=== PATIENT | female | born 1940 | race African-American/Black ===

== ENCOUNTER 2016-07-30 20:21 | Inpatient (IN) | payer MEDICARE, OTHER ==
[~2016-07-30] VITALS: Ht 160 cm; Wt 94.2 kg
[~2016-07-30 20:21] MED LIST: ALBU18HF IH; ALBU8.5H5 INH; ASPI325T32 PO; BECL8.7A5 INH; DIPH1TAB25 PO; FENO200 PO; FOLI-49 PO; GABA400C PO; HYDR-3498 PO; LANT10002 PO; METO-407 PO; NIFE90TA21 PO; PRED2.5T3 PO; PRED20TA PO; SEVE800T7 PO; SIMV40TA2 PO; SITA25TA3 PO
[2016-07-30] MEDS ORDERED: ASPIRIN 325 MG TAB PO STA (20:46)
[2016-07-30 21:49] LABS: ADD SCAN DIFF NO
[2016-07-30 21:51] LABS: BASOPHILS % 0.7 % (0.0-2.0); EOSINOPHILS % 0.4 % (0.0-7.0); HEMATOCRIT 35.5 % (37.0-47.0); HEMOGLOBIN 11.5 g/dl (12.0-16.0); LYMPHOCYTES # 0.9 10^3/ul (0.8-2.9); LYMPHOCYTES % 15.4 % (15.0-51.0); MEAN CORPUSCULAR HEMOGLOBIN 30.4 pg (29.0-33.0); MEAN CORPUSCULAR HGB CONC 32.4 g/dl (32.0-37.0); MEAN CORPUSCULAR VOLUME 93.9 fl (82.0-101.0); MEAN PLATELET VOLUME 10.9 fl (7.4-10.4); MONOCYTE # 0.2 10^3/ul (0.3-0.9); MONOCYTES % 4.2 % (0.0-11.0); NEUTROPHIL # 4.5 10^3/ul (1.6-7.5); NEUTROPHILS % 78.9 % (39.0-77.0); PLATELET COUNT 223 10^3/UL (140-415); RED BLOOD COUNT 3.78 10^6/ul (4.20-5.40); RED CELL DISTRIBUTION WIDTH 15.2 % (11.5-14.5); WHITE BLOOD COUNT 5.7 10^3/ul (4.8-10.8)
[2016-07-30 22:08] LABS: CREATININE 7.6 mg/dl (0.44-1.00)
[2016-07-30 22:11] LABS: POTASSIUM 5.5 mmol/L (3.5-5.1)
[2016-07-30 22:21] LABS: TROPONIN-I 0.038 ng/ml (0.00-0.12)
[2016-07-30] MEDS ORDERED: ACETAMINOPHEN 325 MG TAB PO PRN (23:00)
[2016-07-30] MEDS ORDERED: ONDANSETRON 4 MG INJ IV PRN (23:00)
--- NOTE | 2016-07-30 23:06 | RADRPT ---
PROCEDURE: Portable chest x-ray. CLINICAL INDICATION: Chest pain. TECHNIQUE: Portable AP view of the chest. COMPARISON: 04/20/2015. FINDINGS: Vascular congestion is stable to slightly increased. There is linear atelectasis in the left upper l bashir. The cardiac silhouette is enlarged. There are aortic calcifications. There is blunting of the left costophrenic angle. There is no pneumothorax. IMPRESSION: 1. Vascular congestion, stable to slightly increased since 04/20/2015. 2. Blunting of the left costophrenic angle, possibly representing prominent epicardial fat, pleural fluid, atelectasis, and/or pneumonia. 3. Enlarged cardiac silhouette and aortic atherosclerosis. RPTAT: HTAR .Cameron Price MD, Date Time Electronically viewed and signed by .Cameron Price MD, on 07/30/2016 23:06 .R/
--- NOTE | 2016-07-30 23:23 | ERA ---
ER Documentation Chief Complaint Date/Time DATE: 07/30/16 TIME: 23:20 Chief Complaint CP started approx 191. Pt has hx mitral valve replacement 2015 HPI This is a 75-year-old female who presents to the emergency room for evaluation of chest pain or shortness of breath. Patient states that she has chest pain and shortness of breath she was started on 7 PM tonight. She was seen at a previous emergency room and was discharged. She states that she does receive dialysis Monday, Monday, Monday and states that she did finish her dialysis on Monday. She states that she was told that she has water on her lungs. She states that her shortness of breath worsened and she came to the ER for evaluation. Her shortness of breath is worse when she lays flat. The chest pain is centralized chest pain with no radiation. ROS All systems reviewed and are negative except as per history of present illness. Medications Home Meds Active Scripts Albuterol Sulfate* (Albuterol Sulfate* HFA) 8.5 Gm Hfa.aer.ad, 1-2 PUFF INH Q4 Y for SHORTNESS OF BREATH, #1 EA Prov:MAG WANG DO 04/21/15 Prednisone* (Prednisone*) 20 Mg Tab, 40 MG PO DAILY for 4 Days, TAB Prov:MAG WANG DO 04/21/15 Reported Medications Albuterol Sulfate* (Ventolin HFA*) 18 Gm Hfa.aer.ad, 2 PUFF IH Q4H Y for WHEEZING AND RESP DISTRESS, EA 05/07/14 Beclomethasone Dip* (Qvar 80*) 7.3 Gm Inha, 1 PUFF INH BID, INH 05/07/14 Prednisone* (Prednisone*) 2.5 Mg Tablet, 2.5 MG PO DAILY, TAB 05/07/14 Hydrocodone Bit-Acetaminophen* ([place]*) 5-325 Mg Tab, 1-2 TAB PO Q4H Y for PAIN , TAB 05/07/14 Lanthanum Carbonate* (Fosrenol*) 1,000 Mg Tab.chew, 1000 MG PO TID W/ MEALS, TAB.CHEW WITH MEALS 05/07/14 Sitagliptin* (Januvia*) 25 Mg Tablet, 25 MG PO DAILY, TAB 05/07/14 Sevelamer Carbonate* (Renvela*) 800 Mg Tablet, 800 MG PO TID, TAB 05/07/14 Simvastatin* (Zocor*) 40 Mg Tablet, 40 MG PO HS, TAB 05/07/14 Nifedipine* (Nifedipine ER*) 90 Mg Tablet.sa, 90 MG PO BID, TAB.SA 05/07/14 Metoprolol Tartrate* (Lopressor*) 100 Mg Tablet, 100 MG PO BID, TAB 05/07/14 Gabapentin* (Neurontin*) 400 Mg Capsule, 800 MG PO HS, CAP 05/07/14 Folic Acid* (Folic Acid*) 1 Mg Tablet, 1 MG PO DAILY, TAB 05/07/14 Fenofibrate* (Fenofibrate*) 200 Mg Cap, 200 MG PO DAILY, CAP 05/07/14 Diphenoxylate Hcl-Atropine* (Lomotil*) 1 Tab Tab, 1 TAB PO Q6H Y for DIARRHEA, TAB 05/07/14 Aspirin* (Aspirin* EC) 325 Mg Tab, 325 MG PO DAILY, TAB 05/07/14 Allergies Allergies: Coded Allergies: No Known Allergy (Unverified , 12/24/15) pt states she has no known allergies PMhx/Soc History of Surgery: Yes (shunt right arm, hernia repair,hysterectomy) Anesthesia Reaction: No ( ) Hx 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 Disorder: No Hx Respiratory Disorders: Yes (sarcoidisis, nodule left lung) Hx Cardiac Disorders: Yes (htn, afib,cad, valve replacement) Hx Psychiatric Problems: No Hx Miscellaneous Medical Probl: No (renal failure w/ dialysis) Hx Alcohol Use: Yes (social) Hx Substance Use: No Hx Tobacco Use: No Smoking Status: Unknown if ever smoked Physical Exam Vitals Vital Signs Date Time Temp Pulse Resp B/P Pulse Ox O2 Delivery O2 Flow Rate FiO2 07/30/16 20:24 98.7 118 18 135/76 93 Physical Exam INITIAL VITAL SIGNS: Reviewed by me GENERAL: The patient is well developed and appropriate for usual state of health in no apparent distress HEENT: Pupils equal, round, and reactive to light. EOMI. There is no scleral icterus. NECK: C-spine is soft and supple, there is no meningismus. There is no cervical lymphadenopathy. LUNGS: Coarse breath sounds bilaterally. There are no rales, wheezes or rhonchi. HEART: Irregularly irregular rhythm, 2/6 holosystolic murmur heard at the left sternal border , clicks, rubs or gallops. ABDOMEN: Soft, non-tender, non-distended. There are bowel sounds in all four quadrants. No rebound or guarding. EXTREMITIES: There is no peripheral cyanosis or edema. No focal swelling or erythema. NEUROLOGICAL: The patient moves all four extremities with 5/5 strength. Cranial nerves II - XII are intact. Normal gait. Alert and oriented SKIN: There is no apparent rash or petechiae. HEME/LYMPHATIC: There is no evidence of excessive bruising or lymphedema. PSYCHIATRIC: The patient does not appear anxious or depressed. Result Diagram: 07/30/16213907/30/162139 Results 24 hrs Laboratory Tests Test 07/30/16 21:40 White Blood Count 5.710^3/ul Red Blood Count 3.7810^6/ul Hemoglobin 11.5g/dl Hematocrit 35.5% Mean Corpuscular Volume 93.9fl Mean Corpuscular Hemoglobin 30.4pg Mean Corpuscular Hemoglobin Concent 32.4g/dl Red Cell Distribution Width 15.2% Platelet Count 10472^3/UL Mean Platelet Volume 10.9fl Neutrophils % 78.9% Lymphocytes % 15.4% Monocytes % 4.2% Eosinophils % 0.4% Basophils % 0.7% Nucleated Red Blood Cells % 0.0/100WBC Neutrophils # 4.510^3/ul Lymphocytes # 0.910^3/ul Monocytes # 0.210^3/ul Eosinophils # 0.010^3/ul Basophils # 0.010^3/ul Nucleated Red Blood Cells # 0.010^3/ul Sodium Level 142mmol/L Potassium Level 5.5mmol/L Chloride Level 103mmol/L Carbon Dioxide Level 29mmol/L Anion Gap 16 Blood Urea Nitrogen 56mg/dl Creatinine 7.60mg/dl Glucose Level 215mg/dl Calcium Level 9.0mg/dl Troponin I 0.038ng/ml B-Type Natriuretic Peptide 31656FC/ML Current Medications Medications (Trade) Dose Ordered Sig/Oneyda Route PRN Reason Start Time Stop Time Status Last Admin Dose Admin Aspirin (Aspirin) 325 mg ONCE STAT PO 07/30/16 20:46 07/30/16 20:48 DC 07/30/16 21:27 Ondansetron HCl (Zofran Inj) 4 mg ER BRIDGE PRN IV NAUSEA AND/OR VOMITING 07/30/16 23:00 07/31/16 22:59 Acetaminophen (Tylenol Tab) 650 mg ER BRIDGE PRN PO MILD PAIN/FEVER 07/30/16 23:00 07/31/16 22:59 Procedures/MDM Chest X-ray 1V Interpreted by me: Soft Tissue: Pulmonary vascular congestion with bilateral pleural effusions Bones: No acute abnormalities Mediastinum/Cardiac Silhouette/Lungs: [No acute abnormalities] EKG: Rate/Rhythm: Atrial fibrillation QRS, ST, T-waves: [No changes consistent w/ acute ischemia] Impression: [No evidence of ischemia or arrhythmia] This 75-year-old female presents to the ER for evaluation of chest pain or shortness of breath. She is a dialysis patient, and did complete dialysis on Monday. This patient has had a mitral valve replacement. When I evaluated her she was tachycardic, had a pulse ox of 91%. This patient was placed on 2 L nasal cannula with resolution of her mild hypoxia. Chest x-ray did confirm my suspicion of pulmonary vascular congestion and pleural effusions. This patient will need to be admitted to the hospital for cardiac workup, and for dialysis for removal of excess fluid. She is in no respiratory distress at this time. I have updated the patient and the patient's family. This patient will be admitted under the care of Dr. Welsh. Atrial fibrillation is rate controlled and she is on Coumadin. Departure Diagnosis: Primary Impression: Chest pain Additional Impressions: Bilateral pleural effusion Hypertension associated with chronic kidney disease due to type 2 diabetes mellitus Diabetes mellitus type 2 in obese Condition: Stable VICKEY FAULKNER DO Jul 30, 2016 23:23
[2016-07-30 23:28] LABS: INR 3.12; PT RATIO 2.5
[2016-07-30 23:29] LABS: PARTIAL THROMBOPLASTIN TIME 46.1 Sec (25.0-35.0)
[2016-07-31] VITALS (22 sets, daily range): BP systolic 80–154; BP diastolic 38–74; PULSE 74–104; RESP 18–20; Ht 160 cm; Wt 94.2 kg
[2016-07-31] MEDS ORDERED: BISACODYL (EC) 5 MG TAB PO PRN
[2016-07-31] MEDS ORDERED: ONDANSETRON 4 MG INJ IV PRN
[2016-07-31] MEDS ORDERED: NACL 0.9% 3 ML SYG IV SCH
[2016-07-31] MEDS ORDERED: DOCUSATE SODIUM 100 MG CAP PO PRN
[2016-07-31] MEDS ORDERED: BISACODYL 10 MG SUPP PR PRN
[2016-07-31] MEDS ORDERED: ALBUTEROL 0.083% (NEB) 2.5 MG/3 ML AMP NEB PRN
[2016-07-31] MEDS ORDERED: NA PHOSPHATE/BIPHOS 133 ML ENEMA PR PRN
[2016-07-31] MEDS ORDERED: HYDROCODONE/APAP (5/325) TAB PO PRN
[2016-07-31] MEDS ORDERED: DIPHENOXYLATE/ATROPINE TAB PO PRN
[2016-07-31 00:06] LABS: PROTIME 32.7 Sec (12.2-14.2)
[2016-07-31] MEDS ORDERED: GLUCOSE GEL 15 GRAM TUBE PO PRN ×2 (00:30)
[2016-07-31] MEDS ORDERED: GLUCOSE GEL 15 GRAM TUBE BUCCAL PRN (00:30)
[2016-07-31] MEDS ORDERED: DEXTROSE 50% 50 ML SYRINGE IV PRN ×2 (00:30)
[2016-07-31] MEDS ORDERED: GLUCAGON 1 MG INJ IM PRN (00:30)
[2016-07-31] MEDS: ACCUCHECK AT 2AM (Patients on SS coverage) XX SCH (01:35)
[2016-07-31] MEDS: HYDROmorphONE 1 MG/ML SYG IV PRN (02:20)
[2016-07-31 03:49] LABS: ADD SCAN DIFF NO
[2016-07-31 03:51] LABS: BASOPHILS % 0.6 % (0.0-2.0); EOSINOPHILS % 0.6 % (0.0-7.0); HEMATOCRIT 32.7 % (37.0-47.0); HEMOGLOBIN 10.7 g/dl (12.0-16.0); LYMPHOCYTES # 1.8 10^3/ul (0.8-2.9); LYMPHOCYTES % 27.4 % (15.0-51.0); MEAN CORPUSCULAR HEMOGLOBIN 30.3 pg (29.0-33.0); MEAN CORPUSCULAR HGB CONC 32.7 g/dl (32.0-37.0); MEAN CORPUSCULAR VOLUME 92.6 fl (82.0-101.0); MEAN PLATELET VOLUME 10.9 fl (7.4-10.4); MONOCYTE # 0.5 10^3/ul (0.3-0.9); MONOCYTES % 6.8 % (0.0-11.0); NEUTROPHIL # 4.2 10^3/ul (1.6-7.5); NEUTROPHILS % 64.3 % (39.0-77.0); PLATELET COUNT 203 10^3/UL (140-415); RED BLOOD COUNT 3.53 10^6/ul (4.20-5.40); RED CELL DISTRIBUTION WIDTH 15.1 % (11.5-14.5); WHITE BLOOD COUNT 6.6 10^3/ul (4.8-10.8)
[2016-07-31 04:22] LABS: ALBUMIN 3.4 g/dl (3.3-4.9)
[2016-07-31 04:23] LABS: POTASSIUM 5.7 mmol/L (3.5-5.1)
[2016-07-31 04:25] LABS: ALBUMIN/GLOBULIN RATIO 0.94; CREATININE 8.5 mg/dl (0.44-1.00)
[2016-07-31 04:26] LABS: CHOL/HDL RATIO 1.6 RATIO; PHOSPHORUS 7.2 mg/dl (2.5-4.9)
[2016-07-31 04:32] LABS: CK-MB 1.67 ng/ml (0.0-2.4)
[2016-07-31 04:36] LABS: TROPONIN-I 0.064 ng/ml (0.00-0.12)
[2016-07-31] MEDS ORDERED: ALBUTEROL/IPRATROPIUM (NEB) 3 ML AMP HHN PRN (06:30)
[2016-07-31] MEDS ORDERED: COU2 PO (06:50)
[2016-07-31] MEDS: INSULIN ASPART [NOVOLOG] 3 ML PEN SC SCH ×4 (08:00→21:00)
[2016-07-31] MEDS: MOMETASONE 0.24 GM INHALER INH SCH ×2 (08:47→21:35)
[2016-07-31] MEDS: HYDROCODONE/APAP (5/325) TAB PO PRN ×2 (08:48→19:33)
[2016-07-31] MEDS: FENOFIBRATE 48 MG TAB PO SCH (08:48)
[2016-07-31] MEDS: LINAGLIPTIN 5 MG TABLET PO SCH (08:48)
[2016-07-31] MEDS: predniSONE 10 MG TAB PO SCH (08:48)
[2016-07-31] MEDS: FOLIC ACID 1 MG TAB PO SCH (08:48)
[2016-07-31] MEDS: LANTHANUM 500 MG CHEW PO SCH ×3 (09:00→17:32)
[2016-07-31] MEDS ORDERED: HEPARIN 5,000 UNIT/0.5 ML VIAL SC SCH (09:00)
[2016-07-31] MEDS ORDERED: NIFEdipine (XL) 90 MG TAB PO SCH (09:00)
[2016-07-31] MEDS ORDERED: METOPROLOL 100 MG TAB PO SCH (09:00)
[2016-07-31] MEDS ORDERED: predniSONE 20 MG TAB PO SCH (09:00)
[2016-07-31] MEDS ORDERED: predniSONE 2.5 MG TAB PO SCH (09:00)
[2016-07-31] MEDS ORDERED: SEVELAMER CARBONATE 0.8 GM PKT PO SCH (09:00)
[2016-07-31] MEDS: NIFEdipine (XL) 90 MG TAB PO SCH (09:00)
[2016-07-31] MEDS ORDERED: LANTHANUM CARBONATE 1,000 MG CHEW PO SCH (09:00)
[2016-07-31] MEDS ORDERED: ASPIRIN (EC) 325 MG TAB PO SCH (09:00)
[2016-07-31] MEDS: METOPROLOL (XL) 25 MG TAB PO SCH ×2 (09:00→21:35)
[2016-07-31] MEDS ORDERED: BECLOMETHASONE DIP INH SCH (09:00)
--- NOTE | 2016-07-31 10:38 | CONS ---
DATE OF ADMISSION: 07/30/2016 DATE OF CONSULTATION: 07/31/2016 NEPHROLOGY CONSULTATION PRIMARY PHYSICIAN: Dr. Welsh Thank you very much, Dr. Welsh, for allowing me to participate in the care of your patient. HISTORY OF PRESENT ILLNESS: This is a 75-year-old female with known end-stage renal disease due to diabetes and hypertension, currently maintained on outpatient hemodialysis every Monday, Monday, and Monday, who is now admitted with atypical chest pain and shortness of breath. As stated, the patient is on chronic dialysis and is compliant. Her last treatment was 2 days ago o n Monday, but it is unclear if she reached her dry weight. Yesterday she presented to the [place] ER with some vague chest pain. The ER doctor called me. He felt she was stable to be discharged. She then presented later that same day, yesterday, to the [facility] ER again complaining o f atypical chest pain associated with some shortness of breath. Chest x-ray here in the ER last night did show findings consistent with pulmonary edema. Laboratori es revealed no leukocytosis, hemoglobin of 10.7, and potassium of 5.7. Liver tests were normal. Troponin was unremarkable as was electrocardiogram. It should be noted, the patient is status post a recent TAVR procedure for aortic stenosis over at [facility] in March of last year and as well has relatively new onset atrial fibrillation, rate contro lled and maintained on outpatient Coumadin. She currently is on the floor in no acute distress but requiring nasal O2 to keep her sats in the mi d 90s. PAST MEDICAL HISTORY: Please see full dictated problem list. ALLERGIES: NONE. HABITS: Tobacco: None. Alcohol: None. CURRENT MEDICATIONS: 1. Aspirin given once. She does take daily aspirin 325 mg a day. 2. Lipitor 40 mg a day. 3. Tricor 48 mg a day. 4. Folic acid 1 mg a day. 5. Gabapentin 800 mg at bedtime. 6. Fosrenol 1000 mg t.i.d. with meals. 7. Tradjenta 5 mg daily. 8. Metoprolol 25 mg b.i.d. None on dialysis days. 9. Nifedipine 90 mg daily. None on dialysis days. 10. Prednisone 10 mg a day. 11. Coumadin I believe 2 mg daily. REVIEW OF SYSTEMS: As per HPI. PHYSICAL EXAMINATION: GENERAL: Awake and alert woman currently in no acute distress. VITAL SIGNS: She is afebrile. Blood pressure 120/50, heart rate is in the 70s in controlled atrial fibrillation, respirations are 12 and unlabored, O2 saturation is 98% on 2 liters. SKIN: Warm, well perfused. HEAD: Normocephalic, atraumatic. EYES: Pupils are round and reactive. Extraocular movements appear full. Sclerae are anicteric. PHARYNX: No lesions. NECK: JVP not distended. BACK: No CVAT. LUNGS: Show diminished breath sounds at the bases. HEART: S1, S2, irregularly irregular but rate controlled with a soft II/ systolic murmur. ABDOMEN: Soft and nontender. EXTREMITIES: No cyanosis, clubbing. There is 1+ pitting edema. She has a well-functioning AV fist merissa in the right upper extremity. IMAGING: Chest x-ray again shows some vascular congestion. LABORATORY DATA: White count 6.6, hemoglobin 10.7, hematocrit 32.7, platelet count 203,000. INR is 3.1. Sodium 144, potassium 5.7, chloride 105, bicarbonate 28, BUN 66, creatinine 8.5, glucose 120. Hemoglobin A1c 5.6. Calcium 9.0, phosphorus 7.2, AST 24, ALT 16, alkaline phosphatase 36, total p rotein 7, albumin is 3.4. Total cholesterol was 85. Troponin is 0.064. PROBLEM LIST: 1. End-stage renal disease maintained on outpatient hemodialysis every Monday, Monday, and . 2. Mild congestive heart failure. 3. Aortic stenosis status post TAVR at [facility] in March of 2016. 4. Atrial fibrillation postop, rate controlled, maintained on Coumadin. 5. Hypertension, currently well controlled. 6. Diabetes mellitus, well controlled. 7. History of sarcoid maintained on low-dose prednisone. 8. Chronic obstructive pulmonary disease. 9. Anemia in chronic kidney disease. RECOMMENDATIONS: 1. We will dialyze today to remove fluid. 2. Continue Coumadin. 3. Further recommendations pending response to above. Dictated By: NICO HAY MD, MM/CORNELIUS Conf#: [id number] DID#: [id number]
[2016-07-31 11:27] LABS: CK-MB 1.33 ng/ml (0.0-2.4); TROPONIN-I 0.043 ng/ml (0.00-0.12)
--- NOTE | 2016-07-31 12:13 | HP ---
Date/Time of Note Date/Time of Note DATE: 07/31/16 TIME: 11:56 Assessment/Plan VTE Prophylaxis VTE Prophylaxis Intervention: heparin Lines/Catheters IV [facility] [place] [facility] Urinary Cath still in place: No Assessment/Plan Problems: (1) Bilateral pleural effusion Status: Acute Comment: Dialyze per nephrology to remove excess fluid (2) Chest pain at rest Status: Acute Comment: Dialyze per nephrology to remove excess fluid (3) Volume overload Status: Acute Comment: Dialyze per nephrology to remove excess fluid (4) Hypoxia Status: Acute Comment: Dialyze per nephrology to remove excess fluid (5) COPD (chronic obstructive pulmonary disease) Status: Chronic Comment: Cont. inhalers as needed (6) Sarcoidosis Status: Chronic Comment: Cont. prednisone (7) ESRD (end stage renal disease) on dialysis Status: Chronic Comment: HD as per nephrology (8) Diabetes mellitus type 2 in obese Status: Chronic Comment: Cont. DPP-IV-i (linagliptin on formulary) and follow BG results (9) Hypertension associated with chronic kidney disease due to type 2 diabetes mellitus Status: Chronic Comment: Cont. home antihypertensive therapy (10) Hyperlipidemia Status: Chronic Comment: Cont. statin and fenofibrate HPI/ROS Admit Date/Time Admit Date/Time Jul 30, 2016 at 22:58 Hx of Present Illness 75 y/o AA F w/ h/o COPD, sarcoidosis, ESRD, T2DM, HTN, hyperlipidemia, CAD s/p stent, diverticulosis, aortic stenosis, LBBB, YOANA, diastolic dysfunction, colonic AVM, who gets HD regularly qMWF in [facility] until yesterday when she awoke w / CP. Went to [facility] and was evaluated there. Was felt to be ok to be d/c'ed home. Case was d/w her regular superintendent nonselling. However, last night symptoms worsened and pt. went to [facility] where she was found to have resting O2 sat of 91 %. CXR showed congestion, and pleural effusions. BNP elevated. Potassium 5.5. Pt. admitted to resume HD. Now c/o muscle cramps which occur when she gets more than 2 L removed. ROS Constitutional: no complaints Eyes: no complaints ENT: no complaints Respiratory: shortness of breath Cardiovascular: chest pain, edema, orthopenea Gastrointestinal: no complaints Genitourinary: no complaints Musculoskeletal: other (cramping), swelling Neurologic: other (neuropathic pains in legs) PMH/Family/Social Past Medical History Medical History: coronary artery disease, deep vein thrombosis (in L neck), diabetes, GI bleed, high cholesterol, hypertension, renal disease, other (COPD, sarcoidosis, diverticulosis, aortic stenosis, LBBB, YOANA, diastolic dysfunction, colonic AVM) Past Surgical History Past Surgical Hx: angioplasty, other (RICH with unilateral salpingo-oophorectomy , eye surgery, AV fistula placement) Family History Significant Family History: no pertinent family hx Social History She was born in [place] and raised there. She has a high school education without experience. 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 She is a divorcee who lives alone, but has an actively involved extended family Alcohol Use: rarely Smoking Status: Never smoker Drug Use: none Exam/Review of Systems Vital Signs Vitals VS - Last 72 Hours, by Label Date Time Temp Pulse Resp B/P Pulse Ox O2 Delivery O2 Flow Rate FiO2 07/31/16 11:53 98.2 86 20 100/45 98 07/31/16 11:30 80 07/31/16 11:00 76 07/31/16 10:30 76 07/31/16 10:13 2.0 07/31/16 10:13 91 16 97 Nasal Cannula 2.0 07/31/16 10:00 76 07/31/16 09:45 81 07/31/16 09:30 80 20 07/31/16 09:30 80 07/31/16 08:22 97.8 94 20 119/54 98 07/31/16 08:08 86 07/31/16 04:26 97.5 93 19 131/60 99 07/31/16 04:16 78 07/31/16 03:03 2.0 07/31/16 03:03 2.0 07/31/16 01:30 Nasal Cannula 2.0 07/31/16 01:01 104 07/31/16 01:00 98.7 98 20 154/74 93 07/31/16 00:10 97 18 151/78 96 Nasal Cannula 2.0 07/30/16 22:15 87 19 131/61 97 Room Air 07/30/16 20:24 98.7 118 18 135/76 93 Vital Signs Date Time Temp Pulse Resp B/P Pulse Ox O2 Delivery O2 Flow Rate FiO2 07/31/16 11:53 98.2 86 20 100/45 98 07/31/16 10:13 2.0 07/31/16 10:13 Nasal Cannula Intake and Output 07/30/16 07/30/16 07/31/16 15:00 23:00 07:00 Intake Total 200 ml Balance 200 ml Exam Constitutional: alert, distress (from pain), other (obese) Psych: anxiety Eyes: EOMI, PERRL, nl conjunctiva, nl lids, nl sclera ENMT: mucosa pink and moist, nl external ears & nose Neck: non-tender, supple, No bruits, No masses, No thyromegaly Respiratory: diminished breath sounds Cardiovascular: edema (1+ BLE), regular rate and rhythm, No murmurs/extra sounds, No rub Gastrointestinal: bowel sounds, nl liver, spleen, non-tender, soft, No mass, No rebound or guarding Musculoskeletal: nl extremities to inspection Extremities: edema (1+ BLE), No clubbing, No cyanosis 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: BLOCKER AND POLISHER GOLD WHEEL II-XII intact, nl mental status, nl speech, nl strength Additional Comments Bedside Glucose - 72 Hours Test 07/31/16 01:32 07/31/16 08:11 Bedside Glucose 113mg/dL (70-220) 77mg/dL (70-220) Labs Result Diagram: 07/31/16 0335 07/31/16 0335 Medications Medications Current Medications Aspirin (Ecotrin) 325 mg DAILY PO ; Start 07/31/16 at 09:00; Status Future Hold Diphenoxylate HCl/ Atropine (Lomotil) 1 tab Q6H PRN PO DIARRHEA; Start at 00:00 Folic Acid (Folic Acid) 1 mg DAILY PO Last administered on 07/31/16 08:48; Admin Dose 1 MG; Start 07/31/16 at 09:00 Gabapentin (Neurontin) 800 mg HS PO ; Start 07/31/16 at 21:00 Acetaminophen/ Hydrocodone Bitart ([place] (5/325)) 1 tab Q4H PRN PO PAIN Last administered on 07/31/16 08:48; Admin Dose 1 TAB; Start 07/31/16 at 00:00 Fenofibrate (Tricor) 48 mg DAILY PO Last administered on 07/31/16 08:48; Admin Dose 48 MG; Start 07/31/16 at 09:00 Atorvastatin Calcium (Lipitor) 40 mg QHS PO ; Start 07/31/16 at 21:00 Linagliptin (Tradjenta) 5 mg DAILY PO Last administered on 07/31/16 08:48; Admin Dose 5 MG; Start 07/31/16 at 09:00 Lorazepam (Ativan) 0.5 mg Q8H PRN PO ANXIETY; Start 07/31/16 at 00:00 Ondansetron HCl (Zofran Inj) 4 mg Q6H PRN IV NAUSEA AND/OR VOMITING; Start at 00:00 Acetaminophen/ Hydrocodone Bitart ([place] (5/325)) 2 tab Q6H PRN PO PAIN LEVEL 7 -10; Start 07/31/16 at 00:00 Hydromorphone HCl (Dilaudid) 0.5 mg Q4H PRN IV PAIN LEVEL 7-10 Last administered on 07/31/16 02:20; Admin Dose 0.5 MG; Start 07/31/16 at 00:00 Docusate Sodium (Colace) 100 mg Q12H PRN PO CONSTIPATION; Start 07/31/16 at 00: 00 Bisacodyl (Dulcolax) 5 mg DAILY PRN PO CONSTIPATION; Start 07/31/16 at 00:00 Bisacodyl (Dulcolax Supp) 10 mg DAILY PRN [place] CONSTIPATION; Start 07/31/16 at 00 :00 Sodium Biphosphate/ Sodium Phosphate (Fleet Enema) 133 ml DAILY PRN [place] CONSTIPATION; Start 07/31/16 at 00:00 Diagnostic Test (Pha) (Accu-Chek) 1 ea 02 XX Last administered on 07/31/16 01: 35; Admin Dose 1 EA; Start 07/31/16 at 02:00 Miscellaneous Information 1 ea NOTE XX ; Start 07/31/16 at 00:30 Glucose (Glutose) 15 gm Q15M PRN PO DECREASED GLUCOSE; Start 07/31/16 at 00:30 Glucose (Glutose) 22.5 gm Q15M PRN PO DECREASED GLUCOSE; Start 07/31/16 at 00: 30 Dextrose (D50w Syringe) 25 ml Q15M PRN IV DECREASED GLUCOSE; Start 07/31/16 at 00:30 Dextrose (D50w Syringe) 50 ml Q15M PRN IV DECREASED GLUCOSE; Start 07/31/16 at 00:30 Glucagon (Glucagen) 1 mg Q15M PRN IM DECREASED GLUCOSE; Start 07/31/16 at 00:30 Glucose (Glutose) 15 gm Q15M PRN BUCCAL DECREASED GLUCOSE; Start 07/31/16 at 00 :30 Mometasone Furoate (Asmanex) 1 puff BID INH Last administered on 07/31/16 08: 47; Admin Dose 1 PUFF; Start 07/31/16 at 09:00 Nifedipine (Procardia Xl) 90 mg DAILY PO ; Start 07/31/16 at 09:00 Metoprolol Succinate (Toprol Xl) 25 mg BID PO ; Start 07/31/16 at 09:00 Prednisone (Prednisone) 10 mg DAILY PO Last administered on 07/31/16 08:48; Admin Dose 10 MG; Start 07/31/16 at 09:00 SOBEIDA ENRIQUEZ MD Jul 31, 2016 12:06
[2016-07-31] MEDS: GABAPENTIN 400 MG CAP PO SCH (21:34)
[2016-07-31] MEDS: ATORVASTATIN 40 MG TAB PO SCH (21:34)
[2016-08-01] VITALS (19 sets, daily range): BP systolic 94–138; BP diastolic 47–65; PULSE 68–85; RESP 18–20
[2016-08-01] MEDS: ACCUCHECK AT 2AM (Patients on SS coverage) XX SCH (01:08)
[2016-08-01 07:33] LABS: ADD SCAN DIFF NO
[2016-08-01 07:37] LABS: BASOPHIL # 0.1 10^3/ul (0.0-0.1); BASOPHILS % 0.8 % (0.0-2.0); EOSINOPHILS # 0.1 10^3/ul (0.0-0.5); EOSINOPHILS % 2.1 % (0.0-7.0); HEMATOCRIT 31.8 % (37.0-47.0); HEMOGLOBIN 10.2 g/dl (12.0-16.0); LYMPHOCYTES # 2.3 10^3/ul (0.8-2.9); LYMPHOCYTES % 36.2 % (15.0-51.0); MEAN CORPUSCULAR HEMOGLOBIN 29.8 pg (29.0-33.0); MEAN CORPUSCULAR HGB CONC 32.1 g/dl (32.0-37.0); MEAN PLATELET VOLUME 10.9 fl (7.4-10.4); MONOCYTE # 0.6 10^3/ul (0.3-0.9); MONOCYTES % 9.2 % (0.0-11.0); NEUTROPHIL # 3.2 10^3/ul (1.6-7.5); NEUTROPHILS % 51.4 % (39.0-77.0); PLATELET COUNT 199 10^3/UL (140-415); RED BLOOD COUNT 3.42 10^6/ul (4.20-5.40); WHITE BLOOD COUNT 6.3 10^3/ul (4.8-10.8)
[2016-08-01 07:50] LABS: INR 3.54; PT RATIO 2.8
[2016-08-01 07:54] LABS: POTASSIUM 5.1 mmol/L (3.5-5.1)
[2016-08-01 07:57] LABS: CREATININE 8.52 mg/dl (0.44-1.00)
[2016-08-01 07:58] LABS: CALCIUM 8.8 mg/dl (8.4-10.2)
[2016-08-01] MEDS: INSULIN ASPART [NOVOLOG] 3 ML PEN SC SCH ×4 (08:00→21:00)
--- NOTE | 2016-08-01 08:05 | CONS ---
Date/Time of Note Date/Time of Note DATE: 08/01/16 TIME: 08:01 Assessment/Plan Assessment/Plan Problems: (1) COPD (chronic obstructive pulmonary disease) Status: Chronic Comment: stable (2) Sarcoidosis Status: Chronic Comment: on prednisone... quiet (3) ESRD (end stage renal disease) on dialysis Status: Chronic Comment: for HD w UF today (4) Aortic stenosis Status: Chronic Comment: s/p TAVR 04/01 (5) Volume overload Status: Acute Comment: will attempt further UF today w HD Consultation Date/Type/Reason Admit Date/Time Jul 30, 2016 at 22:58 Initial Consult Date Type of Consultation: neph 24 HR Interval Summary Free Text/Dictation less SOB...but cramped yesterday w fluid removal Constitutional: improved Exam/Review of Systems Vital Signs Vitals Vital Signs Date Time Temp Pulse Resp B/P Pulse Ox O2 Delivery O2 Flow Rate FiO2 08/01/16 07:32 98.4 86 20 138/63 96 08/01/16 02:58 2.0 07/31/16 10:13 Nasal Cannula Intake and Output 07/31/16 07/31/16 08/01/16 15:00 23:00 07:00 Intake Total 500 ml 360 ml 360 ml Output Total 2500 ml 2000 ml Balance -2000 ml -1640 ml 360 ml Exam Constitutional: alert Psych: no complaints Neck: supple Respiratory: clear to auscultation Cardiovascular: irregular rhythm Gastrointestinal: soft Extremities: edema (1+) Results Result Diagram: 08/01/16 0633 08/01/16 0633 Results 24 hrs Laboratory Tests Test 07/31/16 08:11 07/31/16 10:20 07/31/16 12:28 07/31/16 17:21 Bedside Glucose 77 92 131 Creatine Kinase 22 L Creatine Kinase Index 6.0 Creatinine Kinase MB (Mass) 1.33 Troponin I 0.043 Test 07/31/16 21:39 08/01/16 06:33 Bedside Glucose 127 White Blood Count 6.3 Red Blood Count 3.42 L Hemoglobin 10.2 L Hematocrit 31.8 L Mean Corpuscular Volume 93.0 Mean Corpuscular Hemoglobin 29.8 Mean Corpuscular Hemoglobin Concent 32.1 Red Cell Distribution Width 15.0 H Platelet Count 199 Mean Platelet Volume 10.9 H Neutrophils % 51.4 Lymphocytes % 36.2 Monocytes % 9.2 Eosinophils % 2.1 Basophils % 0.8 Nucleated Red Blood Cells % 0.0 Neutrophils # 3.2 Lymphocytes # 2.3 Monocytes # 0.6 Eosinophils # 0.1 Basophils # 0.1 Nucleated Red Blood Cells # 0.0 Prothrombin Time Pending Prothrombin Time Ratio 2.8 INR International Normalized Ratio 3.54 Sodium Level 139 Potassium Level 5.1 Chloride Level 100 Carbon Dioxide Level 27 Anion Gap 17 H Blood Urea Nitrogen 64 H Creatinine 8.52 H Glucose Level 79 # Calcium Level 8.8 Medications Medications Current Medications Aspirin (Ecotrin) 325 mg DAILY PO ; Start 07/31/16 at 09:00; Status Future Hold Diphenoxylate HCl/ Atropine (Lomotil) 1 tab Q6H PRN PO DIARRHEA; Start at 00:00 Folic Acid (Folic Acid) 1 mg DAILY PO Last administered on 07/31/16 08:48; Admin Dose 1 MG; Start 07/31/16 at 09:00 Gabapentin (Neurontin) 800 mg HS PO Last administered on 07/31/16 21:34; Admin Dose 800 MG; Start 07/31/16 at 21:00 Acetaminophen/ Hydrocodone Bitart ([place] (5/325)) 1 tab Q4H PRN PO PAIN Last administered on 07/31/16 19:33; Admin Dose 1 TAB; Start 07/31/16 at 00:00 Fenofibrate (Tricor) 48 mg DAILY PO Last administered on 07/31/16 08:48; Admin Dose 48 MG; Start 07/31/16 at 09:00 Atorvastatin Calcium (Lipitor) 40 mg QHS PO Last administered on 07/31/16 21: 34; Admin Dose 40 MG; Start 07/31/16 at 21:00 Linagliptin (Tradjenta) 5 mg DAILY PO Last administered on 07/31/16 08:48; Admin Dose 5 MG; Start 07/31/16 at 09:00 Lorazepam (Ativan) 0.5 mg Q8H PRN PO ANXIETY; Start 07/31/16 at 00:00 Ondansetron HCl (Zofran Inj) 4 mg Q6H PRN IV NAUSEA AND/OR VOMITING; Start at 00:00 Acetaminophen/ Hydrocodone Bitart ([place] (5/325)) 2 tab Q6H PRN PO PAIN LEVEL 7 -10; Start 07/31/16 at 00:00 Hydromorphone HCl (Dilaudid) 0.5 mg Q4H PRN IV PAIN LEVEL 7-10 Last administered on 07/31/16 02:20; Admin Dose 0.5 MG; Start 07/31/16 at 00:00 Docusate Sodium (Colace) 100 mg Q12H PRN PO CONSTIPATION; Start 07/31/16 at 00: 00 Bisacodyl (Dulcolax) 5 mg DAILY PRN PO CONSTIPATION; Start 07/31/16 at 00:00 Bisacodyl (Dulcolax Supp) 10 mg DAILY PRN [place] CONSTIPATION; Start 07/31/16 at 00 :00 Sodium Biphosphate/ Sodium Phosphate (Fleet Enema) 133 ml DAILY PRN IN CONSTIPATION; Start 07/31/16 at 00:00 Diagnostic Test (Pha) (Accu-Chek) 1 ea 02 XX Last administered on 07/31/16 01: 35; Admin Dose 1 EA; Start 07/31/16 at 02:00 Miscellaneous Information 1 ea NOTE XX ; Start 07/31/16 at 00:30 Glucose (Glutose) 15 gm Q15M PRN PO DECREASED GLUCOSE; Start 07/31/16 at 00:30 Glucose (Glutose) 22.5 gm Q15M PRN PO DECREASED GLUCOSE; Start 07/31/16 at 00: 30 Dextrose (D50w Syringe) 25 ml Q15M PRN IV DECREASED GLUCOSE; Start 07/31/16 at 00:30 Dextrose (D50w Syringe) 50 ml Q15M PRN IV DECREASED GLUCOSE; Start 07/31/16 at 00:30 Glucagon (Glucagen) 1 mg Q15M PRN IM DECREASED GLUCOSE; Start 07/31/16 at 00:30 Glucose (Glutose) 15 gm Q15M PRN BUCCAL DECREASED GLUCOSE; Start 07/31/16 at 00 :30 Mometasone Furoate (Asmanex) 1 puff BID INH Last administered on 07/31/16 21: 35; Admin Dose 1 PUFF; Start 07/31/16 at 09:00 Nifedipine (Procardia Xl) 90 mg DAILY PO ; Start 07/31/16 at 09:00 Metoprolol Succinate (Toprol Xl) 25 mg BID PO Last administered on 07/31/16 21 :35; Admin Dose 25 MG; Start 07/31/16 at 09:00 Prednisone (Prednisone) 10 mg DAILY PO Last administered on 07/31/16 08:48; Admin Dose 10 MG; Start 07/31/16 at 09:00 NICO HAY MD Aug 01, 2016 08:04
--- NOTE | 2016-08-01 08:19 | RADRPT ---
PROCEDURE: XR Chest. CLINICAL INDICATION: Shortness of breath. TECHNIQUE: Single frontal view. COMPARISON: 07/30/2016. FINDINGS: There is left basilar atelectasis, unchanged. The lungs are otherwise clear. The heart is enlarged. There is calcification in the aorta consistent with atherosclerosis. There is a trans arterial aortic valve replacement. There is no pleural effusion. There is no pneumothorax. IMPRESSION: 1. Left basilar atelectasis, unchanged. 2. Cardiomegaly and atherosclerosis. 3. Trans arterial aortic valve replacement. RPTAT: QQ .Mp Fields MD, MD Date Time Electronically viewed and signed by .Mp Fields MD, MD on 08/01/2016 08:18 .R/
[2016-08-01] MEDS ORDERED: ALBUMIN HUMAN 25% 50 ML IV ONE (08:30)
[2016-08-01] MEDS: MOMETASONE 0.24 GM INHALER INH SCH ×2 (09:45→23:24)
[2016-08-01] MEDS: METOPROLOL (XL) 25 MG TAB PO SCH ×2 (09:48→21:29)
[2016-08-01] MEDS: FOLIC ACID 1 MG TAB PO SCH (09:48)
[2016-08-01] MEDS: FENOFIBRATE 48 MG TAB PO SCH (09:49)
[2016-08-01] MEDS: LANTHANUM 500 MG CHEW PO SCH ×3 (09:49→18:03)
[2016-08-01] MEDS: predniSONE 10 MG TAB PO SCH (09:50)
[2016-08-01] MEDS: NIFEdipine (XL) 90 MG TAB PO SCH (09:50)
[2016-08-01] MEDS: LINAGLIPTIN 5 MG TABLET PO SCH (09:52)
--- NOTE | 2016-08-01 19:03 | PN ---
Date/Time of Note Date/Time of Note DATE: 08/01/16 TIME: 18:59 Assessment/Plan VTE Prophylaxis VTE Prophylaxis Intervention: LMWH Lines/Catheters IV [facility] (from [facility] Saline Lock Urinary Cath still in place: No Assessment/Plan Problems: (1) ESRD (end stage renal disease) on dialysis Status: Chronic Comment: Need nephrology input about how best to deal with dialysis associated symptoms that are limiting therapeutics (2) Sarcoidosis Status: Chronic Comment: stable and quiescent (3) COPD (chronic obstructive pulmonary disease) Status: Chronic Comment: stable, has volume overload Qualifiers: COPD type: emphysema Emphysema type: unspecified Qualified Code: J43.9 - Pulmonary emphysema, unspecified emphysema type (4) Diabetes mellitus type 2 in obese Status: Chronic Comment: controlled (5) Hypertension associated with chronic kidney disease due to type 2 diabetes mellitus Status: Chronic Comment: controlled (6) Aortic stenosis Status: Chronic Comment: This is a complicating issue Qualifiers: Cardiac valve disease etiology: nonrheumatic Qualified Code: I35.0 - Nonrheumatic aortic valve stenosis (7) Diastolic dysfunction Status: Chronic Comment: noted Subjective 24 Hr Interval Summary Free Text/Dictation Patient informs that the chief complaint of muscle pains with dialysis persists Respiratory: shortness of breath Cardiovascular: no complaints Gastrointestinal: no complaints Exam/Review of Systems Vital Signs Vitals Vital Signs Date Time Temp Pulse Resp B/P Pulse Ox O2 Delivery O2 Flow Rate FiO2 08/01/16 16:15 80 14 08/01/16 16:13 98.2 105/47 95 08/01/16 13:47 2.0 08/01/16 08:45 Nasal Cannula Intake and Output 07/31/16 07/31/16 08/01/16 15:00 23:00 07:00 Intake Total 500 ml 360 ml 360 ml Output Total 2500 ml 2000 ml Balance -2000 ml -1640 ml 360 ml Exam Constitutional: alert, oriented Neck: non-tender, supple Respiratory: crackles/rales Cardiovascular: nl pulses, regular rate and rhythm Extremities: edema Results Result Diagram: 08/01/16 0633 08/01/16 0633 Results 24 hrs Laboratory Tests Test 07/31/16 21:39 08/01/16 06:33 08/01/16 08:18 08/01/16 12:03 Bedside Glucose 127 77 101 White Blood Count 6.3 Red Blood Count 3.42 L Hemoglobin 10.2 L Hematocrit 31.8 L Mean Corpuscular Volume 93.0 Mean Corpuscular Hemoglobin 29.8 Mean Corpuscular Hemoglobin Concent 32.1 Red Cell Distribution Width 15.0 H Platelet Count 199 Mean Platelet Volume 10.9 H Neutrophils % 51.4 Lymphocytes % 36.2 Monocytes % 9.2 Eosinophils % 2.1 Basophils % 0.8 Nucleated Red Blood Cells % 0.0 Neutrophils # 3.2 Lymphocytes # 2.3 Monocytes # 0.6 Eosinophils # 0.1 Basophils # 0.1 Nucleated Red Blood Cells # 0.0 Prothrombin Time 36.0 H Prothrombin Time Ratio 2.8 INR International Normalized Ratio 3.54 Sodium Level 139 Potassium Level 5.1 Chloride Level 100 Carbon Dioxide Level 27 Anion Gap 17 H Blood Urea Nitrogen 64 H Creatinine 8.52 H Glucose Level 79 # Calcium Level 8.8 Phosphorus Level 7.0 H Magnesium Level 2.0 B-Type Natriuretic Peptide 64440 H Test 08/01/16 17:06 Bedside Glucose 153 Medications Medications Current Medications Aspirin (Ecotrin) 325 mg DAILY PO ; Start 07/31/16 at 09:00; Status Future Hold Diphenoxylate HCl/ Atropine (Lomotil) 1 tab Q6H PRN PO DIARRHEA; Start at 00:00 Folic Acid (Folic Acid) 1 mg DAILY PO Last administered on 08/01/16 09:48; Admin Dose 1 MG; Start 07/31/16 at 09:00 Gabapentin (Neurontin) 800 mg HS PO Last administered on 07/31/16 21:34; Admin Dose 800 MG; Start 07/31/16 at 21:00 Acetaminophen/ Hydrocodone Bitart ([place] (5/325)) 1 tab Q4H PRN PO PAIN Last administered on 07/31/16 19:33; Admin Dose 1 TAB; Start 07/31/16 at 00:00 Fenofibrate (Tricor) 48 mg DAILY PO Last administered on 08/01/16 09:49; Admin Dose 48 MG; Start 07/31/16 at 09:00 Atorvastatin Calcium (Lipitor) 40 mg QHS PO Last administered on 07/31/16 21: 34; Admin Dose 40 MG; Start 07/31/16 at 21:00 Linagliptin (Tradjenta) 5 mg DAILY PO Last administered on 08/01/16 09:52; Admin Dose 5 MG; Start 07/31/16 at 09:00 Lorazepam (Ativan) 0.5 mg Q8H PRN PO ANXIETY; Start 07/31/16 at 00:00 Ondansetron HCl (Zofran Inj) 4 mg Q6H PRN IV NAUSEA AND/OR VOMITING; Start at 00:00 Acetaminophen/ Hydrocodone Bitart ([place] (5/325)) 2 tab Q6H PRN PO PAIN LEVEL 7 -10; Start 07/31/16 at 00:00 Hydromorphone HCl (Dilaudid) 0.5 mg Q4H PRN IV PAIN LEVEL 7-10 Last administered on 07/31/16 02:20; Admin Dose 0.5 MG; Start 07/31/16 at 00:00 Docusate Sodium (Colace) 100 mg Q12H PRN PO CONSTIPATION; Start 07/31/16 at 00: 00 Bisacodyl (Dulcolax) 5 mg DAILY PRN PO CONSTIPATION; Start 07/31/16 at 00:00 Bisacodyl (Dulcolax Supp) 10 mg DAILY PRN [place] CONSTIPATION; Start 07/31/16 at 00 :00 Sodium Biphosphate/ Sodium Phosphate (Fleet Enema) 133 ml DAILY PRN [place] CONSTIPATION; Start 07/31/16 at 00:00 Diagnostic Test (Pha) (Accu-Chek) 1 ea 02 XX Last administered on 07/31/16 01: 35; Admin Dose 1 EA; Start 07/31/16 at 02:00 Miscellaneous Information 1 ea NOTE XX ; Start 07/31/16 at 00:30 Glucose (Glutose) 15 gm Q15M PRN PO DECREASED GLUCOSE; Start 07/31/16 at 00:30 Glucose (Glutose) 22.5 gm Q15M PRN PO DECREASED GLUCOSE; Start 07/31/16 at 00: 30 Dextrose (D50w Syringe) 25 ml Q15M PRN IV DECREASED GLUCOSE; Start 07/31/16 at 00:30 Dextrose (D50w Syringe) 50 ml Q15M PRN IV DECREASED GLUCOSE; Start 07/31/16 at 00:30 Glucagon (Glucagen) 1 mg Q15M PRN IM DECREASED GLUCOSE; Start 07/31/16 at 00:30 Glucose (Glutose) 15 gm Q15M PRN BUCCAL DECREASED GLUCOSE; Start 07/31/16 at 00 :30 Mometasone Furoate (Asmanex) 1 puff BID INH Last administered on 08/01/16 09: 45; Admin Dose 1 PUFF; Start 07/31/16 at 09:00 Nifedipine (Procardia Xl) 90 mg DAILY PO Last administered on 08/01/16 09:50; Admin Dose 90 MG; Start 07/31/16 at 09:00 Metoprolol Succinate (Toprol Xl) 25 mg BID PO Last administered on 08/01/16 09 :48; Admin Dose 25 MG; Start 07/31/16 at 09:00 Prednisone (Prednisone) 10 mg DAILY PO Last administered on 08/01/16 09:50; Admin Dose 10 MG; Start 07/31/16 at 09:00 TOMER GARCIA MD Aug 01, 2016 19:03
[2016-08-01] MEDS: FISH OIL 1,000 MG CAP PO SCH (21:28)
[2016-08-01] MEDS: ATORVASTATIN 40 MG TAB PO SCH (21:28)
[2016-08-01] MEDS: GABAPENTIN 400 MG CAP PO SCH (21:29)
[2016-08-01] MEDS: HYDROmorphONE 1 MG/ML SYG IV PRN (21:30)
[2016-08-01] MEDS: LORAZEPAM 0.5 MG TAB PO PRN (23:23)
[2016-08-02] VITALS (13 sets, daily range): BP systolic 96–148; BP diastolic 53–81; PULSE 60–98; RESP 18–22
[2016-08-02] MEDS: ACCUCHECK AT 2AM (Patients on SS coverage) XX SCH (02:00)
[2016-08-02] MEDS: HYDROmorphONE 1 MG/ML SYG IV PRN ×2 (03:20→22:37)
[2016-08-02] MEDS: HYDROCODONE/APAP (5/325) TAB PO PRN (04:41)
[2016-08-02] MEDS: INSULIN ASPART [NOVOLOG] 3 ML PEN SC SCH ×4 (08:00→21:00)
--- NOTE | 2016-08-02 08:06 | CONS ---
Date/Time of Note Date/Time of Note DATE: 08/02/16 TIME: 08:03 Assessment/Plan Assessment/Plan Problems: (1) COPD (chronic obstructive pulmonary disease) Status: Chronic Comment: stable...check CXR today post HD yesterday Qualifiers: COPD type: emphysema Emphysema type: unspecified Qualified Code: J43.9 - Pulmonary emphysema, unspecified emphysema type (2) Sarcoidosis Status: Chronic Comment: quiet on prednisone (3) ESRD (end stage renal disease) on dialysis Status: Chronic Comment: tolerated HD yest w UF...changes in prescription were effective... repeat HD in am tomorrow (4) Aortic stenosis Status: Chronic Comment: s/p TAVR in 04/01 Qualifiers: Cardiac valve disease etiology: nonrheumatic Qualified Code: I35.0 - Nonrheumatic aortic valve stenosis (5) Volume overload Status: Acute Comment: better...check CXR today.. will order PT to help mobilize Consultation Date/Type/Reason Admit Date/Time Jul 30, 2016 at 22:58 Type of Consultation: neph 24 HR Interval Summary Free Text/Dictation feels better...less edema.. no cramping w HD yesterday Exam/Review of Systems Vital Signs Vitals Vital Signs Date Time Temp Pulse Resp B/P Pulse Ox O2 Delivery O2 Flow Rate FiO2 08/02/16 07:47 98.0 72 19 110/58 91 08/02/16 05:37 2.0 08/01/16 08:45 Nasal Cannula Intake and Output 08/01/16 08/01/16 08/02/16 15:00 23:00 07:00 Intake Total 50 ml 700 ml 480 ml Output Total 2000 ml Balance 50 ml -1300 ml 480 ml Exam Constitutional: alert, oriented Neck: supple Respiratory: clear to auscultation Cardiovascular: systolic murmur (unchanged) Gastrointestinal: soft Extremities: normal pulses Results Result Diagram: 08/01/16 0633 08/01/16 0633 Results 24 hrs Laboratory Tests Test 08/01/16 08:18 08/01/16 12:03 08/01/16 17:06 08/01/16 21:27 Bedside Glucose 77 101 153 136 Medications Medications Current Medications Aspirin (Ecotrin) 325 mg DAILY PO ; Start 07/31/16 at 09:00; Status Future Hold Diphenoxylate HCl/ Atropine (Lomotil) 1 tab Q6H PRN PO DIARRHEA; Start at 00:00 Folic Acid (Folic Acid) 1 mg DAILY PO Last administered on 08/01/16 09:48; Admin Dose 1 MG; Start 07/31/16 at 09:00 Gabapentin (Neurontin) 800 mg HS PO Last administered on 08/01/16 21:29; Admin Dose 800 MG; Start 07/31/16 at 21:00 Acetaminophen/ Hydrocodone Bitart ([place] (5/325)) 1 tab Q4H PRN PO PAIN Last administered on 08/02/16 04:41; Admin Dose 1 TAB; Start 07/31/16 at 00:00 Atorvastatin Calcium (Lipitor) 40 mg QHS PO Last administered on 08/01/16 21: 28; Admin Dose 40 MG; Start 07/31/16 at 21:00 Linagliptin (Tradjenta) 5 mg DAILY PO Last administered on 08/01/16 09:52; Admin Dose 5 MG; Start 07/31/16 at 09:00 Lorazepam (Ativan) 0.5 mg Q8H PRN PO ANXIETY Last administered on 08/01/16 23: 23; Admin Dose 0.5 MG; Start 07/31/16 at 00:00 Ondansetron HCl (Zofran Inj) 4 mg Q6H PRN IV NAUSEA AND/OR VOMITING; Start at 00:00 Acetaminophen/ Hydrocodone Bitart ([place] (5/325)) 2 tab Q6H PRN PO PAIN LEVEL 7 -10 Last administered on 08/02/16 04:42; Admin Dose 2 TAB; Start 07/31/16 at 00 :00 Hydromorphone HCl (Dilaudid) 0.5 mg Q4H PRN IV PAIN LEVEL 7-10 Last administered on 08/02/16 03:20; Admin Dose 0.5 MG; Start 07/31/16 at 00:00 Docusate Sodium (Colace) 100 mg Q12H PRN PO CONSTIPATION; Start 07/31/16 at 00: 00 Bisacodyl (Dulcolax) 5 mg DAILY PRN PO CONSTIPATION; Start 07/31/16 at 00:00 Bisacodyl (Dulcolax Supp) 10 mg DAILY PRN [place] CONSTIPATION; Start 07/31/16 at 00 :00 Sodium Biphosphate/ Sodium Phosphate (Fleet Enema) 133 ml DAILY PRN [place] CONSTIPATION; Start 07/31/16 at 00:00 Diagnostic Test (Pha) (Accu-Chek) 1 ea 02 XX Last administered on 08/02/16 02: 00; Admin Dose 1 EA; Start 07/31/16 at 02:00 Miscellaneous Information 1 ea NOTE XX ; Start 07/31/16 at 00:30 Glucose (Glutose) 15 gm Q15M PRN PO DECREASED GLUCOSE; Start 07/31/16 at 00:30 Glucose (Glutose) 22.5 gm Q15M PRN PO DECREASED GLUCOSE; Start 07/31/16 at 00: 30 Dextrose (D50w Syringe) 25 ml Q15M PRN IV DECREASED GLUCOSE; Start 07/31/16 at 00:30 Dextrose (D50w Syringe) 50 ml Q15M PRN IV DECREASED GLUCOSE; Start 07/31/16 at 00:30 Glucagon (Glucagen) 1 mg Q15M PRN IM DECREASED GLUCOSE; Start 07/31/16 at 00:30 Glucose (Glutose) 15 gm Q15M PRN BUCCAL DECREASED GLUCOSE; Start 07/31/16 at 00 :30 Mometasone Furoate (Asmanex) 1 puff BID INH Last administered on 08/01/16 23: 24; Admin Dose 1 PUFF; Start 07/31/16 at 09:00 Nifedipine (Procardia Xl) 90 mg DAILY PO Last administered on 08/01/16 09:50; Admin Dose 90 MG; Start 07/31/16 at 09:00 Metoprolol Succinate (Toprol Xl) 25 mg BID PO Last administered on 08/01/16 21 :29; Admin Dose 25 MG; Start 07/31/16 at 09:00 Prednisone (Prednisone) 10 mg DAILY PO Last administered on 08/01/16 09:50; Admin Dose 10 MG; Start 07/31/16 at 09:00 Fish Oil (Fish Oil) 1,000 mg BID PO Last administered on 08/01/16 21:28; Admin Dose 1,000 MG; Start 08/01/16 at 21:00 NICO HAY MD Aug 02, 2016 08:06
[2016-08-02] MEDS: LINAGLIPTIN 5 MG TABLET PO SCH (09:52)
[2016-08-02] MEDS: LANTHANUM 500 MG CHEW PO SCH ×3 (09:52→19:09)
[2016-08-02] MEDS: FISH OIL 1,000 MG CAP PO SCH ×2 (09:52→21:12)
[2016-08-02] MEDS: NIFEdipine (XL) 90 MG TAB PO SCH (09:53)
[2016-08-02] MEDS: METOPROLOL (XL) 25 MG TAB PO SCH ×2 (09:54→21:13)
[2016-08-02] MEDS: predniSONE 10 MG TAB PO SCH (09:54)
[2016-08-02] MEDS: FOLIC ACID 1 MG TAB PO SCH (09:54)
[2016-08-02] MEDS: MOMETASONE 0.24 GM INHALER INH SCH ×2 (10:37→21:13)
--- NOTE | 2016-08-02 12:54 | RADRPT ---
PROCEDURE: XR Chest. CLINICAL INDICATION: Shortness of breath. TECHNIQUE: Single frontal view. COMPARISON: 08/01/2016. FINDINGS: There is left basilar atelectasis, unchanged. The lungs are otherwise clear. The heart is enlarged. There is calcification in the aorta consistent with atherosclerosis. There is a trans arterial aortic valve replacement. There is no pleural effusion. There is no pneumothorax. IMPRESSION: 1. Left basilar atelectasis, unchanged. 2. Cardiomegaly and atherosclerosis. 3. Trans arterial aortic valve replacement. 4. No change from 08/01/2016. RPTAT: QQ .Mp Fields MD, MD Date Time Electronically viewed and signed by .Mp Fields MD, MD on 08/02/2016 12:54 .R/
--- NOTE | 2016-08-02 18:53 | PN ---
Date/Time of Note Date/Time of Note DATE: 08/02/16 TIME: 18:51 Assessment/Plan VTE Prophylaxis VTE Prophylaxis Intervention: anti-embolic stocking Lines/Catheters IV [facility]from [facility] Saline Lock Urinary Cath still in place: No Assessment/Plan Problems: (1) Status post transcatheter aortic valve replacement (TAVR) using bioprosthesis Status: Acute Comment: She is recently Pap post this procedure. She is relatively stable unfortunately without symptoms. (2) COPD (chronic obstructive pulmonary disease) Status: Chronic Comment: Stable and breathing well. Qualifiers: COPD type: emphysema Emphysema type: unspecified Qualified Code: J43.9 - Pulmonary emphysema, unspecified emphysema type (3) Sarcoidosis Status: Chronic Comment: Noted and stable not active (4) ESRD (end stage renal disease) on dialysis Status: Chronic Comment: As per nephrology. Further dialysis tomorrow after which she can be discharged (5) Diabetes mellitus type 2 in obese Status: Chronic Comment: Good control (6) Diastolic dysfunction Status: Chronic Comment: Noted on appropriate medications Subjective 24 Hr Interval Summary Free Text/Dictation Patient reports that she was able to go through dialysis today without muscle cramping. She reports that she is breathing better Constitutional: no complaints (No fever chills or sweats) Respiratory: shortness of breath (Shortness of breath still present but improved) Cardiovascular: no complaints Gastrointestinal: no complaints Genitourinary: no complaints Exam/Review of Systems Vital Signs Vitals Vital Signs Date Time Temp Pulse Resp B/P Pulse Ox O2 Delivery O2 Flow Rate FiO2 08/02/16 16:00 79 08/02/16 15:58 98.6 20 119/57 96 08/02/16 14:08 2.0 08/02/16 00:00 Nasal Cannula Intake and Output 08/01/16 08/01/16 08/02/16 14:59 22:59 06:59 Intake Total 50 ml 700 ml 480 ml Output Total 2000 ml Balance 50 ml -1300 ml 480 ml Exam Constitutional: alert, oriented Respiratory: clear to auscultation, normal air movement Cardiovascular: nl pulses, regular rate and rhythm Results Result Diagram: 08/01/16 0633 08/01/16 0633 Results 24 hrs Laboratory Tests Test 08/01/16 21:27 08/02/16 08:01 08/02/16 11:58 4/18/17 17:13 Bedside Glucose 136 79 92 137 Medications Medications Current Medications Aspirin (Ecotrin) 325 mg DAILY PO ; Start 07/31/16 at 09:00; Status Future Hold Diphenoxylate HCl/ Atropine (Lomotil) 1 tab Q6H PRN PO DIARRHEA; Start at 00:00 Folic Acid (Folic Acid) 1 mg DAILY PO Last administered on 08/02/16 09:54; Admin Dose 1 MG; Start 07/31/16 at 09:00 Gabapentin (Neurontin) 800 mg HS PO Last administered on 08/01/16 21:29; Admin Dose 800 MG; Start 07/31/16 at 21:00 Acetaminophen/ Hydrocodone Bitart ([place] (5/325)) 1 tab Q4H PRN PO PAIN Last administered on 08/02/16 04:41; Admin Dose 1 TAB; Start 07/31/16 at 00:00 Atorvastatin Calcium (Lipitor) 40 mg QHS PO Last administered on 08/01/16 21: 28; Admin Dose 40 MG; Start 07/31/16 at 21:00 Linagliptin (Tradjenta) 5 mg DAILY PO Last administered on 08/02/16 09:52; Admin Dose 5 MG; Start 07/31/16 at 09:00 Lorazepam (Ativan) 0.5 mg Q8H PRN PO ANXIETY Last administered on 08/01/16 23: 23; Admin Dose 0.5 MG; Start 07/31/16 at 00:00 Ondansetron HCl (Zofran Inj) 4 mg Q6H PRN IV NAUSEA AND/OR VOMITING; Start at 00:00 Acetaminophen/ Hydrocodone Bitart ([place] (5/325)) 2 tab Q6H PRN PO PAIN LEVEL 7 -10 Last administered on 08/02/16 04:42; Admin Dose 2 TAB; Start 07/31/16 at 00 :00 Hydromorphone HCl (Dilaudid) 0.5 mg Q4H PRN IV PAIN LEVEL 7-10 Last administered on 08/02/16 03:20; Admin Dose 0.5 MG; Start 07/31/16 at 00:00 Docusate Sodium (Colace) 100 mg Q12H PRN PO CONSTIPATION; Start 07/31/16 at 00: 00 Bisacodyl (Dulcolax) 5 mg DAILY PRN PO CONSTIPATION; Start 07/31/16 at 00:00 Bisacodyl (Dulcolax Supp) 10 mg DAILY PRN [place] CONSTIPATION; Start 07/31/16 at 00 :00 Sodium Biphosphate/ Sodium Phosphate (Fleet Enema) 133 ml DAILY PRN [place] CONSTIPATION; Start 07/31/16 at 00:00 Diagnostic Test (Pha) (Accu-Chek) 1 ea 02 XX Last administered on 08/02/16 02: 00; Admin Dose 1 EA; Start 07/31/16 at 02:00 Miscellaneous Information 1 ea NOTE XX ; Start 07/31/16 at 00:30 Glucose (Glutose) 15 gm Q15M PRN PO DECREASED GLUCOSE; Start 07/31/16 at 00:30 Glucose (Glutose) 22.5 gm Q15M PRN PO DECREASED GLUCOSE; Start 07/31/16 at 00: 30 Dextrose (D50w Syringe) 25 ml Q15M PRN IV DECREASED GLUCOSE; Start 07/31/16 at 00:30 Dextrose (D50w Syringe) 50 ml Q15M PRN IV DECREASED GLUCOSE; Start 07/31/16 at 00:30 Glucagon (Glucagen) 1 mg Q15M PRN IM DECREASED GLUCOSE; Start 07/31/16 at 00:30 Glucose (Glutose) 15 gm Q15M PRN BUCCAL DECREASED GLUCOSE; Start 07/31/16 at 00 :30 Mometasone Furoate (Asmanex) 1 puff BID INH Last administered on 08/02/16 10: 37; Admin Dose 1 PUFF; Start 07/31/16 at 09:00 Nifedipine (Procardia Xl) 90 mg DAILY PO Last administered on 08/02/16 09:53; Admin Dose 90 MG; Start 07/31/16 at 09:00 Metoprolol Succinate (Toprol Xl) 25 mg BID PO Last administered on 08/02/16 09 :54; Admin Dose 25 MG; Start 07/31/16 at 09:00 Prednisone (Prednisone) 10 mg DAILY PO Last administered on 08/02/16 09:54; Admin Dose 10 MG; Start 07/31/16 at 09:00 Fish Oil (Fish Oil) 1,000 mg BID PO Last administered on 08/02/16 09:52; Admin Dose 1,000 MG; Start 08/01/16 at 21:00 TOMER GARCIA MD Aug 02, 2016 18:53
[2016-08-02] MEDS: GABAPENTIN 400 MG CAP PO SCH (21:12)
[2016-08-02] MEDS: ATORVASTATIN 40 MG TAB PO SCH (21:13)
[2016-08-03] VITALS (19 sets, daily range): BP systolic 100–157; BP diastolic 52–79; PULSE 53–85; RESP 16–20
[2016-08-03] MEDS: ACCUCHECK AT 2AM (Patients on SS coverage) XX SCH (02:00)
[2016-08-03] MEDS: HYDROmorphONE 1 MG/ML SYG IV PRN ×2 (04:21→21:40)
--- NOTE | 2016-08-03 06:58 | CONS ---
Date/Time of Note Date/Time of Note DATE: 08/03/16 TIME: 06:55 Assessment/Plan Assessment/Plan Problems: (1) Atrial fibrillation Comment: rate controlled... on coumadin...this am INR pd (2) Sarcoidosis Status: Chronic Comment: on prednisone (3) ESRD (end stage renal disease) on dialysis Status: Chronic Comment: for HD today... CXR clear, no CHF noted (4) Aortic stenosis Status: Chronic Comment: s/p TAVR, stable Qualifiers: Cardiac valve disease etiology: nonrheumatic Qualified Code: I35.0 - Nonrheumatic aortic valve stenosis Consultation Date/Type/Reason Admit Date/Time Jul 30, 2016 at 22:58 Type of Consultation: neph 24 HR Interval Summary Free Text/Dictation resting comfortably... NAD Exam/Review of Systems Vital Signs Vitals Vital Signs Date Time Temp Pulse Resp B/P Pulse Ox O2 Delivery O2 Flow Rate FiO2 08/03/16 04:25 53 08/03/16 03:53 97.7 18 112/56 96 08/02/16 20:54 2.0 08/02/16 20:22 Nasal Cannula Intake and Output 08/02/16 08/02/16 08/03/16 15:00 23:00 07:00 Intake Total 200 ml Balance 200 ml Exam Head: normocephalic Eyes: nl conjunctiva Neck: supple Respiratory: clear to auscultation Cardiovascular: irregular rhythm Gastrointestinal: soft Extremities: edema (tr-1+) Results Result Diagram: 08/01/16 0633 08/01/16 0633 Results 24 hrs Laboratory Tests Test 08/02/16 08:01 08/02/16 11:58 08/02/16 17:13 08/02/16 21:05 Bedside Glucose 79 92 137 136 Medications Medications Current Medications Aspirin (Ecotrin) 325 mg DAILY PO ; Start 07/31/16 at 09:00; Status Future Hold Diphenoxylate HCl/ Atropine (Lomotil) 1 tab Q6H PRN PO DIARRHEA; Start at 00:00 Folic Acid (Folic Acid) 1 mg DAILY PO Last administered on 08/02/16 09:54; Admin Dose 1 MG; Start 07/31/16 at 09:00 Gabapentin (Neurontin) 800 mg HS PO Last administered on 08/02/16 21:12; Admin Dose 800 MG; Start 07/31/16 at 21:00 Acetaminophen/ Hydrocodone Bitart ([place] (5/325)) 1 tab Q4H PRN PO PAIN Last administered on 08/02/16 04:41; Admin Dose 1 TAB; Start 07/31/16 at 00:00 Atorvastatin Calcium (Lipitor) 40 mg QHS PO Last administered on 08/02/16 21: 13; Admin Dose 40 MG; Start 07/31/16 at 21:00 Linagliptin (Tradjenta) 5 mg DAILY PO Last administered on 08/02/16 09:52; Admin Dose 5 MG; Start 07/31/16 at 09:00 Lorazepam (Ativan) 0.5 mg Q8H PRN PO ANXIETY Last administered on 08/01/16 23: 23; Admin Dose 0.5 MG; Start 07/31/16 at 00:00 Ondansetron HCl (Zofran Inj) 4 mg Q6H PRN IV NAUSEA AND/OR VOMITING; Start at 00:00 Acetaminophen/ Hydrocodone Bitart ([place] (5/325)) 2 tab Q6H PRN PO PAIN LEVEL 7 -10 Last administered on 08/02/16 04:42; Admin Dose 2 TAB; Start 07/31/16 at 00 :00 Hydromorphone HCl (Dilaudid) 0.5 mg Q4H PRN IV PAIN LEVEL 7-10 Last administered on 08/03/16 04:21; Admin Dose 0.5 MG; Start 07/31/16 at 00:00 Docusate Sodium (Colace) 100 mg Q12H PRN PO CONSTIPATION; Start 07/31/16 at 00: 00 Bisacodyl (Dulcolax) 5 mg DAILY PRN PO CONSTIPATION; Start 07/31/16 at 00:00 Bisacodyl (Dulcolax Supp) 10 mg DAILY PRN [place] CONSTIPATION; Start 07/31/16 at 00 :00 Sodium Biphosphate/ Sodium Phosphate (Fleet Enema) 133 ml DAILY PRN [place] CONSTIPATION; Start 07/31/16 at 00:00 Diagnostic Test (Pha) (Accu-Chek) 1 ea 02 XX Last administered on 08/02/16 02: 00; Admin Dose 1 EA; Start 07/31/16 at 02:00 Miscellaneous Information 1 ea NOTE XX ; Start 07/31/16 at 00:30 Glucose (Glutose) 15 gm Q15M PRN PO DECREASED GLUCOSE; Start 07/31/16 at 00:30 Glucose (Glutose) 22.5 gm Q15M PRN PO DECREASED GLUCOSE; Start 07/31/16 at 00: 30 Dextrose (D50w Syringe) 25 ml Q15M PRN IV DECREASED GLUCOSE; Start 07/31/16 at 00:30 Dextrose (D50w Syringe) 50 ml Q15M PRN IV DECREASED GLUCOSE; Start 07/31/16 at 00:30 Glucagon (Glucagen) 1 mg Q15M PRN IM DECREASED GLUCOSE; Start 07/31/16 at 00:30 Glucose (Glutose) 15 gm Q15M PRN BUCCAL DECREASED GLUCOSE; Start 07/31/16 at 00 :30 Mometasone Furoate (Asmanex) 1 puff BID INH Last administered on 08/02/16 21: 13; Admin Dose 1 PUFF; Start 07/31/16 at 09:00 Nifedipine (Procardia Xl) 90 mg DAILY PO Last administered on 08/02/16 09:53; Admin Dose 90 MG; Start 07/31/16 at 09:00 Metoprolol Succinate (Toprol Xl) 25 mg BID PO Last administered on 08/02/16 21 :13; Admin Dose 25 MG; Start 07/31/16 at 09:00 Prednisone (Prednisone) 10 mg DAILY PO Last administered on 08/02/16 09:54; Admin Dose 10 MG; Start 07/31/16 at 09:00 Fish Oil (Fish Oil) 1,000 mg BID PO Last administered on 08/02/16 21:12; Admin Dose 1,000 MG; Start 08/01/16 at 21:00 NICO HAY MD Aug 03, 2016 06:58
[2016-08-03] MEDS: INSULIN ASPART [NOVOLOG] 3 ML PEN SC SCH ×4 (07:51→20:12)
[2016-08-03 08:36] LABS: INR 2.08; PROTIME 23.6 Sec (12.2-14.2); PT RATIO 1.8
[2016-08-03] MEDS: NIFEdipine (XL) 90 MG TAB PO SCH (09:00)
[2016-08-03] MEDS: FOLIC ACID 1 MG TAB PO SCH (09:06)
[2016-08-03] MEDS: FISH OIL 1,000 MG CAP PO SCH ×2 (09:06→20:16)
[2016-08-03] MEDS: LINAGLIPTIN 5 MG TABLET PO SCH (09:06)
[2016-08-03] MEDS: MOMETASONE 0.24 GM INHALER INH SCH ×2 (09:06→20:16)
[2016-08-03] MEDS: predniSONE 10 MG TAB PO SCH (09:06)
[2016-08-03] MEDS: METOPROLOL (XL) 25 MG TAB PO SCH ×2 (09:07→20:26)
[2016-08-03] MEDS: LANTHANUM 500 MG CHEW PO SCH ×3 (09:07→18:23)
--- NOTE | 2016-08-03 14:23 | PN ---
Date/Time of Note Date/Time of Note DATE: 08/03/16 TIME: 14:21 Assessment/Plan VTE Prophylaxis VTE Prophylaxis Intervention: anti-embolic stocking Lines/Catheters IV Catheter Type (from Nrsg): Saline Lock Assessment/Plan Problems: (1) ESRD (end stage renal disease) on dialysis Status: Chronic Comment: as per nephrology (2) COPD (chronic obstructive pulmonary disease) Status: Chronic Comment: stable Qualifiers: COPD type: emphysema Emphysema type: unspecified Qualified Code: J43.9 - Pulmonary emphysema, unspecified emphysema type (3) Atrial fibrillation Status: Chronic Comment: rate controlled Qualifiers: Atrial fibrillation type: chronic Qualified Code: I48.2 - Chronic atrial fibrillation (4) Diabetes mellitus type 2 in obese Status: Chronic Comment: controlled (5) Hypertension associated with chronic kidney disease due to type 2 diabetes mellitus Status: Chronic Comment: stable (6) Volume overload Status: Acute Comment: improved, however question on patients ability for self care raised by phys tx. Re eval Subjective 24 Hr Interval Summary Free Text/Dictation patient is tolerating hd Respiratory: no complaints Cardiovascular: no complaints Gastrointestinal: no complaints Exam/Review of Systems Vital Signs Vitals Vital Signs Date Time Temp Pulse Resp B/P Pulse Ox O2 Delivery O2 Flow Rate FiO2 08/03/16 13:50 2.0 08/03/16 12:00 65 08/03/16 11:55 98.1 16 110/63 97 08/02/16 20:22 Nasal Cannula Intake and Output 08/02/16 08/02/16 08/03/16 15:00 23:00 07:00 Intake Total 200 ml 500 ml Balance 200 ml 500 ml Exam Constitutional: alert, oriented Neck: non-tender, supple Respiratory: clear to auscultation, normal air movement Cardiovascular: nl pulses, regular rate and rhythm Results Result Diagram: 08/01/16 0633 08/01/16 0633 Results 24 hrs Laboratory Tests Test 08/02/16 17:13 08/02/16 21:05 08/03/16 06:41 08/03/16 07:28 Bedside Glucose 137 136 94 Prothrombin Time 23.6 #H Prothrombin Time Ratio 1.8 INR International Normalized Ratio 2.08 Test 08/03/16 11:40 Bedside Glucose 108 Medications Medications Current Medications Aspirin (Ecotrin) 325 mg DAILY PO ; Start 07/31/16 at 09:00; Status Future Hold Diphenoxylate HCl/ Atropine (Lomotil) 1 tab Q6H PRN PO DIARRHEA; Start at 00:00 Folic Acid (Folic Acid) 1 mg DAILY PO Last administered on 08/03/16 09:06; Admin Dose 1 MG; Start 07/31/16 at 09:00 Gabapentin (Neurontin) 800 mg HS PO Last administered on 08/02/16 21:12; Admin Dose 800 MG; Start 07/31/16 at 21:00 Acetaminophen/ Hydrocodone Bitart ([place] (5/325)) 1 tab Q4H PRN PO PAIN Last administered on 08/02/16 04:41; Admin Dose 1 TAB; Start 07/31/16 at 00:00 Atorvastatin Calcium (Lipitor) 40 mg QHS PO Last administered on 08/02/16 21: 13; Admin Dose 40 MG; Start 07/31/16 at 21:00 Linagliptin (Tradjenta) 5 mg DAILY PO Last administered on 08/03/16 09:06; Admin Dose 5 MG; Start 07/31/16 at 09:00 Lorazepam (Ativan) 0.5 mg Q8H PRN PO ANXIETY Last administered on 08/01/16 23: 23; Admin Dose 0.5 MG; Start 07/31/16 at 00:00 Ondansetron HCl (Zofran Inj) 4 mg Q6H PRN IV NAUSEA AND/OR VOMITING; Start at 00:00 Acetaminophen/ Hydrocodone Bitart ([place] (5/325)) 2 tab Q6H PRN PO PAIN LEVEL 7 -10 Last administered on 08/02/16 04:42; Admin Dose 2 TAB; Start 07/31/16 at 00 :00 Hydromorphone HCl (Dilaudid) 0.5 mg Q4H PRN IV PAIN LEVEL 7-10 Last administered on 08/03/16 04:21; Admin Dose 0.5 MG; Start 07/31/16 at 00:00 Docusate Sodium (Colace) 100 mg Q12H PRN PO CONSTIPATION; Start 07/31/16 at 00: 00 Bisacodyl (Dulcolax) 5 mg DAILY PRN PO CONSTIPATION; Start 07/31/16 at 00:00 Bisacodyl (Dulcolax Supp) 10 mg DAILY PRN [place] CONSTIPATION; Start 07/31/16 at 00 :00 Sodium Biphosphate/ Sodium Phosphate (Fleet Enema) 133 ml DAILY PRN [place] CONSTIPATION; Start 07/31/16 at 00:00 Diagnostic Test (Pha) (Accu-Chek) 1 ea 02 XX Last administered on 08/02/16 02: 00; Admin Dose 1 EA; Start 07/31/16 at 02:00 Miscellaneous Information 1 ea NOTE XX ; Start 07/31/16 at 00:30 Glucose (Glutose) 15 gm Q15M PRN PO DECREASED GLUCOSE; Start 07/31/16 at 00:30 Glucose (Glutose) 22.5 gm Q15M PRN PO DECREASED GLUCOSE; Start 07/31/16 at 00: 30 Dextrose (D50w Syringe) 25 ml Q15M PRN IV DECREASED GLUCOSE; Start 07/31/16 at 00:30 Dextrose (D50w Syringe) 50 ml Q15M PRN IV DECREASED GLUCOSE; Start 07/31/16 at 00:30 Glucagon (Glucagen) 1 mg Q15M PRN IM DECREASED GLUCOSE; Start 07/31/16 at 00:30 Glucose (Glutose) 15 gm Q15M PRN BUCCAL DECREASED GLUCOSE; Start 07/31/16 at 00 :30 Mometasone Furoate (Asmanex) 1 puff BID INH Last administered on 08/03/16 09: 06; Admin Dose 1 PUFF; Start 07/31/16 at 09:00 Nifedipine (Procardia Xl) 90 mg DAILY PO Last administered on 08/02/16 09:53; Admin Dose 90 MG; Start 07/31/16 at 09:00 Metoprolol Succinate (Toprol Xl) 25 mg BID PO Last administered on 08/03/16 09 :07; Admin Dose 25 MG; Start 07/31/16 at 09:00 Prednisone (Prednisone) 10 mg DAILY PO Last administered on 08/03/16 09:06; Admin Dose 10 MG; Start 07/31/16 at 09:00 Fish Oil (Fish Oil) 1,000 mg BID PO Last administered on 08/03/16 09:06; Admin Dose 1,000 MG; Start 08/01/16 at 21:00 Warfarin Sodium (Coumadin) 2 mg ONCE@17 ONCE PO ; Start 08/03/16 at 17:00; Stop 08/03/16 at 17:01 TOMER GARCIA MD Aug 03, 2016 14:23
[2016-08-03] MEDS ORDERED: WARFARIN 2 MG TAB PO ONE (17:00)
[2016-08-03] MEDS: ATORVASTATIN 40 MG TAB PO SCH (20:16)
[2016-08-03] MEDS: GABAPENTIN 400 MG CAP PO SCH (20:16)
[2016-08-03] MEDS: LORAZEPAM 0.5 MG TAB PO PRN (23:36)
[2016-08-04] VITALS (11 sets, daily range): BP systolic 112–134; BP diastolic 54–59; PULSE 62–82; RESP 18–20
[2016-08-04] MEDS: ACCUCHECK AT 2AM (Patients on SS coverage) XX SCH (02:00)
[2016-08-04 07:32] LABS: INR 1.96; PROTIME 22.5 Sec (12.2-14.2); PT RATIO 1.8
[2016-08-04] MEDS: INSULIN ASPART [NOVOLOG] 3 ML PEN SC SCH ×4 (07:52→21:00)
[2016-08-04] MEDS: FISH OIL 1,000 MG CAP PO SCH ×2 (08:01→21:13)
[2016-08-04] MEDS: predniSONE 10 MG TAB PO SCH (08:01)
[2016-08-04] MEDS: FOLIC ACID 1 MG TAB PO SCH (08:01)
[2016-08-04] MEDS: LINAGLIPTIN 5 MG TABLET PO SCH (08:01)
[2016-08-04] MEDS: LANTHANUM 500 MG CHEW PO SCH ×3 (08:01→17:03)
[2016-08-04] MEDS: MOMETASONE 0.24 GM INHALER INH SCH ×2 (08:02→21:15)
[2016-08-04] MEDS: NIFEdipine (XL) 90 MG TAB PO SCH (08:02)
[2016-08-04] MEDS: METOPROLOL (XL) 25 MG TAB PO SCH ×2 (08:02→21:14)
--- NOTE | 2016-08-04 08:06 | CONS ---
Date/Time of Note Date/Time of Note DATE: 08/04/16 TIME: 08:05 Assessment/Plan Assessment/Plan Problems: (1) Atrial fibrillation Status: Chronic Comment: rate controlled...4mg coumadin today Qualifiers: Atrial fibrillation type: chronic Qualified Code: I48.2 - Chronic atrial fibrillation (2) Sarcoidosis Status: Chronic Comment: quiet on prednisone (3) ESRD (end stage renal disease) on dialysis Status: Chronic Comment: for planned HD in am (4) Aortic stenosis Status: Chronic Comment: s/p TAVR doing well Qualifiers: Cardiac valve disease etiology: nonrheumatic Qualified Code: I35.0 - Nonrheumatic aortic valve stenosis Consultation Date/Type/Reason Admit Date/Time Jul 30, 2016 at 22:58 Type of Consultation: neph 24 HR Interval Summary Free Text/Dictation feels OK...waiting for Physical Therapy eval.. no cp or sob...nas HD fine Exam/Review of Systems Vital Signs Vitals Vital Signs Date Time Temp Pulse Resp B/P Pulse Ox O2 Delivery O2 Flow Rate FiO2 08/04/16 07:29 97.9 88 20 112/56 96 08/04/16 02:21 2.0 08/02/16 20:22 Nasal Cannula Intake and Output 08/03/16 08/03/16 08/04/16 15:00 23:00 07:00 Intake Total 1270 ml 120 ml Output Total 3500 ml Balance -2230 ml 120 ml Exam Constitutional: alert, oriented Psych: no complaints Neck: supple Respiratory: clear to auscultation Cardiovascular: irregular rhythm Extremities: normal pulses Results Result Diagram: 08/01/16 0633 08/01/16 0633 Results 24 hrs Laboratory Tests Test 08/03/16 11:40 08/03/16 17:07 08/03/16 19:44 08/04/16 06:51 Bedside Glucose 108 146 128 Prothrombin Time 22.5 H Prothrombin Time Ratio 1.8 INR International Normalized Ratio 1.96 Test 08/04/16 07:51 Bedside Glucose 91 Medications Medications Current Medications Aspirin (Ecotrin) 325 mg DAILY PO ; Start 07/31/16 at 09:00; Status Future Hold Diphenoxylate HCl/ Atropine (Lomotil) 1 tab Q6H PRN PO DIARRHEA; Start at 00:00 Folic Acid (Folic Acid) 1 mg DAILY PO Last administered on 08/04/16 08:01; Admin Dose 1 MG; Start 07/31/16 at 09:00 Gabapentin (Neurontin) 800 mg HS PO Last administered on 08/03/16 20:16; Admin Dose 800 MG; Start 07/31/16 at 21:00 Acetaminophen/ Hydrocodone Bitart ([place] (5/325)) 1 tab Q4H PRN PO PAIN Last administered on 08/02/16 04:41; Admin Dose 1 TAB; Start 07/31/16 at 00:00 Atorvastatin Calcium (Lipitor) 40 mg QHS PO Last administered on 08/03/16 20: 16; Admin Dose 40 MG; Start 07/31/16 at 21:00 Linagliptin (Tradjenta) 5 mg DAILY PO Last administered on 08/04/16 08:01; Admin Dose 5 MG; Start 07/31/16 at 09:00 Lorazepam (Ativan) 0.5 mg Q8H PRN PO ANXIETY Last administered on 08/03/16 23: 36; Admin Dose 0.5 MG; Start 07/31/16 at 00:00 Ondansetron HCl (Zofran Inj) 4 mg Q6H PRN IV NAUSEA AND/OR VOMITING Last administered on 08/03/16 15:13; Admin Dose 4 MG; Start 07/31/16 at 00:00 Acetaminophen/ Hydrocodone Bitart ([place] (5/325)) 2 tab Q6H PRN PO PAIN LEVEL 7 -10 Last administered on 08/02/16 04:42; Admin Dose 2 TAB; Start 07/31/16 at 00 :00 Hydromorphone HCl (Dilaudid) 0.5 mg Q4H PRN IV PAIN LEVEL 7-10 Last administered on 08/03/16 21:40; Admin Dose 0.5 MG; Start 07/31/16 at 00:00 Docusate Sodium (Colace) 100 mg Q12H PRN PO CONSTIPATION; Start 07/31/16 at 00: 00 Bisacodyl (Dulcolax) 5 mg DAILY PRN PO CONSTIPATION; Start 07/31/16 at 00:00 Bisacodyl (Dulcolax Supp) 10 mg DAILY PRN [place] CONSTIPATION; Start 07/31/16 at 00 :00 Sodium Biphosphate/ Sodium Phosphate (Fleet Enema) 133 ml DAILY PRN [place] CONSTIPATION; Start 07/31/16 at 00:00 Diagnostic Test (Pha) (Accu-Chek) 1 ea 02 XX Last administered on 08/02/16 02: 00; Admin Dose 1 EA; Start 07/31/16 at 02:00 Miscellaneous Information 1 ea NOTE XX ; Start 07/31/16 at 00:30 Glucose (Glutose) 15 gm Q15M PRN PO DECREASED GLUCOSE; Start 07/31/16 at 00:30 Glucose (Glutose) 22.5 gm Q15M PRN PO DECREASED GLUCOSE; Start 07/31/16 at 00: 30 Dextrose (D50w Syringe) 25 ml Q15M PRN IV DECREASED GLUCOSE; Start 07/31/16 at 00:30 Dextrose (D50w Syringe) 50 ml Q15M PRN IV DECREASED GLUCOSE; Start 07/31/16 at 00:30 Glucagon (Glucagen) 1 mg Q15M PRN IM DECREASED GLUCOSE; Start 07/31/16 at 00:30 Glucose (Glutose) 15 gm Q15M PRN BUCCAL DECREASED GLUCOSE; Start 07/31/16 at 00 :30 Mometasone Furoate (Asmanex) 1 puff BID INH Last administered on 08/04/16 08: 02; Admin Dose 1 PUFF; Start 07/31/16 at 09:00 Nifedipine (Procardia Xl) 90 mg DAILY PO Last administered on 08/04/16 08:02; Admin Dose 90 MG; Start 07/31/16 at 09:00 Metoprolol Succinate (Toprol Xl) 25 mg BID PO Last administered on 08/04/16 08 :02; Admin Dose 25 MG; Start 07/31/16 at 09:00 Prednisone (Prednisone) 10 mg DAILY PO Last administered on 08/04/16 08:01; Admin Dose 10 MG; Start 07/31/16 at 09:00 Fish Oil (Fish Oil) 1,000 mg BID PO Last administered on 08/04/16 08:01; Admin Dose 1,000 MG; Start 08/01/16 at 21:00 NICO HAY MD Aug 04, 2016 08:06
--- NOTE | 2016-08-04 14:15 | PN ---
Date/Time of Note Date/Time of Note DATE: 08/04/16 TIME: 14:13 Assessment/Plan VTE Prophylaxis VTE Prophylaxis Intervention: heparin Lines/Catheters [facility] Saline Lock Urinary Cath still in place: No Assessment/Plan Problems: (1) Type 2 diabetes mellitus with diabetic chronic kidney disease Status: Chronic Comment: Patient's blood sugars are stable under the current regimen. She is tolerating her dialysis. As the patient describes it Dr. Gross has asked that the patient be kept until after dialysis tomorrow. Qualifiers: Diabetes mellitus jail insulin use: without bed bug exterminator use Chronic kidney disease stage: on chronic dialysis Qualified Code: E11.22 - Type 2 diabetes mellitus with chronic kidney disease on chronic dialysis, without long- term current use of insulin (2) Hyperlipidemia Status: Chronic Comment: On treatment Qualifiers: Hyperlipidemia type: pure hypercholesterolemia Qualified Code: E78.00 - Pure hypercholesterolemia (3) Obstructive sleep apnea Status: Chronic Comment: Noted (4) Status post transcatheter aortic valve replacement (TAVR) using bioprosthesis Status: Acute Comment: Stable. (5) Diastolic dysfunction Status: Chronic Comment: On appropriate treatment. (6) Atrial fibrillation Status: Chronic Comment: Remains anticoagulated with Coumadin. Qualifiers: Atrial fibrillation type: chronic Qualified Code: I48.2 - Chronic atrial fibrillation (7) COPD (chronic obstructive pulmonary disease) Status: Chronic Comment: She is on full treatment for this and stable Qualifiers: COPD type: emphysema Emphysema type: unspecified Qualified Code: J43.9 - Pulmonary emphysema, unspecified emphysema type Subjective 24 Hr Interval Summary Free Text/Dictation Patient reports she is feeling stable. She has been up and around and walking more reportedly by herself Constitutional: no complaints (No fever chills or sweats) Respiratory: no complaints Cardiovascular: no complaints Gastrointestinal: no complaints Musculoskeletal: no complaints Exam/Review of Systems Vital Signs Vitals Vital Signs Date Time Temp Pulse Resp B/P Pulse Ox O2 Delivery O2 Flow Rate FiO2 08/04/16 12:16 65 08/04/16 11:20 98.1 18 120/58 95 08/04/16 02:21 2.0 08/02/16 20:22 Nasal Cannula Intake and Output 08/03/16 08/03/16 08/04/16 15:00 23:00 07:00 Intake Total 1270 ml 120 ml Output Total 3500 ml Balance -2230 ml 120 ml Exam Constitutional: alert, oriented Respiratory: clear to auscultation, normal air movement Cardiovascular: nl pulses, regular rate and rhythm Gastrointestinal: nl liver, spleen, non-tender, soft Results Result Diagram: 08/01/1633 08/01/16 0633 Results 24 hrs Laboratory Tests Test 08/03/16 17:07 08/03/16 19:44 08/04/16 06:51 08/04/16 07:51 Bedside Glucose 146 128 91 Prothrombin Time 22.5 H Prothrombin Time Ratio 1.8 INR International Normalized Ratio 1.96 Test 08/04/16 09:19 08/04/16 11:42 Lab Scanned Report REFERENCE LAB Bedside Glucose 113 Medications Medications Current Medications Aspirin (Ecotrin) 325 mg DAILY PO ; Start 07/31/16 at 09:00; Status Future Hold Diphenoxylate HCl/ Atropine (Lomotil) 1 tab Q6H PRN PO DIARRHEA; Start at 00:00 Folic Acid (Folic Acid) 1 mg DAILY PO Last administered on 08/04/16 08:01; Admin Dose 1 MG; Start 07/31/16 at 09:00 Gabapentin (Neurontin) 800 mg HS PO Last administered on 08/03/16 20:16; Admin Dose 800 MG; Start 07/31/16 at 21:00 Acetaminophen/ Hydrocodone Bitart ([place] (5/325)) 1 tab Q4H PRN PO PAIN Last administered on 08/02/16 04:41; Admin Dose 1 TAB; Start 07/31/16 at 00:00 Atorvastatin Calcium (Lipitor) 40 mg QHS PO Last administered on 08/03/16 20: 16; Admin Dose 40 MG; Start 07/31/16 at 21:00 Linagliptin (Tradjenta) 5 mg DAILY PO Last administered on 08/04/16 08:01; Admin Dose 5 MG; Start 07/31/16 at 09:00 Lorazepam (Ativan) 0.5 mg Q8H PRN PO ANXIETY Last administered on 08/03/16 23: 36; Admin Dose 0.5 MG; Start 07/31/16 at 00:00 Ondansetron HCl (Zofran Inj) 4 mg Q6H PRN IV NAUSEA AND/OR VOMITING Last administered on 08/03/16 15:13; Admin Dose 4 MG; Start 07/31/16 at 00:00 Acetaminophen/ Hydrocodone Bitart ([place] (5/325)) 2 tab Q6H PRN PO PAIN LEVEL 7 -10 Last administered on 08/02/16 04:42; Admin Dose 2 TAB; Start 07/31/16 at 00 :00 Hydromorphone HCl (Dilaudid) 0.5 mg Q4H PRN IV PAIN LEVEL 7-10 Last administered on 08/03/16 21:40; Admin Dose 0.5 MG; Start 07/31/16 at 00:00 Docusate Sodium (Colace) 100 mg Q12H PRN PO CONSTIPATION; Start 07/31/16 at 00: 00 Bisacodyl (Dulcolax) 5 mg DAILY PRN PO CONSTIPATION; Start 07/31/16 at 00:00 Bisacodyl (Dulcolax Supp) 10 mg DAILY PRN [place] CONSTIPATION; Start 07/31/16 at 00 :00 Sodium Biphosphate/ Sodium Phosphate (Fleet Enema) 133 ml DAILY PRN [place] CONSTIPATION; Start 07/31/16 at 00:00 Diagnostic Test (Pha) (Accu-Chek) 1 ea 02 XX Last administered on 08/02/16 02: 00; Admin Dose 1 EA; Start 07/31/16 at 02:00 Miscellaneous Information 1 ea NOTE XX ; Start 07/31/16 at 00:30 Glucose (Glutose) 15 gm Q15M PRN PO DECREASED GLUCOSE; Start 07/31/16 at 00:30 Glucose (Glutose) 22.5 gm Q15M PRN PO DECREASED GLUCOSE; Start 07/31/16 at 00: 30 Dextrose (D50w Syringe) 25 ml Q15M PRN IV DECREASED GLUCOSE; Start 07/31/16 at 00:30 Dextrose (D50w Syringe) 50 ml Q15M PRN IV DECREASED GLUCOSE; Start 07/31/16 at 00:30 Glucagon (Glucagen) 1 mg Q15M PRN IM DECREASED GLUCOSE; Start 07/31/16 at 00:30 Glucose (Glutose) 15 gm Q15M PRN BUCCAL DECREASED GLUCOSE; Start 07/31/16 at 00 :30 Mometasone Furoate (Asmanex) 1 puff BID INH Last administered on 08/04/16 08: 02; Admin Dose 1 PUFF; Start 07/31/16 at 09:00 Nifedipine (Procardia Xl) 90 mg DAILY PO Last administered on 08/04/16 08:02; Admin Dose 90 MG; Start 07/31/16 at 09:00 Metoprolol Succinate (Toprol Xl) 25 mg BID PO Last administered on 08/04/16 08 :02; Admin Dose 25 MG; Start 07/31/16 at 09:00 Prednisone (Prednisone) 10 mg DAILY PO Last administered on 08/04/16 08:01; Admin Dose 10 MG; Start 07/31/16 at 09:00 Fish Oil (Fish Oil) 1,000 mg BID PO Last administered on 08/04/16 08:01; Admin Dose 1,000 MG; Start 08/01/16 at 21:00 Warfarin Sodium (Coumadin) 4 mg ONCE@17 ONCE PO ; Start 08/04/16 at 17:00; Stop 08/04/16 at 17:01 TOMER GARCIA MD Aug 04, 2016 14:15
[2016-08-04] MEDS ORDERED: WARFARIN 2 MG TAB PO ONE (17:00)
[2016-08-04] MEDS: GABAPENTIN 400 MG CAP PO SCH (21:14)
[2016-08-04] MEDS: ATORVASTATIN 40 MG TAB PO SCH (21:15)
[2016-08-04] MEDS: LORAZEPAM 0.5 MG TAB PO PRN (21:20)
[2016-08-05] VITALS (17 sets, daily range): BP systolic 90–125; BP diastolic 48–61; PULSE 48–72; RESP 18–19
[2016-08-05] MEDS: ACCUCHECK AT 2AM (Patients on SS coverage) XX SCH (01:30)
[2016-08-05] MEDS: HYDROmorphONE 1 MG/ML SYG IV PRN (02:53)
[2016-08-05] MEDS: INSULIN ASPART [NOVOLOG] 3 ML PEN SC SCH ×3 (07:58→16:40)
[2016-08-05] MEDS: FISH OIL 1,000 MG CAP PO SCH (08:00)
[2016-08-05] MEDS: LINAGLIPTIN 5 MG TABLET PO SCH (08:00)
[2016-08-05] MEDS: LANTHANUM 500 MG CHEW PO SCH ×2 (08:00→13:01)
[2016-08-05] MEDS: FOLIC ACID 1 MG TAB PO SCH (08:00)
[2016-08-05] MEDS: predniSONE 10 MG TAB PO SCH (08:00)
[2016-08-05] MEDS: NIFEdipine (XL) 90 MG TAB PO SCH (08:01)
[2016-08-05] MEDS: METOPROLOL (XL) 25 MG TAB PO SCH (08:01)
[2016-08-05] MEDS: MOMETASONE 0.24 GM INHALER INH SCH (08:03)
[2016-08-05 08:10] LABS: INR 1.87; PROTIME 21.7 Sec (12.2-14.2); PT RATIO 1.7
--- NOTE | 2016-08-05 13:22 | CONS ---
Date/Time of Note Date/Time of Note DATE: 08/05/16 TIME: 13:19 Assessment/Plan Assessment/Plan Problems: (1) ESRD (end stage renal disease) on dialysis Status: Chronic Comment: nas HD w good UF... stable off O2 (2) Aortic stenosis Status: Chronic Comment: s.p TAVR Qualifiers: Cardiac valve disease etiology: nonrheumatic Qualified Code: I35.0 - Nonrheumatic aortic valve stenosis (3) Atrial fibrillation Status: Chronic Comment: cont warfarin Qualifiers: Atrial fibrillation type: chronic Qualified Code: I48.2 - Chronic atrial fibrillation Consultation Date/Type/Reason Admit Date/Time Jul 30, 2016 at 22:58 Type of Consultation: neph 24 HR Interval Summary Free Text/Dictation doing well..nas HD earlier... expect d/c later today Exam/Review of Systems Vital Signs Vitals Vital Signs Date Time Temp Pulse Resp B/P Pulse Ox O2 Delivery O2 Flow Rate FiO2 08/05/16 12:37 56 08/05/16 11:41 98.1 19 109/51 95 08/05/16 04:59 2.0 08/02/16 20:22 Nasal Cannula Intake and Output 08/04/16 08/04/16 08/05/16 15:00 23:00 07:00 Intake Total 800 ml 300 ml Output Total 0 ml Balance 800 ml 300 ml Exam Constitutional: alert, oriented Psych: no complaints Neck: supple Respiratory: clear to auscultation Cardiovascular: regular rate and rhythm Extremities: edema (none) Results Result Diagram: 08/01/16 0633 08/01/16 0633 Results 24 hrs Laboratory Tests Test 08/04/16 17:01 08/04/16 21:11 08/05/16 06:25 08/05/16 07:56 Bedside Glucose 121 150 82 Prothrombin Time 21.7 H Prothrombin Time Ratio 1.7 INR International Normalized Ratio 1.87 Test 08/05/16 11:50 08/05/16 13:00 Bedside Glucose 158 127 Medications Medications Current Medications Aspirin (Ecotrin) 325 mg DAILY PO ; Start 07/31/16 at 09:00; Status Future Hold Diphenoxylate HCl/ Atropine (Lomotil) 1 tab Q6H PRN PO DIARRHEA; Start at 00:00 Folic Acid (Folic Acid) 1 mg DAILY PO Last administered on 08/05/16 08:00; Admin Dose 1 MG; Start 07/31/16 at 09:00 Gabapentin (Neurontin) 800 mg HS PO Last administered on 08/04/16 21:14; Admin Dose 800 MG; Start 07/31/16 at 21:00 Acetaminophen/ Hydrocodone Bitart ([place] (5/325)) 1 tab Q4H PRN PO PAIN Last administered on 08/02/16 04:41; Admin Dose 1 TAB; Start 07/31/16 at 00:00 Atorvastatin Calcium (Lipitor) 40 mg QHS PO Last administered on 08/04/16 21: 15; Admin Dose 40 MG; Start 07/31/16 at 21:00 Linagliptin (Tradjenta) 5 mg DAILY PO Last administered on 08/05/16 08:00; Admin Dose 5 MG; Start 07/31/16 at 09:00 Lorazepam (Ativan) 0.5 mg Q8H PRN PO ANXIETY Last administered on 08/04/16 21: 20; Admin Dose 0.5 MG; Start 07/31/16 at 00:00 Ondansetron HCl (Zofran Inj) 4 mg Q6H PRN IV NAUSEA AND/OR VOMITING Last administered on 08/03/16 15:13; Admin Dose 4 MG; Start 07/31/16 at 00:00 Acetaminophen/ Hydrocodone Bitart ([place] (5/325)) 2 tab Q6H PRN PO PAIN LEVEL 7 -10 Last administered on 08/02/16 04:42; Admin Dose 2 TAB; Start 07/31/16 at 00 :00 Hydromorphone HCl (Dilaudid) 0.5 mg Q4H PRN IV PAIN LEVEL 7-10 Last administered on 08/05/16 02:53; Admin Dose 0.5 MG; Start 07/31/16 at 00:00 Docusate Sodium (Colace) 100 mg Q12H PRN PO CONSTIPATION; Start 07/31/16 at 00: 00 Bisacodyl (Dulcolax) 5 mg DAILY PRN PO CONSTIPATION; Start 07/31/16 at 00:00 Bisacodyl (Dulcolax Supp) 10 mg DAILY PRN [place] CONSTIPATION; Start 07/31/16 at 00 :00 Sodium Biphosphate/ Sodium Phosphate (Fleet Enema) 133 ml DAILY PRN [place] CONSTIPATION; Start 07/31/16 at 00:00 Diagnostic Test (Pha) (Accu-Chek) 1 ea 02 XX Last administered on 08/02/16 02: 00; Admin Dose 1 EA; Start 07/31/16 at 02:00 Miscellaneous Information 1 ea NOTE XX ; Start 07/31/16 at 00:30 Glucose (Glutose) 15 gm Q15M PRN PO DECREASED GLUCOSE; Start 07/31/16 at 00:30 Glucose (Glutose) 22.5 gm Q15M PRN PO DECREASED GLUCOSE; Start 07/31/16 at 00: 30 Dextrose (D50w Syringe) 25 ml Q15M PRN IV DECREASED GLUCOSE; Start 07/31/16 at 00:30 Dextrose (D50w Syringe) 50 ml Q15M PRN IV DECREASED GLUCOSE; Start 07/31/16 at 00:30 Glucagon (Glucagen) 1 mg Q15M PRN IM DECREASED GLUCOSE; Start 07/31/16 at 00:30 Glucose (Glutose) 15 gm Q15M PRN BUCCAL DECREASED GLUCOSE; Start 07/31/16 at 00 :30 Mometasone Furoate (Asmanex) 1 puff BID INH Last administered on 08/05/16 08: 03; Admin Dose 1 PUFF; Start 07/31/16 at 09:00 Nifedipine (Procardia Xl) 90 mg DAILY PO Last administered on 08/04/16 08:02; Admin Dose 90 MG; Start 07/31/16 at 09:00 Metoprolol Succinate (Toprol Xl) 25 mg BID PO Last administered on 08/05/16 08 :01; Admin Dose 25 MG; Start 07/31/16 at 09:00 Prednisone (Prednisone) 10 mg DAILY PO Last administered on 08/05/16 08:00; Admin Dose 10 MG; Start 07/31/16 at 09:00 Fish Oil (Fish Oil) 1,000 mg BID PO Last administered on 08/05/16 08:00; Admin Dose 1,000 MG; Start 08/01/16 at 21:00 Influenza Virus Vaccine (Fluzone) 0.5 ml ONCE ONCE IM* ; Start 08/06/16 at 12:00 ; Stop 08/06/16 at 12:01 NICO HAY MD Aug 05, 2016 13:21
[2016-08-05] MEDS ORDERED: WARFARIN 2 MG TAB PO ONE (13:30)
--- NOTE | 2016-08-05 14:02 | PDOCDIS ---
Discharge Instructions DIAGNOSIS Discharge Diagnosis: Volume overload with renal failure; COPD; DM 2 CONDITION Patient Condition: Fair HOME CARE INSTRUCTIONS: Special Diet: renal, carb controlled diet ACTIVITY: Activity Restrictions: Slowly Increase Activity Do not operate Machinery Do not operate Power Tool FOLLOW UP/APPOINTMENTS Appointments Follow-up with dialysis on the normal schedule; follow-up with primary doctor Dr. Welch in 3 weeks TOMER WELCH MD Aug 05, 2016 14:02
[2016-08-05] MEDS ORDERED: PRED10TA PO (14:05)
[2016-08-05] MEDS ORDERED: OMEG1CAP55 PO (14:05)
--- NOTE | 2016-08-05 14:08 | DS ---
Date/Time of Note Date/Time of Note DATE: 08/05/16 TIME: 14:07 Discharge Summary Admission/Discharge Info Admit Date/Time Jul 30, 2016 at 22:58 Discharge Date/Time 08/05/2016 Final Diagnosis Volume overload secondary to end-stage renal disease; diabetes mellitus type 2; COPD; sarcoidosis; hypertension; hyperlipidemia Patient Condition: Fair Consults Nephrology Procedures Dialysis Hx of Present Illness 75 y/o AA F w/ h/o COPD, sarcoidosis, ESRD, T2DM, HTN, hyperlipidemia, CAD s/p stent, diverticulosis, aortic stenosis, LBBB, YOANA, diastolic dysfunction, colonic AVM, who gets HD regularly qMWF in [facility] until yesterday when she awoke w / CP. Went to [facility] and was evaluated there. Was felt to be ok to be d/c'ed home. Case was d/w her regular psych therapist. However, last night symptoms worsened and pt. went to [facility] where she was found to have resting O2 sat of 91 %. CXR showed congestion, and pleural effusions. BNP elevated. Potassium 5.5. Pt. admitted to resume HD. Now c/o muscle cramps which occur when she gets more than 2 L removed. Hospital Course Lizy woman who came in. She was dialyzed and had the excess volume carefully diet dialyzed out. She improved steadily and was able to ambulate without shortness of breath. With a re-resumption of dialysis to new volume status she is improved nicely and is now stable to go home. She is not hazard to herself or others she has no known communicable diseases her rehabilitation potential is fair. She will go home with home health services Home Meds Active Scripts Prednisone* (Prednisone*) 10 Mg Tab, 10 MG PO DAILY for 30 Days, TAB Prov:TOMER GARCIA MD 08/05/16 [place]-3/Dha/Epa/Fish Oil (FISH OIL EC 1,000 MG SOFTGEL) 1 Each Capsule.dr, 1000 MG PO BID for 30 Days, 2 Refills Prov:TOMER GARCIA MD 08/05/16 Albuterol Sulfate* (Albuterol Sulfate* HFA) 8.5 Gm Hfa.aer.ad, 1-2 PUFF INH Q4 Y for SHORTNESS OF BREATH, #1 EA Prov:MAG WANG DO 04/21/15 Prednisone* (Prednisone*) 20 Mg Tab, 40 MG PO DAILY for 4 Days, TAB Prov:MAG WANGMaria A DO 04/21/15 Reported Medications Warfarin Sod (Coumadin) 2 Mg Tab, 4 MG PO DAILY, TAB 07/31/16 Albuterol Sulfate* (Ventolin HFA*) 18 Gm Hfa.aer.ad, 2 PUFF IH Q4H Y for WHEEZING AND RESP DISTRESS, EA 05/07/14 Beclomethasone Dip* (Qvar 80*) 7.3 Gm Inha, 1 PUFF INH BID, INH 05/07/14 Prednisone* (Prednisone*) 2.5 Mg Tablet, 2.5 MG PO DAILY, TAB 05/07/14 Hydrocodone Bit-Acetaminophen* ([place]*) 5-325 Mg Tab, 1-2 TAB PO Q4H Y for PAIN , TAB 05/07/14 Lanthanum Carbonate* (Fosrenol*) 1,000 Mg Tab.chew, 1000 MG PO TID W/ MEALS, TAB.CHEW WITH MEALS 05/07/14 Sitagliptin* (Januvia*) 25 Mg Tablet, 25 MG PO DAILY, TAB 05/07/14 Sevelamer Carbonate* (Renvela*) 800 Mg Tablet, 800 MG PO TID, TAB 05/07/14 Simvastatin* (Zocor*) 40 Mg Tablet, 40 MG PO HS, TAB 05/07/14 Nifedipine* (Nifedipine ER*) 90 Mg Tablet.sa, 90 MG PO BID, TAB.SA 05/07/14 Metoprolol Tartrate* (Lopressor*) 100 Mg Tablet, 100 MG PO BID, TAB 05/07/14 Gabapentin* (Neurontin*) 400 Mg Capsule, 800 MG PO HS, CAP 05/07/14 Folic Acid* (Folic Acid*) 1 Mg Tablet, 1 MG PO DAILY, TAB 05/07/14 Fenofibrate* (Fenofibrate*) 200 Mg Cap, 200 MG PO DAILY, CAP 05/07/14 Diphenoxylate Hcl-Atropine* (Lomotil*) 1 Tab Tab, 1 TAB PO Q6H Y for DIARRHEA, TAB 05/07/14 Aspirin* (Aspirin* EC) 325 Mg Tab, 325 MG PO DAILY, TAB 05/07/14 Pending Labs Laboratory Tests Test 08/04/16 17:01 08/04/16 21:11 08/05/16 06:25 08/05/16 07:56 Bedside Glucose 121mg/dL (70-220) 150mg/dL (70-220) 82mg/dL (70-220) Prothrombin Time 21.7Sec (12.2-14.2) Prothrombin Time Ratio 1.7 INR International Normalized Ratio 1.87 Test 08/05/16 11:50 08/05/16 13:00 Bedside Glucose 158mg/dL (70-220) 127mg/dL (70-220) TOMER GARCIA MD Aug 05, 2016 14:08
[2016-08-06] MEDS ORDERED: INFLUENZA VIRUS VACCINE 0.5 ML SYG IM* ONE (12:00)
== END 2016-08-05 20:00 | disposition home health service (06) | DRG 291 ==
LOC: E/R 20:21 → MS4 22:58
PROVIDERS: ADMIT Internal Medicine; ATTEND Internal Medicine
PROC: 5A1D60Z (ICD-10-PCS; principal; 2016-07-31)
DX: I13.2 Hypertensive heart and chronic kidney disease with heart failure and with stage 5 chronic kidney disease, or end stage renal disease (principal); I50.31 Acute diastolic (congestive) heart failure; N18.6 End stage renal disease; E11.22 Type 2 diabetes mellitus with diabetic chronic kidney disease; D86.9 Sarcoidosis, unspecified; J43.9 Emphysema, unspecified; I48.2 Chronic atrial fibrillation; I25.10 Atherosclerotic heart disease of native coronary artery without angina pectoris; R09.02 Hypoxemia; E78.5 Hyperlipidemia, unspecified; D63.1 Anemia in chronic kidney disease; I35.0 Nonrheumatic aortic (valve) stenosis; G47.33 Obstructive sleep apnea (adult) (pediatric); Z79.4 Long term (current) use of insulin; Z79.82 Long term (current) use of aspirin; Z79.01 Long term (current) use of anticoagulants; Z99.2 Dependence on renal dialysis; Z95.5 Presence of coronary angioplasty implant and graft; Z95.2 Presence of prosthetic heart valve
CPT/HCPCS: 71010; 80048; 80053; 80061; 82550; 82553; 82962; 83036; 83735; 83880; 84100; 84484; 85025; 85610; 85730; 87081; 90935; 94664; 97116; 97162; 97530; J1170; J1644; J1815; J2405; J7512; P9047

== ENCOUNTER 2016-09-07 14:17 | Inpatient (IN) | payer MEDICARE, OTHER ==
[~2016-09-07] VITALS: Ht 165.1 cm; Wt 85.7 kg
[~2016-09-07 14:17] MED LIST changes: -ALBU8.5H5 INH; +COU2 PO; +OMEG1CAP55 PO; +PRED10TA PO; -PRED2.5T3 PO; -PRED20TA PO
[2016-09-07] MEDS ORDERED: ONDANSETRON (ODT) 4 MG TAB ODT STA (14:21)
[2016-09-07] MEDS ORDERED: HYDROCODONE/APAP (5/325) TAB PO ONE (14:30)
[2016-09-07] MEDS ORDERED: DIPHTH/TET/ACEL PERTUSS (ADULT) 0.5 ML VIAL IM* ONE (14:30)
--- NOTE | 2016-09-07 15:05 | RADRPT ---
PROCEDURE: Noncontrast CT Head. CLINICAL INDICATION: Status post fall. Trauma. TECHNIQUE: Noncontrast CT of the head was obtained. The administered radiation dose was CTDI vol = 43.77 mGy, DLP = 720.23 mGy-cm. One or more of the following dose reduction techniques were used: Au tomated exposure control, Adjustment of the mA and/or kV according to patient size, or Use of iterat ani reconstruction technique. COMPARISON: Noncontrast CT of the head from May 07, 2014. FINDINGS: There is mild generalized cerebral volume loss. There is mild periventricular hypoattenuation sugges ting chronic microvascular ischemic changes. There are extensive vascular calcifications within the intracranial carotid arteries. There is a partially empty sella turcica. There is a punctate calcification within the third ventric le. There is no loss of markham-white differentiation to suggest acute territorial infarction. There is no acute intracranial hemorrhage or extra-axial fluid collection. There is no mass effect. No midline shift is identified. The patient is status post left lens surgery. There is a moderate mucous retention cyst/polyp within the right sphenoid sinus. No destructive osseous lesion is identified. IMPRESSION: No significant change. 1. No acute intracranial hemorrhage. 2. Mild generalized cerebral volume loss. 3. Mild chronic microvascular ischemic changes. 4. Partially empty sella turcica. Further findings as detailed above. RPTAT: PP .Prosper Coleman MD, Date Time Electronically viewed and signed by .Prosper Coleman MD, on 09/07/2016 15:05 .F/
--- NOTE | 2016-09-07 15:15 | RADRPT ---
PROCEDURE: Noncontrast CT facial bones. CLINICAL INDICATION: Status post fall. Trauma. TECHNIQUE: Noncontrast CT of the facial bones was obtained. Coronal and sagittal re-formations were provided. The administered radiation dose was CTDI vol = 29.52 mGy, DLP = 598.6 mGy-cm. One or mor e of the following dose reduction techniques were used: Automated exposure control, Adjustment of th e mA and/or kV according to patient size, or Use of iterative reconstruction technique. COMPARISON: There are no similar studies submitted for comparison. FINDINGS: OSSEOUS STRUCTURES: There are acute comminuted type II/III dens fractures with minimal posterior dis placement. There is transverse fracture through the base of the dens as well as fracture extending i nto the C2-C3 disk space. Fracture extends into the bilateral foramen transversarium. Injury to the vertebral arteries as well as the posterior longitudinal ligament is not excluded. The C2 spinous pr ocess is dorsal to the C1 and C3 spinous processes. No destructive osseous lesion is identified. ORBITS: The patient is status post left lens surgery. The bilateral globes are intact.There is no o rbital hematoma. SINUSES: There is moderate right and mild left sphenoid sinus mucosal thickening. SKULL: Please refer to the CT head report from the same day. There is no prevertebral fluid collection. There are extensive external carotid artery vascular calc ifications. IMPRESSION: 1. Acute comminuted type II/III dens fractures as detailed above. Fractures extend into the bilate ral foramen transversarium. CTA of the neck and noncontrast CT of the cervical spine is recommended for further evaluation to exclude vertebral artery injury as clinically warranted. 2. No facial fractures are identified. 3. The bilateral globes are intact without orbital hematoma. Further findings as detailed above. These findings were discussed with Dr. Cortez at 03:10 p.m. on September 07, 2016. RPTAT: PP .Prosper Coleman MD, Date Time Electronically viewed and signed by .Prosper Coleman MD, MD on 09/07/2016 15:14 .F/
[2016-09-07] MEDS ORDERED: LIDOCAINE 1% (MPF) 5 ML VIAL SC ONE (15:30)
--- NOTE | 2016-09-07 15:57 | RADRPT ---
PROCEDURE: CT Cervical Spine without contrast. CLINICAL INDICATION: Fall with head and neck trauma TECHNIQUE: A CT of the cervical spine was performed on a CT scanner utilizing thin section axial images from the skull base through the thoracic inlet. Sagittal and coronal reformatted images were made. The CTDIvol is 22.12 mGy and the DLP is 429.79 mGycm. Automated exposure control, adjustment of the mA and/or kV according to patient size, use of iterative reconstruction technique. COMPARISON: No prior studies are available for comparison. FINDINGS: Marked diffuse osteopenia. Image degradation secondary to patient motion severely limits evaluation of the potential subtle fractures of the mid the to lower cervical spine. C2-3 Comminuted fracture deformity of the C2. Minimally displaced transverse fracture courses thro ugh the C2 body and bilateral transverse foramina this extends superiorly along odontoid tip. There is posterior displacement of the right paracentral inferior fracture fragment with fracture separat ion of 1-2 mm. The disk spaces well maintained. There is no foraminal or central canal stenosis. Th e paraspinal soft tissues are suboptimally evaluated due to motion, however, a large paraspinal anu j carlos is identified. C3-4: Disk space narrowing and right subarticular and uncovertebral disk osteophyte complex resultin g in moderate to severe right foraminal stenosis. Mild left uncovertebral hypertrophy without jud inal or central canal stenosis. C4-5: Preservation of disk height. Moderate bilateral hypertrophic facet joint arthropathy. No for aminal stenosis. C5-6: This. Disk space narrowing, endplate sclerosis and anterior endplate spurring. Moderate bila teral facet joint arthropathy. No foraminal or central canal stenosis. C6-7: Mild disk space narrowing. No significant disk bulge or protrusion is evident. There is no ce ntral canal stenosis or foraminal narrowing. C7-T1: Mild disk space narrowing. No significant disk bulge or protrusion is evident. There is no central canal stenosis or foraminal narrowing. No gross paraspinal soft tissue abnormality. IMPRESSION: 1. Limited study due to marked patient motion with diffuse osteopenia. 2. Comminuted minimally displaced fracture deformity of C2 coursing through the transverse neural f oramina bilaterally extending superiorly into the odontoid tip. No resultant foraminal or central c anal stenosis. CT angiography may be considered if there is concern for vertebral artery dissection . 3. Disk osteophyte complex in the right subarticular region at C3-C4 resulting in moderate to severe right foraminal stenosis without central canal or left foraminal stenosis. 4. Mild multilevel degenerative spondylosis of the remaining levels without central canal or forami nal stenosis . 5. Results were discussed with Rojas Zapata 09/07/2016 3:43:28 PM . RPTAT:AAJJ Marlene Tam Physician Date Time Electronically viewed and signed by Physician Soy on 09/07/2016 15:57 CHARU/
[2016-09-07] MEDS ORDERED: HYDROmorphONE 2 MG/ML SYG IM STA (16:15)
[2016-09-07 16:19] LABS: ADD SCAN DIFF NO
[2016-09-07 16:21] LABS: BASOPHIL # 0.1 10^3/ul (0.0-0.1); BASOPHILS % 0.9 % (0.0-2.0); EOSINOPHILS # 0.1 10^3/ul (0.0-0.5); EOSINOPHILS % 1.9 % (0.0-7.0); HEMATOCRIT 30.9 % (37.0-47.0); HEMOGLOBIN 10.2 g/dl (12.0-16.0); LYMPHOCYTES # 1.6 10^3/ul (0.8-2.9); LYMPHOCYTES % 27.7 % (15.0-51.0); MEAN CORPUSCULAR HEMOGLOBIN 30.9 pg (29.0-33.0); MEAN CORPUSCULAR VOLUME 93.6 fl (82.0-101.0); MEAN PLATELET VOLUME 10.5 fl (7.4-10.4); MONOCYTE # 0.6 10^3/ul (0.3-0.9); MONOCYTES % 10.6 % (0.0-11.0); NEUTROPHIL # 3.3 10^3/ul (1.6-7.5); NEUTROPHILS % 58.4 % (39.0-77.0); PLATELET COUNT 195 10^3/UL (140-415); RED CELL DISTRIBUTION WIDTH 15.8 % (11.5-14.5); WHITE BLOOD COUNT 5.7 10^3/ul (4.8-10.8)
--- NOTE | 2016-09-07 16:36 | RADRPT ---
PROCEDURE: XR Chest. CLINICAL INDICATION: Abdominal Pain TECHNIQUE: Single frontal view of the chest was obtained. COMPARISON: 08/02/2016 FINDINGS: The cardiomediastinal silhouette is moderately enlarged. There appears to be a trans arterial aorti c valve replacement. There is prominent aortic calcification. Pulmonary vasculature is prominent a nd slightly indistinct. There is a possible small left pleural effusion. There is left base atelec tasis. There is no pneumothorax. There is no visualized pneumothorax. The osseous structures and soft tissues are unremarkable. There are bilateral supraclavicular calcifications, which may reflect calcified nodes. IMPRESSION: 1. Moderate cardiomegaly. 2. Prominent aortic calcification 3. Pulmonary vascular congestion and probable mild edema. 4. Possible small left pleural effusion and left base atelectasis. RPTAT: DD .Rojas Paulino MD, MD Date Time Electronically viewed and signed by .Rojas Paulino MD, on 09/07/2016 16:36 .T/
[2016-09-07 16:37] LABS: INR 2.96; PROTIME 31.2 Sec (12.2-14.2); PT RATIO 2.4
[2016-09-07 16:41] LABS: ALBUMIN 3.4 g/dl (3.3-4.9)
[2016-09-07 16:42] LABS: POTASSIUM 3.4 mmol/L (3.5-5.1)
[2016-09-07 16:44] LABS: CREATININE 4.69 mg/dl (0.44-1.00)
[2016-09-07 16:45] LABS: ALBUMIN/GLOBULIN RATIO 0.91; CALCIUM 8.7 mg/dl (8.4-10.2); TOTAL PROTEIN 7.1 g/dl (6.1-8.1)
[2016-09-07 16:57] LABS: TROPONIN-I 0.041 ng/ml (0.00-0.12)
[2016-09-07] MEDS ORDERED: ACETAMINOPHEN 325 MG TAB PO PRN (17:00)
[2016-09-07] MEDS ORDERED: ONDANSETRON 4 MG INJ IV PRN (17:00)
[2016-09-07] MEDS ORDERED: METO-448 PO (17:22)
[2016-09-07] MEDS ORDERED: SITA25TA3 PO (17:23)
[2016-09-07] MEDS ORDERED: WARF4TAB52 PO (17:25)
[2016-09-07] MEDS ORDERED: NACL 0.9% 3 ML SYG IV SCH (17:30)
[2016-09-07] MEDS ORDERED: NA PHOSPHATE/BIPHOS 133 ML ENEMA PR PRN (17:30)
[2016-09-07] MEDS ORDERED: NIFE90TA11 PO (17:44)
[2016-09-07] MEDS ORDERED: SIMV40TA2 PO (17:44)
[2016-09-07] MEDS ORDERED: [UNRECOGNIZED DRUG - CODE] PO (17:45)
[2016-09-07] MEDS: LINAGLIPTIN 5 MG TABLET PO SCH (18:00)
[2016-09-07] MEDS: INSULIN ASPART [NOVOLOG] 3 ML PEN SC SCH ×2 (18:00→21:00)
[2016-09-07] MEDS ORDERED: GLUCOSE GEL 15 GRAM TUBE PO PRN ×2 (18:00)
[2016-09-07] MEDS ORDERED: DEXTROSE 50% 50 ML SYRINGE IV PRN ×2 (18:00)
[2016-09-07] MEDS ORDERED: GLUCAGON 1 MG INJ IM PRN (18:00)
[2016-09-07] MEDS ORDERED: GLUCOSE GEL 15 GRAM TUBE BUCCAL PRN (18:00)
[2016-09-07] MEDS ORDERED: HYDROmorphONE 1 MG/ML SYG IV STA ×2 (18:54→23:15)
--- NOTE | 2016-09-07 19:09 | ERA ---
ER Documentation Chief Complaint Date/Time DATE: 09/07/16 TIME: 19:05 Chief Complaint BIB RA FOR EVAL OF NECK PAIN S/P FALL. HPI With hypertension, diabetes, and dialysis who presents with a fall. She had a ground-level fall today after dialysis. She was sitting in a chair and fell asleep. She fell and did a face plant onto the ground. She is complaining of neck pain. This happened 30 minutes ago. She has an abrasion over the nose. She did hit the top of her head as well. Upon review of old medical records she has multiple visits to the ER for various complaints. Her primary doctor is Dr. Welch. ROS All systems reviewed and are negative except as per history of present illness. Medications Home Meds Reported Medications Lanthanum Carbonate (Fosrenol) 1,000 Mg Powd.pack, 1000 MG PO TID, #90 TAB 09/07/16 Nifedipine* (Nifedipine ER*) 90 Mg Tablet.er, 90 MG PO DAILY, TAB 09/07/16 Simvastatin* (Zocor*) 40 Mg Tablet, 40 MG PO QHS, #30 TAB 09/07/16 Warfarin Sodium* (Warfarin Sodium*) 4 Mg Tablet, 4 MG PO DAILY, TAB TAKE 1TAB ALTERNATING WITH 2 TABS DAILY 09/07/16 Sitagliptin* (Januvia*) 25 Mg Tablet, 25 MG PO DAILY, #30 TAB 09/07/16 Metoprolol Tartrate* (Lopressor*) 25 Mg Tab, 12.5 MG PO BID, #60 TAB 09/07/16 Folic Acid* (Folic Acid*) 1 Mg Tablet, 2 MG PO DAILY, TAB 05/07/14 Discontinued Reported Medications Warfarin Sod (Coumadin) 2 Mg Tab, 4 MG PO DAILY, TAB 07/31/16 Albuterol Sulfate* (Ventolin HFA*) 18 Gm Hfa.aer.ad, 2 PUFF IH Q4H Y for WHEEZING AND RESP DISTRESS, EA 05/07/14 Beclomethasone Dip* (Qvar 80*) 7.3 Gm Inha, 1 PUFF INH BID, INH 05/07/14 Hydrocodone Bit-Acetaminophen* ([place]*) 5-325 Mg Tab, 1-2 TAB PO Q4H Y for PAIN , TAB 05/07/14 Lanthanum Carbonate* (Fosrenol*) 1,000 Mg Tab.chew, 1000 MG PO TID W/ MEALS, TAB.CHEW WITH MEALS 05/07/14 Sitagliptin* (Januvia*) 25 Mg Tablet, 25 MG PO DAILY, TAB 05/07/14 Sevelamer Carbonate* (Renvela*) 800 Mg Tablet, 800 MG PO TID, TAB 05/07/14 Simvastatin* (Zocor*) 40 Mg Tablet, 40 MG PO HS, TAB 05/07/14 Nifedipine* (Nifedipine ER*) 90 Mg Tablet.sa, 90 MG PO BID, TAB.SA 05/07/14 Metoprolol Tartrate* (Lopressor*) 100 Mg Tablet, 100 MG PO BID, TAB 05/07/14 Gabapentin* (Neurontin*) 400 Mg Capsule, 800 MG PO HS, CAP 05/07/14 Fenofibrate* (Fenofibrate*) 200 Mg Cap, 200 MG PO DAILY, CAP 05/07/14 Diphenoxylate Hcl-Atropine* (Lomotil*) 1 Tab Tab, 1 TAB PO Q6H Y for DIARRHEA, TAB 05/07/14 Aspirin* (Aspirin* EC) 325 Mg Tab, 325 MG PO DAILY, TAB 05/07/14 Discontinued Scripts Prednisone* (Prednisone*) 10 Mg Tab, 10 MG PO DAILY for 30 Days, TAB Prov:TOMER WELCH MD 08/05/16 [place]-3/Dha/Epa/Fish Oil (FISH OIL EC 1,000 MG SOFTGEL) 1 Each Capsule.dr, 1000 MG PO BID for 30 Days, 2 Refills Prov:TOMER WELCH MD 08/05/16 Allergies Allergies: Coded Allergies: No Known Allergy (Unverified , 09/07/16) pt states she has no known allergies PMhx/Soc History of Surgery: Yes (abdominal hernia repair, right & left arm AVshunt, hysterectomy) Anesthesia Reaction: No Hx 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 Disorder: No Hx Respiratory Disorders: Yes (sarcoidosis, lung nodule) Hx Cardiac Disorders: Yes (HTN, CAD, Atrial fibrillation, mitral valve replacement) Hx Psychiatric Problems: No Hx Miscellaneous Medical Probl: No Hx Alcohol Use: No Hx Substance Use: No Hx Tobacco Use: No Smoking Status: Never smoker FmHx Family History: diabetes Physical Exam Vitals Vital Signs Date Time Temp Pulse Resp B/P Pulse Ox O2 Delivery O2 Flow Rate FiO2 09/07/16 18:30 84 14 94/64 97 Nasal Cannula 3.0 09/07/16 16:27 83 17 99/46 100 Nasal Cannula 2.0 09/07/16 14:31 100.3 65 18 111/63 99 Physical Exam Const: Mild distress Head: Atraumatic Eyes: Normal Conjunctiva ENT: Normal External Ears, Nose and Mouth. Neck: C-collar in place by paramedics Resp: Clear to auscultation bilaterally Cardio: Regular rate and rhythm, no murmurs Abd: Soft, non tender, non distended. Normal bowel sounds Skin: Abrasion between the eyes at the top of the nose and top of the head Back: No midline or flank tenderness Ext: No cyanosis, or edema Neur: Awake and alert, able to open and close hands bilaterally with vacuum cleaner repairer strength, able to move feet back and forth Psych: Normal Mood and Affect Result Diagram: 09/07/16 1605 09/07/16 1605 Results 24 hrs Laboratory Tests Test 09/07/16 16:05 09/07/16 18:36 White Blood Count 5.710^3/ul Red Blood Count 3.3010^6/ul Hemoglobin 10.2g/dl Hematocrit 30.9% Mean Corpuscular Volume 93.6fl Mean Corpuscular Hemoglobin 30.9pg Mean Corpuscular Hemoglobin Concent 33.0g/dl Red Cell Distribution Width 15.8% Platelet Count 00198^3/UL Mean Platelet Volume 10.5fl Neutrophils % 58.4% Lymphocytes % 27.7% Monocytes % 10.6% Eosinophils % 1.9% Basophils % 0.9% Nucleated Red Blood Cells % 0.0/100WBC Neutrophils # 3.310^3/ul Lymphocytes # 1.610^3/ul Monocytes # 0.610^3/ul Eosinophils # 0.110^3/ul Basophils # 0.110^3/ul Nucleated Red Blood Cells # 0.010^3/ul Prothrombin Time 31.2Sec Prothrombin Time Ratio 2.4 INR International Normalized Ratio 2.96 Activated Partial Thromboplast Time 32.0Sec Sodium Level 142mmol/L Potassium Level 3.4mmol/L Chloride Level 99mmol/L Carbon Dioxide Level 31mmol/L Anion Gap 15 Blood Urea Nitrogen 35mg/dl Creatinine 4.69mg/dl Glucose Level 153mg/dl Hemoglobin A1c 5.6% Calcium Level 8.7mg/dl Total Bilirubin 0.0mg/dl Direct Bilirubin 0.00mg/dl Indirect Bilirubin 0.0mg/dl Aspartate Amino Transf (AST/SGOT) 18IU/L Alanine Aminotransferase (ALT/SGPT) 24IU/L Alkaline Phosphatase 43IU/L Troponin I 0.041ng/ml Total Protein 7.1g/dl Albumin 3.4g/dl Globulin 3.70g/dl Albumin/Globulin Ratio 0.91 Lipase 197U/L Bedside Glucose 139mg/dL Current Medications Medications (Trade) Dose Ordered Sig/Oneyda Route PRN Reason Start Time Stop Time Status Last Admin Dose Admin Acetaminophen/ Hydrocodone Bitart ([place] (5/325)) 1 tab ONCE ONCE PO 09/07/16 14:30 09/07/16 14:31 DC 09/07/16 15:01 Ondansetron HCl (Zofran Odt) 4 mg ONCE STAT ODT 09/07/16 14:21 09/07/16 14:23 DC 09/07/16 15:01 Diphtheria/ Tetanus/Acell Pertussis (Adacel) 0.5 ml ONCE ONCE IM* 09/07/16 14:30 09/07/16 14:31 DC 09/07/16 15:07 Lidocaine (Xylocaine 1% (Mpf)) 5 ml ONCE ONCE SC 09/07/16 15:30 09/07/16 15:31 DC Hydromorphone HCl (Dilaudid) 2 mg ONCE STAT IM 09/07/16 16:15 09/07/16 16:16 DC 09/07/16 16:24 Ondansetron HCl (Zofran Inj) 4 mg BRIDGE ORDER PRN IV NAUSEA AND/OR VOMITING 09/07/16 17:00 09/08/16 16:59 Acetaminophen (Tylenol Tab) 650 mg ER BRIDGE PRN PO MILD PAIN/FEVER 09/07/16 17:00 09/08/16 16:59 IV Flush (NS 3 ml) 3 ml PER PROTOCOL IV 09/07/16 17:30 UNV Acetaminophen/ Hydrocodone Bitart ([place] (5/325)) 1 tab Q6H PRN PO MODERATE PAIN LEVEL 4-6 09/07/16 17:30 Acetaminophen/ Hydrocodone Bitart ([place] (5/325)) 2 tab Q6H PRN PO SEVERE PAIN LEVEL 7-10 09/07/16 17:30 Docusate Sodium (Colace) 100 mg Q12H PRN PO CONSTIPATION 09/07/16 17:30 Sodium Biphosphate/ Sodium Phosphate (Fleet Enema) 133 ml DAILY PRN DC CONSTIPATION 09/07/16 17:30 UNV Famotidine (Pepcid Iv) 20 mg Q12 IV 09/07/16 21:00 UNV Heparin Sodium (Porcine) (Heparin (5000 Units/0.5 ml)) 5,000 unit Q12 SC 09/07/16 21:00 Folic Acid (Folic Acid) 1 mg BID PO 09/07/16 21:00 Metoprolol Tartrate (Lopressor) 12.5 mg BID PO 09/07/16 21:00 UNV Fenofibrate (Tricor) 48 mg QAM PO 09/08/16 09:00 Linagliptin (Tradjenta) 5 mg DAILY PO 09/07/16 18:00 Insulin Aspart (Novolog Insulin Pen) NOVOLOG *MILD* ALGORITHM WITH MEALS BEDTIME SC 09/07/16 18:00 Insulin Glargine (Lantus) 2 unit BID@08,20 SC 09/07/16 20:00 Miscellaneous Information (* Miscellaneous Pharmacy Order) HYPOGLYCEMIA PROTOCOL w... ONCE ONCE XX 09/07/16 18:00 09/07/16 18:01 DC Miscellaneous Information (* Miscellaneous Pharmacy Order) Discontinue Glyburide, Glipizide,... ONCE ONCE XX 09/07/16 18:00 09/07/16 18:01 DC Miscellaneous Information (* Miscellaneous Pharmacy Order) Discontinue all previ... ONCE ONCE XX 09/07/16 18:00 09/07/16 18:01 DC Fish Oil (Fish Oil) 2,000 mg BID PO 09/07/16 21:00 Salmeterol Xinafoate/ Fluticasone (Advair 250/50 Diskus) 1 inh BID INH 09/07/16 21:00 UNV Atorvastatin Calcium (Lipitor) 40 mg QHS PO 09/07/16 21:00 Sevelamer Carbonate (Renvela) 0.8 gm AC MEALS PO 09/08/16 07:00 UNV Gabapentin (Neurontin) 900 mg QHS PO 5/24/17 21:00 Prednisone (Prednisone) 2.5 mg AC DINNER PO 09/08/16 17:30 UNV Prednisone (Prednisone) 7.5 mg QAM PO 09/08/16 09:00 UNV Miscellaneous Information 1 ea NOTE XX 09/07/16 18:00 Glucose (Glutose) 15 gm Q15M PRN PO DECREASED GLUCOSE 09/07/16 18:00 Glucose (Glutose) 22.5 gm Q15M PRN PO DECREASED GLUCOSE 09/07/16 18:00 Dextrose (D50w Syringe) 25 ml Q15M PRN IV DECREASED GLUCOSE 09/07/16 18:00 Dextrose (D50w Syringe) 50 ml Q15M PRN IV DECREASED GLUCOSE 09/07/16 18:00 Glucagon (Glucagen) 1 mg Q15M PRN IM DECREASED GLUCOSE 09/07/16 18:00 Glucose (Glutose) 15 gm Q15M PRN BUCCAL DECREASED GLUCOSE 09/07/16 18:00 Hydromorphone HCl (Dilaudid) 1 mg ONCE STAT IV 09/07/16 18:54 09/07/16 18:55 DC 09/07/16 18:57 Procedures/MDM CT head shows no intrarenal hemorrhage per radiology. CT facial bones shows no facial fracture per radiology. CT cervical spine shows C2 fracture per radiology. Chest x-ray shows pulmonary edema per radiology. EKG read by me: Rate/Rhythm: A. fib with bundle branch block a rate of 97 Intervals: Normal Impression: A. fib with bundle branch block Patient is a 75-year-old female presents with a ground-level fall. Unfortunately she has a C2 fracture which is unstable and she was placed in an [place] collar in the emergency department. She came in with a sales & service associate c- collar. The patient will be admitted to the care of Dr. Welch to the intensive care unit. Dr. Johnson from neurosurgery has seen the patient at the bedside and at this point does not plan to operate. The patient is pending a CT scan of the chest, abdomen, and pelvis. The patient did have a full dialysis today. I spoke with Dr. Pardo the patient's equipment man who will see the patient in consultation for dialysis during admission. At this point we will hold off on reversing her Coumadin as there is no obvious bleeding at this time. Critical Care: Time: 35 minutes excluding all billable procedures. Treatments/Evaluations: Close monitoring and treatment of unstable vital signs, cardiorespiratory, and neurologic status, while maintaining tight balance of fluid, respiratory, and cardiac interventions. Departure Diagnosis: Primary Impression: C2 cervical fracture Qualified Code: S12.100A - Closed displaced fracture of second cervical vertebra, unspecified fracture morphology, initial encounter Additional Impression: Fall Qualified Code: W19.XXXA - Fall, initial encounter Condition: Critical CHRISTO DHALIWAL MD September 07, 2016 19:09
[2016-09-07] MEDS: FISH OIL 1,000 MG CAP PO SCH (21:00)
[2016-09-07] MEDS: ATORVASTATIN 40 MG TAB PO SCH (21:00)
[2016-09-07] MEDS: GABAPENTIN 300 MG CAP PO SCH (21:00)
[2016-09-07] MEDS: FOLIC ACID 1 MG TAB PO SCH (21:00)
[2016-09-07] MEDS: INSULIN GLARGINE [LANtus] 3 ML PEN SC SCH (21:09)
[2016-09-07] MEDS: HEPARIN 5,000 UNIT/0.5 ML VIAL SC SCH (21:10)
--- NOTE | 2016-09-07 21:16 | RADRPT ---
PROCEDURE: CT abdomen and pelvis without contrast. CLINICAL INDICATION: Pain status post fall TECHNIQUE: CT scan of the abdomen and pelvis without contrast was performed on a multislice CT [facility] utilizing axial imaging from the lung bases through the pubis symphysis. The patient was scann ed without intravenous contrast. Sagittal and coronal reformatted images were made. The CTDIvol is 19.83 mGy and the DLP is 1456.47 mGycm. One of the following 3 dose reduction techniques were used during this CT examination: automated exp osure control; adjustment of the mA and /or kV according to patient size; or use of iterative recons truciton technique. COMPARISON: No relevant priors FINDINGS: The lung bases are remarkable for bibasilar discoid atelectasis. Moderate cardiomegaly and vascular calcifications are present of the thoracic aorta and the coronary arteries. The visualized liver is of normal size and attenuation. The spleen and, pancreas, gallbladder, and bilateral adrenal glands are normal. Bilateral atrophic kidneys with multiple renal cortical cysts are present. The largest is exophytic arising from the right inferior pole of the kidney and measures 4.9 cm AP by 4.9 cm in transverse d imensions. No hydronephrosis or nephroureterolithiasis is present. The visualized bowel is non obstructive. Diverticulosis is present which is moderate. No evidence for acute diverticulitis or appendicitis is present. The aorta demonstrates vascular calcifications without evidence for aneurysmal dilatation. No evide nce for retroperitoneal lymphadenopathy, ascites, or pneumoperitoneum is present. The visualized pelvis demonstrates a decompressed urinary bladder. The patient appears to be status post hysterectomy changes. The surrounding osseous structures are the imaged osseous structures demonstrate generalized osteope georgette. Degenerative changes are noted of the sacroiliac joints and degenerative spondylosis of the sp ine.. IMPRESSION: 1. No CT evidence for acute intra-abdominal or pelvic pathology. 2. Bibasilar discoid atelectasis 3. Moderate cardiomegaly and atherosclerotic vascular disease 4. Bilateral atrophic kidneys with multiple bilateral renal cortical cysts as described above. 5. Moderate diverticulosis without evidence for acute diverticulitis or appendicitis. 6. Status post hysterectomy changes 7. Generalized osteopenia and severe degenerative spondylosis changes of the imaged spine. RPTAT: C .Preethi Aceves MD, MD Date Time Electronically viewed and signed by .Preethi Aceves MD, MD on 09/07/2016 21:15 .C/
--- NOTE | 2016-09-07 21:29 | RADRPT ---
PROCEDURE: CT Chest. CLINICAL INDICATION: Chest pain and possible pleural effusion TECHNIQUE: CT scan of the chest without contrast was performed on the [facility] CT scanner at [facility]. Sagittal and coronal reformatted images were obtained from the axial [facility] e images. The CTDIvol is 19.83 mGy and the DLP is 1456.47 mGycm. One of the following 3 dose reduction techniques were used: Automated exposure control; adjustment of the mA and/or kV according to patient size; or use of iterative reconstruction technique. COMPARISON: Chest x-ray dated 09/07/2016 FINDINGS: The visualized base of the neck and bilateral thyroid lobes are remarkable for a punctate focus of c alcification in the left lobe measuring 4 mm. The lungs are clear. No focal opacification, effusion, pneumothorax, edema, or nodules are seen. I nterstitial crowding is present with low lung volumes and bibasilar discoid atelectasis. No pneumoth orax is present. The mediastinum is normal. The vascular structures of the mediastinum are normal in course and calib er. Extensive aorta vascular calcifications and coronary artery calcifications are present with an a ortic intravascular stent noted involving the ascending aorta. Moderate cardiomegaly is present. No pericardial or pleural effusions are noted. Interstitial crowding is present The axillary regions, subpectoral regions, and supraclavicular regions are remarkable for a extensiv e calcifications in the region of the left posterior neck and in the posterior soft tissues of the n [place] posterior to the clavicles and in the left greater than right soft tissues. These are most comp atible with calcified lymphadenopathy. Extensive vascular calcifications are present of the aorta a nd the coronary arteries and an intravascular endovascular stent is present. Imaging obtained throug h the upper abdomen reveals normal appearance to the liver and spleen. Bilateral atrophic kidneys a re noted with multiple bilateral renal cortical cysts. The imaged osseous structures demonstrate degenerative spondylosis of the spine. IMPRESSION: 1. No evidence for focal infiltrates, masses, pleural effusions or pneumothorax. 2. Extensive atherosclerotic vascular disease and intravascular aortic stents. 3. Moderate cardiomegaly 4. Multiple calcifications in the left greater than right levels 6 and 7 lymph nodes. 5. Bibasilar discoid atelectasis and bilateral interstitial crowding with low lung volumes 6. Atrophic bilateral kidneys with bilateral renal cortical cysts. RPTAT: HDC .Preethi Aceves MD, MD Date Time Electronically viewed and signed by .Preethi Aceves MD, MD on 09/07/2016 21:29 .C/
[2016-09-07] MEDS ORDERED: PHYTONADIONE 5 MG in DEXTROSE 5% 50 ML IVPB ONE (21:30)
--- NOTE | 2016-09-07 22:10 | CONS ---
DATE OF ADMISSION: 09/07/2016 DATE OF CONSULTATION: 09/07/2016 TYPE OF CONSULTATION: Neurosurgical. REQUESTING PHYSICIAN: Dr. Rojas Zapata INDICATION FOR CONSULTATION: C2 fracture. HISTORY OF PRESENT ILLNESS: The patient is a 75-year-old female with multiple medical problems including sarcoidosis, hypertension, coronary artery disease with end-stage renal disease on hemodialysis who fell out of her chair today while sleeping. The patient's daughter is at the bedside, helps give history. The patient apparently sleeps in a recliner relatively upright, and the patient nodded off and fell forward, landing on her face. There was no loss of consciousness. The patient stated she began having neck and back pain. She was brought to the ER, where a CT scan was done which showed a C2 fracture. This fracture appears to be a combination of a C2, C3 minimally displaced with no angulation and no retropulsion. The patient denies any headache, nausea or vomiting. She has baseline numbness from diabetic neuropathy mostly in her right hand and in her legs but not her feet. She does not report any weakness, though she apparently has generalized weakness as a baseline. Her daughter states that she does do most things by herself, is able to get up and walk around, though she has to use a walker. PAST MEDICAL HISTORY: Significant for hypertension, coronary artery disease, atrial fibrillation, mitral valve replacement, sarcoidosis, abdominal hernia repair, end-stage renal disease on hemodialysis, diabetes. PAST SURGICAL HISTORY: Significant for abdominal hernia repair, left and right upper extremity AV shunt, and hysterectomy. FAMILY HISTORY: Significant for cardiac disease and hypertension. SOCIAL HISTORY: The patient is nonsmoker, occasionally drinks coffee. ALLERGIES: NO KNOWN DRUG ALLERGIES. PHYSICAL EXAMINATION: VITAL SIGNS: Temperature 100.3, pulse 65, respirations 18, blood pressure 111/ 63, saturating 99% on room air. GENERAL: The patient is an obese elderly female lying in a hospital bed. HEAD AND NECK: The patient is normocephalic. She has no Valero sign, periorbital ecchymoses, otorrhea, rhinorrhea. Her neck is in neutral position in a hard cervical collar. She has paraspinal tenderness and tenderness with most movement. CHEST: Clear to auscultation bilaterally. CARDIAC: Regular rate and rhythm. ABDOMEN: Nontender, nondistended, soft. EXTREMITIES: No clubbing or cyanosis. The patient has some induration and some perhaps mild edema in her right lower extremity compared to her left. She has bilateral upper extremity AV fistulae. NEUROLOGIC: The patient is awake. She is generally alert but somnolent as she was given pain medications, but she arouses easily, only answers questions but complains of discomfort with most movements but then nods off again to sleep. The patient has some exophthalmus. She has grossly normal visual acuity but limited testing secondary to condition. Cranial nerve exam: III, IV and : Extraocular muscles intact. Pupils equal, round, reactive to light. V: Normal facial sensation bilaterally. VII: Face symmetric dynamically and statically. VIII: Grossly normal auditory acuity, though she may be slightly hard of hearing. IX: Symmetric palate raise. XI: Shoulder shrug 5/5. Cannot test sternocleidomastoid secondary to condition. XII: No tongue deviation when protruded. Her motor exam is grossly 4+/5 diffusely, but the family states this is baseline. She moves her upper extremities, grossly normal strength. Her lower extremities, the patient will wiggle her toes and bend her knees though she is somewhat slow with this, though this appears to be due to pain. The patient has diminished sensation mostly on her right arm to light touch by report in her right upper extremity but denies any distal lower extremity, though she clearly appears to have some neuropathy there as well and diminished sensation to pinprick and light touch. The patient has 2+ deep tendon reflexes in upper extremities, biceps, brachioradialis. Her right patellar and left patellar were absent, and the patient's left ankle was 1+. Her right ankle though 1+ on testing does have clonus, and she appears to have a right Babinski. Gait not assessed secondary to condition. LABORATORY DATA: Her white count 5.7, hemoglobin 10.2, platelets 195. Her coagulation panel: The patient's PT was 31.2 with an INR of 2.96. Her sodium 142, BUN and creatinine 35 and 4.69 with a glucose of 153. Tox screen was negative. IMAGING: I reviewed the patient's CT scan of the brain as well as the radiologist's results. The radiologist states that there was no significant change from a prior study from 05/07/2014. There is no acute intracranial hemorrhage and mild generalized cerebral volume loss with mild chronic microvascular ischemic changes with a partially empty sella turcica. I agree with this interpretation. The patient had a CT of the face which showed no evidence of facial fractures. The patient does have an acute comminuted type 2/3 dens fracture that extends bilaterally into the foramen transversarium. The radiologist states injuries to the vertebral arteries and the posterior longitudinal ligament are not excluded. The C2 spinous processes look to be dorsal to the C1 and C3 spinous processes. I reviewed this study. There is no evidence of significant translation or angulation. The fracture appears to be a type 2/3 with some slight displacement but no significant stenosis or displacement of the canal. ASSESSMENT AND PLAN: A 75-year-old female with multiple medical problems including end-stage renal disease, status post C2 fracture. I discussed patient 's signs, symptoms, physical examination, radiographic findings with her and her family. I discussed the treatment options. I explained the patient has an unstable fracture and discussed the potential neurologic risk that accompanies this. Currently the patient does not appear to be symptomatic from the fracture as there is no compression and does not appear to have an acute spinal cord injury. However, the patient does appear to manifest some symptoms that may be consistent with myelopathy, although this is likely a pre-existing issue. This could also either be from the brain or from the spine. I recommend MRI of the cervical spine to rule out any evidence of cord compression. The patient is also to have a CT angiogram to rule out any type of dissection that may have occurred from the fracture. Although this is unusual, this is a possibility. However, the patient currently is on Coumadin, which would be a treatment for such a condition, but a CT angiogram should be performed to identify such a problem. Regarding the patient's treatment, unfortunately the patient appears to have multiple medical problems that make surgery extremely high risk for her, not only in the acute surgical setting but also in the postoperative healing state as the her bone quality is likely poor secondary to her multiple medical conditions including the end-stage renal disease. I therefore believe that nonoperative management would have the lowest risk for the patient. I discussed 2 options of care, namely a halo placement versus a hard cervical collar. A type 2/3 odontoid fracture could be reasonably treated with a hard cervical collar, though I explained that a halo would generally provide an additional degree of protection and immobilization. However, given the patient's obesity and multiple comorbidities including pulmonary issues as well as being on Coumadin, this is a relative contraindication to halo placement and likely not a condition the patient would tolerate well. Therefore, I believe treatment in a hard cervical collar may be the best option in this scenario. I discussed this with the patient's family, and they agreed with this plan of care. I in much detail discussed the risk of the multiple treatments, the risk of further injury and potential paralysis. I explained this generally would not occur from day-to-day motion, but the patient is at risk for falling, and there could be displacement. I also explained that this fracture may not heal and did discuss the development of pseudoarthrosis. I also discussed a time frame of healing which in a patient of this age with multiple medical conditions and end-stage renal disease may be 6 months or more, and the patient would have to wear the collar for that period of time. Again the patient and the family expressed understanding. They also understood that should the patient deteriorate, then the only option may be for surgical intervention. The patient's neurologic status is somewhat difficult to determine. I am somewhat concerned because the patient is on Coumadin, and though she does not appear to have any new weakness, concern for a compressive epidural hematoma remains a consideration, though clinically she did not clearly manifest this issue. Therefore she will require observation, and I recommend she have observation in ICU at least for 24 hours. I also discussed this with the patient's primary physician, Dr. Welch, and he agreed to this plan of care. Dictated By: ADRIA JOSEPH MD, LG/CORNELIUS Conf#: [id number] DID#: [id number] JUANITA
[2016-09-07] MEDS: METOPROLOL 25 MG TAB PO SCH (23:00)
[2016-09-07] MEDS ORDERED: ONDANSETRON 4 MG INJ IV STA (23:15)
[2016-09-08] VITALS (50 sets, daily range): BP systolic 59–143; BP diastolic 38–123; PULSE 89–139; RESP 11–29; TEMP 97.9
[2016-09-08] MEDS: SALMETEROL/FLUTICASONE 250/50 INHA INH SCH ×3 (00:11→21:00)
[2016-09-08] MEDS ORDERED: ALBUTEROL/IPRATROPIUM (NEB) 3 ML AMP HHN PRN (02:30)
[2016-09-08] MEDS: NALOXONE (0.4 MG/ML) INJ IV PRN ×2 (02:39→02:44)
[2016-09-08 02:47] LABS: Allen Test ACCEPTAB; Arterial Base Excess -0.9 mmol/L (-3.0-3); Arterial COHb 0.2 % (0.0-3.0); Arterial Fraction of Oxyhgb 97.9 % (93.0-99.0); Arterial HCO3 34.7 mmol/L (22.0-26.0); Arterial MetHb 0.5 % (0.0-1.5); Arterial Total Hemglobin 11.8 g/dl (12.0-18.0); MODE MASK - NRB
[2016-09-08 04:13] LABS: Arterial Base Excess 0.5 mmol/L (-3.0-3); Arterial COHb 0.1 % (0.0-3.0); Arterial Fraction of Oxyhgb 98.9 % (93.0-99.0); Arterial HCO3 29.7 mmol/L (22.0-26.0); Arterial MetHb 0.5 % (0.0-1.5); Arterial Total Hemglobin 11.7 g/dl (12.0-18.0); Blood Gas IEPAP 20/6; Blood Gas PS 14; MODE MASK - BIPAP
[2016-09-08 05:15] LABS: ADD SCAN DIFF NO
[2016-09-08 05:33] LABS: ABNORMAL IP MESSAGE 1; HEMATOCRIT 33.7 % (37.0-47.0); HEMOGLOBIN 10.2 g/dl (12.0-16.0); MEAN CORPUSCULAR HEMOGLOBIN 30.5 pg (29.0-33.0); MEAN CORPUSCULAR HGB CONC 30.3 g/dl (32.0-37.0); MEAN CORPUSCULAR VOLUME 100.9 fl (82.0-101.0); MEAN PLATELET VOLUME 11.2 fl (7.4-10.4); PLATELET COUNT 207 10^3/UL (140-415); RED BLOOD COUNT 3.34 10^6/ul (4.20-5.40); RED CELL DISTRIBUTION WIDTH 15.9 % (11.5-14.5)
[2016-09-08 05:51] LABS: ALBUMIN 3.6 g/dl (3.3-4.9); ALBUMIN/GLOBULIN RATIO 0.92; CALCIUM 8.7 mg/dl (8.4-10.2); CREATININE 5.59 mg/dl (0.44-1.00); TOTAL PROTEIN 7.5 g/dl (6.1-8.1)
--- NOTE | 2016-09-08 05:57 | HP ---
DATE OF ADMISSION: 09/07/2016 HISTORY OF PRESENT ILLNESS: This is 1 of several [facility] admissions for this -U[place]and[place] female. She has a history of organic heart disease - coronary artery disease status post PCI with stenting in 2000 with aortic stenosis and chronic atrial fibrillation on anticoagulant therapy. She also has end-stage renal disease, on CHD TIW. She had gone to dialysis and was at home sitting in a chair. She reportedly fell asleep in the chair and fell forward out of the chair face first, striking the hard ground square on. She developed neck pain and was brought to the emergency room, where she was found to have at dens fracture of C2. Please note she did not have a loss of consciousness and did not have a syncopal event. She has been seen in consultation by neurosurgery, who recommends intensive care unit admission, but he does not wish to take this anticoagulated patient directly to the operating room. She is moving all extremities. PAST MEDICAL HISTORY: 1. Overweight. 2. Insulin resistance syndrome. 3. Diabetes mellitus type 2. 4. Organic heart disease - coronary artery disease status post PCI with stenting in 2000. 5. Aortic stenosis. 6. Chronic atrial fibrillation with chronic anticoagulation with Coumadin. 7. End-stage renal disease, on CHD TIW. 8. Sarcoidosis with chronic lung disease. 9. Chronic obstructive pulmonary disease. 10. Hypertension. 11. Left bundle-branch block. 12. Diastolic dysfunction. 13. Obstructive sleep apnea. 14. Hyperlipidemia. 15. Diabetic peripheral neuropathy. 16. Diverticulosis coli. 17. Hemorrhoids. 18. History of colonic arteriovenous malformation 19. History of colon polyps. 20. History of Vitamin D deficiency. 21. Remote history of Lues. 22. Allergic rhinitis. 23. Status post IRCH with unilateral salpingo-oophorectomy. 24. Status post ophthalmic surgery, type unknown, 07/2008 and 10/2009. 25. Status post placement of an arteriovenous shunt for dialysis. ALLERGIES: HAS NO KNOWN MEDICAL ALLERGIES. MEDICATION INTOLERANCE: SHE IS INTOLERANT TO TRICYCLIC ANTIDEPRESSANTS, JOVANI INHIBITORS, AND HAS SOME DIFFICULTY TOLERATING CPAP/BiPAP DEVICES. MEDICATIONS: She is on Simvastatin 40 mg once every evening, gabapentin 400 in the morning, 800 at bedtime, Januvia 25 mg once a day, fenofibrate 200 mg once a day, folate 1 mg daily, QVAR 2 puffs b.i.d., prednisone 7.5 mg in morning and 2.5 mg in afternoon, Procardia XL 90 mg b.i.d., Fosrenol with meals. Respiratory treatment SOCIAL HISTORY: She was born in [place] and was raised there. She has a high school education with experience. 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 She is a divorcee, lives alone, but has extended family that is actively involved. HABITS: She is a nonsmoker, rare alcohol, no usage of recreational drugs. VACCINES: She had pneumococcal vaccine on 03/04/2008 and tetanus vaccine on . Family history; please see prior dictations from last admission; Exam she is a pleasant -U[place]and[place] female lying in bed with a hard cervical collar on. She reports she is in pain. Please see vital signs. There is an abrasion on the forehead from facial trauma with no significant injury pupils are equal round reactive to light and accommodation extraocular movements are intact fundi were not visualized tympanic membranes without note; oropharynx demonstrates no lesions; neck exam cannot be performed due to hard cervical collar. Respiratory exam is clear to auscultation percussion Cardiac exam demonstrates irregularly irregular rhythm PMI is nonpalpable no S3. Abdomen soft nontender active bowel sounds no hepatosplenomegaly no CVA tenderness no hernias no bruits; Extremities no clubbing cyanosis or edema Neurologic exam the patient is awake alert oriented 4. She is able to move both upper extremities and both lower extremities although her strength is diminished. Not immediate laterality. 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 Assessment and plan #1 dens fracture of C2.-She has been seen in consultation by neurosurgery. They recommended a hard collar and will are of the opinion at the present time she is not an appropriate candidate to consider for surgery. In addition to this and expressed the opinion that based on the totality of her situation that a halo would not be in her best interests. She will be admitted to the intensive care unit and observe closely. 2) end-stage renal disease on dialysis; she will be continued on dialysis have notified the newspaper inserter 3) organic heart diseasecoronary artery diseasechronic atrial fibrillationdiastolic dysfunctionright bundle branch block.she will be continued with her medications and cardiology will see her in consultation 4) sarcoidosis with COPD; she will be continued on her breathing treatments 5) insulin resistance syndrome she will be continued on her med D ictated By: TOMER GARCIA MD, JR/CORNELIUS Conf#: [id number] DID#: [id number] MTDD
[2016-09-08 06:56] LABS: INR 3.11; PROTIME 32.5 Sec (12.2-14.2); PT RATIO 2.5
[2016-09-08 06:57] LABS: PARTIAL THROMBOPLASTIN TIME 36.3 Sec (25.0-35.0)
[2016-09-08] MEDS: SEVELAMER CARBONATE 0.8 GM PKT PO SCH ×3 (07:05→16:58)
[2016-09-08] MEDS: INSULIN ASPART [NOVOLOG] 3 ML PEN SC SCH ×4 (07:35→21:00)
[2016-09-08 07:57] LABS: AADO2 Arterial 218.3 mmHg (7.0-24.0); Allen Test ACCEPTAB; Arterial Base Excess -3.5 mmol/L (-3.0-3); Arterial COHb 0.5 % (0.0-3.0); Arterial Fraction of Oxyhgb 93.1 % (93.0-99.0); Arterial HCO3 24.2 mmol/L (22.0-26.0); Arterial MetHb 0.3 % (0.0-1.5); Blood Gas IEPAP 20/6; MODE MASK - BIPAP
--- NOTE | 2016-09-08 08:08 | CONS ---
Date/Time of Note Date/Time of Note DATE: 09/08/16 TIME: 08:02 Assessment/Plan Assessment/Plan Chief Complaint/Hosp Course 75 year-old female with type II/III C2 fracture. Patient neurologically stable. Awaiting MRI/ MRA of cervical spine neck. On Coumadin so if dissection would be treated but will assess none the less given fracture. Dental Financial Coordinator to bring different collar, if MRI stable, can mobilize in collar. Problems: Consultation Date/Type/Reason Admit Date/Time September 07, 2016 at 16:36 Initial Consult Date 24 HR Interval Summary Free Text/Dictation Patient states neck still hurts a bit but denies any radiating UE or LE pain, denies weakness from baseline. Exam/Review of Systems Vital Signs Vitals Vital Signs Date Time Temp Pulse Resp B/P Pulse Ox O2 Delivery O2 Flow Rate FiO2 09/08/16 07:36 109 99 50 09/08/16 06:15 20 103/64 BIPAP 09/08/16 02:30 15.0 09/08/16 02:04 97.4 Exam Constitutional: alert, oriented Head: normocephalic 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: SLATE CUTTER II-XII intact, nl mental status, nl speech, other (Patient SCHWARTZ, though body habitus makes difficult assessing as lying with BiPaP machine. Will wiggle toes and flex ankles to command readily though more problem bending knees. ) Results Result Diagram: 09/08/16 0435 09/08/16 0435 Results 24 hrs Laboratory Tests Test 09/07/16 16:05 09/07/16 18:36 09/08/16 02:37 09/08/16 02:41 White Blood Count 5.7 Red Blood Count 3.30 L Hemoglobin 10.2 L Hematocrit 30.9 L Mean Corpuscular Volume 93.6 Mean Corpuscular Hemoglobin 30.9 Mean Corpuscular Hemoglobin Concent 33.0 Red Cell Distribution Width 15.8 H Platelet Count 195 Mean Platelet Volume 10.5 H Neutrophils % 58.4 Lymphocytes % 27.7 Monocytes % 10.6 Eosinophils % 1.9 Basophils % 0.9 Nucleated Red Blood Cells % 0.0 Neutrophils # 3.3 Lymphocytes # 1.6 Monocytes # 0.6 Eosinophils # 0.1 Basophils # 0.1 Nucleated Red Blood Cells # 0.0 Prothrombin Time 31.2 #H Prothrombin Time Ratio 2.4 INR International Normalized Ratio 2.96 Activated Partial Thromboplast Time 32.0 Sodium Level 142 Potassium Level 3.4 L Chloride Level 99 Carbon Dioxide Level 31 Anion Gap 15 Blood Urea Nitrogen 35 H Creatinine 4.69 H Glucose Level 153 Hemoglobin A1c 5.6 Calcium Level 8.7 Total Bilirubin 0.0 L Direct Bilirubin 0.00 Indirect Bilirubin 0.0 Aspartate Amino Transf (AST/SGOT) 18 Alanine Aminotransferase (ALT/SGPT) 24 Alkaline Phosphatase 43 Troponin I 0.041 Total Protein 7.1 Albumin 3.4 Globulin 3.70 H Albumin/Globulin Ratio 0.91 Lipase 197 Bedside Glucose 139 162 Blood Gas Specimen Source Blood arterial Arterial Blood Date Drawn 09/08/2016 2:32:14 AM Arterial Blood pH (Temp corrected) 6.952 *L Arterial Blood pCO2 (Temp correct) 160.8 *H Arterial Blood pO2 (Temp corrected) 200.2 H Arterial Blood HCO3 34.7 H Arterial Blood Base Excess -0.9 Arterial Blood Oxygen Saturation 98.6 Soy Test ACCEPTAB Arterial Blood Gas Puncture Site Left Radial Arterial Blood Carboxyhemoglobin 0.2 Arterial Blood Methemoglobin 0.5 Blood Gas A-a O2 Differential 352.0 H Oxyhemoglobin Percent 97.9 Total Hemoglobin 11.8 L Blood Gas Temperature 37.0 Blood Gas Modality MASK - NRB FiO2 100.0 Blood Gas Critical Value Read Back CHRISTAL PAGAN Blood Gas Notified Whom AA Blood Gas Notified Time 09/08/2016 2:47:06 AM Test 09/08/16 03:36 09/08/16 04:35 09/08/16 06:00 09/08/16 07:00 Blood Gas Specimen Source Blood arterial Blood arterial Arterial Blood Date Drawn 09/08/2016 3:20:11 AM 09/08/2016 7:30:56 AM Arterial Blood pH (Temp corrected) 7.223 *L 7.256 *L Arterial Blood pCO2 (Temp correct) 73.7 H 55.6 H Arterial Blood pO2 (Temp corrected) 334.3 H 75.7 L Arterial Blood HCO3 29.7 H 24.2 Arterial Blood Base Excess 0.5 -3.5 L Arterial Blood Oxygen Saturation 99.5 93.9 L Soy Test N/A ACCEPTAB Arterial Blood Gas Puncture Site LB Left Radial Arterial Blood Carboxyhemoglobin 0.1 0.5 Arterial Blood Methemoglobin 0.5 0.3 Blood Gas A-a O2 Differential 305.0 H 218.3 H Oxyhemoglobin Percent 98.9 93.1 Total Hemoglobin 11.7 L 12.0 Blood Gas Temperature 37.0 37.0 Blood Gas Respiration Rate 20.0 20.0 Blood Gas Actual Respiration Rate 26 20 Blood Gas Modality MASK - BIPAP MASK - BIPAP FiO2 100.0 50.0 Blood Gas Pressure Support 14 Blood Gas IPAP/EPAP Ratio 04/10 04/10 Blood Gas Critical Value Read Back Mere SCHROEDER MD, RN Blood Gas Notified Whom ROSSY BRANTLEY Blood Gas Notified Time 09/08/2016 4:13:25 AM 09/08/2016 7:57:15 AM White Blood Count 7.0 # Red Blood Count 3.34 L Hemoglobin 10.2 L Hematocrit 33.7 L Mean Corpuscular Volume 100.9 Mean Corpuscular Hemoglobin 30.5 Mean Corpuscular Hemoglobin Concent 30.3 L Red Cell Distribution Width 15.9 H Platelet Count 207 Mean Platelet Volume 11.2 H Sodium Level 141 Potassium Level 5.0 Chloride Level 102 Carbon Dioxide Level 29 Anion Gap 15 Blood Urea Nitrogen 38 H Creatinine 5.59 H Glucose Level 143 Calcium Level 8.7 Total Bilirubin 0.0 L Direct Bilirubin 0.00 Indirect Bilirubin 0.0 Aspartate Amino Transf (AST/SGOT) 26 Alanine Aminotransferase (ALT/SGPT) 24 Alkaline Phosphatase 41 L Total Protein 7.5 Albumin 3.6 Globulin 3.90 H Albumin/Globulin Ratio 0.92 Prothrombin Time 32.5 H Prothrombin Time Ratio 2.5 INR International Normalized Ratio 3.11 Activated Partial Thromboplast Time 36.3 H Medications Medications Current Medications Acetaminophen/ Hydrocodone Bitart (Munger (5/325)) 1 tab Q6H PRN PO MODERATE PAIN LEVEL 4-6; Start 09/07/16 at 17:30 Acetaminophen/ Hydrocodone Bitart (Munger (5/325)) 2 tab Q6H PRN PO SEVERE PAIN LEVEL 7-10; Start 09/07/16 at 17:30 Docusate Sodium (Colace) 100 mg Q12H PRN PO CONSTIPATION; Start 09/07/16 at 17: 30 Sodium Biphosphate/ Sodium Phosphate (Fleet Enema) 133 ml DAILY PRN [place] CONSTIPATION; Start 09/07/16 at 17:30 Famotidine (Pepcid Iv) 20 mg DAILY IV ; Start 09/08/16 at 09:00 Heparin Sodium (Porcine) (Heparin (5000 Units/0.5 ml)) 5,000 unit Q12 SC Last administered on 09/07/16 21:10; Admin Dose 5,000 UNIT; Start 09/07/16 at 21:00 Folic Acid (Folic Acid) 1 mg BID PO ; Start 09/07/16 at 21:00 Metoprolol Tartrate (Lopressor) 12.5 mg BID PO ; Start 09/07/16 at 23:00 Fenofibrate (Tricor) 48 mg QAM PO ; Start 09/08/16 at 09:00 Linagliptin (Tradjenta) 5 mg DAILY PO ; Start 09/07/16 at 18:00 Insulin Glargine (Lantus) 2 unit BID@08,20 SC Last administered on 09/07/16 21 :09; Admin Dose 2 UNIT; Start 09/07/16 at 20:00 Fish Oil (Fish Oil) 2,000 mg BID PO ; Start 09/07/16 at 21:00 Salmeterol Xinafoate/ Fluticasone (Advair 250/50 Diskus) 1 inh BID INH Last administered on 09/08/16 00:11; Admin Dose 1 INH; Start 09/07/16 at 23:00 Atorvastatin Calcium (Lipitor) 40 mg QHS PO ; Start 09/07/16 at 21:00 Gabapentin (Neurontin) 900 mg QHS PO ; Start 09/07/16 at 21:00 Prednisone (Prednisone) 7.5 mg QAM PO ; Start 09/08/16 at 09:00 Miscellaneous Information 1 ea NOTE XX ; Start 09/07/16 at 18:00 Glucose (Glutose) 15 gm Q15M PRN PO DECREASED GLUCOSE; Start 09/07/16 at 18:00 Glucose (Glutose) 22.5 gm Q15M PRN PO DECREASED GLUCOSE; Start 09/07/16 at 18: 00 Dextrose (D50w Syringe) 25 ml Q15M PRN IV DECREASED GLUCOSE; Start 09/07/16 at 18:00 Dextrose (D50w Syringe) 50 ml Q15M PRN IV DECREASED GLUCOSE; Start 09/07/16 at 18:00 Glucagon (Glucagen) 1 mg Q15M PRN IM DECREASED GLUCOSE; Start 5/24/17 at 18:00 Glucose (Glutose) 15 gm Q15M PRN BUCCAL DECREASED GLUCOSE; Start 09/07/16 at 18 :00 Naloxone HCl (Narcan) 0.2 mg Q2M PRN IV DECREASED REPIRATORY RATE Last administered on 09/08/16t 02:44; Admin Dose 0.2 MG; Start 09/08/16 at 02:30 ADRIA JOSEPH MD September 08, 2016 08:07
--- NOTE | 2016-09-08 08:55 | PN ---
Date/Time of Note Date/Time of Note DATE: 09/08/16 TIME: 08:53 Assessment/Plan VTE Prophylaxis VTE Prophylaxis Intervention: other Lines/Catheters IV Catheter Type (from Nrs): Saline Lock Assessment/Plan Problems: (1) Atrial fibrillation Status: Chronic Comment: She had been anticoagulated. Due to the fracture I am trying to reverse anticoagulation. She did receive a dose of vitamin K which did not have any response at all. This is somewhat atypical and I will repeat the vitamin K Qualifiers: Atrial fibrillation type: chronic Qualified Code: I48.2 - Chronic atrial fibrillation (2) C2 cervical fracture Status: Acute Comment: Neurosurgery is assisting. Please see their consult note Qualifiers: Encounter type: initial encounter Fracture type: closed Fracture morphology: unspecified fracture morphology Fracture alignment: displaced Qualified Code: S12.100A - Closed displaced fracture of second cervical vertebra, unspecified fracture morphology, initial encounter (3) COPD (chronic obstructive pulmonary disease) Status: Chronic Comment: On treatment and stable Qualifiers: COPD type: emphysema Emphysema type: panlobular Qualified Code: J43.1 - Panlobular emphysema (4) ESRD (end stage renal disease) on dialysis Status: Chronic Comment: As per nephrology continue dialysis (5) Diabetes mellitus type 2 in obese Status: Chronic Comment: Well-controlled on current regimen (6) Hypertension associated with chronic kidney disease due to type 2 diabetes mellitus Status: Chronic Comment: Adequate control (7) Diastolic dysfunction Status: Chronic Comment: Stable Subjective 24 Hr Interval Summary Free Text/Dictation Pleasant black female lying in bed. She had the BiPAP on which is supposed to be used only during hours of sleep Constitutional: no complaints Respiratory: no complaints Cardiovascular: no complaints Gastrointestinal: no complaints Neurologic: other (She denies any focal weakness but does complain of severe neck pain) Exam/Review of Systems Vital Signs Vitals Vital Signs Date Time Temp Pulse Resp B/P Pulse Ox O2 Delivery O2 Flow Rate FiO2 09/08/16 07:36 109 99 50 09/08/16 06:15 20 103/64 BIPAP 09/08/16 02:30 15.0 09/08/16 02:04 97.4 Exam Constitutional: alert, oriented Respiratory: clear to auscultation, normal air movement Cardiovascular: irregular rhythm, nl pulses Gastrointestinal: nl liver, spleen, non-tender, soft Extremities: other (Moves all 4 extremities. Please note she has limited range of motion of the knees which is a chronic problem due to arthritis) Results Result Diagram: 09/08/16 0435 09/08/16 0435 Results 24 hrs Laboratory Tests Test 09/07/16 16:05 09/07/16 18:36 09/08/16 02:37 09/08/16 02:41 White Blood Count 5.7 Red Blood Count 3.30 L Hemoglobin 10.2 L Hematocrit 30.9 L Mean Corpuscular Volume 93.6 Mean Corpuscular Hemoglobin 30.9 Mean Corpuscular Hemoglobin Concent 33.0 Red Cell Distribution Width 15.8 H Platelet Count 195 Mean Platelet Volume 10.5 H Neutrophils % 58.4 Lymphocytes % 27.7 Monocytes % 10.6 Eosinophils % 1.9 Basophils % 0.9 Nucleated Red Blood Cells % 0.0 Neutrophils # 3.3 Lymphocytes # 1.6 Monocytes # 0.6 Eosinophils # 0.1 Basophils # 0.1 Nucleated Red Blood Cells # 0.0 Prothrombin Time 31.2 #H Prothrombin Time Ratio 2.4 INR International Normalized Ratio 2.96 Activated Partial Thromboplast Time 32.0 Sodium Level 142 Potassium Level 3.4 L Chloride Level 99 Carbon Dioxide Level 31 Anion Gap 15 Blood Urea Nitrogen 35 H Creatinine 4.69 H Glucose Level 153 Hemoglobin A1c 5.6 Calcium Level 8.7 Total Bilirubin 0.0 L Direct Bilirubin 0.00 Indirect Bilirubin 0.0 Aspartate Amino Transf (AST/SGOT) 18 Alanine Aminotransferase (ALT/SGPT) 24 Alkaline Phosphatase 43 Troponin I 0.041 Total Protein 7.1 Albumin 3.4 Globulin 3.70 H Albumin/Globulin Ratio 0.91 Lipase 197 Bedside Glucose 139 162 Blood Gas Specimen Source Blood arterial Arterial Blood Date Drawn 09/08/2016 2:32:14 AM Arterial Blood pH (Temp corrected) 6.952 *L Arterial Blood pCO2 (Temp correct) 160.8 *H Arterial Blood pO2 (Temp corrected) 200.2 H Arterial Blood HCO3 34.7 H Arterial Blood Base Excess -0.9 Arterial Blood Oxygen Saturation 98.6 Soy Test ACCEPTAB Arterial Blood Gas Puncture Site Left Radial Arterial Blood Carboxyhemoglobin 0.2 Arterial Blood Methemoglobin 0.5 Blood Gas A-a O2 Differential 352.0 H Oxyhemoglobin Percent 97.9 Total Hemoglobin 11.8 L Blood Gas Temperature 37.0 Blood Gas Modality MASK - NRB FiO2 100.0 Blood Gas Critical Value Read Back CHRISTAL RN Blood Gas Notified Whom BRI Blood Gas Notified Time 09/08/2016 2:47:06 AM Test 09/08/16 03:36 09/08/16 04:35 09/08/16 06:00 09/08/16 07:00 Blood Gas Specimen Source Blood arterial Blood arterial Arterial Blood Date Drawn 09/08/2016 3:20:11 AM 09/08/2016 7:30:56 AM Arterial Blood pH (Temp corrected) 7.223 *L 7.256 *L Arterial Blood pCO2 (Temp correct) 73.7 H 55.6 H Arterial Blood pO2 (Temp corrected) 334.3 H 75.7 L Arterial Blood HCO3 29.7 H 24.2 Arterial Blood Base Excess 0.5 -3.5 L Arterial Blood Oxygen Saturation 99.5 93.9 L Soy Test N/A ACCEPTAB Arterial Blood Gas Puncture Site LB Left Radial Arterial Blood Carboxyhemoglobin 0.1 0.5 Arterial Blood Methemoglobin 0.5 0.3 Blood Gas A-a O2 Differential 305.0 H 218.3 H Oxyhemoglobin Percent 98.9 93.1 Total Hemoglobin 11.7 L 12.0 Blood Gas Temperature 37.0 37.0 Blood Gas Respiration Rate 20.0 20.0 Blood Gas Actual Respiration Rate 26 20 Blood Gas Modality MASK - BIPAP MASK - BIPAP FiO2 100.0 50.0 Blood Gas Pressure Support 14 Blood Gas IPAP/EPAP Ratio 20/6 20/6 Blood Gas Critical Value Read Back Mere SCHROEDER MD RN Blood Gas Notified Whom ROSSY BRANTLEY Blood Gas Notified Time 09/08/2016 4:13:25 AM 09/08/2016 7:57:15 AM White Blood Count 7.0 # Red Blood Count 3.34 L Hemoglobin 10.2 L Hematocrit 33.7 L Mean Corpuscular Volume 100.9 Mean Corpuscular Hemoglobin 30.5 Mean Corpuscular Hemoglobin Concent 30.3 L Red Cell Distribution Width 15.9 H Platelet Count 207 Mean Platelet Volume 11.2 H Sodium Level 141 Potassium Level 5.0 Chloride Level 102 Carbon Dioxide Level 29 Anion Gap 15 Blood Urea Nitrogen 38 H Creatinine 5.59 H Glucose Level 143 Calcium Level 8.7 Total Bilirubin 0.0 L Direct Bilirubin 0.00 Indirect Bilirubin 0.0 Aspartate Amino Transf (AST/SGOT) 26 Alanine Aminotransferase (ALT/SGPT) 24 Alkaline Phosphatase 41 L Total Protein 7.5 Albumin 3.6 Globulin 3.90 H Albumin/Globulin Ratio 0.92 Prothrombin Time 32.5 H Prothrombin Time Ratio 2.5 INR International Normalized Ratio 3.11 Activated Partial Thromboplast Time 36.3 H Test 09/08/16 08:37 Bedside Glucose 98 Medications Medications Current Medications Acetaminophen/ Hydrocodone Bitart ([place] (5/325)) 1 tab Q6H PRN PO MODERATE PAIN LEVEL 4-6; Start 09/07/16 at 17:30 Acetaminophen/ Hydrocodone Bitart ([place] (5/325)) 2 tab Q6H PRN PO SEVERE PAIN LEVEL 7-10; Start 09/07/16 at 17:30 Docusate Sodium (Colace) 100 mg Q12H PRN PO CONSTIPATION; Start 09/07/16 at 17: 30 Sodium Biphosphate/ Sodium Phosphate (Fleet Enema) 133 ml DAILY PRN [place] CONSTIPATION; Start 09/07/16 at 17:30 Famotidine (Pepcid Iv) 20 mg DAILY IV ; Start 09/08/16 at 09:00 Heparin Sodium (Porcine) (Heparin (5000 Units/0.5 ml)) 5,000 unit Q12 SC Last administered on 09/07/16 21:10; Admin Dose 5,000 UNIT; Start 09/07/16 at 21:00 Folic Acid (Folic Acid) 1 mg BID PO ; Start 09/07/16 at 21:00 Metoprolol Tartrate (Lopressor) 12.5 mg BID PO ; Start 09/07/16 at 23:00 Fenofibrate (Tricor) 48 mg QAM PO ; Start 09/08/16 at 09:00 Linagliptin (Tradjenta) 5 mg DAILY PO ; Start 09/07/16 at 18:00 Insulin Glargine (Lantus) 2 unit BID@08,20 SC Last administered on 09/07/16 21 :09; Admin Dose 2 UNIT; Start 09/07/16 at 20:00 Fish Oil (Fish Oil) 2,000 mg BID PO ; Start 09/07/16 at 21:00 Salmeterol Xinafoate/ Fluticasone (Advair 250/50 Diskus) 1 inh BID INH Last administered on 09/08/16 00:11; Admin Dose 1 INH; Start 09/07/16 at 23:00 Atorvastatin Calcium (Lipitor) 40 mg QHS PO ; Start 09/07/16 at 21:00 Gabapentin (Neurontin) 900 mg QHS PO ; Start 09/07/16 at 21:00 Prednisone (Prednisone) 7.5 mg QAM PO ; Start 09/08/16 at 09:00 Miscellaneous Information 1 ea NOTE XX ; Start 09/07/16 at 18:00 Glucose (Glutose) 15 gm Q15M PRN PO DECREASED GLUCOSE; Start 09/07/16 at 18:00 Glucose (Glutose) 22.5 gm Q15M PRN PO DECREASED GLUCOSE; Start 09/07/16 at 18: 00 Dextrose (D50w Syringe) 25 ml Q15M PRN IV DECREASED GLUCOSE; Start 09/07/16 at 18:00 Dextrose (D50w Syringe) 50 ml Q15M PRN IV DECREASED GLUCOSE; Start 09/07/16 at 18:00 Glucagon (Glucagen) 1 mg Q15M PRN IM DECREASED GLUCOSE; Start 09/07/16 at 18:00 Glucose (Glutose) 15 gm Q15M PRN BUCCAL DECREASED GLUCOSE; Start 09/07/16 at 18 :00 Naloxone HCl (Narcan) 0.2 mg Q2M PRN IV DECREASED REPIRATORY RATE Last administered on 09/08/16 02:44; Admin Dose 0.2 MG; Start 09/08/16 at 02:30 TOMER GARCIA MD September 08, 2016 08:55
[2016-09-08] MEDS: LINAGLIPTIN 5 MG TABLET PO SCH (09:00)
[2016-09-08] MEDS: FISH OIL 1,000 MG CAP PO SCH ×2 (09:00→21:00)
[2016-09-08] MEDS: FENOFIBRATE 48 MG TAB PO SCH (09:00)
[2016-09-08] MEDS: predniSONE 2.5 MG TAB PO SCH ×2 (09:00→16:53)
[2016-09-08] MEDS: FOLIC ACID 1 MG TAB PO SCH ×2 (09:00→21:00)
[2016-09-08] MEDS: METOPROLOL 25 MG TAB PO SCH ×2 (09:00→21:00)
[2016-09-08 09:02] LABS: NEUTROPHILS % 85.3 % (39.0-77.0)
[2016-09-08 09:03] LABS: BASOPHILS % 0.3 % (0.0-2.0); LYMPHOCYTES # 0.5 10^3/ul (0.8-2.9); LYMPHOCYTES % 7.6 % (15.0-51.0); MONOCYTE # 0.4 10^3/ul (0.3-0.9); MONOCYTES % 6.1 % (0.0-11.0)
[2016-09-08] MEDS: FAMOTIDINE 20 MG INJ IV SCH (09:34)
[2016-09-08] MEDS: HEPARIN 5,000 UNIT/0.5 ML VIAL SC SCH ×2 (09:37→22:33)
[2016-09-08] MEDS: INSULIN GLARGINE [LANtus] 3 ML PEN SC SCH ×2 (09:38→22:31)
--- NOTE | 2016-09-08 09:51 | CONS ---
DATE OF ADMISSION: 09/07/2016 DATE OF CONSULTATION: CONSULTATION: Nephrology consultation REASON FOR CONSULTATION: ESRD management. HISTORY OF PRESENT ILLNESS: This is a 75-year-old female with end-stage renal disease due to hypert ension and diabetes who currently dialyzes every Monday, Monday, and Monday for many years here a t the [facility] unit in [place]. She went to her usual dialysis treatment yesterday which was uneventful. However, upon returning ho wy, she apparently fell asleep in her recliner chair which she does and then most unfortunately fell off the chair, landing face first, with development of sudden neck pain. She was brought to the ER where fortunately she was neurologically intact, although evaluation did d isclose a C2 fracture. She has been seen by neurosurgery. She is being monitored in the ICU and over the past 24 hours has remained neurologically intact. There are plans for her to undergo an MRI and MRA, she has been anticoagulated with Coumadin due to her underlying atrial fibrillation, and her next planned dialysis is tomorrow. Of note, the patient has successfully undergone a TAVR procedure for aortic stenosis over at [facility] in March of 2016 and has done well. PAST MEDICAL HISTORY: Please see full dictated problem list. ALLERGIES: NONE. HABITS: Tobacco: None. Alcohol: None. CURRENT MEDICATIONS: Here in the hospital include: 1. Prednisone 7.5 mg in the morning and 2.5 mg in the evening. 2. Pepcid 20 mg IV. 3. Fenofibrate 48 mg daily. 4. Renvela 2 to 3 tabs t.i.d. with meals. 5. DuoNeb p.r.n. 6. Lopressor 12.5 mg p.o. b.i.d. 7. Folic acid 1 mg a day. 8. Fish oil 2000 mg b.i.d. 9. Lipitor 40 mg a day. 10. Gabapentin 900 mg at bedtime. 11. Insulin per sliding scale. 12. Tradjenta 5 mg daily. 13. Coumadin is currently on hold. 14. [place] p.r.n. REVIEW OF SYSTEMS: Patient is on BiPAP and while conversant, the review of systems is mostly unobta inable. PHYSICAL EXAMINATION: GENERAL: Awake and alert female currently on BiPAP. VITAL SIGNS: She is afebrile. Heart rate is 110 and atrial fibrillation, respirations are 12 to 16 . O2 saturation is 100% on a 50% BiPAP. SKIN: Warm and well perfused. HEAD: Normocephalic. EYES: Pupils appear round. Extraocular movements appear intact. Sclerae without icterus. PHARYNX: Cannot be visualized due to the BiPAP. NECK: Not examined. LUNGS: Clear. HEART: S1, S2 irregularly irregular. Heart soft I to II/ systolic murmur. ABDOMEN: Obese and soft, nontender. EXTREMITIES: No cyanosis, clubbing or edema. Well-functioning right upper extremity AV fistula. NEUROLOGIC: She does move all extremities. LABORATORY DATA: White count 7.0, hemoglobin 10.2, hematocrit 33.7, platelet count 207,000. INR is 3.11, sodium 141, potassium 5.0, chloride 102, bicarbonate 29, BUN 38, creatinine 5.59, glucose is 143, calcium 8.7, total bilirubin is 0, AST 26, ALT 24, alkaline phosphatase 41, total protein 7.5, albumin is 3.6. Blood gas from 0700 today, pH 7.256, pCO2 of 55.6, pO2 is 75.7. Chest x-ray showed cardiomegaly with minimal edema. CT scan of the abdomen and pelvis, no acute pathology. CT scan of the chest, no evidence for infilt rates, masses or effusions. CT scan of the cervical spine shows a type 2/3 DENS fracture as noted. PROBLEM LIST: 1. Status post C-spine trauma from fall with resultant C2 fracture, neurologically stable. 2. CO2 retention, currently maintained on BiPAP. Patient has a history of COPD, albeit has been re latively inactive in the past. 3. End-stage renal disease maintained on outpatient hemodialysis every Monday, Monday and Monday . Aortic stenosis, status post TAVR in March of 2016 and has done well. 4. Chronic atrial fibrillation, maintained on outpatient Coumadin: There has been no note recommen ding reversal per neurosurgery at this time, Coumadin is currently on hold. 5. History of sarcoidosis maintained on low-dose prednisone. 6. Diabetes mellitus, controlled on oral agents as an outpatient. 7. Hypertension, currently inactive. 8. Chronic obstructive pulmonary disease as noted. 9. Anemia of chronic kidney disease. 10. History of fluid overload in the past. RECOMMENDATIONS: 1. I will continue to follow her with you. 2. Any MRI scans must be done without any gadolinium, no contrast due to her being a dialysis patie nt. 3. We will schedule dialysis for tomorrow, Monday. 4. Further recommendations pending response to above. Dictated By: NICO HAY MD MM/NTS Conf#: [id number] DID#: [id number]
[2016-09-08] MEDS ORDERED: PHYTONADIONE 5 MG in DEXTROSE 5% 50 ML IVPB SCH (10:00)
--- NOTE | 2016-09-08 11:02 | CONS ---
Date/Time of Note Date/Time of Note DATE: 09/08/16 TIME: 10:52 Assessment/Plan Assessment/Plan Additional Assessment/Plan Chest x-ray was reviewed from yesterday which is showing cardiomegaly with changes of bilateral interstitial prominence. Likely old this is of history of sarcoidosis. Possibly some element of mild pulmonary edema as well. CT scan of C-spine is showing C2-C3 fracture. Next Serial ABGs were reviewed as well was showing progressively improving respiratory acidosis. Next Assessment recommend patient; next 1. Patient admitted for C-spine injury resulting in C2-C3 fracture. Currently maintained on C-spine collar. Because of high INR patient could not be taken to the OR by neurosurgical team. Patient currently getting vitamin K for correction of that. 2. Multiple other comorbidities including chronic atrial fibrillation, end- stage renal disease, long-term prednisone use, pulmonary sarcoidosis, diabetes, hypertension, history of coronary artery disease. 3. Severe respiratory acidosis, improving on BiPAP. Continue current treatment. Monitor PT/INR. Obtain a repeat blood gas. Once ABGs done I will review it and make further recommendations. If the patient's respiratory status compromises any further, patient will need to be intubated by the anesthesiologist likely with a fiberoptic laryngoscope in order to prevent any neck extension. Meanwhile will continue with hemodialysis. I did have a detailed discussion the patient's extended family at bedside and answered all their questions. Consultation Date/Type/Reason Admit Date/Time September 07, 2016 at 16:36 Date of Consultation: September 08, 2016 Type of Consultation: Pulmonary/critical care Reason for Consultation Pulmonary/critical care consultation obtained for evaluation of respiratory failure. History of presenting illness; patient is a pleasant 75-year-old Afro- [place] lady who was brought into the hospital yesterday after the patient fell from her chair while sleeping, upon further evaluation CT imaging of the C-spine was done which is showing C2-C3 fracture. She also was found to be in CO2 narcosis and has been admitted to ICU and started on BiPAP. By the time I saw the patient the patient is on BiPAP she is arousable and reports decreased shortness of breath. Denies any headache. Any chest pain. History was obtained from medical records. According to the patient's family the patient underwent hemodialysis yesterday morning and was doing fine then she returned home and was sleeping and for some unknown reason slumped over and fell on the ground resulting in C-spine injury. There was no loss of consciousness, no cardiac arrest event. Patient however was profoundly acidotic on admission which has been corrected now to some extent. Past medical history; 1. End-stage renal disease on hemodialysis. 2. Chronic atrial fibrillation, patient on long-term anticoagulation. 3. Diabetes. 4. Sarcoidosis, patient on long-term steroids as well. 5. Aortic stenosis. 6. History of colonic arteriovenous fistulas. 7. History of umbilical hernia repair. 8. History of bilateral cataract surgery. 9. History of coronary artery disease status post PTCA in the past. Medications; reviewed. Allergies; none. Social history; patient has been a lifelong non-smoker, no history of any alcohol or drug abuse. Family history; she is a . Has 5 children. Patient does have a supportive family. 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 Review of systems; a very limited review of systems could be obtained as the patient is on BiPAP. Patient reports decreased shortness of breath. Denies any headache, denies any neck pain, denies any abdominal pain, nausea vomiting. General exam; elderly lady, on BiPAP currently in no distress, awake. Constitutional: no complaints Respiratory: no complaints Cardiovascular: no complaints Gastrointestinal: no complaints Neurologic: other (She denies any focal weakness but does complain of severe neck pain) Past Surgical History Past Surgical Hx: angioplasty, other Social History Smoking Status: Unknown if ever smoked Exam/Review of Systems Vital Signs Vitals Vital Signs Date Time Temp Pulse Resp B/P Pulse Ox O2 Delivery O2 Flow Rate FiO2 09/08/16 10:00 106 16 108/97 100 BIPAP 09/08/16 09:22 50 09/08/16 08:00 98.0 09/08/16 02:30 15.0 Exam HEENT exam is; patient neck is in a C-spine collar therefore suppleness of neck was not evaluated. Bilateral intraocular lens implants are present. Patient is edentulous. No neck masses felt. Chest examination; diminished but clear breath sound. S1-S2 audible, irregular rhythm. Abdomen exam is; soft, protuberant. No organomegaly. Bowel sounds audible. Extremity exam is; no peripheral edema. Pulses 1+ bilaterally. [employer] exam; patient is awake and alert. Moves all 4 extremities on command. Results Result Diagram: 5/25/17 0435 09/08/16 0435 Results 24 hrs Laboratory Tests Test 09/07/16 16:05 09/07/16 18:36 09/08/16 02:37 09/08/16 02:41 White Blood Count 5.7 Red Blood Count 3.30 L Hemoglobin 10.2 L Hematocrit 30.9 L Mean Corpuscular Volume 93.6 Mean Corpuscular Hemoglobin 30.9 Mean Corpuscular Hemoglobin Concent 33.0 Red Cell Distribution Width 15.8 H Platelet Count 195 Mean Platelet Volume 10.5 H Neutrophils % 58.4 Lymphocytes % 27.7 Monocytes % 10.6 Eosinophils % 1.9 Basophils % 0.9 Nucleated Red Blood Cells % 0.0 Neutrophils # 3.3 Lymphocytes # 1.6 Monocytes # 0.6 Eosinophils # 0.1 Basophils # 0.1 Nucleated Red Blood Cells # 0.0 Prothrombin Time 31.2 #H Prothrombin Time Ratio 2.4 INR International Normalized Ratio 2.96 Activated Partial Thromboplast Time 32.0 Sodium Level 142 Potassium Level 3.4 L Chloride Level 99 Carbon Dioxide Level 31 Anion Gap 15 Blood Urea Nitrogen 35 H Creatinine 4.69 H Glucose Level 153 Hemoglobin A1c 5.6 Calcium Level 8.7 Total Bilirubin 0.0 L Direct Bilirubin 0.00 Indirect Bilirubin 0.0 Aspartate Amino Transf (AST/SGOT) 18 Alanine Aminotransferase (ALT/SGPT) 24 Alkaline Phosphatase 43 Troponin I 0.041 Total Protein 7.1 Albumin 3.4 Globulin 3.70 H Albumin/Globulin Ratio 0.91 Lipase 197 Bedside Glucose 139 162 Blood Gas Specimen Source Blood arterial Arterial Blood Date Drawn 09/08/2016 2:32:14 AM Arterial Blood pH (Temp corrected) 6.952 *L Arterial Blood pCO2 (Temp correct) 160.8 *H Arterial Blood pO2 (Temp corrected) 200.2 H Arterial Blood HCO3 34.7 H Arterial Blood Base Excess -0.9 Arterial Blood Oxygen Saturation 98.6 Soy Test ACCEPTAB Arterial Blood Gas Puncture Site Left Radial Arterial Blood Carboxyhemoglobin 0.2 Arterial Blood Methemoglobin 0.5 Blood Gas A-a O2 Differential 352.0 H Oxyhemoglobin Percent 97.9 Total Hemoglobin 11.8 L Blood Gas Temperature 37.0 Blood Gas Modality MASK - NRB FiO2 100.0 Blood Gas Critical Value Read Back CHRISTAL PAGAN Blood Gas Notified Whom AA Blood Gas Notified Time 09/08/2016 2:47:06 AM Test 09/08/16 03:36 09/08/16 04:35 09/08/16 06:00 09/08/16 07:00 Blood Gas Specimen Source Blood arterial Blood arterial Arterial Blood Date Drawn 09/08/2016 3:20:11 AM 09/08/2016 7:30:56 AM Arterial Blood pH (Temp corrected) 7.223 *L 7.256 *L Arterial Blood pCO2 (Temp correct) 73.7 H 55.6 H Arterial Blood pO2 (Temp corrected) 334.3 H 75.7 L Arterial Blood HCO3 29.7 H 24.2 Arterial Blood Base Excess 0.5 -3.5 L Arterial Blood Oxygen Saturation 99.5 93.9 L Soy Test N/A ACCEPTAB Arterial Blood Gas Puncture Site LB Left Radial Arterial Blood Carboxyhemoglobin 0.1 0.5 Arterial Blood Methemoglobin 0.5 0.3 Blood Gas A-a O2 Differential 305.0 H 218.3 H Oxyhemoglobin Percent 98.9 93.1 Total Hemoglobin 11.7 L 12.0 Blood Gas Temperature 37.0 37.0 Blood Gas Respiration Rate 20.0 20.0 Blood Gas Actual Respiration Rate 26 20 Blood Gas Modality MASK - BIPAP MASK - BIPAP FiO2 100.0 50.0 Blood Gas Pressure Support 14 Blood Gas IPAP/EPAP Ratio 20/6 20/6 Blood Gas Critical Value Read Back Mere SCHROEDER MD, RN Blood Gas Notified Whom ROSSY BRANTLEY Blood Gas Notified Time 09/08/2016 4:13:25 AM 09/08/2016 7:57:15 AM White Blood Count 7.0 # Red Blood Count 3.34 L Hemoglobin 10.2 L Hematocrit 33.7 L Mean Corpuscular Volume 100.9 Mean Corpuscular Hemoglobin 30.5 Mean Corpuscular Hemoglobin Concent 30.3 L Red Cell Distribution Width 15.9 H Platelet Count 207 Mean Platelet Volume 11.2 H Neutrophils % 85.3 H Band Neutrophils % 0.0 Lymphocytes % 7.6 L Monocytes % 6.1 Eosinophils % 0.0 Basophils % 0.3 Nucleated Red Blood Cells % 0.0 Neutrophils # 6.0 Lymphocytes # 0.5 L Monocytes # 0.4 Eosinophils # 0.0 Basophils # 0.0 Nucleated Red Blood Cells # 0.0 Sodium Level 141 Potassium Level 5.0 Chloride Level 102 Carbon Dioxide Level 29 Anion Gap 15 Blood Urea Nitrogen 38 H Creatinine 5.59 H Glucose Level 143 Calcium Level 8.7 Total Bilirubin 0.0 L Direct Bilirubin 0.00 Indirect Bilirubin 0.0 Aspartate Amino Transf (AST/SGOT) 26 Alanine Aminotransferase (ALT/SGPT) 24 Alkaline Phosphatase 41 L Total Protein 7.5 Albumin 3.6 Globulin 3.90 H Albumin/Globulin Ratio 0.92 Prothrombin Time 32.5 H Prothrombin Time Ratio 2.5 INR International Normalized Ratio 3.11 Activated Partial Thromboplast Time 36.3 H Test 09/08/16 08:37 Bedside Glucose 98 Medications Medications Current Medications Acetaminophen/ Hydrocodone Bitart ([place] (5/325)) 1 tab Q6H PRN PO MODERATE PAIN LEVEL 4-6; Start 09/07/16 at 17:30 Acetaminophen/ Hydrocodone Bitart ([place] (5/325)) 2 tab Q6H PRN PO SEVERE PAIN LEVEL 7-10; Start 09/07/16 at 17:30 Docusate Sodium (Colace) 100 mg Q12H PRN PO CONSTIPATION; Start 09/07/16 at 17: 30 Sodium Biphosphate/ Sodium Phosphate ([place] En[place]) 133 ml DAILY PRN [place] CONSTIPATION; Start 09/07/16 at 17:30 Famotidine (Pepcid Iv) 20 mg DAILY IV Last administered on 09/08/16 09:34; Admin Dose 20 MG; Start 09/08/16 at 09:00 Heparin Sodium (Porcine) (Heparin (5000 Units/0.5 ml)) 5,000 unit Q12 SC Last administered on 09/08/16 09:37; Admin Dose 5,000 UNIT; Start 09/07/16 at 21:00 Folic Acid (Folic Acid) 1 mg BID PO ; Start 09/07/16 at 21:00 Metoprolol Tartrate (Lopressor) 12.5 mg BID PO ; Start 09/07/16 at 23:00 Fenofibrate (Tricor) 48 mg QAM PO ; Start 09/08/16 at 09:00 Linagliptin (Tradjenta) 5 mg DAILY PO ; Start 09/07/16 at 18:00 Insulin Glargine (Lantus) 2 unit BID@08,20 SC Last administered on 09/08/16 09 :38; Admin Dose 2 UNIT; Start 09/07/16 at 20:00 Fish Oil (Fish Oil) 2,000 mg BID PO ; Start 09/07/16 at 21:00 Salmeterol Xinafoate/ Fluticasone (Advair 250/50 Diskus) 1 inh BID INH Last administered on 09/08/16 00:11; Admin Dose 1 INH; Start 09/07/16 at 23:00 Atorvastatin Calcium (Lipitor) 40 mg QHS PO ; Start 09/07/16 at 21:00 Gabapentin (Neurontin) 900 mg QHS PO ; Start 09/07/16 at 21:00 Prednisone (Prednisone) 7.5 mg QAM PO ; Start 09/08/16 at 09:00 Miscellaneous Information 1 ea NOTE XX ; Start 09/07/16 at 18:00 Glucose (Glutose) 15 gm Q15M PRN PO DECREASED GLUCOSE; Start 09/07/16 at 18:00 Glucose (Glutose) 22.5 gm Q15M PRN PO DECREASED GLUCOSE; Start 09/07/16 at 18: 00 Dextrose (D50w Syringe) 25 ml Q15M PRN IV DECREASED GLUCOSE; Start 09/07/16 at 18:00 Dextrose (D50w Syringe) 50 ml Q15M PRN IV DECREASED GLUCOSE; Start 09/07/16 at 18:00 Glucagon (Glucagen) 1 mg Q15M PRN IM DECREASED GLUCOSE; Start 09/07/16 at 18:00 Glucose (Glutose) 15 gm Q15M PRN BUCCAL DECREASED GLUCOSE; Start 09/07/16 at 18 :00 Naloxone HCl (Narcan) 0.2 mg Q2M PRN IV DECREASED REPIRATORY RATE Last administered on 09/08/16 02:44; Admin Dose 0.2 MG; Start 09/08/16 at 02:30 LAWRENCE GOODE September 08, 2016 11:02
[2016-09-08 11:10] LABS: Allen Test ACCEPTAB; Arterial Base Excess -4.6 mmol/L (-3.0-3); Arterial COHb 0.3 % (0.0-3.0); Arterial Fraction of Oxyhgb 96.6 % (93.0-99.0); Arterial HCO3 22.3 mmol/L (22.0-26.0); Arterial MetHb 0.3 % (0.0-1.5); Arterial Total Hemglobin 11.9 g/dl (12.0-18.0); Blood Gas IEPAP 24/6; MODE MASK - BIPAP
--- NOTE | 2016-09-08 15:47 | RADRPT ---
PROCEDURE: MR Cervical Spine. CLINICAL INDICATION: Neck pain. C2 fracture on CT. TECHNIQUE: An MRI of the cervical spine was performed on a GE short bore high-definition 1.5 harley scanner utilizing the following sequences: Sagittal T1 weighted, sagittal and axial T2 weighted, sa gittal T2 weighted with fat saturation. COMPARISON: CT c-spine 09/07/2016. FINDINGS: There is subtle abnormal bone marrow signal in the dens and vertebral body of C2 in keeping with kno wn comminuted fracture of the C2. There is mild prevertebral soft tissue swelling from the clivus d own through C3. There is abnormal T2 hyperintensity in the midline posterior cord at the level of C 2-C3 down to C6-C7. C2-3: There is right posterolateral displacement of the fracture fragment of C2 resulting in mild t o moderate right neural foraminal stenosis. The central canal and left neural foramen remain adequa tely patent. C3-4: There is moderate disk height loss with disk desiccation. Disk osteophyte complex, prominent right-sided uncovertebral spurring with moderate facet arthropathy are seen at this level. There is moderate to severe right and mild to moderate left neural foraminal stenosis. The central canal re kristina adequately patent. C4-5: The disk height is maintained. There is mild disk desiccation. The central canal and bilater al neural foramina are adequately patent. C5-6: There is mild disk height loss with disk desiccation. Disk osteophyte complex, prominent unco vertebral spurring and mild facet arthropathy are seen at this level. There is moderate right and m ild left neural foraminal stenosis. The central canal remains adequately patent. C6-7: The disk height is maintained. There is disk desiccation. The central canal and bilateral ne ural foramina are adequately patent. C7-T1: The disk height is maintained. There is disk desiccation. The central canal and bilateral n eural foramina are adequately patent. IMPRESSION: The study is limited due to significant motion artifacts. 1. Subtle abnormal bone marrow signal involving body of the C2 and dens in keeping with known commi nuted fracture of the C2. Minimal right posterolateral displacement of the fracture fragments resul ting in mild to moderate right foraminal stenosis. 2. Long segment posterior spinal cord signal abnormality at the level of C2-C3 through C6-C7. This is nonspecific but can be seen with subacute combined degeneration of the cord (vitamin B12 deficie ncy). The differential includes demyelination, infectious/inflammatory processes and ischemia. 3. Cervical spondylosis more evident at C3-C4 and C5-C6, as described above. RPTAT: BB .Thanh Palmer MD, Date Time Electronically viewed and signed by .Thanh Palmer MD, on 09/08/2016 15:47 .O/
[2016-09-08] MEDS: traMADol 50 MG TAB PO PRN (15:57)
--- NOTE | 2016-09-08 19:27 | CONS ---
Date/Time of Note Date/Time of Note DATE: 09/08/16 TIME: 19:08 Assessment/Plan Assessment/Plan Chief Complaint/Hosp Course Impression: # Atrial Fibrillation- non valvular, chronic currently in rvr. anticoag with coumadin at baseline. # s/p TAVR- stable # s/p fall with C2 cervical fracture # COPD on BIPAP # ESRD on iHD # HTN, currently hypotensive Recommendations: - hold bp meds given hypotension - add amiodraone gtt for rate control if hr remains elevated - if not improvement can add digoxin as well, but just loading dose and dose by levels given on iHD - ok to reverse anticoag given C2 fxr, possible need for surgery - will follow Problems: Consultation Date/Type/Reason Admit Date/Time September 07, 2016 at 16:36 Date of Consultation: September 08, 2016 Type of Consultation: Cardiology Reason for Consultation Afib Referring Provider: TOMER GARCIA MD Hx of Present Illness Ms. Arnold is a pleasant 75 y.o. AA woman with h/o of s/p TAVR, CAD s/p PCI , LV diastolic dysfunction, normal LVEF, PAF on coumadin, ESRD on iHD> Pt had a fll out of her chair when sleeping forward onto her head. Brought to [facility] and found to have C2-C3 fracture. She also was found to be in CO2 narcosis and has been admitted to ICU and started on BiPAP. Pt arousable but has poor fitting CPAP mask on and c-collar, unable to get full history, majority of history obtained from chart/nursing/other MD. Fall was unwitnessed, but no report of chest pain, dizziness, syncope. occured after iHD. had been in normal state of health. also in afib on presentation with rvr. Subjective hx not possible: pt critical (unable to obtain full ros) Constitutional: no complaints Neurologic: other (She denies any focal weakness but does complain of severe neck pain) Past Medical History History of Aortic Valve Replacement TAVR transfemoral, 26 mm self-expanding EvolutR Valve [facility] 03/31/16 Arteriosclerotic coronary artery disease (414.00) (I25.10) RCA PCI '03 but neg caths ' and .[id number] Atrial fibrillation (427.31) (I48.91) paroxysmal Carotid artery disease (447.9) (I77.9) mild RCCA,ADALI<RECA <50% on duplex ESRD on dialysis since 12/23 Diabetes mellitus (250.00) (E11.9) Essential hypertension (401.9) (I10) Hypercholesterolemia (272.0) (E78.00) Obstructive sleep apnea (327.23) (G47.33) 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 ) Sarcoidosis (135) (D86.9 Past Surgical History History of Aortic Valve Replacement TAVR transfemoral, 26 mm self-expanding Evolut R Valve [facility] 03/31/16 History of Hemodialysis Access Type Arteriovenous Fistula ' on left ...rt ' History of Hysterectomy ' with uni oomph History of Partial Colectomy emergent exploratory surgery for perf colon Rt hemicolec strangulated hernia repair and abscess drainage 11/25 History of Tonsillectomy - child Family History Significant Family History: hypertension Social History Alcohol Use: none Smoking Status: Never smoker Drug Use: none Exam/Review of Systems Vital Signs Vitals Vital Signs Date Time Temp Pulse Resp B/P Pulse Ox O2 Delivery O2 Flow Rate FiO2 09/08/16 18:29 114 20 88/41 100 Non Rebreather 09/08/16 15:51 15.0 09/08/16 13:45 40 09/08/16 12:00 98.3 Exam Constitutional: other (pt responsive, but on cpap which unable to obtain full history) Psych: nl mood/affect Head: atraumatic, normocephalic Eyes: EOMI, nl conjunctiva, nl lids ENMT: other (c collar in place, unalbe to assess fully) Neck: other (in ccollar unable to assess fully ) Respiratory: clear to auscultation, normal air movement Cardiovascular: other (tachy irregularly irregular, nl s1s2, ii/vi wong rusb) Gastrointestinal: non-tender, soft Extremities: normal pulses, other (chronic ble edema, pitting with scaling of skin, chronic venous stasis change) 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: nl mental status, nl speech Skin: nl turgor Results Result Diagram: 09/08/16 0435 09/08/16 0435 Results 24 hrs Laboratory Tests Test 09/08/16 02:37 09/08/16 02:41 09/08/16 03:36 09/08/16 04:35 Blood Gas Specimen Source Blood arterial Blood arterial Arterial Blood Date Drawn 09/08/2016 2:32:14 AM 09/08/2016 3:20:11 AM Arterial Blood pH (Temp corrected) 6.952 *L 7.223 *L Arterial Blood pCO2 (Temp correct) 160.8 *H 73.7 H Arterial Blood pO2 (Temp corrected) 200.2 H 334.3 H Arterial Blood HCO3 34.7 H 29.7 H Arterial Blood Base Excess -0.9 0.5 Arterial Blood Oxygen Saturation 98.6 99.5 Soy Test ACCEPTAB N/A Arterial Blood Gas Puncture Site Left Radial LB Arterial Blood Carboxyhemoglobin 0.2 0.1 Arterial Blood Methemoglobin 0.5 0.5 Blood Gas A-a O2 Differential 352.0 H 305.0 H Oxyhemoglobin Percent 97.9 98.9 Total Hemoglobin 11.8 L 11.7 L Blood Gas Temperature 37.0 37.0 Blood Gas Modality MASK - NRB MASK - BIPAP FiO2 100.0 100.0 Blood Gas Critical Value Read Back Mere LUTZ RN, MD Blood Gas Notified Whom BRI BLAIR Blood Gas Notified Time 09/08/2016 2:47:06 AM 09/08/2016 4:13:25 AM Bedside Glucose 162 Blood Gas Respiration Rate 20.0 Blood Gas Actual Respiration Rate 26 Blood Gas Pressure Support 14 Blood Gas IPAP/EPAP Ratio 20/6 White Blood Count 7.0 # Red Blood Count 3.34 L Hemoglobin 10.2 L Hematocrit 33.7 L Mean Corpuscular Volume 100.9 Mean Corpuscular Hemoglobin 30.5 Mean Corpuscular Hemoglobin Concent 30.3 L Red Cell Distribution Width 15.9 H Platelet Count 207 Mean Platelet Volume 11.2 H Neutrophils % 85.3 H Band Neutrophils % 0.0 Lymphocytes % 7.6 L Monocytes % 6.1 Eosinophils % 0.0 Basophils % 0.3 Nucleated Red Blood Cells % 0.0 Neutrophils # 6.0 Lymphocytes # 0.5 L Monocytes # 0.4 Eosinophils # 0.0 Basophils # 0.0 Nucleated Red Blood Cells # 0.0 Sodium Level 141 Potassium Level 5.0 Chloride Level 102 Carbon Dioxide Level 29 Anion Gap 15 Blood Urea Nitrogen 38 H Creatinine 5.59 H Glucose Level 143 Calcium Level 8.7 Total Bilirubin 0.0 L Direct Bilirubin 0.00 Indirect Bilirubin 0.0 Aspartate Amino Transf (AST/SGOT) 26 Alanine Aminotransferase (ALT/SGPT) 24 Alkaline Phosphatase 41 L Total Protein 7.5 Albumin 3.6 Globulin 3.90 H Albumin/Globulin Ratio 0.92 Test 09/08/16 06:00 09/08/16 07:00 09/08/16 08:37 09/08/16 10:19 Prothrombin Time 32.5 H Prothrombin Time Ratio 2.5 INR International Normalized Ratio 3.11 Activated Partial Thromboplast Time 36.3 H Blood Gas Specimen Source Blood arterial Blood arterial Arterial Blood Date Drawn 09/08/2016 7:30:56 AM 09/08/2016 11:01:05 AM Arterial Blood pH (Temp corrected) 7.256 *L 7.279 *L Arterial Blood pCO2 (Temp correct) 55.6 H 48.6 H Arterial Blood pO2 (Temp corrected) 75.7 L 106.8 H Arterial Blood HCO3 24.2 22.3 Arterial Blood Base Excess -3.5 L -4.6 L Arterial Blood Oxygen Saturation 93.9 L 97.2 Soy Test ACCEPTAB ACCEPTAB Arterial Blood Gas Puncture Site Left Radial Right Radial Arterial Blood Carboxyhemoglobin 0.5 0.3 Arterial Blood Methemoglobin 0.3 0.3 Blood Gas A-a O2 Differential 218.3 H 195.0 H Oxyhemoglobin Percent 93.1 96.6 Total Hemoglobin 12.0 11.9 L Blood Gas Temperature 37.0 37.0 Blood Gas Respiration Rate 20.0 20.0 Blood Gas Actual Respiration Rate 20 22 Blood Gas Modality MASK - BIPAP MASK - BIPAP FiO2 50.0 50.0 Blood Gas IPAP/EPAP Ratio 20/6 24 Blood Gas Critical Value Read Back Eloy MORRIS RN Blood Gas Notified Whom FERCHO BRANTLEY Blood Gas Notified Time 09/08/2016 7:57:15 AM 09/08/2016 11:10:10 AM Bedside Glucose 98 Test 09/08/16 11:28 09/08/16 16:57 Bedside Glucose 73 103 Medications Medications Current Medications Acetaminophen/ Hydrocodone Bitart ([place] (5/325)) 1 tab Q6H PRN PO MODERATE PAIN LEVEL 4-6; Start 09/07/16 at 17:30 Acetaminophen/ Hydrocodone Bitart ([place] (5/325)) 2 tab Q6H PRN PO SEVERE PAIN LEVEL 7-10; Start 09/07/16 at 17:30 Docusate Sodium (Colace) 100 mg Q12H PRN PO CONSTIPATION; Start 09/07/16 at 17: 30 Sodium Biphosphate/ Sodium Phosphate (Fleet Enema) 133 ml DAILY PRN [place] CONSTIPATION; Start 09/07/16 at 17:30 Famotidine (Pepcid Iv) 20 mg DAILY IV Last administered on 09/08/16 09:34; Admin Dose 20 MG; Start 09/08/16 at 09:00 Heparin Sodium (Porcine) (Heparin (5000 Units/0.5 ml)) 5,000 unit Q12 SC Last administered on 09/08/16 09:37; Admin Dose 5,000 UNIT; Start 09/07/16 at 21:00 Folic Acid (Folic Acid) 1 mg BID PO ; Start 09/07/16 at 21:00 Metoprolol Tartrate (Lopressor) 12.5 mg BID PO ; Start 09/07/16 at 23:00 Fenofibrate (Tricor) 48 mg QAM PO ; Start 09/08/16 at 09:00 Linagliptin (Tradjenta) 5 mg DAILY PO ; Start 09/07/16 at 18:00 Insulin Glargine (Lantus) 2 unit BID@08,20 SC Last administered on 09/08/16 09 :38; Admin Dose 2 UNIT; Start 09/07/16 at 20:00 Fish Oil (Fish Oil) 2,000 mg BID PO ; Start 09/07/16 at 21:00 Salmeterol Xinafoate/ Fluticasone (Advair 250/50 Diskus) 1 inh BID INH Last administered on 09/08/16 00:11; Admin Dose 1 INH; Start 09/07/16 at 23:00 Atorvastatin Calcium (Lipitor) 40 mg QHS PO ; Start 09/07/16 at 21:00 Gabapentin (Neurontin) 900 mg QHS PO ; Start 09/07/16 at 21:00 Prednisone (Prednisone) 7.5 mg QAM PO ; Start 09/08/16 at 09:00 Miscellaneous Information 1 ea NOTE XX ; Start 09/07/16 at 18:00 Glucose (Glutose) 15 gm Q15M PRN PO DECREASED GLUCOSE; Start 09/07/16 at 18:00 Glucose (Glutose) 22.5 gm Q15M PRN PO DECREASED GLUCOSE; Start 09/07/16 at 18: 00 Dextrose (D50w Syringe) 25 ml Q15M PRN IV DECREASED GLUCOSE; Start 09/07/16 at 18:00 Dextrose (D50w Syringe) 50 ml Q15M PRN IV DECREASED GLUCOSE; Start 09/07/16 at 18:00 Glucagon (Glucagen) 1 mg Q15M PRN IM DECREASED GLUCOSE; Start 09/07/16 at 18:00 Glucose (Glutose) 15 gm Q15M PRN BUCCAL DECREASED GLUCOSE; Start 09/07/16 at 18 :00 Naloxone HCl (Narcan) 0.2 mg Q2M PRN IV DECREASED REPIRATORY RATE Last administered on 09/08/16 02:44; Admin Dose 0.2 MG; Start 09/08/16 at 02:30 Tramadol HCl (Ultram) 50 mg Q8H PRN PO PAIN Last administered on 09/08/16 15: 57; Admin Dose 50 MG; Start 09/08/16 at 16:00 Procedures Procedures EKG: afib with rvr MRI cspine reviewed- c2 fxr CT chest report reviewec 1. No evidence for focal infiltrates, masses, pleural effusions or pneumothorax. 2. Extensive atherosclerotic vascular disease and intravascular aortic stents. 3. Moderate cardiomegaly 4. Multiple calcifications in the left greater than right levels 6 and 7 lymph nodes. 5. Bibasilar discoid atelectasis and bilateral interstitial crowding with low lung volumes 6. Atrophic bilateral kidneys with bilateral renal cortical cysts. EVELYN RANKIN September 08, 2016 19:21
[2016-09-08 19:45] LABS: AADO2 Arterial 161.4 mmHg (7.0-24.0); Arterial Base Excess -1.9 mmol/L (-3.0-3); Arterial COHb 0.1 % (0.0-3.0); Arterial Fraction of Oxyhgb 98.3 % (93.0-99.0); Arterial HCO3 25.3 mmol/L (22.0-26.0); Arterial MetHb 0.3 % (0.0-1.5); Arterial Total Hemglobin 11.3 g/dl (12.0-18.0); MODE MASK - SIMPLE
[2016-09-08] MEDS ORDERED: AMIODARONE 900 MG in DEXTROSE 5% 482 ML IV SCH ×4 (20:00)
[2016-09-08] MEDS: HYDROCODONE/APAP (5/325) TAB PO PRN (20:34)
[2016-09-08] MEDS: ATORVASTATIN 40 MG TAB PO SCH (21:00)
[2016-09-08] MEDS: GABAPENTIN 300 MG CAP PO SCH (21:00)
[2016-09-08] MEDS: DEXTROSE 5%-0.225% NACL 1,000 ML IV SCH (22:34)
[2016-09-08] MEDS ORDERED: PHENYLephrine 20MG IN 250 ML 250 ML IV SCH (23:30)
[2016-09-09] VITALS (63 sets, daily range): BP systolic 88–130; BP diastolic 28–108; PULSE 88–124; RESP 9–28
[2016-09-09] MEDS ORDERED: AMIODARONE 900 MG in DEXTROSE 5% 482 ML IV SCH (02:00)
[2016-09-09] MEDS: HYDROCODONE/APAP (5/325) TAB PO PRN (02:23)
[2016-09-09] MEDS: INSULIN ASPART [NOVOLOG] 3 ML PEN SC SCH ×5 (05:00→20:38)
[2016-09-09 05:28] LABS: ADD SCAN DIFF NO
[2016-09-09 05:35] LABS: BASOPHILS % 0.3 % (0.0-2.0); EOSINOPHILS % 0.2 % (0.0-7.0); HEMATOCRIT 30.9 % (37.0-47.0); HEMOGLOBIN 9.9 g/dl (12.0-16.0); LYMPHOCYTES # 1.1 10^3/ul (0.8-2.9); LYMPHOCYTES % 9.6 % (15.0-51.0); MEAN CORPUSCULAR HEMOGLOBIN 30.2 pg (29.0-33.0); MEAN CORPUSCULAR VOLUME 94.2 fl (82.0-101.0); MEAN PLATELET VOLUME 10.5 fl (7.4-10.4); MONOCYTE # 0.4 10^3/ul (0.3-0.9); MONOCYTES % 3.8 % (0.0-11.0); NEUTROPHIL # 9.8 10^3/ul (1.6-7.5); NEUTROPHILS % 85.7 % (39.0-77.0); PLATELET COUNT 185 10^3/UL (140-415); RED BLOOD COUNT 3.28 10^6/ul (4.20-5.40); RED CELL DISTRIBUTION WIDTH 15.3 % (11.5-14.5); WHITE BLOOD COUNT 11.5 10^3/ul (4.8-10.8)
[2016-09-09 06:00] LABS: INR 1.58; PT RATIO 1.5
[2016-09-09] MEDS: SEVELAMER CARBONATE 0.8 GM PKT PO SCH ×3 (07:05→16:44)
--- NOTE | 2016-09-09 07:48 | CONS ---
Date/Time of Note Date/Time of Note DATE: 09/09/16 TIME: 07:45 Assessment/Plan Assessment/Plan Additional Assessment/Plan 1. CX spine fx without neurologic sequela 2. CKD, on HD, now being dialyzed and will evaluate for the same tomm 3. Inc SOB, prob from vol overload, CXR ordered post dialysis 4. Atrial fibrillation, Coumadin per IM Consultation Date/Type/Reason Admit Date/Time September 07, 2016 at 16:36 Initial Consult Date 09/08/16 Type of Consultation: Cardiology Referring Provider: TOMER GARCIA MD Detailed Summary Respiratory: shortness of breath (is mild, BIPAP started last night for the same) Cardiovascular: No chest pain Gastrointestinal: no complaints Genitourinary: no complaints Musculoskeletal: neck pain (mild-mod pain) Exam/Review of Systems Vital Signs Vitals Vital Signs Date Time Temp Pulse Resp B/P Pulse Ox O2 Delivery O2 Flow Rate FiO2 09/09/16 07:33 98 99 40 09/09/16 06:29 111/58 BIPAP 09/09/16 05:30 20 09/09/16 04:00 98.9 09/08/16 23:00 10.0 Intake and Output 09/08/16 09/08/16 09/09/16 15:00 23:00 07:00 Intake Total 0 ml Output Total 0 ml Balance 0 ml Exam Neck: No other (cx collar in place) Respiratory: clear to auscultation, diminished breath sounds Cardiovascular: No irregular rhythm Gastrointestinal: soft Extremities: No edema (and no calf tend) Results Result Diagram: 09/09/16 0440 09/08/16 0435 Results 24 hrs Laboratory Tests Test 09/08/16 08:37 09/08/16 10:19 09/08/16 11:28 09/08/16 16:57 Bedside Glucose 98 73 103 Blood Gas Specimen Source Blood arterial Arterial Blood Date Drawn 09/08/2016 11:01:05 AM Arterial Blood pH (Temp corrected) 7.279 *L Arterial Blood pCO2 (Temp correct) 48.6 H Arterial Blood pO2 (Temp corrected) 106.8 H Arterial Blood HCO3 22.3 Arterial Blood Base Excess -4.6 L Arterial Blood Oxygen Saturation 97.2 Soy Test ACCEPTAB Arterial Blood Gas Puncture Site Right Radial Arterial Blood Carboxyhemoglobin 0.3 Arterial Blood Methemoglobin 0.3 Blood Gas A-a O2 Differential 195.0 H Oxyhemoglobin Percent 96.6 Total Hemoglobin 11.9 L Blood Gas Temperature 37.0 Blood Gas Respiration Rate 20.0 Blood Gas Actual Respiration Rate 22 Blood Gas Modality MASK - BIPAP FiO2 50.0 Blood Gas IPAP/EPAP Ratio 24/6 Blood Gas Critical Value Read Back Eloy MORRIS RN Blood Gas Notified Whom FERCHO Blood Gas Notified Time 09/08/2016 11:10:10 AM Test 09/08/16 20:00 09/08/16 20:48 09/08/16 22:30 09/09/16 04:40 Blood Gas Specimen Source Blood arterial Arterial Blood Date Drawn 09/08/2016 7:30:03 PM Arterial Blood pH (Temp corrected) 7.285 *L Arterial Blood pCO2 (Temp correct) 54.5 H Arterial Blood pO2 (Temp corrected) 155.6 H Arterial Blood HCO3 25.3 Arterial Blood Base Excess -1.9 Arterial Blood Oxygen Saturation 98.7 Soy Test N/A Arterial Blood Gas Puncture Site LB Arterial Blood Carboxyhemoglobin 0.1 Arterial Blood Methemoglobin 0.3 Blood Gas A-a O2 Differential 161.4 H Oxyhemoglobin Percent 98.3 Total Hemoglobin 11.3 L Blood Gas Temperature 37.0 Blood Gas Modality MASK - SIMPLE FiO2 53.0 Blood Gas Critical Value Read Back NOEL RN Blood Gas Notified Whom ROSSY Blood Gas Notified Time 09/08/2016 7:45:38 PM Bedside Glucose 93 110 White Blood Count 11.5 #H Red Blood Count 3.28 L Hemoglobin 9.9 L Hematocrit 30.9 L Mean Corpuscular Volume 94.2 Mean Corpuscular Hemoglobin 30.2 Mean Corpuscular Hemoglobin Concent 32.0 Red Cell Distribution Width 15.3 H Platelet Count 185 Mean Platelet Volume 10.5 H Neutrophils % 85.7 H Lymphocytes % 9.6 L Monocytes % 3.8 Eosinophils % 0.2 Basophils % 0.3 Nucleated Red Blood Cells % 0.0 Neutrophils # 9.8 H Lymphocytes # 1.1 Monocytes # 0.4 Eosinophils # 0.0 Basophils # 0.0 Nucleated Red Blood Cells # 0.0 Prothrombin Time 19.0 #H Prothrombin Time Ratio 1.5 INR International Normalized Ratio 1.58 Test 09/09/16 05:20 Bedside Glucose 118 Medications Medications Current Medications Acetaminophen/ Hydrocodone Bitart ([place] (5/325)) 1 tab Q6H PRN PO MODERATE PAIN LEVEL 4-6 Last administered on 09/09/16 02:23; Admin Dose 1 TAB; Start at 17:30 Acetaminophen/ Hydrocodone Bitart ([place] (5/325)) 2 tab Q6H PRN PO SEVERE PAIN LEVEL 7-10; Start 09/07/16 at 17:30 Docusate Sodium (Colace) 100 mg Q12H PRN PO CONSTIPATION; Start 09/07/16 at 17: 30 Sodium Biphosphate/ Sodium Phosphate (Fleet Enema) 133 ml DAILY PRN [place] CONSTIPATION; Start 09/07/16 at 17:30 Famotidine (Pepcid Iv) 20 mg DAILY IV Last administered on 09/08/16 09:34; Admin Dose 20 MG; Start 09/08/16 at 09:00 Heparin Sodium (Porcine) (Heparin (5000 Units/0.5 ml)) 5,000 unit Q12 SC Last administered on 09/08/16 22:33; Admin Dose 5,000 UNIT; Start 09/07/16 at 21:00 Folic Acid (Folic Acid) 1 mg BID PO ; Start 09/07/16 at 21:00 Metoprolol Tartrate (Lopressor) 12.5 mg BID PO ; Start 09/07/16 at 23:00 Fenofibrate (Tricor) 48 mg QAM PO ; Start 09/08/16 at 09:00 Linagliptin (Tradjenta) 5 mg DAILY PO ; Start 09/07/16 at 18:00 Insulin Glargine (Lantus) 2 unit BID@08,20 SC Last administered on 09/08/16 22 :31; Admin Dose 2 UNIT; Start 09/07/16 at 20:00 Fish Oil (Fish Oil) 2,000 mg BID PO ; Start 09/07/16 at 21:00 Salmeterol Xinafoate/ Fluticasone (Advair 250/50 Diskus) 1 inh BID INH Last administered on 09/08/16 00:11; Admin Dose 1 INH; Start 09/07/16 at 23:00 Atorvastatin Calcium (Lipitor) 40 mg QHS PO ; Start 09/07/16 at 21:00 Gabapentin (Neurontin) 900 mg QHS PO ; Start 09/07/16 at 21:00 Prednisone (Prednisone) 7.5 mg QAM PO ; Start 09/08/16 at 09:00 Miscellaneous Information 1 ea NOTE XX ; Start 09/07/16 at 18:00 Glucose (Glutose) 15 gm Q15M PRN PO DECREASED GLUCOSE; Start 09/07/16 at 18:00 Glucose (Glutose) 22.5 gm Q15M PRN PO DECREASED GLUCOSE; Start 09/07/16 at 18: 00 Dextrose (D50w Syringe) 25 ml Q15M PRN IV DECREASED GLUCOSE; Start 09/07/16 at 18:00 Dextrose (D50w Syringe) 50 ml Q15M PRN IV DECREASED GLUCOSE; Start 09/07/16 at 18:00 Glucagon (Glucagen) 1 mg Q15M PRN IM DECREASED GLUCOSE; Start 09/07/16 at 18:00 Glucose (Glutose) 15 gm Q15M PRN BUCCAL DECREASED GLUCOSE; Start 09/07/16 at 18 :00 Naloxone HCl (Narcan) 0.2 mg Q2M PRN IV DECREASED REPIRATORY RATE Last administered on 09/08/16 02:44; Admin Dose 0.2 MG; Start 09/08/16 at 02:30 Tramadol HCl 50 mg 50 mg Q8H PRN PO PAIN Last administered on 09/08/16 15:57; Admin Dose 50 MG; Start 09/08/16 at 16:00 Amiodarone HCl 900 mg/Dextrose 500 ml @ 16.7 mls/hr Q24H IV Last administered on 09/09/16 02:33; Admin Dose 16.7 MLS/HR; Start 09/09/16 at 02:00; Stop at 18:00 Dextrose/Sodium Chloride 1,000 ml @ 50 mls/hr Q20H IV Last administered on 22:34; Admin Dose 50 MLS/HR; Start 09/08/16 at 21:30 Phenylephrine HCl/ Dextrose (Efraín-Syneph/D5W) 500 ml @ 75 mls/hr TITRATE IV ; Start 09/09/16 at 03:00 Insulin Aspart (Novolog Insulin Pen) NOVOLOG *MILD* ALGORI... Q4 SC ; Start at 05:00 ARISTIDES WATKINS MD September 09, 2016 07:48
--- NOTE | 2016-09-09 08:27 | PN ---
Date/Time of Note Date/Time of Note DATE: 09/09/16 TIME: 08:23 Assessment/Plan VTE Prophylaxis VTE Prophylaxis Intervention: other Lines/Catheters IV Catheter Type (from Nrsg): Saline Lock Assessment/Plan Problems: (1) Atrial fibrillation Status: Chronic Comment: Cardiology is placed her on an amiodarone drip. Part of her tachycardia is due to her discomfort from the dens C2 fracture. Continue as per. Ideally she would do well with a very cardioselective beta-viet when more stable. Qualifiers: Atrial fibrillation type: chronic Qualified Code: I48.2 - Chronic atrial fibrillation (2) COPD (chronic obstructive pulmonary disease) Status: Chronic Comment: She is on appropriate treatment and stable. Please note she had required BiPAP due to desaturations. I believe this was less due to COPD exacerbation and more due to volume overload and she has just completed dialysis Qualifiers: COPD type: emphysema Emphysema type: panlobular Qualified Code: J43.1 - Panlobular emphysema (3) ESRD (end stage renal disease) on dialysis Status: Chronic Comment: Nephrology is working with her she is just completed dialysis with removal of 3-1/2 L (4) Diabetes mellitus type 2 in obese Status: Chronic Comment: Excellent control although she had never had difficult to control sugars (5) Hypertension associated with chronic kidney disease due to type 2 diabetes mellitus Status: Chronic Comment: Noted she has had hypotension. Medications adjusted (6) Hyperlipidemia Status: Chronic Comment: Noted Qualifiers: Hyperlipidemia type: pure hypercholesterolemia Qualified Code: E78.00 - Pure hypercholesterolemia (7) Obstructive sleep apnea Status: Chronic Comment: BiPAP in use. (8) Aortic stenosis Status: Chronic Comment: Noted. Cardiology is assisting. She is status post T AVR Qualifiers: Cardiac valve disease etiology: nonrheumatic Qualified Code: I35.0 - Nonrheumatic aortic valve stenosis (9) Diastolic dysfunction Status: Chronic Comment: Noted. Beta-blockade rate control (10) Dens fracture Status: Acute Comment: She is now on a more formalized cervical collar for this. Hopefully this will give her some degree of comfort. She however is in a great deal of pain control and so 1 of her main issues here will be pain control. Secondarily then is trying to get her to start eating. If we can get nutrition into her because she cannot eat due to this collar than we will have to have placement of a PEG tube for 2 months until she is healed well enough. An additional need input from neurosurgery regarding getting her out of bed etc. Look forward to coordination with neurosurgery Qualifiers: Encounter type: initial encounter Fracture type: closed Qualified Code: S12.100A - Dens fracture, closed, initial encounter Subjective 24 Hr Interval Summary Free Text/Dictation Patient is on BiPAP moaning and in discomfort. Not eating yet Subjective hx not possible: pt critical status Exam/Review of Systems Vital Signs Vitals Vital Signs Date Time Temp Pulse Resp B/P Pulse Ox O2 Delivery O2 Flow Rate FiO2 09/09/16 07:33 98 99 40 09/09/16 06:29 111/58 BIPAP 09/09/16 05:30 20 09/09/16 04:00 98.9 09/08/16 23:00 10.0 Intake and Output 09/08/16 09/08/16 09/09/16 15:00 23:00 07:00 Intake Total 0 ml Output Total 0 ml Balance 0 ml Exam Cooperates but moans Constitutional: alert Neck: non-tender, supple Respiratory: clear to auscultation, normal air movement Cardiovascular: nl pulses, regular rate and rhythm Gastrointestinal: nl liver, spleen, non-tender, soft Results Result Diagram: 09/09/16 0440 09/08/16 0435 Results 24 hrs Laboratory Tests Test 09/08/16 08:37 09/08/16 10:19 09/08/16 11:28 09/08/16 16:57 Bedside Glucose 98 73 103 Blood Gas Specimen Source Blood arterial Arterial Blood Date Drawn 09/08/2016 11:01:05 AM Arterial Blood pH (Temp corrected) 7.279 *L Arterial Blood pCO2 (Temp correct) 48.6 H Arterial Blood pO2 (Temp corrected) 106.8 H Arterial Blood HCO3 22.3 Arterial Blood Base Excess -4.6 L Arterial Blood Oxygen Saturation 97.2 Soy Test ACCEPTAB Arterial Blood Gas Puncture Site Right Radial Arterial Blood Carboxyhemoglobin 0.3 Arterial Blood Methemoglobin 0.3 Blood Gas A-a O2 Differential 195.0 H Oxyhemoglobin Percent 96.6 Total Hemoglobin 11.9 L Blood Gas Temperature 37.0 Blood Gas Respiration Rate 20.0 Blood Gas Actual Respiration Rate 22 Blood Gas Modality MASK - BIPAP FiO2 50.0 Blood Gas IPAP/EPAP Ratio 24/ Blood Gas Critical Value Read Back Eloy MORRIS RN Blood Gas Notified Whom FERCHO Blood Gas Notified Time 09/08/2016 11:10:10 AM Test 09/08/16 20:00 09/08/16 20:48 09/08/16 22:30 09/09/16 04:40 Blood Gas Specimen Source Blood arterial Arterial Blood Date Drawn 09/08/2016 7:30:03 PM Arterial Blood pH (Temp corrected) 7.285 *L Arterial Blood pCO2 (Temp correct) 54.5 H Arterial Blood pO2 (Temp corrected) 155.6 H Arterial Blood HCO3 25.3 Arterial Blood Base Excess -1.9 Arterial Blood Oxygen Saturation 98.7 Soy Test N/A Arterial Blood Gas Puncture Site LB Arterial Blood Carboxyhemoglobin 0.1 Arterial Blood Methemoglobin 0.3 Blood Gas A-a O2 Differential 161.4 H Oxyhemoglobin Percent 98.3 Total Hemoglobin 11.3 L Blood Gas Temperature 37.0 Blood Gas Modality MASK - SIMPLE FiO2 53.0 Blood Gas Critical Value Read Back NOEL RN Blood Gas Notified Whom ROSSY Blood Gas Notified Time 09/08/2016 7:45:38 PM Bedside Glucose 93 110 White Blood Count 11.5 #H Red Blood Count 3.28 L Hemoglobin 9.9 L Hematocrit 30.9 L Mean Corpuscular Volume 94.2 Mean Corpuscular Hemoglobin 30.2 Mean Corpuscular Hemoglobin Concent 32.0 Red Cell Distribution Width 15.3 H Platelet Count 185 Mean Platelet Volume 10.5 H Neutrophils % 85.7 H Lymphocytes % 9.6 L Monocytes % 3.8 Eosinophils % 0.2 Basophils % 0.3 Nucleated Red Blood Cells % 0.0 Neutrophils # 9.8 H Lymphocytes # 1.1 Monocytes # 0.4 Eosinophils # 0.0 Basophils # 0.0 Nucleated Red Blood Cells # 0.0 Prothrombin Time 19.0 #H Prothrombin Time Ratio 1.5 INR International Normalized Ratio 1.58 Test 09/09/16 05:20 Bedside Glucose 118 Medications Medications Current Medications Acetaminophen/ Hydrocodone Bitart ([place] (5/325)) 1 tab Q6H PRN PO MODERATE PAIN LEVEL 4-6 Last administered on 09/09/16t 02:23; Admin Dose 1 TAB; Start at 17:30 Acetaminophen/ Hydrocodone Bitart ([place] (5/325)) 2 tab Q6H PRN PO SEVERE PAIN LEVEL 7-10; Start 09/07/16 at 17:30 Docusate Sodium (Colace) 100 mg Q12H PRN PO CONSTIPATION; Start 09/07/16 at 17: 30 Sodium Biphosphate/ Sodium Phosphate (Fleet Enema) 133 ml DAILY PRN [place] CONSTIPATION; Start 09/07/16 at 17:30 Famotidine (Pepcid Iv) 20 mg DAILY IV Last administered on 09/08/16 09:34; Admin Dose 20 MG; Start 09/08/16 at 09:00 Heparin Sodium (Porcine) (Heparin (5000 Units/0.5 ml)) 5,000 unit Q12 SC Last administered on 09/08/16 22:33; Admin Dose 5,000 UNIT; Start 09/07/16 at 21:00 Folic Acid (Folic Acid) 1 mg BID PO ; Start 09/07/16 at 21:00 Metoprolol Tartrate (Lopressor) 12.5 mg BID PO ; Start 09/07/16 at 23:00 Fenofibrate (Tricor) 48 mg QAM PO ; Start 09/08/16 at 09:00 Linagliptin (Tradjenta) 5 mg DAILY PO ; Start 09/07/16 at 18:00 Insulin Glargine (Lantus) 2 unit BID@08,20 SC Last administered on 09/08/16 22 :31; Admin Dose 2 UNIT; Start 09/07/16 at 20:00 Fish Oil (Fish Oil) 2,000 mg BID PO ; Start 09/07/16 at 21:00 Salmeterol Xinafoate/ Fluticasone (Advair 250/50 Diskus) 1 inh BID INH Last administered on 09/08/16 00:11; Admin Dose 1 INH; Start 09/07/16 at 23:00 Atorvastatin Calcium (Lipitor) 40 mg QHS PO ; Start 09/07/16 at 21:00 Gabapentin (Neurontin) 900 mg QHS PO ; Start 09/07/16 at 21:00 Prednisone (Prednisone) 7.5 mg QAM PO ; Start 09/08/16 at 09:00 Miscellaneous Information 1 ea NOTE XX ; Start 09/07/16 at 18:00 Glucose (Glutose) 15 gm Q15M PRN PO DECREASED GLUCOSE; Start 09/07/16 at 18:00 Glucose (Glutose) 22.5 gm Q15M PRN PO DECREASED GLUCOSE; Start 09/07/16 at 18: 00 Dextrose (D50w Syringe) 25 ml Q15M PRN IV DECREASED GLUCOSE; Start 09/07/16 at 18:00 Dextrose (D50w Syringe) 50 ml Q15M PRN IV DECREASED GLUCOSE; Start 09/07/16 at 18:00 Glucagon (Glucagen) 1 mg Q15M PRN IM DECREASED GLUCOSE; Start 09/07/16 at 18:00 Glucose (Glutose) 15 gm Q15M PRN BUCCAL DECREASED GLUCOSE; Start 09/07/16 at 18 :00 Naloxone HCl (Narcan) 0.2 mg Q2M PRN IV DECREASED REPIRATORY RATE Last administered on 09/08/16 02:44; Admin Dose 0.2 MG; Start 09/08/16 at 02:30 Tramadol HCl 50 mg 50 mg Q8H PRN PO PAIN Last administered on 09/08/16 15:57; Admin Dose 50 MG; Start 09/08/16 at 16:00 Amiodarone HCl 900 mg/Dextrose 500 ml @ 16.7 mls/hr Q24H IV Last administered on 09/09/16 02:33; Admin Dose 16.7 MLS/HR; Start 09/09/16 at 02:00; Stop at 18:00 Dextrose/Sodium Chloride 1,000 ml @ 50 mls/hr Q20H IV Last administered on 22:34; Admin Dose 50 MLS/HR; Start 09/08/16 at 21:30 Phenylephrine HCl/ Dextrose (Efraín-Syneph/D5W) 500 ml @ 75 mls/hr TITRATE IV ; Start 09/09/16 at 03:00 Insulin Aspart (Novolog Insulin Pen) NOVOLOG *MILD* ALGORI... Q4 SC ; Start at 05:00 Hydromorphone HCl (Dilaudid) 0.5 mg Q2H PRN IV PAIN; Start 09/09/16 at 08:30 TOMER GARCIA MD September 09, 2016 08:27
[2016-09-09] MEDS: HYDROmorphONE 1 MG/ML SYG IV PRN ×4 (08:28→20:27)
--- NOTE | 2016-09-09 08:42 | CONS ---
Date/Time of Note Date/Time of Note DATE: 09/09/16 TIME: 08:40 Assessment/Plan Assessment/Plan Additional Assessment/Plan ABG was reviewed from last evening as well as from yesterday afternoon which is showing improving respiratory acidosis. Assessment recommendations; next 1. Patient admitted with a fall resulting in spinal fracture without any neurological compromise. 2. End-stage renal disease, on hemodialysis. 3. Pulmonary sarcoidosis, patient on long-term prednisone use. 4. History of hypertension. 5. Diabetes. 6. Coronary artery disease. Status post PTCA in the past. 7. Aortic stenosis. 8. Possibly some element of CHF. 9. Improving respiratory acidosis on BiPAP. Next Continue current supportive care. Patient been followed by neurosurgical team. Consultation Date/Type/Reason Admit Date/Time September 07, 2016 at 16:36 Initial Consult Date 09/08/16 Type of Consultation: Pulmonary/critical care Referring Provider: TOMER GARCIA MD 24 HR Interval Summary Free Text/Dictation Patient condition is still tenuous. Still on BiPAP. However she is awake and alert. Has remained hemodynamically stable. General exam; elderly lady, on BiPAP currently in no distress. Exam/Review of Systems Vital Signs Vitals Vital Signs Date Time Temp Pulse Resp B/P Pulse Ox O2 Delivery O2 Flow Rate FiO2 09/09/16 07:33 98 99 40 09/09/16 06:29 111/58 BIPAP 09/09/16 05:30 20 09/09/16 04:00 98.9 09/08/16 23:00 10.0 Intake and Output 09/08/16 09/08/16 09/09/16 15:00 23:00 07:00 Intake Total 0 ml Output Total 0 ml Balance 0 ml Exam HEENT exam is; supple neck, positive JVD. No lymphadenopathy. Patient is edentulous. On BiPAP. Has bilateral intraocular lens implants. Chest examined; diminished breath sound bilaterally with mild scattered crackles. S1-S2 audible, irregular rhythm. No murmurs. Abdomen exam is; protuberant. Nontender. Bowel sounds audible. No organomegaly felt. Extremity exam; no peripheral edema. 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 Results Result Diagram: 09/09/16 0440 09/08/16 0435 Results 24 hrs Laboratory Tests Test 09/08/16 10:19 09/08/16 11:28 09/08/16 16:57 09/08/16 20:00 Blood Gas Specimen Source Blood arterial Blood arterial Arterial Blood Date Drawn 09/08/2016 11:01:05 AM 09/08/2016 7:30:03 PM Arterial Blood pH (Temp corrected) 7.279 *L 7.285 *L Arterial Blood pCO2 (Temp correct) 48.6 H 54.5 H Arterial Blood pO2 (Temp corrected) 106.8 H 155.6 H Arterial Blood HCO3 22.3 25.3 Arterial Blood Base Excess -4.6 L -1.9 Arterial Blood Oxygen Saturation 97.2 98.7 Soy Test ACCEPTAB N/A Arterial Blood Gas Puncture Site Right Radial LB Arterial Blood Carboxyhemoglobin 0.3 0.1 Arterial Blood Methemoglobin 0.3 0.3 Blood Gas A-a O2 Differential 195.0 H 161.4 H Oxyhemoglobin Percent 96.6 98.3 Total Hemoglobin 11.9 L 11.3 L Blood Gas Temperature 37.0 37.0 Blood Gas Respiration Rate 20.0 Blood Gas Actual Respiration Rate 22 Blood Gas Modality MASK - BIPAP MASK - SIMPLE FiO2 50.0 53.0 Blood Gas IPAP/EPAP Ratio 24/6 Blood Gas Critical Value Read Back A ARTURO COHEN RN Blood Gas Notified Whom FERCHO BLAIR Blood Gas Notified Time 09/08/2016 11:10:10 AM 09/08/2016 7:45:38 PM Bedside Glucose 73 103 Test 09/08/16 20:48 09/08/16 22:30 09/09/16 04:40 09/09/16 05:20 Bedside Glucose 93 110 118 White Blood Count 11.5 #H Red Blood Count 3.28 L Hemoglobin 9.9 L Hematocrit 30.9 L Mean Corpuscular Volume 94.2 Mean Corpuscular Hemoglobin 30.2 Mean Corpuscular Hemoglobin Concent 32.0 Red Cell Distribution Width 15.3 H Platelet Count 185 Mean Platelet Volume 10.5 H Neutrophils % 85.7 H Lymphocytes % 9.6 L Monocytes % 3.8 Eosinophils % 0.2 Basophils % 0.3 Nucleated Red Blood Cells % 0.0 Neutrophils # 9.8 H Lymphocytes # 1.1 Monocytes # 0.4 Eosinophils # 0.0 Basophils # 0.0 Nucleated Red Blood Cells # 0.0 Prothrombin Time 19.0 #H Prothrombin Time Ratio 1.5 INR International Normalized Ratio 1.58 Medications Medications Current Medications Acetaminophen/ Hydrocodone Bitart ([place] (5/325)) 1 tab Q6H PRN PO MODERATE PAIN LEVEL 4-6 Last administered on 09/09/16 02:23; Admin Dose 1 TAB; Start at 17:30 Acetaminophen/ Hydrocodone Bitart ([place] (5/325)) 2 tab Q6H PRN PO SEVERE PAIN LEVEL 7-10; Start 09/07/16 at 17:30 Docusate Sodium (Colace) 100 mg Q12H PRN PO CONSTIPATION; Start 09/07/16 at 17: 30 Sodium Biphosphate/ Sodium Phosphate (Fleet Enema) 133 ml DAILY PRN [place] CONSTIPATION; Start 09/07/16 at 17:30 Famotidine (Pepcid Iv) 20 mg DAILY IV Last administered on 09/08/16 09:34; Admin Dose 20 MG; Start 09/08/16 at 09:00 Heparin Sodium (Porcine) (Heparin (5000 Units/0.5 ml)) 5,000 unit Q12 SC Last administered on 09/08/16 22:33; Admin Dose 5,000 UNIT; Start 09/07/16 at 21:00 Folic Acid (Folic Acid) 1 mg BID PO ; Start 09/07/16 at 21:00 Metoprolol Tartrate (Lopressor) 12.5 mg BID PO ; Start 09/07/16 at 23:00 Fenofibrate (Tricor) 48 mg QAM PO ; Start 09/08/16 at 09:00 Linagliptin (Tradjenta) 5 mg DAILY PO ; Start 09/07/16 at 18:00 Insulin Glargine (Lantus) 2 unit BID@08,20 SC Last administered on 09/08/16 22 :31; Admin Dose 2 UNIT; Start 09/07/16 at 20:00 Fish Oil (Fish Oil) 2,000 mg BID PO ; Start 09/07/16 at 21:00 Salmeterol Xinafoate/ Fluticasone (Advair 250/50 Diskus) 1 inh BID INH Last administered on 09/08/16 00:11; Admin Dose 1 INH; Start 09/07/16 at 23:00 Atorvastatin Calcium (Lipitor) 40 mg QHS PO ; Start 09/07/16 at 21:00 Gabapentin (Neurontin) 900 mg QHS PO ; Start 09/07/16 at 21:00 Prednisone (Prednisone) 7.5 mg QAM PO ; Start 09/08/16 at 09:00 Miscellaneous Information 1 ea NOTE XX ; Start 09/07/16 at 18:00 Glucose (Glutose) 15 gm Q15M PRN PO DECREASED GLUCOSE; Start 09/07/16 at 18:00 Glucose (Glutose) 22.5 gm Q15M PRN PO DECREASED GLUCOSE; Start 09/07/16 at 18: 00 Dextrose (D50w Syringe) 25 ml Q15M PRN IV DECREASED GLUCOSE; Start 09/07/16 at 18:00 Dextrose (D50w Syringe) 50 ml Q15M PRN IV DECREASED GLUCOSE; Start 09/07/16 at 18:00 Glucagon (Glucagen) 1 mg Q15M PRN IM DECREASED GLUCOSE; Start 09/07/16 at 18:00 Glucose (Glutose) 15 gm Q15M PRN BUCCAL DECREASED GLUCOSE; Start 09/07/16 at 18 :00 Naloxone HCl (Narcan) 0.2 mg Q2M PRN IV DECREASED REPIRATORY RATE Last administered on 09/08/16 02:44; Admin Dose 0.2 MG; Start 09/08/16 at 02:30 Tramadol HCl 50 mg 50 mg Q8H PRN PO PAIN Last administered on 09/08/16 15:57; Admin Dose 50 MG; Start 09/08/16 at 16:00 Amiodarone HCl 900 mg/Dextrose 500 ml @ 16.7 mls/hr Q24H IV Last administered on 09/09/16 02:33; Admin Dose 16.7 MLS/HR; Start 09/09/16 at 02:00; Stop at 18:00 Dextrose/Sodium Chloride 1,000 ml @ 50 mls/hr Q20H IV Last administered on 22:34; Admin Dose 50 MLS/HR; Start 09/08/16 at 21:30 Phenylephrine HCl/ Dextrose (Efraín-Syneph/D5W) 500 ml @ 75 mls/hr TITRATE IV ; Start 09/09/16 at 03:00 Insulin Aspart (Novolog Insulin Pen) NOVOLOG *MILD* ALGORI... Q4 SC ; Start at 05:00 Hydromorphone HCl (Dilaudid) 0.5 mg Q2H PRN IV PAIN Last administered on t 08:28; Admin Dose 0.5 MG; Start 09/09/16 at 08:30 LAWRENCE GOODE September 09, 2016 08:42
[2016-09-09] MEDS: METOPROLOL 25 MG TAB PO SCH ×2 (08:58→20:37)
[2016-09-09] MEDS: SALMETEROL/FLUTICASONE 250/50 INHA INH SCH ×2 (08:58→21:00)
[2016-09-09] MEDS: FOLIC ACID 1 MG TAB PO SCH ×2 (08:58→20:37)
[2016-09-09] MEDS: FISH OIL 1,000 MG CAP PO SCH ×2 (08:58→20:37)
[2016-09-09] MEDS: FENOFIBRATE 48 MG TAB PO SCH (08:59)
[2016-09-09] MEDS: predniSONE 2.5 MG TAB PO SCH ×2 (08:59→16:44)
[2016-09-09] MEDS: LINAGLIPTIN 5 MG TABLET PO SCH (08:59)
[2016-09-09] MEDS: FAMOTIDINE 20 MG INJ IV SCH (09:11)
[2016-09-09] MEDS: HEPARIN 5,000 UNIT/0.5 ML VIAL SC SCH ×2 (09:12→20:43)
[2016-09-09] MEDS: INSULIN GLARGINE [LANtus] 3 ML PEN SC SCH ×2 (09:13→20:42)
[2016-09-09 09:17] LABS: AADO2 Arterial 75.3 mmHg (7.0-24.0); Allen Test ACCEPTAB; Arterial Base Excess -0.4 mmol/L (-3.0-3); Arterial COHb 0.6 % (0.0-3.0); Arterial HCO3 26.5 mmol/L (22.0-26.0); Arterial MetHb 0.3 % (0.0-1.5); Arterial Total Hemglobin 11.4 g/dl (12.0-18.0); Blood Gas IEPAP 24/6; MODE MASK - BIPAP
--- NOTE | 2016-09-09 09:23 | CONS ---
Date/Time of Note Date/Time of Note DATE: 09/09/16 TIME: 09:18 Assessment/Plan Assessment/Plan Additional Assessment/Plan Ms. Arnold is a pleasant 75 y.o. AA woman with h/o of s/p TAVR, CAD s/p PCI , LV diastolic dysfunction, normal LVEF, PAF on coumadin, ESRD on iHD> Pt had a fll out of her chair when sleeping forward onto her head. Brought to [facility] and found to have C2-C3 fracture. HR under better control. BP is marginal but has not required pressors yet. Would not expect her hypotension to be of cardiac etiology (per report, had normal LV fxn and TAVR). Would check limited echo to re-assess. Needs better pain control - will defer to medicine / ICU team - continue amiodarone gtt - can start pressor (efraín) if needed - hold anticoagulation for afib (due to fracture) Consultation Date/Type/Reason Admit Date/Time September 07, 2016 at 16:36 Initial Consult Date 09/08/16 Type of Consultation: Pulmonary/critical care Referring Provider: TOMER GARCIA MD 24 HR Interval Summary Free Text/Dictation Remains in afib but HR 80-90s on amio gtt. Efraín gtt not started. On bipap. Moaning, in pain. Exam/Review of Systems Vital Signs Vitals Vital Signs Date Time Temp Pulse Resp B/P Pulse Ox O2 Delivery O2 Flow Rate FiO2 09/09/16 07:33 98 99 40 09/09/16 06:29 111/58 BIPAP 09/09/16 05:30 20 09/09/16 04:00 98.9 09/08/16 23:00 10.0 Intake and Output 09/08/16 09/08/16 09/09/16 15:00 23:00 07:00 Intake Total 0 ml Output Total 0 ml Balance 0 ml Exam Constitutional: other (in pain, moaning) Neck: other (in collar, cannot assess JVP) Respiratory: other (mostly clear anteriorly) Cardiovascular: other (irreg, irreg, no m/r/g) Extremities: other (tender to touch - neuropathy) Results Result Diagram: 09/09/16 0440 09/08/16 5455 Results 24 hrs Laboratory Tests Test 09/08/16 10:19 09/08/16 11:28 09/08/16 16:57 09/08/16 20:00 Blood Gas Specimen Source Blood arterial Blood arterial Arterial Blood Date Drawn 09/08/2016 11:01:05 AM 09/08/2016 7:30:03 PM Arterial Blood pH (Temp corrected) 7.279 *L 7.285 *L Arterial Blood pCO2 (Temp correct) 48.6 H 54.5 H Arterial Blood pO2 (Temp corrected) 106.8 H 155.6 H Arterial Blood HCO3 22.3 25.3 Arterial Blood Base Excess -4.6 L -1.9 Arterial Blood Oxygen Saturation 97.2 98.7 Soy Test ACCEPTAB N/A Arterial Blood Gas Puncture Site Right Radial LB Arterial Blood Carboxyhemoglobin 0.3 0.1 Arterial Blood Methemoglobin 0.3 0.3 Blood Gas A-a O2 Differential 195.0 H 161.4 H Oxyhemoglobin Percent 96.6 98.3 Total Hemoglobin 11.9 L 11.3 L Blood Gas Temperature 37.0 37.0 Blood Gas Respiration Rate 20.0 Blood Gas Actual Respiration Rate 22 Blood Gas Modality MASK - BIPAP MASK - SIMPLE FiO2 50.0 53.0 Blood Gas IPAP/EPAP Ratio 08/10 Blood Gas Critical Value Read Back A ARTURO COHEN RN Blood Gas Notified Whom FERCHO BLAIR Blood Gas Notified Time 09/08/2016 11:10:10 AM 09/08/2016 7:45:38 PM Bedside Glucose 73 103 Test 09/08/16 20:48 09/08/16 22:30 09/09/16 04:40 09/09/16 05:20 Bedside Glucose 93 110 118 White Blood Count 11.5 #H Red Blood Count 3.28 L Hemoglobin 9.9 L Hematocrit 30.9 L Mean Corpuscular Volume 94.2 Mean Corpuscular Hemoglobin 30.2 Mean Corpuscular Hemoglobin Concent 32.0 Red Cell Distribution Width 15.3 H Platelet Count 185 Mean Platelet Volume 10.5 H Neutrophils % 85.7 H Lymphocytes % 9.6 L Monocytes % 3.8 Eosinophils % 0.2 Basophils % 0.3 Nucleated Red Blood Cells % 0.0 Neutrophils # 9.8 H Lymphocytes # 1.1 Monocytes # 0.4 Eosinophils # 0.0 Basophils # 0.0 Nucleated Red Blood Cells # 0.0 Prothrombin Time 19.0 #H Prothrombin Time Ratio 1.5 INR International Normalized Ratio 1.58 Test 09/09/16 07:00 Blood Gas Specimen Source Blood arterial Arterial Blood Date Drawn 09/09/2016 9:00:56 AM Arterial Blood pH (Temp corrected) 7.306 L Arterial Blood pCO2 (Temp correct) 54.4 H Arterial Blood pO2 (Temp corrected) 74.7 L Arterial Blood HCO3 26.5 H Arterial Blood Base Excess -0.4 Arterial Blood Oxygen Saturation 93.8 L Soy Test ACCEPTAB Arterial Blood Gas Puncture Site LB Arterial Blood Carboxyhemoglobin 0.6 Arterial Blood Methemoglobin 0.3 Blood Gas A-a O2 Differential 75.3 H Oxyhemoglobin Percent 93.0 Total Hemoglobin 11.4 L Blood Gas Temperature 37.0 Blood Gas Respiration Rate 20.0 Blood Gas Actual Respiration Rate 20 Blood Gas Modality MASK - BIPAP FiO2 30.0 Blood Gas IPAP/EPAP Ratio 08/10 Blood Gas Notified Whom JLD Blood Gas Notified Time 09/09/2016 9:17:38 AM Medications Medications Current Medications Acetaminophen/ Hydrocodone Bitart ([place] (5/325)) 1 tab Q6H PRN PO MODERATE PAIN LEVEL 4-6 Last administered on 09/09/16 02:23; Admin Dose 1 TAB; Start at 17:30 Acetaminophen/ Hydrocodone Bitart ([place] (5/325)) 2 tab Q6H PRN PO SEVERE PAIN LEVEL 7-10; Start 09/07/16 at 17:30 Docusate Sodium (Colace) 100 mg Q12H PRN PO CONSTIPATION; Start 09/07/16 at 17: 30 Sodium Biphosphate/ Sodium Phosphate (Fleet Enema) 133 ml DAILY PRN [place] CONSTIPATION; Start 09/07/16 at 17:30 Famotidine (Pepcid Iv) 20 mg DAILY IV Last administered on 09/08/16 09:34; Admin Dose 20 MG; Start 09/08/16 at 09:00 Heparin Sodium (Porcine) (Heparin (5000 Units/0.5 ml)) 5,000 unit Q12 SC Last administered on 09/08/16 22:33; Admin Dose 5,000 UNIT; Start 09/07/16 at 21:00 Folic Acid (Folic Acid) 1 mg BID PO ; Start 09/07/16 at 21:00 Metoprolol Tartrate (Lopressor) 12.5 mg BID PO ; Start 09/07/16 at 23:00 Fenofibrate (Tricor) 48 mg QAM PO ; Start 09/08/16 at 09:00 Linagliptin (Tradjenta) 5 mg DAILY PO ; Start 09/07/16 at 18:00 Insulin Glargine (Lantus) 2 unit BID@08,20 SC Last administered on 09/08/16 22 :31; Admin Dose 2 UNIT; Start 09/07/16 at 20:00 Fish Oil (Fish Oil) 2,000 mg BID PO ; Start 09/07/16 at 21:00 Salmeterol Xinafoate/ Fluticasone (Advair 250/50 Diskus) 1 inh BID INH Last administered on 09/08/16 00:11; Admin Dose 1 INH; Start 09/07/16 at 23:00 Atorvastatin Calcium (Lipitor) 40 mg QHS PO ; Start 09/07/16 at 21:00 Gabapentin (Neurontin) 900 mg QHS PO ; Start 09/07/16 at 21:00 Prednisone (Prednisone) 7.5 mg QAM PO ; Start 09/08/16 at 09:00 Miscellaneous Information 1 ea NOTE XX ; Start 09/07/16 at 18:00 Glucose (Glutose) 15 gm Q15M PRN PO DECREASED GLUCOSE; Start 09/07/16 at 18:00 Glucose (Glutose) 22.5 gm Q15M PRN PO DECREASED GLUCOSE; Start 09/07/16 at 18: 00 Dextrose (D50w Syringe) 25 ml Q15M PRN IV DECREASED GLUCOSE; Start 09/07/16 at 18:00 Dextrose (D50w Syringe) 50 ml Q15M PRN IV DECREASED GLUCOSE; Start 09/07/16 at 18:00 Glucagon (Glucagen) 1 mg Q15M PRN IM DECREASED GLUCOSE; Start 09/07/16 at 18:00 Glucose (Glutose) 15 gm Q15M PRN BUCCAL DECREASED GLUCOSE; Start 09/07/16 at 18 :00 Naloxone HCl (Narcan) 0.2 mg Q2M PRN IV DECREASED REPIRATORY RATE Last administered on 09/08/16 02:44; Admin Dose 0.2 MG; Start 09/08/16 at 02:30 Tramadol HCl 50 mg 50 mg Q8H PRN PO PAIN Last administered on 09/08/16 15:57; Admin Dose 50 MG; Start 09/08/16 at 16:00 Amiodarone HCl 900 mg/Dextrose 500 ml @ 16.7 mls/hr Q24H IV Last administered on 09/09/16 02:33; Admin Dose 16.7 MLS/HR; Start 09/09/16 at 02:00; Stop at 18:00 Dextrose/Sodium Chloride 1,000 ml @ 50 mls/hr Q20H IV Last administered on 22:34; Admin Dose 50 MLS/HR; Start 09/08/16 at 21:30 Phenylephrine HCl/ Dextrose (Efraín-Syneph/D5W) 500 ml @ 75 mls/hr TITRATE IV ; Start 09/09/16 at 03:00 Insulin Aspart (Novolog Insulin Pen) NOVOLOG *MILD* ALGORI... Q4 SC ; Start at 05:00 Hydromorphone HCl (Dilaudid) 0.5 mg Q2H PRN IV PAIN Last administered on 08:28; Admin Dose 0.5 MG; Start 09/09/16 at 08:30 ROM MAHMOOD September 09, 2016 09:22
--- NOTE | 2016-09-09 15:28 | RADRPT ---
PROCEDURE: XR Chest. CLINICAL INDICATION: Shortness of breath. TECHNIQUE: Single frontal view. COMPARISON: 09/07/2016. FINDINGS: There is interstitial disease bilaterally consistent with pulmonary edema, unchanged. The heart is enlarged. There is calcification in the aorta consistent with atherosclerosis. There is a stent overlying the region of the ascending aorta. There is no pleural effusion. There is no pneumothorax. IMPRESSION: 1. Unchanged pulmonary edema. 2. Cardiomegaly and atherosclerosis. 3. Stent overlying the ascending aorta region. RPTAT: QQ .Mp Fields MD, MD Date Time Electronically viewed and signed by .Mp Fields MD, MD on 09/09/2016 15:28 .R/
--- NOTE | 2016-09-09 16:31 | CONS ---
Date/Time of Note Date/Time of Note DATE: 09/09/16 TIME: 16:26 Assessment/Plan Assessment/Plan Chief Complaint/Hosp Course 75 year-old female with type II/III C2 fracture. Patient neurologically unchanged. Recommend neurology consult for cord changes on MRI as not due to compression or trauma but could be metabolic. Tx will be with hard cervical collar, family and patient agree with plan. Mobilize. Currently having pulmonary issue, cont. medical supportive care. f/u 6 weeks with plain x-rays of spine. Problems: Consultation Date/Type/Reason Admit Date/Time September 07, 2016 at 16:36 Type of Consultation: Neurosurgery Referring Provider: TOMER GARCIA MD 24 HR Interval Summary Free Text/Dictation On Bi-PAP,difficulty breathing but denies new weakness. Exam/Review of Systems Vital Signs Vitals Vital Signs Date Time Temp Pulse Resp B/P Pulse Ox O2 Delivery O2 Flow Rate FiO2 09/09/16 15:09 102 97 30 09/09/16 14:30 18 110/34 09/09/16 14:00 BIPAP 09/09/16 12:00 98.1 09/08/16 23:00 10.0 Intake and Output 09/08/16 09/08/16 09/09/16 15:00 23:00 07:00 Intake Total 0 ml Output Total 0 ml Balance 0 ml Exam exam unchanged from yesterday. In new cervical collar. Results Result Diagram: 09/09/16 0440 09/08/16 0435 Results 24 hrs Laboratory Tests Test 09/08/16 16:57 09/08/16 20:00 09/08/16 20:48 09/08/16 22:30 Bedside Glucose 103 93 110 Blood Gas Specimen Source Blood arterial Arterial Blood Date Drawn 09/08/2016 7:30:03 PM Arterial Blood pH (Temp corrected) 7.285 *L Arterial Blood pCO2 (Temp correct) 54.5 H Arterial Blood pO2 (Temp corrected) 155.6 H Arterial Blood HCO3 25.3 Arterial Blood Base Excess -1.9 Arterial Blood Oxygen Saturation 98.7 Soy Test N/A Arterial Blood Gas Puncture Site LB Arterial Blood Carboxyhemoglobin 0.1 Arterial Blood Methemoglobin 0.3 Blood Gas A-a O2 Differential 161.4 H Oxyhemoglobin Percent 98.3 Total Hemoglobin 11.3 L Blood Gas Temperature 37.0 Blood Gas Modality MASK - SIMPLE FiO2 53.0 Blood Gas Critical Value Read Back NOEL RN Blood Gas Notified Whom ROSSY Blood Gas Notified Time 09/08/2016 7:45:38 PM Test 09/09/16 04:40 09/09/16 05:20 09/09/16 07:00 09/09/16 09:08 White Blood Count 11.5 #H Red Blood Count 3.28 L Hemoglobin 9.9 L Hematocrit 30.9 L Mean Corpuscular Volume 94.2 Mean Corpuscular Hemoglobin 30.2 Mean Corpuscular Hemoglobin Concent 32.0 Red Cell Distribution Width 15.3 H Platelet Count 185 Mean Platelet Volume 10.5 H Neutrophils % 85.7 H Lymphocytes % 9.6 L Monocytes % 3.8 Eosinophils % 0.2 Basophils % 0.3 Nucleated Red Blood Cells % 0.0 Neutrophils # 9.8 H Lymphocytes # 1.1 Monocytes # 0.4 Eosinophils # 0.0 Basophils # 0.0 Nucleated Red Blood Cells # 0.0 Prothrombin Time 19.0 #H Prothrombin Time Ratio 1.5 INR International Normalized Ratio 1.58 Bedside Glucose 118 140 Blood Gas Specimen Source Blood arterial Arterial Blood Date Drawn 09/09/2016 9:00:56 AM Arterial Blood pH (Temp corrected) 7.306 L Arterial Blood pCO2 (Temp correct) 54.4 H Arterial Blood pO2 (Temp corrected) 74.7 L Arterial Blood HCO3 26.5 H Arterial Blood Base Excess -0.4 Arterial Blood Oxygen Saturation 93.8 L Soy Test ACCEPTAB Arterial Blood Gas Puncture Site LB Arterial Blood Carboxyhemoglobin 0.6 Arterial Blood Methemoglobin 0.3 Blood Gas A-a O2 Differential 75.3 H Oxyhemoglobin Percent 93.0 Total Hemoglobin 11.4 L Blood Gas Temperature 37.0 Blood Gas Respiration Rate 20.0 Blood Gas Actual Respiration Rate 20 Blood Gas Modality MASK - BIPAP FiO2 30.0 Blood Gas IPAP/EPAP Ratio 24/ Blood Gas Notified Whom FERCHO Blood Gas Notified Time 09/09/2016 9:17:38 AM Test 09/09/16 12:43 Bedside Glucose 131 Medications Medications Current Medications Acetaminophen/ Hydrocodone Bitart ([place] (5/325)) 1 tab Q6H PRN PO MODERATE PAIN LEVEL 4-6 Last administered on 09/09/16t 02:23; Admin Dose 1 TAB; Start at 17:30 Acetaminophen/ Hydrocodone Bitart ([place] (5/325)) 2 tab Q6H PRN PO SEVERE PAIN LEVEL 7-10; Start 09/07/16 at 17:30 Docusate Sodium (Colace) 100 mg Q12H PRN PO CONSTIPATION; Start 09/07/16 at 17: 30 Sodium Biphosphate/ Sodium Phosphate (Fleet Enema) 133 ml DAILY PRN [place] CONSTIPATION; Start 09/07/16 at 17:30 Famotidine (Pepcid Iv) 20 mg DAILY IV Last administered on 09/09/16 09:11; Admin Dose 20 MG; Start 09/08/16 at 09:00 Heparin Sodium (Porcine) (Heparin (5000 Units/0.5 ml)) 5,000 unit Q12 SC Last administered on 09/09/16 09:12; Admin Dose 5,000 UNIT; Start 09/07/16 at 21:00 Folic Acid (Folic Acid) 1 mg BID PO ; Start 09/07/16 at 21:00 Metoprolol Tartrate (Lopressor) 12.5 mg BID PO ; Start 09/07/16 at 23:00 Fenofibrate (Tricor) 48 mg QAM PO ; Start 09/08/16 at 09:00 Linagliptin (Tradjenta) 5 mg DAILY PO ; Start 09/07/16 at 18:00 Insulin Glargine (Lantus) 2 unit BID@08,20 SC Last administered on 09/09/16 09 :13; Admin Dose 2 UNIT; Start 09/07/16 at 20:00 Fish Oil (Fish Oil) 2,000 mg BID PO ; Start 09/07/16 at 21:00 Salmeterol Xinafoate/ Fluticasone (Advair 250/50 Diskus) 1 inh BID INH Last administered on 09/08/16 00:11; Admin Dose 1 INH; Start 09/07/16 at 23:00 Atorvastatin Calcium (Lipitor) 40 mg QHS PO ; Start 09/07/16 at 21:00 Gabapentin (Neurontin) 900 mg QHS PO ; Start 09/07/16 at 21:00 Prednisone (Prednisone) 7.5 mg QAM PO ; Start 09/08/16 at 09:00 Miscellaneous Information 1 ea NOTE XX ; Start 09/07/16 at 18:00 Glucose (Glutose) 15 gm Q15M PRN PO DECREASED GLUCOSE; Start 09/07/16 at 18:00 Glucose (Glutose) 22.5 gm Q15M PRN PO DECREASED GLUCOSE; Start 09/07/16 at 18: 00 Dextrose (D50w Syringe) 25 ml Q15M PRN IV DECREASED GLUCOSE; Start 09/07/16 at 18:00 Dextrose (D50w Syringe) 50 ml Q15M PRN IV DECREASED GLUCOSE; Start 09/07/16 at 18:00 Glucagon (Glucagen) 1 mg Q15M PRN IM DECREASED GLUCOSE; Start 09/07/16 at 18:00 Glucose (Glutose) 15 gm Q15M PRN BUCCAL DECREASED GLUCOSE; Start 09/07/16 at 18 :00 Naloxone HCl (Narcan) 0.2 mg Q2M PRN IV DECREASED REPIRATORY RATE Last administered on 09/08/16 02:44; Admin Dose 0.2 MG; Start 09/08/16 at 02:30 Tramadol HCl 50 mg 50 mg Q8H PRN PO PAIN Last administered on 09/08/16 15:57; Admin Dose 50 MG; Start 09/08/16 at 16:00 Amiodarone HCl 900 mg/Dextrose 500 ml @ 16.7 mls/hr Q24H IV Last administered on 09/09/16 02:33; Admin Dose 16.7 MLS/HR; Start 09/09/16 at 02:00; Stop at 18:00 Dextrose/Sodium Chloride 1,000 ml @ 50 mls/hr Q20H IV Last administered on 22:34; Admin Dose 50 MLS/HR; Start 09/08/16 at 21:30 Phenylephrine HCl/ Dextrose (Efraín-Syneph/D5W) 500 ml @ 75 mls/hr TITRATE IV ; Start 09/09/16 at 03:00 Insulin Aspart (Novolog Insulin Pen) NOVOLOG *MILD* ALGORI... Q4 SC ; Start at 05:00 Hydromorphone HCl (Dilaudid) 0.5 mg Q2H PRN IV PAIN Last administered on 11:41; Admin Dose 0.5 MG; Start 09/09/16 at 08:30 Procedures Procedures MRI shows fracture, no retropulsion or spondylotic stenosis. Reports posterior cord signal change, could have SCDC or other metabolic myelopathy. GRAVELY,ADRIA Hopkins MD September 09, 2016 16:31
--- NOTE | 2016-09-09 16:42 | RADRPT ---
Echocardiogram Report Patient Name: ABBIE HATFIELD Gender: Female Date: 1940 Study Date: 09-Sep-2016 Wave Guide Assembler: Ann Langley MIRELLA Location: 120 Ref. Physician: TOMMY BAKER Quality: Adequate Procedures: Transthoracic echocardiogram with complete 2D, M-Mode, and doppler examination. Indications: Evaluate Left Ventricular function. 2D/M Mode Doppler Measurement Value Normal Ranges Measurement Value Normal Ranges LVIDd 2D 3.2 3.5 - 5.6 cm AV Mean Jonny 1.9 m/sec LVIDs 2D 2.0 2.1 - 4.1 cm AV Mean PG 17.0 mmHg FS 2D 37.9 % AV Peak Jonny 2.9 m/sec LVPWd 2D 1.4 0.6 - 1.1 cm AV Peak PG 34.0 mmHg IVSd 2D 1.3 0.6 - 1.1 cm AV VTI 59.8 cm IVS/LVPW 2D 0.9 LVOT Mean Jonny 1.0 m/sec AoR Diam 2D 1.8 2.0 - 3.7 cm LVOT Mean PG 5.0 mmHg LA/Ao 2D 2 0 - 1 LVOT Peak Jonny 1.7 m/sec EDV 2D 33.4 cm3 LVOT Peak PG 11.0 mmHg ESV 2D 8.0 cm3 LVOT VTI 29.4 cm LA Dimen 2D 3.6 2.3 - 4.0 cm MV E Peak Jonny 1.2 m/sec MV Decel Time 141 msec TR Peak Jonny 2.5 m/sec TR Peak PG 26.0 mmHg RVSP 34.0 mmHg Findings Left Ventricle: Hyperdynamic left ventricular systolic function. Normal left ventricular cavity size. Moderate concentric left ventricular hypertrophy. Ejection fraction is visually estimated at 70 %. Right Ventricle: Normal right ventricular size. Normal right ventricular systolic function. Left Atrium: The left atrium is normal in size. Right Atrium: The right atrium is normal in size. Mitral Valve: Mild mitral leaflet calcification. Mild mitral annular calcification. Trace mitral regurgitation. Aortic Valve: Aortic Valve Bio Prosthesis. Aortic valve Max velocity 2.91 m/sec. Max PG 34.00 mmHg. Mean PG 17.00 mmHg. Tricuspid Valve: Normal appearance of the tricuspid valve. Estimated peak PA systolic pressure 35 mmHg. There is trace tricuspid regurgitation. Pulmonic Valve: Normal pulmonic valve appearance. There is trace to mild pulmonic regurgitation. Pericardium: Trivial pericardial effusion. Aorta: Normal aortic root. IVC: Normal size and normal respiratory collapse consistent with normal right atrial pressure. Conclusions 1.1. Hyperdynamic left ventricular function with moderate concentric LVH and EF > 70%. 2.2. Normal right ventricular size and function. 3.3. Pt is s/p TAVR. 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 There is also mild paravalvular leak. 4.4. Normal estimated pulmonary pressures (34mmHg). 5.5. Cannot assess diastology due to afib. Electronically Signed By: Tommy Baker 09-Sep-2016 16:41:27 -0700 Patient Name: ABBIE HATFIELD Study Date: 09-Sep-2016 [id number]
[2016-09-09] MEDS: DEXTROSE 5%-0.225% NACL 1,000 ML IV SCH (17:18)
[2016-09-09] MEDS: ATORVASTATIN 40 MG TAB PO SCH (20:37)
[2016-09-09] MEDS: GABAPENTIN 300 MG CAP PO SCH (20:38)
[2016-09-10] VITALS (39 sets, daily range): BP systolic 49–141; BP diastolic 31–122; PULSE 91–125; RESP 16–31
[2016-09-10] MEDS: HYDROmorphONE 1 MG/ML SYG IV PRN ×5 (00:16→20:26)
[2016-09-10] MEDS: INSULIN ASPART [NOVOLOG] 3 ML PEN SC SCH ×6 (00:51→21:00)
[2016-09-10 05:50] LABS: ADD SCAN DIFF NO
[2016-09-10 05:51] LABS: BASOPHILS % 0.4 % (0.0-2.0); EOSINOPHILS # 0.1 10^3/ul (0.0-0.5); EOSINOPHILS % 0.9 % (0.0-7.0); HEMATOCRIT 32.2 % (37.0-47.0); HEMOGLOBIN 10.2 g/dl (12.0-16.0); LYMPHOCYTES # 1.5 10^3/ul (0.8-2.9); LYMPHOCYTES % 18.8 % (15.0-51.0); MEAN CORPUSCULAR HEMOGLOBIN 30.1 pg (29.0-33.0); MEAN CORPUSCULAR HGB CONC 31.7 g/dl (32.0-37.0); MEAN PLATELET VOLUME 10.8 fl (7.4-10.4); MONOCYTE # 0.5 10^3/ul (0.3-0.9); MONOCYTES % 6.3 % (0.0-11.0); NEUTROPHIL # 5.7 10^3/ul (1.6-7.5); NEUTROPHILS % 73.2 % (39.0-77.0); PLATELET COUNT 190 10^3/UL (140-415); RED BLOOD COUNT 3.39 10^6/ul (4.20-5.40); RED CELL DISTRIBUTION WIDTH 15.5 % (11.5-14.5); WHITE BLOOD COUNT 7.8 10^3/ul (4.8-10.8)
[2016-09-10 06:25] LABS: CALCIUM 8.2 mg/dl (8.4-10.2); CREATININE 6.04 mg/dl (0.44-1.00); PHOSPHORUS 7.4 mg/dl (2.5-4.9); POTASSIUM 4.2 mmol/L (3.5-5.1)
[2016-09-10] MEDS: SEVELAMER CARBONATE 0.8 GM PKT PO SCH ×3 (07:05→16:27)
[2016-09-10 07:43] LABS: AADO2 Arterial 68.1 mmHg (7.0-24.0); Arterial COHb 0.9 % (0.0-3.0); Arterial Fraction of Oxyhgb 93.9 % (93.0-99.0); Arterial HCO3 28.1 mmol/L (22.0-26.0); Arterial MetHb 0.2 % (0.0-1.5); Blood Gas IEPAP 24/6; Blood Gas PS 18; MODE MASK - BIPAP
[2016-09-10] MEDS: METOPROLOL 25 MG TAB PO SCH ×2 (08:20→21:00)
[2016-09-10] MEDS: SALMETEROL/FLUTICASONE 250/50 INHA INH SCH ×2 (08:20→21:00)
[2016-09-10] MEDS: FOLIC ACID 1 MG TAB PO SCH ×2 (08:20→21:00)
[2016-09-10] MEDS: FISH OIL 1,000 MG CAP PO SCH ×2 (08:20→21:00)
[2016-09-10] MEDS: FENOFIBRATE 48 MG TAB PO SCH (08:21)
[2016-09-10] MEDS: predniSONE 2.5 MG TAB PO SCH (08:21)
[2016-09-10] MEDS: LINAGLIPTIN 5 MG TABLET PO SCH (08:21)
[2016-09-10] MEDS: FAMOTIDINE 20 MG INJ IV SCH (08:43)
[2016-09-10] MEDS: HEPARIN 5,000 UNIT/0.5 ML VIAL SC SCH ×2 (08:49→20:38)
[2016-09-10] MEDS: INSULIN GLARGINE [LANtus] 3 ML PEN SC SCH ×2 (08:49→20:40)
[2016-09-10] MEDS: METHYLPREDNISOLONE 40 MG INJ IV SCH ×2 (11:47→20:34)
--- NOTE | 2016-09-10 11:49 | PN ---
Date/Time of Note Date/Time of Note DATE: 09/10/16 TIME: 11:31 Assessment/Plan VTE Prophylaxis VTE Prophylaxis Intervention: heparin Lines/Catheters IV C[facility]ter Type (from [facility]): Peripheral IV Urinary Cath still in place: No Assessment/Plan Problems: (1) Dens fracture Status: Acute Comment: Per neurosurgery, hard cervical collar of spine x 6 weeks w/o surgical intervention at this time. However, (+) MRI changes seen on cord and recommending neurology consultation to evaluate. Will call if not already called. Qualifiers: Encounter type: initial encounter Fracture type: closed Qualified Code: S12.100A - Dens fracture, closed, initial encounter (2) Atherosclerotic heart disease of tribe coronary artery without angina pectoris Status: Chronic Comment: Per cardiology (3) Aortic stenosis Status: Chronic Comment: Per cardiology Qualifiers: Cardiac valve disease etiology: nonrheumatic Qualified Code: I35.0 - Nonrheumatic aortic valve stenosis (4) Atrial fibrillation Status: Chronic Comment: Amiodarone drip d/c'ed. Not on anticoagulation other than prophylatic heparin. Will defer this to cardiology. Qualifiers: Atrial fibrillation type: chronic Qualified Code: I48.2 - Chronic atrial fibrillation (5) Diastolic dysfunction Status: Chronic Comment: Pt. w/ poor breath sounds L lung. Possibly due to diastolic dysfunction that cannot be assessed on ECHO per cards. Possibly slower rate would be in order and pt. should have amiodarone drip restarted. Will defer to cardiology management on this. (6) Sarcoidosis Status: Chronic Comment: Pt. had not been receiving her prednisone due to inability to take po. Will change to IV medrol at stress doses of 10 and 5 mg respectively. Monitor glucose and treat appropriately. (7) COPD (chronic obstructive pulmonary disease) Status: Chronic Comment: On BiPAP and improving resp. acidosis. Oxygenating well. Defer to pulmonary but clinical exam indicates poor breath sounds on L. Qualifiers: COPD type: emphysema Emphysema type: panlobular Qualified Code: J43.1 - Panlobular emphysema (8) Hypertension associated with chronic kidney disease due to type 2 diabetes mellitus Status: Chronic Comment: BP has been low w/o meds. No treatment required (9) ESRD (end stage renal disease) on dialysis Status: Chronic Comment: Dialysis as per nephrology (10) Type 2 diabetes mellitus with diabetic chronic kidney disease Status: Chronic Comment: Glucose levels controlled but pt. to resume steroids and also likely to start some form of nutrition either via NGT or IV TPN. May need to be on insulin drip in near future. (11) Obstructive sleep apnea Status: Chronic Comment: On BiPAP Subjective 24 Hr Interval Summary Subjective hx not possible: pt non-verbal (on BiPAP, d/w daughter who said pt. w/ good pain control on narcotics.), pt critical status Exam/Review of Systems Vital Signs Vitals VS - Last 72 Hours, by Label Date Time Temp Pulse Resp B/P Pulse Ox O2 Delivery O2 Flow Rate FiO2 09/10/16 08:00 106 09/10/16 07:00 94 20 105/44 97 BIPAP 09/10/16 06:00 94 20 103/46 96 BIPAP 09/10/16 05:23 97 100 30 09/10/16 05:00 99 20 106/47 97 BIPAP 09/10/16 04:00 102 09/10/16 04:00 98.6 108 26 85/63 92 BIPAP 09/10/16 03:03 98 97 30 09/10/16 03:00 92 20 96/37 94 BIPAP 09/10/16 02:00 94 20 90/44 96 BIPAP 09/10/16 01:30 95 99 30 09/10/16 01:00 101 20 116/34 97 BIPAP 09/10/16 00:00 91 09/10/16 00:00 98.9 96 20 95/37 97 BIPAP 09/09/16 23:27 100 99 30 09/09/16 23:00 91 20 108/38 96 BIPAP 09/09/16 22:00 95 20 98/46 97 BIPAP 09/09/16 21:45 89 97 30 09/09/16 21:00 101 18 90/47 92 BIPAP 09/09/16 20:00 95 09/09/16 20:00 98.2 96 15 97/38 93 BIPAP 09/09/16 19:38 98 97 30 09/09/16 19:00 89 20 94/33 93 BIPAP 09/09/16 17:25 112 92 30 09/09/16 17:00 92 20 117/41 94 BIPAP 09/09/16 16:30 98 19 97/52 94 09/09/16 16:00 97.9 94 11 104/52 94 BIPAP 09/09/16 16:00 99 09/09/16 15:30 91 18 95/39 96 09/09/16 15:09 102 97 30 09/09/16 15:00 90 13 113/42 97 BIPAP 09/09/16 14:30 91 18 110/34 99 09/09/16 14:00 93 18 93/51 99 BIPAP 09/09/16 13:30 88 9 95/51 96 09/09/16 13:11 91 96 30 09/09/16 13:00 91 12 91/30 96 BIPAP 09/09/16 12:30 92 23 102/28 95 09/09/16 12:00 91 09/09/16 12:00 98.1 100 18 91/32 98 BIPAP 09/09/16 11:30 98 20 114/45 95 09/09/16 11:20 94 100 30 09/09/16 11:00 88 21 99/57 100 BIPAP 09/09/16 10:30 88 15 120/31 100 09/09/16 10:00 100 20 108/29 96 BIPAP 09/09/16 09:36 96 100 30 09/09/16 09:30 96 28 103/89 100 09/09/16 09:05 102 09/09/16 09:00 98 16 100 BIPAP 09/09/16 08:30 97 20 88/32 98 09/09/16 08:00 99 09/09/16 08:00 97.9 92 22 99 BIPAP 09/09/16 07:33 98 99 40 09/09/16 07:30 102 19 09/09/16 07:30 98 23 104/52 96 09/09/16 07:15 100 09/09/16 07:00 100 09/09/16 07:00 99 19 130/101 100 BIPAP 09/09/16 06:45 96 09/09/16 06:30 105 09/09/16 06:29 111/58 BIPAP 09/09/16 06:15 101 09/09/16 06:00 103 09/09/16 05:45 102 09/09/16 05:30 101 09/09/16 05:30 105 20 108/62 BIPAP 09/09/16 05:20 107 98 40 09/09/16 05:15 108 20 110/62 BIPAP 09/09/16 05:15 98 09/09/16 05:00 101 09/09/16 05:00 107 20 97 09/09/16 04:45 100 09/09/16 04:30 100 19 09/09/16 04:30 100 09/09/16 04:00 98.9 114 21 107/60 94 BIPAP 09/09/16 04:00 119 09/09/16 03:32 103 96 40 09/09/16 03:30 103 23 93/47 95 BIPAP 09/09/16 03:00 95 21 98/72 93 BIPAP 09/09/16 02:30 102 20 114/49 95 BIPAP 09/09/16 02:00 99 22 114/49 97 BIPAP 09/09/16 01:45 99 16 111/54 96 BIPAP 09/09/16 01:30 103 22 105/53 95 BIPAP 09/09/16 01:15 105 21 103/38 93 BIPAP 09/09/16 01:00 120 96 40 09/09/16 01:00 101 17 93/53 96 BIPAP 09/09/16 00:45 104 25 121/108 93 BIPAP 09/09/16 00:30 110 18 105/40 97 BIPAP 09/09/16 00:15 110 21 101/53 94 BIPAP 09/09/16 00:00 105 09/09/16 00:00 99.5 124 26 102/50 96 BIPAP 09/08/16 23:45 116 18 89/48 95 BIPAP 09/08/16 23:30 111 94 40 09/08/16 23:30 114 16 91/38 93 BIPAP 09/08/16 23:15 117 18 104/56 94 BIPAP 09/08/16 23:05 115 96 40 09/08/16 23:00 105 19 86/52 95 BIPAP 09/08/16 23:00 10.0 09/08/16 22:45 113 18 76/45 94 BIPAP 09/08/16 22:30 126 16 86/65 94 BIPAP 09/08/16 22:15 111 19 91/51 96 BIPAP 09/08/16 22:00 110 24 83/39 97 BIPAP 09/08/16 21:33 129 97 40 09/08/16 21:30 125 25 105/40 99 Mask 09/08/16 21:00 126 29 80/69 100 Mask 09/08/16 20:34 101/79 Mask 09/08/16 20:00 Simple Mask 10.0 09/08/16 20:00 139 09/08/16 20:00 99.0 124 22 59/47 99 Mask 09/08/16 19:30 130 19 92 Mask 09/08/16 19:27 143/123 99 Mask 09/08/16 18:29 114 20 88/41 100 Non Rebreather 09/08/16 18:00 122 21 80/70 100 09/08/16 16:00 118 09/08/16 15:51 100 15.0 09/08/16 13:45 114 100 40 09/08/16 13:15 118 21 90/51 100 BIPAP 09/08/16 13:00 122 22 69/56 100 BIPAP 09/08/16 12:00 98.3 112 17 89/64 99 BIPAP 09/08/16 12:00 98 09/08/16 11:41 110 100 40 09/08/16 10:00 106 16 108/97 100 BIPAP 09/08/16 09:22 110 100 50 09/08/16 09:00 98 19 106/65 BIPAP 09/08/16 08:00 98.0 113 22 88/54 100 BIPAP 09/08/16 08:00 110 09/08/16 07:36 109 99 50 09/08/16 06:15 105 20 103/64 100 BIPAP 09/08/16 06:00 101 17 100 BIPAP 09/08/16 05:45 97 18 97/60 100 BIPAP 09/08/16 05:41 104 100 40 09/08/16 05:30 102 16 95/67 100 BIPAP 09/08/16 05:15 96 17 90/50 100 BIPAP 09/08/16 05:00 101 18 74/50 100 BIPAP 09/08/16 04:45 98 11 100 BIPAP 09/08/16 04:30 107 21 111/89 100 BIPAP 09/08/16 04:15 97 19 100 BIPAP 09/08/16 04:00 105 09/08/16 04:00 105 17 86/39 100 BIPAP 09/08/16 03:56 100 50 09/08/16 03:45 102 21 96/67 100 BIPAP 09/08/16 03:30 103 23 97 BIPAP 09/08/16 03:15 95 15 76/56 98 BIPAP 09/08/16 03:10 108 100 100 09/08/16 03:00 123 16 115/96 100 BIPAP 09/08/16 02:45 99 18 100 Mask 09/08/16 02:30 94 21 99 Mask 09/08/16 02:30 113 22 100 Non Rebreather Mask 15.0 100 09/08/16 02:20 100 15.0 100 09/08/16 02:15 Simple Mask 10.0 09/08/16 02:15 89 12 109/87 92 Mask 10.0 09/08/16 02:04 97.4 90 24 108/95 87 Mask 09/08/16 01:00 97.9 80 14 118/54 100 Mask 10.0 09/08/16 00:30 79 14 101/43 97 Mask 10.0 09/07/16 23:30 88 14 111/92 99 Mask 10.0 09/07/16 22:30 85 14 102/67 100 Mask 10.0 09/07/16 21:30 81 16 111/74 100 Mask 10.0 09/07/16 20:00 89 16 101/42 99 Mask 4.0 09/07/16 18:30 84 14 94/64 97 Nasal Cannula 3.0 09/07/16 16:27 83 17 99/46 100 Nasal Cannula 2.0 09/07/16 14:31 100.3 65 18 111/63 99 Vital Signs Date Time Temp Pulse Resp B/P Pulse Ox O2 Delivery O2 Flow Rate FiO2 09/10/16 08:00 106 09/10/16 07:00 20 105/44 97 BIPAP 09/10/16 05:23 30 09/10/16 04:00 98.6 09/08/16 23:00 10.0 Intake and Output 09/09/16 09/09/16 09/10/16 15:00 23:00 07:00 Intake Total 788.6 ml 516.9 ml 400 ml Output Total 4000 ml 0 ml Balance -3211.4 ml 516.9 ml 400 ml Exam Constitutional: non-verbal, obese, No alert, No oriented Respiratory: congested cough, crackles/rales, diminished breath sounds (L mid and lower), labored breathing (against BiPAP) Cardiovascular: irregular rhythm, No edema, No murmurs/extra sounds, No regular rate and rhythm, No rub Gastrointestinal: bowel sounds, nl liver, spleen, non-tender, soft, No mass, No rebound or guarding Musculoskeletal: joint tenderness (BLE markedly sensitive to touch due to neuropathy), nl extremities to inspection Extremities: normal pulses, No clubbing, No cyanosis, No edema 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: lethargic (due to narcotic sedation), No nl mental status, No nl speech Additional Comments Bedside Glucose - 72 Hours Test 09/07/16 18:36 09/08/16 02:41 09/08/16 08:37 09/08/16 11:28 Bedside Glucose 139mg/dL (70-220) 162mg/dL (70-220) 98mg/dL (70-220) 73mg/dL (70-220) Test 09/08/16 16:57 09/08/16 20:48 09/08/16 22:30 09/09/16 05:20 Bedside Glucose 103mg/dL (70-220) 93mg/dL (70-220) 110mg/dL (70-220) 118mg/dL (70-220) Test 09/09/16 09:08 09/09/16 12:43 09/09/16 16:31 09/09/16 20:35 Bedside Glucose 140mg/dL (70-220) 131mg/dL (70-220) 127mg/dL (70-220) 105mg/dL (70-220) Test 09/10/16 00:49 09/10/16 06:01 09/10/16 08:42 Bedside Glucose 113mg/dL (70-220) 98mg/dL (70-220) 97mg/dL (70-220) Results Result Diagram: 09/10/1651909/10/16 0520 Results 24 hrs Laboratory Tests Test 09/09/16 12:43 09/09/16 16:31 09/09/16 20:35 09/10/16 00:49 Bedside Glucose 131 127 105 113 Test 09/10/16 05:20 09/10/16 06:01 09/10/16 07:00 09/10/16 08:42 White Blood Count 7.8 # Red Blood Count 3.39 L Hemoglobin 10.2 L Hematocrit 32.2 L Mean Corpuscular Volume 95.0 Mean Corpuscular Hemoglobin 30.1 Mean Corpuscular Hemoglobin Concent 31.7 L Red Cell Distribution Width 15.5 H Platelet Count 190 Mean Platelet Volume 10.8 H Neutrophils % 73.2 Lymphocytes % 18.8 Monocytes % 6.3 Eosinophils % 0.9 Basophils % 0.4 Nucleated Red Blood Cells % 0.0 Neutrophils # 5.7 Lymphocytes # 1.5 Monocytes # 0.5 Eosinophils # 0.1 Basophils # 0.0 Nucleated Red Blood Cells # 0.0 Sodium Level 134 L Potassium Level 4.2 Chloride Level 98 Carbon Dioxide Level 29 Anion Gap 11 Blood Urea Nitrogen 36 H Creatinine 6.04 H Glucose Level 96 Calcium Level 8.2 L Phosphorus Level 7.4 H Bedside Glucose 98 97 Blood Gas Specimen Source Blood arterial Arterial Blood Date Drawn 09/10/2016 7:15:08 AM Arterial Blood pH (Temp corrected) 7.317 L Arterial Blood pCO2 (Temp correct) 56.2 H Arterial Blood pO2 (Temp corrected) 79.8 L Arterial Blood HCO3 28.1 H Arterial Blood Base Excess 1.0 Arterial Blood Oxygen Saturation 94.9 L Soy Test N/A Arterial Blood Gas Puncture Site LB Arterial Blood Carboxyhemoglobin 0.9 Arterial Blood Methemoglobin 0.2 Blood Gas A-a O2 Differential 68.1 H Oxyhemoglobin Percent 93.9 Total Hemoglobin 12.0 Blood Gas Temperature 37.0 Blood Gas Respiration Rate 20.0 Blood Gas Actual Respiration Rate 21 Blood Gas Modality MASK - BIPAP FiO2 30.0 Blood Gas Pressure Support 18 Blood Gas IPAP/EPAP Ratio 08/10 Blood Gas Notified Whom CW Blood Gas Notified Time 09/10/2016 7:43:20 AM Medications Medications Current Medications Acetaminophen/ Hydrocodone Bitart ([place] (5/325)) 1 tab Q6H PRN PO MODERATE PAIN LEVEL 4-6 Last administered on 09/09/16t 02:23; Admin Dose 1 TAB; Start at 17:30 Acetaminophen/ Hydrocodone Bitart ([place] (5/325)) 2 tab Q6H PRN PO SEVERE PAIN LEVEL 7-10; Start 09/07/16 at 17:30 Docusate Sodium (Colace) 100 mg Q12H PRN PO CONSTIPATION; Start 09/07/16 at 17: 30 Sodium Biphosphate/ Sodium Phosphate (Fleet Enema) 133 ml DAILY PRN CA CONSTIPATION; Start 09/07/16 at 17:30 Famotidine (Pepcid Iv) 20 mg DAILY IV Last administered on 09/10/16 08:43; Admin Dose 20 MG; Start 09/08/16 at 09:00 Heparin Sodium (Porcine) (Heparin (5000 Units/0.5 ml)) 5,000 unit Q12 SC Last administered on 09/10/16 08:49; Admin Dose 5,000 UNIT; Start 09/07/16 at 21:00 Folic Acid (Folic Acid) 1 mg BID PO ; Start 09/07/16 at 21:00 Metoprolol Tartrate (Lopressor) 12.5 mg BID PO ; Start 09/07/16 at 23:00 Fenofibrate (Tricor) 48 mg QAM PO ; Start 09/08/16 at 09:00 Linagliptin (Tradjenta) 5 mg DAILY PO ; Start 09/07/16 at 18:00 Insulin Glargine (Lantus) 2 unit BID@08,20 SC Last administered on 09/10/16 08 :49; Admin Dose 2 UNIT; Start 09/07/16 at 20:00 Fish Oil (Fish Oil) 2,000 mg BID PO ; Start 09/07/16 at 21:00 Salmeterol Xinafoate/ Fluticasone (Advair 250/50 Diskus) 1 inh BID INH Last administered on 09/08/16 00:11; Admin Dose 1 INH; Start 09/07/16 at 23:00 Atorvastatin Calcium (Lipitor) 40 mg QHS PO ; Start 09/07/16 at 21:00 Gabapentin (Neurontin) 900 mg QHS PO ; Start 09/07/16 at 21:00 Prednisone (Prednisone) 7.5 mg QAM PO ; Start 09/08/16 at 09:00 Miscellaneous Information 1 ea NOTE XX ; Start 09/07/16 at 18:00 Glucose (Glutose) 15 gm Q15M PRN PO DECREASED GLUCOSE; Start 09/07/16 at 18:00 Glucose (Glutose) 22.5 gm Q15M PRN PO DECREASED GLUCOSE; Start 09/07/16 at 18: 00 Dextrose (D50w Syringe) 25 ml Q15M PRN IV DECREASED GLUCOSE; Start 09/07/16 at 18:00 Dextrose (D50w Syringe) 50 ml Q15M PRN IV DECREASED GLUCOSE; Start 09/07/16 at 18:00 Glucagon (Glucagen) 1 mg Q15M PRN IM DECREASED GLUCOSE; Start 09/07/16 at 18:00 Glucose (Glutose) 15 gm Q15M PRN BUCCAL DECREASED GLUCOSE; Start 09/07/16 at 18 :00 Naloxone HCl (Narcan) 0.2 mg Q2M PRN IV DECREASED REPIRATORY RATE Last administered on 09/08/16 02:44; Admin Dose 0.2 MG; Start 09/08/16 at 02:30 Tramadol HCl 50 mg 50 mg Q8H PRN PO PAIN Last administered on 09/08/16 15:57; Admin Dose 50 MG; Start 09/08/16 at 16:00 Dextrose/Sodium Chloride 1,000 ml @ 50 mls/hr Q20H IV Last administered on 17:18; Admin Dose 50 MLS/HR; Start 09/08/16 at 21:30 Phenylephrine HCl/ Dextrose (Efraín-Syneph/D5W) 500 ml @ 75 mls/hr TITRATE IV ; Start 09/09/16 at 03:00 Insulin Aspart (Novolog Insulin Pen) NOVOLOG *MILD* ALGORI... Q4 SC ; Start at 05:00 Hydromorphone HCl (Dilaudid) 0.5 mg Q2H PRN IV PAIN Last administered on 07:43; Admin Dose 0.5 MG; Start 09/09/16 at 08:30 SOBEIDA ENRIQUEZ MD September 10, 2016 11:42
--- NOTE | 2016-09-10 13:26 | CONS ---
Date/Time of Note Date/Time of Note DATE: 09/10/16 TIME: 13:08 Consult Date/Type/Reason Admit Date/Time September 07, 2016 at 16:36 Initial Consult Date 09/08/16 Type of Consultation: Pulm/CCM Ordering Provider: TOMER GARCIA MD Subjective Remains on BiPAP with IPAP 24 EPAP 6; FiO2 30%. Alert Objective Vital Signs Date Time Temp Pulse Resp B/P Pulse Ox O2 Delivery O2 Flow Rate FiO2 09/10/16 11:00 114 17 98/44 97 BIPAP 09/10/16 10:55 30 09/10/16 08:00 98.6 09/08/16 23:00 10.0 Intake and Output 09/09/16 09/09/16 09/10/16 15:00 23:00 07:00 Intake Total 788.6 ml 516.9 ml 400 ml Output Total 4000 ml 0 ml Balance -3211.4 ml 516.9 ml 400 ml Exam HEENT: Neck supple; no JVD; no LAD; c-collar in place; BiPAP in place CVS: Irreg S1 and S2, 2/2 systolic murmur CHEST: Diminished breath sounds L > R ABD: Soft, NT, + BS EXT: No c/c; + edema Results/Medications Result Diagram: 09/10/1651909/10/16 0520 Results 24 hrs Laboratory Tests Test 09/09/16 16:31 09/09/16 20:35 09/10/16 00:49 09/10/16 05:20 Bedside Glucose 127 105 113 White Blood Count 7.8 # Red Blood Count 3.39 L Hemoglobin 10.2 L Hematocrit 32.2 L Mean Corpuscular Volume 95.0 Mean Corpuscular Hemoglobin 30.1 Mean Corpuscular Hemoglobin Concent 31.7 L Red Cell Distribution Width 15.5 H Platelet Count 190 Mean Platelet Volume 10.8 H Neutrophils % 73.2 Lymphocytes % 18.8 Monocytes % 6.3 Eosinophils % 0.9 Basophils % 0.4 Nucleated Red Blood Cells % 0.0 Neutrophils # 5.7 Lymphocytes # 1.5 Monocytes # 0.5 Eosinophils # 0.1 Basophils # 0.0 Nucleated Red Blood Cells # 0.0 Sodium Level 134 L Potassium Level 4.2 Chloride Level 98 Carbon Dioxide Level 29 Anion Gap 11 Blood Urea Nitrogen 36 H Creatinine 6.04 H Glucose Level 96 Calcium Level 8.2 L Phosphorus Level 7.4 H Test 09/10/16 06:01 09/10/16 07:00 09/10/16 08:42 09/10/16 12:18 Bedside Glucose 98 97 91 Blood Gas Specimen Source Blood arterial Arterial Blood Date Drawn 09/10/2016 7:15:08 AM Arterial Blood pH (Temp corrected) 7.317 L Arterial Blood pCO2 (Temp correct) 56.2 H Arterial Blood pO2 (Temp corrected) 79.8 L Arterial Blood HCO3 28.1 H Arterial Blood Base Excess 1.0 Arterial Blood Oxygen Saturation 94.9 L Soy Test N/A Arterial Blood Gas Puncture Site LB Arterial Blood Carboxyhemoglobin 0.9 Arterial Blood Methemoglobin 0.2 Blood Gas A-a O2 Differential 68.1 H Oxyhemoglobin Percent 93.9 Total Hemoglobin 12.0 Blood Gas Temperature 37.0 Blood Gas Respiration Rate 20.0 Blood Gas Actual Respiration Rate 21 Blood Gas Modality MASK - BIPAP FiO2 30.0 Blood Gas Pressure Support 18 Blood Gas IPAP/EPAP Ratio 08/10 Blood Gas Notified Whom CW Blood Gas Notified Time 09/10/2016 7:43:20 AM Medications Current Medications Acetaminophen/ Hydrocodone Bitart ([place] (5/325)) 1 tab Q6H PRN PO MODERATE PAIN LEVEL 4-6 Last administered on 09/09/16 02:23; Admin Dose 1 TAB; Start at 17:30 Acetaminophen/ Hydrocodone Bitart ([place] (5/325)) 2 tab Q6H PRN PO SEVERE PAIN LEVEL 7-10; Start 09/07/16 at 17:30 Docusate Sodium (Colace) 100 mg Q12H PRN PO CONSTIPATION; Start 09/07/16 at 17: 30 Sodium Biphosphate/ Sodium Phosphate (Fleet Enema) 133 ml DAILY PRN SC CONSTIPATION; Start 09/07/16 at 17:30 Famotidine (Pepcid Iv) 20 mg DAILY IV Last administered on 09/10/16 08:43; Admin Dose 20 MG; Start 09/08/16 at 09:00 Heparin Sodium (Porcine) (Heparin (5000 Units/0.5 ml)) 5,000 unit Q12 SC Last administered on 09/10/16 08:49; Admin Dose 5,000 UNIT; Start 09/07/16 at 21:00 Folic Acid (Folic Acid) 1 mg BID PO ; Start 09/07/16 at 21:00 Metoprolol Tartrate (Lopressor) 12.5 mg BID PO ; Start 09/07/16 at 23:00 Fenofibrate (Tricor) 48 mg QAM PO ; Start 09/08/16 at 09:00 Linagliptin (Tradjenta) 5 mg DAILY PO ; Start 09/07/16 at 18:00 Insulin Glargine (Lantus) 2 unit BID@08,20 SC Last administered on 09/10/16 08 :49; Admin Dose 2 UNIT; Start 09/07/16 at 20:00 Fish Oil (Fish Oil) 2,000 mg BID PO ; Start 09/07/16 at 21:00 Salmeterol Xinafoate/ Fluticasone (Advair 250/50 Diskus) 1 inh BID INH Last administered on 09/08/16 00:11; Admin Dose 1 INH; Start 09/07/16 at 23:00 Atorvastatin Calcium (Lipitor) 40 mg QHS PO ; Start 09/07/16 at 21:00 Gabapentin (Neurontin) 900 mg QHS PO ; Start 09/07/16 at 21:00 Prednisone (Prednisone) 7.5 mg QAM PO ; Start 09/08/16 at 09:00; Status Future Hold Miscellaneous Information 1 ea NOTE XX ; Start 09/07/16 at 18:00 Glucose (Glutose) 15 gm Q15M PRN PO DECREASED GLUCOSE; Start 09/07/16 at 18:00 Glucose (Glutose) 22.5 gm Q15M PRN PO DECREASED GLUCOSE; Start 09/07/16 at 18: 00 Dextrose (D50w Syringe) 25 ml Q15M PRN IV DECREASED GLUCOSE; Start 09/07/16 at 18:00 Dextrose (D50w Syringe) 50 ml Q15M PRN IV DECREASED GLUCOSE; Start 09/07/16 at 18:00 Glucagon (Glucagen) 1 mg Q15M PRN IM DECREASED GLUCOSE; Start 09/07/16 at 18:00 Glucose (Glutose) 15 gm Q15M PRN BUCCAL DECREASED GLUCOSE; Start 09/07/16 at 18 :00 Naloxone HCl (Narcan) 0.2 mg Q2M PRN IV DECREASED REPIRATORY RATE Last administered on 09/08/16 02:44; Admin Dose 0.2 MG; Start 09/08/16 at 02:30 Tramadol HCl 50 mg 50 mg Q8H PRN PO PAIN Last administered on 09/08/16 15:57; Admin Dose 50 MG; Start 09/08/16 at 16:00 Dextrose/Sodium Chloride 1,000 ml @ 50 mls/hr Q20H IV Last administered on 17:18; Admin Dose 50 MLS/HR; Start 09/08/16 at 21:30 Phenylephrine HCl/ Dextrose (Efraín-Syneph/D5W) 500 ml @ 75 mls/hr TITRATE IV ; Start 09/09/16 at 03:00 Insulin Aspart (Novolog Insulin Pen) NOVOLOG *MILD* ALGORI... Q4 SC ; Start at 05:00 Hydromorphone HCl (Dilaudid) 0.5 mg Q2H PRN IV PAIN Last administered on 07:43; Admin Dose 0.5 MG; Start 09/09/16 at 08:30 Methylprednisolone Sodium Succinate (Solu-Medrol) 10 mg QAM IV Last administered on 09/10/16 11:47; Admin Dose 10 MG; Start 09/10/16 at 11:30 Methylprednisolone Sodium Succinate (Solu-Medrol) 5 mg QPM IV ; Start 09/10/16 at 21:00 Assessment/Plan Additional Assessment/Plan IMP: 1. Acute on chronic hypercapnic respiratory failure: multifactorial in etiology. Possible underlying OSH or COPD. Query due to c-spine injury. 2. C-spine injury--high-risk intubation if needed. 3. s/p TAVR. Patient admitted with a fall resulting in spinal fracture without any neurological compromise. 4. End-stage renal disease, on hemodialysis. 5. Pulmonary sarcoidosis, patient on long-term prednisone use. 6. History of hypertension. 7. Diabetes. 7. Coronary artery disease. Status post PTCA in the past. 8. CHF RECS: 1. Very tenuous situation due to the her respiratory status and unstable c- spine. 2. Also her nutrition status in poor given her BIPAP needs 3. Will observe off BiPAP; resume if increased altered mental status 4. Would benefit from a PICC 5. Agree with reinitiating steroids 6. Concern for some component of diaphragmatic weakness 7. Continue HD/UF 8. Would need fiberoptic intubation if she fails current management plan 40 min cc time SAEED CERVANTES MD September 10, 2016 13:18
[2016-09-10] MEDS: DEXTROSE 5%-0.225% NACL 1,000 ML IV SCH (13:27)
--- NOTE | 2016-09-10 14:36 | CONS ---
Date/Time of Note Date/Time of Note DATE: 09/10/16 TIME: 14:24 Assessment/Plan Assessment/Plan Chief Complaint/Hosp Course 1. ESRD on maintenance hemodialysis . Her CXR shows pulmonary edema . I will order 2 hours of DUF today . I explained to the family that she is in critical condition and dialysis could cause drop in BP , tachycardia . She needs the dialysis to remove excess fluid in her lungs . they understand . 2. neck vertebrae fracture 3. respiratory failure 4. hypotension/ tachycardia . 5. A fib Problems: Consultation Date/Type/Reason Admit Date/Time September 07, 2016 at 16:36 Initial Consult Date 09/08/16 Type of Consultation: Pulm/CCM Referring Provider: TOMER GARCIA MD 24 HR Interval Summary Free Text/Dictation She is in the ICU awake and responsive . She is on a 100 % mask . Exam/Review of Systems Vital Signs Vitals Vital Signs Date Time Temp Pulse Resp B/P Pulse Ox O2 Delivery O2 Flow Rate FiO2 09/10/16 12:00 101 09/10/16 11:00 17 98/44 97 BIPAP 09/10/16 10:55 30 09/10/16 08:00 98.6 09/08/16 23:00 10.0 Intake and Output 09/09/16 09/09/16 09/10/16 15:00 23:00 07:00 Intake Total 788.6 ml 516.9 ml 400 ml Output Total 4000 ml 0 ml Balance -3211.4 ml 516.9 ml 400 ml Exam Constitutional: alert, distress, frail Head: normocephalic Neck: nuchal rigidity Respiratory: clear to auscultation, diminished breath sounds Cardiovascular: edema, regular rate and rhythm Gastrointestinal: soft Extremities: edema Results Result Diagram: 09/10/16 0520 09/10/16 0520 Results 24 hrs Laboratory Tests Test 09/09/16 16:31 09/09/16 20:35 09/10/16 00:49 09/10/16 05:20 Bedside Glucose 127 105 113 White Blood Count 7.8 # Red Blood Count 3.39 L Hemoglobin 10.2 L Hematocrit 32.2 L Mean Corpuscular Volume 95.0 Mean Corpuscular Hemoglobin 30.1 Mean Corpuscular Hemoglobin Concent 31.7 L Red Cell Distribution Width 15.5 H Platelet Count 190 Mean Platelet Volume 10.8 H Neutrophils % 73.2 Lymphocytes % 18.8 Monocytes % 6.3 Eosinophils % 0.9 Basophils % 0.4 Nucleated Red Blood Cells % 0.0 Neutrophils # 5.7 Lymphocytes # 1.5 Monocytes # 0.5 Eosinophils # 0.1 Basophils # 0.0 Nucleated Red Blood Cells # 0.0 Sodium Level 134 L Potassium Level 4.2 Chloride Level 98 Carbon Dioxide Level 29 Anion Gap 11 Blood Urea Nitrogen 36 H Creatinine 6.04 H Glucose Level 96 Calcium Level 8.2 L Phosphorus Level 7.4 H Test 09/10/16 06:01 09/10/16 07:00 09/10/16 08:42 09/10/16 12:18 Bedside Glucose 98 97 91 Blood Gas Specimen Source Blood arterial Arterial Blood Date Drawn 09/10/2016 7:15:08 AM Arterial Blood pH (Temp corrected) 7.317 L Arterial Blood pCO2 (Temp correct) 56.2 H Arterial Blood pO2 (Temp corrected) 79.8 L Arterial Blood HCO3 28.1 H Arterial Blood Base Excess 1.0 Arterial Blood Oxygen Saturation 94.9 L Soy Test N/A Arterial Blood Gas Puncture Site LB Arterial Blood Carboxyhemoglobin 0.9 Arterial Blood Methemoglobin 0.2 Blood Gas A-a O2 Differential 68.1 H Oxyhemoglobin Percent 93.9 Total Hemoglobin 12.0 Blood Gas Temperature 37.0 Blood Gas Respiration Rate 20.0 Blood Gas Actual Respiration Rate 21 Blood Gas Modality MASK - BIPAP FiO2 30.0 Blood Gas Pressure Support 18 Blood Gas IPAP/EPAP Ratio 24 Blood Gas Notified Whom CW Blood Gas Notified Time 09/10/2016 7:43:20 AM Medications Medications Current Medications Acetaminophen/ Hydrocodone Bitart ([place] (5/325)) 1 tab Q6H PRN PO MODERATE PAIN LEVEL 4-6 Last administered on 09/09/16t 02:23; Admin Dose 1 TAB; Start at 17:30 Acetaminophen/ Hydrocodone Bitart ([place] (5/325)) 2 tab Q6H PRN PO SEVERE PAIN LEVEL 7-10; Start 09/07/16 at 17:30 Docusate Sodium (Colace) 100 mg Q12H PRN PO CONSTIPATION; Start 09/07/16 at 17: 30 Sodium Biphosphate/ Sodium Phosphate (Fleet Enema) 133 ml DAILY PRN [place] CONSTIPATION; Start 09/07/16 at 17:30 Famotidine (Pepcid Iv) 20 mg DAILY IV Last administered on 09/10/16 08:43; Admin Dose 20 MG; Start 09/08/16 at 09:00 Heparin Sodium (Porcine) (Heparin (5000 Units/0.5 ml)) 5,000 unit Q12 SC Last administered on 09/10/16 08:49; Admin Dose 5,000 UNIT; Start 09/07/16 at 21:00 Folic Acid (Folic Acid) 1 mg BID PO ; Start 09/07/16 at 21:00 Metoprolol Tartrate (Lopressor) 12.5 mg BID PO ; Start 09/07/16 at 23:00 Fenofibrate (Tricor) 48 mg QAM PO ; Start 09/08/16 at 09:00 Linagliptin (Tradjenta) 5 mg DAILY PO ; Start 09/07/16 at 18:00 Insulin Glargine (Lantus) 2 unit BID@08,20 SC Last administered on 09/10/16 08 :49; Admin Dose 2 UNIT; Start 09/07/16 at 20:00 Fish Oil (Fish Oil) 2,000 mg BID PO ; Start 09/07/16 at 21:00 Salmeterol Xinafoate/ Fluticasone (Advair 250/50 Diskus) 1 inh BID INH Last administered on 09/08/16 00:11; Admin Dose 1 INH; Start 09/07/16 at 23:00 Atorvastatin Calcium (Lipitor) 40 mg QHS PO ; Start 09/07/16 at 21:00 Gabapentin (Neurontin) 900 mg QHS PO ; Start 09/07/16 at 21:00 Prednisone (Prednisone) 7.5 mg QAM PO ; Start 09/08/16 at 09:00; Status Future Hold Miscellaneous Information 1 ea NOTE XX ; Start 09/07/16 at 18:00 Glucose (Glutose) 15 gm Q15M PRN PO DECREASED GLUCOSE; Start 09/07/16 at 18:00 Glucose (Glutose) 22.5 gm Q15M PRN PO DECREASED GLUCOSE; Start 09/07/16 at 18: 00 Dextrose (D50w Syringe) 25 ml Q15M PRN IV DECREASED GLUCOSE; Start 09/07/16 at 18:00 Dextrose (D50w Syringe) 50 ml Q15M PRN IV DECREASED GLUCOSE; Start 09/07/16 at 18:00 Glucagon (Glucagen) 1 mg Q15M PRN IM DECREASED GLUCOSE; Start 09/07/16 at 18:00 Glucose (Glutose) 15 gm Q15M PRN BUCCAL DECREASED GLUCOSE; Start 09/07/16 at 18 :00 Naloxone HCl (Narcan) 0.2 mg Q2M PRN IV DECREASED REPIRATORY RATE Last administered on 09/08/16 02:44; Admin Dose 0.2 MG; Start 09/08/16 at 02:30 Tramadol HCl 50 mg 50 mg Q8H PRN PO PAIN Last administered on 09/08/16 15:57; Admin Dose 50 MG; Start 09/08/16 at 16:00 Dextrose/Sodium Chloride 1,000 ml @ 50 mls/hr Q20H IV Last administered on 13:27; Admin Dose 50 MLS/HR; Start 09/08/16 at 21:30 Phenylephrine HCl/ Dextrose (Efraín-Syneph/D5W) 500 ml @ 75 mls/hr TITRATE IV ; Start 09/09/16 at 03:00 Insulin Aspart (Novolog Insulin Pen) NOVOLOG *MILD* ALGORI... Q4 SC ; Start at 05:00 Hydromorphone HCl (Dilaudid) 0.5 mg Q2H PRN IV PAIN Last administered on 13:27; Admin Dose 0.5 MG; Start 09/09/16 at 08:30 Methylprednisolone Sodium Succinate (Solu-Medrol) 10 mg QAM IV Last administered on 09/10/16 11:47; Admin Dose 10 MG; Start 09/10/16 at 11:30 Methylprednisolone Sodium Succinate (Solu-Medrol) 5 mg QPM IV ; Start 09/10/16 at 21:00 FARIDA BARRERA MD September 10, 2016 14:35
[2016-09-10 15:28] LABS: AADO2 Arterial 271.1 mmHg (7.0-24.0); Arterial Base Excess -2.6 mmol/L (-3.0-3); Arterial COHb 0.5 % (0.0-3.0); Arterial Fraction of Oxyhgb 98.9 % (93.0-99.0); Arterial HCO3 24.4 mmol/L (22.0-26.0); Arterial MetHb 0.2 % (0.0-1.5); Arterial Total Hemglobin 11.3 g/dl (12.0-18.0); MODE MASK - NRB
[2016-09-10] MEDS: AMIODARONE 900 MG in DEXTROSE 5% 482 ML IV SCH (16:20)
--- NOTE | 2016-09-10 19:49 | CONS ---
DATE OF ADMISSION: 09/07/2016 DATE OF CONSULTATION: 09/10/2016 DATE OF CONSULTATION 09/10/2016 Thank you, Dr. Welsh, for your kind referral for evaluation of cervical fracture and abnormality in the cord. HISTORY OF PRESENT ILLNESS: The patient is a 75-year-old lady who was admitted 3 days ago. She has a past medical history of hypertension, coronary artery disease, atrial fibrillation, mitral valve replacement, sarcoidosis, end-stage renal disease on hemodialysis, and diabetes and she fell from her chair probably when she was sleeping or when she fell asleep and she landed on her face. She started having back and neck pain. A CAT scan of the cervical spine shows C2 fracture. The neurosurgeon examined her. No neurosurgical intervention suggested. The patient was put in a hard cervical collar. The patient was somewhat encephalopathic, but better this afternoon according to the nursing staff. The patient had CT of the head, no abnormality, as well as facial CT. MRI of the brain was performed. She had MRI of the cervical spine which showed subtle abnormal bone marrow signal involving the body of C2 and dens which is consistent with known comminuted fracture of C2, minimal right posterolateral displacement of the fracture segments resulting in mild to moderate right foraminal stenosis, long segment posterior spinal cord signal abnormality at the level of C2-3 through 6-7, nonspecific per radiologist, but could be seen in subacute combined degeneration or at times differential could include demyelination infectious inflammation or ischemia. Cervical spondylosis C3-4, C5-6 as described in the full report. The patient's chest x- ray: Cardiomegaly atherosclerosis. LABORATORY DATA: Shows 10.2 hemoglobin, 32.3 hematocrit. Normal WBCs and platelets. Sodium 134, BUN 36, creatinine 6.0, calcium 8.2, phosphorus 7.4. Comprehensive metabolic panel shows normal otherwise a PTT 36, PT 19, pH 728, pCO2 of 52, pO2 389. MEDICATIONS: Prior to admission were 1. Warfarin. 2. Metoprolol 3. Nifedipine. 4. Simvastatin. 5. Fosrenol. 6. Januvia. 7. Folate. Currently she is on: 1. Solu-Medrol 5 mg IV daily. 2. Amiodarone. 3. Also Solu-Medrol 5 mg in the evening and 10 mg in the morning. 4. Dilaudid. 5. Insulin. 6. Tramadol. 7. Pepcid. 8. Tricor. 9. Narcan. 10. ____. 11. Lopressor. 12. Tradjenta. 13. Neurontin 900. The patient is n.p.o. currently so is not getting her p.o. medications. ALLERGIES: NONE. SOCIAL HISTORY: Rare alcohol, no drugs. Nonsmoker. The patient has been taking prednisone prior to admission according to history and physical examination note, I do not see it on reconciliation. In the computer, but according to PMD it was there. PHYSICAL EXAMINATION: VITAL SIGNS: Temperature 98.6, [id number], respirations 17, blood pressure 141/ 65. GENERAL: She is not in acute distress, lying in bed. HEENT: Normocephalic, had a cervical collar. LUNGS: Scattered crackles. CARDIAC: Irregular rate, irregular rhythm. ABDOMEN: Soft, nontender. EXTREMITIES: No cyanosis, clubbing or edema. The patient is being dialyzed currently. She is slightly lethargic, easily arousable by voice. Looks bilaterally. Oriented x2. Fluent speech. Follows commands. Present response to visual threats bilaterally. Pupils fixed at about 2 mm on the left and 3 mm on the right. Extraocular movements intact without nystagmus. Symmetrical face. Preserved facial strength and sensation. Tongue is in midline. Motor strength examination is limited because of pain. She has history of painful polyneuropathy, is very sensitive on her feet and hands. The patient was able to move her extremities at least 3/5 symmetrically. I did not check flexion of the elbow movements in proximal muscles in the right arm because of dialysis needles and tubes going there but distally she was able to make a fist. Deep tendon reflexes 2+ upper extremities , absent in lower extremities. Upgoing toes bilaterally. Coordination seems to be preserved, at least in the left upper extremity. No tremor is seen. IMPRESSION: Status post incidental fall with C2 fracture in patient with multiple medical problems including sarcoidosis and end-stage renal disease, diabetes, coronary artery disease. The patient was on chronic prednisone use. Neurosurgeon evaluated the patient suggested to continue C-collar. He feels that describes on MRI of the cervical spine cord changes in the posterior cervical cord are not related to compression or trauma. I reviewed the MRI and at least to my not really experienced eye, the images are relatively poor quality and with some movement artifact. The patient has no history of multiple sclerosis or any demyelinating illness. If the changes only involve the posterior column, that could be related to subacute combined degeneration which is secondary to B12 deficiency, though patient's labs do not show any signs of macrocytic anemia. I am going to review and obtain B12 level of course , if it was not done so far. I do not think that for those changes she should be treated with high-dose steroids or any steroid treatment at all. I forgot to mention during my examination that she has numbness in her feet and hands secondary to polyneuropathy and allodynia, which is hypersensitive perception of not painful stimuli in the feet. Continue current treatment. When patient is able to take p.o. restart Gabapentin. Thank you very much for this interesting consultation. Dictated By: RODRIGUE ORANTES/CORNELIUS Conf#: [id number] DID#: [id number] MTDD
[2016-09-10] MEDS: ATORVASTATIN 40 MG TAB PO SCH (21:00)
[2016-09-10] MEDS: GABAPENTIN 300 MG CAP PO SCH (21:00)
[2016-09-11] VITALS (25 sets, daily range): BP systolic 82–140; BP diastolic 36–119; PULSE 88–116; RESP 14–23
[2016-09-11] MEDS: INSULIN ASPART [NOVOLOG] 3 ML PEN SC SCH ×6 (01:00→21:00)
[2016-09-11] MEDS: HYDROmorphONE 1 MG/ML SYG IV PRN ×3 (02:36→13:57)
[2016-09-11 05:48] LABS: ADD SCAN DIFF NO
[2016-09-11 06:06] LABS: BASOPHILS % 0.3 % (0.0-2.0); HEMATOCRIT 31.9 % (37.0-47.0); HEMOGLOBIN 10.7 g/dl (12.0-16.0); LYMPHOCYTES % 14.8 % (15.0-51.0); MEAN CORPUSCULAR HEMOGLOBIN 29.9 pg (29.0-33.0); MEAN CORPUSCULAR HGB CONC 33.5 g/dl (32.0-37.0); MEAN CORPUSCULAR VOLUME 89.1 fl (82.0-101.0); MEAN PLATELET VOLUME 10.3 fl (7.4-10.4); MONOCYTE # 0.3 10^3/ul (0.3-0.9); MONOCYTES % 4.4 % (0.0-11.0); NEUTROPHIL # 5.5 10^3/ul (1.6-7.5); NEUTROPHILS % 80.1 % (39.0-77.0); PLATELET COUNT 224 10^3/UL (140-415); RED BLOOD COUNT 3.58 10^6/ul (4.20-5.40); RED CELL DISTRIBUTION WIDTH 14.3 % (11.5-14.5); WHITE BLOOD COUNT 6.8 10^3/ul (4.8-10.8)
[2016-09-11 06:17] LABS: POTASSIUM 4.6 mmol/L (3.5-5.1)
[2016-09-11 06:21] LABS: CALCIUM 8.7 mg/dl (8.4-10.2)
[2016-09-11 06:34] LABS: CREATININE 7.85 mg/dl (0.44-1.00)
[2016-09-11] MEDS: SEVELAMER CARBONATE 0.8 GM PKT PO SCH ×3 (08:26→16:02)
[2016-09-11] MEDS: METOPROLOL 25 MG TAB PO SCH ×2 (08:27→21:00)
[2016-09-11] MEDS: FISH OIL 1,000 MG CAP PO SCH ×2 (08:27→21:00)
[2016-09-11] MEDS: FOLIC ACID 1 MG TAB PO SCH ×2 (08:27→21:00)
[2016-09-11] MEDS: LINAGLIPTIN 5 MG TABLET PO SCH (08:27)
[2016-09-11] MEDS: FENOFIBRATE 48 MG TAB PO SCH (08:27)
[2016-09-11] MEDS: INSULIN GLARGINE [LANtus] 3 ML PEN SC SCH ×2 (08:34→20:24)
[2016-09-11] MEDS: HEPARIN 5,000 UNIT/0.5 ML VIAL SC SCH ×2 (08:35→21:30)
[2016-09-11] MEDS: SALMETEROL/FLUTICASONE 250/50 INHA INH SCH (08:38)
[2016-09-11] MEDS: FAMOTIDINE 20 MG INJ IV SCH (08:48)
[2016-09-11] MEDS: METHYLPREDNISOLONE 40 MG INJ IV SCH ×2 (08:48→21:25)
[2016-09-11] MEDS: DEXTROSE 5%-0.225% NACL 1,000 ML IV SCH (08:50)
[2016-09-11] MEDS ORDERED: LIDOCAINE 1% (MPF) 5 ML VIAL SC ONE (09:00)
--- NOTE | 2016-09-11 09:35 | CONS ---
Date/Time of Note Date/Time of Note DATE: 09/11/16 TIME: 09:27 Assessment/Plan Assessment/Plan Chief Complaint/Hosp Course Impression: # Atrial Fibrillation- non valvular, chronic currently in rvr. anticoag with coumadin at baseline now off give c2/fxr, fall # s/p TAVR- stable # s/p fall with C2 cervical fracture # COPD on BIPAP # ESRD on iHD # HTN, bp now stable Recommendations: - bp stable, will consider restart metoprolol when taking po - cont amio gtt for rate control - consider digoxin if bp marginal and rates are unctonrolled, however given iHD would be hesitant to add at this time - off anticoag given c2 fxr and fall - fluid mgmt with iHD per renal - will follow Problems: Consultation Date/Type/Reason Admit Date/Time September 07, 2016 at 16:36 Initial Consult Date 09/08/16 Type of Consultation: Cardiology Referring Provider: TOMER GARCIA MD 24 HR Interval Summary Free Text/Dictation pt remains in icu, off bipap. denies any palpitations, sob, chest pain. remains npo in c-collar tele reviewed- afib, rate 100s Detailed Summary Eyes: no complaints ENT: no complaints Respiratory: no complaints Cardiovascular: no complaints Gastrointestinal: no complaints Exam/Review of Systems Vital Signs Vitals Vital Signs Date Time Temp Pulse Resp B/P Pulse Ox O2 Delivery O2 Flow Rate FiO2 09/11/16 09:00 106 17 111/37 97 Nasal Cannula 6.0 09/11/16 08:00 98.4 09/10/16 13:45 100 Intake and Output 09/10/16 09/10/16 09/11/16 15:00 23:00 07:00 Intake Total 400 ml 933.16 ml 533.28 ml Output Total 3800 ml 0 ml Balance 400 ml -2866.84 ml 533.28 ml Exam Constitutional: alert, oriented Neck: other (in ccollar) Respiratory: clear to auscultation Cardiovascular: edema, other (irregualrly irregular, nl s1s2, tachy. ii/vi vsem ) Gastrointestinal: non-tender, soft Musculoskeletal: nl extremities to inspection Extremities: normal pulses, other (tender to palpation) 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: REVERSER II-XII intact Results Result Diagram: 09/11/1651909/11/16 05 Results 24 hrs Laboratory Tests Test 09/10/16 12:18 09/10/16 14:00 09/10/16 16:11 09/10/16 20:38 Bedside Glucose 91 115 133 Blood Gas Specimen Source Blood arterial Arterial Blood Date Drawn 09/10/2016 3:20:34 PM Arterial Blood pH (Temp corrected) 7.288 *L Arterial Blood pCO2 (Temp correct) 52.2 H Arterial Blood pO2 (Temp corrected) 389.7 H Arterial Blood HCO3 24.4 Arterial Blood Base Excess -2.6 Arterial Blood Oxygen Saturation 99.6 Soy Test N/A Arterial Blood Gas Puncture Site LB Arterial Blood Carboxyhemoglobin 0.5 Arterial Blood Methemoglobin 0.2 Blood Gas A-a O2 Differential 271.1 H Oxyhemoglobin Percent 98.9 Total Hemoglobin 11.3 L Blood Gas Temperature 37.0 Blood Gas Modality MASK - NRB FiO2 100.0 Blood Gas Critical Value Read Back T VERÓNICA RN Blood Gas Notified Whom TM Blood Gas Notified Time 09/10/2016 3:28:06 PM Test 09/11/16 01:22 09/11/16 04:51 09/11/16 05:20 09/11/16 08:33 Bedside Glucose 138 127 114 White Blood Count 6.8 Red Blood Count 3.58 L Hemoglobin 10.7 L Hematocrit 31.9 L Mean Corpuscular Volume 89.1 Mean Corpuscular Hemoglobin 29.9 Mean Corpuscular Hemoglobin Concent 33.5 Red Cell Distribution Width 14.3 Platelet Count 224 Mean Platelet Volume 10.3 Neutrophils % 80.1 H Lymphocytes % 14.8 L Monocytes % 4.4 Eosinophils % 0.0 Basophils % 0.3 Nucleated Red Blood Cells % 0.0 Neutrophils # 5.5 Lymphocytes # 1.0 Monocytes # 0.3 Eosinophils # 0.0 Basophils # 0.0 Nucleated Red Blood Cells # 0.0 Sodium Level 133 L Potassium Level 4.6 Chloride Level 98 Carbon Dioxide Level 26 Anion Gap 14 Blood Urea Nitrogen 52 H Creatinine 7.85 H Glucose Level 135 Calcium Level 8.7 Vitamin B12 Level 516 Thyroid Stimulating Hormone (TSH) 0.368 L Medications Medications Current Medications Acetaminophen/ Hydrocodone Bitart ([place] (5/325)) 1 tab Q6H PRN PO MODERATE PAIN LEVEL 4-6 Last administered on 09/09/16 02:23; Admin Dose 1 TAB; Start at 17:30 Acetaminophen/ Hydrocodone Bitart ([place] (5/325)) 2 tab Q6H PRN PO SEVERE PAIN LEVEL 7-10; Start 09/07/16 at 17:30 Docusate Sodium (Colace) 100 mg Q12H PRN PO CONSTIPATION; Start 09/07/16 at 17: 30 Sodium Biphosphate/ Sodium Phosphate (Fleet Enema) 133 ml DAILY PRN [place] CONSTIPATION; Start 09/07/16 at 17:30 Famotidine (Pepcid Iv) 20 mg DAILY IV Last administered on 09/11/16 08:48; Admin Dose 20 MG; Start 09/08/16 at 09:00 Heparin Sodium (Porcine) (Heparin (5000 Units/0.5 ml)) 5,000 unit Q12 SC Last administered on 09/11/16 08:35; Admin Dose 5,000 UNIT; Start 09/07/16 at 21:00 Folic Acid (Folic Acid) 1 mg BID PO ; Start 09/07/16 at 21:00 Metoprolol Tartrate (Lopressor) 12.5 mg BID PO ; Start 09/07/16 at 23:00 Fenofibrate (Tricor) 48 mg QAM PO ; Start 09/08/16 at 09:00 Linagliptin (Tradjenta) 5 mg DAILY PO ; Start 09/07/16 at 18:00 Insulin Glargine (Lantus) 2 unit BID@08,20 SC Last administered on 09/11/16 08 :34; Admin Dose 2 UNIT; Start 09/07/16 at 20:00 Fish Oil (Fish Oil) 2,000 mg BID PO ; Start 09/07/16 at 21:00 Salmeterol Xinafoate/ Fluticasone (Advair 250/50 Diskus) 1 inh BID INH Last administered on 09/08/16 00:11; Admin Dose 1 INH; Start 09/07/16 at 23:00 Atorvastatin Calcium (Lipitor) 40 mg QHS PO ; Start 09/07/16 at 21:00 Gabapentin (Neurontin) 900 mg QHS PO ; Start 09/07/16 at 21:00 Prednisone (Prednisone) 7.5 mg QAM PO ; Start 09/08/16 at 09:00; Status Future Hold Miscellaneous Information 1 ea NOTE XX ; Start 09/07/16 at 18:00 Glucose (Glutose) 15 gm Q15M PRN PO DECREASED GLUCOSE; Start 09/07/16 at 18:00 Glucose (Glutose) 22.5 gm Q15M PRN PO DECREASED GLUCOSE; Start 09/07/16 at 18: 00 Dextrose (D50w Syringe) 25 ml Q15M PRN IV DECREASED GLUCOSE; Start 09/07/16 at 18:00 Dextrose (D50w Syringe) 50 ml Q15M PRN IV DECREASED GLUCOSE; Start 09/07/16 at 18:00 Glucagon (Glucagen) 1 mg Q15M PRN IM DECREASED GLUCOSE; Start 09/07/16 at 18:00 Glucose (Glutose) 15 gm Q15M PRN BUCCAL DECREASED GLUCOSE; Start 09/07/16 at 18 :00 Naloxone HCl (Narcan) 0.2 mg Q2M PRN IV DECREASED REPIRATORY RATE Last administered on 09/08/16 02:44; Admin Dose 0.2 MG; Start 09/08/16 at 02:30 Tramadol HCl 50 mg 50 mg Q8H PRN PO PAIN Last administered on 09/08/16 15:57; Admin Dose 50 MG; Start 09/08/16 at 16:00 Dextrose/Sodium Chloride 1,000 ml @ 50 mls/hr Q20H IV Last administered on 08:50; Admin Dose 50 MLS/HR; Start 09/08/16 at 21:30 Phenylephrine HCl/ Dextrose (Efraín-Syneph/D5W) 500 ml @ 75 mls/hr TITRATE IV ; Start 09/09/16 at 03:00 Insulin Aspart (Novolog Insulin Pen) NOVOLOG *MILD* ALGORI... Q4 SC ; Start at 05:00 Hydromorphone HCl (Dilaudid) 0.5 mg Q2H PRN IV PAIN Last administered on 02:36; Admin Dose 0.5 MG; Start 09/09/16 at 08:30 Methylprednisolone Sodium Succinate (Solu-Medrol) 10 mg QAM IV Last administered on 09/11/16 08:48; Admin Dose 10 MG; Start 09/10/16 at 11:30 Methylprednisolone Sodium Succinate 5 mg 5 mg QPM IV Last administered on 20:34; Admin Dose 5 MG; Start 09/10/16 at 21:00 Amiodarone HCl/ Dextrose (Cordarone Iv/ D5W) 500 ml @ 16.66 mls/ hr Q24H IV Last administered on 09/10/16t 16:20; Admin Dose 16.66 MLS/HR; Start 09/10/16 at 16:00 Procedures Procedures cxr images reviewed from 09/09- pulmonary edema. EVELYN RANKIN September 11, 2016 09:35
[2016-09-11 10:22] LABS: AADO2 Arterial 161.1 mmHg (7.0-24.0); Arterial Base Excess -2.8 mmol/L (-3.0-3); Arterial COHb 1.1 % (0.0-3.0); Arterial Fraction of Oxyhgb 91.1 % (93.0-99.0); Arterial HCO3 22.7 mmol/L (22.0-26.0); Arterial MetHb 0.2 % (0.0-1.5); Arterial Total Hemglobin 11.4 g/dl (12.0-18.0); MODE NASAL CANNULA
--- NOTE | 2016-09-11 11:59 | RADRPT ---
PROCEDURE: XR Chest. CLINICAL INDICATION: Dyspnea TECHNIQUE: Single frontal chest x-ray. COMPARISON: 09/09/2016 FINDINGS: Cardiomegaly with severe CHF is stable. Ascending aortic stent is stable. Slight worsening consoli dation and effusion is seen within the left lung base. Aortic atherosclerotic vascular calcificatio ns are identified. There is no pneumothorax. Benign chronic changes are seen elsewhere throughout the study. IMPRESSION: 1. Cardiomegaly with severe CHF unchanged over time. 2. Slight worsening consolidation and effusion in the left lung base. 3. Vascular calcifications consistent with atherosclerosis. 4. Stable metallic ascending aortic stent. RPTAT: HMJB .Robert Interiano MD, MD Date Time Electronically viewed and signed by .Robert Interiano MD, on 09/11/2016 11:58 .B/
--- NOTE | 2016-09-11 12:24 | CONS ---
Date/Time of Note Date/Time of Note DATE: 09/11/16 TIME: 12:19 Consult Date/Type/Reason Admit Date/Time September 07, 2016 at 16:36 Initial Consult Date 09/08/16 Type of Consultation: Pulm/CCM Ordering Provider: TOMER GARCIA MD Subjective Doing much better--> now off BiPAP. c-collar in place. Objective Vital Signs Date Time Temp Pulse Resp B/P Pulse Ox O2 Delivery O2 Flow Rate FiO2 09/11/16 11:00 114 15 110/86 98 Nasal Cannula 6.0 09/11/16 08:00 98.4 09/10/16 13:45 100 Intake and Output 09/10/16 09/10/16 09/11/16 15:00 23:00 07:00 Intake Total 400 ml 933.16 ml 533.28 ml Output Total 3800 ml 0 ml Balance 400 ml -2866.84 ml 533.28 ml Exam HEENT: Neck supple; no JVD; no LAD; c-collar in place CVS: Irreg irreg S1 and S2, 2/2 systolic murmur CHEST: Diminished breath sounds L > R ABD: Soft, NT, + BS EXT: No c/c; + edema Results/Medications Result Diagram: 09/11/16 0520 09/11/16 0520 Results 24 hrs Laboratory Tests Test 09/10/16 14:00 09/10/16 16:11 09/10/16 20:38 09/11/16 01:22 Blood Gas Specimen Source Blood arterial Arterial Blood Date Drawn 09/10/2016 3:20:34 PM Arterial Blood pH (Temp corrected) 7.288 *L Arterial Blood pCO2 (Temp correct) 52.2 H Arterial Blood pO2 (Temp corrected) 389.7 H Arterial Blood HCO3 24.4 Arterial Blood Base Excess -2.6 Arterial Blood Oxygen Saturation 99.6 Soy Test N/A Arterial Blood Gas Puncture Site LB Arterial Blood Carboxyhemoglobin 0.5 Arterial Blood Methemoglobin 0.2 Blood Gas A-a O2 Differential 271.1 H Oxyhemoglobin Percent 98.9 Total Hemoglobin 11.3 L Blood Gas Temperature 37.0 Blood Gas Modality MASK - NRB FiO2 100.0 Blood Gas Critical Value Read Back T VERÓNICA RN Blood Gas Notified Whom TM Blood Gas Notified Time 09/10/2016 3:28:06 PM Bedside Glucose 115 133 138 Test 09/11/16 04:51 09/11/16 05:00 09/11/16 05:20 09/11/16 08:33 Bedside Glucose 127 114 Blood Gas Specimen Source Blood arterial Arterial Blood Date Drawn 09/11/2016 5:30:38 AM Arterial Blood pH (Temp corrected) 7.351 Arterial Blood pCO2 (Temp correct) 41.9 Arterial Blood pO2 (Temp corrected) 68.7 L Arterial Blood HCO3 22.7 Arterial Blood Base Excess -2.8 Arterial Blood Oxygen Saturation 92.3 L Soy Test N/A Arterial Blood Gas Puncture Site LB Arterial Blood Carboxyhemoglobin 1.1 Arterial Blood Methemoglobin 0.2 Blood Gas A-a O2 Differential 161.1 H Oxyhemoglobin Percent 91.1 L Total Hemoglobin 11.4 L Blood Gas Temperature 37.0 Blood Gas Modality NASAL CANNULA FiO2 39.0 Blood Gas Notified Whom UP Blood Gas Notified Time 09/11/2016 5:35:02 AM White Blood Count 6.8 Red Blood Count 3.58 L Hemoglobin 10.7 L Hematocrit 31.9 L Mean Corpuscular Volume 89.1 Mean Corpuscular Hemoglobin 29.9 Mean Corpuscular Hemoglobin Concent 33.5 Red Cell Distribution Width 14.3 Platelet Count 224 Mean Platelet Volume 10.3 Neutrophils % 80.1 H Lymphocytes % 14.8 L Monocytes % 4.4 Eosinophils % 0.0 Basophils % 0.3 Nucleated Red Blood Cells % 0.0 Neutrophils # 5.5 Lymphocytes # 1.0 Monocytes # 0.3 Eosinophils # 0.0 Basophils # 0.0 Nucleated Red Blood Cells # 0.0 Sodium Level 133 L Potassium Level 4.6 Chloride Level 98 Carbon Dioxide Level 26 Anion Gap 14 Blood Urea Nitrogen 52 H Creatinine 7.85 H Glucose Level 135 Calcium Level 8.7 Vitamin B12 Level 516 Thyroid Stimulating Hormone (TSH) 0.368 L Medications Current Medications Acetaminophen/ Hydrocodone Bitart ([place] (5/325)) 1 tab Q6H PRN PO MODERATE PAIN LEVEL 4-6 Last administered on 09/09/16t 02:23; Admin Dose 1 TAB; Start at 17:30 Acetaminophen/ Hydrocodone Bitart ([place] (5/325)) 2 tab Q6H PRN PO SEVERE PAIN LEVEL 7-10; Start 09/07/16 at 17:30 Docusate Sodium (Colace) 100 mg Q12H PRN PO CONSTIPATION; Start 09/07/16 at 17: 30 Sodium Biphosphate/ Sodium Phosphate (Fleet Enema) 133 ml DAILY PRN [place] CONSTIPATION; Start 09/07/16 at 17:30 Famotidine (Pepcid Iv) 20 mg DAILY IV Last administered on 09/11/16 08:48; Admin Dose 20 MG; Start 09/08/16 at 09:00 Heparin Sodium (Porcine) (Heparin (5000 Units/0.5 ml)) 5,000 unit Q12 SC Last administered on 09/11/16 08:35; Admin Dose 5,000 UNIT; Start 09/07/16 at 21:00 Folic Acid (Folic Acid) 1 mg BID PO ; Start 09/07/16 at 21:00 Metoprolol Tartrate (Lopressor) 12.5 mg BID PO ; Start 09/07/16 at 23:00 Fenofibrate (Tricor) 48 mg QAM PO ; Start 09/08/16 at 09:00 Linagliptin (Tradjenta) 5 mg DAILY PO ; Start 09/07/16 at 18:00 Insulin Glargine (Lantus) 2 unit BID@08,20 SC Last administered on 09/11/16 08 :34; Admin Dose 2 UNIT; Start 09/07/16 at 20:00 Fish Oil (Fish Oil) 2,000 mg BID PO ; Start 09/07/16 at 21:00 Salmeterol Xinafoate/ Fluticasone (Advair 250/50 Diskus) 1 inh BID INH Last administered on 09/08/16 00:11; Admin Dose 1 INH; Start 09/07/16 at 23:00 Atorvastatin Calcium (Lipitor) 40 mg QHS PO ; Start 09/07/16 at 21:00 Gabapentin (Neurontin) 900 mg QHS PO ; Start 09/07/16 at 21:00 Miscellaneous Information 1 ea NOTE XX ; Start 09/07/16 at 18:00 Glucose (Glutose) 15 gm Q15M PRN PO DECREASED GLUCOSE; Start 09/07/16 at 18:00 Glucose (Glutose) 22.5 gm Q15M PRN PO DECREASED GLUCOSE; Start 09/07/16 at 18: 00 Dextrose (D50w Syringe) 25 ml Q15M PRN IV DECREASED GLUCOSE; Start 09/07/16 at 18:00 Dextrose (D50w Syringe) 50 ml Q15M PRN IV DECREASED GLUCOSE; Start 09/07/16 at 18:00 Glucagon (Glucagen) 1 mg Q15M PRN IM DECREASED GLUCOSE; Start 09/07/16 at 18:00 Glucose (Glutose) 15 gm Q15M PRN BUCCAL DECREASED GLUCOSE; Start 09/07/16 at 18 :00 Naloxone HCl (Narcan) 0.2 mg Q2M PRN IV DECREASED REPIRATORY RATE Last administered on 09/08/16 02:44; Admin Dose 0.2 MG; Start 09/08/16 at 02:30 Tramadol HCl 50 mg 50 mg Q8H PRN PO PAIN Last administered on 09/08/16 15:57; Admin Dose 50 MG; Start 09/08/16 at 16:00 Dextrose/Sodium Chloride 1,000 ml @ 50 mls/hr Q20H IV Last administered on 08:50; Admin Dose 50 MLS/HR; Start 09/08/16 at 21:30 Phenylephrine HCl/ Dextrose (Efraín-Syneph/D5W) 500 ml @ 75 mls/hr TITRATE IV ; Start 09/09/16 at 03:00 Insulin Aspart (Novolog Insulin Pen) NOVOLOG *MILD* ALGORI... Q4 SC ; Start at 05:00 Hydromorphone HCl (Dilaudid) 0.5 mg Q2H PRN IV PAIN Last administered on 11:23; Admin Dose 0.5 MG; Start 09/09/16 at 08:30 Methylprednisolone Sodium Succinate (Solu-Medrol) 10 mg QAM IV Last administered on 09/11/16 08:48; Admin Dose 10 MG; Start 09/10/16 at 11:30 Methylprednisolone Sodium Succinate 5 mg 5 mg QPM IV Last administered on 20:34; Admin Dose 5 MG; Start 09/10/16 at 21:00 Amiodarone HCl 900 mg/Dextrose 500 ml @ 16.66 mls/ hr Q24H IV Last administered on 09/10/16 16:20; Admin Dose 16.66 MLS/HR; Start 09/10/16 at 16: 00 Total Parenteral Nutrition (Tpn) 1,000 ml @ 40 mls/hr Q24H IV ; Start 09/11/16 at 16:00 Assessment/Plan Additional Assessment/Plan IMP: 1. Acute on chronic hypercapnic respiratory failure: multifactorial in etiology. Possible underlying OSH or COPD. Doubt significant [id number] diaphragmatic weakness 2. C-spine injury--high-risk intubation if needed. 3. s/p TAVR. Patient admitted with a fall resulting in spinal fracture without any neurological compromise. 4. End-stage renal disease, on hemodialysis. 5. Pulmonary sarcoidosis, patient on long-term prednisone use. 6. History of hypertension. 7. Afib with RVR 7. Coronary artery disease. Status post PTCA in the past. 8. CHF RECS: 1. Continue CS 2. Await PICC 3. Would avoid TPN is possible 4. May initiate PO's as tolerated, preferably following ST eval 5. CPT/BD's for LLL atelectasis 6. Titrate FiO2 to keep Spo@ 88-92% 7. Continue HD/UF Case d/w family 35 min cc time SAEED CERVANTES MD September 11, 2016 12:24
--- NOTE | 2016-09-11 13:11 | CONS ---
Date/Time of Note Date/Time of Note DATE: 09/11/16 TIME: 13:06 Assessment/Plan Assessment/Plan Chief Complaint/Hosp Course 1. ESRD on maintenance hemodialysis . Her CXR continues to show CHF; although , she is requiring les oxygen . I will order hemodialysis for tomorrow . 2. neck vertebrae fracture 3. respiratory failure 4. hypotension/ tachycardia . 5. A fib 6. I would hold off giving TPN until we get her out of CHF . Problems: Consultation Date/Type/Reason Admit Date/Time September 07, 2016 at 16:36 Initial Consult Date 09/08/16 Type of Consultation: renal Referring Provider: TOMER GARCIA MD 24 HR Interval Summary Free Text/Dictation Patient is awake and responsive . She is on less oxygen today . c/o headache . Exam/Review of Systems Vital Signs Vitals Vital Signs Date Time Temp Pulse Resp B/P Pulse Ox O2 Delivery O2 Flow Rate FiO2 09/11/16 12:00 98.4 91 16 94/56 99 Nasal Cannula 6.0 09/10/16 13:45 100 Intake and Output 09/10/16 09/10/16 09/11/16 15:00 23:00 07:00 Intake Total 400 ml 933.16 ml 533.28 ml Output Total 3800 ml 0 ml Balance 400 ml -2866.84 ml 533.28 ml Exam Constitutional: alert, frail, oriented Respiratory: clear to auscultation, diminished breath sounds Cardiovascular: edema, irregular rhythm, murmurs/extra sounds Gastrointestinal: soft Extremities: edema Results Result Diagram: 09/11/16 0520 09/11/16 0520 Results 24 hrs Laboratory Tests Test 09/10/16 14:00 09/10/16 16:11 09/10/16 20:38 09/11/16 01:22 Blood Gas Specimen Source Blood arterial Arterial Blood Date Drawn 09/10/2016 3:20:34 PM Arterial Blood pH (Temp corrected) 7.288 *L Arterial Blood pCO2 (Temp correct) 52.2 H Arterial Blood pO2 (Temp corrected) 389.7 H Arterial Blood HCO3 24.4 Arterial Blood Base Excess -2.6 Arterial Blood Oxygen Saturation 99.6 Soy Test N/A Arterial Blood Gas Puncture Site LB Arterial Blood Carboxyhemoglobin 0.5 Arterial Blood Methemoglobin 0.2 Blood Gas A-a O2 Differential 271.1 H Oxyhemoglobin Percent 98.9 Total Hemoglobin 11.3 L Blood Gas Temperature 37.0 Blood Gas Modality MASK - NRB FiO2 100.0 Blood Gas Critical Value Read Back Hitesh SANCHES RN Blood Gas Notified Whom TM Blood Gas Notified Time 09/10/2016 3:28:06 PM Bedside Glucose 115 133 138 Test 09/11/16 04:51 09/11/16 05:00 09/11/16 05:20 09/11/16 08:33 Bedside Glucose 127 114 Blood Gas Specimen Source Blood arterial Arterial Blood Date Drawn 09/11/2016 5:30:38 AM Arterial Blood pH (Temp corrected) 7.351 Arterial Blood pCO2 (Temp correct) 41.9 Arterial Blood pO2 (Temp corrected) 68.7 L Arterial Blood HCO3 22.7 Arterial Blood Base Excess -2.8 Arterial Blood Oxygen Saturation 92.3 L Soy Test N/A Arterial Blood Gas Puncture Site LB Arterial Blood Carboxyhemoglobin 1.1 Arterial Blood Methemoglobin 0.2 Blood Gas A-a O2 Differential 161.1 H Oxyhemoglobin Percent 91.1 L Total Hemoglobin 11.4 L Blood Gas Temperature 37.0 Blood Gas Modality NASAL CANNULA FiO2 39.0 Blood Gas Notified Whom UP Blood Gas Notified Time 09/11/2016 5:35:02 AM White Blood Count 6.8 Red Blood Count 3.58 L Hemoglobin 10.7 L Hematocrit 31.9 L Mean Corpuscular Volume 89.1 Mean Corpuscular Hemoglobin 29.9 Mean Corpuscular Hemoglobin Concent 33.5 Red Cell Distribution Width 14.3 Platelet Count 224 Mean Platelet Volume 10.3 Neutrophils % 80.1 H Lymphocytes % 14.8 L Monocytes % 4.4 Eosinophils % 0.0 Basophils % 0.3 Nucleated Red Blood Cells % 0.0 Neutrophils # 5.5 Lymphocytes # 1.0 Monocytes # 0.3 Eosinophils # 0.0 Basophils # 0.0 Nucleated Red Blood Cells # 0.0 Sodium Level 133 L Potassium Level 4.6 Chloride Level 98 Carbon Dioxide Level 26 Anion Gap 14 Blood Urea Nitrogen 52 H Creatinine 7.85 H Glucose Level 135 Calcium Level 8.7 Vitamin B12 Level 516 Thyroid Stimulating Hormone (TSH) 0.368 L Test 09/11/16 12:33 Bedside Glucose 136 Medications Medications Current Medications Acetaminophen/ Hydrocodone Bitart ([place] (5/325)) 1 tab Q6H PRN PO MODERATE PAIN LEVEL 4-6 Last administered on 09/09/16 02:23; Admin Dose 1 TAB; Start at 17:30 Acetaminophen/ Hydrocodone Bitart ([place] (5/325)) 2 tab Q6H PRN PO SEVERE PAIN LEVEL 7-10; Start 09/07/16 at 17:30 Docusate Sodium (Colace) 100 mg Q12H PRN PO CONSTIPATION; Start 09/07/16 at 17: 30 Sodium Biphosphate/ Sodium Phosphate (Fleet Enema) 133 ml DAILY PRN [place] CONSTIPATION; Start 09/07/16 at 17:30 Famotidine (Pepcid Iv) 20 mg DAILY IV Last administered on 09/11/16 08:48; Admin Dose 20 MG; Start 09/08/16 at 09:00 Heparin Sodium (Porcine) (Heparin (5000 Units/0.5 ml)) 5,000 unit Q12 SC Last administered on 09/11/16 08:35; Admin Dose 5,000 UNIT; Start 09/07/16 at 21:00 Folic Acid (Folic Acid) 1 mg BID PO ; Start 09/07/16 at 21:00 Metoprolol Tartrate (Lopressor) 12.5 mg BID PO ; Start 09/07/16 at 23:00 Fenofibrate (Tricor) 48 mg QAM PO ; Start 09/08/16 at 09:00 Linagliptin (Tradjenta) 5 mg DAILY PO ; Start 09/07/16 at 18:00 Insulin Glargine (Lantus) 2 unit BID@08,20 SC Last administered on 09/11/16 08 :34; Admin Dose 2 UNIT; Start 09/07/16 at 20:00 Fish Oil (Fish Oil) 2,000 mg BID PO ; Start 09/07/16 at 21:00 Salmeterol Xinafoate/ Fluticasone (Advair 250/50 Diskus) 1 inh BID INH Last administered on 09/08/16 00:11; Admin Dose 1 INH; Start 09/07/16 at 23:00 Atorvastatin Calcium (Lipitor) 40 mg QHS PO ; Start 09/07/16 at 21:00 Gabapentin (Neurontin) 900 mg QHS PO ; Start 09/07/16 at 21:00 Miscellaneous Information 1 ea NOTE XX ; Start 09/07/16 at 18:00 Glucose (Glutose) 15 gm Q15M PRN PO DECREASED GLUCOSE; Start 09/07/16 at 18:00 Glucose (Glutose) 22.5 gm Q15M PRN PO DECREASED GLUCOSE; Start 09/07/16 at 18: 00 Dextrose (D50w Syringe) 25 ml Q15M PRN IV DECREASED GLUCOSE; Start 09/07/16 at 18:00 Dextrose (D50w Syringe) 50 ml Q15M PRN IV DECREASED GLUCOSE; Start 09/07/16 at 18:00 Glucagon (Glucagen) 1 mg Q15M PRN IM DECREASED GLUCOSE; Start 09/07/16 at 18:00 Glucose (Glutose) 15 gm Q15M PRN BUCCAL DECREASED GLUCOSE; Start 09/07/16 at 18 :00 Naloxone HCl (Narcan) 0.2 mg Q2M PRN IV DECREASED REPIRATORY RATE Last administered on 09/08/16 02:44; Admin Dose 0.2 MG; Start 09/08/16 at 02:30 Tramadol HCl 50 mg 50 mg Q8H PRN PO PAIN Last administered on 09/08/16 15:57; Admin Dose 50 MG; Start 09/08/16 at 16:00 Dextrose/Sodium Chloride 1,000 ml @ 50 mls/hr Q20H IV Last administered on 08:50; Admin Dose 50 MLS/HR; Start 09/08/16 at 21:30 Phenylephrine HCl/ Dextrose (Efraín-Syneph/D5W) 500 ml @ 75 mls/hr TITRATE IV ; Start 09/09/16 at 03:00 Insulin Aspart (Novolog Insulin Pen) NOVOLOG *MILD* ALGORI... Q4 SC ; Start at 05:00 Hydromorphone HCl (Dilaudid) 0.5 mg Q2H PRN IV PAIN Last administered on 11:23; Admin Dose 0.5 MG; Start 09/09/16 at 08:30 Methylprednisolone Sodium Succinate (Solu-Medrol) 10 mg QAM IV Last administered on 09/11/16 08:48; Admin Dose 10 MG; Start 09/10/16 at 11:30 Methylprednisolone Sodium Succinate 5 mg 5 mg QPM IV Last administered on 20:34; Admin Dose 5 MG; Start 09/10/16 at 21:00 Amiodarone HCl 900 mg/Dextrose 500 ml @ 16.66 mls/ hr Q24H IV Last administered on 09/10/16t 16:20; Admin Dose 16.66 MLS/HR; Start 09/10/16 at 16: 00 Total Parenteral Nutrition (Tpn) 1,000 ml @ 40 mls/hr Q24H IV ; Start 09/11/16 at 16:00 FARIDA BARRERA MD September 11, 2016 13:11
[2016-09-11] MEDS: DEXTROSE 5%-0.45% NACL 1,000 ML IV SCH (13:57)
--- NOTE | 2016-09-11 15:27 | RADRPT ---
PROCEDURE: XR Chest. CLINICAL INDICATION: PICC line placement TECHNIQUE: Single frontal chest x-ray. COMPARISON: 08/22 FINDINGS: Left PICC line is in place with tip deep in the right atrium. There is cardiomegaly with improving pulmonary vascular congestion. There are small bilateral pleural effusions. There is no pneumothor ax. There is aortic atherosclerosis. Ascending aortic stent graft is in place. IMPRESSION: Left PICC line with tip deep in the right atrium. Recommend retraction by 7-8 cm. RPTAT: QQ .Thanh Palmer MD, Date Time Electronically viewed and signed by .Thanh Palmer MD, on 09/11/2016 15:27 .O/
--- NOTE | 2016-09-11 15:29 | RADRPT ---
PROCEDURE: XR Chest. CLINICAL INDICATION: PICC line placement TECHNIQUE: Frontal chest x-ray images were obtained. COMPARISON: 09/03/2016 at 03:06 p.m. FINDINGS: Left PICC line is in place with tip overlying the left innominate. There is cardiomegaly with mild pulmonary vascular congestion. There are low lung volumes with bibasilar atelectasis and small pleu ral effusions. There is no pneumothorax. Ascending aorta stent graft is in place. There is aortic atherosclerosis. The osseous structures are intact. A call report was made to PICC line nurse at 09/11/2016 3:28:23 PM following completion of the examin ation. IMPRESSION: Left PICC line with tip overlying the left innominate vein. RPTAT: QQ .Thanh Palmer MD, Date Time Electronically viewed and signed by .Thanh Palmer MD, on 09/11/2016 15:28 .O/
--- NOTE | 2016-09-11 15:31 | RADRPT ---
PROCEDURE: XR Chest. CLINICAL INDICATION: PICC line placement TECHNIQUE: Frontal chest x-ray images were obtained. COMPARISON: Chest x-ray 09/03/2016 at 02:47 p.m. FINDINGS: Left PICC line is in place with tip deep in the right atrium. There is cardiomegaly with central pu lmonary congestion and interstitial pulmonary edema. There are low lung volumes with bibasilar atel ectasis and small pleural effusions. There is aortic atherosclerosis. Ascending aortic stent graft is again noted. IMPRESSION: Left PICC line with tip remains in the right atrium. RPTAT: QQ .Thanh Palmer MD, MD Date Time Electronically viewed and signed by .Thanh Palmer MD, on 09/11/2016 15:30 .O/
[2016-09-11] MEDS ORDERED: TPN 1,000 ML IV SCH (16:00)
[2016-09-11] MEDS: AMIODARONE 900 MG in DEXTROSE 5% 482 ML IV SCH (16:08)
[2016-09-11] MEDS ORDERED: HEPARIN (10 UNITS/ML) 5ML SYG IV ONE (17:00)
[2016-09-11] MEDS: ATORVASTATIN 40 MG TAB PO SCH (21:00)
[2016-09-11] MEDS: GABAPENTIN 300 MG CAP PO SCH (21:00)
--- NOTE | 2016-09-11 21:40 | PN ---
Date/Time of Note Date/Time of Note DATE: 09/11/16 TIME: 21:28 Assessment/Plan VTE Prophylaxis VTE Prophylaxis Intervention: heparin Lines/Catheters IV Catheter Type (from [facility]): PICC Line Central line still needed: Yes Urinary Cath still in place: No Assessment/Plan Problems: (1) Abnormal MRI, spinal cord Status: Acute Comment: Per neurology likely motion artifact and does not want to treat. Will monitor. (2) Dens fracture Status: Acute Comment: No upcoming surgery. Hard c-collar for 6 weeks. Qualifiers: Encounter type: initial encounter Fracture type: closed Qualified Code: S12.100A - Dens fracture, closed, initial encounter (3) Atrial fibrillation Status: Chronic Comment: On amiodarone drip per cardiology Qualifiers: Atrial fibrillation type: chronic Qualified Code: I48.2 - Chronic atrial fibrillation (4) Diastolic dysfunction Status: Chronic Comment: In sig. CHF per cardiology and renal. Attempting to remove fluid w/ dialysis (5) ESRD (end stage renal disease) on dialysis Status: Chronic Comment: On HD per renal (6) Sarcoidosis Status: Chronic Comment: On IV medrol to treat (7) COPD (chronic obstructive pulmonary disease) Status: Chronic Comment: On low-doses of IV medrol and O2 has been decreased from BiPAP to nasal canula. Pt. no longer w/ severe hypercapnea on today's blood gas. Defer to pulmonary. Qualifiers: COPD type: emphysema Emphysema type: panlobular Qualified Code: J43.1 - Panlobular emphysema (8) Type 2 diabetes mellitus with diabetic chronic kidney disease Status: Chronic Comment: Glucose controlled despite IV medrol Assessment/Plan despite nutritional needs, nephrology and cardiology feel pt. will not tolerate additional 40 mL/hr of IVF of TPN. Will monitor for now and hopefully ST will clear her to take po. Pt. did get PICC line today but this cannot take TPN due to way it was placed. Subjective 24 Hr Interval Summary Constitutional: no complaints Respiratory: no complaints Cardiovascular: no complaints Gastrointestinal: no complaints Genitourinary: no complaints Musculoskeletal: no complaints Neurologic: no complaints Exam/Review of Systems Vital Signs Vitals VS - Last 72 Hours, by Label Date Time Temp Pulse Resp B/P Pulse Ox O2 Delivery O2 Flow Rate FiO2 09/11/16 20:00 17 128/62 98 Nasal Cannula 6.0 09/11/16 20:00 99 09/11/16 19:00 98.4 95 18 114/68 99 Nasal Cannula 6.0 09/11/16 18:10 94 18 96/71 98 Nasal Cannula 6.0 09/11/16 17:00 98.2 97 17 124/48 99 Nasal Cannula 6.0 09/11/16 16:00 91 09/11/16 14:00 107 14 113/86 92 Nasal Cannula 6.0 09/11/16 13:00 106 18 108/52 98 Nasal Cannula 6.0 09/11/16 12:00 100 09/11/16 12:00 98.4 91 16 94/56 99 Nasal Cannula 6.0 09/11/16 11:00 114 15 110/86 98 Nasal Cannula 6.0 09/11/16 10:22 6.0 09/11/16 10:00 95 21 117/46 99 Nasal Cannula 6.0 09/11/16 09:00 106 17 111/37 97 Nasal Cannula 6.0 09/11/16 08:00 98.4 109 17 119/81 97 Nasal Cannula 6.0 09/11/16 08:00 Nasal Cannula 6.0 09/11/16 07:00 97 15 105/57 100 Nasal Cannula 6.0 09/11/16 06:00 110 23 95/59 100 Nasal Cannula 6.0 09/11/16 05:00 111 22 116/92 95 Nasal Cannula 6.0 09/11/16 04:00 98.6 102 19 110/57 86 Nasal Cannula 6.0 09/11/16 03:00 102 20 104/59 96 Nasal Cannula 6.0 09/11/16 02:00 115 19 88/74 91 Nasal Cannula 6.0 09/11/16 01:45 6.0 09/11/16 01:30 116 22 137/69 91 Nasal Cannula 6.0 09/11/16 01:00 102 18 136/58 92 Nasal Cannula 6.0 09/11/16 00:00 105 09/11/16 00:00 98.7 114 16 140/119 94 Nasal Cannula 6.0 09/10/16 23:00 107 16 116/47 98 Nasal Cannula 6.0 09/10/16 22:00 104 21 117/67 99 Nasal Cannula 6.0 09/10/16 22:00 6.0 09/10/16 21:00 111 16 114/54 98 Nasal Cannula 6.0 09/10/16 20:00 Nasal Cannula 6.0 09/10/16 20:00 110 09/10/16 20:00 98.8 109 26 98/39 98 Nasal Cannula 6.0 09/10/16 19:04 120 18 09/10/16 19:00 112 20 128/55 100 Nasal Cannula 6.0 09/10/16 18:40 112 09/10/16 18:25 119 09/10/16 18:10 121 09/10/16 18:00 114 22 85/57 100 Nasal Cannula 6.0 09/10/16 17:42 121 09/10/16 17:25 124 09/10/16 17:01 91 6.0 09/10/16 17:01 114 09/10/16 17:00 110 19 134/122 94 Nasal Cannula 6.0 09/10/16 16:45 112 17 09/10/16 16:45 122 09/10/16 16:00 98.9 117 16 138/63 90 Nasal Cannula 6.0 09/10/16 16:00 112 09/10/16 15:45 97 6.0 09/10/16 15:43 Simple Mask 6.0 09/10/16 15:00 125 17 141/65 100 Non Rebreather 09/10/16 14:00 115 28 112/51 100 Non Rebreather 09/10/16 13:45 100 15.0 100 09/10/16 13:45 Non Rebreather 15.0 09/10/16 13:30 78 6.0 09/10/16 13:15 96 98 30 09/10/16 13:00 105 31 98/60 97 BIPAP 09/10/16 12:00 98.6 102 19 100/66 98 BIPAP 09/10/16 12:00 101 09/10/16 11:00 114 17 98/44 97 BIPAP 09/10/16 10:55 112 94 30 09/10/16 10:00 99 23 90/35 93 BIPAP 09/10/16 09:10 97 95 30 09/10/16 09:00 114 20 105/54 99 BIPAP 09/10/16 08:00 98.6 100 23 82/51 91 BIPAP 09/10/16 08:00 106 09/10/16 07:10 108 99 30 09/10/16 07:00 94 20 105/44 97 BIPAP 09/10/16 06:00 94 20 103/46 96 BIPAP 09/10/16 05:23 97 100 30 09/10/16 05:00 99 20 106/47 97 BIPAP 09/10/16 04:00 102 09/10/16 04:00 98.6 108 26 85/63 92 BIPAP 09/10/16 03:03 98 97 30 09/10/16 03:00 92 20 96/37 94 BIPAP 09/10/16 02:00 94 20 90/44 96 BIPAP 09/10/16 01:30 95 99 30 09/10/16 01:00 101 20 116/34 97 BIPAP 09/10/16 00:00 91 09/10/16 00:00 98.9 96 20 95/37 97 BIPAP 09/09/16 23:27 100 99 30 09/09/16 23:00 91 20 108/38 96 BIPAP 09/09/16 22:00 95 20 98/46 97 BIPAP 09/09/16 21:45 89 97 30 09/09/16 21:00 101 18 90/47 92 BIPAP 09/09/16 20:00 95 09/09/16 20:00 98.2 96 15 97/38 93 BIPAP 09/09/16 19:38 98 97 30 09/09/16 19:00 89 20 94/33 93 BIPAP 09/09/16 17:25 112 92 30 09/09/16 17:00 92 20 117/41 94 BIPAP 09/09/16 16:30 98 19 97/52 94 09/09/16 16:00 97.9 94 11 104/52 94 BIPAP 09/09/16 16:00 99 09/09/16 15:30 91 18 95/39 96 09/09/16 15:09 102 97 30 09/09/16 15:00 90 13 113/42 97 BIPAP 09/09/16 14:30 91 18 110/34 99 09/09/16 14:00 93 18 93/51 99 BIPAP 09/09/16 13:30 88 9 95/51 96 09/09/16 13:11 91 96 30 09/09/16 13:00 91 12 91/30 96 BIPAP 09/09/16 12:30 92 23 102/28 95 09/09/16 12:00 91 09/09/16 12:00 98.1 100 18 91/32 98 BIPAP 09/09/16 11:30 98 20 114/45 95 09/09/16 11:20 94 100 30 09/09/16 11:00 88 21 99/57 100 BIPAP 09/09/16 10:30 88 15 120/31 100 09/09/16 10:00 100 20 108/29 96 BIPAP 09/09/16 09:36 96 100 30 09/09/16 09:30 96 28 103/89 100 09/09/16 09:05 102 09/09/16 09:00 98 16 100 BIPAP 09/09/16 08:30 97 20 88/32 98 09/09/16 08:00 99 09/09/16 08:00 97.9 92 22 99 BIPAP 09/09/16 07:33 98 99 40 09/09/16 07:30 102 19 09/09/16 07:30 98 23 104/52 96 09/09/16 07:15 100 09/09/16 07:00 100 09/09/16 07:00 99 19 130/101 100 BIPAP 09/09/16 06:45 96 09/09/16 06:30 105 09/09/16 06:29 111/58 BIPAP 09/09/16 06:15 101 09/09/16 06:00 103 09/09/16 05:45 102 09/09/16 05:30 101 09/09/16 05:30 105 20 108/62 BIPAP 09/09/16 05:20 107 98 40 09/09/16 05:15 108 20 110/62 BIPAP 09/09/16 05:15 98 09/09/16 05:00 101 09/09/16 05:00 107 20 97 09/09/16 04:45 100 09/09/16 04:30 100 19 09/09/16 04:30 100 09/09/16 04:00 98.9 114 21 107/60 94 BIPAP 09/09/16 04:00 119 09/09/16 03:32 103 96 40 09/09/16 03:30 103 23 93/47 95 BIPAP 09/09/16 03:00 95 21 98/72 93 BIPAP 09/09/16 02:30 102 20 114/49 95 BIPAP 09/09/16 02:00 99 22 114/49 97 BIPAP 09/09/16 01:45 99 16 111/54 96 BIPAP 09/09/16 01:30 103 22 105/53 95 BIPAP 09/09/16 01:15 105 21 103/38 93 BIPAP 09/09/16 01:00 120 96 40 09/09/16 01:00 101 17 93/53 96 BIPAP 09/09/16 00:45 104 25 121/108 93 BIPAP 09/09/16 00:30 110 18 105/40 97 BIPAP 09/09/16 00:15 110 21 101/53 94 BIPAP 09/09/16 00:00 105 09/09/16 00:00 99.5 124 26 102/50 96 BIPAP 09/08/16 23:45 116 18 89/48 95 BIPAP 09/08/16 23:30 111 94 40 09/08/16 23:30 114 16 91/38 93 BIPAP 09/08/16 23:15 117 18 104/56 94 BIPAP 09/08/16 23:05 115 96 40 09/08/16 23:00 105 19 86/52 95 BIPAP 09/08/16 23:00 10.0 09/08/16 22:45 113 18 76/45 94 BIPAP 09/08/16 22:30 126 16 86/65 94 BIPAP 09/08/16 22:15 111 19 91/51 96 BIPAP 09/08/16 22:00 110 24 83/39 97 BIPAP 09/08/16 21:33 129 97 40 09/08/16 21:30 125 25 105/40 99 Mask Vital Signs Date Time Temp Pulse Resp B/P Pulse Ox O2 Delivery O2 Flow Rate FiO2 09/11/16 20:00 17 128/62 98 Nasal Cannula 6.0 09/11/16 20:00 99 09/11/16 19:00 98.4 09/10/16 13:45 100 Intake and Output 09/10/16 09/10/16 09/11/16 14:59 22:59 06:59 Intake Total 400 ml 916.50 ml 533.28 ml Output Total 0 ml 3800 ml Balance 400 ml -2883.50 ml 533.28 ml Exam Constitutional: alert, frail, obese Psych: nl mood/affect, no complaints Respiratory: diminished breath sounds (still diminished breath sounds on L but improved vs. yesterdat), No crackles/rales (no crackles heard on L today. ) Cardiovascular: irregular rhythm, No edema, No murmurs/extra sounds, No rub Gastrointestinal: bowel sounds, nl liver, spleen, non-tender, soft, No mass, No rebound or guarding Musculoskeletal: joint tenderness (hyperalgesia BLE) Extremities: No clubbing, No cyanosis, No edema 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: DRAMATIC [employer] HISTORIAN II-XII intact, nl mental status, nl speech, nl strength Additional Comments Bedside Glucose - 72 Hours Test 09/08/16 22:30 09/09/16 05:20 09/09/16 09:08 09/09/16 12:43 Bedside Glucose 110mg/dL (70-220) 118mg/dL (70-220) 140mg/dL (70-220) 131mg/dL (70-220) Test 09/09/16 16:31 09/09/16 20:35 09/10/16 00:49 09/10/16 06:01 Bedside Glucose 127mg/dL (70-220) 105mg/dL (70-220) 113mg/dL (70-220) 98mg/dL (70-220) Test 09/10/16 08:42 09/10/16 12:18 09/10/16 16:11 09/10/16 20:38 Bedside Glucose 97mg/dL (70-220) 91mg/dL (70-220) 115mg/dL (70-220) 133mg/dL (70-220) Test 09/11/16 01:22 09/11/16 04:51 09/11/16 08:33 09/11/16 12:33 Bedside Glucose 138mg/dL (70-220) 127mg/dL (70-220) 114mg/dL (70-220) 136mg/dL (70-220) Test 09/11/16 16:08 09/11/16 20:19 Bedside Glucose 137mg/dL (70-220) 116mg/dL (70-220) Results Result Diagram: 09/11/16 0520 09/11/16 0520 Results 24 hrs Laboratory Tests Test 09/11/16 01:22 09/11/16 04:51 09/11/16 05:00 09/11/16 05:20 Bedside Glucose 138 127 Blood Gas Specimen Source Blood arterial Arterial Blood Date Drawn 09/11/2016 5:30:38 AM Arterial Blood pH (Temp corrected) 7.351 Arterial Blood pCO2 (Temp correct) 41.9 Arterial Blood pO2 (Temp corrected) 68.7 L Arterial Blood HCO3 22.7 Arterial Blood Base Excess -2.8 Arterial Blood Oxygen Saturation 92.3 L Soy Test N/A Arterial Blood Gas Puncture Site LB Arterial Blood Carboxyhemoglobin 1.1 Arterial Blood Methemoglobin 0.2 Blood Gas A-a O2 Differential 161.1 H Oxyhemoglobin Percent 91.1 L Total Hemoglobin 11.4 L Blood Gas Temperature 37.0 Blood Gas Modality NASAL CANNULA FiO2 39.0 Blood Gas Notified Whom UP Blood Gas Notified Time 09/11/2016 5:35:02 AM White Blood Count 6.8 Red Blood Count 3.58 L Hemoglobin 10.7 L Hematocrit 31.9 L Mean Corpuscular Volume 89.1 Mean Corpuscular Hemoglobin 29.9 Mean Corpuscular Hemoglobin Concent 33.5 Red Cell Distribution Width 14.3 Platelet Count 224 Mean Platelet Volume 10.3 Neutrophils % 80.1 H Lymphocytes % 14.8 L Monocytes % 4.4 Eosinophils % 0.0 Basophils % 0.3 Nucleated Red Blood Cells % 0.0 Neutrophils # 5.5 Lymphocytes # 1.0 Monocytes # 0.3 Eosinophils # 0.0 Basophils # 0.0 Nucleated Red Blood Cells # 0.0 Sodium Level 133 L Potassium Level 4.6 Chloride Level 98 Carbon Dioxide Level 26 Anion Gap 14 Blood Urea Nitrogen 52 H Creatinine 7.85 H Glucose Level 135 Calcium Level 8.7 Vitamin B12 Level 516 Thyroid Stimulating Hormone (TSH) 0.368 L Test 09/11/16 08:33 09/11/16 12:33 09/11/16 16:08 09/11/16 20:19 Bedside Glucose 114 136 137 116 Medications Medications Current Medications Acetaminophen/ Hydrocodone Bitart ([place] (5/325)) 1 tab Q6H PRN PO MODERATE PAIN LEVEL 4-6 Last administered on 09/09/16t 02:23; Admin Dose 1 TAB; Start at 17:30 Acetaminophen/ Hydrocodone Bitart ([place] (5/325)) 2 tab Q6H PRN PO SEVERE PAIN LEVEL 7-10; Start 09/07/16 at 17:30 Docusate Sodium (Colace) 100 mg Q12H PRN PO CONSTIPATION; Start 09/07/16 at 17: 30 Sodium Biphosphate/ Sodium Phosphate (Fleet Enema) 133 ml DAILY PRN [place] CONSTIPATION; Start 09/07/16 at 17:30 Famotidine (Pepcid Iv) 20 mg DAILY IV Last administered on 09/11/16 08:48; Admin Dose 20 MG; Start 09/08/16 at 09:00 Heparin Sodium (Porcine) (Heparin (5000 Units/0.5 ml)) 5,000 unit Q12 SC Last administered on 09/11/16 08:35; Admin Dose 5,000 UNIT; Start 09/07/16 at 21:00 Folic Acid (Folic Acid) 1 mg BID PO ; Start 09/07/16 at 21:00 Metoprolol Tartrate (Lopressor) 12.5 mg BID PO ; Start 09/07/16 at 23:00 Fenofibrate (Tricor) 48 mg QAM PO ; Start 09/08/16 at 09:00 Linagliptin (Tradjenta) 5 mg DAILY PO ; Start 09/07/16 at 18:00 Insulin Glargine (Lantus) 2 unit BID@08,20 SC Last administered on 09/11/16 20 :24; Admin Dose 2 UNIT; Start 09/07/16 at 20:00 Fish Oil (Fish Oil) 2,000 mg BID PO ; Start 09/07/16 at 21:00 Salmeterol Xinafoate/ Fluticasone (Advair 250/50 Diskus) 1 inh BID INH Last administered on 09/08/16 00:11; Admin Dose 1 INH; Start 09/07/16 at 23:00 Atorvastatin Calcium (Lipitor) 40 mg QHS PO ; Start 09/07/16 at 21:00 Gabapentin (Neurontin) 900 mg QHS PO ; Start 09/07/16 at 21:00 Miscellaneous Information 1 ea NOTE XX ; Start 09/07/16 at 18:00 Glucose (Glutose) 15 gm Q15M PRN PO DECREASED GLUCOSE; Start 09/07/16 at 18:00 Glucose (Glutose) 22.5 gm Q15M PRN PO DECREASED GLUCOSE; Start 09/07/16 at 18: 00 Dextrose (D50w Syringe) 25 ml Q15M PRN IV DECREASED GLUCOSE; Start 09/07/16 at 18:00 Dextrose (D50w Syringe) 50 ml Q15M PRN IV DECREASED GLUCOSE; Start 09/07/16 at 18:00 Glucagon (Glucagen) 1 mg Q15M PRN IM DECREASED GLUCOSE; Start 09/07/16 at 18:00 Glucose (Glutose) 15 gm Q15M PRN BUCCAL DECREASED GLUCOSE; Start 09/07/16 at 18 :00 Naloxone HCl (Narcan) 0.2 mg Q2M PRN IV DECREASED REPIRATORY RATE Last administered on 09/08/16 02:44; Admin Dose 0.2 MG; Start 09/08/16 at 02:30 Tramadol HCl 50 mg 50 mg Q8H PRN PO PAIN Last administered on 09/08/16 15:57; Admin Dose 50 MG; Start 09/08/16 at 16:00 Phenylephrine HCl/ Dextrose (Efraín-Syneph/D5W) 500 ml @ 75 mls/hr TITRATE IV ; Start 09/09/16 at 03:00 Insulin Aspart (Novolog Insulin Pen) NOVOLOG *MILD* ALGORI... Q4 SC ; Start at 05:00 Hydromorphone HCl (Dilaudid) 0.5 mg Q2H PRN IV PAIN Last administered on 13:57; Admin Dose 0.5 MG; Start 09/09/16 at 08:30 Methylprednisolone Sodium Succinate (Solu-Medrol) 10 mg QAM IV Last administered on 09/11/16 08:48; Admin Dose 10 MG; Start 09/10/16 at 11:30 Methylprednisolone Sodium Succinate 5 mg 5 mg QPM IV Last administered on 20:34; Admin Dose 5 MG; Start 09/10/16 at 21:00 Amiodarone HCl 900 mg/Dextrose 500 ml @ 16.66 mls/ hr Q24H IV Last administered on 09/11/16 16:08; Admin Dose 16.66 MLS/HR; Start 09/10/16 at 16: 00 Total Parenteral Nutrition 1,000 ml @ 40 mls/hr Q24H IV ; Start 09/11/16 at 16: 00; Status Future Hold Dextrose/Sodium Chloride (D5-1/2ns) 1,000 ml @ 50 mls/hr Q20H IV Last administered on 09/11/16t 13:57; Admin Dose 50 MLS/HR; Start 09/11/16 at 13:30 SOBEIDA ENRIQUEZ MD September 11, 2016 21:40
[2016-09-12] VITALS (45 sets, daily range): BP systolic 84–118; BP diastolic 29–98; PULSE 76–108; RESP 14–27
[2016-09-12] MEDS: INSULIN ASPART [NOVOLOG] 3 ML PEN SC SCH ×6 (01:00→21:00)
[2016-09-12] MEDS: HYDROmorphONE 1 MG/ML SYG IV PRN (01:31)
[2016-09-12] MEDS: SALMETEROL/FLUTICASONE 250/50 INHA INH SCH ×3 (01:39→21:27)
[2016-09-12 05:32] LABS: AADO2 Arterial 25.6 mmHg (7.0-24.0); Arterial Base Excess -2.7 mmol/L (-3.0-3); Arterial COHb 0.1 % (0.0-3.0); Arterial Fraction of Oxyhgb 96.6 % (93.0-99.0); Arterial HCO3 24.3 mmol/L (22.0-26.0); Arterial MetHb 0.3 % (0.0-1.5); Arterial Total Hemglobin 11.3 g/dl (12.0-18.0); MODE NASAL CANNULA
[2016-09-12 06:21] LABS: ADD SCAN DIFF NO
[2016-09-12 06:41] LABS: ABNORMAL IP MESSAGE 1; BASOPHILS % 0.1 % (0.0-2.0); EOSINOPHILS % 0.1 % (0.0-7.0); HEMOGLOBIN 10.4 g/dl (12.0-16.0); LYMPHOCYTES # 0.6 10^3/ul (0.8-2.9); LYMPHOCYTES % 7.9 % (15.0-51.0); MEAN CORPUSCULAR HEMOGLOBIN 29.7 pg (29.0-33.0); MEAN CORPUSCULAR HGB CONC 33.5 g/dl (32.0-37.0); MEAN CORPUSCULAR VOLUME 88.6 fl (82.0-101.0); MEAN PLATELET VOLUME 10.8 fl (7.4-10.4); MONOCYTE # 0.4 10^3/ul (0.3-0.9); MONOCYTES % 5.2 % (0.0-11.0); NEUTROPHIL # 6.1 10^3/ul (1.6-7.5); NEUTROPHILS % 86.1 % (39.0-77.0); PLATELET COUNT 221 10^3/UL (140-415); RED CELL DISTRIBUTION WIDTH 14.4 % (11.5-14.5); WHITE BLOOD COUNT 7.1 10^3/ul (4.8-10.8)
[2016-09-12 06:52] LABS: ALBUMIN 3.1 g/dl (3.3-4.9)
[2016-09-12 06:53] LABS: POTASSIUM 4.6 mmol/L (3.5-5.1)
[2016-09-12 06:55] LABS: ALBUMIN/GLOBULIN RATIO 0.81; TOTAL PROTEIN 6.9 g/dl (6.1-8.1)
[2016-09-12 06:56] LABS: CALCIUM 8.5 mg/dl (8.4-10.2)
[2016-09-12] MEDS: SEVELAMER CARBONATE 0.8 GM PKT PO SCH ×3 (07:05→16:21)
[2016-09-12 07:08] LABS: MAGNESIUM 1.8 mg/dl (1.7-2.5); PHOSPHORUS 10.9 mg/dl (2.5-4.9)
[2016-09-12 07:09] LABS: CREATININE 9.32 mg/dl (0.44-1.00)
--- NOTE | 2016-09-12 08:41 | PN ---
Date/Time of Note Date/Time of Note DATE: 09/12/16 TIME: 08:25 Assessment/Plan VTE Prophylaxis VTE Prophylaxis Intervention: SCD's Lines/Catheters IV Catheter Type (from Nrs): PICC Line Central line still needed: Yes Urinary Cath still in place: No Assessment/Plan Problems: (1) Atrial fibrillation Status: Chronic Comment: On amiodarone drip with fair rate control. Qualifiers: Atrial fibrillation type: chronic Qualified Code: I48.2 - Chronic atrial fibrillation (2) COPD (chronic obstructive pulmonary disease) Status: Chronic Comment: Noted on therapeutics and pulmonary is consulting. Resp status is fair to poor Qualifiers: COPD type: emphysema Emphysema type: panlobular Qualified Code: J43.1 - Panlobular emphysema (3) Sarcoidosis Status: Chronic Comment: Noted and on steroids though this is not an active issue. (4) ESRD (end stage renal disease) on dialysis Status: Chronic Comment: Remains on HD. This confounds therapeutics and we still have nutritional issues to manage. (5) Diabetes mellitus type 2 in obese Status: Chronic Comment: Stable control (6) Hypertension associated with chronic kidney disease due to type 2 diabetes mellitus Status: Chronic Comment: BP is hanging low and meds on hold (7) Obstructive sleep apnea Status: Chronic Comment: Nocturnal BiPAP as much as she will allow which is limited. (she never liked this therapeutic) (8) Hyperlipidemia Status: Chronic Comment: Noted statin in regimen though as of this time not taking PO. Swallow evaluation is happening now Qualifiers: Hyperlipidemia type: pure hypercholesterolemia Qualified Code: E78.00 - Pure hypercholesterolemia (9) Status post transcatheter aortic valve replacement (TAVR) using bioprosthesis Status: Acute Comment: Stable (10) Left bundle branch block (LBBB) Status: Chronic Comment: Noted (11) Diastolic dysfunction Status: Chronic Comment: NOted (12) Dens fracture Status: Acute Comment: This is the cornell factor. She is marginally tolerating fitted C-collar. Pain is a major issue but therapeutics limited due to resp and BP. Nutrition is also an issue. Regardless the probability of getting adequate P.O. is not promising. Will make decision in next days. If can get n utrition, pain control and resp control with continued HD. Then ECF placement for 2 months to allow to heal. No apparent c-spine cord issue. Qualifiers: Encounter type: initial encounter Fracture type: closed Qualified Code: S12.100A - Dens fracture, closed, initial encounter Subjective 24 Hr Interval Summary Free Text/Dictation Patient notes continued pain. No other complaints. Constitutional: no complaints Respiratory: no complaints Cardiovascular: no complaints Gastrointestinal: no complaints Exam/Review of Systems Vital Signs Vitals Vital Signs Date Time Temp Pulse Resp B/P Pulse Ox O2 Delivery O2 Flow Rate FiO2 09/12/16 07:00 101 21 84/72 100 BIPAP 09/12/16 05:56 30 09/12/16 04:02 98.6 09/12/16 01:47 4.0 Intake and Output 09/11/16 09/11/16 09/12/16 15:00 23:00 07:00 Intake Total 416.62 ml 483.28 ml 533.28 ml Balance 416.62 ml 483.28 ml 533.28 ml Exam Constitutional: alert, oriented Neck: non-tender, supple Respiratory: clear to auscultation, normal air movement Cardiovascular: nl pulses, regular rate and rhythm Results Result Diagram: 09/12/167 09/12/16 0447 Results 24 hrs Laboratory Tests Test 09/11/16 08:33 09/11/16 12:33 09/11/16 16:08 09/11/16 20:19 Bedside Glucose 114 136 137 116 Test 09/11/16 21:27 09/12/16 01:13 09/12/16 04:47 09/12/16 04:59 Bedside Glucose 121 126 147 White Blood Count 7.1 Red Blood Count 3.50 L Hemoglobin 10.4 L Hematocrit 31.0 L Mean Corpuscular Volume 88.6 Mean Corpuscular Hemoglobin 29.7 Mean Corpuscular Hemoglobin Concent 33.5 Red Cell Distribution Width 14.4 Platelet Count 221 Mean Platelet Volume 10.8 H Neutrophils % 86.1 H Lymphocytes % 7.9 L Monocytes % 5.2 Eosinophils % 0.1 Basophils % 0.1 Nucleated Red Blood Cells % 0.0 Neutrophils # 6.1 Lymphocytes # 0.6 L Monocytes # 0.4 Eosinophils # 0.0 Basophils # 0.0 Nucleated Red Blood Cells # 0.0 Sodium Level 130 L Potassium Level 4.6 Chloride Level 96 L Carbon Dioxide Level 25 Anion Gap 14 Blood Urea Nitrogen 69 H Creatinine 9.32 H Glucose Level 136 Calcium Level 8.5 Phosphorus Level 10.9 #H Magnesium Level 1.8 Total Bilirubin 0.0 L Direct Bilirubin 0.00 Indirect Bilirubin 0.0 Aspartate Amino Transf (AST/SGOT) 14 L Alanine Aminotransferase (ALT/SGPT) 29 Alkaline Phosphatase 44 Total Protein 6.9 Albumin 3.1 L Globulin 3.80 H Albumin/Globulin Ratio 0.81 Test 09/12/16 05:00 Blood Gas Specimen Source Blood arterial Arterial Blood Date Drawn 09/12/2016 5:20:27 AM Arterial Blood pH (Temp corrected) 7.285 *L Arterial Blood pCO2 (Temp correct) 52.4 H Arterial Blood pO2 (Temp corrected) 104.9 H Arterial Blood HCO3 24.3 Arterial Blood Base Excess -2.7 Arterial Blood Oxygen Saturation 97.0 Soy Test N/A Arterial Blood Gas Puncture Site LB Arterial Blood Carboxyhemoglobin 0.1 Arterial Blood Methemoglobin 0.3 Blood Gas A-a O2 Differential 25.6 H Oxyhemoglobin Percent 96.6 Total Hemoglobin 11.3 L Blood Gas Temperature 37.0 Blood Gas Modality NASAL CANNULA FiO2 27.0 Blood Gas Critical Value Read Back Mari MUÑOZ RN Blood Gas Notified Whom UP Blood Gas Notified Time 09/12/2016 5:32:20 AM Medications Medications Current Medications Acetaminophen/ Hydrocodone Bitart ([place] (5/325)) 1 tab Q6H PRN PO MODERATE PAIN LEVEL 4-6 Last administered on 09/09/16 02:23; Admin Dose 1 TAB; Start at 17:30 Acetaminophen/ Hydrocodone Bitart ([place] (5/325)) 2 tab Q6H PRN PO SEVERE PAIN LEVEL 7-10; Start 09/07/16 at 17:30 Docusate Sodium (Colace) 100 mg Q12H PRN PO CONSTIPATION; Start 09/07/16 at 17: 30 Sodium Biphosphate/ Sodium Phosphate (Fleet Enema) 133 ml DAILY PRN [place] CONSTIPATION; Start 09/07/16 at 17:30 Famotidine (Pepcid Iv) 20 mg DAILY IV Last administered on 09/11/16 08:48; Admin Dose 20 MG; Start 09/08/16 at 09:00 Heparin Sodium (Porcine) (Heparin (5000 Units/0.5 ml)) 5,000 unit Q12 SC Last administered on 09/11/16 21:30; Admin Dose 5,000 UNIT; Start 09/07/16 at 21:00 Folic Acid (Folic Acid) 1 mg BID PO ; Start 09/07/16 at 21:00 Metoprolol Tartrate (Lopressor) 12.5 mg BID PO ; Start 09/07/16 at 23:00 Fenofibrate (Tricor) 48 mg QAM PO ; Start 09/08/16 at 09:00 Linagliptin (Tradjenta) 5 mg DAILY PO ; Start 09/07/16 at 18:00 Insulin Glargine (Lantus) 2 unit BID@08,20 SC Last administered on 09/11/16 20 :24; Admin Dose 2 UNIT; Start 09/07/16 at 20:00 Fish Oil (Fish Oil) 2,000 mg BID PO ; Start 09/07/16 at 21:00 Salmeterol Xinafoate/ Fluticasone (Advair 250/50 Diskus) 1 inh BID INH Last administered on 09/12/16 01:39; Admin Dose 1 INH; Start 09/07/16 at 23:00 Atorvastatin Calcium (Lipitor) 40 mg QHS PO ; Start 09/07/16 at 21:00 Gabapentin (Neurontin) 900 mg QHS PO ; Start 09/07/16 at 21:00 Miscellaneous Information 1 ea NOTE XX ; Start 09/07/16 at 18:00 Glucose (Glutose) 15 gm Q15M PRN PO DECREASED GLUCOSE; Start 09/07/16 at 18:00 Glucose (Glutose) 22.5 gm Q15M PRN PO DECREASED GLUCOSE; Start 09/07/16 at 18: 00 Dextrose (D50w Syringe) 25 ml Q15M PRN IV DECREASED GLUCOSE; Start 09/07/16 at 18:00 Dextrose (D50w Syringe) 50 ml Q15M PRN IV DECREASED GLUCOSE; Start 09/07/16 at 18:00 Glucagon (Glucagen) 1 mg Q15M PRN IM DECREASED GLUCOSE; Start 09/07/16 at 18:00 Glucose (Glutose) 15 gm Q15M PRN BUCCAL DECREASED GLUCOSE; Start 09/07/16 at 18 :00 Naloxone HCl (Narcan) 0.2 mg Q2M PRN IV DECREASED REPIRATORY RATE Last administered on 09/08/16 02:44; Admin Dose 0.2 MG; Start 09/08/16 at 02:30 Tramadol HCl 50 mg 50 mg Q8H PRN PO PAIN Last administered on 09/08/16 15:57; Admin Dose 50 MG; Start 09/08/16 at 16:00 Phenylephrine HCl/ Dextrose (Efraín-Syneph/D5W) 500 ml @ 75 mls/hr TITRATE IV ; Start 09/09/16 at 03:00 Insulin Aspart (Novolog Insulin Pen) NOVOLOG *MILD* ALGORI... Q4 SC Last administered on 09/12/16 05:06; Admin Dose 1 UNIT; Start 09/09/16 at 05:00 Hydromorphone HCl (Dilaudid) 0.5 mg Q2H PRN IV PAIN Last administered on 01:31; Admin Dose 0.5 MG; Start 09/09/16 at 08:30 Methylprednisolone Sodium Succinate (Solu-Medrol) 10 mg QAM IV Last administered on 09/11/16 08:48; Admin Dose 10 MG; Start 09/10/16 at 11:30 Methylprednisolone Sodium Succinate 5 mg 5 mg QPM IV Last administered on 21:25; Admin Dose 5 MG; Start 09/10/16 at 21:00 Amiodarone HCl 900 mg/Dextrose 500 ml @ 16.66 mls/ hr Q24H IV Last administered on 09/11/16 16:08; Admin Dose 16.66 MLS/HR; Start 09/10/16 at 16: 00 Total Parenteral Nutrition 1,000 ml @ 40 mls/hr Q24H IV ; Start 09/11/16 at 16: 00; Status Future Hold Dextrose/Sodium Chloride (D5-1/2ns) 1,000 ml @ 50 mls/hr Q20H IV Last administered on 09/11/16 13:57; Admin Dose 50 MLS/HR; Start 09/11/16 at 13:30 TOMER GARCIA MD September 12, 2016 08:35
[2016-09-12] MEDS: FOLIC ACID 1 MG TAB PO SCH ×2 (08:43→21:25)
[2016-09-12] MEDS: METOPROLOL 25 MG TAB PO SCH ×2 (08:43→21:00)
[2016-09-12] MEDS: HYDROCODONE/APAP (5/325) TAB PO PRN ×3 (08:44→19:57)
[2016-09-12] MEDS: METHYLPREDNISOLONE 40 MG INJ IV SCH ×2 (08:45→21:25)
[2016-09-12] MEDS: FENOFIBRATE 48 MG TAB PO SCH (08:45)
[2016-09-12] MEDS: FISH OIL 1,000 MG CAP PO SCH ×3 (08:45→21:25)
[2016-09-12] MEDS: ACETAMINOPHEN 500 MG TAB PO SCH ×3 (09:00→21:25)
[2016-09-12] MEDS: LINAGLIPTIN 5 MG TABLET PO SCH (09:00)
[2016-09-12] MEDS: GABAPENTIN 100 MG CAP PO SCH ×2 (09:01→14:25)
[2016-09-12] MEDS: FAMOTIDINE 20 MG INJ IV SCH (09:07)
[2016-09-12] MEDS: INSULIN GLARGINE [LANtus] 3 ML PEN SC SCH ×2 (09:10→20:05)
[2016-09-12] MEDS: HEPARIN 5,000 UNIT/0.5 ML VIAL SC SCH ×2 (09:10→21:35)
[2016-09-12] MEDS: DEXTROSE 5%-0.45% NACL 1,000 ML IV SCH (11:09)
--- NOTE | 2016-09-12 11:37 | CONS ---
Date/Time of Note Date/Time of Note DATE: 09/12/16 TIME: 11:31 Consult Date/Type/Reason Admit Date/Time September 07, 2016 at 16:36 Initial Consult Date 09/08/16 Type of Consultation: Pulm/CCM Ordering Provider: TOMER GARCIA MD Subjective No events. Remains off BiPAP. Swallow eval completed. PICC placed. Objective Vital Signs Date Time Temp Pulse Resp B/P Pulse Ox O2 Delivery O2 Flow Rate FiO2 09/12/16 10:00 85 17 87/37 100 Nasal Cannula 09/12/16 08:00 98.2 09/12/16 05:56 30 09/12/16 01:47 4.0 Intake and Output 09/11/16 09/11/16 09/12/16 15:00 23:00 07:00 Intake Total 416.62 ml 483.28 ml 533.28 ml Balance 416.62 ml 483.28 ml 533.28 ml Exam HEENT: Neck supple; no JVD; no LAD; c-collar in place CVS: Irreg irreg S1 and S2, 2/2 systolic murmur CHEST: Diminished breath sounds L > R ABD: Soft, NT, + BS EXT: No c/c; + edema Results/Medications Result Diagram: 09/12/1644609/12/16446 Results 24 hrs Laboratory Tests Test 09/11/16 12:33 09/11/16 16:08 09/11/16 20:19 09/11/16 21:27 Bedside Glucose 136 137 116 121 Test 09/12/16 01:13 09/12/16 04:47 09/12/16 04:59 09/12/16 05:00 Bedside Glucose 126 147 White Blood Count 7.1 Red Blood Count 3.50 L Hemoglobin 10.4 L Hematocrit 31.0 L Mean Corpuscular Volume 88.6 Mean Corpuscular Hemoglobin 29.7 Mean Corpuscular Hemoglobin Concent 33.5 Red Cell Distribution Width 14.4 Platelet Count 221 Mean Platelet Volume 10.8 H Neutrophils % 86.1 H Lymphocytes % 7.9 L Monocytes % 5.2 Eosinophils % 0.1 Basophils % 0.1 Nucleated Red Blood Cells % 0.0 Neutrophils # 6.1 Lymphocytes # 0.6 L Monocytes # 0.4 Eosinophils # 0.0 Basophils # 0.0 Nucleated Red Blood Cells # 0.0 Sodium Level 130 L Potassium Level 4.6 Chloride Level 96 L Carbon Dioxide Level 25 Anion Gap 14 Blood Urea Nitrogen 69 H Creatinine 9.32 H Glucose Level 136 Calcium Level 8.5 Phosphorus Level 10.9 #H Magnesium Level 1.8 Total Bilirubin 0.0 L Direct Bilirubin 0.00 Indirect Bilirubin 0.0 Aspartate Amino Transf (AST/SGOT) 14 L Alanine Aminotransferase (ALT/SGPT) 29 Alkaline Phosphatase 44 Total Protein 6.9 Albumin 3.1 L Globulin 3.80 H Albumin/Globulin Ratio 0.81 Blood Gas Specimen Source Blood arterial Arterial Blood Date Drawn 09/12/2016 5:20:27 AM Arterial Blood pH (Temp corrected) 7.285 *L Arterial Blood pCO2 (Temp correct) 52.4 H Arterial Blood pO2 (Temp corrected) 104.9 H Arterial Blood HCO3 24.3 Arterial Blood Base Excess -2.7 Arterial Blood Oxygen Saturation 97.0 Soy Test N/A Arterial Blood Gas Puncture Site LB Arterial Blood Carboxyhemoglobin 0.1 Arterial Blood Methemoglobin 0.3 Blood Gas A-a O2 Differential 25.6 H Oxyhemoglobin Percent 96.6 Total Hemoglobin 11.3 L Blood Gas Temperature 37.0 Blood Gas Modality NASAL CANNULA FiO2 27.0 Blood Gas Critical Value Read Back Mari MUÑOZ RN Blood Gas Notified Whom UP Blood Gas Notified Time 09/12/2016 5:32:20 AM Test 09/12/16 09:06 Bedside Glucose 147 Medications Current Medications Acetaminophen/ Hydrocodone Bitart ([place] (5/325)) 1 tab Q6H PRN PO MODERATE PAIN LEVEL 4-6 Last administered on 09/12/16 08:44; Admin Dose 1 TAB; Start at 17:30 Acetaminophen/ Hydrocodone Bitart ([place] (5/325)) 2 tab Q6H PRN PO SEVERE PAIN LEVEL 7-10; Start 09/07/16 at 17:30 Docusate Sodium (Colace) 100 mg Q12H PRN PO CONSTIPATION; Start 09/07/16 at 17: 30 Sodium Biphosphate/ Sodium Phosphate (Fleet Enema) 133 ml DAILY PRN [place] CONSTIPATION; Start 09/07/16 at 17:30 Famotidine (Pepcid Iv) 20 mg DAILY IV Last administered on 09/12/16 09:07; Admin Dose 20 MG; Start 09/08/16 at 09:00 Heparin Sodium (Porcine) (Heparin (5000 Units/0.5 ml)) 5,000 unit Q12 SC Last administered on 09/12/16 09:10; Admin Dose 5,000 UNIT; Start 09/07/16 at 21:00 Folic Acid (Folic Acid) 1 mg BID PO Last administered on 09/12/16 08:43; Admin Dose 1 MG; Start 09/07/16 at 21:00 Metoprolol Tartrate (Lopressor) 12.5 mg BID PO Last administered on 09/12/16 08:43; Admin Dose 12.5 MG; Start 09/07/16 at 23:00 Fenofibrate (Tricor) 48 mg QAM PO Last administered on 09/12/16 08:45; Admin Dose 48 MG; Start 09/08/16 at 09:00 Linagliptin (Tradjenta) 5 mg DAILY PO Last administered on 09/12/16 09:00; Admin Dose 5 MG; Start 09/07/16 at 18:00 Insulin Glargine (Lantus) 2 unit BID@08,20 SC Last administered on 09/12/16 09 :10; Admin Dose 2 UNIT; Start 09/07/16 at 20:00 Fish Oil (Fish Oil) 2,000 mg BID PO ; Start 09/07/16 at 21:00 Salmeterol Xinafoate/ Fluticasone (Advair 250/50 Diskus) 1 inh BID INH Last administered on 09/12/16 08:47; Admin Dose 1 INH; Start 09/07/16 at 23:00 Atorvastatin Calcium (Lipitor) 40 mg QHS PO ; Start 09/07/16 at 21:00 Gabapentin (Neurontin) 900 mg QHS PO ; Start 09/07/16 at 21:00 Miscellaneous Information 1 ea NOTE XX ; Start 09/07/16 at 18:00 Glucose (Glutose) 15 gm Q15M PRN PO DECREASED GLUCOSE; Start 09/07/16 at 18:00 Glucose (Glutose) 22.5 gm Q15M PRN PO DECREASED GLUCOSE; Start 09/07/16 at 18: 00 Dextrose (D50w Syringe) 25 ml Q15M PRN IV DECREASED GLUCOSE; Start 09/07/16 at 18:00 Dextrose (D50w Syringe) 50 ml Q15M PRN IV DECREASED GLUCOSE; Start 09/07/16 at 18:00 Glucagon (Glucagen) 1 mg Q15M PRN IM DECREASED GLUCOSE; Start 09/07/16 at 18:00 Glucose (Glutose) 15 gm Q15M PRN BUCCAL DECREASED GLUCOSE; Start 09/07/16 at 18 :00 Naloxone HCl (Narcan) 0.2 mg Q2M PRN IV DECREASED REPIRATORY RATE Last administered on 09/08/16 02:44; Admin Dose 0.2 MG; Start 09/08/16 at 02:30 Tramadol HCl 50 mg 50 mg Q8H PRN PO PAIN Last administered on 09/08/16 15:57; Admin Dose 50 MG; Start 09/08/16 at 16:00 Phenylephrine HCl/ Dextrose (Efraín-Syneph/D5W) 500 ml @ 75 mls/hr TITRATE IV ; Start 09/09/16 at 03:00 Insulin Aspart (Novolog Insulin Pen) NOVOLOG *MILD* ALGORI... Q4 SC Last administered on 09/12/16 09:09; Admin Dose 1 UNIT; Start 09/09/16 at 05:00 Hydromorphone HCl (Dilaudid) 0.5 mg Q2H PRN IV PAIN Last administered on 01:31; Admin Dose 0.5 MG; Start 09/09/16 at 08:30 Methylprednisolone Sodium Succinate (Solu-Medrol) 10 mg QAM IV Last administered on 09/12/16 08:45; Admin Dose 10 MG; Start 09/10/16 at 11:30 Methylprednisolone Sodium Succinate 5 mg 5 mg QPM IV Last administered on 21:25; Admin Dose 5 MG; Start 09/10/16 at 21:00 Amiodarone HCl 900 mg/Dextrose 500 ml @ 16.66 mls/ hr Q24H IV Last administered on 09/11/16 16:08; Admin Dose 16.66 MLS/HR; Start 09/10/16 at 16: 00 Total Parenteral Nutrition 1,000 ml @ 40 mls/hr Q24H IV ; Start 09/11/16 at 16: 00; Status Future Hold Dextrose/Sodium Chloride (D5-1/2ns) 1,000 ml @ 50 mls/hr Q20H IV Last administered on 09/12/16 11:09; Admin Dose 50 MLS/HR; Start 09/11/16 at 13:30 Gabapentin (Neurontin) 200 mg TID PO Last administered on 09/12/16 09:01; Admin Dose 200 MG; Start 09/12/16 at 09:00 Acetaminophen (Tylenol Tab) 500 mg Q6H PO ; Start 09/12/16 at 09:00; Stop at 08:59 Assessment/Plan Additional Assessment/Plan IMP: 1. Acute on chronic hypercapnic respiratory failure: multifactorial in etiology. Possible underlying OSH or COPD. Doubt significant [id number] diaphragmatic weakness 2. C-spine injury--high-risk intubation if needed. 3. s/p TAVR. Patient admitted with a fall resulting in spinal fracture without any neurological compromise. 4. End-stage renal disease, on hemodialysis. 5. Pulmonary sarcoidosis, patient on long-term prednisone use. 6. History of hypertension. 7. Afib with RVR 7. Coronary artery disease. Status post PTCA in the past. 8. CHF RECS: 1. Continue CS 2. PICC is in okay position in the left brachiocephalic vein 3. Avoid TPN 4. May initiate PO's as tolerated 5. CPT/BD's for LLL atelectasis 6. Titrate FiO2 to keep SpO2 at 88-92% 7. Continue HD/UF 8. Monitor blood gases closely Case d/w family 35 min cc time SAEED CERVANTES MD September 12, 2016 11:37
--- NOTE | 2016-09-12 12:29 | RADRPT ---
PROCEDURE: XR Chest. CLINICAL INDICATION: chest pain TECHNIQUE: Single AP view of the chest were obtained COMPARISON: 09/11/2016 FINDINGS: The heart is stable and prominently enlarged. There is a stent seen overlying the mediastinum uncha nged. The pulmonary vasculature are enlarged bilaterally. The aorta demonstrates atherosclerotic ca lcifications. There there is a mild retrocardiac opacity which is stable with a likely small left e ffusion unchanged. Mild right basilar atelectasis is present. Degenerative changes are seen within t he thoracic spine. There is no acute osseous abnormality. A central line catheter is seen with terminates at the SVC. IMPRESSION: There is stable cardiomegaly and mild vascular congestion with the presence of a left lower lung op acity and small left effusion. Mild right basilar atelectasis is also unchanged. Stent is seen overlying the mediastinum. Left central line catheter is unchanged. RPTAT: AA .Jina Chan MD, Date Time Electronically viewed and signed by .Jina Chan MD, MD on 09/12/2016 12:29 .Marlene/
--- NOTE | 2016-09-12 13:50 | CONS ---
Date/Time of Note Date/Time of Note DATE: 09/12/16 TIME: 13:44 Consult Date/Type/Reason Admit Date/Time September 07, 2016 at 16:36 Initial Consult Date 09/08/16 Type of Consultation: neurology Ordering Provider: TOMER GARCIA MD Subjective no acute events, being dialyzed now Objective Vital Signs Date Time Temp Pulse Resp B/P Pulse Ox O2 Delivery O2 Flow Rate FiO2 09/12/16 10:00 85 17 87/37 100 Nasal Cannula 09/12/16 08:00 98.2 09/12/16 05:56 30 09/12/16 01:47 4.0 Intake and Output 09/11/16 09/11/16 09/12/16 15:00 23:00 07:00 Intake Total 416.62 ml 483.28 ml 533.28 ml Balance 416.62 ml 483.28 ml 533.28 ml Results/Medications Result Diagram: 09/12/16 0447 09/12/16 0447 Results 24 hrs Laboratory Tests Test 09/11/16 16:08 09/11/16 20:19 09/11/16 21:27 09/12/16 01:13 Bedside Glucose 137 116 121 126 Test 09/12/16 04:45 09/12/16 04:47 09/12/16 04:59 09/12/16 05:00 Prealbumin 14.9 L White Blood Count 7.1 Red Blood Count 3.50 L Hemoglobin 10.4 L Hematocrit 31.0 L Mean Corpuscular Volume 88.6 Mean Corpuscular Hemoglobin 29.7 Mean Corpuscular Hemoglobin Concent 33.5 Red Cell Distribution Width 14.4 Platelet Count 221 Mean Platelet Volume 10.8 H Neutrophils % 86.1 H Lymphocytes % 7.9 L Monocytes % 5.2 Eosinophils % 0.1 Basophils % 0.1 Nucleated Red Blood Cells % 0.0 Neutrophils # 6.1 Lymphocytes # 0.6 L Monocytes # 0.4 Eosinophils # 0.0 Basophils # 0.0 Nucleated Red Blood Cells # 0.0 Sodium Level 130 L Potassium Level 4.6 Chloride Level 96 L Carbon Dioxide Level 25 Anion Gap 14 Blood Urea Nitrogen 69 H Creatinine 9.32 H Glucose Level 136 Calcium Level 8.5 Phosphorus Level 10.9 #H Magnesium Level 1.8 Total Bilirubin 0.0 L Direct Bilirubin 0.00 Indirect Bilirubin 0.0 Aspartate Amino Transf (AST/SGOT) 14 L Alanine Aminotransferase (ALT/SGPT) 29 Alkaline Phosphatase 44 Total Protein 6.9 Albumin 3.1 L Globulin 3.80 H Albumin/Globulin Ratio 0.81 Bedside Glucose 147 Blood Gas Specimen Source Blood arterial Arterial Blood Date Drawn 09/12/2016 5:20:27 AM Arterial Blood pH (Temp corrected) 7.285 *L Arterial Blood pCO2 (Temp correct) 52.4 H Arterial Blood pO2 (Temp corrected) 104.9 H Arterial Blood HCO3 24.3 Arterial Blood Base Excess -2.7 Arterial Blood Oxygen Saturation 97.0 Soy Test N/A Arterial Blood Gas Puncture Site LB Arterial Blood Carboxyhemoglobin 0.1 Arterial Blood Methemoglobin 0.3 Blood Gas A-a O2 Differential 25.6 H Oxyhemoglobin Percent 96.6 Total Hemoglobin 11.3 L Blood Gas Temperature 37.0 Blood Gas Modality NASAL CANNULA FiO2 27.0 Blood Gas Critical Value Read Back Mari MUÑOZ RN Blood Gas Notified Whom UP Blood Gas Notified Time 09/12/2016 5:32:20 AM Test 09/12/16 09:06 Bedside Glucose 147 Medications Current Medications Acetaminophen/ Hydrocodone Bitart ([place] (5/325)) 1 tab Q6H PRN PO MODERATE PAIN LEVEL 4-6 Last administered on 09/12/16 08:44; Admin Dose 1 TAB; Start at 17:30 Acetaminophen/ Hydrocodone Bitart ([place] (5/325)) 2 tab Q6H PRN PO SEVERE PAIN LEVEL 7-10; Start 09/07/16 at 17:30 Docusate Sodium (Colace) 100 mg Q12H PRN PO CONSTIPATION; Start 09/07/16 at 17: 30 Sodium Biphosphate/ Sodium Phosphate (Fleet Enema) 133 ml DAILY PRN [place] CONSTIPATION; Start 09/07/16 at 17:30 Famotidine (Pepcid Iv) 20 mg DAILY IV Last administered on 09/12/16 09:07; Admin Dose 20 MG; Start 09/08/16 at 09:00 Heparin Sodium (Porcine) (Heparin (5000 Units/0.5 ml)) 5,000 unit Q12 SC Last administered on 09/12/16 09:10; Admin Dose 5,000 UNIT; Start 09/07/16 at 21:00 Folic Acid (Folic Acid) 1 mg BID PO Last administered on 09/12/16 08:43; Admin Dose 1 MG; Start 09/07/16 at 21:00 Metoprolol Tartrate (Lopressor) 12.5 mg BID PO Last administered on 09/12/16 08:43; Admin Dose 12.5 MG; Start 09/07/16 at 23:00 Fenofibrate (Tricor) 48 mg QAM PO Last administered on 09/12/16 08:45; Admin Dose 48 MG; Start 09/08/16 at 09:00 Linagliptin (Tradjenta) 5 mg DAILY PO Last administered on 09/12/16 09:00; Admin Dose 5 MG; Start 09/07/16 at 18:00 Insulin Glargine (Lantus) 2 unit BID@08,20 SC Last administered on 09/12/16 09 :10; Admin Dose 2 UNIT; Start 09/07/16 at 20:00 Fish Oil (Fish Oil) 2,000 mg BID PO ; Start 09/07/16 at 21:00 Salmeterol Xinafoate/ Fluticasone (Advair 250/50 Diskus) 1 inh BID INH Last administered on 09/12/16 08:47; Admin Dose 1 INH; Start 09/07/16 at 23:00 Atorvastatin Calcium (Lipitor) 40 mg QHS PO ; Start 09/07/16 at 21:00 Gabapentin (Neurontin) 900 mg QHS PO ; Start 09/07/16 at 21:00 Miscellaneous Information 1 ea NOTE XX ; Start 09/07/16 at 18:00 Glucose (Glutose) 15 gm Q15M PRN PO DECREASED GLUCOSE; Start 09/07/16 at 18:00 Glucose (Glutose) 22.5 gm Q15M PRN PO DECREASED GLUCOSE; Start 09/07/16 at 18: 00 Dextrose (D50w Syringe) 25 ml Q15M PRN IV DECREASED GLUCOSE; Start 09/07/16 at 18:00 Dextrose (D50w Syringe) 50 ml Q15M PRN IV DECREASED GLUCOSE; Start 09/07/16 at 18:00 Glucagon (Glucagen) 1 mg Q15M PRN IM DECREASED GLUCOSE; Start 09/07/16 at 18:00 Glucose (Glutose) 15 gm Q15M PRN BUCCAL DECREASED GLUCOSE; Start 09/07/16 at 18 :00 Naloxone HCl (Narcan) 0.2 mg Q2M PRN IV DECREASED REPIRATORY RATE Last administered on 09/08/16 02:44; Admin Dose 0.2 MG; Start 09/08/16 at 02:30 Tramadol HCl 50 mg 50 mg Q8H PRN PO PAIN Last administered on 09/08/16 15:57; Admin Dose 50 MG; Start 09/08/16 at 16:00 Phenylephrine HCl/ Dextrose (Efraín-Syneph/D5W) 500 ml @ 75 mls/hr TITRATE IV ; Start 09/09/16 at 03:00 Insulin Aspart (Novolog Insulin Pen) NOVOLOG *MILD* ALGORI... Q4 SC Last administered on 09/12/16 09:09; Admin Dose 1 UNIT; Start 09/09/16 at 05:00 Hydromorphone HCl (Dilaudid) 0.5 mg Q2H PRN IV PAIN Last administered on 01:31; Admin Dose 0.5 MG; Start 09/09/16 at 08:30 Methylprednisolone Sodium Succinate (Solu-Medrol) 10 mg QAM IV Last administered on 09/12/16 08:45; Admin Dose 10 MG; Start 09/10/16 at 11:30 Methylprednisolone Sodium Succinate 5 mg 5 mg QPM IV Last administered on 21:25; Admin Dose 5 MG; Start 09/10/16 at 21:00 Amiodarone HCl 900 mg/Dextrose 500 ml @ 16.66 mls/ hr Q24H IV Last administered on 09/11/16 16:08; Admin Dose 16.66 MLS/HR; Start 09/10/16 at 16: 00 Total Parenteral Nutrition 1,000 ml @ 40 mls/hr Q24H IV ; Start 09/11/16 at 16: 00; Status Future Hold Dextrose/Sodium Chloride (D5-1/2ns) 1,000 ml @ 50 mls/hr Q20H IV Last administered on 09/12/16 11:09; Admin Dose 50 MLS/HR; Start 09/11/16 at 13:30 Gabapentin (Neurontin) 200 mg TID PO Last administered on 09/12/16 09:01; Admin Dose 200 MG; Start 09/12/16 at 09:00 Acetaminophen (Tylenol Tab) 500 mg Q6H PO ; Start 09/12/16 at 09:00; Stop at 08:59 Assessment/Plan Chief Complaint/Hosp Course PHYSICAL EXAMINATION: GENERAL: She is not in acute distress, lying in bed. HEENT: Normocephalic, had a cervical collar. LUNGS: Scattered crackles. CARDIAC: Irregular rate, irregular rhythm. ABDOMEN: Soft, nontender. EXTREMITIES: No cyanosis, clubbing or edema. The patient is being dialyzed currently. She is slightly lethargic, easily arousable by voice. Looks bilaterally. Oriented x2. Fluent speech. Follows commands. Present response to visual threats bilaterally. Pupils fixed at about 2 mm on the left and 3 mm on the right. Extraocular movements intact without nystagmus. Symmetrical face. Preserved facial strength and sensation. Tongue is in midline. Motor strength examination is limited because of pain. She has history of painful polyneuropathy, is very sensitive on her feet and hands. Hypersensitive feet, hands to touch. The patient was able to move her extremities at least 3/5, less so LE 3-/5, limited by pain symmetrically. Deep tendon reflexes 2+ upper extremities, absent in lower extremities. Upgoing toes bilaterally. Coordination seems to be preserved, at least in the left upper extremity. No tremor is seen. IMPRESSION: Status post incidental fall with C2 fracture in patient with multiple medical problems including sarcoidosis and end-stage renal disease, diabetes, coronary artery disease. The patient was on chronic prednisone use. Neurosurgeon evaluated the patient suggested to continue C-collar. He feels that describes on MRI of the cervical spine cord changes in the posterior cervical cord are not related to compression or trauma. I reviewed the MRI and at least to me the images are of relatively poor quality and with some movement artifact. The patient has no history of multiple sclerosis or any demyelinating illness. Normal B12. Even if she does have some posterior cord cervical signal changes, I do not think that for those changes she should be treated with high-dose steroids or any steroid treatment at all. Painful polyneuropathy. Continue current treatment. restart Gabapentin. Problems: RODRIGUE TRISTAN MD September 12, 2016 13:50
--- NOTE | 2016-09-12 16:01 | CONS ---
Date/Time of Note Date/Time of Note DATE: 09/12/16 TIME: 15:52 Assessment/Plan Assessment/Plan Chief Complaint/Hosp Course 1. ESRD on maintenance hemodialysis . Her CXR continues to show CHF; although , she is requiring less oxygen . She had hemodialysis treatment today and 3 liters were removed . 2. neck , C2 vertebrae fracture 3. respiratory failure , seems better 4. hypotension/ tachycardia . 5. A fib 6. She passed a swallowing study today and can start to take PO . . Problems: Consultation Date/Type/Reason Admit Date/Time September 07, 2016 at 16:36 Initial Consult Date 09/08/16 Type of Consultation: neurology Referring Provider: TOMER GARCIA MD 24 HR Interval Summary Free Text/Dictation She just finished a hemodialysis treatment . She is in the ICU . She passed a swallowing study .c/o a headache Exam/Review of Systems Vital Signs Vitals Vital Signs Date Time Temp Pulse Resp B/P Pulse Ox O2 Delivery O2 Flow Rate FiO2 09/12/16 15:00 95 16 114/59 100 Nasal Cannula 09/12/16 12:00 97.8 09/12/16 05:56 30 09/12/16 01:47 4.0 Intake and Output 09/11/16 09/11/16 09/12/16 15:00 23:00 07:00 Intake Total 416.62 ml 483.28 ml 533.28 ml Balance 416.62 ml 483.28 ml 533.28 ml Exam Constitutional: alert Neck: nuchal rigidity Respiratory: clear to auscultation Cardiovascular: irregular rhythm Gastrointestinal: soft Extremities: edema Results Result Diagram: 09/12/16 0447 09/12/16 0447 Results 24 hrs Laboratory Tests Test 09/11/16 16:08 09/11/16 20:19 09/11/16 21:27 09/12/16 01:13 Bedside Glucose 137 116 121 126 Test 09/12/16 04:45 09/12/16 04:47 09/12/16 04:59 09/12/16 05:00 Prealbumin 14.9 L White Blood Count 7.1 Red Blood Count 3.50 L Hemoglobin 10.4 L Hematocrit 31.0 L Mean Corpuscular Volume 88.6 Mean Corpuscular Hemoglobin 29.7 Mean Corpuscular Hemoglobin Concent 33.5 Red Cell Distribution Width 14.4 Platelet Count 221 Mean Platelet Volume 10.8 H Neutrophils % 86.1 H Lymphocytes % 7.9 L Monocytes % 5.2 Eosinophils % 0.1 Basophils % 0.1 Nucleated Red Blood Cells % 0.0 Neutrophils # 6.1 Lymphocytes # 0.6 L Monocytes # 0.4 Eosinophils # 0.0 Basophils # 0.0 Nucleated Red Blood Cells # 0.0 Sodium Level 130 L Potassium Level 4.6 Chloride Level 96 L Carbon Dioxide Level 25 Anion Gap 14 Blood Urea Nitrogen 69 H Creatinine 9.32 H Glucose Level 136 Calcium Level 8.5 Phosphorus Level 10.9 #H Magnesium Level 1.8 Total Bilirubin 0.0 L Direct Bilirubin 0.00 Indirect Bilirubin 0.0 Aspartate Amino Transf (AST/SGOT) 14 L Alanine Aminotransferase (ALT/SGPT) 29 Alkaline Phosphatase 44 Total Protein 6.9 Albumin 3.1 L Globulin 3.80 H Albumin/Globulin Ratio 0.81 Bedside Glucose 147 Blood Gas Specimen Source Blood arterial Arterial Blood Date Drawn 09/12/2016 5:20:27 AM Arterial Blood pH (Temp corrected) 7.285 *L Arterial Blood pCO2 (Temp correct) 52.4 H Arterial Blood pO2 (Temp corrected) 104.9 H Arterial Blood HCO3 24.3 Arterial Blood Base Excess -2.7 Arterial Blood Oxygen Saturation 97.0 Soy Test N/A Arterial Blood Gas Puncture Site LB Arterial Blood Carboxyhemoglobin 0.1 Arterial Blood Methemoglobin 0.3 Blood Gas A-a O2 Differential 25.6 H Oxyhemoglobin Percent 96.6 Total Hemoglobin 11.3 L Blood Gas Temperature 37.0 Blood Gas Modality NASAL CANNULA FiO2 27.0 Blood Gas Critical Value Read Back Mari MUÑOZ RN Blood Gas Notified Whom UP Blood Gas Notified Time 09/12/2016 5:32:20 AM Test 09/12/16 09:06 09/12/16 14:05 Bedside Glucose 147 166 Medications Medications Current Medications Acetaminophen/ Hydrocodone Bitart ([place] (5/325)) 1 tab Q6H PRN PO MODERATE PAIN LEVEL 4-6 Last administered on 09/12/16t 14:27; Admin Dose 1 TAB; Start at 17:30 Acetaminophen/ Hydrocodone Bitart ([place] (5/325)) 2 tab Q6H PRN PO SEVERE PAIN LEVEL 7-10; Start 09/07/16 at 17:30 Docusate Sodium (Colace) 100 mg Q12H PRN PO CONSTIPATION; Start 09/07/16 at 17: 30 Sodium Biphosphate/ Sodium Phosphate (Fleet Enema) 133 ml DAILY PRN [place] CONSTIPATION; Start 09/07/16 at 17:30 Famotidine (Pepcid Iv) 20 mg DAILY IV Last administered on 09/12/16 09:07; Admin Dose 20 MG; Start 09/08/16 at 09:00 Heparin Sodium (Porcine) (Heparin (5000 Units/0.5 ml)) 5,000 unit Q12 SC Last administered on 09/12/16 09:10; Admin Dose 5,000 UNIT; Start 09/07/16 at 21:00 Folic Acid (Folic Acid) 1 mg BID PO Last administered on 09/12/16 08:43; Admin Dose 1 MG; Start 09/07/16 at 21:00 Metoprolol Tartrate (Lopressor) 12.5 mg BID PO Last administered on 09/12/16 08:43; Admin Dose 12.5 MG; Start 09/07/16 at 23:00 Fenofibrate (Tricor) 48 mg QAM PO Last administered on 09/12/16 08:45; Admin Dose 48 MG; Start 09/08/16 at 09:00 Linagliptin (Tradjenta) 5 mg DAILY PO Last administered on 09/12/16 09:00; Admin Dose 5 MG; Start 09/07/16 at 18:00 Insulin Glargine (Lantus) 2 unit BID@08,20 SC Last administered on 09/12/16 09 :10; Admin Dose 2 UNIT; Start 09/07/16 at 20:00 Fish Oil (Fish Oil) 2,000 mg BID PO ; Start 09/07/16 at 21:00 Salmeterol Xinafoate/ Fluticasone (Advair 250/50 Diskus) 1 inh BID INH Last administered on 09/12/16 08:47; Admin Dose 1 INH; Start 09/07/16 at 23:00 Atorvastatin Calcium (Lipitor) 40 mg QHS PO ; Start 09/07/16 at 21:00 Gabapentin (Neurontin) 900 mg QHS PO ; Start 09/07/16 at 21:00 Miscellaneous Information 1 ea NOTE XX ; Start 09/07/16 at 18:00 Glucose (Glutose) 15 gm Q15M PRN PO DECREASED GLUCOSE; Start 09/07/16 at 18:00 Glucose (Glutose) 22.5 gm Q15M PRN PO DECREASED GLUCOSE; Start 09/07/16 at 18: 00 Dextrose (D50w Syringe) 25 ml Q15M PRN IV DECREASED GLUCOSE; Start 09/07/16 at 18:00 Dextrose (D50w Syringe) 50 ml Q15M PRN IV DECREASED GLUCOSE; Start 09/07/16 at 18:00 Glucagon (Glucagen) 1 mg Q15M PRN IM DECREASED GLUCOSE; Start 09/07/16 at 18:00 Glucose (Glutose) 15 gm Q15M PRN BUCCAL DECREASED GLUCOSE; Start 09/07/16 at 18 :00 Naloxone HCl (Narcan) 0.2 mg Q2M PRN IV DECREASED REPIRATORY RATE Last administered on 09/08/16 02:44; Admin Dose 0.2 MG; Start 09/08/16 at 02:30 Tramadol HCl 50 mg 50 mg Q8H PRN PO PAIN Last administered on 09/08/16 15:57; Admin Dose 50 MG; Start 09/08/16 at 16:00 Phenylephrine HCl/ Dextrose (Efraín-Syneph/D5W) 500 ml @ 75 mls/hr TITRATE IV ; Start 09/09/16 at 03:00 Insulin Aspart (Novolog Insulin Pen) NOVOLOG *MILD* ALGORI... Q4 SC Last administered on 09/12/16 14:27; Admin Dose 1 UNIT; Start 09/09/16 at 05:00 Hydromorphone HCl (Dilaudid) 0.5 mg Q2H PRN IV PAIN Last administered on 01:31; Admin Dose 0.5 MG; Start 09/09/16 at 08:30 Methylprednisolone Sodium Succinate (Solu-Medrol) 10 mg QAM IV Last administered on 09/12/16 08:45; Admin Dose 10 MG; Start 09/10/16 at 11:30 Methylprednisolone Sodium Succinate 5 mg 5 mg QPM IV Last administered on 21:25; Admin Dose 5 MG; Start 09/10/16 at 21:00 Amiodarone HCl 900 mg/Dextrose 500 ml @ 16.66 mls/ hr Q24H IV Last administered on 09/11/16 16:08; Admin Dose 16.66 MLS/HR; Start 09/10/16 at 16: 00 Total Parenteral Nutrition 1,000 ml @ 40 mls/hr Q24H IV ; Start 09/11/16 at 16: 00; Status Future Hold Dextrose/Sodium Chloride (D5-1/2ns) 1,000 ml @ 50 mls/hr Q20H IV Last administered on 09/12/16t 11:09; Admin Dose 50 MLS/HR; Start 09/11/16 at 13:30 Acetaminophen (Tylenol Tab) 500 mg Q6H PO ; Start 09/12/16 at 09:00; Stop at 08:59 Gabapentin (Neurontin) 200 mg PO ; Start 09/13/16 at 09:00 FARIDA BARRERA MD September 12, 2016 16:01
[2016-09-12] MEDS: AMIODARONE 900 MG in DEXTROSE 5% 482 ML IV SCH (16:04)
--- NOTE | 2016-09-12 17:19 | RADRPT ---
PROCEDURE: US guidance for PICC line CLINICAL INDICATION: PICC line placement TECHNIQUE: Multiple real-time images were acquired of the patient's arm utilizing a high resolutio n transducer. This was performed by the PICC line nurse for venous access. COMPARISON: None FINDINGS: Ultrasound guidance for PICC line placement. IMPRESSION: Ultrasound guidance for PICC line placement. RPTAT: AA .Tay Matute MD, MD Date Time Electronically viewed and signed by .Tay Matute MD, on 09/12/2016 17:18 .S/
[2016-09-12] MEDS: GABAPENTIN 300 MG CAP PO SCH (21:25)
[2016-09-12] MEDS: ATORVASTATIN 40 MG TAB PO SCH (21:25)
--- NOTE | 2016-09-12 22:44 | CONS ---
Date/Time of Note Date/Time of Note DATE: 09/12/16 TIME: 22:41 Assessment/Plan Assessment/Plan Chief Complaint/Hosp Course Impression: # Atrial Fibrillation- non valvular, chronic currently in rvr. anticoag with coumadin at baseline now off give c2/fxr, fall # s/p TAVR- stable # s/p fall with C2 cervical fracture # COPD on BIPAP # ESRD on iHD # HTN, bp now improved/stable. but on lower side unable to add avn viet Recommendations: - bp stable, but still on lower side, unable to add metop - cont amio gtt for rate control, if tolerating po may switch to po - consider digoxin if bp marginal and rates are uncontrolled, however given iHD would be hesitant to add at this time - off anticoag given c2 fxr and fall - fluid mgmt with iHD per renal - will follow Problems: Consultation Date/Type/Reason Admit Date/Time September 07, 2016 at 16:36 Type of Consultation: cardiology Referring Provider: TOMER GARCIA MD 24 HR Interval Summary Free Text/Dictation pt seen this am. no acute events. bp lower side 90s-100s. denies palpitatins, dizziness. has diffuse pain, sob stable. on bipap overnight tele reviewed afib 80s-90s Detailed Summary Respiratory: shortness of breath Cardiovascular: no complaints Gastrointestinal: pain Musculoskeletal: bone/joint pain Exam/Review of Systems Vital Signs Vitals Vital Signs Date Time Temp Pulse Resp B/P Pulse Ox O2 Delivery O2 Flow Rate FiO2 09/12/16 22:14 2.0 09/12/16 22:12 88 97 30 09/12/16 22:00 14 102/38 Nasal Cannula 09/12/16 20:00 98.1 Intake and Output 09/11/16 09/11/16 09/12/16 15:00 23:00 07:00 Intake Total 416.62 ml 483.28 ml 533.28 ml Balance 416.62 ml 483.28 ml 533.28 ml Exam Constitutional: alert, oriented Neck: other (in ccollar) Respiratory: clear to auscultation Cardiovascular: edema, other (irregualrly irregular, nl s1s2, tachy. ii/vi vsem ) Gastrointestinal: non-tender, soft Musculoskeletal: nl extremities to inspection Extremities: normal pulses, other (tender to palpation) 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: GEODETIC COMPUTATOR II-XII intact Results Result Diagram: 09/12/16 0447 09/12/16 0447 Results 24 hrs Laboratory Tests Test 09/12/16 01:13 09/12/16 04:45 09/12/16 04:47 09/12/16 04:59 Bedside Glucose 126 147 Prealbumin 14.9 L White Blood Count 7.1 Red Blood Count 3.50 L Hemoglobin 10.4 L Hematocrit 31.0 L Mean Corpuscular Volume 88.6 Mean Corpuscular Hemoglobin 29.7 Mean Corpuscular Hemoglobin Concent 33.5 Red Cell Distribution Width 14.4 Platelet Count 221 Mean Platelet Volume 10.8 H Neutrophils % 86.1 H Lymphocytes % 7.9 L Monocytes % 5.2 Eosinophils % 0.1 Basophils % 0.1 Nucleated Red Blood Cells % 0.0 Neutrophils # 6.1 Lymphocytes # 0.6 L Monocytes # 0.4 Eosinophils # 0.0 Basophils # 0.0 Nucleated Red Blood Cells # 0.0 Sodium Level 130 L Potassium Level 4.6 Chloride Level 96 L Carbon Dioxide Level 25 Anion Gap 14 Blood Urea Nitrogen 69 H Creatinine 9.32 H Glucose Level 136 Calcium Level 8.5 Phosphorus Level 10.9 #H Magnesium Level 1.8 Total Bilirubin 0.0 L Direct Bilirubin 0.00 Indirect Bilirubin 0.0 Aspartate Amino Transf (AST/SGOT) 14 L Alanine Aminotransferase (ALT/SGPT) 29 Alkaline Phosphatase 44 Total Protein 6.9 Albumin 3.1 L Globulin 3.80 H Albumin/Globulin Ratio 0.81 Test 09/12/16 05:00 09/12/16 09:06 09/12/16 14:05 09/12/16 17:20 Blood Gas Specimen Source Blood arterial Arterial Blood Date Drawn 09/12/2016 5:20:27 AM Arterial Blood pH (Temp corrected) 7.285 *L Arterial Blood pCO2 (Temp correct) 52.4 H Arterial Blood pO2 (Temp corrected) 104.9 H Arterial Blood HCO3 24.3 Arterial Blood Base Excess -2.7 Arterial Blood Oxygen Saturation 97.0 Soy Test N/A Arterial Blood Gas Puncture Site LB Arterial Blood Carboxyhemoglobin 0.1 Arterial Blood Methemoglobin 0.3 Blood Gas A-a O2 Differential 25.6 H Oxyhemoglobin Percent 96.6 Total Hemoglobin 11.3 L Blood Gas Temperature 37.0 Blood Gas Modality NASAL CANNULA FiO2 27.0 Blood Gas Critical Value Read Back Mari MUÑOZ RN Blood Gas Notified Whom UP Blood Gas Notified Time 09/12/2016 5:32:20 AM Bedside Glucose 147 166 167 Test 09/12/16 20:00 09/12/16 21:22 Bedside Glucose 124 115 Medications Medications Current Medications Acetaminophen/ Hydrocodone Bitart ([place] (5/325)) 1 tab Q6H PRN PO MODERATE PAIN LEVEL 4-6 Last administered on 09/12/16 19:57; Admin Dose 1 TAB; Start at 17:30 Acetaminophen/ Hydrocodone Bitart ([place] (5/325)) 2 tab Q6H PRN PO SEVERE PAIN LEVEL 7-10; Start 09/07/16 at 17:30 Docusate Sodium (Colace) 100 mg Q12H PRN PO CONSTIPATION; Start 09/07/16 at 17: 30 Sodium Biphosphate/ Sodium Phosphate (Fleet Enema) 133 ml DAILY PRN [place] CONSTIPATION; Start 09/07/16 at 17:30 Famotidine (Pepcid Iv) 20 mg DAILY IV Last administered on 09/12/16 09:07; Admin Dose 20 MG; Start 09/08/16 at 09:00 Heparin Sodium (Porcine) (Heparin (5000 Units/0.5 ml)) 5,000 unit Q12 SC Last administered on 09/12/16 21:35; Admin Dose 5,000 UNIT; Start 09/07/16 at 21:00 Folic Acid (Folic Acid) 1 mg BID PO Last administered on 09/12/16 21:25; Admin Dose 1 MG; Start 09/07/16 at 21:00 Metoprolol Tartrate (Lopressor) 12.5 mg BID PO Last administered on 09/12/16 08:43; Admin Dose 12.5 MG; Start 09/07/16 at 23:00 Fenofibrate (Tricor) 48 mg QAM PO Last administered on 09/12/16 08:45; Admin Dose 48 MG; Start 09/08/16 at 09:00 Linagliptin (Tradjenta) 5 mg DAILY PO Last administered on 09/12/16 09:00; Admin Dose 5 MG; Start 09/07/16 at 18:00 Insulin Glargine (Lantus) 2 unit BID@08,20 SC Last administered on 09/12/16 20 :05; Admin Dose 2 UNIT; Start 09/07/16 at 20:00 Fish Oil (Fish Oil) 2,000 mg BID PO Last administered on 09/12/16 21:25; Admin Dose 2,000 MG; Start 09/07/16 at 21:00 Salmeterol Xinafoate/ Fluticasone (Advair 250/50 Diskus) 1 inh BID INH Last administered on 09/12/16 21:27; Admin Dose 1 INH; Start 09/07/16 at 23:00 Atorvastatin Calcium (Lipitor) 40 mg QHS PO Last administered on 09/12/16 21: 25; Admin Dose 40 MG; Start 09/07/16 at 21:00 Gabapentin (Neurontin) 900 mg QHS PO Last administered on 09/12/16 21:25; Admin Dose 900 MG; Start 09/07/16 at 21:00 Miscellaneous Information 1 ea NOTE XX ; Start 09/07/16 at 18:00 Glucose (Glutose) 15 gm Q15M PRN PO DECREASED GLUCOSE; Start 09/07/16 at 18:00 Glucose (Glutose) 22.5 gm Q15M PRN PO DECREASED GLUCOSE; Start 09/07/16 at 18: 00 Dextrose (D50w Syringe) 25 ml Q15M PRN IV DECREASED GLUCOSE; Start 09/07/16 at 18:00 Dextrose (D50w Syringe) 50 ml Q15M PRN IV DECREASED GLUCOSE; Start 09/07/16 at 18:00 Glucagon (Glucagen) 1 mg Q15M PRN IM DECREASED GLUCOSE; Start 09/07/16 at 18:00 Glucose (Glutose) 15 gm Q15M PRN BUCCAL DECREASED GLUCOSE; Start 09/07/16 at 18 :00 Naloxone HCl (Narcan) 0.2 mg Q2M PRN IV DECREASED REPIRATORY RATE Last administered on 09/08/16 02:44; Admin Dose 0.2 MG; Start 09/08/16 at 02:30 Tramadol HCl 50 mg 50 mg Q8H PRN PO PAIN Last administered on 09/08/16 15:57; Admin Dose 50 MG; Start 09/08/16 at 16:00 Phenylephrine HCl/ Dextrose (Efraín-Syneph/D5W) 500 ml @ 75 mls/hr TITRATE IV ; Start 09/09/16 at 03:00 Insulin Aspart (Novolog Insulin Pen) NOVOLOG *MILD* ALGORI... Q4 SC Last administered on 09/12/16 17:25; Admin Dose 1 UNIT; Start 09/09/16 at 05:00 Hydromorphone HCl (Dilaudid) 0.5 mg Q2H PRN IV PAIN Last administered on 01:31; Admin Dose 0.5 MG; Start 09/09/16 at 08:30 Methylprednisolone Sodium Succinate (Solu-Medrol) 10 mg QAM IV Last administered on 09/12/16 08:45; Admin Dose 10 MG; Start 09/10/16 at 11:30 Methylprednisolone Sodium Succinate 5 mg 5 mg QPM IV Last administered on 21:25; Admin Dose 5 MG; Start 09/10/16 at 21:00 Amiodarone HCl 900 mg/Dextrose 500 ml @ 16.66 mls/ hr Q24H IV Last administered on 09/12/16 16:04; Admin Dose 16.66 MLS/HR; Start 09/10/16 at 16: 00 Total Parenteral Nutrition 1,000 ml @ 40 mls/hr Q24H IV ; Start 09/11/16 at 16: 00; Status Future Hold Dextrose/Sodium Chloride (D5-1/2ns) 1,000 ml @ 50 mls/hr Q20H IV Last administered on 09/12/16 11:09; Admin Dose 50 MLS/HR; Start 09/11/16 at 13:30 Acetaminophen (Tylenol Tab) 500 mg Q6H PO Last administered on 09/12/16 21:25 ; Admin Dose 500 MG; Start 09/12/16 at 09:00; Stop 09/16/16 at 08:59 Gabapentin (Neurontin) 200 mg 09,16 PO ; Start 09/13/16 at 09:00 Procedures Procedures cxr report reviewed There is stable cardiomegaly and mild vascular congestion with the presence of a left lower lung opacity and small left effusion. Mild right basilar atelectasis is also unchanged. Stent is seen overlying the mediastinum. Left central line catheter is unchanged. EVELYN RANKIN September 12, 2016 22:44
[2016-09-13] VITALS (61 sets, daily range): BP systolic 60–128; BP diastolic 28–105; PULSE 66–110; RESP 9–24
[2016-09-13] MEDS: INSULIN ASPART [NOVOLOG] 3 ML PEN SC SCH ×6 (00:40→20:46)
[2016-09-13] MEDS: DEXTROSE 5%-0.45% NACL 1,000 ML IV SCH ×3 (03:45→20:39)
[2016-09-13] MEDS: ACETAMINOPHEN 500 MG TAB PO SCH ×4 (03:45→20:33)
[2016-09-13] MEDS: HYDROmorphONE 1 MG/ML SYG IV PRN (03:46)
[2016-09-13 06:19] LABS: ADD SCAN DIFF NO
[2016-09-13 06:26] LABS: HEMATOCRIT 31.6 % (37.0-47.0); HEMOGLOBIN 10.4 g/dl (12.0-16.0); LYMPHOCYTES # 0.7 10^3/ul (0.8-2.9); LYMPHOCYTES % 13.1 % (15.0-51.0); MEAN CORPUSCULAR HEMOGLOBIN 29.7 pg (29.0-33.0); MEAN CORPUSCULAR HGB CONC 32.9 g/dl (32.0-37.0); MEAN CORPUSCULAR VOLUME 90.3 fl (82.0-101.0); MEAN PLATELET VOLUME 10.7 fl (7.4-10.4); MONOCYTE # 0.4 10^3/ul (0.3-0.9); MONOCYTES % 6.5 % (0.0-11.0); NEUTROPHIL # 4.5 10^3/ul (1.6-7.5); NEUTROPHILS % 79.9 % (39.0-77.0); PLATELET COUNT 206 10^3/UL (140-415); RED CELL DISTRIBUTION WIDTH 14.7 % (11.5-14.5); WHITE BLOOD COUNT 5.6 10^3/ul (4.8-10.8)
[2016-09-13 06:49] LABS: ALBUMIN 3.1 g/dl (3.3-4.9); ALBUMIN/GLOBULIN RATIO 0.83; CALCIUM 8.9 mg/dl (8.4-10.2); POTASSIUM 4.3 mmol/L (3.5-5.1); TOTAL PROTEIN 6.8 g/dl (6.1-8.1)
[2016-09-13 07:10] LABS: CREATININE 6.46 mg/dl (0.44-1.00)
[2016-09-13 07:34] LABS: AADO2 Arterial 33.7 mmHg (7.0-24.0); Allen Test ACCEPTAB; Arterial Base Excess 1.5 mmol/L (-3.0-3); Arterial COHb 0.1 % (0.0-3.0); Arterial Fraction of Oxyhgb 96.7 % (93.0-99.0); Arterial HCO3 28.9 mmol/L (22.0-26.0); Arterial MetHb 0.4 % (0.0-1.5); Arterial Total Hemglobin 11.2 g/dl (12.0-18.0); MODE NASAL CANNULA
[2016-09-13] MEDS: SEVELAMER CARBONATE 0.8 GM PKT PO SCH ×3 (07:48→16:52)
--- NOTE | 2016-09-13 07:53 | CONS ---
Date/Time of Note Date/Time of Note DATE: 09/13/16 TIME: 07:50 Assessment/Plan Assessment/Plan Problems: (1) C2 cervical fracture Status: Acute Comment: remains in hard collar Qualifiers: Encounter type: initial encounter Fracture type: closed Fracture morphology: unspecified fracture morphology Fracture alignment: displaced Qualified Code: S12.100A - Closed displaced fracture of second cervical vertebra, unspecified fracture morphology, initial encounter (2) ESRD (end stage renal disease) on dialysis Status: Chronic Comment: for next HD in Am Wed (3) Atrial fibrillation Status: Chronic Comment: rate controlled on IV Amio... coumadin on HOLD Qualifiers: Atrial fibrillation type: chronic Qualified Code: I48.2 - Chronic atrial fibrillation (4) Aortic stenosis Status: Chronic Comment: s/p TAVR in 04/01... stable Qualifiers: Cardiac valve disease etiology: nonrheumatic Qualified Code: I35.0 - Nonrheumatic aortic valve stenosis Consultation Date/Type/Reason Admit Date/Time September 07, 2016 at 16:36 Initial Consult Date 09/08/16 Type of Consultation: neph Referring Provider: TOMER GARCIA MD 24 HR Interval Summary Free Text/Dictation pt sleepy, as recently medicated for pain... 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 Exam/Review of Systems Vital Signs Vitals Vital Signs Date Time Temp Pulse Resp B/P Pulse Ox O2 Delivery O2 Flow Rate FiO2 09/13/16 06:08 3.0 09/13/16 06:00 79 13 86/29 99 Nasal Cannula 09/13/16 04:10 30 09/13/16 04:00 98.8 Intake and Output 09/12/16 09/12/16 09/13/16 15:00 23:00 07:00 Intake Total 1333.28 ml 566.62 ml 832 ml Output Total 3500 ml Balance -2166.72 ml 566.62 ml 832 ml Exam Psych: no complaints Neck: other (w hard collar in place) Respiratory: normal air movement Cardiovascular: irregular rhythm Extremities: edema (none) Results Result Diagram: 09/13/16 0500 09/13/16 0500 Results 24 hrs Laboratory Tests Test 09/12/16 09:06 09/12/16 14:05 09/12/16 17:20 09/12/16 20:00 Bedside Glucose 147 166 167 124 Test 09/12/16 21:22 09/13/16 00:35 09/13/16 05:00 09/13/16 05:02 Bedside Glucose 115 151 139 White Blood Count 5.6 # Red Blood Count 3.50 L Hemoglobin 10.4 L Hematocrit 31.6 L Mean Corpuscular Volume 90.3 Mean Corpuscular Hemoglobin 29.7 Mean Corpuscular Hemoglobin Concent 32.9 Red Cell Distribution Width 14.7 H Platelet Count 206 Mean Platelet Volume 10.7 H Neutrophils % 79.9 H Lymphocytes % 13.1 L Monocytes % 6.5 Eosinophils % 0.0 Basophils % 0.0 Nucleated Red Blood Cells % 0.0 Neutrophils # 4.5 Lymphocytes # 0.7 L Monocytes # 0.4 Eosinophils # 0.0 Basophils # 0.0 Nucleated Red Blood Cells # 0.0 Blood Gas Specimen Source Blood arterial Arterial Blood Date Drawn 09/13/2016 4:51:00 AM Arterial Blood pH (Temp corrected) 7.303 L Arterial Blood pCO2 (Temp correct) 59.7 H Arterial Blood pO2 (Temp corrected) 110.1 H Arterial Blood HCO3 28.9 H Arterial Blood Base Excess 1.5 Arterial Blood Oxygen Saturation 97.2 Soy Test ACCEPTAB Arterial Blood Gas Puncture Site Right Radial Arterial Blood Carboxyhemoglobin 0.1 Arterial Blood Methemoglobin 0.4 Blood Gas A-a O2 Differential 33.7 H Oxyhemoglobin Percent 96.7 Total Hemoglobin 11.2 L Blood Gas Temperature 37.0 Blood Gas Modality NASAL CANNULA FiO2 30.0 Blood Gas Notified Whom RTR Blood Gas Notified Time 09/13/2016 5:17:00 AM Sodium Level 138 Potassium Level 4.3 Chloride Level 102 Carbon Dioxide Level 27 Anion Gap 13 Blood Urea Nitrogen 42 #H Creatinine 6.46 #H Glucose Level 136 Calcium Level 8.9 Total Bilirubin 0.0 L Direct Bilirubin 0.00 Indirect Bilirubin 0.0 Aspartate Amino Transf (AST/SGOT) 16 Alanine Aminotransferase (ALT/SGPT) 27 Alkaline Phosphatase 39 L Total Protein 6.8 Albumin 3.1 L Globulin 3.70 H Albumin/Globulin Ratio 0.83 Medications Medications Current Medications Acetaminophen/ Hydrocodone Bitart ([place] (5/325)) 1 tab Q6H PRN PO MODERATE PAIN LEVEL 4-6 Last administered on 09/12/16t 19:57; Admin Dose 1 TAB; Start at 17:30 Acetaminophen/ Hydrocodone Bitart ([place] (5/325)) 2 tab Q6H PRN PO SEVERE PAIN LEVEL 7-10; Start 09/07/16 at 17:30 Docusate Sodium (Colace) 100 mg Q12H PRN PO CONSTIPATION; Start 09/07/16 at 17: 30 Sodium Biphosphate/ Sodium Phosphate (Fleet Enema) 133 ml DAILY PRN [place] CONSTIPATION; Start 09/07/16 at 17:30 Famotidine (Pepcid Iv) 20 mg DAILY IV Last administered on 09/12/16 09:07; Admin Dose 20 MG; Start 09/08/16 at 09:00 Heparin Sodium (Porcine) (Heparin (5000 Units/0.5 ml)) 5,000 unit Q12 SC Last administered on 09/12/16 21:35; Admin Dose 5,000 UNIT; Start 09/07/16 at 21:00 Folic Acid (Folic Acid) 1 mg BID PO Last administered on 09/12/16 21:25; Admin Dose 1 MG; Start 09/07/16 at 21:00 Metoprolol Tartrate (Lopressor) 12.5 mg BID PO Last administered on 09/12/16 08:43; Admin Dose 12.5 MG; Start 09/07/16 at 23:00 Fenofibrate (Tricor) 48 mg QAM PO Last administered on 09/12/16 08:45; Admin Dose 48 MG; Start 09/08/16 at 09:00 Linagliptin (Tradjenta) 5 mg DAILY PO Last administered on 09/12/16 09:00; Admin Dose 5 MG; Start 09/07/16 at 18:00 Insulin Glargine (Lantus) 2 unit BID@08,20 SC Last administered on 09/12/16 20 :05; Admin Dose 2 UNIT; Start 09/07/16 at 20:00 Fish Oil (Fish Oil) 2,000 mg BID PO Last administered on 09/12/16 21:25; Admin Dose 2,000 MG; Start 09/07/16 at 21:00 Salmeterol Xinafoate/ Fluticasone (Advair 250/50 Diskus) 1 inh BID INH Last administered on 09/12/16 21:27; Admin Dose 1 INH; Start 09/07/16 at 23:00 Atorvastatin Calcium (Lipitor) 40 mg QHS PO Last administered on 09/12/16 21: 25; Admin Dose 40 MG; Start 09/07/16 at 21:00 Gabapentin (Neurontin) 900 mg QHS PO Last administered on 09/12/16 21:25; Admin Dose 900 MG; Start 09/07/16 at 21:00 Miscellaneous Information 1 ea NOTE XX ; Start 09/07/16 at 18:00 Glucose (Glutose) 15 gm Q15M PRN PO DECREASED GLUCOSE; Start 09/07/16 at 18:00 Glucose (Glutose) 22.5 gm Q15M PRN PO DECREASED GLUCOSE; Start 09/07/16 at 18: 00 Dextrose (D50w Syringe) 25 ml Q15M PRN IV DECREASED GLUCOSE; Start 09/07/16 at 18:00 Dextrose (D50w Syringe) 50 ml Q15M PRN IV DECREASED GLUCOSE; Start 09/07/16 at 18:00 Glucagon (Glucagen) 1 mg Q15M PRN IM DECREASED GLUCOSE; Start 09/07/16 at 18:00 Glucose (Glutose) 15 gm Q15M PRN BUCCAL DECREASED GLUCOSE; Start 09/07/16 at 18 :00 Naloxone HCl (Narcan) 0.2 mg Q2M PRN IV DECREASED REPIRATORY RATE Last administered on 09/08/16 02:44; Admin Dose 0.2 MG; Start 09/08/16 at 02:30 Tramadol HCl 50 mg 50 mg Q8H PRN PO PAIN Last administered on 09/08/16 15:57; Admin Dose 50 MG; Start 09/08/16 at 16:00 Phenylephrine HCl/ Dextrose (Efraín-Syneph/D5W) 500 ml @ 75 mls/hr TITRATE IV ; Start 09/09/16 at 03:00 Insulin Aspart (Novolog Insulin Pen) NOVOLOG *MILD* ALGORI... Q4 SC Last administered on 09/13/16 00:40; Admin Dose 1 UNIT; Start 09/09/16 at 05:00 Hydromorphone HCl (Dilaudid) 0.5 mg Q2H PRN IV PAIN Last administered on 03:46; Admin Dose 0.5 MG; Start 09/09/16 at 08:30 Methylprednisolone Sodium Succinate (Solu-Medrol) 10 mg QAM IV Last administered on 09/12/16 08:45; Admin Dose 10 MG; Start 09/10/16 at 11:30 Methylprednisolone Sodium Succinate 5 mg 5 mg QPM IV Last administered on 21:25; Admin Dose 5 MG; Start 09/10/16 at 21:00 Amiodarone HCl 900 mg/Dextrose 500 ml @ 16.66 mls/ hr Q24H IV Last administered on 09/12/16 16:04; Admin Dose 16.66 MLS/HR; Start 09/10/16 at 16: 00 Total Parenteral Nutrition 1,000 ml @ 40 mls/hr Q24H IV ; Start 09/11/16 at 16: 00; Status Future Hold Dextrose/Sodium Chloride (D5-1/2ns) 1,000 ml @ 50 mls/hr Q20H IV Last administered on 09/13/16 03:45; Admin Dose 50 MLS/HR; Start 09/11/16 at 13:30 Acetaminophen (Tylenol Tab) 500 mg Q6H PO Last administered on 09/13/16 03:45 ; Admin Dose 500 MG; Start 09/12/16 at 09:00; Stop 09/16/16 at 08:59 Gabapentin (Neurontin) 200 mg ,16 PO ; Start 09/13/16 at 09:00 NICO HAY MD September 13, 2016 07:53
--- NOTE | 2016-09-13 08:06 | RADRPT ---
PROCEDURE: XR Chest. CLINICAL INDICATION: vent TECHNIQUE: Single frontal view of the chest was obtained. COMPARISON: Chest x-ray from 09/12/2016 FINDINGS: There is stable cardiomegaly and mild to moderate pulmonary vascular congestion. There is a stable small left pleural effusion and retrocardiac opacity due to atelectasis, infiltrat e, and / or effusion. A prosthetic aortic valve is again noted. There is no significant pleural effusion or pneumothorax. IMPRESSION: No significant interval change. RPTAT: EE Physician Mabel Date Time Electronically viewed and signed by Physician Mabel on 09/13/2016 08:06 /
[2016-09-13] MEDS: INSULIN GLARGINE [LANtus] 3 ML PEN SC SCH ×2 (08:52→20:47)
[2016-09-13] MEDS: METOPROLOL 25 MG TAB PO SCH ×2 (09:00→20:33)
[2016-09-13] MEDS: METHYLPREDNISOLONE 40 MG INJ IV SCH ×2 (09:34→20:33)
[2016-09-13] MEDS: FAMOTIDINE 20 MG INJ IV SCH (09:34)
[2016-09-13] MEDS: GABAPENTIN 100 MG CAP PO SCH ×2 (09:37→16:29)
[2016-09-13] MEDS: FISH OIL 1,000 MG CAP PO SCH ×2 (09:42→20:32)
[2016-09-13] MEDS: FOLIC ACID 1 MG TAB PO SCH ×2 (09:42→20:33)
[2016-09-13] MEDS: HEPARIN 5,000 UNIT/0.5 ML VIAL SC SCH ×2 (09:47→20:48)
[2016-09-13] MEDS: LINAGLIPTIN 5 MG TABLET PO SCH (09:58)
[2016-09-13] MEDS: SALMETEROL/FLUTICASONE 250/50 INHA INH SCH ×2 (09:58→20:41)
[2016-09-13] MEDS: FENOFIBRATE 48 MG TAB PO SCH (09:58)
[2016-09-13] MEDS ORDERED: PHENYLephrine 20MG IN 250 ML 250 ML ONE (10:52)
--- NOTE | 2016-09-13 11:11 | CONS ---
Date/Time of Note Date/Time of Note DATE: 09/13/16 TIME: 11:05 Consult Date/Type/Reason Admit Date/Time September 07, 2016 at 16:36 Initial Consult Date 09/08/16 Type of Consultation: Pulmonary Ordering Provider: TOMER GARCIA MD Subjective Patient remains somewhat somnolent this morning but comfortable No events overnight poor p.o. intake. Objective Vital Signs Date Time Temp Pulse Resp B/P Pulse Ox O2 Delivery O2 Flow Rate FiO2 09/13/16 10:00 75 10 84/41 100 Nasal Cannula 09/13/16 08:00 3.0 09/13/16 08:00 98.6 09/13/16 04:10 30 Intake and Output 09/12/16 09/12/16 09/13/16 14:59 22:59 06:59 Intake Total 1333.28 ml 633.28 ml 832 ml Output Total 3500 ml Balance -2166.72 ml 633.28 ml 832 ml Exam GENERAL: Elderly lady with C-spine collar VITAL SIGNS: per chart NECK: Supple. No JVD or lymphadenopathy. CARDIAC EXAM: S1, S2. No added sounds or murmurs. CHEST: clear bilaterally, No added sounds, rales or wheezes ABDOMEN: Soft, nontender. No guarding or rebound. EXTREMITIES: No cyanosis, clubbing or edema. NEUROLOGIC: Generalized weakness. No focal deficits. Results/Medications Result Diagram: 09/13/16 0500 09/13/16 0500 Results 24 hrs Laboratory Tests Test 09/12/16 14:05 09/12/16 17:20 09/12/16 20:00 09/12/16 21:22 Bedside Glucose 166 167 124 115 Test 09/13/16 00:35 09/13/16 05:00 09/13/16 05:02 09/13/16 08:44 Bedside Glucose 151 139 112 White Blood Count 5.6 # Red Blood Count 3.50 L Hemoglobin 10.4 L Hematocrit 31.6 L Mean Corpuscular Volume 90.3 Mean Corpuscular Hemoglobin 29.7 Mean Corpuscular Hemoglobin Concent 32.9 Red Cell Distribution Width 14.7 H Platelet Count 206 Mean Platelet Volume 10.7 H Neutrophils % 79.9 H Lymphocytes % 13.1 L Monocytes % 6.5 Eosinophils % 0.0 Basophils % 0.0 Nucleated Red Blood Cells % 0.0 Neutrophils # 4.5 Lymphocytes # 0.7 L Monocytes # 0.4 Eosinophils # 0.0 Basophils # 0.0 Nucleated Red Blood Cells # 0.0 Blood Gas Specimen Source Blood arterial Arterial Blood Date Drawn 09/13/2016 4:51:00 AM Arterial Blood pH (Temp corrected) 7.303 L Arterial Blood pCO2 (Temp correct) 59.7 H Arterial Blood pO2 (Temp corrected) 110.1 H Arterial Blood HCO3 28.9 H Arterial Blood Base Excess 1.5 Arterial Blood Oxygen Saturation 97.2 Soy Test ACCEPTAB Arterial Blood Gas Puncture Site Right Radial Arterial Blood Carboxyhemoglobin 0.1 Arterial Blood Methemoglobin 0.4 Blood Gas A-a O2 Differential 33.7 H Oxyhemoglobin Percent 96.7 Total Hemoglobin 11.2 L Blood Gas Temperature 37.0 Blood Gas Modality NASAL CANNULA FiO2 30.0 Blood Gas Notified Whom RTR Blood Gas Notified Time 09/13/2016 5:17:00 AM Sodium Level 138 Potassium Level 4.3 Chloride Level 102 Carbon Dioxide Level 27 Anion Gap 13 Blood Urea Nitrogen 42 #H Creatinine 6.46 #H Glucose Level 136 Calcium Level 8.9 Total Bilirubin 0.0 L Direct Bilirubin 0.00 Indirect Bilirubin 0.0 Aspartate Amino Transf (AST/SGOT) 16 Alanine Aminotransferase (ALT/SGPT) 27 Alkaline Phosphatase 39 L Total Protein 6.8 Albumin 3.1 L Globulin 3.70 H Albumin/Globulin Ratio 0.83 Medications Current Medications Acetaminophen/ Hydrocodone Bitart ([place] (5/325)) 1 tab Q6H PRN PO MODERATE PAIN LEVEL 4-6 Last administered on 09/12/16 19:57; Admin Dose 1 TAB; Start at 17:30 Acetaminophen/ Hydrocodone Bitart ([place] (5/325)) 2 tab Q6H PRN PO SEVERE PAIN LEVEL 7-10; Start 09/07/16 at 17:30 Docusate Sodium (Colace) 100 mg Q12H PRN PO CONSTIPATION; Start 09/07/16 at 17: 30 Sodium Biphosphate/ Sodium Phosphate (Fleet Enema) 133 ml DAILY PRN [place] CONSTIPATION; Start 09/07/16 at 17:30 Famotidine (Pepcid Iv) 20 mg DAILY IV Last administered on 09/13/16 09:34; Admin Dose 20 MG; Start 09/08/16 at 09:00 Heparin Sodium (Porcine) (Heparin (5000 Units/0.5 ml)) 5,000 unit Q12 SC Last administered on 09/13/16 09:47; Admin Dose 5,000 UNIT; Start 09/07/16 at 21:00 Folic Acid (Folic Acid) 1 mg BID PO Last administered on 09/13/16 09:42; Admin Dose 1 MG; Start 09/07/16 at 21:00 Metoprolol Tartrate (Lopressor) 12.5 mg BID PO Last administered on 09/12/16 08:43; Admin Dose 12.5 MG; Start 09/07/16 at 23:00 Fenofibrate (Tricor) 48 mg QAM PO Last administered on 09/13/16 09:58; Admin Dose 48 MG; Start 09/08/16 at 09:00 Linagliptin (Tradjenta) 5 mg DAILY PO Last administered on 09/13/16 09:58; Admin Dose 5 MG; Start 09/07/16 at 18:00 Insulin Glargine (Lantus) 2 unit BID@08,20 SC Last administered on 09/13/16 08 :52; Admin Dose 2 UNIT; Start 09/07/16 at 20:00 Fish Oil (Fish Oil) 2,000 mg BID PO Last administered on 09/13/16 09:42; Admin Dose 2,000 MG; Start 09/07/16 at 21:00 Salmeterol Xinafoate/ Fluticasone (Advair 250/50 Diskus) 1 inh BID INH Last administered on 09/13/16 09:58; Admin Dose 1 INH; Start 09/07/16 at 23:00 Atorvastatin Calcium (Lipitor) 40 mg QHS PO Last administered on 09/12/16 21: 25; Admin Dose 40 MG; Start 09/07/16 at 21:00 Gabapentin (Neurontin) 900 mg QHS PO Last administered on 09/12/16 21:25; Admin Dose 900 MG; Start 09/07/16 at 21:00 Miscellaneous Information 1 ea NOTE XX ; Start 09/07/16 at 18:00 Glucose (Glutose) 15 gm Q15M PRN PO DECREASED GLUCOSE; Start 09/07/16 at 18:00 Glucose (Glutose) 22.5 gm Q15M PRN PO DECREASED GLUCOSE; Start 09/07/16 at 18: 00 Dextrose (D50w Syringe) 25 ml Q15M PRN IV DECREASED GLUCOSE; Start 09/07/16 at 18:00 Dextrose (D50w Syringe) 50 ml Q15M PRN IV DECREASED GLUCOSE; Start 09/07/16 at 18:00 Glucagon (Glucagen) 1 mg Q15M PRN IM DECREASED GLUCOSE; Start 09/07/16 at 18:00 Glucose (Glutose) 15 gm Q15M PRN BUCCAL DECREASED GLUCOSE; Start 09/07/16 at 18 :00 Naloxone HCl (Narcan) 0.2 mg Q2M PRN IV DECREASED REPIRATORY RATE Last administered on 09/08/16 02:44; Admin Dose 0.2 MG; Start 09/08/16 at 02:30 Tramadol HCl 50 mg 50 mg Q8H PRN PO PAIN Last administered on 09/08/16 15:57; Admin Dose 50 MG; Start 09/08/16 at 16:00 Phenylephrine HCl/ Dextrose (Efraín-Syneph/D5W) 500 ml @ 75 mls/hr TITRATE IV ; Start 09/09/16 at 03:00 Insulin Aspart (Novolog Insulin Pen) NOVOLOG *MILD* ALGORI... Q4 SC Last administered on 09/13/16 00:40; Admin Dose 1 UNIT; Start 09/09/16 at 05:00 Hydromorphone HCl (Dilaudid) 0.5 mg Q2H PRN IV PAIN Last administered on 03:46; Admin Dose 0.5 MG; Start 09/09/16 at 08:30 Methylprednisolone Sodium Succinate (Solu-Medrol) 10 mg QAM IV Last administered on 09/13/16 09:34; Admin Dose 10 MG; Start 09/10/16 at 11:30 Methylprednisolone Sodium Succinate 5 mg 5 mg QPM IV Last administered on 21:25; Admin Dose 5 MG; Start 09/10/16 at 21:00 Amiodarone HCl 900 mg/Dextrose 500 ml @ 16.66 mls/ hr Q24H IV Last administered on 09/12/16 16:04; Admin Dose 16.66 MLS/HR; Start 09/10/16 at 16: 00 Total Parenteral Nutrition 1,000 ml @ 40 mls/hr Q24H IV ; Start 09/11/16 at 16: 00; Status Future Hold Dextrose/Sodium Chloride (D5-1/2ns) 1,000 ml @ 50 mls/hr Q20H IV Last administered on 09/13/16 03:45; Admin Dose 50 MLS/HR; Start 09/11/16 at 13:30 Acetaminophen (Tylenol Tab) 500 mg Q6H PO Last administered on 09/13/16 09:42 ; Admin Dose 500 MG; Start 09/12/16 at 09:00; Stop 09/16/16 at 08:59 Gabapentin (Neurontin) 200 mg 16 PO Last administered on 09/13/16 09:37; Admin Dose 200 MG; Start 09/13/16 at 09:00 Assessment/Plan Chief Complaint/Hosp Course Additional Assessment/Plan IMP: 1. Acute on chronic hypercapnic respiratory failure: multifactorial in etiology. Possible underlying OSH or COPD. Doubt significant [id number] diaphragmatic weakness 2. C-spine injury--high-risk intubation if needed. 3. s/p TAVR. Patient admitted with a fall resulting in spinal fracture without any neurological compromise. 4. End-stage renal disease, on hemodialysis. 5. Pulmonary sarcoidosis, patient on long-term prednisone use. 6. History of hypertension. 7. Afib with RVR 7. Coronary artery disease. Status post PTCA in the past. 8. CHF RECS: 1. Continue CS 2. PICC line care 3. Avoid TPN, consider nasogastric tube feeding 4. May initiate PO's as tolerated 5. DC CPT per patient's request 6. Titrate FiO2 to keep SpO2 at 88-92% 7. Continue HD/UF 8. Monitor blood gases closely Problems: DEBRA HERNÁNDEZ MD, FCCP September 13, 2016 11:11
[2016-09-13] MEDS: PHENYLephrine 40 MG in DEXTROSE 5% 496 ML IV SCH (11:24)
--- NOTE | 2016-09-13 13:18 | PN ---
Date/Time of Note Date/Time of Note DATE: 09/13/16 TIME: 13:13 Assessment/Plan VTE Prophylaxis VTE Prophylaxis Intervention: SCD's Lines/Catheters IV Catheter Type (from Nrs): PICC Line Central line still needed: Yes Urinary Cath still in place: No Assessment/Plan Problems: (1) Diastolic dysfunction Status: Chronic Comment: Noted and stable. Rate control will be important in this setting. Please see note from cardiology (2) Atherosclerotic heart disease of [place] coronary artery without angina pectoris Status: Chronic Comment: Quiescent and inactive Qualifiers: [place] vs. transplanted heart: [place] heart Qualified Code: I25.10 - Atherosclerosis of [place] coronary artery of [place] heart without angina pectoris (3) Status post transcatheter aortic valve replacement (TAVR) using bioprosthesis Status: Acute Comment: Noted stable patient is tolerating these issues without problem (4) Obstructive sleep apnea Status: Chronic Comment: Nocturnal BiPAP (5) Hyperlipidemia Status: Chronic Comment: On statin therapy Qualifiers: Hyperlipidemia type: pure hypercholesterolemia Qualified Code: E78.00 - Pure hypercholesterolemia (6) ESRD (end stage renal disease) on dialysis Status: Chronic Comment: As per nephrology. This does limit our resources in terms of giving her TPN. In addition I believe the TPN is not her best interest in these circumstances. She will continue on dialysis (7) Diabetes mellitus type 2 in obese Status: Chronic Comment: Adequately controlled on current medication regimen (8) COPD (chronic obstructive pulmonary disease) Status: Chronic Comment: She is on inhaler treatment. Qualifiers: COPD type: emphysema Emphysema type: panlobular Qualified Code: J43.1 - Panlobular emphysema (9) Sarcoidosis Status: Chronic Comment: Noted and she is on steroids. Please note that her borderline blood pressure is not due to adrenal insufficiency (10) Atrial fibrillation Status: Chronic Comment: Noted. Digoxin is actually not such a bad option in combination with amiodarone in the setting Qualifiers: Atrial fibrillation type: chronic Qualified Code: I48.2 - Chronic atrial fibrillation (11) C2 cervical fracture Status: Acute Comment: As per neurosurgery. She is in cervical collar. Ultimately given her pain in her debilities she is not taking nutrition well. Family will work with her today but if we do not get her nutrition up I will call in GI to place a percutaneous endoscopic gastrostomy tube for nutritional support. The patient and family presently want all resources used for prolongation of the Qualifiers: Encounter type: initial encounter Fracture type: closed Fracture morphology: other dens Fracture alignment: displaced Qualified Code: S12.120A - Other closed displaced odontoid fracture, initial encounter Subjective 24 Hr Interval Summary Free Text/Dictation Patient is sedated at this time from pain medications. Arousable and able answer questions. At this time she and her family wish to continue full treatment Constitutional: no complaints Respiratory: no complaints Cardiovascular: no complaints Exam/Review of Systems Vital Signs Vitals Vital Signs Date Time Temp Pulse Resp B/P Pulse Ox O2 Delivery O2 Flow Rate FiO2 09/13/16 12:00 85 09/13/16 12:00 98.3 14 102/39 100 Nasal Cannula 09/13/16 08:00 3.0 09/13/16 04:10 30 Intake and Output 09/12/16 09/12/16 09/13/16 15:00 23:00 07:00 Intake Total 1333.28 ml 566.62 ml 898.66 ml Output Total 3500 ml Balance -2166.72 ml 566.62 ml 898.66 ml Exam Arousable Respiratory: clear to auscultation, normal air movement Cardiovascular: nl pulses Gastrointestinal: nl liver, spleen, non-tender, soft Extremities: normal pulses Results Result Diagram: 09/13/16 0500 09/13/16 0500 Results 24 hrs Laboratory Tests Test 09/12/16 14:05 09/12/16 17:20 09/12/16 20:00 09/12/16 21:22 Bedside Glucose 166 167 124 115 Test 09/13/16 00:35 09/13/16 05:00 09/13/16 05:02 09/13/16 08:44 Bedside Glucose 151 139 112 White Blood Count 5.6 # Red Blood Count 3.50 L Hemoglobin 10.4 L Hematocrit 31.6 L Mean Corpuscular Volume 90.3 Mean Corpuscular Hemoglobin 29.7 Mean Corpuscular Hemoglobin Concent 32.9 Red Cell Distribution Width 14.7 H Platelet Count 206 Mean Platelet Volume 10.7 H Neutrophils % 79.9 H Lymphocytes % 13.1 L Monocytes % 6.5 Eosinophils % 0.0 Basophils % 0.0 Nucleated Red Blood Cells % 0.0 Neutrophils # 4.5 Lymphocytes # 0.7 L Monocytes # 0.4 Eosinophils # 0.0 Basophils # 0.0 Nucleated Red Blood Cells # 0.0 Blood Gas Specimen Source Blood arterial Arterial Blood Date Drawn 09/13/2016 4:51:00 AM Arterial Blood pH (Temp corrected) 7.303 L Arterial Blood pCO2 (Temp correct) 59.7 H Arterial Blood pO2 (Temp corrected) 110.1 H Arterial Blood HCO3 28.9 H Arterial Blood Base Excess 1.5 Arterial Blood Oxygen Saturation 97.2 Soy Test ACCEPTAB Arterial Blood Gas Puncture Site Right Radial Arterial Blood Carboxyhemoglobin 0.1 Arterial Blood Methemoglobin 0.4 Blood Gas A-a O2 Differential 33.7 H Oxyhemoglobin Percent 96.7 Total Hemoglobin 11.2 L Blood Gas Temperature 37.0 Blood Gas Modality NASAL CANNULA FiO2 30.0 Blood Gas Notified Whom RTR Blood Gas Notified Time 09/13/2016 5:17:00 AM Sodium Level 138 Potassium Level 4.3 Chloride Level 102 Carbon Dioxide Level 27 Anion Gap 13 Blood Urea Nitrogen 42 #H Creatinine 6.46 #H Glucose Level 136 Calcium Level 8.9 Total Bilirubin 0.0 L Direct Bilirubin 0.00 Indirect Bilirubin 0.0 Aspartate Amino Transf (AST/SGOT) 16 Alanine Aminotransferase (ALT/SGPT) 27 Alkaline Phosphatase 39 L Total Protein 6.8 Albumin 3.1 L Globulin 3.70 H Albumin/Globulin Ratio 0.83 Medications Medications Current Medications Acetaminophen/ Hydrocodone Bitart ([place] (5/325)) 1 tab Q6H PRN PO MODERATE PAIN LEVEL 4-6 Last administered on 09/12/16 19:57; Admin Dose 1 TAB; Start at 17:30 Acetaminophen/ Hydrocodone Bitart ([place] (5/325)) 2 tab Q6H PRN PO SEVERE PAIN LEVEL 7-10; Start 09/07/16 at 17:30 Docusate Sodium (Colace) 100 mg Q12H PRN PO CONSTIPATION; Start 09/07/16 at 17: 30 Sodium Biphosphate/ Sodium Phosphate (Fleet Enema) 133 ml DAILY PRN [place] CONSTIPATION; Start 09/07/16 at 17:30 Famotidine (Pepcid Iv) 20 mg DAILY IV Last administered on 09/13/16 09:34; Admin Dose 20 MG; Start 09/08/16 at 09:00 Heparin Sodium (Porcine) (Heparin (5000 Units/0.5 ml)) 5,000 unit Q12 SC Last administered on 09/13/16 09:47; Admin Dose 5,000 UNIT; Start 09/07/16 at 21:00 Folic Acid (Folic Acid) 1 mg BID PO Last administered on 09/13/16 09:42; Admin Dose 1 MG; Start 09/07/16 at 21:00 Metoprolol Tartrate (Lopressor) 12.5 mg BID PO Last administered on 09/12/16 08:43; Admin Dose 12.5 MG; Start 09/07/16 at 23:00 Fenofibrate (Tricor) 48 mg QAM PO Last administered on 09/13/16 09:58; Admin Dose 48 MG; Start 09/08/16 at 09:00 Linagliptin (Tradjenta) 5 mg DAILY PO Last administered on 09/13/16 09:58; Admin Dose 5 MG; Start 09/07/16 at 18:00 Insulin Glargine (Lantus) 2 unit BID@08,20 SC Last administered on 09/13/16 08 :52; Admin Dose 2 UNIT; Start 09/07/16 at 20:00 Fish Oil (Fish Oil) 2,000 mg BID PO Last administered on 09/13/16 09:42; Admin Dose 2,000 MG; Start 09/07/16 at 21:00 Salmeterol Xinafoate/ Fluticasone (Advair 250/50 Diskus) 1 inh BID INH Last administered on 09/13/16 09:58; Admin Dose 1 INH; Start 09/07/16 at 23:00 Atorvastatin Calcium (Lipitor) 40 mg QHS PO Last administered on 09/12/16 21: 25; Admin Dose 40 MG; Start 09/07/16 at 21:00 Gabapentin (Neurontin) 900 mg QHS PO Last administered on 09/12/16 21:25; Admin Dose 900 MG; Start 09/07/16 at 21:00 Miscellaneous Information 1 ea NOTE XX ; Start 09/07/16 at 18:00 Glucose (Glutose) 15 gm Q15M PRN PO DECREASED GLUCOSE; Start 09/07/16 at 18:00 Glucose (Glutose) 22.5 gm Q15M PRN PO DECREASED GLUCOSE; Start 09/07/16 at 18: 00 Dextrose (D50w Syringe) 25 ml Q15M PRN IV DECREASED GLUCOSE; Start 09/07/16 at 18:00 Dextrose (D50w Syringe) 50 ml Q15M PRN IV DECREASED GLUCOSE; Start 09/07/16 at 18:00 Glucagon (Glucagen) 1 mg Q15M PRN IM DECREASED GLUCOSE; Start 09/07/16 at 18:00 Glucose (Glutose) 15 gm Q15M PRN BUCCAL DECREASED GLUCOSE; Start 09/07/16 at 18 :00 Naloxone HCl (Narcan) 0.2 mg Q2M PRN IV DECREASED REPIRATORY RATE Last administered on 09/08/16 02:44; Admin Dose 0.2 MG; Start 09/08/16 at 02:30 Tramadol HCl 50 mg 50 mg Q8H PRN PO PAIN Last administered on 09/08/16 15:57; Admin Dose 50 MG; Start 09/08/16 at 16:00 Phenylephrine HCl/ Dextrose (Efraín-Syneph/D5W) 500 ml @ 75 mls/hr TITRATE IV Last administered on 09/13/16 11:24; Admin Dose 75 MLS/HR; Start 09/09/16 at 03 :00 Insulin Aspart (Novolog Insulin Pen) NOVOLOG *MILD* ALGORI... Q4 SC Last administered on 09/13/16 00:40; Admin Dose 1 UNIT; Start 09/09/16 at 05:00 Hydromorphone HCl (Dilaudid) 0.5 mg Q2H PRN IV PAIN Last administered on 03:46; Admin Dose 0.5 MG; Start 09/09/16 at 08:30 Methylprednisolone Sodium Succinate (Solu-Medrol) 10 mg QAM IV Last administered on 09/13/16 09:34; Admin Dose 10 MG; Start 09/10/16 at 11:30 Methylprednisolone Sodium Succinate 5 mg 5 mg QPM IV Last administered on 21:25; Admin Dose 5 MG; Start 09/10/16 at 21:00 Amiodarone HCl 900 mg/Dextrose 500 ml @ 16.66 mls/ hr Q24H IV Last administered on 09/12/16 16:04; Admin Dose 16.66 MLS/HR; Start 09/10/16 at 16: 00 Total Parenteral Nutrition 1,000 ml @ 40 mls/hr Q24H IV ; Start 09/11/16 at 16: 00; Status Future Hold Dextrose/Sodium Chloride (D5-1/2ns) 1,000 ml @ 50 mls/hr Q20H IV Last administered on 09/13/16 03:45; Admin Dose 50 MLS/HR; Start 09/11/16 at 13:30 Acetaminophen (Tylenol Tab) 500 mg Q6H PO Last administered on 09/13/16 09:42 ; Admin Dose 500 MG; Start 09/12/16 at 09:00; Stop 09/16/16 at 08:59 Gabapentin (Neurontin) 200 mg ,16 PO Last administered on 09/13/16 09:37; Admin Dose 200 MG; Start 09/13/16 at 09:00 TOMER GARCIA MD September 13, 2016 13:17
[2016-09-13] MEDS: AMIODARONE 900 MG in DEXTROSE 5% 482 ML IV SCH ×3 (15:37→20:39)
--- NOTE | 2016-09-13 16:06 | CONS ---
Date/Time of Note Date/Time of Note DATE: 09/13/16 TIME: 15:55 Assessment/Plan Assessment/Plan Chief Complaint/Hosp Course Impression: # Atrial Fibrillation- non valvular, chronic currently in rvr. anticoag with Coumadin at baseline now off give c2 fxr, fall # s/p TAVR- stable # s/p fall with C2 cervical fracture # COPD on BIPAP # ESRD on iHD # HTN- currently off meds, hypotensive Recommendations: - bp remains variable on lower side, currently on low dose phenylephrine. unable to add bb/ccb for rate control though rate current stably - cont amio gtt for rate control, reduced dose. per nursing still needing to crush pills, would cont iv amio till taking meds regularly. - consider digoxin if bp marginal and rates are uncontrolled, however given iHD would be hesitant to add at this time - off anticoag given c2 fxr and fall - fluid mgmt with iHD per renal - will follow Problems: Consultation Date/Type/Reason Admit Date/Time September 07, 2016 at 16:36 Type of Consultation: cardiology Referring Provider: TOMER GARCIA MD 24 HR Interval Summary Free Text/Dictation bp lower this am, placed on low dose phenylephrine. pt hr improved in 70s. sleeping this afternoon, no sob, cp, dizziness. tele reviewed: afib hr in 70s-100s Detailed Summary Respiratory: no complaints Cardiovascular: no complaints Gastrointestinal: no complaints Genitourinary: no complaints Exam/Review of Systems Vital Signs Vitals Vital Signs Date Time Temp Pulse Resp B/P Pulse Ox O2 Delivery O2 Flow Rate FiO2 09/13/16 14:30 73 11 98/46 100 09/13/16 14:00 Nasal Cannula 09/13/16 12:00 98.3 09/13/16 08:00 3.0 09/13/16 04:10 30 Intake and Output 09/12/16 09/12/16 09/13/16 14:59 22:59 06:59 Intake Total 1333.28 ml 633.28 ml 832 ml Output Total 3500 ml Balance -2166.72 ml 633.28 ml 832 ml Exam Constitutional: alert, oriented Neck: other (in ccollar) Respiratory: clear to auscultation Cardiovascular: edema, other (irregualrly irregular, nl s1s2, tachy. 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 Results Result Diagram: 09/13/16 0500 09/13/16 0500 Results 24 hrs Laboratory Tests Test 09/12/16 17:20 09/12/16 20:00 09/12/16 21:22 09/13/16 00:35 Bedside Glucose 167 124 115 151 Test 09/13/16 05:00 09/13/16 05:02 09/13/16 08:44 09/13/16 13:21 White Blood Count 5.6 # Red Blood Count 3.50 L Hemoglobin 10.4 L Hematocrit 31.6 L Mean Corpuscular Volume 90.3 Mean Corpuscular Hemoglobin 29.7 Mean Corpuscular Hemoglobin Concent 32.9 Red Cell Distribution Width 14.7 H Platelet Count 206 Mean Platelet Volume 10.7 H Neutrophils % 79.9 H Lymphocytes % 13.1 L Monocytes % 6.5 Eosinophils % 0.0 Basophils % 0.0 Nucleated Red Blood Cells % 0.0 Neutrophils # 4.5 Lymphocytes # 0.7 L Monocytes # 0.4 Eosinophils # 0.0 Basophils # 0.0 Nucleated Red Blood Cells # 0.0 Blood Gas Specimen Source Blood arterial Arterial Blood Date Drawn 09/13/2016 4:51:00 AM Arterial Blood pH (Temp corrected) 7.303 L Arterial Blood pCO2 (Temp correct) 59.7 H Arterial Blood pO2 (Temp corrected) 110.1 H Arterial Blood HCO3 28.9 H Arterial Blood Base Excess 1.5 Arterial Blood Oxygen Saturation 97.2 Soy Test ACCEPTAB Arterial Blood Gas Puncture Site Right Radial Arterial Blood Carboxyhemoglobin 0.1 Arterial Blood Methemoglobin 0.4 Blood Gas A-a O2 Differential 33.7 H Oxyhemoglobin Percent 96.7 Total Hemoglobin 11.2 L Blood Gas Temperature 37.0 Blood Gas Modality NASAL CANNULA FiO2 30.0 Blood Gas Notified Whom RTR Blood Gas Notified Time 09/13/2016 5:17:00 AM Sodium Level 138 Potassium Level 4.3 Chloride Level 102 Carbon Dioxide Level 27 Anion Gap 13 Blood Urea Nitrogen 42 #H Creatinine 6.46 #H Glucose Level 136 Calcium Level 8.9 Total Bilirubin 0.0 L Direct Bilirubin 0.00 Indirect Bilirubin 0.0 Aspartate Amino Transf (AST/SGOT) 16 Alanine Aminotransferase (ALT/SGPT) 27 Alkaline Phosphatase 39 L Total Protein 6.8 Albumin 3.1 L Globulin 3.70 H Albumin/Globulin Ratio 0.83 Bedside Glucose 139 112 124 Medications Medications Current Medications Acetaminophen/ Hydrocodone Bitart ([place] (5/325)) 1 tab Q6H PRN PO MODERATE PAIN LEVEL 4-6 Last administered on 09/12/16 19:57; Admin Dose 1 TAB; Start at 17:30 Acetaminophen/ Hydrocodone Bitart ([place] (5/325)) 2 tab Q6H PRN PO SEVERE PAIN LEVEL 7-10; Start 09/07/16 at 17:30 Docusate Sodium (Colace) 100 mg Q12H PRN PO CONSTIPATION; Start 09/07/16 at 17: 30 Sodium Biphosphate/ Sodium Phosphate (Fleet Enema) [address] CONSTIPATION; Start 09/07/16 at 17:30 Famotidine (Pepcid Iv) 20 mg DAILY IV Last administered on 09/13/16 09:34; Admin Dose 20 MG; Start 09/08/16 at 09:00 Heparin Sodium (Porcine) (Heparin (5000 Units/0.5 ml)) 5,000 unit Q12 SC Last administered on 09/13/16 09:47; Admin Dose 5,000 UNIT; Start 09/07/16 at 21:00 Folic Acid (Folic Acid) 1 mg BID PO Last administered on 09/13/16 09:42; Admin Dose 1 MG; Start 09/07/16 at 21:00 Metoprolol Tartrate (Lopressor) 12.5 mg BID PO Last administered on 09/12/16 08:43; Admin Dose 12.5 MG; Start 09/07/16 at 23:00 Fenofibrate (Tricor) 48 mg QAM PO Last administered on 09/13/16 09:58; Admin Dose 48 MG; Start 09/08/16 at 09:00 Linagliptin (Tradjenta) 5 mg DAILY PO Last administered on 09/13/16 09:58; Admin Dose 5 MG; Start 09/07/16 at 18:00 Insulin Glargine (Lantus) 2 unit BID@08,20 SC Last administered on 09/13/16 08 :52; Admin Dose 2 UNIT; Start 09/07/16 at 20:00 Fish Oil (Fish Oil) 2,000 mg BID PO Last administered on 09/13/16 09:42; Admin Dose 2,000 MG; Start 09/07/16 at 21:00 Salmeterol Xinafoate/ Fluticasone (Advair 250/50 Diskus) 1 inh BID INH Last administered on 09/13/16 09:58; Admin Dose 1 INH; Start 09/07/16 at 23:00 Atorvastatin Calcium (Lipitor) 40 mg QHS PO Last administered on 09/12/16 21: 25; Admin Dose 40 MG; Start 09/07/16 at 21:00 Gabapentin (Neurontin) 900 mg QHS PO Last administered on 09/12/16 21:25; Admin Dose 900 MG; Start 09/07/16 at 21:00 Miscellaneous Information 1 ea NOTE XX ; Start 09/07/16 at 18:00 Glucose (Glutose) 15 gm Q15M PRN PO DECREASED GLUCOSE; Start 09/07/16 at 18:00 Glucose (Glutose) 22.5 gm Q15M PRN PO DECREASED GLUCOSE; Start 09/07/16 at 18: 00 Dextrose (D50w Syringe) 25 ml Q15M PRN IV DECREASED GLUCOSE; Start 09/07/16 at 18:00 Dextrose (D50w Syringe) 50 ml Q15M PRN IV DECREASED GLUCOSE; Start 09/07/16 at 18:00 Glucagon (Glucagen) 1 mg Q15M PRN IM DECREASED GLUCOSE; Start 09/07/16 at 18:00 Glucose (Glutose) 15 gm Q15M PRN BUCCAL DECREASED GLUCOSE; Start 09/07/16 at 18 :00 Naloxone HCl (Narcan) 0.2 mg Q2M PRN IV DECREASED REPIRATORY RATE Last administered on 09/08/16 02:44; Admin Dose 0.2 MG; Start 09/08/16 at 02:30 Tramadol HCl 50 mg 50 mg Q8H PRN PO PAIN Last administered on 09/08/16 15:57; Admin Dose 50 MG; Start 09/08/16 at 16:00 Phenylephrine HCl/ Dextrose (Efraín-Syneph/D5W) 500 ml @ 75 mls/hr TITRATE IV Last administered on 09/13/16 11:24; Admin Dose 75 MLS/HR; Start 09/09/16 at 03 :00 Insulin Aspart (Novolog Insulin Pen) NOVOLOG *MILD* ALGORI... Q4 SC Last administered on 09/13/16 00:40; Admin Dose 1 UNIT; Start 09/09/16 at 05:00 Hydromorphone HCl (Dilaudid) 0.5 mg Q2H PRN IV PAIN Last administered on 03:46; Admin Dose 0.5 MG; Start 09/09/16 at 08:30 Methylprednisolone Sodium Succinate (Solu-Medrol) 10 mg QAM IV Last administered on 09/13/16 09:34; Admin Dose 10 MG; Start 09/10/16 at 11:30 Methylprednisolone Sodium Succinate 5 mg 5 mg QPM IV Last administered on 21:25; Admin Dose 5 MG; Start 09/10/16 at 21:00 Amiodarone HCl 900 mg/Dextrose 500 ml @ 16.66 mls/ hr Q24H IV Last administered on 09/12/16 16:04; Admin Dose 16.66 MLS/HR; Start 09/10/16 at 16: 00 Total Parenteral Nutrition 1,000 ml @ 40 mls/hr Q24H IV ; Start 09/11/16 at 16: 00; Status Future Hold Dextrose/Sodium Chloride (D5-1/2ns) 1,000 ml @ 50 mls/hr Q20H IV Last administered on 09/13/16 14:35; Admin Dose 50 MLS/HR; Start 09/11/16 at 13:30 Acetaminophen (Tylenol Tab) 500 mg Q6H PO Last administered on 09/13/16 15:37 ; Admin Dose 500 MG; Start 09/12/16 at 09:00; Stop 09/16/16 at 08:59 Gabapentin (Neurontin) 200 mg 09,16 PO Last administered on 09/13/16 09:37; Admin Dose 200 MG; Start 09/13/16 at 09:00 Procedures Procedures cxr images reviewed No significant interval change. EVELYN RANKIN September 13, 2016 16:05
[2016-09-13] MEDS ORDERED: AMIODARONE 900 MG in DEXTROSE 5% 482 ML IV SCH (16:30)
[2016-09-13] MEDS: ATORVASTATIN 40 MG TAB PO SCH (20:32)
[2016-09-13] MEDS: GABAPENTIN 300 MG CAP PO SCH (20:32)
[2016-09-14] VITALS (86 sets, daily range): BP systolic 74–162; BP diastolic 25–123; PULSE 64–113; RESP 10–28
[2016-09-14] MEDS: INSULIN ASPART [NOVOLOG] 3 ML PEN SC SCH ×6 (01:00→20:59)
[2016-09-14] MEDS: HYDROmorphONE 1 MG/ML SYG IV PRN ×2 (02:35→09:25)
[2016-09-14] MEDS: ACETAMINOPHEN 500 MG TAB PO SCH ×4 (02:35→20:35)
[2016-09-14 06:12] LABS: ADD SCAN DIFF NO
[2016-09-14 06:13] LABS: ABNORMAL IP MESSAGE 1; HEMATOCRIT 32.8 % (37.0-47.0); HEMOGLOBIN 10.9 g/dl (12.0-16.0); LYMPHOCYTES # 0.5 10^3/ul (0.8-2.9); MEAN CORPUSCULAR HEMOGLOBIN 30.8 pg (29.0-33.0); MEAN CORPUSCULAR HGB CONC 33.2 g/dl (32.0-37.0); MEAN CORPUSCULAR VOLUME 92.7 fl (82.0-101.0); MEAN PLATELET VOLUME 10.4 fl (7.4-10.4); MONOCYTE # 0.2 10^3/ul (0.3-0.9); MONOCYTES % 2.7 % (0.0-11.0); NEUTROPHIL # 6.2 10^3/ul (1.6-7.5); PLATELET COUNT 259 10^3/UL (140-415); RED BLOOD COUNT 3.54 10^6/ul (4.20-5.40); RED CELL DISTRIBUTION WIDTH 14.8 % (11.5-14.5)
[2016-09-14 06:30] LABS: LYMPHOCYTES % 7.6 % (15.0-51.0)
[2016-09-14] MEDS: SEVELAMER CARBONATE 0.8 GM PKT PO SCH ×3 (07:49→17:43)
[2016-09-14] MEDS: HYDROCODONE/APAP (5/325) TAB PO PRN ×2 (07:53→17:51)
[2016-09-14] MEDS: INSULIN GLARGINE [LANtus] 3 ML PEN SC SCH ×2 (08:03→20:39)
[2016-09-14] MEDS: FENOFIBRATE 48 MG TAB PO SCH (08:05)
[2016-09-14] MEDS: FOLIC ACID 1 MG TAB PO SCH ×2 (08:05→20:35)
[2016-09-14] MEDS: GABAPENTIN 100 MG CAP PO SCH ×2 (08:05→17:49)
[2016-09-14] MEDS: FISH OIL 1,000 MG CAP PO SCH ×2 (08:05→20:35)
[2016-09-14] MEDS: METHYLPREDNISOLONE 40 MG INJ IV SCH (08:06)
[2016-09-14] MEDS: FAMOTIDINE 20 MG INJ IV SCH (08:06)
[2016-09-14] MEDS: LINAGLIPTIN 5 MG TABLET PO SCH (08:06)
[2016-09-14] MEDS: HEPARIN 5,000 UNIT/0.5 ML VIAL SC SCH ×2 (08:07→20:40)
--- NOTE | 2016-09-14 08:07 | CONS ---
Date/Time of Note Date/Time of Note DATE: 09/14/16 TIME: 08:06 Assessment/Plan Assessment/Plan Additional Assessment/Plan 1. CX spine fracture, stable, ? when to mobilize and get out of bed and ambulate. 2. CKD on HD, to be dialyzed today. Consultation Date/Type/Reason Admit Date/Time September 07, 2016 at 16:36 Initial Consult Date 09/08/16 Type of Consultation: cardiology Referring Provider: TOMER GARCIA MD Detailed Summary Respiratory: No shortness of breath Cardiovascular: No chest pain Gastrointestinal: no complaints Genitourinary: no complaints Musculoskeletal: neck pain (is moderate) Exam/Review of Systems Vital Signs Vitals Vital Signs Date Time Temp Pulse Resp B/P Pulse Ox O2 Delivery O2 Flow Rate FiO2 09/14/16 05:45 72 12 111/57 100 09/14/16 04:30 Nasal Cannula 09/14/16 04:00 99.1 09/13/16 23:23 2.0 09/13/16 04:10 30 Intake and Output 09/13/16 09/13/16 09/14/16 15:00 23:00 07:00 Intake Total 728.28 ml 361.66 ml 40 ml Balance 728.28 ml 361.66 ml 40 ml Exam Neck: other (collar in place) Respiratory: clear to auscultation Cardiovascular: regular rate and rhythm Gastrointestinal: soft Extremities: No edema Results Result Diagram: 09/14/16 0500 09/13/16 0500 Results 24 hrs Laboratory Tests Test 09/13/16 08:44 09/13/16 13:21 09/13/16 16:28 09/13/16 20:45 Bedside Glucose 112 124 106 96 Test 09/14/16 01:07 09/14/16 05:00 09/14/16 05:29 09/14/16 07:54 Bedside Glucose 125 146 130 White Blood Count 7.0 # Red Blood Count 3.54 L Hemoglobin 10.9 L Hematocrit 32.8 L Mean Corpuscular Volume 92.7 Mean Corpuscular Hemoglobin 30.8 Mean Corpuscular Hemoglobin Concent 33.2 Red Cell Distribution Width 14.8 H Platelet Count 259 # Mean Platelet Volume 10.4 Neutrophils % 89.0 H Lymphocytes % 7.6 L Monocytes % 2.7 Eosinophils % 0.0 Basophils % 0.0 Nucleated Red Blood Cells % 0.0 Neutrophils # 6.2 Lymphocytes # 0.5 L Monocytes # 0.2 L Eosinophils # 0.0 Basophils # 0.0 Nucleated Red Blood Cells # 0.0 Medications Medications Current Medications Acetaminophen/ Hydrocodone Bitart ([place] (5/325)) 1 tab Q6H PRN PO MODERATE PAIN LEVEL 4-6 Last administered on 09/14/16 07:53; Admin Dose 1 TAB; Start at 17:30 Acetaminophen/ Hydrocodone Bitart ([place] (5/325)) 2 tab Q6H PRN PO SEVERE PAIN LEVEL 7-10; Start 09/07/16 at 17:30 Docusate Sodium (Colace) 100 mg Q12H PRN PO CONSTIPATION; Start 09/07/16 at 17: 30 Sodium Biphosphate/ Sodium Phosphate (Fleet Enema) 133 ml DAILY PRN [place] CONSTIPATION; Start 09/07/16 at 17:30 Famotidine (Pepcid Iv) 20 mg DAILY IV Last administered on 09/13/16 09:34; Admin Dose 20 MG; Start 09/08/16 at 09:00 Heparin Sodium (Porcine) (Heparin (5000 Units/0.5 ml)) 5,000 unit Q12 SC Last administered on 09/13/16 20:48; Admin Dose 5,000 UNIT; Start 09/07/16 at 21:00 Folic Acid (Folic Acid) 1 mg BID PO Last administered on 09/13/16 20:33; Admin Dose 1 MG; Start 09/07/16 at 21:00 Metoprolol Tartrate (Lopressor) 12.5 mg BID PO Last administered on 09/13/16 20:33; Admin Dose 12.5 MG; Start 09/07/16 at 23:00 Fenofibrate (Tricor) 48 mg QAM PO Last administered on 09/13/16 09:58; Admin Dose 48 MG; Start 09/08/16 at 09:00 Linagliptin (Tradjenta) 5 mg DAILY PO Last administered on 09/13/16 09:58; Admin Dose 5 MG; Start 09/07/16 at 18:00 Insulin Glargine (Lantus) 2 unit BID@08,20 SC Last administered on 09/14/16 08 :03; Admin Dose 2 UNIT; Start 09/07/16 at 20:00 Fish Oil (Fish Oil) 2,000 mg BID PO Last administered on 09/13/16 20:32; Admin Dose 2,000 MG; Start 09/07/16 at 21:00 Salmeterol Xinafoate/ Fluticasone (Advair 250/50 Diskus) 1 inh BID INH Last administered on 09/13/16 20:41; Admin Dose 1 INH; Start 09/07/16 at 23:00 Atorvastatin Calcium (Lipitor) 40 mg QHS PO Last administered on 09/13/16 20: 32; Admin Dose 40 MG; Start 09/07/16 at 21:00 Gabapentin (Neurontin) 900 mg QHS PO Last administered on 09/13/16 20:32; Admin Dose 900 MG; Start 09/07/16 at 21:00 Miscellaneous Information 1 ea NOTE XX ; Start 09/07/16 at 18:00 Glucose (Glutose) 15 gm Q15M PRN PO DECREASED GLUCOSE; Start 09/07/16 at 18:00 Glucose (Glutose) 22.5 gm Q15M PRN PO DECREASED GLUCOSE; Start 09/07/16 at 18: 00 Dextrose (D50w Syringe) 25 ml Q15M PRN IV DECREASED GLUCOSE; Start 09/07/16 at 18:00 Dextrose (D50w Syringe) 50 ml Q15M PRN IV DECREASED GLUCOSE; Start 09/07/16 at 18:00 Glucagon (Glucagen) 1 mg Q15M PRN IM DECREASED GLUCOSE; Start 09/07/16 at 18:00 Glucose (Glutose) 15 gm Q15M PRN BUCCAL DECREASED GLUCOSE; Start 09/07/16 at 18 :00 Naloxone HCl (Narcan) 0.2 mg Q2M PRN IV DECREASED REPIRATORY RATE Last administered on 09/08/16 02:44; Admin Dose 0.2 MG; Start 09/08/16 at 02:30 Tramadol HCl 50 mg 50 mg Q8H PRN PO PAIN Last administered on 09/08/16 15:57; Admin Dose 50 MG; Start 09/08/16 at 16:00 Phenylephrine HCl/ Dextrose (Efraín-Syneph/D5W) 500 ml @ 75 mls/hr TITRATE IV Last administered on 09/13/16 11:24; Admin Dose 75 MLS/HR; Start 09/09/16 at 03 :00 Insulin Aspart (Novolog Insulin Pen) NOVOLOG *MILD* ALGORI... Q4 SC Last administered on 09/14/16 05:31; Admin Dose 1 UNIT; Start 09/09/16 at 05:00 Hydromorphone HCl (Dilaudid) 0.5 mg Q2H PRN IV PAIN Last administered on 02:35; Admin Dose 0.5 MG; Start 09/09/16 at 08:30 Methylprednisolone Sodium Succinate (Solu-Medrol) 10 mg QAM IV Last administered on 09/13/16 09:34; Admin Dose 10 MG; Start 09/10/16 at 11:30 Methylprednisolone Sodium Succinate 5 mg 5 mg QPM IV Last administered on 20:33; Admin Dose 5 MG; Start 09/10/16 at 21:00 Total Parenteral Nutrition 1,000 ml @ 40 mls/hr Q24H IV ; Start 09/11/16 at 16: 00; Status Future Hold Dextrose/Sodium Chloride (D5-1/2ns) 1,000 ml @ 50 mls/hr Q20H IV Last administered on 09/13/16 20:39; Admin Dose 50 MLS/HR; Start 09/11/16 at 13:30 Acetaminophen (Tylenol Tab) 500 mg Q6H PO Last administered on 09/14/16 02:35 ; Admin Dose 500 MG; Start 09/12/16 at 09:00; Stop 09/16/16 at 08:59 Gabapentin 200 mg 200 mg ,16 PO Last administered on 09/13/16 16:29; Admin Dose 200 MG; Start 09/13/16 at 09:00 Amiodarone HCl/ Dextrose (Cordarone Iv/ D5W) 500 ml @ 8.33 mls/hr Q24H IV Last administered on 09/13/16 20:39; Admin Dose 8.33 MLS/HR; Start 09/13/16 at 16:43 ARISTIDES WATKINS MD September 14, 2016 08:07
[2016-09-14] MEDS: SALMETEROL/FLUTICASONE 250/50 INHA INH SCH ×2 (08:09→20:36)
--- NOTE | 2016-09-14 08:55 | CONS ---
Date/Time of Note Date/Time of Note DATE: 09/14/16 TIME: 08:51 Assessment/Plan Assessment/Plan Chief Complaint/Hosp Course Impression: # Atrial Fibrillation- non valvular, now rate controlled. anticoag with Coumadin at baseline now off give c2 fxr, fall # s/p TAVR- stable # s/p fall with C2 cervical fracture # COPD on BIPAP # ESRD on iHD # HTN- currently off meds, hypotensive Recommendations: - bp remains variable on lower side, currently on low dose phenylephrine. unable to add bb/ccb for rate control though rate current stably - switch to po amiodarone for rate control given hypotensive, ok to switch to bb /ccb once bp stable - consider digoxin if bp marginal and rates are uncontrolled, however given iHD would be hesitant to add at this time - off anticoag given c2 fxr and fall - fluid mgmt with iHD per renal - will follow Problems: Consultation Date/Type/Reason Admit Date/Time September 07, 2016 at 16:36 Type of Consultation: cardiology Referring Provider: TOMER GARCIA MD 24 HR Interval Summary Free Text/Dictation no acute events. pt remains on low dose phenylephrine. denies any dizziness, lightheadedness. off o2, breathing comfortably. pt denies palpitations, dizziness. lightheadedness. tele reviewed: afib 80s-90s. Detailed Summary Respiratory: no complaints Cardiovascular: no complaints Gastrointestinal: no complaints Exam/Review of Systems Vital Signs Vitals Vital Signs Date Time Temp Pulse Resp B/P Pulse Ox O2 Delivery O2 Flow Rate FiO2 09/14/16 08:30 86 19 130/62 100 09/14/16 08:00 Room Air 09/14/16 07:30 98.0 09/14/16 07:00 2.0 09/13/16 04:10 30 Intake and Output 09/13/16 09/13/16 09/14/16 14:59 22:59 06:59 Intake Total 709.53 ml 447.07 ml 40 ml Balance 709.53 ml 447.07 ml 40 ml Exam Constitutional: alert, oriented Neck: other (in ccollar) Respiratory: clear to auscultation Cardiovascular: edema, other (irregualrly irregular, nl s1s2, rate controlled ii/vi vsem) Gastrointestinal: non-tender, soft Musculoskeletal: nl extremities to inspection Extremities: normal pulses, other (tender to palpation) 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 Results Result Diagram: 09/14/16 0500 09/13/16 0500 Results 24 hrs Laboratory Tests Test 09/13/16 13:21 09/13/16 16:28 09/13/16 20:45 09/14/16 01:07 Bedside Glucose 124 106 96 125 Test 09/14/16 05:00 09/14/16 05:29 09/14/16 07:54 White Blood Count 7.0 # Red Blood Count 3.54 L Hemoglobin 10.9 L Hematocrit 32.8 L Mean Corpuscular Volume 92.7 Mean Corpuscular Hemoglobin 30.8 Mean Corpuscular Hemoglobin Concent 33.2 Red Cell Distribution Width 14.8 H Platelet Count 259 # Mean Platelet Volume 10.4 Neutrophils % 89.0 H Lymphocytes % 7.6 L Monocytes % 2.7 Eosinophils % 0.0 Basophils % 0.0 Nucleated Red Blood Cells % 0.0 Neutrophils # 6.2 Lymphocytes # 0.5 L Monocytes # 0.2 L Eosinophils # 0.0 Basophils # 0.0 Nucleated Red Blood Cells # 0.0 Bedside Glucose 146 130 Medications Medications Current Medications Acetaminophen/ Hydrocodone Bitart ([place] (5/325)) 1 tab Q6H PRN PO MODERATE PAIN LEVEL 4-6 Last administered on 09/14/16 07:53; Admin Dose 1 TAB; Start at 17:30 Acetaminophen/ Hydrocodone Bitart ([place] (5/325)) 2 tab Q6H PRN PO SEVERE PAIN LEVEL 7-10; Start 09/07/16 at 17:30 Docusate Sodium (Colace) 100 mg Q12H PRN PO CONSTIPATION; Start 09/07/16 at 17: 30 Sodium Biphosphate/ Sodium Phosphate (Fleet Enema) 133 ml DAILY PRN [place] CONSTIPATION; Start 09/07/16 at 17:30 Famotidine (Pepcid Iv) 20 mg DAILY IV Last administered on 09/14/16 08:06; Admin Dose 20 MG; Start 09/08/16 at 09:00 Heparin Sodium (Porcine) (Heparin (5000 Units/0.5 ml)) 5,000 unit Q12 SC Last administered on 09/14/16 08:07; Admin Dose 5,000 UNIT; Start 09/07/16 at 21:00 Folic Acid (Folic Acid) 1 mg BID PO Last administered on 09/14/16 08:05; Admin Dose 1 MG; Start 09/07/16 at 21:00 Metoprolol Tartrate (Lopressor) 12.5 mg BID PO Last administered on 09/13/16 20:33; Admin Dose 12.5 MG; Start 09/07/16 at 23:00 Fenofibrate (Tricor) 48 mg QAM PO Last administered on 09/14/16 08:05; Admin Dose 48 MG; Start 09/08/16 at 09:00 Linagliptin (Tradjenta) 5 mg DAILY PO Last administered on 09/14/16 08:06; Admin Dose 5 MG; Start 09/07/16 at 18:00 Insulin Glargine (Lantus) 2 unit BID@08,20 SC Last administered on 09/14/16 08 :03; Admin Dose 2 UNIT; Start 09/07/16 at 20:00 Fish Oil (Fish Oil) 2,000 mg BID PO Last administered on 09/14/16 08:05; Admin Dose 2,000 MG; Start 09/07/16 at 21:00 Salmeterol Xinafoate/ Fluticasone (Advair 250/50 Diskus) 1 inh BID INH Last administered on 09/14/16 08:09; Admin Dose 1 INH; Start 09/07/16 at 23:00 Atorvastatin Calcium (Lipitor) 40 mg QHS PO Last administered on 09/13/16 20: 32; Admin Dose 40 MG; Start 09/07/16 at 21:00 Gabapentin (Neurontin) 900 mg QHS PO Last administered on 09/13/16 20:32; Admin Dose 900 MG; Start 09/07/16 at 21:00 Miscellaneous Information 1 ea NOTE XX ; Start 09/07/16 at 18:00 Glucose (Glutose) 15 gm Q15M PRN PO DECREASED GLUCOSE; Start 09/07/16 at 18:00 Glucose (Glutose) 22.5 gm Q15M PRN PO DECREASED GLUCOSE; Start 09/07/16 at 18: 00 Dextrose (D50w Syringe) 25 ml Q15M PRN IV DECREASED GLUCOSE; Start 09/07/16 at 18:00 Dextrose (D50w Syringe) 50 ml Q15M PRN IV DECREASED GLUCOSE; Start 09/07/16 at 18:00 Glucagon (Glucagen) 1 mg Q15M PRN IM DECREASED GLUCOSE; Start 09/07/16 at 18:00 Glucose (Glutose) 15 gm Q15M PRN BUCCAL DECREASED GLUCOSE; Start 09/07/16 at 18 :00 Naloxone HCl (Narcan) 0.2 mg Q2M PRN IV DECREASED REPIRATORY RATE Last administered on 09/08/16 02:44; Admin Dose 0.2 MG; Start 09/08/16 at 02:30 Tramadol HCl 50 mg 50 mg Q8H PRN PO PAIN Last administered on 09/08/16 15:57; Admin Dose 50 MG; Start 09/08/16 at 16:00 Phenylephrine HCl/ Dextrose (Efraín-Syneph/D5W) 500 ml @ 75 mls/hr TITRATE IV Last administered on 09/13/16 11:24; Admin Dose 75 MLS/HR; Start 09/09/16 at 03 :00 Insulin Aspart (Novolog Insulin Pen) NOVOLOG *MILD* ALGORI... Q4 SC Last administered on 09/14/16 05:31; Admin Dose 1 UNIT; Start 09/09/16 at 05:00 Hydromorphone HCl (Dilaudid) 0.5 mg Q2H PRN IV PAIN Last administered on 02:35; Admin Dose 0.5 MG; Start 09/09/16 at 08:30 Methylprednisolone Sodium Succinate (Solu-Medrol) 10 mg QAM IV Last administered on 09/14/16 08:06; Admin Dose 10 MG; Start 09/10/16 at 11:30 Methylprednisolone Sodium Succinate 5 mg 5 mg QPM IV Last administered on 20:33; Admin Dose 5 MG; Start 09/10/16 at 21:00 Total Parenteral Nutrition 1,000 ml @ 40 mls/hr Q24H IV ; Start 09/11/16 at 16: 00; Status Future Hold Dextrose/Sodium Chloride (D5-1/2ns) 1,000 ml @ 50 mls/hr Q20H IV Last administered on 09/13/16 20:39; Admin Dose 50 MLS/HR; Start 09/11/16 at 13:30 Acetaminophen (Tylenol Tab) 500 mg Q6H PO Last administered on 09/14/16 08:06 ; Admin Dose 500 MG; Start 09/12/16 at 09:00; Stop 09/16/16 at 08:59 Gabapentin 200 mg 200 mg 16 PO Last administered on 09/14/16 08:05; Admin Dose 200 MG; Start 09/13/16 at 09:00 Amiodarone HCl/ Dextrose (Cordarone Iv/ D5W) 500 ml @ 8.33 mls/hr Q24H IV Last administered on 09/13/16 20:39; Admin Dose 8.33 MLS/HR; Start 09/13/16 at 16:43 Procedures Procedures provider notes reviewed in emr EVELYN RANKIN September 14, 2016 08:55
[2016-09-14] MEDS: METOPROLOL 25 MG TAB PO SCH ×2 (09:00→20:59)
--- NOTE | 2016-09-14 09:38 | CONS ---
Date/Time of Note Date/Time of Note DATE: 09/14/16 TIME: 09:36 Consult Date/Type/Reason Admit Date/Time September 07, 2016 at 16:36 Initial Consult Date 09/08/16 Type of Consultation: Pulmonary Ordering Provider: TOMER GARCIA MD Subjective Patient considerably improved today awake alert and oriented off BiPAP Objective Vital Signs Date Time Temp Pulse Resp B/P Pulse Ox O2 Delivery O2 Flow Rate FiO2 09/14/16 09:15 89 09/14/16 08:30 19 130/62 100 09/14/16 08:00 Room Air 09/14/16 07:30 98.0 09/14/16 07:00 2.0 09/13/16 04:10 30 Intake and Output 09/13/16 09/13/16 09/14/16 15:00 23:00 07:00 Intake Total 728.28 ml 361.66 ml 40 ml Balance 728.28 ml 361.66 ml 40 ml Exam GENERAL: Elderly lady with C-spine collar VITAL SIGNS: per chart NECK: Supple. No JVD or lymphadenopathy. CARDIAC EXAM: S1, S2. No added sounds or murmurs. CHEST: clear bilaterally, No added sounds, rales or wheezes ABDOMEN: Soft, nontender. No guarding or rebound. EXTREMITIES: No cyanosis, clubbing or edema. NEUROLOGIC: Generalized weakness. No focal deficits. Results/Medications Result Diagram: 09/14/16 0500 09/13/16 0500 Results 24 hrs Laboratory Tests Test 09/13/16 13:21 09/13/16 16:28 09/13/16 20:45 09/14/16 01:07 Bedside Glucose 124 106 96 125 Test 09/14/16 05:00 09/14/16 05:29 09/14/16 07:54 White Blood Count 7.0 # Red Blood Count 3.54 L Hemoglobin 10.9 L Hematocrit 32.8 L Mean Corpuscular Volume 92.7 Mean Corpuscular Hemoglobin 30.8 Mean Corpuscular Hemoglobin Concent 33.2 Red Cell Distribution Width 14.8 H Platelet Count 259 # Mean Platelet Volume 10.4 Neutrophils % 89.0 H Lymphocytes % 7.6 L Monocytes % 2.7 Eosinophils % 0.0 Basophils % 0.0 Nucleated Red Blood Cells % 0.0 Neutrophils # 6.2 Lymphocytes # 0.5 L Monocytes # 0.2 L Eosinophils # 0.0 Basophils # 0.0 Nucleated Red Blood Cells # 0.0 Bedside Glucose 146 130 Medications Current Medications Acetaminophen/ Hydrocodone Bitart ([place] (5/325)) 1 tab Q6H PRN PO MODERATE PAIN LEVEL 4-6 Last administered on 09/14/16 07:53; Admin Dose 1 TAB; Start at 17:30 Acetaminophen/ Hydrocodone Bitart ([place] (5/325)) 2 tab Q6H PRN PO SEVERE PAIN LEVEL 7-10; Start 09/07/16 at 17:30 Docusate Sodium (Colace) 100 mg Q12H PRN PO CONSTIPATION; Start 09/07/16 at 17: 30 Sodium Biphosphate/ Sodium Phosphate (Fleet Enema) 133 ml DAILY PRN [place] CONSTIPATION; Start 09/07/16 at 17:30 Famotidine (Pepcid Iv) 20 mg DAILY IV Last administered on 09/14/16 08:06; Admin Dose 20 MG; Start 09/08/16 at 09:00 Heparin Sodium (Porcine) (Heparin (5000 Units/0.5 ml)) 5,000 unit Q12 SC Last administered on 09/14/16 08:07; Admin Dose 5,000 UNIT; Start 09/07/16 at 21:00 Folic Acid (Folic Acid) 1 mg BID PO Last administered on 09/14/16 08:05; Admin Dose 1 MG; Start 09/07/16 at 21:00 Metoprolol Tartrate (Lopressor) 12.5 mg BID PO Last administered on 09/13/16 20:33; Admin Dose 12.5 MG; Start 09/07/16 at 23:00 Fenofibrate (Tricor) 48 mg QAM PO Last administered on 09/14/16 08:05; Admin Dose 48 MG; Start 09/08/16 at 09:00 Linagliptin (Tradjenta) 5 mg DAILY PO Last administered on 09/14/16 08:06; Admin Dose 5 MG; Start 09/07/16 at 18:00 Insulin Glargine (Lantus) 2 unit BID@08,20 SC Last administered on 09/14/16 08 :03; Admin Dose 2 UNIT; Start 09/07/16 at 20:00 Fish Oil (Fish Oil) 2,000 mg BID PO Last administered on 09/14/16 08:05; Admin Dose 2,000 MG; Start 09/07/16 at 21:00 Salmeterol Xinafoate/ Fluticasone (Advair 250/50 Diskus) 1 inh BID INH Last administered on 09/14/16 08:09; Admin Dose 1 INH; Start 09/07/16 at 23:00 Atorvastatin Calcium (Lipitor) 40 mg QHS PO Last administered on 09/13/16 20: 32; Admin Dose 40 MG; Start 09/07/16 at 21:00 Gabapentin (Neurontin) 900 mg QHS PO Last administered on 09/13/16 20:32; Admin Dose 900 MG; Start 09/07/16 at 21:00 Miscellaneous Information 1 ea NOTE XX ; Start 09/07/16 at 18:00 Glucose (Glutose) 15 gm Q15M PRN PO DECREASED GLUCOSE; Start 09/07/16 at 18:00 Glucose (Glutose) 22.5 gm Q15M PRN PO DECREASED GLUCOSE; Start 09/07/16 at 18: 00 Dextrose (D50w Syringe) 25 ml Q15M PRN IV DECREASED GLUCOSE; Start 09/07/16 at 18:00 Dextrose (D50w Syringe) 50 ml Q15M PRN IV DECREASED GLUCOSE; Start 09/07/16 at 18:00 Glucagon (Glucagen) 1 mg Q15M PRN IM DECREASED GLUCOSE; Start 09/07/16 at 18:00 Glucose (Glutose) 15 gm Q15M PRN BUCCAL DECREASED GLUCOSE; Start 09/07/16 at 18 :00 Naloxone HCl (Narcan) 0.2 mg Q2M PRN IV DECREASED REPIRATORY RATE Last administered on 09/08/16 02:44; Admin Dose 0.2 MG; Start 09/08/16 at 02:30 Tramadol HCl 50 mg 50 mg Q8H PRN PO PAIN Last administered on 09/08/16 15:57; Admin Dose 50 MG; Start 09/08/16 at 16:00 Phenylephrine HCl/ Dextrose (Efraín-Syneph/D5W) 500 ml @ 75 mls/hr TITRATE IV Last administered on 09/13/16 11:24; Admin Dose 75 MLS/HR; Start 09/09/16 at 03 :00 Insulin Aspart (Novolog Insulin Pen) NOVOLOG *MILD* ALGORI... Q4 SC Last administered on 09/14/16 05:31; Admin Dose 1 UNIT; Start 09/09/16 at 05:00 Hydromorphone HCl (Dilaudid) 0.5 mg Q2H PRN IV PAIN Last administered on 09:25; Admin Dose 0.5 MG; Start 09/09/16 at 08:30 Methylprednisolone Sodium Succinate (Solu-Medrol) 10 mg QAM IV Last administered on 09/14/16 08:06; Admin Dose 10 MG; Start 09/10/16 at 11:30 Methylprednisolone Sodium Succinate 5 mg 5 mg QPM IV Last administered on 20:33; Admin Dose 5 MG; Start 09/10/16 at 21:00 Total Parenteral Nutrition 1,000 ml @ 40 mls/hr Q24H IV ; Start 09/11/16 at 16: 00; Status Future Hold Dextrose/Sodium Chloride (D5-1/2ns) 1,000 ml @ 50 mls/hr Q20H IV Last administered on 09/13/16 20:39; Admin Dose 50 MLS/HR; Start 09/11/16 at 13:30 Acetaminophen (Tylenol Tab) 500 mg Q6H PO Last administered on 09/14/16 08:06 ; Admin Dose 500 MG; Start 09/12/16 at 09:00; Stop 09/16/16 at 08:59 Gabapentin 200 mg 200 mg 09,16 PO Last administered on 09/14/16 08:05; Admin Dose 200 MG; Start 09/13/16 at 09:00 Amiodarone HCl/ Dextrose (Cordarone Iv/ D5W) 500 ml @ 8.33 mls/hr Q24H IV Last administered on 09/13/16 20:39; Admin Dose 8.33 MLS/HR; Start 09/13/16 at 16:43 Amiodarone HCl (Cordarone) 200 mg DAILY GTB ; Start 09/14/16 at 12:00 Assessment/Plan Chief Complaint/Hosp Course IMP: 1. Acute on chronic hypercapnic respiratory failure: multifactorial in etiology. Possible underlying OSH or COPD. Doubt significant [id number] diaphragmatic weakness 2. C-spine injury--high-risk intubation if needed. 3. s/p TAVR. 4. End-stage renal disease, on hemodialysis. 5. Pulmonary sarcoidosis, patient on long-term prednisone use. 6. History of hypertension. 7. Afib with RVR 7. Coronary artery disease. Status post PTCA in the past. 8. CHF RECS: 1. Continue CS 2. PICC line care 3. Advance diet as tolerated 4. Aspiration precautions 5. DC CPT per patient's request 6. Titrate FiO2 to keep SpO2 at 88-92% 7. Continue HD/UF 8. Monitor blood gases closely Should be to stable for transfer to telemetry later today Problems: DEBRA HERNÁNDEZ MD, [facility] September 14, 2016 09:38
[2016-09-14] MEDS: traMADol 50 MG TAB PO PRN (10:48)
[2016-09-14] MEDS ORDERED: AMIODARONE 200 MG TAB GTB SCH (12:00)
--- NOTE | 2016-09-14 17:35 | PN ---
Date/Time of Note Date/Time of Note DATE: 09/14/16 TIME: 17:32 Assessment/Plan VTE Prophylaxis VTE Prophylaxis Intervention: heparin Lines/Catheters IV Catheter Type (from [facility]): PICC Line Central line still needed: Yes Urinary Cath still in place: No Assessment/Plan Problems: (1) Atrial fibrillation Status: Chronic Comment: She remains in atrial fibrillation rate controlled with amiodarone. Due to her blood pressure we cannot use beta-viet. We may add in digoxin if needed. Please note renal dosing for her end-stage renal disease Qualifiers: Atrial fibrillation type: chronic Qualified Code: I48.2 - Chronic atrial fibrillation (2) C2 cervical fracture Status: Acute Comment: For the first time she is actually much more vibrant alert and eating. She is having her family help feed her. Because of this advancement and improvement status I do not feel she needs a feeding tube at this time. This is a welcome change in clinical course. Physical therapy will evaluate her for getting her up and possibly transferring to a chair. Qualifiers: Encounter type: initial encounter Fracture type: closed Fracture morphology: other dens Fracture alignment: displaced Qualified Code: S12.120A - Other closed displaced odontoid fracture, initial encounter (3) COPD (chronic obstructive pulmonary disease) Status: Chronic Comment: Stable and compensated on medications. 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 (6) Diabetes mellitus type 2 in obese Status: Chronic Comment: Well-controlled on current (7) Hypertension associated with chronic kidney disease due to type 2 diabetes mellitus Status: Chronic Comment: Normotensive at the present time (8) Hyperlipidemia Status: Chronic Comment: Noted and on statin therapy Qualifiers: Hyperlipidemia type: pure hypercholesterolemia Qualified Code: E78.00 - Pure hypercholesterolemia (9) Obstructive sleep apnea Status: Chronic Comment: Nocturnal BiPAP Subjective 24 Hr Interval Summary Free Text/Dictation Patient for the first time is extremely verbal today. Speaking coherently Constitutional: no complaints Respiratory: no complaints Cardiovascular: no complaints Gastrointestinal: no complaints Genitourinary: no complaints Exam/Review of Systems Vital Signs Vitals Vital Signs Date Time Temp Pulse Resp B/P Pulse Ox O2 Delivery O2 Flow Rate FiO2 09/14/16 16:00 89 17 106/58 95 Room Air 09/14/16 12:00 98.2 09/14/16 07:00 2.0 09/13/16 04:10 30 Intake and Output 09/13/16 09/13/16 09/14/16 15:00 23:00 07:00 Intake Total 728.28 ml 361.66 ml 105.83 ml Output Total 0 ml Balance 728.28 ml 361.66 ml 105.83 ml Exam Constitutional: alert, oriented Neck: non-tender, supple Cardiovascular: irregular rhythm, nl pulses Gastrointestinal: nl liver, spleen, non-tender, soft Results Result Diagram: 09/14/16 0500 09/13/16 0500 Results 24 hrs Laboratory Tests Test 09/13/16 20:45 09/14/16 01:07 09/14/16 05:00 09/14/16 05:29 Bedside Glucose 96 125 146 White Blood Count 7.0 # Red Blood Count 3.54 L Hemoglobin 10.9 L Hematocrit 32.8 L Mean Corpuscular Volume 92.7 Mean Corpuscular Hemoglobin 30.8 Mean Corpuscular Hemoglobin Concent 33.2 Red Cell Distribution Width 14.8 H Platelet Count 259 # Mean Platelet Volume 10.4 Neutrophils % 89.0 H Lymphocytes % 7.6 L Monocytes % 2.7 Eosinophils % 0.0 Basophils % 0.0 Nucleated Red Blood Cells % 0.0 Neutrophils # 6.2 Lymphocytes # 0.5 L Monocytes # 0.2 L Eosinophils # 0.0 Basophils # 0.0 Nucleated Red Blood Cells # 0.0 Test 09/14/16 07:54 09/14/16 11:58 Bedside Glucose 130 148 Medications Medications Current Medications Acetaminophen/ Hydrocodone Bitart ([place] (5/325)) 1 tab Q6H PRN PO MODERATE PAIN LEVEL 4-6 Last administered on 09/14/16t 07:53; Admin Dose 1 TAB; Start at 17:30 Acetaminophen/ Hydrocodone Bitart ([place] (5/325)) 2 tab Q6H PRN PO SEVERE PAIN LEVEL 7-10; Start 09/07/16 at 17:30 Docusate Sodium (Colace) 100 mg Q12H PRN PO CONSTIPATION; Start 09/07/16 at 17: 30 Sodium Biphosphate/ Sodium Phosphate (Fleet Enema) 133 ml DAILY PRN [place] CONSTIPATION; Start 09/07/16 at 17:30 Famotidine (Pepcid Iv) 20 mg DAILY IV Last administered on 09/14/16 08:06; Admin Dose 20 MG; Start 09/08/16 at 09:00 Heparin Sodium (Porcine) (Heparin (5000 Units/0.5 ml)) 5,000 unit Q12 SC Last administered on 09/14/16 08:07; Admin Dose 5,000 UNIT; Start 09/07/16 at 21:00 Folic Acid (Folic Acid) 1 mg BID PO Last administered on 09/14/16 08:05; Admin Dose 1 MG; Start 09/07/16 at 21:00 Metoprolol Tartrate (Lopressor) 12.5 mg BID PO Last administered on 09/13/16 20:33; Admin Dose 12.5 MG; Start 09/07/16 at 23:00 Fenofibrate (Tricor) 48 mg QAM PO Last administered on 09/14/16 08:05; Admin Dose 48 MG; Start 09/08/16 at 09:00 Linagliptin (Tradjenta) 5 mg DAILY PO Last administered on 09/14/16 08:06; Admin Dose 5 MG; Start 09/07/16 at 18:00 Insulin Glargine (Lantus) 2 unit BID@08,20 SC Last administered on 09/14/16 08 :03; Admin Dose 2 UNIT; Start 09/07/16 at 20:00 Fish Oil (Fish Oil) 2,000 mg BID PO Last administered on 09/14/16 08:05; Admin Dose 2,000 MG; Start 09/07/16 at 21:00 Salmeterol Xinafoate/ Fluticasone (Advair 250/50 Diskus) 1 inh BID INH Last administered on 09/14/16 08:09; Admin Dose 1 INH; Start 09/07/16 at 23:00 Atorvastatin Calcium (Lipitor) 40 mg QHS PO Last administered on 09/13/16 20: 32; Admin Dose 40 MG; Start 09/07/16 at 21:00 Gabapentin (Neurontin) 900 mg QHS PO Last administered on 09/13/16 20:32; Admin Dose 900 MG; Start 09/07/16 at 21:00 Miscellaneous Information 1 ea NOTE XX ; Start 09/07/16 at 18:00 Glucose (Glutose) 15 gm Q15M PRN PO DECREASED GLUCOSE; Start 09/07/16 at 18:00 Glucose (Glutose) 22.5 gm Q15M PRN PO DECREASED GLUCOSE; Start 09/07/16 at 18: 00 Dextrose (D50w Syringe) 25 ml Q15M PRN IV DECREASED GLUCOSE; Start 09/07/16 at 18:00 Dextrose (D50w Syringe) 50 ml Q15M PRN IV DECREASED GLUCOSE; Start 09/07/16 at 18:00 Glucagon (Glucagen) 1 mg Q15M PRN IM DECREASED GLUCOSE; Start 09/07/16 at 18:00 Glucose (Glutose) 15 gm Q15M PRN BUCCAL DECREASED GLUCOSE; Start 09/07/16 at 18 :00 Naloxone HCl (Narcan) 0.2 mg Q2M PRN IV DECREASED REPIRATORY RATE Last administered on 09/08/16 02:44; Admin Dose 0.2 MG; Start 09/08/16 at 02:30 Tramadol HCl 50 mg 50 mg Q8H PRN PO PAIN Last administered on 09/14/16 10:48; Admin Dose 50 MG; Start 09/08/16 at 16:00 Phenylephrine HCl/ Dextrose (Efrían-Syneph/D5W) 500 ml @ 75 mls/hr TITRATE IV Last administered on 09/13/16 11:24; Admin Dose 75 MLS/HR; Start 09/09/16 at 03 :00 Insulin Aspart (Novolog Insulin Pen) NOVOLOG *MILD* ALGORI... Q4 SC Last administered on 09/14/16 12:02; Admin Dose 1 UNIT; Start 09/09/16 at 05:00 Hydromorphone HCl (Dilaudid) 0.5 mg Q2H PRN IV PAIN Last administered on 09:25; Admin Dose 0.5 MG; Start 09/09/16 at 08:30 Methylprednisolone Sodium Succinate (Solu-Medrol) 10 mg QAM IV Last administered on 09/14/16 08:06; Admin Dose 10 MG; Start 09/10/16 at 11:30 Methylprednisolone Sodium Succinate 5 mg 5 mg QPM IV Last administered on 20:33; Admin Dose 5 MG; Start 09/10/16 at 21:00 Total Parenteral Nutrition 1,000 ml @ 40 mls/hr Q24H IV ; Start 09/11/16 at 16: 00; Status Future Hold Dextrose/Sodium Chloride (D5-1/2ns) 1,000 ml @ 50 mls/hr Q20H IV Last administered on 09/13/16 20:39; Admin Dose 50 MLS/HR; Start 09/11/16 at 13:30 Acetaminophen (Tylenol Tab) 500 mg Q6H PO Last administered on 09/14/16 15:37 ; Admin Dose 500 MG; Start 09/12/16 at 09:00; Stop 09/16/16 at 08:59 Gabapentin 200 mg 200 mg 16 PO Last administered on 09/14/16 08:05; Admin Dose 200 MG; Start 09/13/16 at 09:00 Amiodarone HCl/ Dextrose (Cordarone Iv/ D5W) 500 ml @ 8.33 mls/hr Q24H IV Last administered on 09/13/16 20:39; Admin Dose 8.33 MLS/HR; Start 09/13/16 at 16:43 Amiodarone HCl (Cordarone) 200 mg DAILY GTB Last administered on 09/14/16 11: 55; Admin Dose 200 MG; Start 09/14/16 at 12:00 TOMER GARCIA MD September 14, 2016 17:35
[2016-09-14] MEDS: DOCUSATE SODIUM 100 MG CAP PO PRN (17:49)
[2016-09-14] MEDS ORDERED: PHENYLephrine 20MG IN 250 ML 250 ML IV SCH (20:08)
[2016-09-14] MEDS ORDERED: PHENYLephrine 20MG IN 250 ML 250 ML ONE (20:09)
[2016-09-14] MEDS: GABAPENTIN 300 MG CAP PO SCH (20:35)
[2016-09-14] MEDS: ATORVASTATIN 40 MG TAB PO SCH (20:35)
[2016-09-15] VITALS (93 sets, daily range): BP systolic 55–156; BP diastolic 21–130; PULSE 74–113; RESP 9–25
[2016-09-15] MEDS: predniSONE 1 MG TAB PO SCH ×2 (00:30→20:29)
[2016-09-15] MEDS: HYDROCODONE/APAP (5/325) TAB PO PRN ×2 (00:31→22:41)
[2016-09-15] MEDS: INSULIN ASPART [NOVOLOG] 3 ML PEN SC SCH ×6 (00:34→20:38)
[2016-09-15] MEDS: ACETAMINOPHEN 500 MG TAB PO SCH ×4 (03:00→21:00)
[2016-09-15 05:02] LABS: ADD SCAN DIFF NO
[2016-09-15 05:14] LABS: BASOPHILS % 0.1 % (0.0-2.0); EOSINOPHILS % 0.5 % (0.0-7.0); HEMATOCRIT 32.9 % (37.0-47.0); HEMOGLOBIN 10.7 g/dl (12.0-16.0); LYMPHOCYTES # 1.9 10^3/ul (0.8-2.9); LYMPHOCYTES % 23.2 % (15.0-51.0); MEAN CORPUSCULAR HEMOGLOBIN 29.5 pg (29.0-33.0); MEAN CORPUSCULAR HGB CONC 32.5 g/dl (32.0-37.0); MEAN CORPUSCULAR VOLUME 90.6 fl (82.0-101.0); MEAN PLATELET VOLUME 10.7 fl (7.4-10.4); MONOCYTE # 0.7 10^3/ul (0.3-0.9); MONOCYTES % 8.6 % (0.0-11.0); NEUTROPHIL # 5.4 10^3/ul (1.6-7.5); PLATELET COUNT 240 10^3/UL (140-415); RED BLOOD COUNT 3.63 10^6/ul (4.20-5.40); WHITE BLOOD COUNT 8.1 10^3/ul (4.8-10.8)
[2016-09-15 05:35] LABS: CALCIUM 8.6 mg/dl (8.4-10.2); PHOSPHORUS 8.1 mg/dl (2.5-4.9); POTASSIUM 4.1 mmol/L (3.5-5.1)
[2016-09-15 05:54] LABS: CREATININE 6.4 mg/dl (0.44-1.00)
[2016-09-15] MEDS: SEVELAMER CARBONATE 0.8 GM PKT PO SCH ×3 (07:31→17:30)
[2016-09-15] MEDS: HYDROmorphONE 1 MG/ML SYG IV PRN (08:02)
--- NOTE | 2016-09-15 08:14 | PN ---
Date/Time of Note Date/Time of Note DATE: 09/15/16 TIME: 08:11 Assessment/Plan VTE Prophylaxis VTE Prophylaxis Intervention: heparin Lines/Catheters IV Catheter Type (from Nrs): PICC Line Central line still needed: Yes Urinary Cath still in place: No Assessment/Plan Problems: (1) C2 cervical fracture Status: Acute Comment: She remains in a hard c-collar. She actually is making some very slow gradual progress. However she did not eat well for dinner yesterday. I am still right on the edge of needing to put in a feeding tube. For now we will continue to observe her. Continue with pain management and recommendations as per neurosurgery. Qualifiers: Encounter type: initial encounter Fracture type: closed Fracture morphology: other dens Fracture alignment: displaced Qualified Code: S12.120A - Other closed displaced odontoid fracture, initial encounter (2) COPD (chronic obstructive pulmonary disease) Status: Chronic Comment: Doing relatively stable. Please note the sleep apnea is a compounding feature Qualifiers: COPD type: emphysema Emphysema type: panlobular Qualified Code: J43.1 - Panlobular emphysema (3) Sarcoidosis Status: Chronic Comment: Noted. Stable. On steroids (4) ESRD (end stage renal disease) on dialysis Status: Chronic Comment: Continues with hemodialysis. I still believe she is actually slightly hypervolemic. Nephrology is managing (5) Diabetes mellitus type 2 in obese Status: Chronic Comment: Well-controlled on the current regimen. (6) Obstructive sleep apnea Status: Chronic Comment: She refuses a nocturnal BiPAP last night. Re-counseled (7) Diastolic dysfunction Status: Chronic Comment: Stable and noted. (8) Status post transcatheter aortic valve replacement (TAVR) using bioprosthesis Status: Acute Comment: Noted and stable. Subjective 24 Hr Interval Summary Free Text/Dictation Patient remains much more verbal. She did not eat well for dinner last night and complains of episodes of significant pain. She also has some constipation Constitutional: no complaints (No fevers chills or sweats) Respiratory: no complaints Cardiovascular: no complaints Gastrointestinal: constipation Genitourinary: no complaints Musculoskeletal: neck pain, restricted range of motion (Wearing c-collar) Exam/Review of Systems Vital Signs Vitals Vital Signs Date Time Temp Pulse Resp B/P Pulse Ox O2 Delivery O2 Flow Rate FiO2 09/15/16 06:30 82 11 124/43 99 09/15/16 06:00 Nasal Cannula 2.0 09/15/16 04:00 98.1 09/13/16 04:10 30 Intake and Output 09/14/16 09/14/16 09/15/16 15:00 23:00 07:00 Intake Total 1615.72 ml 405 ml 267.75 ml Output Total 3500 ml 0 ml 0 ml Balance -1884.28 ml 405 ml 267.75 ml Exam Constitutional: alert, oriented Respiratory: clear to auscultation, normal air movement Cardiovascular: nl pulses, regular rate and rhythm Gastrointestinal: nl liver, spleen, non-tender, soft Results Result Diagram: 09/15/16 0455 09/15/16 0455 Results 24 hrs Laboratory Tests Test 09/14/16 11:58 09/14/16 17:40 09/14/16 20:37 09/15/16 00:32 Bedside Glucose 148 120 108 86 Test 09/15/16 01:32 09/15/16 04:55 09/15/16 05:47 Bedside Glucose 98 89 White Blood Count 8.1 Red Blood Count 3.63 L Hemoglobin 10.7 L Hematocrit 32.9 L Mean Corpuscular Volume 90.6 Mean Corpuscular Hemoglobin 29.5 Mean Corpuscular Hemoglobin Concent 32.5 Red Cell Distribution Width 15.0 H Platelet Count 240 Mean Platelet Volume 10.7 H Neutrophils % 67.0 Lymphocytes % 23.2 Monocytes % 8.6 Eosinophils % 0.5 Basophils % 0.1 Nucleated Red Blood Cells % 0.0 Neutrophils # 5.4 Lymphocytes # 1.9 Monocytes # 0.7 Eosinophils # 0.0 Basophils # 0.0 Nucleated Red Blood Cells # 0.0 Sodium Level 136 Potassium Level 4.1 Chloride Level 100 Carbon Dioxide Level 28 Anion Gap 12 Blood Urea Nitrogen 45 H Creatinine 6.40 H Glucose Level 93 # Calcium Level 8.6 Phosphorus Level 8.1 H Medications Medications Current Medications Acetaminophen/ Hydrocodone Bitart ([place] (5/325)) 1 tab Q6H PRN PO MODERATE PAIN LEVEL 4-6 Last administered on 09/15/16t 00:31; Admin Dose 1 TAB; Start at 17:30 Acetaminophen/ Hydrocodone Bitart ([place] (5/325)) 2 tab Q6H PRN PO SEVERE PAIN LEVEL 7-10; Start 09/07/16 at 17:30 Docusate Sodium (Colace) 100 mg Q12H PRN PO CONSTIPATION Last administered on 17:49; Admin Dose 100 MG; Start 09/07/16 at 17:30 Sodium Biphosphate/ Sodium Phosphate (Fleet Enema) 133 ml DAILY PRN [place] CONSTIPATION; Start 09/07/16 at 17:30 Famotidine (Pepcid Iv) 20 mg DAILY IV Last administered on 09/14/16 08:06; Admin Dose 20 MG; Start 09/08/16 at 09:00 Heparin Sodium (Porcine) (Heparin (5000 Units/0.5 ml)) 5,000 unit Q12 SC Last administered on 09/14/16 20:40; Admin Dose 5,000 UNIT; Start 09/07/16 at 21:00 Folic Acid (Folic Acid) 1 mg BID PO Last administered on 09/14/16 20:35; Admin Dose 1 MG; Start 09/07/16 at 21:00 Metoprolol Tartrate (Lopressor) 12.5 mg BID PO Last administered on 09/13/16 20:33; Admin Dose 12.5 MG; Start 09/07/16 at 23:00 Fenofibrate (Tricor) 48 mg QAM PO Last administered on 09/14/16 08:05; Admin Dose 48 MG; Start 09/08/16 at 09:00 Linagliptin (Tradjenta) 5 mg DAILY PO Last administered on 09/14/16 08:06; Admin Dose 5 MG; Start 09/07/16 at 18:00 Insulin Glargine (Lantus) 2 unit BID@08,20 SC Last administered on 09/14/16 20 :39; Admin Dose 2 UNIT; Start 09/07/16 at 20:00 Fish Oil (Fish Oil) 2,000 mg BID PO Last administered on 09/14/16 20:35; Admin Dose 2,000 MG; Start 09/07/16 at 21:00 Salmeterol Xinafoate/ Fluticasone (Advair 250/50 Diskus) 1 inh BID INH Last administered on 09/14/16 20:36; Admin Dose 1 INH; Start 09/07/16 at 23:00 Atorvastatin Calcium (Lipitor) 40 mg QHS PO Last administered on 09/14/16 20: 35; Admin Dose 40 MG; Start 09/07/16 at 21:00 Gabapentin (Neurontin) 900 mg QHS PO Last administered on 09/14/16 20:35; Admin Dose 900 MG; Start 09/07/16 at 21:00 Miscellaneous Information 1 ea NOTE XX ; Start 09/07/16 at 18:00 Glucose (Glutose) 15 gm Q15M PRN PO DECREASED GLUCOSE; Start 09/07/16 at 18:00 Glucose (Glutose) 22.5 gm Q15M PRN PO DECREASED GLUCOSE; Start 09/07/16 at 18: 00 Dextrose (D50w Syringe) 25 ml Q15M PRN IV DECREASED GLUCOSE; Start 09/07/16 at 18:00 Dextrose (D50w Syringe) 50 ml Q15M PRN IV DECREASED GLUCOSE; Start 09/07/16 at 18:00 Glucagon (Glucagen) 1 mg Q15M PRN IM DECREASED GLUCOSE; Start 09/07/16 at 18:00 Glucose (Glutose) 15 gm Q15M PRN BUCCAL DECREASED GLUCOSE; Start 09/07/16 at 18 :00 Naloxone HCl (Narcan) 0.2 mg Q2M PRN IV DECREASED REPIRATORY RATE Last administered on 09/08/16 02:44; Admin Dose 0.2 MG; Start 09/08/16 at 02:30 Tramadol HCl 50 mg 50 mg Q8H PRN PO PAIN Last administered on 09/14/16 10:48; Admin Dose 50 MG; Start 09/08/16 at 16:00 Phenylephrine HCl/ Dextrose (Efraín-Syneph/D5W) 500 ml @ 75 mls/hr TITRATE IV Last administered on 09/13/16 11:24; Admin Dose 75 MLS/HR; Start 09/09/16 at 03 :00 Insulin Aspart (Novolog Insulin Pen) NOVOLOG *MILD* ALGORI... Q4 SC Last administered on 09/14/16 12:02; Admin Dose 1 UNIT; Start 09/09/16 at 05:00 Hydromorphone HCl 0.5 mg 0.5 mg Q2H PRN IV PAIN Last administered on 09/15/16 08:02; Admin Dose 0.5 MG; Start 09/09/16 at 08:30 Total Parenteral Nutrition (Tpn) 1,000 ml @ 40 mls/hr Q24H IV ; Start 09/11/16 at 16:00; Status Future Hold Acetaminophen 500 mg 500 mg Q6H PO Last administered on 09/14/16 20:35; Admin Dose 500 MG; Start 09/12/16 at 09:00; Stop 09/16/16 at 08:59 Amiodarone HCl/ Dextrose (Cordarone Iv/ D5W) 500 ml @ 8.33 mls/hr Q24H IV Last administered on 09/13/16 20:39; Admin Dose 8.33 MLS/HR; Start 09/13/16 at 16:43 Amiodarone HCl (Cordarone) 200 mg DAILY PO ; Start 09/15/16 at 09:00 Gabapentin (Neurontin) 300 mg PO ; Start 09/15/16 at 09:00 Prednisone (Prednisone) 5 mg DAILY PO ; Start 09/15/16 at 09:00 Prednisone (Prednisone) 1 mg QHS PO Last administered on 09/15/16 00:30; Admin Dose 1 MG; Start 09/14/16 at 21:00 Lactulose (Enulose) 20 gm ONCE ONCE PO ; Start 09/15/16 at 08:30; Stop 09/15/16 at 08:31; Status TOMER MAYO MD Sep 15, 2016 08:14
[2016-09-15] MEDS: INSULIN GLARGINE [LANtus] 3 ML PEN SC SCH ×2 (08:15→20:32)
--- NOTE | 2016-09-15 08:20 | CONS ---
Date/Time of Note Date/Time of Note DATE: 09/15/16 TIME: 08:17 Assessment/Plan Assessment/Plan Problems: (1) Atrial fibrillation Status: Chronic Comment: on Amio... placed BP HOLD on the BB due to her relative hypotension Qualifiers: Atrial fibrillation type: chronic Qualified Code: I48.2 - Chronic atrial fibrillation (2) C2 cervical fracture Status: Acute Comment: neuro stable... in collar... to start PT Qualifiers: Encounter type: initial encounter Fracture type: closed Fracture morphology: other dens Fracture alignment: displaced Qualified Code: S12.120A - Other closed displaced odontoid fracture, initial encounter (3) ESRD (end stage renal disease) on dialysis Status: Chronic Comment: for HD in am...careful w UF due to hypotension.... labs good... not worry about PO4 for now Consultation Date/Type/Reason Admit Date/Time September 07, 2016 at 16:36 Initial Consult Date 09/08/16 Type of Consultation: neph Referring Provider: TOMER GARCIA MD 24 HR Interval Summary Free Text/Dictation much more awake/alert... conversant now... to start PT today Exam/Review of Systems Vital Signs Vitals Vital Signs Date Time Temp Pulse Resp B/P Pulse Ox O2 Delivery O2 Flow Rate FiO2 09/15/16 06:30 82 11 124/43 99 09/15/16 06:00 Nasal Cannula 2.0 09/15/16 04:00 98.1 09/13/16 04:10 30 Intake and Output 09/14/16 09/14/16 09/15/16 15:00 23:00 07:00 Intake Total 1615.72 ml 405 ml 267.75 ml Output Total 3500 ml 0 ml 0 ml Balance -1884.28 ml 405 ml 267.75 ml Exam Constitutional: alert, oriented Head: normocephalic Neck: other (in hard collar) Respiratory: clear to auscultation Cardiovascular: irregular rhythm (controlled AF) Extremities: edema (none) Results Result Diagram: 09/15/16 0455 09/15/16 0455 Results 24 hrs Laboratory Tests Test 09/14/16 11:58 09/14/16 17:40 09/14/16 20:37 09/15/16 00:32 Bedside Glucose 148 120 108 86 Test 09/15/16 01:32 09/15/16 04:55 09/15/16 05:47 Bedside Glucose 98 89 White Blood Count 8.1 Red Blood Count 3.63 L Hemoglobin 10.7 L Hematocrit 32.9 L Mean Corpuscular Volume 90.6 Mean Corpuscular Hemoglobin 29.5 Mean Corpuscular Hemoglobin Concent 32.5 Red Cell Distribution Width 15.0 H Platelet Count 240 Mean Platelet Volume 10.7 H Neutrophils % 67.0 Lymphocytes % 23.2 Monocytes % 8.6 Eosinophils % 0.5 Basophils % 0.1 Nucleated Red Blood Cells % 0.0 Neutrophils # 5.4 Lymphocytes # 1.9 Monocytes # 0.7 Eosinophils # 0.0 Basophils # 0.0 Nucleated Red Blood Cells # 0.0 Sodium Level 136 Potassium Level 4.1 Chloride Level 100 Carbon Dioxide Level 28 Anion Gap 12 Blood Urea Nitrogen 45 H Creatinine 6.40 H Glucose Level 93 # Calcium Level 8.6 Phosphorus Level 8.1 H Medications Medications Current Medications Acetaminophen/ Hydrocodone Bitart ([place] (5/325)) 1 tab Q6H PRN PO MODERATE PAIN LEVEL 4-6 Last administered on 09/15/16 00:31; Admin Dose 1 TAB; Start at 17:30 Acetaminophen/ Hydrocodone Bitart ([place] (5/325)) 2 tab Q6H PRN PO SEVERE PAIN LEVEL 7-10; Start 09/07/16 at 17:30 Docusate Sodium (Colace) 100 mg Q12H PRN PO CONSTIPATION Last administered on 17:49; Admin Dose 100 MG; Start 09/07/16 at 17:30 Sodium Biphosphate/ Sodium Phosphate (Fleet Enema) 133 ml DAILY PRN [place] CONSTIPATION; Start 09/07/16 at 17:30 Famotidine (Pepcid Iv) 20 mg DAILY IV Last administered on 09/14/16 08:06; Admin Dose 20 MG; Start 09/08/16 at 09:00 Heparin Sodium (Porcine) (Heparin (5000 Units/0.5 ml)) 5,000 unit Q12 SC Last administered on 09/14/16 20:40; Admin Dose 5,000 UNIT; Start 09/07/16 at 21:00 Folic Acid (Folic Acid) 1 mg BID PO Last administered on 09/14/16 20:35; Admin Dose 1 MG; Start 09/07/16 at 21:00 Metoprolol Tartrate (Lopressor) 12.5 mg BID PO Last administered on 09/13/16 20:33; Admin Dose 12.5 MG; Start 09/07/16 at 23:00 Fenofibrate (Tricor) 48 mg QAM PO Last administered on 09/14/16 08:05; Admin Dose 48 MG; Start 09/08/16 at 09:00 Linagliptin (Tradjenta) 5 mg DAILY PO Last administered on 09/14/16 08:06; Admin Dose 5 MG; Start 09/07/16 at 18:00 Fish Oil (Fish Oil) 2,000 mg BID PO Last administered on 09/14/16 20:35; Admin Dose 2,000 MG; Start 09/07/16 at 21:00 Salmeterol Xinafoate/ Fluticasone (Advair 250/50 Diskus) 1 inh BID INH Last administered on 09/14/16 20:36; Admin Dose 1 INH; Start 09/07/16 at 23:00 Atorvastatin Calcium (Lipitor) 40 mg QHS PO Last administered on 09/14/16 20: 35; Admin Dose 40 MG; Start 09/07/16 at 21:00 Gabapentin (Neurontin) 900 mg QHS PO Last administered on 09/14/16 20:35; Admin Dose 900 MG; Start 09/07/16 at 21:00 Miscellaneous Information 1 ea NOTE XX ; Start 09/07/16 at 18:00 Glucose (Glutose) 15 gm Q15M PRN PO DECREASED GLUCOSE; Start 09/07/16 at 18:00 Glucose (Glutose) 22.5 gm Q15M PRN PO DECREASED GLUCOSE; Start 09/07/16 at 18: 00 Dextrose (D50w Syringe) 25 ml Q15M PRN IV DECREASED GLUCOSE; Start 09/07/16 at 18:00 Dextrose (D50w Syringe) 50 ml Q15M PRN IV DECREASED GLUCOSE; Start 09/07/16 at 18:00 Glucagon (Glucagen) 1 mg Q15M PRN IM DECREASED GLUCOSE; Start 09/07/16 at 18:00 Glucose (Glutose) 15 gm Q15M PRN BUCCAL DECREASED GLUCOSE; Start 09/07/16 at 18 :00 Naloxone HCl (Narcan) 0.2 mg Q2M PRN IV DECREASED REPIRATORY RATE Last administered on 09/08/16 02:44; Admin Dose 0.2 MG; Start 09/08/16 at 02:30 Tramadol HCl 50 mg 50 mg Q8H PRN PO PAIN Last administered on 09/14/16 10:48; Admin Dose 50 MG; Start 09/08/16 at 16:00 Phenylephrine HCl/ Dextrose (Efraín-Syneph/D5W) 500 ml @ 75 mls/hr TITRATE IV Last administered on 09/13/16 11:24; Admin Dose 75 MLS/HR; Start 09/09/16 at 03 :00 Insulin Aspart (Novolog Insulin Pen) NOVOLOG *MILD* ALGORI... Q4 SC Last administered on 09/14/16 12:02; Admin Dose 1 UNIT; Start 09/09/16 at 05:00 Hydromorphone HCl 0.5 mg 0.5 mg Q2H PRN IV PAIN Last administered on 09/15/16 08:02; Admin Dose 0.5 MG; Start 09/09/16 at 08:30 Total Parenteral Nutrition (Tpn) 1,000 ml @ 40 mls/hr Q24H IV ; Start 09/11/16 at 16:00; Status Future Hold Acetaminophen 500 mg 500 mg Q6H PO Last administered on 09/14/16 20:35; Admin Dose 500 MG; Start 09/12/16 at 09:00; Stop 09/16/16 at 08:59 Amiodarone HCl/ Dextrose (Cordarone Iv/ D5W) 500 ml @ 8.33 mls/hr Q24H IV Last administered on 09/13/16 20:39; Admin Dose 8.33 MLS/HR; Start 09/13/16 at 16:43 Amiodarone HCl (Cordarone) 200 mg DAILY PO ; Start 09/15/16 at 09:00 Gabapentin (Neurontin) 300 mg PO ; Start 09/15/16 at 09:00 Prednisone (Prednisone) 5 mg DAILY PO ; Start 09/15/16 at 09:00 Prednisone (Prednisone) 1 mg QHS PO Last administered on 09/15/16 00:30; Admin Dose 1 MG; Start 09/14/16 at 21:00 Lactulose (Enulose) 20 gm ONCE ONCE PO ; Start 09/15/16 at 08:30; Stop 09/15/16 at 08:31; Status UNV Insulin Glargine (Lantus) 3 unit BID@08,20 SC ; Start 09/15/16 at 20:00; Status OMERV NICO HAY MD Sep 15, 2016 08:20
[2016-09-15] MEDS ORDERED: LACTULOSE 30ML CUP PO ONE (08:30)
[2016-09-15] MEDS: GABAPENTIN 300 MG CAP PO SCH ×3 (08:41→21:00)
[2016-09-15] MEDS: predniSONE 5 MG TAB PO SCH (08:41)
[2016-09-15] MEDS: FENOFIBRATE 48 MG TAB PO SCH (08:41)
[2016-09-15] MEDS: FOLIC ACID 1 MG TAB PO SCH ×2 (08:41→21:00)
[2016-09-15] MEDS: LINAGLIPTIN 5 MG TABLET PO SCH (08:41)
[2016-09-15] MEDS: METOPROLOL 25 MG TAB PO SCH ×2 (08:42→21:00)
[2016-09-15] MEDS: AMIODARONE 200 MG TAB PO SCH (08:42)
[2016-09-15] MEDS: FISH OIL 1,000 MG CAP PO SCH ×2 (08:42→21:00)
[2016-09-15] MEDS: SALMETEROL/FLUTICASONE 250/50 INHA INH SCH ×2 (08:43→21:00)
[2016-09-15] MEDS: HEPARIN 5,000 UNIT/0.5 ML VIAL SC SCH ×2 (08:46→20:33)
[2016-09-15] MEDS: FAMOTIDINE 20 MG INJ IV SCH (08:55)
--- NOTE | 2016-09-15 09:33 | CONS ---
Date/Time of Note Date/Time of Note DATE: 09/15/16 TIME: 09:31 Consult Date/Type/Reason Admit Date/Time September 07, 2016 at 16:36 Initial Consult Date 09/08/16 Type of Consultation: Pulmonary ICU Ordering Provider: TOMER GARCIA MD Subjective Patient continues on vasopressor support Awake alert and oriented comfortable at rest talking in full and complete sentences Objective Vital Signs Date Time Temp Pulse Resp B/P Pulse Ox O2 Delivery O2 Flow Rate FiO2 09/15/16 08:00 85 09/15/16 06:30 11 124/43 99 09/15/16 06:00 Nasal Cannula 2.0 09/15/16 04:00 98.1 09/13/16 04:10 30 Intake and Output 09/14/16 09/14/16 09/15/16 15:00 23:00 07:00 Intake Total 1615.72 ml 405 ml 267.75 ml Output Total 3500 ml 0 ml 0 ml Balance -1884.28 ml 405 ml 267.75 ml Exam GENERAL: Elderly lady with C-spine collar VITAL SIGNS: per chart NECK: Supple. No JVD or lymphadenopathy. CARDIAC EXAM: S1, S2. No added sounds or murmurs. CHEST: clear bilaterally, No added sounds, rales or wheezes ABDOMEN: Soft, nontender. No guarding or rebound. EXTREMITIES: No cyanosis, clubbing or edema. NEUROLOGIC: Generalized weakness. No focal deficits. Results/Medications Result Diagram: 09/15/16 0455 09/15/16 0455 Results 24 hrs Chest x-ray Low lung volumes hilar lymphadenopathy Laboratory Tests Test 09/14/16 11:58 09/14/16 17:40 09/14/16 20:37 09/15/16 00:32 Bedside Glucose 148 120 108 86 Test 09/15/16 01:32 09/15/16 04:55 09/15/16 05:47 09/15/16 08:13 Bedside Glucose 98 89 95 White Blood Count 8.1 Red Blood Count 3.63 L Hemoglobin 10.7 L Hematocrit 32.9 L Mean Corpuscular Volume 90.6 Mean Corpuscular Hemoglobin 29.5 Mean Corpuscular Hemoglobin Concent 32.5 Red Cell Distribution Width 15.0 H Platelet Count 240 Mean Platelet Volume 10.7 H Neutrophils % 67.0 Lymphocytes % 23.2 Monocytes % 8.6 Eosinophils % 0.5 Basophils % 0.1 Nucleated Red Blood Cells % 0.0 Neutrophils # 5.4 Lymphocytes # 1.9 Monocytes # 0.7 Eosinophils # 0.0 Basophils # 0.0 Nucleated Red Blood Cells # 0.0 Sodium Level 136 Potassium Level 4.1 Chloride Level 100 Carbon Dioxide Level 28 Anion Gap 12 Blood Urea Nitrogen 45 H Creatinine 6.40 H Glucose Level 93 # Calcium Level 8.6 Phosphorus Level 8.1 H Medications Current Medications Acetaminophen/ Hydrocodone Bitart ([place] (5/325)) 1 tab Q6H PRN PO MODERATE PAIN LEVEL 4-6 Last administered on 09/15/16 00:31; Admin Dose 1 TAB; Start at 17:30 Acetaminophen/ Hydrocodone Bitart ([place] (5/325)) 2 tab Q6H PRN PO SEVERE PAIN LEVEL 7-10; Start 09/07/16 at 17:30 Docusate Sodium (Colace) 100 mg Q12H PRN PO CONSTIPATION Last administered on 17:49; Admin Dose 100 MG; Start 09/07/16 at 17:30 Sodium Biphosphate/ Sodium Phosphate (Fleet Enema) 133 ml DAILY PRN [place] CONSTIPATION; Start 09/07/16 at 17:30 Famotidine (Pepcid Iv) 20 mg DAILY IV Last administered on 09/15/16 08:55; Admin Dose 20 MG; Start 09/08/16 at 09:00 Heparin Sodium (Porcine) (Heparin (5000 Units/0.5 ml)) 5,000 unit Q12 SC Last administered on 09/15/16 08:46; Admin Dose 5,000 UNIT; Start 09/07/16 at 21:00 Folic Acid (Folic Acid) 1 mg BID PO Last administered on 09/15/16 08:41; Admin Dose 1 MG; Start 09/07/16 at 21:00 Metoprolol Tartrate (Lopressor) 12.5 mg BID PO Last administered on 09/13/16 20:33; Admin Dose 12.5 MG; Start 09/07/16 at 23:00 Fenofibrate (Tricor) 48 mg QAM PO Last administered on 09/15/16 08:41; Admin Dose 48 MG; Start 09/08/16 at 09:00 Linagliptin (Tradjenta) 5 mg DAILY PO Last administered on 09/15/16 08:41; Admin Dose 5 MG; Start 09/07/16 at 18:00 Fish Oil (Fish Oil) 2,000 mg BID PO Last administered on 09/15/16 08:42; Admin Dose 2,000 MG; Start 09/07/16 at 21:00 Salmeterol Xinafoate/ Fluticasone (Advair 250/50 Diskus) 1 inh BID INH Last administered on 09/15/16 08:43; Admin Dose 1 INH; Start 09/07/16 at 23:00 Atorvastatin Calcium (Lipitor) 40 mg QHS PO Last administered on 09/14/16 20: 35; Admin Dose 40 MG; Start 09/07/16 at 21:00 Gabapentin (Neurontin) 900 mg QHS PO Last administered on 09/14/16 20:35; Admin Dose 900 MG; Start 09/07/16 at 21:00 Miscellaneous Information 1 ea NOTE XX ; Start 09/07/16 at 18:00 Glucose (Glutose) 15 gm Q15M PRN PO DECREASED GLUCOSE; Start 09/07/16 at 18:00 Glucose (Glutose) 22.5 gm Q15M PRN PO DECREASED GLUCOSE; Start 09/07/16 at 18: 00 Dextrose (D50w Syringe) 25 ml Q15M PRN IV DECREASED GLUCOSE; Start 09/07/16 at 18:00 Dextrose (D50w Syringe) 50 ml Q15M PRN IV DECREASED GLUCOSE; Start 09/07/16 at 18:00 Glucagon (Glucagen) 1 mg Q15M PRN IM DECREASED GLUCOSE; Start 09/07/16 at 18:00 Glucose (Glutose) 15 gm Q15M PRN BUCCAL DECREASED GLUCOSE; Start 09/07/16 at 18 :00 Naloxone HCl (Narcan) 0.2 mg Q2M PRN IV DECREASED REPIRATORY RATE Last administered on 09/08/16 02:44; Admin Dose 0.2 MG; Start 09/08/16 at 02:30 Tramadol HCl 50 mg 50 mg Q8H PRN PO PAIN Last administered on 09/14/16 10:48; Admin Dose 50 MG; Start 09/08/16 at 16:00 Phenylephrine HCl/ Dextrose (Efraín-Syneph/D5W) 500 ml @ 75 mls/hr TITRATE IV Last administered on 09/13/16 11:24; Admin Dose 75 MLS/HR; Start 09/09/16 at 03 :00 Insulin Aspart (Novolog Insulin Pen) NOVOLOG *MILD* ALGORI... Q4 SC Last administered on 09/14/16 12:02; Admin Dose 1 UNIT; Start 09/09/16 at 05:00 Hydromorphone HCl 0.5 mg 0.5 mg Q2H PRN IV PAIN Last administered on 09/15/16 08:02; Admin Dose 0.5 MG; Start 09/09/16 at 08:30 Total Parenteral Nutrition (Tpn) 1,000 ml @ 40 mls/hr Q24H IV ; Start 09/11/16 at 16:00; Status Future Hold Acetaminophen 500 mg 500 mg Q6H PO Last administered on 09/15/16 08:40; Admin Dose 500 MG; Start 09/12/16 at 09:00; Stop 09/16/16 at 08:59 Amiodarone HCl/ Dextrose (Cordarone Iv/ D5W) 500 ml @ 8.33 mls/hr Q24H IV Last administered on 09/13/16 20:39; Admin Dose 8.33 MLS/HR; Start 09/13/16 at 16:43 Amiodarone HCl (Cordarone) 200 mg DAILY PO Last administered on 09/15/16 08:42 ; Admin Dose 200 MG; Start 09/15/16 at 09:00 Gabapentin (Neurontin) 300 mg 09,16 PO Last administered on 09/15/16 08:41; Admin Dose 300 MG; Start 09/15/16 at 09:00 Prednisone (Prednisone) 5 mg DAILY PO Last administered on 09/15/16 08:41; Admin Dose 5 MG; Start 09/15/16 at 09:00 Prednisone (Prednisone) 1 mg QHS PO Last administered on 09/15/16 00:30; Admin Dose 1 MG; Start 09/14/16 at 21:00 Insulin Glargine (Lantus) 3 unit BID@08,20 SC ; Start 09/15/16 at 20:00 Assessment/Plan Chief Complaint/Hosp Course IMP: 1. Acute on chronic hypercapnic respiratory failure: multifactorial in etiology. Possible underlying OSH or COPD. Doubt significant [id number] diaphragmatic weakness 2. C-spine injury--high-risk intubation if needed. 3. s/p TAVR. 4. End-stage renal disease, on hemodialysis. 5. Pulmonary sarcoidosis, patient on long-term prednisone use. 6. History of hypertension. 7. Afib with RVR 7. Coronary artery disease. Status post PTCA in the past. 8. CHF 9. Shock combination of hypovolemic questionable adrenal insufficiency RECS: 1. Continue CS 2. PICC line care 3. Advance diet as tolerated 4. Aspiration precautions 5. DC CPT per patient's request 6. Titrate FiO2 to keep SpO2 at 88-92% 7. Continue HD/UF consider removing less fluid if tolerated 8. Monitor blood gases closely Continue ICU because of vasopressor requirements Problems: DEBRA HERN[facility]NDEZ [facility] Sep 15, 2016 09:33
[2016-09-15] MEDS: PHENYLephrine 40 MG in DEXTROSE 5% 496 ML IV SCH (09:46)
[2016-09-15] MEDS: AMIODARONE 900 MG in DEXTROSE 5% 482 ML IV SCH (16:16)
[2016-09-15] MEDS: predniSONE 2.5 MG TAB PO SCH (17:34)
[2016-09-15] MEDS: ATORVASTATIN 40 MG TAB PO SCH (21:00)
[2016-09-16] VITALS (89 sets, daily range): BP systolic 50–151; BP diastolic 23–133; PULSE 80–109; RESP 9–27; Ht 165.1 cm; Wt 85.7 kg
[2016-09-16] MEDS: INSULIN ASPART [NOVOLOG] 3 ML PEN SC SCH ×6 (01:00→20:53)
[2016-09-16] MEDS: ACETAMINOPHEN 500 MG TAB PO SCH (03:00)
[2016-09-16 04:45] LABS: ADD SCAN DIFF NO
[2016-09-16] MEDS: PHENYLephrine 40 MG in DEXTROSE 5% 496 ML IV SCH (04:56)
[2016-09-16 04:59] LABS: BASOPHILS % 0.1 % (0.0-2.0); EOSINOPHILS # 0.1 10^3/ul (0.0-0.5); EOSINOPHILS % 0.9 % (0.0-7.0); HEMATOCRIT 32.3 % (37.0-47.0); HEMOGLOBIN 10.5 g/dl (12.0-16.0); LYMPHOCYTES # 1.5 10^3/ul (0.8-2.9); MEAN CORPUSCULAR HEMOGLOBIN 29.6 pg (29.0-33.0); MEAN CORPUSCULAR HGB CONC 32.5 g/dl (32.0-37.0); MEAN PLATELET VOLUME 11.1 fl (7.4-10.4); MONOCYTE # 0.6 10^3/ul (0.3-0.9); MONOCYTES % 4.6 % (0.0-11.0); NEUTROPHIL # 10.1 10^3/ul (1.6-7.5); NEUTROPHILS % 81.5 % (39.0-77.0); PLATELET COUNT 214 10^3/UL (140-415); RED BLOOD COUNT 3.55 10^6/ul (4.20-5.40); RED CELL DISTRIBUTION WIDTH 14.8 % (11.5-14.5); WHITE BLOOD COUNT 12.4 10^3/ul (4.8-10.8)
[2016-09-16 05:29] LABS: CALCIUM 8.6 mg/dl (8.4-10.2); MAGNESIUM 2.2 mg/dl (1.7-2.5); POTASSIUM 4.5 mmol/L (3.5-5.1)
[2016-09-16 05:38] LABS: CREATININE 7.62 mg/dl (0.44-1.00)
[2016-09-16] MEDS: SEVELAMER CARBONATE 0.8 GM PKT PO SCH ×3 (07:32→17:04)
[2016-09-16] MEDS: INSULIN GLARGINE [LANtus] 3 ML PEN SC SCH ×2 (08:09→20:43)
[2016-09-16] MEDS: SALMETEROL/FLUTICASONE 250/50 INHA INH SCH ×2 (08:14→20:36)
[2016-09-16] MEDS: AMIODARONE 200 MG TAB PO SCH (08:14)
[2016-09-16] MEDS: FAMOTIDINE 20 MG INJ IV SCH (08:14)
[2016-09-16] MEDS: FENOFIBRATE 48 MG TAB PO SCH (08:14)
[2016-09-16] MEDS: FOLIC ACID 1 MG TAB PO SCH ×2 (08:14→20:36)
[2016-09-16] MEDS: FISH OIL 1,000 MG CAP PO SCH ×2 (08:14→20:36)
[2016-09-16] MEDS: predniSONE 5 MG TAB PO SCH (08:15)
[2016-09-16] MEDS: LINAGLIPTIN 5 MG TABLET PO SCH (08:15)
[2016-09-16] MEDS: METOPROLOL 25 MG TAB PO SCH ×2 (08:15→20:36)
[2016-09-16] MEDS: GABAPENTIN 300 MG CAP PO SCH ×3 (08:17→20:35)
[2016-09-16] MEDS: HEPARIN 5,000 UNIT/0.5 ML VIAL SC SCH ×2 (08:18→20:43)
[2016-09-16] MEDS: HYDROCODONE/APAP (5/325) TAB PO PRN (10:08)
--- NOTE | 2016-09-16 11:00 | CONS ---
Date/Time of Note Date/Time of Note DATE: 09/16/16 TIME: 10:59 Consult Date/Type/Reason Admit Date/Time September 07, 2016 at 16:36 Initial Consult Date 09/08/16 Type of Consultation: Pulmonary ICU Ordering Provider: TOMER GARCIA MD Subjective Patient awake alert comfortable this morning no new events, being weaned off Efraín -Synephrine Objective Vital Signs Date Time Temp Pulse Resp B/P Pulse Ox O2 Delivery O2 Flow Rate FiO2 09/16/16 10:41 109 09/16/16 09:00 14 147/51 100 Nasal Cannula 2.0 09/16/16 08:00 98.4 09/13/16 04:10 30 Intake and Output 09/15/16 09/15/16 09/16/16 15:00 23:00 07:00 Intake Total 435.0 ml 211.5 ml 71.25 ml Output Total 0 ml 0 ml Balance 435.0 ml 211.5 ml 71.25 ml Exam GENERAL: Elderly lady with C-spine collar VITAL SIGNS: per chart NECK: Supple. No JVD or lymphadenopathy. CARDIAC EXAM: S1, S2. No added sounds or murmurs. CHEST: clear bilaterally, No added sounds, rales or wheezes ABDOMEN: Soft, nontender. No guarding or rebound. EXTREMITIES: No cyanosis, clubbing or edema. NEUROLOGIC: Generalized weakness. No focal deficits. Results/Medications Result Diagram: 09/16/16 0330 09/16/16 0330 Results 24 hrs Laboratory Tests Test 09/15/16 12:34 09/15/16 17:26 09/15/16 20:27 09/16/16 00:58 Bedside Glucose 94 109 115 100 Test 09/16/16 03:30 09/16/16 04:54 09/16/16 08:03 White Blood Count 12.4 #H Red Blood Count 3.55 L Hemoglobin 10.5 L Hematocrit 32.3 L Mean Corpuscular Volume 91.0 Mean Corpuscular Hemoglobin 29.6 Mean Corpuscular Hemoglobin Concent 32.5 Red Cell Distribution Width 14.8 H Platelet Count 214 Mean Platelet Volume 11.1 H Neutrophils % 81.5 H Lymphocytes % 12.0 L Monocytes % 4.6 Eosinophils % 0.9 Basophils % 0.1 Nucleated Red Blood Cells % 0.0 Neutrophils # 10.1 H Lymphocytes # 1.5 Monocytes # 0.6 Eosinophils # 0.1 Basophils # 0.0 Nucleated Red Blood Cells # 0.0 Sodium Level 135 Potassium Level 4.5 Chloride Level 93 L Carbon Dioxide Level 26 Anion Gap 21 #H Blood Urea Nitrogen 60 H Creatinine 7.62 H Glucose Level 88 Calcium Level 8.6 Phosphorus Level 9.0 H Magnesium Level 2.2 Random Cortisol 9.5 Bedside Glucose 87 84 Medications Current Medications Acetaminophen/ Hydrocodone Bitart ([place] (5/325)) 1 tab Q6H PRN PO MODERATE PAIN LEVEL 4-6 Last administered on 09/15/16 22:41; Admin Dose 1 TAB; Start at 17:30 Acetaminophen/ Hydrocodone Bitart ([place] (5/325)) 2 tab Q6H PRN PO SEVERE PAIN LEVEL 7-10 Last administered on 09/16/16 10:08; Admin Dose 2 TAB; Start at 17:30 Docusate Sodium (Colace) 100 mg Q12H PRN PO CONSTIPATION Last administered on 17:49; Admin Dose 100 MG; Start 09/07/16 at 17:30 Sodium Biphosphate/ Sodium Phosphate (Fleet Enema) 133 ml DAILY PRN [place] CONSTIPATION; Start 09/07/16 at 17:30 Famotidine (Pepcid Iv) 20 mg DAILY IV Last administered on 09/16/16 08:14; Admin Dose 20 MG; Start 09/08/16 at 09:00 Heparin Sodium (Porcine) (Heparin (5000 Units/0.5 ml)) 5,000 unit Q12 SC Last administered on 09/16/16 08:18; Admin Dose 5,000 UNIT; Start 09/07/16 at 21:00 Folic Acid (Folic Acid) 1 mg BID PO Last administered on 09/16/16 08:14; Admin Dose 1 MG; Start 09/07/16 at 21:00 Metoprolol Tartrate (Lopressor) 12.5 mg BID PO Last administered on 09/13/16 20:33; Admin Dose 12.5 MG; Start 09/07/16 at 23:00 Fenofibrate (Tricor) 48 mg QAM PO Last administered on 09/16/16 08:14; Admin Dose 48 MG; Start 09/08/16 at 09:00 Linagliptin (Tradjenta) 5 mg DAILY PO Last administered on 09/16/16 08:15; Admin Dose 5 MG; Start 09/07/16 at 18:00 Fish Oil (Fish Oil) 2,000 mg BID PO Last administered on 09/16/16 08:14; Admin Dose 2,000 MG; Start 09/07/16 at 21:00 Salmeterol Xinafoate/ Fluticasone (Advair 250/50 Diskus) 1 inh BID INH Last administered on 09/16/16 08:14; Admin Dose 1 INH; Start 09/07/16 at 23:00 Atorvastatin Calcium (Lipitor) 40 mg QHS PO Last administered on 09/14/16 20: 35; Admin Dose 40 MG; Start 09/07/16 at 21:00 Gabapentin (Neurontin) 900 mg QHS PO Last administered on 09/14/16 20:35; Admin Dose 900 MG; Start 09/07/16 at 21:00 Miscellaneous Information 1 ea NOTE XX ; Start 09/07/16 at 18:00 Glucose (Glutose) 15 gm Q15M PRN PO DECREASED GLUCOSE; Start 09/07/16 at 18:00 Glucose (Glutose) 22.5 gm Q15M PRN PO DECREASED GLUCOSE; Start 09/07/16 at 18: 00 Dextrose (D50w Syringe) 25 ml Q15M PRN IV DECREASED GLUCOSE; Start 09/07/16 at 18:00 Dextrose (D50w Syringe) 50 ml Q15M PRN IV DECREASED GLUCOSE; Start 09/07/16 at 18:00 Glucagon (Glucagen) 1 mg Q15M PRN IM DECREASED GLUCOSE; Start 09/07/16 at 18:00 Glucose (Glutose) 15 gm Q15M PRN BUCCAL DECREASED GLUCOSE; Start 09/07/16 at 18 :00 Naloxone HCl (Narcan) 0.2 mg Q2M PRN IV DECREASED REPIRATORY RATE Last administered on 09/08/16 02:44; Admin Dose 0.2 MG; Start 09/08/16 at 02:30 Tramadol HCl 50 mg 50 mg Q8H PRN PO PAIN Last administered on 09/14/16 10:48; Admin Dose 50 MG; Start 09/08/16 at 16:00 Phenylephrine HCl/ Dextrose (Efraín-Syneph/D5W) 500 ml @ 75 mls/hr TITRATE IV Last administered on 09/16/16 04:56; Admin Dose 11.25 MLS/HR; Start 09/09/16 at 03:00 Insulin Aspart (Novolog Insulin Pen) NOVOLOG *MILD* ALGORI... Q4 SC Last administered on 09/14/16 12:02; Admin Dose 1 UNIT; Start 09/09/16 at 05:00 Hydromorphone HCl 0.5 mg 0.5 mg Q2H PRN IV PAIN Last administered on 09/15/16 08:02; Admin Dose 0.5 MG; Start 09/09/16 at 08:30 Total Parenteral Nutrition 1,000 ml @ 40 mls/hr Q24H IV ; Start 09/11/16 at 16: 00; Status Future Hold Amiodarone HCl/ Dextrose (Cordarone Iv/ D5W) 500 ml @ 8.33 mls/hr Q24H IV Last administered on 09/13/16 20:39; Admin Dose 8.33 MLS/HR; Start 09/13/16 at 16:43 Amiodarone HCl (Cordarone) 200 mg DAILY PO Last administered on 09/16/16 08:14 ; Admin Dose 200 MG; Start 09/15/16 at 09:00 Gabapentin (Neurontin) 300 mg 09,16 PO Last administered on 09/16/16 08:17; Admin Dose 300 MG; Start 09/15/16 at 09:00 Prednisone (Prednisone) 5 mg DAILY PO Last administered on 09/16/16 08:15; Admin Dose 5 MG; Start 09/15/16 at 09:00 Prednisone (Prednisone) 1 mg QHS PO Last administered on 09/15/16 20:29; Admin Dose 1 MG; Start 09/14/16 at 21:00 Insulin Glargine (Lantus) 3 unit BID@08,20 SC Last administered on 09/16/16 08: 09; Admin Dose 3 UNIT; Start 09/15/16 at 20:00 Assessment/Plan Chief Complaint/Hosp Course IMP: 1. Acute on chronic hypercapnic respiratory failure: multifactorial in etiology. Possible underlying OSH or COPD. Doubt significant [id number] diaphragmatic weakness 2. C-spine injury--high-risk intubation if needed. 3. s/p TAVR. 4. End-stage renal disease, on hemodialysis. 5. Pulmonary sarcoidosis, patient on long-term prednisone use. 6. History of hypertension. 7. Afib with RVR 7. Coronary artery disease. Status post PTCA in the past. 8. CHF 9. Shock combination of hypovolemic RECS: 1. Continue CS 2. PICC line care 3. Continue hemodialysis 4. Orthopedic recommendations continue C-spine collar 5. Aspiration precautions 6. DVT and GI prophylaxis Disposition Transfer to telemetry once off vasopressors and remains hemodynamically stable Problems: [facility] Sep 16, 2016 11:00
[2016-09-16] MEDS: traMADol 50 MG TAB PO PRN (12:51)
--- NOTE | 2016-09-16 13:25 | CONS ---
Date/Time of Note Date/Time of Note DATE: 09/16/16 TIME: 13:22 Assessment/Plan Assessment/Plan Problems: (1) Atrial fibrillation Status: Chronic Comment: rate controlled, chronic Qualifiers: Atrial fibrillation type: chronic Qualified Code: I48.2 - Chronic atrial fibrillation (2) C2 cervical fracture Status: Acute Comment: in collar... neuro stable... getting up w PT now Qualifiers: Encounter type: initial encounter Fracture type: closed Fracture morphology: other dens Fracture alignment: displaced Qualified Code: S12.120A - Other closed displaced odontoid fracture, initial encounter (3) Sarcoidosis Status: Chronic Comment: on prednisone (4) ESRD (end stage renal disease) on dialysis Status: Chronic Comment: nas HD earlier... on some efraín post the UF... next HD to be Mon Consultation Date/Type/Reason Admit Date/Time September 07, 2016 at 16:36 Initial Consult Date 09/08/16 Type of Consultation: neph Referring Provider: TOMER GARCIA MD 24 HR Interval Summary Free Text/Dictation got up w PT earlier!... quite awake/alert... stronger daily... taking in food w help Exam/Review of Systems Vital Signs Vitals Vital Signs Date Time Temp Pulse Resp B/P Pulse Ox O2 Delivery O2 Flow Rate FiO2 09/16/16 12:00 91 09/16/16 11:14 14 09/16/16 11:00 151/133 100 Nasal Cannula 2.0 09/16/16 08:00 98.4 09/13/16 04:10 30 Intake and Output 09/15/16 09/15/16 09/16/16 15:00 23:00 07:00 Intake Total 435.0 ml 211.5 ml 71.25 ml Output Total 0 ml 0 ml Balance 435.0 ml 211.5 ml 71.25 ml Exam Constitutional: alert, oriented Eyes: nl conjunctiva Neck: other (in the hard collar) Cardiovascular: irregular rhythm (controlled AF), regular rate and rhythm Gastrointestinal: soft Extremities: other (fxn AVF LUE) Results Result Diagram: 09/16/16 0330 09/16/16 0330 Results 24 hrs Laboratory Tests Test 09/15/16 17:26 09/15/16 20:27 09/16/16 00:58 09/16/16 03:30 Bedside Glucose 109 115 100 White Blood Count 12.4 #H Red Blood Count 3.55 L Hemoglobin 10.5 L Hematocrit 32.3 L Mean Corpuscular Volume 91.0 Mean Corpuscular Hemoglobin 29.6 Mean Corpuscular Hemoglobin Concent 32.5 Red Cell Distribution Width 14.8 H Platelet Count 214 Mean Platelet Volume 11.1 H Neutrophils % 81.5 H Lymphocytes % 12.0 L Monocytes % 4.6 Eosinophils % 0.9 Basophils % 0.1 Nucleated Red Blood Cells % 0.0 Neutrophils # 10.1 H Lymphocytes # 1.5 Monocytes # 0.6 Eosinophils # 0.1 Basophils # 0.0 Nucleated Red Blood Cells # 0.0 Sodium Level 135 Potassium Level 4.5 Chloride Level 93 L Carbon Dioxide Level 26 Anion Gap 21 #H Blood Urea Nitrogen 60 H Creatinine 7.62 H Glucose Level 88 Calcium Level 8.6 Phosphorus Level 9.0 H Magnesium Level 2.2 Random Cortisol 9.5 Test 09/16/16 04:54 09/16/16 08:03 09/16/16 12:19 Bedside Glucose 87 84 124 Medications Medications Current Medications Acetaminophen/ Hydrocodone Bitart ([place] (5/325)) 1 tab Q6H PRN PO MODERATE PAIN LEVEL 4-6 Last administered on 09/15/16 22:41; Admin Dose 1 TAB; Start at 17:30 Acetaminophen/ Hydrocodone Bitart ([place] (5/325)) 2 tab Q6H PRN PO SEVERE PAIN LEVEL 7-10 Last administered on 09/16/16 10:08; Admin Dose 2 TAB; Start at 17:30 Docusate Sodium (Colace) 100 mg Q12H PRN PO CONSTIPATION Last administered on 17:49; Admin Dose 100 MG; Start 09/07/16 at 17:30 Sodium Biphosphate/ Sodium Phosphate (Fleet Enema) 133 ml DAILY PRN [place] CONSTIPATION; Start 09/07/16 at 17:30 Famotidine (Pepcid Iv) 20 mg DAILY IV Last administered on 09/16/16 08:14; Admin Dose 20 MG; Start 09/08/16 at 09:00 Heparin Sodium (Porcine) (Heparin (5000 Units/0.5 ml)) 5,000 unit Q12 SC Last administered on 09/16/16 08:18; Admin Dose 5,000 UNIT; Start 09/07/16 at 21:00 Folic Acid (Folic Acid) 1 mg BID PO Last administered on 09/16/16 08:14; Admin Dose 1 MG; Start 09/07/16 at 21:00 Metoprolol Tartrate (Lopressor) 12.5 mg BID PO Last administered on 09/13/16 20:33; Admin Dose 12.5 MG; Start 09/07/16 at 23:00 Fenofibrate (Tricor) 48 mg QAM PO Last administered on 09/16/16 08:14; Admin Dose 48 MG; Start 09/08/16 at 09:00 Linagliptin (Tradjenta) 5 mg DAILY PO Last administered on 09/16/16 08:15; Admin Dose 5 MG; Start 09/07/16 at 18:00 Fish Oil (Fish Oil) 2,000 mg BID PO Last administered on 09/16/16 08:14; Admin Dose 2,000 MG; Start 09/07/16 at 21:00 Salmeterol Xinafoate/ Fluticasone (Advair 250/50 Diskus) 1 inh BID INH Last administered on 09/16/16 08:14; Admin Dose 1 INH; Start 09/07/16 at 23:00 Atorvastatin Calcium (Lipitor) 40 mg QHS PO Last administered on 09/14/16 20: 35; Admin Dose 40 MG; Start 09/07/16 at 21:00 Gabapentin (Neurontin) 900 mg QHS PO Last administered on 09/14/16 20:35; Admin Dose 900 MG; Start 09/07/16 at 21:00 Miscellaneous Information 1 ea NOTE XX ; Start 09/07/16 at 18:00 Glucose (Glutose) 15 gm Q15M PRN PO DECREASED GLUCOSE; Start 09/07/16 at 18:00 Glucose (Glutose) 22.5 gm Q15M PRN PO DECREASED GLUCOSE; Start 09/07/16 at 18: 00 Dextrose (D50w Syringe) 25 ml Q15M PRN IV DECREASED GLUCOSE; Start 09/07/16 at 18:00 Dextrose (D50w Syringe) 50 ml Q15M PRN IV DECREASED GLUCOSE; Start 09/07/16 at 18:00 Glucagon (Glucagen) 1 mg Q15M PRN IM DECREASED GLUCOSE; Start 09/07/16 at 18:00 Glucose (Glutose) 15 gm Q15M PRN BUCCAL DECREASED GLUCOSE; Start 09/07/16 at 18 :00 Naloxone HCl (Narcan) 0.2 mg Q2M PRN IV DECREASED REPIRATORY RATE Last administered on 09/08/16 02:44; Admin Dose 0.2 MG; Start 09/08/16 at 02:30 Tramadol HCl 50 mg 50 mg Q8H PRN PO PAIN Last administered on 09/16/16 12:51; Admin Dose 50 MG; Start 09/08/16 at 16:00 Phenylephrine HCl/ Dextrose (Efraín-Syneph/D5W) 500 ml @ 75 mls/hr TITRATE IV Last administered on 09/16/16 04:56; Admin Dose 11.25 MLS/HR; Start 09/09/16 at 03:00 Insulin Aspart (Novolog Insulin Pen) NOVOLOG *MILD* ALGORI... Q4 SC Last administered on 09/14/16 12:02; Admin Dose 1 UNIT; Start 09/09/16 at 05:00 Hydromorphone HCl 0.5 mg 0.5 mg Q2H PRN IV PAIN Last administered on 09/15/16 08:02; Admin Dose 0.5 MG; Start 09/09/16 at 08:30 Total Parenteral Nutrition 1,000 ml @ 40 mls/hr Q24H IV ; Start 09/11/16 at 16: 00; Status Future Hold Amiodarone HCl/ Dextrose (Cordarone Iv/ D5W) 500 ml @ 8.33 mls/hr Q24H IV Last administered on 09/13/16 20:39; Admin Dose 8.33 MLS/HR; Start 09/13/16 at 16:43 Amiodarone HCl (Cordarone) 200 mg DAILY PO Last administered on 09/16/16 08:14 ; Admin Dose 200 MG; Start 09/15/16 at 09:00 Gabapentin (Neurontin) 300 mg 16 PO Last administered on 09/16/16 08:17; Admin Dose 300 MG; Start 09/15/16 at 09:00 Prednisone (Prednisone) 5 mg DAILY PO Last administered on 09/16/16 08:15; Admin Dose 5 MG; Start 09/15/16 at 09:00 Prednisone (Prednisone) 1 mg QHS PO Last administered on 09/15/16 20:29; Admin Dose 1 MG; Start 09/14/16 at 21:00 Insulin Glargine (Lantus) 3 unit BID@08,20 SC Last administered on 09/16/16 08: 09; Admin Dose 3 UNIT; Start 09/15/16 at 20:00 NICO HAY MD Sep 16, 2016 13:25
--- NOTE | 2016-09-16 15:03 | PN ---
Date/Time of Note Date/Time of Note DATE: 09/16/16 TIME: 15:00 Assessment/Plan VTE Prophylaxis VTE Prophylaxis Intervention: other Lines/Catheters [facility] Urinary Cath still in place: No Assessment/Plan Problems: (1) C2 cervical fracture Status: Acute Comment: She remains in the hard collar. She is starting to take p.o. better. Please note this was after a somewhat aggressive conversation with the patient and her family about eating. Fortunately it appears that this will allow us to avoid the need for feeding tube. Continue with very careful advancement. Once she is stable and off of pressor support she can go to a regular floor. Qualifiers: Encounter type: initial encounter Fracture type: closed Fracture morphology: other dens Fracture alignment: displaced Qualified Code: S12.120A - Other closed displaced odontoid fracture, initial encounter (2) COPD (chronic obstructive pulmonary disease) Status: Chronic Comment: Adequately controlled Qualifiers: COPD type: emphysema Emphysema type: panlobular Qualified Code: J43.1 - Panlobular emphysema (3) Sarcoidosis Status: Chronic Comment: Noted per (4) ESRD (end stage renal disease) on dialysis Status: Chronic Comment: As per nephrology was dialyzed today (5) Diabetes mellitus type 2 in obese Status: Chronic Comment: Well-controlled on current regimen (6) Hyperlipidemia Status: Chronic Comment: On statin therapy and stable Qualifiers: Hyperlipidemia type: pure hypercholesterolemia Qualified Code: E78.00 - Pure hypercholesterolemia (7) Obstructive sleep apnea Status: Chronic Comment: Patient is refusing the nocturnal BiPAP. (8) Status post transcatheter aortic valve replacement (TAVR) using bioprosthesis Status: Acute Comment: Noted and stable (9) Diastolic dysfunction Status: Chronic Comment: Noted and stable (10) Atherosclerotic heart disease of tribe coronary artery without angina pectoris Status: Chronic Comment: Quiescent Qualifiers: [place] vs. transplanted heart: tribe heart Qualified Code: I25.10 - Atherosclerosis of tribe coronary artery of tribe heart without angina pectoris Subjective 24 Hr Interval Summary Free Text/Dictation Patient is a bit more vibrant today. She reports that her pain is less than 4 days ago but still 7-8 out of 10. Constitutional: no complaints Respiratory: no complaints Cardiovascular: no complaints Gastrointestinal: no complaints Exam/Review of Systems Vital Signs Vitals Vital Signs Date Time Temp Pulse Resp B/P Pulse Ox O2 Delivery O2 Flow Rate FiO2 09/16/16 14:45 91 20 77/61 100 09/16/16 14:00 Nasal Cannula 09/16/16 12:00 98.0 09/16/16 11:00 2.0 09/13/16 04:10 30 Intake and Output 09/15/16 09/15/16 09/16/16 15:00 23:00 07:00 Intake Total 435.0 ml 211.5 ml 71.25 ml Output Total 0 ml 0 ml Balance 435.0 ml 211.5 ml 71.25 ml Exam Constitutional: alert, oriented Neck: non-tender, supple Respiratory: clear to auscultation, normal air movement Cardiovascular: nl pulses, regular rate and rhythm Results Result Diagram: 09/16/16 0330 09/16/16 0330 Results 24 hrs Laboratory Tests Test 09/15/16 17:26 09/15/16 20:27 09/16/16 00:58 09/16/16 03:30 Bedside Glucose 109 115 100 White Blood Count 12.4 #H Red Blood Count 3.55 L Hemoglobin 10.5 L Hematocrit 32.3 L Mean Corpuscular Volume 91.0 Mean Corpuscular Hemoglobin 29.6 Mean Corpuscular Hemoglobin Concent 32.5 Red Cell Distribution Width 14.8 H Platelet Count 214 Mean Platelet Volume 11.1 H Neutrophils % 81.5 H Lymphocytes % 12.0 L Monocytes % 4.6 Eosinophils % 0.9 Basophils % 0.1 Nucleated Red Blood Cells % 0.0 Neutrophils # 10.1 H Lymphocytes # 1.5 Monocytes # 0.6 Eosinophils # 0.1 Basophils # 0.0 Nucleated Red Blood Cells # 0.0 Sodium Level 135 Potassium Level 4.5 Chloride Level 93 L Carbon Dioxide Level 26 Anion Gap 21 #H Blood Urea Nitrogen 60 H Creatinine 7.62 H Glucose Level 88 Calcium Level 8.6 Phosphorus Level 9.0 H Magnesium Level 2.2 Random Cortisol 9.5 Test 09/16/16 04:54 09/16/16 08:03 09/16/16 12:19 Bedside Glucose 87 84 124 Medications Medications Current Medications Acetaminophen/ Hydrocodone Bitart ([place] (5/325)) 1 tab Q6H PRN PO MODERATE PAIN LEVEL 4-6 Last administered on 09/15/16t 22:41; Admin Dose 1 TAB; Start at 17:30 Acetaminophen/ Hydrocodone Bitart ([place] (5/325)) 2 tab Q6H PRN PO SEVERE PAIN LEVEL 7-10 Last administered on 09/16/16 10:08; Admin Dose 2 TAB; Start at 17:30 Docusate Sodium (Colace) 100 mg Q12H PRN PO CONSTIPATION Last administered on 17:49; Admin Dose 100 MG; Start 09/07/16 at 17:30 Sodium Biphosphate/ Sodium Phosphate (Fleet Enema) 133 ml DAILY PRN [place] CONSTIPATION; Start 09/07/16 at 17:30 Famotidine (Pepcid Iv) 20 mg DAILY IV Last administered on 09/16/16 08:14; Admin Dose 20 MG; Start 09/08/16 at 09:00 Heparin Sodium (Porcine) (Heparin (5000 Units/0.5 ml)) 5,000 unit Q12 SC Last administered on 09/16/16 08:18; Admin Dose 5,000 UNIT; Start 09/07/16 at 21:00 Folic Acid (Folic Acid) 1 mg BID PO Last administered on 09/16/16 08:14; Admin Dose 1 MG; Start 09/07/16 at 21:00 Metoprolol Tartrate (Lopressor) 12.5 mg BID PO Last administered on 09/13/16 20:33; Admin Dose 12.5 MG; Start 09/07/16 at 23:00 Fenofibrate (Tricor) 48 mg QAM PO Last administered on 09/16/16 08:14; Admin Dose 48 MG; Start 09/08/16 at 09:00 Linagliptin (Tradjenta) 5 mg DAILY PO Last administered on 09/16/16 08:15; Admin Dose 5 MG; Start 09/07/16 at 18:00 Fish Oil (Fish Oil) 2,000 mg BID PO Last administered on 09/16/16 08:14; Admin Dose 2,000 MG; Start 09/07/16 at 21:00 Salmeterol Xinafoate/ Fluticasone (Advair 250/50 Diskus) 1 inh BID INH Last administered on 09/16/16 08:14; Admin Dose 1 INH; Start 09/07/16 at 23:00 Atorvastatin Calcium (Lipitor) 40 mg QHS PO Last administered on 09/14/16 20: 35; Admin Dose 40 MG; Start 09/07/16 at 21:00 Gabapentin (Neurontin) 900 mg QHS PO Last administered on 09/14/16 20:35; Admin Dose 900 MG; Start 09/07/16 at 21:00 Miscellaneous Information 1 ea NOTE XX ; Start 09/07/16 at 18:00 Glucose (Glutose) 15 gm Q15M PRN PO DECREASED GLUCOSE; Start 09/07/16 at 18:00 Glucose (Glutose) 22.5 gm Q15M PRN PO DECREASED GLUCOSE; Start 09/07/16 at 18: 00 Dextrose (D50w Syringe) 25 ml Q15M PRN IV DECREASED GLUCOSE; Start 09/07/16 at 18:00 Dextrose (D50w Syringe) 50 ml Q15M PRN IV DECREASED GLUCOSE; Start 09/07/16 at 18:00 Glucagon (Glucagen) 1 mg Q15M PRN IM DECREASED GLUCOSE; Start 09/07/16 at 18:00 Glucose (Glutose) 15 gm Q15M PRN BUCCAL DECREASED GLUCOSE; Start 09/07/16 at 18 :00 Naloxone HCl (Narcan) 0.2 mg Q2M PRN IV DECREASED REPIRATORY RATE Last administered on 09/08/16 02:44; Admin Dose 0.2 MG; Start 09/08/16 at 02:30 Tramadol HCl 50 mg 50 mg Q8H PRN PO PAIN Last administered on 09/16/16 12:51; Admin Dose 50 MG; Start 09/08/16 at 16:00 Phenylephrine HCl/ Dextrose (Efraín-Syneph/D5W) 500 ml @ 75 mls/hr TITRATE IV Last administered on 09/16/16 04:56; Admin Dose 11.25 MLS/HR; Start 09/09/16 at 03:00 Insulin Aspart (Novolog Insulin Pen) NOVOLOG *MILD* ALGORI... Q4 SC Last administered on 09/14/16 12:02; Admin Dose 1 UNIT; Start 09/09/16 at 05:00 Hydromorphone HCl 0.5 mg 0.5 mg Q2H PRN IV PAIN Last administered on 09/15/16 08:02; Admin Dose 0.5 MG; Start 09/09/16 at 08:30 Total Parenteral Nutrition 1,000 ml @ 40 mls/hr Q24H IV ; Start 09/11/16 at 16: 00; Status Future Hold Amiodarone HCl/ Dextrose (Cordarone Iv/ D5W) 500 ml @ 8.33 mls/hr Q24H IV Last administered on 09/13/16 20:39; Admin Dose 8.33 MLS/HR; Start 09/13/16 at 16:43 Amiodarone HCl (Cordarone) 200 mg DAILY PO Last administered on 09/16/16 08:14 ; Admin Dose 200 MG; Start 09/15/16 at 09:00 Gabapentin (Neurontin) 300 mg 09,16 PO Last administered on 09/16/16 08:17; Admin Dose 300 MG; Start 09/15/16 at 09:00 Prednisone (Prednisone) 5 mg DAILY PO Last administered on 09/16/16 08:15; Admin Dose 5 MG; Start 09/15/16 at 09:00 Prednisone (Prednisone) 1 mg QHS PO Last administered on 09/15/16 20:29; Admin Dose 1 MG; Start 09/14/16 at 21:00 Insulin Glargine (Lantus) 3 unit BID@08,20 SC Last administered on 09/16/16 08: 09; Admin Dose 3 UNIT; Start 09/15/16 at 20:00 TOMER GARCIA MD Sep 16, 2016 15:03
[2016-09-16] MEDS ORDERED: METHYLPREDNISOLONE 40 MG INJ IV ONE (15:30)
[2016-09-16] MEDS: AMIODARONE 900 MG in DEXTROSE 5% 482 ML IV SCH (16:03)
[2016-09-16] MEDS: predniSONE 2.5 MG TAB PO SCH (17:04)
[2016-09-16] MEDS: predniSONE 1 MG TAB PO SCH (20:35)
[2016-09-16] MEDS: ATORVASTATIN 40 MG TAB PO SCH (20:35)
[2016-09-17] VITALS (93 sets, daily range): BP systolic 53–193; BP diastolic 32–180; PULSE 72–93; RESP 10–25
[2016-09-17] MEDS: INSULIN ASPART [NOVOLOG] 3 ML PEN SC SCH ×6 (01:00→20:31)
[2016-09-17 05:08] LABS: ADD SCAN DIFF NO
[2016-09-17 05:12] LABS: BASOPHILS % 0.1 % (0.0-2.0); EOSINOPHILS # 0.1 10^3/ul (0.0-0.5); EOSINOPHILS % 1.7 % (0.0-7.0); HEMATOCRIT 31.2 % (37.0-47.0); HEMOGLOBIN 10.4 g/dl (12.0-16.0); LYMPHOCYTES # 1.4 10^3/ul (0.8-2.9); LYMPHOCYTES % 19.9 % (15.0-51.0); MEAN CORPUSCULAR HGB CONC 33.3 g/dl (32.0-37.0); MEAN CORPUSCULAR VOLUME 92.9 fl (82.0-101.0); MEAN PLATELET VOLUME 10.4 fl (7.4-10.4); MONOCYTE # 0.5 10^3/ul (0.3-0.9); MONOCYTES % 6.7 % (0.0-11.0); NEUTROPHIL # 4.9 10^3/ul (1.6-7.5); NEUTROPHILS % 70.7 % (39.0-77.0); PLATELET COUNT 221 10^3/UL (140-415); RED BLOOD COUNT 3.36 10^6/ul (4.20-5.40); RED CELL DISTRIBUTION WIDTH 14.9 % (11.5-14.5)
[2016-09-17 05:33] LABS: ALBUMIN 3.8 g/dl (3.3-4.9); ALBUMIN/GLOBULIN RATIO 1.22; CALCIUM 8.5 mg/dl (8.4-10.2); PHOSPHORUS 7.8 mg/dl (2.5-4.9); POTASSIUM 4.1 mmol/L (3.5-5.1); TOTAL PROTEIN 6.9 g/dl (6.1-8.1)
[2016-09-17] MEDS: PHENYLephrine 40 MG in DEXTROSE 5% 496 ML IV SCH ×2 (05:48→09:25)
[2016-09-17] MEDS: SEVELAMER CARBONATE 0.8 GM PKT PO SCH ×3 (08:37→16:42)
[2016-09-17] MEDS: FAMOTIDINE 20 MG INJ IV SCH (08:38)
[2016-09-17] MEDS: SALMETEROL/FLUTICASONE 250/50 INHA INH SCH ×2 (08:38→20:20)
[2016-09-17] MEDS: GABAPENTIN 300 MG CAP PO SCH ×3 (08:39→20:20)
[2016-09-17] MEDS: AMIODARONE 200 MG TAB PO SCH (08:39)
[2016-09-17] MEDS: FOLIC ACID 1 MG TAB PO SCH ×2 (08:39→20:20)
[2016-09-17] MEDS: FISH OIL 1,000 MG CAP PO SCH ×2 (08:39→20:21)
[2016-09-17] MEDS: METOPROLOL 25 MG TAB PO SCH ×2 (08:39→20:32)
[2016-09-17] MEDS: LINAGLIPTIN 5 MG TABLET PO SCH (08:40)
[2016-09-17] MEDS: FENOFIBRATE 48 MG TAB PO SCH (08:40)
[2016-09-17] MEDS: predniSONE 5 MG TAB PO SCH (08:40)
[2016-09-17] MEDS: HEPARIN 5,000 UNIT/0.5 ML VIAL SC SCH ×2 (08:42→20:31)
[2016-09-17] MEDS: INSULIN GLARGINE [LANtus] 3 ML PEN SC SCH ×2 (08:43→20:29)
--- NOTE | 2016-09-17 08:54 | CONS ---
Date/Time of Note Date/Time of Note DATE: 09/17/16 TIME: 08:52 Assessment/Plan Assessment/Plan Additional Assessment/Plan Assessment and recommendations; next 1. Patient admitted with a fall resulting in C-spine fracture without any neurological deficit or any cord compression. 2. History of diabetes, hypertension. 3. History of end-stage renal disease, on hemodialysis. 4. Hypertension, patient currently on phenylephrine at 30 mics per minute. Continue current treatment. Consultation Date/Type/Reason Admit Date/Time September 07, 2016 at 16:36 Initial Consult Date 09/08/16 Type of Consultation: Pulmonary/critical care Referring Provider: TOMER GARCIA MD 24 HR Interval Summary Free Text/Dictation Patient condition is stable. Remains completely awake alert. Patient is off TPN. And wants to eat now. Denies any shortness of breath, chest pain, abdominal pain, nausea vomiting or fever. General exam; elderly lady, awake alert currently in no distress. Exam/Review of Systems Vital Signs Vitals Vital Signs Date Time Temp Pulse Resp B/P Pulse Ox O2 Delivery O2 Flow Rate FiO2 09/17/16 08:00 91 09/17/16 06:30 14 109/50 100 09/17/16 06:00 Nasal Cannula 2.0 09/17/16 04:01 98.8 Intake and Output 09/16/16 09/16/16 09/17/16 15:00 23:00 07:00 Intake Total 642.5 ml 333.125 ml 123.75 ml Output Total 5600 ml 0 ml 0 ml Balance -4957.5 ml 333.125 ml 123.75 ml Exam HEENT exam; patient has a C-spine hard collar in place. Suppleness of neck was not evaluated. Patient is edentulous. Has bilateral intraocular lens implants. No thyromegaly. No neck masses. Chest examination; clear to auscultation. S1-S2 audible, no murmurs. Regular rhythm. Abdomen examination; soft, no organomegaly. Bowel sounds audible. Extremity exam; chronic appearing lower extremity skin changes. Pulses 1+ bilaterally. No edema. CO DIRECTOR examination : no focal motor deficit. Results Result Diagram: 09/17/16 0500 09/17/16 0500 Results 24 hrs Laboratory Tests Test 09/16/16 12:19 09/16/16 16:53 09/16/16 20:38 09/17/16 00:59 Bedside Glucose 124 168 106 111 Test 09/17/16 05:00 09/17/16 05:51 White Blood Count 7.0 # Red Blood Count 3.36 L Hemoglobin 10.4 L Hematocrit 31.2 L Mean Corpuscular Volume 92.9 Mean Corpuscular Hemoglobin 31.0 Mean Corpuscular Hemoglobin Concent 33.3 Red Cell Distribution Width 14.9 H Platelet Count 221 Mean Platelet Volume 10.4 Neutrophils % 70.7 Lymphocytes % 19.9 Monocytes % 6.7 Eosinophils % 1.7 Basophils % 0.1 Nucleated Red Blood Cells % 0.0 Neutrophils # 4.9 Lymphocytes # 1.4 Monocytes # 0.5 Eosinophils # 0.1 Basophils # 0.0 Nucleated Red Blood Cells # 0.0 Sodium Level 137 Potassium Level 4.1 Chloride Level 96 L Carbon Dioxide Level 31 Anion Gap 14 # Blood Urea Nitrogen 43 #H Creatinine 6.00 H Glucose Level 98 Calcium Level 8.5 Phosphorus Level 7.8 H Total Bilirubin 0.0 L Direct Bilirubin 0.00 Indirect Bilirubin 0.0 Aspartate Amino Transf (AST/SGOT) 14 L Alanine Aminotransferase (ALT/SGPT) 29 Alkaline Phosphatase 48 Total Protein 6.9 Albumin 3.8 Globulin 3.10 Albumin/Globulin Ratio 1.22 Bedside Glucose 99 Medications Medications Current Medications Acetaminophen/ Hydrocodone Bitart ([place] (5/325)) 1 tab Q6H PRN PO MODERATE PAIN LEVEL 4-6 Last administered on 09/15/16 22:41; Admin Dose 1 TAB; Start at 17:30 Acetaminophen/ Hydrocodone Bitart ([place] (5/325)) 2 tab Q6H PRN PO SEVERE PAIN LEVEL 7-10 Last administered on 09/16/16 10:08; Admin Dose 2 TAB; Start at 17:30 Docusate Sodium (Colace) 100 mg Q12H PRN PO CONSTIPATION Last administered on 17:49; Admin Dose 100 MG; Start 09/07/16 at 17:30 Sodium Biphosphate/ Sodium Phosphate (Fleet Enema) 133 ml DAILY PRN [place] CONSTIPATION; Start 09/07/16 at 17:30 Famotidine (Pepcid Iv) 20 mg DAILY IV Last administered on 09/16/16 08:14; Admin Dose 20 MG; Start 09/08/16 at 09:00 Heparin Sodium (Porcine) (Heparin (5000 Units/0.5 ml)) 5,000 unit Q12 SC Last administered on 09/16/16 20:43; Admin Dose 5,000 UNIT; Start 09/07/16 at 21:00 Folic Acid (Folic Acid) 1 mg BID PO Last administered on 09/16/16 20:36; Admin Dose 1 MG; Start 09/07/16 at 21:00 Metoprolol Tartrate (Lopressor) 12.5 mg BID PO Last administered on 09/13/16 20:33; Admin Dose 12.5 MG; Start 09/07/16 at 23:00 Fenofibrate (Tricor) 48 mg QAM PO Last administered on 09/16/16 08:14; Admin Dose 48 MG; Start 09/08/16 at 09:00 Linagliptin (Tradjenta) 5 mg DAILY PO Last administered on 09/16/16 08:15; Admin Dose 5 MG; Start 09/07/16 at 18:00 Fish Oil (Fish Oil) 2,000 mg BID PO Last administered on 09/16/16 20:36; Admin Dose 2,000 MG; Start 09/07/16 at 21:00 Salmeterol Xinafoate/ Fluticasone (Advair 250/50 Diskus) 1 inh BID INH Last administered on 09/16/16 20:36; Admin Dose 1 INH; Start 09/07/16 at 23:00 Atorvastatin Calcium (Lipitor) 40 mg QHS PO Last administered on 09/16/16 20:35 ; Admin Dose 40 MG; Start 09/07/16 at 21:00 Gabapentin (Neurontin) 900 mg QHS PO Last administered on 09/16/16 20:35; Admin Dose 900 MG; Start 09/07/16 at 21:00 Miscellaneous Information 1 ea NOTE XX ; Start 09/07/16 at 18:00 Glucose (Glutose) 15 gm Q15M PRN PO DECREASED GLUCOSE; Start 09/07/16 at 18:00 Glucose (Glutose) 22.5 gm Q15M PRN PO DECREASED GLUCOSE; Start 09/07/16 at 18: 00 Dextrose (D50w Syringe) 25 ml Q15M PRN IV DECREASED GLUCOSE; Start 09/07/16 at 18:00 Dextrose (D50w Syringe) 50 ml Q15M PRN IV DECREASED GLUCOSE; Start 09/07/16 at 18:00 Glucagon (Glucagen) 1 mg Q15M PRN IM DECREASED GLUCOSE; Start 09/07/16 at 18:00 Glucose (Glutose) 15 gm Q15M PRN BUCCAL DECREASED GLUCOSE; Start 09/07/16 at 18 :00 Naloxone HCl (Narcan) 0.2 mg Q2M PRN IV DECREASED REPIRATORY RATE Last administered on 09/08/16 02:44; Admin Dose 0.2 MG; Start 09/08/16 at 02:30 Tramadol HCl 50 mg 50 mg Q8H PRN PO PAIN Last administered on 09/16/16 12:51; Admin Dose 50 MG; Start 09/08/16 at 16:00 Phenylephrine HCl/ Dextrose (Efraín-Syneph/D5W) 500 ml @ 75 mls/hr TITRATE IV Last administered on 09/17/16 05:48; Admin Dose 11.25 MLS/HR; Start 09/09/16 at 03:00 Insulin Aspart (Novolog Insulin Pen) NOVOLOG *MILD* ALGORI... Q4 SC Last administered on 09/16/16 17:04; Admin Dose 1 UNIT; Start 09/09/16 at 05:00 Hydromorphone HCl 0.5 mg 0.5 mg Q2H PRN IV PAIN Last administered on 09/15/16 08:02; Admin Dose 0.5 MG; Start 09/09/16 at 08:30 Total Parenteral Nutrition 1,000 ml @ 40 mls/hr Q24H IV ; Start 09/11/16 at 16: 00; Status Future Hold Amiodarone HCl/ Dextrose (Cordarone Iv/ D5W) 500 ml @ 8.33 mls/hr Q24H IV Last administered on 09/13/16 20:39; Admin Dose 8.33 MLS/HR; Start 09/13/16 at 16:43 Amiodarone HCl (Cordarone) 200 mg DAILY PO Last administered on 09/16/16 08:14 ; Admin Dose 200 MG; Start 09/15/16 at 09:00 Gabapentin (Neurontin) 300 mg PO Last administered on 09/16/16 16:12; Admin Dose 300 MG; Start 09/15/16 at 09:00 Prednisone (Prednisone) 5 mg DAILY PO Last administered on 09/16/16 08:15; Admin Dose 5 MG; Start 09/15/16 at 09:00 Prednisone (Prednisone) 1 mg QHS PO Last administered on 09/16/16 20:35; Admin Dose 1 MG; Start 09/14/16 at 21:00 Insulin Glargine (Lantus) 3 unit BID@08,20 SC Last administered on 09/16/16 20: 43; Admin Dose 3 UNIT; Start 09/15/16 at 20:00 LAWRENCE GOODE Sep 17, 2016 08:54
[2016-09-17] MEDS: HYDROCODONE/APAP (5/325) TAB PO PRN ×2 (13:48→20:57)
--- NOTE | 2016-09-17 15:27 | CONS ---
Date/Time of Note Date/Time of Note DATE: 09/17/16 TIME: 15:25 Assessment/Plan Assessment/Plan Additional Assessment/Plan (1) Atrial fibrillation Status: Chronic Comment: rate controlled, chronic (2) C2 cervical fracture Status: Acute Comment: in collar... neuro stable... getting up w PT now (3) Sarcoidosis Status: Chronic Comment: on prednisone (4) ESRD (end stage renal disease) on dialysis Status: Chronic Comment: next hd monday (5) hypotension: on low dose efraín. cont to wean as tolerated Consultation Date/Type/Reason Admit Date/Time September 07, 2016 at 16:36 Initial Consult Date 09/08/16 Type of Consultation: Pulmonary/critical care Reason for Consultation resting comfortably. still on low dose pressors. no neuro chnages per nursing Referring Provider: TOMER GARCIA MD Exam/Review of Systems Vital Signs Vitals Vital Signs Date Time Temp Pulse Resp B/P Pulse Ox O2 Delivery O2 Flow Rate FiO2 09/17/16 14:45 75 20 107/50 100 09/17/16 14:00 Nasal Cannula 09/17/16 08:00 3.0 09/17/16 08:00 98.5 Intake and Output 09/16/16 09/16/16 09/17/16 15:00 23:00 07:00 Intake Total 642.5 ml 333.125 ml 123.75 ml Output Total 5600 ml 0 ml 0 ml Balance -4957.5 ml 333.125 ml 123.75 ml Exam Constitutional: alert, frail Psych: no complaints Head: normocephalic Eyes: nl conjunctiva Neck: non-tender, supple Respiratory: clear to auscultation, normal air movement Cardiovascular: edema, nl pulses, regular rate and rhythm Gastrointestinal: non-tender, soft Results Result Diagram: 09/17/16 0500 09/17/16 0500 Results 24 hrs Laboratory Tests Test 09/16/16 16:53 09/16/16 20:38 09/17/16 00:59 09/17/16 05:00 Bedside Glucose 168 106 111 White Blood Count 7.0 # Red Blood Count 3.36 L Hemoglobin 10.4 L Hematocrit 31.2 L Mean Corpuscular Volume 92.9 Mean Corpuscular Hemoglobin 31.0 Mean Corpuscular Hemoglobin Concent 33.3 Red Cell Distribution Width 14.9 H Platelet Count 221 Mean Platelet Volume 10.4 Neutrophils % 70.7 Lymphocytes % 19.9 Monocytes % 6.7 Eosinophils % 1.7 Basophils % 0.1 Nucleated Red Blood Cells % 0.0 Neutrophils # 4.9 Lymphocytes # 1.4 Monocytes # 0.5 Eosinophils # 0.1 Basophils # 0.0 Nucleated Red Blood Cells # 0.0 Sodium Level 137 Potassium Level 4.1 Chloride Level 96 L Carbon Dioxide Level 31 Anion Gap 14 # Blood Urea Nitrogen 43 #H Creatinine 6.00 H Glucose Level 98 Calcium Level 8.5 Phosphorus Level 7.8 H Total Bilirubin 0.0 L Direct Bilirubin 0.00 Indirect Bilirubin 0.0 Aspartate Amino Transf (AST/SGOT) 14 L Alanine Aminotransferase (ALT/SGPT) 29 Alkaline Phosphatase 48 Total Protein 6.9 Albumin 3.8 Globulin 3.10 Albumin/Globulin Ratio 1.22 Test 09/17/16 05:51 09/17/16 08:36 09/17/16 12:29 Bedside Glucose 99 90 103 Medications Medications Current Medications Acetaminophen/ Hydrocodone Bitart ([place] (5/325)) 1 tab Q6H PRN PO MODERATE PAIN LEVEL 4-6 Last administered on 09/17/16 13:48; Admin Dose 1 TAB; Start at 17:30 Acetaminophen/ Hydrocodone Bitart ([place] (5/325)) 2 tab Q6H PRN PO SEVERE PAIN LEVEL 7-10 Last administered on 09/16/16 10:08; Admin Dose 2 TAB; Start at 17:30 Docusate Sodium (Colace) 100 mg Q12H PRN PO CONSTIPATION Last administered on 17:49; Admin Dose 100 MG; Start 09/07/16 at 17:30 Sodium Biphosphate/ Sodium Phosphate (Fleet Enema) 133 ml DAILY PRN [place] CONSTIPATION; Start 09/07/16 at 17:30 Famotidine (Pepcid Iv) 20 mg DAILY IV Last administered on 09/17/16 08:38; Admin Dose 20 MG; Start 09/08/16 at 09:00 Heparin Sodium (Porcine) (Heparin (5000 Units/0.5 ml)) 5,000 unit Q12 SC Last administered on 09/17/16 08:42; Admin Dose 5,000 UNIT; Start 09/07/16 at 21:00 Folic Acid (Folic Acid) 1 mg BID PO Last administered on 09/17/16 08:39; Admin Dose 1 MG; Start 09/07/16 at 21:00 Metoprolol Tartrate (Lopressor) 12.5 mg BID PO Last administered on 09/13/16 20:33; Admin Dose 12.5 MG; Start 09/07/16 at 23:00 Fenofibrate (Tricor) 48 mg QAM PO Last administered on 09/17/16 08:40; Admin Dose 48 MG; Start 09/08/16 at 09:00 Linagliptin (Tradjenta) 5 mg DAILY PO Last administered on 09/17/16 08:40; Admin Dose 5 MG; Start 09/07/16 at 18:00 Fish Oil (Fish Oil) 2,000 mg BID PO Last administered on 09/17/16 08:39; Admin Dose 2,000 MG; Start 09/07/16 at 21:00 Salmeterol Xinafoate/ Fluticasone (Advair 250/50 Diskus) 1 inh BID INH Last administered on 09/17/16 08:38; Admin Dose 1 INH; Start 09/07/16 at 23:00 Atorvastatin Calcium (Lipitor) 40 mg QHS PO Last administered on 09/16/16 20:35 ; Admin Dose 40 MG; Start 09/07/16 at 21:00 Gabapentin (Neurontin) 900 mg QHS PO Last administered on 09/16/16 20:35; Admin Dose 900 MG; Start 09/07/16 at 21:00 Miscellaneous Information 1 ea NOTE XX ; Start 09/07/16 at 18:00 Glucose (Glutose) 15 gm Q15M PRN PO DECREASED GLUCOSE; Start 09/07/16 at 18:00 Glucose (Glutose) 22.5 gm Q15M PRN PO DECREASED GLUCOSE; Start 09/07/16 at 18: 00 Dextrose (D50w Syringe) 25 ml Q15M PRN IV DECREASED GLUCOSE; Start 09/07/16 at 18:00 Dextrose (D50w Syringe) 50 ml Q15M PRN IV DECREASED GLUCOSE; Start 09/07/16 at 18:00 Glucagon (Glucagen) 1 mg Q15M PRN IM DECREASED GLUCOSE; Start 09/07/16 at 18:00 Glucose (Glutose) 15 gm Q15M PRN BUCCAL DECREASED GLUCOSE; Start 09/07/16 at 18 :00 Naloxone HCl (Narcan) 0.2 mg Q2M PRN IV DECREASED REPIRATORY RATE Last administered on 09/08/16 02:44; Admin Dose 0.2 MG; Start 09/08/16 at 02:30 Tramadol HCl 50 mg 50 mg Q8H PRN PO PAIN Last administered on 09/16/16 12:51; Admin Dose 50 MG; Start 09/08/16 at 16:00 Phenylephrine HCl/ Dextrose (Efraín-Syneph/D5W) 500 ml @ 75 mls/hr TITRATE IV Last administered on 09/17/16 09:25; Admin Dose 45 MLS/HR; Start 09/09/16 at 03: 00 Insulin Aspart (Novolog Insulin Pen) NOVOLOG *MILD* [place]I... Q4 SC Last administered on 09/16/16 17:04; Admin Dose 1 UNIT; Start 09/09/16 at 05:00 Hydromorphone HCl 0.5 mg 0.5 mg Q2H PRN IV PAIN Last administered on 09/15/16 08:02; Admin Dose 0.5 MG; Start 09/09/16 at 08:30 Total Parenteral Nutrition 1,000 ml @ 40 mls/hr Q24H IV ; Start 09/11/16 at 16: 00; Status Future Hold Amiodarone HCl/ Dextrose (Cordarone Iv/ D5W) 500 ml @ 8.33 mls/hr Q24H IV Last administered on 09/13/16 20:39; Admin Dose 8.33 MLS/HR; Start 09/13/16 at 16:43 Amiodarone HCl (Cordarone) 200 mg DAILY PO Last administered on 09/17/16 08:39 ; Admin Dose 200 MG; Start 09/15/16 at 09:00 Gabapentin (Neurontin) 300 mg 16 PO Last administered on 09/17/16 08:39; Admin Dose 300 MG; Start 09/15/16 at 09:00 Prednisone (Prednisone) 5 mg DAILY PO Last administered on 09/17/16 08:40; Admin Dose 5 MG; Start 09/15/16 at 09:00 Prednisone (Prednisone) 1 mg QHS PO Last administered on 09/16/16 20:35; Admin Dose 1 MG; Start 09/14/16 at 21:00 Insulin Glargine (Lantus) 3 unit BID@08,20 SC Last administered on 09/17/16 08: 43; Admin Dose 3 UNIT; Start 09/15/16 at 20:00 PEDRO ESCAMILLA MD Sep 17, 2016 15:27
[2016-09-17] MEDS: AMIODARONE 900 MG in DEXTROSE 5% 482 ML IV SCH (16:30)
[2016-09-17] MEDS: predniSONE 2.5 MG TAB PO SCH (16:39)
--- NOTE | 2016-09-17 18:45 | PN ---
Date/Time of Note Date/Time of Note DATE: 09/17/16 TIME: 18:35 Assessment/Plan VTE Prophylaxis VTE Prophylaxis Intervention: anti-embolic stocking Lines/Catheters IV Catheter Type (from Nrs): [place] Lock Urinary Cath still in place: No Assessment/Plan Problems: (1) Confused but orients easily Status: Acute Comment: will send blood cultures to rule out infectious cause of confusion. (2) Fall Status: Acute Comment: resultant C2 fracture now in a hard collar. Qualifiers: Encounter type: initial encounter Qualified Code: W19.XXXA - Fall, initial encounter (3) C2 cervical fracture Status: Acute Comment: Management per ortho Qualifiers: Encounter type: initial encounter Fracture type: closed Fracture morphology: other dens Fracture alignment: displaced Qualified Code: S12.120A - Other closed displaced odontoid fracture, initial encounter (4) Atrial fibrillation Status: Chronic Comment: Rate controlled. Qualifiers: Atrial fibrillation type: chronic Qualified Code: I48.2 - Chronic atrial fibrillation (5) COPD (chronic obstructive pulmonary disease) Status: Chronic Comment: no new issues. Management per pulmonary team Qualifiers: COPD type: emphysema Emphysema type: panlobular Qualified Code: J43.1 - Panlobular emphysema (6) Sarcoidosis Status: Chronic Comment: on corticosteroids chronically (7) ESRD (end stage renal disease) on dialysis Status: Chronic Comment: HD per nephrology (8) Diabetes mellitus type 2 in obese Status: Chronic Comment: good glycemic control (9) Hypertension associated with chronic kidney disease due to type 2 diabetes mellitus Status: Chronic Comment: Currently hypotensive requiring pressors for BP stabilization. Once off cardiopressors will plan for transfer to floor. (10) Obstructive sleep apnea Status: Chronic Comment: BIPAP while sleeping Subjective 24 Hr Interval Summary Free Text/Dictation Patient denies pain. Wants to "be moved back to the other floor". Exam/Review of Systems Vital Signs Vitals Vital Signs Date Time Temp Pulse Resp B/P Pulse Ox O2 Delivery O2 Flow Rate FiO2 09/17/16 18:00 78 10 103/43 100 Nasal Cannula 09/17/16 17:34 2.0 09/17/16 08:00 98.5 Intake and Output 09/16/16 09/16/16 09/17/16 15:00 23:00 07:00 Intake Total 642.5 ml 333.125 ml 123.75 ml Output Total 5600 ml 0 ml 0 ml Balance -4957.5 ml 333.125 ml 123.75 ml Exam Constitutional: alert, obese, oriented (x2), well developed Psych: confusion (somewhat confused) Neck: other (in hard collar) Respiratory: clear to auscultation, normal air movement Cardiovascular: irregular rhythm Gastrointestinal: soft Musculoskeletal: nl extremities to inspection Results POC glucose and labs reviewed Result Diagram: 09/17/16 0500 09/17/16 0500 Results 24 hrs Laboratory Tests Test 09/16/16 20:38 09/17/16 00:59 09/17/16 05:00 09/17/16 05:51 Bedside Glucose 106 111 99 White Blood Count 7.0 # Red Blood Count 3.36 L Hemoglobin 10.4 L Hematocrit 31.2 L Mean Corpuscular Volume 92.9 Mean Corpuscular Hemoglobin 31.0 Mean Corpuscular Hemoglobin Concent 33.3 Red Cell Distribution Width 14.9 H Platelet Count 221 Mean Platelet Volume 10.4 Neutrophils % 70.7 Lymphocytes % 19.9 Monocytes % 6.7 Eosinophils % 1.7 Basophils % 0.1 Nucleated Red Blood Cells % 0.0 Neutrophils # 4.9 Lymphocytes # 1.4 Monocytes # 0.5 Eosinophils # 0.1 Basophils # 0.0 Nucleated Red Blood Cells # 0.0 Sodium Level 137 Potassium Level 4.1 Chloride Level 96 L Carbon Dioxide Level 31 Anion Gap 14 # Blood Urea Nitrogen 43 #H Creatinine 6.00 H Glucose Level 98 Calcium Level 8.5 Phosphorus Level 7.8 H Total Bilirubin 0.0 L Direct Bilirubin 0.00 Indirect Bilirubin 0.0 Aspartate Amino Transf (AST/SGOT) 14 L Alanine Aminotransferase (ALT/SGPT) 29 Alkaline Phosphatase 48 Total Protein 6.9 Albumin 3.8 Globulin 3.10 Albumin/Globulin Ratio 1.22 Test 09/17/16 08:36 09/17/16 12:29 09/17/16 16:46 Bedside Glucose 90 103 116 Medications Medications Current Medications Acetaminophen/ Hydrocodone Bitart ([place] (5/325)) 1 tab Q6H PRN PO MODERATE PAIN LEVEL 4-6 Last administered on 09/17/16t 13:48; Admin Dose 1 TAB; Start at 17:30 Acetaminophen/ Hydrocodone Bitart ([place] (5/325)) 2 tab Q6H PRN PO SEVERE PAIN LEVEL 7-10 Last administered on 09/16/16 10:08; Admin Dose 2 TAB; Start at 17:30 Docusate Sodium (Colace) 100 mg Q12H PRN PO CONSTIPATION Last administered on 17:49; Admin Dose 100 MG; Start 09/07/16 at 17:30 Sodium Biphosphate/ Sodium Phosphate (Fleet Enema) 133 ml DAILY PRN [place] CONSTIPATION; Start 09/07/16 at 17:30 Famotidine (Pepcid Iv) 20 mg DAILY IV Last administered on 09/17/16 08:38; Admin Dose 20 MG; Start 09/08/16 at 09:00 Heparin Sodium (Porcine) (Heparin (5000 Units/0.5 ml)) 5,000 unit Q12 SC Last administered on 09/17/16 08:42; Admin Dose 5,000 UNIT; Start 09/07/16 at 21:00 Folic Acid (Folic Acid) 1 mg BID PO Last administered on 09/17/16 08:39; Admin Dose 1 MG; Start 09/07/16 at 21:00 Metoprolol Tartrate (Lopressor) 12.5 mg BID PO Last administered on 09/13/16 20:33; Admin Dose 12.5 MG; Start 09/07/16 at 23:00 Fenofibrate (Tricor) 48 mg QAM PO Last administered on 09/17/16 08:40; Admin Dose 48 MG; Start 09/08/16 at 09:00 Linagliptin (Tradjenta) 5 mg DAILY PO Last administered on 09/17/16 08:40; Admin Dose 5 MG; Start 09/07/16 at 18:00 Fish Oil (Fish Oil) 2,000 mg BID PO Last administered on 09/17/16 08:39; Admin Dose 2,000 MG; Start 09/07/16 at 21:00 Salmeterol Xinafoate/ Fluticasone (Advair 250/50 Diskus) 1 inh BID INH Last administered on 09/17/16 08:38; Admin Dose 1 INH; Start 09/07/16 at 23:00 Atorvastatin Calcium (Lipitor) 40 mg QHS PO Last administered on 09/16/16 20:35 ; Admin Dose 40 MG; Start 09/07/16 at 21:00 Gabapentin (Neurontin) 900 mg QHS PO Last administered on 09/16/16 20:35; Admin Dose 900 MG; Start 09/07/16 at 21:00 Miscellaneous Information 1 ea NOTE XX ; Start 09/07/16 at 18:00 Glucose (Glutose) 15 gm Q15M PRN PO DECREASED GLUCOSE; Start 09/07/16 at 18:00 Glucose (Glutose) 22.5 gm Q15M PRN PO DECREASED GLUCOSE; Start 09/07/16 at 18: 00 Dextrose (D50w Syringe) 25 ml Q15M PRN IV DECREASED GLUCOSE; Start 09/07/16 at 18:00 Dextrose (D50w Syringe) 50 ml Q15M PRN IV DECREASED GLUCOSE; Start 09/07/16 at 18:00 Glucagon (Glucagen) 1 mg Q15M PRN IM DECREASED GLUCOSE; Start 09/07/16 at 18:00 Glucose (Glutose) 15 gm Q15M PRN BUCCAL DECREASED GLUCOSE; Start 09/07/16 at 18 :00 Naloxone HCl (Narcan) 0.2 mg Q2M PRN IV DECREASED REPIRATORY RATE Last administered on 09/08/16 02:44; Admin Dose 0.2 MG; Start 09/08/16 at 02:30 Tramadol HCl 50 mg 50 mg Q8H PRN PO PAIN Last administered on 09/16/16 12:51; Admin Dose 50 MG; Start 09/08/16 at 16:00 Phenylephrine HCl/ Dextrose (Efraín-Syneph/D5W) 500 ml @ 75 mls/hr TITRATE IV Last administered on 09/17/16 09:25; Admin Dose 45 MLS/HR; Start 09/09/16 at 03: 00 Insulin Aspart (Novolog Insulin Pen) NOVOLOG *MILD* ALGORI... Q4 SC Last administered on 09/16/16 17:04; Admin Dose 1 UNIT; Start 09/09/16 at 05:00 Hydromorphone HCl 0.5 mg 0.5 mg Q2H PRN IV PAIN Last administered on 09/15/16 08:02; Admin Dose 0.5 MG; Start 09/09/16 at 08:30 Total Parenteral Nutrition 1,000 ml @ 40 mls/hr Q24H IV ; Start 09/11/16 at 16: 00; Status Future Hold Amiodarone HCl/ Dextrose (Cordarone Iv/ D5W) 500 ml @ 8.33 mls/hr Q24H IV Last administered on 09/13/16 20:39; Admin Dose 8.33 MLS/HR; Start 09/13/16 at 16:43 Amiodarone HCl (Cordarone) 200 mg DAILY PO Last administered on 09/17/16 08:39 ; Admin Dose 200 MG; Start 09/15/16 at 09:00 Gabapentin (Neurontin) 300 mg 16 PO Last administered on 09/17/16 16:38; Admin Dose 300 MG; Start 09/15/16 at 09:00 Prednisone (Prednisone) 5 mg DAILY PO Last administered on 09/17/16 08:40; Admin Dose 5 MG; Start 09/15/16 at 09:00 Prednisone (Prednisone) 1 mg QHS PO Last administered on 09/16/16 20:35; Admin Dose 1 MG; Start 09/14/16 at 21:00 Insulin Glargine (Lantus) 3 unit BID@08,20 SC Last administered on 09/17/16 08: 43; Admin Dose 3 UNIT; Start 09/15/16 at 20:00 MARILEE HERNANDEZ MD Sep 17, 2016 18:45
[2016-09-17] MEDS: ATORVASTATIN 40 MG TAB PO SCH (20:20)
[2016-09-17] MEDS: predniSONE 1 MG TAB PO SCH (20:21)
[2016-09-18] VITALS (38 sets, daily range): BP systolic 85–145; BP diastolic 27–78; PULSE 75–99; RESP 10–27
[2016-09-18] MEDS: INSULIN ASPART [NOVOLOG] 3 ML PEN SC SCH ×6 (01:00→21:00)
[2016-09-18 04:28] LABS: ADD SCAN DIFF NO
[2016-09-18 04:34] LABS: BASOPHILS % 0.2 % (0.0-2.0); EOSINOPHILS # 0.1 10^3/ul (0.0-0.5); HEMATOCRIT 29.5 % (37.0-47.0); HEMOGLOBIN 9.5 g/dl (12.0-16.0); LYMPHOCYTES # 1.1 10^3/ul (0.8-2.9); LYMPHOCYTES % 19.3 % (15.0-51.0); MEAN CORPUSCULAR HEMOGLOBIN 29.4 pg (29.0-33.0); MEAN CORPUSCULAR HGB CONC 32.2 g/dl (32.0-37.0); MEAN CORPUSCULAR VOLUME 91.3 fl (82.0-101.0); MEAN PLATELET VOLUME 10.8 fl (7.4-10.4); MONOCYTE # 0.4 10^3/ul (0.3-0.9); MONOCYTES % 6.8 % (0.0-11.0); NEUTROPHIL # 4.3 10^3/ul (1.6-7.5); PLATELET COUNT 242 10^3/UL (140-415); RED BLOOD COUNT 3.23 10^6/ul (4.20-5.40); RED CELL DISTRIBUTION WIDTH 14.8 % (11.5-14.5); WHITE BLOOD COUNT 5.9 10^3/ul (4.8-10.8)
[2016-09-18 05:33] LABS: ALBUMIN 3.6 g/dl (3.3-4.9); ALBUMIN/GLOBULIN RATIO 1.28; CALCIUM 8.3 mg/dl (8.4-10.2); POTASSIUM 4.6 mmol/L (3.5-5.1); TOTAL PROTEIN 6.4 g/dl (6.1-8.1)
[2016-09-18 05:43] LABS: CREATININE 7.26 mg/dl (0.44-1.00)
[2016-09-18] MEDS: SEVELAMER CARBONATE 0.8 GM PKT PO SCH ×3 (08:30→17:40)
[2016-09-18] MEDS: FOLIC ACID 1 MG TAB PO SCH ×2 (08:42→21:16)
[2016-09-18] MEDS: FENOFIBRATE 48 MG TAB PO SCH (08:42)
[2016-09-18] MEDS: FAMOTIDINE 20 MG INJ IV SCH (08:42)
[2016-09-18] MEDS: predniSONE 5 MG TAB PO SCH (08:42)
[2016-09-18] MEDS: FISH OIL 1,000 MG CAP PO SCH ×2 (08:42→21:16)
[2016-09-18] MEDS: AMIODARONE 200 MG TAB PO SCH (08:42)
[2016-09-18] MEDS: SALMETEROL/FLUTICASONE 250/50 INHA INH SCH ×2 (08:43→21:15)
[2016-09-18] MEDS: METOPROLOL 25 MG TAB PO SCH ×2 (08:43→21:17)
[2016-09-18] MEDS: GABAPENTIN 300 MG CAP PO SCH ×3 (08:44→21:21)
[2016-09-18] MEDS: LINAGLIPTIN 5 MG TABLET PO SCH (08:44)
[2016-09-18] MEDS: HEPARIN 5,000 UNIT/0.5 ML VIAL SC SCH ×2 (08:59→21:25)
--- NOTE | 2016-09-18 10:23 | CONS ---
Date/Time of Note Date/Time of Note DATE: 09/18/16 TIME: 10:21 Assessment/Plan Assessment/Plan Additional Assessment/Plan Assessment recommendations; 1. Patient admitted for a fall resulting in C-spine fracture without any cord compromise or any neurological deficit. 2. History of diabetes, hypertension, end-stage renal disease. 3. Hypotension with interval resolution. Patient off pressor support. Continue current treatment. Patient will transfer to the medical floor. Consultation Date/Type/Reason Admit Date/Time September 07, 2016 at 16:36 Initial Consult Date 09/08/16 Type of Consultation: Pulmonary/critical care Referring Provider: OTMER GARCIA MD 24 HR Interval Summary Free Text/Dictation Patient condition stable. Remains completely awake alert. Denies any shortness of breath, chest pain. Able to eat. General exam; elderly lady, awake alert currently in no distress. Exam/Review of Systems Vital Signs Vitals Vital Signs Date Time Temp Pulse Resp B/P Pulse Ox O2 Delivery O2 Flow Rate FiO2 09/18/16 08:00 Nasal Cannula 2.0 09/18/16 08:00 89 09/18/16 07:00 13 121/37 100 09/18/16 04:00 98.5 Intake and Output 09/17/16 09/17/16 09/18/16 15:00 23:00 07:00 Intake Total 80 ml 746.25 ml 270.01 ml Output Total 0 ml 0 ml 0 ml Balance 80 ml 746.25 ml 270.01 ml Exam HEENT exam; patient's neck is in a hard C-spine collar. Patient is edentulous. Has a right cataract. Has a left intraocular lens implant. No neck masses. Chest examined; clear to ulceration. S1-S2 audible, no murmurs. Regular rhythm. Abdomen examination; soft, nondistended. No organomegaly. Bowel sounds audible. Extremity exam; no peripheral edema. ACTIVITIES SPECIALIST examination; no focal deficit. Results Result Diagram: 09/18/16 0345 09/18/16 0345 Results 24 hrs Laboratory Tests Test 09/17/16 12:29 09/17/16 16:46 09/17/16 20:22 09/18/16 01:25 Bedside Glucose 103 116 114 122 Test 09/18/16 03:45 09/18/16 04:49 09/18/16 08:29 White Blood Count 5.9 Red Blood Count 3.23 L Hemoglobin 9.5 L Hematocrit 29.5 L Mean Corpuscular Volume 91.3 Mean Corpuscular Hemoglobin 29.4 Mean Corpuscular Hemoglobin Concent 32.2 Red Cell Distribution Width 14.8 H Platelet Count 242 Mean Platelet Volume 10.8 H Neutrophils % 72.0 Lymphocytes % 19.3 Monocytes % 6.8 Eosinophils % 1.0 Basophils % 0.2 Nucleated Red Blood Cells % 0.0 Neutrophils # 4.3 Lymphocytes # 1.1 Monocytes # 0.4 Eosinophils # 0.1 Basophils # 0.0 Nucleated Red Blood Cells # 0.0 Sodium Level 133 L Potassium Level 4.6 Chloride Level 93 L Carbon Dioxide Level 29 Anion Gap 16 Blood Urea Nitrogen 61 H Creatinine 7.26 H Glucose Level 99 Calcium Level 8.3 L Total Bilirubin 0.0 L Direct Bilirubin 0.00 Indirect Bilirubin 0.0 Aspartate Amino Transf (AST/SGOT) 17 Alanine Aminotransferase (ALT/SGPT) 28 Alkaline Phosphatase 40 L Total Protein 6.4 Albumin 3.6 Globulin 2.80 Albumin/Globulin Ratio 1.28 Prealbumin 17.2 L Bedside Glucose 97 79 Medications Medications Current Medications Acetaminophen/ Hydrocodone Bitart ([place] (5/325)) 1 tab Q6H PRN PO MODERATE PAIN LEVEL 4-6 Last administered on 09/17/16 20:57; Admin Dose 1 TAB; Start at 17:30 Acetaminophen/ Hydrocodone Bitart ([place] (5/325)) 2 tab Q6H PRN PO SEVERE PAIN LEVEL 7-10 Last administered on 09/16/16 10:08; Admin Dose 2 TAB; Start at 17:30 Docusate Sodium (Colace) 100 mg Q12H PRN PO CONSTIPATION Last administered on 17:49; Admin Dose 100 MG; Start 09/07/16 at 17:30 Sodium Biphosphate/ Sodium Phosphate (Fleet Enema) [address] CONSTIPATION; Start 09/07/16 at 17:30 Famotidine (Pepcid Iv) 20 mg DAILY IV Last administered on 09/18/16 08:42; Admin Dose 20 MG; Start 09/08/16 at 09:00 Heparin Sodium (Porcine) (Heparin (5000 Units/0.5 ml)) 5,000 unit Q12 SC Last administered on 09/18/16 08:59; Admin Dose 5,000 UNIT; Start 09/07/16 at 21:00 Folic Acid (Folic Acid) 1 mg BID PO Last administered on 09/18/16 08:42; Admin Dose 1 MG; Start 09/07/16 at 21:00 Metoprolol Tartrate (Lopressor) 12.5 mg BID PO Last administered on 09/13/16 20:33; Admin Dose 12.5 MG; Start 09/07/16 at 23:00 Fenofibrate (Tricor) 48 mg QAM PO Last administered on 09/18/16 08:42; Admin Dose 48 MG; Start 09/08/16 at 09:00 Linagliptin (Tradjenta) 5 mg DAILY PO Last administered on 09/18/16 08:44; Admin Dose 5 MG; Start 09/07/16 at 18:00 Fish Oil (Fish Oil) 2,000 mg BID PO Last administered on 09/18/16 08:42; Admin Dose 2,000 MG; Start 09/07/16 at 21:00 Salmeterol Xinafoate/ Fluticasone (Advair 250/50 Diskus) 1 inh BID INH Last administered on 09/18/16 08:43; Admin Dose 1 INH; Start 09/07/16 at 23:00 Atorvastatin Calcium (Lipitor) 40 mg QHS PO Last administered on 09/17/16 20:20 ; Admin Dose 40 MG; Start 09/07/16 at 21:00 Gabapentin (Neurontin) 900 mg QHS PO Last administered on 09/17/16 20:20; Admin Dose 900 MG; Start 09/07/16 at 21:00 Miscellaneous Information 1 ea NOTE XX ; Start 09/07/16 at 18:00 Glucose (Glutose) 15 gm Q15M PRN PO DECREASED GLUCOSE; Start 09/07/16 at 18:00 Glucose (Glutose) 22.5 gm Q15M PRN PO DECREASED GLUCOSE; Start 09/07/16 at 18: 00 Dextrose (D50w Syringe) 25 ml Q15M PRN IV DECREASED GLUCOSE; Start 09/07/16 at 18:00 Dextrose (D50w Syringe) 50 ml Q15M PRN IV DECREASED GLUCOSE; Start 09/07/16 at 18:00 Glucagon (Glucagen) 1 mg Q15M PRN IM DECREASED GLUCOSE; Start 09/07/16 at 18:00 Glucose (Glutose) 15 gm Q15M PRN BUCCAL DECREASED GLUCOSE; Start 09/07/16 at 18 :00 Naloxone HCl (Narcan) 0.2 mg Q2M PRN IV DECREASED REPIRATORY RATE Last administered on 09/08/16 02:44; Admin Dose 0.2 MG; Start 09/08/16 at 02:30 Tramadol HCl 50 mg 50 mg Q8H PRN PO PAIN Last administered on 09/16/16 12:51; Admin Dose 50 MG; Start 09/08/16 at 16:00 Phenylephrine HCl/ Dextrose (Efraín-Syneph/D5W) 500 ml @ 75 mls/hr TITRATE IV Last administered on 09/17/16 09:25; Admin Dose 45 MLS/HR; Start 09/09/16 at 03: 00 Insulin Aspart (Novolog Insulin Pen) NOVOLOG *MILD* ALGORI... Q4 SC Last administered on 09/16/16 17:04; Admin Dose 1 UNIT; Start 09/09/16 at 05:00 Hydromorphone HCl 0.5 mg 0.5 mg Q2H PRN IV PAIN Last administered on 09/15/16 08:02; Admin Dose 0.5 MG; Start 09/09/16 at 08:30 Total Parenteral Nutrition 1,000 ml @ 40 mls/hr Q24H IV ; Start 09/11/16 at 16: 00; Status Future Hold Amiodarone HCl/ Dextrose (Cordarone Iv/ D5W) 500 ml @ 8.33 mls/hr Q24H IV Last administered on 09/13/16 20:39; Admin Dose 8.33 MLS/HR; Start 09/13/16 at 16:43 Amiodarone HCl (Cordarone) 200 mg DAILY PO Last administered on 09/18/16 08:42 ; Admin Dose 200 MG; Start 09/15/16 at 09:00 Gabapentin (Neurontin) 300 mg 09,16 PO Last administered on 09/18/16 08:44; Admin Dose 300 MG; Start 09/15/16 at 09:00 Prednisone (Prednisone) 5 mg DAILY PO Last administered on 09/18/16 08:42; Admin Dose 5 MG; Start 09/15/16 at 09:00 Prednisone (Prednisone) 1 mg QHS PO Last administered on 09/17/16 20:21; Admin Dose 1 MG; Start 09/14/16 at 21:00 Insulin Glargine (Lantus) 3 unit BID@08,20 SC Last administered on 09/17/16 20: 29; Admin Dose 3 UNIT; Start 09/15/16 at 20:00 LAWRENCE GOODE Sep 18, 2016 10:23
[2016-09-18] MEDS: HYDROCODONE/APAP (5/325) TAB PO PRN (10:29)
[2016-09-18] MEDS: INSULIN GLARGINE [LANtus] 3 ML PEN SC SCH ×2 (10:34→21:26)
--- NOTE | 2016-09-18 12:58 | PN ---
Date/Time of Note Date/Time of Note DATE: 09/18/16 TIME: 12:49 Assessment/Plan VTE Prophylaxis VTE Prophylaxis Intervention: other Lines/Catheters IV C[facility] Type (from [facility]): PICC Line Central line still needed: Yes Urinary Cath still in place: No Assessment/Plan Problems: (1) Hypotension Status: Resolved Comment: Patient of cardio pressors at this time with low normal blood pressure control. (2) Atrial fibrillation Status: Chronic Comment: Rate controlled. No issues at this time Qualifiers: Atrial fibrillation type: chronic Qualified Code: I48.2 - Chronic atrial fibrillation (3) C2 cervical fracture Status: Acute Comment: Remains in hard collar. Management per orthopedic team. Qualifiers: Encounter type: initial encounter Fracture type: closed Fracture morphology: other dens Fracture alignment: displaced Qualified Code: S12.120A - Other closed displaced odontoid fracture, initial encounter (4) Confused but orients easily Status: Acute Comment: WBC improved. Blood cultures pending. Less confused today. (5) COPD (chronic obstructive pulmonary disease) Status: Chronic Comment: No issues Qualifiers: COPD type: emphysema Emphysema type: panlobular Qualified Code: J43.1 - Panlobular emphysema (6) Sarcoidosis Status: Chronic Comment: On corticosteroids chronically. (7) ESRD (end stage renal disease) on dialysis Status: Chronic Comment: HD per nephrology team. Plan for HD tomorrow. Will transfer after HD tomorrow provided patient tolerates HD without hypotension. (8) Diabetes mellitus type 2 in obese Status: Chronic Comment: Good glycemic control on current regimen. Subjective 24 Hr Interval Summary Free Text/Dictation Feels better today. Appears less confused per daughter. Exam/Review of Systems Vital Signs Vitals Vital Signs Date Time Temp Pulse Resp B/P Pulse Ox O2 Delivery O2 Flow Rate FiO2 09/18/16 10:00 87 13 102/55 99 Nasal Cannula 2.0 09/18/16 08:00 98.1 Intake and Output 09/17/16 09/17/16 09/18/16 15:00 23:00 07:00 Intake Total 80 ml 746.25 ml 270.01 ml Output Total 0 ml 0 ml 0 ml Balance 80 ml 746.25 ml 270.01 ml Exam Off pressors Constitutional: alert, oriented (x3) Neck: other (in hard collar) Respiratory: clear to auscultation Cardiovascular: regular rate and rhythm Gastrointestinal: soft Musculoskeletal: nl extremities to inspection Extremities: tenderness (bilaterally) Results POC glucose, labs and vitals reviewed Result Diagram: 09/18/16 0345 09/18/16 0345 Results 24 hrs Laboratory Tests Test 09/17/16 16:46 09/17/16 20:22 09/18/16 01:25 09/18/16 03:45 Bedside Glucose 116 114 122 White Blood Count 5.9 Red Blood Count 3.23 L Hemoglobin 9.5 L Hematocrit 29.5 L Mean Corpuscular Volume 91.3 Mean Corpuscular Hemoglobin 29.4 Mean Corpuscular Hemoglobin Concent 32.2 Red Cell Distribution Width 14.8 H Platelet Count 242 Mean Platelet Volume 10.8 H Neutrophils % 72.0 Lymphocytes % 19.3 Monocytes % 6.8 Eosinophils % 1.0 Basophils % 0.2 Nucleated Red Blood Cells % 0.0 Neutrophils # 4.3 Lymphocytes # 1.1 Monocytes # 0.4 Eosinophils # 0.1 Basophils # 0.0 Nucleated Red Blood Cells # 0.0 Sodium Level 133 L Potassium Level 4.6 Chloride Level 93 L Carbon Dioxide Level 29 Anion Gap 16 Blood Urea Nitrogen 61 H Creatinine 7.26 H Glucose Level 99 Calcium Level 8.3 L Total Bilirubin 0.0 L Direct Bilirubin 0.00 Indirect Bilirubin 0.0 Aspartate Amino Transf (AST/SGOT) 17 Alanine Aminotransferase (ALT/SGPT) 28 Alkaline Phosphatase 40 L Total Protein 6.4 Albumin 3.6 Globulin 2.80 Albumin/Globulin Ratio 1.28 Prealbumin 17.2 L Test 09/18/16 04:49 09/18/16 08:29 09/18/16 12:16 Bedside Glucose 97 79 111 Medications Medications Current Medications Acetaminophen/ Hydrocodone Bitart ([place] (5/325)) 1 tab Q6H PRN PO MODERATE PAIN LEVEL 4-6 Last administered on 09/18/16 10:29; Admin Dose 1 TAB; Start at 17:30 Acetaminophen/ Hydrocodone Bitart ([place] (5/325)) 2 tab Q6H PRN PO SEVERE PAIN LEVEL 7-10 Last administered on 09/16/16 10:08; Admin Dose 2 TAB; Start at 17:30 Docusate Sodium (Colace) 100 mg Q12H PRN PO CONSTIPATION Last administered on 17:49; Admin Dose 100 MG; Start 09/07/16 at 17:30 Sodium Biphosphate/ Sodium Phosphate (Fleet Enema) 133 ml DAILY PRN [place] CONSTIPATION; Start 09/07/16 at 17:30 Famotidine (Pepcid Iv) 20 mg DAILY IV Last administered on 09/18/16 08:42; Admin Dose 20 MG; Start 09/08/16 at 09:00 Heparin Sodium (Porcine) (Heparin (5000 Units/0.5 ml)) 5,000 unit Q12 SC Last administered on 09/18/16 08:59; Admin Dose 5,000 UNIT; Start 09/07/16 at 21:00 Folic Acid (Folic Acid) 1 mg BID PO Last administered on 09/18/16 08:42; Admin Dose 1 MG; Start 09/07/16 at 21:00 Metoprolol Tartrate (Lopressor) 12.5 mg BID PO Last administered on 09/13/16 20:33; Admin Dose 12.5 MG; Start 09/07/16 at 23:00 Fenofibrate (Tricor) 48 mg QAM PO Last administered on 09/18/16 08:42; Admin Dose 48 MG; Start 09/08/16 at 09:00 Linagliptin (Tradjenta) 5 mg DAILY PO Last administered on 09/18/16 08:44; Admin Dose 5 MG; Start 09/07/16 at 18:00 Fish Oil (Fish Oil) 2,000 mg BID PO Last administered on 09/18/16 08:42; Admin Dose 2,000 MG; Start 09/07/16 at 21:00 Salmeterol Xinafoate/ Fluticasone (Advair 250/50 Diskus) 1 inh BID INH Last administered on 09/18/16 08:43; Admin Dose 1 INH; Start 09/07/16 at 23:00 Atorvastatin Calcium (Lipitor) 40 mg QHS PO Last administered on 09/17/16 20:20 ; Admin Dose 40 MG; Start 09/07/16 at 21:00 Gabapentin (Neurontin) 900 mg QHS PO Last administered on 09/17/16 20:20; Admin Dose 900 MG; Start 09/07/16 at 21:00 Miscellaneous Information 1 ea NOTE XX ; Start 09/07/16 at 18:00 Glucose (Glutose) 15 gm Q15M PRN PO DECREASED GLUCOSE; Start 09/07/16 at 18:00 Glucose (Glutose) 22.5 gm Q15M PRN PO DECREASED GLUCOSE; Start 09/07/16 at 18: 00 Dextrose (D50w Syringe) 25 ml Q15M PRN IV DECREASED GLUCOSE; Start 09/07/16 at 18:00 Dextrose (D50w Syringe) 50 ml Q15M PRN IV DECREASED GLUCOSE; Start 09/07/16 at 18:00 Glucagon (Glucagen) 1 mg Q15M PRN IM DECREASED GLUCOSE; Start 09/07/16 at 18:00 Glucose (Glutose) 15 gm Q15M PRN BUCCAL DECREASED GLUCOSE; Start 09/07/16 at 18 :00 Naloxone HCl (Narcan) 0.2 mg Q2M PRN IV DECREASED REPIRATORY RATE Last administered on 09/08/16 02:44; Admin Dose 0.2 MG; Start 09/08/16 at 02:30 Tramadol HCl 50 mg 50 mg Q8H PRN PO PAIN Last administered on 09/16/16 12:51; Admin Dose 50 MG; Start 09/08/16 at 16:00 Phenylephrine HCl/ Dextrose (Efraín-Syneph/D5W) 500 ml @ 75 mls/hr TITRATE IV Last administered on 09/17/16 09:25; Admin Dose 45 MLS/HR; Start 09/09/16 at 03: 00 Insulin Aspart (Novolog Insulin Pen) NOVOLOG *MILD* ALGORI... Q4 SC Last administered on 09/16/16 17:04; Admin Dose 1 UNIT; Start 09/09/16 at 05:00 Hydromorphone HCl 0.5 mg 0.5 mg Q2H PRN IV PAIN Last administered on 09/15/16 08:02; Admin Dose 0.5 MG; Start 09/09/16 at 08:30 Total Parenteral Nutrition 1,000 ml @ 40 mls/hr Q24H IV ; Start 09/11/16 at 16: 00; Status Future Hold Amiodarone HCl/ Dextrose (Cordarone Iv/ D5W) 500 ml @ 8.33 mls/hr Q24H IV Last administered on 09/13/16 20:39; Admin Dose 8.33 MLS/HR; Start 09/13/16 at 16:43 Amiodarone HCl (Cordarone) 200 mg DAILY PO Last administered on 09/18/16 08:42 ; Admin Dose 200 MG; Start 09/15/16 at 09:00 Gabapentin (Neurontin) 300 mg PO Last administered on 09/18/16 08:44; Admin Dose 300 MG; Start 09/15/16 at 09:00 Prednisone (Prednisone) 5 mg DAILY PO Last administered on 09/18/16 08:42; Admin Dose 5 MG; Start 09/15/16 at 09:00 Prednisone (Prednisone) 1 mg QHS PO Last administered on 09/17/16 20:21; Admin Dose 1 MG; Start 09/14/16 at 21:00 Insulin Glargine (Lantus) 3 unit BID@08,20 SC Last administered on 09/18/16 10: 34; Admin Dose 3 UNIT; Start 09/15/16 at 20:00 MARILEE HERNANDEZ MD Sep 18, 2016 12:58
[2016-09-18] MEDS ORDERED: ARTIFICIAL TEARS 15 ML OPH BOTH EYES PRN (15:00)
[2016-09-18] MEDS: AMIODARONE 900 MG in DEXTROSE 5% 482 ML IV SCH (15:56)
--- NOTE | 2016-09-18 18:21 | CONS ---
Date/Time of Note Date/Time of Note DATE: 09/18/16 TIME: 18:19 Assessment/Plan Assessment/Plan Additional Assessment/Plan (1) Atrial fibrillation stable. rate controlled (2) C2 cervical fracture Stable. no pain. no neurological changes. collar in place (3) Sarcoidosis chronic and stable on steroids (4) ESRD (end stage renal disease) on dialysis hd scheduled in am and q m/w/f (5) hypotension: better and off pressors Consultation Date/Type/Reason Admit Date/Time September 07, 2016 at 16:36 Initial Consult Date 09/08/16 Type of Consultation: Pulmonary/critical care Reason for Consultation feels well. no issues . off pressors. comfortable Referring Provider: TOMER GARCIA MD Exam/Review of Systems Vital Signs Vitals Vital Signs Date Time Temp Pulse Resp B/P Pulse Ox O2 Delivery O2 Flow Rate FiO2 09/18/16 18:05 2.0 09/18/16 17:00 84 18 119/43 100 Nasal Cannula 09/18/16 16:00 98.6 Intake and Output 09/17/16 09/17/16 09/18/16 15:00 23:00 07:00 Intake Total 80 ml 746.25 ml 270.01 ml Output Total 0 ml 0 ml 0 ml Balance 80 ml 746.25 ml 270.01 ml Exam Constitutional: alert, oriented Psych: no complaints Head: normocephalic Neck: supple Respiratory: clear to auscultation Cardiovascular: edema, regular rate and rhythm Gastrointestinal: non-tender, soft Results Result Diagram: 09/18/16 0345 09/18/16 0345 Results 24 hrs Laboratory Tests Test 09/17/16 20:22 09/18/16 01:25 09/18/16 03:45 09/18/16 04:49 Bedside Glucose 114 122 97 White Blood Count 5.9 Red Blood Count 3.23 L Hemoglobin 9.5 L Hematocrit 29.5 L Mean Corpuscular Volume 91.3 Mean Corpuscular Hemoglobin 29.4 Mean Corpuscular Hemoglobin Concent 32.2 Red Cell Distribution Width 14.8 H Platelet Count 242 Mean Platelet Volume 10.8 H Neutrophils % 72.0 Lymphocytes % 19.3 Monocytes % 6.8 Eosinophils % 1.0 Basophils % 0.2 Nucleated Red Blood Cells % 0.0 Neutrophils # 4.3 Lymphocytes # 1.1 Monocytes # 0.4 Eosinophils # 0.1 Basophils # 0.0 Nucleated Red Blood Cells # 0.0 Sodium Level 133 L Potassium Level 4.6 Chloride Level 93 L Carbon Dioxide Level 29 Anion Gap 16 Blood Urea Nitrogen 61 H Creatinine 7.26 H Glucose Level 99 Calcium Level 8.3 L Total Bilirubin 0.0 L Direct Bilirubin 0.00 Indirect Bilirubin 0.0 Aspartate Amino Transf (AST/SGOT) 17 Alanine Aminotransferase (ALT/SGPT) 28 Alkaline Phosphatase 40 L Total Protein 6.4 Albumin 3.6 Globulin 2.80 Albumin/Globulin Ratio 1.28 Prealbumin 17.2 L Test 09/18/16 08:29 09/18/16 12:16 09/18/16 16:14 Bedside Glucose 79 111 108 Medications Medications Current Medications Acetaminophen/ Hydrocodone Bitart ([place] (5/325)) 1 tab Q6H PRN PO MODERATE PAIN LEVEL 4-6 Last administered on 09/18/16 10:29; Admin Dose 1 TAB; Start at 17:30 Acetaminophen/ Hydrocodone Bitart ([place] (5/325)) 2 tab Q6H PRN PO SEVERE PAIN LEVEL 7-10 Last administered on 09/16/16 10:08; Admin Dose 2 TAB; Start at 17:30 Docusate Sodium (Colace) 100 mg Q12H PRN PO CONSTIPATION Last administered on 17:49; Admin Dose 100 MG; Start 09/07/16 at 17:30 Sodium Biphosphate/ Sodium Phosphate (Fleet Enema) 133 ml DAILY PRN [place] CONSTIPATION; Start 09/07/16 at 17:30 Famotidine (Pepcid Iv) 20 mg DAILY IV Last administered on 09/18/16 08:42; Admin Dose 20 MG; Start 09/08/16 at 09:00 Heparin Sodium (Porcine) (Heparin (5000 Units/0.5 ml)) 5,000 unit Q12 SC Last administered on 09/18/16 08:59; Admin Dose 5,000 UNIT; Start 09/07/16 at 21:00 Folic Acid (Folic Acid) 1 mg BID PO Last administered on 09/18/16 08:42; Admin Dose 1 MG; Start 09/07/16 at 21:00 Metoprolol Tartrate (Lopressor) 12.5 mg BID PO Last administered on 09/13/16 20:33; Admin Dose 12.5 MG; Start 09/07/16 at 23:00 Fenofibrate (Tricor) 48 mg QAM PO Last administered on 09/18/16 08:42; Admin Dose 48 MG; Start 09/08/16 at 09:00 Linagliptin (Tradjenta) 5 mg DAILY PO Last administered on 09/18/16 08:44; Admin Dose 5 MG; Start 09/07/16 at 18:00 Fish Oil (Fish Oil) 2,000 mg BID PO Last administered on 09/18/16 08:42; Admin Dose 2,000 MG; Start 09/07/16 at 21:00 Salmeterol Xinafoate/ Fluticasone (Advair 250/50 Diskus) 1 inh BID INH Last administered on 09/18/16 08:43; Admin Dose 1 INH; Start 09/07/16 at 23:00 Atorvastatin Calcium (Lipitor) 40 mg QHS PO Last administered on 09/17/16 20:20 ; Admin Dose 40 MG; Start 09/07/16 at 21:00 Gabapentin (Neurontin) 900 mg QHS PO Last administered on 09/17/16 20:20; Admin Dose 900 MG; Start 09/07/16 at 21:00 Miscellaneous Information 1 ea NOTE XX ; Start 09/07/16 at 18:00 Glucose (Glutose) 15 gm Q15M PRN PO DECREASED GLUCOSE; Start 09/07/16 at 18:00 Glucose (Glutose) 22.5 gm Q15M PRN PO DECREASED GLUCOSE; Start 09/07/16 at 18: 00 Dextrose (D50w Syringe) 25 ml Q15M PRN IV DECREASED GLUCOSE; Start 09/07/16 at 18:00 Dextrose (D50w Syringe) 50 ml Q15M PRN IV DECREASED GLUCOSE; Start 09/07/16 at 18:00 Glucagon (Glucagen) 1 mg Q15M PRN IM DECREASED GLUCOSE; Start 09/07/16 at 18:00 Glucose (Glutose) 15 gm Q15M PRN BUCCAL DECREASED GLUCOSE; Start 09/07/16 at 18 :00 Naloxone HCl (Narcan) 0.2 mg Q2M PRN IV DECREASED REPIRATORY RATE Last administered on 09/08/16 02:44; Admin Dose 0.2 MG; Start 09/08/16 at 02:30 Tramadol HCl 50 mg 50 mg Q8H PRN PO PAIN Last administered on 09/16/16 12:51; Admin Dose 50 MG; Start 09/08/16 at 16:00 Phenylephrine HCl/ Dextrose (Efraín-Syneph/D5W) 500 ml @ 75 mls/hr TITRATE IV Last administered on 09/17/16 09:25; Admin Dose 45 MLS/HR; Start 09/09/16 at 03: 00 Insulin Aspart (Novolog Insulin Pen) NOVOLOG *MILD* ALGORI... Q4 SC Last administered on 09/16/16 17:04; Admin Dose 1 UNIT; Start 09/09/16 at 05:00 Hydromorphone HCl 0.5 mg 0.5 mg Q2H PRN IV PAIN Last administered on 09/15/16 08:02; Admin Dose 0.5 MG; Start 09/09/16 at 08:30 Total Parenteral Nutrition 1,000 ml @ 40 mls/hr Q24H IV ; Start 09/11/16 at 16: 00; Status Future Hold Amiodarone HCl/ Dextrose (Cordarone Iv/ D5W) 500 ml @ 8.33 mls/hr Q24H IV Last administered on 09/13/16 20:39; Admin Dose 8.33 MLS/HR; Start 09/13/16 at 16:43 Amiodarone HCl (Cordarone) 200 mg DAILY PO Last administered on 09/18/16 08:42 ; Admin Dose 200 MG; Start 09/15/16 at 09:00 Gabapentin (Neurontin) 300 mg 16 PO Last administered on 09/18/16 16:15; Admin Dose 300 MG; Start 09/15/16 at 09:00 Prednisone (Prednisone) 5 mg DAILY PO Last administered on 09/18/16 08:42; Admin Dose 5 MG; Start 09/15/16 at 09:00 Prednisone (Prednisone) 1 mg QHS PO Last administered on 09/17/16 20:21; Admin Dose 1 MG; Start 09/14/16 at 21:00 Insulin Glargine (Lantus) 3 unit BID@08,20 SC Last administered on 09/18/16 10: 34; Admin Dose 3 UNIT; Start 09/15/16 at 20:00 Eye Lubricant (Artificial Tears Oph) 2 drop Q2H PRN BOTH EYES DRY EYES Last administered on 09/18/16t 17:40; Admin Dose 2 DROP; Start 09/18/16 at 15:00 PEDRO ESCAMILLA MD Sep 18, 2016 18:21
[2016-09-18] MEDS: predniSONE 2.5 MG TAB PO SCH (18:25)
[2016-09-18] MEDS: ATORVASTATIN 40 MG TAB PO SCH (21:16)
[2016-09-18] MEDS: predniSONE 1 MG TAB PO SCH (21:23)
[2016-09-18] MEDS ORDERED: VANCOMYCIN IV PER PHARMACY XX SCH (23:00)
[2016-09-18] MEDS ORDERED: VANCOMYCIN 1 GM (PMX) 250 ML IVPB SCH (23:00)
[2016-09-19] VITALS (40 sets, daily range): BP systolic 80–149; BP diastolic 31–109; PULSE 60–89; RESP 9–27
[2016-09-19] MEDS: INSULIN ASPART [NOVOLOG] 3 ML PEN SC SCH ×6 (01:00→20:17)
[2016-09-19 06:12] LABS: ADD SCAN DIFF NO
[2016-09-19 06:13] LABS: BASOPHILS % 0.1 % (0.0-2.0); EOSINOPHILS # 0.1 10^3/ul (0.0-0.5); HEMATOCRIT 29.4 % (37.0-47.0); HEMOGLOBIN 9.9 g/dl (12.0-16.0); LYMPHOCYTES # 1.2 10^3/ul (0.8-2.9); LYMPHOCYTES % 17.1 % (15.0-51.0); MEAN CORPUSCULAR HEMOGLOBIN 30.5 pg (29.0-33.0); MEAN CORPUSCULAR HGB CONC 33.7 g/dl (32.0-37.0); MEAN CORPUSCULAR VOLUME 90.5 fl (82.0-101.0); MEAN PLATELET VOLUME 10.6 fl (7.4-10.4); MONOCYTE # 0.4 10^3/ul (0.3-0.9); MONOCYTES % 5.3 % (0.0-11.0); NEUTROPHIL # 5.2 10^3/ul (1.6-7.5); NEUTROPHILS % 76.1 % (39.0-77.0); PLATELET COUNT 254 10^3/UL (140-415); RED BLOOD COUNT 3.25 10^6/ul (4.20-5.40); RED CELL DISTRIBUTION WIDTH 14.6 % (11.5-14.5); WHITE BLOOD COUNT 6.8 10^3/ul (4.8-10.8)
[2016-09-19 06:48] LABS: ALBUMIN 3.8 g/dl (3.3-4.9); ALBUMIN/GLOBULIN RATIO 1.31; CALCIUM 8.5 mg/dl (8.4-10.2); POTASSIUM 5.3 mmol/L (3.5-5.1); TOTAL PROTEIN 6.7 g/dl (6.1-8.1)
[2016-09-19 07:00] LABS: CREATININE 8.86 mg/dl (0.44-1.00)
--- NOTE | 2016-09-19 07:50 | CONS ---
Date/Time of Note Date/Time of Note DATE: 09/19/16 TIME: 07:47 Assessment/Plan Assessment/Plan Problems: (1) Atrial fibrillation Status: Chronic Comment: rate controlled... stable Qualifiers: Atrial fibrillation type: chronic Qualified Code: I48.2 - Chronic atrial fibrillation (2) C2 cervical fracture Status: Acute Comment: in hard collar... neuro stable/intact.. needs PT Qualifiers: Encounter type: initial encounter Fracture type: closed Fracture morphology: other dens Fracture alignment: displaced Qualified Code: S12.120A - Other closed displaced odontoid fracture, initial encounter (3) Hypotension Status: Resolved Comment: off and on Efraín (4) ESRD (end stage renal disease) on dialysis Status: Chronic Comment: for HD today, and q MWF Consultation Date/Type/Reason Admit Date/Time September 07, 2016 at 16:36 Initial Consult Date 09/08/16 Type of Consultation: neph Referring Provider: TOMER GARCIA MD 24 HR Interval Summary Free Text/Dictation doing well... pain controlled... hoping for PT Exam/Review of Systems Vital Signs Vitals Vital Signs Date Time Temp Pulse Resp B/P Pulse Ox O2 Delivery O2 Flow Rate FiO2 09/19/16 07:37 2.0 09/19/16 07:00 79 9 124/86 98 Nasal Cannula 09/19/16 04:00 97.8 Intake and Output 09/18/16 09/18/16 09/19/16 15:00 23:00 07:00 Intake Total 370 ml 240 ml 250 ml Output Total 0 ml 0 ml 0 ml Balance 370 ml 240 ml 250 ml Exam Constitutional: alert, oriented Head: normocephalic Eyes: nl conjunctiva Neck: other (in hard collar) Cardiovascular: irregular rhythm (controlled AF) Extremities: normal pulses (fxn AVF) Results Result Diagram: 09/19/16 0550 09/19/16 0550 Results 24 hrs Laboratory Tests Test 09/18/16 08:29 09/18/16 12:16 09/18/16 16:14 09/18/16 21:13 Bedside Glucose 79 111 108 126 Test 09/19/16 00:53 09/19/16 05:49 09/19/16 05:50 Bedside Glucose 111 89 White Blood Count 6.8 Red Blood Count 3.25 L Hemoglobin 9.9 L Hematocrit 29.4 L Mean Corpuscular Volume 90.5 Mean Corpuscular Hemoglobin 30.5 Mean Corpuscular Hemoglobin Concent 33.7 Red Cell Distribution Width 14.6 H Platelet Count 254 Mean Platelet Volume 10.6 H Neutrophils % 76.1 Lymphocytes % 17.1 Monocytes % 5.3 Eosinophils % 1.0 Basophils % 0.1 Nucleated Red Blood Cells % 0.0 Neutrophils # 5.2 Lymphocytes # 1.2 Monocytes # 0.4 Eosinophils # 0.1 Basophils # 0.0 Nucleated Red Blood Cells # 0.0 Sodium Level 134 L Potassium Level 5.3 H Chloride Level 94 L Carbon Dioxide Level 28 Anion Gap 17 H Blood Urea Nitrogen 76 H Creatinine 8.86 H Glucose Level 92 Calcium Level 8.5 Total Bilirubin 0.0 L Direct Bilirubin 0.00 Indirect Bilirubin 0.0 Aspartate Amino Transf (AST/SGOT) 16 Alanine Aminotransferase (ALT/SGPT) 25 Alkaline Phosphatase 46 Total Protein 6.7 Albumin 3.8 Globulin 2.90 Albumin/Globulin Ratio 1.31 Medications Medications Current Medications Acetaminophen/ Hydrocodone Bitart ([place] (5/325)) 1 tab Q6H PRN PO MODERATE PAIN LEVEL 4-6 Last administered on 09/18/16 10:29; Admin Dose 1 TAB; Start at 17:30 Acetaminophen/ Hydrocodone Bitart ([place] (5/325)) 2 tab Q6H PRN PO SEVERE PAIN LEVEL 7-10 Last administered on 09/16/16 10:08; Admin Dose 2 TAB; Start at 17:30 Docusate Sodium (Colace) 100 mg Q12H PRN PO CONSTIPATION Last administered on 17:49; Admin Dose 100 MG; Start 09/07/16 at 17:30 Sodium Biphosphate/ Sodium Phosphate (Fleet Enema) 133 ml DAILY PRN [place] CONSTIPATION; Start 09/07/16 at 17:30 Famotidine (Pepcid Iv) 20 mg DAILY IV Last administered on 09/18/16 08:42; Admin Dose 20 MG; Start 09/08/16 at 09:00 Heparin Sodium (Porcine) (Heparin (5000 Units/0.5 ml)) 5,000 unit Q12 SC Last administered on 09/18/16 21:25; Admin Dose 5,000 UNIT; Start 09/07/16 at 21:00 Folic Acid (Folic Acid) 1 mg BID PO Last administered on 09/18/16 21:16; Admin Dose 1 MG; Start 09/07/16 at 21:00 Metoprolol Tartrate (Lopressor) 12.5 mg BID PO Last administered on 09/18/16 21 :17; Admin Dose 12.5 MG; Start 09/07/16 at 23:00 Fenofibrate (Tricor) 48 mg QAM PO Last administered on 09/18/16 08:42; Admin Dose 48 MG; Start 09/08/16 at 09:00 Linagliptin (Tradjenta) 5 mg DAILY PO Last administered on 09/18/16 08:44; Admin Dose 5 MG; Start 09/07/16 at 18:00 Fish Oil (Fish Oil) 2,000 mg BID PO Last administered on 09/18/16 21:16; Admin Dose 2,000 MG; Start 09/07/16 at 21:00 Salmeterol Xinafoate/ Fluticasone (Advair 250/50 Diskus) 1 inh BID INH Last administered on 09/18/16 21:15; Admin Dose 1 INH; Start 09/07/16 at 23:00 Atorvastatin Calcium (Lipitor) 40 mg QHS PO Last administered on 09/18/16 21:16 ; Admin Dose 40 MG; Start 09/07/16 at 21:00 Gabapentin (Neurontin) 900 mg QHS PO Last administered on 09/18/16 21:21; Admin Dose 900 MG; Start 09/07/16 at 21:00 Miscellaneous Information 1 ea NOTE XX ; Start 09/07/16 at 18:00 Glucose (Glutose) 15 gm Q15M PRN PO DECREASED GLUCOSE; Start 09/07/16 at 18:00 Glucose (Glutose) 22.5 gm Q15M PRN PO DECREASED GLUCOSE; Start 09/07/16 at 18: 00 Dextrose (D50w Syringe) 25 ml Q15M PRN IV DECREASED GLUCOSE; Start 09/07/16 at 18:00 Dextrose (D50w Syringe) 50 ml Q15M PRN IV DECREASED GLUCOSE; Start 09/07/16 at 18:00 Glucagon (Glucagen) 1 mg Q15M PRN IM DECREASED GLUCOSE; Start 09/07/16 at 18:00 Glucose (Glutose) 15 gm Q15M PRN BUCCAL DECREASED GLUCOSE; Start 09/07/16 at 18 :00 Naloxone HCl (Narcan) 0.2 mg Q2M PRN IV DECREASED REPIRATORY RATE Last administered on 09/08/16 02:44; Admin Dose 0.2 MG; Start 09/08/16 at 02:30 Tramadol HCl 50 mg 50 mg Q8H PRN PO PAIN Last administered on 09/16/16 12:51; Admin Dose 50 MG; Start 09/08/16 at 16:00 Phenylephrine HCl/ Dextrose (Efraín-Syneph/D5W) 500 ml @ 75 mls/hr TITRATE IV Last administered on 09/17/16 09:25; Admin Dose 45 MLS/HR; Start 09/09/16 at 03: 00 Insulin Aspart (Novolog Insulin Pen) NOVOLOG *MILD* ALGORI... Q4 SC Last administered on 09/16/16 17:04; Admin Dose 1 UNIT; Start 09/09/16 at 05:00 Hydromorphone HCl 0.5 mg 0.5 mg Q2H PRN IV PAIN Last administered on 09/15/16 08:02; Admin Dose 0.5 MG; Start 09/09/16 at 08:30 Total Parenteral Nutrition 1,000 ml @ 40 mls/hr Q24H IV ; Start 09/11/16 at 16: 00; Status Future Hold Amiodarone HCl/ Dextrose (Cordarone Iv/ D5W) 500 ml @ 8.33 mls/hr Q24H IV Last administered on 09/13/16 20:39; Admin Dose 8.33 MLS/HR; Start 09/13/16 at 16:43 Amiodarone HCl (Cordarone) 200 mg DAILY PO Last administered on 09/18/16 08:42 ; Admin Dose 200 MG; Start 09/15/16 at 09:00 Gabapentin (Neurontin) 300 mg PO Last administered on 09/18/16 16:15; Admin Dose 300 MG; Start 09/15/16 at 09:00 Prednisone (Prednisone) 5 mg DAILY PO Last administered on 09/18/16 08:42; Admin Dose 5 MG; Start 09/15/16 at 09:00 Prednisone (Prednisone) 1 mg QHS PO Last administered on 09/18/16 21:23; Admin Dose 1 MG; Start 09/14/16 at 21:00 Insulin Glargine (Lantus) 3 unit BID@08,20 SC Last administered on 09/18/16 21: 26; Admin Dose 3 UNIT; Start 09/15/16 at 20:00 Eye Lubricant (Artificial Tears Oph) 2 drop Q2H PRN BOTH EYES DRY EYES Last administered on 09/18/16 17:40; Admin Dose 2 DROP; Start 09/18/16 at 15:00 NICO HAY MD Sep 19, 2016 07:50
--- NOTE | 2016-09-19 08:25 | PN ---
Date/Time of Note Date/Time of Note DATE: 09/19/16 TIME: 08:20 Assessment/Plan VTE Prophylaxis VTE Prophylaxis Intervention: other Lines/Catheters IV Catheter Type (from [facility]): PICC Line Central line still needed: Yes Urinary Cath still in place: No Assessment/Plan Problems: (1) Positive blood culture Status: Acute Comment: From the cultures done 2 days ago one bottle has an positive cocci. This may well be a contaminant. While we are waiting for that the sort itself out she is on vancomycin. (2) C2 cervical fracture Status: Acute Comment: She remains in the hard collar. If she does well with dialysis today moving around the intensive care unit to a monitored floor with the intention of ultimately getting her set up for rehabilitative care. This will take at least 2 months of out patient rehabilitative care in a center Qualifiers: Encounter type: initial encounter Fracture type: closed Fracture morphology: other dens Fracture alignment: displaced Qualified Code: S12.120A - Other closed displaced odontoid fracture, initial encounter (3) Atrial fibrillation Status: Chronic Comment: Rate is controlled Qualifiers: Atrial fibrillation type: chronic Qualified Code: I48.2 - Chronic atrial fibrillation (4) ESRD (end stage renal disease) on dialysis Status: Chronic Comment: For hemodialysis today. Tolerating well (5) Sarcoidosis Status: Chronic Comment: Remains on steroids (6) Hypotension Status: Resolved Comment: Hopefully remains off pressors Qualifiers: Hypotension type: hemodialysis-associated hypotension Qualified Code: I95.3 - Hemodialysis-associated hypotension (7) Diabetes mellitus type 2 in obese Status: Chronic Comment: Well-controlled (8) Obstructive sleep apnea Status: Chronic Comment: Patient is refusing to wear the nocturnal BiPAP which it would be in her best interest (9) Diastolic dysfunction Status: Chronic Comment: Stable on current regimen (10) Status post transcatheter aortic valve replacement (TAVR) using bioprosthesis Status: Acute Comment: Continues to do well after this procedure (11) Presence of coronary angioplasty implant and graft Status: Chronic Comment: Quiescent Subjective 24 Hr Interval Summary Free Text/Dictation Patient complains of neuropathy in her lower extremities and neck pain. Constitutional: no complaints (Denies fevers chills or sweats) Respiratory: no complaints Cardiovascular: no complaints Gastrointestinal: no complaints Exam/Review of Systems Vital Signs Vitals Vital Signs Date Time Temp Pulse Resp B/P Pulse Ox O2 Delivery O2 Flow Rate FiO2 6/5/17 07:37 2.0 09/19/16 07:00 79 9 124/86 98 Nasal Cannula 09/19/16 04:00 97.8 Intake and Output 09/18/16 09/18/16 09/19/16 15:00 23:00 07:00 Intake Total 370 ml 240 ml 250 ml Output Total 0 ml 0 ml 0 ml Balance 370 ml 240 ml 250 ml Exam Constitutional: alert, oriented Neck: non-tender, supple Respiratory: clear to auscultation, normal air movement Cardiovascular: irregular rhythm, nl pulses Gastrointestinal: nl liver, spleen, non-tender, soft Results Result Diagram: 09/19/16 0550 09/19/16 0550 Results 24 hrs Laboratory Tests Test 09/18/16 08:29 09/18/16 12:16 09/18/16 16:14 09/18/16 21:13 Bedside Glucose 79 111 108 126 Test 09/19/16 00:53 09/19/16 05:49 09/19/16 05:50 Bedside Glucose 111 89 White Blood Count 6.8 Red Blood Count 3.25 L Hemoglobin 9.9 L Hematocrit 29.4 L Mean Corpuscular Volume 90.5 Mean Corpuscular Hemoglobin 30.5 Mean Corpuscular Hemoglobin Concent 33.7 Red Cell Distribution Width 14.6 H Platelet Count 254 Mean Platelet Volume 10.6 H Neutrophils % 76.1 Lymphocytes % 17.1 Monocytes % 5.3 Eosinophils % 1.0 Basophils % 0.1 Nucleated Red Blood Cells % 0.0 Neutrophils # 5.2 Lymphocytes # 1.2 Monocytes # 0.4 Eosinophils # 0.1 Basophils # 0.0 Nucleated Red Blood Cells # 0.0 Sodium Level 134 L Potassium Level 5.3 H Chloride Level 94 L Carbon Dioxide Level 28 Anion Gap 17 H Blood Urea Nitrogen 76 H Creatinine 8.86 H Glucose Level 92 Calcium Level 8.5 Total Bilirubin 0.0 L Direct Bilirubin 0.00 Indirect Bilirubin 0.0 Aspartate Amino Transf (AST/SGOT) 16 Alanine Aminotransferase (ALT/SGPT) 25 Alkaline Phosphatase 46 Total Protein 6.7 Albumin 3.8 Globulin 2.90 Albumin/Globulin Ratio 1.31 Medications Medications Current Medications Acetaminophen/ Hydrocodone Bitart ([place] (5/325)) 1 tab Q6H PRN PO MODERATE PAIN LEVEL 4-6 Last administered on 09/18/16 10:29; Admin Dose 1 TAB; Start at 17:30 Acetaminophen/ Hydrocodone Bitart ([place] (5/325)) 2 tab Q6H PRN PO SEVERE PAIN LEVEL 7-10 Last administered on 09/16/16 10:08; Admin Dose 2 TAB; Start at 17:30 Docusate Sodium (Colace) 100 mg Q12H PRN PO CONSTIPATION Last administered on 17:49; Admin Dose 100 MG; Start 09/07/16 at 17:30 Sodium Biphosphate/ Sodium Phosphate (Fleet Enema) 133 ml DAILY PRN [place] CONSTIPATION; Start 09/07/16 at 17:30 Famotidine (Pepcid Iv) 20 mg DAILY IV Last administered on 09/18/16 08:42; Admin Dose 20 MG; Start 09/08/16 at 09:00 Heparin Sodium (Porcine) (Heparin (5000 Units/0.5 ml)) 5,000 unit Q12 SC Last administered on 09/18/16 21:25; Admin Dose 5,000 UNIT; Start 09/07/16 at 21:00 Folic Acid (Folic Acid) 1 mg BID PO Last administered on 09/18/16 21:16; Admin Dose 1 MG; Start 09/07/16 at 21:00 Metoprolol Tartrate (Lopressor) 12.5 mg BID PO Last administered on 09/18/16 21 :17; Admin Dose 12.5 MG; Start 09/07/16 at 23:00 Fenofibrate (Tricor) 48 mg QAM PO Last administered on 09/18/16 08:42; Admin Dose 48 MG; Start 09/08/16 at 09:00 Linagliptin (Tradjenta) 5 mg DAILY PO Last administered on 09/18/16 08:44; Admin Dose 5 MG; Start 09/07/16 at 18:00 Fish Oil (Fish Oil) 2,000 mg BID PO Last administered on 09/18/16 21:16; Admin Dose 2,000 MG; Start 09/07/16 at 21:00 Salmeterol Xinafoate/ Fluticasone (Advair 250/50 Diskus) 1 inh BID INH Last administered on 09/18/16 21:15; Admin Dose 1 INH; Start 09/07/16 at 23:00 Atorvastatin Calcium (Lipitor) 40 mg QHS PO Last administered on 09/18/16 21:16 ; Admin Dose 40 MG; Start 09/07/16 at 21:00 Gabapentin (Neurontin) 900 mg QHS PO Last administered on 09/18/16 21:21; Admin Dose 900 MG; Start 09/07/16 at 21:00 Miscellaneous Information 1 ea NOTE XX ; Start 09/07/16 at 18:00 Glucose (Glutose) 15 gm Q15M PRN PO DECREASED GLUCOSE; Start 09/07/16 at 18:00 Glucose (Glutose) 22.5 gm Q15M PRN PO DECREASED GLUCOSE; Start 09/07/16 at 18: 00 Dextrose (D50w Syringe) 25 ml Q15M PRN IV DECREASED GLUCOSE; Start 09/07/16 at 18:00 Dextrose (D50w Syringe) 50 ml Q15M PRN IV DECREASED GLUCOSE; Start 09/07/16 at 18:00 Glucagon (Glucagen) 1 mg Q15M PRN IM DECREASED GLUCOSE; Start 09/07/16 at 18:00 Glucose (Glutose) 15 gm Q15M PRN BUCCAL DECREASED GLUCOSE; Start 09/07/16 at 18 :00 Naloxone HCl (Narcan) 0.2 mg Q2M PRN IV DECREASED REPIRATORY RATE Last administered on 09/08/16 02:44; Admin Dose 0.2 MG; Start 09/08/16 at 02:30 Tramadol HCl 50 mg 50 mg Q8H PRN PO PAIN Last administered on 09/16/16 12:51; Admin Dose 50 MG; Start 09/08/16 at 16:00 Phenylephrine HCl/ Dextrose (Efraín-Syneph/D5W) 500 ml @ 75 mls/hr TITRATE IV Last administered on 09/17/16 09:25; Admin Dose 45 MLS/HR; Start 09/09/16 at 03: 00 Insulin Aspart (Novolog Insulin Pen) NOVOLOG *MILD* ALGORI... Q4 SC Last administered on 09/16/16 17:04; Admin Dose 1 UNIT; Start 09/09/16 at 05:00 Hydromorphone HCl 0.5 mg 0.5 mg Q2H PRN IV PAIN Last administered on 09/15/16 08:02; Admin Dose 0.5 MG; Start 09/09/16 at 08:30 Total Parenteral Nutrition 1,000 ml @ 40 mls/hr Q24H IV ; Start 09/11/16 at 16: 00; Status Future Hold Amiodarone HCl/ Dextrose (Cordarone Iv/ D5W) 500 ml @ 8.33 mls/hr Q24H IV Last administered on 09/13/16 20:39; Admin Dose 8.33 MLS/HR; Start 09/13/16 at 16:43 Amiodarone HCl (Cordarone) 200 mg DAILY PO Last administered on 09/18/16 08:42 ; Admin Dose 200 MG; Start 09/15/16 at 09:00 Gabapentin (Neurontin) 300 mg PO Last administered on 09/18/16 16:15; Admin Dose 300 MG; Start 09/15/16 at 09:00 Prednisone (Prednisone) 5 mg DAILY PO Last administered on 09/18/16 08:42; Admin Dose 5 MG; Start 09/15/16 at 09:00 Prednisone (Prednisone) 1 mg QHS PO Last administered on 09/18/16 21:23; Admin Dose 1 MG; Start 09/14/16 at 21:00 Insulin Glargine (Lantus) 3 unit BID@08,20 SC Last administered on 09/18/16 21: 26; Admin Dose 3 UNIT; Start 09/15/16 at 20:00 Eye Lubricant (Artificial Tears Oph) 2 drop Q2H PRN BOTH EYES DRY EYES Last administered on 09/18/16 17:40; Admin Dose 2 DROP; Start 09/18/16 at 15:00 TOMER GARCIA MD Sep 19, 2016 08:25
[2016-09-19] MEDS: FENOFIBRATE 48 MG TAB PO SCH (08:32)
[2016-09-19] MEDS: FISH OIL 1,000 MG CAP PO SCH ×2 (08:32→20:19)
[2016-09-19] MEDS: AMIODARONE 200 MG TAB PO SCH (08:32)
[2016-09-19] MEDS: FOLIC ACID 1 MG TAB PO SCH ×2 (08:33→20:19)
[2016-09-19] MEDS: SEVELAMER CARBONATE 0.8 GM PKT PO SCH ×3 (08:33→17:32)
[2016-09-19] MEDS: predniSONE 5 MG TAB PO SCH (08:33)
[2016-09-19] MEDS: LINAGLIPTIN 5 MG TABLET PO SCH (08:33)
[2016-09-19] MEDS: METOPROLOL 25 MG TAB PO SCH ×2 (08:38→20:19)
[2016-09-19] MEDS: SALMETEROL/FLUTICASONE 250/50 INHA INH SCH ×2 (08:38→20:36)
[2016-09-19] MEDS: HEPARIN 5,000 UNIT/0.5 ML VIAL SC SCH ×2 (08:46→20:34)
[2016-09-19] MEDS: GABAPENTIN 300 MG CAP PO SCH ×3 (08:46→20:20)
[2016-09-19] MEDS: INSULIN GLARGINE [LANtus] 3 ML PEN SC SCH ×2 (08:46→20:15)
[2016-09-19] MEDS: FAMOTIDINE 20 MG INJ IV SCH (08:47)
[2016-09-19] MEDS: HYDROCODONE/APAP (5/325) TAB PO PRN (09:42)
[2016-09-19] MEDS: DOCUSATE SODIUM 100 MG CAP PO PRN (09:42)
--- NOTE | 2016-09-19 10:44 | CONS ---
Date/Time of Note Date/Time of Note DATE: 09/19/16 TIME: 10:41 Consult Date/Type/Reason Admit Date/Time September 07, 2016 at 16:36 Initial Consult Date 09/08/16 Type of Consultation: Pulmonary Ordering Provider: TOMER GARCIA MD Subjective Patient stable no new events Objective Vital Signs Date Time Temp Pulse Resp B/P Pulse Ox O2 Delivery O2 Flow Rate FiO2 09/19/16 08:00 70 09/19/16 07:37 2.0 09/19/16 07:00 9 124/86 98 Nasal Cannula 09/19/16 04:00 97.8 Intake and Output 09/18/16 09/18/16 09/19/16 14:59 22:59 06:59 Intake Total 370 ml 240 ml 250 ml Output Total 0 ml 0 ml 0 ml Balance 370 ml 240 ml 250 ml Exam Patient comfortable this morning awake alert, hemodialysis scheduled no vasopressors Results/Medications Result Diagram: 09/19/16 0550 09/19/16 0550 Results 24 hrs Laboratory Tests Test 09/18/16 12:16 09/18/16 16:14 09/18/16 21:13 09/19/16 00:53 Bedside Glucose 111 108 126 111 Test 09/19/16 05:49 09/19/16 05:50 09/19/16 08:26 Bedside Glucose 89 105 White Blood Count 6.8 Red Blood Count 3.25 L Hemoglobin 9.9 L Hematocrit 29.4 L Mean Corpuscular Volume 90.5 Mean Corpuscular Hemoglobin 30.5 Mean Corpuscular Hemoglobin Concent 33.7 Red Cell Distribution Width 14.6 H Platelet Count 254 Mean Platelet Volume 10.6 H Neutrophils % 76.1 Lymphocytes % 17.1 Monocytes % 5.3 Eosinophils % 1.0 Basophils % 0.1 Nucleated Red Blood Cells % 0.0 Neutrophils # 5.2 Lymphocytes # 1.2 Monocytes # 0.4 Eosinophils # 0.1 Basophils # 0.0 Nucleated Red Blood Cells # 0.0 Sodium Level 134 L Potassium Level 5.3 H Chloride Level 94 L Carbon Dioxide Level 28 Anion Gap 17 H Blood Urea Nitrogen 76 H Creatinine 8.86 H Glucose Level 92 Calcium Level 8.5 Total Bilirubin 0.0 L Direct Bilirubin 0.00 Indirect Bilirubin 0.0 Aspartate Amino Transf (AST/SGOT) 16 Alanine Aminotransferase (ALT/SGPT) 25 Alkaline Phosphatase 46 Total Protein 6.7 Albumin 3.8 Globulin 2.90 Albumin/Globulin Ratio 1.31 Medications Current Medications Acetaminophen/ Hydrocodone Bitart ([place] (5/325)) 1 tab Q6H PRN PO MODERATE PAIN LEVEL 4-6 Last administered on 09/19/16 09:42; Admin Dose 1 TAB; Start at 17:30 Acetaminophen/ Hydrocodone Bitart ([place] (5/325)) 2 tab Q6H PRN PO SEVERE PAIN LEVEL 7-10 Last administered on 09/16/16 10:08; Admin Dose 2 TAB; Start at 17:30 Docusate Sodium (Colace) 100 mg Q12H PRN PO CONSTIPATION Last administered on 09:42; Admin Dose 100 MG; Start 09/07/16 at 17:30 Sodium Biphosphate/ Sodium Phosphate (Fleet Enema) 133 ml DAILY PRN [place] CONSTIPATION; Start 09/07/16 at 17:30 Famotidine (Pepcid Iv) 20 mg DAILY IV Last administered on 09/19/16 08:47; Admin Dose 20 MG; Start 09/08/16 at 09:00 Heparin Sodium (Porcine) (Heparin (5000 Units/0.5 ml)) 5,000 unit Q12 SC Last administered on 09/19/16 08:46; Admin Dose 5,000 UNIT; Start 09/07/16 at 21:00 Folic Acid (Folic Acid) 1 mg BID PO Last administered on 09/19/16 08:33; Admin Dose 1 MG; Start 09/07/16 at 21:00 Metoprolol Tartrate (Lopressor) 12.5 mg BID PO Last administered on 09/19/16 08 :38; Admin Dose 12.5 MG; Start 09/07/16 at 23:00 Fenofibrate (Tricor) 48 mg QAM PO Last administered on 09/19/16 08:32; Admin Dose 48 MG; Start 09/08/16 at 09:00 Linagliptin (Tradjenta) 5 mg DAILY PO Last administered on 09/19/16 08:33; Admin Dose 5 MG; Start 09/07/16 at 18:00 Fish Oil (Fish Oil) 2,000 mg BID PO Last administered on 09/19/16 08:32; Admin Dose 2,000 MG; Start 09/07/16 at 21:00 Salmeterol Xinafoate/ Fluticasone (Advair 250/50 Diskus) 1 inh BID INH Last administered on 09/19/16 08:38; Admin Dose 1 INH; Start 09/07/16 at 23:00 Atorvastatin Calcium (Lipitor) 40 mg QHS PO Last administered on 09/18/16 21:16 ; Admin Dose 40 MG; Start 09/07/16 at 21:00 Gabapentin (Neurontin) 900 mg QHS PO Last administered on 09/18/16 21:21; Admin Dose 900 MG; Start 09/07/16 at 21:00 Miscellaneous Information 1 ea NOTE XX ; Start 09/07/16 at 18:00 Glucose (Glutose) 15 gm Q15M PRN PO DECREASED GLUCOSE; Start 09/07/16 at 18:00 Glucose (Glutose) 22.5 gm Q15M PRN PO DECREASED GLUCOSE; Start 09/07/16 at 18: 00 Dextrose (D50w Syringe) 25 ml Q15M PRN IV DECREASED GLUCOSE; Start 09/07/16 at 18:00 Dextrose (D50w Syringe) 50 ml Q15M PRN IV DECREASED GLUCOSE; Start 09/07/16 at 18:00 Glucagon (Glucagen) 1 mg Q15M PRN IM DECREASED GLUCOSE; Start 09/07/16 at 18:00 Glucose (Glutose) 15 gm Q15M PRN BUCCAL DECREASED GLUCOSE; Start 09/07/16 at 18 :00 Naloxone HCl (Narcan) 0.2 mg Q2M PRN IV DECREASED REPIRATORY RATE Last administered on 09/08/16 02:44; Admin Dose 0.2 MG; Start 09/08/16 at 02:30 Tramadol HCl 50 mg 50 mg Q8H PRN PO PAIN Last administered on 09/16/16 12:51; Admin Dose 50 MG; Start 09/08/16 at 16:00 Phenylephrine HCl/ Dextrose (Efraín-Syneph/D5W) 500 ml @ 75 mls/hr TITRATE IV Last administered on 09/17/16 09:25; Admin Dose 45 MLS/HR; Start 09/09/16 at 03: 00 Insulin Aspart (Novolog Insulin Pen) NOVOLOG *MILD* ALGORI... Q4 SC Last administered on 09/16/16 17:04; Admin Dose 1 UNIT; Start 09/09/16 at 05:00 Hydromorphone HCl 0.5 mg 0.5 mg Q2H PRN IV PAIN Last administered on 09/15/16 08:02; Admin Dose 0.5 MG; Start 09/09/16 at 08:30 Amiodarone HCl/ Dextrose (Cordarone Iv/ D5W) 500 ml @ 8.33 mls/hr Q24H IV Last administered on 09/13/16 20:39; Admin Dose 8.33 MLS/HR; Start 09/13/16 at 16:43 Amiodarone HCl (Cordarone) 200 mg DAILY PO Last administered on 09/19/16 08:32 ; Admin Dose 200 MG; Start 09/15/16 at 09:00 Gabapentin (Neurontin) 300 mg 09,16 PO Last administered on 09/19/16 08:46; Admin Dose 300 MG; Start 09/15/16 at 09:00 Prednisone (Prednisone) 5 mg DAILY PO Last administered on 09/19/16 08:33; Admin Dose 5 MG; Start 09/15/16 at 09:00 Prednisone (Prednisone) 1 mg QHS PO Last administered on 09/18/16 21:23; Admin Dose 1 MG; Start 09/14/16 at 21:00 Insulin Glargine (Lantus) 3 unit BID@08,20 SC Last administered on 09/19/16 08: 46; Admin Dose 3 UNIT; Start 09/15/16 at 20:00 Eye Lubricant (Artificial Tears Oph) 2 drop Q2H PRN BOTH EYES DRY EYES Last administered on 09/18/16 17:40; Admin Dose 2 DROP; Start 09/18/16 at 15:00 Assessment/Plan Chief Complaint/Hosp Course IMP: 1. Acute on chronic hypercapnic respiratory failure: multifactorial in etiology. Possible underlying OSH or COPD. Doubt significant [id number] diaphragmatic weakness 2. C-spine injury--high-risk intubation if needed. 3. s/p TAVR. 4. End-stage renal disease, on hemodialysis. 5. Pulmonary sarcoidosis, patient on long-term prednisone use. 6. History of hypertension. 7. Afib with RVR 7. Coronary artery disease. Status post PTCA in the past. 8. CHF 9. Shock combination of hypovolemic RECS: 1. Continue CS will discuss with endocrinology need for stress dose steroids. 2. PICC line care 3. Continue hemodialysis 4. Orthopedic recommendations continue C-spine collar 5. Aspiration precautions 6. DVT and GI prophylaxis Disposition Transfer to telemetry once off vasopressors and remains hemodynamically stable Problems: DEBRA HERNÁNDEZ MD, [facility] Sep 19, 2016 10:44
[2016-09-19] MEDS: HYDROmorphONE 1 MG/ML SYG IV PRN (11:14)
[2016-09-19] MEDS ORDERED: VANCOMYCIN 750 MG in SOD CHLORIDE 0.9% 150 ML IVPB SCH (12:30)
--- NOTE | 2016-09-19 13:43 | CONS ---
Date/Time of Note Date/Time of Note DATE: 09/19/16 TIME: 13:34 Assessment/Plan Assessment/Plan Chief Complaint/Hosp Course Impression: # Atrial Fibrillation- non valvular, now rate controlled. anticoag with Coumadin at baseline now off give c2 fxr, fall # s/p TAVR- stable # s/p fall with C2 cervical fracture # COPD on BIPAP # ESRD on iHD # HTN- currently off meds, hypotensive Recommendations: - on low dose bb - d/c amiodarone as on metop and has chronic afib. - consider digoxin if bp marginal and rates are uncontrolled - off anticoag given c2 fxr and fall - fluid mgmt with iHD per renal - will follow Problems: Consultation Date/Type/Reason Admit Date/Time September 07, 2016 at 16:36 Type of Consultation: Cardiology Referring Provider: TOMER GARCIA MD 24 HR Interval Summary Free Text/Dictation pt seen this am, eating ice chips. sitting at angle, watch tv. denies cp/sob. off pressors, bp stable. hrs 80s-90s afib. tele reviewed, afib rate cotnrolled Detailed Summary Eyes: no complaints ENT: no complaints Respiratory: no complaints Cardiovascular: no complaints Gastrointestinal: no complaints Exam/Review of Systems Vital Signs Vitals Vital Signs Date Time Temp Pulse Resp B/P Pulse Ox O2 Delivery O2 Flow Rate FiO2 09/19/16 12:00 80 09/19/16 10:40 14 09/19/16 08:00 Nasal Cannula 2.0 09/19/16 07:00 124/86 98 09/19/16 04:00 97.8 Intake and Output 09/18/16 09/18/16 09/19/16 15:00 23:00 07:00 Intake Total 370 ml 240 ml 250 ml Output Total 0 ml 0 ml 0 ml Balance 370 ml 240 ml 250 ml Exam Constitutional: alert, oriented Neck: other (in ccollar) Respiratory: clear to auscultation Cardiovascular: edema, other (irregualrly irregular, nl s1s2, rate controlled ii/vi vsem) Gastrointestinal: non-tender, soft Musculoskeletal: nl extremities to inspection Extremities: normal pulses, other (tender to palpation) 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: QUALITY CONTROL INSPECTOR II-XII intact Results Result Diagram: 09/19/16 0550 09/19/16 0550 Results 24 hrs Laboratory Tests Test 09/18/16 16:14 09/18/16 21:13 09/19/16 00:53 09/19/16 05:49 Bedside Glucose 108 126 111 89 Test 09/19/16 05:50 09/19/16 08:26 White Blood Count 6.8 Red Blood Count 3.25 L Hemoglobin 9.9 L Hematocrit 29.4 L Mean Corpuscular Volume 90.5 Mean Corpuscular Hemoglobin 30.5 Mean Corpuscular Hemoglobin Concent 33.7 Red Cell Distribution Width 14.6 H Platelet Count 254 Mean Platelet Volume 10.6 H Neutrophils % 76.1 Lymphocytes % 17.1 Monocytes % 5.3 Eosinophils % 1.0 Basophils % 0.1 Nucleated Red Blood Cells % 0.0 Neutrophils # 5.2 Lymphocytes # 1.2 Monocytes # 0.4 Eosinophils # 0.1 Basophils # 0.0 Nucleated Red Blood Cells # 0.0 Sodium Level 134 L Potassium Level 5.3 H Chloride Level 94 L Carbon Dioxide Level 28 Anion Gap 17 H Blood Urea Nitrogen 76 H Creatinine 8.86 H Glucose Level 92 Calcium Level 8.5 Total Bilirubin 0.0 L Direct Bilirubin 0.00 Indirect Bilirubin 0.0 Aspartate Amino Transf (AST/SGOT) 16 Alanine Aminotransferase (ALT/SGPT) 25 Alkaline Phosphatase 46 Total Protein 6.7 Albumin 3.8 Globulin 2.90 Albumin/Globulin Ratio 1.31 Bedside Glucose 105 Medications Medications Current Medications Acetaminophen/ Hydrocodone Bitart ([place] (5/325)) 1 tab Q6H PRN PO MODERATE PAIN LEVEL 4-6 Last administered on 09/19/16 09:42; Admin Dose 1 TAB; Start at 17:30 Acetaminophen/ Hydrocodone Bitart ([place] (5/325)) 2 tab Q6H PRN PO SEVERE PAIN LEVEL 7-10 Last administered on 09/16/16 10:08; Admin Dose 2 TAB; Start at 17:30 Docusate Sodium (Colace) 100 mg Q12H PRN PO CONSTIPATION Last administered on 09:42; Admin Dose 100 MG; Start 09/07/16 at 17:30 Sodium Biphosphate/ Sodium Phosphate (Fleet Enema) 133 ml DAILY PRN [place] CONSTIPATION; Start 09/07/16 at 17:30 Famotidine (Pepcid Iv) 20 mg DAILY IV Last administered on 09/19/16 08:47; Admin Dose 20 MG; Start 09/08/16 at 09:00 Heparin Sodium (Porcine) (Heparin (5000 Units/0.5 ml)) 5,000 unit Q12 SC Last administered on 09/19/16 08:46; Admin Dose 5,000 UNIT; Start 09/07/16 at 21:00 Folic Acid (Folic Acid) 1 mg BID PO Last administered on 09/19/16 08:33; Admin Dose 1 MG; Start 09/07/16 at 21:00 Metoprolol Tartrate (Lopressor) 12.5 mg BID PO Last administered on 09/19/16 08 :38; Admin Dose 12.5 MG; Start 09/07/16 at 23:00 Fenofibrate (Tricor) 48 mg QAM PO Last administered on 09/19/16 08:32; Admin Dose 48 MG; Start 09/08/16 at 09:00 Linagliptin (Tradjenta) 5 mg DAILY PO Last administered on 09/19/16 08:33; Admin Dose 5 MG; Start 09/07/16 at 18:00 Fish Oil (Fish Oil) 2,000 mg BID PO Last administered on 09/19/16 08:32; Admin Dose 2,000 MG; Start 09/07/16 at 21:00 Salmeterol Xinafoate/ Fluticasone (Advair 250/50 Diskus) 1 inh BID INH Last administered on 09/19/16 08:38; Admin Dose 1 INH; Start 09/07/16 at 23:00 Atorvastatin Calcium (Lipitor) 40 mg QHS PO Last administered on 09/18/16 21:16 ; Admin Dose 40 MG; Start 09/07/16 at 21:00 Gabapentin (Neurontin) 900 mg QHS PO Last administered on 09/18/16 21:21; Admin Dose 900 MG; Start 09/07/16 at 21:00 Miscellaneous Information 1 ea NOTE XX ; Start 09/07/16 at 18:00 Glucose (Glutose) 15 gm Q15M PRN PO DECREASED GLUCOSE; Start 09/07/16 at 18:00 Glucose (Glutose) 22.5 gm Q15M PRN PO DECREASED GLUCOSE; Start 09/07/16 at 18: 00 Dextrose (D50w Syringe) 25 ml Q15M PRN IV DECREASED GLUCOSE; Start 09/07/16 at 18:00 Dextrose (D50w Syringe) 50 ml Q15M PRN IV DECREASED GLUCOSE; Start 09/07/16 at 18:00 Glucagon (Glucagen) 1 mg Q15M PRN IM DECREASED GLUCOSE; Start 09/07/16 at 18:00 Glucose (Glutose) 15 gm Q15M PRN BUCCAL DECREASED GLUCOSE; Start 09/07/16 at 18 :00 Naloxone HCl (Narcan) 0.2 mg Q2M PRN IV DECREASED REPIRATORY RATE Last administered on 09/08/16 02:44; Admin Dose 0.2 MG; Start 09/08/16 at 02:30 Tramadol HCl 50 mg 50 mg Q8H PRN PO PAIN Last administered on 09/16/16 12:51; Admin Dose 50 MG; Start 09/08/16 at 16:00 Phenylephrine HCl/ Dextrose (Efraín-Syneph/D5W) 500 ml @ 75 mls/hr TITRATE IV Last administered on 09/17/16 09:25; Admin Dose 45 MLS/HR; Start 09/09/16 at 03: 00 Hydromorphone HCl 0.5 mg 0.5 mg Q2H PRN IV PAIN Last administered on 09/19/16 11:14; Admin Dose 0.5 MG; Start 09/09/16 at 08:30 Amiodarone HCl/ Dextrose (Cordarone Iv/ D5W) 500 ml @ 8.33 mls/hr Q24H IV Last administered on 09/13/16 20:39; Admin Dose 8.33 MLS/HR; Start 09/13/16 at 16:43 Amiodarone HCl (Cordarone) 200 mg DAILY PO Last administered on 09/19/16 08:32 ; Admin Dose 200 MG; Start 09/15/16 at 09:00 Gabapentin (Neurontin) 300 mg PO Last administered on 09/19/16 08:46; Admin Dose 300 MG; Start 09/15/16 at 09:00 Prednisone (Prednisone) 5 mg DAILY PO Last administered on 09/19/16 08:33; Admin Dose 5 MG; Start 09/15/16 at 09:00 Prednisone (Prednisone) 1 mg QHS PO Last administered on 09/18/16 21:23; Admin Dose 1 MG; Start 09/14/16 at 21:00 Insulin Glargine (Lantus) 3 unit BID@08,20 SC Last administered on 09/19/16 08: 46; Admin Dose 3 UNIT; Start 09/15/16 at 20:00 Eye Lubricant (Artificial Tears Oph) 2 drop Q2H PRN BOTH EYES DRY EYES Last administered on 09/18/16 17:40; Admin Dose 2 DROP; Start 09/18/16 at 15:00 Diagnostic Test (Pha) 1 ea 1 ea 02 XX ; Start 09/20/16 at 02:00 Vancomycin HCl/ Sodium Chloride (Vancocin/NS) 150 ml @ 75 mls/hr ONCE IVPB ; Start 09/19/16 at 12:30; Stop 09/19/16 at 16:00 EVELYN RANKIN Sep 19, 2016 13:43
[2016-09-19] MEDS: predniSONE 2.5 MG TAB PO SCH (17:32)
[2016-09-19] MEDS: ATORVASTATIN 40 MG TAB PO SCH (20:19)
[2016-09-19] MEDS: predniSONE 1 MG TAB PO SCH (20:36)
[2016-09-20] VITALS (13 sets, daily range): BP systolic 101–142; BP diastolic 41–65; PULSE 70–80; RESP 11–20
[2016-09-20] MEDS: ACCU-CHEK XX SCH (01:48)
--- NOTE | 2016-09-20 07:43 | CONS ---
Date/Time of Note Date/Time of Note DATE: 09/20/16 TIME: 07:40 Assessment/Plan Assessment/Plan Problems: (1) Atrial fibrillation Status: Chronic Comment: controlled.. off anti coag Qualifiers: Atrial fibrillation type: chronic Qualified Code: I48.2 - Chronic atrial fibrillation (2) C2 cervical fracture Status: Acute Comment: stable... in hard collar... neuro intact... needs more PT Qualifiers: Encounter type: initial encounter Fracture type: closed Fracture morphology: other dens Fracture alignment: displaced Qualified Code: S12.120A - Other closed displaced odontoid fracture, initial encounter (3) ESRD (end stage renal disease) on dialysis Status: Chronic Comment: well nas... for HD in am (4) Aortic stenosis Status: Chronic Comment: s/p TAVR, stable, and asx Qualifiers: Cardiac valve disease etiology: nonrheumatic Qualified Code: I35.0 - Nonrheumatic aortic valve stenosis Consultation Date/Type/Reason Admit Date/Time September 07, 2016 at 16:36 Initial Consult Date 09/08/16 Type of Consultation: neph Referring Provider: TOMER GARCIA MD 24 HR Interval Summary Free Text/Dictation looks great!... up on floor now Exam/Review of Systems Vital Signs Vitals Vital Signs Date Time Temp Pulse Resp B/P Pulse Ox O2 Delivery O2 Flow Rate FiO2 09/20/16 06:09 2.0 09/20/16 04:16 80 09/20/16 03:00 11 124/55 99 Nasal Cannula 09/20/16 00:00 98.0 Intake and Output 09/19/16 09/19/16 09/20/16 15:00 23:00 07:00 Intake Total 650 ml 150 ml 0 ml Output Total 1900 ml 0 ml 0 ml Balance -1250 ml 150 ml 0 ml Exam Constitutional: alert, oriented Psych: no complaints Head: normocephalic Eyes: nl conjunctiva Neck: other (hard collar in place) Cardiovascular: irregular rhythm (controlled af) Extremities: normal pulses (fxn AVF) Results Result Diagram: 09/19/16 0550 09/19/16 0550 Results 24 hrs Laboratory Tests Test 09/19/16 08:26 09/19/16 14:09 09/19/16 17:36 09/19/16 20:16 Bedside Glucose 105 142 93 110 Test 09/20/16 01:47 Bedside Glucose 119 Medications Medications Current Medications Acetaminophen/ Hydrocodone Bitart ([place] (5/325)) 1 tab Q6H PRN PO MODERATE PAIN LEVEL 4-6 Last administered on 09/19/16 09:42; Admin Dose 1 TAB; Start at 17:30 Acetaminophen/ Hydrocodone Bitart ([place] (5/325)) 2 tab Q6H PRN PO SEVERE PAIN LEVEL 7-10 Last administered on 09/16/16 10:08; Admin Dose 2 TAB; Start at 17:30 Docusate Sodium (Colace) 100 mg Q12H PRN PO CONSTIPATION Last administered on 09:42; Admin Dose 100 MG; Start 09/07/16 at 17:30 Sodium Biphosphate/ Sodium Phosphate (Fleet Enema) 133 ml DAILY PRN [place] CONSTIPATION; Start 09/07/16 at 17:30 Famotidine (Pepcid Iv) 20 mg DAILY IV Last administered on 09/19/16 08:47; Admin Dose 20 MG; Start 09/08/16 at 09:00 Heparin Sodium (Porcine) (Heparin (5000 Units/0.5 ml)) 5,000 unit Q12 SC Last administered on 09/19/16 20:34; Admin Dose 5,000 UNIT; Start 09/07/16 at 21:00 Folic Acid (Folic Acid) 1 mg BID PO Last administered on 09/19/16 20:19; Admin Dose 1 MG; Start 09/07/16 at 21:00 Metoprolol Tartrate (Lopressor) 12.5 mg BID PO Last administered on 09/19/16 20 :19; Admin Dose 12.5 MG; Start 09/07/16 at 23:00 Fenofibrate (Tricor) 48 mg QAM PO Last administered on 09/19/16 08:32; Admin Dose 48 MG; Start 09/08/16 at 09:00 Linagliptin (Tradjenta) 5 mg DAILY PO Last administered on 09/19/16 08:33; Admin Dose 5 MG; Start 09/07/16 at 18:00 Fish Oil (Fish Oil) 2,000 mg BID PO Last administered on 09/19/16 20:19; Admin Dose 2,000 MG; Start 09/07/16 at 21:00 Salmeterol Xinafoate/ Fluticasone (Advair 250/50 Diskus) 1 inh BID INH Last administered on 09/19/16 20:36; Admin Dose 1 INH; Start 09/07/16 at 23:00 Atorvastatin Calcium (Lipitor) 40 mg QHS PO Last administered on 09/19/16 20:19 ; Admin Dose 40 MG; Start 09/07/16 at 21:00 Gabapentin (Neurontin) 900 mg QHS PO Last administered on 09/19/16 20:20; Admin Dose 900 MG; Start 09/07/16 at 21:00 Miscellaneous Information 1 ea NOTE XX ; Start 09/07/16 at 18:00 Glucose (Glutose) 15 gm Q15M PRN PO DECREASED GLUCOSE; Start 09/07/16 at 18:00 Glucose (Glutose) 22.5 gm Q15M PRN PO DECREASED GLUCOSE; Start 09/07/16 at 18: 00 Dextrose (D50w Syringe) 25 ml Q15M PRN IV DECREASED GLUCOSE; Start 09/07/16 at 18:00 Dextrose (D50w Syringe) 50 ml Q15M PRN IV DECREASED GLUCOSE; Start 09/07/16 at 18:00 Glucagon (Glucagen) 1 mg Q15M PRN IM DECREASED GLUCOSE; Start 09/07/16 at 18:00 Glucose (Glutose) 15 gm Q15M PRN BUCCAL DECREASED GLUCOSE; Start 09/07/16 at 18 :00 Naloxone HCl (Narcan) 0.2 mg Q2M PRN IV DECREASED REPIRATORY RATE Last administered on 09/08/16 02:44; Admin Dose 0.2 MG; Start 09/08/16 at 02:30 Tramadol HCl (Ultram) 50 mg Q8H PRN PO PAIN Last administered on 09/16/16 12:51 ; Admin Dose 50 MG; Start 09/08/16 at 16:00 Hydromorphone HCl (Dilaudid) 0.5 mg Q2H PRN IV PAIN Last administered on 11:14; Admin Dose 0.5 MG; Start 09/09/16 at 08:30 Gabapentin (Neurontin) 300 mg ,16 PO Last administered on 09/19/16 17:32; Admin Dose 300 MG; Start 09/15/16 at 09:00 Prednisone (Prednisone) 5 mg DAILY PO Last administered on 09/19/16 08:33; Admin Dose 5 MG; Start 09/15/16 at 09:00 Prednisone (Prednisone) 1 mg QHS PO Last administered on 09/19/16 20:36; Admin Dose 1 MG; Start 09/14/16 at 21:00 Insulin Glargine (Lantus) 3 unit BID@08,20 SC Last administered on 09/19/16 20: 15; Admin Dose 3 UNIT; Start 09/15/16 at 20:00 Eye Lubricant (Artificial Tears Oph) 2 drop Q2H PRN BOTH EYES DRY EYES Last administered on 09/18/16 17:40; Admin Dose 2 DROP; Start 09/18/16 at 15:00 Diagnostic Test (Pha) (Accu-Chek) 1 ea 02 XX ; Start 09/20/16 at 02:00 NICO HAY MD Sep 20, 2016 07:43
[2016-09-20] MEDS: INSULIN ASPART [NOVOLOG] 3 ML PEN SC SCH ×4 (07:55→23:49)
[2016-09-20] MEDS: FISH OIL 1,000 MG CAP PO SCH (08:51)
[2016-09-20] MEDS: predniSONE 5 MG TAB PO SCH (08:51)
[2016-09-20] MEDS: LINAGLIPTIN 5 MG TABLET PO SCH (08:51)
[2016-09-20] MEDS: SALMETEROL/FLUTICASONE 250/50 INHA INH SCH ×2 (08:51→21:02)
[2016-09-20] MEDS: FOLIC ACID 1 MG TAB PO SCH ×2 (08:51→21:02)
[2016-09-20] MEDS: FAMOTIDINE 20 MG INJ IV SCH (08:52)
[2016-09-20] MEDS: SEVELAMER CARBONATE 0.8 GM PKT PO SCH ×3 (08:52→17:41)
[2016-09-20] MEDS: METOPROLOL 25 MG TAB PO SCH ×2 (08:53→20:36)
[2016-09-20] MEDS: HYDROmorphONE 1 MG/ML SYG IV PRN ×2 (09:28→21:03)
[2016-09-20] MEDS: INSULIN GLARGINE [LANtus] 3 ML PEN SC SCH ×2 (09:31→23:51)
[2016-09-20] MEDS: HEPARIN 5,000 UNIT/0.5 ML VIAL SC SCH ×2 (09:47→21:19)
[2016-09-20] MEDS: GABAPENTIN 300 MG CAP PO SCH ×3 (09:50→21:02)
[2016-09-20] MEDS: FENOFIBRATE 48 MG TAB PO SCH (11:45)
--- NOTE | 2016-09-20 13:05 | CONS ---
Date/Time of Note Date/Time of Note DATE: 09/20/16 TIME: 13:03 Consult Date/Type/Reason Admit Date/Time September 07, 2016 at 16:36 Initial Consult Date 09/08/16 Type of Consultation: Pulmonary Ordering Provider: TOMER GARCIA MD Subjective Patient comfortable no new events Objective Vital Signs Date Time Temp Pulse Resp B/P Pulse Ox O2 Delivery O2 Flow Rate FiO2 09/20/16 12:00 98.0 91 20 108/51 98 09/20/16 08:00 Nasal Cannula 2.0 Intake and Output 09/19/16 09/19/16 09/20/16 14:59 22:59 06:59 Intake Total 650 ml 150 ml 0 ml Output Total 1900 ml 0 ml 0 ml Balance -1250 ml 150 ml 0 ml Exam GENERAL: Elderly lady comfortable in bed with c-collar VITAL SIGNS: per chart NECK: Supple. No JVD or lymphadenopathy. CARDIAC EXAM: S1, S2. No added sounds or murmurs. CHEST: diminished air entry both lung bases ABDOMEN: Soft, nontender. No guarding or rebound. EXTREMITIES: No cyanosis, clubbing or edema. NEUROLOGIC: Generalized weakness. Results/Medications Result Diagram: 09/19/16 0550 09/19/16 0550 Results 24 hrs Laboratory Tests Test 09/19/16 14:09 09/19/16 17:36 09/19/16 20:16 09/20/16 01:47 Bedside Glucose 142 93 110 119 Test 09/20/16 08:14 09/20/16 11:50 Bedside Glucose 81 118 Medications Current Medications Acetaminophen/ Hydrocodone Bitart ([place] (5/325)) 1 tab Q6H PRN PO MODERATE PAIN LEVEL 4-6 Last administered on 09/19/16 09:42; Admin Dose 1 TAB; Start at 17:30 Acetaminophen/ Hydrocodone Bitart ([place] (5/325)) 2 tab Q6H PRN PO SEVERE PAIN LEVEL 7-10 Last administered on 09/16/16 10:08; Admin Dose 2 TAB; Start at 17:30 Docusate Sodium (Colace) 100 mg Q12H PRN PO CONSTIPATION Last administered on 09:42; Admin Dose 100 MG; Start 09/07/16 at 17:30 Sodium Biphosphate/ Sodium Phosphate (Fleet Enema) 133 ml DAILY PRN [place] CONSTIPATION; Start 09/07/16 at 17:30 Famotidine (Pepcid Iv) 20 mg DAILY IV Last administered on 09/20/16 08:52; Admin Dose 20 MG; Start 09/08/16 at 09:00 Heparin Sodium (Porcine) (Heparin (5000 Units/0.5 ml)) 5,000 unit Q12 SC Last administered on 09/20/16 09:47; Admin Dose 5,000 UNIT; Start 09/07/16 at 21:00 Folic Acid (Folic Acid) 1 mg BID PO Last administered on 09/20/16 08:51; Admin Dose 1 MG; Start 09/07/16 at 21:00 Metoprolol Tartrate (Lopressor) 12.5 mg BID PO Last administered on 09/20/16 08 :53; Admin Dose 12.5 MG; Start 09/07/16 at 23:00 Fenofibrate (Tricor) 48 mg QAM PO Last administered on 09/20/16 11:45; Admin Dose 48 MG; Start 09/08/16 at 09:00 Linagliptin (Tradjenta) 5 mg DAILY PO Last administered on 09/20/16 08:51; Admin Dose 5 MG; Start 09/07/16 at 18:00 Fish Oil (Fish Oil) 2,000 mg BID PO Last administered on 09/20/16 08:51; Admin Dose 2,000 MG; Start 09/07/16 at 21:00 Salmeterol Xinafoate/ Fluticasone (Advair 250/50 Diskus) 1 inh BID INH Last administered on 09/20/16 08:51; Admin Dose 1 INH; Start 09/07/16 at 23:00 Atorvastatin Calcium (Lipitor) 40 mg QHS PO Last administered on 09/19/16 20:19 ; Admin Dose 40 MG; Start 09/07/16 at 21:00 Gabapentin (Neurontin) 900 mg QHS PO Last administered on 09/19/16 20:20; Admin Dose 900 MG; Start 09/07/16 at 21:00 Miscellaneous Information 1 ea NOTE XX ; Start 09/07/16 at 18:00 Glucose (Glutose) 15 gm Q15M PRN PO DECREASED GLUCOSE; Start 09/07/16 at 18:00 Glucose (Glutose) 22.5 gm Q15M PRN PO DECREASED GLUCOSE; Start 09/07/16 at 18: 00 Dextrose (D50w Syringe) 25 ml Q15M PRN IV DECREASED GLUCOSE; Start 09/07/16 at 18:00 Dextrose (D50w Syringe) 50 ml Q15M PRN IV DECREASED GLUCOSE; Start 09/07/16 at 18:00 Glucagon (Glucagen) 1 mg Q15M PRN IM DECREASED GLUCOSE; Start 09/07/16 at 18:00 Glucose (Glutose) 15 gm Q15M PRN BUCCAL DECREASED GLUCOSE; Start 09/07/16 at 18 :00 Naloxone HCl (Narcan) 0.2 mg Q2M PRN IV DECREASED REPIRATORY RATE Last administered on 09/08/16 02:44; Admin Dose 0.2 MG; Start 09/08/16 at 02:30 Tramadol HCl (Ultram) 50 mg Q8H PRN PO PAIN Last administered on 09/16/16 12:51 ; Admin Dose 50 MG; Start 09/08/16 at 16:00 Hydromorphone HCl (Dilaudid) 0.5 mg Q2H PRN IV PAIN Last administered on 09:28; Admin Dose 0.5 MG; Start 09/09/16 at 08:30 Gabapentin (Neurontin) 300 mg 16 PO Last administered on 09/20/16 09:50; Admin Dose 300 MG; Start 09/15/16 at 09:00 Prednisone (Prednisone) 5 mg DAILY PO Last administered on 09/20/16 08:51; Admin Dose 5 MG; Start 09/15/16 at 09:00 Prednisone (Prednisone) 1 mg QHS PO Last administered on 09/19/16 20:36; Admin Dose 1 MG; Start 09/14/16 at 21:00 Insulin Glargine (Lantus) 3 unit BID@08,20 SC Last administered on 09/20/16 09: 31; Admin Dose 3 UNIT; Start 09/15/16 at 20:00 Eye Lubricant (Artificial Tears Oph) 2 drop Q2H PRN BOTH EYES DRY EYES Last administered on 09/18/16 17:40; Admin Dose 2 DROP; Start 09/18/16 at 15:00 Diagnostic Test (Pha) (Accu-Chek) 1 ea 02 XX ; Start 09/20/16 at 02:00 Epoetin César (Epogen (Esrd)) 10,000 units MoWeFr@17 SC ; Start 09/21/16 at 17:00 Assessment/Plan Chief Complaint/Hosp Course IMP: 1. Acute on chronic hypercapnic respiratory failure: multifactorial in etiology. Possible underlying OSH or COPD. Doubt significant [id number] diaphragmatic weakness 2. C-spine injury-- 3. s/p TAVR. 4. End-stage renal disease, on hemodialysis. 5. Pulmonary sarcoidosis, patient on long-term prednisone use. 6. History of hypertension. 7. Afib with RVR 8. Coronary artery disease. Status post PTCA in the past. History of CHF RECS: 1. Continue CS 2. PICC line care 3. Continue hemodialysis 4. Orthopedic recommendations continue C-spine collar 5. Aspiration precautions 6. DVT and GI prophylaxis Disposition Continue current care consider transfer to [facility]. Problems: DEBRA HERNÁNDEZ MD, [facility] Sep 20, 2016 13:05
--- NOTE | 2016-09-20 16:34 | CONS ---
Date/Time of Note Date/Time of Note DATE: 09/20/16 TIME: 16:32 Assessment/Plan Assessment/Plan Chief Complaint/Hosp Course Impression: # Atrial Fibrillation- non valvular, now rate controlled. anticoag with Coumadin at baseline now off give c2 fxr, fall # s/p TAVR- stable # s/p fall with C2 cervical fracture # COPD on BIPAP # ESRD on iHD # HTN- currently off meds, hypotensive Recommendations: - on low dose bb, if bp remains stable will titrate - off amiodarone as tolerating bb and has chronic afib - off anticoag given c2 fxr and fall - fluid mgmt with iHD per renal - will follow Problems: Consultation Date/Type/Reason Admit Date/Time September 07, 2016 at 16:36 Type of Consultation: cardiology Referring Provider: TOMER GARCIA MD 24 HR Interval Summary Free Text/Dictation pt transferred to floor. now off o2, denies sob. no palliations, cp. bp stable tele reviewed: afib, rate controlled Exam/Review of Systems Vital Signs Vitals Vital Signs Date Time Temp Pulse Resp B/P Pulse Ox O2 Delivery O2 Flow Rate FiO2 09/20/16 16:00 78 09/20/16 15:18 98.6 20 132/58 96 09/20/16 08:00 Nasal Cannula 2.0 Intake and Output 09/19/16 09/19/16 09/20/16 15:00 23:00 07:00 Intake Total 650 ml 150 ml 0 ml Output Total 1900 ml 0 ml 0 ml Balance -1250 ml 150 ml 0 ml Exam Constitutional: alert, oriented Neck: other (in ccollar) Respiratory: clear to auscultation Cardiovascular: edema, other (irregualrly irregular, nl s1s2, rate controlled ii/vi vsem) Gastrointestinal: non-tender, soft Musculoskeletal: nl extremities to inspection Extremities: normal pulses, other (tender to palpation) 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: [employer] II-XII intact Results Result Diagram: 09/19/16 0550 09/19/16 0550 Results 24 hrs Laboratory Tests Test 09/19/16 17:36 09/19/16 20:16 09/20/16 01:47 09/20/16 08:14 Bedside Glucose 93 110 119 81 Test 09/20/16 11:50 Bedside Glucose 118 Medications Medications Current Medications Acetaminophen/ Hydrocodone Bitart ([place] (5/325)) 1 tab Q6H PRN PO MODERATE PAIN LEVEL 4-6 Last administered on 09/19/16 09:42; Admin Dose 1 TAB; Start at 17:30 Acetaminophen/ Hydrocodone Bitart ([place] (5/325)) 2 tab Q6H PRN PO SEVERE PAIN LEVEL 7-10 Last administered on 09/16/16 10:08; Admin Dose 2 TAB; Start at 17:30 Docusate Sodium (Colace) 100 mg Q12H PRN PO CONSTIPATION Last administered on 09:42; Admin Dose 100 MG; Start 09/07/16 at 17:30 Sodium Biphosphate/ Sodium Phosphate (Fleet Enema) 133 ml DAILY PRN [place] CONSTIPATION; Start 09/07/16 at 17:30 Famotidine (Pepcid Iv) 20 mg DAILY IV Last administered on 09/20/16 08:52; Admin Dose 20 MG; Start 09/08/16 at 09:00 Heparin Sodium (Porcine) (Heparin (5000 Units/0.5 ml)) 5,000 unit Q12 SC Last administered on 09/20/16 09:47; Admin Dose 5,000 UNIT; Start 09/07/16 at 21:00 Folic Acid (Folic Acid) 1 mg BID PO Last administered on 09/20/16 08:51; Admin Dose 1 MG; Start 09/07/16 at 21:00 Metoprolol Tartrate (Lopressor) 12.5 mg BID PO Last administered on 09/20/16 08 :53; Admin Dose 12.5 MG; Start 09/07/16 at 23:00 Fenofibrate (Tricor) 48 mg QAM PO Last administered on 09/20/16 11:45; Admin Dose 48 MG; Start 09/08/16 at 09:00 Linagliptin (Tradjenta) 5 mg DAILY PO Last administered on 09/20/16 08:51; Admin Dose 5 MG; Start 09/07/16 at 18:00 Fish Oil (Fish Oil) 2,000 mg BID PO Last administered on 09/20/16 08:51; Admin Dose 2,000 MG; Start 09/07/16 at 21:00 Salmeterol Xinafoate/ Fluticasone (Advair 250/50 Diskus) 1 inh BID INH Last administered on 09/20/16 08:51; Admin Dose 1 INH; Start 09/07/16 at 23:00 Atorvastatin Calcium (Lipitor) 40 mg QHS PO Last administered on 09/19/16 20:19 ; Admin Dose 40 MG; Start 09/07/16 at 21:00 Gabapentin (Neurontin) 900 mg QHS PO Last administered on 09/19/16 20:20; Admin Dose 900 MG; Start 09/07/16 at 21:00 Miscellaneous Information 1 ea NOTE XX ; Start 09/07/16 at 18:00 Glucose (Glutose) 15 gm Q15M PRN PO DECREASED GLUCOSE; Start 09/07/16 at 18:00 Glucose (Glutose) 22.5 gm Q15M PRN PO DECREASED GLUCOSE; Start 09/07/16 at 18: 00 Dextrose (D50w Syringe) 25 ml Q15M PRN IV DECREASED GLUCOSE; Start 09/07/16 at 18:00 Dextrose (D50w Syringe) 50 ml Q15M PRN IV DECREASED GLUCOSE; Start 09/07/16 at 18:00 Glucagon (Glucagen) 1 mg Q15M PRN IM DECREASED GLUCOSE; Start 09/07/16 at 18:00 Glucose (Glutose) 15 gm Q15M PRN BUCCAL DECREASED GLUCOSE; Start 09/07/16 at 18 :00 Naloxone HCl (Narcan) 0.2 mg Q2M PRN IV DECREASED REPIRATORY RATE Last administered on 09/08/16 02:44; Admin Dose 0.2 MG; Start 09/08/16 at 02:30 Tramadol HCl (Ultram) 50 mg Q8H PRN PO PAIN Last administered on 09/16/16 12:51 ; Admin Dose 50 MG; Start 09/08/16 at 16:00 Hydromorphone HCl (Dilaudid) 0.5 mg Q2H PRN IV PAIN Last administered on 09:28; Admin Dose 0.5 MG; Start 09/09/16 at 08:30 Gabapentin (Neurontin) 300 mg 09,16 PO Last administered on 09/20/16 16:15; Admin Dose 300 MG; Start 09/15/16 at 09:00 Prednisone (Prednisone) 5 mg DAILY PO Last administered on 09/20/16 08:51; Admin Dose 5 MG; Start 09/15/16 at 09:00 Prednisone (Prednisone) 1 mg QHS PO Last administered on 09/19/16 20:36; Admin Dose 1 MG; Start 09/14/16 at 21:00 Insulin Glargine (Lantus) 3 unit BID@08,20 SC Last administered on 09/20/16 09: 31; Admin Dose 3 UNIT; Start 09/15/16 at 20:00 Eye Lubricant (Artificial Tears Oph) 2 drop Q2H PRN BOTH EYES DRY EYES Last administered on 09/18/16 17:40; Admin Dose 2 DROP; Start 09/18/16 at 15:00 Diagnostic Test (Pha) (Accu-Chek) 1 ea 02 XX ; Start 09/20/16 at 02:00 Epoetin César (Epogen (Esrd)) 10,000 units MoWeFr@17 SC ; Start 09/21/16 at 17:00 Miscellaneous Information (*Rx Drug Level Order Reminder*) 1 ONCE ONCE XX ; Start 09/21/16 at 05:00; Stop 09/21/16 at 05:01 Procedures Procedures imaging reports reviewed in emr EVELYN RANKIN Sep 20, 2016 16:34
--- NOTE | 2016-09-20 17:39 | PN ---
Date/Time of Note Date/Time of Note DATE: 09/20/16 TIME: 17:34 Assessment/Plan VTE Prophylaxis VTE Prophylaxis Intervention: contraindicated Lines/Catheters IV [facility] PICC Line Central line still needed: Yes Urinary Cath still in place: No Assessment/Plan Problems: (1) Atrial fibrillation Status: Chronic Comment: rate controlled at present regimen Qualifiers: Atrial fibrillation type: chronic Qualified Code: I48.2 - Chronic atrial fibrillation (2) C2 cervical fracture Status: Acute Comment: Stable and in hard collar. Work toward placement in rehab as expect adequate recovery hopefully. Qualifiers: Encounter type: initial encounter Fracture type: closed Fracture morphology: other dens Fracture alignment: displaced Qualified Code: S12.120A - Other closed displaced odontoid fracture, initial encounter (3) Positive blood culture Status: Acute Comment: 1 of 2 bottles with coag negative staph. Likely contaminat (4) COPD (chronic obstructive pulmonary disease) Status: Chronic Comment: stable Qualifiers: COPD type: emphysema Emphysema type: panlobular Qualified Code: J43.1 - Panlobular emphysema (5) ESRD (end stage renal disease) on dialysis Status: Chronic Comment: as per nephrology, continue hemodialysis (6) Diabetes mellitus type 2 in obese Status: Chronic Comment: good control (7) Hypertension associated with chronic kidney disease due to type 2 diabetes mellitus Status: Chronic Comment: stable (8) Status post transcatheter aortic valve replacement (TAVR) using bioprosthesis Status: Acute Comment: No symptoms of cardiac issues Subjective 24 Hr Interval Summary Free Text/Dictation Patient out of ICU and improving Constitutional: no complaints ENT: dysphagia Respiratory: no complaints Cardiovascular: no complaints Gastrointestinal: no complaints Exam/Review of Systems Vital Signs Vitals Vital Signs Date Time Temp Pulse Resp B/P Pulse Ox O2 Delivery O2 Flow Rate FiO2 09/20/16 16:00 78 09/20/16 15:18 98.6 20 132/58 96 09/20/16 08:00 Nasal Cannula 2.0 Intake and Output 09/19/16 09/19/16 09/20/16 15:00 23:00 07:00 Intake Total 650 ml 150 ml 0 ml Output Total 1900 ml 0 ml 0 ml Balance -1250 ml 150 ml 0 ml Exam Constitutional: alert, oriented Neck: non-tender Respiratory: clear to auscultation, normal air movement Cardiovascular: irregular rhythm, nl pulses Gastrointestinal: nl liver, spleen, non-tender, soft Results Result Diagram: 09/19/16 0550 09/19/16 0550 Results 24 hrs Laboratory Tests Test 09/19/16 17:36 09/19/16 20:16 09/20/16 01:47 09/20/16 08:14 Bedside Glucose 93 110 119 81 Test 09/20/16 11:50 Bedside Glucose 118 Medications Medications Current Medications Acetaminophen/ Hydrocodone Bitart ([place] (5/325)) 1 tab Q6H PRN PO MODERATE PAIN LEVEL 4-6 Last administered on 09/19/16 09:42; Admin Dose 1 TAB; Start at 17:30 Acetaminophen/ Hydrocodone Bitart ([place] (5/325)) 2 tab Q6H PRN PO SEVERE PAIN LEVEL 7-10 Last administered on 09/16/16 10:08; Admin Dose 2 TAB; Start at 17:30 Docusate Sodium (Colace) 100 mg Q12H PRN PO CONSTIPATION Last administered on 09:42; Admin Dose 100 MG; Start 09/07/16 at 17:30 Sodium Biphosphate/ Sodium Phosphate (Fleet Enema) 133 ml DAILY PRN [place] CONSTIPATION; Start 09/07/16 at 17:30 Famotidine (Pepcid Iv) 20 mg DAILY IV Last administered on 09/20/16 08:52; Admin Dose 20 MG; Start 09/08/16 at 09:00 Heparin Sodium (Porcine) (Heparin (5000 Units/0.5 ml)) 5,000 unit Q12 SC Last administered on 09/20/16 09:47; Admin Dose 5,000 UNIT; Start 09/07/16 at 21:00 Folic Acid (Folic Acid) 1 mg BID PO Last administered on 09/20/16 08:51; Admin Dose 1 MG; Start 09/07/16 at 21:00 Metoprolol Tartrate (Lopressor) 12.5 mg BID PO Last administered on 09/20/16 08 :53; Admin Dose 12.5 MG; Start 09/07/16 at 23:00 Fenofibrate (Tricor) 48 mg QAM PO Last administered on 09/20/16 11:45; Admin Dose 48 MG; Start 09/08/16 at 09:00 Linagliptin (Tradjenta) 5 mg DAILY PO Last administered on 09/20/16 08:51; Admin Dose 5 MG; Start 09/07/16 at 18:00 Fish Oil (Fish Oil) 2,000 mg BID PO Last administered on 09/20/16 08:51; Admin Dose 2,000 MG; Start 09/07/16 at 21:00 Salmeterol Xinafoate/ Fluticasone (Advair 250/50 Diskus) 1 inh BID INH Last administered on 09/20/16 08:51; Admin Dose 1 INH; Start 09/07/16 at 23:00 Atorvastatin Calcium (Lipitor) 40 mg QHS PO Last administered on 09/19/16 20:19 ; Admin Dose 40 MG; Start 09/07/16 at 21:00 Gabapentin (Neurontin) 900 mg QHS PO Last administered on 09/19/16 20:20; Admin Dose 900 MG; Start 09/07/16 at 21:00 Miscellaneous Information 1 ea NOTE XX ; Start 09/07/16 at 18:00 Glucose (Glutose) 15 gm Q15M PRN PO DECREASED GLUCOSE; Start 09/07/16 at 18:00 Glucose (Glutose) 22.5 gm Q15M PRN PO DECREASED GLUCOSE; Start 09/07/16 at 18: 00 Dextrose (D50w Syringe) 25 ml Q15M PRN IV DECREASED GLUCOSE; Start 09/07/16 at 18:00 Dextrose (D50w Syringe) 50 ml Q15M PRN IV DECREASED GLUCOSE; Start 09/07/16 at 18:00 Glucagon (Glucagen) 1 mg Q15M PRN IM DECREASED GLUCOSE; Start 09/07/16 at 18:00 Glucose (Glutose) 15 gm Q15M PRN BUCCAL DECREASED GLUCOSE; Start 09/07/16 at 18 :00 Naloxone HCl (Narcan) 0.2 mg Q2M PRN IV DECREASED REPIRATORY RATE Last administered on 09/08/16 02:44; Admin Dose 0.2 MG; Start 09/08/16 at 02:30 Tramadol HCl (Ultram) 50 mg Q8H PRN PO PAIN Last administered on 09/16/16 12:51 ; Admin Dose 50 MG; Start 09/08/16 at 16:00 Hydromorphone HCl (Dilaudid) 0.5 mg Q2H PRN IV PAIN Last administered on 09:28; Admin Dose 0.5 MG; Start 09/09/16 at 08:30 Gabapentin (Neurontin) 300 mg 09,16 PO Last administered on 09/20/16 16:15; Admin Dose 300 MG; Start 09/15/16 at 09:00 Prednisone (Prednisone) 5 mg DAILY PO Last administered on 09/20/16 08:51; Admin Dose 5 MG; Start 09/15/16 at 09:00 Prednisone (Prednisone) 1 mg QHS PO Last administered on 09/19/16 20:36; Admin Dose 1 MG; Start 09/14/16 at 21:00 Insulin Glargine (Lantus) 3 unit BID@08,20 SC Last administered on 09/20/16 09: 31; Admin Dose 3 UNIT; Start 09/15/16 at 20:00 Eye Lubricant (Artificial Tears Oph) 2 drop Q2H PRN BOTH EYES DRY EYES Last administered on 09/18/16 17:40; Admin Dose 2 DROP; Start 09/18/16 at 15:00 Diagnostic Test (Pha) (Accu-Chek) 1 ea 02 XX ; Start 09/20/16 at 02:00 Epoetin César (Epogen (Esrd)) 10,000 units MoWeFr@17 SC ; Start 09/21/16 at 17:00 Miscellaneous Information (*Rx Drug Level Order Reminder*) 1 ONCE ONCE XX ; Start 09/21/16 at 05:00; Stop 09/21/16 at 05:01 TOMER GARCIA MD Sep 20, 2016 17:39
[2016-09-20] MEDS: predniSONE 2.5 MG TAB PO SCH (17:40)
[2016-09-20] MEDS: ATORVASTATIN 40 MG TAB PO SCH (21:02)
[2016-09-20] MEDS: predniSONE 1 MG TAB PO SCH (23:44)
[2016-09-21] VITALS (19 sets, daily range): BP systolic 103–141; BP diastolic 49–97; PULSE 66–90; RESP 16–20
[2016-09-21] MEDS: ACCU-CHEK XX SCH ×2 (00:29→22:03)
[2016-09-21] MEDS: HYDROmorphONE 1 MG/ML SYG IV PRN (01:36)
[2016-09-21] MEDS: SEVELAMER CARBONATE 0.8 GM PKT PO SCH ×3 (07:55→17:32)
[2016-09-21] MEDS: INSULIN ASPART [NOVOLOG] 3 ML PEN SC SCH ×4 (07:55→22:02)
[2016-09-21] MEDS: HYDROCODONE/APAP (5/325) TAB PO PRN (07:57)
[2016-09-21] MEDS: INSULIN GLARGINE [LANtus] 3 ML PEN SC SCH ×2 (07:58→22:04)
[2016-09-21] MEDS: SALMETEROL/FLUTICASONE 250/50 INHA INH SCH ×2 (08:02→21:59)
[2016-09-21] MEDS: predniSONE 5 MG TAB PO SCH (08:08)
[2016-09-21] MEDS: LINAGLIPTIN 5 MG TABLET PO SCH (08:08)
[2016-09-21] MEDS: FOLIC ACID 1 MG TAB PO SCH ×2 (08:08→21:59)
[2016-09-21] MEDS: HEPARIN 5,000 UNIT/0.5 ML VIAL SC SCH ×2 (08:10→22:05)
[2016-09-21] MEDS: FAMOTIDINE 20 MG INJ IV SCH (08:11)
[2016-09-21] MEDS: METOPROLOL 25 MG TAB PO SCH ×2 (08:17→21:00)
--- NOTE | 2016-09-21 08:43 | CONS ---
Date/Time of Note Date/Time of Note DATE: 09/21/16 TIME: 08:41 Assessment/Plan Assessment/Plan Additional Assessment/Plan 1. S/P cx nec fracture, stable 2. CKD, to be HD today 3. Labs reviewed Consultation Date/Type/Reason Admit Date/Time September 07, 2016 at 16:36 Initial Consult Date 09/08/16 Type of Consultation: cardiology Referring Provider: TOMER GARCIA MD Detailed Summary Respiratory: No shortness of breath Cardiovascular: No chest pain Gastrointestinal: no complaints Genitourinary: no complaints Neurologic: other (legs were weak when trying to walk) Exam/Review of Systems Vital Signs Vitals Vital Signs Date Time Temp Pulse Resp B/P Pulse Ox O2 Delivery O2 Flow Rate FiO2 09/21/16 07:51 98.2 78 16 141/75 100 09/20/16 20:00 Nasal Cannula 2.0 Intake and Output 09/20/16 09/20/16 09/21/16 15:00 23:00 07:00 Intake Total 590 ml 120 ml Balance 590 ml 120 ml Exam Neck: other (collar in place) Respiratory: clear to auscultation Cardiovascular: regular rate and rhythm Gastrointestinal: soft Extremities: No edema (adn no calf tend) 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: other (hip flexion and plantar foot extension and flexion were strong) Results Result Diagram: 09/19/16 0550 09/19/16 0550 Results 24 hrs Laboratory Tests Test 09/20/16 11:50 09/20/16 17:39 09/20/16 23:46 09/21/16 05:45 Bedside Glucose 118 101 104 Random Vancomycin Level 16.6 Test 09/21/16 07:49 Bedside Glucose 81 Medications Medications Current Medications Acetaminophen/ Hydrocodone Bitart ([place] (5/325)) 1 tab Q6H PRN PO MODERATE PAIN LEVEL 4-6 Last administered on 09/21/16 07:57; Admin Dose 1 TAB; Start at 17:30 Acetaminophen/ Hydrocodone Bitart ([place] (5/325)) 2 tab Q6H PRN PO SEVERE PAIN LEVEL 7-10 Last administered on 09/16/16 10:08; Admin Dose 2 TAB; Start at 17:30 Docusate Sodium (Colace) 100 mg Q12H PRN PO CONSTIPATION Last administered on 09:42; Admin Dose 100 MG; Start 09/07/16 at 17:30 Sodium Biphosphate/ Sodium Phosphate (Fleet Enema) 133 ml DAILY PRN [place] CONSTIPATION; Start 09/07/16 at 17:30 Famotidine (Pepcid Iv) 20 mg DAILY IV Last administered on 09/21/16 08:11; Admin Dose 20 MG; Start 09/08/16 at 09:00 Heparin Sodium (Porcine) (Heparin (5000 Units/0.5 ml)) 5,000 unit Q12 SC Last administered on 09/21/16 08:10; Admin Dose 5,000 UNIT; Start 09/07/16 at 21:00 Folic Acid (Folic Acid) 1 mg BID PO Last administered on 09/21/16 08:08; Admin Dose 1 MG; Start 09/07/16 at 21:00 Metoprolol Tartrate (Lopressor) 12.5 mg BID PO Last administered on 09/20/16 08 :53; Admin Dose 12.5 MG; Start 09/07/16 at 23:00 Fenofibrate (Tricor) 48 mg QAM PO Last administered on 09/20/16 11:45; Admin Dose 48 MG; Start 09/08/16 at 09:00 Linagliptin (Tradjenta) 5 mg DAILY PO Last administered on 09/21/16 08:08; Admin Dose 5 MG; Start 09/07/16 at 18:00 Salmeterol Xinafoate/ Fluticasone (Advair 250/50 Diskus) 1 inh BID INH Last administered on 09/21/16 08:02; Admin Dose 1 INH; Start 09/07/16 at 23:00 Atorvastatin Calcium (Lipitor) 40 mg QHS PO Last administered on 09/20/16 21:02 ; Admin Dose 40 MG; Start 09/07/16 at 21:00 Gabapentin (Neurontin) 900 mg QHS PO Last administered on 09/20/16 21:02; Admin Dose 900 MG; Start 09/07/16 at 21:00 Miscellaneous Information 1 ea NOTE XX ; Start 09/07/16 at 18:00 Glucose (Glutose) 15 gm Q15M PRN PO DECREASED GLUCOSE; Start 09/07/16 at 18:00 Glucose (Glutose) 22.5 gm Q15M PRN PO DECREASED GLUCOSE; Start 09/07/16 at 18: 00 Dextrose (D50w Syringe) 25 ml Q15M PRN IV DECREASED GLUCOSE; Start 09/07/16 at 18:00 Dextrose (D50w Syringe) 50 ml Q15M PRN IV DECREASED GLUCOSE; Start 09/07/16 at 18:00 Glucagon (Glucagen) 1 mg Q15M PRN IM DECREASED GLUCOSE; Start 09/07/16 at 18:00 Glucose (Glutose) 15 gm Q15M PRN BUCCAL DECREASED GLUCOSE; Start 09/07/16 at 18 :00 Naloxone HCl (Narcan) 0.2 mg Q2M PRN IV DECREASED REPIRATORY RATE Last administered on 09/08/16 02:44; Admin Dose 0.2 MG; Start 09/08/16 at 02:30 Tramadol HCl (Ultram) 50 mg Q8H PRN PO PAIN Last administered on 09/16/16 12:51 ; Admin Dose 50 MG; Start 09/08/16 at 16:00 Hydromorphone HCl (Dilaudid) 0.5 mg Q2H PRN IV PAIN Last administered on 01:36; Admin Dose 0.5 MG; Start 09/09/16 at 08:30 Gabapentin (Neurontin) 300 mg 09,16 PO Last administered on 09/20/16 16:15; Admin Dose 300 MG; Start 09/15/16 at 09:00 Prednisone (Prednisone) 5 mg DAILY PO Last administered on 09/21/16 08:08; Admin Dose 5 MG; Start 09/15/16 at 09:00 Prednisone (Prednisone) 1 mg QHS PO Last administered on 09/20/16 23:44; Admin Dose 1 MG; Start 09/14/16 at 21:00 Insulin Glargine (Lantus) 3 unit BID@08,20 SC Last administered on 09/21/16 07: 58; Admin Dose 3 UNIT; Start 09/15/16 at 20:00 Eye Lubricant (Artificial Tears Oph) 2 drop Q2H PRN BOTH EYES DRY EYES Last administered on 09/18/16 17:40; Admin Dose 2 DROP; Start 09/18/16 at 15:00 Diagnostic Test (Pha) (Accu-Chek) 1 ea 02 XX ; Start 09/20/16 at 02:00 Epoetin César (Epogen (Esrd)) 10,000 units MoWeFr@17 PA ; Start 09/21/16 at 17:00 ARISTIDES WATKINS MD Sep 21, 2016 08:43
[2016-09-21] MEDS: GABAPENTIN 300 MG CAP PO SCH ×3 (09:14→21:58)
[2016-09-21] MEDS: FENOFIBRATE 48 MG TAB PO SCH (09:14)
--- NOTE | 2016-09-21 11:39 | CONS ---
Date/Time of Note Date/Time of Note DATE: 09/21/16 TIME: 11:38 Consult Date/Type/Reason Admit Date/Time September 07, 2016 at 16:36 Initial Consult Date 09/08/16 Type of Consultation: Pulmonary Ordering Provider: TOMER GARCIA MD Subjective Patient stable no new events Objective Vital Signs Date Time Temp Pulse Resp B/P Pulse Ox O2 Delivery O2 Flow Rate FiO2 09/21/16 11:23 98.0 76 18 138/61 99 09/20/16 20:00 Nasal Cannula 2.0 Intake and Output 09/20/16 09/20/16 09/21/16 14:59 22:59 06:59 Intake Total 590 ml 120 ml Balance 590 ml 120 ml Exam GENERAL: Elderly lady comfortable in bed with c-collar VITAL SIGNS: per chart NECK: Supple. No JVD or lymphadenopathy. CARDIAC EXAM: S1, S2. No added sounds or murmurs. CHEST: diminished air entry both lung bases ABDOMEN: Soft, nontender. No guarding or rebound. EXTREMITIES: No cyanosis, clubbing or edema. NEUROLOGIC: Generalized weakness. Results/Medications Result Diagram: 09/19/16 0550 09/19/16 0550 Results 24 hrs Laboratory Tests Test 09/20/16 11:50 09/20/16 17:39 09/20/16 23:46 09/21/16 05:45 Bedside Glucose 118 101 104 Random Vancomycin Level 16.6 Test 09/21/16 07:49 Bedside Glucose 81 Medications Current Medications Acetaminophen/ Hydrocodone Bitart ([place] (5/325)) 1 tab Q6H PRN PO MODERATE PAIN LEVEL 4-6 Last administered on 09/21/16 07:57; Admin Dose 1 TAB; Start at 17:30 Acetaminophen/ Hydrocodone Bitart ([place] (5/325)) 2 tab Q6H PRN PO SEVERE PAIN LEVEL 7-10 Last administered on 09/16/16 10:08; Admin Dose 2 TAB; Start at 17:30 Docusate Sodium (Colace) 100 mg Q12H PRN PO CONSTIPATION Last administered on 09:42; Admin Dose 100 MG; Start 09/07/16 at 17:30 Sodium Biphosphate/ Sodium Phosphate (Fleet Enema) 133 ml DAILY PRN [place] CONSTIPATION; Start 09/07/16 at 17:30 Famotidine (Pepcid Iv) 20 mg DAILY IV Last administered on 09/21/16 08:11; Admin Dose 20 MG; Start 09/08/16 at 09:00 Heparin Sodium (Porcine) (Heparin (5000 Units/0.5 ml)) 5,000 unit Q12 SC Last administered on 09/21/16 08:10; Admin Dose 5,000 UNIT; Start 09/07/16 at 21:00 Folic Acid (Folic Acid) 1 mg BID PO Last administered on 09/21/16 08:08; Admin Dose 1 MG; Start 09/07/16 at 21:00 Metoprolol Tartrate (Lopressor) 12.5 mg BID PO Last administered on 09/20/16 08 :53; Admin Dose 12.5 MG; Start 09/07/16 at 23:00 Fenofibrate (Tricor) 48 mg QAM PO Last administered on 09/21/16 09:14; Admin Dose 48 MG; Start 09/08/16 at 09:00 Linagliptin (Tradjenta) 5 mg DAILY PO Last administered on 09/21/16 08:08; Admin Dose 5 MG; Start 09/07/16 at 18:00 Salmeterol Xinafoate/ Fluticasone (Advair 250/50 Diskus) 1 inh BID INH Last administered on 09/21/16 08:02; Admin Dose 1 INH; Start 09/07/16 at 23:00 Atorvastatin Calcium (Lipitor) 40 mg QHS PO Last administered on 09/20/16 21:02 ; Admin Dose 40 MG; Start 09/07/16 at 21:00 Gabapentin (Neurontin) 900 mg QHS PO Last administered on 09/20/16 21:02; Admin Dose 900 MG; Start 09/07/16 at 21:00 Miscellaneous Information 1 ea NOTE XX ; Start 09/07/16 at 18:00 Glucose (Glutose) 15 gm Q15M PRN PO DECREASED GLUCOSE; Start 09/07/16 at 18:00 Glucose (Glutose) 22.5 gm Q15M PRN PO DECREASED GLUCOSE; Start 09/07/16 at 18: 00 Dextrose (D50w Syringe) 25 ml Q15M PRN IV DECREASED GLUCOSE; Start 09/07/16 at 18:00 Dextrose (D50w Syringe) 50 ml Q15M PRN IV DECREASED GLUCOSE; Start 09/07/16 at 18:00 Glucagon (Glucagen) 1 mg Q15M PRN IM DECREASED GLUCOSE; Start 09/07/16 at 18:00 Glucose (Glutose) 15 gm Q15M PRN BUCCAL DECREASED GLUCOSE; Start 09/07/16 at 18 :00 Naloxone HCl (Narcan) 0.2 mg Q2M PRN IV DECREASED REPIRATORY RATE Last administered on 09/08/16 02:44; Admin Dose 0.2 MG; Start 09/08/16 at 02:30 Tramadol HCl (Ultram) 50 mg Q8H PRN PO PAIN Last administered on 09/16/16 12:51 ; Admin Dose 50 MG; Start 09/08/16 at 16:00 Hydromorphone HCl (Dilaudid) 0.5 mg Q2H PRN IV PAIN Last administered on 01:36; Admin Dose 0.5 MG; Start 09/09/16 at 08:30 Gabapentin (Neurontin) 300 mg 16 PO Last administered on 09/21/16 09:14; Admin Dose 300 MG; Start 09/15/16 at 09:00 Prednisone (Prednisone) 5 mg DAILY PO Last administered on 09/21/16 08:08; Admin Dose 5 MG; Start 09/15/16 at 09:00 Prednisone (Prednisone) 1 mg QHS PO Last administered on 09/20/16 23:44; Admin Dose 1 MG; Start 09/14/16 at 21:00 Insulin Glargine (Lantus) 3 unit BID@08,20 SC Last administered on 09/21/16 07: 58; Admin Dose 3 UNIT; Start 09/15/16 at 20:00 Eye Lubricant (Artificial Tears Oph) 2 drop Q2H PRN BOTH EYES DRY EYES Last administered on 09/18/16 17:40; Admin Dose 2 DROP; Start 09/18/16 at 15:00 Diagnostic Test (Pha) (Accu-Chek) 1 ea 02 XX ; Start 09/20/16 at 02:00 Epoetin César (Epogen (Esrd)) 10,000 units MoWeFr@17 SC ; Start 09/21/16 at 17:00 Assessment/Plan Chief Complaint/Hosp Course IMP: 1. Acute on chronic hypercapnic respiratory failure: multifactorial in etiology. Possible underlying OSH or COPD. Doubt significant [id number] diaphragmatic weakness 2. C-spine injury-- 3. s/p TAVR. 4. End-stage renal disease, on hemodialysis. 5. Pulmonary sarcoidosis, patient on long-term prednisone use. 6. History of hypertension. 7. Afib with RVR 8. Coronary artery disease. Status post PTCA in the past. History of CHF RECS: 1. Continue low-dose steroids 2. Continue hemodialysis 3. Orthopedic recommendations continue C-spine collar 4. Aspiration precautions 5. DVT and GI prophylaxis Disposition Continue current care consider transfer to [facility]. Problems: DEBRA HERNÁNDEZ MD, [facility] Sep 21, 2016 11:39
[2016-09-21] MEDS: EPOETIN 10000 UNITS/1 ML INJ (ESRD) SC SCH (17:34)
[2016-09-21] MEDS: predniSONE 2.5 MG TAB PO SCH (17:38)
--- NOTE | 2016-09-21 17:44 | CONS ---
Date/Time of Note Date/Time of Note DATE: 09/21/16 TIME: 17:41 Assessment/Plan Assessment/Plan Chief Complaint/Hosp Course Impression: # Atrial Fibrillation- non valvular, now rate controlled. anticoag with Coumadin at baseline now off give c2 fxr, fall # s/p TAVR- stable # s/p fall with C2 cervical fracture # COPD - stable. # ESRD on iHD # HTN- tolerating metoprolol, bp stable Recommendations: - resume home dose metop 25mg po bid given stable bp - now off amiodarone as bp stable - off anticoag given c2 fxr and fall - valve functioning well - fluid mgmt with iHD per renal - will follow Problems: Consultation Date/Type/Reason Admit Date/Time September 07, 2016 at 16:36 Type of Consultation: cardiology Referring Provider: TOMER GARCIA MD 24 HR Interval Summary Free Text/Dictation no acute events. pt states back on o2, but does not feel sob. no cp/ palpitations. no dizziness tele reviewed: afib, rate controll 80s Detailed Summary ENT: no complaints Respiratory: no complaints Cardiovascular: no complaints Gastrointestinal: no complaints Exam/Review of Systems Vital Signs Vitals Vital Signs Date Time Temp Pulse Resp B/P Pulse Ox O2 Delivery O2 Flow Rate FiO2 09/21/16 17:08 81 09/21/16 16:22 97.5 18 121/56 100 09/21/16 10:30 2.0 09/21/16 10:30 21 09/21/16 08:00 Nasal Cannula Intake and Output 09/20/16 09/20/16 09/21/16 15:00 23:00 07:00 Intake Total 590 ml 120 ml Balance 590 ml 120 ml Exam Constitutional: alert, oriented Neck: other (in ccollar) Respiratory: clear to auscultation Cardiovascular: edema, other (irregualrly irregular, nl s1s2, rate controlled ii/vi vsem) Gastrointestinal: non-tender, soft Musculoskeletal: nl extremities to inspection Extremities: normal pulses, other (tender to palpation) 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: RESTAURANT HOST/HOSTESS II-XII intact Results Result Diagram: 09/19/16 0550 09/19/16 0550 Results 24 hrs Laboratory Tests Test 09/20/16 23:46 09/21/16 05:45 09/21/16 07:49 09/21/16 12:20 Bedside Glucose 104 81 174 Random Vancomycin Level 16.6 Medications Medications Current Medications Acetaminophen/ Hydrocodone Bitart ([place] (5/325)) 1 tab Q6H PRN PO MODERATE PAIN LEVEL 4-6 Last administered on 09/21/16 07:57; Admin Dose 1 TAB; Start at 17:30 Acetaminophen/ Hydrocodone Bitart ([place] (5/325)) 2 tab Q6H PRN PO SEVERE PAIN LEVEL 7-10 Last administered on 09/16/16 10:08; Admin Dose 2 TAB; Start at 17:30 Docusate Sodium (Colace) 100 mg Q12H PRN PO CONSTIPATION Last administered on 09:42; Admin Dose 100 MG; Start 09/07/16 at 17:30 Sodium Biphosphate/ Sodium Phosphate (Fleet Enema) 133 ml DAILY PRN [place] CONSTIPATION; Start 09/07/16 at 17:30 Famotidine (Pepcid Iv) 20 mg DAILY IV Last administered on 09/21/16 08:11; Admin Dose 20 MG; Start 09/08/16 at 09:00 Heparin Sodium (Porcine) (Heparin (5000 Units/0.5 ml)) 5,000 unit Q12 SC Last administered on 09/21/16 08:10; Admin Dose 5,000 UNIT; Start 09/07/16 at 21:00 Folic Acid (Folic Acid) 1 mg BID PO Last administered on 09/21/16 08:08; Admin Dose 1 MG; Start 09/07/16 at 21:00 Metoprolol Tartrate (Lopressor) 12.5 mg BID PO Last administered on 09/20/16 08 :53; Admin Dose 12.5 MG; Start 09/07/16 at 23:00 Fenofibrate (Tricor) 48 mg QAM PO Last administered on 09/21/16 09:14; Admin Dose 48 MG; Start 09/08/16 at 09:00 Linagliptin (Tradjenta) 5 mg DAILY PO Last administered on 09/21/16 08:08; Admin Dose 5 MG; Start 09/07/16 at 18:00 Salmeterol Xinafoate/ Fluticasone (Advair 250/50 Diskus) 1 inh BID INH Last administered on 09/21/16 08:02; Admin Dose 1 INH; Start 09/07/16 at 23:00 Atorvastatin Calcium (Lipitor) 40 mg QHS PO Last administered on 09/20/16 21:02 ; Admin Dose 40 MG; Start 09/07/16 at 21:00 Gabapentin (Neurontin) 900 mg QHS PO Last administered on 09/20/16 21:02; Admin Dose 900 MG; Start 09/07/16 at 21:00 Miscellaneous Information 1 ea NOTE XX ; Start 09/07/16 at 18:00 Glucose (Glutose) 15 gm Q15M PRN PO DECREASED GLUCOSE; Start 09/07/16 at 18:00 Glucose (Glutose) 22.5 gm Q15M PRN PO DECREASED GLUCOSE; Start 09/07/16 at 18: 00 Dextrose (D50w Syringe) 25 ml Q15M PRN IV DECREASED GLUCOSE; Start 09/07/16 at 18:00 Dextrose (D50w Syringe) 50 ml Q15M PRN IV DECREASED GLUCOSE; Start 09/07/16 at 18:00 Glucagon (Glucagen) 1 mg Q15M PRN IM DECREASED GLUCOSE; Start 09/07/16 at 18:00 Glucose (Glutose) 15 gm Q15M PRN BUCCAL DECREASED GLUCOSE; Start 09/07/16 at 18 :00 Naloxone HCl (Narcan) 0.2 mg Q2M PRN IV DECREASED REPIRATORY RATE Last administered on 09/08/16 02:44; Admin Dose 0.2 MG; Start 09/08/16 at 02:30 Tramadol HCl (Ultram) 50 mg Q8H PRN PO PAIN Last administered on 09/16/16 12:51 ; Admin Dose 50 MG; Start 09/08/16 at 16:00 Hydromorphone HCl (Dilaudid) 0.5 mg Q2H PRN IV PAIN Last administered on 01:36; Admin Dose 0.5 MG; Start 09/09/16 at 08:30 Gabapentin (Neurontin) 300 mg ,16 PO Last administered on 09/21/16 09:14; Admin Dose 300 MG; Start 09/15/16 at 09:00 Prednisone (Prednisone) 5 mg DAILY PO Last administered on 09/21/16 08:08; Admin Dose 5 MG; Start 09/15/16 at 09:00 Prednisone (Prednisone) 1 mg QHS PO Last administered on 09/20/16 23:44; Admin Dose 1 MG; Start 09/14/16 at 21:00 Insulin Glargine (Lantus) 3 unit BID@08,20 SC Last administered on 09/21/16 07: 58; Admin Dose 3 UNIT; Start 09/15/16 at 20:00 Eye Lubricant (Artificial Tears Oph) 2 drop Q2H PRN BOTH EYES DRY EYES Last administered on 09/18/16 17:40; Admin Dose 2 DROP; Start 09/18/16 at 15:00 Diagnostic Test (Pha) (Accu-Chek) 1 02 XX ; Start 09/20/16 at 02:00 Epoetin César 96147 units 10,000 units MoWeFr@17 SC ; Start 09/21/16 at 17:00 Vancomycin HCl (Vancocin) 250 ml @ 125 mls/hr ONCE ONCE IVPB ; Start 09/21/16 at 18:00; Stop 09/21/16 at 19:59 EVELYN RANKIN Sep 21, 2016 17:44
[2016-09-21] MEDS ORDERED: VANCOMYCIN 1 GM in NS 250 ML IVPB ONE (18:00)
--- NOTE | 2016-09-21 18:31 | PN ---
Date/Time of Note Date/Time of Note DATE: 09/21/16 TIME: 18:27 Assessment/Plan VTE Prophylaxis VTE Prophylaxis Intervention: other Lines/Catheters IV Catheter Type (from Nrs): PICC Line Central line still needed: Yes Urinary Cath still in place: No Assessment/Plan Problems: (1) C2 cervical fracture Status: Acute Comment: Seems to be xcoming along. Need the input of PT and NS for discharge planning Qualifiers: Encounter type: initial encounter Fracture type: closed Fracture morphology: other dens Fracture alignment: displaced Qualified Code: S12.120A - Other closed displaced odontoid fracture, initial encounter (2) Atrial fibrillation Status: Chronic Comment: Stable, resume anticoagulation in 2 weeks Qualifiers: Atrial fibrillation type: chronic Qualified Code: I48.2 - Chronic atrial fibrillation (3) Positive blood culture Status: Acute Comment: Contaminat due to technique (4) COPD (chronic obstructive pulmonary disease) Status: Chronic Comment: well compensated Qualifiers: COPD type: emphysema Emphysema type: panlobular Qualified Code: J43.1 - Panlobular emphysema (5) Sarcoidosis Status: Chronic Comment: on treatment and stable/inactive (6) ESRD (end stage renal disease) on dialysis Status: Chronic Comment: remains on HD (7) Diabetes mellitus type 2 in obese Status: Chronic Comment: well controlled (8) Hypertension associated with chronic kidney disease due to type 2 diabetes mellitus Status: Chronic Comment: stable even with Beta Blockers (9) Obstructive sleep apnea Status: Chronic Comment: Refuses BiPAP Subjective 24 Hr Interval Summary Constitutional: no complaints Respiratory: no complaints Cardiovascular: no complaints Gastrointestinal: no complaints Genitourinary: no complaints Musculoskeletal: other (neck pain) Neurologic: other (lower extremity weakness) Exam/Review of Systems Vital Signs Vitals Vital Signs Date Time Temp Pulse Resp B/P Pulse Ox O2 Delivery O2 Flow Rate FiO2 09/21/16 17:08 81 09/21/16 16:22 97.5 18 121/56 100 09/21/16 10:30 2.0 09/21/16 10:30 21 09/21/16 08:00 Nasal Cannula Intake and Output 09/20/16 09/20/16 09/21/16 15:00 23:00 07:00 Intake Total 590 ml 120 ml Balance 590 ml 120 ml Exam Constitutional: alert Respiratory: clear to auscultation, normal air movement Cardiovascular: nl pulses, regular rate and rhythm Gastrointestinal: nl liver, spleen, non-tender, soft Results Result Diagram: 09/19/16 0550 09/19/16 0550 Results 24 hrs Laboratory Tests Test 09/20/16 23:46 09/21/16 05:45 09/21/16 07:49 09/21/16 12:20 Bedside Glucose 104 81 174 Random Vancomycin Level 16.6 Test 09/21/16 17:24 Bedside Glucose 129 Medications Medications Current Medications Acetaminophen/ Hydrocodone Bitart ([place] (5/325)) 1 tab Q6H PRN PO MODERATE PAIN LEVEL 4-6 Last administered on 09/21/16 07:57; Admin Dose 1 TAB; Start at 17:30 Acetaminophen/ Hydrocodone Bitart ([place] (5/325)) 2 tab Q6H PRN PO SEVERE PAIN LEVEL 7-10 Last administered on 09/16/16 10:08; Admin Dose 2 TAB; Start at 17:30 Docusate Sodium (Colace) 100 mg Q12H PRN PO CONSTIPATION Last administered on 09:42; Admin Dose 100 MG; Start 09/07/16 at 17:30 Sodium Biphosphate/ Sodium Phosphate (Fleet Enema) 133 ml DAILY PRN [place] CONSTIPATION; Start 09/07/16 at 17:30 Famotidine (Pepcid Iv) 20 mg DAILY IV Last administered on 09/21/16 08:11; Admin Dose 20 MG; Start 09/08/16 at 09:00 Heparin Sodium (Porcine) (Heparin (5000 Units/0.5 ml)) 5,000 unit Q12 SC Last administered on 09/21/16 08:10; Admin Dose 5,000 UNIT; Start 09/07/16 at 21:00 Folic Acid (Folic Acid) 1 mg BID PO Last administered on 09/21/16 08:08; Admin Dose 1 MG; Start 09/07/16 at 21:00 Fenofibrate (Tricor) 48 mg QAM PO Last administered on 09/21/16 09:14; Admin Dose 48 MG; Start 09/08/16 at 09:00 Linagliptin (Tradjenta) 5 mg DAILY PO Last administered on 09/21/16 08:08; Admin Dose 5 MG; Start 09/07/16 at 18:00 Salmeterol Xinafoate/ Fluticasone (Advair 250/50 Diskus) 1 inh BID INH Last administered on 09/21/16 08:02; Admin Dose 1 INH; Start 09/07/16 at 23:00 Atorvastatin Calcium (Lipitor) 40 mg QHS PO Last administered on 09/20/16 21:02 ; Admin Dose 40 MG; Start 09/07/16 at 21:00 Gabapentin (Neurontin) 900 mg QHS PO Last administered on 09/20/16 21:02; Admin Dose 900 MG; Start 09/07/16 at 21:00 Miscellaneous Information 1 ea NOTE XX ; Start 09/07/16 at 18:00 Glucose (Glutose) 15 gm Q15M PRN PO DECREASED GLUCOSE; Start 09/07/16 at 18:00 Glucose (Glutose) 22.5 gm Q15M PRN PO DECREASED GLUCOSE; Start 09/07/16 at 18: 00 Dextrose (D50w Syringe) 25 ml Q15M PRN IV DECREASED GLUCOSE; Start 09/07/16 at 18:00 Dextrose (D50w Syringe) 50 ml Q15M PRN IV DECREASED GLUCOSE; Start 09/07/16 at 18:00 Glucagon (Glucagen) 1 mg Q15M PRN IM DECREASED GLUCOSE; Start 09/07/16 at 18:00 Glucose (Glutose) 15 gm Q15M PRN BUCCAL DECREASED GLUCOSE; Start 09/07/16 at 18 :00 Naloxone HCl (Narcan) 0.2 mg Q2M PRN IV DECREASED REPIRATORY RATE Last administered on 09/08/16 02:44; Admin Dose 0.2 MG; Start 09/08/16 at 02:30 Tramadol HCl (Ultram) 50 mg Q8H PRN PO PAIN Last administered on 09/16/16 12:51 ; Admin Dose 50 MG; Start 09/08/16 at 16:00 Hydromorphone HCl (Dilaudid) 0.5 mg Q2H PRN IV PAIN Last administered on 01:36; Admin Dose 0.5 MG; Start 09/09/16 at 08:30 Gabapentin (Neurontin) 300 mg ,16 PO Last administered on 09/21/16 17:31; Admin Dose 300 MG; Start 09/15/16 at 09:00 Prednisone (Prednisone) 5 mg DAILY PO Last administered on 09/21/16 08:08; Admin Dose 5 MG; Start 09/15/16 at 09:00 Prednisone (Prednisone) 1 mg QHS PO Last administered on 09/20/16 23:44; Admin Dose 1 MG; Start 09/14/16 at 21:00 Insulin Glargine (Lantus) 3 unit BID@08,20 SC Last administered on 09/21/16 07: 58; Admin Dose 3 UNIT; Start 09/15/16 at 20:00 Eye Lubricant (Artificial Tears Oph) 2 drop Q2H PRN BOTH EYES DRY EYES Last administered on 09/18/16 17:40; Admin Dose 2 DROP; Start 09/18/16 at 15:00 Diagnostic Test (Pha) (Accu-Chek) 1 ea 02 XX ; Start 09/20/16 at 02:00 Epoetin César [id number] units 10,000 units MoWeFr@17 SC Last administered on 17:34; Admin Dose 10,000 UNITS; Start 09/21/16 at 17:00 Vancomycin HCl (Vancocin) 250 ml @ 125 mls/hr ONCE ONCE IVPB Last administered on 09/21/16 17:39; Admin Dose 125 MLS/HR; Start 09/21/16 at 18:00; Stop 09/21/16 at 19:59 Metoprolol Tartrate (Lopressor) 25 mg BID PO ; Start 09/21/16 at 21:00 TOMER GARCIA MD Sep 21, 2016 18:30
[2016-09-21] MEDS: predniSONE 1 MG TAB PO SCH (21:58)
[2016-09-21] MEDS: ATORVASTATIN 40 MG TAB PO SCH (21:59)
[2016-09-22] VITALS (12 sets, daily range): BP systolic 96–140; BP diastolic 50–59; PULSE 70–96; RESP 16–20
[2016-09-22] MEDS: SEVELAMER CARBONATE 0.8 GM PKT PO SCH ×3 (06:21→17:36)
[2016-09-22 07:03] LABS: ADD SCAN DIFF NO
[2016-09-22 07:06] LABS: BASOPHIL # 0.1 10^3/ul (0.0-0.1); BASOPHILS % 0.9 % (0.0-2.0); EOSINOPHILS # 0.1 10^3/ul (0.0-0.5); EOSINOPHILS % 1.7 % (0.0-7.0); HEMATOCRIT 27.6 % (37.0-47.0); HEMOGLOBIN 8.8 g/dl (12.0-16.0); LYMPHOCYTES # 1.1 10^3/ul (0.8-2.9); LYMPHOCYTES % 18.8 % (15.0-51.0); MEAN CORPUSCULAR HEMOGLOBIN 29.9 pg (29.0-33.0); MEAN CORPUSCULAR HGB CONC 31.9 g/dl (32.0-37.0); MEAN CORPUSCULAR VOLUME 93.9 fl (82.0-101.0); MEAN PLATELET VOLUME 10.8 fl (7.4-10.4); MONOCYTE # 0.6 10^3/ul (0.3-0.9); MONOCYTES % 9.8 % (0.0-11.0); NEUTROPHILS % 68.1 % (39.0-77.0); PLATELET COUNT 240 10^3/UL (140-415); RED BLOOD COUNT 2.94 10^6/ul (4.20-5.40); WHITE BLOOD COUNT 5.8 10^3/ul (4.8-10.8)
[2016-09-22 07:42] LABS: CREATININE 6.08 mg/dl (0.44-1.00); POTASSIUM 3.9 mmol/L (3.5-5.1)
[2016-09-22] MEDS: INSULIN ASPART [NOVOLOG] 3 ML PEN SC SCH ×4 (07:54→21:00)
[2016-09-22] MEDS: INSULIN GLARGINE [LANtus] 3 ML PEN SC SCH ×2 (07:57→20:07)
--- NOTE | 2016-09-22 08:31 | CONS ---
Date/Time of Note Date/Time of Note DATE: 09/22/16 TIME: 08:26 Assessment/Plan Assessment/Plan Problems: (1) Atrial fibrillation Status: Chronic Comment: controlled... still off anticoag Qualifiers: Atrial fibrillation type: chronic Qualified Code: I48.2 - Chronic atrial fibrillation (2) C2 cervical fracture Status: Acute Comment: neuro stable... in hard collar... anxious to get moving w PT Qualifiers: Encounter type: initial encounter Fracture type: closed Fracture morphology: other dens Fracture alignment: displaced Qualified Code: S12.120A - Other closed displaced odontoid fracture, initial encounter (3) ESRD (end stage renal disease) on dialysis Status: Chronic Comment: will do tomorrow Consultation Date/Type/Reason Admit Date/Time September 07, 2016 at 16:36 Initial Consult Date 09/08/16 Type of Consultation: neph Referring Provider: TOMER GARCIA MD 24 HR Interval Summary Free Text/Dictation in good spirits... wants to get up w PT Exam/Review of Systems Vital Signs Vitals Vital Signs Date Time Temp Pulse Resp B/P Pulse Ox O2 Delivery O2 Flow Rate FiO2 09/22/16 07:46 97.9 95 20 112/52 100 09/21/16 20:11 2.0 09/21/16 20:00 Nasal Cannula 09/21/16 10:30 21 Intake and Output 09/21/16 09/21/16 09/22/16 15:00 23:00 07:00 Intake Total 500 ml 880 ml 60 ml Output Total 3500 ml Balance -3000 ml 880 ml 60 ml Exam Constitutional: alert, oriented Psych: nl mood/affect Neck: other (in hard collar) Cardiovascular: irregular rhythm (controlled AF) Extremities: normal pulses (no edema.... intact AVF) Results Result Diagram: 09/22/16 0613 09/22/16 0613 Results 24 hrs Laboratory Tests Test 09/21/16 12:20 09/21/16 17:24 09/21/16 22:02 09/22/16 06:13 Bedside Glucose 174 129 124 White Blood Count 5.8 Red Blood Count 2.94 L Hemoglobin 8.8 L Hematocrit 27.6 L Mean Corpuscular Volume 93.9 Mean Corpuscular Hemoglobin 29.9 Mean Corpuscular Hemoglobin Concent 31.9 L Red Cell Distribution Width 15.0 H Platelet Count 240 Mean Platelet Volume 10.8 H Neutrophils % 68.1 Lymphocytes % 18.8 Monocytes % 9.8 Eosinophils % 1.7 Basophils % 0.9 Nucleated Red Blood Cells % 0.0 Neutrophils # 4.0 Lymphocytes # 1.1 Monocytes # 0.6 Eosinophils # 0.1 Basophils # 0.1 Nucleated Red Blood Cells # 0.0 Sodium Level 145 H Potassium Level 3.9 Chloride Level 105 Carbon Dioxide Level 30 Anion Gap 14 Blood Urea Nitrogen 45 H Creatinine 6.08 H Glucose Level 85 Calcium Level 9.0 Phosphorus Level 6.0 H Test 09/22/16 07:53 Bedside Glucose 83 Medications Medications Current Medications Acetaminophen/ Hydrocodone Bitart ([place] (5/325)) 1 tab Q6H PRN PO MODERATE PAIN LEVEL 4-6 Last administered on 09/21/16 07:57; Admin Dose 1 TAB; Start at 17:30 Acetaminophen/ Hydrocodone Bitart ([place] (5/325)) 2 tab Q6H PRN PO SEVERE PAIN LEVEL 7-10 Last administered on 09/16/16 10:08; Admin Dose 2 TAB; Start at 17:30 Docusate Sodium (Colace) 100 mg Q12H PRN PO CONSTIPATION Last administered on 09:42; Admin Dose 100 MG; Start 09/07/16 at 17:30 Sodium Biphosphate/ Sodium Phosphate (Fleet Enema) 133 ml DAILY PRN [place] CONSTIPATION; Start 09/07/16 at 17:30 Famotidine (Pepcid Iv) 20 mg DAILY IV Last administered on 09/21/16 08:11; Admin Dose 20 MG; Start 09/08/16 at 09:00 Heparin Sodium (Porcine) (Heparin (5000 Units/0.5 ml)) 5,000 unit Q12 SC Last administered on 09/21/16 22:05; Admin Dose 5,000 UNIT; Start 09/07/16 at 21:00 Folic Acid (Folic Acid) 1 mg BID PO Last administered on 09/21/16 21:59; Admin Dose 1 MG; Start 09/07/16 at 21:00 Fenofibrate (Tricor) 48 mg QAM PO Last administered on 09/21/16 09:14; Admin Dose 48 MG; Start 09/08/16 at 09:00 Linagliptin (Tradjenta) 5 mg DAILY PO Last administered on 09/21/16 08:08; Admin Dose 5 MG; Start 09/07/16 at 18:00 Salmeterol Xinafoate/ Fluticasone (Advair 250/50 Diskus) 1 inh BID INH Last administered on 09/21/16 21:59; Admin Dose 1 INH; Start 09/07/16 at 23:00 Atorvastatin Calcium (Lipitor) 40 mg QHS PO Last administered on 09/21/16 21:59 ; Admin Dose 40 MG; Start 09/07/16 at 21:00 Gabapentin (Neurontin) 900 mg QHS PO Last administered on 09/21/16 21:58; Admin Dose 900 MG; Start 09/07/16 at 21:00 Miscellaneous Information 1 ea NOTE XX ; Start 09/07/16 at 18:00 Glucose (Glutose) 15 gm Q15M PRN PO DECREASED GLUCOSE; Start 09/07/16 at 18:00 Glucose (Glutose) 22.5 gm Q15M PRN PO DECREASED GLUCOSE; Start 09/07/16 at 18: 00 Dextrose (D50w Syringe) 25 ml Q15M PRN IV DECREASED GLUCOSE; Start 09/07/16 at 18:00 Dextrose (D50w Syringe) 50 ml Q15M PRN IV DECREASED GLUCOSE; Start 09/07/16 at 18:00 Glucagon (Glucagen) 1 mg Q15M PRN IM DECREASED GLUCOSE; Start 09/07/16 at 18:00 Glucose (Glutose) 15 gm Q15M PRN BUCCAL DECREASED GLUCOSE; Start 09/07/16 at 18 :00 Naloxone HCl (Narcan) 0.2 mg Q2M PRN IV DECREASED REPIRATORY RATE Last administered on 09/08/16 02:44; Admin Dose 0.2 MG; Start 09/08/16 at 02:30 Tramadol HCl (Ultram) 50 mg Q8H PRN PO PAIN Last administered on 09/16/16 12:51 ; Admin Dose 50 MG; Start 09/08/16 at 16:00 Hydromorphone HCl (Dilaudid) 0.5 mg Q2H PRN IV PAIN Last administered on 01:36; Admin Dose 0.5 MG; Start 5/26/17 at 08:30 Gabapentin (Neurontin) 300 mg 09,16 PO Last administered on 09/21/16 17:31; Admin Dose 300 MG; Start 09/15/16 at 09:00 Prednisone (Prednisone) 5 mg DAILY PO Last administered on 09/21/16 08:08; Admin Dose 5 MG; Start 09/15/16 at 09:00 Prednisone (Prednisone) 1 mg QHS PO Last administered on 09/21/16 21:58; Admin Dose 1 MG; Start 09/14/16 at 21:00 Insulin Glargine (Lantus) 3 unit BID@08,20 SC Last administered on 09/22/16 07: 57; Admin Dose 3 UNIT; Start 09/15/16 at 20:00 Eye Lubricant (Artificial Tears Oph) 2 drop Q2H PRN BOTH EYES DRY EYES Last administered on 09/18/16 17:40; Admin Dose 2 DROP; Start 09/18/16 at 15:00 Diagnostic Test (Pha) (Accu-Chek) 1 ea 02 XX ; Start 09/20/16 at 02:00 Epoetin César (Epogen (Esrd)) 10,000 units MoWeFr@17 SC Last administered on 09/21 17:34; Admin Dose 10,000 UNITS; Start 09/21/16 at 17:00 Metoprolol Tartrate (Lopressor) 25 mg BID PO ; Start 09/21/16 at 21:00 NICO HAY MD Sep 22, 2016 08:31
[2016-09-22] MEDS: METOPROLOL 25 MG TAB PO SCH ×2 (08:48→21:04)
[2016-09-22] MEDS: HEPARIN 5,000 UNIT/0.5 ML VIAL SC SCH ×2 (08:55→21:11)
[2016-09-22] MEDS: GABAPENTIN 300 MG CAP PO SCH ×3 (08:57→21:03)
[2016-09-22] MEDS: FOLIC ACID 1 MG TAB PO SCH ×2 (08:58→21:04)
[2016-09-22] MEDS: LINAGLIPTIN 5 MG TABLET PO SCH (08:59)
[2016-09-22] MEDS: FENOFIBRATE 48 MG TAB PO SCH (08:59)
[2016-09-22] MEDS: predniSONE 5 MG TAB PO SCH (08:59)
[2016-09-22] MEDS: FAMOTIDINE 20 MG INJ IV SCH (09:00)
[2016-09-22] MEDS: SALMETEROL/FLUTICASONE 250/50 INHA INH SCH ×2 (09:00→21:03)
--- NOTE | 2016-09-22 13:44 | PN ---
Date/Time of Note Date/Time of Note DATE: 09/22/16 TIME: 13:39 Assessment/Plan VTE Prophylaxis VTE Prophylaxis Intervention: other Lines/Catheters IV C[facility] Type [facility] PICC Line Central line still needed: Yes Urinary Cath still in place: No Assessment/Plan Problems: (1) Atrial fibrillation Status: Chronic Comment: Stable and rate controlled. Plan resume anticiag in 4 more weeks Qualifiers: Atrial fibrillation type: chronic Qualified Code: I48.2 - Chronic atrial fibrillation (2) C2 cervical fracture Status: Acute Comment: Continue with collar and plan for ECF rehab in next 5 days Qualifiers: Encounter type: initial encounter Fracture type: closed Fracture morphology: other dens Fracture alignment: displaced Qualified Code: S12.120A - Other closed displaced odontoid fracture, initial encounter (3) COPD (chronic obstructive pulmonary disease) Status: Chronic Comment: well controlled Qualifiers: COPD type: emphysema Emphysema type: panlobular Qualified Code: J43.1 - Panlobular emphysema (4) Sarcoidosis Status: Chronic Comment: noted (5) ESRD (end stage renal disease) on dialysis Status: Chronic Comment: continue with HD (6) Diabetes mellitus type 2 in obese Status: Chronic Comment: controlled with minimal intervention (7) Status post transcatheter aortic valve replacement (TAVR) using bioprosthesis Status: Acute Comment: noted and operational nominally (8) Hypertension associated with chronic kidney disease due to type 2 diabetes mellitus Status: Chronic Comment: controlled (9) Diastolic dysfunction Status: Chronic Comment: on BB (10) Hemorrhoid Status: Chronic Comment: noted Subjective 24 Hr Interval Summary Free Text/Dictation Patient was up in chair with Physical Therapy Constitutional: no complaints Respiratory: no complaints Cardiovascular: no complaints Gastrointestinal: no complaints Exam/Review of Systems Vital Signs Vitals Vital Signs Date Time Temp Pulse Resp B/P Pulse Ox O2 Delivery O2 Flow Rate FiO2 09/22/16 12:40 86 09/22/16 11:41 97.6 19 96/52 98 09/22/16 08:10 2.0 09/22/16 08:00 Nasal Cannula 09/21/16 10:30 21 Intake and Output 09/21/16 09/21/16 09/22/16 15:00 23:00 07:00 Intake Total 500 ml 880 ml 60 ml Output Total 3500 ml Balance -3000 ml 880 ml 60 ml Exam Constitutional: alert, oriented Respiratory: clear to auscultation, normal air movement Cardiovascular: nl pulses, regular rate and rhythm Gastrointestinal: nl liver, spleen, non-tender, soft Results Result Diagram: 09/22/16 0613 09/22/16 0613 Results 24 hrs Laboratory Tests Test 09/21/16 17:24 09/21/16 22:02 09/22/16 06:13 09/22/16 07:53 Bedside Glucose 129 124 83 White Blood Count 5.8 Red Blood Count 2.94 L Hemoglobin 8.8 L Hematocrit 27.6 L Mean Corpuscular Volume 93.9 Mean Corpuscular Hemoglobin 29.9 Mean Corpuscular Hemoglobin Concent 31.9 L Red Cell Distribution Width 15.0 H Platelet Count 240 Mean Platelet Volume 10.8 H Neutrophils % 68.1 Lymphocytes % 18.8 Monocytes % 9.8 Eosinophils % 1.7 Basophils % 0.9 Nucleated Red Blood Cells % 0.0 Neutrophils # 4.0 Lymphocytes # 1.1 Monocytes # 0.6 Eosinophils # 0.1 Basophils # 0.1 Nucleated Red Blood Cells # 0.0 Sodium Level 145 H Potassium Level 3.9 Chloride Level 105 Carbon Dioxide Level 30 Anion Gap 14 Blood Urea Nitrogen 45 H Creatinine 6.08 H Glucose Level 85 Calcium Level 9.0 Phosphorus Level 6.0 H Test 09/22/16 11:37 Bedside Glucose 88 Medications Medications Current Medications Acetaminophen/ Hydrocodone Bitart ([place] (5/325)) 1 tab Q6H PRN PO MODERATE PAIN LEVEL 4-6 Last administered on 09/21/16 07:57; Admin Dose 1 TAB; Start at 17:30 Acetaminophen/ Hydrocodone Bitart ([place] (5/325)) 2 tab Q6H PRN PO SEVERE PAIN LEVEL 7-10 Last administered on 09/16/16 10:08; Admin Dose 2 TAB; Start at 17:30 Docusate Sodium (Colace) 100 mg Q12H PRN PO CONSTIPATION Last administered on 09:42; Admin Dose 100 MG; Start 09/07/16 at 17:30 Sodium Biphosphate/ Sodium Phosphate (Fleet Enema) 133 ml DAILY PRN [place] CONSTIPATION; Start 09/07/16 at 17:30 Famotidine (Pepcid Iv) 20 mg DAILY IV Last administered on 09/22/16 09:00; Admin Dose 20 MG; Start 09/08/16 at 09:00 Heparin Sodium (Porcine) (Heparin (5000 Units/0.5 ml)) 5,000 unit Q12 SC Last administered on 09/22/16 08:55; Admin Dose 5,000 UNIT; Start 09/07/16 at 21:00 Folic Acid (Folic Acid) 1 mg BID PO Last administered on 09/22/16 08:58; Admin Dose 1 MG; Start 09/07/16 at 21:00 Fenofibrate (Tricor) 48 mg QAM PO Last administered on 09/22/16 08:59; Admin Dose 48 MG; Start 09/08/16 at 09:00 Linagliptin (Tradjenta) 5 mg DAILY PO Last administered on 09/22/16 08:59; Admin Dose 5 MG; Start 09/07/16 at 18:00 Salmeterol Xinafoate/ Fluticasone (Advair 250/50 Diskus) 1 inh BID INH Last administered on 09/22/16 09:00; Admin Dose 1 INH; Start 09/07/16 at 23:00 Atorvastatin Calcium (Lipitor) 40 mg QHS PO Last administered on 09/21/16 21:59 ; Admin Dose 40 MG; Start 09/07/16 at 21:00 Gabapentin (Neurontin) 900 mg QHS PO Last administered on 09/21/16 21:58; Admin Dose 900 MG; Start 09/07/16 at 21:00 Miscellaneous Information 1 ea NOTE XX ; Start 09/07/16 at 18:00 Glucose (Glutose) 15 gm Q15M PRN PO DECREASED GLUCOSE; Start 09/07/16 at 18:00 Glucose (Glutose) 22.5 gm Q15M PRN PO DECREASED GLUCOSE; Start 09/07/16 at 18: 00 Dextrose (D50w Syringe) 25 ml Q15M PRN IV DECREASED GLUCOSE; Start 09/07/16 at 18:00 Dextrose (D50w Syringe) 50 ml Q15M PRN IV DECREASED GLUCOSE; Start 09/07/16 at 18:00 Glucagon (Glucagen) 1 mg Q15M PRN IM DECREASED GLUCOSE; Start 09/07/16 at 18:00 Glucose (Glutose) 15 gm Q15M PRN BUCCAL DECREASED GLUCOSE; Start 09/07/16 at 18 :00 Naloxone HCl (Narcan) 0.2 mg Q2M PRN IV DECREASED REPIRATORY RATE Last administered on 09/08/16 02:44; Admin Dose 0.2 MG; Start 09/08/16 at 02:30 Tramadol HCl (Ultram) 50 mg Q8H PRN PO PAIN Last administered on 09/16/16 12:51 ; Admin Dose 50 MG; Start 09/08/16 at 16:00 Hydromorphone HCl (Dilaudid) 0.5 mg Q2H PRN IV PAIN Last administered on 01:36; Admin Dose 0.5 MG; Start 09/09/16 at 08:30 Gabapentin (Neurontin) 300 mg PO Last administered on 09/22/16 08:57; Admin Dose 300 MG; Start 09/15/16 at 09:00 Prednisone (Prednisone) 5 mg DAILY PO Last administered on 09/22/16 08:59; Admin Dose 5 MG; Start 09/15/16 at 09:00 Prednisone (Prednisone) 1 mg QHS PO Last administered on 09/21/16 21:58; Admin Dose 1 MG; Start 09/14/16 at 21:00 Insulin Glargine (Lantus) 3 unit BID@08,20 SC Last administered on 09/22/16 07: 57; Admin Dose 3 UNIT; Start 09/15/16 at 20:00 Eye Lubricant (Artificial Tears Oph) 2 drop Q2H PRN BOTH EYES DRY EYES Last administered on 09/18/16 17:40; Admin Dose 2 DROP; Start 09/18/16 at 15:00 Diagnostic Test (Pha) (Accu-Chek) 1 ea 02 XX ; Start 09/20/16 at 02:00 Epoetin César (Epogen (Esrd)) 10,000 units MoWeFr@17 SC Last administered on 09/21 17:34; Admin Dose 10,000 UNITS; Start 09/21/16 at 17:00 Metoprolol Tartrate (Lopressor) 25 mg BID PO ; Start 09/21/16 at 21:00 TOMER GARCIA MD Sep 22, 2016 13:44
[2016-09-22] MEDS: HYDROCODONE/APAP (5/325) TAB PO PRN (14:05)
[2016-09-22] MEDS: predniSONE 1 MG TAB PO SCH ×2 (17:36→21:05)
[2016-09-22] MEDS: ATORVASTATIN 40 MG TAB PO SCH (21:04)
[2016-09-23] VITALS (17 sets, daily range): BP systolic 84–149; BP diastolic 34–61; PULSE 68–75; RESP 16–18
[2016-09-23] MEDS: HYDROCODONE/APAP (5/325) TAB PO PRN ×2 (01:15→09:52)
[2016-09-23] MEDS: ACCU-CHEK XX SCH (02:04)
[2016-09-23] MEDS: FAMOTIDINE 20 MG INJ IV SCH (07:26)
--- NOTE | 2016-09-23 07:34 | CONS ---
Date/Time of Note Date/Time of Note DATE: 09/23/16 TIME: 07:32 Assessment/Plan Assessment/Plan Additional Assessment/Plan 1. CKD, to be dialyzed today. 2. Known Atrial fib 3. Anemia, stable 4. Cx Fx, progressing albeit slowly with PT Consultation Date/Type/Reason Admit Date/Time September 07, 2016 at 16:36 Initial Consult Date 09/08/16 Type of Consultation: neph Referring Provider: TOMER GARCIA MD Detailed Summary Respiratory: No cough, No shortness of breath Cardiovascular: No chest pain Gastrointestinal: no complaints Genitourinary: no complaints Musculoskeletal: neck pain (mild) Neurologic: other (legs are wobbly when trying to walk) Exam/Review of Systems Vital Signs Vitals Vital Signs Date Time Temp Pulse Resp B/P Pulse Ox O2 Delivery O2 Flow Rate FiO2 09/23/16 05:51 2.0 09/23/16 04:36 75 09/23/16 04:10 97.7 17 104/61 100 09/22/16 20:00 Nasal Cannula 09/22/16 19:47 21 Intake and Output 09/22/16 09/22/16 09/23/16 15:00 23:00 07:00 Intake Total 400 ml 200 ml Output Total 0 ml Balance 400 ml 200 ml Exam Neck: other (collar in place) Respiratory: No clear to auscultation Cardiovascular: irregular rhythm Gastrointestinal: soft Extremities: No edema 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: No focal weakness Results Result Diagram: 09/22/16 0613 09/22/16 0613 Results 24 hrs Laboratory Tests Test 09/22/16 07:53 09/22/16 11:37 09/22/16 17:15 09/22/16 21:02 Bedside Glucose 83 88 145 145 Medications Medications Current Medications Acetaminophen/ Hydrocodone Bitart ([place] (5/325)) 1 tab Q6H PRN PO MODERATE PAIN LEVEL 4-6 Last administered on 09/22/16 14:05; Admin Dose 1 TAB; Start at 17:30 Acetaminophen/ Hydrocodone Bitart ([place] (5/325)) 2 tab Q6H PRN PO SEVERE PAIN LEVEL 7-10 Last administered on 09/23/16 01:15; Admin Dose 2 TAB; Start at 17:30 Docusate Sodium (Colace) 100 mg Q12H PRN PO CONSTIPATION Last administered on 09:42; Admin Dose 100 MG; Start 09/07/16 at 17:30 Sodium Biphosphate/ Sodium Phosphate (Fleet Enema) 133 ml DAILY PRN [place] CONSTIPATION; Start 09/07/16 at 17:30 Famotidine (Pepcid Iv) 20 mg DAILY IV Last administered on 09/22/16 09:00; Admin Dose 20 MG; Start 09/08/16 at 09:00 Heparin Sodium (Porcine) (Heparin (5000 Units/0.5 ml)) 5,000 unit Q12 SC Last administered on 09/22/16 21:11; Admin Dose 5,000 UNIT; Start 09/07/16 at 21:00 Folic Acid (Folic Acid) 1 mg BID PO Last administered on 09/22/16 21:04; Admin Dose 1 MG; Start 09/07/16 at 21:00 Fenofibrate (Tricor) 48 mg QAM PO Last administered on 09/22/16 08:59; Admin Dose 48 MG; Start 09/08/16 at 09:00 Linagliptin (Tradjenta) 5 mg DAILY PO Last administered on 09/22/16 08:59; Admin Dose 5 MG; Start 09/07/16 at 18:00 Salmeterol Xinafoate/ Fluticasone (Advair 250/50 Diskus) 1 inh BID INH Last administered on 09/22/16 21:03; Admin Dose 1 INH; Start 09/07/16 at 23:00 Atorvastatin Calcium (Lipitor) 40 mg QHS PO Last administered on 09/22/16 21:04 ; Admin Dose 40 MG; Start 09/07/16 at 21:00 Gabapentin (Neurontin) 900 mg QHS PO Last administered on 09/22/16 21:03; Admin Dose 900 MG; Start 09/07/16 at 21:00 Miscellaneous Information 1 ea NOTE XX ; Start 09/07/16 at 18:00 Glucose (Glutose) 15 gm Q15M PRN PO DECREASED GLUCOSE; Start 09/07/16 at 18:00 Glucose (Glutose) 22.5 gm Q15M PRN PO DECREASED GLUCOSE; Start 09/07/16 at 18: 00 Dextrose (D50w Syringe) 25 ml Q15M PRN IV DECREASED GLUCOSE; Start 09/07/16 at 18:00 Dextrose (D50w Syringe) 50 ml Q15M PRN IV DECREASED GLUCOSE; Start 09/07/16 at 18:00 Glucagon (Glucagen) 1 mg Q15M PRN IM DECREASED GLUCOSE; Start 09/07/16 at 18:00 Glucose (Glutose) 15 gm Q15M PRN BUCCAL DECREASED GLUCOSE; Start 09/07/16 at 18 :00 Naloxone HCl (Narcan) 0.2 mg Q2M PRN IV DECREASED REPIRATORY RATE Last administered on 09/08/16 02:44; Admin Dose 0.2 MG; Start 09/08/16 at 02:30 Tramadol HCl (Ultram) 50 mg Q8H PRN PO PAIN Last administered on 09/16/16 12:51 ; Admin Dose 50 MG; Start 09/08/16 at 16:00 Hydromorphone HCl (Dilaudid) 0.5 mg Q2H PRN IV PAIN Last administered on 01:36; Admin Dose 0.5 MG; Start 09/09/16 at 08:30 Gabapentin (Neurontin) 300 mg 09,16 PO Last administered on 09/22/16 16:21; Admin Dose 300 MG; Start 09/15/16 at 09:00 Prednisone (Prednisone) 5 mg DAILY PO Last administered on 09/22/16 08:59; Admin Dose 5 MG; Start 09/15/16 at 09:00 Prednisone (Prednisone) 1 mg QHS PO Last administered on 09/22/16 21:05; Admin Dose 1 MG; Start 09/14/16 at 21:00 Insulin Glargine (Lantus) 3 unit BID@08,20 SC Last administered on 09/22/16 20: 07; Admin Dose 3 UNIT; Start 09/15/16 at 20:00 Eye Lubricant (Artificial Tears Oph) 2 drop Q2H PRN BOTH EYES DRY EYES Last administered on 09/18/16 17:40; Admin Dose 2 DROP; Start 09/18/16 at 15:00 Diagnostic Test (Pha) (Accu-Chek) 1 ea 02 XX Last administered on 09/23/16 02: 04; Admin Dose 1 EA; Start 09/20/16 at 02:00 Epoetin César (Epogen (Esrd)) 10,000 units MoWeFr@17 SC Last administered on 09/21 17:34; Admin Dose 10,000 UNITS; Start 09/21/16 at 17:00 Metoprolol Tartrate (Lopressor) 25 mg BID PO Last administered on 09/22/16 21: 04; Admin Dose 25 MG; Start 09/21/16 at 21:00 ARISTIDES WATKINS MD Sep 23, 2016 07:34
[2016-09-23] MEDS: INSULIN ASPART [NOVOLOG] 3 ML PEN SC SCH ×4 (07:38→21:00)
[2016-09-23] MEDS: METOPROLOL 25 MG TAB PO SCH ×2 (09:00→20:59)
[2016-09-23] MEDS: FENOFIBRATE 48 MG TAB PO SCH (09:40)
[2016-09-23] MEDS: GABAPENTIN 300 MG CAP PO SCH ×3 (09:40→20:58)
[2016-09-23] MEDS: SEVELAMER CARBONATE 0.8 GM PKT PO SCH ×3 (09:40→16:53)
[2016-09-23] MEDS: SALMETEROL/FLUTICASONE 250/50 INHA INH SCH ×2 (09:41→20:59)
[2016-09-23] MEDS: FOLIC ACID 1 MG TAB PO SCH ×2 (09:41→20:58)
[2016-09-23] MEDS: LINAGLIPTIN 5 MG TABLET PO SCH (09:41)
[2016-09-23] MEDS: predniSONE 5 MG TAB PO SCH (09:41)
[2016-09-23] MEDS: INSULIN GLARGINE [LANtus] 3 ML PEN SC SCH (09:45)
[2016-09-23] MEDS: HEPARIN 5,000 UNIT/0.5 ML VIAL SC SCH ×2 (09:45→21:05)
[2016-09-23] MEDS ORDERED: ALBUMIN HUMAN 25% 100 ML IV ONE ×2 (10:30→11:00)
--- NOTE | 2016-09-23 11:34 | CONS ---
Date/Time of Note Date/Time of Note DATE: 09/23/16 TIME: 11:33 Consult Date/Type/Reason Admit Date/Time September 07, 2016 at 16:36 Initial Consult Date 09/08/16 Type of Consultation: Pulmonary Ordering Provider: TOMER GARCIA MD Subjective Patient having hemodialysis this morning awake alert oriented Objective Vital Signs Date Time Temp Pulse Resp B/P Pulse Ox O2 Delivery O2 Flow Rate FiO2 09/23/16 10:00 69 09/23/16 08:15 Nasal Cannula 2.0 09/23/16 07:30 18 09/23/16 04:10 97.7 104/61 100 09/22/16 19:47 21 Intake and Output 09/22/16 09/22/16 09/23/16 14:59 22:59 06:59 Intake Total 400 ml 200 ml Output Total 0 ml Balance 400 ml 200 ml Exam GENERAL: Elderly lady comfortable at rest VITAL SIGNS: per chart NECK: C-s collar in place CARDIAC EXAM: S1, S2. No added sounds or murmurs. CHEST: clear bilaterally, No added sounds, rales or wheezes ABDOMEN: Soft, nontender. No guarding or rebound. EXTREMITIES: No cyanosis, clubbing or edema. NEUROLOGIC: Generalized weakness. No focal deficits. Results/Medications Result Diagram: 09/22/1661209/22/16612 Results 24 hrs Laboratory Tests Test 09/22/16 11:37 09/22/16 17:15 09/22/16 21:02 09/23/16 07:32 Bedside Glucose 88 145 145 78 Test 09/23/16 11:23 Bedside Glucose 152 Medications Current Medications Acetaminophen/ Hydrocodone Bitart ([place] (5/325)) 1 tab Q6H PRN PO MODERATE PAIN LEVEL 4-6 Last administered on 09/23/16 09:52; Admin Dose 1 TAB; Start at 17:30 Acetaminophen/ Hydrocodone Bitart ([place] (5/325)) 2 tab Q6H PRN PO SEVERE PAIN LEVEL 7-10 Last administered on 09/23/16 01:15; Admin Dose 2 TAB; Start at 17:30 Docusate Sodium (Colace) 100 mg Q12H PRN PO CONSTIPATION Last administered on 09:42; Admin Dose 100 MG; Start 09/07/16 at 17:30 Sodium Biphosphate/ Sodium Phosphate (Fleet Enema) 133 ml DAILY PRN [place] CONSTIPATION; Start 09/07/16 at 17:30 Famotidine (Pepcid Iv) 20 mg DAILY IV Last administered on 09/22/16 09:00; Admin Dose 20 MG; Start 09/08/16 at 09:00 Heparin Sodium (Porcine) (Heparin (5000 Units/0.5 ml)) 5,000 unit Q12 SC Last administered on 09/23/16 09:45; Admin Dose 5,000 UNIT; Start 09/07/16 at 21:00 Folic Acid (Folic Acid) 1 mg BID PO Last administered on 09/23/16 09:41; Admin Dose 1 MG; Start 09/07/16 at 21:00 Fenofibrate (Tricor) 48 mg QAM PO Last administered on 09/23/16 09:40; Admin Dose 48 MG; Start 09/08/16 at 09:00 Linagliptin (Tradjenta) 5 mg DAILY PO Last administered on 09/23/16 09:41; Admin Dose 5 MG; Start 09/07/16 at 18:00 Salmeterol Xinafoate/ Fluticasone (Advair 250/50 Diskus) 1 inh BID INH Last administered on 09/23/16 09:41; Admin Dose 1 INH; Start 09/07/16 at 23:00 Atorvastatin Calcium (Lipitor) 40 mg QHS PO Last administered on 09/22/16 21:04 ; Admin Dose 40 MG; Start 09/07/16 at 21:00 Gabapentin (Neurontin) 900 mg QHS PO Last administered on 09/22/16 21:03; Admin Dose 900 MG; Start 09/07/16 at 21:00 Miscellaneous Information 1 ea NOTE XX ; Start 09/07/16 at 18:00 Glucose (Glutose) 15 gm Q15M PRN PO DECREASED GLUCOSE; Start 09/07/16 at 18:00 Glucose (Glutose) 22.5 gm Q15M PRN PO DECREASED GLUCOSE; Start 09/07/16 at 18: 00 Dextrose (D50w Syringe) 25 ml Q15M PRN IV DECREASED GLUCOSE; Start 09/07/16 at 18:00 Dextrose (D50w Syringe) 50 ml Q15M PRN IV DECREASED GLUCOSE; Start 09/07/16 at 18:00 Glucagon (Glucagen) 1 mg Q15M PRN IM DECREASED GLUCOSE; Start 09/07/16 at 18:00 Glucose (Glutose) 15 gm Q15M PRN BUCCAL DECREASED GLUCOSE; Start 09/07/16 at 18 :00 Naloxone HCl (Narcan) 0.2 mg Q2M PRN IV DECREASED REPIRATORY RATE Last administered on 09/08/16 02:44; Admin Dose 0.2 MG; Start 09/08/16 at 02:30 Tramadol HCl (Ultram) 50 mg Q8H PRN PO PAIN Last administered on 09/16/16 12:51 ; Admin Dose 50 MG; Start 09/08/16 at 16:00 Hydromorphone HCl (Dilaudid) 0.5 mg Q2H PRN IV PAIN Last administered on 01:36; Admin Dose 0.5 MG; Start 09/09/16 at 08:30 Gabapentin (Neurontin) 300 mg 16 PO Last administered on 09/23/16 09:40; Admin Dose 300 MG; Start 09/15/16 at 09:00 Prednisone (Prednisone) 5 mg DAILY PO Last administered on 09/23/16 09:41; Admin Dose 5 MG; Start 09/15/16 at 09:00 Prednisone (Prednisone) 1 mg QHS PO Last administered on 09/22/16 21:05; Admin Dose 1 MG; Start 09/14/16 at 21:00 Insulin Glargine (Lantus) 3 unit BID@08,20 SC Last administered on 09/23/16 09: 45; Admin Dose 3 UNIT; Start 09/15/16 at 20:00 Eye Lubricant (Artificial Tears Oph) 2 drop Q2H PRN BOTH EYES DRY EYES Last administered on 09/18/16 17:40; Admin Dose 2 DROP; Start 09/18/16 at 15:00 Diagnostic Test (Pha) (Accu-Chek) 1 ea 02 XX Last administered on 09/23/16 02: 04; Admin Dose 1 EA; Start 09/20/16 at 02:00 Epoetin César (Epogen (Esrd)) 10,000 units MoWeFr@17 SC Last administered on 09/21 17:34; Admin Dose 10,000 UNITS; Start 09/21/16 at 17:00 Metoprolol Tartrate 25 mg 25 mg BID PO Last administered on 09/22/16 21:04; Admin Dose 25 MG; Start 09/21/16 at 21:00 Albumin Human (Albumin Human 25%) 100 ml @ 100 mls/hr ONCE ONCE IV Last administered on 09/23/16 10:20; Admin Dose 100 MLS/HR; Start 09/23/16 at 11:00; Stop 09/23/16 at 11:59 Assessment/Plan Chief Complaint/Hosp Course IMP: 1. Acute on chronic hypercapnic respiratory failure: multifactorial in etiology. Possible underlying OSH or COPD. Doubt significant [id number] diaphragmatic weakness 2. C-spine injury-- 3. s/p TAVR. 4. End-stage renal disease, on hemodialysis. 5. Pulmonary sarcoidosis, patient on long-term prednisone use. 6. History of hypertension. 7. Afib with RVR 8. Coronary artery disease. Status post PTCA in the past. History of CHF RECS: 1. Continue low-dose steroids 2. Continue hemodialysis 3. Orthopedic recommendations continue C-spine collar 4. Aspiration precautions 5. DVT and GI prophylaxis Disposition Continue current care consider transfer to [facility]. Problems: DEBRA HERNÁNDEZ MD, [facility] Sep 23, 2016 11:34
--- NOTE | 2016-09-23 13:37 | PN ---
Date/Time of Note Date/Time of Note DATE: 09/23/16 TIME: 13:33 Assessment/Plan VTE Prophylaxis VTE Prophylaxis Intervention: SCD's Lines/Catheters IV Catheter Type (from Nrs): PICC Line Central line still needed: No (Discontinued) Urinary Cath still in place: No Assessment/Plan Problems: (1) C2 cervical fracture Status: Acute Comment: She is doing relatively stable. She continues to be very cooperative with a neck collar and is starting physical therapy. She is actually turning out to be a decent candidate for the acute rehabilitation unit. We will see if we can make arrangements for her to be able to go there while continuing to receive hemodialysis Qualifiers: Encounter type: initial encounter Fracture type: closed Fracture morphology: other dens Fracture alignment: displaced Qualified Code: S12.120A - Other closed displaced odontoid fracture, initial encounter (2) COPD (chronic obstructive pulmonary disease) Status: Chronic Comment: Stable and adequately controlled Qualifiers: COPD type: emphysema Emphysema type: panlobular Qualified Code: J43.1 - Panlobular emphysema (3) Sarcoidosis Status: Chronic Comment: Continue on steroids. (4) ESRD (end stage renal disease) on dialysis Status: Chronic Comment: Continue with hemodialysis tolerating nicely (5) Diabetes mellitus type 2 in obese Status: Chronic Comment: Well-controlled. (6) Obstructive sleep apnea Status: Chronic Comment: Noted. Please note the patient refuses a nocturnal BiPAP despite credit counselor (7) Status post transcatheter aortic valve replacement (TAVR) using bioprosthesis Status: Acute Comment: Stable and operational Subjective 24 Hr Interval Summary Free Text/Dictation Patient reports she is feeling better today. Better control of pain. Able to use lower extremities. Please not had dialysis this morning which is postponing today's physical therapy. Constitutional: no complaints Respiratory: no complaints Cardiovascular: no complaints Gastrointestinal: no complaints Exam/Review of Systems Vital Signs Vitals Vital Signs Date Time Temp Pulse Resp B/P Pulse Ox O2 Delivery O2 Flow Rate FiO2 09/23/16 12:28 69 09/23/16 11:46 98.3 18 84/58 97 09/23/16 08:15 Nasal Cannula 2.0 09/22/16 19:47 21 Intake and Output 09/22/16 09/22/16 09/23/16 15:00 23:00 07:00 Intake Total 400 ml 200 ml Output Total 0 ml Balance 400 ml 200 ml Exam Constitutional: alert, oriented Respiratory: clear to auscultation, normal air movement Cardiovascular: nl pulses, regular rate and rhythm Gastrointestinal: nl liver, spleen, non-tender, soft Results Result Diagram: 09/22/16 0613 09/22/16 0613 Results 24 hrs Laboratory Tests Test 09/22/16 17:15 09/22/16 21:02 09/23/16 07:32 09/23/16 11:23 Bedside Glucose 145 145 78 152 Medications Medications Current Medications Acetaminophen/ Hydrocodone Bitart ([place] (5/325)) 1 tab Q6H PRN PO MODERATE PAIN LEVEL 4-6 Last administered on 09/23/16 09:52; Admin Dose 1 TAB; Start at 17:30 Acetaminophen/ Hydrocodone Bitart ([place] (5/325)) 2 tab Q6H PRN PO SEVERE PAIN LEVEL 7-10 Last administered on 09/23/16 01:15; Admin Dose 2 TAB; Start at 17:30 Docusate Sodium (Colace) 100 mg Q12H PRN PO CONSTIPATION Last administered on 09:42; Admin Dose 100 MG; Start 09/07/16 at 17:30 Sodium Biphosphate/ Sodium Phosphate (Fleet Enema) 133 ml DAILY PRN [place] CONSTIPATION; Start 09/07/16 at 17:30 Famotidine (Pepcid Iv) 20 mg DAILY IV Last administered on 09/22/16 09:00; Admin Dose 20 MG; Start 09/08/16 at 09:00 Heparin Sodium (Porcine) (Heparin (5000 Units/0.5 ml)) 5,000 unit Q12 SC Last administered on 09/23/16 09:45; Admin Dose 5,000 UNIT; Start 09/07/16 at 21:00 Folic Acid (Folic Acid) 1 mg BID PO Last administered on 09/23/16 09:41; Admin Dose 1 MG; Start 09/07/16 at 21:00 Fenofibrate (Tricor) 48 mg QAM PO Last administered on 09/23/16 09:40; Admin Dose 48 MG; Start 09/08/16 at 09:00 Linagliptin (Tradjenta) 5 mg DAILY PO Last administered on 09/23/16 09:41; Admin Dose 5 MG; Start 09/07/16 at 18:00 Salmeterol Xinafoate/ Fluticasone (Advair 250/50 Diskus) 1 inh BID INH Last administered on 09/23/16 09:41; Admin Dose 1 INH; Start 09/07/16 at 23:00 Atorvastatin Calcium (Lipitor) 40 mg QHS PO Last administered on 09/22/16 21:04 ; Admin Dose 40 MG; Start 09/07/16 at 21:00 Gabapentin (Neurontin) 900 mg QHS PO Last administered on 09/22/16 21:03; Admin Dose 900 MG; Start 09/07/16 at 21:00 Miscellaneous Information 1 ea NOTE XX ; Start 09/07/16 at 18:00 Glucose (Glutose) 15 gm Q15M PRN PO DECREASED GLUCOSE; Start 09/07/16 at 18:00 Glucose (Glutose) 22.5 gm Q15M PRN PO DECREASED GLUCOSE; Start 09/07/16 at 18: 00 Dextrose (D50w Syringe) 25 ml Q15M PRN IV DECREASED GLUCOSE; Start 09/07/16 at 18:00 Dextrose (D50w Syringe) 50 ml Q15M PRN IV DECREASED GLUCOSE; Start 09/07/16 at 18:00 Glucagon (Glucagen) 1 mg Q15M PRN IM DECREASED GLUCOSE; Start 09/07/16 at 18:00 Glucose (Glutose) 15 gm Q15M PRN BUCCAL DECREASED GLUCOSE; Start 09/07/16 at 18 :00 Naloxone HCl (Narcan) 0.2 mg Q2M PRN IV DECREASED REPIRATORY RATE Last administered on 09/08/16 02:44; Admin Dose 0.2 MG; Start 09/08/16 at 02:30 Tramadol HCl (Ultram) 50 mg Q8H PRN PO PAIN Last administered on 09/16/16 12:51 ; Admin Dose 50 MG; Start 09/08/16 at 16:00 Hydromorphone HCl (Dilaudid) 0.5 mg Q2H PRN IV PAIN Last administered on 01:36; Admin Dose 0.5 MG; Start 09/09/16 at 08:30 Gabapentin (Neurontin) 300 mg PO Last administered on 09/23/16 09:40; Admin Dose 300 MG; Start 09/15/16 at 09:00 Prednisone (Prednisone) 5 mg DAILY PO Last administered on 09/23/16 09:41; Admin Dose 5 MG; Start 09/15/16 at 09:00 Prednisone (Prednisone) 1 mg QHS PO Last administered on 09/22/16 21:05; Admin Dose 1 MG; Start 09/14/16 at 21:00 Insulin Glargine (Lantus) 3 unit BID@08,20 SC Last administered on 09/23/16 09: 45; Admin Dose 3 UNIT; Start 09/15/16 at 20:00 Eye Lubricant (Artificial Tears Oph) 2 drop Q2H PRN BOTH EYES DRY EYES Last administered on 09/18/16 17:40; Admin Dose 2 DROP; Start 09/18/16 at 15:00 Diagnostic Test (Pha) (Accu-Chek) 1 ea 02 XX Last administered on 09/23/16 02: 04; Admin Dose 1 EA; Start 09/20/16 at 02:00 Epoetin César (Epogen (Esrd)) 10,000 units MoWeFr@17 SC Last administered on 09/21 17:34; Admin Dose 10,000 UNITS; Start 09/21/16 at 17:00 Metoprolol Tartrate (Lopressor) 25 mg BID PO Last administered on 09/22/16 21: 04; Admin Dose 25 MG; Start 09/21/16 at 21:00 TOMER GARCIA MD Sep 23, 2016 13:37
[2016-09-23] MEDS: EPOETIN 10000 UNITS/1 ML INJ (ESRD) SC SCH (16:57)
[2016-09-23] MEDS: predniSONE 1 MG TAB PO SCH ×2 (16:59→20:58)
[2016-09-23] MEDS: ATORVASTATIN 40 MG TAB PO SCH (20:58)
[2016-09-24] VITALS (7 sets, daily range): BP systolic 93–139; BP diastolic 52–75; PULSE 69; RESP 17–18
[2016-09-24] MEDS: HYDROCODONE/APAP (5/325) TAB PO PRN ×2 (01:15→20:16)
[2016-09-24] MEDS: ACCU-CHEK XX SCH (02:21)
[2016-09-24] MEDS: INSULIN ASPART [NOVOLOG] 3 ML PEN SC SCH ×4 (07:55→21:00)
[2016-09-24] MEDS: SEVELAMER CARBONATE 0.8 GM PKT PO SCH ×3 (08:13→17:10)
--- NOTE | 2016-09-24 08:13 | CONS ---
Date/Time of Note Date/Time of Note DATE: 09/24/16 TIME: 08:10 Assessment/Plan Assessment/Plan Problems: (1) Atrial fibrillation Status: Chronic Comment: rate controlled, off AC Qualifiers: Atrial fibrillation type: chronic Qualified Code: I48.2 - Chronic atrial fibrillation (2) C2 cervical fracture Status: Acute Comment: in hard collar,... getting PT Qualifiers: Encounter type: initial encounter Fracture type: closed Fracture morphology: other dens Fracture alignment: displaced Qualified Code: S12.120A - Other closed displaced odontoid fracture, initial encounter (3) ESRD (end stage renal disease) on dialysis Status: Chronic Comment: next HD to be mon Consultation Date/Type/Reason Admit Date/Time September 07, 2016 at 16:36 Initial Consult Date 09/08/16 Type of Consultation: neph Referring Provider: TOMER GARCIA MD 24 HR Interval Summary Free Text/Dictation calm, relaxed Exam/Review of Systems Vital Signs Vitals Vital Signs Date Time Temp Pulse Resp B/P Pulse Ox O2 Delivery O2 Flow Rate FiO2 09/24/16 07:40 98.2 80 17 126/58 93 09/24/16 01:31 2.0 09/23/16 20:00 Nasal Cannula 09/22/16 19:47 21 Intake and Output 09/23/16 09/23/16 09/24/16 15:00 23:00 07:00 Intake Total 300 ml 250 ml 300 ml Output Total 3300 ml 0 ml Balance -3000 ml 250 ml 300 ml Exam Constitutional: well developed Psych: no complaints Eyes: nl conjunctiva Respiratory: clear to auscultation Cardiovascular: irregular rhythm Extremities: normal pulses (fxn avf) Results Result Diagram: 09/22/16 0613 09/22/16 0613 Results 24 hrs Laboratory Tests Test 09/23/16 11:23 09/23/16 16:50 09/23/16 20:52 Bedside Glucose 152 146 139 Medications Medications Current Medications Acetaminophen/ Hydrocodone Bitart ([place] (5/325)) 1 tab Q6H PRN PO MODERATE PAIN LEVEL 4-6 Last administered on 09/23/16t 09:52; Admin Dose 1 TAB; Start at 17:30 Acetaminophen/ Hydrocodone Bitart ([place] (5/325)) 2 tab Q6H PRN PO SEVERE PAIN LEVEL 7-10 Last administered on 09/24/16 01:15; Admin Dose 2 TAB; Start at 17:30 Docusate Sodium (Colace) 100 mg Q12H PRN PO CONSTIPATION Last administered on 09:42; Admin Dose 100 MG; Start 09/07/16 at 17:30 Sodium Biphosphate/ Sodium Phosphate (Fleet Enema) 133 ml DAILY PRN [place] CONSTIPATION; Start 09/07/16 at 17:30 Heparin Sodium (Porcine) (Heparin (5000 Units/0.5 ml)) 5,000 unit Q12 SC Last administered on 09/23/16 21:05; Admin Dose 5,000 UNIT; Start 09/07/16 at 21:00 Folic Acid (Folic Acid) 1 mg BID PO Last administered on 09/23/16 20:58; Admin Dose 1 MG; Start 09/07/16 at 21:00 Fenofibrate (Tricor) 48 mg QAM PO Last administered on 09/23/16 09:40; Admin Dose 48 MG; Start 09/08/16 at 09:00 Linagliptin (Tradjenta) 5 mg DAILY PO Last administered on 09/23/16 09:41; Admin Dose 5 MG; Start 09/07/16 at 18:00 Salmeterol Xinafoate/ Fluticasone (Advair 250/50 Diskus) 1 inh BID INH Last administered on 09/23/16 20:59; Admin Dose 1 INH; Start 09/07/16 at 23:00 Atorvastatin Calcium (Lipitor) 40 mg QHS PO Last administered on 09/23/16 20:58 ; Admin Dose 40 MG; Start 09/07/16 at 21:00 Gabapentin (Neurontin) 900 mg QHS PO Last administered on 09/23/16 20:58; Admin Dose 900 MG; Start 09/07/16 at 21:00 Miscellaneous Information 1 ea NOTE XX ; Start 09/07/16 at 18:00 Glucose (Glutose) 15 gm Q15M PRN PO DECREASED GLUCOSE; Start 09/07/16 at 18:00 Glucose (Glutose) 22.5 gm Q15M PRN PO DECREASED GLUCOSE; Start 09/07/16 at 18: 00 Dextrose (D50w Syringe) 25 ml Q15M PRN IV DECREASED GLUCOSE; Start 09/07/16 at 18:00 Dextrose (D50w Syringe) 50 ml Q15M PRN IV DECREASED GLUCOSE; Start 09/07/16 at 18:00 Glucagon (Glucagen) 1 mg Q15M PRN IM DECREASED GLUCOSE; Start 09/07/16 at 18:00 Glucose (Glutose) 15 gm Q15M PRN BUCCAL DECREASED GLUCOSE; Start 09/07/16 at 18 :00 Naloxone HCl (Narcan) 0.2 mg Q2M PRN IV DECREASED REPIRATORY RATE Last administered on 09/08/16 02:44; Admin Dose 0.2 MG; Start 09/08/16 at 02:30 Tramadol HCl (Ultram) 50 mg Q8H PRN PO PAIN Last administered on 09/16/16 12:51 ; Admin Dose 50 MG; Start 09/08/16 at 16:00 Hydromorphone HCl (Dilaudid) 0.5 mg Q2H PRN IV PAIN Last administered on 01:36; Admin Dose 0.5 MG; Start 09/09/16 at 08:30 Gabapentin (Neurontin) 300 mg PO Last administered on 09/23/16 16:53; Admin Dose 300 MG; Start 09/15/16 at 09:00 Prednisone (Prednisone) 1 mg QHS PO Last administered on 09/23/16 20:58; Admin Dose 1 MG; Start 09/14/16 at 21:00 Eye Lubricant (Artificial Tears Oph) 2 drop Q2H PRN BOTH EYES DRY EYES Last administered on 09/18/16 17:40; Admin Dose 2 DROP; Start 09/18/16 at 15:00 Diagnostic Test (Pha) (Accu-Chek) 1 ea 02 XX Last administered on 09/24/16 02: 21; Admin Dose 1 EA; Start 09/20/16 at 02:00 Epoetin César (Epogen (Esrd)) 10,000 units MoWeFr@17 SC Last administered on 09/23 16:57; Admin Dose 10,000 UNITS; Start 09/21/16 at 17:00 Metoprolol Tartrate (Lopressor) 25 mg BID PO Last administered on 09/23/16 20: 59; Admin Dose 25 MG; Start 09/21/16 at 21:00 Prednisone (Prednisone) 4 mg DAILY PO ; Start 09/24/16 at 09:00 Famotidine (Pepcid) 40 mg HS PO ; Start 09/24/16 at 21:00 NICO HAY MD Sep 24, 2016 08:13
[2016-09-24] MEDS: SALMETEROL/FLUTICASONE 250/50 INHA INH SCH ×2 (08:14→21:29)
[2016-09-24] MEDS: predniSONE 1 MG TAB PO SCH ×3 (08:15→21:43)
[2016-09-24] MEDS: LINAGLIPTIN 5 MG TABLET PO SCH (08:15)
[2016-09-24] MEDS: FENOFIBRATE 48 MG TAB PO SCH (08:15)
[2016-09-24] MEDS: FOLIC ACID 1 MG TAB PO SCH ×2 (08:15→21:21)
[2016-09-24] MEDS: GABAPENTIN 300 MG CAP PO SCH ×3 (08:15→21:21)
[2016-09-24] MEDS: METOPROLOL 25 MG TAB PO SCH ×2 (08:15→21:00)
[2016-09-24] MEDS: HEPARIN 5,000 UNIT/0.5 ML VIAL SC SCH ×2 (08:20→21:26)
--- NOTE | 2016-09-24 08:53 | PN ---
Date/Time of Note Date/Time of Note DATE: 09/24/16 TIME: 08:49 Assessment/Plan VTE Prophylaxis VTE Prophylaxis Intervention: other Lines/Catheters IV [facility] Type (from [facility]): PICC Line Central line still needed: No (It was removed already) Urinary Cath still in place: No Assessment/Plan Problems: (1) Atrial fibrillation Status: Chronic Comment: Rate is controlled on current regimen without complications. Resume anticoagulation in approximately 3 weeks Qualifiers: Atrial fibrillation type: chronic Qualified Code: I48.2 - Chronic atrial fibrillation (2) C2 cervical fracture Status: Acute Comment: Overall she is still in significant pain but a bit more comfortable. She will be ready for acute rehab when they have a bed available that can accommodate her special medical needs Qualifiers: Encounter type: initial encounter Fracture type: closed Fracture morphology: other dens Fracture alignment: displaced Qualified Code: S12.120A - Other closed displaced odontoid fracture, initial encounter (3) COPD (chronic obstructive pulmonary disease) Status: Chronic Comment: Adequate control on current regimen. Well accommodated Qualifiers: COPD type: emphysema Emphysema type: panlobular Qualified Code: J43.1 - Panlobular emphysema (4) Sarcoidosis Status: Chronic Comment: Remains on steroids but at near physiologic dosing (5) ESRD (end stage renal disease) on dialysis Status: Chronic Comment: As per nephrology stable and continues (6) Diabetes mellitus type 2 in obese Status: Chronic Comment: Well-controlled on single agent therapy (7) Hyperlipidemia Status: Chronic Comment: Continue statin treatment Qualifiers: Hyperlipidemia type: pure hypercholesterolemia Qualified Code: E78.00 - Pure hypercholesterolemia (8) Obstructive sleep apnea Status: Chronic Comment: Patient refuses to wear the BiPAP nocturnally. Re-counseled. (9) Diastolic dysfunction Status: Chronic Comment: Noted and on beta-blockade and stable (10) Left bundle branch block (LBBB) Status: Chronic Comment: Noted. (11) Status post transcatheter aortic valve replacement (TAVR) using bioprosthesis Status: Acute Comment: Operational without complications (12) Presence of coronary angioplasty implant and graft Status: Chronic Comment: Quiescent. Subjective 24 Hr Interval Summary Free Text/Dictation Patient report reports that she fatigues easily and that the lower extremity discomfort that she had is still present. Constitutional: no complaints (No fevers chills or sweats) Respiratory: no complaints Cardiovascular: no complaints Gastrointestinal: no complaints Genitourinary: no complaints Exam/Review of Systems Vital Signs Vitals Vital Signs Date Time Temp Pulse Resp B/P Pulse Ox O2 Delivery O2 Flow Rate FiO2 09/24/16 07:40 98.2 80 17 126/58 93 09/24/16 01:31 2.0 09/23/16 20:00 Nasal Cannula 09/22/16 19:47 21 Intake and Output 09/23/16 09/23/16 09/24/16 14:59 22:59 06:59 Intake Total 300 ml 250 ml 300 ml Output Total 3300 ml 0 ml Balance -3000 ml 250 ml 300 ml Exam Constitutional: alert, oriented Respiratory: clear to auscultation, normal air movement Cardiovascular: irregular rhythm, nl pulses Gastrointestinal: nl liver, spleen, non-tender, soft Extremities: normal pulses, other (Please note the hyperesthesia she had had early in the admission is not present on my exam) Results Result Diagram: 09/22/1661209/22/16 0613 Results 24 hrs Laboratory Tests Test 09/23/16 11:23 09/23/16 16:50 09/23/16 20:52 09/24/16 08:00 Bedside Glucose 152 146 139 99 Medications Medications Current Medications Acetaminophen/ Hydrocodone Bitart ([place] (5/325)) 1 tab Q6H PRN PO MODERATE PAIN LEVEL 4-6 Last administered on 09/23/16 09:52; Admin Dose 1 TAB; Start at 17:30 Acetaminophen/ Hydrocodone Bitart ([place] (5/325)) 2 tab Q6H PRN PO SEVERE PAIN LEVEL 7-10 Last administered on 09/24/16 01:15; Admin Dose 2 TAB; Start at 17:30 Docusate Sodium (Colace) 100 mg Q12H PRN PO CONSTIPATION Last administered on 09:42; Admin Dose 100 MG; Start 09/07/16 at 17:30 Sodium Biphosphate/ Sodium Phosphate (Fleet Enema) 133 ml DAILY PRN [place] CONSTIPATION; Start 09/07/16 at 17:30 Heparin Sodium (Porcine) (Heparin (5000 Units/0.5 ml)) 5,000 unit Q12 SC Last administered on 09/24/16 08:20; Admin Dose 5,000 UNIT; Start 09/07/16 at 21:00 Folic Acid (Folic Acid) 1 mg BID PO Last administered on 09/24/16 08:15; Admin Dose 1 MG; Start 09/07/16 at 21:00 Fenofibrate (Tricor) 48 mg QAM PO Last administered on 09/24/16 08:15; Admin Dose 48 MG; Start 09/08/16 at 09:00 Linagliptin (Tradjenta) 5 mg DAILY PO Last administered on 09/24/16 08:15; Admin Dose 5 MG; Start 09/07/16 at 18:00 Salmeterol Xinafoate/ Fluticasone (Advair 250/50 Diskus) 1 inh BID INH Last administered on 09/24/16 08:14; Admin Dose 1 INH; Start 09/07/16 at 23:00 Atorvastatin Calcium (Lipitor) 40 mg QHS PO Last administered on 09/23/16 20:58 ; Admin Dose 40 MG; Start 09/07/16 at 21:00 Gabapentin (Neurontin) 900 mg QHS PO Last administered on 09/23/16 20:58; Admin Dose 900 MG; Start 09/07/16 at 21:00 Miscellaneous Information 1 ea NOTE XX ; Start 09/07/16 at 18:00 Glucose (Glutose) 15 gm Q15M PRN PO DECREASED GLUCOSE; Start 09/07/16 at 18:00 Glucose (Glutose) 22.5 gm Q15M PRN PO DECREASED GLUCOSE; Start 09/07/16 at 18: 00 Dextrose (D50w Syringe) 25 ml Q15M PRN IV DECREASED GLUCOSE; Start 09/07/16 at 18:00 Dextrose (D50w Syringe) 50 ml Q15M PRN IV DECREASED GLUCOSE; Start 09/07/16 at 18:00 Glucagon (Glucagen) 1 mg Q15M PRN IM DECREASED GLUCOSE; Start 09/07/16 at 18:00 Glucose (Glutose) 15 gm Q15M PRN BUCCAL DECREASED GLUCOSE; Start 09/07/16 at 18 :00 Naloxone HCl (Narcan) 0.2 mg Q2M PRN IV DECREASED REPIRATORY RATE Last administered on 09/08/16 02:44; Admin Dose 0.2 MG; Start 09/08/16 at 02:30 Tramadol HCl (Ultram) 50 mg Q8H PRN PO PAIN Last administered on 09/16/16 12:51 ; Admin Dose 50 MG; Start 09/08/16 at 16:00 Hydromorphone HCl (Dilaudid) 0.5 mg Q2H PRN IV PAIN Last administered on 01:36; Admin Dose 0.5 MG; Start 09/09/16 at 08:30 Gabapentin (Neurontin) 300 mg PO Last administered on 09/24/16 08:15; Admin Dose 300 MG; Start 09/15/16 at 09:00 Prednisone (Prednisone) 1 mg QHS PO Last administered on 09/23/16 20:58; Admin Dose 1 MG; Start 09/14/16 at 21:00 Eye Lubricant (Artificial Tears Oph) 2 drop Q2H PRN BOTH EYES DRY EYES Last administered on 09/18/16 17:40; Admin Dose 2 DROP; Start 09/18/16 at 15:00 Diagnostic Test (Pha) (Accu-Chek) 1 ea 02 XX Last administered on 09/24/16 02: 21; Admin Dose 1 EA; Start 09/20/16 at 02:00 Epoetin César (Epogen (Esrd)) 10,000 units MoWeFr@17 SC Last administered on 09/23 16:57; Admin Dose 10,000 UNITS; Start 09/21/16 at 17:00 Metoprolol Tartrate (Lopressor) 25 mg BID PO Last administered on 09/24/16 08: 15; Admin Dose 25 MG; Start 09/21/16 at 21:00 Prednisone (Prednisone) 4 mg DAILY PO Last administered on 09/24/16 08:15; Admin Dose 4 MG; Start 09/24/16 at 09:00 Famotidine (Pepcid) 40 mg HS PO ; Start 09/24/16 at 21:00 TOMER GARCIA MD Sep 24, 2016 08:53
--- NOTE | 2016-09-24 18:19 | CONS ---
Date/Time of Note Date/Time of Note DATE: 09/24/16 TIME: 18:18 Consult Date/Type/Reason Admit Date/Time September 07, 2016 at 16:36 Initial Consult Date 09/08/16 Type of Consultation: pulm Ordering Provider: TOMER GARCIA MD Subjective No events. Objective Vital Signs Date Time Temp Pulse Resp B/P Pulse Ox O2 Delivery O2 Flow Rate FiO2 09/24/16 18:16 2.0 09/24/16 15:13 98.9 75 17 119/60 95 09/24/16 08:00 Nasal Cannula 09/22/16 19:47 21 Intake and Output 09/23/16 09/23/16 09/24/16 15:00 23:00 07:00 Intake Total 300 ml 250 ml 300 ml Output Total 3300 ml 0 ml Balance -3000 ml 250 ml 300 ml Exam NECK: C-s collar in place CARDIAC EXAM: S1, S2. No added sounds or murmurs. CHEST: clear bilaterally, No added sounds, rales or wheezes ABDOMEN: Soft, nontender. No guarding or rebound. EXTREMITIES: No cyanosis, clubbing or edema. Results/Medications Result Diagram: 09/22/1661209/22/16612 Results 24 hrs Laboratory Tests Test 09/23/16 20:52 09/24/16 08:00 09/24/16 12:08 09/24/16 17:09 Bedside Glucose 139 99 142 122 Medications Current Medications Acetaminophen/ Hydrocodone Bitart ([place] (5/325)) 1 tab Q6H PRN PO MODERATE PAIN LEVEL 4-6 Last administered on 09/23/16 09:52; Admin Dose 1 TAB; Start at 17:30 Acetaminophen/ Hydrocodone Bitart ([place] (5/325)) 2 tab Q6H PRN PO SEVERE PAIN LEVEL 7-10 Last administered on 09/24/16 01:15; Admin Dose 2 TAB; Start at 17:30 Docusate Sodium (Colace) 100 mg Q12H PRN PO CONSTIPATION Last administered on 09:42; Admin Dose 100 MG; Start 09/07/16 at 17:30 Sodium Biphosphate/ Sodium Phosphate (Fleet Enema) 133 ml DAILY PRN [place] CONSTIPATION; Start 09/07/16 at 17:30 Heparin Sodium (Porcine) (Heparin (5000 Units/0.5 ml)) 5,000 unit Q12 SC Last administered on 09/24/16 08:20; Admin Dose 5,000 UNIT; Start 09/07/16 at 21:00 Folic Acid (Folic Acid) 1 mg BID PO Last administered on 09/24/16 08:15; Admin Dose 1 MG; Start 09/07/16 at 21:00 Fenofibrate (Tricor) 48 mg QAM PO Last administered on 09/24/16 08:15; Admin Dose 48 MG; Start 09/08/16 at 09:00 Linagliptin (Tradjenta) 5 mg DAILY PO Last administered on 09/24/16 08:15; Admin Dose 5 MG; Start 09/07/16 at 18:00 Salmeterol Xinafoate/ Fluticasone (Advair 250/50 Diskus) 1 inh BID INH Last administered on 09/24/16 08:14; Admin Dose 1 INH; Start 09/07/16 at 23:00 Atorvastatin Calcium (Lipitor) 40 mg QHS PO Last administered on 09/23/16 20:58 ; Admin Dose 40 MG; Start 09/07/16 at 21:00 Gabapentin (Neurontin) 900 mg QHS PO Last administered on 09/23/16 20:58; Admin Dose 900 MG; Start 09/07/16 at 21:00 Miscellaneous Information 1 ea NOTE XX ; Start 09/07/16 at 18:00 Glucose (Glutose) 15 gm Q15M PRN PO DECREASED GLUCOSE; Start 09/07/16 at 18:00 Glucose (Glutose) 22.5 gm Q15M PRN PO DECREASED GLUCOSE; Start 09/07/16 at 18: 00 Dextrose (D50w Syringe) 25 ml Q15M PRN IV DECREASED GLUCOSE; Start 09/07/16 at 18:00 Dextrose (D50w Syringe) 50 ml Q15M PRN IV DECREASED GLUCOSE; Start 09/07/16 at 18:00 Glucagon (Glucagen) 1 mg Q15M PRN IM DECREASED GLUCOSE; Start 09/07/16 at 18:00 Glucose (Glutose) 15 gm Q15M PRN BUCCAL DECREASED GLUCOSE; Start 09/07/16 at 18 :00 Naloxone HCl (Narcan) 0.2 mg Q2M PRN IV DECREASED REPIRATORY RATE Last administered on 09/08/16 02:44; Admin Dose 0.2 MG; Start 09/08/16 at 02:30 Tramadol HCl (Ultram) 50 mg Q8H PRN PO PAIN Last administered on 09/16/16 12:51 ; Admin Dose 50 MG; Start 09/08/16 at 16:00 Hydromorphone HCl (Dilaudid) 0.5 mg Q2H PRN IV PAIN Last administered on 01:36; Admin Dose 0.5 MG; Start 09/09/16 at 08:30 Gabapentin (Neurontin) 300 mg PO Last administered on 09/24/16 17:10; Admin Dose 300 MG; Start 09/15/16 at 09:00 Prednisone (Prednisone) 1 mg QHS PO Last administered on 09/23/16 20:58; Admin Dose 1 MG; Start 09/14/16 at 21:00 Eye Lubricant (Artificial Tears Oph) 2 drop Q2H PRN BOTH EYES DRY EYES Last administered on 09/18/16 17:40; Admin Dose 2 DROP; Start 09/18/16 at 15:00 Diagnostic Test (Pha) (Accu-Chek) 1 ea 02 XX Last administered on 09/24/16 02: 21; Admin Dose 1 EA; Start 09/20/16 at 02:00 Epoetin César (Epogen (Esrd)) 10,000 units MoWeFr@17 SC Last administered on 09/23 16:57; Admin Dose 10,000 UNITS; Start 09/21/16 at 17:00 Metoprolol Tartrate (Lopressor) 25 mg BID PO Last administered on 09/24/16 08: 15; Admin Dose 25 MG; Start 09/21/16 at 21:00 Prednisone (Prednisone) 4 mg DAILY PO Last administered on 09/24/16 08:15; Admin Dose 4 MG; Start 09/24/16 at 09:00 Famotidine (Pepcid) 40 mg HS PO ; Start 09/24/16 at 21:00 Assessment/Plan Additional Assessment/Plan IMP: 1. Acute on chronic hypercapnic respiratory failure: multifactorial in etiology. Possible underlying OSH or COPD. Doubt significant [id number] diaphragmatic weakness 2. C-spine injury 3. s/p TAVR. 4. End-stage renal disease, on hemodialysis. 5. Pulmonary sarcoidosis, patient on long-term prednisone use. 6. History of hypertension. 7. Afib with RVR 8. Coronary artery disease. Status post PTCA in the past. History of CHF RECS: 1. Continue low-dose steroids 2. Continue hemodialysis 3. Orthopedic recommendations continue C-spine collar 4. Aspiration precautions 5. DVT and GI prophylaxis SAEED CERVANTES MD Sep 24, 2016 18:19
[2016-09-24] MEDS: ATORVASTATIN 40 MG TAB PO SCH (21:21)
[2016-09-24] MEDS: FAMOTIDINE 20 MG TAB PO SCH (21:56)
[2016-09-25] VITALS: BP 111/60; PULSE 72; RESP 18
[2016-09-25] MEDS: ACCU-CHEK XX SCH (02:00)
[2016-09-25 05:00] VITALS: BP 131/61; PULSE 77; RESP 18
[2016-09-25 05:09] LABS: ADD SCAN DIFF NO
[2016-09-25 05:12] LABS: BASOPHIL # 0.1 10^3/ul (0.0-0.1); BASOPHILS % 0.7 % (0.0-2.0); EOSINOPHILS # 0.2 10^3/ul (0.0-0.5); EOSINOPHILS % 1.8 % (0.0-7.0); HEMATOCRIT 27.2 % (37.0-47.0); HEMOGLOBIN 8.8 g/dl (12.0-16.0); LYMPHOCYTES # 1.7 10^3/ul (0.8-2.9); MEAN CORPUSCULAR HEMOGLOBIN 29.8 pg (29.0-33.0); MEAN CORPUSCULAR HGB CONC 32.4 g/dl (32.0-37.0); MEAN CORPUSCULAR VOLUME 92.2 fl (82.0-101.0); MEAN PLATELET VOLUME 10.6 fl (7.4-10.4); MONOCYTE # 0.7 10^3/ul (0.3-0.9); MONOCYTES % 8.7 % (0.0-11.0); NEUTROPHIL # 5.6 10^3/ul (1.6-7.5); NEUTROPHILS % 67.5 % (39.0-77.0); PLATELET COUNT 216 10^3/UL (140-415); RED BLOOD COUNT 2.95 10^6/ul (4.20-5.40); RED CELL DISTRIBUTION WIDTH 14.7 % (11.5-14.5); WHITE BLOOD COUNT 8.3 10^3/ul (4.8-10.8)
[2016-09-25 05:41] LABS: ALBUMIN 3.9 g/dl (3.3-4.9); ALBUMIN/GLOBULIN RATIO 1.44; CALCIUM 9.4 mg/dl (8.4-10.2); CREATININE 7.04 mg/dl (0.44-1.00); POTASSIUM 4.6 mmol/L (3.5-5.1); TOTAL PROTEIN 6.6 g/dl (6.1-8.1)
--- NOTE | 2016-09-25 07:48 | PN ---
Date/Time of Note Date/Time of Note DATE: 09/25/16 TIME: 07:44 Assessment/Plan VTE Prophylaxis VTE Prophylaxis Intervention: contraindicated Lines/Catheters IV Catheter Type (from Nrs): PICC Line Central line still needed: No (It has been removed) Urinary Cath still in place: No Assessment/Plan Problems: (1) C2 cervical fracture Status: Acute Comment: She remains in the hard collar. This is pleasantly progressing well. She should be able to go to the acute rehabilitation unit in the morning when a bed is available. Qualifiers: Encounter type: initial encounter Fracture type: closed Fracture morphology: other dens Fracture alignment: displaced Qualified Code: S12.120A - Other closed displaced odontoid fracture, initial encounter (2) Atrial fibrillation Status: Chronic Comment: Rate controlled on current medication therapy without untoward side effects resume anticoagulation in 3 weeks Qualifiers: Atrial fibrillation type: chronic Qualified Code: I48.2 - Chronic atrial fibrillation (3) COPD (chronic obstructive pulmonary disease) Status: Chronic Comment: Well-controlled and compensated Qualifiers: COPD type: emphysema Emphysema type: panlobular Qualified Code: J43.1 - Panlobular emphysema (4) Sarcoidosis Status: Chronic Comment: On low-dose steroid successfully (5) ESRD (end stage renal disease) on dialysis Status: Chronic Comment: Remains on hemodialysis on routine schedule well-tolerated and compensated (6) Diabetes mellitus type 2 in obese Status: Chronic Comment: Well-controlled on single agent therapy (7) Hypertension associated with chronic kidney disease due to type 2 diabetes mellitus Status: Chronic Comment: Adequately controlled blood pressure (8) Status post transcatheter aortic valve replacement (TAVR) using bioprosthesis Status: Acute Comment: Operational without complications (9) Diastolic dysfunction Status: Chronic Comment: On beta-blockade and stable (10) Obstructive sleep apnea Status: Chronic Comment: Patient again declines were nocturnal BiPAP (11) Hyperlipidemia Status: Chronic Comment: On statin therapy and stable without medication side effects Qualifiers: Hyperlipidemia type: pure hypercholesterolemia Qualified Code: E78.00 - Pure hypercholesterolemia Subjective 24 Hr Interval Summary Free Text/Dictation Patient resting in bed reports that she is still having her routine pains but has no new complaints. Constitutional: no complaints (No fevers chills or sweats) Respiratory: no complaints (No shortness of breath no wheezing) Cardiovascular: no complaints (No chest pain no PND no orthopnea) Gastrointestinal: no complaints Genitourinary: no complaints Exam/Review of Systems Vital Signs Vitals Vital Signs Date Time Temp Pulse Resp B/P Pulse Ox O2 Delivery O2 Flow Rate FiO2 09/25/16 05:00 98.4 77 18 131/61 98 Nasal Cannula 3.5 09/22/16 19:47 21 Intake and Output 09/24/16 09/24/16 09/25/16 15:00 23:00 07:00 Intake Total 1000 ml 360 ml Output Total 0 ml 0 ml Balance 1000 ml 360 ml Exam Constitutional: alert, oriented Neck: non-tender, supple Respiratory: clear to auscultation, normal air movement Cardiovascular: nl pulses, regular rate and rhythm Gastrointestinal: nl liver, spleen, non-tender, soft Results Result Diagram: 09/25/167 09/25/16 0437 Results 24 hrs Laboratory Tests Test 09/24/16 08:00 09/24/16 12:08 09/24/16 17:09 09/24/16 21:28 Bedside Glucose 99 142 122 135 Test 09/25/16 04:37 White Blood Count 8.3 # Red Blood Count 2.95 L Hemoglobin 8.8 L Hematocrit 27.2 L Mean Corpuscular Volume 92.2 Mean Corpuscular Hemoglobin 29.8 Mean Corpuscular Hemoglobin Concent 32.4 Red Cell Distribution Width 14.7 H Platelet Count 216 Mean Platelet Volume 10.6 H Neutrophils % 67.5 Lymphocytes % 20.0 Monocytes % 8.7 Eosinophils % 1.8 Basophils % 0.7 Nucleated Red Blood Cells % 0.0 Neutrophils # 5.6 Lymphocytes # 1.7 Monocytes # 0.7 Eosinophils # 0.2 Basophils # 0.1 Nucleated Red Blood Cells # 0.0 Sodium Level 133 L Potassium Level 4.6 Chloride Level 96 L Carbon Dioxide Level 26 Anion Gap 16 Blood Urea Nitrogen 61 H Creatinine 7.04 H Glucose Level 97 Calcium Level 9.4 Total Bilirubin 0.0 L Direct Bilirubin 0.00 Indirect Bilirubin 0.0 Aspartate Amino Transf (AST/SGOT) 17 Alanine Aminotransferase (ALT/SGPT) 29 Alkaline Phosphatase 44 Total Protein 6.6 Albumin 3.9 Globulin 2.70 Albumin/Globulin Ratio 1.44 Medications Medications Current Medications Acetaminophen/ Hydrocodone Bitart ([place] (5/325)) 1 tab Q6H PRN PO MODERATE PAIN LEVEL 4-6 Last administered on 09/23/16 09:52; Admin Dose 1 TAB; Start at 17:30 Acetaminophen/ Hydrocodone Bitart ([place] (5/325)) 2 tab Q6H PRN PO SEVERE PAIN LEVEL 7-10 Last administered on 09/24/16 20:16; Admin Dose 2 TAB; Start at 17:30 Docusate Sodium (Colace) 100 mg Q12H PRN PO CONSTIPATION Last administered on 09:42; Admin Dose 100 MG; Start 09/07/16 at 17:30 Sodium Biphosphate/ Sodium Phosphate (Fleet Enema) 133 ml DAILY PRN [place] CONSTIPATION; Start 09/07/16 at 17:30 Heparin Sodium (Porcine) (Heparin (5000 Units/0.5 ml)) 5,000 unit Q12 SC Last administered on 09/24/16 21:26; Admin Dose 5,000 UNIT; Start 09/07/16 at 21:00 Folic Acid (Folic Acid) 1 mg BID PO Last administered on 09/24/16 21:21; Admin Dose 1 MG; Start 09/07/16 at 21:00 Fenofibrate (Tricor) 48 mg QAM PO Last administered on 09/24/16 08:15; Admin Dose 48 MG; Start 09/08/16 at 09:00 Linagliptin (Tradjenta) 5 mg DAILY PO Last administered on 09/24/16 08:15; Admin Dose 5 MG; Start 09/07/16 at 18:00 Salmeterol Xinafoate/ Fluticasone (Advair 250/50 Diskus) 1 inh BID INH Last administered on 09/24/16 21:29; Admin Dose 1 INH; Start 09/07/16 at 23:00 Atorvastatin Calcium (Lipitor) 40 mg QHS PO Last administered on 09/24/16 21: 21; Admin Dose 40 MG; Start 09/07/16 at 21:00 Gabapentin (Neurontin) 900 mg QHS PO Last administered on 09/24/16 21:21; Admin Dose 900 MG; Start 09/07/16 at 21:00 Miscellaneous Information 1 ea NOTE XX ; Start 09/07/16 at 18:00 Glucose (Glutose) 15 gm Q15M PRN PO DECREASED GLUCOSE; Start 09/07/16 at 18:00 Glucose (Glutose) 22.5 gm Q15M PRN PO DECREASED GLUCOSE; Start 09/07/16 at 18: 00 Dextrose (D50w Syringe) 25 ml Q15M PRN IV DECREASED GLUCOSE; Start 09/07/16 at 18:00 Dextrose (D50w Syringe) 50 ml Q15M PRN IV DECREASED GLUCOSE; Start 09/07/16 at 18:00 Glucagon (Glucagen) 1 mg Q15M PRN IM DECREASED GLUCOSE; Start 09/07/16 at 18:00 Glucose (Glutose) 15 gm Q15M PRN BUCCAL DECREASED GLUCOSE; Start 09/07/16 at 18 :00 Naloxone HCl (Narcan) 0.2 mg Q2M PRN IV DECREASED REPIRATORY RATE Last administered on 09/08/16 02:44; Admin Dose 0.2 MG; Start 09/08/16 at 02:30 Tramadol HCl (Ultram) 50 mg Q8H PRN PO PAIN Last administered on 09/16/16 12:51 ; Admin Dose 50 MG; Start 09/08/16 at 16:00 Hydromorphone HCl (Dilaudid) 0.5 mg Q2H PRN IV PAIN Last administered on 01:36; Admin Dose 0.5 MG; Start 09/09/16 at 08:30 Gabapentin (Neurontin) 300 mg PO Last administered on 09/24/16 17:10; Admin Dose 300 MG; Start 09/15/16 at 09:00 Prednisone (Prednisone) 1 mg QHS PO Last administered on 09/24/16 21:43; Admin Dose 1 MG; Start 09/14/16 at 21:00 Eye Lubricant (Artificial Tears Oph) 2 drop Q2H PRN BOTH EYES DRY EYES Last administered on 09/18/16 17:40; Admin Dose 2 DROP; Start 09/18/16 at 15:00 Diagnostic Test (Pha) (Accu-Chek) 1 ea 02 XX Last administered on 09/24/16 02: 21; Admin Dose 1 EA; Start 09/20/16 at 02:00 Epoetin César (Epogen (Esrd)) 10,000 units MoWeFr@17 SC Last administered on 09/23 16:57; Admin Dose 10,000 UNITS; Start 09/21/16 at 17:00 Metoprolol Tartrate (Lopressor) 25 mg BID PO Last administered on 09/24/16 08: 15; Admin Dose 25 MG; Start 09/21/16 at 21:00 Prednisone (Prednisone) 4 mg DAILY PO Last administered on 09/24/16 08:15; Admin Dose 4 MG; Start 09/24/16 at 09:00 Famotidine (Pepcid) 40 mg HS PO Last administered on 09/24/16 21:56; Admin Dose 40 MG; Start 09/24/16 at 21:00 TOMER GARCIA MD Sep 25, 2016 07:48
[2016-09-25] MEDS: INSULIN ASPART [NOVOLOG] 3 ML PEN SC SCH ×4 (07:50→20:57)
[2016-09-25] MEDS: predniSONE 1 MG TAB PO SCH ×3 (08:21→20:56)
[2016-09-25] MEDS: FOLIC ACID 1 MG TAB PO SCH ×2 (08:21→20:56)
[2016-09-25] MEDS: LINAGLIPTIN 5 MG TABLET PO SCH (08:22)
[2016-09-25] MEDS: SEVELAMER CARBONATE 0.8 GM PKT PO SCH ×3 (08:24→18:11)
[2016-09-25] MEDS: SALMETEROL/FLUTICASONE 250/50 INHA INH SCH ×2 (08:25→20:57)
[2016-09-25] MEDS: GABAPENTIN 300 MG CAP PO SCH ×3 (08:30→20:56)
[2016-09-25] MEDS: FENOFIBRATE 48 MG TAB PO SCH (08:30)
[2016-09-25] MEDS: METOPROLOL 25 MG TAB PO SCH ×2 (08:31→20:57)
--- NOTE | 2016-09-25 08:34 | CONS ---
Date/Time of Note Date/Time of Note DATE: 09/25/16 TIME: 08:32 Assessment/Plan Assessment/Plan Problems: (1) Atrial fibrillation Status: Chronic Comment: stable...rate controlled Qualifiers: Atrial fibrillation type: chronic Qualified Code: I48.2 - Chronic atrial fibrillation (2) C2 cervical fracture Status: Acute Comment: to go to [facility] tomorrow (?) Qualifiers: Encounter type: initial encounter Fracture type: closed Fracture morphology: other dens Fracture alignment: displaced Qualified Code: S12.120A - Other closed displaced odontoid fracture, initial encounter (3) ESRD (end stage renal disease) on dialysis Status: Chronic Comment: for HD in am Consultation Date/Type/Reason Admit Date/Time September 07, 2016 at 16:36 Initial Consult Date 09/08/16 Type of Consultation: neph Referring Provider: TOMER GARCIA MD 24 HR Interval Summary Free Text/Dictation doing great... anxious for Rehab Exam/Review of Systems Vital Signs Vitals Vital Signs Date Time Temp Pulse Resp B/P Pulse Ox O2 Delivery O2 Flow Rate FiO2 09/25/16 05:00 98.4 77 18 131/61 98 Nasal Cannula 3.5 09/22/16 19:47 21 Intake and Output 09/24/16 09/24/16 09/25/16 15:00 23:00 07:00 Intake Total 1000 ml 360 ml Output Total 0 ml 0 ml Balance 1000 ml 360 ml Exam Constitutional: alert, oriented Psych: no complaints Eyes: nl conjunctiva Neck: other (in hard collar) Cardiovascular: irregular rhythm Gastrointestinal: soft Extremities: edema (fxn avf) Results Result Diagram: 09/25/16 0437 09/25/16 0437 Results 24 hrs Laboratory Tests Test 09/24/16 12:08 09/24/16 17:09 09/24/16 21:28 09/25/16 04:37 Bedside Glucose 142 122 135 White Blood Count 8.3 # Red Blood Count 2.95 L Hemoglobin 8.8 L Hematocrit 27.2 L Mean Corpuscular Volume 92.2 Mean Corpuscular Hemoglobin 29.8 Mean Corpuscular Hemoglobin Concent 32.4 Red Cell Distribution Width 14.7 H Platelet Count 216 Mean Platelet Volume 10.6 H Neutrophils % 67.5 Lymphocytes % 20.0 Monocytes % 8.7 Eosinophils % 1.8 Basophils % 0.7 Nucleated Red Blood Cells % 0.0 Neutrophils # 5.6 Lymphocytes # 1.7 Monocytes # 0.7 Eosinophils # 0.2 Basophils # 0.1 Nucleated Red Blood Cells # 0.0 Sodium Level 133 L Potassium Level 4.6 Chloride Level 96 L Carbon Dioxide Level 26 Anion Gap 16 Blood Urea Nitrogen 61 H Creatinine 7.04 H Glucose Level 97 Calcium Level 9.4 Total Bilirubin 0.0 L Direct Bilirubin 0.00 Indirect Bilirubin 0.0 Aspartate Amino Transf (AST/SGOT) 17 Alanine Aminotransferase (ALT/SGPT) 29 Alkaline Phosphatase 44 Total Protein 6.6 Albumin 3.9 Globulin 2.70 Albumin/Globulin Ratio 1.44 Test 09/25/16 08:24 Bedside Glucose 86 Medications Medications Current Medications Acetaminophen/ Hydrocodone Bitart ([place] (5/325)) 1 tab Q6H PRN PO MODERATE PAIN LEVEL 4-6 Last administered on 09/23/16 09:52; Admin Dose 1 TAB; Start at 17:30 Acetaminophen/ Hydrocodone Bitart ([place] (5/325)) 2 tab Q6H PRN PO SEVERE PAIN LEVEL 7-10 Last administered on 09/24/16 20:16; Admin Dose 2 TAB; Start at 17:30 Docusate Sodium (Colace) 100 mg Q12H PRN PO CONSTIPATION Last administered on 09:42; Admin Dose 100 MG; Start 09/07/16 at 17:30 Sodium Biphosphate/ Sodium Phosphate (Fleet Enema) 133 ml DAILY PRN [place] CONSTIPATION; Start 09/07/16 at 17:30 Heparin Sodium (Porcine) (Heparin (5000 Units/0.5 ml)) 5,000 unit Q12 SC Last administered on 09/24/16 21:26; Admin Dose 5,000 UNIT; Start 09/07/16 at 21:00 Folic Acid (Folic Acid) 1 mg BID PO Last administered on 09/24/16 21:21; Admin Dose 1 MG; Start 09/07/16 at 21:00 Fenofibrate (Tricor) 48 mg QAM PO Last administered on 09/24/16 08:15; Admin Dose 48 MG; Start 09/08/16 at 09:00 Linagliptin (Tradjenta) 5 mg DAILY PO Last administered on 09/24/16 08:15; Admin Dose 5 MG; Start 09/07/16 at 18:00 Salmeterol Xinafoate/ Fluticasone (Advair 250/50 Diskus) 1 inh BID INH Last administered on 09/24/16 21:29; Admin Dose 1 INH; Start 09/07/16 at 23:00 Atorvastatin Calcium (Lipitor) 40 mg QHS PO Last administered on 09/24/16 21: 21; Admin Dose 40 MG; Start 09/07/16 at 21:00 Gabapentin (Neurontin) 900 mg QHS PO Last administered on 09/24/16 21:21; Admin Dose 900 MG; Start 09/07/16 at 21:00 Miscellaneous Information 1 ea NOTE XX ; Start 09/07/16 at 18:00 Glucose (Glutose) 15 gm Q15M PRN PO DECREASED GLUCOSE; Start 09/07/16 at 18:00 Glucose (Glutose) 22.5 gm Q15M PRN PO DECREASED GLUCOSE; Start 09/07/16 at 18: 00 Dextrose (D50w Syringe) 25 ml Q15M PRN IV DECREASED GLUCOSE; Start 09/07/16 at 18:00 Dextrose (D50w Syringe) 50 ml Q15M PRN IV DECREASED GLUCOSE; Start 09/07/16 at 18:00 Glucagon (Glucagen) 1 mg Q15M PRN IM DECREASED GLUCOSE; Start 09/07/16 at 18:00 Glucose (Glutose) 15 gm Q15M PRN BUCCAL DECREASED GLUCOSE; Start 09/07/16 at 18 :00 Naloxone HCl (Narcan) 0.2 mg Q2M PRN IV DECREASED REPIRATORY RATE Last administered on 09/08/16 02:44; Admin Dose 0.2 MG; Start 09/08/16 at 02:30 Tramadol HCl (Ultram) 50 mg Q8H PRN PO PAIN Last administered on 09/16/16 12:51 ; Admin Dose 50 MG; Start 09/08/16 at 16:00 Hydromorphone HCl (Dilaudid) 0.5 mg Q2H PRN IV PAIN Last administered on 01:36; Admin Dose 0.5 MG; Start 09/09/16 at 08:30 Gabapentin (Neurontin) 300 mg ,16 PO Last administered on 09/24/16 17:10; Admin Dose 300 MG; Start 09/15/16 at 09:00 Prednisone (Prednisone) 1 mg QHS PO Last administered on 09/24/16 21:43; Admin Dose 1 MG; Start 09/14/16 at 21:00 Eye Lubricant (Artificial Tears Oph) 2 drop Q2H PRN BOTH EYES DRY EYES Last administered on 09/18/16 17:40; Admin Dose 2 DROP; Start 09/18/16 at 15:00 Diagnostic Test (Pha) (Accu-Chek) 1 ea 02 XX Last administered on 09/24/16 02: 21; Admin Dose 1 EA; Start 09/20/16 at 02:00 Epoetin César (Epogen (Esrd)) 10,000 units MoWeFr@17 SC Last administered on 09/23 16:57; Admin Dose 10,000 UNITS; Start 09/21/16 at 17:00 Metoprolol Tartrate (Lopressor) 25 mg BID PO Last administered on 09/24/16 08: 15; Admin Dose 25 MG; Start 09/21/16 at 21:00 Prednisone (Prednisone) 4 mg DAILY PO Last administered on 09/24/16 08:15; Admin Dose 4 MG; Start 09/24/16 at 09:00 Famotidine (Pepcid) 40 mg HS PO Last administered on 09/24/16 21:56; Admin Dose 40 MG; Start 09/24/16 at 21:00 NICO HAY MD Sep 25, 2016 08:34
[2016-09-25] MEDS: HEPARIN 5,000 UNIT/0.5 ML VIAL SC SCH ×2 (08:55→20:59)
[2016-09-25] MEDS: HYDROCODONE/APAP (5/325) TAB PO PRN (18:12)
--- NOTE | 2016-09-25 18:43 | CONS ---
Date/Time of Note Date/Time of Note DATE: 09/25/16 TIME: 18:42 Consult Date/Type/Reason Admit Date/Time September 07, 2016 at 16:36 Initial Consult Date 09/08/16 Type of Consultation: Pulm Ordering Provider: TOMER GARCIA MD Subjective No new events. No SOB Objective Vital Signs Date Time Temp Pulse Resp B/P Pulse Ox O2 Delivery O2 Flow Rate FiO2 09/25/16 16:02 2.0 09/25/16 08:00 Nasal Cannula 09/25/16 05:00 98.4 77 18 131/61 98 09/22/16 19:47 21 Intake and Output 09/24/16 09/24/16 09/25/16 15:00 23:00 07:00 Intake Total 1000 ml 360 ml Output Total 0 ml 0 ml Balance 1000 ml 360 ml Exam NECK: C-s collar in place CARDIAC EXAM: S1, S2. No added sounds or murmurs. CHEST: clear bilaterally, No added sounds, rales or wheezes ABDOMEN: Soft, nontender. No guarding or rebound. EXTREMITIES: No cyanosis, clubbing or edema. Results/Medications Result Diagram: 09/25/16 0437 09/25/16 0437 Results 24 hrs Laboratory Tests Test 09/24/16 21:28 09/25/16 04:37 09/25/16 08:24 09/25/16 12:18 Bedside Glucose 135 86 86 White Blood Count 8.3 # Red Blood Count 2.95 L Hemoglobin 8.8 L Hematocrit 27.2 L Mean Corpuscular Volume 92.2 Mean Corpuscular Hemoglobin 29.8 Mean Corpuscular Hemoglobin Concent 32.4 Red Cell Distribution Width 14.7 H Platelet Count 216 Mean Platelet Volume 10.6 H Neutrophils % 67.5 Lymphocytes % 20.0 Monocytes % 8.7 Eosinophils % 1.8 Basophils % 0.7 Nucleated Red Blood Cells % 0.0 Neutrophils # 5.6 Lymphocytes # 1.7 Monocytes # 0.7 Eosinophils # 0.2 Basophils # 0.1 Nucleated Red Blood Cells # 0.0 Sodium Level 133 L Potassium Level 4.6 Chloride Level 96 L Carbon Dioxide Level 26 Anion Gap 16 Blood Urea Nitrogen 61 H Creatinine 7.04 H Glucose Level 97 Calcium Level 9.4 Total Bilirubin 0.0 L Direct Bilirubin 0.00 Indirect Bilirubin 0.0 Aspartate Amino Transf (AST/SGOT) 17 Alanine Aminotransferase (ALT/SGPT) 29 Alkaline Phosphatase 44 Total Protein 6.6 Albumin 3.9 Globulin 2.70 Albumin/Globulin Ratio 1.44 Test 09/25/16 17:43 Bedside Glucose 117 Medications Current Medications Acetaminophen/ Hydrocodone Bitart ([place] (5/325)) 1 tab Q6H PRN PO MODERATE PAIN LEVEL 4-6 Last administered on 09/25/16 18:12; Admin Dose 1 TAB; Start at 17:30 Acetaminophen/ Hydrocodone Bitart ([place] (5/325)) 2 tab Q6H PRN PO SEVERE PAIN LEVEL 7-10 Last administered on 09/24/16 20:16; Admin Dose 2 TAB; Start at 17:30 Docusate Sodium (Colace) 100 mg Q12H PRN PO CONSTIPATION Last administered on 09:42; Admin Dose 100 MG; Start 09/07/16 at 17:30 Sodium Biphosphate/ Sodium Phosphate (Fleet Enema) 133 ml DAILY PRN [place] CONSTIPATION; Start 09/07/16 at 17:30 Heparin Sodium (Porcine) (Heparin (5000 Units/0.5 ml)) 5,000 unit Q12 SC Last administered on 09/25/16 08:55; Admin Dose 5,000 UNIT; Start 09/07/16 at 21:00 Folic Acid (Folic Acid) 1 mg BID PO Last administered on 09/25/16 08:21; Admin Dose 1 MG; Start 09/07/16 at 21:00 Fenofibrate (Tricor) 48 mg QAM PO Last administered on 09/25/16 08:30; Admin Dose 48 MG; Start 09/08/16 at 09:00 Linagliptin (Tradjenta) 5 mg DAILY PO Last administered on 09/25/16 08:22; Admin Dose 5 MG; Start 09/07/16 at 18:00 Salmeterol Xinafoate/ Fluticasone (Advair 250/50 Diskus) 1 inh BID INH Last administered on 09/25/16 08:25; Admin Dose 1 INH; Start 09/07/16 at 23:00 Atorvastatin Calcium (Lipitor) 40 mg QHS PO Last administered on 09/24/16 21: 21; Admin Dose 40 MG; Start 09/07/16 at 21:00 Gabapentin (Neurontin) 900 mg QHS PO Last administered on 09/24/16 21:21; Admin Dose 900 MG; Start 09/07/16 at 21:00 Miscellaneous Information 1 ea NOTE XX ; Start 09/07/16 at 18:00 Glucose (Glutose) 15 gm Q15M PRN PO DECREASED GLUCOSE; Start 09/07/16 at 18:00 Glucose (Glutose) 22.5 gm Q15M PRN PO DECREASED GLUCOSE; Start 09/07/16 at 18: 00 Dextrose (D50w Syringe) 25 ml Q15M PRN IV DECREASED GLUCOSE; Start 09/07/16 at 18:00 Dextrose (D50w Syringe) 50 ml Q15M PRN IV DECREASED GLUCOSE; Start 09/07/16 at 18:00 Glucagon (Glucagen) 1 mg Q15M PRN IM DECREASED GLUCOSE; Start 09/07/16 at 18:00 Glucose (Glutose) 15 gm Q15M PRN BUCCAL DECREASED GLUCOSE; Start 09/07/16 at 18 :00 Naloxone HCl (Narcan) 0.2 mg Q2M PRN IV DECREASED REPIRATORY RATE Last administered on 09/08/16 02:44; Admin Dose 0.2 MG; Start 09/08/16 at 02:30 Tramadol HCl (Ultram) 50 mg Q8H PRN PO PAIN Last administered on 09/16/16 12:51 ; Admin Dose 50 MG; Start 09/08/16 at 16:00 Hydromorphone HCl (Dilaudid) 0.5 mg Q2H PRN IV PAIN Last administered on 01:36; Admin Dose 0.5 MG; Start 09/09/16 at 08:30 Gabapentin (Neurontin) 300 mg ,16 PO Last administered on 09/25/16 18:12; Admin Dose 300 MG; Start 09/15/16 at 09:00 Prednisone (Prednisone) 1 mg QHS PO Last administered on 09/24/16 21:43; Admin Dose 1 MG; Start 09/14/16 at 21:00 Eye Lubricant (Artificial Tears Oph) 2 drop Q2H PRN BOTH EYES DRY EYES Last administered on 09/18/16 17:40; Admin Dose 2 DROP; Start 09/18/16 at 15:00 Diagnostic Test (Pha) (Accu-Chek) 1 ea 02 XX Last administered on 09/24/16 02: 21; Admin Dose 1 EA; Start 09/20/16 at 02:00 Epoetin César (Epogen (Esrd)) 10,000 units MoWeFr@17 SC Last administered on 09/23 16:57; Admin Dose 10,000 UNITS; Start 09/21/16 at 17:00 Metoprolol Tartrate (Lopressor) 25 mg BID PO Last administered on 09/25/16 08: 31; Admin Dose 25 MG; Start 09/21/16 at 21:00 Prednisone (Prednisone) 4 mg DAILY PO Last administered on 09/25/16 08:21; Admin Dose 4 MG; Start 09/24/16 at 09:00 Famotidine (Pepcid) 40 mg HS PO Last administered on 09/24/16 21:56; Admin Dose 40 MG; Start 09/24/16 at 21:00 Assessment/Plan Additional Assessment/Plan IMP: 1. Acute on chronic hypercapnic respiratory failure: multifactorial in etiology. Possible underlying OSH or COPD. Doubt significant [id number] diaphragmatic weakness 2. C-spine injury 3. s/p TAVR. 4. End-stage renal disease, on hemodialysis. 5. Pulmonary sarcoidosis, patient on long-term prednisone use. 6. History of hypertension. 7. Afib with RVR 8. Coronary artery disease. Status post PTCA in the past. History of CHF RECS: 1. Continue low-dose steroids 2. HD/UF 3. Aspiration precautions SAEED CERVANTES MD Sep 25, 2016 18:43
[2016-09-25 19:18] VITALS: BP 125/58; RESP 18
[2016-09-25] MEDS: ATORVASTATIN 40 MG TAB PO SCH (20:56)
[2016-09-25] MEDS: FAMOTIDINE 20 MG TAB PO SCH (20:56)
[2016-09-26] VITALS (9 sets, daily range): BP systolic 102–147; BP diastolic 49–63; PULSE 60–68; RESP 18–19
[2016-09-26] MEDS: ACCU-CHEK XX SCH (01:42)
[2016-09-26] MEDS: HYDROCODONE/APAP (5/325) TAB PO PRN ×3 (05:30→18:06)
[2016-09-26] MEDS: INSULIN ASPART [NOVOLOG] 3 ML PEN SC SCH ×4 (07:50→21:00)
--- NOTE | 2016-09-26 08:02 | CONS ---
Date/Time of Note Date/Time of Note DATE: 09/26/16 TIME: 08:00 Assessment/Plan Assessment/Plan Problems: (1) Atrial fibrillation Status: Chronic Comment: controlled Qualifiers: Atrial fibrillation type: chronic Qualified Code: I48.2 - Chronic atrial fibrillation (2) C2 cervical fracture Status: Acute Comment: await transfer to ARU Qualifiers: Encounter type: initial encounter Fracture type: closed Fracture morphology: other dens Fracture alignment: displaced Qualified Code: S12.120A - Other closed displaced odontoid fracture, initial encounter (3) ESRD (end stage renal disease) on dialysis Status: Chronic Comment: for HD today Consultation Date/Type/Reason Admit Date/Time September 07, 2016 at 16:36 Initial Consult Date 09/08/16 Type of Consultation: neph Referring Provider: TOMER GARCIA MD 24 HR Interval Summary Free Text/Dictation feels well Exam/Review of Systems Vital Signs Vitals Vital Signs Date Time Temp Pulse Resp B/P Pulse Ox O2 Delivery O2 Flow Rate FiO2 09/26/16 07:31 2.0 09/25/16 20:10 Nasal Cannula 09/25/16 19:18 98.3 61 18 125/58 99 09/22/16 19:47 21 Intake and Output 09/25/16 09/25/16 09/26/16 15:00 23:00 07:00 Intake Total 500 ml 480 ml Output Total 0 ml 0 ml Balance 500 ml 480 ml Exam Constitutional: alert, oriented Psych: no complaints Neck: other (in hard collar) Cardiovascular: irregular rhythm Extremities: normal pulses (fxn avf) Results Result Diagram: 09/25/16 0437 09/25/16 0437 Results 24 hrs Laboratory Tests Test 09/25/16 08:24 09/25/16 12:18 09/25/16 17:43 09/25/16 20:54 Bedside Glucose 86 86 117 111 Medications Medications Current Medications Acetaminophen/ Hydrocodone Bitart ([place] (5/325)) 1 tab Q6H PRN PO MODERATE PAIN LEVEL 4-6 Last administered on 09/26/16 05:30; Admin Dose 1 TAB; Start at 17:30 Acetaminophen/ Hydrocodone Bitart ([place] (5/325)) 2 tab Q6H PRN PO SEVERE PAIN LEVEL 7-10 Last administered on 09/24/16 20:16; Admin Dose 2 TAB; Start at 17:30 Docusate Sodium (Colace) 100 mg Q12H PRN PO CONSTIPATION Last administered on 09:42; Admin Dose 100 MG; Start 09/07/16 at 17:30 Sodium Biphosphate/ Sodium Phosphate (Fleet Enema) 133 ml DAILY PRN [place] CONSTIPATION; Start 09/07/16 at 17:30 Heparin Sodium (Porcine) (Heparin (5000 Units/0.5 ml)) 5,000 unit Q12 SC Last administered on 09/25/16 20:59; Admin Dose 5,000 UNIT; Start 09/07/16 at 21:00 Folic Acid (Folic Acid) 1 mg BID PO Last administered on 09/25/16 20:56; Admin Dose 1 MG; Start 09/07/16 at 21:00 Fenofibrate (Tricor) 48 mg QAM PO Last administered on 09/25/16 08:30; Admin Dose 48 MG; Start 09/08/16 at 09:00 Linagliptin (Tradjenta) 5 mg DAILY PO Last administered on 09/25/16 08:22; Admin Dose 5 MG; Start 09/07/16 at 18:00 Salmeterol Xinafoate/ Fluticasone (Advair 250/50 Diskus) 1 inh BID INH Last administered on 09/25/16 20:57; Admin Dose 1 INH; Start 09/07/16 at 23:00 Atorvastatin Calcium (Lipitor) 40 mg QHS PO Last administered on 09/25/16 20: 56; Admin Dose 40 MG; Start 09/07/16 at 21:00 Gabapentin (Neurontin) 900 mg QHS PO Last administered on 09/25/16 20:56; Admin Dose 900 MG; Start 09/07/16 at 21:00 Miscellaneous Information 1 ea NOTE XX ; Start 09/07/16 at 18:00 Glucose (Glutose) 15 gm Q15M PRN PO DECREASED GLUCOSE; Start 09/07/16 at 18:00 Glucose (Glutose) 22.5 gm Q15M PRN PO DECREASED GLUCOSE; Start 09/07/16 at 18: 00 Dextrose (D50w Syringe) 25 ml Q15M PRN IV DECREASED GLUCOSE; Start 09/07/16 at 18:00 Dextrose (D50w Syringe) 50 ml Q15M PRN IV DECREASED GLUCOSE; Start 09/07/16 at 18:00 Glucagon (Glucagen) 1 mg Q15M PRN IM DECREASED GLUCOSE; Start 09/07/16 at 18:00 Glucose (Glutose) 15 gm Q15M PRN BUCCAL DECREASED GLUCOSE; Start 09/07/16 at 18 :00 Naloxone HCl (Narcan) 0.2 mg Q2M PRN IV DECREASED REPIRATORY RATE Last administered on 09/08/16 02:44; Admin Dose 0.2 MG; Start 09/08/16 at 02:30 Tramadol HCl (Ultram) 50 mg Q8H PRN PO PAIN Last administered on 09/16/16 12:51 ; Admin Dose 50 MG; Start 09/08/16 at 16:00 Hydromorphone HCl (Dilaudid) 0.5 mg Q2H PRN IV PAIN Last administered on 01:36; Admin Dose 0.5 MG; Start 09/09/16 at 08:30 Gabapentin (Neurontin) 300 mg PO Last administered on 09/25/16 18:12; Admin Dose 300 MG; Start 09/15/16 at 09:00 Prednisone (Prednisone) 1 mg QHS PO Last administered on 09/25/16 20:56; Admin Dose 1 MG; Start 09/14/16 at 21:00 Eye Lubricant (Artificial Tears Oph) 2 drop Q2H PRN BOTH EYES DRY EYES Last administered on 09/18/16 17:40; Admin Dose 2 DROP; Start 09/18/16 at 15:00 Diagnostic Test (Pha) (Accu-Chek) 1 ea 02 XX Last administered on 09/24/16 02: 21; Admin Dose 1 EA; Start 09/20/16 at 02:00 Epoetin César (Epogen (Esrd)) 10,000 units MoWeFr@17 SC Last administered on 09/23 16:57; Admin Dose 10,000 UNITS; Start 09/21/16 at 17:00 Metoprolol Tartrate (Lopressor) 25 mg BID PO Last administered on 09/25/16 20: 57; Admin Dose 25 MG; Start 09/21/16 at 21:00 Prednisone (Prednisone) 4 mg DAILY PO Last administered on 09/25/16 08:21; Admin Dose 4 MG; Start 09/24/16 at 09:00 Famotidine (Pepcid) 40 mg HS PO Last administered on 09/25/16t 20:56; Admin Dose 40 MG; Start 09/24/16 at 21:00 NICO HAY MD Sep 26, 2016 08:02
[2016-09-26] MEDS: METOPROLOL 25 MG TAB PO SCH ×2 (09:00→21:05)
[2016-09-26] MEDS: SEVELAMER CARBONATE 0.8 GM PKT PO SCH ×3 (09:05→17:36)
[2016-09-26] MEDS: SALMETEROL/FLUTICASONE 250/50 INHA INH SCH ×2 (09:06→21:08)
[2016-09-26] MEDS: FOLIC ACID 1 MG TAB PO SCH ×2 (09:06→21:04)
[2016-09-26] MEDS: predniSONE 1 MG TAB PO SCH ×3 (09:07→21:04)
[2016-09-26] MEDS: LINAGLIPTIN 5 MG TABLET PO SCH (09:08)
[2016-09-26] MEDS: FENOFIBRATE 48 MG TAB PO SCH (09:08)
[2016-09-26] MEDS: HEPARIN 5,000 UNIT/0.5 ML VIAL SC SCH ×2 (09:12→21:10)
[2016-09-26] MEDS: GABAPENTIN 300 MG CAP PO SCH ×3 (09:13→21:04)
--- NOTE | 2016-09-26 11:07 | CONS ---
Date/Time of Note Date/Time of Note DATE: 09/26/16 TIME: 11:04 Assessment/Plan Assessment/Plan Additional Assessment/Plan Assessment and recommendations; next 1. Patient admitted with a fall resulting in C-spine fracture without any neurological sequelae. 2. Acute hypoxemic and hypercapnic respiratory failure with marked interval improvement. 3. History of other comorbidities including atrial fibrillation, end-stage renal disease, coronary artery disease, CHF and hypertension; all appear clinically compensated. Continue current treatment. Patient responding well to current treatment regimen. Consultation Date/Type/Reason Admit Date/Time September 07, 2016 at 16:36 Initial Consult Date 09/08/16 Type of Consultation: Pulmonary Referring Provider: TOMER GARCIA MD 24 HR Interval Summary Free Text/Dictation Patient condition is stable. Denies any shortness of breath, chest pain, any neck pain. Denies any numbness or any focal motor weakness. Patient able to eat well. Denies any dysphagia. General exam; elderly lady, awake alert currently in no distress. Exam/Review of Systems Vital Signs Vitals Vital Signs Date Time Temp Pulse Resp B/P Pulse Ox O2 Delivery O2 Flow Rate FiO2 09/26/16 08:26 97.8 67 18 147/63 100 09/26/16 07:31 2.0 09/25/16 20:10 Nasal Cannula 09/22/16 19:47 21 Intake and Output 09/25/16 09/25/16 09/26/16 15:00 23:00 07:00 Intake Total 500 ml 480 ml Output Total 0 ml 0 ml Balance 500 ml 480 ml Exam HEENT exam; pupils are midsize and reactive to light. No neck masses felt no thyromegaly. Suppleness of neck was not checked because patient is in C-spine collar. Pharynx is clear. Patient is edentulous. Chest examination; clear to ulceration. S1-S2 audible, no murmurs. Irregular rhythm. Abdomen examination; soft, protuberant. Nontender. No organomegaly. Bowel sounds audible. Extremity examination; no peripheral edema. Pulses 1+ bilaterally. There is an AV shunt in the left arm. ADVERTISING COORDINATOR examination; no focal deficit. Results Result Diagram: 09/25/16 0437 09/25/16 0437 Results 24 hrs Laboratory Tests Test 09/25/16 12:18 09/25/16 17:43 09/25/16 20:54 09/26/16 09:04 Bedside Glucose 86 117 111 94 Medications Medications Current Medications Acetaminophen/ Hydrocodone Bitart ([place] (5/325)) 1 tab Q6H PRN PO MODERATE PAIN LEVEL 4-6 Last administered on 09/26/16 09:19; Admin Dose 1 TAB; Start at 17:30 Acetaminophen/ Hydrocodone Bitart ([place] (5/325)) 2 tab Q6H PRN PO SEVERE PAIN LEVEL 7-10 Last administered on 09/24/16 20:16; Admin Dose 2 TAB; Start at 17:30 Docusate Sodium (Colace) 100 mg Q12H PRN PO CONSTIPATION Last administered on 09:42; Admin Dose 100 MG; Start 09/07/16 at 17:30 Sodium Biphosphate/ Sodium Phosphate (Fleet Enema) [address] CONSTIPATION; Start 09/07/16 at 17:30 Heparin Sodium (Porcine) (Heparin (5000 Units/0.5 ml)) 5,000 unit Q12 SC Last administered on 09/26/16 09:12; Admin Dose 5,000 UNIT; Start 09/07/16 at 21:00 Folic Acid (Folic Acid) 1 mg BID PO Last administered on 09/26/16 09:06; Admin Dose 1 MG; Start 09/07/16 at 21:00 Fenofibrate (Tricor) 48 mg QAM PO Last administered on 09/26/16 09:08; Admin Dose 48 MG; Start 09/08/16 at 09:00 Linagliptin (Tradjenta) 5 mg DAILY PO Last administered on 09/26/16 09:08; Admin Dose 5 MG; Start 09/07/16 at 18:00 Salmeterol Xinafoate/ Fluticasone (Advair 250/50 Diskus) 1 inh BID INH Last administered on 09/26/16 09:06; Admin Dose 1 INH; Start 09/07/16 at 23:00 Atorvastatin Calcium (Lipitor) 40 mg QHS PO Last administered on 09/25/16 20: 56; Admin Dose 40 MG; Start 09/07/16 at 21:00 Gabapentin (Neurontin) 900 mg QHS PO Last administered on 09/25/16 20:56; Admin Dose 900 MG; Start 09/07/16 at 21:00 Miscellaneous Information 1 ea NOTE XX ; Start 09/07/16 at 18:00 Glucose (Glutose) 15 gm Q15M PRN PO DECREASED GLUCOSE; Start 09/07/16 at 18:00 Glucose (Glutose) 22.5 gm Q15M PRN PO DECREASED GLUCOSE; Start 09/07/16 at 18: 00 Dextrose (D50w Syringe) 25 ml Q15M PRN IV DECREASED GLUCOSE; Start 09/07/16 at 18:00 Dextrose (D50w Syringe) 50 ml Q15M PRN IV DECREASED GLUCOSE; Start 09/07/16 at 18:00 Glucagon (Glucagen) 1 mg Q15M PRN IM DECREASED GLUCOSE; Start 09/07/16 at 18:00 Glucose (Glutose) 15 gm Q15M PRN BUCCAL DECREASED GLUCOSE; Start 09/07/16 at 18 :00 Naloxone HCl (Narcan) 0.2 mg Q2M PRN IV DECREASED REPIRATORY RATE Last administered on 09/08/16 02:44; Admin Dose 0.2 MG; Start 09/08/16 at 02:30 Tramadol HCl (Ultram) 50 mg Q8H PRN PO PAIN Last administered on 09/16/16 12:51 ; Admin Dose 50 MG; Start 09/08/16 at 16:00 Hydromorphone HCl (Dilaudid) 0.5 mg Q2H PRN IV PAIN Last administered on 01:36; Admin Dose 0.5 MG; Start 09/09/16 at 08:30 Gabapentin (Neurontin) 300 mg PO Last administered on 09/26/16 09:13; Admin Dose 300 MG; Start 09/15/16 at 09:00 Prednisone (Prednisone) 1 mg QHS PO Last administered on 09/25/16 20:56; Admin Dose 1 MG; Start 09/14/16 at 21:00 Eye Lubricant (Artificial Tears Oph) 2 drop Q2H PRN BOTH EYES DRY EYES Last administered on 09/18/16 17:40; Admin Dose 2 DROP; Start 09/18/16 at 15:00 Diagnostic Test (Pha) (Accu-Chek) 1 ea 02 XX Last administered on 09/24/16 02: 21; Admin Dose 1 EA; Start 09/20/16 at 02:00 Epoetin César (Epogen (Esrd)) 10,000 units MoWeFr@17 SC Last administered on 09/23 16:57; Admin Dose 10,000 UNITS; Start 09/21/16 at 17:00 Metoprolol Tartrate (Lopressor) 25 mg BID PO Last administered on 09/25/16 20: 57; Admin Dose 25 MG; Start 09/21/16 at 21:00 Prednisone (Prednisone) 4 mg DAILY PO Last administered on 09/26/16 09:07; Admin Dose 4 MG; Start 09/24/16 at 09:00 Famotidine (Pepcid) 40 mg HS PO Last administered on 09/25/16 20:56; Admin Dose 40 MG; Start 09/24/16 at 21:00 LAWRENCE GOODE Sep 26, 2016 11:07
[2016-09-26] MEDS: EPOETIN 10000 UNITS/1 ML INJ (ESRD) SC SCH (17:34)
--- NOTE | 2016-09-26 18:19 | PN ---
Date/Time of Note Date/Time of Note DATE: 09/26/16 TIME: 18:12 Assessment/Plan VTE Prophylaxis VTE Prophylaxis Intervention: contraindicated Lines/Catheters IV [facility] Type (from [facility]): PICC Line Central line still needed: No (There is no PICC line present still) Urinary Cath still in place: No Assessment/Plan Problems: (1) Atrial fibrillation Status: Chronic Comment: Rate is controlled. Anticoagulation in roughly 2-1/2 weeks Qualifiers: Atrial fibrillation type: chronic Qualified Code: I48.2 - Chronic atrial fibrillation (2) C2 cervical fracture Status: Acute Comment: Awaiting bed availability in the acute rehabilitation unit versus other. Please see the note from case management stating the patient was accepted to acute rehabilitation unit 3 days ago. They are waiting availability of a bed this appropriate for hemodialysis. As such are slowdown is at the acute rehab unit Qualifiers: Encounter type: initial encounter Fracture type: closed Fracture morphology: other dens Fracture alignment: displaced Qualified Code: S12.120A - Other closed displaced odontoid fracture, initial encounter (3) COPD (chronic obstructive pulmonary disease) Status: Chronic Comment: Adequately controlled. Qualifiers: COPD type: emphysema Emphysema type: panlobular Qualified Code: J43.1 - Panlobular emphysema (4) Sarcoidosis Status: Chronic Comment: Stable on treatment (5) ESRD (end stage renal disease) on dialysis Status: Chronic Comment: As per nephrology continue hemodialysis TI week (6) Diabetes mellitus type 2 in obese Status: Chronic Comment: Excellent control (7) Hypertension associated with chronic kidney disease due to type 2 diabetes mellitus Status: Chronic Comment: Adequate control (8) Hyperlipidemia Status: Chronic Comment: Stable on statin therapy Qualifiers: Hyperlipidemia type: pure hypercholesterolemia Qualified Code: E78.00 - Pure hypercholesterolemia (9) Obstructive sleep apnea Status: Chronic Comment: Adequate control (10) Status post transcatheter aortic valve replacement (TAVR) using bioprosthesis Status: Acute Comment: Fully operational and stable (11) Diastolic dysfunction Status: Chronic Comment: Stable and beta-blockade Subjective 24 Hr Interval Summary Free Text/Dictation Patient reports she is having difficulty hearing out of the right ear. Otherwise no new complaints. Constitutional: no complaints Respiratory: no complaints Cardiovascular: no complaints Gastrointestinal: no complaints Genitourinary: no complaints Musculoskeletal: no complaints Exam/Review of Systems Vital Signs Vitals Vital Signs Date Time Temp Pulse Resp B/P Pulse Ox O2 Delivery O2 Flow Rate FiO2 09/26/16 17:00 63 18 09/26/16 08:26 97.8 147/63 100 09/26/16 07:31 2.0 09/25/16 20:10 Nasal Cannula 09/22/16 19:47 21 Intake and Output 09/25/16 09/25/16 09/26/16 15:00 23:00 07:00 Intake Total 500 ml 480 ml Output Total 0 ml 0 ml Balance 500 ml 480 ml Exam Constitutional: alert, oriented Head: atraumatic, normocephalic ENMT: other (Right auditory canal obstructed by cerumen) Neck: non-tender, supple Respiratory: clear to auscultation, normal air movement Cardiovascular: irregular rhythm, nl pulses Gastrointestinal: nl liver, spleen, non-tender, soft Results Result Diagram: 09/25/167 09/25/16436 Results 24 hrs Laboratory Tests Test 09/25/16 20:54 09/26/16 09:04 09/26/16 12:32 09/26/16 17:32 Bedside Glucose 111 94 110 179 Medications Medications Current Medications Acetaminophen/ Hydrocodone Bitart ([place] (5/325)) 1 tab Q6H PRN PO MODERATE PAIN LEVEL 4-6 Last administered on 09/26/16 18:06; Admin Dose 1 TAB; Start at 17:30 Acetaminophen/ Hydrocodone Bitart ([place] (5/325)) 2 tab Q6H PRN PO SEVERE PAIN LEVEL 7-10 Last administered on 09/24/16 20:16; Admin Dose 2 TAB; Start at 17:30 Docusate Sodium (Colace) 100 mg Q12H PRN PO CONSTIPATION Last administered on 09:42; Admin Dose 100 MG; Start 09/07/16 at 17:30 Sodium Biphosphate/ Sodium Phosphate (Fleet Enema) 133 ml DAILY PRN [place] CONSTIPATION; Start 09/07/16 at 17:30 Heparin Sodium (Porcine) (Heparin (5000 Units/0.5 ml)) 5,000 unit Q12 SC Last administered on 09/26/16 09:12; Admin Dose 5,000 UNIT; Start 09/07/16 at 21:00 Folic Acid (Folic Acid) 1 mg BID PO Last administered on 09/26/16 09:06; Admin Dose 1 MG; Start 09/07/16 at 21:00 Fenofibrate (Tricor) 48 mg QAM PO Last administered on 09/26/16 09:08; Admin Dose 48 MG; Start 09/08/16 at 09:00 Linagliptin (Tradjenta) 5 mg DAILY PO Last administered on 09/26/16 09:08; Admin Dose 5 MG; Start 09/07/16 at 18:00 Salmeterol Xinafoate/ Fluticasone (Advair 250/50 Diskus) 1 inh BID INH Last administered on 09/26/16 09:06; Admin Dose 1 INH; Start 09/07/16 at 23:00 Atorvastatin Calcium (Lipitor) 40 mg QHS PO Last administered on 09/25/16 20: 56; Admin Dose 40 MG; Start 09/07/16 at 21:00 Gabapentin (Neurontin) 900 mg QHS PO Last administered on 09/25/16 20:56; Admin Dose 900 MG; Start 09/07/16 at 21:00 Miscellaneous Information 1 ea NOTE XX ; Start 09/07/16 at 18:00 Glucose (Glutose) 15 gm Q15M PRN PO DECREASED GLUCOSE; Start 09/07/16 at 18:00 Glucose (Glutose) 22.5 gm Q15M PRN PO DECREASED GLUCOSE; Start 09/07/16 at 18: 00 Dextrose (D50w Syringe) 25 ml Q15M PRN IV DECREASED GLUCOSE; Start 09/07/16 at 18:00 Dextrose (D50w Syringe) 50 ml Q15M PRN IV DECREASED GLUCOSE; Start 09/07/16 at 18:00 Glucagon (Glucagen) 1 mg Q15M PRN IM DECREASED GLUCOSE; Start 09/07/16 at 18:00 Glucose (Glutose) 15 gm Q15M PRN BUCCAL DECREASED GLUCOSE; Start 09/07/16 at 18 :00 Naloxone HCl (Narcan) 0.2 mg Q2M PRN IV DECREASED REPIRATORY RATE Last administered on 09/08/16 02:44; Admin Dose 0.2 MG; Start 09/08/16 at 02:30 Tramadol HCl (Ultram) 50 mg Q8H PRN PO PAIN Last administered on 09/16/16 12:51 ; Admin Dose 50 MG; Start 09/08/16 at 16:00 Hydromorphone HCl (Dilaudid) 0.5 mg Q2H PRN IV PAIN Last administered on 01:36; Admin Dose 0.5 MG; Start 09/09/16 at 08:30 Gabapentin (Neurontin) 300 mg 16 PO Last administered on 09/26/16 09:13; Admin Dose 300 MG; Start 09/15/16 at 09:00 Prednisone (Prednisone) 1 mg QHS PO Last administered on 09/25/16 20:56; Admin Dose 1 MG; Start 09/14/16 at 21:00 Eye Lubricant (Artificial Tears Oph) 2 drop Q2H PRN BOTH EYES DRY EYES Last administered on 09/18/16 17:40; Admin Dose 2 DROP; Start 09/18/16 at 15:00 Diagnostic Test (Pha) (Accu-Chek) 1 ea 02 XX Last administered on 09/24/16 02: 21; Admin Dose 1 EA; Start 09/20/16 at 02:00 Epoetin César (Epogen (Esrd)) 10,000 units MoWeFr@17 SC Last administered on 17:34; Admin Dose 10,000 UNITS; Start 09/21/16 at 17:00 Metoprolol Tartrate (Lopressor) 25 mg BID PO Last administered on 09/25/16 20: 57; Admin Dose 25 MG; Start 09/21/16 at 21:00 Prednisone (Prednisone) 4 mg DAILY PO Last administered on 09/26/16 09:07; Admin Dose 4 MG; Start 09/24/16 at 09:00 Famotidine (Pepcid) 40 mg HS PO Last administered on 09/25/16 20:56; Admin Dose 40 MG; Start 09/24/16 at 21:00 TOMER GARCIA MD Sep 26, 2016 18:19
[2016-09-26] MEDS: ATORVASTATIN 40 MG TAB PO SCH (21:02)
[2016-09-26] MEDS: FAMOTIDINE 20 MG TAB PO SCH (21:02)
[2016-09-26] MEDS: CARBAMIDE PEROXIDE 6.5% 15ML OTIC RIGHT EAR SCH (21:42)
[2016-09-27] MEDS: ACCU-CHEK XX SCH (02:00)
[2016-09-27] MEDS: INSULIN ASPART [NOVOLOG] 3 ML PEN SC SCH ×4 (07:50→20:48)
--- NOTE | 2016-09-27 08:02 | CONS ---
Date/Time of Note Date/Time of Note DATE: 09/27/16 TIME: 07:59 Assessment/Plan Assessment/Plan Problems: (1) Atrial fibrillation Status: Chronic Comment: rate controlled, at baseline... asx Qualifiers: Atrial fibrillation type: chronic Qualified Code: I48.2 - Chronic atrial fibrillation (2) C2 cervical fracture Status: Acute Comment: in collar...waiting for ARU transfer Qualifiers: Encounter type: initial encounter Fracture type: closed Fracture morphology: other dens Fracture alignment: displaced Qualified Code: S12.120A - Other closed displaced odontoid fracture, initial encounter (3) ESRD (end stage renal disease) on dialysis Status: Chronic Comment: nas HD yest... for Rx in am tomorrow Consultation Date/Type/Reason Admit Date/Time September 07, 2016 at 16:36 Initial Consult Date 09/08/16 Type of Consultation: neph Referring Provider: TOMER GARCIA MD 24 HR Interval Summary Free Text/Dictation waiting/hoping to move to the ARU Exam/Review of Systems Vital Signs Vitals Vital Signs Date Time Temp Pulse Resp B/P Pulse Ox O2 Delivery O2 Flow Rate FiO2 09/27/16 02:15 4.0 09/26/16 21:09 98.1 66 19 141/63 99 09/26/16 20:50 Nasal Cannula Intake and Output 09/26/16 09/26/16 09/27/16 14:59 22:59 06:59 Intake Total 1460 ml 420 ml Output Total 3500 ml Balance -2040 ml 420 ml Exam Constitutional: alert, oriented Psych: no complaints Neck: other (in hard collar) Cardiovascular: irregular rhythm Extremities: normal pulses (fxn avf) Results Result Diagram: 09/25/16 0437 09/25/16 0437 Results 24 hrs Laboratory Tests Test 09/26/16 09:04 09/26/16 12:32 09/26/16 17:32 09/26/16 21:07 Bedside Glucose 94 110 179 159 Test 09/27/16 07:46 Bedside Glucose 89 Medications Medications Current Medications Acetaminophen/ Hydrocodone Bitart ([place] (5/325)) 1 tab Q6H PRN PO MODERATE PAIN LEVEL 4-6 Last administered on 09/26/16t 18:06; Admin Dose 1 TAB; Start at 17:30 Acetaminophen/ Hydrocodone Bitart ([place] (5/325)) 2 tab Q6H PRN PO SEVERE PAIN LEVEL 7-10 Last administered on 09/24/16 20:16; Admin Dose 2 TAB; Start at 17:30 Docusate Sodium (Colace) 100 mg Q12H PRN PO CONSTIPATION Last administered on 09:42; Admin Dose 100 MG; Start 09/07/16 at 17:30 Sodium Biphosphate/ Sodium Phosphate (Fleet Enema) 133 ml DAILY PRN [place] CONSTIPATION; Start 09/07/16 at 17:30 Heparin Sodium (Porcine) (Heparin (5000 Units/0.5 ml)) 5,000 unit Q12 SC Last administered on 09/26/16 21:10; Admin Dose 5,000 UNIT; Start 09/07/16 at 21:00 Folic Acid (Folic Acid) 1 mg BID PO Last administered on 09/26/16 21:04; Admin Dose 1 MG; Start 09/07/16 at 21:00 Fenofibrate (Tricor) 48 mg QAM PO Last administered on 09/26/16 09:08; Admin Dose 48 MG; Start 09/08/16 at 09:00 Linagliptin (Tradjenta) 5 mg DAILY PO Last administered on 09/26/16 09:08; Admin Dose 5 MG; Start 09/07/16 at 18:00 Salmeterol Xinafoate/ Fluticasone (Advair 250/50 Diskus) 1 inh BID INH Last administered on 09/26/16 21:08; Admin Dose 1 INH; Start 09/07/16 at 23:00 Atorvastatin Calcium (Lipitor) 40 mg QHS PO Last administered on 09/26/16 21: 02; Admin Dose 40 MG; Start 09/07/16 at 21:00 Gabapentin (Neurontin) 900 mg QHS PO Last administered on 09/26/16 21:04; Admin Dose 900 MG; Start 09/07/16 at 21:00 Miscellaneous Information 1 ea NOTE XX ; Start 09/07/16 at 18:00 Glucose (Glutose) 15 gm Q15M PRN PO DECREASED GLUCOSE; Start 09/07/16 at 18:00 Glucose (Glutose) 22.5 gm Q15M PRN PO DECREASED GLUCOSE; Start 09/07/16 at 18: 00 Dextrose (D50w Syringe) 25 ml Q15M PRN IV DECREASED GLUCOSE; Start 09/07/16 at 18:00 Dextrose (D50w Syringe) 50 ml Q15M PRN IV DECREASED GLUCOSE; Start 09/07/16 at 18:00 Glucagon (Glucagen) 1 mg Q15M PRN IM DECREASED GLUCOSE; Start 09/07/16 at 18:00 Glucose (Glutose) 15 gm Q15M PRN BUCCAL DECREASED GLUCOSE; Start 09/07/16 at 18 :00 Naloxone HCl (Narcan) 0.2 mg Q2M PRN IV DECREASED REPIRATORY RATE Last administered on 09/08/16 02:44; Admin Dose 0.2 MG; Start 09/08/16 at 02:30 Tramadol HCl (Ultram) 50 mg Q8H PRN PO PAIN Last administered on 09/16/16 12:51 ; Admin Dose 50 MG; Start 09/08/16 at 16:00 Hydromorphone HCl (Dilaudid) 0.5 mg Q2H PRN IV PAIN Last administered on 01:36; Admin Dose 0.5 MG; Start 09/09/16 at 08:30 Gabapentin (Neurontin) 300 mg PO Last administered on 09/26/16 09:13; Admin Dose 300 MG; Start 09/15/16 at 09:00 Prednisone (Prednisone) 1 mg QHS PO Last administered on 09/26/16 21:04; Admin Dose 1 MG; Start 09/14/16 at 21:00 Eye Lubricant (Artificial Tears Oph) 2 drop Q2H PRN BOTH EYES DRY EYES Last administered on 09/18/16 17:40; Admin Dose 2 DROP; Start 09/18/16 at 15:00 Diagnostic Test (Pha) (Accu-Chek) 1 ea 02 XX Last administered on 09/24/16 02: 21; Admin Dose 1 EA; Start 09/20/16 at 02:00 Epoetin César (Epogen (Esrd)) 10,000 units MoWeFr@17 SC Last administered on 17:34; Admin Dose 10,000 UNITS; Start 09/21/16 at 17:00 Metoprolol Tartrate (Lopressor) 25 mg BID PO Last administered on 09/26/16 21: 05; Admin Dose 25 MG; Start 09/21/16 at 21:00 Prednisone (Prednisone) 4 mg DAILY PO Last administered on 09/26/16 09:07; Admin Dose 4 MG; Start 09/24/16 at 09:00 Famotidine (Pepcid) 40 mg HS PO Last administered on 09/26/16 21:02; Admin Dose 40 MG; Start 09/24/16 at 21:00 Carbamide Peroxide (Debrox Otic) 3 drop BID RIGHT EAR Last administered on 09/26 21:42; Admin Dose 3 DROP; Start 09/26/16 at 21:00; Stop 09/29/16 at 20:59 NICO HAY MD Sep 27, 2016 08:02
[2016-09-27 08:03] VITALS: BP 135/67; RESP 19
[2016-09-27] MEDS: FOLIC ACID 1 MG TAB PO SCH ×2 (08:59→20:50)
[2016-09-27] MEDS: LINAGLIPTIN 5 MG TABLET PO SCH (09:00)
[2016-09-27] MEDS: SEVELAMER CARBONATE 0.8 GM PKT PO SCH ×3 (09:00→16:39)
[2016-09-27] MEDS: METOPROLOL 25 MG TAB PO SCH ×2 (09:00→20:51)
[2016-09-27] MEDS: HYDROCODONE/APAP (5/325) TAB PO PRN ×2 (09:00→15:13)
[2016-09-27] MEDS: SALMETEROL/FLUTICASONE 250/50 INHA INH SCH ×2 (09:00→20:51)
[2016-09-27] MEDS: CARBAMIDE PEROXIDE 6.5% 15ML OTIC RIGHT EAR SCH ×2 (09:00→20:55)
[2016-09-27] MEDS: FENOFIBRATE 48 MG TAB PO SCH (09:00)
[2016-09-27] MEDS: predniSONE 1 MG TAB PO SCH ×3 (09:00→20:50)
[2016-09-27] MEDS: HEPARIN 5,000 UNIT/0.5 ML VIAL SC SCH ×2 (09:02→20:54)
[2016-09-27] MEDS: GABAPENTIN 300 MG CAP PO SCH ×3 (09:03→20:49)
--- NOTE | 2016-09-27 11:16 | CONS ---
Date/Time of Note Date/Time of Note DATE: 09/27/16 TIME: 11:15 Consult Date/Type/Reason Admit Date/Time September 07, 2016 at 16:36 Initial Consult Date 09/08/16 Type of Consultation: Pulmonary Ordering Provider: TOMER GARCIA MD Subjective Patient appears comfortable at rest no acute distress no overnight events. Objective Vital Signs Date Time Temp Pulse Resp B/P Pulse Ox O2 Delivery O2 Flow Rate FiO2 09/27/16 08:03 97.5 72 19 135/67 100 09/27/16 02:15 4.0 09/26/16 20:50 Nasal Cannula Intake and Output 09/26/16 09/26/16 09/27/16 15:00 23:00 07:00 Intake Total 1460 ml 420 ml Output Total 3500 ml Balance -2040 ml 420 ml Exam GENERAL: Elderly lady with c-collar in place VITAL SIGNS: per chart NECK: Supple. No JVD or lymphadenopathy. CARDIAC EXAM: S1, S2. No added sounds or murmurs. CHEST: clear bilaterally, No added sounds, rales or wheezes ABDOMEN: Soft, nontender. No guarding or rebound. EXTREMITIES: No cyanosis, clubbing or edema. NEUROLOGIC: Generalized weakness. No focal deficits. Results/Medications Result Diagram: 09/25/167 09/25/16 0437 Results 24 hrs Laboratory Tests Test 09/26/16 12:32 09/26/16 17:32 09/26/16 21:07 09/27/16 07:46 Bedside Glucose 110 179 159 89 Test 09/27/16 11:08 Bedside Glucose 126 Medications Current Medications Acetaminophen/ Hydrocodone Bitart ([place] (5/325)) 1 tab Q6H PRN PO MODERATE PAIN LEVEL 4-6 Last administered on 09/27/16 09:00; Admin Dose 1 TAB; Start at 17:30 Acetaminophen/ Hydrocodone Bitart ([place] (5/325)) 2 tab Q6H PRN PO SEVERE PAIN LEVEL 7-10 Last administered on 09/24/16 20:16; Admin Dose 2 TAB; Start at 17:30 Docusate Sodium (Colace) 100 mg Q12H PRN PO CONSTIPATION Last administered on 09:42; Admin Dose 100 MG; Start 09/07/16 at 17:30 Sodium Biphosphate/ Sodium Phosphate (Fleet Enema) 133 ml DAILY PRN [place] CONSTIPATION; Start 09/07/16 at 17:30 Heparin Sodium (Porcine) (Heparin (5000 Units/0.5 ml)) 5,000 unit Q12 SC Last administered on 09/27/16 09:02; Admin Dose 5,000 UNIT; Start 09/07/16 at 21:00 Folic Acid (Folic Acid) 1 mg BID PO Last administered on 09/27/16 08:59; Admin Dose 1 MG; Start 09/07/16 at 21:00 Fenofibrate (Tricor) 48 mg QAM PO Last administered on 09/27/16 09:00; Admin Dose 48 MG; Start 09/08/16 at 09:00 Linagliptin (Tradjenta) 5 mg DAILY PO Last administered on 09/27/16 09:00; Admin Dose 5 MG; Start 09/07/16 at 18:00 Salmeterol Xinafoate/ Fluticasone (Advair 250/50 Diskus) 1 inh BID INH Last administered on 09/26/16 21:08; Admin Dose 1 INH; Start 09/07/16 at 23:00 Atorvastatin Calcium (Lipitor) 40 mg QHS PO Last administered on 09/26/16 21: 02; Admin Dose 40 MG; Start 09/07/16 at 21:00 Gabapentin (Neurontin) 900 mg QHS PO Last administered on 09/26/16 21:04; Admin Dose 900 MG; Start 09/07/16 at 21:00 Miscellaneous Information 1 ea NOTE XX ; Start 09/07/16 at 18:00 Glucose (Glutose) 15 gm Q15M PRN PO DECREASED GLUCOSE; Start 09/07/16 at 18:00 Glucose (Glutose) 22.5 gm Q15M PRN PO DECREASED GLUCOSE; Start 09/07/16 at 18: 00 Dextrose (D50w Syringe) 25 ml Q15M PRN IV DECREASED GLUCOSE; Start 09/07/16 at 18:00 Dextrose (D50w Syringe) 50 ml Q15M PRN IV DECREASED GLUCOSE; Start 09/07/16 at 18:00 Glucagon (Glucagen) 1 mg Q15M PRN IM DECREASED GLUCOSE; Start 09/07/16 at 18:00 Glucose (Glutose) 15 gm Q15M PRN BUCCAL DECREASED GLUCOSE; Start 09/07/16 at 18 :00 Naloxone HCl (Narcan) 0.2 mg Q2M PRN IV DECREASED REPIRATORY RATE Last administered on 09/08/16 02:44; Admin Dose 0.2 MG; Start 09/08/16 at 02:30 Tramadol HCl (Ultram) 50 mg Q8H PRN PO PAIN Last administered on 09/16/16 12:51 ; Admin Dose 50 MG; Start 09/08/16 at 16:00 Hydromorphone HCl (Dilaudid) 0.5 mg Q2H PRN IV PAIN Last administered on 01:36; Admin Dose 0.5 MG; Start 09/09/16 at 08:30 Gabapentin (Neurontin) 300 mg PO Last administered on 09/27/16 09:03; Admin Dose 300 MG; Start 09/15/16 at 09:00 Prednisone (Prednisone) 1 mg QHS PO Last administered on 09/26/16 21:04; Admin Dose 1 MG; Start 09/14/16 at 21:00 Eye Lubricant (Artificial Tears Oph) 2 drop Q2H PRN BOTH EYES DRY EYES Last administered on 09/18/16 17:40; Admin Dose 2 DROP; Start 09/18/16 at 15:00 Diagnostic Test (Pha) (Accu-Chek) 1 ea 02 XX Last administered on 09/24/16 02: 21; Admin Dose 1 EA; Start 09/20/16 at 02:00 Epoetin César (Epogen (Esrd)) 10,000 units MoWeFr@17 SC Last administered on 17:34; Admin Dose 10,000 UNITS; Start 09/21/16 at 17:00 Metoprolol Tartrate (Lopressor) 25 mg BID PO Last administered on 09/26/16 21: 05; Admin Dose 25 MG; Start 09/21/16 at 21:00 Prednisone (Prednisone) 4 mg DAILY PO Last administered on 09/27/16 09:00; Admin Dose 4 MG; Start 09/24/16 at 09:00 Famotidine (Pepcid) 40 mg HS PO Last administered on 09/26/16 21:02; Admin Dose 40 MG; Start 09/24/16 at 21:00 Carbamide Peroxide (Debrox Otic) 3 drop BID RIGHT EAR Last administered on 09/26t 21:42; Admin Dose 3 DROP; Start 09/26/16 at 21:00; Stop 09/29/16 at 20:59 Assessment/Plan Chief Complaint/Hosp Course IMP: 1. Acute on chronic hypercapnic respiratory failure: multifactorial in etiology. 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 2. C-spine injury-- 3. s/p TAVR. 4. End-stage renal disease, on hemodialysis. 5. Pulmonary sarcoidosis, patient on long-term prednisone use. 6. History of hypertension. 7. Afib with RVR 8. Coronary artery disease. Status post PTCA in the past. History of CHF RECS: 1. Continue low-dose steroids 2. Continue hemodialysis 3. Orthopedic recommendations continue C-spine collar 4. Aspiration precautions 5. DVT and GI prophylaxis Disposition Continue current care Problems: DEB[facility] HERN[facility]NDEZ [facility] Sep 27, 2016 11:16
--- NOTE | 2016-09-27 13:44 | PN ---
Date/Time of Note Date/Time of Note DATE: 09/27/16 TIME: 13:41 Assessment/Plan VTE Prophylaxis VTE Prophylaxis Intervention: contraindicated Lines/Catheters IV Catheter Type (from Nrs): Saline Lock Central line still needed: No Urinary Cath still in place: No Assessment/Plan Problems: (1) Atrial fibrillation Status: Chronic Comment: Stable and rate controlled. Anticoagulation roughly 2 weeks which should allow enough time to pass or not to worry about bleeding at the site of the C2 dens fracture Qualifiers: Atrial fibrillation type: chronic Qualified Code: I48.2 - Chronic atrial fibrillation (2) C2 cervical fracture Status: Acute Comment: As above. Continue the hard cervical collar physical therapy. A bed is opening up and in the acute rehabilitation unit for dialysis patients tomorrow Qualifiers: Encounter type: initial encounter Fracture type: closed Fracture morphology: other dens Fracture alignment: displaced Qualified Code: S12.120A - Other closed displaced odontoid fracture, initial encounter (3) COPD (chronic obstructive pulmonary disease) Status: Chronic Comment: Stable and compensated on current medication regimen. Qualifiers: COPD type: emphysema Emphysema type: panlobular Qualified Code: J43.1 - Panlobular emphysema (4) Sarcoidosis Status: Chronic Comment: Low-dose steroid therapy continues. (5) ESRD (end stage renal disease) on dialysis Status: Chronic Comment: As per nephrology continue with hemodialysis 3 days a week (6) Diabetes mellitus type 2 in obese Status: Chronic Comment: Well-controlled on standard dose single agent therapy (7) Hypertension associated with chronic kidney disease due to type 2 diabetes mellitus Status: Chronic Comment: Adequate control (8) Obstructive sleep apnea Status: Chronic Comment: Noted. The patient again declines nocturnal BiPAP (9) Hyperlipidemia Status: Chronic Comment: On statin therapy Qualifiers: Hyperlipidemia type: pure hypercholesterolemia Qualified Code: E78.00 - Pure hypercholesterolemia (10) Status post transcatheter aortic valve replacement (TAVR) using bioprosthesis Status: Acute Comment: Operational and stable. (11) Presence of coronary angioplasty implant and graft Status: Chronic Comment: Quiescent and without symptoms. Subjective 24 Hr Interval Summary Free Text/Dictation Patient reports she still has a decent degree of pain however her pain is very slowly but steadily improving. Physical therapy is working with her and she is coming along slowly. Constitutional: no complaints Respiratory: no complaints Cardiovascular: no complaints Gastrointestinal: no complaints Genitourinary: no complaints Exam/Review of Systems Vital Signs Vitals Vital Signs Date Time Temp Pulse Resp B/P Pulse Ox O2 Delivery O2 Flow Rate FiO2 09/27/16 11:09 Nasal Cannula 2.0 09/27/16 08:03 97.5 72 19 135/67 100 Intake and Output 09/26/16 09/26/16 09/27/16 15:00 23:00 07:00 Intake Total 1460 ml 420 ml Output Total 3500 ml Balance -2040 ml 420 ml Exam Constitutional: alert, oriented Respiratory: clear to auscultation, normal air movement Cardiovascular: nl pulses, regular rate and rhythm Gastrointestinal: nl liver, spleen, non-tender, soft Results Result Diagram: 09/25/1643609/25/16436 Results 24 hrs Laboratory Tests Test 09/26/16 17:32 09/26/16 21:07 09/27/16 07:46 09/27/16 11:08 Bedside Glucose 179 159 89 126 Medications Medications Current Medications Acetaminophen/ Hydrocodone Bitart ([place] (5/325)) 1 tab Q6H PRN PO MODERATE PAIN LEVEL 4-6 Last administered on 09/27/16 09:00; Admin Dose 1 TAB; Start at 17:30 Acetaminophen/ Hydrocodone Bitart ([place] (5/325)) 2 tab Q6H PRN PO SEVERE PAIN LEVEL 7-10 Last administered on 09/24/16 20:16; Admin Dose 2 TAB; Start at 17:30 Docusate Sodium (Colace) 100 mg Q12H PRN PO CONSTIPATION Last administered on 09:42; Admin Dose 100 MG; Start 09/07/16 at 17:30 Sodium Biphosphate/ Sodium Phosphate (Fleet Enema) [address] CONSTIPATION; Start 09/07/16 at 17:30 Heparin Sodium (Porcine) (Heparin (5000 Units/0.5 ml)) 5,000 unit Q12 SC Last administered on 09/27/16 09:02; Admin Dose 5,000 UNIT; Start 09/07/16 at 21:00 Folic Acid (Folic Acid) 1 mg BID PO Last administered on 09/27/16 08:59; Admin Dose 1 MG; Start 09/07/16 at 21:00 Fenofibrate (Tricor) 48 mg QAM PO Last administered on 09/27/16 09:00; Admin Dose 48 MG; Start 09/08/16 at 09:00 Linagliptin (Tradjenta) 5 mg DAILY PO Last administered on 09/27/16 09:00; Admin Dose 5 MG; Start 09/07/16 at 18:00 Salmeterol Xinafoate/ Fluticasone (Advair 250/50 Diskus) 1 inh BID INH Last administered on 09/26/16 21:08; Admin Dose 1 INH; Start 09/07/16 at 23:00 Atorvastatin Calcium (Lipitor) 40 mg QHS PO Last administered on 09/26/16 21: 02; Admin Dose 40 MG; Start 09/07/16 at 21:00 Gabapentin (Neurontin) 900 mg QHS PO Last administered on 09/26/16 21:04; Admin Dose 900 MG; Start 09/07/16 at 21:00 Miscellaneous Information 1 ea NOTE XX ; Start 09/07/16 at 18:00 Glucose (Glutose) 15 gm Q15M PRN PO DECREASED GLUCOSE; Start 09/07/16 at 18:00 Glucose (Glutose) 22.5 gm Q15M PRN PO DECREASED GLUCOSE; Start 09/07/16 at 18: 00 Dextrose (D50w Syringe) 25 ml Q15M PRN IV DECREASED GLUCOSE; Start 09/07/16 at 18:00 Dextrose (D50w Syringe) 50 ml Q15M PRN IV DECREASED GLUCOSE; Start 09/07/16 at 18:00 Glucagon (Glucagen) 1 mg Q15M PRN IM DECREASED GLUCOSE; Start 09/07/16 at 18:00 Glucose (Glutose) 15 gm Q15M PRN BUCCAL DECREASED GLUCOSE; Start 09/07/16 at 18 :00 Naloxone HCl (Narcan) 0.2 mg Q2M PRN IV DECREASED REPIRATORY RATE Last administered on 09/08/16 02:44; Admin Dose 0.2 MG; Start 09/08/16 at 02:30 Tramadol HCl (Ultram) 50 mg Q8H PRN PO PAIN Last administered on 09/16/16 12:51 ; Admin Dose 50 MG; Start 09/08/16 at 16:00 Hydromorphone HCl (Dilaudid) 0.5 mg Q2H PRN IV PAIN Last administered on 01:36; Admin Dose 0.5 MG; Start 09/09/16 at 08:30 Gabapentin (Neurontin) 300 mg PO Last administered on 09/27/16 09:03; Admin Dose 300 MG; Start 09/15/16 at 09:00 Prednisone (Prednisone) 1 mg QHS PO Last administered on 09/26/16 21:04; Admin Dose 1 MG; Start 09/14/16 at 21:00 Eye Lubricant (Artificial Tears Oph) 2 drop Q2H PRN BOTH EYES DRY EYES Last administered on 09/18/16 17:40; Admin Dose 2 DROP; Start 09/18/16 at 15:00 Diagnostic Test (Pha) (Accu-Chek) 1 ea 02 XX Last administered on 09/24/16 02: 21; Admin Dose 1 EA; Start 09/20/16 at 02:00 Epoetin César (Epogen (Esrd)) 10,000 units MoWeFr@17 SC Last administered on 17:34; Admin Dose 10,000 UNITS; Start 09/21/16 at 17:00 Metoprolol Tartrate (Lopressor) 25 mg BID PO Last administered on 09/27/16 09: 00; Admin Dose 25 MG; Start 09/21/16 at 21:00 Prednisone (Prednisone) 4 mg DAILY PO Last administered on 09/27/16 09:00; Admin Dose 4 MG; Start 09/24/16 at 09:00 Famotidine (Pepcid) 40 mg HS PO Last administered on 09/26/16 21:02; Admin Dose 40 MG; Start 09/24/16 at 21:00 Carbamide Peroxide (Debrox Otic) 3 drop BID RIGHT EAR Last administered on 09/27 09:00; Admin Dose 3 DROP; Start 09/26/16 at 21:00; Stop 09/29/16 at 20:59 TOMER GARCIA MD Sep 27, 2016 13:44
[2016-09-27 19:46] VITALS: BP 128/78; RESP 20
[2016-09-27] MEDS: ATORVASTATIN 40 MG TAB PO SCH (20:49)
[2016-09-27] MEDS: FAMOTIDINE 20 MG TAB PO SCH (20:50)
[2016-09-28] VITALS (10 sets, daily range): BP systolic 117–140; BP diastolic 48–81; PULSE 71–81; RESP 18
[2016-09-28] MEDS: ACCU-CHEK XX SCH (02:00)
[2016-09-28] MEDS: HYDROCODONE/APAP (5/325) TAB PO PRN ×2 (05:51→21:08)
--- NOTE | 2016-09-28 07:46 | CONS ---
Date/Time of Note Date/Time of Note DATE: 09/28/16 TIME: 07:45 Assessment/Plan Assessment/Plan Additional Assessment/Plan 1. CX spine fx, stable, strength overall improving 2. CKD, to be dialzyed today 3. Labs rev Consultation Date/Type/Reason Admit Date/Time September 07, 2016 at 16:36 Initial Consult Date 09/08/16 Type of Consultation: Pulmonary Referring Provider: TOMER GARCIA MD Detailed Summary Respiratory: No shortness of breath Cardiovascular: No chest pain, No orthopenea Gastrointestinal: no complaints Genitourinary: no complaints Musculoskeletal: neck pain (less neck pain) Exam/Review of Systems Vital Signs Vitals Vital Signs Date Time Temp Pulse Resp B/P Pulse Ox O2 Delivery O2 Flow Rate FiO2 09/28/16 01:56 2.0 09/27/16 20:40 Nasal Cannula 09/27/16 19:46 98.6 75 20 128/78 98 Intake and Output 09/27/16 09/27/16 09/28/16 15:00 23:00 07:00 Intake Total 480 ml Balance 480 ml Exam Respiratory: clear to auscultation Cardiovascular: regular rate and rhythm Gastrointestinal: soft Extremities: No edema 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: No focal weakness Results Result Diagram: 09/25/16 0437 09/25/16 0437 Results 24 hrs Laboratory Tests Test 09/27/16 07:46 09/27/16 11:08 09/27/16 17:28 09/27/16 20:48 Bedside Glucose 89 126 113 134 Medications Medications Current Medications Acetaminophen/ Hydrocodone Bitart ([place] (5/325)) 1 tab Q6H PRN PO MODERATE PAIN LEVEL 4-6 Last administered on 09/27/16 09:00; Admin Dose 1 TAB; Start at 17:30 Acetaminophen/ Hydrocodone Bitart ([place] (5/325)) 2 tab Q6H PRN PO SEVERE PAIN LEVEL 7-10 Last administered on 09/28/16 05:51; Admin Dose 2 TAB; Start at 17:30 Docusate Sodium (Colace) 100 mg Q12H PRN PO CONSTIPATION Last administered on 09:42; Admin Dose 100 MG; Start 09/07/16 at 17:30 Sodium Biphosphate/ Sodium Phosphate (Fleet Enema) 133 ml DAILY PRN [place] CONSTIPATION; Start 09/07/16 at 17:30 Heparin Sodium (Porcine) (Heparin (5000 Units/0.5 ml)) 5,000 unit Q12 SC Last administered on 09/27/16 20:54; Admin Dose 5,000 UNIT; Start 09/07/16 at 21:00 Folic Acid (Folic Acid) 1 mg BID PO Last administered on 09/27/16 20:50; Admin Dose 1 MG; Start 09/07/16 at 21:00 Fenofibrate (Tricor) 48 mg QAM PO Last administered on 09/27/16 09:00; Admin Dose 48 MG; Start 09/08/16 at 09:00 Linagliptin (Tradjenta) 5 mg DAILY PO Last administered on 09/27/16 09:00; Admin Dose 5 MG; Start 09/07/16 at 18:00 Salmeterol Xinafoate/ Fluticasone (Advair 250/50 Diskus) 1 inh BID INH Last administered on 09/27/16 20:51; Admin Dose 1 INH; Start 09/07/16 at 23:00 Atorvastatin Calcium (Lipitor) 40 mg QHS PO Last administered on 09/27/16 20: 49; Admin Dose 40 MG; Start 09/07/16 at 21:00 Gabapentin (Neurontin) 900 mg QHS PO Last administered on 09/27/16 20:49; Admin Dose 900 MG; Start 09/07/16 at 21:00 Miscellaneous Information 1 ea NOTE XX ; Start 09/07/16 at 18:00 Glucose (Glutose) 15 gm Q15M PRN PO DECREASED GLUCOSE; Start 09/07/16 at 18:00 Glucose (Glutose) 22.5 gm Q15M PRN PO DECREASED GLUCOSE; Start 09/07/16 at 18: 00 Dextrose (D50w Syringe) 25 ml Q15M PRN IV DECREASED GLUCOSE; Start 09/07/16 at 18:00 Dextrose (D50w Syringe) 50 ml Q15M PRN IV DECREASED GLUCOSE; Start 09/07/16 at 18:00 Glucagon (Glucagen) 1 mg Q15M PRN IM DECREASED GLUCOSE; Start 09/07/16 at 18:00 Glucose (Glutose) 15 gm Q15M PRN BUCCAL DECREASED GLUCOSE; Start 09/07/16 at 18 :00 Naloxone HCl (Narcan) 0.2 mg Q2M PRN IV DECREASED REPIRATORY RATE Last administered on 09/08/16 02:44; Admin Dose 0.2 MG; Start 09/08/16 at 02:30 Tramadol HCl (Ultram) 50 mg Q8H PRN PO PAIN Last administered on 09/16/16 12:51 ; Admin Dose 50 MG; Start 09/08/16 at 16:00 Hydromorphone HCl (Dilaudid) 0.5 mg Q2H PRN IV PAIN Last administered on 01:36; Admin Dose 0.5 MG; Start 09/09/16 at 08:30 Gabapentin (Neurontin) 300 mg PO Last administered on 09/27/16 16:39; Admin Dose 300 MG; Start 09/15/16 at 09:00 Prednisone (Prednisone) 1 mg QHS PO Last administered on 09/27/16 20:50; Admin Dose 1 MG; Start 09/14/16 at 21:00 Eye Lubricant (Artificial Tears Oph) 2 drop Q2H PRN BOTH EYES DRY EYES Last administered on 09/18/16 17:40; Admin Dose 2 DROP; Start 09/18/16 at 15:00 Diagnostic Test (Pha) (Accu-Chek) 1 ea 02 XX Last administered on 09/24/16 02: 21; Admin Dose 1 EA; Start 09/20/16 at 02:00 Epoetin César (Epogen (Esrd)) 10,000 units MoWeFr@17 SC Last administered on 17:34; Admin Dose 10,000 UNITS; Start 09/21/16 at 17:00 Metoprolol Tartrate (Lopressor) 25 mg BID PO Last administered on 09/27/16 20: 51; Admin Dose 25 MG; Start 09/21/16 at 21:00 Prednisone (Prednisone) 4 mg DAILY PO Last administered on 09/27/16 09:00; Admin Dose 4 MG; Start 09/24/16 at 09:00 Famotidine (Pepcid) 40 mg HS PO Last administered on 09/27/16 20:50; Admin Dose 40 MG; Start 09/24/16 at 21:00 Carbamide Peroxide (Debrox Otic) 3 drop BID RIGHT EAR Last administered on 6/13 /17at 20:55; Admin Dose 3 DROP; Start 09/26/16 at 21:00; Stop 09/29/16 at 20:59 ARISTIDES WATKINS MD Sep 28, 2016 07:46
[2016-09-28] MEDS: INSULIN ASPART [NOVOLOG] 3 ML PEN SC SCH ×4 (07:50→21:00)
[2016-09-28] MEDS: METOPROLOL 25 MG TAB PO SCH ×2 (08:25→21:07)
[2016-09-28] MEDS: SALMETEROL/FLUTICASONE 250/50 INHA INH SCH ×2 (08:40→21:03)
[2016-09-28] MEDS: FOLIC ACID 1 MG TAB PO SCH ×2 (08:40→21:00)
[2016-09-28] MEDS: FENOFIBRATE 48 MG TAB PO SCH (08:40)
[2016-09-28] MEDS: LINAGLIPTIN 5 MG TABLET PO SCH (08:40)
[2016-09-28] MEDS: SEVELAMER CARBONATE 0.8 GM PKT PO SCH ×3 (08:41→16:27)
[2016-09-28] MEDS: CARBAMIDE PEROXIDE 6.5% 15ML OTIC RIGHT EAR SCH ×2 (08:41→21:00)
[2016-09-28] MEDS: predniSONE 1 MG TAB PO SCH ×3 (08:43→21:06)
[2016-09-28] MEDS: GABAPENTIN 300 MG CAP PO SCH ×3 (08:43→21:02)
[2016-09-28] MEDS: HEPARIN 5,000 UNIT/0.5 ML VIAL SC SCH ×2 (08:54→21:00)
--- NOTE | 2016-09-28 12:35 | PN ---
DATE: 09/28/2016 SUBJECTIVE: Patient [place] stable this morning. No new events. PHYSICAL EXAMINATION: VITAL SIGNS: Temperature 98, pulse 69, blood pressure 117/49, O2 saturation 99% on 2 L nasal cannul a. NECK: She has a C-spine collar in place. Unable to assess. CARDIAC: S1, S2, no added sounds or murmurs. CHEST: Diminished air entry bilaterally. ABDOMEN: Soft, nontender. No guarding or rebound. EXTREMITIES: No cyanosis, clubbing, edema. NEUROLOGIC: Grossly intact. LABORATORY DATA: Pending at time of this dictation. IMPRESSION AND PLAN: 1. Status post C-spine fracture. 2. History of sarcoidosis and chronic bronchitis. 3. End-stage renal failure on hemodialysis. 4. Anemia of chronic disease. PLAN: 1. Continue hemodialysis as tolerated. 2. Continue cervical collar. 3. Continue low-dose steroids. 4. Bronchodilators. 5. Consider transfer to [facility] facility or acute rehabilitation unit. Dictated By: DEBRA FLOWER/CORNELIUS Conf#: [id number] DID#: [id number]
--- NOTE | 2016-09-28 12:43 | PN ---
Date/Time of Note Date/Time of Note DATE: 09/28/16 TIME: 12:41 Assessment/Plan VTE Prophylaxis VTE Prophylaxis Intervention: contraindicated Lines/Catheters IV Catheter Type (from [facility]): [facility] [facility] Urinary Cath still in place: No Assessment/Plan Problems: (1) Atrial fibrillation Status: Chronic Comment: Stable and rate controlled. Anticoagulation begins in 3 weeks correction 2 weeks Qualifiers: Atrial fibrillation type: chronic Qualified Code: I48.2 - Chronic atrial fibrillation (2) C2 cervical fracture Status: Acute Comment: Stable. Starting with physical therapy and awaiting bed availability in the acute rehabilitation unit. Qualifiers: Encounter type: initial encounter Fracture type: closed Fracture morphology: other dens Fracture alignment: displaced Qualified Code: S12.120A - Other closed displaced odontoid fracture, initial encounter (3) COPD (chronic obstructive pulmonary disease) Status: Chronic Comment: Respiratory status remained stable on current medication regimen and compensated Qualifiers: COPD type: emphysema Emphysema type: panlobular Qualified Code: J43.1 - Panlobular emphysema (4) Sarcoidosis Status: Chronic Comment: On steroids and stable (5) ESRD (end stage renal disease) on dialysis Status: Chronic Comment: Continue hemodialysis on routine schedule (6) Diabetes mellitus type 2 in obese Status: Chronic Comment: Excellent control Subjective 24 Hr Interval Summary Free Text/Dictation Hospital day 21; patient reports moving around better. Constitutional: no complaints Respiratory: no complaints Cardiovascular: no complaints Gastrointestinal: no complaints Genitourinary: no complaints Exam/Review of Systems Vital Signs Vitals Vital Signs Date Time Temp Pulse Resp B/P Pulse Ox O2 Delivery O2 Flow Rate FiO2 09/28/16 08:30 Nasal Cannula 2.0 09/28/16 07:00 98.7 69 18 117/49 100 Intake and Output 09/27/16 09/27/16 09/28/16 15:00 23:00 07:00 Intake Total 480 ml Balance 480 ml Exam Hospital day 21 Constitutional: alert, oriented Neck: other (Hard cervical collar) Respiratory: clear to auscultation, normal air movement Cardiovascular: nl pulses, regular rate and rhythm Gastrointestinal: nl liver, spleen, non-tender, soft Results Result Diagram: 09/25/16 0437 09/25/16 0437 Results 24 hrs Laboratory Tests Test 09/27/16 17:28 09/27/16 20:48 09/28/16 08:38 09/28/16 12:31 Bedside Glucose 113 134 98 129 Medications Medications Current Medications Acetaminophen/ Hydrocodone Bitart ([place] (5/325)) 1 tab Q6H PRN PO MODERATE PAIN LEVEL 4-6 Last administered on 09/27/16 09:00; Admin Dose 1 TAB; Start at 17:30 Acetaminophen/ Hydrocodone Bitart ([place] (5/325)) 2 tab Q6H PRN PO SEVERE PAIN LEVEL 7-10 Last administered on 09/28/16 05:51; Admin Dose 2 TAB; Start at 17:30 Docusate Sodium (Colace) 100 mg Q12H PRN PO CONSTIPATION Last administered on 09:42; Admin Dose 100 MG; Start 09/07/16 at 17:30 Sodium Biphosphate/ Sodium Phosphate (Fleet Enema) 133 ml DAILY PRN [place] CONSTIPATION; Start 09/07/16 at 17:30 Heparin Sodium (Porcine) (Heparin (5000 Units/0.5 ml)) 5,000 unit Q12 SC Last administered on 09/28/16 08:54; Admin Dose 5,000 UNIT; Start 09/07/16 at 21:00 Folic Acid (Folic Acid) 1 mg BID PO Last administered on 09/28/16 08:40; Admin Dose 1 MG; Start 09/07/16 at 21:00 Fenofibrate (Tricor) 48 mg QAM PO Last administered on 09/28/16 08:40; Admin Dose 48 MG; Start 09/08/16 at 09:00 Linagliptin (Tradjenta) 5 mg DAILY PO Last administered on 09/28/16 08:40; Admin Dose 5 MG; Start 09/07/16 at 18:00 Salmeterol Xinafoate/ Fluticasone (Advair 250/50 Diskus) 1 inh BID INH Last administered on 09/28/16 08:40; Admin Dose 1 INH; Start 09/07/16 at 23:00 Atorvastatin Calcium (Lipitor) 40 mg QHS PO Last administered on 09/27/16 20: 49; Admin Dose 40 MG; Start 09/07/16 at 21:00 Gabapentin (Neurontin) 900 mg QHS PO Last administered on 09/27/16 20:49; Admin Dose 900 MG; Start 09/07/16 at 21:00 Miscellaneous Information 1 ea NOTE XX ; Start 09/07/16 at 18:00 Glucose (Glutose) 15 gm Q15M PRN PO DECREASED GLUCOSE; Start 09/07/16 at 18:00 Glucose (Glutose) 22.5 gm Q15M PRN PO DECREASED GLUCOSE; Start 09/07/16 at 18: 00 Dextrose (D50w Syringe) 25 ml Q15M PRN IV DECREASED GLUCOSE; Start 09/07/16 at 18:00 Dextrose (D50w Syringe) 50 ml Q15M PRN IV DECREASED GLUCOSE; Start 09/07/16 at 18:00 Glucagon (Glucagen) 1 mg Q15M PRN IM DECREASED GLUCOSE; Start 09/07/16 at 18:00 Glucose (Glutose) 15 gm Q15M PRN BUCCAL DECREASED GLUCOSE; Start 09/07/16 at 18 :00 Naloxone HCl (Narcan) 0.2 mg Q2M PRN IV DECREASED REPIRATORY RATE Last administered on 09/08/16 02:44; Admin Dose 0.2 MG; Start 09/08/16 at 02:30 Tramadol HCl (Ultram) 50 mg Q8H PRN PO PAIN Last administered on 09/16/16 12:51 ; Admin Dose 50 MG; Start 09/08/16 at 16:00 Hydromorphone HCl (Dilaudid) 0.5 mg Q2H PRN IV PAIN Last administered on 01:36; Admin Dose 0.5 MG; Start 09/09/16 at 08:30 Gabapentin (Neurontin) 300 mg 16 PO Last administered on 09/28/16 08:43; Admin Dose 300 MG; Start 09/15/16 at 09:00 Prednisone (Prednisone) 1 mg QHS PO Last administered on 09/27/16 20:50; Admin Dose 1 MG; Start 09/14/16 at 21:00 Eye Lubricant (Artificial Tears Oph) 2 drop Q2H PRN BOTH EYES DRY EYES Last administered on 09/18/16 17:40; Admin Dose 2 DROP; Start 09/18/16 at 15:00 Diagnostic Test (Pha) (Accu-Chek) 1 ea 02 XX Last administered on 09/24/16 02: 21; Admin Dose 1 EA; Start 09/20/16 at 02:00 Epoetin César (Epogen (Esrd)) 10,000 units MoWeFr@17 SC Last administered on 17:34; Admin Dose 10,000 UNITS; Start 09/21/16 at 17:00 Metoprolol Tartrate (Lopressor) 25 mg BID PO Last administered on 09/27/16 20: 51; Admin Dose 25 MG; Start 09/21/16 at 21:00 Prednisone (Prednisone) 4 mg DAILY PO Last administered on 09/28/16 08:43; Admin Dose 4 MG; Start 09/24/16 at 09:00 Famotidine (Pepcid) 40 mg HS PO Last administered on 09/27/16 20:50; Admin Dose 40 MG; Start 09/24/16 at 21:00 Carbamide Peroxide (Debrox Otic) 3 drop BID RIGHT EAR Last administered on 09/28 08:41; Admin Dose 3 DROP; Start 09/26/16 at 21:00; Stop 09/29/16 at 20:59 TOMER GARCIA MD Sep 28, 2016 12:43
[2016-09-28] MEDS ORDERED: ALBUMIN HUMAN 25% 100 ML IV ONE (16:30)
[2016-09-28] MEDS: EPOETIN 10000 UNITS/1 ML INJ (ESRD) SC SCH (17:09)
[2016-09-28] MEDS: FAMOTIDINE 20 MG TAB PO SCH (21:01)
[2016-09-28] MEDS: ATORVASTATIN 40 MG TAB PO SCH (21:02)
== END 2016-09-28 22:02 | DRG 551 ==
LOC: E/R 14:17 → ICU 16:36 → TEL 09-20 04:00 → MS1 09-24 20:03
PROVIDERS: ADMIT Internal Medicine; ATTEND Internal Medicine
PROC: 5A09457 Assistance with Respiratory Ventilation, 24-96 Consecutive Hours, Continuous Positive Airway Pressure (ICD-10-PCS; principal; 2016-09-08)
PROC: 4A133R1 Monitoring of Arterial Saturation, Peripheral, Percutaneous Approach (ICD-10-PCS; 2016-09-08)
PROC: 5A1D60Z (ICD-10-PCS; 2016-09-08)
PROC: 02H633Z Insertion of Infusion Device into Right Atrium, Percutaneous Approach (ICD-10-PCS; 2016-09-11)
PROC: B244ZZZ Ultrasonography of Right Heart (ICD-10-PCS; 2016-09-11)
DX: S12.100A Unspecified displaced fracture of second cervical vertebra, initial encounter for closed fracture (principal); N18.6 End stage renal disease; J96.21 Acute and chronic respiratory failure with hypoxia; R57.1 Hypovolemic shock; I13.2 Hypertensive heart and chronic kidney disease with heart failure and with stage 5 chronic kidney disease, or end stage renal disease; E11.22 Type 2 diabetes mellitus with diabetic chronic kidney disease; D86.0 Sarcoidosis of lung; I95.3 Hypotension of hemodialysis; J96.22 Acute and chronic respiratory failure with hypercapnia; I50.32 Chronic diastolic (congestive) heart failure; I25.10 Atherosclerotic heart disease of native coronary artery without angina pectoris; I48.2 Chronic atrial fibrillation; E88.81 Metabolic syndrome and other insulin resistance; J43.1 Panlobular emphysema; Z99.2 Dependence on renal dialysis; I44.7 Left bundle-branch block, unspecified; G47.33 Obstructive sleep apnea (adult) (pediatric); E78.5 Hyperlipidemia, unspecified; E11.42 Type 2 diabetes mellitus with diabetic polyneuropathy; D63.1 Anemia in chronic kidney disease; R00.0 Tachycardia, unspecified; Z79.52 Long term (current) use of systemic steroids; Z95.5 Presence of coronary angioplasty implant and graft; Z79.01 Long term (current) use of anticoagulants; Z95.3 Presence of xenogenic heart valve; W07.XXXA Fall from chair, initial encounter; Y93.84 Activity, sleeping; Y92.009 Unspecified place in unspecified non-institutional (private) residence as the place of occurrence of the external cause
CPT/HCPCS: 36415; 36569; 36600; 70450; 70486; 71010; 71250; 72125; 72141; 74176; 76937; 80048; 80053; 80202; 82533; 82607; 82803; 82962; 83036; 83690; 83735; 84100; 84134; 84443; 84484; 85025; 85610; 85730; 87040; 87081; 90471; 90715; 90935; 92526; 92610; 93005; 93306; 94660; 94664; 96372; 96374; 96375; 96376; 97110; 97116; 97162; 97530; C1769; J0282; J1170; J1644; J1815; J2310; J2370; J2405; J2920; J3370; J7042; J7060; J7512; L0174; P9047; Q4081

== ENCOUNTER 2016-09-28 13:19 | Inpatient (IN) | payer MEDICARE, OTHER ==
[~2016-09-28] VITALS: Ht 165.1 cm; Wt 85.0 kg
[~2016-09-28 13:19] MED LIST changes: -ALBU18HF IH; -ASPI325T32 PO; -BECL8.7A5 INH; -COU2 PO; -DIPH1TAB25 PO; -FENO200 PO; -GABA400C PO; -HYDR-3498 PO; -LANT10002 PO; -METO-407 PO; +METO-448 PO; +NIFE90TA11 PO; -NIFE90TA21 PO; -OMEG1CAP55 PO; -PRED10TA PO; -SEVE800T7 PO; +WARF4TAB52 PO; +[UNRECOGNIZED DRUG - CODE] PO
[2016-09-28 22:15] VITALS: BP 152/67; PULSE 79; RESP 18
[2016-09-28 22:30] VITALS: Ht 165.1 cm; Wt 85.0 kg
[2016-09-28] MEDS ORDERED: GLUCAGON 1 MG INJ IM PRN (23:00)
[2016-09-28] MEDS ORDERED: DEXTROSE 50% 50 ML SYRINGE IV PRN ×2 (23:00)
[2016-09-28] MEDS ORDERED: GLUCOSE GEL 15 GRAM TUBE PO PRN ×2 (23:00)
[2016-09-28] MEDS ORDERED: GLUCOSE GEL 15 GRAM TUBE BUCCAL PRN (23:00)
[2016-09-28] MEDS ORDERED: HYDROCODONE/APAP (5/325) TAB PO PRN (23:00)
[2016-09-28] MEDS ORDERED: NA PHOSPHATE/BIPHOS 133 ML ENEMA PR PRN (23:00)
[2016-09-28] MEDS ORDERED: ARTIFICIAL TEARS 15 ML OPH BOTH EYES PRN (23:30)
[2016-09-28] MEDS ORDERED: DOCUSATE SODIUM 100 MG CAP PO PRN (23:30)
[2016-09-29] MEDS: ALBUTEROL/IPRATROPIUM (NEB) 3 ML AMP HHN SCH ×6 (01:39→20:02)
[2016-09-29] MEDS: ACCUCHECK AT 2AM (Patients on SS coverage) XX SCH (02:00)
[2016-09-29] MEDS ORDERED: MAGNESIUM HYDROXIDE 30ML CUP PO PRN (05:30)
[2016-09-29] MEDS ORDERED: BISACODYL 10 MG SUPP PR PRN (05:30)
[2016-09-29 07:10] VITALS: BP 129/83; PULSE 69; RESP 20
[2016-09-29 07:17] LABS: ADD SCAN DIFF NO
[2016-09-29 07:23] LABS: BASOPHILS % 0.6 % (0.0-2.0); EOSINOPHILS # 0.2 10^3/ul (0.0-0.5); EOSINOPHILS % 2.7 % (0.0-7.0); HEMATOCRIT 26.4 % (37.0-47.0); HEMOGLOBIN 8.7 g/dl (12.0-16.0); LYMPHOCYTES # 1.6 10^3/ul (0.8-2.9); MEAN PLATELET VOLUME 10.7 fl (7.4-10.4); MONOCYTE # 0.6 10^3/ul (0.3-0.9); MONOCYTES % 9.8 % (0.0-11.0); PLATELET COUNT 150 10^3/UL (140-415); RED BLOOD COUNT 2.81 10^6/ul (4.20-5.40); RED CELL DISTRIBUTION WIDTH 15.9 % (11.5-14.5); WHITE BLOOD COUNT 6.6 10^3/ul (4.8-10.8)
[2016-09-29 07:30] VITALS: BP 129/63; RESP 20
[2016-09-29] MEDS: Insulin NOVOLOG SS MILD Algorithm (SS with meals and bedtime) SC SCH ×4 (07:35→21:00)
[2016-09-29] MEDS: SEVELAMER CARBONATE 0.8 GM PKT PO SCH ×3 (08:25→17:03)
[2016-09-29] MEDS: SALMETEROL/FLUTICASONE 250/50 INHA INH SCH ×2 (08:26→21:02)
[2016-09-29] MEDS: DOCUSATE SODIUM 100 MG CAP PO SCH ×2 (08:26→21:03)
[2016-09-29] MEDS: FENOFIBRATE 48 MG TAB PO SCH (08:26)
[2016-09-29] MEDS: FOLIC ACID 1 MG TAB PO SCH ×2 (08:27→21:03)
[2016-09-29] MEDS: predniSONE 1 MG TAB PO SCH ×3 (08:27→21:28)
[2016-09-29] MEDS: LINAGLIPTIN 5 MG TABLET PO SCH (08:27)
[2016-09-29] MEDS: METOPROLOL 25 MG TAB PO SCH ×2 (08:29→21:04)
[2016-09-29] MEDS: HEPARIN 5,000 UNIT/0.5 ML VIAL SC SCH ×2 (08:31→21:24)
[2016-09-29] MEDS ORDERED: GABAPENTIN 300 MG CAP PO SCH ×2 (09:00→21:00)
--- NOTE | 2016-09-29 11:13 | CONS ---
Date/Time of Note Date/Time of Note DATE: 09/29/16 TIME: 11:11 Assessment/Plan Assessment/Plan Additional Assessment/Plan 1. Cx spine fx, doing well, strength in legs is improving 2. CKD, to have HD tomm 3. Anemia, receiving epogen will again check iron stores Consultation Date/Type/Reason Admit Date/Time Sep 28, 2016 at 22:05 Initial Consult Date Detailed Summary Respiratory: No cough, No shortness of breath Cardiovascular: No chest pain Gastrointestinal: no complaints Genitourinary: no complaints Musculoskeletal: neck pain (mild) Exam/Review of Systems Vital Signs Vitals Vital Signs Date Time Temp Pulse Resp B/P Pulse Ox O2 Delivery O2 Flow Rate FiO2 09/29/16 09:02 90 17 100 21 09/29/16 07:30 98.4 129/63 09/29/16 07:10 Nasal Cannula 2.0 Intake and Output 09/28/16 09/28/16 09/29/16 15:00 23:00 07:00 Intake Total 120 ml Output Total 650 ml Balance -530 ml Exam Neck: other (collar in place) Respiratory: clear to auscultation Cardiovascular: regular rate and rhythm Extremities: No edema (and no calf tend) Results Result Diagram: 09/29/16 0617 Results 24 hrs Laboratory Tests Test 09/29/16 06:17 09/29/16 07:54 White Blood Count 6.6 # Red Blood Count 2.81 L Hemoglobin 8.7 L Hematocrit 26.4 L Mean Corpuscular Volume 94.0 Mean Corpuscular Hemoglobin 31.0 Mean Corpuscular Hemoglobin Concent 33.0 Red Cell Distribution Width 15.9 H Platelet Count 150 # Mean Platelet Volume 10.7 H Neutrophils % 61.0 Lymphocytes % 25.0 Monocytes % 9.8 Eosinophils % 2.7 Basophils % 0.6 Nucleated Red Blood Cells % 0.0 Neutrophils # 4.0 Lymphocytes # 1.6 Monocytes # 0.6 Eosinophils # 0.2 Basophils # 0.0 Nucleated Red Blood Cells # 0.0 Bedside Glucose 98 Medications Medications Current Medications Sodium Biphosphate/ Sodium Phosphate (Fleet Enema) 133 ml DAILY PRN [place] CONSTIPATION; Start 09/28/16 at 23:00 Tramadol HCl (Ultram) 50 mg Q8H PRN PO PAIN; Start 09/28/16 at 23:00 Prednisone (Prednisone) 1 mg QHS PO ; Start 09/29/16 at 21:00 Prednisone (Prednisone) 4 mg DAILY PO Last administered on 09/29/16 08:27; Admin Dose 4 MG; Start 09/29/16 at 09:00 Salmeterol Xinafoate/ Fluticasone (Advair 250/50 Diskus) 1 inh BID INH Last administered on 09/29/16 08:26; Admin Dose 1 INH; Start 09/29/16 at 09:00 Diagnostic Test (Pha) (Accu-Chek) 1 ea 02 XX ; Start 09/29/16 at 02:00 Miscellaneous Information 1 ea NOTE XX ; Start 09/28/16 at 23:00 Glucose (Glutose) 15 gm Q15M PRN PO DECREASED GLUCOSE; Start 09/28/16 at 23:00 Glucose (Glutose) 22.5 gm Q15M PRN PO DECREASED GLUCOSE; Start 09/28/16 at 23: 00 Dextrose (D50w Syringe) 25 ml Q15M PRN IV DECREASED GLUCOSE; Start 09/28/16 at 23:00 Dextrose (D50w Syringe) 50 ml Q15M PRN IV DECREASED GLUCOSE; Start 09/28/16 at 23:00 Glucagon (Glucagen) 1 mg Q15M PRN IM DECREASED GLUCOSE; Start 09/28/16 at 23:00 Glucose (Glutose) 15 gm Q15M PRN BUCCAL DECREASED GLUCOSE; Start 09/28/16 at 23 :00 Linagliptin (Tradjenta) 5 mg DAILY PO Last administered on 09/29/16 08:27; Admin Dose 5 MG; Start 09/29/16 at 09:00 Metoprolol Tartrate (Lopressor) 25 mg BID PO Last administered on 09/29/16 08: 29; Admin Dose 25 MG; Start 09/29/16 at 09:00 Heparin Sodium (Porcine) (Heparin (5000 Units/0.5 ml)) 5,000 unit Q12 SC Last administered on 09/29/16 08:31; Admin Dose 5,000 UNIT; Start 09/29/16 at 09:00 Acetaminophen/ Hydrocodone Bitart ([place] (5/325)) 1 tab Q6H PRN PO PAIN; Start 09/28/16 at 23:00 Acetaminophen/ Hydrocodone Bitart ([place] (5/325)) 2 tab Q6H PRN PO PAIN; Start 09/28/16 at 23:00 Famotidine (Pepcid) 40 mg QHS PO ; Start 09/29/16 at 21:00 Fenofibrate (Tricor) 48 mg QAM PO Last administered on 09/29/16 08:26; Admin Dose 48 MG; Start 09/29/16 at 09:00 Folic Acid (Folic Acid) 1 mg BID PO Last administered on 09/29/16 08:27; Admin Dose 1 MG; Start 09/29/16 at 09:00 Gabapentin (Neurontin) 900 mg QHS PO ; Start 09/29/16 at 21:00 Gabapentin (Neurontin) 300 mg ,16 PO Last administered on 09/29/16 08:26; Admin Dose 300 MG; Start 09/29/16 at 09:00 Eye Lubricant (Artificial Tears Oph) 2 drop Q2H PRN BOTH EYES DRY EYES; Start 09/28/16 at 23:30 Atorvastatin Calcium (Lipitor) 40 mg DAILY@21 PO ; Start 09/29/16 at 21:00 Docusate Sodium (Colace) 100 mg Q12H PRN PO CONSTIPATION; Start 09/28/16 at 23: 30 Epoetin César (Epogen (Esrd)) 10,000 units MoWeFr@17 SC ; Start 09/30/16 at 17:00 Docusate Sodium (Colace) 100 mg BID PO Last administered on 09/29/16 08:26; Admin Dose 100 MG; Start 09/29/16 at 09:00 Senna (Senokot) 1 tab HS PO ; Start 09/29/16 at 21:00 Bisacodyl (Dulcolax Supp) 10 mg DAILY PRN [place] CONSTIPATION; Start 09/29/16 at 05 :30 Magnesium Hydroxide (Milk Of Mag) 30 ml BID PRN PO CONSTIPATION; Start at 05:30 ARISTIDES WATKINS MD Sep 29, 2016 11:13
--- NOTE | 2016-09-29 13:13 | CONS ---
DATE OF ADMISSION: 09/28/2016 DATE OF CONSULTATION: 09/29/2016 REHABILITATION POST-ADMISSION PHYSICIAN EVALUATION: REHABILITATION IMPAIRMENT CATEGORY: Cervical myelopathy and C2 fracture. ACTIVE COMORBIDITIES: 1. Blunt head trauma. 2. End-stage renal disease requiring dialysis. 3. Polyneuropathy. 4. Dysphagia. 5. Coronary artery disease. 6. Sarcoidosis. 7. Diabetes mellitus type 2. 8. Hypertension. 9. Impairments in self-care, mobility and cognition. HISTORY OF PRESENT ILLNESS: The patient is a pleasant 75-year-old female with multiple medical comorbidities who is status post a fall where she reportedly fell asleep while in a chair and fell forward, striking her face on the ground with subsequent neck pain. Workup revealed a C2 dens fracture and the patient was placed in cervical collar. The patient was followed closely by neurosurgery and felt not to need cervical intervention at this time. MRI did demonstrate a posterior column myelopathy. The patient's hospital course is also notable for her end-stage renal disease requiring dialysis, some mild cognitive impairment, and significant impairments in self-care and mobility as compared to baseline. The patient has been cleared to transfer to the rehabilitation unit for comprehensive interdisciplinary rehab care. FUNCTIONAL HISTORY: Prior to recent events, she was independent in self-care tasks and mobility. Currently, she requires moderate assist to maximal assist for self-care and mobility tasks. I have reviewed the preadmission screen and the patient's current functional status is consistent with the preadmission screen. SOCIAL HISTORY: The patient lives at home with family and hopes to return there upon discharge. PAST MEDICAL HISTORY: 1. End-stage renal disease on dialysis. 2. Coronary artery disease with history of stent. 3. Chronic atrial fibrillation. 4. Diabetes mellitus type 2. 5. Hypertension. 6. Chronic obstructive pulmonary disease. CURRENT MEDICATIONS: 1. Artificial tears. 2. Lipitor 40 mg p.o. daily. 3. Insulin sliding scale. 4. Colace 100 mg b.i.d. 5. Epogen. 6. Pepcid 40 mg p.o. at bedtime. 7. Tricor 48 mg p.o. q.a.m. 8. Neurontin 300 in the a.m. and afternoon and 900 at night. 9. Heparin subq. 10. [place] p.r.n. 11. Tradjenta 3 mg p.o. daily. 12. Lopressor 25 mg b.i.d. 13. Prednisone 4 mg q. a.m., 1.5 q. p.m. and 1 mg at bedtime. 14. Advair Diskus. 15. Renvela 0.8 g p.o. before meals. 16. Tramadol p.r.n. ALLERGIES: THE PATIENT WITH NO KNOWN DRUG ALLERGIES. PHYSICAL EXAMINATION: VITAL SIGNS: The patient is currently afebrile with stable vital signs. HEENT: The extraocular motions are intact. There is a hard collar in place. Oropharynx is clear. LUNGS: Clear anteriorly. CARDIAC: S1, S2. ABDOMEN: Soft, nontender, positive bowel sounds. NEUROLOGIC: She is awake and alert. She is oriented to person and hospital. She will follow simple 1-step commands. She demonstrates antigravity strength in bilateral upper extremity. She demonstrates 3+ strength in bilateral lower extremity. She has impaired dynamic balance. PLAN: The patient has been admitted for comprehensive interdisciplinary acute rehab and is anticipated to tolerate 3 hours of daily therapy in divided doses for at least 5/7 days a week. The treatment plan will include: 1. Physical therapy to focus on bed mobility, transfers, and household ambulation with the goal of having the patient reach a standby assist at the wheelchair level, minimal assist for ambulation. 2. Occupational therapy to focus on hygiene, grooming, dressing, bathing, and toileting activities with the goal of having the patient reach a standby assist level at the wheelchair level. 3. Speech therapy for full cognitive assessment and retraining in addition to dysphagia management with the goal of having the patient return to baseline cognition and meet nutritional needs by mouth. 4. Rehabilitation nursing for carryover of therapeutic interventions, the goal of continent of bowel and bladder, the goal of pain adequately managed on oral medications. ESTIMATED LENGTH OF STAY: 14 days. DISPOSITION GOAL: Home. Rehabilitation Barrier: Cognition Intervention for barrier: Speech therapy I acknowledge that I performed a full physical examination on this patient within 24 hours of admission to the rehabilitation unit and believe the patient is a good candidate for comprehensive interdisciplinary rehab care and is anticipated to make reasonable goals in a reasonable period of time as outlined above. Dictated By: SYDNEY BRADFORD/CORNELIUS Conf#: [id number] DID#: [id number] MTDD
[2016-09-29 15:25] LABS: ALBUMIN 4.4 g/dl (3.3-4.9); ALBUMIN/GLOBULIN RATIO 1.69; CALCIUM 9.5 mg/dl (8.4-10.2); CREATININE 5.99 mg/dl (0.44-1.00); POTASSIUM 4.1 mmol/L (3.5-5.1)
[2016-09-29] MEDS: GABAPENTIN 100 MG CAP PO SCH (16:55)
[2016-09-29] MEDS: traMADol 50 MG TAB PO PRN (18:29)
[2016-09-29 20:00] VITALS: BP 157/62; RESP 18
[2016-09-29] MEDS: ATORVASTATIN 40 MG TAB PO SCH (21:02)
[2016-09-29] MEDS: GABAPENTIN 300 MG CAP PO SCH (21:02)
[2016-09-29] MEDS: SENNA TAB PO SCH (21:03)
[2016-09-29] MEDS: FAMOTIDINE 20 MG TAB PO SCH (21:04)
[2016-09-30] VITALS (9 sets, daily range): BP systolic 115–135; BP diastolic 56–75; PULSE 75–84; RESP 18–20
[2016-09-30] MEDS: ALBUTEROL/IPRATROPIUM (NEB) 3 ML AMP HHN SCH ×6 (01:28→21:22)
[2016-09-30] MEDS: ACCUCHECK AT 2AM (Patients on SS coverage) XX SCH (01:54)
[2016-09-30 07:22] LABS: ADD SCAN DIFF NO
[2016-09-30 07:28] LABS: BASOPHILS % 0.6 % (0.0-2.0); EOSINOPHILS # 0.2 10^3/ul (0.0-0.5); EOSINOPHILS % 2.3 % (0.0-7.0); HEMATOCRIT 26.5 % (37.0-47.0); HEMOGLOBIN 8.5 g/dl (12.0-16.0); LYMPHOCYTES # 1.4 10^3/ul (0.8-2.9); LYMPHOCYTES % 20.8 % (15.0-51.0); MEAN CORPUSCULAR HEMOGLOBIN 30.5 pg (29.0-33.0); MEAN CORPUSCULAR HGB CONC 32.1 g/dl (32.0-37.0); MEAN PLATELET VOLUME 11.2 fl (7.4-10.4); MONOCYTE # 0.5 10^3/ul (0.3-0.9); MONOCYTES % 8.2 % (0.0-11.0); NEUTROPHIL # 4.5 10^3/ul (1.6-7.5); NEUTROPHILS % 67.3 % (39.0-77.0); PLATELET COUNT 142 10^3/UL (140-415); RED BLOOD COUNT 2.79 10^6/ul (4.20-5.40); WHITE BLOOD COUNT 6.6 10^3/ul (4.8-10.8)
[2016-09-30] MEDS: Insulin NOVOLOG SS MILD Algorithm (SS with meals and bedtime) SC SCH ×4 (07:35→21:00)
[2016-09-30 08:00] LABS: IRON 63 ug/dl (35-150)
[2016-09-30 08:09] LABS: TOTAL IRON BINDING CAPACITY 253 ug/dl (241-421)
[2016-09-30 08:24] LABS: CALCIUM 9.7 mg/dl (8.4-10.2); CREATININE 6.66 mg/dl (0.44-1.00); PHOSPHORUS 6.7 mg/dl (2.5-4.9); POTASSIUM 4.6 mmol/L (3.5-5.1)
[2016-09-30] MEDS: SEVELAMER CARBONATE 0.8 GM PKT PO SCH ×3 (08:45→16:32)
[2016-09-30] MEDS: FOLIC ACID 1 MG TAB PO SCH ×2 (08:46→20:35)
[2016-09-30] MEDS: GABAPENTIN 100 MG CAP PO SCH ×2 (08:47→16:30)
[2016-09-30] MEDS: HEPARIN 5,000 UNIT/0.5 ML VIAL SC SCH ×2 (08:47→20:39)
[2016-09-30] MEDS: predniSONE 1 MG TAB PO SCH ×3 (08:47→20:36)
[2016-09-30] MEDS: FENOFIBRATE 48 MG TAB PO SCH (08:47)
[2016-09-30] MEDS: DOCUSATE SODIUM 100 MG CAP PO SCH ×2 (08:48→20:34)
[2016-09-30] MEDS: SALMETEROL/FLUTICASONE 250/50 INHA INH SCH ×2 (08:48→20:34)
[2016-09-30] MEDS: METOPROLOL 25 MG TAB PO SCH ×2 (08:48→20:35)
[2016-09-30] MEDS: LINAGLIPTIN 5 MG TABLET PO SCH (08:48)
--- NOTE | 2016-09-30 09:16 | CONS ---
Date/Time of Note Date/Time of Note DATE: 09/30/16 TIME: 09:14 Consult Date/Type/Reason Admit Date/Time Sep 28, 2016 at 22:05 Initial Consult Date Objective Pulm- cta mod Vital Signs Date Time Temp Pulse Resp B/P Pulse Ox O2 Delivery O2 Flow Rate FiO2 09/30/16 08:00 77 20 100 Nasal Cannula 2.0 09/29/16 20:00 98.5 157/62 09/29/16 17:24 28 Intake and Output 09/29/16 09/29/16 09/30/16 15:00 23:00 07:00 Intake Total 320 ml 220 ml Balance 320 ml 220 ml Results/Medications Result Diagram: 09/30/16 0620 09/30/16 0620 Results 24 hrs Laboratory Tests Test 09/29/16 12:06 09/29/16 14:50 09/29/16 17:05 09/29/16 21:00 Bedside Glucose 105 120 154 Sodium Level 134 L Potassium Level 4.1 Chloride Level 94 L Carbon Dioxide Level 29 Anion Gap 15 Blood Urea Nitrogen 44 H Creatinine 5.99 H Glucose Level 141 Calcium Level 9.5 Total Bilirubin 0.0 L Direct Bilirubin 0.00 Indirect Bilirubin 0.0 Aspartate Amino Transf (AST/SGOT) 19 Alanine Aminotransferase (ALT/SGPT) 25 Alkaline Phosphatase 49 Total Protein 7.0 Albumin 4.4 Globulin 2.60 Albumin/Globulin Ratio 1.69 Test 09/30/16 06:20 09/30/16 07:58 White Blood Count 6.6 Red Blood Count 2.79 L Hemoglobin 8.5 L Hematocrit 26.5 L Mean Corpuscular Volume 95.0 Mean Corpuscular Hemoglobin 30.5 Mean Corpuscular Hemoglobin Concent 32.1 Red Cell Distribution Width 16.0 H Platelet Count 142 Mean Platelet Volume 11.2 H Neutrophils % 67.3 Lymphocytes % 20.8 Monocytes % 8.2 Eosinophils % 2.3 Basophils % 0.6 Nucleated Red Blood Cells % 0.0 Neutrophils # 4.5 Lymphocytes # 1.4 Monocytes # 0.5 Eosinophils # 0.2 Basophils # 0.0 Nucleated Red Blood Cells # 0.0 Sodium Level 133 L Potassium Level 4.6 Chloride Level 96 L Carbon Dioxide Level 24 Anion Gap 18 H Blood Urea Nitrogen 56 H Creatinine 6.66 H Glucose Level 92 # Calcium Level 9.7 Phosphorus Level 6.7 H Iron Level 63 Total Iron Binding Capacity 253 Percent Iron Saturation 25 Bedside Glucose 88 Medications Current Medications Sodium Biphosphate/ Sodium Phosphate (Fleet Enema) 133 ml DAILY PRN [place] CONSTIPATION; Start 09/28/16 at 23:00 Tramadol HCl (Ultram) 50 mg Q8H PRN PO PAIN Last administered on 09/29/16 18: 29; Admin Dose 50 MG; Start 09/28/16 at 23:00 Prednisone (Prednisone) 1 mg QHS PO Last administered on 09/29/16 21:28; Admin Dose 1 MG; Start 09/29/16 at 21:00 Prednisone (Prednisone) 4 mg DAILY PO Last administered on 09/30/16 08:47; Admin Dose 4 MG; Start 09/29/16 at 09:00 Salmeterol Xinafoate/ Fluticasone (Advair 250/50 Diskus) 1 inh BID INH Last administered on 09/30/16 08:48; Admin Dose 1 INH; Start 09/29/16 at 09:00 Diagnostic Test (Pha) (Accu-Chek) 1 ea 02 XX ; Start 09/29/16 at 02:00 Miscellaneous Information 1 ea NOTE XX ; Start 09/28/16 at 23:00 Glucose (Glutose) 15 gm Q15M PRN PO DECREASED GLUCOSE; Start 09/28/16 at 23:00 Glucose (Glutose) 22.5 gm Q15M PRN PO DECREASED GLUCOSE; Start 09/28/16 at 23: 00 Dextrose (D50w Syringe) 25 ml Q15M PRN IV DECREASED GLUCOSE; Start 09/28/16 at 23:00 Dextrose (D50w Syringe) 50 ml Q15M PRN IV DECREASED GLUCOSE; Start 09/28/16 at 23:00 Glucagon (Glucagen) 1 mg Q15M PRN IM DECREASED GLUCOSE; Start 09/28/16 at 23:00 Glucose (Glutose) 15 gm Q15M PRN BUCCAL DECREASED GLUCOSE; Start 09/28/16 at 23 :00 Linagliptin (Tradjenta) 5 mg DAILY PO Last administered on 09/30/16 08:48; Admin Dose 5 MG; Start 09/29/16 at 09:00 Metoprolol Tartrate (Lopressor) 25 mg BID PO Last administered on 09/30/16 08: 48; Admin Dose 25 MG; Start 09/29/16 at 09:00 Heparin Sodium (Porcine) (Heparin (5000 Units/0.5 ml)) 5,000 unit Q12 SC Last administered on 09/30/16 08:47; Admin Dose 5,000 UNIT; Start 09/29/16 at 09:00 Acetaminophen/ Hydrocodone Bitart ([place] (5/325)) 1 tab Q6H PRN PO PAIN; Start 09/28/16 at 23:00 Acetaminophen/ Hydrocodone Bitart ([place] (5/325)) 2 tab Q6H PRN PO PAIN; Start 09/28/16 at 23:00 Famotidine (Pepcid) 40 mg QHS PO Last administered on 09/29/16 21:04; Admin Dose 40 MG; Start 09/29/16 at 21:00 Fenofibrate (Tricor) 48 mg QAM PO Last administered on 09/30/16 08:47; Admin Dose 48 MG; Start 09/29/16 at 09:00 Folic Acid (Folic Acid) 1 mg BID PO Last administered on 09/30/16 08:46; Admin Dose 1 MG; Start 09/29/16 at 09:00 Eye Lubricant (Artificial Tears Oph) 2 drop Q2H PRN BOTH EYES DRY EYES; Start 09/28/16 at 23:30 Atorvastatin Calcium (Lipitor) 40 mg DAILY@21 PO Last administered on 21:02; Admin Dose 40 MG; Start 09/29/16 at 21:00 Docusate Sodium (Colace) 100 mg Q12H PRN PO CONSTIPATION; Start 09/28/16 at 23: 30 Epoetin César (Epogen (Esrd)) 10,000 units MoWeFr@17 SC ; Start 09/30/16 at 17:00 Docusate Sodium (Colace) 100 mg BID PO Last administered on 09/30/16 08:48; Admin Dose 100 MG; Start 09/29/16 at 09:00 Senna (Senokot) 1 tab HS PO Last administered on 09/29/16 21:03; Admin Dose 1 TAB; Start 09/29/16 at 21:00 Bisacodyl (Dulcolax Supp) 10 mg DAILY PRN [place] CONSTIPATION; Start 09/29/16 at 05 :30 Magnesium Hydroxide (Milk Of Mag) 30 ml BID PRN PO CONSTIPATION; Start at 05:30 Gabapentin (Neurontin) 100 mg 09,16 PO Last administered on 09/30/16 08:47; Admin Dose 100 MG; Start 09/29/16 at 16:00 Gabapentin (Neurontin) 300 mg QHS PO Last administered on 09/29/16 21:02; Admin Dose 300 MG; Start 09/29/16 at 21:00 Assessment/Plan Additional Assessment/Plan Rehab- Cervical myelopathy and C2 fracture; Blunt head trauma Continue rehab program End-stage renal disease requiring dialysis. Polyneuropathy-neurontin Dysphagia-speech therapy Coronary artery disease. Sarcoidosis. Diabetes mellitus type 2. Hypertension. SYDNEY ROGERS MD Sep 30, 2016 09:15
--- NOTE | 2016-09-30 13:59 | PN ---
Date/Time of Note Date/Time of Note DATE: 09/30/16 TIME: 13:57 Assessment/Plan VTE Prophylaxis VTE Prophylaxis Intervention: contraindicated Lines/Catheters IV [facility]ter Type (from [facility]): Saline Lock Urinary Cath still in place: No Assessment/Plan Problems: (1) Atrial fibrillation Status: Chronic Comment: Rate controlled with medications. Resumption of oral anticoagulant therapy in roughly 2 weeks. Qualifiers: Atrial fibrillation type: chronic Qualified Code: I48.2 - Chronic atrial fibrillation (2) COPD (chronic obstructive pulmonary disease) Status: Chronic Comment: COPD is stable on current medication regimen. Well compensated. Qualifiers: COPD type: emphysema Emphysema type: panlobular Qualified Code: J43.1 - Panlobular emphysema (3) Sarcoidosis Status: Chronic Comment: Remains on low-dose steroid therapy and stable and quiescent (4) ESRD (end stage renal disease) on dialysis Status: Chronic Comment: Continue with hemodialysis as per nephrology (5) Diabetes mellitus type 2 in obese Status: Chronic Comment: Well-controlled on single agent therapy (6) Hypertension associated with chronic kidney disease due to type 2 diabetes mellitus Status: Chronic Comment: Adequate control. (7) Status post transcatheter aortic valve replacement (TAVR) using bioprosthesis Status: Acute Comment: Fully functional and tolerated Subjective 24 Hr Interval Summary Free Text/Dictation Patient reports she is having some pain. However she is also cooperating with physical therapy and reports she is tired from doing that. Constitutional: no complaints Respiratory: no complaints Cardiovascular: no complaints Gastrointestinal: no complaints Musculoskeletal: neck pain Exam/Review of Systems Vital Signs Vitals Vital Signs Date Time Temp Pulse Resp B/P Pulse Ox O2 Delivery O2 Flow Rate FiO2 09/30/16 08:00 77 20 100 Nasal Cannula 2.0 09/29/16 20:00 98.5 157/62 09/29/16 17:24 28 Intake and Output 09/29/16 09/29/16 09/30/16 15:00 23:00 07:00 Intake Total 320 ml 220 ml Balance 320 ml 220 ml Exam Constitutional: alert, oriented Neck: non-tender, supple Respiratory: clear to auscultation, normal air movement Cardiovascular: nl pulses, regular rate and rhythm Gastrointestinal: nl liver, spleen, non-tender, soft Results Result Diagram: 09/30/16 0620 6/16/17 0620 Results 24 hrs Laboratory Tests Test 09/29/16 14:50 09/29/16 17:05 09/29/16 21:00 09/30/16 06:20 Sodium Level 134 L 133 L Potassium Level 4.1 4.6 Chloride Level 94 L 96 L Carbon Dioxide Level 29 24 Anion Gap 15 18 H Blood Urea Nitrogen 44 H 56 H Creatinine 5.99 H 6.66 H Glucose Level 141 92 # Calcium Level 9.5 9.7 Total Bilirubin 0.0 L Direct Bilirubin 0.00 Indirect Bilirubin 0.0 Aspartate Amino Transf (AST/SGOT) 19 Alanine Aminotransferase (ALT/SGPT) 25 Alkaline Phosphatase 49 Total Protein 7.0 Albumin 4.4 Globulin 2.60 Albumin/Globulin Ratio 1.69 Bedside Glucose 120 154 White Blood Count 6.6 Red Blood Count 2.79 L Hemoglobin 8.5 L Hematocrit 26.5 L Mean Corpuscular Volume 95.0 Mean Corpuscular Hemoglobin 30.5 Mean Corpuscular Hemoglobin Concent 32.1 Red Cell Distribution Width 16.0 H Platelet Count 142 Mean Platelet Volume 11.2 H Neutrophils % 67.3 Lymphocytes % 20.8 Monocytes % 8.2 Eosinophils % 2.3 Basophils % 0.6 Nucleated Red Blood Cells % 0.0 Neutrophils # 4.5 Lymphocytes # 1.4 Monocytes # 0.5 Eosinophils # 0.2 Basophils # 0.0 Nucleated Red Blood Cells # 0.0 Phosphorus Level 6.7 H Iron Level 63 Total Iron Binding Capacity 253 Percent Iron Saturation 25 Ferritin 412.0 H Test 09/30/16 07:58 09/30/16 12:14 Bedside Glucose 88 110 Medications Medications Current Medications Sodium Biphosphate/ Sodium Phosphate (Fleet Enema) 133 ml DAILY PRN [place] CONSTIPATION; Start 09/28/16 at 23:00 Tramadol HCl (Ultram) 50 mg Q8H PRN PO PAIN Last administered on 09/29/16 18: 29; Admin Dose 50 MG; Start 09/28/16 at 23:00 Prednisone (Prednisone) 1 mg QHS PO Last administered on 09/29/16 21:28; Admin Dose 1 MG; Start 09/29/16 at 21:00 Prednisone (Prednisone) 4 mg DAILY PO Last administered on 09/30/16 08:47; Admin Dose 4 MG; Start 09/29/16 at 09:00 Salmeterol Xinafoate/ Fluticasone (Advair 250/50 Diskus) 1 inh BID INH Last administered on 09/30/16 08:48; Admin Dose 1 INH; Start 09/29/16 at 09:00 Diagnostic Test (Pha) (Accu-Chek) 1 ea 02 XX ; Start 09/29/16 at 02:00 Miscellaneous Information 1 ea NOTE XX ; Start 09/28/16 at 23:00 Glucose (Glutose) 15 gm Q15M PRN PO DECREASED GLUCOSE; Start 09/28/16 at 23:00 Glucose (Glutose) 22.5 gm Q15M PRN PO DECREASED GLUCOSE; Start 09/28/16 at 23: 00 Dextrose (D50w Syringe) 25 ml Q15M PRN IV DECREASED GLUCOSE; Start 09/28/16 at 23:00 Dextrose (D50w Syringe) 50 ml Q15M PRN IV DECREASED GLUCOSE; Start 09/28/16 at 23:00 Glucagon (Glucagen) 1 mg Q15M PRN IM DECREASED GLUCOSE; Start 09/28/16 at 23:00 Glucose (Glutose) 15 gm Q15M PRN BUCCAL DECREASED GLUCOSE; Start 09/28/16 at 23 :00 Linagliptin (Tradjenta) 5 mg DAILY PO Last administered on 09/30/16 08:48; Admin Dose 5 MG; Start 09/29/16 at 09:00 Metoprolol Tartrate (Lopressor) 25 mg BID PO Last administered on 09/30/16 08: 48; Admin Dose 25 MG; Start 09/29/16 at 09:00 Heparin Sodium (Porcine) (Heparin (5000 Units/0.5 ml)) 5,000 unit Q12 SC Last administered on 09/30/16 08:47; Admin Dose 5,000 UNIT; Start 09/29/16 at 09:00 Acetaminophen/ Hydrocodone Bitart ([place] (5/325)) 1 tab Q6H PRN PO PAIN; Start 09/28/16 at 23:00 Acetaminophen/ Hydrocodone Bitart ([place] (5/325)) 2 tab Q6H PRN PO PAIN; Start 09/28/16 at 23:00 Famotidine (Pepcid) 40 mg QHS PO Last administered on 09/29/16 21:04; Admin Dose 40 MG; Start 09/29/16 at 21:00 Fenofibrate (Tricor) 48 mg QAM PO Last administered on 09/30/16 08:47; Admin Dose 48 MG; Start 09/29/16 at 09:00 Folic Acid (Folic Acid) 1 mg BID PO Last administered on 09/30/16 08:46; Admin Dose 1 MG; Start 09/29/16 at 09:00 Eye Lubricant (Artificial Tears Oph) 2 drop Q2H PRN BOTH EYES DRY EYES; Start 09/28/16 at 23:30 Atorvastatin Calcium (Lipitor) 40 mg DAILY@21 PO Last administered on 21:02; Admin Dose 40 MG; Start 09/29/16 at 21:00 Docusate Sodium (Colace) 100 mg Q12H PRN PO CONSTIPATION; Start 09/28/16 at 23: 30 Epoetin César (Epogen (Esrd)) 10,000 units MoWeFr@17 SC ; Start 09/30/16 at 17:00 Docusate Sodium (Colace) 100 mg BID PO Last administered on 09/30/16 08:48; Admin Dose 100 MG; Start 09/29/16 at 09:00 Senna (Senokot) 1 tab HS PO Last administered on 09/29/16 21:03; Admin Dose 1 TAB; Start 09/29/16 at 21:00 Bisacodyl (Dulcolax Supp) 10 mg DAILY PRN [place] CONSTIPATION; Start 09/29/16 at 05 :30 Magnesium Hydroxide (Milk Of Mag) 30 ml BID PRN PO CONSTIPATION; Start at 05:30 Gabapentin (Neurontin) 100 mg 16 PO Last administered on 09/30/16 08:47; Admin Dose 100 MG; Start 09/29/16 at 16:00 Gabapentin (Neurontin) 300 mg QHS PO Last administered on 09/29/16 21:02; Admin Dose 300 MG; Start 09/29/16 at 21:00 TOMER GARCIA MD Sep 30, 2016 13:59
[2016-09-30] MEDS: EPOETIN 10000 UNITS/1 ML INJ (ESRD) SC SCH (16:32)
--- NOTE | 2016-09-30 17:59 | CONS ---
Date/Time of Note Date/Time of Note DATE: 09/30/16 TIME: 17:48 Assessment/Plan Assessment/Plan Chief Complaint/Hosp Course 1. End-stage renal disease on maintenance hemodialysis Monday. The patient is being dialyzed now and is tolerating the procedure well. 2. Cervical vertebrae fracture with rigid brace on 3. Anemia of chronic disease Problems: Consultation Date/Type/Reason Admit Date/Time Sep 28, 2016 at 22:05 Initial Consult Date Type of Consultation: renal 24 HR Interval Summary Free Text/Dictation She is now having a hemodialysis treatment. She is awake and alert. She has no complaints. Constitutional: no complaints Exam/Review of Systems Vital Signs Vitals Vital Signs Date Time Temp Pulse Resp B/P Pulse Ox O2 Delivery O2 Flow Rate FiO2 09/30/16 17:30 77 18 09/30/16 08:00 100 Nasal Cannula 2.0 09/30/16 08:00 98.0 135/68 09/29/16 17:24 28 Intake and Output 09/29/16 09/29/16 09/30/16 15:00 23:00 07:00 Intake Total 320 ml 220 ml Balance 320 ml 220 ml Exam Constitutional: alert, oriented Neck: other Cardiovascular: regular rate and rhythm Gastrointestinal: soft Extremities: edema Results Result Diagram: 09/30/16 0620 09/30/16 0620 Results 24 hrs Laboratory Tests Test 09/29/16 21:00 09/30/16 06:20 09/30/16 07:58 09/30/16 12:14 Bedside Glucose 154 88 110 White Blood Count 6.6 Red Blood Count 2.79 L Hemoglobin 8.5 L Hematocrit 26.5 L Mean Corpuscular Volume 95.0 Mean Corpuscular Hemoglobin 30.5 Mean Corpuscular Hemoglobin Concent 32.1 Red Cell Distribution Width 16.0 H Platelet Count 142 Mean Platelet Volume 11.2 H Neutrophils % 67.3 Lymphocytes % 20.8 Monocytes % 8.2 Eosinophils % 2.3 Basophils % 0.6 Nucleated Red Blood Cells % 0.0 Neutrophils # 4.5 Lymphocytes # 1.4 Monocytes # 0.5 Eosinophils # 0.2 Basophils # 0.0 Nucleated Red Blood Cells # 0.0 Sodium Level 133 L Potassium Level 4.6 Chloride Level 96 L Carbon Dioxide Level 24 Anion Gap 18 H Blood Urea Nitrogen 56 H Creatinine 6.66 H Glucose Level 92 # Calcium Level 9.7 Phosphorus Level 6.7 H Iron Level 63 Total Iron Binding Capacity 253 Percent Iron Saturation 25 Ferritin 412.0 H Test 09/30/16 17:27 Bedside Glucose 136 Medications Medications Current Medications Sodium Biphosphate/ Sodium Phosphate (Fleet Enema) 133 ml DAILY PRN [place] CONSTIPATION; Start 09/28/16 at 23:00 Tramadol HCl (Ultram) 50 mg Q8H PRN PO PAIN Last administered on 09/29/16 18: 29; Admin Dose 50 MG; Start 09/28/16 at 23:00 Prednisone (Prednisone) 1 mg QHS PO Last administered on 09/29/16 21:28; Admin Dose 1 MG; Start 09/29/16 at 21:00 Prednisone (Prednisone) 4 mg DAILY PO Last administered on 09/30/16 08:47; Admin Dose 4 MG; Start 09/29/16 at 09:00 Salmeterol Xinafoate/ Fluticasone (Advair 250/50 Diskus) 1 inh BID INH Last administered on 09/30/16 08:48; Admin Dose 1 INH; Start 09/29/16 at 09:00 Diagnostic Test (Pha) (Accu-Chek) 1 ea 02 XX ; Start 09/29/16 at 02:00 Miscellaneous Information 1 ea NOTE XX ; Start 09/28/16 at 23:00 Glucose (Glutose) 15 gm Q15M PRN PO DECREASED GLUCOSE; Start 09/28/16 at 23:00 Glucose (Glutose) 22.5 gm Q15M PRN PO DECREASED GLUCOSE; Start 09/28/16 at 23: 00 Dextrose (D50w Syringe) 25 ml Q15M PRN IV DECREASED GLUCOSE; Start 09/28/16 at 23:00 Dextrose (D50w Syringe) 50 ml Q15M PRN IV DECREASED GLUCOSE; Start 09/28/16 at 23:00 Glucagon (Glucagen) 1 mg Q15M PRN IM DECREASED GLUCOSE; Start 09/28/16 at 23:00 Glucose (Glutose) 15 gm Q15M PRN BUCCAL DECREASED GLUCOSE; Start 09/28/16 at 23 :00 Linagliptin (Tradjenta) 5 mg DAILY PO Last administered on 09/30/16 08:48; Admin Dose 5 MG; Start 09/29/16 at 09:00 Metoprolol Tartrate (Lopressor) 25 mg BID PO Last administered on 09/30/16 08: 48; Admin Dose 25 MG; Start 09/29/16 at 09:00 Heparin Sodium (Porcine) (Heparin (5000 Units/0.5 ml)) 5,000 unit Q12 SC Last administered on 09/30/16 08:47; Admin Dose 5,000 UNIT; Start 09/29/16 at 09:00 Acetaminophen/ Hydrocodone Bitart ([place] (5/325)) 1 tab Q6H PRN PO PAIN; Start 09/28/16 at 23:00 Acetaminophen/ Hydrocodone Bitart ([place] (5/325)) 2 tab Q6H PRN PO PAIN; Start 09/28/16 at 23:00 Famotidine (Pepcid) 40 mg QHS PO Last administered on 09/29/16 21:04; Admin Dose 40 MG; Start 09/29/16 at 21:00 Fenofibrate (Tricor) 48 mg QAM PO Last administered on 09/30/16 08:47; Admin Dose 48 MG; Start 09/29/16 at 09:00 Folic Acid (Folic Acid) 1 mg BID PO Last administered on 09/30/16 08:46; Admin Dose 1 MG; Start 09/29/16 at 09:00 Eye Lubricant (Artificial Tears Oph) 2 drop Q2H PRN BOTH EYES DRY EYES; Start 09/28/16 at 23:30 Atorvastatin Calcium (Lipitor) 40 mg DAILY@21 PO Last administered on 21:02; Admin Dose 40 MG; Start 09/29/16 at 21:00 Docusate Sodium (Colace) 100 mg Q12H PRN PO CONSTIPATION; Start 09/28/16 at 23: 30 Epoetin César (Epogen (Esrd)) 10,000 units MoWeFr@17 SC Last administered on 16:32; Admin Dose 10,000 UNITS; Start 09/30/16 at 17:00 Docusate Sodium (Colace) 100 mg BID PO Last administered on 09/30/16 08:48; Admin Dose 100 MG; Start 09/29/16 at 09:00 Senna (Senokot) 1 tab HS PO Last administered on 09/29/16 21:03; Admin Dose 1 TAB; Start 09/29/16 at 21:00 Bisacodyl (Dulcolax Supp) 10 mg DAILY PRN [place] CONSTIPATION; Start 09/29/16 at 05 :30 Magnesium Hydroxide (Milk Of Mag) 30 ml BID PRN PO CONSTIPATION; Start at 05:30 Gabapentin (Neurontin) 100 mg 09,16 PO Last administered on 09/30/16 16:30; Admin Dose 100 MG; Start 09/29/16 at 16:00 Gabapentin (Neurontin) 300 mg QHS PO Last administered on 09/29/16 21:02; Admin Dose 300 MG; Start 09/29/16 at 21:00 FARIDA BARRERA MD Sep 30, 2016 17:58
[2016-09-30] MEDS: ATORVASTATIN 40 MG TAB PO SCH (20:35)
[2016-09-30] MEDS: GABAPENTIN 300 MG CAP PO SCH (20:35)
[2016-09-30] MEDS: SENNA TAB PO SCH (20:35)
[2016-09-30] MEDS: FAMOTIDINE 20 MG TAB PO SCH (20:36)
[2016-09-30] MEDS: traMADol 50 MG TAB PO PRN (20:36)
[2016-10-01] MEDS: ALBUTEROL/IPRATROPIUM (NEB) 3 ML AMP HHN SCH ×6 (00:47→21:10)
[2016-10-01] MEDS: ACCUCHECK AT 2AM (Patients on SS coverage) XX SCH (02:00)
[2016-10-01 07:30] VITALS: BP 122/58; RESP 20
[2016-10-01] MEDS: Insulin NOVOLOG SS MILD Algorithm (SS with meals and bedtime) SC SCH ×4 (07:35→20:11)
[2016-10-01] MEDS: SEVELAMER CARBONATE 0.8 GM PKT PO SCH ×3 (08:09→17:33)
--- NOTE | 2016-10-01 08:41 | PN ---
Date/Time of Note Date/Time of Note DATE: 10/01/16 TIME: 08:36 Assessment/Plan VTE Prophylaxis VTE Prophylaxis Intervention: heparin Lines/Catheters IV Catheter Type (from Nrs): Saline Lock Urinary Cath still in place: No Assessment/Plan Problems: (1) Dens fracture Status: Acute Comment: C-spine precautions. Now in rehab. Cont. rehab daily. (2) Atrial fibrillation Status: Chronic Comment: Cardiology following. Restart anticoagulation in 2 weeks. Qualifiers: Atrial fibrillation type: chronic Qualified Code: I48.2 - Chronic atrial fibrillation (3) Sarcoidosis Status: Chronic Comment: On low-dose steroids. Stable from pulmonary standpoint. (4) ESRD (end stage renal disease) on dialysis Status: Chronic Comment: HD per nephrology. (5) Diabetes mellitus type 2 in obese Status: Chronic Comment: Good glycemic control. Cont. current regimen. (6) Hypertension associated with chronic kidney disease due to type 2 diabetes mellitus Status: Chronic Comment: Good BP control. Will monitor. (7) Diastolic dysfunction Status: Chronic Comment: Cardiology following. Pt. currently optimized. Subjective 24 Hr Interval Summary Constitutional: improved, no complaints Respiratory: no complaints Cardiovascular: no complaints Gastrointestinal: no complaints Genitourinary: no complaints Musculoskeletal: no complaints Neurologic: no complaints Exam/Review of Systems Vital Signs Vitals VS - Last 72 Hours, by Label Date Time Temp Pulse Resp B/P Pulse Ox O2 Delivery O2 Flow Rate FiO2 10/01/16 05:28 77 20 98 Nasal Cannula 2.0 10/01/16 00:48 78 20 98 Nasal Cannula 2.0 10/01/16 00:48 2.0 09/30/16 21:24 82 20 98 Nasal Cannula 2.0 09/30/16 21:24 2.0 09/30/16 20:00 98.2 77 18 120/65 100 09/30/16 19:47 Nasal Cannula 2.0 09/30/16 17:30 77 18 09/30/16 17:30 77 09/30/16 17:00 76 09/30/16 16:30 75 09/30/16 16:00 76 09/30/16 15:30 75 09/30/16 15:00 76 09/30/16 14:30 76 18 09/30/16 14:30 77 09/30/16 08:00 77 20 100 Nasal Cannula 2.0 09/30/16 08:00 Nasal Cannula 2.0 09/30/16 08:00 98.0 84 20 135/68 100 Nasal Cannula 2.0 09/30/16 04:37 70 18 98 Nasal Cannula 2.0 09/30/16 01:33 2.0 09/30/16 01:31 88 20 97 Nasal Cannula 2.0 09/29/16 23:41 2.0 09/29/16 20:04 82 20 99 Nasal Cannula 2.0 09/29/16 20:00 98.5 93 18 157/62 99 09/29/16 20:00 Nasal Cannula 2.0 09/29/16 17:24 2.0 09/29/16 17:24 98 22 Nasal Cannula 2.0 28 09/29/16 13:01 101 18 83 21 09/29/16 11:39 Nasal Cannula 2.0 09/29/16 09:02 90 17 100 21 09/29/16 07:30 98.4 69 20 129/63 100 09/29/16 07:10 98.4 69 20 129/83 100 Nasal Cannula 2.0 09/29/16 05:14 78 18 97 Nasal Cannula 2.0 09/29/16 05:14 97 2.0 09/29/16 01:41 99 2.0 09/29/16 01:41 78 18 99 Nasal Cannula 2.0 09/29/16 01:41 2.0 09/28/16 22:30 Nasal Cannula 2.0 09/28/16 22:15 98.4 79 18 152/67 99 Nasal Cannula 2.0 Vital Signs Date Time Temp Pulse Resp B/P Pulse Ox O2 Delivery O2 Flow Rate FiO2 10/01/16 05:28 77 20 98 Nasal Cannula 2.0 09/30/16 20:00 98.2 120/65 09/29/16 17:24 28 Intake and Output 09/30/16 09/30/16 10/01/16 15:00 23:00 07:00 Intake Total 600 ml 220 ml Output Total 6500 ml Balance -5900 ml 220 ml Exam Constitutional: alert, frail, obese, oriented Psych: nl mood/affect, no complaints Respiratory: clear to auscultation, normal air movement Cardiovascular: nl pulses, regular rate and rhythm, No edema, No murmurs/extra sounds, No rub Gastrointestinal: bowel sounds, nl liver, spleen, non-tender, soft, No mass, No rebound or guarding Musculoskeletal: nl extremities to inspection Extremities: normal pulses, No clubbing, No cyanosis, No edema 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: HELP AID II-XII intact, nl mental status, nl speech, nl strength Additional Comments Bedside Glucose - 72 Hours Test 09/29/16 07:54 09/29/16 12:06 09/29/16 17:05 09/29/16 21:00 Bedside Glucose 98mg/dL (70-220) 105mg/dL (70-220) 120mg/dL (70-220) 154mg/dL (70-220) Test 09/30/16 07:58 09/30/16 12:14 09/30/16 17:27 09/30/16 20:18 Bedside Glucose 88mg/dL (70-220) 110mg/dL (70-220) 136mg/dL (70-220) 97mg/dL (70-220) Test 10/01/16 07:34 Bedside Glucose 83mg/dL (70-220) Results Result Diagram: 09/30/1620 09/30/16 0620 Results 24 hrs Laboratory Tests Test 09/30/16 12:14 09/30/16 17:27 09/30/16 20:18 10/01/16 07:34 Bedside Glucose 110 136 97 83 Medications Medications Current Medications Sodium Biphosphate/ Sodium Phosphate (Fleet Enema) 133 ml DAILY PRN [place] CONSTIPATION; Start 09/28/16 at 23:00 Tramadol HCl (Ultram) 50 mg Q8H PRN PO PAIN Last administered on 09/30/16 20: 36; Admin Dose 50 MG; Start 09/28/16 at 23:00 Prednisone (Prednisone) 1 mg QHS PO Last administered on 09/30/16 20:36; Admin Dose 1 MG; Start 09/29/16 at 21:00 Prednisone (Prednisone) 4 mg DAILY PO Last administered on 09/30/16 08:47; Admin Dose 4 MG; Start 09/29/16 at 09:00 Salmeterol Xinafoate/ Fluticasone (Advair 250/50 Diskus) 1 inh BID INH Last administered on 09/30/16 20:34; Admin Dose 1 INH; Start 09/29/16 at 09:00 Diagnostic Test (Pha) (Accu-Chek) 1 ea 02 XX ; Start 09/29/16 at 02:00 Miscellaneous Information 1 ea NOTE XX ; Start 09/28/16 at 23:00 Glucose (Glutose) 15 gm Q15M PRN PO DECREASED GLUCOSE; Start 09/28/16 at 23:00 Glucose (Glutose) 22.5 gm Q15M PRN PO DECREASED GLUCOSE; Start 09/28/16 at 23: 00 Dextrose (D50w Syringe) 25 ml Q15M PRN IV DECREASED GLUCOSE; Start 09/28/16 at 23:00 Dextrose (D50w Syringe) 50 ml Q15M PRN IV DECREASED GLUCOSE; Start 09/28/16 at 23:00 Glucagon (Glucagen) 1 mg Q15M PRN IM DECREASED GLUCOSE; Start 09/28/16 at 23:00 Glucose (Glutose) 15 gm Q15M PRN BUCCAL DECREASED GLUCOSE; Start 09/28/16 at 23 :00 Linagliptin (Tradjenta) 5 mg DAILY PO Last administered on 09/30/16 08:48; Admin Dose 5 MG; Start 09/29/16 at 09:00 Metoprolol Tartrate (Lopressor) 25 mg BID PO Last administered on 09/30/16 20: 35; Admin Dose 25 MG; Start 09/29/16 at 09:00 Heparin Sodium (Porcine) (Heparin (5000 Units/0.5 ml)) 5,000 unit Q12 SC Last administered on 09/30/16 20:39; Admin Dose 5,000 UNIT; Start 09/29/16 at 09:00 Acetaminophen/ Hydrocodone Bitart ([place] (5/325)) 1 tab Q6H PRN PO PAIN; Start 09/28/16 at 23:00 Acetaminophen/ Hydrocodone Bitart ([place] (5/325)) 2 tab Q6H PRN PO PAIN; Start 09/28/16 at 23:00 Famotidine (Pepcid) 40 mg QHS PO Last administered on 09/30/16 20:36; Admin Dose 40 MG; Start 09/29/16 at 21:00 Fenofibrate (Tricor) 48 mg QAM PO Last administered on 09/30/16 08:47; Admin Dose 48 MG; Start 09/29/16 at 09:00 Folic Acid (Folic Acid) 1 mg BID PO Last administered on 09/30/16 20:35; Admin Dose 1 MG; Start 09/29/16 at 09:00 Eye Lubricant (Artificial Tears Oph) 2 drop Q2H PRN BOTH EYES DRY EYES; Start 09/28/16 at 23:30 Atorvastatin Calcium (Lipitor) 40 mg DAILY@21 PO Last administered on 20:35; Admin Dose 40 MG; Start 09/29/16 at 21:00 Docusate Sodium (Colace) 100 mg Q12H PRN PO CONSTIPATION; Start 09/28/16 at 23: 30 Epoetin César (Epogen (Esrd)) 10,000 units MoWeFr@17 SC Last administered on 16:32; Admin Dose 10,000 UNITS; Start 09/30/16 at 17:00 Docusate Sodium (Colace) 100 mg BID PO Last administered on 09/30/16 20:34; Admin Dose 100 MG; Start 09/29/16 at 09:00 Senna (Senokot) 1 tab HS PO Last administered on 09/30/16 20:35; Admin Dose 1 TAB; Start 09/29/16 at 21:00 Bisacodyl (Dulcolax Supp) 10 mg DAILY PRN [place] CONSTIPATION; Start 09/29/16 at 05 :30 Magnesium Hydroxide (Milk Of Mag) 30 ml BID PRN PO CONSTIPATION; Start at 05:30 Gabapentin (Neurontin) 100 mg PO Last administered on 09/30/16 16:30; Admin Dose 100 MG; Start 09/29/16 at 16:00 Gabapentin (Neurontin) 300 mg QHS PO Last administered on 09/30/16 20:35; Admin Dose 300 MG; Start 09/29/16 at 21:00 SOBEIDA ENRIQUEZ MD Oct 01, 2016 08:40
[2016-10-01] MEDS: predniSONE 1 MG TAB PO SCH ×3 (09:26→20:07)
[2016-10-01] MEDS: LINAGLIPTIN 5 MG TABLET PO SCH (09:27)
[2016-10-01] MEDS: METOPROLOL 25 MG TAB PO SCH ×2 (09:27→20:08)
[2016-10-01] MEDS: DOCUSATE SODIUM 100 MG CAP PO SCH ×2 (09:27→20:08)
[2016-10-01] MEDS: FOLIC ACID 1 MG TAB PO SCH ×2 (09:27→20:08)
[2016-10-01] MEDS: HEPARIN 5,000 UNIT/0.5 ML VIAL SC SCH ×2 (09:34→20:13)
[2016-10-01] MEDS: SALMETEROL/FLUTICASONE 250/50 INHA INH SCH ×2 (09:35→20:07)
[2016-10-01] MEDS: FENOFIBRATE 48 MG TAB PO SCH (09:37)
[2016-10-01] MEDS: GABAPENTIN 100 MG CAP PO SCH ×2 (09:45→16:57)
--- NOTE | 2016-10-01 09:55 | PN ---
Date/Time of Note Date/Time of Note DATE: 10/01/16 TIME: 09:49 Assessment/Plan VTE Prophylaxis VTE Prophylaxis Intervention: heparin Lines/Catheters IV Catheter Type (from Nrsg): Saline Lock Urinary Cath still in place: No Assessment/Plan Assessment/Plan 1. Status post fall with type II/III C2 fracture and Blunt head trauma, with impaired mobility/gait/ADLs/cognition. Continue nonoperative treatment per neurosurgery, hard cervical collar. Continue PT/OT/ST. Mod to max assist for transfers. 2. Acute pain syndrome secondary to above, also with history of polyneuropathy. Pain controlled. Continue pain regimen. Minimize narcotics use to avoid delirium /sedation. 3. End-stage renal disease. Continue dialysis per internal medicine/nephrology. 4. Dysphagia. Continue mechanical soft diet per ST. Maintain aspiration precautions. 5. CAD status post stent. Continue medical management. 6. Sarcoidosis. On steroids per internal medicine/pulmonary. 7. Diabetes mellitus type 2. Blood sugars controlled, continue current management. 8. Hypertension. BP controlled. Continue current management. 9. Chronic atrial fibrillation. Rate controlled. Continue medical management per internal medicine/cardiology. 10. COPD. Stable. Continue breathing treatments. Pulmonary following. 11. Anemia of chronic disease. On epogen per nephrology/internal medicine. Monitor hemoglobin/hematocrit. Subjective 24 Hr Interval Summary Free Text/Dictation Rehab progress note Subjective: Reports minimal neck pain currently, no new changes. ROS: Denies headache, no dizziness, no chills, no shortness of breath, no chest pain, no abdominal pain. Exam/Review of Systems Vital Signs Vitals Vital Signs Date Time Temp Pulse Resp B/P Pulse Ox O2 Delivery O2 Flow Rate FiO2 10/01/16 05:28 77 20 98 Nasal Cannula 2.0 09/30/16 20:00 98.2 120/65 09/29/16 17:24 28 Intake and Output 09/30/16 09/30/16 10/01/16 15:00 23:00 07:00 Intake Total 600 ml 220 ml Output Total 6500 ml Balance -5900 ml 220 ml Exam General: Awake, alert, no acute distress Neck: Cervical collar in place CV: Regular rate, s1s2 Lungs: Clear to auscultation anteriorly, no wheezing Abdomen soft, nontender Extremities: No cyanosis, no new swelling Neuro: Good adventure therapist strength. Antigravity strength B DF/PF. Follows simple commands. Results Result Diagram: 09/30/16 0620 09/30/16 0620 Results 24 hrs Laboratory Tests Test 09/30/16 12:14 09/30/16 17:27 09/30/16 20:18 10/01/16 07:34 Bedside Glucose 110 136 97 83 Medications Medications Current Medications Sodium Biphosphate/ Sodium Phosphate (Fleet Enema) 133 ml DAILY PRN MD CONSTIPATION; Start 09/28/16 at 23:00 Tramadol HCl (Ultram) 50 mg Q8H PRN PO PAIN Last administered on 09/30/16 20: 36; Admin Dose 50 MG; Start 09/28/16 at 23:00 Prednisone (Prednisone) 1 mg QHS PO Last administered on 09/30/16 20:36; Admin Dose 1 MG; Start 09/29/16 at 21:00 Prednisone (Prednisone) 4 mg DAILY PO Last administered on 10/01/16 09:26; Admin Dose 4 MG; Start 09/29/16 at 09:00 Salmeterol Xinafoate/ Fluticasone (Advair 250/50 Diskus) 1 inh BID INH Last administered on 10/01/16 09:35; Admin Dose 1 INH; Start 09/29/16 at 09:00 Diagnostic Test (Pha) (Accu-Chek) 1 ea 02 XX ; Start 09/29/16 at 02:00 Miscellaneous Information 1 ea NOTE XX ; Start 09/28/16 at 23:00 Glucose (Glutose) 15 gm Q15M PRN PO DECREASED GLUCOSE; Start 09/28/16 at 23:00 Glucose (Glutose) 22.5 gm Q15M PRN PO DECREASED GLUCOSE; Start 09/28/16 at 23: 00 Dextrose (D50w Syringe) 25 ml Q15M PRN IV DECREASED GLUCOSE; Start 09/28/16 at 23:00 Dextrose (D50w Syringe) 50 ml Q15M PRN IV DECREASED GLUCOSE; Start 09/28/16 at 23:00 Glucagon (Glucagen) 1 mg Q15M PRN IM DECREASED GLUCOSE; Start 09/28/16 at 23:00 Glucose (Glutose) 15 gm Q15M PRN BUCCAL DECREASED GLUCOSE; Start 09/28/16 at 23 :00 Linagliptin (Tradjenta) 5 mg DAILY PO Last administered on 10/01/16 09:27; Admin Dose 5 MG; Start 09/29/16 at 09:00 Metoprolol Tartrate (Lopressor) 25 mg BID PO Last administered on 10/01/16 09: 27; Admin Dose 25 MG; Start 09/29/16 at 09:00 Heparin Sodium (Porcine) (Heparin (5000 Units/0.5 ml)) 5,000 unit Q12 SC Last administered on 10/01/16 09:34; Admin Dose 5,000 UNIT; Start 09/29/16 at 09:00 Acetaminophen/ Hydrocodone Bitart ([place] (5/325)) 1 tab Q6H PRN PO PAIN; Start 09/28/16 at 23:00 Acetaminophen/ Hydrocodone Bitart ([place] (5/325)) 2 tab Q6H PRN PO PAIN; Start 09/28/16 at 23:00 Famotidine (Pepcid) 40 mg QHS PO Last administered on 09/30/16 20:36; Admin Dose 40 MG; Start 09/29/16 at 21:00 Fenofibrate (Tricor) 48 mg QAM PO Last administered on 10/01/16 09:37; Admin Dose 48 MG; Start 09/29/16 at 09:00 Folic Acid (Folic Acid) 1 mg BID PO Last administered on 10/01/16 09:27; Admin Dose 1 MG; Start 09/29/16 at 09:00 Eye Lubricant (Artificial Tears Oph) 2 drop Q2H PRN BOTH EYES DRY EYES; Start 09/28/16 at 23:30 Atorvastatin Calcium (Lipitor) 40 mg DAILY@21 PO Last administered on 20:35; Admin Dose 40 MG; Start 09/29/16 at 21:00 Docusate Sodium (Colace) 100 mg Q12H PRN PO CONSTIPATION; Start 09/28/16 at 23: 30 Epoetin César (Epogen (Esrd)) 10,000 units MoWeFr@17 SC Last administered on 16:32; Admin Dose 10,000 UNITS; Start 09/30/16 at 17:00 Docusate Sodium (Colace) 100 mg BID PO Last administered on 10/01/16 09:27; Admin Dose 100 MG; Start 09/29/16 at 09:00 Senna (Senokot) 1 tab HS PO Last administered on 09/30/16 20:35; Admin Dose 1 TAB; Start 09/29/16 at 21:00 Bisacodyl (Dulcolax Supp) 10 mg DAILY PRN MD CONSTIPATION; Start 09/29/16 at 05 :30 Magnesium Hydroxide (Milk Of Mag) 30 ml BID PRN PO CONSTIPATION; Start at 05:30 Gabapentin (Neurontin) 100 mg PO Last administered on 10/01/16 09:45; Admin Dose 100 MG; Start 09/29/16 at 16:00 Gabapentin (Neurontin) 300 mg QHS PO Last administered on 09/30/16 20:35; Admin Dose 300 MG; Start 09/29/16 at 21:00 JENNY MOTT Oct 01, 2016 09:55
[2016-10-01 19:41] VITALS: BP 115/51; RESP 19
[2016-10-01] MEDS: GABAPENTIN 300 MG CAP PO SCH (20:07)
[2016-10-01] MEDS: FAMOTIDINE 20 MG TAB PO SCH (20:07)
[2016-10-01] MEDS: ATORVASTATIN 40 MG TAB PO SCH (20:08)
[2016-10-01] MEDS: SENNA TAB PO SCH (20:08)
[2016-10-01] MEDS: traMADol 50 MG TAB PO PRN (20:08)
--- NOTE | 2016-10-01 21:44 | CONS ---
Date/Time of Note Date/Time of Note DATE: 10/01/16 TIME: 21:41 Assessment/Plan Assessment/Plan Additional Assessment/Plan 1. End-stage renal disease on maintenance hemodialysis Monday. Next in 2 days 2. Cervical vertebrae fracture with rigid brace on 3. Anemia of chronic disease Consultation Date/Type/Reason Admit Date/Time Sep 28, 2016 at 22:05 Initial Consult Date Type of Consultation: renal 24 HR Interval Summary Free Text/Dictation The patient is alert without complaints. She ambulated today and feels that she is getting stronger. Exam/Review of Systems Vital Signs Vitals Vital Signs Date Time Temp Pulse Resp B/P Pulse Ox O2 Delivery O2 Flow Rate FiO2 10/01/16 21:14 78 20 98 Nasal Cannula 2.0 10/01/16 19:41 98.0 115/51 09/29/16 17:24 28 Intake and Output 09/30/16 09/30/16 10/01/16 15:00 23:00 07:00 Intake Total 600 ml 220 ml Output Total 6500 ml Balance -5900 ml 220 ml Exam Constitutional: alert Neck: other (cervical collar ) Respiratory: clear to auscultation Cardiovascular: regular rate and rhythm Gastrointestinal: non-tender, soft Extremities: No edema Results Result Diagram: 09/30/16 0620 09/30/16 0620 Results 24 hrs Laboratory Tests Test 10/01/16 07:34 10/01/16 12:03 10/01/16 20:10 Bedside Glucose 83 131 131 Medications Medications Current Medications Sodium Biphosphate/ Sodium Phosphate (Fleet Enema) 133 ml DAILY PRN [place] CONSTIPATION; Start 09/28/16 at 23:00 Tramadol HCl (Ultram) 50 mg Q8H PRN PO PAIN Last administered on 10/01/16 20: 08; Admin Dose 50 MG; Start 09/28/16 at 23:00 Prednisone (Prednisone) 1 mg QHS PO Last administered on 10/01/16 20:07; Admin Dose 1 MG; Start 09/29/16 at 21:00 Prednisone (Prednisone) 4 mg DAILY PO Last administered on 10/01/16 09:26; Admin Dose 4 MG; Start 09/29/16 at 09:00 Salmeterol Xinafoate/ Fluticasone (Advair 250/50 Diskus) 1 inh BID INH Last administered on 10/01/16 20:07; Admin Dose 1 INH; Start 09/29/16 at 09:00 Diagnostic Test (Pha) (Accu-Chek) 1 ea 02 XX ; Start 09/29/16 at 02:00 Miscellaneous Information 1 ea NOTE XX ; Start 09/28/16 at 23:00 Glucose (Glutose) 15 gm Q15M PRN PO DECREASED GLUCOSE; Start 09/28/16 at 23:00 Glucose (Glutose) 22.5 gm Q15M PRN PO DECREASED GLUCOSE; Start 09/28/16 at 23: 00 Dextrose (D50w Syringe) 25 ml Q15M PRN IV DECREASED GLUCOSE; Start 09/28/16 at 23:00 Dextrose (D50w Syringe) 50 ml Q15M PRN IV DECREASED GLUCOSE; Start 09/28/16 at 23:00 Glucagon (Glucagen) 1 mg Q15M PRN IM DECREASED GLUCOSE; Start 09/28/16 at 23:00 Glucose (Glutose) 15 gm Q15M PRN BUCCAL DECREASED GLUCOSE; Start 09/28/16 at 23 :00 Linagliptin (Tradjenta) 5 mg DAILY PO Last administered on 10/01/16 09:27; Admin Dose 5 MG; Start 09/29/16 at 09:00 Metoprolol Tartrate (Lopressor) 25 mg BID PO Last administered on 10/01/16 09: 27; Admin Dose 25 MG; Start 09/29/16 at 09:00 Heparin Sodium (Porcine) (Heparin (5000 Units/0.5 ml)) 5,000 unit Q12 SC Last administered on 10/01/16 20:13; Admin Dose 5,000 UNIT; Start 09/29/16 at 09:00 Acetaminophen/ Hydrocodone Bitart ([place] (5/325)) 1 tab Q6H PRN PO PAIN; Start 09/28/16 at 23:00 Acetaminophen/ Hydrocodone Bitart ([place] (5/325)) 2 tab Q6H PRN PO PAIN; Start 09/28/16 at 23:00 Famotidine (Pepcid) 40 mg QHS PO Last administered on 10/01/16 20:07; Admin Dose 40 MG; Start 09/29/16 at 21:00 Fenofibrate (Tricor) 48 mg QAM PO Last administered on 10/01/16 09:37; Admin Dose 48 MG; Start 09/29/16 at 09:00 Folic Acid (Folic Acid) 1 mg BID PO Last administered on 10/01/16 20:08; Admin Dose 1 MG; Start 09/29/16 at 09:00 Eye Lubricant (Artificial Tears Oph) 2 drop Q2H PRN BOTH EYES DRY EYES; Start 09/28/16 at 23:30 Atorvastatin Calcium (Lipitor) 40 mg DAILY@21 PO Last administered on 20:08; Admin Dose 40 MG; Start 09/29/16 at 21:00 Docusate Sodium (Colace) 100 mg Q12H PRN PO CONSTIPATION; Start 09/28/16 at 23: 30 Epoetin César (Epogen (Esrd)) 10,000 units MoWeFr@17 SC Last administered on 16:32; Admin Dose 10,000 UNITS; Start 09/30/16 at 17:00 Docusate Sodium (Colace) 100 mg BID PO Last administered on 10/01/16 20:08; Admin Dose 100 MG; Start 09/29/16 at 09:00 Senna (Senokot) 1 tab HS PO Last administered on 10/01/16 20:08; Admin Dose 1 TAB; Start 09/29/16 at 21:00 Bisacodyl (Dulcolax Supp) 10 mg DAILY PRN [place] CONSTIPATION; Start 09/29/16 at 05 :30 Magnesium Hydroxide (Milk Of Mag) 30 ml BID PRN PO CONSTIPATION; Start at 05:30 Gabapentin (Neurontin) 100 mg 16 PO Last administered on 10/01/16 16:57; Admin Dose 100 MG; Start 09/29/16 at 16:00 Gabapentin (Neurontin) 300 mg QHS PO Last administered on 10/01/16 20:07; Admin Dose 300 MG; Start 09/29/16 at 21:00 ERLINDA MELGAR MD Oct 01, 2016 21:44
[2016-10-02] MEDS: ALBUTEROL/IPRATROPIUM (NEB) 3 ML AMP HHN SCH ×6 (00:57→20:42)
[2016-10-02] MEDS: ACCUCHECK AT 2AM (Patients on SS coverage) XX SCH (02:00)
[2016-10-02] MEDS: Insulin NOVOLOG SS MILD Algorithm (SS with meals and bedtime) SC SCH ×4 (07:59→20:00)
[2016-10-02] MEDS: SEVELAMER CARBONATE 0.8 GM PKT PO SCH ×3 (08:00→17:34)
[2016-10-02] MEDS: predniSONE 1 MG TAB PO SCH ×3 (09:35→20:30)
[2016-10-02] MEDS: FOLIC ACID 1 MG TAB PO SCH ×2 (09:35→20:29)
[2016-10-02] MEDS: LINAGLIPTIN 5 MG TABLET PO SCH (09:35)
[2016-10-02] MEDS: FENOFIBRATE 48 MG TAB PO SCH (09:35)
[2016-10-02] MEDS: GABAPENTIN 100 MG CAP PO SCH ×2 (09:35→16:31)
[2016-10-02] MEDS: METOPROLOL 25 MG TAB PO SCH ×2 (09:36→20:31)
[2016-10-02] MEDS: DOCUSATE SODIUM 100 MG CAP PO SCH ×2 (09:36→20:29)
[2016-10-02] MEDS: SALMETEROL/FLUTICASONE 250/50 INHA INH SCH ×2 (09:36→20:29)
[2016-10-02] MEDS: HEPARIN 5,000 UNIT/0.5 ML VIAL SC SCH ×2 (09:38→20:38)
--- NOTE | 2016-10-02 09:53 | PN ---
Date/Time of Note Date/Time of Note DATE: 10/02/16 TIME: 09:50 Assessment/Plan VTE Prophylaxis VTE Prophylaxis Intervention: heparin Lines/Catheters IV Catheter Type (from Nrsg): Saline Lock Urinary Cath still in place: No Assessment/Plan Assessment/Plan 1. Status post fall with type II/III C2 fracture and Blunt head trauma, with impaired mobility/gait/ADLs/cognition. Continue nonoperative treatment per neurosurgery, hard cervical collar. Continue PT/OT/ST. Sitting balance fair minus, standing balance poor/poor plus. 2. Acute pain syndrome secondary to above, also with history of polyneuropathy. Pain controlled, continue pain regimen including prn tramadol/norco. 3. End-stage renal disease. On dialysis per internal medicine/nephrology. 4. Dysphagia. Continue mechanical soft diet per ST. Maintain aspiration precautions. Continue ST. 5. Coronary artery disease. Continue medical management. 6. Sarcoidosis. Stable. On steroids per internal medicine/pulmonary. 7. Diabetes mellitus type 2. Blood sugars controlled, continue current management. 8. Hypertension. BP controlled. Continue current management. 9. Chronic atrial fibrillation. Rate controlled. Continue medical management per internal medicine/cardiology. 10. COPD. Stable. Continue to monitor pulmonary status. Continue breathing treatments. 11. Anemia of chronic disease. On epogen per nephrology/internal medicine. Monitor hemoglobin/hematocrit. Subjective 24 Hr Interval Summary Free Text/Dictation Rehab progress note Subjective/History: No acute overnight events per nursing. Patient reports mild pain in the neck region, no radicular symptoms, no new weakness. ROS: Patient reports bowel movement yesterday. Denies chest pain, no shortness of breath, no abdominal pain, no nausea, no vomiting, no coughing. Exam/Review of Systems Vital Signs Vitals Vital Signs Date Time Temp Pulse Resp B/P Pulse Ox O2 Delivery O2 Flow Rate FiO2 10/02/16 05:53 76 18 94 Nasal Cannula 2.0 10/01/16 19:41 98.0 115/51 09/29/16 17:24 28 Intake and Output 10/01/16 10/01/16 10/02/16 15:00 23:00 07:00 Intake Total 530 ml 200 ml Balance 530 ml 200 ml Exam General: Awake, alert, no acute distress Neck: Cervical collar in place CV: Regular rate, s1s2 Lungs: Symmetrical air entry bilaterally, no wheezing Abdomen soft, nontender Extremities: No cyanosis, no new swelling Neuro: No focal changes. Follows simple commands. Results Result Diagram: 09/30/16 0620 09/30/16 0620 Results 24 hrs Laboratory Tests Test 10/01/16 12:03 10/01/16 20:10 10/02/16 07:36 Bedside Glucose 131 131 143 Medications Medications Current Medications Sodium Biphosphate/ Sodium Phosphate (Fleet Enema) 133 ml DAILY PRN [place] CONSTIPATION; Start 09/28/16 at 23:00 Tramadol HCl (Ultram) 50 mg Q8H PRN PO PAIN Last administered on 10/01/16 20: 08; Admin Dose 50 MG; Start 09/28/16 at 23:00 Prednisone (Prednisone) 1 mg QHS PO Last administered on 10/01/16 20:07; Admin Dose 1 MG; Start 09/29/16 at 21:00 Prednisone (Prednisone) 4 mg DAILY PO Last administered on 10/02/16 09:35; Admin Dose 4 MG; Start 09/29/16 at 09:00 Salmeterol Xinafoate/ Fluticasone (Advair 250/50 Diskus) 1 inh BID INH Last administered on 10/02/16 09:36; Admin Dose 1 INH; Start 09/29/16 at 09:00 Diagnostic Test (Pha) (Accu-Chek) 1 ea 02 XX ; Start 09/29/16 at 02:00 Miscellaneous Information 1 ea NOTE XX ; Start 09/28/16 at 23:00 Glucose (Glutose) 15 gm Q15M PRN PO DECREASED GLUCOSE; Start 09/28/16 at 23:00 Glucose (Glutose) 22.5 gm Q15M PRN PO DECREASED GLUCOSE; Start 09/28/16 at 23: 00 Dextrose (D50w Syringe) 25 ml Q15M PRN IV DECREASED GLUCOSE; Start 09/28/16 at 23:00 Dextrose (D50w Syringe) 50 ml Q15M PRN IV DECREASED GLUCOSE; Start 09/28/16 at 23:00 Glucagon (Glucagen) 1 mg Q15M PRN IM DECREASED GLUCOSE; Start 09/28/16 at 23:00 Glucose (Glutose) 15 gm Q15M PRN BUCCAL DECREASED GLUCOSE; Start 09/28/16 at 23 :00 Linagliptin (Tradjenta) 5 mg DAILY PO Last administered on 10/02/16 09:35; Admin Dose 5 MG; Start 09/29/16 at 09:00 Metoprolol Tartrate (Lopressor) 25 mg BID PO Last administered on 10/02/16 09: 36; Admin Dose 25 MG; Start 09/29/16 at 09:00 Heparin Sodium (Porcine) (Heparin (5000 Units/0.5 ml)) 5,000 unit Q12 SC Last administered on 10/02/16 09:38; Admin Dose 5,000 UNIT; Start 09/29/16 at 09:00 Acetaminophen/ Hydrocodone Bitart ([place] (5/325)) 1 tab Q6H PRN PO PAIN; Start 09/28/16 at 23:00 Acetaminophen/ Hydrocodone Bitart ([place] (5/325)) 2 tab Q6H PRN PO PAIN; Start 09/28/16 at 23:00 Famotidine (Pepcid) 40 mg QHS PO Last administered on 10/01/16 20:07; Admin Dose 40 MG; Start 09/29/16 at 21:00 Fenofibrate (Tricor) 48 mg QAM PO Last administered on 10/02/16 09:35; Admin Dose 48 MG; Start 09/29/16 at 09:00 Folic Acid (Folic Acid) 1 mg BID PO Last administered on 10/02/16 09:35; Admin Dose 1 MG; Start 09/29/16 at 09:00 Eye Lubricant (Artificial Tears Oph) 2 drop Q2H PRN BOTH EYES DRY EYES; Start 09/28/16 at 23:30 Atorvastatin Calcium (Lipitor) 40 mg DAILY@21 PO Last administered on 20:08; Admin Dose 40 MG; Start 09/29/16 at 21:00 Docusate Sodium (Colace) 100 mg Q12H PRN PO CONSTIPATION; Start 09/28/16 at 23: 30 Epoetin César (Epogen (Esrd)) 10,000 units MoWeFr@17 SC Last administered on 16:32; Admin Dose 10,000 UNITS; Start 09/30/16 at 17:00 Docusate Sodium (Colace) 100 mg BID PO Last administered on 10/02/16 09:36; Admin Dose 100 MG; Start 09/29/16 at 09:00 Senna (Senokot) 1 tab HS PO Last administered on 10/01/16 20:08; Admin Dose 1 TAB; Start 09/29/16 at 21:00 Bisacodyl (Dulcolax Supp) 10 mg DAILY PRN [place] CONSTIPATION; Start 09/29/16 at 05 :30 Magnesium Hydroxide (Milk Of Mag) 30 ml BID PRN PO CONSTIPATION; Start at 05:30 Gabapentin (Neurontin) 100 mg ,16 PO Last administered on 10/02/16 09:35; Admin Dose 100 MG; Start 09/29/16 at 16:00 Gabapentin (Neurontin) 300 mg QHS PO Last administered on 10/01/16 20:07; Admin Dose 300 MG; Start 09/29/16 at 21:00 JENNY MOTT Oct 02, 2016 09:53
--- NOTE | 2016-10-02 12:44 | PN ---
Date/Time of Note Date/Time of Note DATE: 10/02/16 TIME: 12:39 Assessment/Plan VTE Prophylaxis VTE Prophylaxis Intervention: ambulation, SCD's Lines/Catheters IV Catheter Type (from Nrs): Saline Lock Urinary Cath still in place: No Assessment/Plan Problems: (1) Dens fracture Status: Acute Comment: Ongoing c-spine precautions but continue rehab as tolerated (2) Diastolic dysfunction Status: Chronic Comment: Cardiology following, pt. optimized (3) Aortic stenosis Status: Chronic Comment: Pt. optimized, cardiology following (4) Type 2 diabetes mellitus with diabetic polyneuropathy Status: Chronic Comment: Good glycemic control, cont. current regimen (5) Hyperlipidemia Status: Chronic Comment: Cont. statin (6) Diverticulosis of large intestine without perforation or abscess without bleeding Status: Chronic Comment: No evidence of bleeding, will monitor (7) Hypertension associated with chronic kidney disease due to type 2 diabetes mellitus Status: Chronic Comment: BP controlled on current regimen (8) ESRD (end stage renal disease) on dialysis Status: Chronic Comment: Cont. HD per renal (9) Sarcoidosis Status: Chronic Comment: Cont. daily low-dose steroids (10) COPD (chronic obstructive pulmonary disease) Status: Chronic Comment: Steroids help w/ emphysema as well but pt. now stable from pulmonary standpoint. Qualifiers: COPD type: emphysema Emphysema type: panlobular Qualified Code: J43.1 - Panlobular emphysema Subjective 24 Hr Interval Summary Constitutional: improved, no complaints Respiratory: no complaints Cardiovascular: no complaints Gastrointestinal: no complaints Genitourinary: no complaints Musculoskeletal: no complaints Neurologic: no complaints Exam/Review of Systems Vital Signs Vitals VS - Last 72 Hours, by Label Date Time Temp Pulse Resp B/P Pulse Ox O2 Delivery O2 Flow Rate FiO2 10/02/16 08:00 Nasal Cannula 2.0 10/02/16 05:53 76 18 94 Nasal Cannula 2.0 10/02/16 05:52 2.0 10/01/16 21:14 78 20 98 Nasal Cannula 2.0 10/01/16 21:14 95 2.0 10/01/16 20:00 Nasal Cannula 2.0 10/01/16 19:41 98.0 86 19 115/51 98 10/01/16 14:59 93 20 94 Nasal Cannula 2.0 10/01/16 09:56 80 20 97 Nasal Cannula 2.0 10/01/16 08:00 Nasal Cannula 2.0 10/01/16 07:30 98.5 77 20 122/58 99 10/01/16 05:28 77 20 98 Nasal Cannula 2.0 10/01/16 00:48 78 20 98 Nasal Cannula 2.0 10/01/16 00:48 2.0 09/30/16 21:24 82 20 98 Nasal Cannula 2.0 09/30/16 21:24 2.0 09/30/16 20:00 98.2 77 18 120/65 100 09/30/16 19:47 Nasal Cannula 2.0 09/30/16 17:30 77 18 09/30/16 17:30 77 09/30/16 17:00 76 09/30/16 16:30 75 09/30/16 16:00 76 09/30/16 15:30 75 09/30/16 15:00 76 09/30/16 14:30 76 18 09/30/16 14:30 77 09/30/16 08:00 77 20 100 Nasal Cannula 2.0 09/30/16 08:00 Nasal Cannula 2.0 09/30/16 08:00 98.0 84 20 135/68 100 Nasal Cannula 2.0 09/30/16 04:37 70 18 98 Nasal Cannula 2.0 09/30/16 01:33 2.0 09/30/16 01:31 88 20 97 Nasal Cannula 2.0 09/29/16 23:41 2.0 09/29/16 20:04 82 20 99 Nasal Cannula 2.0 09/29/16 20:00 98.5 93 18 157/62 99 09/29/16 20:00 Nasal Cannula 2.0 09/29/16 17:24 2.0 09/29/16 17:24 98 22 Nasal Cannula 2.0 28 09/29/16 13:01 101 18 83 21 Vital Signs Date Time Temp Pulse Resp B/P Pulse Ox O2 Delivery O2 Flow Rate FiO2 10/02/16 08:00 Nasal Cannula 2.0 10/02/16 05:53 76 18 94 10/01/16 19:41 98.0 115/51 09/29/16 17:24 28 Intake and Output 10/01/16 10/01/16 10/02/16 15:00 23:00 07:00 Intake Total 530 ml 200 ml Balance 530 ml 200 ml Exam Constitutional: alert, frail, obese, oriented Psych: nl mood/affect, no complaints Respiratory: clear to auscultation, normal air movement Cardiovascular: nl pulses, regular rate and rhythm, No edema, No murmurs/extra sounds, No rub Gastrointestinal: bowel sounds, nl liver, spleen, non-tender, soft, No mass, No rebound or guarding Musculoskeletal: nl extremities to inspection Extremities: normal pulses, No clubbing, No cyanosis, No edema 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: [employer]ISION [employer] II-XII intact, nl mental status, nl speech, nl strength Additional Comments Bedside Glucose - 72 Hours Test 09/29/16 17:05 09/29/16 21:00 09/30/16 07:58 09/30/16 12:14 Bedside Glucose 120mg/dL (70-220) 154mg/dL (70-220) 88mg/dL (70-220) 110mg/dL (70-220) Test 09/30/16 17:27 09/30/16 20:18 10/01/16 07:34 10/01/16 12:03 Bedside Glucose 136mg/dL (70-220) 97mg/dL (70-220) 83mg/dL (70-220) 131mg/dL (70-220) Test 10/01/16 20:10 10/02/16 07:36 10/02/16 11:51 Bedside Glucose 131mg/dL (70-220) 143mg/dL (70-220) 122mg/dL (70-220) Results Result Diagram: 09/30/16 0620 09/30/16 0620 Results 24 hrs Laboratory Tests Test 10/01/16 20:10 10/02/16 07:36 10/02/16 11:51 Bedside Glucose 131 143 122 Medications Medications Current Medications Sodium Biphosphate/ Sodium Phosphate (Fleet Enema) 133 ml DAILY PRN [place] CONSTIPATION; Start 09/28/16 at 23:00 Tramadol HCl (Ultram) 50 mg Q8H PRN PO PAIN Last administered on 10/01/16 20: 08; Admin Dose 50 MG; Start 09/28/16 at 23:00 Prednisone (Prednisone) 1 mg QHS PO Last administered on 10/01/16 20:07; Admin Dose 1 MG; Start 09/29/16 at 21:00 Prednisone (Prednisone) 4 mg DAILY PO Last administered on 10/02/16 09:35; Admin Dose 4 MG; Start 09/29/16 at 09:00 Salmeterol Xinafoate/ Fluticasone (Advair 250/50 Diskus) 1 inh BID INH Last administered on 10/02/16 09:36; Admin Dose 1 INH; Start 09/29/16 at 09:00 Diagnostic Test (Pha) (Accu-Chek) 1 ea 02 XX ; Start 09/29/16 at 02:00 Miscellaneous Information 1 ea NOTE XX ; Start 09/28/16 at 23:00 Glucose (Glutose) 15 gm Q15M PRN PO DECREASED GLUCOSE; Start 09/28/16 at 23:00 Glucose (Glutose) 22.5 gm Q15M PRN PO DECREASED GLUCOSE; Start 09/28/16 at 23: 00 Dextrose (D50w Syringe) 25 ml Q15M PRN IV DECREASED GLUCOSE; Start 09/28/16 at 23:00 Dextrose (D50w Syringe) 50 ml Q15M PRN IV DECREASED GLUCOSE; Start 09/28/16 at 23:00 Glucagon (Glucagen) 1 mg Q15M PRN IM DECREASED GLUCOSE; Start 09/28/16 at 23:00 Glucose (Glutose) 15 gm Q15M PRN BUCCAL DECREASED GLUCOSE; Start 09/28/16 at 23 :00 Linagliptin (Tradjenta) 5 mg DAILY PO Last administered on 10/02/16 09:35; Admin Dose 5 MG; Start 09/29/16 at 09:00 Metoprolol Tartrate (Lopressor) 25 mg BID PO Last administered on 10/02/16 09: 36; Admin Dose 25 MG; Start 09/29/16 at 09:00 Heparin Sodium (Porcine) (Heparin (5000 Units/0.5 ml)) 5,000 unit Q12 SC Last administered on 10/02/16 09:38; Admin Dose 5,000 UNIT; Start 09/29/16 at 09:00 Acetaminophen/ Hydrocodone Bitart ([place] (5/325)) 1 tab Q6H PRN PO PAIN; Start 09/28/16 at 23:00 Acetaminophen/ Hydrocodone Bitart ([place] (5/325)) 2 tab Q6H PRN PO PAIN; Start 09/28/16 at 23:00 Famotidine (Pepcid) 40 mg QHS PO Last administered on 10/01/16 20:07; Admin Dose 40 MG; Start 09/29/16 at 21:00 Fenofibrate (Tricor) 48 mg QAM PO Last administered on 10/02/16 09:35; Admin Dose 48 MG; Start 09/29/16 at 09:00 Folic Acid (Folic Acid) 1 mg BID PO Last administered on 10/02/16 09:35; Admin Dose 1 MG; Start 09/29/16 at 09:00 Eye Lubricant (Artificial Tears Oph) 2 drop Q2H PRN BOTH EYES DRY EYES; Start 09/28/16 at 23:30 Atorvastatin Calcium (Lipitor) 40 mg DAILY@21 PO Last administered on 20:08; Admin Dose 40 MG; Start 09/29/16 at 21:00 Docusate Sodium (Colace) 100 mg Q12H PRN PO CONSTIPATION; Start 09/28/16 at 23: 30 Epoetin Césra (Epogen (Esrd)) 10,000 units MoWeFr@17 SC Last administered on 16:32; Admin Dose 10,000 UNITS; Start 09/30/16 at 17:00 Docusate Sodium (Colace) 100 mg BID PO Last administered on 10/02/16 09:36; Admin Dose 100 MG; Start 09/29/16 at 09:00 Senna (Senokot) 1 tab HS PO Last administered on 10/01/16 20:08; Admin Dose 1 TAB; Start 09/29/16 at 21:00 Bisacodyl (Dulcolax Supp) 10 mg DAILY PRN [place] CONSTIPATION; Start 09/29/16 at 05 :30 Magnesium Hydroxide (Milk Of Mag) 30 ml BID PRN PO CONSTIPATION; Start at 05:30 Gabapentin (Neurontin) 100 mg ,16 PO Last administered on 10/02/16 09:35; Admin Dose 100 MG; Start 09/29/16 at 16:00 Gabapentin (Neurontin) 300 mg QHS PO Last administered on 10/01/16 20:07; Admin Dose 300 MG; Start 09/29/16 at 21:00 SOBEIDA ENRIQUEZ MD Oct 02, 2016 12:43
[2016-10-02 20:24] VITALS: BP 120/50; RESP 18
[2016-10-02] MEDS: FAMOTIDINE 20 MG TAB PO SCH (20:29)
[2016-10-02] MEDS: ATORVASTATIN 40 MG TAB PO SCH (20:30)
[2016-10-02] MEDS: GABAPENTIN 300 MG CAP PO SCH (20:30)
[2016-10-02] MEDS: SENNA TAB PO SCH (20:30)
[2016-10-03] VITALS (9 sets, daily range): BP systolic 96–136; BP diastolic 45–67; PULSE 75–82; RESP 19–20
[2016-10-03] MEDS: traMADol 50 MG TAB PO PRN ×2 (00:34→20:05)
[2016-10-03] MEDS: ALBUTEROL/IPRATROPIUM (NEB) 3 ML AMP HHN SCH ×5 (01:00→20:58)
[2016-10-03] MEDS: ACCUCHECK AT 2AM (Patients on SS coverage) XX SCH (02:00)
[2016-10-03 07:14] LABS: ADD SCAN DIFF NO
[2016-10-03 07:17] LABS: BASOPHILS % 0.5 % (0.0-2.0); EOSINOPHILS # 0.1 10^3/ul (0.0-0.5); EOSINOPHILS % 2.1 % (0.0-7.0); HEMATOCRIT 26.8 % (37.0-47.0); HEMOGLOBIN 8.3 g/dl (12.0-16.0); LYMPHOCYTES # 1.2 10^3/ul (0.8-2.9); LYMPHOCYTES % 20.3 % (15.0-51.0); MEAN CORPUSCULAR HEMOGLOBIN 30.1 pg (29.0-33.0); MEAN CORPUSCULAR VOLUME 97.1 fl (82.0-101.0); MEAN PLATELET VOLUME 9.9 fl (7.4-10.4); MONOCYTE # 0.6 10^3/ul (0.3-0.9); MONOCYTES % 9.4 % (0.0-11.0); NEUTROPHIL # 4.1 10^3/ul (1.6-7.5); NEUTROPHILS % 67.2 % (39.0-77.0); PLATELET COUNT 162 10^3/UL (140-415); RED BLOOD COUNT 2.76 10^6/ul (4.20-5.40); RED CELL DISTRIBUTION WIDTH 17.1 % (11.5-14.5); WHITE BLOOD COUNT 6.1 10^3/ul (4.8-10.8)
[2016-10-03] MEDS: Insulin NOVOLOG SS MILD Algorithm (SS with meals and bedtime) SC SCH ×4 (07:35→20:03)
[2016-10-03 07:50] LABS: ALBUMIN/GLOBULIN RATIO 1.6; CALCIUM 9.3 mg/dl (8.4-10.2); CREATININE 7.99 mg/dl (0.44-1.00); POTASSIUM 3.7 mmol/L (3.5-5.1); TOTAL PROTEIN 6.5 g/dl (6.1-8.1)
[2016-10-03] MEDS: FENOFIBRATE 48 MG TAB PO SCH (07:58)
[2016-10-03] MEDS: DOCUSATE SODIUM 100 MG CAP PO SCH ×2 (07:58→20:04)
[2016-10-03] MEDS: SALMETEROL/FLUTICASONE 250/50 INHA INH SCH ×2 (07:59→20:03)
[2016-10-03] MEDS: LINAGLIPTIN 5 MG TABLET PO SCH (07:59)
[2016-10-03] MEDS: GABAPENTIN 100 MG CAP PO SCH ×2 (07:59→17:00)
[2016-10-03] MEDS: FOLIC ACID 1 MG TAB PO SCH ×2 (07:59→20:04)
[2016-10-03] MEDS: SEVELAMER CARBONATE 0.8 GM PKT PO SCH ×3 (07:59→17:00)
[2016-10-03] MEDS: predniSONE 1 MG TAB PO SCH ×3 (08:00→20:04)
[2016-10-03] MEDS: HEPARIN 5,000 UNIT/0.5 ML VIAL SC SCH ×2 (08:03→20:14)
[2016-10-03] MEDS: METOPROLOL 25 MG TAB PO SCH ×2 (08:13→20:05)
--- NOTE | 2016-10-03 08:19 | CONS ---
Date/Time of Note Date/Time of Note DATE: 10/03/16 TIME: 08:17 Assessment/Plan Assessment/Plan Problems: (1) Atrial fibrillation Status: Chronic Comment: controlled rate Qualifiers: Atrial fibrillation type: chronic Qualified Code: I48.2 - Chronic atrial fibrillation (2) ESRD (end stage renal disease) on dialysis Status: Chronic Comment: HD today (3) Dens fracture Status: Acute Comment: stable.. in hard collar Consultation Date/Type/Reason Admit Date/Time Sep 28, 2016 at 22:05 Initial Consult Date Type of Consultation: renal 24 HR Interval Summary Free Text/Dictation in good spirits Exam/Review of Systems Vital Signs Vitals Vital Signs Date Time Temp Pulse Resp B/P Pulse Ox O2 Delivery O2 Flow Rate FiO2 10/02/16 21:57 Nasal Cannula 2.0 10/02/16 20:54 73 18 99 10/02/16 20:24 98.5 120/50 09/29/16 17:24 28 Intake and Output 10/02/16 10/02/16 10/03/16 14:59 22:59 06:59 Intake Total 480 ml 500 ml Balance 480 ml 500 ml Exam Constitutional: alert, oriented Psych: no complaints ENMT: other (in hard collar) Neck: other Respiratory: clear to auscultation Cardiovascular: regular rate and rhythm Gastrointestinal: soft Results Result Diagram: 10/03/16 0620 10/03/16 0620 Results 24 hrs Laboratory Tests Test 10/02/16 11:51 10/02/16 17:13 10/02/16 19:58 10/03/16 06:20 Bedside Glucose 122 146 145 White Blood Count 6.1 Red Blood Count 2.76 L Hemoglobin 8.3 L Hematocrit 26.8 L Mean Corpuscular Volume 97.1 Mean Corpuscular Hemoglobin 30.1 Mean Corpuscular Hemoglobin Concent 31.0 L Red Cell Distribution Width 17.1 H Platelet Count 162 Mean Platelet Volume 9.9 Neutrophils % 67.2 Lymphocytes % 20.3 Monocytes % 9.4 Eosinophils % 2.1 Basophils % 0.5 Nucleated Red Blood Cells % 0.0 Neutrophils # 4.1 Lymphocytes # 1.2 Monocytes # 0.6 Eosinophils # 0.1 Basophils # 0.0 Nucleated Red Blood Cells # 0.0 Sodium Level 138 Potassium Level 3.7 Chloride Level 100 Carbon Dioxide Level 26 Anion Gap 16 Blood Urea Nitrogen 56 H Creatinine 7.99 H Glucose Level 96 Calcium Level 9.3 Total Bilirubin 0.0 L Direct Bilirubin 0.00 Indirect Bilirubin 0.0 Aspartate Amino Transf (AST/SGOT) 15 Alanine Aminotransferase (ALT/SGPT) 23 Alkaline Phosphatase 48 Total Protein 6.5 Albumin 4.0 Globulin 2.50 Albumin/Globulin Ratio 1.60 Test 10/03/16 07:50 10/03/16 07:52 Bedside Glucose > 595 *H 136 Medications Medications Current Medications Sodium Biphosphate/ Sodium Phosphate (Fleet Enema) 133 ml DAILY PRN [place] CONSTIPATION; Start 09/28/16 at 23:00 Tramadol HCl (Ultram) 50 mg Q8H PRN PO PAIN Last administered on 10/03/16 00: 34; Admin Dose 50 MG; Start 09/28/16 at 23:00 Prednisone (Prednisone) 1 mg QHS PO Last administered on 10/02/16 20:30; Admin Dose 1 MG; Start 09/29/16 at 21:00 Prednisone (Prednisone) 4 mg DAILY PO Last administered on 10/03/16 08:00; Admin Dose 4 MG; Start 09/29/16 at 09:00 Salmeterol Xinafoate/ Fluticasone (Advair 250/50 Diskus) 1 inh BID INH Last administered on 10/03/16 07:59; Admin Dose 1 INH; Start 09/29/16 at 09:00 Diagnostic Test (Pha) (Accu-Chek) 1 ea 02 XX ; Start 09/29/16 at 02:00 Miscellaneous Information 1 ea NOTE XX ; Start 09/28/16 at 23:00 Glucose (Glutose) 15 gm Q15M PRN PO DECREASED GLUCOSE; Start 09/28/16 at 23:00 Glucose (Glutose) 22.5 gm Q15M PRN PO DECREASED GLUCOSE; Start 09/28/16 at 23: 00 Dextrose (D50w Syringe) 25 ml Q15M PRN IV DECREASED GLUCOSE; Start 09/28/16 at 23:00 Dextrose (D50w Syringe) 50 ml Q15M PRN IV DECREASED GLUCOSE; Start 09/28/16 at 23:00 Glucagon (Glucagen) 1 mg Q15M PRN IM DECREASED GLUCOSE; Start 09/28/16 at 23:00 Glucose (Glutose) 15 gm Q15M PRN BUCCAL DECREASED GLUCOSE; Start 09/28/16 at 23 :00 Linagliptin (Tradjenta) 5 mg DAILY PO Last administered on 10/03/16 07:59; Admin Dose 5 MG; Start 09/29/16 at 09:00 Metoprolol Tartrate (Lopressor) 25 mg BID PO Last administered on 10/02/16 09: 36; Admin Dose 25 MG; Start 09/29/16 at 09:00 Heparin Sodium (Porcine) (Heparin (5000 Units/0.5 ml)) 5,000 unit Q12 SC Last administered on 10/03/16 08:03; Admin Dose 5,000 UNIT; Start 09/29/16 at 09:00 Acetaminophen/ Hydrocodone Bitart ([place] (5/325)) 1 tab Q6H PRN PO PAIN; Start 09/28/16 at 23:00 Acetaminophen/ Hydrocodone Bitart ([place] (5/325)) 2 tab Q6H PRN PO PAIN; Start 09/28/16 at 23:00 Famotidine (Pepcid) 40 mg QHS PO Last administered on 10/02/16 20:29; Admin Dose 40 MG; Start 09/29/16 at 21:00 Fenofibrate (Tricor) 48 mg QAM PO Last administered on 10/03/16 07:58; Admin Dose 48 MG; Start 09/29/16 at 09:00 Folic Acid (Folic Acid) 1 mg BID PO Last administered on 10/03/16 07:59; Admin Dose 1 MG; Start 09/29/16 at 09:00 Eye Lubricant (Artificial Tears Oph) 2 drop Q2H PRN BOTH EYES DRY EYES; Start 09/28/16 at 23:30 Atorvastatin Calcium (Lipitor) 40 mg DAILY@21 PO Last administered on 20:30; Admin Dose 40 MG; Start 09/29/16 at 21:00 Docusate Sodium (Colace) 100 mg Q12H PRN PO CONSTIPATION; Start 09/28/16 at 23: 30 Epoetin César (Epogen (Esrd)) 10,000 units MoWeFr@17 SC Last administered on 16:32; Admin Dose 10,000 UNITS; Start 09/30/16 at 17:00 Docusate Sodium (Colace) 100 mg BID PO Last administered on 10/03/16 07:58; Admin Dose 100 MG; Start 09/29/16 at 09:00 Senna (Senokot) 1 tab HS PO Last administered on 10/02/16 20:30; Admin Dose 1 TAB; Start 09/29/16 at 21:00 Bisacodyl (Dulcolax Supp) 10 mg DAILY PRN [place] CONSTIPATION; Start 09/29/16 at 05 :30 Magnesium Hydroxide (Milk Of Mag) 30 ml BID PRN PO CONSTIPATION; Start at 05:30 Gabapentin (Neurontin) 100 mg ,16 PO Last administered on 10/03/16 07:59; Admin Dose 100 MG; Start 09/29/16 at 16:00 Gabapentin (Neurontin) 300 mg QHS PO Last administered on 10/02/16 20:30; Admin Dose 300 MG; Start 09/29/16 at 21:00 NICO HAY MD Oct 03, 2016 08:19
--- NOTE | 2016-10-03 12:29 | PN ---
Date/Time of Note Date/Time of Note DATE: 10/03/16 TIME: 12:24 Assessment/Plan VTE Prophylaxis VTE Prophylaxis Intervention: heparin Lines/Catheters IV Catheter Type (from Nrsg): Saline Lock Urinary Cath still in place: No Assessment/Plan Assessment/Plan 1. Status post fall sustaining C2 fracture and blunt head trauma, with impaired mobility/gait/ADLs/cognition. Continue conservative treatment per neurosurgery, continue cervical spine precautions/ cervical collar. Continue PT/OT/ST. 2. Acute pain syndrome secondary to above, also with history of polyneuropathy. Pain controlled, continue pain regimen. 3. End-stage renal disease. On hemodialysis per nephrology. 4. Dysphagia. Continue swallowing training with ST. 5. CAD status post stent. Continue medical management. 6. Sarcoidosis. On treatment with prednisone per internal medicine. 7. Diabetes mellitus type 2. Blood sugars controlled, continue to monitor. 8. Hypertension. BP controlled with current management. 9. Chronic atrial fibrillation. Continue medical management per internal medicine/cardiology. 10. COPD. Stable. Continue breathing treatments, supplemental 02 as needed. 11. Anemia of chronic disease. On epogen per nephrology/internal medicine. Monitor hemoglobin/hematocrit. 40 minutes spent on patient encounter today, greater than 50% time face to face with patient, counseling, and in coordination of patient care. Team conference held today. Patient making continued functional gains. See therapists and team conference notes for complete details. Current level of function mod assist for bed mobility and gait 20ft, max assist for transfers, mod assist for upper body dressing, total assist for lower body dressing and toileting, max assist for bathing, min assist for grooming. Subjective 24 Hr Interval Summary Free Text/Dictation Rehab progress note Subjective: No new complaints. Stable neck pain, no new weakness or new paresthesias, no radicular symptoms reported. ROS: Denies chest pain, no shortness of breath, no abdominal pain, no nausea or vomiting, no chills. Exam/Review of Systems Vital Signs Vitals Vital Signs Date Time Temp Pulse Resp B/P Pulse Ox O2 Delivery O2 Flow Rate FiO2 10/03/16 09:45 2.0 10/03/16 09:45 78 18 100 Nasal Cannula 10/03/16 07:30 98.3 136/62 09/29/16 17:24 28 Intake and Output 10/02/16 10/02/16 10/03/16 15:00 23:00 07:00 Intake Total 480 ml 500 ml Balance 480 ml 500 ml Exam General: Awake, alert, no acute distress Neck: Cervical collar in place CV: Regular rate, s1s2 Lungs: Clear to auscultation, no wheezing Abdomen soft, nontender Extremities: No cyanosis, no new swelling Neuro: Moves all extremities with antigravity strength. Follows simple commands. Results Result Diagram: 10/03/16 0620 10/03/16 0620 Results 24 hrs Laboratory Tests Test 10/02/16 17:13 10/02/16 19:58 10/03/16 06:20 10/03/16 07:50 Bedside Glucose 146 145 > 595 *H White Blood Count 6.1 Red Blood Count 2.76 L Hemoglobin 8.3 L Hematocrit 26.8 L Mean Corpuscular Volume 97.1 Mean Corpuscular Hemoglobin 30.1 Mean Corpuscular Hemoglobin Concent 31.0 L Red Cell Distribution Width 17.1 H Platelet Count 162 Mean Platelet Volume 9.9 Neutrophils % 67.2 Lymphocytes % 20.3 Monocytes % 9.4 Eosinophils % 2.1 Basophils % 0.5 Nucleated Red Blood Cells % 0.0 Neutrophils # 4.1 Lymphocytes # 1.2 Monocytes # 0.6 Eosinophils # 0.1 Basophils # 0.0 Nucleated Red Blood Cells # 0.0 Sodium Level 138 Potassium Level 3.7 Chloride Level 100 Carbon Dioxide Level 26 Anion Gap 16 Blood Urea Nitrogen 56 H Creatinine 7.99 H Glucose Level 96 Calcium Level 9.3 Total Bilirubin 0.0 L Direct Bilirubin 0.00 Indirect Bilirubin 0.0 Aspartate Amino Transf (AST/SGOT) 15 Alanine Aminotransferase (ALT/SGPT) 23 Alkaline Phosphatase 48 Total Protein 6.5 Albumin 4.0 Globulin 2.50 Albumin/Globulin Ratio 1.60 Test 10/03/16 07:52 10/03/16 11:47 Bedside Glucose 136 136 Medications Medications Current Medications Sodium Biphosphate/ Sodium Phosphate (Fleet Enema) 133 ml DAILY PRN [place] CONSTIPATION; Start 09/28/16 at 23:00 Tramadol HCl (Ultram) 50 mg Q8H PRN PO PAIN Last administered on 10/03/16 00: 34; Admin Dose 50 MG; Start 09/28/16 at 23:00 Prednisone (Prednisone) 1 mg QHS PO Last administered on 10/02/16 20:30; Admin Dose 1 MG; Start 09/29/16 at 21:00 Prednisone (Prednisone) 4 mg DAILY PO Last administered on 10/03/16 08:00; Admin Dose 4 MG; Start 09/29/16 at 09:00 Salmeterol Xinafoate/ Fluticasone (Advair 250/50 Diskus) 1 inh BID INH Last administered on 10/03/16 07:59; Admin Dose 1 INH; Start 09/29/16 at 09:00 Diagnostic Test (Pha) (Accu-Chek) 1 ea 02 XX ; Start 09/29/16 at 02:00 Miscellaneous Information 1 ea NOTE XX ; Start 09/28/16 at 23:00 Glucose (Glutose) 15 gm Q15M PRN PO DECREASED GLUCOSE; Start 09/28/16 at 23:00 Glucose (Glutose) 22.5 gm Q15M PRN PO DECREASED GLUCOSE; Start 09/28/16 at 23: 00 Dextrose (D50w Syringe) 25 ml Q15M PRN IV DECREASED GLUCOSE; Start 09/28/16 at 23:00 Dextrose (D50w Syringe) 50 ml Q15M PRN IV DECREASED GLUCOSE; Start 09/28/16 at 23:00 Glucagon (Glucagen) 1 mg Q15M PRN IM DECREASED GLUCOSE; Start 09/28/16 at 23:00 Glucose (Glutose) 15 gm Q15M PRN BUCCAL DECREASED GLUCOSE; Start 09/28/16 at 23 :00 Linagliptin (Tradjenta) 5 mg DAILY PO Last administered on 10/03/16 07:59; Admin Dose 5 MG; Start 09/29/16 at 09:00 Metoprolol Tartrate (Lopressor) 25 mg BID PO Last administered on 10/02/16 09: 36; Admin Dose 25 MG; Start 09/29/16 at 09:00 Heparin Sodium (Porcine) (Heparin (5000 Units/0.5 ml)) 5,000 unit Q12 SC Last administered on 10/03/16 08:03; Admin Dose 5,000 UNIT; Start 09/29/16 at 09:00 Acetaminophen/ Hydrocodone Bitart ([place] (5/325)) 1 tab Q6H PRN PO PAIN; Start 09/28/16 at 23:00 Acetaminophen/ Hydrocodone Bitart ([place] (5/325)) 2 tab Q6H PRN PO PAIN; Start 09/28/16 at 23:00 Famotidine (Pepcid) 40 mg QHS PO Last administered on 10/02/16 20:29; Admin Dose 40 MG; Start 09/29/16 at 21:00 Fenofibrate (Tricor) 48 mg QAM PO Last administered on 10/03/16 07:58; Admin Dose 48 MG; Start 09/29/16 at 09:00 Folic Acid (Folic Acid) 1 mg BID PO Last administered on 10/03/16 07:59; Admin Dose 1 MG; Start 09/29/16 at 09:00 Eye Lubricant (Artificial Tears Oph) 2 drop Q2H PRN BOTH EYES DRY EYES; Start 09/28/16 at 23:30 Atorvastatin Calcium (Lipitor) 40 mg DAILY@21 PO Last administered on 20:30; Admin Dose 40 MG; Start 09/29/16 at 21:00 Docusate Sodium (Colace) 100 mg Q12H PRN PO CONSTIPATION; Start 09/28/16 at 23: 30 Epoetin César (Epogen (Esrd)) 10,000 units MoWeFr@17 SC Last administered on 16:32; Admin Dose 10,000 UNITS; Start 09/30/16 at 17:00 Docusate Sodium (Colace) 100 mg BID PO Last administered on 10/03/16 07:58; Admin Dose 100 MG; Start 09/29/16 at 09:00 Senna (Senokot) 1 tab HS PO Last administered on 10/02/16 20:30; Admin Dose 1 TAB; Start 09/29/16 at 21:00 Bisacodyl (Dulcolax Supp) 10 mg DAILY PRN [place] CONSTIPATION; Start 09/29/16 at 05 :30 Magnesium Hydroxide (Milk Of Mag) 30 ml BID PRN PO CONSTIPATION; Start at 05:30 Gabapentin (Neurontin) 100 mg ,16 PO Last administered on 10/03/16 07:59; Admin Dose 100 MG; Start 09/29/16 at 16:00 Gabapentin (Neurontin) 300 mg QHS PO Last administered on 10/02/16 20:30; Admin Dose 300 MG; Start 09/29/16 at 21:00 JENNY MOTT 19, 2017 12:29
[2016-10-03] MEDS: EPOETIN 10000 UNITS/1 ML INJ (ESRD) SC SCH (17:10)
[2016-10-03] MEDS: FAMOTIDINE 20 MG TAB PO SCH (20:04)
[2016-10-03] MEDS: ATORVASTATIN 40 MG TAB PO SCH (20:04)
[2016-10-03] MEDS: SENNA TAB PO SCH (20:04)
[2016-10-03] MEDS: GABAPENTIN 300 MG CAP PO SCH (20:05)
[2016-10-03] MEDS: HYDROCODONE/APAP (5/325) TAB PO PRN (22:47)
[2016-10-04] MEDS: ALBUTEROL/IPRATROPIUM (NEB) 3 ML AMP HHN SCH ×6 (01:00→21:00)
[2016-10-04] MEDS: ACCUCHECK AT 2AM (Patients on SS coverage) XX SCH (02:00)
[2016-10-04] MEDS: Insulin NOVOLOG SS MILD Algorithm (SS with meals and bedtime) SC SCH ×4 (07:35→20:48)
[2016-10-04 07:54] VITALS: BP 119/59; RESP 18
--- NOTE | 2016-10-04 07:59 | CONS ---
Date/Time of Note Date/Time of Note DATE: 10/04/16 TIME: 07:57 Assessment/Plan Assessment/Plan Problems: (1) Atrial fibrillation Status: Chronic Comment: rate controlled...still off AC Qualifiers: Atrial fibrillation type: chronic Qualified Code: I48.2 - Chronic atrial fibrillation (2) ESRD (end stage renal disease) on dialysis Status: Chronic Comment: for HD in am...stable (3) Dens fracture Status: Acute Comment: in collar... neuro stable Consultation Date/Type/Reason Admit Date/Time Sep 28, 2016 at 22:05 Type of Consultation: renal 24 HR Interval Summary Free Text/Dictation doing well Exam/Review of Systems Vital Signs Vitals Vital Signs Date Time Temp Pulse Resp B/P Pulse Ox O2 Delivery O2 Flow Rate FiO2 10/04/16 01:42 2.0 10/03/16 22:10 Nasal Cannula 10/03/16 20:58 78 20 98 10/03/16 19:12 98.7 136/63 Intake and Output 10/03/16 10/03/16 10/04/16 15:00 23:00 07:00 Intake Total 870 ml 650 ml Output Total 1 ml Balance 869 ml 650 ml Exam Constitutional: oriented Psych: no complaints Neck: other (in hard collar) Cardiovascular: irregular rhythm (controlled) Gastrointestinal: non-tender Results Result Diagram: 10/03/16 0620 10/03/16 0620 Results 24 hrs Laboratory Tests Test 10/03/16 11:47 10/03/16 17:40 10/03/16 20:01 10/04/16 07:45 Bedside Glucose 136 142 130 96 Medications Medications Current Medications Sodium Biphosphate/ Sodium Phosphate (Fleet Enema) 133 ml DAILY PRN [place] CONSTIPATION; Start 09/28/16 at 23:00 Tramadol HCl (Ultram) 50 mg Q8H PRN PO PAIN Last administered on 10/03/16 20: 05; Start 09/28/16 at 23:00 Prednisone (Prednisone) 1 mg QHS PO Last administered on 10/03/16 20:04; Start 09/29/16 at 21:00 Prednisone (Prednisone) 4 mg DAILY PO Last administered on 10/03/16 08:00; Start 09/29/16 at 09:00 Salmeterol Xinafoate/ Fluticasone (Advair 250/50 Diskus) 1 inh BID INH Last administered on 10/03/16 20:03; Start 09/29/16 at 09:00 Diagnostic Test (Pha) (Accu-Chek) 1 ea 02 XX ; Start 09/29/16 at 02:00 Miscellaneous Information 1 ea NOTE XX ; Start 09/28/16 at 23:00 Glucose (Glutose) 15 gm Q15M PRN PO DECREASED GLUCOSE; Start 09/28/16 at 23:00 Glucose (Glutose) 22.5 gm Q15M PRN PO DECREASED GLUCOSE; Start 09/28/16 at 23: 00 Dextrose (D50w Syringe) 25 ml Q15M PRN IV DECREASED GLUCOSE; Start 09/28/16 at 23:00 Dextrose (D50w Syringe) 50 ml Q15M PRN IV DECREASED GLUCOSE; Start 09/28/16 at 23:00 Glucagon (Glucagen) 1 mg Q15M PRN IM DECREASED GLUCOSE; Start 09/28/16 at 23:00 Glucose (Glutose) 15 gm Q15M PRN BUCCAL DECREASED GLUCOSE; Start 09/28/16 at 23 :00 Linagliptin (Tradjenta) 5 mg DAILY PO Last administered on 10/03/16 07:59; Start 09/29/16 at 09:00 Metoprolol Tartrate (Lopressor) 25 mg BID PO Last administered on 10/03/16 20: 05; Start 09/29/16 at 09:00 Heparin Sodium (Porcine) (Heparin (5000 Units/0.5 ml)) 5,000 unit Q12 SC Last administered on 10/03/16 20:14; Start 09/29/16 at 09:00 Acetaminophen/ Hydrocodone Bitart ([place] (5/325)) 1 tab Q6H PRN PO PAIN Last administered on 10/03/16 22:47; Start 09/28/16 at 23:00 Acetaminophen/ Hydrocodone Bitart ([place] (5/325)) 2 tab Q6H PRN PO PAIN; Start 09/28/16 at 23:00 Famotidine (Pepcid) 40 mg QHS PO Last administered on 10/03/16 20:04; Start at 21:00 Fenofibrate (Tricor) 48 mg QAM PO Last administered on 10/03/16 07:58; Start 09/29/16 at 09:00 Folic Acid (Folic Acid) 1 mg BID PO Last administered on 10/03/16 20:04; Start 09/29/16 at 09:00 Eye Lubricant (Artificial Tears Oph) 2 drop Q2H PRN BOTH EYES DRY EYES; Start 09/28/16 at 23:30 Atorvastatin Calcium (Lipitor) 40 mg DAILY@21 PO Last administered on 20:04; Start 09/29/16 at 21:00 Docusate Sodium (Colace) 100 mg Q12H PRN PO CONSTIPATION; Start 09/28/16 at 23: 30 Epoetin César (Epogen (Esrd)) 10,000 units MoWeFr@17 SC Last administered on 17:10; Start 09/30/16 at 17:00 Docusate Sodium (Colace) 100 mg BID PO Last administered on 10/03/16 20:04; Start 09/29/16 at 09:00 Senna (Senokot) 1 tab HS PO Last administered on 10/03/16 20:04; Start at 21:00 Bisacodyl (Dulcolax Supp) 10 mg DAILY PRN [place] CONSTIPATION; Start 09/29/16 at 05 :30 Magnesium Hydroxide (Milk Of Mag) 30 ml BID PRN PO CONSTIPATION; Start at 05:30 Gabapentin (Neurontin) 100 mg 09,16 PO Last administered on 10/03/16 17:00; Start 09/29/16 at 16:00 Gabapentin (Neurontin) 300 mg QHS PO Last administered on 10/03/16 20:05; Start 09/29/16 at 21:00 NICO HAY MD Oct 04, 2016 07:59
[2016-10-04] MEDS: SALMETEROL/FLUTICASONE 250/50 INHA INH SCH ×2 (08:31→20:35)
[2016-10-04] MEDS: SEVELAMER CARBONATE 0.8 GM PKT PO SCH ×3 (08:31→17:52)
[2016-10-04] MEDS: predniSONE 1 MG TAB PO SCH ×3 (08:32→20:35)
[2016-10-04] MEDS: FENOFIBRATE 48 MG TAB PO SCH (08:32)
[2016-10-04] MEDS: FOLIC ACID 1 MG TAB PO SCH ×2 (08:32→20:49)
[2016-10-04] MEDS: HEPARIN 5,000 UNIT/0.5 ML VIAL SC SCH ×2 (08:32→20:45)
[2016-10-04] MEDS: LINAGLIPTIN 5 MG TABLET PO SCH (08:33)
[2016-10-04] MEDS: GABAPENTIN 100 MG CAP PO SCH ×3 (08:33→20:35)
[2016-10-04] MEDS: METOPROLOL 25 MG TAB PO SCH ×2 (08:34→20:37)
[2016-10-04] MEDS: DOCUSATE SODIUM 100 MG CAP PO SCH ×2 (08:34→20:36)
--- NOTE | 2016-10-04 10:26 | PN ---
Date/Time of Note Date/Time of Note DATE: 10/04/16 TIME: 10:21 Assessment/Plan VTE Prophylaxis VTE Prophylaxis Intervention: heparin Lines/Catheters IV Catheter Type (from Nrsg): Saline Lock Urinary Cath still in place: No Assessment/Plan Assessment/Plan 1. Status post fall with C2 fracture and Blunt head trauma, with impaired mobility/gait/ADLs/cognition. Continue nonoperative treatment per neurosurgery, continue cervical collar. Continue PT/OT/ST. 2. Acute pain syndrome secondary to above. Pain controlled on current pain regimen. 3. End-stage renal disease. On dialysis per nephrology. 4. Dysphagia. ST recommends [facility] soft/ground diet. No difficulty noted with ground per ST report. Continue to maintain aspiration precautions. 5. CAD status post stent. Continue medical management. 6. Sarcoidosis. On steroids per internal medicine/pulmonary. 7. Diabetes mellitus type 2 with diabetic polyneuropathy. Blood sugars well controlled with current management. Polyneuropathy symptoms stable. 8. Hypertension. BP controlled. Continue current management. 9. Chronic atrial fibrillation. Rate controlled. Continue medical management per internal medicine/cardiology. 10. COPD. Stable. Continue current medical management. 11. Anemia of chronic disease. Continue to monitor hemoglobin/hematocrit. Subjective 24 Hr Interval Summary Free Text/Dictation Rehab progress note Subjective: No new complaints, neck pain stable and controlled. ROS: Denies chest pain, no shortness of breath, no abdominal pain, no nausea or vomiting, no chills. Exam/Review of Systems Vital Signs Vitals Vital Signs Date Time Temp Pulse Resp B/P Pulse Ox O2 Delivery O2 Flow Rate FiO2 10/04/16 09:30 2.0 10/04/16 07:54 97.9 78 18 119/59 98 10/03/16 22:10 Nasal Cannula Intake and Output 10/03/16 10/03/16 10/04/16 15:00 23:00 07:00 Intake Total 870 ml 650 ml Output Total 1 ml Balance 869 ml 650 ml Exam General: Awake, alert, no acute distress Neck: Cervical collar in place CV: Irregular rhythm, audible s1s2 Lungs: Clear to auscultation, no wheezing or crackles Abdomen obese, soft, nontender Extremities: No cyanosis, no new swelling Neuro: No new focal changes. Follows simple commands. Results Result Diagram: 6/19/17 0620 6/19/17 0620 Results 24 hrs Laboratory Tests Test 10/03/16 11:47 10/03/16 17:40 10/03/16 20:01 10/04/16 07:45 Bedside Glucose 136 142 130 96 Medications Medications Current Medications Sodium Biphosphate/ Sodium Phosphate (Fleet Enema) 133 ml DAILY PRN [place] CONSTIPATION; Start 09/28/16 at 23:00 Tramadol HCl (Ultram) 50 mg Q8H PRN PO PAIN Last administered on 10/03/16 20: 05; Admin Dose 50 MG; Start 09/28/16 at 23:00 Prednisone (Prednisone) 1 mg QHS PO Last administered on 10/03/16 20:04; Admin Dose 1 MG; Start 09/29/16 at 21:00 Prednisone (Prednisone) 4 mg DAILY PO Last administered on 10/04/16 08:32; Admin Dose 4 MG; Start 09/29/16 at 09:00 Salmeterol Xinafoate/ Fluticasone (Advair 250/50 Diskus) 1 inh BID INH Last administered on 10/04/16 08:31; Admin Dose 1 INH; Start 09/29/16 at 09:00 Diagnostic Test (Pha) (Accu-Chek) 1 ea 02 XX ; Start 09/29/16 at 02:00 Miscellaneous Information 1 ea NOTE XX ; Start 09/28/16 at 23:00 Glucose (Glutose) 15 gm Q15M PRN PO DECREASED GLUCOSE; Start 09/28/16 at 23:00 Glucose (Glutose) 22.5 gm Q15M PRN PO DECREASED GLUCOSE; Start 09/28/16 at 23: 00 Dextrose (D50w Syringe) 25 ml Q15M PRN IV DECREASED GLUCOSE; Start 09/28/16 at 23:00 Dextrose (D50w Syringe) 50 ml Q15M PRN IV DECREASED GLUCOSE; Start 09/28/16 at 23:00 Glucagon (Glucagen) 1 mg Q15M PRN IM DECREASED GLUCOSE; Start 09/28/16 at 23:00 Glucose (Glutose) 15 gm Q15M PRN BUCCAL DECREASED GLUCOSE; Start 09/28/16 at 23 :00 Linagliptin (Tradjenta) 5 mg DAILY PO Last administered on 10/04/16 08:33; Admin Dose 5 MG; Start 09/29/16 at 09:00 Metoprolol Tartrate (Lopressor) 25 mg BID PO Last administered on 10/04/16 08: 34; Admin Dose 25 MG; Start 09/29/16 at 09:00 Heparin Sodium (Porcine) (Heparin (5000 Units/0.5 ml)) 5,000 unit Q12 SC Last administered on 10/04/16 08:32; Admin Dose 5,000 UNIT; Start 09/29/16 at 09:00 Acetaminophen/ Hydrocodone Bitart ([place] (5/325)) 1 tab Q6H PRN PO PAIN Last administered on 10/03/16 22:47; Admin Dose 1 TAB; Start 09/28/16 at 23:00 Acetaminophen/ Hydrocodone Bitart ([place] (5/325)) 2 tab Q6H PRN PO PAIN Last administered on 10/04/16 08:33; Admin Dose 2 TAB; Start 09/28/16 at 23:00 Famotidine (Pepcid) 40 mg QHS PO Last administered on 10/03/16 20:04; Admin Dose 40 MG; Start 09/29/16 at 21:00 Fenofibrate (Tricor) 48 mg QAM PO Last administered on 10/04/16 08:32; Admin Dose 48 MG; Start 09/29/16 at 09:00 Folic Acid (Folic Acid) 1 mg BID PO Last administered on 10/04/16 08:32; Admin Dose 1 MG; Start 09/29/16 at 09:00 Eye Lubricant (Artificial Tears Oph) 2 drop Q2H PRN BOTH EYES DRY EYES; Start 09/28/16 at 23:30 Atorvastatin Calcium (Lipitor) 40 mg DAILY@21 PO Last administered on 20:04; Admin Dose 40 MG; Start 09/29/16 at 21:00 Docusate Sodium (Colace) 100 mg Q12H PRN PO CONSTIPATION; Start 09/28/16 at 23: 30 Epoetin César (Epogen (Esrd)) 10,000 units MoWeFr@17 SC Last administered on 17:10; Admin Dose 10,000 UNITS; Start 09/30/16 at 17:00 Docusate Sodium (Colace) 100 mg BID PO Last administered on 10/04/16 08:34; Admin Dose 100 MG; Start 09/29/16 at 09:00 Senna (Senokot) 1 tab HS PO Last administered on 10/03/16 20:04; Admin Dose 1 TAB; Start 09/29/16 at 21:00 Bisacodyl (Dulcolax Supp) 10 mg DAILY PRN [place] CONSTIPATION; Start 09/29/16 at 05 :30 Magnesium Hydroxide (Milk Of Mag) 30 ml BID PRN PO CONSTIPATION Last administered on 10/04/16 08:33; Admin Dose 30 ML; Start 09/29/16 at 05:30 Gabapentin (Neurontin) 100 mg 09,16 PO Last administered on 10/04/16 08:33; Admin Dose 100 MG; Start 09/29/16 at 16:00 Gabapentin (Neurontin) 300 mg QHS PO Last administered on 10/03/16 20:05; Admin Dose 300 MG; Start 09/29/16 at 21:00 JENNY MOTT Oct 04, 2016 10:26
--- NOTE | 2016-10-04 11:59 | RADRPT ---
PROCEDURE: Ultrasound of the bilateral lower extremity venous system. CLINICAL INDICATION: Bilateral leg pain and swelling, deep venous thrombosis TECHNIQUE: Goyal scale with and without compression, color doppler, spectral doppler of the venous system of the bilateral lower extremities was performed. Venous augmentation maneuvers were utilized . COMPARISON: No prior studies are available for comparison. FINDINGS: RIGHT: Common femoral vein: Patent. Femoral vein: Patent. Popliteal vein: Patent. Calf veins: Patent. No soft tissue abnormalities are identified. LEFT: Common femoral vein: Patent. Femoral vein: Patent. Popliteal vein: Patent. Calf veins: Patent. No soft tissue abnormalities are identified. IMPRESSION: No evidence of a deep vein thrombosis within the bilateral lower extremities. RPTAT: AADD .Ramón Day MD, MD Date Time Electronically viewed and signed by .Ramón Day MD, on 10/04/2016 11:59 .B/
--- NOTE | 2016-10-04 14:02 | PN ---
Date/Time of Note Date/Time of Note DATE: 10/04/16 TIME: 13:59 Assessment/Plan VTE Prophylaxis VTE Prophylaxis Intervention: SCD's Lines/Catheters IV Catheter Type (from [facility]): Saline Lock Urinary Cath still in place: No Assessment/Plan Problems: (1) Atrial fibrillation Status: Chronic Comment: Rate is controlled. Anticoagulation roughly 10 days Qualifiers: Atrial fibrillation type: chronic Qualified Code: I48.2 - Chronic atrial fibrillation (2) COPD (chronic obstructive pulmonary disease) Status: Chronic Comment: Compensated with current therapeutics Qualifiers: COPD type: emphysema Emphysema type: panlobular Qualified Code: J43.1 - Panlobular emphysema (3) Sarcoidosis Status: Chronic Comment: Low-dose steroid stable and quiescent (4) ESRD (end stage renal disease) on dialysis Status: Chronic Comment: Continues on hemodialysis as per renal (5) Diabetes mellitus type 2 in obese Status: Chronic Comment: Sugar control is adequate under present circumstances using a controlled environment therapeutics and diet (6) Hypertension associated with chronic kidney disease due to type 2 diabetes mellitus Status: Chronic Comment: Her blood pressure is adequately controlled under the current circumstances (7) Hyperlipidemia Status: Chronic Comment: Continue statin therapy (8) Obstructive sleep apnea Status: Chronic Comment: Noted. The patient refuses nocturnal BiPAP (9) Status post transcatheter aortic valve replacement (TAVR) using bioprosthesis Status: Acute Comment: Operating normally without evidence of complications (10) Presence of coronary angioplasty implant and graft Status: Chronic Comment: Successful and operational without complication Assessment/Plan Rehabilitation after dens fracture.; She is doing quite well on her current regimen is coming along slowly. Given the totality of all her other medical problems rapid progress would be somewhat unusual. Continue therapeutics Subjective 24 Hr Interval Summary Free Text/Dictation Patient reports some leg cramping but otherwise attempting to move around Constitutional: no complaints (No fever chills or sweats) Respiratory: no complaints Cardiovascular: no complaints Gastrointestinal: no complaints Genitourinary: no complaints Exam/Review of Systems Vital Signs Vitals Vital Signs Date Time Temp Pulse Resp B/P Pulse Ox O2 Delivery O2 Flow Rate FiO2 10/04/16 09:30 2.0 10/04/16 07:54 97.9 78 18 119/59 98 10/03/16 22:10 Nasal Cannula Intake and Output 10/03/16 10/03/16 10/04/16 15:00 23:00 07:00 Intake Total 870 ml 650 ml Output Total 1 ml Balance 869 ml 650 ml Exam Constitutional: alert, oriented Respiratory: clear to auscultation, normal air movement Cardiovascular: irregular rhythm, nl pulses Gastrointestinal: nl liver, spleen, non-tender, soft Extremities: normal pulses Results Result Diagram: 10/03/16 0620 10/03/16 0620 Results 24 hrs Laboratory Tests Test 10/03/16 17:40 10/03/16 20:01 10/04/16 07:45 10/04/16 12:26 Bedside Glucose 142 130 96 124 Medications Medications Current Medications Sodium Biphosphate/ Sodium Phosphate (Fleet Enema) 133 ml DAILY PRN [place] CONSTIPATION; Start 09/28/16 at 23:00 Tramadol HCl (Ultram) 50 mg Q8H PRN PO PAIN Last administered on 10/03/16 20: 05; Admin Dose 50 MG; Start 09/28/16 at 23:00 Prednisone (Prednisone) 1 mg QHS PO Last administered on 10/03/16 20:04; Admin Dose 1 MG; Start 09/29/16 at 21:00 Prednisone (Prednisone) 4 mg DAILY PO Last administered on 10/04/16 08:32; Admin Dose 4 MG; Start 09/29/16 at 09:00 Salmeterol Xinafoate/ Fluticasone (Advair 250/50 Diskus) 1 inh BID INH Last administered on 10/04/16 08:31; Admin Dose 1 INH; Start 09/29/16 at 09:00 Diagnostic Test (Pha) (Accu-Chek) 1 ea 02 XX ; Start 09/29/16 at 02:00 Miscellaneous Information 1 ea NOTE XX ; Start 09/28/16 at 23:00 Glucose (Glutose) 15 gm Q15M PRN PO DECREASED GLUCOSE; Start 09/28/16 at 23:00 Glucose (Glutose) 22.5 gm Q15M PRN PO DECREASED GLUCOSE; Start 09/28/16 at 23: 00 Dextrose (D50w Syringe) 25 ml Q15M PRN IV DECREASED GLUCOSE; Start 09/28/16 at 23:00 Dextrose (D50w Syringe) 50 ml Q15M PRN IV DECREASED GLUCOSE; Start 09/28/16 at 23:00 Glucagon (Glucagen) 1 mg Q15M PRN IM DECREASED GLUCOSE; Start 09/28/16 at 23:00 Glucose (Glutose) 15 gm Q15M PRN BUCCAL DECREASED GLUCOSE; Start 09/28/16 at 23 :00 Linagliptin (Tradjenta) 5 mg DAILY PO Last administered on 10/04/16 08:33; Admin Dose 5 MG; Start 09/29/16 at 09:00 Metoprolol Tartrate (Lopressor) 25 mg BID PO Last administered on 10/04/16 08: 34; Admin Dose 25 MG; Start 09/29/16 at 09:00 Heparin Sodium (Porcine) (Heparin (5000 Units/0.5 ml)) 5,000 unit Q12 SC Last administered on 10/04/16 08:32; Admin Dose 5,000 UNIT; Start 09/29/16 at 09:00 Acetaminophen/ Hydrocodone Bitart ([place] (5/325)) 1 tab Q6H PRN PO PAIN Last administered on 10/03/16 22:47; Admin Dose 1 TAB; Start 09/28/16 at 23:00 Acetaminophen/ Hydrocodone Bitart ([place] (5/325)) 2 tab Q6H PRN PO PAIN Last administered on 10/04/16 08:33; Admin Dose 2 TAB; Start 09/28/16 at 23:00; Status Future Hold Famotidine (Pepcid) 40 mg QHS PO Last administered on 10/03/16 20:04; Admin Dose 40 MG; Start 09/29/16 at 21:00 Fenofibrate (Tricor) 48 mg QAM PO Last administered on 10/04/16 08:32; Admin Dose 48 MG; Start 09/29/16 at 09:00 Folic Acid (Folic Acid) 1 mg BID PO Last administered on 10/04/16 08:32; Admin Dose 1 MG; Start 09/29/16 at 09:00 Eye Lubricant (Artificial Tears Oph) 2 drop Q2H PRN BOTH EYES DRY EYES; Start 09/28/16 at 23:30 Atorvastatin Calcium (Lipitor) 40 mg DAILY@21 PO Last administered on 20:04; Admin Dose 40 MG; Start 09/29/16 at 21:00 Docusate Sodium (Colace) 100 mg Q12H PRN PO CONSTIPATION; Start 09/28/16 at 23: 30 Epoetin César (Epogen (Esrd)) 10,000 units MoWeFr@17 SC Last administered on 17:10; Admin Dose 10,000 UNITS; Start 09/30/16 at 17:00 Docusate Sodium (Colace) 100 mg BID PO Last administered on 10/04/16 08:34; Admin Dose 100 MG; Start 09/29/16 at 09:00 Senna (Senokot) 1 tab HS PO Last administered on 10/03/16 20:04; Admin Dose 1 TAB; Start 09/29/16 at 21:00 Bisacodyl (Dulcolax Supp) 10 mg DAILY PRN [place] CONSTIPATION; Start 09/29/16 at 05 :30 Magnesium Hydroxide (Milk Of Mag) 30 ml BID PRN PO CONSTIPATION Last administered on 10/04/16 08:33; Admin Dose 30 ML; Start 09/29/16 at 05:30 Gabapentin (Neurontin) 100 mg TID PO Last administered on 10/04/16 12:53; Admin Dose 100 MG; Start 10/04/16 at 13:00 TOMER GARCIA MD Oct 04, 2016 14:02
[2016-10-04 19:29] VITALS: BP 117/56; RESP 18
[2016-10-04] MEDS: FAMOTIDINE 20 MG TAB PO SCH (20:35)
[2016-10-04] MEDS: ATORVASTATIN 40 MG TAB PO SCH (20:36)
[2016-10-04] MEDS: traMADol 50 MG TAB PO PRN (20:36)
[2016-10-04] MEDS: SENNA TAB PO SCH (20:36)
[2016-10-05] VITALS (11 sets, daily range): BP systolic 115–170; BP diastolic 46–67; PULSE 60–82; RESP 18–20
[2016-10-05] MEDS: ALBUTEROL/IPRATROPIUM (NEB) 3 ML AMP HHN SCH ×6 (01:00→20:51)
[2016-10-05] MEDS: ACCUCHECK AT 2AM (Patients on SS coverage) XX SCH (02:00)
--- NOTE | 2016-10-05 07:24 | CONS ---
Date/Time of Note Date/Time of Note DATE: 10/05/16 TIME: 07:22 Assessment/Plan Assessment/Plan Additional Assessment/Plan 1. Stable post cx spine fx. 2. Anemia is stable 3. CKD, to have HD today 4. Will rev NIVVS of lower extrem Consultation Date/Type/Reason Admit Date/Time Sep 28, 2016 at 22:05 Type of Consultation: renal Detailed Summary ENT: other (mild sore throat without diff swallowing) Respiratory: No cough, No shortness of breath Cardiovascular: No chest pain, No orthopenea Gastrointestinal: no complaints Genitourinary: no complaints Musculoskeletal: neck pain (mild neck discomfort) Exam/Review of Systems Vital Signs Vitals Vital Signs Date Time Temp Pulse Resp B/P Pulse Ox O2 Delivery O2 Flow Rate FiO2 10/05/16 01:50 2.0 10/04/16 19:43 Nasal Cannula 10/04/16 19:29 98.4 75 18 117/56 93 Intake and Output 10/04/16 10/04/16 10/05/16 15:00 23:00 07:00 Intake Total 1200 ml 740 ml 500 ml Output Total 200 ml Balance 1200 ml 540 ml 500 ml Exam Neck: No jvd Respiratory: clear to auscultation Cardiovascular: regular rate and rhythm Gastrointestinal: soft Extremities: edema (brawny edema, right calf is sl tender), other Results Result Diagram: 10/03/16 0620 10/03/16 0620 Results 24 hrs Laboratory Tests Test 10/04/16 07:45 10/04/16 12:26 10/04/16 17:17 10/04/16 20:21 Bedside Glucose 96 124 123 135 Medications Medications Current Medications Sodium Biphosphate/ Sodium Phosphate (Fleet Enema) 133 ml DAILY PRN [place] CONSTIPATION; Start 09/28/16 at 23:00 Tramadol HCl (Ultram) 50 mg Q8H PRN PO PAIN Last administered on 10/04/16 20: 36; Admin Dose 50 MG; Start 09/28/16 at 23:00 Prednisone (Prednisone) 1 mg QHS PO Last administered on 10/04/16 20:35; Admin Dose 1 MG; Start 09/29/16 at 21:00 Prednisone (Prednisone) 4 mg DAILY PO Last administered on 10/04/16 08:32; Admin Dose 4 MG; Start 09/29/16 at 09:00 Salmeterol Xinafoate/ Fluticasone (Advair 250/50 Diskus) 1 inh BID INH Last administered on 10/04/16 20:35; Admin Dose 1 INH; Start 09/29/16 at 09:00 Diagnostic Test (Pha) (Accu-Chek) 1 ea 02 XX ; Start 09/29/16 at 02:00 Miscellaneous Information 1 ea NOTE XX ; Start 09/28/16 at 23:00 Glucose (Glutose) 15 gm Q15M PRN PO DECREASED GLUCOSE; Start 09/28/16 at 23:00 Glucose (Glutose) 22.5 gm Q15M PRN PO DECREASED GLUCOSE; Start 09/28/16 at 23: 00 Dextrose (D50w Syringe) 25 ml Q15M PRN IV DECREASED GLUCOSE; Start 09/28/16 at 23:00 Dextrose (D50w Syringe) 50 ml Q15M PRN IV DECREASED GLUCOSE; Start 09/28/16 at 23:00 Glucagon (Glucagen) 1 mg Q15M PRN IM DECREASED GLUCOSE; Start 09/28/16 at 23:00 Glucose (Glutose) 15 gm Q15M PRN BUCCAL DECREASED GLUCOSE; Start 09/28/16 at 23 :00 Linagliptin (Tradjenta) 5 mg DAILY PO Last administered on 10/04/16 08:33; Admin Dose 5 MG; Start 09/29/16 at 09:00 Metoprolol Tartrate (Lopressor) 25 mg BID PO Last administered on 10/04/16 20: 37; Admin Dose 25 MG; Start 09/29/16 at 09:00 Heparin Sodium (Porcine) (Heparin (5000 Units/0.5 ml)) 5,000 unit Q12 SC Last administered on 10/04/16 20:45; Admin Dose 5,000 UNIT; Start 09/29/16 at 09:00 Acetaminophen/ Hydrocodone Bitart ([place] (5/325)) 1 tab Q6H PRN PO PAIN Last administered on 10/03/16 22:47; Admin Dose 1 TAB; Start 09/28/16 at 23:00 Acetaminophen/ Hydrocodone Bitart ([place] (5/325)) 2 tab Q6H PRN PO PAIN Last administered on 10/04/16 08:33; Admin Dose 2 TAB; Start 09/28/16 at 23:00; Status Future Hold Famotidine (Pepcid) 40 mg QHS PO Last administered on 10/04/16 20:35; Admin Dose 40 MG; Start 09/29/16 at 21:00 Fenofibrate (Tricor) 48 mg QAM PO Last administered on 10/04/16 08:32; Admin Dose 48 MG; Start 09/29/16 at 09:00 Folic Acid (Folic Acid) 1 mg BID PO Last administered on 10/04/16 20:49; Admin Dose 1 MG; Start 09/29/16 at 09:00 Eye Lubricant (Artificial Tears Oph) 2 drop Q2H PRN BOTH EYES DRY EYES; Start 09/28/16 at 23:30 Atorvastatin Calcium (Lipitor) 40 mg DAILY@21 PO Last administered on 20:36; Admin Dose 40 MG; Start 09/29/16 at 21:00 Docusate Sodium (Colace) 100 mg Q12H PRN PO CONSTIPATION; Start 09/28/16 at 23: 30 Epoetin César (Epogen (Esrd)) 10,000 units MoWeFr@17 SC Last administered on 17:10; Admin Dose 10,000 UNITS; Start 09/30/16 at 17:00 Docusate Sodium (Colace) 100 mg BID PO Last administered on 10/04/16 20:36; Admin Dose 100 MG; Start 09/29/16 at 09:00 Senna (Senokot) 1 tab HS PO Last administered on 10/04/16 20:36; Admin Dose 1 TAB; Start 09/29/16 at 21:00 Bisacodyl (Dulcolax Supp) 10 mg DAILY PRN [place] CONSTIPATION; Start 09/29/16 at 05 :30 Magnesium Hydroxide (Milk Of Mag) 30 ml BID PRN PO CONSTIPATION Last administered on 10/04/16 08:33; Admin Dose 30 ML; Start 09/29/16 at 05:30 Gabapentin (Neurontin) 100 mg TID PO Last administered on 10/04/16 20:35; Admin Dose 100 MG; Start 10/04/16 at 13:00 Warfarin Sodium (Coumadin) 4 mg DAILY@17 PO ; Start 10/14/16 at 17:00 ARISTIDES WATKINS MD Oct 05, 2016 07:24
[2016-10-05] MEDS: Insulin NOVOLOG SS MILD Algorithm (SS with meals and bedtime) SC SCH ×4 (07:35→21:00)
[2016-10-05] MEDS: SEVELAMER CARBONATE 0.8 GM PKT PO SCH ×3 (08:35→18:13)
[2016-10-05] MEDS: SALMETEROL/FLUTICASONE 250/50 INHA INH SCH ×2 (08:36→21:20)
[2016-10-05] MEDS: HYDROCODONE/APAP (5/325) TAB PO PRN ×2 (08:36→23:40)
[2016-10-05] MEDS: GABAPENTIN 100 MG CAP PO SCH ×3 (08:36→21:22)
[2016-10-05] MEDS: DOCUSATE SODIUM 100 MG CAP PO SCH ×2 (08:36→21:21)
[2016-10-05] MEDS: FENOFIBRATE 48 MG TAB PO SCH (08:36)
[2016-10-05] MEDS: predniSONE 1 MG TAB PO SCH ×3 (08:37→21:22)
[2016-10-05] MEDS: FOLIC ACID 1 MG TAB PO SCH ×2 (08:37→21:21)
[2016-10-05] MEDS: METOPROLOL 25 MG TAB PO SCH ×2 (08:37→21:32)
[2016-10-05] MEDS: LINAGLIPTIN 5 MG TABLET PO SCH (08:37)
[2016-10-05] MEDS: HEPARIN 5,000 UNIT/0.5 ML VIAL SC SCH ×2 (08:38→21:40)
--- NOTE | 2016-10-05 11:29 | PN ---
Date/Time of Note Date/Time of Note DATE: 10/05/16 TIME: 11:25 Assessment/Plan VTE Prophylaxis VTE Prophylaxis Intervention: contraindicated Lines/Catheters IV Catheter Type (from Nrsg): Saline Lock Urinary Cath still in place: No Assessment/Plan Assessment/Plan 1. Status post fall with type II/III C2 fracture and Blunt head trauma, with impaired mobility/gait/ADLs/cognition. Treated nonoperatively per neurosurgery. Continue cervical collar per neurosurgery instructions. Continue PT/OT/ST. Min assist for safety awareness, mod assist for short term memory. 2. Acute pain syndrome secondary to above. Pain controlled, continue current pain regimen. No sedation has been reported, continue to monitor. 3. End-stage renal disease. Continue hemodialysis. Nephrology following. 4. Dysphagia. Continue ST. Maintain aspiration precautions. 5. CAD status post stent. Continue medical management. 6. Sarcoidosis. Stable, On steroids per internal medicine. 7. Diabetes mellitus type 2. Blood sugars well controlled. On gabapentin for diabetic polyneuropathy. 8. Hypertension. BP controlled. Continue current management. 9. Chronic atrial fibrillation. Rate controlled. Continue medical management per internal medicine. 10. COPD. Stable. Continue breathing treatments. 11. Anemia of chronic disease. On epogen per nephrology/internal medicine. Monitor hemoglobin/hematocrit, overall has been stable. 12. Bilateral calf pain yesterday during gait training with PT. Venous doppler US showed no evidence of DVT. Monitor. Subjective 24 Hr Interval Summary Free Text/Dictation Rehab progress note Subjective: Reports stable neck pain currently, no new changes. ROS: Denies chest pain, no shortness of breath, no abdominal pain, no nausea, no vomiting, no chills, no new weakness. Exam/Review of Systems Vital Signs Vitals Vital Signs Date Time Temp Pulse Resp B/P Pulse Ox O2 Delivery O2 Flow Rate FiO2 10/05/16 08:00 Nasal Cannula 2.0 10/05/16 07:31 98.0 87 18 118/56 96 Intake and Output 10/04/16 10/04/16 10/05/16 15:00 23:00 07:00 Intake Total 1200 ml 740 ml 500 ml Output Total 200 ml Balance 1200 ml 540 ml 500 ml Exam General: Awake, alert, no acute distress Neck: Cervical collar in place CV: Irregular rhythm, audible s1s2 Lungs: Clear to auscultation, no wheezing or crackles Abdomen obese, soft, nontender Extremities:+Lower extremity edema, negative homans sign Neuro: No new focal changes. Follows simple commands. Results Result Diagram: 10/03/16 0620 10/03/16 0620 Results 24 hrs Laboratory Tests Test 10/04/16 12:26 10/04/16 17:17 10/04/16 20:21 10/05/16 07:45 Bedside Glucose 124 123 135 84 Medications Medications Current Medications Sodium Biphosphate/ Sodium Phosphate (Fleet Enema) 133 ml DAILY PRN [place] CONSTIPATION; Start 09/28/16 at 23:00 Tramadol HCl (Ultram) 50 mg Q8H PRN PO PAIN Last administered on 10/04/16 20: 36; Admin Dose 50 MG; Start 09/28/16 at 23:00 Prednisone (Prednisone) 1 mg QHS PO Last administered on 10/04/16 20:35; Admin Dose 1 MG; Start 09/29/16 at 21:00 Prednisone (Prednisone) 4 mg DAILY PO Last administered on 10/05/16 08:37; Admin Dose 4 MG; Start 09/29/16 at 09:00 Salmeterol Xinafoate/ Fluticasone (Advair 250/50 Diskus) 1 inh BID INH Last administered on 10/05/16 08:36; Admin Dose 1 INH; Start 09/29/16 at 09:00 Diagnostic Test (Pha) (Accu-Chek) 1 ea 02 XX ; Start 09/29/16 at 02:00 Miscellaneous Information 1 ea NOTE XX ; Start 09/28/16 at 23:00 Glucose (Glutose) 15 gm Q15M PRN PO DECREASED GLUCOSE; Start 09/28/16 at 23:00 Glucose (Glutose) 22.5 gm Q15M PRN PO DECREASED GLUCOSE; Start 09/28/16 at 23: 00 Dextrose (D50w Syringe) 25 ml Q15M PRN IV DECREASED GLUCOSE; Start 09/28/16 at 23:00 Dextrose (D50w Syringe) 50 ml Q15M PRN IV DECREASED GLUCOSE; Start 09/28/16 at 23:00 Glucagon (Glucagen) 1 mg Q15M PRN IM DECREASED GLUCOSE; Start 09/28/16 at 23:00 Glucose (Glutose) 15 gm Q15M PRN BUCCAL DECREASED GLUCOSE; Start 09/28/16 at 23 :00 Linagliptin (Tradjenta) 5 mg DAILY PO Last administered on 10/05/16 08:37; Admin Dose 5 MG; Start 09/29/16 at 09:00 Metoprolol Tartrate (Lopressor) 25 mg BID PO Last administered on 10/05/16 08: 37; Admin Dose 25 MG; Start 09/29/16 at 09:00 Heparin Sodium (Porcine) (Heparin (5000 Units/0.5 ml)) 5,000 unit Q12 SC Last administered on 10/05/16 08:38; Admin Dose 5,000 UNIT; Start 09/29/16 at 09:00 Acetaminophen/ Hydrocodone Bitart ([place] (5/325)) 1 tab Q6H PRN PO PAIN Last administered on 10/05/16 08:36; Admin Dose 1 TAB; Start 09/28/16 at 23:00 Acetaminophen/ Hydrocodone Bitart ([place] (5/325)) 2 tab Q6H PRN PO PAIN Last administered on 10/04/16 08:33; Admin Dose 2 TAB; Start 09/28/16 at 23:00; Status Future Hold Famotidine (Pepcid) 40 mg QHS PO Last administered on 10/04/16 20:35; Admin Dose 40 MG; Start 09/29/16 at 21:00 Fenofibrate (Tricor) 48 mg QAM PO Last administered on 10/05/16 08:36; Admin Dose 48 MG; Start 09/29/16 at 09:00 Folic Acid (Folic Acid) 1 mg BID PO Last administered on 10/05/16 08:37; Admin Dose 1 MG; Start 09/29/16 at 09:00 Eye Lubricant (Artificial Tears Oph) 2 drop Q2H PRN BOTH EYES DRY EYES; Start 09/28/16 at 23:30 Atorvastatin Calcium (Lipitor) 40 mg DAILY@21 PO Last administered on 20:36; Admin Dose 40 MG; Start 09/29/16 at 21:00 Docusate Sodium (Colace) 100 mg Q12H PRN PO CONSTIPATION; Start 09/28/16 at 23: 30 Epoetin César (Epogen (Esrd)) 10,000 units MoWeFr@17 SC Last administered on 17:10; Admin Dose 10,000 UNITS; Start 09/30/16 at 17:00 Docusate Sodium (Colace) 100 mg BID PO Last administered on 10/05/16 08:36; Admin Dose 100 MG; Start 09/29/16 at 09:00 Senna (Senokot) 1 tab HS PO Last administered on 10/04/16 20:36; Admin Dose 1 TAB; Start 09/29/16 at 21:00 Bisacodyl (Dulcolax Supp) 10 mg DAILY PRN [place] CONSTIPATION; Start 09/29/16 at 05 :30 Magnesium Hydroxide (Milk Of Mag) 30 ml BID PRN PO CONSTIPATION Last administered on 10/04/16 08:33; Admin Dose 30 ML; Start 09/29/16 at 05:30 Gabapentin (Neurontin) 100 mg TID PO Last administered on 10/05/16 08:36; Admin Dose 100 MG; Start 10/04/16 at 13:00 Warfarin Sodium (Coumadin) 4 mg DAILY@17 PO ; Start 10/14/16 at 17:00 JENNY MOTT Oct 05, 2016 11:29 JENNY MOTT Oct 05, 2016 11:29
--- NOTE | 2016-10-05 17:55 | PN ---
Date/Time of Note Date/Time of Note DATE: 10/05/16 TIME: 17:50 Assessment/Plan VTE Prophylaxis VTE Prophylaxis Intervention: anti-embolic stocking Lines/Catheters [facility] Saline Lock Urinary Cath still in place: No Assessment/Plan Problems: (1) Atrial fibrillation Status: Chronic Comment: Stable and rate controlled Qualifiers: Atrial fibrillation type: chronic Qualified Code: I48.2 - Chronic atrial fibrillation (2) COPD (chronic obstructive pulmonary disease) Status: Chronic Comment: Adequate response to treatment and stable Qualifiers: COPD type: emphysema Emphysema type: panlobular Qualified Code: J43.1 - Panlobular emphysema (3) Sarcoidosis Status: Chronic Comment: On low-dose steroids; stable; inactive (4) ESRD (end stage renal disease) on dialysis Status: Chronic Comment: On hemodialysis (5) Diabetes mellitus type 2 in obese Status: Chronic Comment: Excellent control (6) Hypertension associated with chronic kidney disease due to type 2 diabetes mellitus Status: Chronic Comment: Adequate control (7) Obstructive sleep apnea Status: Chronic Comment: Declines nocturnal CPAP (8) Type 2 diabetes mellitus with diabetic polyneuropathy Status: Chronic Comment: Good control Qualifiers: Diabetes mellitus 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 insulin use: without 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 use Qualified Code: E11.42 - Type 2 diabetes mellitus with diabetic polyneuropathy, without long-term current use of insulin (9) Left bundle branch block (LBBB) Status: Chronic Subjective 24 Hr Interval Summary Free Text/Dictation Patient reports she is attempting to do the best she can Constitutional: no complaints Eyes: no complaints ENT: other Respiratory: no complaints Cardiovascular: no complaints Gastrointestinal: no complaints Exam/Review of Systems Vital Signs Vitals Vital Signs Date Time Temp Pulse Resp B/P Pulse Ox O2 Delivery O2 Flow Rate FiO2 10/05/16 17:30 69 10/05/16 08:00 Nasal Cannula 2.0 10/05/16 07:31 98.0 18 118/56 96 Intake and Output 10/04/16 10/04/16 10/05/16 15:00 23:00 07:00 Intake Total 1200 ml 740 ml 500 ml Output Total 200 ml Balance 1200 ml 540 ml 500 ml Exam Constitutional: alert, oriented Eyes: EOMI, nl conjunctiva, nl lids, nl sclera ENMT: mucosa pink and moist, nl external ears & nose, nl lips & teeth, nl nasal mucosa & septum, other (Right ear canal with cerumen) Neck: non-tender, supple Respiratory: clear to auscultation, normal air movement Results Result Diagram: 10/03/16 0620 10/03/16 0620 Results 24 hrs Laboratory Tests Test 10/04/16 20:21 10/05/16 07:45 10/05/16 12:17 10/05/16 17:25 Bedside Glucose 135 84 102 137 Medications Medications Current Medications Sodium Biphosphate/ Sodium Phosphate (Fleet Enema) [address] CONSTIPATION; Start 09/28/16 at 23:00 Tramadol HCl (Ultram) 50 mg Q8H PRN PO PAIN Last administered on 10/04/16 20: 36; Admin Dose 50 MG; Start 09/28/16 at 23:00 Prednisone (Prednisone) 1 mg QHS PO Last administered on 10/04/16 20:35; Admin Dose 1 MG; Start 09/29/16 at 21:00 Prednisone (Prednisone) 4 mg DAILY PO Last administered on 10/05/16 08:37; Admin Dose 4 MG; Start 09/29/16 at 09:00 Salmeterol Xinafoate/ Fluticasone (Advair 250/50 Diskus) 1 inh BID INH Last administered on 10/05/16 08:36; Admin Dose 1 INH; Start 09/29/16 at 09:00 Diagnostic Test (Pha) (Accu-Chek) 1 ea 02 XX ; Start 09/29/16 at 02:00 Miscellaneous Information 1 ea NOTE XX ; Start 09/28/16 at 23:00 Glucose (Glutose) 15 gm Q15M PRN PO DECREASED GLUCOSE; Start 09/28/16 at 23:00 Glucose (Glutose) 22.5 gm Q15M PRN PO DECREASED GLUCOSE; Start 09/28/16 at 23: 00 Dextrose (D50w Syringe) 25 ml Q15M PRN IV DECREASED GLUCOSE; Start 09/28/16 at 23:00 Dextrose (D50w Syringe) 50 ml Q15M PRN IV DECREASED GLUCOSE; Start 09/28/16 at 23:00 Glucagon (Glucagen) 1 mg Q15M PRN IM DECREASED GLUCOSE; Start 09/28/16 at 23:00 Glucose (Glutose) 15 gm Q15M PRN BUCCAL DECREASED GLUCOSE; Start 09/28/16 at 23 :00 Linagliptin (Tradjenta) 5 mg DAILY PO Last administered on 10/05/16 08:37; Admin Dose 5 MG; Start 09/29/16 at 09:00 Metoprolol Tartrate (Lopressor) 25 mg BID PO Last administered on 10/05/16 08: 37; Admin Dose 25 MG; Start 09/29/16 at 09:00 Heparin Sodium (Porcine) (Heparin (5000 Units/0.5 ml)) 5,000 unit Q12 SC Last administered on 10/05/16 08:38; Admin Dose 5,000 UNIT; Start 09/29/16 at 09:00 Acetaminophen/ Hydrocodone Bitart ([place] (5/325)) 1 tab Q6H PRN PO PAIN Last administered on 10/05/16 08:36; Admin Dose 1 TAB; Start 09/28/16 at 23:00 Acetaminophen/ Hydrocodone Bitart ([place] (5/325)) 2 tab Q6H PRN PO PAIN Last administered on 10/04/16 08:33; Admin Dose 2 TAB; Start 09/28/16 at 23:00; Status Future Hold Famotidine (Pepcid) 40 mg QHS PO Last administered on 10/04/16 20:35; Admin Dose 40 MG; Start 09/29/16 at 21:00 Fenofibrate (Tricor) 48 mg QAM PO Last administered on 10/05/16 08:36; Admin Dose 48 MG; Start 09/29/16 at 09:00 Folic Acid (Folic Acid) 1 mg BID PO Last administered on 10/05/16 08:37; Admin Dose 1 MG; Start 09/29/16 at 09:00 Eye Lubricant (Artificial Tears Oph) 2 drop Q2H PRN BOTH EYES DRY EYES; Start 09/28/16 at 23:30 Atorvastatin Calcium (Lipitor) 40 mg DAILY@21 PO Last administered on 20:36; Admin Dose 40 MG; Start 09/29/16 at 21:00 Docusate Sodium (Colace) 100 mg Q12H PRN PO CONSTIPATION; Start 09/28/16 at 23: 30 Epoetin César (Epogen (Esrd)) 10,000 units MoWeFr@17 SC Last administered on 17:10; Admin Dose 10,000 UNITS; Start 09/30/16 at 17:00 Docusate Sodium (Colace) 100 mg BID PO Last administered on 10/05/16 08:36; Admin Dose 100 MG; Start 09/29/16 at 09:00 Senna (Senokot) 1 tab HS PO Last administered on 10/04/16 20:36; Admin Dose 1 TAB; Start 09/29/16 at 21:00 Bisacodyl (Dulcolax Supp) [address] CONSTIPATION; Start 09/29/16 at 05 :30 Magnesium Hydroxide (Milk Of Mag) 30 ml BID PRN PO CONSTIPATION Last administered on 10/04/16 08:33; Admin Dose 30 ML; Start 09/29/16 at 05:30 Gabapentin (Neurontin) 100 mg TID PO Last administered on 10/05/16 12:24; Admin Dose 100 MG; Start 10/04/16 at 13:00 Warfarin Sodium (Coumadin) 4 mg DAILY@17 PO ; Start 10/14/16 at 17:00 TOMER GARCIA MD Oct 05, 2016 17:55
[2016-10-05] MEDS: EPOETIN 10000 UNITS/1 ML INJ (ESRD) SC SCH (18:14)
[2016-10-05] MEDS: SENNA TAB PO SCH (21:00)
[2016-10-05] MEDS: ATORVASTATIN 40 MG TAB PO SCH (21:21)
[2016-10-05] MEDS: FAMOTIDINE 20 MG TAB PO SCH (21:22)
[2016-10-06] MEDS: ALBUTEROL/IPRATROPIUM (NEB) 3 ML AMP HHN SCH ×6 (00:52→20:24)
[2016-10-06] MEDS: ACCUCHECK AT 2AM (Patients on SS coverage) XX SCH (02:00)
[2016-10-06 07:30] VITALS: BP 147/66; RESP 20
[2016-10-06] MEDS: Insulin NOVOLOG SS MILD Algorithm (SS with meals and bedtime) SC SCH ×4 (07:35→21:00)
--- NOTE | 2016-10-06 07:43 | CONS ---
Date/Time of Note Date/Time of Note DATE: 10/06/16 TIME: 07:42 Assessment/Plan Assessment/Plan Additional Assessment/Plan 1. Stable post cx spine fx 2. CKD, to have HD today 3. Anemia has been stable 4. Labs ordered tomm Consultation Date/Type/Reason Admit Date/Time Sep 28, 2016 at 22:05 Type of Consultation: renal Detailed Summary Respiratory: No cough, No shortness of breath Cardiovascular: No chest pain Gastrointestinal: No no complaints Musculoskeletal: neck pain (pain is less) Exam/Review of Systems Vital Signs Vitals Vital Signs Date Time Temp Pulse Resp B/P Pulse Ox O2 Delivery O2 Flow Rate FiO2 10/05/16 21:30 82 20 124/63 96 Nasal Cannula 10/05/16 20:52 1.0 10/05/16 20:00 97.8 Intake and Output 10/05/16 10/05/16 10/06/16 15:00 23:00 07:00 Intake Total 900 ml 860 ml 200 ml Output Total 100 ml 2500 ml Balance 800 ml -1640 ml 200 ml Exam Neck: No jvd Respiratory: clear to auscultation Cardiovascular: regular rate and rhythm Gastrointestinal: soft Extremities: No edema (and no calf tend) Results Result Diagram: 10/03/16 0620 10/03/16 0620 Results 24 hrs Laboratory Tests Test 10/05/16 07:45 10/05/16 12:17 10/05/16 17:25 10/05/16 21:25 Bedside Glucose 84 102 137 113 Medications Medications Current Medications Sodium Biphosphate/ Sodium Phosphate (Fleet Enema) 133 ml DAILY PRN [place] CONSTIPATION; Start 09/28/16 at 23:00 Tramadol HCl (Ultram) 50 mg Q8H PRN PO PAIN Last administered on 10/04/16 20: 36; Admin Dose 50 MG; Start 09/28/16 at 23:00 Prednisone (Prednisone) 1 mg QHS PO Last administered on 10/05/16 21:22; Admin Dose 1 MG; Start 09/29/16 at 21:00 Prednisone (Prednisone) 4 mg DAILY PO Last administered on 10/05/16 08:37; Admin Dose 4 MG; Start 09/29/16 at 09:00 Salmeterol Xinafoate/ Fluticasone (Advair 250/50 Diskus) 1 inh BID INH Last administered on 10/05/16 21:20; Admin Dose 1 INH; Start 09/29/16 at 09:00 Diagnostic Test (Pha) (Accu-Chek) 1 ea 02 XX ; Start 09/29/16 at 02:00 Miscellaneous Information 1 ea NOTE XX ; Start 09/28/16 at 23:00 Glucose (Glutose) 15 gm Q15M PRN PO DECREASED GLUCOSE; Start 09/28/16 at 23:00 Glucose (Glutose) 22.5 gm Q15M PRN PO DECREASED GLUCOSE; Start 09/28/16 at 23: 00 Dextrose (D50w Syringe) 25 ml Q15M PRN IV DECREASED GLUCOSE; Start 09/28/16 at 23:00 Dextrose (D50w Syringe) 50 ml Q15M PRN IV DECREASED GLUCOSE; Start 09/28/16 at 23:00 Glucagon (Glucagen) 1 mg Q15M PRN IM DECREASED GLUCOSE; Start 09/28/16 at 23:00 Glucose (Glutose) 15 gm Q15M PRN BUCCAL DECREASED GLUCOSE; Start 09/28/16 at 23 :00 Linagliptin (Tradjenta) 5 mg DAILY PO Last administered on 10/05/16 08:37; Admin Dose 5 MG; Start 09/29/16 at 09:00 Metoprolol Tartrate (Lopressor) 25 mg BID PO Last administered on 10/05/16 21: 32; Admin Dose 25 MG; Start 09/29/16 at 09:00 Heparin Sodium (Porcine) (Heparin (5000 Units/0.5 ml)) 5,000 unit Q12 SC Last administered on 10/05/16 21:40; Admin Dose 5,000 UNIT; Start 09/29/16 at 09:00 Acetaminophen/ Hydrocodone Bitart ([place] (5/325)) 1 tab Q6H PRN PO PAIN Last administered on 10/05/16 23:40; Admin Dose 1 TAB; Start 09/28/16 at 23:00 Acetaminophen/ Hydrocodone Bitart ([place] (5/325)) 2 tab Q6H PRN PO PAIN Last administered on 10/04/16 08:33; Admin Dose 2 TAB; Start 09/28/16 at 23:00; Status Future Hold Famotidine (Pepcid) 40 mg QHS PO Last administered on 10/05/16 21:22; Admin Dose 40 MG; Start 09/29/16 at 21:00 Fenofibrate (Tricor) 48 mg QAM PO Last administered on 10/05/16 08:36; Admin Dose 48 MG; Start 09/29/16 at 09:00 Folic Acid (Folic Acid) 1 mg BID PO Last administered on 10/05/16 21:21; Admin Dose 1 MG; Start 09/29/16 at 09:00 Eye Lubricant (Artificial Tears Oph) 2 drop Q2H PRN BOTH EYES DRY EYES; Start 09/28/16 at 23:30 Atorvastatin Calcium (Lipitor) 40 mg DAILY@21 PO Last administered on 21:21; Admin Dose 40 MG; Start 09/29/16 at 21:00 Docusate Sodium (Colace) 100 mg Q12H PRN PO CONSTIPATION; Start 09/28/16 at 23: 30 Epoetin César (Epogen (Esrd)) 10,000 units MoWeFr@17 SC Last administered on 18:14; Admin Dose 10,000 UNITS; Start 09/30/16 at 17:00 Docusate Sodium (Colace) 100 mg BID PO Last administered on 10/05/16 21:21; Admin Dose 100 MG; Start 09/29/16 at 09:00 Senna (Senokot) 1 tab HS PO Last administered on 10/04/16 20:36; Admin Dose 1 TAB; Start 09/29/16 at 21:00 Bisacodyl (Dulcolax Supp) 10 mg DAILY PRN [place] CONSTIPATION; Start 09/29/16 at 05 :30 Magnesium Hydroxide (Milk Of Mag) 30 ml BID PRN PO CONSTIPATION Last administered on 10/04/16 08:33; Admin Dose 30 ML; Start 09/29/16 at 05:30 Gabapentin (Neurontin) 100 mg TID PO Last administered on 10/05/16 21:22; Admin Dose 100 MG; Start 10/04/16 at 13:00 Warfarin Sodium (Coumadin) 4 mg DAILY@17 PO ; Start 10/14/16 at 17:00 ARISTIDES WATKINS MD Oct 06, 2016 07:43
[2016-10-06] MEDS: SEVELAMER CARBONATE 0.8 GM PKT PO SCH ×3 (08:27→17:31)
[2016-10-06] MEDS: SALMETEROL/FLUTICASONE 250/50 INHA INH SCH ×2 (08:27→21:30)
[2016-10-06] MEDS: predniSONE 1 MG TAB PO SCH ×3 (08:28→21:31)
[2016-10-06] MEDS: FENOFIBRATE 48 MG TAB PO SCH (08:28)
[2016-10-06] MEDS: HYDROCODONE/APAP (5/325) TAB PO PRN ×2 (08:29→21:41)
[2016-10-06] MEDS: METOPROLOL 25 MG TAB PO SCH ×2 (08:29→21:32)
[2016-10-06] MEDS: LINAGLIPTIN 5 MG TABLET PO SCH (08:29)
[2016-10-06] MEDS: FOLIC ACID 1 MG TAB PO SCH ×2 (08:29→21:31)
[2016-10-06] MEDS: DOCUSATE SODIUM 100 MG CAP PO SCH ×2 (08:29→21:30)
[2016-10-06] MEDS: GABAPENTIN 100 MG CAP PO SCH ×3 (08:29→21:31)
[2016-10-06] MEDS: HEPARIN 5,000 UNIT/0.5 ML VIAL SC SCH ×2 (08:36→21:39)
--- NOTE | 2016-10-06 11:34 | PN ---
Date/Time of Note Date/Time of Note DATE: 10/06/16 TIME: 11:31 Assessment/Plan VTE Prophylaxis VTE Prophylaxis Intervention: heparin Lines/Catheters IV Catheter Type (from Nrsg): Saline Lock Urinary Cath still in place: No Assessment/Plan Assessment/Plan 1. Status post fall with C2 fracture and blunt head trauma, with impaired mobility/gait/ADLs/cognition. Continue treatment with hard cervical collar per NSGY. Continue PT/OT/ST. Continue to work on improving standing balance, improving to fair minus. Gait improving now min assist 25ft with FWW. 2. Acute pain syndrome secondary to above. Pain controlled, continue pain regimen. 3. End-stage renal disease. On dialysis per internal medicine/nephrology. 4. Dysphagia. Continue mechanical soft diet per ST. Maintain aspiration precautions. Continue ST. 5. CAD status post stent. Continue medical management. 6. Sarcoidosis. On steroids per internal medicine/pulmonary. 7. Diabetes mellitus type 2 with diabetic polyneuropathy. Blood sugars controlled, continue current management. Continue gabapentin. 8. Hypertension. BP controlled. Continue current management. 9. Chronic atrial fibrillation. Rate controlled. Continue medical management per internal medicine/cardiology. 10. COPD. Continue to monitor pulmonary status, stable. Continue breathing treatments. 11. Anemia of chronic disease. On epogen per nephrology/internal medicine. Monitor hemoglobin/hematocrit. Subjective 24 Hr Interval Summary Free Text/Dictation Rehab progress note Subjective: Mild neck pain currently. No new complaints. ROS: Denies new weakness or new paresthesias. No abdominal pain, no nausea or vomiting, no chills. No shortness of breath. Exam/Review of Systems Vital Signs Vitals Vital Signs Date Time Temp Pulse Resp B/P Pulse Ox O2 Delivery O2 Flow Rate FiO2 10/06/16 08:00 Nasal Cannula 2.0 10/06/16 08:00 81 18 98 10/06/16 07:30 98.9 147/66 Intake and Output 10/05/16 10/05/16 10/06/16 15:00 23:00 07:00 Intake Total 900 ml 860 ml 200 ml Output Total 100 ml 2500 ml Balance 800 ml -1640 ml 200 ml Exam General: Awake, alert, no acute distress NECK: Hard cervical collar in place CV: Irregular rhythm, s1s2 audible Lungs: Symmetrical air entry bilaterally, no wheezing Abdomen soft, nontender Extremities without cyanosis, BLE edema Neuro: No new focal changes. Follows simple commands. Results Result Diagram: 10/03/16 0620 10/03/16 0620 Results 24 hrs Laboratory Tests Test 10/05/16 12:17 10/05/16 17:25 10/05/16 21:25 10/06/16 07:45 Bedside Glucose 102 137 113 81 Medications Medications Current Medications Sodium Biphosphate/ Sodium Phosphate (Fleet Enema) 133 ml DAILY PRN [place] CONSTIPATION; Start 09/28/16 at 23:00 Tramadol HCl (Ultram) 50 mg Q8H PRN PO PAIN Last administered on 10/04/16 20: 36; Admin Dose 50 MG; Start 09/28/16 at 23:00 Prednisone (Prednisone) 1 mg QHS PO Last administered on 10/05/16 21:22; Admin Dose 1 MG; Start 09/29/16 at 21:00 Prednisone (Prednisone) 4 mg DAILY PO Last administered on 10/06/16 08:28; Admin Dose 4 MG; Start 09/29/16 at 09:00 Salmeterol Xinafoate/ Fluticasone (Advair 250/50 Diskus) 1 inh BID INH Last administered on 10/06/16 08:27; Admin Dose 1 INH; Start 09/29/16 at 09:00 Diagnostic Test (Pha) (Accu-Chek) 1 ea 02 XX ; Start 09/29/16 at 02:00 Miscellaneous Information 1 ea NOTE XX ; Start 09/28/16 at 23:00 Glucose (Glutose) 15 gm Q15M PRN PO DECREASED GLUCOSE; Start 09/28/16 at 23:00 Glucose (Glutose) 22.5 gm Q15M PRN PO DECREASED GLUCOSE; Start 09/28/16 at 23: 00 Dextrose (D50w Syringe) 25 ml Q15M PRN IV DECREASED GLUCOSE; Start 09/28/16 at 23:00 Dextrose (D50w Syringe) 50 ml Q15M PRN IV DECREASED GLUCOSE; Start 09/28/16 at 23:00 Glucagon (Glucagen) 1 mg Q15M PRN IM DECREASED GLUCOSE; Start 09/28/16 at 23:00 Glucose (Glutose) 15 gm Q15M PRN BUCCAL DECREASED GLUCOSE; Start 09/28/16 at 23 :00 Linagliptin (Tradjenta) 5 mg DAILY PO Last administered on 10/06/16 08:29; Admin Dose 5 MG; Start 09/29/16 at 09:00 Metoprolol Tartrate (Lopressor) 25 mg BID PO Last administered on 10/06/16 08: 29; Admin Dose 25 MG; Start 09/29/16 at 09:00 Heparin Sodium (Porcine) (Heparin (5000 Units/0.5 ml)) 5,000 unit Q12 SC Last administered on 10/06/16 08:36; Admin Dose 5,000 UNIT; Start 09/29/16 at 09:00 Acetaminophen/ Hydrocodone Bitart ([place] (5/325)) 1 tab Q6H PRN PO PAIN Last administered on 10/06/16 08:29; Admin Dose 1 TAB; Start 09/28/16 at 23:00 Acetaminophen/ Hydrocodone Bitart ([place] (5/325)) 2 tab Q6H PRN PO PAIN Last administered on 10/04/16 08:33; Admin Dose 2 TAB; Start 09/28/16 at 23:00; Status Future Hold Famotidine (Pepcid) 40 mg QHS PO Last administered on 10/05/16 21:22; Admin Dose 40 MG; Start 09/29/16 at 21:00 Fenofibrate (Tricor) 48 mg QAM PO Last administered on 10/06/16 08:28; Admin Dose 48 MG; Start 09/29/16 at 09:00 Folic Acid (Folic Acid) 1 mg BID PO Last administered on 10/06/16 08:29; Admin Dose 1 MG; Start 09/29/16 at 09:00 Eye Lubricant (Artificial Tears Oph) 2 drop Q2H PRN BOTH EYES DRY EYES; Start 09/28/16 at 23:30 Atorvastatin Calcium (Lipitor) 40 mg DAILY@21 PO Last administered on 21:21; Admin Dose 40 MG; Start 09/29/16 at 21:00 Docusate Sodium (Colace) 100 mg Q12H PRN PO CONSTIPATION; Start 09/28/16 at 23: 30 Epoetin César (Epogen (Esrd)) 10,000 units MoWeFr@17 SC Last administered on 18:14; Admin Dose 10,000 UNITS; Start 09/30/16 at 17:00 Docusate Sodium (Colace) 100 mg BID PO Last administered on 10/06/16 08:29; Admin Dose 100 MG; Start 09/29/16 at 09:00 Senna (Senokot) 1 tab HS PO Last administered on 10/04/16 20:36; Admin Dose 1 TAB; Start 09/29/16 at 21:00 Bisacodyl (Dulcolax Supp) 10 mg DAILY PRN [place] CONSTIPATION; Start 09/29/16 at 05 :30 Magnesium Hydroxide (Milk Of Mag) 30 ml BID PRN PO CONSTIPATION Last administered on 10/04/16 08:33; Admin Dose 30 ML; Start 09/29/16 at 05:30 Gabapentin (Neurontin) 100 mg TID PO Last administered on 10/06/16 08:29; Admin Dose 100 MG; Start 10/04/16 at 13:00 Warfarin Sodium (Coumadin) 4 mg DAILY@17 PO ; Start 10/14/16 at 17:00 JENNY MOTT Oct 06, 2016 11:34
--- NOTE | 2016-10-06 14:14 | PN ---
Date/Time of Note Date/Time of Note DATE: 10/06/16 TIME: 14:12 Assessment/Plan VTE Prophylaxis VTE Prophylaxis Intervention: other Lines/Catheters IV [facility]ter Type [facility]from [facility] Saline Lock Urinary Cath still in place: No Assessment/Plan Problems: (1) Atrial fibrillation Status: Chronic Comment: Rate remains controlled. Qualifiers: Atrial fibrillation type: chronic Qualified Code: I48.2 - Chronic atrial fibrillation (2) COPD (chronic obstructive pulmonary disease) Status: Chronic Comment: Adequate control under current treatment Qualifiers: COPD type: emphysema Emphysema type: panlobular Qualified Code: J43.1 - Panlobular emphysema (3) Sarcoidosis Status: Chronic Comment: Stable. (4) Diabetes mellitus type 2 in obese Status: Chronic Comment: Well-controlled and stable. (5) ESRD (end stage renal disease) on dialysis Status: Chronic Comment: As per nephrology. Assessment/Plan Status post fall with C2 dens fracture. At this time she is doing fair with physical therapy. We will have to continue trying to push her along as aggressively as we can Subjective 24 Hr Interval Summary Free Text/Dictation Patient reports she is trying to work with physical therapy Constitutional: no complaints Respiratory: no complaints Cardiovascular: no complaints Gastrointestinal: no complaints Exam/Review of Systems Vital Signs Vitals Vital Signs Date Time Temp Pulse Resp B/P Pulse Ox O2 Delivery O2 Flow Rate FiO2 10/06/16 12:12 1.0 10/06/16 08:00 Nasal Cannula 10/06/16 08:00 81 18 98 10/06/16 07:30 98.9 147/66 Intake and Output 10/05/16 10/05/16 10/06/16 15:00 23:00 07:00 Intake Total 900 ml 860 ml 200 ml Output Total 100 ml 2500 ml Balance 800 ml -1640 ml 200 ml Exam Constitutional: alert, oriented Respiratory: clear to auscultation, normal air movement Cardiovascular: irregular rhythm, nl pulses Gastrointestinal: nl liver, spleen, non-tender, soft Results Result Diagram: 10/03/16 0620 10/03/16 0620 Results 24 hrs Laboratory Tests Test 10/05/16 17:25 10/05/16 21:25 10/06/16 07:45 10/06/16 12:25 Bedside Glucose 137 113 81 104 Medications Medications Current Medications Sodium Biphosphate/ Sodium Phosphate (Fleet Enema) 133 ml DAILY PRN [place] CONSTIPATION; Start 09/28/16 at 23:00 Tramadol HCl (Ultram) 50 mg Q8H PRN PO PAIN Last administered on 10/04/16 20: 36; Admin Dose 50 MG; Start 09/28/16 at 23:00 Prednisone (Prednisone) 1 mg QHS PO Last administered on 10/05/16 21:22; Admin Dose 1 MG; Start 09/29/16 at 21:00 Prednisone (Prednisone) 4 mg DAILY PO Last administered on 10/06/16 08:28; Admin Dose 4 MG; Start 09/29/16 at 09:00 Salmeterol Xinafoate/ Fluticasone (Advair 250/50 Diskus) 1 inh BID INH Last administered on 10/06/16 08:27; Admin Dose 1 INH; Start 09/29/16 at 09:00 Diagnostic Test (Pha) (Accu-Chek) 1 ea 02 XX ; Start 09/29/16 at 02:00 Miscellaneous Information 1 ea NOTE XX ; Start 09/28/16 at 23:00 Glucose (Glutose) 15 gm Q15M PRN PO DECREASED GLUCOSE; Start 09/28/16 at 23:00 Glucose (Glutose) 22.5 gm Q15M PRN PO DECREASED GLUCOSE; Start 09/28/16 at 23: 00 Dextrose (D50w Syringe) 25 ml Q15M PRN IV DECREASED GLUCOSE; Start 09/28/16 at 23:00 Dextrose (D50w Syringe) 50 ml Q15M PRN IV DECREASED GLUCOSE; Start 09/28/16 at 23:00 Glucagon (Glucagen) 1 mg Q15M PRN IM DECREASED GLUCOSE; Start 09/28/16 at 23:00 Glucose (Glutose) 15 gm Q15M PRN BUCCAL DECREASED GLUCOSE; Start 09/28/16 at 23 :00 Linagliptin (Tradjenta) 5 mg DAILY PO Last administered on 10/06/16 08:29; Admin Dose 5 MG; Start 09/29/16 at 09:00 Metoprolol Tartrate (Lopressor) 25 mg BID PO Last administered on 10/06/16 08: 29; Admin Dose 25 MG; Start 09/29/16 at 09:00 Heparin Sodium (Porcine) (Heparin (5000 Units/0.5 ml)) 5,000 unit Q12 SC Last administered on 10/06/16 08:36; Admin Dose 5,000 UNIT; Start 09/29/16 at 09:00 Acetaminophen/ Hydrocodone Bitart ([place] (5/325)) 1 tab Q6H PRN PO PAIN Last administered on 10/06/16 08:29; Admin Dose 1 TAB; Start 09/28/16 at 23:00 Acetaminophen/ Hydrocodone Bitart ([place] (5/325)) 2 tab Q6H PRN PO PAIN Last administered on 10/04/16 08:33; Admin Dose 2 TAB; Start 09/28/16 at 23:00; Status Future Hold Famotidine (Pepcid) 40 mg QHS PO Last administered on 10/05/16 21:22; Admin Dose 40 MG; Start 09/29/16 at 21:00 Fenofibrate (Tricor) 48 mg QAM PO Last administered on 10/06/16 08:28; Admin Dose 48 MG; Start 09/29/16 at 09:00 Folic Acid (Folic Acid) 1 mg BID PO Last administered on 10/06/16 08:29; Admin Dose 1 MG; Start 09/29/16 at 09:00 Eye Lubricant (Artificial Tears Oph) 2 drop Q2H PRN BOTH EYES DRY EYES; Start 09/28/16 at 23:30 Atorvastatin Calcium (Lipitor) 40 mg DAILY@21 PO Last administered on 21:21; Admin Dose 40 MG; Start 09/29/16 at 21:00 Docusate Sodium (Colace) 100 mg Q12H PRN PO CONSTIPATION; Start 09/28/16 at 23: 30 Epoetin César (Epogen (Esrd)) 10,000 units MoWeFr@17 SC Last administered on 18:14; Admin Dose 10,000 UNITS; Start 09/30/16 at 17:00 Docusate Sodium (Colace) 100 mg BID PO Last administered on 10/06/16 08:29; Admin Dose 100 MG; Start 09/29/16 at 09:00 Senna (Senokot) 1 tab HS PO Last administered on 10/04/16 20:36; Admin Dose 1 TAB; Start 09/29/16 at 21:00 Bisacodyl (Dulcolax Supp) 10 mg DAILY PRN [place] CONSTIPATION; Start 09/29/16 at 05 :30 Magnesium Hydroxide (Milk Of Mag) 30 ml BID PRN PO CONSTIPATION Last administered on 10/04/16 08:33; Admin Dose 30 ML; Start 09/29/16 at 05:30 Gabapentin (Neurontin) 100 mg TID PO Last administered on 10/06/16 12:33; Admin Dose 100 MG; Start 10/04/16 at 13:00 Warfarin Sodium (Coumadin) 4 mg DAILY@17 PO ; Start 10/14/16 at 17:00 TOMER GARCIA MD Oct 06, 2016 14:14
[2016-10-06 19:56] VITALS: BP 133/60; RESP 18
[2016-10-06] MEDS: SENNA TAB PO SCH (21:00)
[2016-10-06] MEDS: ATORVASTATIN 40 MG TAB PO SCH (21:31)
[2016-10-06] MEDS: FAMOTIDINE 20 MG TAB PO SCH (21:31)
[2016-10-07] VITALS (11 sets, daily range): BP systolic 102–148; BP diastolic 35–63; PULSE 74–86; RESP 18
[2016-10-07] MEDS: ALBUTEROL/IPRATROPIUM (NEB) 3 ML AMP HHN SCH ×6 (00:48→20:49)
[2016-10-07] MEDS: ACCUCHECK AT 2AM (Patients on SS coverage) XX SCH (02:00)
[2016-10-07 06:56] LABS: ADD SCAN DIFF NO
[2016-10-07 07:06] LABS: BASOPHILS % 0.4 % (0.0-2.0); EOSINOPHILS # 0.2 10^3/ul (0.0-0.5); EOSINOPHILS % 4.1 % (0.0-7.0); HEMATOCRIT 27.6 % (37.0-47.0); HEMOGLOBIN 8.8 g/dl (12.0-16.0); LYMPHOCYTES # 1.5 10^3/ul (0.8-2.9); LYMPHOCYTES % 32.6 % (15.0-51.0); MEAN CORPUSCULAR HEMOGLOBIN 30.4 pg (29.0-33.0); MEAN CORPUSCULAR HGB CONC 31.9 g/dl (32.0-37.0); MEAN CORPUSCULAR VOLUME 95.5 fl (82.0-101.0); MEAN PLATELET VOLUME 10.4 fl (7.4-10.4); MONOCYTE # 0.5 10^3/ul (0.3-0.9); MONOCYTES % 10.2 % (0.0-11.0); NEUTROPHIL # 2.4 10^3/ul (1.6-7.5); NEUTROPHILS % 52.3 % (39.0-77.0); PLATELET COUNT 149 10^3/UL (140-415); RED BLOOD COUNT 2.89 10^6/ul (4.20-5.40); RED CELL DISTRIBUTION WIDTH 17.5 % (11.5-14.5); WHITE BLOOD COUNT 4.6 10^3/ul (4.8-10.8)
[2016-10-07] MEDS: HYDROCODONE/APAP (5/325) TAB PO PRN ×3 (07:21→21:32)
[2016-10-07] MEDS: Insulin NOVOLOG SS MILD Algorithm (SS with meals and bedtime) SC SCH ×4 (07:35→21:00)
[2016-10-07 07:44] LABS: CALCIUM 9.6 mg/dl (8.4-10.2); CREATININE 6.77 mg/dl (0.44-1.00); PHOSPHORUS 5.2 mg/dl (2.5-4.9); POTASSIUM 3.7 mmol/L (3.5-5.1)
[2016-10-07] MEDS: SEVELAMER CARBONATE 0.8 GM PKT PO SCH ×3 (08:27→17:41)
[2016-10-07] MEDS: LINAGLIPTIN 5 MG TABLET PO SCH (08:27)
[2016-10-07] MEDS: DOCUSATE SODIUM 100 MG CAP PO SCH ×2 (08:27→21:29)
[2016-10-07] MEDS: FOLIC ACID 1 MG TAB PO SCH ×2 (08:27→21:29)
[2016-10-07] MEDS: METOPROLOL 25 MG TAB PO SCH ×3 (08:28→21:32)
[2016-10-07] MEDS: predniSONE 1 MG TAB PO SCH ×3 (08:28→21:29)
[2016-10-07] MEDS: GABAPENTIN 100 MG CAP PO SCH ×3 (08:28→21:29)
[2016-10-07] MEDS: FENOFIBRATE 48 MG TAB PO SCH (08:28)
[2016-10-07] MEDS: HEPARIN 5,000 UNIT/0.5 ML VIAL SC SCH ×2 (08:29→21:49)
--- NOTE | 2016-10-07 08:36 | CONS ---
Date/Time of Note Date/Time of Note DATE: 10/07/16 TIME: 08:34 Assessment/Plan Assessment/Plan Additional Assessment/Plan 1. Cont to improve with PT following cx spine fx which did not require surgical intervention 2. CKD, to have HD toay 3. Anemia has been stable 4. DM, sugars are acceptable Consultation Date/Type/Reason Admit Date/Time Sep 28, 2016 at 22:05 Type of Consultation: renal Detailed Summary Respiratory: No cough, No shortness of breath Cardiovascular: No chest pain, No orthopenea Gastrointestinal: no complaints Genitourinary: no complaints Musculoskeletal: neck pain (is mild) Neurologic: No headache Exam/Review of Systems Vital Signs Vitals Vital Signs Date Time Temp Pulse Resp B/P Pulse Ox O2 Delivery O2 Flow Rate FiO2 10/07/16 08:31 21 10/07/16 08:00 98.4 74 18 145/63 95 10/07/16 06:27 1.0 10/06/16 20:24 Nasal Cannula Intake and Output 10/06/16 10/06/16 10/07/16 15:00 23:00 07:00 Intake Total 360 ml 200 ml Balance 360 ml 200 ml Exam Neck: No jvd Respiratory: clear to auscultation Cardiovascular: regular rate and rhythm Gastrointestinal: soft Extremities: No edema (and no calf tend) 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: No focal weakness Results Result Diagram: 10/07/16 0600 10/07/16 0600 Results 24 hrs Laboratory Tests Test 10/06/16 12:25 10/06/16 17:08 10/06/16 21:34 10/07/16 06:00 Bedside Glucose 104 93 108 White Blood Count 4.6 #L Red Blood Count 2.89 L Hemoglobin 8.8 L Hematocrit 27.6 L Mean Corpuscular Volume 95.5 Mean Corpuscular Hemoglobin 30.4 Mean Corpuscular Hemoglobin Concent 31.9 L Red Cell Distribution Width 17.5 H Platelet Count 149 Mean Platelet Volume 10.4 Neutrophils % 52.3 Lymphocytes % 32.6 Monocytes % 10.2 Eosinophils % 4.1 Basophils % 0.4 Nucleated Red Blood Cells % 0.0 Neutrophils # 2.4 Lymphocytes # 1.5 Monocytes # 0.5 Eosinophils # 0.2 Basophils # 0.0 Nucleated Red Blood Cells # 0.0 Sodium Level 131 L Potassium Level 3.7 Chloride Level 96 L Carbon Dioxide Level 25 Anion Gap 14 Blood Urea Nitrogen 51 H Creatinine 6.77 H Glucose Level 77 Calcium Level 9.6 Phosphorus Level 5.2 H Test 10/07/16 08:16 Bedside Glucose 92 Medications Medications Current Medications Sodium Biphosphate/ Sodium Phosphate (Fleet Enema) 133 ml DAILY PRN [place] CONSTIPATION; Start 09/28/16 at 23:00 Tramadol HCl (Ultram) 50 mg Q8H PRN PO PAIN Last administered on 10/04/16 20: 36; Admin Dose 50 MG; Start 09/28/16 at 23:00 Prednisone (Prednisone) 1 mg QHS PO Last administered on 10/06/16 21:31; Admin Dose 1 MG; Start 09/29/16 at 21:00 Prednisone (Prednisone) 4 mg DAILY PO Last administered on 10/07/16 08:28; Admin Dose 4 MG; Start 09/29/16 at 09:00 Salmeterol Xinafoate/ Fluticasone (Advair 250/50 Diskus) 1 inh BID INH Last administered on 10/06/16 21:30; Admin Dose 1 INH; Start 09/29/16 at 09:00 Diagnostic Test (Pha) (Accu-Chek) 1 ea 02 XX ; Start 09/29/16 at 02:00 Miscellaneous Information 1 ea NOTE XX ; Start 09/28/16 at 23:00 Glucose (Glutose) 15 gm Q15M PRN PO DECREASED GLUCOSE; Start 09/28/16 at 23:00 Glucose (Glutose) 22.5 gm Q15M PRN PO DECREASED GLUCOSE; Start 09/28/16 at 23: 00 Dextrose (D50w Syringe) 25 ml Q15M PRN IV DECREASED GLUCOSE; Start 09/28/16 at 23:00 Dextrose (D50w Syringe) 50 ml Q15M PRN IV DECREASED GLUCOSE; Start 09/28/16 at 23:00 Glucagon (Glucagen) 1 mg Q15M PRN IM DECREASED GLUCOSE; Start 09/28/16 at 23:00 Glucose (Glutose) 15 gm Q15M PRN BUCCAL DECREASED GLUCOSE; Start 09/28/16 at 23 :00 Linagliptin (Tradjenta) 5 mg DAILY PO Last administered on 10/07/16 08:27; Admin Dose 5 MG; Start 09/29/16 at 09:00 Metoprolol Tartrate (Lopressor) 25 mg BID PO Last administered on 10/07/16 08: 28; Admin Dose 25 MG; Start 09/29/16 at 09:00 Heparin Sodium (Porcine) (Heparin (5000 Units/0.5 ml)) 5,000 unit Q12 SC Last administered on 10/07/16 08:29; Admin Dose 5,000 UNIT; Start 09/29/16 at 09:00 Acetaminophen/ Hydrocodone Bitart ([place] (5/325)) 1 tab Q6H PRN PO PAIN Last administered on 10/07/16 07:21; Admin Dose 1 TAB; Start 09/28/16 at 23:00 Acetaminophen/ Hydrocodone Bitart ([place] (5/325)) 2 tab Q6H PRN PO PAIN Last administered on 10/04/16 08:33; Admin Dose 2 TAB; Start 09/28/16 at 23:00; Status Future Hold Famotidine (Pepcid) 40 mg QHS PO Last administered on 10/06/16 21:31; Admin Dose 40 MG; Start 09/29/16 at 21:00 Fenofibrate (Tricor) 48 mg QAM PO Last administered on 10/07/16 08:28; Admin Dose 48 MG; Start 09/29/16 at 09:00 Folic Acid (Folic Acid) 1 mg BID PO Last administered on 10/07/16 08:27; Admin Dose 1 MG; Start 09/29/16 at 09:00 Eye Lubricant (Artificial Tears Oph) 2 drop Q2H PRN BOTH EYES DRY EYES; Start 09/28/16 at 23:30 Atorvastatin Calcium (Lipitor) 40 mg DAILY@21 PO Last administered on 21:31; Admin Dose 40 MG; Start 09/29/16 at 21:00 Docusate Sodium (Colace) 100 mg Q12H PRN PO CONSTIPATION; Start 09/28/16 at 23: 30 Epoetin César (Epogen (Esrd)) 10,000 units MoWeFr@17 SC Last administered on 18:14; Admin Dose 10,000 UNITS; Start 09/30/16 at 17:00 Docusate Sodium (Colace) 100 mg BID PO Last administered on 10/07/16 08:27; Admin Dose 100 MG; Start 09/29/16 at 09:00 Senna (Senokot) 1 tab HS PO Last administered on 10/04/16 20:36; Admin Dose 1 TAB; Start 09/29/16 at 21:00 Bisacodyl (Dulcolax Supp) 10 mg DAILY PRN [place] CONSTIPATION; Start 09/29/16 at 05 :30 Magnesium Hydroxide (Milk Of Mag) 30 ml BID PRN PO CONSTIPATION Last administered on 10/04/16 08:33; Admin Dose 30 ML; Start 09/29/16 at 05:30 Gabapentin (Neurontin) 100 mg TID PO Last administered on 10/07/16 08:28; Admin Dose 100 MG; Start 10/04/16 at 13:00 Warfarin Sodium (Coumadin) 4 mg DAILY@17 PO ; Start 10/14/16 at 17:00 ARISTIDES WATKINS MD Oct 07, 2016 08:36
[2016-10-07] MEDS: SALMETEROL/FLUTICASONE 250/50 INHA INH SCH ×2 (08:41→21:32)
--- NOTE | 2016-10-07 10:35 | PN ---
Date/Time of Note Date/Time of Note DATE: 10/07/16 TIME: 10:30 Assessment/Plan VTE Prophylaxis VTE Prophylaxis Intervention: heparin Lines/Catheters IV Catheter Type (from Nrsg): Saline Lock Urinary Cath still in place: No Assessment/Plan Assessment/Plan 1. Status post fall with type II/III C2 fracture and Blunt head trauma, with impaired mobility/gait/ADLs/cognition. Continue nonoperative treatment per neurosurgery, hard cervical collar. Continue PT/OT/ST. Continue to work on improving standing balance, fair minus. SBA for grooming, mod assist for lower body dressing. 2. Acute pain syndrome secondary to above, also with history of polyneuropathy. Pain controlled, continue pain regimen. 3. End-stage renal disease. On dialysis per internal medicine/nephrology. 4. Dysph[address]. ST recommends MBSS for further evaluation of swallowing. Follow up further recommendations. Maintain aspiration precautions. Continue ST. 5. CAD status post stent. Continue medical management. 6. Sarcoidosis. On steroids per internal medicine/pulmonary. 7. Diabetes mellitus type 2. Blood sugars controlled, continue current management. 8. Hypertension. BP controlled. Continue current management. 9. Chronic atrial fibrillation. Rate controlled. Continue medical management per internal medicine/cardiology. 10. COPD. Stable. Continue to monitor pulmonary status. Continue breathing treatments. 11. Anemia of chronic disease. On epogen per nephrology/internal medicine. Monitor hemoglobin/hematocrit, stable on labs today. Subjective 24 Hr Interval Summary Free Text/Dictation Rehab progress note Subjective: Yesterday had some difficulty with swallowing, reports feeling food getting stuck when eating rice. ROS: Denies chest pain, no shortness of breath, no abdominal pain, no nausea, no vomiting, no chills. Exam/Review of Systems Vital Signs Vitals Vital Signs Date Time Temp Pulse Resp B/P Pulse Ox O2 Delivery O2 Flow Rate FiO2 10/07/16 08:31 21 10/07/16 08:00 Nasal Cannula 2.0 10/07/16 08:00 98.4 74 18 145/63 95 Intake and Output 10/06/16 10/06/16 10/07/16 15:00 23:00 07:00 Intake Total 360 ml 200 ml Balance 360 ml 200 ml Exam General: Awake, alert, no acute distress CV: Regular rate, s1s2 audible Neck: Hard cervical collar in place Lungs: Respiration is nonlabored, no wheezing or crackles Abdomen soft, nontender, +bowel sounds Extremities without cyanosis, +LE edema. MSK/Neuro: No new focal changes. Follows simple commands. Results Result Diagram: 10/07/16 0600 10/07/16 0600 Results 24 hrs Laboratory Tests Test 10/06/16 12:25 10/06/16 17:08 10/06/16 21:34 10/07/16 06:00 Bedside Glucose 104 93 108 White Blood Count 4.6 #L Red Blood Count 2.89 L Hemoglobin 8.8 L Hematocrit 27.6 L Mean Corpuscular Volume 95.5 Mean Corpuscular Hemoglobin 30.4 Mean Corpuscular Hemoglobin Concent 31.9 L Red Cell Distribution Width 17.5 H Platelet Count 149 Mean Platelet Volume 10.4 Neutrophils % 52.3 Lymphocytes % 32.6 Monocytes % 10.2 Eosinophils % 4.1 Basophils % 0.4 Nucleated Red Blood Cells % 0.0 Neutrophils # 2.4 Lymphocytes # 1.5 Monocytes # 0.5 Eosinophils # 0.2 Basophils # 0.0 Nucleated Red Blood Cells # 0.0 Sodium Level 131 L Potassium Level 3.7 Chloride Level 96 L Carbon Dioxide Level 25 Anion Gap 14 Blood Urea Nitrogen 51 H Creatinine 6.77 H Glucose Level 77 Calcium Level 9.6 Phosphorus Level 5.2 H Test 10/07/16 08:16 Bedside Glucose 92 Medications Medications Current Medications Sodium Biphosphate/ Sodium Phosphate (Fleet Enema) 133 ml DAILY PRN [place] CONSTIPATION; Start 09/28/16 at 23:00 Tramadol HCl (Ultram) 50 mg Q8H PRN PO PAIN Last administered on 10/04/16 20: 36; Admin Dose 50 MG; Start 09/28/16 at 23:00 Prednisone (Prednisone) 1 mg QHS PO Last administered on 10/06/16 21:31; Admin Dose 1 MG; Start 09/29/16 at 21:00 Prednisone (Prednisone) 4 mg DAILY PO Last administered on 10/07/16 08:28; Admin Dose 4 MG; Start 09/29/16 at 09:00 Salmeterol Xinafoate/ Fluticasone (Advair 250/50 Diskus) 1 inh BID INH Last administered on 10/07/16 08:41; Admin Dose 1 INH; Start 09/29/16 at 09:00 Diagnostic Test (Pha) (Accu-Chek) 1 ea 02 XX ; Start 09/29/16 at 02:00 Miscellaneous Information 1 ea NOTE XX ; Start 09/28/16 at 23:00 Glucose (Glutose) 15 gm Q15M PRN PO DECREASED GLUCOSE; Start 09/28/16 at 23:00 Glucose (Glutose) 22.5 gm Q15M PRN PO DECREASED GLUCOSE; Start 09/28/16 at 23: 00 Dextrose (D50w Syringe) 25 ml Q15M PRN IV DECREASED GLUCOSE; Start 09/28/16 at 23:00 Dextrose (D50w Syringe) 50 ml Q15M PRN IV DECREASED GLUCOSE; Start 09/28/16 at 23:00 Glucagon (Glucagen) 1 mg Q15M PRN IM DECREASED GLUCOSE; Start 09/28/16 at 23:00 Glucose (Glutose) 15 gm Q15M PRN BUCCAL DECREASED GLUCOSE; Start 09/28/16 at 23 :00 Linagliptin (Tradjenta) 5 mg DAILY PO Last administered on 10/07/16 08:27; Admin Dose 5 MG; Start 09/29/16 at 09:00 Metoprolol Tartrate (Lopressor) 25 mg BID PO Last administered on 10/07/16 08: 28; Admin Dose 25 MG; Start 09/29/16 at 09:00 Heparin Sodium (Porcine) (Heparin (5000 Units/0.5 ml)) 5,000 unit Q12 SC Last administered on 10/07/16 08:29; Admin Dose 5,000 UNIT; Start 09/29/16 at 09:00 Acetaminophen/ Hydrocodone Bitart ([place] (5/325)) 1 tab Q6H PRN PO PAIN Last administered on 10/07/16 07:21; Admin Dose 1 TAB; Start 09/28/16 at 23:00 Acetaminophen/ Hydrocodone Bitart ([place] (5/325)) 2 tab Q6H PRN PO PAIN Last administered on 10/04/16 08:33; Admin Dose 2 TAB; Start 09/28/16 at 23:00; Status Future Hold Famotidine (Pepcid) 40 mg QHS PO Last administered on 10/06/16 21:31; Admin Dose 40 MG; Start 09/29/16 at 21:00 Fenofibrate (Tricor) 48 mg QAM PO Last administered on 10/07/16 08:28; Admin Dose 48 MG; Start 09/29/16 at 09:00 Folic Acid (Folic Acid) 1 mg BID PO Last administered on 10/07/16 08:27; Admin Dose 1 MG; Start 09/29/16 at 09:00 Eye Lubricant (Artificial Tears Oph) 2 drop Q2H PRN BOTH EYES DRY EYES; Start 09/28/16 at 23:30 Atorvastatin Calcium (Lipitor) 40 mg DAILY@21 PO Last administered on 21:31; Admin Dose 40 MG; Start 09/29/16 at 21:00 Docusate Sodium (Colace) 100 mg Q12H PRN PO CONSTIPATION; Start 09/28/16 at 23: 30 Epoetin César (Epogen (Esrd)) 10,000 units MoWeFr@17 SC Last administered on 18:14; Admin Dose 10,000 UNITS; Start 09/30/16 at 17:00 Docusate Sodium (Colace) 100 mg BID PO Last administered on 10/07/16 08:27; Admin Dose 100 MG; Start 09/29/16 at 09:00 Senna (Senokot) 1 tab HS PO Last administered on 10/04/16 20:36; Admin Dose 1 TAB; Start 09/29/16 at 21:00 Bisacodyl (Dulcolax Supp) 10 mg DAILY PRN [place] CONSTIPATION; Start 09/29/16 at 05 :30 Magnesium Hydroxide (Milk Of Mag) 30 ml BID PRN PO CONSTIPATION Last administered on 10/04/16 08:33; Admin Dose 30 ML; Start 09/29/16 at 05:30 Gabapentin (Neurontin) 100 mg TID PO Last administered on 10/07/16 08:28; Admin Dose 100 MG; Start 10/04/16 at 13:00 Warfarin Sodium (Coumadin) 4 mg DAILY@17 PO ; Start 10/14/16 at 17:00 JENNY MOTT Oct 07, 2016 10:34
[2016-10-07] MEDS: EPOETIN 10000 UNITS/1 ML INJ (ESRD) SC SCH (17:42)
[2016-10-07] MEDS: ATORVASTATIN 40 MG TAB PO SCH (21:29)
[2016-10-07] MEDS: SENNA TAB PO SCH (21:29)
[2016-10-07] MEDS: FAMOTIDINE 20 MG TAB PO SCH (21:29)
[2016-10-07] MEDS: traMADol 50 MG TAB PO PRN (22:45)
[2016-10-08] MEDS: ALBUTEROL/IPRATROPIUM (NEB) 3 ML AMP HHN SCH ×6 (00:05→21:00)
[2016-10-08] MEDS: ACCUCHECK AT 2AM (Patients on SS coverage) XX SCH (02:00)
[2016-10-08 07:30] VITALS: BP 165/66; RESP 20
[2016-10-08] MEDS: Insulin NOVOLOG SS MILD Algorithm (SS with meals and bedtime) SC SCH ×4 (07:35→21:00)
[2016-10-08] MEDS: LINAGLIPTIN 5 MG TABLET PO SCH (08:12)
[2016-10-08] MEDS: SALMETEROL/FLUTICASONE 250/50 INHA INH SCH ×2 (08:12→21:46)
[2016-10-08] MEDS: FENOFIBRATE 48 MG TAB PO SCH (08:13)
[2016-10-08] MEDS: FOLIC ACID 1 MG TAB PO SCH ×2 (08:13→21:47)
[2016-10-08] MEDS: METOPROLOL 25 MG TAB PO SCH ×2 (08:13→21:00)
[2016-10-08] MEDS: DOCUSATE SODIUM 100 MG CAP PO SCH ×2 (08:13→21:47)
[2016-10-08] MEDS: predniSONE 1 MG TAB PO SCH ×3 (08:15→21:47)
[2016-10-08] MEDS: SEVELAMER CARBONATE 0.8 GM PKT PO SCH ×3 (08:15→17:48)
[2016-10-08] MEDS: GABAPENTIN 100 MG CAP PO SCH ×3 (08:15→21:48)
[2016-10-08] MEDS: HEPARIN 5,000 UNIT/0.5 ML VIAL SC SCH ×2 (08:19→21:55)
--- NOTE | 2016-10-08 09:58 | PN ---
Date/Time of Note Date/Time of Note DATE: 10/08/16 TIME: 09:56 Assessment/Plan VTE Prophylaxis VTE Prophylaxis Intervention: heparin Lines/Catheters IV Catheter Type (from Nrsg): Saline Lock Urinary Cath still in place: No Assessment/Plan Assessment/Plan 1. Status post fall with C2 fracture and Blunt head trauma, with impaired mobility/gait/ADLs/cognition. Continue conservative treatment with cervical collar per neurosurgery instructions. Continue PT/OT/ST. Cognition overall improving, now with min impairments with short term memory. Min impairments for problem solving. 2. Acute pain syndrome secondary to above.. Pain controlled, continue pain regimen. 3. End-stage renal disease. On dialysis per nephrology. 4. Dysphagia. Continue ST. MBSS pending. Maintain aspiration precautions. 5. CAD. Continue medical management. 6. Sarcoidosis. On steroids per internal medicine. 7. Diabetes mellitus type 2 with polyneuropathy. Blood sugars controlled on current management. Polyneuropathy stable, continue gabapentin. 8. Hypertension.Continue to monitor BP, controlled with medical management. 9. Chronic atrial fibrillation. Continue medical management per internal medicine/cardiology. 10. COPD. Stable. Continue to monitor pulmonary status. Continue breathing treatments. 11. Anemia of chronic disease. Monitor hemoglobin/hematocrit, stable. Receiving epogen per nephrology. Subjective 24 Hr Interval Summary Free Text/Dictation Rehab progress note Subjective: No new complaints. Denies any further coughing with food. ROS: Denies chills, no headache, no chest pain, no shortness of breath, no abdominal pain, no nausea, no vomiting. Neck pain stable without acute changes. Exam/Review of Systems Vital Signs Vitals Vital Signs Date Time Temp Pulse Resp B/P Pulse Ox O2 Delivery O2 Flow Rate FiO2 10/08/16 08:00 Nasal Cannula 2.0 10/07/16 21:00 78 10/07/16 20:58 18 10/07/16 20:35 21 10/07/16 20:00 98.4 110/51 94 Intake and Output 10/07/16 10/07/16 10/08/16 14:59 22:59 06:59 Intake Total 720 ml 860 ml 200 ml Output Total 200 ml 2500 ml Balance 520 ml -1640 ml 200 ml Exam General: Awake, alert, no acute distress CV: Regular rate, s1s2 audible Neck: Hard cervical collar in place Lungs: Respirations are nonlabored, no wheezing or crackles Abdomen soft, nontender, +bowel sounds Extremities without cyanosis, unchanged LE edema. Neuro: No new focal changes. Follows simple commands. Results Result Diagram: 10/07/16 0600 10/07/16 0600 Results 24 hrs Laboratory Tests Test 10/07/16 12:10 10/07/16 17:06 10/07/16 21:41 10/08/16 07:46 Bedside Glucose 109 116 108 80 Medications Medications Current Medications Sodium Biphosphate/ Sodium Phosphate (Fleet Enema) 133 ml DAILY PRN [place] CONSTIPATION; Start 09/28/16 at 23:00 Tramadol HCl (Ultram) 50 mg Q8H PRN PO PAIN Last administered on 10/07/16 22: 45; Admin Dose 50 MG; Start 09/28/16 at 23:00 Prednisone (Prednisone) 1 mg QHS PO Last administered on 10/07/16 21:29; Admin Dose 1 MG; Start 09/29/16 at 21:00 Prednisone (Prednisone) 4 mg DAILY PO Last administered on 10/08/16 08:15; Admin Dose 4 MG; Start 09/29/16 at 09:00 Salmeterol Xinafoate/ Fluticasone (Advair 250/50 Diskus) 1 inh BID INH Last administered on 10/08/16 08:12; Admin Dose 1 INH; Start 09/29/16 at 09:00 Diagnostic Test (Pha) (Accu-Chek) 1 ea 02 XX ; Start 09/29/16 at 02:00 Miscellaneous Information 1 ea NOTE XX ; Start 09/28/16 at 23:00 Glucose (Glutose) 15 gm Q15M PRN PO DECREASED GLUCOSE; Start 09/28/16 at 23:00 Glucose (Glutose) 22.5 gm Q15M PRN PO DECREASED GLUCOSE; Start 09/28/16 at 23: 00 Dextrose (D50w Syringe) 25 ml Q15M PRN IV DECREASED GLUCOSE; Start 09/28/16 at 23:00 Dextrose (D50w Syringe) 50 ml Q15M PRN IV DECREASED GLUCOSE; Start 09/28/16 at 23:00 Glucagon (Glucagen) 1 mg Q15M PRN IM DECREASED GLUCOSE; Start 09/28/16 at 23:00 Glucose (Glutose) 15 gm Q15M PRN BUCCAL DECREASED GLUCOSE; Start 09/28/16 at 23 :00 Linagliptin (Tradjenta) 5 mg DAILY PO Last administered on 10/08/16 08:12; Admin Dose 5 MG; Start 09/29/16 at 09:00 Metoprolol Tartrate (Lopressor) 25 mg BID PO Last administered on 10/08/16 08: 13; Admin Dose 25 MG; Start 09/29/16 at 09:00 Heparin Sodium (Porcine) (Heparin (5000 Units/0.5 ml)) 5,000 unit Q12 SC Last administered on 10/08/16 08:19; Admin Dose 5,000 UNIT; Start 09/29/16 at 09:00 Acetaminophen/ Hydrocodone Bitart ([place] (5/325)) 1 tab Q6H PRN PO PAIN Last administered on 10/07/16 21:32; Admin Dose 1 TAB; Start 09/28/16 at 23:00 Acetaminophen/ Hydrocodone Bitart ([place] (5/325)) 2 tab Q6H PRN PO PAIN Last administered on 10/04/16 08:33; Admin Dose 2 TAB; Start 09/28/16 at 23:00; Status Future Hold Famotidine (Pepcid) 40 mg QHS PO Last administered on 10/07/16 21:29; Admin Dose 40 MG; Start 09/29/16 at 21:00 Fenofibrate (Tricor) 48 mg QAM PO Last administered on 10/08/16 08:13; Admin Dose 48 MG; Start 09/29/16 at 09:00 Folic Acid (Folic Acid) 1 mg BID PO Last administered on 10/08/16 08:13; Admin Dose 1 MG; Start 09/29/16 at 09:00 Eye Lubricant (Artificial Tears Oph) 2 drop Q2H PRN BOTH EYES DRY EYES; Start 09/28/16 at 23:30 Atorvastatin Calcium (Lipitor) 40 mg DAILY@21 PO Last administered on 21:29; Admin Dose 40 MG; Start 09/29/16 at 21:00 Docusate Sodium (Colace) 100 mg Q12H PRN PO CONSTIPATION; Start 09/28/16 at 23: 30 Epoetin César (Epogen (Esrd)) 10,000 units MoWeFr@17 SC Last administered on 17:42; Admin Dose 10,000 UNITS; Start 09/30/16 at 17:00 Docusate Sodium (Colace) 100 mg BID PO Last administered on 10/08/16 08:13; Admin Dose 100 MG; Start 09/29/16 at 09:00 Senna (Senokot) 1 tab HS PO Last administered on 10/07/16 21:29; Admin Dose 1 TAB; Start 09/29/16 at 21:00 Bisacodyl (Dulcolax Supp) 10 mg DAILY PRN [place] CONSTIPATION; Start 09/29/16 at 05 :30 Magnesium Hydroxide (Milk Of Mag) 30 ml BID PRN PO CONSTIPATION Last administered on 10/04/16 08:33; Admin Dose 30 ML; Start 09/29/16 at 05:30 Gabapentin (Neurontin) 100 mg TID PO Last administered on 10/08/16 08:15; Admin Dose 100 MG; Start 10/04/16 at 13:00 Warfarin Sodium (Coumadin) 4 mg DAILY@17 PO ; Start 10/14/16 at 17:00 JENNY MOTT Oct 08, 2016 09:58
[2016-10-08 10:34] VITALS: BP 101/52; RESP 18
--- NOTE | 2016-10-08 12:04 | CONS ---
Date/Time of Note Date/Time of Note DATE: 10/08/16 TIME: 12:01 Assessment/Plan Assessment/Plan Chief Complaint/Hosp Course 1. End-stage renal disease on maintenance hemodialysis Monday. The patient is next due for dialysis in 2 days . 2. Cervical vertebrae fracture with rigid brace on neck . She is doing well . 3. Anemia of chronic disease Problems: Consultation Date/Type/Reason Admit Date/Time Sep 28, 2016 at 22:05 Type of Consultation: renal 24 HR Interval Summary Free Text/Dictation She is sitting up in a wheelchair in the activity room . She has no complaints . Constitutional: improved, no complaints Exam/Review of Systems Vital Signs Vitals Vital Signs Date Time Temp Pulse Resp B/P Pulse Ox O2 Delivery O2 Flow Rate FiO2 10/08/16 10:34 18 101/52 10/08/16 08:00 Nasal Cannula 2.0 10/08/16 07:30 97.8 70 99 10/07/16 20:35 21 Intake and Output 10/07/16 10/07/16 10/08/16 15:00 23:00 07:00 Intake Total 720 ml 860 ml 200 ml Output Total 200 ml 2500 ml Balance 520 ml -1640 ml 200 ml Exam Constitutional: alert, obese, oriented Respiratory: clear to auscultation, normal air movement Cardiovascular: edema, regular rate and rhythm Gastrointestinal: soft Results Result Diagram: 10/07/16 0600 10/07/16 0600 Results 24 hrs Laboratory Tests Test 10/07/16 12:10 10/07/16 17:06 10/07/16 21:41 10/08/16 07:46 Bedside Glucose 109 116 108 80 Medications Medications Current Medications Sodium Biphosphate/ Sodium Phosphate (Fleet Enema) 133 ml DAILY PRN [place] CONSTIPATION; Start 09/28/16 at 23:00 Tramadol HCl (Ultram) 50 mg Q8H PRN PO PAIN Last administered on 10/07/16 22: 45; Admin Dose 50 MG; Start 09/28/16 at 23:00 Prednisone (Prednisone) 1 mg QHS PO Last administered on 10/07/16 21:29; Admin Dose 1 MG; Start 09/29/16 at 21:00 Prednisone (Prednisone) 4 mg DAILY PO Last administered on 10/08/16 08:15; Admin Dose 4 MG; Start 09/29/16 at 09:00 Salmeterol Xinafoate/ Fluticasone (Advair 250/50 Diskus) 1 inh BID INH Last administered on 10/08/16 08:12; Admin Dose 1 INH; Start 09/29/16 at 09:00 Diagnostic Test (Pha) (Accu-Chek) 1 ea 02 XX ; Start 09/29/16 at 02:00 Miscellaneous Information 1 ea NOTE XX ; Start 09/28/16 at 23:00 Glucose (Glutose) 15 gm Q15M PRN PO DECREASED GLUCOSE; Start 09/28/16 at 23:00 Glucose (Glutose) 22.5 gm Q15M PRN PO DECREASED GLUCOSE; Start 09/28/16 at 23: 00 Dextrose (D50w Syringe) 25 ml Q15M PRN IV DECREASED GLUCOSE; Start 09/28/16 at 23:00 Dextrose (D50w Syringe) 50 ml Q15M PRN IV DECREASED GLUCOSE; Start 09/28/16 at 23:00 Glucagon (Glucagen) 1 mg Q15M PRN IM DECREASED GLUCOSE; Start 09/28/16 at 23:00 Glucose (Glutose) 15 gm Q15M PRN BUCCAL DECREASED GLUCOSE; Start 09/28/16 at 23 :00 Linagliptin (Tradjenta) 5 mg DAILY PO Last administered on 10/08/16 08:12; Admin Dose 5 MG; Start 09/29/16 at 09:00 Metoprolol Tartrate (Lopressor) 25 mg BID PO Last administered on 10/08/16 08: 13; Admin Dose 25 MG; Start 09/29/16 at 09:00 Heparin Sodium (Porcine) (Heparin (5000 Units/0.5 ml)) 5,000 unit Q12 SC Last administered on 10/08/16 08:19; Admin Dose 5,000 UNIT; Start 09/29/16 at 09:00 Acetaminophen/ Hydrocodone Bitart ([place] (5/325)) 1 tab Q6H PRN PO PAIN Last administered on 10/07/16 21:32; Admin Dose 1 TAB; Start 09/28/16 at 23:00 Acetaminophen/ Hydrocodone Bitart ([place] (5/325)) 2 tab Q6H PRN PO PAIN Last administered on 10/04/16 08:33; Admin Dose 2 TAB; Start 09/28/16 at 23:00; Status Future Hold Famotidine (Pepcid) 40 mg QHS PO Last administered on 10/07/16 21:29; Admin Dose 40 MG; Start 09/29/16 at 21:00 Fenofibrate (Tricor) 48 mg QAM PO Last administered on 10/08/16 08:13; Admin Dose 48 MG; Start 09/29/16 at 09:00 Folic Acid (Folic Acid) 1 mg BID PO Last administered on 10/08/16 08:13; Admin Dose 1 MG; Start 09/29/16 at 09:00 Eye Lubricant (Artificial Tears Oph) 2 drop Q2H PRN BOTH EYES DRY EYES; Start 09/28/16 at 23:30 Atorvastatin Calcium (Lipitor) 40 mg DAILY@21 PO Last administered on 21:29; Admin Dose 40 MG; Start 09/29/16 at 21:00 Docusate Sodium (Colace) 100 mg Q12H PRN PO CONSTIPATION; Start 09/28/16 at 23: 30 Epoetin César (Epogen (Esrd)) 10,000 units MoWeFr@17 SC Last administered on 17:42; Admin Dose 10,000 UNITS; Start 09/30/16 at 17:00 Docusate Sodium (Colace) 100 mg BID PO Last administered on 10/08/16 08:13; Admin Dose 100 MG; Start 09/29/16 at 09:00 Senna (Senokot) 1 tab HS PO Last administered on 10/07/16 21:29; Admin Dose 1 TAB; Start 09/29/16 at 21:00 Bisacodyl (Dulcolax Supp) 10 mg DAILY PRN [place] CONSTIPATION; Start 09/29/16 at 05 :30 Magnesium Hydroxide (Milk Of Mag) 30 ml BID PRN PO CONSTIPATION Last administered on 10/04/16 08:33; Admin Dose 30 ML; Start 09/29/16 at 05:30 Gabapentin (Neurontin) 100 mg TID PO Last administered on 10/08/16 08:15; Admin Dose 100 MG; Start 10/04/16 at 13:00 Warfarin Sodium (Coumadin) 4 mg DAILY@17 PO ; Start 10/14/16 at 17:00 FARIDA BARRERA MD Oct 08, 2016 12:04
[2016-10-08] MEDS: HYDROCODONE/APAP (5/325) TAB PO PRN ×2 (14:00→21:47)
[2016-10-08 20:00] VITALS: BP 115/56; RESP 18
[2016-10-08] MEDS: ATORVASTATIN 40 MG TAB PO SCH (21:46)
[2016-10-08] MEDS: FAMOTIDINE 20 MG TAB PO SCH (21:47)
[2016-10-08] MEDS: SENNA TAB PO SCH (21:47)
[2016-10-08] MEDS: ZOLPIDEM 5 MG TAB PO PRN (23:46)
[2016-10-09] MEDS: ALBUTEROL/IPRATROPIUM (NEB) 3 ML AMP HHN SCH ×2 (01:00→05:00)
[2016-10-09] MEDS: ACCUCHECK AT 2AM (Patients on SS coverage) XX SCH (02:00)
[2016-10-09] MEDS: Insulin NOVOLOG SS MILD Algorithm (SS with meals and bedtime) SC SCH ×4 (07:35→21:00)
[2016-10-09 08:01] VITALS: BP 146/74; RESP 18
[2016-10-09] MEDS: predniSONE 1 MG TAB PO SCH ×3 (08:15→20:13)
[2016-10-09] MEDS: SEVELAMER CARBONATE 0.8 GM PKT PO SCH ×3 (08:15→17:26)
[2016-10-09] MEDS: HEPARIN 5,000 UNIT/0.5 ML VIAL SC SCH ×2 (08:16→20:15)
[2016-10-09] MEDS: FENOFIBRATE 48 MG TAB PO SCH (08:16)
[2016-10-09] MEDS: METOPROLOL 25 MG TAB PO SCH ×2 (08:16→20:12)
[2016-10-09] MEDS: DOCUSATE SODIUM 100 MG CAP PO SCH ×2 (08:16→21:00)
[2016-10-09] MEDS: LINAGLIPTIN 5 MG TABLET PO SCH (08:16)
[2016-10-09] MEDS: GABAPENTIN 100 MG CAP PO SCH ×3 (08:16→20:12)
[2016-10-09] MEDS: FOLIC ACID 1 MG TAB PO SCH ×2 (08:18→20:13)
[2016-10-09] MEDS: SALMETEROL/FLUTICASONE 250/50 INHA INH SCH ×2 (08:20→20:13)
--- NOTE | 2016-10-09 10:14 | PN ---
Date/Time of Note Date/Time of Note DATE: 10/09/16 TIME: 10:13 Assessment/Plan VTE Prophylaxis VTE Prophylaxis Intervention: heparin Lines/Catheters IV Catheter Type (from Nrsg): Saline Lock Urinary Cath still in place: No Assessment/Plan Assessment/Plan 1. Status post fall with type II/III C2 fracture and Blunt head trauma, with impaired mobility/gait/ADLs/cognition. Continue nonoperative treatment per neurosurgery, hard cervical collar. Continue PT/OT/ST. Gait improving now min assist to CGA, up to 150ft. Gait slow paced with decreased stride. Continue to work on improving gait mechanics. 2. Acute pain syndrome secondary to above. Pain controlled with prn tramadol/ norco. Continue to monitor and adjust as needed. 3. End-stage renal disease. On dialysis per nephrology. 4. Dysphagia. Continue modified diet per ST. MBSS pending tomorrow. 5. CAD status post stent. Continue medical management. 6. Sarcoidosis. Continue prednisone per internal medicine. 7. Diabetes mellitus type 2 with diabetic polyneuropathy. Controlled. Continue current management. 8. Hypertension. BP controlled. Continue current management. 9. Chronic atrial fibrillation. Continue medical management per internal medicine/cardiology. 10. COPD. Stable. Continue breathing treatments. 11. Anemia of chronic disease. On epogen per nephrology. Monitor hemoglobin/ hematocrit, stable on latest labs. Subjective 24 Hr Interval Summary Free Text/Dictation Rehab progress note Subjective: No acute complaints. Mild neck pain without acute changes. ROS: Denies cough, no chills, no headache, no abdominal pain, no nausea or vomiting, no shortness of breath, denies constipation. Exam/Review of Systems Vital Signs Vitals Vital Signs Date Time Temp Pulse Resp B/P Pulse Ox O2 Delivery O2 Flow Rate FiO2 10/09/16 08:01 98.6 76 18 146/74 98 10/08/16 08:00 Nasal Cannula 2.0 10/07/16 20:35 21 Intake and Output 10/08/16 10/08/16 10/09/16 15:00 23:00 07:00 Intake Total 1380 ml Output Total 1 ml Balance 1379 ml Exam General: Awake, alert, no acute distress CV: Regular rate, s1s2 audible Neck: Hard cervical collar in place Lungs: Clear to auscultation, no wheezing Abdomen soft, nontender Extremities without cyanosis, +LE edema. Neuro: No new sensory changes. Antigravity strength BLE. Results Result Diagram: 10/07/16 0600 10/07/16 0600 Results 24 hrs Laboratory Tests Test 10/08/16 12:05 10/08/16 17:20 10/08/16 21:50 10/09/16 07:57 Bedside Glucose 84 107 106 90 Medications Medications Current Medications Sodium Biphosphate/ Sodium Phosphate (Fleet Enema) 133 ml DAILY PRN [place] CONSTIPATION; Start 09/28/16 at 23:00 Tramadol HCl (Ultram) 50 mg Q8H PRN PO PAIN Last administered on 10/07/16 22: 45; Admin Dose 50 MG; Start 09/28/16 at 23:00 Prednisone (Prednisone) 1 mg QHS PO Last administered on 10/08/16 21:47; Admin Dose 1 MG; Start 09/29/16 at 21:00 Prednisone (Prednisone) 4 mg DAILY PO Last administered on 10/09/16 08:15; Admin Dose 4 MG; Start 09/29/16 at 09:00 Salmeterol Xinafoate/ Fluticasone (Advair 250/50 Diskus) 1 inh BID INH Last administered on 10/09/16 08:20; Admin Dose 1 INH; Start 09/29/16 at 09:00 Diagnostic Test (Pha) (Accu-Chek) 1 ea 02 XX ; Start 09/29/16 at 02:00 Miscellaneous Information 1 ea NOTE XX ; Start 09/28/16 at 23:00 Glucose (Glutose) 15 gm Q15M PRN PO DECREASED GLUCOSE; Start 09/28/16 at 23:00 Glucose (Glutose) 22.5 gm Q15M PRN PO DECREASED GLUCOSE; Start 09/28/16 at 23: 00 Dextrose (D50w Syringe) 25 ml Q15M PRN IV DECREASED GLUCOSE; Start 09/28/16 at 23:00 Dextrose (D50w Syringe) 50 ml Q15M PRN IV DECREASED GLUCOSE; Start 09/28/16 at 23:00 Glucagon (Glucagen) 1 mg Q15M PRN IM DECREASED GLUCOSE; Start 09/28/16 at 23:00 Glucose (Glutose) 15 gm Q15M PRN BUCCAL DECREASED GLUCOSE; Start 09/28/16 at 23 :00 Linagliptin (Tradjenta) 5 mg DAILY PO Last administered on 10/09/16 08:16; Admin Dose 5 MG; Start 09/29/16 at 09:00 Metoprolol Tartrate (Lopressor) 25 mg BID PO Last administered on 10/09/16 08: 16; Admin Dose 25 MG; Start 09/29/16 at 09:00 Heparin Sodium (Porcine) (Heparin (5000 Units/0.5 ml)) 5,000 unit Q12 SC Last administered on 10/09/16 08:16; Admin Dose 5,000 UNIT; Start 09/29/16 at 09:00 Acetaminophen/ Hydrocodone Bitart ([place] (5/325)) 1 tab Q6H PRN PO PAIN Last administered on 10/08/16 21:47; Admin Dose 1 TAB; Start 09/28/16 at 23:00 Acetaminophen/ Hydrocodone Bitart ([place] (5/325)) 2 tab Q6H PRN PO PAIN Last administered on 10/04/16 08:33; Admin Dose 2 TAB; Start 09/28/16 at 23:00; Status Future Hold Famotidine (Pepcid) 40 mg QHS PO Last administered on 10/08/16 21:47; Admin Dose 40 MG; Start 09/29/16 at 21:00 Fenofibrate (Tricor) 48 mg QAM PO Last administered on 10/09/16 08:16; Admin Dose 48 MG; Start 09/29/16 at 09:00 Folic Acid (Folic Acid) 1 mg BID PO Last administered on 10/09/16 08:18; Admin Dose 1 MG; Start 09/29/16 at 09:00 Eye Lubricant (Artificial Tears Oph) 2 drop Q2H PRN BOTH EYES DRY EYES; Start 09/28/16 at 23:30 Atorvastatin Calcium (Lipitor) 40 mg DAILY@21 PO Last administered on 21:46; Admin Dose 40 MG; Start 09/29/16 at 21:00 Docusate Sodium (Colace) 100 mg Q12H PRN PO CONSTIPATION; Start 09/28/16 at 23: 30 Epoetin César (Epogen (Esrd)) 10,000 units MoWeFr@17 SC Last administered on 17:42; Admin Dose 10,000 UNITS; Start 09/30/16 at 17:00 Docusate Sodium (Colace) 100 mg BID PO Last administered on 10/09/16 08:16; Admin Dose 100 MG; Start 09/29/16 at 09:00 Senna (Senokot) 1 tab HS PO Last administered on 10/08/16 21:47; Admin Dose 1 TAB; Start 09/29/16 at 21:00 Bisacodyl (Dulcolax Supp) 10 mg DAILY PRN [place] CONSTIPATION; Start 09/29/16 at 05 :30 Magnesium Hydroxide (Milk Of Mag) 30 ml BID PRN PO CONSTIPATION Last administered on 10/04/16 08:33; Admin Dose 30 ML; Start 09/29/16 at 05:30 Gabapentin (Neurontin) 100 mg TID PO Last administered on 10/09/16 08:16; Admin Dose 100 MG; Start 10/04/16 at 13:00 Warfarin Sodium (Coumadin) 4 mg DAILY@17 PO ; Start 10/14/16 at 17:00 JENNY MOTT Oct 09, 2016 10:14
[2016-10-09] MEDS: HYDROCODONE/APAP (5/325) TAB PO PRN ×2 (11:40→20:21)
[2016-10-09] MEDS ORDERED: ALBUTEROL/IPRATROPIUM (NEB) 3 ML AMP HHN PRN (13:00)
--- NOTE | 2016-10-09 13:02 | CONS ---
Date/Time of Note Date/Time of Note DATE: 10/09/16 TIME: 12:59 Assessment/Plan Assessment/Plan Chief Complaint/Hosp Course 1. End-stage renal disease on maintenance hemodialysis Monday. I will order hemodialysis for tomorrow . 2. Cervical vertebrae fracture with rigid brace on neck . She is doing well . 3. Anemia of chronic disease 4. Continue current medication and rehabilitation program Problems: Consultation Date/Type/Reason Admit Date/Time Sep 28, 2016 at 22:05 Type of Consultation: renal 24 HR Interval Summary Free Text/Dictation She is sitting up eating lunch . No complaints . Constitutional: improved, no complaints Exam/Review of Systems Vital Signs Vitals Vital Signs Date Time Temp Pulse Resp B/P Pulse Ox O2 Delivery O2 Flow Rate FiO2 10/09/16 08:01 98.6 76 18 146/74 98 10/08/16 08:00 Nasal Cannula 2.0 10/07/16 20:35 21 Intake and Output 10/08/16 10/08/16 10/09/16 15:00 23:00 07:00 Intake Total 1380 ml Output Total 1 ml Balance 1379 ml Exam Constitutional: alert, frail, oriented Respiratory: clear to auscultation, normal air movement Cardiovascular: edema, irregular rhythm Gastrointestinal: non-tender, soft Extremities: edema Results Result Diagram: 10/07/16 0600 10/07/16 0600 Results 24 hrs Laboratory Tests Test 10/08/16 17:20 10/08/16 21:50 10/09/16 07:57 10/09/16 12:02 Bedside Glucose 107 106 90 111 Medications Medications Current Medications Sodium Biphosphate/ Sodium Phosphate (Fleet Enema) 133 ml DAILY PRN [place] CONSTIPATION; Start 09/28/16 at 23:00 Tramadol HCl (Ultram) 50 mg Q8H PRN PO PAIN Last administered on 10/07/16 22: 45; Admin Dose 50 MG; Start 09/28/16 at 23:00 Prednisone (Prednisone) 1 mg QHS PO Last administered on 10/08/16 21:47; Admin Dose 1 MG; Start 09/29/16 at 21:00 Prednisone (Prednisone) 4 mg DAILY PO Last administered on 10/09/16 08:15; Admin Dose 4 MG; Start 09/29/16 at 09:00 Salmeterol Xinafoate/ Fluticasone (Advair 250/50 Diskus) 1 inh BID INH Last administered on 10/09/16 08:20; Admin Dose 1 INH; Start 09/29/16 at 09:00 Diagnostic Test (Pha) (Accu-Chek) 1 ea 02 XX ; Start 09/29/16 at 02:00 Miscellaneous Information 1 ea NOTE XX ; Start 09/28/16 at 23:00 Glucose (Glutose) 15 gm Q15M PRN PO DECREASED GLUCOSE; Start 09/28/16 at 23:00 Glucose (Glutose) 22.5 gm Q15M PRN PO DECREASED GLUCOSE; Start 09/28/16 at 23: 00 Dextrose (D50w Syringe) 25 ml Q15M PRN IV DECREASED GLUCOSE; Start 09/28/16 at 23:00 Dextrose (D50w Syringe) 50 ml Q15M PRN IV DECREASED GLUCOSE; Start 09/28/16 at 23:00 Glucagon (Glucagen) 1 mg Q15M PRN IM DECREASED GLUCOSE; Start 09/28/16 at 23:00 Glucose (Glutose) 15 gm Q15M PRN BUCCAL DECREASED GLUCOSE; Start 09/28/16 at 23 :00 Linagliptin (Tradjenta) 5 mg DAILY PO Last administered on 10/09/16 08:16; Admin Dose 5 MG; Start 09/29/16 at 09:00 Metoprolol Tartrate (Lopressor) 25 mg BID PO Last administered on 10/09/16 08: 16; Admin Dose 25 MG; Start 09/29/16 at 09:00 Heparin Sodium (Porcine) (Heparin (5000 Units/0.5 ml)) 5,000 unit Q12 SC Last administered on 10/09/16 08:16; Admin Dose 5,000 UNIT; Start 09/29/16 at 09:00 Acetaminophen/ Hydrocodone Bitart ([place] (5/325)) 1 tab Q6H PRN PO PAIN Last administered on 10/09/16 11:40; Admin Dose 1 TAB; Start 09/28/16 at 23:00 Acetaminophen/ Hydrocodone Bitart ([place] (5/325)) 2 tab Q6H PRN PO PAIN Last administered on 10/04/16 08:33; Admin Dose 2 TAB; Start 09/28/16 at 23:00; Status Future Hold Famotidine (Pepcid) 40 mg QHS PO Last administered on 10/08/16 21:47; Admin Dose 40 MG; Start 09/29/16 at 21:00 Fenofibrate (Tricor) 48 mg QAM PO Last administered on 10/09/16 08:16; Admin Dose 48 MG; Start 09/29/16 at 09:00 Folic Acid (Folic Acid) 1 mg BID PO Last administered on 10/09/16 08:18; Admin Dose 1 MG; Start 09/29/16 at 09:00 Eye Lubricant (Artificial Tears Oph) 2 drop Q2H PRN BOTH EYES DRY EYES; Start 09/28/16 at 23:30 Atorvastatin Calcium (Lipitor) 40 mg DAILY@21 PO Last administered on 21:46; Admin Dose 40 MG; Start 09/29/16 at 21:00 Docusate Sodium (Colace) 100 mg Q12H PRN PO CONSTIPATION; Start 09/28/16 at 23: 30 Epoetin César (Epogen (Esrd)) 10,000 units MoWeFr@17 SC Last administered on 17:42; Admin Dose 10,000 UNITS; Start 09/30/16 at 17:00 Docusate Sodium (Colace) 100 mg BID PO Last administered on 10/09/16 08:16; Admin Dose 100 MG; Start 09/29/16 at 09:00 Senna (Senokot) 1 tab HS PO Last administered on 10/08/16 21:47; Admin Dose 1 TAB; Start 09/29/16 at 21:00 Bisacodyl (Dulcolax Supp) 10 mg DAILY PRN [place] CONSTIPATION; Start 09/29/16 at 05 :30 Magnesium Hydroxide (Milk Of Mag) 30 ml BID PRN PO CONSTIPATION Last administered on 10/04/16 08:33; Admin Dose 30 ML; Start 09/29/16 at 05:30 Gabapentin (Neurontin) 100 mg TID PO Last administered on 10/09/16 12:35; Admin Dose 100 MG; Start 10/04/16 at 13:00 Warfarin Sodium (Coumadin) 4 mg DAILY@17 PO ; Start 10/14/16 at 17:00 FARIDA BARRERA MD Oct 09, 2016 13:02
[2016-10-09] MEDS: ATORVASTATIN 40 MG TAB PO SCH (20:13)
[2016-10-09] MEDS: FAMOTIDINE 20 MG TAB PO SCH (20:20)
[2016-10-09 20:28] VITALS: BP 133/60; RESP 18
[2016-10-09] MEDS: SENNA TAB PO SCH (21:00)
[2016-10-10] VITALS (9 sets, daily range): BP systolic 103–141; BP diastolic 43–66; PULSE 64–70; RESP 18–20
[2016-10-10] MEDS: ZOLPIDEM 5 MG TAB PO PRN ×3 (00:57→22:44)
[2016-10-10] MEDS: ACCUCHECK AT 2AM (Patients on SS coverage) XX SCH (02:00)
[2016-10-10] MEDS: Insulin NOVOLOG SS MILD Algorithm (SS with meals and bedtime) SC SCH (07:35)
--- NOTE | 2016-10-10 07:47 | CONS ---
Date/Time of Note Date/Time of Note DATE: 10/10/16 TIME: 07:44 Assessment/Plan Assessment/Plan Problems: (1) ESRD (end stage renal disease) on dialysis Status: Chronic Comment: for HD today.. well tolerated (2) Dens fracture Status: Acute Comment: in hard collar... neuro stable (3) Atrial fibrillation Status: Chronic Comment: rate controlled Qualifiers: Atrial fibrillation type: chronic Qualified Code: I48.2 - Chronic atrial fibrillation (4) Diabetes mellitus type 2 in obese Status: Chronic Comment: sugars great for > 3 weeks.. limit accuchecks now Consultation Date/Type/Reason Admit Date/Time Sep 28, 2016 at 22:05 Type of Consultation: renal 24 HR Interval Summary Free Text/Dictation doing great... looking forward to PT Exam/Review of Systems Vital Signs Vitals Vital Signs Date Time Temp Pulse Resp B/P Pulse Ox O2 Delivery O2 Flow Rate FiO2 10/09/16 20:28 98.0 77 18 133/60 97 10/08/16 08:00 Nasal Cannula 2.0 10/07/16 20:35 21 Intake and Output 10/09/16 10/09/16 10/10/16 15:00 23:00 07:00 Intake Total 1180 ml Output Total 1 ml Balance 1179 ml Exam Constitutional: alert Psych: no complaints Neck: other (in hard collar) Respiratory: clear to auscultation Cardiovascular: irregular rhythm Extremities: normal pulses (fxn AVF RUE) Results Result Diagram: 10/07/16 0600 10/07/16 0600 Results 24 hrs Laboratory Tests Test 10/09/16 07:57 10/09/16 12:02 10/09/16 17:25 10/09/16 20:09 Bedside Glucose 90 111 136 119 Medications Medications Current Medications Sodium Biphosphate/ Sodium Phosphate (Fleet Enema) 133 ml DAILY PRN [place] CONSTIPATION; Start 09/28/16 at 23:00 Tramadol HCl (Ultram) 50 mg Q8H PRN PO PAIN Last administered on 10/07/16 22: 45; Admin Dose 50 MG; Start 09/28/16 at 23:00 Prednisone (Prednisone) 1 mg QHS PO Last administered on 10/09/16 20:13; Admin Dose 1 MG; Start 09/29/16 at 21:00 Prednisone (Prednisone) 4 mg DAILY PO Last administered on 10/09/16 08:15; Admin Dose 4 MG; Start 09/29/16 at 09:00 Salmeterol Xinafoate/ Fluticasone (Advair 250/50 Diskus) 1 inh BID INH Last administered on 10/09/16 20:13; Admin Dose 1 INH; Start 09/29/16 at 09:00 Diagnostic Test (Pha) (Accu-Chek) 1 ea 02 XX ; Start 09/29/16 at 02:00 Miscellaneous Information 1 ea NOTE XX ; Start 09/28/16 at 23:00 Glucose (Glutose) 15 gm Q15M PRN PO DECREASED GLUCOSE; Start 09/28/16 at 23:00 Glucose (Glutose) 22.5 gm Q15M PRN PO DECREASED GLUCOSE; Start 09/28/16 at 23: 00 Dextrose (D50w Syringe) 25 ml Q15M PRN IV DECREASED GLUCOSE; Start 09/28/16 at 23:00 Dextrose (D50w Syringe) 50 ml Q15M PRN IV DECREASED GLUCOSE; Start 09/28/16 at 23:00 Glucagon (Glucagen) 1 mg Q15M PRN IM DECREASED GLUCOSE; Start 09/28/16 at 23:00 Glucose (Glutose) 15 gm Q15M PRN BUCCAL DECREASED GLUCOSE; Start 09/28/16 at 23 :00 Linagliptin (Tradjenta) 5 mg DAILY PO Last administered on 10/09/16 08:16; Admin Dose 5 MG; Start 09/29/16 at 09:00 Metoprolol Tartrate (Lopressor) 25 mg BID PO Last administered on 10/09/16 20: 12; Admin Dose 25 MG; Start 09/29/16 at 09:00 Heparin Sodium (Porcine) (Heparin (5000 Units/0.5 ml)) 5,000 unit Q12 SC Last administered on 10/09/16 20:15; Admin Dose 5,000 UNIT; Start 09/29/16 at 09:00 Acetaminophen/ Hydrocodone Bitart ([place] (5/325)) 1 tab Q6H PRN PO PAIN Last administered on 10/09/16 20:21; Admin Dose 1 TAB; Start 09/28/16 at 23:00 Acetaminophen/ Hydrocodone Bitart ([place] (5/325)) 2 tab Q6H PRN PO PAIN Last administered on 10/04/16 08:33; Admin Dose 2 TAB; Start 09/28/16 at 23:00; Status Future Hold Famotidine (Pepcid) 40 mg QHS PO Last administered on 10/09/16 20:20; Admin Dose 40 MG; Start 09/29/16 at 21:00 Fenofibrate (Tricor) 48 mg QAM PO Last administered on 10/09/16 08:16; Admin Dose 48 MG; Start 09/29/16 at 09:00 Folic Acid (Folic Acid) 1 mg BID PO Last administered on 10/09/16 20:13; Admin Dose 1 MG; Start 09/29/16 at 09:00 Eye Lubricant (Artificial Tears Oph) 2 drop Q2H PRN BOTH EYES DRY EYES; Start 09/28/16 at 23:30 Atorvastatin Calcium (Lipitor) 40 mg DAILY@21 PO Last administered on 20:13; Admin Dose 40 MG; Start 09/29/16 at 21:00 Docusate Sodium (Colace) 100 mg Q12H PRN PO CONSTIPATION; Start 09/28/16 at 23: 30 Epoetin César (Epogen (Esrd)) 10,000 units MoWeFr@17 SC Last administered on 17:42; Admin Dose 10,000 UNITS; Start 09/30/16 at 17:00 Docusate Sodium (Colace) 100 mg BID PO Last administered on 10/09/16 08:16; Admin Dose 100 MG; Start 09/29/16 at 09:00 Senna (Senokot) 1 tab HS PO Last administered on 10/08/16 21:47; Admin Dose 1 TAB; Start 09/29/16 at 21:00 Bisacodyl (Dulcolax Supp) 10 mg DAILY PRN [place] CONSTIPATION; Start 09/29/16 at 05 :30 Magnesium Hydroxide (Milk Of Mag) 30 ml BID PRN PO CONSTIPATION Last administered on 10/04/16 08:33; Admin Dose 30 ML; Start 09/29/16 at 05:30 Gabapentin (Neurontin) 100 mg TID PO Last administered on 10/09/16 20:12; Admin Dose 100 MG; Start 10/04/16 at 13:00 Warfarin Sodium (Coumadin) 4 mg DAILY@17 PO ; Start 10/14/16 at 17:00 NICO HAY MD Oct 10, 2016 07:47
[2016-10-10] MEDS: SEVELAMER CARBONATE 0.8 GM PKT PO SCH ×3 (08:57→17:36)
[2016-10-10] MEDS: SALMETEROL/FLUTICASONE 250/50 INHA INH SCH ×2 (08:57→21:00)
[2016-10-10] MEDS: DOCUSATE SODIUM 100 MG CAP PO SCH ×3 (08:57→21:20)
[2016-10-10] MEDS: FOLIC ACID 1 MG TAB PO SCH ×2 (08:57→21:20)
[2016-10-10] MEDS: predniSONE 1 MG TAB PO SCH ×3 (08:58→21:20)
[2016-10-10] MEDS: METOPROLOL 25 MG TAB PO SCH ×2 (08:58→21:00)
[2016-10-10] MEDS: GABAPENTIN 100 MG CAP PO SCH ×3 (08:58→21:20)
[2016-10-10] MEDS: LINAGLIPTIN 5 MG TABLET PO SCH (08:58)
[2016-10-10] MEDS: FENOFIBRATE 48 MG TAB PO SCH (08:58)
[2016-10-10] MEDS: HEPARIN 5,000 UNIT/0.5 ML VIAL SC SCH ×2 (09:00→22:06)
[2016-10-10] MEDS: HYDROCODONE/APAP (5/325) TAB PO PRN ×2 (10:20→21:19)
--- NOTE | 2016-10-10 12:13 | CONS ---
Date/Time of Note Date/Time of Note DATE: 10/10/16 TIME: 12:11 Consult Date/Type/Reason Admit Date/Time Sep 28, 2016 at 22:05 Type of Consultation: renal Objective Vital Signs Date Time Temp Pulse Resp B/P Pulse Ox O2 Delivery O2 Flow Rate FiO2 10/10/16 07:30 98.8 20 141/66 97 10/09/16 20:28 77 10/08/16 08:00 Nasal Cannula 2.0 10/07/16 20:35 21 Intake and Output 10/09/16 10/09/16 10/10/16 15:00 23:00 07:00 Intake Total 1180 ml Output Total 1 ml Balance 1179 ml INTERDISCIPLINARY TEAM CONFERENCE BOWEL- Cont BLADDER-Cont SKIN- improving OT- DRESSING-cga BATHING-cga/min TOILETING-cga/min PT- BED MOBILITY-mod TRANSFERS-min/mod AMBULATION-min 100 feet W.C. MOBILITY SPEECH- COGNITION-sba DYPHAGIA-improved A/P- Interdisciplinary team conference held today. Please see interdisciplinary sheet. Working toward d.c. on 10/12 with post discharge follow up of physical therapy, occupational therapy. Results/Medications Result Diagram: 10/07/16 0600 10/07/16 0600 Results 24 hrs Laboratory Tests Test 10/09/16 17:25 10/09/16 20:09 10/10/16 07:53 Bedside Glucose 136 119 90 Medications Current Medications Sodium Biphosphate/ Sodium Phosphate (Fleet Enema) 133 ml DAILY PRN [place] CONSTIPATION; Start 09/28/16 at 23:00 Tramadol HCl (Ultram) 50 mg Q8H PRN PO PAIN Last administered on 10/07/16 22: 45; Admin Dose 50 MG; Start 09/28/16 at 23:00 Prednisone (Prednisone) 1 mg QHS PO Last administered on 10/09/16 20:13; Admin Dose 1 MG; Start 09/29/16 at 21:00 Prednisone (Prednisone) 4 mg DAILY PO Last administered on 10/10/16 08:58; Admin Dose 4 MG; Start 09/29/16 at 09:00 Salmeterol Xinafoate/ Fluticasone (Advair 250/50 Diskus) 1 inh BID INH Last administered on 10/10/16 08:57; Admin Dose 1 INH; Start 09/29/16 at 09:00 Miscellaneous Information 1 ea NOTE XX ; Start 09/28/16 at 23:00 Glucose (Glutose) 15 gm Q15M PRN PO DECREASED GLUCOSE; Start 09/28/16 at 23:00 Glucose (Glutose) 22.5 gm Q15M PRN PO DECREASED GLUCOSE; Start 09/28/16 at 23: 00 Dextrose (D50w Syringe) 25 ml Q15M PRN IV DECREASED GLUCOSE; Start 09/28/16 at 23:00 Dextrose (D50w Syringe) 50 ml Q15M PRN IV DECREASED GLUCOSE; Start 09/28/16 at 23:00 Glucagon (Glucagen) 1 mg Q15M PRN IM DECREASED GLUCOSE; Start 09/28/16 at 23:00 Glucose (Glutose) 15 gm Q15M PRN BUCCAL DECREASED GLUCOSE; Start 09/28/16 at 23 :00 Linagliptin (Tradjenta) 5 mg DAILY PO Last administered on 10/10/16 08:58; Admin Dose 5 MG; Start 09/29/16 at 09:00 Metoprolol Tartrate (Lopressor) 25 mg BID PO Last administered on 10/10/16 08: 58; Admin Dose 25 MG; Start 09/29/16 at 09:00 Heparin Sodium (Porcine) (Heparin (5000 Units/0.5 ml)) 5,000 unit Q12 SC Last administered on 10/10/16 09:00; Admin Dose 5,000 UNIT; Start 09/29/16 at 09:00 Acetaminophen/ Hydrocodone Bitart ([place] (5/325)) 1 tab Q6H PRN PO PAIN Last administered on 10/10/16 10:20; Admin Dose 1 TAB; Start 09/28/16 at 23:00 Acetaminophen/ Hydrocodone Bitart ([place] (5/325)) 2 tab Q6H PRN PO PAIN Last administered on 10/04/16 08:33; Admin Dose 2 TAB; Start 09/28/16 at 23:00; Status Future Hold Famotidine (Pepcid) 40 mg QHS PO Last administered on 10/09/16 20:20; Admin Dose 40 MG; Start 09/29/16 at 21:00 Fenofibrate (Tricor) 48 mg QAM PO Last administered on 10/10/16 08:58; Admin Dose 48 MG; Start 09/29/16 at 09:00 Folic Acid (Folic Acid) 1 mg BID PO Last administered on 10/10/16 08:57; Admin Dose 1 MG; Start 09/29/16 at 09:00 Eye Lubricant (Artificial Tears Oph) 2 drop Q2H PRN BOTH EYES DRY EYES; Start 09/28/16 at 23:30 Atorvastatin Calcium (Lipitor) 40 mg DAILY@21 PO Last administered on 20:13; Admin Dose 40 MG; Start 09/29/16 at 21:00 Docusate Sodium (Colace) 100 mg Q12H PRN PO CONSTIPATION; Start 09/28/16 at 23: 30 Epoetin César (Epogen (Esrd)) 10,000 units MoWeFr@17 SC Last administered on 17:42; Admin Dose 10,000 UNITS; Start 09/30/16 at 17:00 Docusate Sodium (Colace) 100 mg BID PO Last administered on 10/09/16 08:16; Admin Dose 100 MG; Start 09/29/16 at 09:00 Senna (Senokot) 1 tab HS PO Last administered on 10/08/16 21:47; Admin Dose 1 TAB; Start 09/29/16 at 21:00 Bisacodyl (Dulcolax Supp) 10 mg DAILY PRN [place] CONSTIPATION; Start 09/29/16 at 05 :30 Magnesium Hydroxide (Milk Of Mag) 30 ml BID PRN PO CONSTIPATION Last administered on 10/04/16 08:33; Admin Dose 30 ML; Start 09/29/16 at 05:30 Gabapentin (Neurontin) 100 mg TID PO Last administered on 10/10/16 08:58; Admin Dose 100 MG; Start 10/04/16 at 13:00 Warfarin Sodium (Coumadin) 4 mg DAILY@17 PO ; Start 10/14/16 at 17:00 SYDNEY ROGERS MD Oct 10, 2016 12:13
[2016-10-10] MEDS ORDERED: BARIUM SULFATE 135 ML (E-Z HD) PO ONE (13:18)
--- NOTE | 2016-10-10 16:14 | RADRPT ---
PROCEDURE: Video-fluoroscopy swallowing study. CLINICAL INDICATION: Dysphagia. TECHNIQUE: Fluoroscopic guided video swallowing study was done in conjunction with the speech ther apist. The study was confined to the oral, pharyngeal, and cervical phases of the swallowing mechani sm. 1.9 minutes of fluoroscopy time was used. 17 series of images were obtained. COMPARISON: No prior study is available for comparison. FINDINGS: There is penetration with no evidence of aspiration during the exam. IMPRESSION: 1. Penetration with no aspiration during swallowing. 2. Please refer to the speech therapist's recommendations for future feedings. RPTAT: QQ .Mp Fields MD, MD Date Time Electronically viewed and signed by .Mp Fields MD, MD on 10/10/2016 16:14 .R/
[2016-10-10] MEDS: EPOETIN 10000 UNITS/1 ML INJ (ESRD) SC SCH (19:20)
[2016-10-10] MEDS: ATORVASTATIN 40 MG TAB PO SCH (21:19)
[2016-10-10] MEDS: FAMOTIDINE 20 MG TAB PO SCH (21:20)
[2016-10-10] MEDS: SENNA TAB PO SCH (21:21)
[2016-10-11] MEDS: traMADol 50 MG TAB PO PRN ×2 (02:04→11:16)
[2016-10-11] MEDS: ACCU-CHEK XX SCH (07:05)
--- NOTE | 2016-10-11 07:47 | CONS ---
Date/Time of Note Date/Time of Note DATE: 10/11/16 TIME: 07:45 Assessment/Plan Assessment/Plan Problems: (1) Atrial fibrillation Status: Chronic Comment: rate controlled and asx Qualifiers: Atrial fibrillation type: chronic Qualified Code: I48.2 - Chronic atrial fibrillation (2) ESRD (end stage renal disease) on dialysis Status: Chronic Comment: for HD in am (3) Diabetes mellitus type 2 in obese Status: Chronic Comment: perfect w less accuchecks (4) Dens fracture Status: Acute Comment: neuro nl Consultation Date/Type/Reason Admit Date/Time Sep 28, 2016 at 22:05 Type of Consultation: renal 24 HR Interval Summary Free Text/Dictation doing great...home soon Exam/Review of Systems Vital Signs Vitals Vital Signs Date Time Temp Pulse Resp B/P Pulse Ox O2 Delivery O2 Flow Rate FiO2 10/10/16 20:00 98.2 67 18 112/48 94 10/08/16 08:00 Nasal Cannula 2.0 10/07/16 20:35 21 Intake and Output 10/10/16 10/10/16 10/11/16 15:00 23:00 07:00 Intake Total 920 ml Output Total 3300 ml Balance -2380 ml Exam Constitutional: alert, oriented Psych: no complaints Respiratory: clear to auscultation Cardiovascular: irregular rhythm Gastrointestinal: nl liver, spleen Extremities: normal pulses (fxn avf rue) Results Result Diagram: 10/07/16 0600 10/07/16 0600 Results 24 hrs Laboratory Tests Test 10/10/16 07:53 Bedside Glucose 90 Medications Medications Current Medications Sodium Biphosphate/ Sodium Phosphate (Fleet Enema) 133 ml DAILY PRN [place] CONSTIPATION; Start 09/28/16 at 23:00 Tramadol HCl (Ultram) 50 mg Q8H PRN PO PAIN Last administered on 10/11/16 02: 04; Admin Dose 50 MG; Start 09/28/16 at 23:00 Prednisone (Prednisone) 1 mg QHS PO Last administered on 10/10/16 21:20; Admin Dose 1 MG; Start 09/29/16 at 21:00 Prednisone (Prednisone) 4 mg DAILY PO Last administered on 10/10/16 08:58; Admin Dose 4 MG; Start 09/29/16 at 09:00 Salmeterol Xinafoate/ Fluticasone (Advair 250/50 Diskus) 1 inh BID INH Last administered on 10/10/16 21:00; Admin Dose 1 INH; Start 09/29/16 at 09:00 Miscellaneous Information 1 ea NOTE XX ; Start 09/28/16 at 23:00 Glucose (Glutose) 15 gm Q15M PRN PO DECREASED GLUCOSE; Start 09/28/16 at 23:00 Glucose (Glutose) 22.5 gm Q15M PRN PO DECREASED GLUCOSE; Start 09/28/16 at 23: 00 Dextrose (D50w Syringe) 25 ml Q15M PRN IV DECREASED GLUCOSE; Start 09/28/16 at 23:00 Dextrose (D50w Syringe) 50 ml Q15M PRN IV DECREASED GLUCOSE; Start 09/28/16 at 23:00 Glucagon (Glucagen) 1 mg Q15M PRN IM DECREASED GLUCOSE; Start 09/28/16 at 23:00 Glucose (Glutose) 15 gm Q15M PRN BUCCAL DECREASED GLUCOSE; Start 09/28/16 at 23 :00 Linagliptin (Tradjenta) 5 mg DAILY PO Last administered on 10/10/16 08:58; Admin Dose 5 MG; Start 09/29/16 at 09:00 Metoprolol Tartrate (Lopressor) 25 mg BID PO Last administered on 10/10/16 08: 58; Admin Dose 25 MG; Start 09/29/16 at 09:00 Heparin Sodium (Porcine) (Heparin (5000 Units/0.5 ml)) 5,000 unit Q12 SC Last administered on 10/10/16 22:06; Admin Dose 5,000 UNIT; Start 09/29/16 at 09:00 Acetaminophen/ Hydrocodone Bitart ([place] (5/325)) 1 tab Q6H PRN PO PAIN Last administered on 10/10/16 21:19; Admin Dose 1 TAB; Start 09/28/16 at 23:00 Acetaminophen/ Hydrocodone Bitart ([place] (5/325)) 2 tab Q6H PRN PO PAIN Last administered on 10/04/16 08:33; Admin Dose 2 TAB; Start 09/28/16 at 23:00; Status Future Hold Famotidine (Pepcid) 40 mg QHS PO Last administered on 10/10/16 21:20; Admin Dose 40 MG; Start 09/29/16 at 21:00 Fenofibrate (Tricor) 48 mg QAM PO Last administered on 10/10/16 08:58; Admin Dose 48 MG; Start 09/29/16 at 09:00 Folic Acid (Folic Acid) 1 mg BID PO Last administered on 10/10/16 21:20; Admin Dose 1 MG; Start 09/29/16 at 09:00 Eye Lubricant (Artificial Tears Oph) 2 drop Q2H PRN BOTH EYES DRY EYES; Start 09/28/16 at 23:30 Atorvastatin Calcium (Lipitor) 40 mg DAILY@21 PO Last administered on 21:19; Admin Dose 40 MG; Start 09/29/16 at 21:00 Docusate Sodium (Colace) 100 mg Q12H PRN PO CONSTIPATION; Start 09/28/16 at 23: 30 Epoetin César (Epogen (Esrd)) 10,000 units MoWeFr@17 SC Last administered on 19:20; Admin Dose 10,000 UNITS; Start 09/30/16 at 17:00 Docusate Sodium (Colace) 100 mg BID PO Last administered on 10/10/16 21:20; Admin Dose 100 MG; Start 09/29/16 at 09:00 Senna (Senokot) 1 tab HS PO Last administered on 10/10/16 21:21; Admin Dose 1 TAB; Start 09/29/16 at 21:00 Bisacodyl (Dulcolax Supp) 10 mg DAILY PRN [place] CONSTIPATION; Start 09/29/16 at 05 :30 Magnesium Hydroxide (Milk Of Mag) 30 ml BID PRN PO CONSTIPATION Last administered on 10/04/16 08:33; Admin Dose 30 ML; Start 09/29/16 at 05:30 Gabapentin (Neurontin) 100 mg TID PO Last administered on 10/10/16 21:20; Admin Dose 100 MG; Start 10/04/16 at 13:00 Warfarin Sodium (Coumadin) 4 mg DAILY@17 PO ; Start 10/14/16 at 17:00 NICO HAY MD Oct 11, 2016 07:47
[2016-10-11] MEDS: SEVELAMER CARBONATE 0.8 GM PKT PO SCH ×3 (08:36→17:44)
[2016-10-11] MEDS: HYDROCODONE/APAP (5/325) TAB PO PRN ×3 (08:50→23:44)
[2016-10-11] MEDS: GABAPENTIN 100 MG CAP PO SCH ×3 (08:50→20:58)
[2016-10-11] MEDS: FENOFIBRATE 48 MG TAB PO SCH (08:50)
[2016-10-11] MEDS: LINAGLIPTIN 5 MG TABLET PO SCH (08:50)
[2016-10-11] MEDS: DOCUSATE SODIUM 100 MG CAP PO SCH ×2 (08:50→21:00)
[2016-10-11] MEDS: predniSONE 1 MG TAB PO SCH ×3 (08:50→20:58)
[2016-10-11] MEDS: FOLIC ACID 1 MG TAB PO SCH ×2 (08:51→21:00)
[2016-10-11] MEDS: SALMETEROL/FLUTICASONE 250/50 INHA INH SCH ×2 (08:51→21:11)
[2016-10-11] MEDS: METOPROLOL 25 MG TAB PO SCH ×2 (08:51→21:00)
[2016-10-11] MEDS: HEPARIN 5,000 UNIT/0.5 ML VIAL SC SCH ×2 (09:20→21:05)
--- NOTE | 2016-10-11 11:24 | CONS ---
Date/Time of Note Date/Time of Note DATE: 10/11/16 TIME: 11:24 Consult Date/Type/Reason Admit Date/Time Sep 28, 2016 at 22:05 Type of Consultation: renal Subjective in good spirits Objective pulm-cta abd-soft collar in place Vital Signs Date Time Temp Pulse Resp B/P Pulse Ox O2 Delivery O2 Flow Rate FiO2 10/10/16 20:00 98.2 67 18 112/48 94 10/08/16 08:00 Nasal Cannula 2.0 10/07/16 20:35 21 Intake and Output 10/10/16 10/10/16 10/11/16 15:00 23:00 07:00 Intake Total 920 ml Output Total 3300 ml Balance -2380 ml Results/Medications Result Diagram: 10/07/16 0610/07/16 0600 Results 24 hrs Laboratory Tests Test 10/11/16 08:16 Bedside Glucose 85 Medications Current Medications Sodium Biphosphate/ Sodium Phosphate (Fleet Enema) 133 ml DAILY PRN [place] CONSTIPATION; Start 09/28/16 at 23:00 Tramadol HCl (Ultram) 50 mg Q8H PRN PO PAIN Last administered on 10/11/16 11: 16; Admin Dose 50 MG; Start 09/28/16 at 23:00 Prednisone (Prednisone) 1 mg QHS PO Last administered on 10/10/16 21:20; Admin Dose 1 MG; Start 09/29/16 at 21:00 Prednisone (Prednisone) 4 mg DAILY PO Last administered on 10/11/16 08:50; Admin Dose 4 MG; Start 09/29/16 at 09:00 Salmeterol Xinafoate/ Fluticasone (Advair 250/50 Diskus) 1 inh BID INH Last administered on 10/11/16 08:51; Admin Dose 1 INH; Start 09/29/16 at 09:00 Miscellaneous Information 1 ea NOTE XX ; Start 09/28/16 at 23:00 Glucose (Glutose) 15 gm Q15M PRN PO DECREASED GLUCOSE; Start 09/28/16 at 23:00 Glucose (Glutose) 22.5 gm Q15M PRN PO DECREASED GLUCOSE; Start 09/28/16 at 23: 00 Dextrose (D50w Syringe) 25 ml Q15M PRN IV DECREASED GLUCOSE; Start 09/28/16 at 23:00 Dextrose (D50w Syringe) 50 ml Q15M PRN IV DECREASED GLUCOSE; Start 09/28/16 at 23:00 Glucagon (Glucagen) 1 mg Q15M PRN IM DECREASED GLUCOSE; Start 09/28/16 at 23:00 Glucose (Glutose) 15 gm Q15M PRN BUCCAL DECREASED GLUCOSE; Start 09/28/16 at 23 :00 Linagliptin (Tradjenta) 5 mg DAILY PO Last administered on 10/11/16 08:50; Admin Dose 5 MG; Start 09/29/16 at 09:00 Metoprolol Tartrate (Lopressor) 25 mg BID PO Last administered on 10/11/16 08: 51; Admin Dose 25 MG; Start 09/29/16 at 09:00 Heparin Sodium (Porcine) (Heparin (5000 Units/0.5 ml)) 5,000 unit Q12 SC Last administered on 10/11/16 09:20; Admin Dose 5,000 UNIT; Start 09/29/16 at 09:00 Acetaminophen/ Hydrocodone Bitart ([place] (5/325)) 1 tab Q6H PRN PO PAIN Last administered on 10/11/16 08:50; Admin Dose 1 TAB; Start 09/28/16 at 23:00 Acetaminophen/ Hydrocodone Bitart ([place] (5/325)) 2 tab Q6H PRN PO PAIN Last administered on 10/04/16 08:33; Admin Dose 2 TAB; Start 09/28/16 at 23:00; Status Future Hold Famotidine (Pepcid) 40 mg QHS PO Last administered on 10/10/16 21:20; Admin Dose 40 MG; Start 09/29/16 at 21:00 Fenofibrate (Tricor) 48 mg QAM PO Last administered on 10/11/16 08:50; Admin Dose 48 MG; Start 09/29/16 at 09:00 Folic Acid (Folic Acid) 1 mg BID PO Last administered on 10/11/16 08:51; Admin Dose 1 MG; Start 09/29/16 at 09:00 Eye Lubricant (Artificial Tears Oph) 2 drop Q2H PRN BOTH EYES DRY EYES; Start 09/28/16 at 23:30 Atorvastatin Calcium (Lipitor) 40 mg DAILY@21 PO Last administered on 21:19; Admin Dose 40 MG; Start 09/29/16 at 21:00 Docusate Sodium (Colace) 100 mg Q12H PRN PO CONSTIPATION; Start 09/28/16 at 23: 30 Epoetin César (Epogen (Esrd)) 10,000 units MoWeFr@17 SC Last administered on 19:20; Admin Dose 10,000 UNITS; Start 09/30/16 at 17:00 Docusate Sodium (Colace) 100 mg BID PO Last administered on 10/11/16 08:50; Admin Dose 100 MG; Start 09/29/16 at 09:00 Senna (Senokot) 1 tab HS PO Last administered on 10/10/16 21:21; Admin Dose 1 TAB; Start 09/29/16 at 21:00 Bisacodyl (Dulcolax Supp) 10 mg DAILY PRN [place] CONSTIPATION; Start 09/29/16 at 05 :30 Magnesium Hydroxide (Milk Of Mag) 30 ml BID PRN PO CONSTIPATION Last administered on 10/04/16 08:33; Admin Dose 30 ML; Start 09/29/16 at 05:30 Gabapentin (Neurontin) 100 mg TID PO Last administered on 10/11/16 08:50; Admin Dose 100 MG; Start 10/04/16 at 13:00 Warfarin Sodium (Coumadin) 4 mg DAILY@17 PO ; Start 10/14/16 at 17:00 Assessment/Plan Additional Assessment/Plan Rehab- C2 fracture and BHT Continue rehab program pain syndrome- Pain controlled End-stage renal disease-dialysis per internal medicine/nephrology. Dysphagia-mechanical soft diet per ST. Maintain aspiration precautions. Continue ST. CAD status post stent. Continue medical management. Sarcoidosis. On steroids per internal medicine/pulmonary. Diabetes mellitus type 2 with diabetic polyneuropathy. Blood sugars controlled, continue current management. Continue gabapentin. Hypertension. BP controlled. Continue current management. Chronic atrial fibrillation. Rate controlled. Continue medical management per internal medicine/cardiology. COPD. Continue to monitor pulmonary status, stable. Continue breathing treatments. Anemia of chronic disease. On epogen per nephrology/internal medicine. Monitor hemoglobin/hematocrit. SYDNEY ROGERS MD Oct 11, 2016 11:24
[2016-10-11 20:00] VITALS: BP 138/61; RESP 18
[2016-10-11] MEDS: ATORVASTATIN 40 MG TAB PO SCH (21:00)
[2016-10-11] MEDS: SENNA TAB PO SCH (21:00)
[2016-10-11] MEDS: FAMOTIDINE 20 MG TAB PO SCH (21:08)
[2016-10-11] MEDS: ZOLPIDEM 5 MG TAB PO PRN (23:44)
[2016-10-12] VITALS (11 sets, daily range): BP systolic 98–164; BP diastolic 51–80; PULSE 82–89; RESP 18
[2016-10-12] MEDS: ACCU-CHEK XX SCH (07:05)
--- NOTE | 2016-10-12 07:56 | CONS ---
Date/Time of Note Date/Time of Note DATE: 10/12/16 TIME: 07:55 Assessment/Plan Assessment/Plan Additional Assessment/Plan 1. Doing well now post cx spine fx 2. CKD, to have HD today 3. DC is anticipated tomm 4. Anemia has been stable Consultation Date/Type/Reason Admit Date/Time Sep 28, 2016 at 22:05 Type of Consultation: renal Detailed Summary Respiratory: No cough, No shortness of breath Cardiovascular: No chest pain Gastrointestinal: no complaints Genitourinary: no complaints Musculoskeletal: neck pain (mild discomfort only) Exam/Review of Systems Vital Signs Vitals Vital Signs Date Time Temp Pulse Resp B/P Pulse Ox O2 Delivery O2 Flow Rate FiO2 10/12/16 07:41 98.5 90 18 164/80 96 10/08/16 08:00 Nasal Cannula 2.0 Intake and Output 10/11/16 10/11/16 10/12/16 15:00 23:00 07:00 Intake Total 720 ml 260 ml Output Total 1 ml Balance 720 ml 260 ml -1 ml Exam Neck: No jvd Respiratory: clear to auscultation Cardiovascular: regular rate and rhythm Gastrointestinal: soft Extremities: edema (same brawny edema) Results Results 24 hrs Laboratory Tests Test 10/11/16 08:16 10/11/16 12:10 10/11/16 17:17 10/11/16 20:56 Bedside Glucose 85 94 110 130 Medications Medications Current Medications Sodium Biphosphate/ Sodium Phosphate (Fleet Enema) 133 ml DAILY PRN [place] CONSTIPATION; Start 09/28/16 at 23:00 Tramadol HCl (Ultram) 50 mg Q8H PRN PO PAIN Last administered on 10/11/16 11: 16; Admin Dose 50 MG; Start 09/28/16 at 23:00 Prednisone (Prednisone) 1 mg QHS PO Last administered on 10/11/16 20:58; Admin Dose 1 MG; Start 09/29/16 at 21:00 Prednisone (Prednisone) 4 mg DAILY PO Last administered on 10/11/16 08:50; Admin Dose 4 MG; Start 09/29/16 at 09:00 Salmeterol Xinafoate/ Fluticasone (Advair 250/50 Diskus) 1 inh BID INH Last administered on 10/11/16 21:11; Admin Dose 1 INH; Start 09/29/16 at 09:00 Miscellaneous Information 1 ea NOTE XX ; Start 09/28/16 at 23:00 Glucose (Glutose) 15 gm Q15M PRN PO DECREASED GLUCOSE; Start 09/28/16 at 23:00 Glucose (Glutose) 22.5 gm Q15M PRN PO DECREASED GLUCOSE; Start 09/28/16 at 23: 00 Dextrose (D50w Syringe) 25 ml Q15M PRN IV DECREASED GLUCOSE; Start 09/28/16 at 23:00 Dextrose (D50w Syringe) 50 ml Q15M PRN IV DECREASED GLUCOSE; Start 09/28/16 at 23:00 Glucagon (Glucagen) 1 mg Q15M PRN IM DECREASED GLUCOSE; Start 09/28/16 at 23:00 Glucose (Glutose) 15 gm Q15M PRN BUCCAL DECREASED GLUCOSE; Start 09/28/16 at 23 :00 Linagliptin (Tradjenta) 5 mg DAILY PO Last administered on 10/11/16 08:50; Admin Dose 5 MG; Start 09/29/16 at 09:00 Metoprolol Tartrate (Lopressor) 25 mg BID PO Last administered on 10/11/16 21: 00; Admin Dose 25 MG; Start 09/29/16 at 09:00 Heparin Sodium (Porcine) (Heparin (5000 Units/0.5 ml)) 5,000 unit Q12 SC Last administered on 10/11/16 21:05; Admin Dose 5,000 UNIT; Start 09/29/16 at 09:00 Acetaminophen/ Hydrocodone Bitart ([place] (5/325)) 1 tab Q6H PRN PO PAIN Last administered on 10/11/16 23:44; Admin Dose 1 TAB; Start 09/28/16 at 23:00 Acetaminophen/ Hydrocodone Bitart ([place] (5/325)) 2 tab Q6H PRN PO PAIN Last administered on 10/04/16 08:33; Admin Dose 2 TAB; Start 09/28/16 at 23:00; Status Future Hold Famotidine (Pepcid) 40 mg QHS PO Last administered on 10/11/16 21:08; Admin Dose 40 MG; Start 09/29/16 at 21:00 Fenofibrate (Tricor) 48 mg QAM PO Last administered on 10/11/16 08:50; Admin Dose 48 MG; Start 09/29/16 at 09:00 Folic Acid (Folic Acid) 1 mg BID PO Last administered on 10/11/16 21:00; Admin Dose 1 MG; Start 09/29/16 at 09:00 Eye Lubricant (Artificial Tears Oph) 2 drop Q2H PRN BOTH EYES DRY EYES; Start 09/28/16 at 23:30 Atorvastatin Calcium (Lipitor) 40 mg DAILY@21 PO Last administered on 21:00; Admin Dose 40 MG; Start 09/29/16 at 21:00 Docusate Sodium (Colace) 100 mg Q12H PRN PO CONSTIPATION; Start 09/28/16 at 23: 30 Epoetin César (Epogen (Esrd)) 10,000 units MoWeFr@17 SC Last administered on 19:20; Admin Dose 10,000 UNITS; Start 09/30/16 at 17:00 Docusate Sodium (Colace) 100 mg BID PO Last administered on 10/11/16 08:50; Admin Dose 100 MG; Start 09/29/16 at 09:00 Senna (Senokot) 1 tab HS PO Last administered on 10/10/16 21:21; Admin Dose 1 TAB; Start 09/29/16 at 21:00 Bisacodyl (Dulcolax Supp) 10 mg DAILY PRN [place] CONSTIPATION; Start 09/29/16 at 05 :30 Magnesium Hydroxide (Milk Of Mag) 30 ml BID PRN PO CONSTIPATION Last administered on 10/04/16 08:33; Admin Dose 30 ML; Start 09/29/16 at 05:30 Gabapentin (Neurontin) 100 mg TID PO Last administered on 10/11/16 20:58; Admin Dose 100 MG; Start 10/04/16 at 13:00 Warfarin Sodium (Coumadin) 4 mg DAILY@17 PO ; Start 10/14/16 at 17:00 ARISTIDES WATKINS MD Oct 12, 2016 07:56
[2016-10-12] MEDS: LINAGLIPTIN 5 MG TABLET PO SCH (08:17)
[2016-10-12] MEDS: METOPROLOL 25 MG TAB PO SCH ×2 (08:17→20:51)
[2016-10-12] MEDS: FOLIC ACID 1 MG TAB PO SCH ×2 (08:17→20:53)
[2016-10-12] MEDS: SEVELAMER CARBONATE 0.8 GM PKT PO SCH ×3 (08:17→17:24)
[2016-10-12] MEDS: DOCUSATE SODIUM 100 MG CAP PO SCH ×3 (08:17→21:00)
[2016-10-12] MEDS: FENOFIBRATE 48 MG TAB PO SCH (08:17)
[2016-10-12] MEDS: predniSONE 1 MG TAB PO SCH ×3 (08:17→20:50)
[2016-10-12] MEDS: SALMETEROL/FLUTICASONE 250/50 INHA INH SCH ×2 (08:18→21:49)
[2016-10-12] MEDS: GABAPENTIN 100 MG CAP PO SCH ×3 (08:18→20:49)
[2016-10-12] MEDS: HEPARIN 5,000 UNIT/0.5 ML VIAL SC SCH ×2 (08:23→20:54)
[2016-10-12] MEDS: HYDROCODONE/APAP (5/325) TAB PO PRN ×2 (09:28→21:07)
--- NOTE | 2016-10-12 12:40 | CONS ---
Date/Time of Note Date/Time of Note DATE: 10/12/16 TIME: 12:36 Consult Date/Type/Reason Admit Date/Time Sep 28, 2016 at 22:05 Type of Consultation: renal Subjective RN noted patient to have open wound in posterior scalp Objective HEENT- Left posterior scalp with wound pulm-cta abd-soft Vital Signs Date Time Temp Pulse Resp B/P Pulse Ox O2 Delivery O2 Flow Rate FiO2 10/12/16 07:41 98.5 90 18 164/80 96 10/08/16 08:00 Nasal Cannula 2.0 Intake and Output 10/11/16 10/11/16 10/12/16 15:00 23:00 07:00 Intake Total 720 ml 260 ml Output Total 1 ml Balance 720 ml 260 ml -1 ml Results/Medications Results 24 hrs Laboratory Tests Test 10/11/16 17:17 10/11/16 20:56 10/12/16 07:55 10/12/16 12:13 Bedside Glucose 110 130 87 118 Medications Current Medications Sodium Biphosphate/ Sodium Phosphate (Fleet Enema) 133 ml DAILY PRN [place] CONSTIPATION; Start 09/28/16 at 23:00 Tramadol HCl (Ultram) 50 mg Q8H PRN PO PAIN Last administered on 10/11/16 11: 16; Admin Dose 50 MG; Start 09/28/16 at 23:00 Prednisone (Prednisone) 1 mg QHS PO Last administered on 10/11/16 20:58; Admin Dose 1 MG; Start 09/29/16 at 21:00 Prednisone (Prednisone) 4 mg DAILY PO Last administered on 10/12/16 08:17; Admin Dose 4 MG; Start 09/29/16 at 09:00 Salmeterol Xinafoate/ Fluticasone (Advair 250/50 Diskus) 1 inh BID INH Last administered on 10/12/16 08:18; Admin Dose 1 INH; Start 09/29/16 at 09:00 Miscellaneous Information 1 ea NOTE XX ; Start 09/28/16 at 23:00 Glucose (Glutose) 15 gm Q15M PRN PO DECREASED GLUCOSE; Start 09/28/16 at 23:00 Glucose (Glutose) 22.5 gm Q15M PRN PO DECREASED GLUCOSE; Start 09/28/16 at 23: 00 Dextrose (D50w Syringe) 25 ml Q15M PRN IV DECREASED GLUCOSE; Start 09/28/16 at 23:00 Dextrose (D50w Syringe) 50 ml Q15M PRN IV DECREASED GLUCOSE; Start 09/28/16 at 23:00 Glucagon (Glucagen) 1 mg Q15M PRN IM DECREASED GLUCOSE; Start 09/28/16 at 23:00 Glucose (Glutose) 15 gm Q15M PRN BUCCAL DECREASED GLUCOSE; Start 09/28/16 at 23 :00 Linagliptin (Tradjenta) 5 mg DAILY PO Last administered on 10/12/16 08:17; Admin Dose 5 MG; Start 09/29/16 at 09:00 Metoprolol Tartrate (Lopressor) 25 mg BID PO Last administered on 10/12/16 08: 17; Admin Dose 25 MG; Start 09/29/16 at 09:00 Heparin Sodium (Porcine) (Heparin (5000 Units/0.5 ml)) 5,000 unit Q12 SC Last administered on 10/12/16 08:23; Admin Dose 5,000 UNIT; Start 09/29/16 at 09:00 Acetaminophen/ Hydrocodone Bitart ([place] (5/325)) 1 tab Q6H PRN PO PAIN Last administered on 10/12/16 09:28; Admin Dose 1 TAB; Start 09/28/16 at 23:00 Acetaminophen/ Hydrocodone Bitart ([place] (5/325)) 2 tab Q6H PRN PO PAIN Last administered on 10/04/16 08:33; Admin Dose 2 TAB; Start 09/28/16 at 23:00; Status Future Hold Famotidine (Pepcid) 40 mg QHS PO Last administered on 10/11/16 21:08; Admin Dose 40 MG; Start 09/29/16 at 21:00 Fenofibrate (Tricor) 48 mg QAM PO Last administered on 10/12/16 08:17; Admin Dose 48 MG; Start 09/29/16 at 09:00 Folic Acid (Folic Acid) 1 mg BID PO Last administered on 10/12/16 08:17; Admin Dose 1 MG; Start 09/29/16 at 09:00 Eye Lubricant (Artificial Tears Oph) 2 drop Q2H PRN BOTH EYES DRY EYES; Start 09/28/16 at 23:30 Atorvastatin Calcium (Lipitor) 40 mg DAILY@21 PO Last administered on 21:00; Admin Dose 40 MG; Start 09/29/16 at 21:00 Docusate Sodium (Colace) 100 mg Q12H PRN PO CONSTIPATION; Start 09/28/16 at 23: 30 Epoetin César (Epogen (Esrd)) 10,000 units MoWeFr@17 SC Last administered on 19:20; Admin Dose 10,000 UNITS; Start 09/30/16 at 17:00 Docusate Sodium (Colace) 100 mg BID PO Last administered on 10/11/16 08:50; Admin Dose 100 MG; Start 09/29/16 at 09:00 Senna (Senokot) 1 tab HS PO Last administered on 10/10/16 21:21; Admin Dose 1 TAB; Start 09/29/16 at 21:00 Bisacodyl (Dulcolax Supp) 10 mg DAILY PRN [place] CONSTIPATION; Start 09/29/16 at 05 :30 Magnesium Hydroxide (Milk Of Mag) 30 ml BID PRN PO CONSTIPATION Last administered on 10/04/16 08:33; Admin Dose 30 ML; Start 09/29/16 at 05:30 Gabapentin (Neurontin) 100 mg TID PO Last administered on 10/12/16 12:29; Admin Dose 100 MG; Start 10/04/16 at 13:00 Warfarin Sodium (Coumadin) 4 mg DAILY@17 PO ; Start 10/14/16 at 17:00 Cephalexin (Keflex) 250 mg Q8 PO ; Start 10/12/16 at 14:00; Status UNV Assessment/Plan Additional Assessment/Plan Rehab- C2 fracture and BHT Continue rehab treatment Wound- add padding to park interpreter cervical collar. Wound care consult pain syndrome- Pain controlled End-stage renal disease-dialysis per internal medicine/nephrology. Dysphagia-mechanical soft diet per ST. Maintain aspiration precautions. Continue ST. CAD status post stent. Continue medical management. Sarcoidosis. On steroids per internal medicine/pulmonary. Diabetes mellitus type 2 with diabetic polyneuropathy. Blood sugars controlled, continue current management. Continue gabapentin. Hypertension. BP controlled. Continue current management. Chronic atrial fibrillation. Rate controlled. Continue medical management per internal medicine/cardiology. COPD. Continue to monitor pulmonary status, stable. Continue breathing treatments. Anemia of chronic disease. On epogen per nephrology/internal medicine. Monitor hemoglobin/hematocrit. SYDNEY ROGERS MD Oct 12, 2016 12:40
[2016-10-12 12:51] LABS: ADD SCAN DIFF NO
[2016-10-12 12:52] LABS: BASOPHILS % 0.8 % (0.0-2.0); EOSINOPHILS # 0.1 10^3/ul (0.0-0.5); EOSINOPHILS % 2.4 % (0.0-7.0); HEMATOCRIT 33.1 % (37.0-47.0); HEMOGLOBIN 10.9 g/dl (12.0-16.0); LYMPHOCYTES # 1.1 10^3/ul (0.8-2.9); LYMPHOCYTES % 21.2 % (15.0-51.0); MEAN CORPUSCULAR HEMOGLOBIN 31.2 pg (29.0-33.0); MEAN CORPUSCULAR HGB CONC 32.9 g/dl (32.0-37.0); MEAN CORPUSCULAR VOLUME 94.8 fl (82.0-101.0); MEAN PLATELET VOLUME 10.1 fl (7.4-10.4); MONOCYTE # 0.5 10^3/ul (0.3-0.9); MONOCYTES % 10.2 % (0.0-11.0); NEUTROPHIL # 3.5 10^3/ul (1.6-7.5); PLATELET COUNT 194 10^3/UL (140-415); RED BLOOD COUNT 3.49 10^6/ul (4.20-5.40); RED CELL DISTRIBUTION WIDTH 17.6 % (11.5-14.5); WHITE BLOOD COUNT 5.3 10^3/ul (4.8-10.8)
[2016-10-12 13:09] LABS: CALCIUM 9.8 mg/dl (8.4-10.2); CREATININE 7.6 mg/dl (0.44-1.00); POTASSIUM 3.8 mmol/L (3.5-5.1)
[2016-10-12] MEDS: CEPHALEXIN 250 MG CAP PO SCH ×2 (14:40→21:48)
[2016-10-12] MEDS: traMADol 50 MG TAB PO PRN (14:40)
[2016-10-12] MEDS: COLLAGENASE 30 GM TUBE TOP SCH (17:23)
[2016-10-12] MEDS: EPOETIN 10000 UNITS/1 ML INJ (ESRD) SC SCH (17:32)
[2016-10-12] MEDS: ATORVASTATIN 40 MG TAB PO SCH (20:49)
[2016-10-12] MEDS: FAMOTIDINE 20 MG TAB PO SCH (20:50)
[2016-10-12] MEDS: SENNA TAB PO SCH (21:00)
[2016-10-12] MEDS ORDERED: VITAMIN A & D 5 GM OINT PACKET TOP ONE (22:00)
[2016-10-12] MEDS: ZOLPIDEM 5 MG TAB PO PRN (23:52)
[2016-10-13] MEDS: ZOLPIDEM 5 MG TAB PO PRN ×2 (00:32→23:59)
[2016-10-13] MEDS: CEPHALEXIN 250 MG CAP PO SCH ×3 (05:38→21:49)
[2016-10-13 06:21] LABS: ADD SCAN DIFF NO
[2016-10-13 06:24] LABS: BASOPHILS % 0.4 % (0.0-2.0); EOSINOPHILS # 0.1 10^3/ul (0.0-0.5); EOSINOPHILS % 1.8 % (0.0-7.0); HEMATOCRIT 29.2 % (37.0-47.0); HEMOGLOBIN 9.3 g/dl (12.0-16.0); LYMPHOCYTES # 1.5 10^3/ul (0.8-2.9); LYMPHOCYTES % 31.3 % (15.0-51.0); MEAN CORPUSCULAR HEMOGLOBIN 30.4 pg (29.0-33.0); MEAN CORPUSCULAR HGB CONC 31.8 g/dl (32.0-37.0); MEAN CORPUSCULAR VOLUME 95.4 fl (82.0-101.0); MEAN PLATELET VOLUME 10.1 fl (7.4-10.4); MONOCYTE # 0.6 10^3/ul (0.3-0.9); MONOCYTES % 11.2 % (0.0-11.0); NEUTROPHIL # 2.7 10^3/ul (1.6-7.5); NEUTROPHILS % 54.9 % (39.0-77.0); PLATELET COUNT 192 10^3/UL (140-415); RED BLOOD COUNT 3.06 10^6/ul (4.20-5.40); RED CELL DISTRIBUTION WIDTH 17.5 % (11.5-14.5); WHITE BLOOD COUNT 4.9 10^3/ul (4.8-10.8)
[2016-10-13 06:56] LABS: CALCIUM 9.6 mg/dl (8.4-10.2); CREATININE 5.48 mg/dl (0.44-1.00)
[2016-10-13 07:30] VITALS: BP 143/65; RESP 18
[2016-10-13] MEDS: ACCU-CHEK XX SCH (07:40)
--- NOTE | 2016-10-13 07:57 | CONS ---
Date/Time of Note Date/Time of Note DATE: 10/13/16 TIME: 07:54 Assessment/Plan Assessment/Plan Additional Assessment/Plan 1. CKD will plan on HD tomm 2. Cx spine fx, stable with continued less pain. 3. Scalp soreness, local irritation identified, local care provided by rehab 4. Anemia has improved Consultation Date/Type/Reason Admit Date/Time Sep 28, 2016 at 22:05 Type of Consultation: renal Detailed Summary Respiratory: No cough, No shortness of breath Cardiovascular: No chest pain, No orthopenea Gastrointestinal: no complaints Genitourinary: no complaints Musculoskeletal: neck pain (mild) Skin: other ("scalp is sore") Exam/Review of Systems Vital Signs Vitals Vital Signs Date Time Temp Pulse Resp B/P Pulse Ox O2 Delivery O2 Flow Rate FiO2 10/12/16 20:00 98.9 68 18 148/65 95 Intake and Output 10/12/16 10/12/16 10/13/16 15:00 23:00 07:00 Intake Total 760 ml 860 ml Output Total 2500 ml 2 ml Balance 760 ml -1640 ml -2 ml Exam Neck: No jvd Respiratory: clear to auscultation Cardiovascular: regular rate and rhythm Gastrointestinal: soft Extremities: No tenderness Results Result Diagram: 10/13/16 0607 10/13/16 0607 Results 24 hrs Laboratory Tests Test 10/12/16 07:55 10/12/16 12:13 10/12/16 12:30 10/12/16 17:27 Bedside Glucose 87 118 147 White Blood Count 5.3 Red Blood Count 3.49 #L Hemoglobin 10.9 #L Hematocrit 33.1 L Mean Corpuscular Volume 94.8 Mean Corpuscular Hemoglobin 31.2 Mean Corpuscular Hemoglobin Concent 32.9 Red Cell Distribution Width 17.6 H Platelet Count 194 # Mean Platelet Volume 10.1 Neutrophils % 65.0 Lymphocytes % 21.2 Monocytes % 10.2 Eosinophils % 2.4 Basophils % 0.8 Nucleated Red Blood Cells % 0.0 Neutrophils # 3.5 Lymphocytes # 1.1 Monocytes # 0.5 Eosinophils # 0.1 Basophils # 0.0 Nucleated Red Blood Cells # 0.0 Sodium Level 132 L Potassium Level 3.8 Chloride Level 93 L Carbon Dioxide Level 25 Anion Gap 18 H Blood Urea Nitrogen 58 H Creatinine 7.60 H Glucose Level 114 Calcium Level 9.8 Test 6/28/17 20:47 10/13/16 06:07 Bedside Glucose 106 White Blood Count 4.9 Red Blood Count 3.06 L Hemoglobin 9.3 L Hematocrit 29.2 L Mean Corpuscular Volume 95.4 Mean Corpuscular Hemoglobin 30.4 Mean Corpuscular Hemoglobin Concent 31.8 L Red Cell Distribution Width 17.5 H Platelet Count 192 Mean Platelet Volume 10.1 Neutrophils % 54.9 Lymphocytes % 31.3 Monocytes % 11.2 H Eosinophils % 1.8 Basophils % 0.4 Nucleated Red Blood Cells % 0.0 Neutrophils # 2.7 Lymphocytes # 1.5 Monocytes # 0.6 Eosinophils # 0.1 Basophils # 0.0 Nucleated Red Blood Cells # 0.0 Sodium Level 135 Potassium Level 4.0 Chloride Level 97 Carbon Dioxide Level 25 Anion Gap 17 H Blood Urea Nitrogen 40 #H Creatinine 5.48 #H Glucose Level 83 Calcium Level 9.6 Medications Medications Current Medications Sodium Biphosphate/ Sodium Phosphate (Fleet Enema) 133 ml DAILY PRN [place] CONSTIPATION; Start 09/28/16 at 23:00 Tramadol HCl (Ultram) 50 mg Q8H PRN PO PAIN Last administered on 10/12/16 14: 40; Admin Dose 50 MG; Start 09/28/16 at 23:00 Prednisone (Prednisone) 1 mg QHS PO Last administered on 10/12/16 20:50; Admin Dose 1 MG; Start 09/29/16 at 21:00 Prednisone (Prednisone) 4 mg DAILY PO Last administered on 10/12/16 08:17; Admin Dose 4 MG; Start 09/29/16 at 09:00 Salmeterol Xinafoate/ Fluticasone (Advair 250/50 Diskus) 1 inh BID INH Last administered on 10/12/16 21:49; Admin Dose 1 INH; Start 09/29/16 at 09:00 Miscellaneous Information 1 ea NOTE XX ; Start 09/28/16 at 23:00 Glucose (Glutose) 15 gm Q15M PRN PO DECREASED GLUCOSE; Start 09/28/16 at 23:00 Glucose (Glutose) 22.5 gm Q15M PRN PO DECREASED GLUCOSE; Start 09/28/16 at 23: 00 Dextrose (D50w Syringe) 25 ml Q15M PRN IV DECREASED GLUCOSE; Start 09/28/16 at 23:00 Dextrose (D50w Syringe) 50 ml Q15M PRN IV DECREASED GLUCOSE; Start 09/28/16 at 23:00 Glucagon (Glucagen) 1 mg Q15M PRN IM DECREASED GLUCOSE; Start 09/28/16 at 23:00 Glucose (Glutose) 15 gm Q15M PRN BUCCAL DECREASED GLUCOSE; Start 09/28/16 at 23 :00 Linagliptin (Tradjenta) 5 mg DAILY PO Last administered on 10/12/16 08:17; Admin Dose 5 MG; Start 09/29/16 at 09:00 Metoprolol Tartrate (Lopressor) 25 mg BID PO Last administered on 10/12/16 20: 51; Admin Dose 25 MG; Start 09/29/16 at 09:00 Heparin Sodium (Porcine) (Heparin (5000 Units/0.5 ml)) 5,000 unit Q12 SC Last administered on 10/12/16 20:54; Admin Dose 5,000 UNIT; Start 09/29/16 at 09:00 Acetaminophen/ Hydrocodone Bitart ([place] (5/325)) 1 tab Q6H PRN PO PAIN Last administered on 10/12/16 21:07; Admin Dose 1 TAB; Start 09/28/16 at 23:00 Acetaminophen/ Hydrocodone Bitart ([place] (5/325)) 2 tab Q6H PRN PO PAIN Last administered on 10/04/16 08:33; Admin Dose 2 TAB; Start 09/28/16 at 23:00; Status Future Hold Famotidine (Pepcid) 40 mg QHS PO Last administered on 10/12/16 20:50; Admin Dose 40 MG; Start 09/29/16 at 21:00 Fenofibrate (Tricor) 48 mg QAM PO Last administered on 10/12/16 08:17; Admin Dose 48 MG; Start 09/29/16 at 09:00 Folic Acid (Folic Acid) 1 mg BID PO Last administered on 10/12/16 20:53; Admin Dose 1 MG; Start 09/29/16 at 09:00 Eye Lubricant (Artificial Tears Oph) 2 drop Q2H PRN BOTH EYES DRY EYES; Start 09/28/16 at 23:30 Atorvastatin Calcium (Lipitor) 40 mg DAILY@21 PO Last administered on 6/28/ 17at 20:49; Admin Dose 40 MG; Start 09/29/16 at 21:00 Docusate Sodium (Colace) 100 mg Q12H PRN PO CONSTIPATION; Start 09/28/16 at 23: 30 Epoetin César (Epogen (Esrd)) 10,000 units MoWeFr@17 SC Last administered on 17:32; Admin Dose 10,000 UNITS; Start 09/30/16 at 17:00 Docusate Sodium (Colace) 100 mg BID PO Last administered on 10/11/16 08:50; Admin Dose 100 MG; Start 09/29/16 at 09:00 Senna (Senokot) 1 tab HS PO Last administered on 10/10/16 21:21; Admin Dose 1 TAB; Start 09/29/16 at 21:00 Bisacodyl (Dulcolax Supp) 10 mg DAILY PRN [place] CONSTIPATION; Start 09/29/16 at 05 :30 Magnesium Hydroxide (Milk Of Mag) 30 ml BID PRN PO CONSTIPATION Last administered on 10/04/16 08:33; Admin Dose 30 ML; Start 09/29/16 at 05:30 Gabapentin (Neurontin) 100 mg TID PO Last administered on 10/12/16 20:49; Admin Dose 100 MG; Start 10/04/16 at 13:00 Warfarin Sodium (Coumadin) 4 mg DAILY@17 PO ; Start 10/14/16 at 17:00 Cephalexin (Keflex) 250 mg Q8 PO Last administered on 10/13/16 05:38; Admin Dose 250 MG; Start 10/12/16 at 14:00 Collagenase (Santyl) 1 applic DAILY TOP Last administered on 10/12/16 17:23; Admin Dose 1 APPLIC; Start 10/12/16 at 16:30 ARISTIDES WATKINS MD Oct 13, 2016 07:56
[2016-10-13] MEDS: SEVELAMER CARBONATE 0.8 GM PKT PO SCH ×3 (08:43→17:32)
[2016-10-13] MEDS: COLLAGENASE 30 GM TUBE TOP SCH (08:43)
[2016-10-13] MEDS: SALMETEROL/FLUTICASONE 250/50 INHA INH SCH ×2 (08:44→21:47)
[2016-10-13] MEDS: GABAPENTIN 100 MG CAP PO SCH ×3 (08:44→21:49)
[2016-10-13] MEDS: DOCUSATE SODIUM 100 MG CAP PO SCH ×3 (08:44→21:48)
[2016-10-13] MEDS: LINAGLIPTIN 5 MG TABLET PO SCH (08:44)
[2016-10-13] MEDS: FOLIC ACID 1 MG TAB PO SCH ×2 (08:44→21:48)
[2016-10-13] MEDS: METOPROLOL 25 MG TAB PO SCH ×2 (08:45→21:48)
[2016-10-13] MEDS: HEPARIN 5,000 UNIT/0.5 ML VIAL SC SCH (08:45)
[2016-10-13] MEDS: predniSONE 1 MG TAB PO SCH ×3 (08:45→21:49)
[2016-10-13] MEDS: FENOFIBRATE 48 MG TAB PO SCH (08:45)
[2016-10-13] MEDS: HYDROCODONE/APAP (5/325) TAB PO PRN ×2 (11:07→21:50)
--- NOTE | 2016-10-13 11:52 | CONS ---
Date/Time of Note Date/Time of Note DATE: 10/13/16 TIME: 11:48 Consult Date/Type/Reason Admit Date/Time Sep 28, 2016 at 22:05 Type of Consultation: renal Subjective Patient doesnt like wearing brace, but importance of brace reviewed. [employer] came to make customized [place] collar Objective pulm-cta sba ambulation Vital Signs Date Time Temp Pulse Resp B/P Pulse Ox O2 Delivery O2 Flow Rate FiO2 10/13/16 07:30 98.7 80 18 143/65 95 Intake and Output 10/12/16 10/12/16 10/13/16 15:00 23:00 07:00 Intake Total 760 ml 860 ml Output Total 2500 ml 2 ml Balance 760 ml -1640 ml -2 ml Results/Medications Result Diagram: 10/13/16 0607 10/13/16 0607 Results 24 hrs Laboratory Tests Test 10/12/16 12:13 10/12/16 12:30 10/12/16 17:27 10/12/16 20:47 Bedside Glucose 118 147 106 White Blood Count 5.3 Red Blood Count 3.49 #L Hemoglobin 10.9 #L Hematocrit 33.1 L Mean Corpuscular Volume 94.8 Mean Corpuscular Hemoglobin 31.2 Mean Corpuscular Hemoglobin Concent 32.9 Red Cell Distribution Width 17.6 H Platelet Count 194 # Mean Platelet Volume 10.1 Neutrophils % 65.0 Lymphocytes % 21.2 Monocytes % 10.2 Eosinophils % 2.4 Basophils % 0.8 Nucleated Red Blood Cells % 0.0 Neutrophils # 3.5 Lymphocytes # 1.1 Monocytes # 0.5 Eosinophils # 0.1 Basophils # 0.0 Nucleated Red Blood Cells # 0.0 Sodium Level 132 L Potassium Level 3.8 Chloride Level 93 L Carbon Dioxide Level 25 Anion Gap 18 H Blood Urea Nitrogen 58 H Creatinine 7.60 H Glucose Level 114 Calcium Level 9.8 Test 10/13/16 06:07 10/13/16 08:19 White Blood Count 4.9 Red Blood Count 3.06 L Hemoglobin 9.3 L Hematocrit 29.2 L Mean Corpuscular Volume 95.4 Mean Corpuscular Hemoglobin 30.4 Mean Corpuscular Hemoglobin Concent 31.8 L Red Cell Distribution Width 17.5 H Platelet Count 192 Mean Platelet Volume 10.1 Neutrophils % 54.9 Lymphocytes % 31.3 Monocytes % 11.2 H Eosinophils % 1.8 Basophils % 0.4 Nucleated Red Blood Cells % 0.0 Neutrophils # 2.7 Lymphocytes # 1.5 Monocytes # 0.6 Eosinophils # 0.1 Basophils # 0.0 Nucleated Red Blood Cells # 0.0 Sodium Level 135 Potassium Level 4.0 Chloride Level 97 Carbon Dioxide Level 25 Anion Gap 17 H Blood Urea Nitrogen 40 #H Creatinine 5.48 #H Glucose Level 83 Calcium Level 9.6 Bedside Glucose 91 Medications Current Medications Sodium Biphosphate/ Sodium Phosphate (Fleet Enema) 133 ml DAILY PRN [place] CONSTIPATION; Start 09/28/16 at 23:00 Tramadol HCl (Ultram) 50 mg Q8H PRN PO PAIN Last administered on 10/12/16 14: 40; Admin Dose 50 MG; Start 09/28/16 at 23:00 Prednisone (Prednisone) 1 mg QHS PO Last administered on 10/12/16 20:50; Admin Dose 1 MG; Start 09/29/16 at 21:00 Prednisone (Prednisone) 4 mg DAILY PO Last administered on 10/13/16 08:45; Admin Dose 4 MG; Start 09/29/16 at 09:00 Salmeterol Xinafoate/ Fluticasone (Advair 250/50 Diskus) 1 inh BID INH Last administered on 10/13/16 08:44; Admin Dose 1 INH; Start 09/29/16 at 09:00 Miscellaneous Information 1 ea NOTE XX ; Start 09/28/16 at 23:00 Glucose (Glutose) 15 gm Q15M PRN PO DECREASED GLUCOSE; Start 09/28/16 at 23:00 Glucose (Glutose) 22.5 gm Q15M PRN PO DECREASED GLUCOSE; Start 09/28/16 at 23: 00 Dextrose (D50w Syringe) 25 ml Q15M PRN IV DECREASED GLUCOSE; Start 09/28/16 at 23:00 Dextrose (D50w Syringe) 50 ml Q15M PRN IV DECREASED GLUCOSE; Start 09/28/16 at 23:00 Glucagon (Glucagen) 1 mg Q15M PRN IM DECREASED GLUCOSE; Start 09/28/16 at 23:00 Glucose (Glutose) 15 gm Q15M PRN BUCCAL DECREASED GLUCOSE; Start 09/28/16 at 23 :00 Linagliptin (Tradjenta) 5 mg DAILY PO Last administered on 10/13/16 08:44; Admin Dose 5 MG; Start 09/29/16 at 09:00 Metoprolol Tartrate (Lopressor) 25 mg BID PO Last administered on 10/13/16 08: 45; Admin Dose 25 MG; Start 09/29/16 at 09:00 Heparin Sodium (Porcine) (Heparin (5000 Units/0.5 ml)) 5,000 unit Q12 SC Last administered on 10/13/16 08:45; Admin Dose 5,000 UNIT; Start 09/29/16 at 09:00 Acetaminophen/ Hydrocodone Bitart ([place] (5/325)) 1 tab Q6H PRN PO PAIN Last administered on 10/13/16 11:07; Admin Dose 1 TAB; Start 09/28/16 at 23:00 Acetaminophen/ Hydrocodone Bitart ([place] (5/325)) 2 tab Q6H PRN PO PAIN Last administered on 10/04/16 08:33; Admin Dose 2 TAB; Start 09/28/16 at 23:00; Status Future Hold Famotidine (Pepcid) 40 mg QHS PO Last administered on 10/12/16 20:50; Admin Dose 40 MG; Start 09/29/16 at 21:00 Fenofibrate (Tricor) 48 mg QAM PO Last administered on 10/13/16 08:45; Admin Dose 48 MG; Start 09/29/16 at 09:00 Folic Acid (Folic Acid) 1 mg BID PO Last administered on 10/13/16 08:44; Admin Dose 1 MG; Start 09/29/16 at 09:00 Eye Lubricant (Artificial Tears Oph) 2 drop Q2H PRN BOTH EYES DRY EYES; Start 09/28/16 at 23:30 Atorvastatin Calcium (Lipitor) 40 mg DAILY@21 PO Last administered on 20:49; Admin Dose 40 MG; Start 09/29/16 at 21:00 Docusate Sodium (Colace) 100 mg Q12H PRN PO CONSTIPATION; Start 09/28/16 at 23: 30 Epoetin César (Epogen (Esrd)) 10,000 units MoWeFr@17 SC Last administered on 17:32; Admin Dose 10,000 UNITS; Start 09/30/16 at 17:00 Docusate Sodium (Colace) 100 mg BID PO Last administered on 10/13/16 08:44; Admin Dose 100 MG; Start 09/29/16 at 09:00 Senna (Senokot) 1 tab HS PO Last administered on 10/10/16 21:21; Admin Dose 1 TAB; Start 09/29/16 at 21:00 Bisacodyl (Dulcolax Supp) 10 mg DAILY PRN [place] CONSTIPATION; Start 09/29/16 at 05 :30 Magnesium Hydroxide (Milk Of Mag) 30 ml BID PRN PO CONSTIPATION Last administered on 10/04/16 08:33; Admin Dose 30 ML; Start 09/29/16 at 05:30 Gabapentin (Neurontin) 100 mg TID PO Last administered on 10/13/16 08:44; Admin Dose 100 MG; Start 10/04/16 at 13:00 Warfarin Sodium (Coumadin) 4 mg DAILY@17 PO ; Start 10/14/16 at 17:00 Cephalexin (Keflex) 250 mg Q8 PO Last administered on 10/13/16 05:38; Admin Dose 250 MG; Start 10/12/16 at 14:00 Collagenase (Santyl) 1 applic DAILY TOP Last administered on 10/13/16 08:43; Admin Dose 1 APPLIC; Start 10/12/16 at 16:30 Assessment/Plan Additional Assessment/Plan Rehab- C2 fracture and BHT Continue rehab program Wound- wound care. offloading, and cutomized [place] collar pain syndrome- Pain controlled End-stage renal disease-dialysis per internal medicine/nephrology. Dysphagia-mechanical soft diet per ST. Maintain aspiration precautions. Continue ST. CAD status post stent. Continue medical management. Sarcoidosis. On steroids per internal medicine/pulmonary. Diabetes mellitus type 2 with diabetic polyneuropathy. Blood sugars controlled, continue current management. Continue gabapentin. Hypertension. BP controlled. Continue current management. Chronic atrial fibrillation. Rate controlled. Continue medical management per internal medicine/cardiology. COPD. Continue to monitor pulmonary status, stable. Continue breathing treatments. Anemia of chronic disease. On epogen per nephrology/internal medicine. Monitor hemoglobin/hematocrit. Functional Impact of Comorbidities- the posterior scalp wound is affecting brace use, however patient is required to wear brace per NS, given the cervical fracture. Specialized [place] collar should be delivered today. SYDNEY ROGERS MD Oct 13, 2016 11:52
--- NOTE | 2016-10-13 14:49 | PN ---
Date/Time of Note Date/Time of Note DATE: 10/13/16 TIME: 14:39 Assessment/Plan VTE Prophylaxis VTE Prophylaxis Intervention: ambulation Lines/Catheters IV [facility]ter [facility]from [facility] Urinary Cath still in place: No Assessment/Plan Problems: (1) Atrial fibrillation Status: Chronic Comment: Patient is progressed well and is rate controlled. We are now enough time out from the dens fracture that we can resume anticoagulation as of tomorrow Qualifiers: Atrial fibrillation type: chronic Qualified Code: I48.2 - Chronic atrial fibrillation (2) COPD (chronic obstructive pulmonary disease) Status: Chronic Comment: Breathing is well-controlled and compensated on current medication regimen Qualifiers: COPD type: emphysema Emphysema type: panlobular Qualified Code: J43.1 - Panlobular emphysema (3) Sarcoidosis Status: Chronic Comment: Remains on low-dose steroids and stable (4) ESRD (end stage renal disease) on dialysis Status: Chronic Comment: Continue on hemodialysis as per nephrology (5) Diabetes mellitus type 2 in obese Status: Chronic Comment: Well-controlled on current regimen (6) Hypertension associated with chronic kidney disease due to type 2 diabetes mellitus Status: Chronic Comment: Adequate control (7) Dens fracture Status: Acute Comment: Progressing nicely. Qualifiers: Encounter type: subsequent encounter Fracture healing: with routine healing Qualified Code: S12.100D - Dens fracture, with routine healing, subsequent encounter (8) Diastolic dysfunction Status: Chronic Comment: On appropriate therapy (9) Atherosclerotic heart disease of [place] coronary artery without angina pectoris Status: Chronic Comment: Quiescent and in active Qualifiers: [place] vs. transplanted heart: [place] heart Qualified Code: I25.10 - Atherosclerosis of [place] coronary artery of [place] heart without angina pectoris (10) Obstructive sleep apnea Status: Chronic Comment: Patient declines CPAP therapy (11) Hyperlipidemia Status: Chronic Comment: Continue statin therapy Qualifiers: Hyperlipidemia type: pure hypercholesterolemia Qualified Code: E78.00 - Pure hypercholesterolemia (12) Status post transcatheter aortic valve replacement (TAVR) using bioprosthesis Status: Acute Comment: Fully functional Subjective 24 Hr Interval Summary Free Text/Dictation Patient has been up and ambulating and actually was ambulating outside with a front wheeled walker and her family Constitutional: no complaints Respiratory: no complaints Cardiovascular: no complaints Gastrointestinal: no complaints Genitourinary: no complaints Exam/Review of Systems Vital Signs Vitals Vital Signs Date Time Temp Pulse Resp B/P Pulse Ox O2 Delivery O2 Flow Rate FiO2 10/13/16 07:30 98.7 80 18 143/65 95 Intake and Output 10/12/16 10/12/16 10/13/16 15:00 23:00 07:00 Intake Total 760 ml 860 ml Output Total 2500 ml 2 ml Balance 760 ml -1640 ml -2 ml Exam Constitutional: alert, oriented Neck: non-tender, supple Respiratory: clear to auscultation, normal air movement Cardiovascular: nl pulses, regular rate and rhythm Gastrointestinal: nl liver, spleen, non-tender, soft Results Result Diagram: 10/13/16 0607 10/13/16 0607 Results 24 hrs Laboratory Tests Test 10/12/16 17:27 10/12/16 20:47 10/13/16 06:07 10/13/16 08:19 Bedside Glucose 147 106 91 White Blood Count 4.9 Red Blood Count 3.06 L Hemoglobin 9.3 L Hematocrit 29.2 L Mean Corpuscular Volume 95.4 Mean Corpuscular Hemoglobin 30.4 Mean Corpuscular Hemoglobin Concent 31.8 L Red Cell Distribution Width 17.5 H Platelet Count 192 Mean Platelet Volume 10.1 Neutrophils % 54.9 Lymphocytes % 31.3 Monocytes % 11.2 H Eosinophils % 1.8 Basophils % 0.4 Nucleated Red Blood Cells % 0.0 Neutrophils # 2.7 Lymphocytes # 1.5 Monocytes # 0.6 Eosinophils # 0.1 Basophils # 0.0 Nucleated Red Blood Cells # 0.0 Sodium Level 135 Potassium Level 4.0 Chloride Level 97 Carbon Dioxide Level 25 Anion Gap 17 H Blood Urea Nitrogen 40 #H Creatinine 5.48 #H Glucose Level 83 Calcium Level 9.6 Medications Medications Current Medications Sodium Biphosphate/ Sodium Phosphate (Fleet Enema) 133 ml DAILY PRN [place] CONSTIPATION; Start 09/28/16 at 23:00 Tramadol HCl (Ultram) 50 mg Q8H PRN PO PAIN Last administered on 10/12/16 14: 40; Admin Dose 50 MG; Start 09/28/16 at 23:00 Prednisone (Prednisone) 1 mg QHS PO Last administered on 10/12/16 20:50; Admin Dose 1 MG; Start 09/29/16 at 21:00 Prednisone (Prednisone) 4 mg DAILY PO Last administered on 10/13/16 08:45; Admin Dose 4 MG; Start 09/29/16 at 09:00 Salmeterol Xinafoate/ Fluticasone (Advair 250/50 Diskus) 1 inh BID INH Last administered on 10/13/16 08:44; Admin Dose 1 INH; Start 09/29/16 at 09:00 Miscellaneous Information 1 ea NOTE XX ; Start 09/28/16 at 23:00 Glucose (Glutose) 15 gm Q15M PRN PO DECREASED GLUCOSE; Start 09/28/16 at 23:00 Glucose (Glutose) 22.5 gm Q15M PRN PO DECREASED GLUCOSE; Start 09/28/16 at 23: 00 Dextrose (D50w Syringe) 25 ml Q15M PRN IV DECREASED GLUCOSE; Start 09/28/16 at 23:00 Dextrose (D50w Syringe) 50 ml Q15M PRN IV DECREASED GLUCOSE; Start 09/28/16 at 23:00 Glucagon (Glucagen) 1 mg Q15M PRN IM DECREASED GLUCOSE; Start 09/28/16 at 23:00 Glucose (Glutose) 15 gm Q15M PRN BUCCAL DECREASED GLUCOSE; Start 09/28/16 at 23 :00 Linagliptin (Tradjenta) 5 mg DAILY PO Last administered on 10/13/16 08:44; Admin Dose 5 MG; Start 09/29/16 at 09:00 Metoprolol Tartrate (Lopressor) 25 mg BID PO Last administered on 10/13/16 08: 45; Admin Dose 25 MG; Start 09/29/16 at 09:00 Heparin Sodium (Porcine) (Heparin (5000 Units/0.5 ml)) 5,000 unit Q12 SC Last administered on 10/13/16 08:45; Admin Dose 5,000 UNIT; Start 09/29/16 at 09:00 Acetaminophen/ Hydrocodone Bitart ([place] (5/325)) 1 tab Q6H PRN PO PAIN Last administered on 10/13/16 11:07; Admin Dose 1 TAB; Start 09/28/16 at 23:00 Acetaminophen/ Hydrocodone Bitart ([place] (5/325)) 2 tab Q6H PRN PO PAIN Last administered on 10/04/16 08:33; Admin Dose 2 TAB; Start 09/28/16 at 23:00; Status Future Hold Famotidine (Pepcid) 40 mg QHS PO Last administered on 10/12/16 20:50; Admin Dose 40 MG; Start 09/29/16 at 21:00 Fenofibrate (Tricor) 48 mg QAM PO Last administered on 10/13/16 08:45; Admin Dose 48 MG; Start 09/29/16 at 09:00 Folic Acid (Folic Acid) 1 mg BID PO Last administered on 10/13/16 08:44; Admin Dose 1 MG; Start 09/29/16 at 09:00 Eye Lubricant (Artificial Tears Oph) 2 drop Q2H PRN BOTH EYES DRY EYES; Start 09/28/16 at 23:30 Atorvastatin Calcium (Lipitor) 40 mg DAILY@21 PO Last administered on 20:49; Admin Dose 40 MG; Start 09/29/16 at 21:00 Docusate Sodium (Colace) 100 mg Q12H PRN PO CONSTIPATION; Start 09/28/16 at 23: 30 Epoetin César (Epogen (Esrd)) 10,000 units MoWeFr@17 SC Last administered on 17:32; Admin Dose 10,000 UNITS; Start 09/30/16 at 17:00 Docusate Sodium (Colace) 100 mg BID PO Last administered on 10/13/16 08:44; Admin Dose 100 MG; Start 09/29/16 at 09:00 Senna (Senokot) 1 tab HS PO Last administered on 10/10/16 21:21; Admin Dose 1 TAB; Start 09/29/16 at 21:00 Bisacodyl (Dulcolax Supp) 10 mg DAILY PRN [place] CONSTIPATION; Start 09/29/16 at 05 :30 Magnesium Hydroxide (Milk Of Mag) 30 ml BID PRN PO CONSTIPATION Last administered on 10/04/16 08:33; Admin Dose 30 ML; Start 09/29/16 at 05:30 Gabapentin (Neurontin) 100 mg TID PO Last administered on 10/13/16 13:54; Admin Dose 100 MG; Start 10/04/16 at 13:00 Warfarin Sodium (Coumadin) 4 mg DAILY@17 PO ; Start 10/14/16 at 17:00 Cephalexin (Keflex) 250 mg Q8 PO Last administered on 10/13/16 05:38; Admin Dose 250 MG; Start 10/12/16 at 14:00 Collagenase (Santyl) 1 applic DAILY TOP Last administered on 10/13/16t 08:43; Admin Dose 1 APPLIC; Start 10/12/16 at 16:30 TOMER GARCIA MD Oct 13, 2016 14:49
[2016-10-13 19:21] VITALS: BP 158/67; RESP 18
[2016-10-13] MEDS: SENNA TAB PO SCH (21:00)
[2016-10-13] MEDS: CARBAMIDE PEROXIDE 6.5% 15ML OTIC BOTH EARS SCH (21:00)
[2016-10-13] MEDS: ATORVASTATIN 40 MG TAB PO SCH (21:48)
[2016-10-13] MEDS: FAMOTIDINE 20 MG TAB PO SCH (21:49)
[2016-10-14] VITALS (10 sets, daily range): BP systolic 100–146; BP diastolic 49–75; PULSE 80–300; RESP 18
[2016-10-14] MEDS: CEPHALEXIN 250 MG CAP PO SCH ×3 (06:39→20:40)
[2016-10-14 07:27] LABS: BASOPHIL # 0.1 10^3/ul (0.0-0.1); EOSINOPHILS # 0.1 10^3/ul (0.0-0.5); EOSINOPHILS % 1.8 % (0.0-7.0); HEMATOCRIT 27.6 % (37.0-47.0); LYMPHOCYTES # 1.8 10^3/ul (0.8-2.9); LYMPHOCYTES % 37.2 % (15.0-51.0); MEAN CORPUSCULAR HEMOGLOBIN 30.9 pg (29.0-33.0); MEAN CORPUSCULAR HGB CONC 32.6 g/dl (32.0-37.0); MEAN CORPUSCULAR VOLUME 94.8 fl (82.0-101.0); MEAN PLATELET VOLUME 10.6 fl (7.4-10.4); MONOCYTE # 0.5 10^3/ul (0.3-0.9); MONOCYTES % 10.6 % (0.0-11.0); NEUTROPHIL # 2.4 10^3/ul (1.6-7.5); NEUTROPHILS % 49.2 % (39.0-77.0); PLATELET COUNT 200 10^3/UL (140-415); RED BLOOD COUNT 2.91 10^6/ul (4.20-5.40); RED CELL DISTRIBUTION WIDTH 17.2 % (11.5-14.5); WHITE BLOOD COUNT 4.9 10^3/ul (4.8-10.8)
[2016-10-14 07:32] LABS: ADD SCAN DIFF NO
--- NOTE | 2016-10-14 07:43 | CONS ---
Date/Time of Note Date/Time of Note DATE: 10/14/16 TIME: 07:42 Assessment/Plan Assessment/Plan Additional Assessment/Plan 1. Stable cx spine fx 2. CKD, to have HD today 3. Atrial fib, stable 4. Anemia is stable Consultation Date/Type/Reason Admit Date/Time Sep 28, 2016 at 22:05 Type of Consultation: renal Detailed Summary Respiratory: No cough, No shortness of breath Cardiovascular: No chest pain, No orthopenea Gastrointestinal: no complaints Genitourinary: no complaints Musculoskeletal: neck pain (mild) Exam/Review of Systems Vital Signs Vitals Vital Signs Date Time Temp Pulse Resp B/P Pulse Ox O2 Delivery O2 Flow Rate FiO2 10/13/16 19:21 97.8 80 18 158/67 98 Intake and Output 10/13/16 10/13/16 10/14/16 15:00 23:00 07:00 Intake Total 1080 ml 900 ml Output Total 1 ml Balance 1079 ml 900 ml Exam Neck: No jvd Respiratory: clear to auscultation Cardiovascular: regular rate and rhythm Gastrointestinal: soft Extremities: No tenderness (calves bilat) Results Result Diagram: 10/14/16 0615 10/13/16 0607 Results 24 hrs Laboratory Tests Test 10/13/16 08:19 10/14/16 06:15 Bedside Glucose 91 White Blood Count 4.9 Red Blood Count 2.91 L Hemoglobin 9.0 L Hematocrit 27.6 L Mean Corpuscular Volume 94.8 Mean Corpuscular Hemoglobin 30.9 Mean Corpuscular Hemoglobin Concent 32.6 Red Cell Distribution Width 17.2 H Platelet Count 200 Mean Platelet Volume 10.6 H Neutrophils % 49.2 Lymphocytes % 37.2 Monocytes % 10.6 Eosinophils % 1.8 Basophils % 1.0 Nucleated Red Blood Cells % 0.0 Neutrophils # 2.4 Lymphocytes # 1.8 Monocytes # 0.5 Eosinophils # 0.1 Basophils # 0.1 Nucleated Red Blood Cells # 0.0 Medications Medications Current Medications Sodium Biphosphate/ Sodium Phosphate (Fleet Enema) 133 ml DAILY PRN [place] CONSTIPATION; Start 09/28/16 at 23:00 Tramadol HCl (Ultram) 50 mg Q8H PRN PO PAIN Last administered on 10/12/16t 14: 40; Admin Dose 50 MG; Start 09/28/16 at 23:00 Prednisone (Prednisone) 1 mg QHS PO Last administered on 10/13/16 21:49; Admin Dose 1 MG; Start 09/29/16 at 21:00 Prednisone (Prednisone) 4 mg DAILY PO Last administered on 10/13/16 08:45; Admin Dose 4 MG; Start 09/29/16 at 09:00 Salmeterol Xinafoate/ Fluticasone (Advair 250/50 Diskus) 1 inh BID INH Last administered on 10/13/16 21:47; Admin Dose 1 INH; Start 09/29/16 at 09:00 Miscellaneous Information 1 ea NOTE XX ; Start 09/28/16 at 23:00 Glucose (Glutose) 15 gm Q15M PRN PO DECREASED GLUCOSE; Start 09/28/16 at 23:00 Glucose (Glutose) 22.5 gm Q15M PRN PO DECREASED GLUCOSE; Start 09/28/16 at 23: 00 Dextrose (D50w Syringe) 25 ml Q15M PRN IV DECREASED GLUCOSE; Start 09/28/16 at 23:00 Dextrose (D50w Syringe) 50 ml Q15M PRN IV DECREASED GLUCOSE; Start 09/28/16 at 23:00 Glucagon (Glucagen) 1 mg Q15M PRN IM DECREASED GLUCOSE; Start 09/28/16 at 23:00 Glucose (Glutose) 15 gm Q15M PRN BUCCAL DECREASED GLUCOSE; Start 09/28/16 at 23 :00 Linagliptin (Tradjenta) 5 mg DAILY PO Last administered on 10/13/16 08:44; Admin Dose 5 MG; Start 09/29/16 at 09:00 Metoprolol Tartrate (Lopressor) 25 mg BID PO Last administered on 10/13/16 21: 48; Admin Dose 25 MG; Start 09/29/16 at 09:00 Acetaminophen/ Hydrocodone Bitart ([place] (5/325)) 1 tab Q6H PRN PO PAIN Last administered on 10/13/16 21:50; Admin Dose 1 TAB; Start 09/28/16 at 23:00 Acetaminophen/ Hydrocodone Bitart ([place] (5/325)) 2 tab Q6H PRN PO PAIN Last administered on 10/04/16 08:33; Admin Dose 2 TAB; Start 09/28/16 at 23:00; Status Future Hold Famotidine (Pepcid) 40 mg QHS PO Last administered on 10/13/16 21:49; Admin Dose 40 MG; Start 09/29/16 at 21:00 Fenofibrate (Tricor) 48 mg QAM PO Last administered on 10/13/16 08:45; Admin Dose 48 MG; Start 09/29/16 at 09:00 Folic Acid (Folic Acid) 1 mg BID PO Last administered on 10/13/16 21:48; Admin Dose 1 MG; Start 09/29/16 at 09:00 Eye Lubricant (Artificial Tears Oph) 2 drop Q2H PRN BOTH EYES DRY EYES; Start 09/28/16 at 23:30 Atorvastatin Calcium (Lipitor) 40 mg DAILY@21 PO Last administered on 21:48; Admin Dose 40 MG; Start 09/29/16 at 21:00 Docusate Sodium (Colace) 100 mg Q12H PRN PO CONSTIPATION; Start 09/28/16 at 23: 30 Epoetin César (Epogen (Esrd)) 10,000 units MoWeFr@17 SC Last administered on 17:32; Admin Dose 10,000 UNITS; Start 09/30/16 at 17:00 Docusate Sodium (Colace) 100 mg BID PO Last administered on 10/13/16 08:44; Admin Dose 100 MG; Start 09/29/16 at 09:00 Senna (Senokot) 1 tab HS PO Last administered on 10/10/16 21:21; Admin Dose 1 TAB; Start 09/29/16 at 21:00 Bisacodyl (Dulcolax Supp) 10 mg DAILY PRN [place] CONSTIPATION; Start 09/29/16 at 05 :30 Magnesium Hydroxide (Milk Of Mag) 30 ml BID PRN PO CONSTIPATION Last administered on 10/04/16 08:33; Admin Dose 30 ML; Start 09/29/16 at 05:30 Gabapentin (Neurontin) 100 mg TID PO Last administered on 10/13/16 21:49; Admin Dose 100 MG; Start 10/04/16 at 13:00 Warfarin Sodium (Coumadin) 4 mg DAILY@17 PO ; Start 10/14/16 at 17:00 Cephalexin (Keflex) 250 mg Q8 PO Last administered on 10/14/16 06:39; Admin Dose 250 MG; Start 10/12/16 at 14:00 Collagenase (Santyl) 1 applic DAILY TOP Last administered on 10/13/16t 08:43; Admin Dose 1 APPLIC; Start 10/12/16 at 16:30 Carbamide Peroxide (Debrox Otic) 10 drop BID BOTH EARS ; Start 10/13/16 at 21:00 ; Stop 10/18/16 at 20:59 ARISTIDES WATKINS MD Oct 14, 2016 07:43
[2016-10-14 07:50] LABS: INR 1.06; PROTIME 13.8 Sec (12.2-14.2); PT RATIO 1.1
[2016-10-14 07:55] LABS: CALCIUM 9.3 mg/dl (8.4-10.2); CREATININE 6.82 mg/dl (0.44-1.00); PHOSPHORUS 5.2 mg/dl (2.5-4.9)
[2016-10-14] MEDS: ACCU-CHEK XX SCH (08:00)
[2016-10-14] MEDS: SEVELAMER CARBONATE 0.8 GM PKT PO SCH ×3 (08:37→17:42)
[2016-10-14] MEDS: FOLIC ACID 1 MG TAB PO SCH ×2 (08:38→20:41)
[2016-10-14] MEDS: COLLAGENASE 30 GM TUBE TOP SCH (08:38)
[2016-10-14] MEDS: HYDROCODONE/APAP (5/325) TAB PO PRN ×4 (08:38→22:37)
[2016-10-14] MEDS: GABAPENTIN 100 MG CAP PO SCH ×3 (08:38→20:41)
[2016-10-14] MEDS: FENOFIBRATE 48 MG TAB PO SCH (08:38)
[2016-10-14] MEDS: predniSONE 1 MG TAB PO SCH ×3 (08:39→20:40)
[2016-10-14] MEDS: METOPROLOL 25 MG TAB PO SCH ×2 (08:39→20:42)
[2016-10-14] MEDS: SALMETEROL/FLUTICASONE 250/50 INHA INH SCH ×2 (08:39→20:42)
[2016-10-14] MEDS: LINAGLIPTIN 5 MG TABLET PO SCH (08:39)
[2016-10-14] MEDS: DOCUSATE SODIUM 100 MG CAP PO SCH ×2 (08:39→20:42)
[2016-10-14] MEDS: CARBAMIDE PEROXIDE 6.5% 15ML OTIC BOTH EARS SCH ×2 (08:40→20:39)
--- NOTE | 2016-10-14 12:24 | CONS ---
Date/Time of Note Date/Time of Note DATE: 10/14/16 TIME: 12:21 Consult Date/Type/Reason Admit Date/Time Sep 28, 2016 at 22:05 Type of Consultation: renal Subjective Overall feeling better and looking forward to going home soon Objective Lungs clear anteriorly Abdomen soft nontender Standby assist for ambulation Vital Signs Date Time Temp Pulse Resp B/P Pulse Ox O2 Delivery O2 Flow Rate FiO2 10/14/16 07:41 98.4 79 18 146/64 96 Intake and Output 10/13/16 10/13/16 10/14/16 15:00 23:00 07:00 Intake Total 1080 ml 900 ml Output Total 1 ml Balance 1079 ml 900 ml Results/Medications Result Diagram: 10/14/16 0615 10/14/16 0615 Results 24 hrs Laboratory Tests Test 10/14/16 06:15 10/14/16 06:30 10/14/16 08:09 White Blood Count 4.9 Red Blood Count 2.91 L Hemoglobin 9.0 L Hematocrit 27.6 L Mean Corpuscular Volume 94.8 Mean Corpuscular Hemoglobin 30.9 Mean Corpuscular Hemoglobin Concent 32.6 Red Cell Distribution Width 17.2 H Platelet Count 200 Mean Platelet Volume 10.6 H Neutrophils % 49.2 Lymphocytes % 37.2 Monocytes % 10.6 Eosinophils % 1.8 Basophils % 1.0 Nucleated Red Blood Cells % 0.0 Neutrophils # 2.4 Lymphocytes # 1.8 Monocytes # 0.5 Eosinophils # 0.1 Basophils # 0.1 Nucleated Red Blood Cells # 0.0 Sodium Level 129 L Potassium Level 4.0 Chloride Level 94 L Carbon Dioxide Level 24 Anion Gap 15 Blood Urea Nitrogen 52 H Creatinine 6.82 H Glucose Level 79 Calcium Level 9.3 Phosphorus Level 5.2 H Prothrombin Time 13.8 # Prothrombin Time Ratio 1.1 INR International Normalized Ratio 1.06 Bedside Glucose 87 Medications Current Medications Sodium Biphosphate/ Sodium Phosphate (Fleet Enema) 133 ml DAILY PRN [place] CONSTIPATION; Start 09/28/16 at 23:00 Tramadol HCl (Ultram) 50 mg Q8H PRN PO PAIN Last administered on 10/12/16 14: 40; Admin Dose 50 MG; Start 09/28/16 at 23:00 Prednisone (Prednisone) 1 mg QHS PO Last administered on 10/13/16 21:49; Admin Dose 1 MG; Start 09/29/16 at 21:00 Prednisone (Prednisone) 4 mg DAILY PO Last administered on 10/14/16 08:39; Admin Dose 4 MG; Start 09/29/16 at 09:00 Salmeterol Xinafoate/ Fluticasone (Advair 250/50 Diskus) 1 inh BID INH Last administered on 10/14/16 08:39; Admin Dose 1 INH; Start 09/29/16 at 09:00 Miscellaneous Information 1 ea NOTE XX ; Start 09/28/16 at 23:00 Glucose (Glutose) 15 gm Q15M PRN PO DECREASED GLUCOSE; Start 09/28/16 at 23:00 Glucose (Glutose) 22.5 gm Q15M PRN PO DECREASED GLUCOSE; Start 09/28/16 at 23: 00 Dextrose (D50w Syringe) 25 ml Q15M PRN IV DECREASED GLUCOSE; Start 09/28/16 at 23:00 Dextrose (D50w Syringe) 50 ml Q15M PRN IV DECREASED GLUCOSE; Start 09/28/16 at 23:00 Glucagon (Glucagen) 1 mg Q15M PRN IM DECREASED GLUCOSE; Start 09/28/16 at 23:00 Glucose (Glutose) 15 gm Q15M PRN BUCCAL DECREASED GLUCOSE; Start 09/28/16 at 23 :00 Linagliptin (Tradjenta) 5 mg DAILY PO Last administered on 10/14/16 08:39; Admin Dose 5 MG; Start 09/29/16 at 09:00 Metoprolol Tartrate (Lopressor) 25 mg BID PO Last administered on 10/14/16 08: 39; Admin Dose 25 MG; Start 09/29/16 at 09:00 Acetaminophen/ Hydrocodone Bitart ([place] (5/325)) 1 tab Q6H PRN PO PAIN Last administered on 10/14/16 08:38; Admin Dose 1 TAB; Start 09/28/16 at 23:00 Acetaminophen/ Hydrocodone Bitart ([place] (5/325)) 2 tab Q6H PRN PO PAIN Last administered on 10/04/16 08:33; Admin Dose 2 TAB; Start 09/28/16 at 23:00; Status Future Hold Famotidine (Pepcid) 40 mg QHS PO Last administered on 10/13/16 21:49; Admin Dose 40 MG; Start 09/29/16 at 21:00 Fenofibrate (Tricor) 48 mg QAM PO Last administered on 10/14/16 08:38; Admin Dose 48 MG; Start 09/29/16 at 09:00 Folic Acid (Folic Acid) 1 mg BID PO Last administered on 10/14/16 08:38; Admin Dose 1 MG; Start 09/29/16 at 09:00 Eye Lubricant (Artificial Tears Oph) 2 drop Q2H PRN BOTH EYES DRY EYES; Start 09/28/16 at 23:30 Atorvastatin Calcium (Lipitor) 40 mg DAILY@21 PO Last administered on 21:48; Admin Dose 40 MG; Start 09/29/16 at 21:00 Docusate Sodium (Colace) 100 mg Q12H PRN PO CONSTIPATION; Start 09/28/16 at 23: 30 Epoetin César (Epogen (Esrd)) 10,000 units MoWeFr@17 SC Last administered on 17:32; Admin Dose 10,000 UNITS; Start 09/30/16 at 17:00 Docusate Sodium (Colace) 100 mg BID PO Last administered on 10/14/16 08:39; Admin Dose 100 MG; Start 09/29/16 at 09:00 Senna (Senokot) 1 tab HS PO Last administered on 10/10/16 21:21; Admin Dose 1 TAB; Start 09/29/16 at 21:00 Bisacodyl (Dulcolax Supp) 10 mg DAILY PRN [place] CONSTIPATION; Start 09/29/16 at 05 :30 Magnesium Hydroxide (Milk Of Mag) 30 ml BID PRN PO CONSTIPATION Last administered on 10/04/16 08:33; Admin Dose 30 ML; Start 09/29/16 at 05:30 Gabapentin (Neurontin) 100 mg TID PO Last administered on 10/14/16 08:38; Admin Dose 100 MG; Start 10/04/16 at 13:00 Warfarin Sodium (Coumadin) 4 mg DAILY@17 PO ; Start 10/14/16 at 17:00 Cephalexin (Keflex) 250 mg Q8 PO Last administered on 10/14/16 06:39; Admin Dose 250 MG; Start 10/12/16 at 14:00 Collagenase (Santyl) 1 applic DAILY TOP Last administered on 10/14/16 08:38; Admin Dose 1 APPLIC; Start 10/12/16 at 16:30 Carbamide Peroxide (Debrox Otic) 10 drop BID BOTH EARS Last administered on 08:40; Admin Dose 10 DROP; Start 10/13/16 at 21:00; Stop 10/18/16 at 20: 59 Assessment/Plan Additional Assessment/Plan Rehab- C2 fracture and BHT Continue rehab program Wound- wound care. offloading, and customized [place] collar. She reports less discomfort with new collar pain syndrome- Pain controlled End-stage renal disease-dialysis per internal medicine/nephrology. Dysphagia-mechanical soft diet per ST. Maintain aspiration precautions. Continue ST. CAD status post stent. Continue medical management. Sarcoidosis. On steroids per internal medicine/pulmonary. Diabetes mellitus type 2 with diabetic polyneuropathy. Blood sugars controlled, continue current management. Continue gabapentin. Hypertension. BP controlled. Continue current management. Chronic atrial fibrillation. Rate controlled. Continue medical management per internal medicine/cardiology. COPD. Continue to monitor pulmonary status, stable. Continue breathing treatments. Anemia of chronic disease. On epogen per nephrology/internal medicine. Monitor hemoglobin/hematocrit. Functional Impact of Comorbidities- the posterior scalp wound is affecting brace use, however patient is required to wear brace per NS, given the cervical fracture. Specialized [place] collar in place. SYDNEY ROGERS MD Oct 14, 2016 12:23
--- NOTE | 2016-10-14 16:32 | PN ---
Date/Time of Note Date/Time of Note DATE: 10/14/16 TIME: 16:28 Assessment/Plan VTE Prophylaxis VTE Prophylaxis Intervention: other Lines/Catheters IV Catheter Type (from [facility]): [facility] Urinary Cath still in place: No Assessment/Plan Problems: (1) Atrial fibrillation Status: Chronic Comment: Rate is controlled and resuming anticoagulation Qualifiers: Atrial fibrillation type: chronic Qualified Code: I48.2 - Chronic atrial fibrillation (2) COPD (chronic obstructive pulmonary disease) Status: Chronic Comment: Stable on therapy Qualifiers: COPD type: emphysema Emphysema type: panlobular Qualified Code: J43.1 - Panlobular emphysema (3) Sarcoidosis Status: Chronic Comment: on steroids without activity (4) ESRD (end stage renal disease) on dialysis Status: Chronic Comment: Continue CHD TIW (5) Dens fracture Status: Acute Comment: Hard collar for 4 more more weeks Qualifiers: Encounter type: subsequent encounter Fracture healing: with routine healing Qualified Code: S12.100D - Dens fracture, with routine healing, subsequent encounter Subjective 24 Hr Interval Summary Free Text/Dictation Patient reports doing well Constitutional: no complaints Respiratory: no complaints Cardiovascular: no complaints Gastrointestinal: no complaints Genitourinary: no complaints Exam/Review of Systems Vital Signs Vitals Vital Signs Date Time Temp Pulse Resp B/P Pulse Ox O2 Delivery O2 Flow Rate FiO2 10/14/16 16:21 86 10/14/16 16:20 18 10/14/16 07:41 98.4 146/64 96 Intake and Output 10/13/16 10/13/16 10/14/16 15:00 23:00 07:00 Intake Total 1080 ml 900 ml Output Total 1 ml Balance 1079 ml 900 ml Exam Constitutional: alert, oriented Neck: other (hard collar) Respiratory: clear to auscultation, normal air movement Cardiovascular: nl pulses, regular rate and rhythm Gastrointestinal: nl liver, spleen, non-tender, soft Results Result Diagram: 10/14/16 0615 10/14/16 0615 Results 24 hrs Laboratory Tests Test 10/14/16 06:15 10/14/16 06:30 10/14/16 08:09 White Blood Count 4.9 Red Blood Count 2.91 L Hemoglobin 9.0 L Hematocrit 27.6 L Mean Corpuscular Volume 94.8 Mean Corpuscular Hemoglobin 30.9 Mean Corpuscular Hemoglobin Concent 32.6 Red Cell Distribution Width 17.2 H Platelet Count 200 Mean Platelet Volume 10.6 H Neutrophils % 49.2 Lymphocytes % 37.2 Monocytes % 10.6 Eosinophils % 1.8 Basophils % 1.0 Nucleated Red Blood Cells % 0.0 Neutrophils # 2.4 Lymphocytes # 1.8 Monocytes # 0.5 Eosinophils # 0.1 Basophils # 0.1 Nucleated Red Blood Cells # 0.0 Sodium Level 129 L Potassium Level 4.0 Chloride Level 94 L Carbon Dioxide Level 24 Anion Gap 15 Blood Urea Nitrogen 52 H Creatinine 6.82 H Glucose Level 79 Calcium Level 9.3 Phosphorus Level 5.2 H Prothrombin Time 13.8 # Prothrombin Time Ratio 1.1 INR International Normalized Ratio 1.06 Bedside Glucose 87 Medications Medications Current Medications Sodium Biphosphate/ Sodium Phosphate (Fleet Enema) 133 ml DAILY PRN [place] CONSTIPATION; Start 09/28/16 at 23:00 Tramadol HCl (Ultram) 50 mg Q8H PRN PO PAIN Last administered on 10/12/16 14: 40; Admin Dose 50 MG; Start 09/28/16 at 23:00 Prednisone (Prednisone) 1 mg QHS PO Last administered on 10/13/16 21:49; Admin Dose 1 MG; Start 09/29/16 at 21:00 Prednisone (Prednisone) 4 mg DAILY PO Last administered on 10/14/16 08:39; Admin Dose 4 MG; Start 09/29/16 at 09:00 Salmeterol Xinafoate/ Fluticasone (Advair 250/50 Diskus) 1 inh BID INH Last administered on 10/14/16 08:39; Admin Dose 1 INH; Start 09/29/16 at 09:00 Miscellaneous Information 1 ea NOTE XX ; Start 09/28/16 at 23:00 Glucose (Glutose) 15 gm Q15M PRN PO DECREASED GLUCOSE; Start 09/28/16 at 23:00 Glucose (Glutose) 22.5 gm Q15M PRN PO DECREASED GLUCOSE; Start 09/28/16 at 23: 00 Dextrose (D50w Syringe) 25 ml Q15M PRN IV DECREASED GLUCOSE; Start 09/28/16 at 23:00 Dextrose (D50w Syringe) 50 ml Q15M PRN IV DECREASED GLUCOSE; Start 09/28/16 at 23:00 Glucagon (Glucagen) 1 mg Q15M PRN IM DECREASED GLUCOSE; Start 09/28/16 at 23:00 Glucose (Glutose) 15 gm Q15M PRN BUCCAL DECREASED GLUCOSE; Start 09/28/16 at 23 :00 Linagliptin (Tradjenta) 5 mg DAILY PO Last administered on 10/14/16 08:39; Admin Dose 5 MG; Start 09/29/16 at 09:00 Metoprolol Tartrate (Lopressor) 25 mg BID PO Last administered on 10/14/16 08: 39; Admin Dose 25 MG; Start 09/29/16 at 09:00 Acetaminophen/ Hydrocodone Bitart ([place] (5/325)) 1 tab Q6H PRN PO PAIN Last administered on 10/14/16 13:01; Admin Dose 1 TAB; Start 09/28/16 at 23:00 Acetaminophen/ Hydrocodone Bitart ([place] (5/325)) 2 tab Q6H PRN PO PAIN Last administered on 10/04/16 08:33; Admin Dose 2 TAB; Start 09/28/16 at 23:00; Status Future Hold Famotidine (Pepcid) 40 mg QHS PO Last administered on 10/13/16 21:49; Admin Dose 40 MG; Start 09/29/16 at 21:00 Fenofibrate (Tricor) 48 mg QAM PO Last administered on 10/14/16 08:38; Admin Dose 48 MG; Start 09/29/16 at 09:00 Folic Acid (Folic Acid) 1 mg BID PO Last administered on 10/14/16 08:38; Admin Dose 1 MG; Start 09/29/16 at 09:00 Eye Lubricant (Artificial Tears Oph) 2 drop Q2H PRN BOTH EYES DRY EYES; Start 09/28/16 at 23:30 Atorvastatin Calcium (Lipitor) 40 mg DAILY@21 PO Last administered on 21:48; Admin Dose 40 MG; Start 09/29/16 at 21:00 Docusate Sodium (Colace) 100 mg Q12H PRN PO CONSTIPATION; Start 09/28/16 at 23: 30 Epoetin César (Epogen (Esrd)) 10,000 units MoWeFr@17 SC Last administered on 17:32; Admin Dose 10,000 UNITS; Start 09/30/16 at 17:00 Docusate Sodium (Colace) 100 mg BID PO Last administered on 10/14/16 08:39; Admin Dose 100 MG; Start 09/29/16 at 09:00 Senna (Senokot) 1 tab HS PO Last administered on 10/10/16 21:21; Admin Dose 1 TAB; Start 09/29/16 at 21:00 Bisacodyl (Dulcolax Supp) 10 mg DAILY PRN [place] CONSTIPATION; Start 09/29/16 at 05 :30 Magnesium Hydroxide (Milk Of Mag) 30 ml BID PRN PO CONSTIPATION Last administered on 10/04/16 08:33; Admin Dose 30 ML; Start 09/29/16 at 05:30 Gabapentin (Neurontin) 100 mg TID PO Last administered on 10/14/16 13:01; Admin Dose 100 MG; Start 10/04/16 at 13:00 Warfarin Sodium (Coumadin) 4 mg DAILY@17 PO ; Start 10/14/16 at 17:00 Cephalexin (Keflex) 250 mg Q8 PO Last administered on 10/14/16 06:39; Admin Dose 250 MG; Start 10/12/16 at 14:00 Collagenase (Santyl) 1 applic DAILY TOP Last administered on 10/14/16 08:38; Admin Dose 1 APPLIC; Start 10/12/16 at 16:30 Carbamide Peroxide (Debrox Otic) 10 drop BID BOTH EARS Last administered on 08:40; Admin Dose 10 DROP; Start 10/13/16 at 21:00; Stop 10/18/16 at 20: 59 TOMER GARCIA MD Oct 14, 2016 16:32
[2016-10-14] MEDS: EPOETIN 10000 UNITS/1 ML INJ (ESRD) SC SCH (17:41)
[2016-10-14] MEDS: WARFARIN 2 MG TAB PO SCH (17:42)
[2016-10-14] MEDS: ATORVASTATIN 40 MG TAB PO SCH (20:40)
[2016-10-14] MEDS: FAMOTIDINE 20 MG TAB PO SCH (20:41)
[2016-10-14] MEDS: SENNA TAB PO SCH (20:42)
[2016-10-15] MEDS: ZOLPIDEM 5 MG TAB PO PRN ×2 (00:33→22:09)
[2016-10-15] MEDS: CEPHALEXIN 250 MG CAP PO SCH ×3 (06:18→22:09)
[2016-10-15] MEDS: ACCU-CHEK XX SCH (07:05)
[2016-10-15 07:30] VITALS: BP 144/71; RESP 18
[2016-10-15 08:54] LABS: HEPATITIS B CORE ANTIBODY NEGATIVE (NEGATIVE)
[2016-10-15] MEDS: SEVELAMER CARBONATE 0.8 GM PKT PO SCH ×3 (08:56→17:37)
[2016-10-15] MEDS: LINAGLIPTIN 5 MG TABLET PO SCH (08:57)
[2016-10-15] MEDS: CARBAMIDE PEROXIDE 6.5% 15ML OTIC BOTH EARS SCH ×2 (08:57→20:13)
[2016-10-15] MEDS: COLLAGENASE 30 GM TUBE TOP SCH (08:57)
[2016-10-15] MEDS: predniSONE 1 MG TAB PO SCH ×3 (08:57→20:10)
[2016-10-15] MEDS: SALMETEROL/FLUTICASONE 250/50 INHA INH SCH ×2 (08:57→20:13)
[2016-10-15] MEDS: FENOFIBRATE 48 MG TAB PO SCH (08:57)
[2016-10-15] MEDS: FOLIC ACID 1 MG TAB PO SCH ×2 (08:58→20:10)
[2016-10-15] MEDS: METOPROLOL 25 MG TAB PO SCH ×2 (08:58→20:10)
[2016-10-15] MEDS: GABAPENTIN 100 MG CAP PO SCH ×3 (08:58→20:10)
[2016-10-15] MEDS: DOCUSATE SODIUM 100 MG CAP PO SCH ×2 (09:00→20:10)
--- NOTE | 2016-10-15 10:44 | CONS ---
Date/Time of Note Date/Time of Note DATE: 10/15/16 TIME: 10:43 Consult Date/Type/Reason Admit Date/Time Sep 28, 2016 at 22:05 Type of Consultation: renal Subjective Overall improved Objective Lungs clear anteriorly Abdomen soft Standby assist ambulation Vital Signs Date Time Temp Pulse Resp B/P Pulse Ox O2 Delivery O2 Flow Rate FiO2 10/14/16 20:19 98.7 76 18 146/64 92 Intake and Output 10/14/16 10/14/16 10/15/16 15:00 23:00 07:00 Intake Total 660 ml 740 ml 700 ml Output Total 180 ml 2500 ml Balance 480 ml -1760 ml 700 ml Results/Medications Result Diagram: 10/14/1615 10/14/16 0615 Results 24 hrs Laboratory Tests Test 10/15/16 06:00 10/15/16 06:40 10/15/16 07:41 Hepatitis B Surface Antibody NEGATIVE Hepatitis B Surface Antigen NEGATIVE Hepatitis B Core Total Antibody NEGATIVE Hepatitis C Antibody NEGATIVE Bedside Glucose 84 Medications Current Medications Sodium Biphosphate/ Sodium Phosphate (Fleet Enema) 133 ml DAILY PRN [place] CONSTIPATION; Start 09/28/16 at 23:00 Tramadol HCl (Ultram) 50 mg Q8H PRN PO PAIN Last administered on 10/12/16 14: 40; Admin Dose 50 MG; Start 09/28/16 at 23:00 Prednisone (Prednisone) 1 mg QHS PO Last administered on 10/14/16 20:40; Admin Dose 1 MG; Start 09/29/16 at 21:00 Prednisone (Prednisone) 4 mg DAILY PO Last administered on 10/15/16 08:57; Admin Dose 4 MG; Start 09/29/16 at 09:00 Salmeterol Xinafoate/ Fluticasone (Advair 250/50 Diskus) 1 inh BID INH Last administered on 10/15/16 08:57; Admin Dose 1 INH; Start 09/29/16 at 09:00 Miscellaneous Information 1 ea NOTE XX ; Start 09/28/16 at 23:00 Glucose (Glutose) 15 gm Q15M PRN PO DECREASED GLUCOSE; Start 09/28/16 at 23:00 Glucose (Glutose) 22.5 gm Q15M PRN PO DECREASED GLUCOSE; Start 09/28/16 at 23: 00 Dextrose (D50w Syringe) 25 ml Q15M PRN IV DECREASED GLUCOSE; Start 09/28/16 at 23:00 Dextrose (D50w Syringe) 50 ml Q15M PRN IV DECREASED GLUCOSE; Start 09/28/16 at 23:00 Glucagon (Glucagen) 1 mg Q15M PRN IM DECREASED GLUCOSE; Start 09/28/16 at 23:00 Glucose (Glutose) 15 gm Q15M PRN BUCCAL DECREASED GLUCOSE; Start 09/28/16 at 23 :00 Linagliptin (Tradjenta) 5 mg DAILY PO Last administered on 10/15/16 08:57; Admin Dose 5 MG; Start 09/29/16 at 09:00 Metoprolol Tartrate (Lopressor) 25 mg BID PO Last administered on 10/15/16 08: 58; Admin Dose 25 MG; Start 09/29/16 at 09:00 Acetaminophen/ Hydrocodone Bitart ([place] (5/325)) 1 tab Q6H PRN PO PAIN Last administered on 10/14/16 22:37; Admin Dose 1 TAB; Start 09/28/16 at 23:00 Acetaminophen/ Hydrocodone Bitart ([place] (5/325)) 2 tab Q6H PRN PO PAIN Last administered on 10/04/16 08:33; Admin Dose 2 TAB; Start 09/28/16 at 23:00; Status Future Hold Famotidine (Pepcid) 40 mg QHS PO Last administered on 10/14/16 20:41; Admin Dose 40 MG; Start 09/29/16 at 21:00 Fenofibrate (Tricor) 48 mg QAM PO Last administered on 10/15/16 08:57; Admin Dose 48 MG; Start 09/29/16 at 09:00 Folic Acid (Folic Acid) 1 mg BID PO Last administered on 10/15/16 08:58; Admin Dose 1 MG; Start 09/29/16 at 09:00 Eye Lubricant (Artificial Tears Oph) 2 drop Q2H PRN BOTH EYES DRY EYES; Start 09/28/16 at 23:30 Atorvastatin Calcium (Lipitor) 40 mg DAILY@21 PO Last administered on 20:40; Admin Dose 40 MG; Start 09/29/16 at 21:00 Docusate Sodium (Colace) 100 mg Q12H PRN PO CONSTIPATION; Start 09/28/16 at 23: 30 Epoetin César (Epogen (Esrd)) 10,000 units MoWeFr@17 SC Last administered on 17:41; Admin Dose 10,000 UNITS; Start 09/30/16 at 17:00 Docusate Sodium (Colace) 100 mg BID PO Last administered on 10/14/16 08:39; Admin Dose 100 MG; Start 09/29/16 at 09:00 Senna (Senokot) 1 tab HS PO Last administered on 10/10/16 21:21; Admin Dose 1 TAB; Start 09/29/16 at 21:00 Bisacodyl (Dulcolax Supp) 10 mg DAILY PRN [place] CONSTIPATION; Start 09/29/16 at 05 :30 Magnesium Hydroxide (Milk Of Mag) 30 ml BID PRN PO CONSTIPATION Last administered on 10/04/16 08:33; Admin Dose 30 ML; Start 09/29/16 at 05:30 Gabapentin (Neurontin) 100 mg TID PO Last administered on 10/15/16 08:58; Admin Dose 100 MG; Start 10/04/16 at 13:00 Warfarin Sodium (Coumadin) 4 mg DAILY@17 PO Last administered on 10/14/16 17: 42; Admin Dose 4 MG; Start 10/14/16 at 17:00 Cephalexin (Keflex) 250 mg Q8 PO Last administered on 10/15/16 06:18; Admin Dose 250 MG; Start 10/12/16 at 14:00 Collagenase (Santyl) 1 applic DAILY TOP Last administered on 10/15/16 08:57; Admin Dose 1 APPLIC; Start 10/12/16 at 16:30 Carbamide Peroxide (Debrox Otic) 10 drop BID BOTH EARS Last administered on 10/15 08:57; Admin Dose 10 DROP; Start 10/13/16 at 21:00; Stop 10/18/16 at 20:59 Assessment/Plan Additional Assessment/Plan Rehab- C2 fracture and BHT Continue rehab program and family training, with goal of discharge this upcoming week Wound- wound care. offloading, and customized [place] collar. She is tolerating collar pain syndrome- Pain controlled End-stage renal disease-dialysis per internal medicine/nephrology. Dysphagia-mechanical soft diet per ST. Maintain aspiration precautions. Continue ST. CAD status post stent. Continue medical management. Sarcoidosis. On steroids per internal medicine/pulmonary. Diabetes mellitus type 2 with diabetic polyneuropathy. Blood sugars controlled, continue current management. Continue gabapentin. Hypertension. BP controlled. Continue current management. Chronic atrial fibrillation. Rate controlled. Continue medical management per internal medicine/cardiology. COPD. Continue to monitor pulmonary status, stable. Continue breathing treatments. Anemia of chronic disease. On epogen per nephrology/internal medicine. Monitor hemoglobin/hematocrit. SYDNEY ROGERS MD Oct 15, 2016 10:44
--- NOTE | 2016-10-15 11:03 | CONS ---
Date/Time of Note Date/Time of Note DATE: 10/15/16 TIME: 11:01 Assessment/Plan Assessment/Plan Additional Assessment/Plan 1. Stable post cx spine fx 2. CKD, next HD planned monday 3. BP controlled 4. Diabetic control is acceptable Consultation Date/Type/Reason Admit Date/Time Sep 28, 2016 at 22:05 Type of Consultation: renal Detailed Summary Respiratory: cough, No shortness of breath Cardiovascular: No chest pain Gastrointestinal: no complaints Genitourinary: no complaints Musculoskeletal: bone/joint pain (mild neck discomfort) Exam/Review of Systems Vital Signs Vitals Vital Signs Date Time Temp Pulse Resp B/P Pulse Ox O2 Delivery O2 Flow Rate FiO2 10/14/16 20:19 98.7 76 18 146/64 92 Intake and Output 10/14/16 10/14/16 10/15/16 15:00 23:00 07:00 Intake Total 660 ml 740 ml 700 ml Output Total 180 ml 2500 ml Balance 480 ml -1760 ml 700 ml Exam Neck: No jvd Respiratory: clear to auscultation Cardiovascular: regular rate and rhythm Gastrointestinal: soft Extremities: No edema (and no calf tend) Results Result Diagram: 10/14/1615 10/14/16 0615 Results 24 hrs Laboratory Tests Test 10/15/16 06:00 10/15/16 06:40 10/15/16 07:41 Hepatitis B Surface Antibody NEGATIVE Hepatitis B Surface Antigen NEGATIVE Hepatitis B Core Total Antibody NEGATIVE Hepatitis C Antibody NEGATIVE Bedside Glucose 84 Medications Medications Current Medications Sodium Biphosphate/ Sodium Phosphate (Fleet Enema) 133 ml DAILY PRN [place] CONSTIPATION; Start 09/28/16 at 23:00 Tramadol HCl (Ultram) 50 mg Q8H PRN PO PAIN Last administered on 10/12/16 14: 40; Admin Dose 50 MG; Start 09/28/16 at 23:00 Prednisone (Prednisone) 1 mg QHS PO Last administered on 10/14/16 20:40; Admin Dose 1 MG; Start 09/29/16 at 21:00 Prednisone (Prednisone) 4 mg DAILY PO Last administered on 10/15/16 08:57; Admin Dose 4 MG; Start 09/29/16 at 09:00 Salmeterol Xinafoate/ Fluticasone (Advair 250/50 Diskus) 1 inh BID INH Last administered on 10/15/16 08:57; Admin Dose 1 INH; Start 09/29/16 at 09:00 Miscellaneous Information 1 ea NOTE XX ; Start 09/28/16 at 23:00 Glucose (Glutose) 15 gm Q15M PRN PO DECREASED GLUCOSE; Start 09/28/16 at 23:00 Glucose (Glutose) 22.5 gm Q15M PRN PO DECREASED GLUCOSE; Start 09/28/16 at 23: 00 Dextrose (D50w Syringe) 25 ml Q15M PRN IV DECREASED GLUCOSE; Start 09/28/16 at 23:00 Dextrose (D50w Syringe) 50 ml Q15M PRN IV DECREASED GLUCOSE; Start 09/28/16 at 23:00 Glucagon (Glucagen) 1 mg Q15M PRN IM DECREASED GLUCOSE; Start 09/28/16 at 23:00 Glucose (Glutose) 15 gm Q15M PRN BUCCAL DECREASED GLUCOSE; Start 09/28/16 at 23 :00 Linagliptin (Tradjenta) 5 mg DAILY PO Last administered on 10/15/16 08:57; Admin Dose 5 MG; Start 09/29/16 at 09:00 Metoprolol Tartrate (Lopressor) 25 mg BID PO Last administered on 10/15/16 08: 58; Admin Dose 25 MG; Start 09/29/16 at 09:00 Acetaminophen/ Hydrocodone Bitart ([place] (5/325)) 1 tab Q6H PRN PO PAIN Last administered on 10/14/16 22:37; Admin Dose 1 TAB; Start 09/28/16 at 23:00 Acetaminophen/ Hydrocodone Bitart ([place] (5/325)) 2 tab Q6H PRN PO PAIN Last administered on 10/04/16 08:33; Admin Dose 2 TAB; Start 09/28/16 at 23:00; Status Future Hold Famotidine (Pepcid) 40 mg QHS PO Last administered on 10/14/16 20:41; Admin Dose 40 MG; Start 09/29/16 at 21:00 Fenofibrate (Tricor) 48 mg QAM PO Last administered on 10/15/16 08:57; Admin Dose 48 MG; Start 09/29/16 at 09:00 Folic Acid (Folic Acid) 1 mg BID PO Last administered on 10/15/16 08:58; Admin Dose 1 MG; Start 09/29/16 at 09:00 Eye Lubricant (Artificial Tears Oph) 2 drop Q2H PRN BOTH EYES DRY EYES; Start 09/28/16 at 23:30 Atorvastatin Calcium (Lipitor) 40 mg DAILY@21 PO Last administered on 20:40; Admin Dose 40 MG; Start 09/29/16 at 21:00 Docusate Sodium (Colace) 100 mg Q12H PRN PO CONSTIPATION; Start 09/28/16 at 23: 30 Epoetin César (Epogen (Esrd)) 10,000 units MoWeFr@17 SC Last administered on 17:41; Admin Dose 10,000 UNITS; Start 09/30/16 at 17:00 Docusate Sodium (Colace) 100 mg BID PO Last administered on 10/14/16 08:39; Admin Dose 100 MG; Start 09/29/16 at 09:00 Senna (Senokot) 1 tab HS PO Last administered on 10/10/16 21:21; Admin Dose 1 TAB; Start 09/29/16 at 21:00 Bisacodyl (Dulcolax Supp) 10 mg DAILY PRN [place] CONSTIPATION; Start 09/29/16 at 05 :30 Magnesium Hydroxide (Milk Of Mag) 30 ml BID PRN PO CONSTIPATION Last administered on 10/04/16 08:33; Admin Dose 30 ML; Start 09/29/16 at 05:30 Gabapentin (Neurontin) 100 mg TID PO Last administered on 10/15/16 08:58; Admin Dose 100 MG; Start 10/04/16 at 13:00 Warfarin Sodium (Coumadin) 4 mg DAILY@17 PO Last administered on 10/14/16 17: 42; Admin Dose 4 MG; Start 10/14/16 at 17:00 Cephalexin (Keflex) 250 mg Q8 PO Last administered on 10/15/16 06:18; Admin Dose 250 MG; Start 10/12/16 at 14:00 Collagenase (Santyl) 1 applic DAILY TOP Last administered on 10/15/16 08:57; Admin Dose 1 APPLIC; Start 10/12/16 at 16:30 Carbamide Peroxide (Debrox Otic) 10 drop BID BOTH EARS Last administered on 10/15 08:57; Admin Dose 10 DROP; Start 10/13/16 at 21:00; Stop 10/18/16 at 20:59 ARISTIDES WATKINS MD Oct 15, 2016 11:03
--- NOTE | 2016-10-15 13:05 | PN ---
Date/Time of Note Date/Time of Note DATE: 10/15/16 TIME: 13:00 Assessment/Plan VTE Prophylaxis VTE Prophylaxis Intervention: other (warfarin) Lines/Catheters IV Catheter Type (from [facility]): [facility]ine [facility] Urinary Cath still in place: No Assessment/Plan Problems: (1) COPD (chronic obstructive pulmonary disease) Status: Chronic Comment: Doing well, on chronic steroids for sarcoidosis which also helps COPD Qualifiers: COPD type: emphysema Emphysema type: panlobular Qualified Code: J43.1 - Panlobular emphysema (2) Sarcoidosis Status: Chronic Comment: Stable, cont. steroid treatment (3) ESRD (end stage renal disease) on dialysis Status: Chronic Comment: Cont. HD per renal (4) Diabetes mellitus type 2 in obese Status: Chronic Comment: Excellent glycemic control. Cont. current DM regimen (5) Hypertension associated with chronic kidney disease due to type 2 diabetes mellitus Status: Chronic Comment: Good BP control. Cont. current regimen. (6) Dens fracture Status: Acute Comment: Healing. Nearly ready to d/c from rehab in the coming week. Will likely be ready to d/c c-collar in the weeks to come. Qualifiers: Encounter type: subsequent encounter Fracture healing: with routine healing Qualified Code: S12.100D - Dens fracture, with routine healing, subsequent encounter Subjective 24 Hr Interval Summary Constitutional: improved, no complaints Respiratory: no complaints Cardiovascular: no complaints Gastrointestinal: no complaints Genitourinary: no complaints Musculoskeletal: bone/joint pain (R shoulder and trapezius occasionally but otherwise no complaints. ) Neurologic: no complaints Exam/Review of Systems Vital Signs Vitals VS - Last 72 Hours, by Label Date Time Temp Pulse Resp B/P Pulse Ox O2 Delivery O2 Flow Rate FiO2 10/15/16 07:30 98.0 71 18 144/71 95 10/14/16 20:19 98.7 76 18 146/64 92 10/14/16 16:21 86 10/14/16 16:20 85 18 10/14/16 15:50 85 10/14/16 15:20 86 10/14/16 14:50 89 10/14/16 14:20 300 10/14/16 13:50 83 10/14/16 13:20 85 10/14/16 13:20 80 16 10/14/16 07:41 98.4 79 18 146/64 96 10/13/16 19:21 97.8 80 18 158/67 98 10/13/16 07:30 98.7 80 18 143/65 95 10/12/16 20:00 98.9 68 18 148/65 95 10/12/16 17:10 85 16 10/12/16 17:05 88 10/12/16 17:05 116/73 10/12/16 16:40 83 10/12/16 16:10 82 10/12/16 15:40 83 10/12/16 15:10 89 10/12/16 14:40 83 10/12/16 14:10 85 18 10/12/16 14:10 85 Vital Signs Date Time Temp Pulse Resp B/P Pulse Ox O2 Delivery O2 Flow Rate FiO2 10/15/16 07:30 98.0 71 18 144/71 95 Intake and Output 10/14/16 10/14/16 10/15/16 15:00 23:00 07:00 Intake Total 660 ml 740 ml 700 ml Output Total 180 ml 2500 ml Balance 480 ml -1760 ml 700 ml Exam Constitutional: alert, obese, oriented Neck: other (c-collar) Respiratory: clear to auscultation, normal air movement Cardiovascular: edema (2+ BLE), nl pulses, regular rate and rhythm, No murmurs/extra sounds, No rub Gastrointestinal: bowel sounds, nl liver, spleen, non-tender, soft, No mass, No rebound or guarding Musculoskeletal: nl extremities to inspection Extremities: edema (2+ BLE), normal pulses, No clubbing, No cyanosis 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: 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 COORDINATOR II-XII 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, nl mental status, nl speech, nl strength Additional Comments Bedside Glucose - 72 Hours Test 10/12/16 17:27 10/12/16 20:47 10/13/16 08:19 10/14/16 08:09 Bedside Glucose 147mg/dL (70-220) 106mg/dL (70-220) 91mg/dL (70-220) 87mg/dL (70-220) Test 10/15/16 07:41 Bedside Glucose 84mg/dL (70-220) Results Result Diagram: 10/14/16 0615 10/14/16 0615 Results 24 hrs Laboratory Tests Test 10/15/16 06:00 10/15/16 06:40 10/15/16 07:41 Hepatitis B Surface Antibody NEGATIVE Hepatitis B Surface Antigen NEGATIVE Hepatitis B Core Total Antibody NEGATIVE Hepatitis C Antibody NEGATIVE Bedside Glucose 84 Medications Medications Current Medications Sodium Biphosphate/ Sodium Phosphate (Fleet Enema) 133 ml DAILY PRN [place] CONSTIPATION; Start 09/28/16 at 23:00 Tramadol HCl (Ultram) 50 mg Q8H PRN PO PAIN Last administered on 10/12/16 14: 40; Admin Dose 50 MG; Start 09/28/16 at 23:00 Prednisone (Prednisone) 1 mg QHS PO Last administered on 10/14/16 20:40; Admin Dose 1 MG; Start 09/29/16 at 21:00 Prednisone (Prednisone) 4 mg DAILY PO Last administered on 10/15/16 08:57; Admin Dose 4 MG; Start 09/29/16 at 09:00 Salmeterol Xinafoate/ Fluticasone (Advair 250/50 Diskus) 1 inh BID INH Last administered on 10/15/16 08:57; Admin Dose 1 INH; Start 09/29/16 at 09:00 Miscellaneous Information 1 ea NOTE XX ; Start 09/28/16 at 23:00 Glucose (Glutose) 15 gm Q15M PRN PO DECREASED GLUCOSE; Start 09/28/16 at 23:00 Glucose (Glutose) 22.5 gm Q15M PRN PO DECREASED GLUCOSE; Start 09/28/16 at 23: 00 Dextrose (D50w Syringe) 25 ml Q15M PRN IV DECREASED GLUCOSE; Start 09/28/16 at 23:00 Dextrose (D50w Syringe) 50 ml Q15M PRN IV DECREASED GLUCOSE; Start 09/28/16 at 23:00 Glucagon (Glucagen) 1 mg Q15M PRN IM DECREASED GLUCOSE; Start 09/28/16 at 23:00 Glucose (Glutose) 15 gm Q15M PRN BUCCAL DECREASED GLUCOSE; Start 09/28/16 at 23 :00 Linagliptin (Tradjenta) 5 mg DAILY PO Last administered on 10/15/16 08:57; Admin Dose 5 MG; Start 09/29/16 at 09:00 Metoprolol Tartrate (Lopressor) 25 mg BID PO Last administered on 10/15/16 08: 58; Admin Dose 25 MG; Start 09/29/16 at 09:00 Acetaminophen/ Hydrocodone Bitart ([place] (5/325)) 1 tab Q6H PRN PO PAIN Last administered on 10/14/16 22:37; Admin Dose 1 TAB; Start 09/28/16 at 23:00 Acetaminophen/ Hydrocodone Bitart ([place] (5/325)) 2 tab Q6H PRN PO PAIN Last administered on 10/04/16 08:33; Admin Dose 2 TAB; Start 09/28/16 at 23:00; Status Future Hold Famotidine (Pepcid) 40 mg QHS PO Last administered on 10/14/16 20:41; Admin Dose 40 MG; Start 09/29/16 at 21:00 Fenofibrate (Tricor) 48 mg QAM PO Last administered on 10/15/16 08:57; Admin Dose 48 MG; Start 09/29/16 at 09:00 Folic Acid (Folic Acid) 1 mg BID PO Last administered on 10/15/16 08:58; Admin Dose 1 MG; Start 09/29/16 at 09:00 Eye Lubricant (Artificial Tears Oph) 2 drop Q2H PRN BOTH EYES DRY EYES; Start 09/28/16 at 23:30 Atorvastatin Calcium (Lipitor) 40 mg DAILY@21 PO Last administered on 20:40; Admin Dose 40 MG; Start 09/29/16 at 21:00 Docusate Sodium (Colace) 100 mg Q12H PRN PO CONSTIPATION; Start 09/28/16 at 23: 30 Epoetin César (Epogen (Esrd)) 10,000 units MoWeFr@17 SC Last administered on 17:41; Admin Dose 10,000 UNITS; Start 09/30/16 at 17:00 Docusate Sodium (Colace) 100 mg BID PO Last administered on 10/14/16 08:39; Admin Dose 100 MG; Start 09/29/16 at 09:00 Senna (Senokot) 1 tab HS PO Last administered on 10/10/16 21:21; Admin Dose 1 TAB; Start 09/29/16 at 21:00 Bisacodyl (Dulcolax Supp) 10 mg DAILY PRN [place] CONSTIPATION; Start 09/29/16 at 05 :30 Magnesium Hydroxide (Milk Of Mag) 30 ml BID PRN PO CONSTIPATION Last administered on 10/04/16 08:33; Admin Dose 30 ML; Start 09/29/16 at 05:30 Gabapentin (Neurontin) 100 mg TID PO Last administered on 10/15/16 12:45; Admin Dose 100 MG; Start 10/04/16 at 13:00 Warfarin Sodium (Coumadin) 4 mg DAILY@17 PO Last administered on 10/14/16 17: 42; Admin Dose 4 MG; Start 10/14/16 at 17:00 Cephalexin (Keflex) 250 mg Q8 PO Last administered on 10/15/16 06:18; Admin Dose 250 MG; Start 10/12/16 at 14:00 Collagenase (Santyl) 1 applic DAILY TOP Last administered on 10/15/16 08:57; Admin Dose 1 APPLIC; Start 10/12/16 at 16:30 Carbamide Peroxide (Debrox Otic) 10 drop BID BOTH EARS Last administered on 10/15 08:57; Admin Dose 10 DROP; Start 10/13/16 at 21:00; Stop 10/18/16 at 20:59 SOBEIDA ENRIQUEZ MD Oct 15, 2016 13:05
[2016-10-15] MEDS: HYDROCODONE/APAP (5/325) TAB PO PRN ×2 (13:57→20:11)
[2016-10-15] MEDS: WARFARIN 2 MG TAB PO SCH (17:40)
[2016-10-15 19:50] VITALS: BP 145/65; RESP 20
[2016-10-15] MEDS: FAMOTIDINE 20 MG TAB PO SCH (20:09)
[2016-10-15] MEDS: ATORVASTATIN 40 MG TAB PO SCH (20:10)
[2016-10-15] MEDS: SENNA TAB PO SCH (20:10)
[2016-10-16] MEDS: CEPHALEXIN 250 MG CAP PO SCH ×3 (06:13→21:13)
[2016-10-16] MEDS: ACCU-CHEK XX SCH (07:05)
[2016-10-16] MEDS: CARBAMIDE PEROXIDE 6.5% 15ML OTIC BOTH EARS SCH ×2 (08:35→21:14)
[2016-10-16] MEDS: SEVELAMER CARBONATE 0.8 GM PKT PO SCH ×3 (08:35→17:10)
[2016-10-16] MEDS: SALMETEROL/FLUTICASONE 250/50 INHA INH SCH ×2 (08:35→21:14)
[2016-10-16] MEDS: DOCUSATE SODIUM 100 MG CAP PO SCH ×3 (08:36→21:14)
[2016-10-16] MEDS: LINAGLIPTIN 5 MG TABLET PO SCH (08:36)
[2016-10-16] MEDS: GABAPENTIN 100 MG CAP PO SCH ×3 (08:36→21:13)
[2016-10-16] MEDS: FOLIC ACID 1 MG TAB PO SCH ×2 (08:36→21:14)
[2016-10-16] MEDS: COLLAGENASE 30 GM TUBE TOP SCH (08:36)
[2016-10-16] MEDS: predniSONE 1 MG TAB PO SCH ×3 (08:36→21:13)
[2016-10-16] MEDS: FENOFIBRATE 48 MG TAB PO SCH (08:36)
[2016-10-16] MEDS: METOPROLOL 25 MG TAB PO SCH ×2 (08:37→21:14)
[2016-10-16] MEDS: traMADol 50 MG TAB PO PRN (08:40)
--- NOTE | 2016-10-16 10:31 | CONS ---
Date/Time of Note Date/Time of Note DATE: 10/16/16 TIME: 10:30 Assessment/Plan Assessment/Plan Additional Assessment/Plan 1. Stable post cx spine fx 2. CKD, to have HD tomm 3. Anemia has been stable 4. Await dc planning to sort out best plan for dc Consultation Date/Type/Reason Admit Date/Time Sep 28, 2016 at 22:05 Type of Consultation: renal Detailed Summary Respiratory: No cough, No shortness of breath Cardiovascular: No chest pain Gastrointestinal: no complaints Genitourinary: no complaints Musculoskeletal: neck pain (mild) Exam/Review of Systems Vital Signs Vitals Vital Signs Date Time Temp Pulse Resp B/P Pulse Ox O2 Delivery O2 Flow Rate FiO2 10/15/16 19:50 98.4 78 20 145/65 98 Intake and Output 10/15/16 10/15/16 10/16/16 15:00 23:00 07:00 Intake Total 1220 ml 120 ml Output Total 1 ml Balance 1219 ml 120 ml Exam Neck: No jvd Respiratory: clear to auscultation Cardiovascular: regular rate and rhythm Gastrointestinal: soft Extremities: No edema (and no calf tend) Results Result Diagram: 10/14/1615 10/14/1615 Results 24 hrs Laboratory Tests Test 10/16/16 07:42 Bedside Glucose 99 Medications Medications Current Medications Sodium Biphosphate/ Sodium Phosphate (Fleet Enema) 133 ml DAILY PRN [place] CONSTIPATION; Start 09/28/16 at 23:00 Tramadol HCl (Ultram) 50 mg Q8H PRN PO PAIN Last administered on 10/16/16 08:40 ; Admin Dose 50 MG; Start 09/28/16 at 23:00 Prednisone (Prednisone) 1 mg QHS PO Last administered on 10/15/16 20:10; Admin Dose 1 MG; Start 09/29/16 at 21:00 Prednisone (Prednisone) 4 mg DAILY PO Last administered on 10/16/16 08:36; Admin Dose 4 MG; Start 09/29/16 at 09:00 Salmeterol Xinafoate/ Fluticasone (Advair 250/50 Diskus) 1 inh BID INH Last administered on 10/16/16 08:35; Admin Dose 1 INH; Start 09/29/16 at 09:00 Miscellaneous Information 1 ea NOTE XX ; Start 09/28/16 at 23:00 Glucose (Glutose) 15 gm Q15M PRN PO DECREASED GLUCOSE; Start 09/28/16 at 23:00 Glucose (Glutose) 22.5 gm Q15M PRN PO DECREASED GLUCOSE; Start 09/28/16 at 23: 00 Dextrose (D50w Syringe) 25 ml Q15M PRN IV DECREASED GLUCOSE; Start 09/28/16 at 23:00 Dextrose (D50w Syringe) 50 ml Q15M PRN IV DECREASED GLUCOSE; Start 09/28/16 at 23:00 Glucagon (Glucagen) 1 mg Q15M PRN IM DECREASED GLUCOSE; Start 09/28/16 at 23:00 Glucose (Glutose) 15 gm Q15M PRN BUCCAL DECREASED GLUCOSE; Start 09/28/16 at 23 :00 Linagliptin (Tradjenta) 5 mg DAILY PO Last administered on 10/16/16 08:36; Admin Dose 5 MG; Start 09/29/16 at 09:00 Metoprolol Tartrate (Lopressor) 25 mg BID PO Last administered on 10/16/16 08: 37; Admin Dose 25 MG; Start 09/29/16 at 09:00 Acetaminophen/ Hydrocodone Bitart ([place] (5/325)) 1 tab Q6H PRN PO PAIN Last administered on 10/15/16 20:11; Admin Dose 1 TAB; Start 09/28/16 at 23:00 Acetaminophen/ Hydrocodone Bitart ([place] (5/325)) 2 tab Q6H PRN PO PAIN Last administered on 10/04/16 08:33; Admin Dose 2 TAB; Start 09/28/16 at 23:00; Status Future Hold Famotidine (Pepcid) 40 mg QHS PO Last administered on 10/15/16 20:09; Admin Dose 40 MG; Start 09/29/16 at 21:00 Fenofibrate (Tricor) 48 mg QAM PO Last administered on 10/16/16 08:36; Admin Dose 48 MG; Start 09/29/16 at 09:00 Folic Acid (Folic Acid) 1 mg BID PO Last administered on 10/16/16 08:36; Admin Dose 1 MG; Start 09/29/16 at 09:00 Eye Lubricant (Artificial Tears Oph) 2 drop Q2H PRN BOTH EYES DRY EYES; Start 09/28/16 at 23:30 Atorvastatin Calcium (Lipitor) 40 mg DAILY@21 PO Last administered on 10/15/16 20:10; Admin Dose 40 MG; Start 09/29/16 at 21:00 Docusate Sodium (Colace) 100 mg Q12H PRN PO CONSTIPATION; Start 09/28/16 at 23: 30 Epoetin [place] (Epogen (Esrd)) 10,000 units MoWeFr@17 SC Last administered on 17:41; Admin Dose 10,000 UNITS; Start 09/30/16 at 17:00 Docusate Sodium (Colace) 100 mg BID PO Last administered on 10/16/16 08:36; Admin Dose 100 MG; Start 09/29/16 at 09:00 Senna (Senokot) 1 tab HS PO Last administered on 10/15/16 20:10; Admin Dose 1 TAB; Start 09/29/16 at 21:00 Bisacodyl (Dulcolax Supp) 10 mg DAILY PRN [place] CONSTIPATION; Start 09/29/16 at 05 :30 Magnesium Hydroxide (Milk Of Mag) 30 ml BID PRN PO CONSTIPATION Last administered on 10/04/16 08:33; Admin Dose 30 ML; Start 09/29/16 at 05:30 Gabapentin (Neurontin) 100 mg TID PO Last administered on 10/16/16 08:36; Admin Dose 100 MG; Start 10/04/16 at 13:00 Warfarin Sodium (Coumadin) 4 mg DAILY@17 PO Last administered on 10/15/16 17:40 ; Admin Dose 4 MG; Start 10/14/16 at 17:00 Cephalexin (Keflex) 250 mg Q8 PO Last administered on 10/16/16 06:13; Admin Dose 250 MG; Start 10/12/16 at 14:00 Collagenase (Santyl) 1 applic DAILY TOP Last administered on 10/16/16 08:36; Admin Dose 1 APPLIC; Start 10/12/16 at 16:30 Carbamide Peroxide (Debrox Otic) 10 drop BID BOTH EARS Last administered on 10/16 08:35; Admin Dose 10 DROP; Start 10/13/16 at 21:00; Stop 10/18/16 at 20:59 ARISTIDES WATKINS MD Oct 16, 2016 10:31
[2016-10-16] MEDS: HYDROCODONE/APAP (5/325) TAB PO PRN ×2 (10:47→21:22)
--- NOTE | 2016-10-16 12:21 | PN ---
Date/Time of Note Date/Time of Note DATE: 10/16/16 TIME: 12:17 Assessment/Plan VTE Prophylaxis VTE Prophylaxis Intervention: heparin Lines/Catheters IV [facility]from [facility] Urinary Cath still in place: No Assessment/Plan Problems: (1) Atrial fibrillation Status: Chronic Comment: On anticoagulation and rate controlled Qualifiers: Atrial fibrillation type: chronic Qualified Code: I48.2 - Chronic atrial fibrillation (2) COPD (chronic obstructive pulmonary disease) Status: Chronic Comment: Controlled w/ oral steroids. Will continue Qualifiers: COPD type: emphysema Emphysema type: panlobular Qualified Code: J43.1 - Panlobular emphysema (3) Sarcoidosis Status: Chronic Comment: Cont. oral steroids (4) ESRD (end stage renal disease) on dialysis Status: Chronic Comment: Cont. HD per nephrology (5) Diabetes mellitus type 2 in obese Status: Chronic Comment: Excellent glycemic control (6) Dens fracture Status: Acute Comment: Doing well w/ rehab. Likely d/c home later this week and remove c- collar later in the month. Qualifiers: Encounter type: subsequent encounter Fracture healing: with routine healing Qualified Code: S12.100D - Dens fracture, with routine healing, subsequent encounter Subjective 24 Hr Interval Summary Constitutional: improved, no complaints Respiratory: no complaints Cardiovascular: no complaints Gastrointestinal: no complaints Genitourinary: no complaints Musculoskeletal: no complaints Neurologic: no complaints Exam/Review of Systems Vital Signs Vitals VS - Last 72 Hours, by Label Date Time Temp Pulse Resp B/P Pulse Ox O2 Delivery O2 Flow Rate FiO2 10/15/16 19:50 98.4 78 20 145/65 98 10/15/16 07:30 98.0 71 18 144/71 95 10/14/16 20:19 98.7 76 18 146/64 92 10/14/16 16:21 86 10/14/16 16:20 85 18 10/14/16 15:50 85 10/14/16 15:20 86 10/14/16 14:50 89 10/14/16 14:20 300 10/14/16 13:50 83 10/14/16 13:20 85 10/14/16 13:20 80 16 10/14/16 07:41 98.4 79 18 146/64 96 10/13/16 19:21 97.8 80 18 158/67 98 Vital Signs Date Time Temp Pulse Resp B/P Pulse Ox O2 Delivery O2 Flow Rate FiO2 10/15/16 19:50 98.4 78 20 145/65 98 Intake and Output 10/15/16 10/15/16 10/16/16 14:59 22:59 06:59 Intake Total 1220 ml 120 ml Output Total 1 ml Balance 1219 ml 120 ml Exam Constitutional: alert, obese, oriented Psych: nl mood/affect, no complaints Respiratory: clear to auscultation, normal air movement Cardiovascular: edema (3+ BLE), nl pulses, regular rate and rhythm, No murmurs/extra sounds, No rub Gastrointestinal: bowel sounds, nl liver, spleen, non-tender, soft, No mass, No rebound or guarding Musculoskeletal: nl extremities to inspection Extremities: edema (3+ BLE), normal pulses, No clubbing, No cyanosis 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: LINK TRAINER MECHANIC II-XII 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, nl mental status, nl speech, nl strength Additional Comments Bedside Glucose - 72 Hours Test 10/14/16 08:09 10/15/16 07:41 10/16/16 07:42 Bedside Glucose 87mg/dL (70-220) 84mg/dL (70-220) 99mg/dL (70-220) Results Result Diagram: 10/14/1661410/14/1615 Results 24 hrs Laboratory Tests Test 10/16/16 07:42 Bedside Glucose 99 Medications Medications Current Medications Sodium Biphosphate/ Sodium Phosphate (Fleet Enema) 133 ml DAILY PRN [place] CONSTIPATION; Start 09/28/16 at 23:00 Tramadol HCl (Ultram) 50 mg Q8H PRN PO PAIN Last administered on 10/16/16 08:40 ; Admin Dose 50 MG; Start 09/28/16 at 23:00 Prednisone (Prednisone) 1 mg QHS PO Last administered on 10/15/16 20:10; Admin Dose 1 MG; Start 09/29/16 at 21:00 Prednisone (Prednisone) 4 mg DAILY PO Last administered on 10/16/16 08:36; Admin Dose 4 MG; Start 09/29/16 at 09:00 Salmeterol Xinafoate/ Fluticasone (Advair 250/50 Diskus) 1 inh BID INH Last administered on 10/16/16 08:35; Admin Dose 1 INH; Start 09/29/16 at 09:00 Miscellaneous Information 1 ea NOTE XX ; Start 09/28/16 at 23:00 Glucose (Glutose) 15 gm Q15M PRN PO DECREASED GLUCOSE; Start 09/28/16 at 23:00 Glucose (Glutose) 22.5 gm Q15M PRN PO DECREASED GLUCOSE; Start 09/28/16 at 23: 00 Dextrose (D50w Syringe) 25 ml Q15M PRN IV DECREASED GLUCOSE; Start 09/28/16 at 23:00 Dextrose (D50w Syringe) 50 ml Q15M PRN IV DECREASED GLUCOSE; Start 09/28/16 at 23:00 Glucagon (Glucagen) 1 mg Q15M PRN IM DECREASED GLUCOSE; Start 09/28/16 at 23:00 Glucose (Glutose) 15 gm Q15M PRN BUCCAL DECREASED GLUCOSE; Start 09/28/16 at 23 :00 Linagliptin (Tradjenta) 5 mg DAILY PO Last administered on 10/16/16 08:36; Admin Dose 5 MG; Start 09/29/16 at 09:00 Metoprolol Tartrate (Lopressor) 25 mg BID PO Last administered on 10/16/16 08: 37; Admin Dose 25 MG; Start 09/29/16 at 09:00 Acetaminophen/ Hydrocodone Bitart ([place] (5/325)) 1 tab Q6H PRN PO PAIN Last administered on 10/16/16 10:47; Admin Dose 1 TAB; Start 09/28/16 at 23:00 Acetaminophen/ Hydrocodone Bitart ([place] (5/325)) 2 tab Q6H PRN PO PAIN Last administered on 10/04/16 08:33; Admin Dose 2 TAB; Start 09/28/16 at 23:00; Status Future Hold Famotidine (Pepcid) 40 mg QHS PO Last administered on 10/15/16 20:09; Admin Dose 40 MG; Start 09/29/16 at 21:00 Fenofibrate (Tricor) 48 mg QAM PO Last administered on 10/16/16 08:36; Admin Dose 48 MG; Start 09/29/16 at 09:00 Folic Acid (Folic Acid) 1 mg BID PO Last administered on 10/16/16 08:36; Admin Dose 1 MG; Start 09/29/16 at 09:00 Eye Lubricant (Artificial Tears Oph) 2 drop Q2H PRN BOTH EYES DRY EYES; Start 09/28/16 at 23:30 Atorvastatin Calcium (Lipitor) 40 mg DAILY@21 PO Last administered on 10/15/16 20:10; Admin Dose 40 MG; Start 09/29/16 at 21:00 Docusate Sodium (Colace) 100 mg Q12H PRN PO CONSTIPATION; Start 09/28/16 at 23: 30 Epoetin César (Epogen (Esrd)) 10,000 units MoWeFr@17 SC Last administered on 17:41; Admin Dose 10,000 UNITS; Start 09/30/16 at 17:00 Docusate Sodium (Colace) 100 mg BID PO Last administered on 10/16/16 08:36; Admin Dose 100 MG; Start 09/29/16 at 09:00 Senna (Senokot) 1 tab HS PO Last administered on 10/15/16 20:10; Admin Dose 1 TAB; Start 09/29/16 at 21:00 Bisacodyl (Dulcolax Supp) 10 mg DAILY PRN IN CONSTIPATION; Start 09/29/16 at 05 :30 Magnesium Hydroxide (Milk Of Mag) 30 ml BID PRN PO CONSTIPATION Last administered on 10/04/16 08:33; Admin Dose 30 ML; Start 09/29/16 at 05:30 Gabapentin (Neurontin) 100 mg TID PO Last administered on 10/16/16 08:36; Admin Dose 100 MG; Start 10/04/16 at 13:00 Warfarin Sodium (Coumadin) 4 mg DAILY@17 PO Last administered on 10/15/16 17:40 ; Admin Dose 4 MG; Start 10/14/16 at 17:00 Cephalexin (Keflex) 250 mg Q8 PO Last administered on 10/16/16 06:13; Admin Dose 250 MG; Start 10/12/16 at 14:00 Collagenase (Santyl) 1 applic DAILY TOP Last administered on 10/16/16 08:36; Admin Dose 1 APPLIC; Start 10/12/16 at 16:30 Carbamide Peroxide (Debrox Otic) 10 drop BID BOTH EARS Last administered on 10/16 08:35; Admin Dose 10 DROP; Start 10/13/16 at 21:00; Stop 10/18/16 at 20:59 SOBEIDA ENRIQUEZ MD 2, 2017 12:20
[2016-10-16] MEDS: WARFARIN 2 MG TAB PO SCH (17:10)
[2016-10-16 20:00] VITALS: BP 164/77; RESP 18
[2016-10-16] MEDS: SENNA TAB PO SCH ×2 (21:00→21:14)
[2016-10-16] MEDS: ATORVASTATIN 40 MG TAB PO SCH (21:13)
[2016-10-16] MEDS: FAMOTIDINE 20 MG TAB PO SCH (21:14)
[2016-10-16] MEDS: ZOLPIDEM 5 MG TAB PO PRN (22:40)
[2016-10-16 22:43] VITALS: BP 143/63; PULSE 87
[2016-10-17] VITALS (9 sets, daily range): BP systolic 119–152; BP diastolic 62–84; PULSE 80–84; RESP 18
[2016-10-17] MEDS: ZOLPIDEM 5 MG TAB PO PRN ×2 (01:10→23:26)
[2016-10-17] MEDS: CEPHALEXIN 250 MG CAP PO SCH ×3 (05:46→20:47)
--- NOTE | 2016-10-17 07:42 | CONS ---
Date/Time of Note Date/Time of Note DATE: 10/17/16 TIME: 07:39 Assessment/Plan Assessment/Plan Problems: (1) Arm pain, right Comment: looks fine... get xray (2) Atrial fibrillation Status: Chronic Comment: rate controlled Qualifiers: Atrial fibrillation type: chronic Qualified Code: I48.2 - Chronic atrial fibrillation (3) ESRD (end stage renal disease) on dialysis Status: Chronic Comment: HD today (4) Diabetes mellitus type 2 in obese Status: Chronic Comment: controlled (5) Aortic stenosis Status: Chronic Comment: s/p TAVR, fine (6) Dens fracture Status: Acute Comment: in collar.... neuro nl Qualifiers: Encounter type: subsequent encounter Fracture healing: with routine healing Qualified Code: S12.100D - Dens fracture, with routine healing, subsequent encounter Consultation Date/Type/Reason Admit Date/Time Sep 28, 2016 at 22:05 Type of Consultation: renal 24 HR Interval Summary Free Text/Dictation doing well x sore Rt arm Exam/Review of Systems Vital Signs Vitals Vital Signs Date Time Temp Pulse Resp B/P Pulse Ox O2 Delivery O2 Flow Rate FiO2 10/16/16 22:43 87 143/63 10/16/16 20:00 98.4 18 98 Intake and Output 10/16/16 10/16/16 10/17/16 15:00 23:00 07:00 Intake Total 240 ml Balance 240 ml Exam Constitutional: alert, oriented Eyes: nl conjunctiva Neck: other (in hard collar) Cardiovascular: regular rate and rhythm Gastrointestinal: soft Extremities: tenderness (near avf RUE... no swelling or erythema) Results Result Diagram: 10/14/1661410/14/16 0615 Results 24 hrs Laboratory Tests Test 10/16/16 07:42 Bedside Glucose 99 Medications Medications Current Medications Sodium Biphosphate/ Sodium Phosphate (Fleet Enema) 133 ml DAILY PRN [place] CONSTIPATION; Start 09/28/16 at 23:00 Tramadol HCl (Ultram) 50 mg Q8H PRN PO PAIN Last administered on 10/16/16 08:40 ; Admin Dose 50 MG; Start 09/28/16 at 23:00 Prednisone (Prednisone) 1 mg QHS PO Last administered on 10/16/16 21:13; Admin Dose 1 MG; Start 09/29/16 at 21:00 Prednisone (Prednisone) 4 mg DAILY PO Last administered on 10/16/16 08:36; Admin Dose 4 MG; Start 09/29/16 at 09:00 Salmeterol Xinafoate/ Fluticasone (Advair 250/50 Diskus) 1 inh BID INH Last administered on 10/16/16 21:14; Admin Dose 1 INH; Start 09/29/16 at 09:00 Miscellaneous Information 1 ea NOTE XX ; Start 09/28/16 at 23:00 Glucose (Glutose) 15 gm Q15M PRN PO DECREASED GLUCOSE; Start 09/28/16 at 23:00 Glucose (Glutose) 22.5 gm Q15M PRN PO DECREASED GLUCOSE; Start 09/28/16 at 23: 00 Dextrose (D50w Syringe) 25 ml Q15M PRN IV DECREASED GLUCOSE; Start 09/28/16 at 23:00 Dextrose (D50w Syringe) 50 ml Q15M PRN IV DECREASED GLUCOSE; Start 09/28/16 at 23:00 Glucagon (Glucagen) 1 mg Q15M PRN IM DECREASED GLUCOSE; Start 09/28/16 at 23:00 Glucose (Glutose) 15 gm Q15M PRN BUCCAL DECREASED GLUCOSE; Start 09/28/16 at 23 :00 Linagliptin (Tradjenta) 5 mg DAILY PO Last administered on 10/16/16 08:36; Admin Dose 5 MG; Start 09/29/16 at 09:00 Metoprolol Tartrate (Lopressor) 25 mg BID PO Last administered on 10/16/16 21: 14; Admin Dose 25 MG; Start 09/29/16 at 09:00 Acetaminophen/ Hydrocodone Bitart ([place] (5/325)) 1 tab Q6H PRN PO PAIN Last administered on 10/16/16 21:22; Admin Dose 1 TAB; Start 09/28/16 at 23:00 Acetaminophen/ Hydrocodone Bitart ([place] (5/325)) 2 tab Q6H PRN PO PAIN Last administered on 10/04/16 08:33; Admin Dose 2 TAB; Start 09/28/16 at 23:00; Status Future Hold Famotidine (Pepcid) 40 mg QHS PO Last administered on 10/16/16 21:14; Admin Dose 40 MG; Start 09/29/16 at 21:00 Fenofibrate (Tricor) 48 mg QAM PO Last administered on 10/16/16 08:36; Admin Dose 48 MG; Start 09/29/16 at 09:00 Folic Acid (Folic Acid) 1 mg BID PO Last administered on 10/16/16 21:14; Admin Dose 1 MG; Start 09/29/16 at 09:00 Eye Lubricant (Artificial Tears Oph) 2 drop Q2H PRN BOTH EYES DRY EYES; Start 09/28/16 at 23:30 Atorvastatin Calcium (Lipitor) 40 mg DAILY@21 PO Last administered on 10/16/16 21:13; Admin Dose 40 MG; Start 09/29/16 at 21:00 Docusate Sodium (Colace) 100 mg Q12H PRN PO CONSTIPATION; Start 09/28/16 at 23: 30 Epoetin César (Epogen (Esrd)) 10,000 units MoWeFr@17 SC Last administered on 17:41; Admin Dose 10,000 UNITS; Start 09/30/16 at 17:00 Docusate Sodium (Colace) 100 mg BID PO Last administered on 10/16/16 08:36; Admin Dose 100 MG; Start 09/29/16 at 09:00 Senna (Senokot) 1 tab HS PO Last administered on 10/15/16 20:10; Admin Dose 1 TAB; Start 09/29/16 at 21:00 Bisacodyl (Dulcolax Supp) 10 mg DAILY PRN [place] CONSTIPATION; Start 09/29/16 at 05 :30 Magnesium Hydroxide (Milk Of Mag) 30 ml BID PRN PO CONSTIPATION Last administered on 10/04/16 08:33; Admin Dose 30 ML; Start 09/29/16 at 05:30 Gabapentin (Neurontin) 100 mg TID PO Last administered on 10/16/16 21:13; Admin Dose 100 MG; Start 10/04/16 at 13:00 Warfarin Sodium (Coumadin) 4 mg DAILY@17 PO Last administered on 10/16/16 17:10 ; Admin Dose 4 MG; Start 10/14/16 at 17:00 Cephalexin (Keflex) 250 mg Q8 PO Last administered on 10/17/16 05:46; Admin Dose 250 MG; Start 10/12/16 at 14:00 Collagenase (Santyl) 1 applic DAILY TOP Last administered on 10/16/16 08:36; Admin Dose 1 APPLIC; Start 10/12/16 at 16:30 Carbamide Peroxide (Debrox Otic) 10 drop BID BOTH EARS Last administered on 10/16 21:14; Admin Dose 10 DROP; Start 10/13/16 at 21:00; Stop 10/18/16 at 20:59 NICO HAY MD Oct 17, 2016 07:42
[2016-10-17] MEDS: ACCU-CHEK XX SCH (07:54)
[2016-10-17 08:00] LABS: BASOPHIL # 0.1 10^3/ul (0.0-0.1); EOSINOPHILS # 0.1 10^3/ul (0.0-0.5); EOSINOPHILS % 1.1 % (0.0-7.0); HEMATOCRIT 30.7 % (37.0-47.0); HEMOGLOBIN 10.1 g/dl (12.0-16.0); LYMPHOCYTES # 1.8 10^3/ul (0.8-2.9); LYMPHOCYTES % 34.5 % (15.0-51.0); MEAN CORPUSCULAR HEMOGLOBIN 31.6 pg (29.0-33.0); MEAN CORPUSCULAR HGB CONC 32.9 g/dl (32.0-37.0); MEAN CORPUSCULAR VOLUME 95.9 fl (82.0-101.0); MEAN PLATELET VOLUME 10.1 fl (7.4-10.4); MONOCYTE # 0.5 10^3/ul (0.3-0.9); MONOCYTES % 9.9 % (0.0-11.0); NEUTROPHIL # 2.8 10^3/ul (1.6-7.5); NEUTROPHILS % 53.1 % (39.0-77.0); PLATELET COUNT 214 10^3/UL (140-415); WHITE BLOOD COUNT 5.3 10^3/ul (4.8-10.8)
[2016-10-17 08:16] LABS: ADD SCAN DIFF NO
[2016-10-17] MEDS: SEVELAMER CARBONATE 0.8 GM PKT PO SCH ×3 (08:45→17:35)
[2016-10-17] MEDS: CARBAMIDE PEROXIDE 6.5% 15ML OTIC BOTH EARS SCH ×2 (08:46→20:50)
[2016-10-17] MEDS: FOLIC ACID 1 MG TAB PO SCH ×2 (08:46→20:46)
[2016-10-17] MEDS: DOCUSATE SODIUM 100 MG CAP PO SCH ×2 (08:46→21:00)
[2016-10-17] MEDS: SALMETEROL/FLUTICASONE 250/50 INHA INH SCH ×2 (08:46→20:49)
[2016-10-17 08:47] LABS: CALCIUM 9.7 mg/dl (8.4-10.2); CREATININE 8.39 mg/dl (0.44-1.00); PHOSPHORUS 6.4 mg/dl (2.5-4.9); POTASSIUM 4.5 mmol/L (3.5-5.1)
[2016-10-17] MEDS: METOPROLOL 25 MG TAB PO SCH ×2 (08:47→20:46)
[2016-10-17] MEDS: GABAPENTIN 100 MG CAP PO SCH ×3 (08:47→20:46)
[2016-10-17] MEDS: predniSONE 1 MG TAB PO SCH ×3 (08:47→20:48)
[2016-10-17] MEDS: FENOFIBRATE 48 MG TAB PO SCH (08:48)
[2016-10-17] MEDS: LINAGLIPTIN 5 MG TABLET PO SCH (08:48)
--- NOTE | 2016-10-17 09:02 | CONS ---
Date/Time of Note Date/Time of Note DATE: 10/17/16 TIME: 09:00 Consult Date/Type/Reason Admit Date/Time Sep 28, 2016 at 22:05 Type of Consultation: renal Objective Vital Signs Date Time Temp Pulse Resp B/P Pulse Ox O2 Delivery O2 Flow Rate FiO2 10/16/16 22:43 87 143/63 10/16/16 20:00 98.4 18 98 Intake and Output 10/16/16 10/16/16 10/17/16 15:00 23:00 07:00 Intake Total 240 ml Balance 240 ml INTERDISCIPLINARY TEAM CONFERENCE BOWEL- Cont BLADDER-Cont SKIN- posterior scalp wound OT- DRESSING-sba BATHING-sba TOILETING-sba PT- BED MOBILITY-sba TRANSFERS-sba AMBULATION-sba 150 feet SPEECH- COGNITION-s/NH DYPHAGIA-mech soft A/P- Interdisciplinary team conference held today. Please see interdisciplinary sheet. Working toward d.cMaria A on 10/19 with post discharge follow up of physical therapy, occupational therapy. Results/Medications Result Diagram: 10/17/16 0630 10/17/16 0630 Results 24 hrs Laboratory Tests Test 10/17/16 06:30 10/17/16 07:46 White Blood Count 5.3 Red Blood Count 3.20 L Hemoglobin 10.1 L Hematocrit 30.7 L Mean Corpuscular Volume 95.9 Mean Corpuscular Hemoglobin 31.6 Mean Corpuscular Hemoglobin Concent 32.9 Red Cell Distribution Width 17.0 H Platelet Count 214 Mean Platelet Volume 10.1 Neutrophils % 53.1 Lymphocytes % 34.5 Monocytes % 9.9 Eosinophils % 1.1 Basophils % 1.0 Nucleated Red Blood Cells % 0.0 Neutrophils # 2.8 Lymphocytes # 1.8 Monocytes # 0.5 Eosinophils # 0.1 Basophils # 0.1 Nucleated Red Blood Cells # 0.0 Sodium Level 138 Potassium Level 4.5 Chloride Level 94 L Carbon Dioxide Level 23 Anion Gap 26 H Blood Urea Nitrogen 69 H Creatinine 8.39 H Glucose Level 78 Calcium Level 9.7 Phosphorus Level 6.4 H Albumin 4.0 Bedside Glucose 91 Medications Current Medications Sodium Biphosphate/ Sodium Phosphate (Fleet Enema) 133 ml DAILY PRN [place] CONSTIPATION; Start 09/28/16 at 23:00 Tramadol HCl (Ultram) 50 mg Q8H PRN PO PAIN Last administered on 10/16/16 08:40 ; Admin Dose 50 MG; Start 09/28/16 at 23:00 Prednisone (Prednisone) 1 mg QHS PO Last administered on 10/16/16 21:13; Admin Dose 1 MG; Start 09/29/16 at 21:00 Prednisone (Prednisone) 4 mg DAILY PO Last administered on 10/17/16 08:47; Admin Dose 4 MG; Start 09/29/16 at 09:00 Salmeterol Xinafoate/ Fluticasone (Advair 250/50 Diskus) 1 inh BID INH Last administered on 10/17/16 08:46; Admin Dose 1 INH; Start 09/29/16 at 09:00 Miscellaneous Information 1 ea NOTE XX ; Start 09/28/16 at 23:00 Glucose (Glutose) 15 gm Q15M PRN PO DECREASED GLUCOSE; Start 09/28/16 at 23:00 Glucose (Glutose) 22.5 gm Q15M PRN PO DECREASED GLUCOSE; Start 09/28/16 at 23: 00 Dextrose (D50w Syringe) 25 ml Q15M PRN IV DECREASED GLUCOSE; Start 09/28/16 at 23:00 Dextrose (D50w Syringe) 50 ml Q15M PRN IV DECREASED GLUCOSE; Start 09/28/16 at 23:00 Glucagon (Glucagen) 1 mg Q15M PRN IM DECREASED GLUCOSE; Start 09/28/16 at 23:00 Glucose (Glutose) 15 gm Q15M PRN BUCCAL DECREASED GLUCOSE; Start 09/28/16 at 23 :00 Linagliptin (Tradjenta) 5 mg DAILY PO Last administered on 10/17/16 08:48; Admin Dose 5 MG; Start 09/29/16 at 09:00 Metoprolol Tartrate (Lopressor) 25 mg BID PO Last administered on 10/17/16 08: 47; Admin Dose 25 MG; Start 09/29/16 at 09:00 Acetaminophen/ Hydrocodone Bitart ([place] (5/325)) 1 tab Q6H PRN PO PAIN Last administered on 10/16/16 21:22; Admin Dose 1 TAB; Start 09/28/16 at 23:00 Acetaminophen/ Hydrocodone Bitart ([place] (5/325)) 2 tab Q6H PRN PO PAIN Last administered on 10/04/16 08:33; Admin Dose 2 TAB; Start 09/28/16 at 23:00; Status Future Hold Famotidine (Pepcid) 40 mg QHS PO Last administered on 10/16/16 21:14; Admin Dose 40 MG; Start 09/29/16 at 21:00 Fenofibrate (Tricor) 48 mg QAM PO Last administered on 10/17/16 08:48; Admin Dose 48 MG; Start 09/29/16 at 09:00 Folic Acid (Folic Acid) 1 mg BID PO Last administered on 10/17/16 08:46; Admin Dose 1 MG; Start 09/29/16 at 09:00 Eye Lubricant (Artificial Tears Oph) 2 drop Q2H PRN BOTH EYES DRY EYES; Start 09/28/16 at 23:30 Atorvastatin Calcium (Lipitor) 40 mg DAILY@21 PO Last administered on 10/16/16 21:13; Admin Dose 40 MG; Start 09/29/16 at 21:00 Docusate Sodium (Colace) 100 mg Q12H PRN PO CONSTIPATION; Start 09/28/16 at 23: 30 Epoetin César (Epogen (Esrd)) 10,000 units MoWeFr@17 SC Last administered on 17:41; Admin Dose 10,000 UNITS; Start 09/30/16 at 17:00 Docusate Sodium (Colace) 100 mg BID PO Last administered on 10/17/16 08:46; Admin Dose 100 MG; Start 09/29/16 at 09:00 Senna (Senokot) 1 tab HS PO Last administered on 10/15/16 20:10; Admin Dose 1 TAB; Start 09/29/16 at 21:00 Bisacodyl (Dulcolax Supp) 10 mg DAILY PRN [place] CONSTIPATION; Start 09/29/16 at 05 :30 Magnesium Hydroxide (Milk Of Mag) 30 ml BID PRN PO CONSTIPATION Last administered on 10/04/16 08:33; Admin Dose 30 ML; Start 09/29/16 at 05:30 Gabapentin (Neurontin) 100 mg TID PO Last administered on 10/17/16 08:47; Admin Dose 100 MG; Start 10/04/16 at 13:00 Warfarin Sodium (Coumadin) 4 mg DAILY@17 PO Last administered on 10/16/16 17:10 ; Admin Dose 4 MG; Start 10/14/16 at 17:00 Cephalexin (Keflex) 250 mg Q8 PO Last administered on 10/17/16 05:46; Admin Dose 250 MG; Start 10/12/16 at 14:00 Collagenase (Santyl) 1 applic DAILY TOP Last administered on 10/16/16 08:36; Admin Dose 1 APPLIC; Start 10/12/16 at 16:30 Carbamide Peroxide (Debrox Otic) 10 drop BID BOTH EARS Last administered on 10/17 08:46; Admin Dose 10 DROP; Start 10/13/16 at 21:00; Stop 10/18/16 at 20:59 SYDNEY ROGERS MD Oct 17, 2016 09:02
[2016-10-17] MEDS: HYDROCODONE/APAP (5/325) TAB PO PRN ×3 (09:27→20:47)
--- NOTE | 2016-10-17 09:54 | RADRPT ---
PROCEDURE: XR Right Shoulder. CLINICAL INDICATION: Right shoulder pain. TECHNIQUE: Three views. Frontal internal rotation, frontal external rotation, and scapular Y-view . COMPARISON: No prior study is available for comparison. FINDINGS: There is no fracture or dislocation. The soft tissues are normal. Articular surfaces are intact. There is no lytic or blastic lesion. There is no radiopaque foreign body. IMPRESSION: 1. Normal images of the right shoulder. RPTAT: QQ .Mp Fields MD, MD Date Time Electronically viewed and signed by .Mp Fields MD, MD on 10/17/2016 09:53 .R/
--- NOTE | 2016-10-17 09:54 | RADRPT ---
PROCEDURE: XR Right Humerus. CLINICAL INDICATION: Right arm pain. TECHNIQUE: AP and lateral views of the right humerus were performed. COMPARISON: None. FINDINGS: There is no fracture or dislocation. The soft tissues are normal. Articular surfaces are intact. There is no lytic or blastic lesion. There is no radiopaque foreign body. IMPRESSION: 1. Unremarkable images of the right humerus. RPTAT: QQ .Mp Fields MD, MD Date Time Electronically viewed and signed by .Mp Fields MD, on 10/17/2016 09:54 .R/
[2016-10-17] MEDS: COLLAGENASE 30 GM TUBE TOP SCH (11:39)
[2016-10-17] MEDS: traMADol 50 MG TAB PO PRN (13:53)
--- NOTE | 2016-10-17 13:56 | PN ---
Date/Time of Note Date/Time of Note DATE: 10/17/16 TIME: 13:53 Assessment/Plan VTE Prophylaxis VTE Prophylaxis Intervention: ambulation Lines/Catheters IV C[facility]ter Type [facility]from [facility] [place] Urinary Cath still in place: No Assessment/Plan Problems: (1) Tendinopathy of right biceps tendon Status: Acute Comment: inject in morning (2) COPD (chronic obstructive pulmonary disease) Status: Chronic Comment: continue same treatment Qualifiers: COPD type: emphysema Emphysema type: panlobular Qualified Code: J43.1 - Panlobular emphysema (3) ESRD (end stage renal disease) on dialysis Status: Chronic Comment: on CHD TIW (4) Hypertension associated with chronic kidney disease due to type 2 diabetes mellitus Status: Chronic Comment: stable (5) Hyperlipidemia Status: Chronic Comment: on staitn Qualifiers: Hyperlipidemia type: pure hypercholesterolemia Qualified Code: E78.00 - Pure hypercholesterolemia (6) Obstructive sleep apnea Status: Chronic Comment: declines cpap Subjective 24 Hr Interval Summary Free Text/Dictation Patient c/o pain at right ant shoulder for 3 weeks! Respiratory: no complaints Cardiovascular: no complaints Gastrointestinal: no complaints Musculoskeletal: other (right shoulder) Exam/Review of Systems Vital Signs Vitals Vital Signs Date Time Temp Pulse Resp B/P Pulse Ox O2 Delivery O2 Flow Rate FiO2 10/17/16 07:30 98.7 75 18 130/63 96 Intake and Output 10/16/16 10/16/16 10/17/16 15:00 23:00 07:00 Intake Total 240 ml Balance 240 ml Exam Constitutional: alert, oriented Respiratory: clear to auscultation, normal air movement Cardiovascular: nl pulses, regular rate and rhythm Gastrointestinal: nl liver, spleen, soft Extremities: other (right proximal biceps tendon trigger point) Results Result Diagram: 10/17/16 0630 10/17/16 0630 Results 24 hrs Laboratory Tests Test 10/17/16 06:30 10/17/16 07:46 White Blood Count 5.3 Red Blood Count 3.20 L Hemoglobin 10.1 L Hematocrit 30.7 L Mean Corpuscular Volume 95.9 Mean Corpuscular Hemoglobin 31.6 Mean Corpuscular Hemoglobin Concent 32.9 Red Cell Distribution Width 17.0 H Platelet Count 214 Mean Platelet Volume 10.1 Neutrophils % 53.1 Lymphocytes % 34.5 Monocytes % 9.9 Eosinophils % 1.1 Basophils % 1.0 Nucleated Red Blood Cells % 0.0 Neutrophils # 2.8 Lymphocytes # 1.8 Monocytes # 0.5 Eosinophils # 0.1 Basophils # 0.1 Nucleated Red Blood Cells # 0.0 Sodium Level 138 Potassium Level 4.5 Chloride Level 94 L Carbon Dioxide Level 23 Anion Gap 26 H Blood Urea Nitrogen 69 H Creatinine 8.39 H Glucose Level 78 Calcium Level 9.7 Phosphorus Level 6.4 H Albumin 4.0 Bedside Glucose 91 Medications Medications Current Medications Sodium Biphosphate/ Sodium Phosphate (Fleet Enema) 133 ml DAILY PRN [place] CONSTIPATION; Start 09/28/16 at 23:00 Tramadol HCl (Ultram) 50 mg Q8H PRN PO PAIN Last administered on 10/16/16 08:40 ; Admin Dose 50 MG; Start 09/28/16 at 23:00 Prednisone (Prednisone) 1 mg QHS PO Last administered on 10/16/16 21:13; Admin Dose 1 MG; Start 09/29/16 at 21:00 Prednisone (Prednisone) 4 mg DAILY PO Last administered on 10/17/16 08:47; Admin Dose 4 MG; Start 09/29/16 at 09:00 Salmeterol Xinafoate/ Fluticasone (Advair 250/50 Diskus) 1 inh BID INH Last administered on 10/17/16 08:46; Admin Dose 1 INH; Start 09/29/16 at 09:00 Miscellaneous Information 1 ea NOTE XX ; Start 09/28/16 at 23:00 Glucose (Glutose) 15 gm Q15M PRN PO DECREASED GLUCOSE; Start 09/28/16 at 23:00 Glucose (Glutose) 22.5 gm Q15M PRN PO DECREASED GLUCOSE; Start 09/28/16 at 23: 00 Dextrose (D50w Syringe) 25 ml Q15M PRN IV DECREASED GLUCOSE; Start 09/28/16 at 23:00 Dextrose (D50w Syringe) 50 ml Q15M PRN IV DECREASED GLUCOSE; Start 09/28/16 at 23:00 Glucagon (Glucagen) 1 mg Q15M PRN IM DECREASED GLUCOSE; Start 09/28/16 at 23:00 Glucose (Glutose) 15 gm Q15M PRN BUCCAL DECREASED GLUCOSE; Start 09/28/16 at 23 :00 Linagliptin (Tradjenta) 5 mg DAILY PO Last administered on 10/17/16 08:48; Admin Dose 5 MG; Start 09/29/16 at 09:00 Metoprolol Tartrate (Lopressor) 25 mg BID PO Last administered on 10/17/16 08: 47; Admin Dose 25 MG; Start 09/29/16 at 09:00 Acetaminophen/ Hydrocodone Bitart ([place] (5/325)) 1 tab Q6H PRN PO PAIN Last administered on 10/17/16 09:27; Admin Dose 1 TAB; Start 09/28/16 at 23:00 Acetaminophen/ Hydrocodone Bitart ([place] (5/325)) 2 tab Q6H PRN PO PAIN Last administered on 10/04/16 08:33; Admin Dose 2 TAB; Start 09/28/16 at 23:00; Status Future Hold Famotidine (Pepcid) 40 mg QHS PO Last administered on 10/16/16 21:14; Admin Dose 40 MG; Start 09/29/16 at 21:00 Fenofibrate (Tricor) 48 mg QAM PO Last administered on 10/17/16 08:48; Admin Dose 48 MG; Start 09/29/16 at 09:00 Folic Acid (Folic Acid) 1 mg BID PO Last administered on 10/17/16 08:46; Admin Dose 1 MG; Start 09/29/16 at 09:00 Eye Lubricant (Artificial Tears Oph) 2 drop Q2H PRN BOTH EYES DRY EYES; Start 09/28/16 at 23:30 Atorvastatin Calcium (Lipitor) 40 mg DAILY@21 PO Last administered on 10/16/16 21:13; Admin Dose 40 MG; Start 09/29/16 at 21:00 Docusate Sodium (Colace) 100 mg Q12H PRN PO CONSTIPATION; Start 09/28/16 at 23: 30 Epoetin César (Epogen (Esrd)) 10,000 units MoWeFr@17 SC Last administered on 17:41; Admin Dose 10,000 UNITS; Start 09/30/16 at 17:00 Docusate Sodium (Colace) 100 mg BID PO Last administered on 10/17/16 08:46; Admin Dose 100 MG; Start 09/29/16 at 09:00 Senna (Senokot) 1 tab HS PO Last administered on 10/15/16 20:10; Admin Dose 1 TAB; Start 09/29/16 at 21:00 Bisacodyl (Dulcolax Supp) 10 mg DAILY PRN [place] CONSTIPATION; Start 09/29/16 at 05 :30 Magnesium Hydroxide (Milk Of Mag) 30 ml BID PRN PO CONSTIPATION Last administered on 10/04/16 08:33; Admin Dose 30 ML; Start 09/29/16 at 05:30 Gabapentin (Neurontin) 100 mg TID PO Last administered on 10/17/16 12:42; Admin Dose 100 MG; Start 10/04/16 at 13:00 Warfarin Sodium (Coumadin) 4 mg DAILY@17 PO Last administered on 10/16/16 17:10 ; Admin Dose 4 MG; Start 10/14/16 at 17:00 Cephalexin (Keflex) 250 mg Q8 PO Last administered on 10/17/16 05:46; Admin Dose 250 MG; Start 10/12/16 at 14:00 Collagenase (Santyl) 1 applic DAILY TOP Last administered on 10/17/16 11:39; Admin Dose 1 APPLIC; Start 10/12/16 at 16:30 Carbamide Peroxide (Debrox Otic) 10 drop BID BOTH EARS Last administered on 10/17 08:46; Admin Dose 10 DROP; Start 10/13/16 at 21:00; Stop 10/18/16 at 20:59 Bupivacaine HCl ([place] 0.25% (Mpf) 10 ml) 10 ml ONCE ONCE INJ ; Start at 14:00; Stop 10/17/16 at 14:01; Status UNV Triamcinolone Acetonide (Kenalog-40 5 ml) 200 mg ONCE ONCE INJ ; Start 10/17/16 at 14:00; Stop 10/17/16 at 14:01; Status TOMER MAYO MD Oct 17, 2016 13:56
[2016-10-17] MEDS ORDERED: BUPIVACAINE 0.25% (MPF) 10 ML 10 ML VIAL INJ ONE (14:00)
[2016-10-17] MEDS ORDERED: TRIAMCINOLONE ACET SUSP 200 MG INJ INJ ONE (14:00)
[2016-10-17 14:19] LABS: INR 1.37; PROTIME 16.9 Sec (12.2-14.2); PT RATIO 1.3
[2016-10-17] MEDS: WARFARIN 2 MG TAB PO SCH (17:33)
[2016-10-17] MEDS: EPOETIN 10000 UNITS/1 ML INJ (ESRD) SC SCH (17:35)
[2016-10-17] MEDS: FAMOTIDINE 20 MG TAB PO SCH (20:45)
[2016-10-17] MEDS: ATORVASTATIN 40 MG TAB PO SCH (20:46)
--- NOTE | 2016-10-17 20:57 | RADRPT ---
Vent Rate: 68 bpm RR Interval: 0 msec LA Interval: 0 msec QRS Duration: 146 msec QT Interval: 430 msec QTC Interval: 457 msec P-R-T [place]: 0 - -40 - -61 degrees Atrial fibrillation Left axis deviation Right bundle branch block Moderate voltage criteria for LVH, may be normal variant T wave abnormality, consider inferolateral ischemia or digitalis effect Abnormal ECG Electronically Signed By: Kishor Menard [id number]
[2016-10-17] MEDS: SENNA TAB PO SCH (21:00)
[2016-10-18] MEDS: ZOLPIDEM 5 MG TAB PO PRN (00:25)
[2016-10-18] MEDS: ACCU-CHEK XX SCH (07:05)
[2016-10-18 07:08] LABS: INR 1.49; PROTIME 18.1 Sec (12.2-14.2); PT RATIO 1.4
[2016-10-18 07:34] VITALS: BP 124/52; RESP 18
[2016-10-18] MEDS ORDERED: TRIAMCINOLONE ACET SUSP 200 MG INJ INJ ONE (08:00)
[2016-10-18] MEDS ORDERED: BUPIVACAINE 0.25% (MPF) 10 ML 10 ML VIAL INJ ONE (08:00)
[2016-10-18] MEDS: SALMETEROL/FLUTICASONE 250/50 INHA INH SCH ×2 (08:45→20:21)
[2016-10-18] MEDS: CARBAMIDE PEROXIDE 6.5% 15ML OTIC BOTH EARS SCH (08:45)
[2016-10-18] MEDS: SEVELAMER CARBONATE 0.8 GM PKT PO SCH ×3 (08:45→17:17)
[2016-10-18] MEDS: METOPROLOL 25 MG TAB PO SCH ×2 (08:46→20:17)
[2016-10-18] MEDS: GABAPENTIN 100 MG CAP PO SCH ×3 (08:46→20:17)
[2016-10-18] MEDS: FOLIC ACID 1 MG TAB PO SCH ×2 (08:46→20:18)
[2016-10-18] MEDS: DOCUSATE SODIUM 100 MG CAP PO SCH ×2 (08:46→20:25)
[2016-10-18] MEDS: predniSONE 1 MG TAB PO SCH ×3 (08:47→20:17)
[2016-10-18] MEDS: FENOFIBRATE 48 MG TAB PO SCH (08:47)
[2016-10-18] MEDS: LINAGLIPTIN 5 MG TABLET PO SCH (08:47)
[2016-10-18] MEDS: COLLAGENASE 30 GM TUBE TOP SCH (08:48)
[2016-10-18] MEDS: HYDROCODONE/APAP (5/325) TAB PO PRN ×2 (08:57→22:37)
[2016-10-18] MEDS: CEPHALEXIN 250 MG CAP PO SCH ×2 (09:09→20:16)
--- NOTE | 2016-10-18 09:14 | QN ---
Documentation Comment After informed consent obtained patient's right biceps tendon was identified trigger point was marked. Site was cleaned and prepped. Using a 23-gauge 1 inch needle the rosangela-tendon sheath was entered and infiltrated with approximately 3 cc of 0.25% bupivacaine and 10 mg of Kenalog and a mixture. The patient reported 3 minutes post procedure approximately 30% reduction in symptoms and improve mobility. There were no complications of the procedure. TOMER GARCIA MD Oct 18, 2016 09:14
--- NOTE | 2016-10-18 09:19 | PN ---
Date/Time of Note Date/Time of Note DATE: 10/18/16 TIME: 09:14 Assessment/Plan VTE Prophylaxis VTE Prophylaxis Intervention: heparin Lines/Catheters IV C[facility]ter Type [facility]from [facility] Saline Lock Urinary Cath still in place: No Assessment/Plan Problems: (1) Tendinopathy of right biceps tendon Status: Acute Comment: Patient is improved after trigger point injection. Continue with rehabilitative care (2) COPD (chronic obstructive pulmonary disease) Status: Chronic Comment: Good control with current medication regimen. Qualifiers: COPD type: emphysema Emphysema type: panlobular Qualified Code: J43.1 - Panlobular emphysema (3) Sarcoidosis Status: Chronic Comment: Stable on low-dose steroids without disease activity (4) ESRD (end stage renal disease) on dialysis Status: Chronic Comment: Continues on hemodialysis. Due for dialysis tomorrow then I anticipate discharge. Arrangements have been made for her to return to her outpatient dialysis center (5) Hypertension associated with chronic kidney disease due to type 2 diabetes mellitus Status: Chronic Comment: Adequate control (6) Dens fracture Status: Acute Qualifiers: Encounter type: subsequent encounter Fracture healing: with routine healing Qualified Code: S12.100D - Dens fracture, with routine healing, subsequent encounter (7) Diastolic dysfunction Status: Chronic Comment: Stable and controlled on current regimen (8) Hyperlipidemia Status: Chronic Comment: Controlled statins Qualifiers: Hyperlipidemia type: pure hypercholesterolemia Qualified Code: E78.00 - Pure hypercholesterolemia (9) Obstructive sleep apnea Status: Chronic Comment: Patient declines CPAP/BiPAP (10) Status post transcatheter aortic valve replacement (TAVR) using bioprosthesis Status: Acute Comment: Fully operational and stable Subjective 24 Hr Interval Summary Free Text/Dictation Patient reports she was still having right shoulder/arm pain. This improved post procedure please see note Constitutional: no complaints (No fevers chills or sweats) Respiratory: no complaints (No shortness of breath no dyspnea on exertion) Cardiovascular: no complaints Gastrointestinal: no complaints Genitourinary: no complaints Exam/Review of Systems Vital Signs Vitals Vital Signs Date Time Temp Pulse Resp B/P Pulse Ox O2 Delivery O2 Flow Rate FiO2 10/18/16 07:34 97.9 91 18 124/52 95 Intake and Output 10/17/16 10/17/16 10/18/16 15:00 23:00 07:00 Intake Total 1120 ml Output Total 1801 ml Balance -681 ml Exam Constitutional: alert, oriented Neck: other (Hard cervical collar) Respiratory: clear to auscultation, normal air movement Cardiovascular: nl pulses, regular rate and rhythm Gastrointestinal: nl liver, spleen, non-tender, soft Extremities: other (Right biceps tendinitis) Results Result Diagram: 10/17/16 0630 10/17/16 0630 Results 24 hrs Laboratory Tests Test 10/17/16 13:30 10/18/16 06:30 10/18/16 07:49 Prothrombin Time 16.9 #H 18.1 H Prothrombin Time Ratio 1.3 1.4 INR International Normalized Ratio 1.37 1.49 Bedside Glucose 87 Medications Medications Current Medications Sodium Biphosphate/ Sodium Phosphate (Fleet Enema) 133 ml DAILY PRN [place] CONSTIPATION; Start 09/28/16 at 23:00 Tramadol HCl (Ultram) 50 mg Q8H PRN PO PAIN Last administered on 10/16/16 08:40 ; Admin Dose 50 MG; Start 09/28/16 at 23:00 Prednisone (Prednisone) 1 mg QHS PO Last administered on 10/17/16 20:48; Admin Dose 1 MG; Start 09/29/16 at 21:00 Prednisone (Prednisone) 4 mg DAILY PO Last administered on 10/18/16 08:47; Admin Dose 4 MG; Start 09/29/16 at 09:00 Salmeterol Xinafoate/ Fluticasone (Advair 250/50 Diskus) 1 inh BID INH Last administered on 10/18/16 08:45; Admin Dose 1 INH; Start 09/29/16 at 09:00 Miscellaneous Information 1 ea NOTE XX ; Start 09/28/16 at 23:00 Glucose (Glutose) 15 gm Q15M PRN PO DECREASED GLUCOSE; Start 09/28/16 at 23:00 Glucose (Glutose) 22.5 gm Q15M PRN PO DECREASED GLUCOSE; Start 09/28/16 at 23: 00 Dextrose (D50w Syringe) 25 ml Q15M PRN IV DECREASED GLUCOSE; Start 09/28/16 at 23:00 Dextrose (D50w Syringe) 50 ml Q15M PRN IV DECREASED GLUCOSE; Start 09/28/16 at 23:00 Glucagon (Glucagen) 1 mg Q15M PRN IM DECREASED GLUCOSE; Start 09/28/16 at 23:00 Glucose (Glutose) 15 gm Q15M PRN BUCCAL DECREASED GLUCOSE; Start 09/28/16 at 23 :00 Linagliptin (Tradjenta) 5 mg DAILY PO Last administered on 10/18/16 08:47; Admin Dose 5 MG; Start 09/29/16 at 09:00 Metoprolol Tartrate (Lopressor) 25 mg BID PO Last administered on 10/18/16 08: 46; Admin Dose 25 MG; Start 09/29/16 at 09:00 Acetaminophen/ Hydrocodone Bitart ([place] (5/325)) 1 tab Q6H PRN PO PAIN Last administered on 10/18/16 08:57; Admin Dose 1 TAB; Start 09/28/16 at 23:00 Acetaminophen/ Hydrocodone Bitart ([place] (5/325)) 2 tab Q6H PRN PO PAIN Last administered on 10/04/16 08:33; Admin Dose 2 TAB; Start 09/28/16 at 23:00; Status Future Hold Famotidine (Pepcid) 40 mg QHS PO Last administered on 10/17/16 20:45; Admin Dose 40 MG; Start 09/29/16 at 21:00 Fenofibrate (Tricor) 48 mg QAM PO Last administered on 10/18/16 08:47; Admin Dose 48 MG; Start 09/29/16 at 09:00 Folic Acid (Folic Acid) 1 mg BID PO Last administered on 10/18/16 08:46; Admin Dose 1 MG; Start 09/29/16 at 09:00 Eye Lubricant (Artificial Tears Oph) 2 drop Q2H PRN BOTH EYES DRY EYES; Start 09/28/16 at 23:30 Atorvastatin Calcium (Lipitor) 40 mg DAILY@21 PO Last administered on 10/17/16 20:46; Admin Dose 40 MG; Start 09/29/16 at 21:00 Docusate Sodium (Colace) 100 mg Q12H PRN PO CONSTIPATION; Start 09/28/16 at 23: 30 Epoetin César (Epogen (Esrd)) 10,000 units MoWeFr@17 SC Last administered on 10/17 17:35; Admin Dose 10,000 UNITS; Start 09/30/16 at 17:00 Docusate Sodium (Colace) 100 mg BID PO Last administered on 10/18/16 08:46; Admin Dose 100 MG; Start 09/29/16 at 09:00 Senna (Senokot) 1 tab HS PO Last administered on 10/15/16 20:10; Admin Dose 1 TAB; Start 09/29/16 at 21:00 Bisacodyl (Dulcolax Supp) 10 mg DAILY PRN [place] CONSTIPATION; Start 09/29/16 at 05 :30 Magnesium Hydroxide (Milk Of Mag) 30 ml BID PRN PO CONSTIPATION Last administered on 10/04/16 08:33; Admin Dose 30 ML; Start 09/29/16 at 05:30 Gabapentin (Neurontin) 100 mg TID PO Last administered on 10/18/16 08:46; Admin Dose 100 MG; Start 10/04/16 at 13:00 Warfarin Sodium (Coumadin) 4 mg DAILY@17 PO Last administered on 10/17/16 17:33 ; Admin Dose 4 MG; Start 10/14/16 at 17:00 Collagenase (Santyl) 1 applic DAILY TOP Last administered on 10/18/16 08:48; Admin Dose 1 APPLIC; Start 10/12/16 at 16:30 Carbamide Peroxide (Debrox Otic) 10 drop BID BOTH EARS Last administered on 10/18 08:45; Admin Dose 10 DROP; Start 10/13/16 at 21:00; Stop 10/18/16 at 20:59 Cephalexin (Keflex) 250 mg Q12 PO Last administered on 10/18/16 09:09; Admin Dose 250 MG; Start 10/17/16 at 21:00 TOMER GARCIA MD Oct 18, 2016 09:19
--- NOTE | 2016-10-18 10:39 | CONS ---
Date/Time of Note Date/Time of Note DATE: 10/18/16 TIME: 10:39 Consult Date/Type/Reason Admit Date/Time Sep 28, 2016 at 22:05 Type of Consultation: renal Subjective Comfortable Objective Lungs clear anteriorly Contact-guard to standby assist ambulation Scalp wound improving Vital Signs Date Time Temp Pulse Resp B/P Pulse Ox O2 Delivery O2 Flow Rate FiO2 10/18/16 07:34 97.9 91 18 124/52 95 Intake and Output 10/17/16 10/17/16 10/18/16 15:00 23:00 07:00 Intake Total 1120 ml Output Total 1801 ml Balance -681 ml Results/Medications Result Diagram: 10/17/16 0630 10/17/16 0630 Results 24 hrs Laboratory Tests Test 10/17/16 13:30 10/18/16 06:30 10/18/16 07:49 Prothrombin Time 16.9 #H 18.1 H Prothrombin Time Ratio 1.3 1.4 INR International Normalized Ratio 1.37 1.49 Bedside Glucose 87 Medications Current Medications Sodium Biphosphate/ Sodium Phosphate (Fleet Enema) 133 ml DAILY PRN [place] CONSTIPATION; Start 09/28/16 at 23:00 Tramadol HCl (Ultram) 50 mg Q8H PRN PO PAIN Last administered on 10/16/16 08:40 ; Admin Dose 50 MG; Start 09/28/16 at 23:00 Prednisone (Prednisone) 1 mg QHS PO Last administered on 10/17/16 20:48; Admin Dose 1 MG; Start 09/29/16 at 21:00 Prednisone (Prednisone) 4 mg DAILY PO Last administered on 10/18/16 08:47; Admin Dose 4 MG; Start 09/29/16 at 09:00 Salmeterol Xinafoate/ Fluticasone (Advair 250/50 Diskus) 1 inh BID INH Last administered on 10/18/16 08:45; Admin Dose 1 INH; Start 09/29/16 at 09:00 Miscellaneous Information 1 ea NOTE XX ; Start 09/28/16 at 23:00 Glucose (Glutose) 15 gm Q15M PRN PO DECREASED GLUCOSE; Start 09/28/16 at 23:00 Glucose (Glutose) 22.5 gm Q15M PRN PO DECREASED GLUCOSE; Start 09/28/16 at 23: 00 Dextrose (D50w Syringe) 25 ml Q15M PRN IV DECREASED GLUCOSE; Start 09/28/16 at 23:00 Dextrose (D50w Syringe) 50 ml Q15M PRN IV DECREASED GLUCOSE; Start 09/28/16 at 23:00 Glucagon (Glucagen) 1 mg Q15M PRN IM DECREASED GLUCOSE; Start 09/28/16 at 23:00 Glucose (Glutose) 15 gm Q15M PRN BUCCAL DECREASED GLUCOSE; Start 09/28/16 at 23 :00 Linagliptin (Tradjenta) 5 mg DAILY PO Last administered on 10/18/16 08:47; Admin Dose 5 MG; Start 09/29/16 at 09:00 Metoprolol Tartrate (Lopressor) 25 mg BID PO Last administered on 10/18/16 08: 46; Admin Dose 25 MG; Start 09/29/16 at 09:00 Acetaminophen/ Hydrocodone Bitart ([place] (5/325)) 1 tab Q6H PRN PO PAIN Last administered on 10/18/16 08:57; Admin Dose 1 TAB; Start 09/28/16 at 23:00 Acetaminophen/ Hydrocodone Bitart ([place] (5/325)) 2 tab Q6H PRN PO PAIN Last administered on 10/04/16 08:33; Admin Dose 2 TAB; Start 09/28/16 at 23:00; Status Future Hold Famotidine (Pepcid) 40 mg QHS PO Last administered on 10/17/16 20:45; Admin Dose 40 MG; Start 09/29/16 at 21:00 Fenofibrate (Tricor) 48 mg QAM PO Last administered on 10/18/16 08:47; Admin Dose 48 MG; Start 09/29/16 at 09:00 Folic Acid (Folic Acid) 1 mg BID PO Last administered on 10/18/16 08:46; Admin Dose 1 MG; Start 09/29/16 at 09:00 Eye Lubricant (Artificial Tears Oph) 2 drop Q2H PRN BOTH EYES DRY EYES; Start 09/28/16 at 23:30 Atorvastatin Calcium (Lipitor) 40 mg DAILY@21 PO Last administered on 10/17/16 20:46; Admin Dose 40 MG; Start 09/29/16 at 21:00 Docusate Sodium (Colace) 100 mg Q12H PRN PO CONSTIPATION; Start 09/28/16 at 23: 30 Epoetin César (Epogen (Esrd)) 10,000 units MoWeFr@17 SC Last administered on 10/17 17:35; Admin Dose 10,000 UNITS; Start 09/30/16 at 17:00 Docusate Sodium (Colace) 100 mg BID PO Last administered on 10/18/16 08:46; Admin Dose 100 MG; Start 09/29/16 at 09:00 Senna (Senokot) 1 tab HS PO Last administered on 10/15/16 20:10; Admin Dose 1 TAB; Start 09/29/16 at 21:00 Bisacodyl (Dulcolax Supp) 10 mg DAILY PRN [place] CONSTIPATION; Start 09/29/16 at 05 :30 Magnesium Hydroxide (Milk Of Mag) 30 ml BID PRN PO CONSTIPATION Last administered on 10/04/16 08:33; Admin Dose 30 ML; Start 09/29/16 at 05:30 Gabapentin (Neurontin) 100 mg TID PO Last administered on 10/18/16 08:46; Admin Dose 100 MG; Start 10/04/16 at 13:00 Warfarin Sodium (Coumadin) 4 mg DAILY@17 PO Last administered on 10/17/16 17:33 ; Admin Dose 4 MG; Start 10/14/16 at 17:00 Collagenase (Santyl) 1 applic DAILY TOP Last administered on 10/18/16 08:48; Admin Dose 1 APPLIC; Start 10/12/16 at 16:30 Carbamide Peroxide (Debrox Otic) 10 drop BID BOTH EARS Last administered on 10/18 08:45; Admin Dose 10 DROP; Start 10/13/16 at 21:00; Stop 10/18/16 at 20:59 Cephalexin (Keflex) 250 mg Q12 PO Last administered on 10/18/16 09:09; Admin Dose 250 MG; Start 10/17/16 at 21:00 Assessment/Plan Additional Assessment/Plan Rehab- C2 fracture and BHT Continue rehab treatment plan and family training, with goal of discharge 10/19 Wound- wound care. offloadinh with customized [place] collar, and good nutrition pain syndrome- Pain controlled End-stage renal disease-dialysis per internal medicine/nephrology. Dysphagia-mechanical soft diet per ST. Maintain aspiration precautions. Continue ST. CAD status post stent. Continue medical management. Sarcoidosis. On steroids per internal medicine/pulmonary. Diabetes mellitus type 2 with diabetic polyneuropathy. Blood sugars controlled, continue current management. Continue gabapentin. Hypertension. BP controlled. Continue current management. Chronic atrial fibrillation. Rate controlled. Continue medical management per internal medicine/cardiology. COPD. Continue to monitor pulmonary status, stable. Continue breathing treatments. Anemia of chronic disease. On epogen per nephrology/internal medicine. Monitor hemoglobin/hematocrit. SYDNEY ROGERS MD Oct 18, 2016 10:39
--- NOTE | 2016-10-18 11:12 | CONS ---
Date/Time of Note Date/Time of Note DATE: 10/18/16 TIME: 11:11 Assessment/Plan Assessment/Plan Additional Assessment/Plan 1. Stable post cx spine fx 2. CKD, to have HD tomm 3. Anemia has been stable 4. Blood pressure has been stable 5. Anticipate dc tomm Consultation Date/Type/Reason Admit Date/Time Sep 28, 2016 at 22:05 Type of Consultation: renal Detailed Summary Respiratory: No cough, No shortness of breath Cardiovascular: No chest pain Gastrointestinal: no complaints Genitourinary: no complaints Musculoskeletal: no complaints Exam/Review of Systems Vital Signs Vitals Vital Signs Date Time Temp Pulse Resp B/P Pulse Ox O2 Delivery O2 Flow Rate FiO2 10/18/16 07:34 97.9 91 18 124/52 95 Intake and Output 10/17/16 10/17/16 10/18/16 15:00 23:00 07:00 Intake Total 1120 ml Output Total 1801 ml Balance -681 ml Exam Neck: No jvd Respiratory: clear to auscultation Cardiovascular: regular rate and rhythm Gastrointestinal: soft Extremities: No tenderness (bilat) Results Result Diagram: 10/17/16 0630 10/17/16 0630 Results 24 hrs Laboratory Tests Test 10/17/16 13:30 10/18/16 06:30 10/18/16 07:49 Prothrombin Time 16.9 #H 18.1 H Prothrombin Time Ratio 1.3 1.4 INR International Normalized Ratio 1.37 1.49 Bedside Glucose 87 Medications Medications Current Medications Sodium Biphosphate/ Sodium Phosphate (Fleet Enema) 133 ml DAILY PRN [place] CONSTIPATION; Start 09/28/16 at 23:00 Tramadol HCl (Ultram) 50 mg Q8H PRN PO PAIN Last administered on 10/16/16 08:40 ; Admin Dose 50 MG; Start 09/28/16 at 23:00 Prednisone (Prednisone) 1 mg QHS PO Last administered on 10/17/16 20:48; Admin Dose 1 MG; Start 09/29/16 at 21:00 Prednisone (Prednisone) 4 mg DAILY PO Last administered on 10/18/16 08:47; Admin Dose 4 MG; Start 09/29/16 at 09:00 Salmeterol Xinafoate/ Fluticasone (Advair 250/50 Diskus) 1 inh BID INH Last administered on 10/18/16 08:45; Admin Dose 1 INH; Start 09/29/16 at 09:00 Miscellaneous Information 1 ea NOTE XX ; Start 09/28/16 at 23:00 Glucose (Glutose) 15 gm Q15M PRN PO DECREASED GLUCOSE; Start 09/28/16 at 23:00 Glucose (Glutose) 22.5 gm Q15M PRN PO DECREASED GLUCOSE; Start 09/28/16 at 23: 00 Dextrose (D50w Syringe) 25 ml Q15M PRN IV DECREASED GLUCOSE; Start 09/28/16 at 23:00 Dextrose (D50w Syringe) 50 ml Q15M PRN IV DECREASED GLUCOSE; Start 09/28/16 at 23:00 Glucagon (Glucagen) 1 mg Q15M PRN IM DECREASED GLUCOSE; Start 09/28/16 at 23:00 Glucose (Glutose) 15 gm Q15M PRN BUCCAL DECREASED GLUCOSE; Start 09/28/16 at 23 :00 Linagliptin (Tradjenta) 5 mg DAILY PO Last administered on 10/18/16 08:47; Admin Dose 5 MG; Start 09/29/16 at 09:00 Metoprolol Tartrate (Lopressor) 25 mg BID PO Last administered on 10/18/16 08: 46; Admin Dose 25 MG; Start 09/29/16 at 09:00 Acetaminophen/ Hydrocodone Bitart ([place] (5/325)) 1 tab Q6H PRN PO PAIN Last administered on 10/18/16 08:57; Admin Dose 1 TAB; Start 09/28/16 at 23:00 Acetaminophen/ Hydrocodone Bitart ([place] (5/325)) 2 tab Q6H PRN PO PAIN Last administered on 10/04/16 08:33; Admin Dose 2 TAB; Start 09/28/16 at 23:00; Status Future Hold Famotidine (Pepcid) 40 mg QHS PO Last administered on 10/17/16 20:45; Admin Dose 40 MG; Start 09/29/16 at 21:00 Fenofibrate (Tricor) 48 mg QAM PO Last administered on 10/18/16 08:47; Admin Dose 48 MG; Start 09/29/16 at 09:00 Folic Acid (Folic Acid) 1 mg BID PO Last administered on 10/18/16 08:46; Admin Dose 1 MG; Start 09/29/16 at 09:00 Eye Lubricant (Artificial Tears Oph) 2 drop Q2H PRN BOTH EYES DRY EYES; Start 09/28/16 at 23:30 Atorvastatin Calcium (Lipitor) 40 mg DAILY@21 PO Last administered on 10/17/16 20:46; Admin Dose 40 MG; Start 09/29/16 at 21:00 Docusate Sodium (Colace) 100 mg Q12H PRN PO CONSTIPATION; Start 09/28/16 at 23: 30 Epoetin César (Epogen (Esrd)) 10,000 units MoWeFr@17 SC Last administered on 10/17 17:35; Admin Dose 10,000 UNITS; Start 09/30/16 at 17:00 Docusate Sodium (Colace) 100 mg BID PO Last administered on 10/18/16 08:46; Admin Dose 100 MG; Start 09/29/16 at 09:00 Senna (Senokot) 1 tab HS PO Last administered on 10/15/16 20:10; Admin Dose 1 TAB; Start 09/29/16 at 21:00 Bisacodyl (Dulcolax Supp) 10 mg DAILY PRN [place] CONSTIPATION; Start 09/29/16 at 05 :30 Magnesium Hydroxide (Milk Of Mag) 30 ml BID PRN PO CONSTIPATION Last administered on 10/04/16 08:33; Admin Dose 30 ML; Start 09/29/16 at 05:30 Gabapentin (Neurontin) 100 mg TID PO Last administered on 10/18/16 08:46; Admin Dose 100 MG; Start 10/04/16 at 13:00 Warfarin Sodium (Coumadin) 4 mg DAILY@17 PO Last administered on 10/17/16 17:33 ; Admin Dose 4 MG; Start 10/14/16 at 17:00 Collagenase (Santyl) 1 applic DAILY TOP Last administered on 10/18/16 08:48; Admin Dose 1 APPLIC; Start 10/12/16 at 16:30 Carbamide Peroxide (Debrox Otic) 10 drop BID BOTH EARS Last administered on 10/18 08:45; Admin Dose 10 DROP; Start 10/13/16 at 21:00; Stop 10/18/16 at 20:59 Cephalexin (Keflex) 250 mg Q12 PO Last administered on 7/4/17at 09:09; Admin Dose 250 MG; Start 10/17/16 at 21:00 ARISTIDES WATKINS MD Oct 18, 2016 11:12
[2016-10-18] MEDS: WARFARIN 2 MG TAB PO SCH (17:17)
[2016-10-18 20:00] VITALS: BP 121/60; RESP 18
[2016-10-18] MEDS: ATORVASTATIN 40 MG TAB PO SCH (20:17)
[2016-10-18] MEDS: FAMOTIDINE 20 MG TAB PO SCH (20:17)
[2016-10-18] MEDS: traMADol 50 MG TAB PO PRN (20:18)
[2016-10-18] MEDS: SENNA TAB PO SCH (20:25)
[2016-10-19] VITALS (7 sets, daily range): BP systolic 118–133; BP diastolic 55–65; PULSE 76–81
[2016-10-19] MEDS: ZOLPIDEM 5 MG TAB PO PRN (02:24)
--- NOTE | 2016-10-19 08:21 | CONS ---
Date/Time of Note Date/Time of Note DATE: 10/19/16 TIME: 08:19 Assessment/Plan Assessment/Plan Additional Assessment/Plan 1. Cx spine fx, stable 2. CKD, now being dialyzed 3. Anemia has been stable 4. Can be dc today per acute rehab with next hd monday Consultation Date/Type/Reason Admit Date/Time Sep 28, 2016 at 22:05 Type of Consultation: renal Detailed Summary Respiratory: No cough, No pleuritic pain Cardiovascular: No chest pain Gastrointestinal: no complaints Genitourinary: no complaints Musculoskeletal: No neck pain Exam/Review of Systems Vital Signs Vitals Vital Signs Date Time Temp Pulse Resp B/P Pulse Ox O2 Delivery O2 Flow Rate FiO2 10/19/16 07:40 77 10/19/16 07:40 18 10/18/16 21:36 Nasal Cannula 2.0 10/18/16 20:00 98.5 121/60 96 Intake and Output 10/18/16 10/18/16 10/19/16 15:00 23:00 07:00 Intake Total 820 ml 520 ml Balance 820 ml 520 ml Exam Neck: No jvd Respiratory: clear to auscultation Cardiovascular: regular rate and rhythm, No irregular rhythm Gastrointestinal: soft, No tender Extremities: No edema Results Result Diagram: 10/17/16 0630 10/17/16 0630 Results 24 hrs Laboratory Tests Test 10/19/16 07:51 Bedside Glucose 105 Medications Medications Current Medications Sodium Biphosphate/ Sodium Phosphate (Fleet Enema) 133 ml DAILY PRN [place] CONSTIPATION; Start 09/28/16 at 23:00 Tramadol HCl (Ultram) 50 mg Q8H PRN PO PAIN Last administered on 10/18/16 20:18 ; Admin Dose 50 MG; Start 09/28/16 at 23:00 Prednisone (Prednisone) 1 mg QHS PO Last administered on 10/18/16 20:17; Admin Dose 1 MG; Start 09/29/16 at 21:00 Prednisone (Prednisone) 4 mg DAILY PO Last administered on 10/18/16 08:47; Admin Dose 4 MG; Start 09/29/16 at 09:00 Salmeterol Xinafoate/ Fluticasone (Advair 250/50 Diskus) 1 inh BID INH Last administered on 10/18/16 08:45; Admin Dose 1 INH; Start 09/29/16 at 09:00 Miscellaneous Information 1 ea NOTE XX ; Start 09/28/16 at 23:00 Glucose (Glutose) 15 gm Q15M PRN PO DECREASED GLUCOSE; Start 09/28/16 at 23:00 Glucose (Glutose) 22.5 gm Q15M PRN PO DECREASED GLUCOSE; Start 09/28/16 at 23: 00 Dextrose (D50w Syringe) 25 ml Q15M PRN IV DECREASED GLUCOSE; Start 09/28/16 at 23:00 Dextrose (D50w Syringe) 50 ml Q15M PRN IV DECREASED GLUCOSE; Start 09/28/16 at 23:00 Glucagon (Glucagen) 1 mg Q15M PRN IM DECREASED GLUCOSE; Start 09/28/16 at 23:00 Glucose (Glutose) 15 gm Q15M PRN BUCCAL DECREASED GLUCOSE; Start 09/28/16 at 23 :00 Linagliptin (Tradjenta) 5 mg DAILY PO Last administered on 10/18/16 08:47; Admin Dose 5 MG; Start 09/29/16 at 09:00 Metoprolol Tartrate (Lopressor) 25 mg BID PO Last administered on 10/18/16 20: 17; Admin Dose 25 MG; Start 09/29/16 at 09:00 Acetaminophen/ Hydrocodone Bitart ([place] (5/325)) 1 tab Q6H PRN PO PAIN Last administered on 10/18/16 22:37; Admin Dose 1 TAB; Start 09/28/16 at 23:00 Acetaminophen/ Hydrocodone Bitart ([place] (5/325)) 2 tab Q6H PRN PO PAIN Last administered on 10/04/16 08:33; Admin Dose 2 TAB; Start 09/28/16 at 23:00; Status Future Hold Famotidine (Pepcid) 40 mg QHS PO Last administered on 10/18/16 20:17; Admin Dose 40 MG; Start 09/29/16 at 21:00 Fenofibrate (Tricor) 48 mg QAM PO Last administered on 10/18/16 08:47; Admin Dose 48 MG; Start 09/29/16 at 09:00 Folic Acid (Folic Acid) 1 mg BID PO Last administered on 10/18/16 20:18; Admin Dose 1 MG; Start 09/29/16 at 09:00 Eye Lubricant (Artificial Tears Oph) 2 drop Q2H PRN BOTH EYES DRY EYES; Start 09/28/16 at 23:30 Atorvastatin Calcium (Lipitor) 40 mg DAILY@21 PO Last administered on 10/18/16 20:17; Admin Dose 40 MG; Start 09/29/16 at 21:00 Docusate Sodium (Colace) 100 mg Q12H PRN PO CONSTIPATION; Start 09/28/16 at 23: 30 Epoetin César (Epogen (Esrd)) 10,000 units MoWeFr@17 SC Last administered on 10/17 17:35; Admin Dose 10,000 UNITS; Start 09/30/16 at 17:00 Docusate Sodium (Colace) 100 mg BID PO Last administered on 10/18/16 08:46; Admin Dose 100 MG; Start 09/29/16 at 09:00 Senna (Senokot) 1 tab HS PO Last administered on 10/15/16 20:10; Admin Dose 1 TAB; Start 09/29/16 at 21:00 Bisacodyl (Dulcolax Supp) 10 mg DAILY PRN [place] CONSTIPATION; Start 09/29/16 at 05 :30 Magnesium Hydroxide (Milk Of Mag) 30 ml BID PRN PO CONSTIPATION Last administered on 10/04/16 08:33; Admin Dose 30 ML; Start 09/29/16 at 05:30 Gabapentin (Neurontin) 100 mg TID PO Last administered on 10/18/16 20:17; Admin Dose 100 MG; Start 10/04/16 at 13:00 Warfarin Sodium (Coumadin) 4 mg DAILY@17 PO Last administered on 10/18/16 17:17 ; Admin Dose 4 MG; Start 10/14/16 at 17:00 Collagenase (Santyl) 1 applic DAILY TOP Last administered on 10/18/16 08:48; Admin Dose 1 APPLIC; Start 10/12/16 at 16:30 Cephalexin (Keflex) 250 mg Q12 PO Last administered on 10/18/16 20:16; Admin Dose 250 MG; Start 10/17/16 at 21:00 ARISTIDES WATKINS MD Oct 19, 2016 08:21
[2016-10-19] MEDS: COLLAGENASE 30 GM TUBE TOP SCH (09:00)
[2016-10-19] MEDS: METOPROLOL 25 MG TAB PO SCH (09:00)
[2016-10-19] MEDS: CEPHALEXIN 250 MG CAP PO SCH (10:19)
[2016-10-19] MEDS: FENOFIBRATE 48 MG TAB PO SCH (10:19)
[2016-10-19] MEDS: LINAGLIPTIN 5 MG TABLET PO SCH (10:19)
[2016-10-19] MEDS: GABAPENTIN 100 MG CAP PO SCH ×2 (10:20→12:22)
[2016-10-19] MEDS: predniSONE 1 MG TAB PO SCH (10:20)
[2016-10-19] MEDS: HYDROCODONE/APAP (5/325) TAB PO PRN (10:20)
[2016-10-19] MEDS: DOCUSATE SODIUM 100 MG CAP PO SCH (10:21)
[2016-10-19] MEDS: SALMETEROL/FLUTICASONE 250/50 INHA INH SCH (10:21)
[2016-10-19] MEDS: FOLIC ACID 1 MG TAB PO SCH (10:21)
[2016-10-19] MEDS: SEVELAMER CARBONATE 0.8 GM PKT PO SCH ×2 (10:27→12:22)
--- NOTE | 2016-10-19 11:51 | DS ---
Date/Time of Note Date/Time of Note DATE: 10/19/16 TIME: 11:46 Discharge Summary Admission/Discharge Info Admit Date/Time Sep 28, 2016 at 22:05 Discharge Date/Time Discharge Diagnosis 1. Cervical myelopathy and C2 fracture / blunt head trauma. 2. End-stage renal disease requiring dialysis. 3. Polyneuropathy. 4. Dysphagia improved. 5. Coronary artery disease. 6. Sarcoidosis. 7. Diabetes mellitus type 2. 8. Hypertension. 9. Posterior scalp wound Patient Condition: Good Hospital Course Patient was admitted for comprehensive interdisciplinary rehabilitative treatment plan. Patient made excellent functional gains during the course of the stay. Patient progressed from an initial maximal assist for self-care and mobility tasks. Patient progressed to the point of standby to contact-guard assist for self-care and mobility including ambulating over 150 feet with the use of a front wheel walker. Patient was noted to complain of posterior scalp pain. Patient was noted to have a wound underneath the [place] collar. Wound care was instituted and the [place] collar was modified so as to not apply pressure to the posterior scalp. Patient will be discharged home with recommendation of home health physical therapy occupational therapy and home health nursing follow-up. Patient will follow up with her physician assistant primary care in addition to neurosurgery. The discharge medications are per the medication reconciliation sheet Home Meds Reported Medications Lanthanum Carbonate (Fosrenol) 1,000 Mg Powd.pack, 1000 MG PO TID, #90 TAB 09/07/16 Nifedipine* (Nifedipine ER*) 90 Mg Tablet.er, 90 MG PO DAILY, TAB 09/07/16 Simvastatin* (Zocor*) 40 Mg Tablet, 40 MG PO QHS, #30 TAB 09/07/16 Warfarin Sodium* (Warfarin Sodium*) 4 Mg Tablet, 4 MG PO DAILY, TAB TAKE 1TAB ALTERNATING WITH 2 TABS DAILY 09/07/16 Sitagliptin* (Januvia*) 25 Mg Tablet, 25 MG PO DAILY, #30 TAB 09/07/16 Metoprolol Tartrate* (Lopressor*) 25 Mg Tab, 12.5 MG PO BID, #60 TAB 09/07/16 Folic Acid* (Folic Acid*) 1 Mg Tablet, 2 MG PO DAILY, TAB 05/07/14 Follow-up Plan Home health nursing for daily nursing visits for wound care in addition to home health physical therapy and Occupational Therapy. Patient will also follow-up with Dr. Welch, and neurosurgery. Primary Care Provider Shelton Welch MD Pending Labs Laboratory Tests Test 10/19/16 07:51 Bedside Glucose 105mg/dL (70-220) SYDNEY ROGERS MD Oct 19, 2016 11:50
[2016-10-19] MEDS: EPOETIN 10000 UNITS/1 ML INJ (ESRD) SC SCH (12:26)
== END 2016-10-19 13:10 | disposition home health service (06) | DRG 559 ==
LOC: VRC 22:05
PROVIDERS: ADMIT Physical Medicine & Rehabilitation; ATTEND Internal Medicine
PROC: F07Z5ZZ Bed Mobility Treatment (ICD-10-PCS; principal; 2016-09-29)
PROC: F08Z2ZZ Grooming/Personal Hygiene Treatment (ICD-10-PCS; 2016-09-29)
PROC: F06ZDZZ Swallowing Dysfunction Treatment (ICD-10-PCS; 2016-09-29)
PROC: 5A1D60Z (ICD-10-PCS; 2016-09-29)
DX: S12.112D Nondisplaced Type II dens fracture, subsequent encounter for fracture with routine healing (principal); N18.6 End stage renal disease; I12.0 Hypertensive chronic kidney disease with stage 5 chronic kidney disease or end stage renal disease; E11.22 Type 2 diabetes mellitus with diabetic chronic kidney disease; I48.2 Chronic atrial fibrillation; D86.9 Sarcoidosis, unspecified; J44.9 Chronic obstructive pulmonary disease, unspecified; I48.91 Unspecified atrial fibrillation; G95.9 Disease of spinal cord, unspecified; Z71.3 Dietary counseling and surveillance; D64.9 Anemia, unspecified; R13.10 Dysphagia, unspecified; I25.10 Atherosclerotic heart disease of native coronary artery without angina pectoris; Z99.2 Dependence on renal dialysis; Z68.31 Body mass index [BMI] 31.0-31.9, adult; E66.9 Obesity, unspecified; Z95.2 Presence of prosthetic heart valve; I35.0 Nonrheumatic aortic (valve) stenosis; M79.601 Pain in right arm; G47.33 Obstructive sleep apnea (adult) (pediatric); Z79.4 Long term (current) use of insulin; Z79.01 Long term (current) use of anticoagulants
CPT/HCPCS: 74230; 80048; 80053; 80069; 82728; 82962; 83540; 84100; 85025; 85610; 86704; 86706; 86803; 87081; 87340; 90935; 92507; 92523; 92526; 92610; 92611; 93005; 93970; 94640; 94664; 97110; 97112; 97116; 97150; 97163; 97167; 97530; 97535; 97542; J1644; J1815; J7512; L0174; Q4081

== ENCOUNTER 2016-11-08 15:16 | Inpatient (IN) | payer MEDICARE, OTHER ==
[~2016-11-08] VITALS: Ht 157.5 cm; Wt 93.1 kg
[2016-11-08] MEDS ORDERED: SODIUM CHLORIDE 0.9% 1L BAG IV* STA (15:25)
[2016-11-08] MEDS ORDERED: CEFEPIME 2GM/50 ML (PMX) 50 ML IVPB STA (15:25)
--- NOTE | 2016-11-08 15:49 | ERA ---
ER Documentation Chief Complaint Date/Time DATE: 11/08/16 TIME: 15:47 Chief Complaint FEVER AND ALOC SINCE THIS MORNING HPI 76-year-old female is brought in by paramedics if she was sent for family for fever detected at home as well as being more altered than usual. No other history was given to the paramedics. Family is on the way. The patient herself is responsive but unable to appropriately answer many questions. ROS Unobtainable Medications Home Meds Reported Medications Lanthanum Carbonate (Fosrenol) 1,000 Mg Powd.pack, 1000 MG PO TID, #90 TAB 09/07/16 Nifedipine* (Nifedipine ER*) 90 Mg Tablet.er, 90 MG PO DAILY, TAB 09/07/16 Simvastatin* (Zocor*) 40 Mg Tablet, 40 MG PO QHS, #30 TAB 09/07/16 Warfarin Sodium* (Warfarin Sodium*) 4 Mg Tablet, 4 MG PO DAILY, TAB TAKE 1TAB ALTERNATING WITH 2 TABS DAILY 09/07/16 Sitagliptin* (Januvia*) 25 Mg Tablet, 25 MG PO DAILY, #30 TAB 09/07/16 Metoprolol Tartrate* (Lopressor*) 25 Mg Tab, 12.5 MG PO BID, #60 TAB 09/07/16 Folic Acid* (Folic Acid*) 1 Mg Tablet, 2 MG PO DAILY, TAB 05/07/14 Allergies Allergies: Coded Allergies: No Known Allergy (Unverified , 09/07/16) pt states she has no known allergies PMhx/Soc History of Surgery: Yes (PCI) Anesthesia Reaction: No (UNKNOWN) Hx 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 Disorder: No Hx Respiratory Disorders: Yes (COPD) Hx Cardiac Disorders: Yes (HTN ASSOCIATED W/ CKD, DIASTOLIC DYSFUNCTION; A-FIB) Hx Psychiatric Problems: No Hx Miscellaneous Medical Probl: Yes (polyneuropathy, BHT, COPD, ESRD on HD, C2 fracture, diastolic dysf., HTN,DM) Hx Alcohol Use: No Hx Substance Use: No Hx Tobacco Use: No Physical Exam Vitals Vital Signs Date Time Temp Pulse Resp B/P Pulse Ox O2 Delivery O2 Flow Rate FiO2 11/08/16 17:23 100.1 107 16 105/76 95 Room Air 11/08/16 15:49 Nasal Cannula 2 11/08/16 15:20 100.5 86 20 128/98 96 Physical Exam Const: [] Head: Atraumatic Eyes: Normal Conjunctiva ENT: Normal External Ears, Nose and Mouth. Neck: Full range of motion..~ No meningismus. Resp: Clear to auscultation bilaterally Cardio: Regular rate and rhythm, no murmurs Abd: Soft, non tender, non distended. Normal bowel sounds Skin: No petechiae or rashes Back: No midline or flank tenderness Ext: No cyanosis, or edema Neur: Awake and alert Psych: Normal Mood and Affect Result Diagram: 11/08/16 1540 11/08/16 1540 Results 24 hrs Laboratory Tests Test 11/08/16 15:40 White Blood Count 7.110^3/ul Red Blood Count 3.7610^6/ul Hemoglobin 11.4g/dl Hematocrit 35.1% Mean Corpuscular Volume 93.4fl Mean Corpuscular Hemoglobin 30.3pg Mean Corpuscular Hemoglobin Concent 32.5g/dl Red Cell Distribution Width 15.9% Platelet Count 62601^3/UL Mean Platelet Volume 11.4fl Neutrophils % 93.9% Lymphocytes % 4.0% Monocytes % 1.0% Eosinophils % 0.1% Basophils % 0.3% Nucleated Red Blood Cells % 0.0/100WBC Neutrophils # 6.610^3/ul Lymphocytes # 0.310^3/ul Monocytes # 0.110^3/ul Eosinophils # 0.010^3/ul Basophils # 0.010^3/ul Nucleated Red Blood Cells # 0.010^3/ul Prothrombin Time 24.2Sec Prothrombin Time Ratio 1.9 INR International Normalized Ratio 2.15 Activated Partial Thromboplast Time 38.7Sec Sodium Level 146mmol/L Potassium Level 5.0mmol/L Chloride Level 102mmol/L Carbon Dioxide Level 27mmol/L Anion Gap 22 Blood Urea Nitrogen 47mg/dl Creatinine 7.19mg/dl Glucose Level 110mg/dl Lactic Acid Level 2.1mmol/L Calcium Level 9.1mg/dl Total Bilirubin 0.1mg/dl Direct Bilirubin 0.00mg/dl Indirect Bilirubin 0.1mg/dl Aspartate Amino Transf (AST/SGOT) 32IU/L Alanine Aminotransferase (ALT/SGPT) 24IU/L Alkaline Phosphatase 55IU/L Troponin I 0.063ng/ml B-Type Natriuretic Peptide 39569LY/ML Total Protein 7.2g/dl Albumin 3.8g/dl Globulin 3.40g/dl Albumin/Globulin Ratio 1.11 Current Medications Medications (Trade) Dose Ordered Sig/Oneyda Route PRN Reason Start Time Stop Time Status Last Admin Dose Admin Sodium Chloride 3100 ml 3,100 ml BOLUS OVER 2 HOURS STAT IV* 11/08/16 15:25 11/08/16 15:27 DC 11/08/16 16:13 Cefepime HCl (Maxipime 2gm/50 ml (Pmx)) 50 ml @ 100 mls/hr ONCE STAT IVPB 11/08/16 15:25 11/08/16 15:54 DC 11/08/16 16:13 Metoprolol Tartrate 5 mg 5 mg ONCE ONCE IV 11/08/16 16:00 11/08/16 16:01 DC 11/08/16 16:14 Vancomycin HCl (Vancocin) 250 ml @ 125 mls/hr ONCE IVPB 11/08/16 18:00 11/08/16 19:59 IV Flush (NS 3 ml) 3 ml PER PROTOCOL IV 11/08/16 18:30 UNV Ondansetron HCl (Zofran Inj) 4 mg Q6H PRN IV NAUSEA AND/OR VOMITING 11/08/16 18:30 UNV Acetaminophen (Tylenol Tab) 650 mg Q6H PRN PO PAIN LEVEL 1-3 OR FEVER 11/08/16 18:30 UNV Docusate Sodium (Colace) 100 mg Q12H PRN PO CONSTIPATION 11/08/16 18:30 UNV Heparin Sodium (Porcine) (Heparin (5000 Units/0.5 ml)) 5,000 unit Q12 SC 11/08/16 21:00 UNV Miscellaneous Information (* Miscellaneous Pharmacy Order) Discontinue current oral sulfonylur... ONCE ONCE XX 11/08/16 18:30 11/08/16 18:31 UNV Diagnostic Test (Pha) (Accu-Chek) 1 XX 11/09/16 02:00 UNV Miscellaneous Information (* Miscellaneous Pharmacy Order) HYPOGLYCEMIA PROTOCOL w... ONCE ONCE XX 11/08/16 18:30 11/08/16 18:31 UNV Insulin Aspart (Novolog Insulin Pen) NOVOLOG *MILD* ALGORITHM WITH MEALS BEDTIME SC 7/25/17 21:00 UNV Miscellaneous Information (* Miscellaneous Pharmacy Order) Discontinue all previ... ONCE ONCE XX 11/08/16 18:30 11/08/16 18:31 UNV Vancomycin HCl VANCOMYCIN PER PHARMACY PER PROTOCOL XX 11/08/16 18:30 UNV Cefepime HCl (Maxipime 1gm/50 ml (Pmx)) 50 ml @ 100 mls/hr Q8 IVPB 11/08/16 22:00 UNV Procedures/MDM A. fib with RVR along with fever and dehydration. Heart rate was up to 130s. Source of the fever is not yet known. Cultures were taken. Patient was hydrated with a liter of normal saline additional fluid was not given as the patient does not have sepsis criteria and she is a dialysis patient. She needs dialysis tomorrow according to her schedule. She was given metoprolol 5 mg to to controlled A. fib with RVR. She was given cefepime and vancomycin empirically. She is anuric. Family arrived additional history was provided the patient has a cough that has been changing and increasing lately. When family is around she has normal mental status of being alert and oriented 2 and the family is not around she will not answer questions. I spoke with Dr. Wu will be admitting the patient to telemetry. Informed and patient will need dialysis tomorrow EKG interpretation: A. fib with RVR rate of 118, bifascicular block, left axis deviation, no prolonged QT interval cylinder devalver interpretation: Initial A. fib with RVR transition to rate controlled A. fib after metoprolol. No other arrhythmias Chest x-ray interpretation: Rotated chest x-ray, cardiomegaly, mild fluid in the fissure, I see no overt pulmonary edema, I see no obvious infiltrate, no pneumothorax, no fracture Critical care time 39 minutes: This includes treatment of A. fib with RVR and a febrile patient with multiple comorbidities, use of Actos medication metoprolol , very careful fluid administration in a dialysis patient, multiple visits patient's bedside to reassess status, chart reviewed, discussion with family, patient, admitting doctor. This does not include any billable procedures Departure Diagnosis: Primary Impression: Atrial fibrillation with RVR Additional Impressions: Fever Open scalp wound Condition: Serious TOMER THOMPSON DO Nov 08, 2016 15:49
[2016-11-08] MEDS ORDERED: METOPROLOL 5 MG INJ IV ONE (16:00)
[2016-11-08 16:01] LABS: ABNORMAL IP MESSAGE 1; BASOPHILS % 0.3 % (0.0-2.0); EOSINOPHILS % 0.1 % (0.0-7.0); HEMATOCRIT 35.1 % (37.0-47.0); HEMOGLOBIN 11.4 g/dl (12.0-16.0); LYMPHOCYTES # 0.3 10^3/ul (0.8-2.9); MEAN CORPUSCULAR HEMOGLOBIN 30.3 pg (29.0-33.0); MEAN CORPUSCULAR HGB CONC 32.5 g/dl (32.0-37.0); MEAN CORPUSCULAR VOLUME 93.4 fl (82.0-101.0); MEAN PLATELET VOLUME 11.4 fl (7.4-10.4); MONOCYTE # 0.1 10^3/ul (0.3-0.9); NEUTROPHIL # 6.6 10^3/ul (1.6-7.5); NEUTROPHILS % 93.9 % (39.0-77.0); PLATELET COUNT 191 10^3/UL (140-415); RED BLOOD COUNT 3.76 10^6/ul (4.20-5.40); RED CELL DISTRIBUTION WIDTH 15.9 % (11.5-14.5); WHITE BLOOD COUNT 7.1 10^3/ul (4.8-10.8)
[2016-11-08 16:08] LABS: POSITIVE DIFF @See below
[2016-11-08 16:11] LABS: INR 2.15; PROTIME 24.2 Sec (12.2-14.2); PT RATIO 1.9
[2016-11-08 16:12] LABS: PARTIAL THROMBOPLASTIN TIME 38.7 Sec (25.0-35.0)
[2016-11-08 16:14] LABS: ALBUMIN 3.8 g/dl (3.3-4.9); ALBUMIN/GLOBULIN RATIO 1.11; BILIRUBIN,INDIRECT 0.1 mg/dl (0-1.1); BILIRUBIN,TOTAL 0.1 mg/dl (0.2-1.3); CALCIUM 9.1 mg/dl (8.4-10.2); CREATININE 7.19 mg/dl (0.44-1.00); TOTAL PROTEIN 7.2 g/dl (6.1-8.1)
--- NOTE | 2016-11-08 16:25 | RADRPT ---
PROCEDURE: XR Chest. CLINICAL INDICATION: Cough and fever. TECHNIQUE: Single frontal view. COMPARISON: 09/13/2016. FINDINGS: The left arm PICC line has been removed. Mild pulmonary edema is unchanged. There is left basilar atelectasis, unchanged. The heart is enlarged. There is calcification in the aorta consistent with atherosclerosis. A bergman s arterial aortic valve replacement is present. There is no pleural effusion. There is no pneumothorax. IMPRESSION: 1. No change from 09/13/2016. RPTAT: QQ .Mp Fields MD, MD Date Time Electronically viewed and signed by .Mp Fields MD, MD on 11/08/2016 16:25 .R/
[2016-11-08 16:26] LABS: TROPONIN-I 0.063 ng/ml (0.00-0.12)
[2016-11-08] MEDS ORDERED: VANCOMYCIN 1 GM (PMX) 250 ML IVPB SCH (18:00)
[2016-11-08] MEDS ORDERED: NACL 0.9% 3 ML SYG IV SCH (18:30)
[2016-11-08] MEDS ORDERED: ONDANSETRON 4 MG INJ IV PRN (18:30)
[2016-11-08] MEDS ORDERED: ACETAMINOPHEN 325 MG TAB PO PRN (18:30)
[2016-11-08] MEDS ORDERED: VANCOMYCIN IV PER PHARMACY XX SCH (18:30)
[2016-11-08] MEDS ORDERED: DOCUSATE SODIUM 100 MG CAP PO PRN (18:30)
[2016-11-08] MEDS ORDERED: FAMO40TA52 PO (19:05)
[2016-11-08] MEDS ORDERED: GABA100C14 PO (19:05)
[2016-11-08] MEDS ORDERED: ATOR40TA68 PO (19:05)
[2016-11-08] MEDS ORDERED: HYDR-906 PO (19:06)
[2016-11-08] MEDS ORDERED: ADV25050 INHALATION (19:06)
[2016-11-08] MEDS ORDERED: FENO48TA4 PO (19:07)
[2016-11-08] MEDS ORDERED: SEVE800T7 PO (19:08)
[2016-11-08] MEDS ORDERED: LINA5TAB PO (19:08)
[2016-11-08] MEDS ORDERED: CELE200C PO (19:09)
[2016-11-08] MEDS ORDERED: ALBU18HF INHALATION (19:10)
[2016-11-08] MEDS ORDERED: WARF2TAB PO (19:11)
[2016-11-08] MEDS ORDERED: PRED1TAB2 PO (19:13)
[2016-11-08 19:15] VITALS: TEMP 99.1
[2016-11-08] MEDS ORDERED: GLUCOSE GEL 15 GRAM TUBE PO PRN ×2 (19:30)
[2016-11-08] MEDS ORDERED: GLUCAGON 1 MG INJ IM PRN (19:30)
[2016-11-08] MEDS ORDERED: GLUCOSE GEL 15 GRAM TUBE BUCCAL PRN (19:30)
[2016-11-08] MEDS ORDERED: DEXTROSE 50% 50 ML SYRINGE IV PRN ×2 (19:30)
--- NOTE | 2016-11-08 20:33 | RADRPT ---
PROCEDURE: CT Cervical Spine. CLINICAL INDICATION: Pain, fracture 3 weeks ago TECHNIQUE: A CT of the cervical spine was performed utilizing thin section axial images from the skull base through the thoracic inlet. Sagittal and coronal reformatted images were made. The CTDI vol is 22.22 mGy and the DLP is 45.96 mGycm. There is patient motion on multiple images. One or more the following dose reduction techniques were utilized: Automated exposure control, adjus tment of the mA and / or kV according to patient's size, or use of iterative reconstruction techniqu e. COMPARISON: CT cervical spine of 09/07/2016 and MRI of the cervical spine of 09/08/2016 FINDINGS: Marked diffuse osteopenia. Comminuted fracture deformity of C2 again seen. Minimally displaced transverse fracture courses thro ugh the C2 body and bilateral transverse foramina extending superiorly into the dens. There has been interval decrease in prevertebral soft tissue swelling since the previous study. Again seen, the sp inous process of C2 appears to be displaced approximately 3 mm. There is soft tissue density at the posterior aspect of the spinal canal at C2-3 which is more prominent than on the previous study whic h could represent epidural hematoma in addition to ligamentum flavum with impression on the posterio r aspect of the spinal cord. C3-4: Disk space narrowing and right subarticular and uncovertebral disk osteophyte complex resultin g in moderate to severe right foraminal stenosis. Mild left uncovertebral hypertrophy without forami nal or central canal stenosis. C4-5: Preservation of disk height. Moderate bilateral hypertrophic facet joint arthropathy. No jud inal stenosis. C5-6: There is disk space narrowing, endplate sclerosis and anterior endplate spurring. Moderate zainab ateral facet joint arthropathy. No foraminal or central canal stenosis. C6-7: Mild disk space narrowing. No significant disk bulge or protrusion is evident. There is no cinthya tral canal stenosis or foraminal narrowing. C7-T1: Mild disk space narrowing. No significant disk bulge or protrusion is evident. There is no ce ntral canal stenosis or foraminal narrowing. Curvature of the cervical spine with convexity to the left is again seen. Arterial calcification. Calcified lymph nodes in mediastinum consistent with old granulomatous disease. IMPRESSION: Diffuse osteopenia. Again seen is a comminuted minimally displaced fracture deformity of C2 coursing through the transverse neural foramina bilaterally extending superiorly into the dens with mild pos terior displacement of the right posterior vertebral body fracture fragment into the spinal canal an d extending below the level of the disk space which appears to extend minimally more inferiorly comp ared to previous study. Again seen the spinous process of C2 appears to be displaced approximately 3 mm. There is soft tissue density at the posterior aspect of the spinal canal at C2-3 which is more prominent than on the previous study which could represent epidural hematoma in addition to ligament um flavum or be secondary to infolding of ligamentum flavum secondary to settling of the fracture wi th impression on the posterior aspect of the spinal cord increased compared to previous study. Degenerative changes in the cervical spine including moderate to severe right foraminal stenosis at C3-4. Please see above. Critical result discussed with Dr. Hawkins at 08:25 p.m. on 11/08/2016. RPTAT: HJES .Grant Renteria MD, MD Date Time Electronically viewed and signed by .Grant Renteria MD, on 11/08/2016 20:33 .S/
[2016-11-08 21:19] VITALS: PULSE 90
[2016-11-08] MEDS: HEPARIN 5,000 UNIT/0.5 ML VIAL SC SCH (21:41)
[2016-11-08] MEDS: INSULIN ASPART [NOVOLOG] 3 ML PEN SC SCH (21:41)
[2016-11-08 22:21] VITALS: BP 102/56; RESP 19
[2016-11-08 22:29] VITALS: Ht 157.5 cm; Wt 93.1 kg
[2016-11-08] MEDS ORDERED: VANCOMYCIN 500MG/NS (PMX) 100 ML IVPB ONE (23:00)
[2016-11-08 23:38] VITALS: BP 97/51; RESP 19
[2016-11-09] VITALS (17 sets, daily range): BP systolic 79–120; BP diastolic 45–62; PULSE 68–85; RESP 17–19
[2016-11-09] MEDS: ACCU-CHEK XX SCH (02:00)
[2016-11-09 06:47] LABS: BASOPHIL # 0.1 10^3/ul (0.0-0.1); BASOPHILS % 0.4 % (0.0-2.0); EOSINOPHILS % 0.3 % (0.0-7.0); HEMATOCRIT 31.2 % (37.0-47.0); LYMPHOCYTES # 2.2 10^3/ul (0.8-2.9); LYMPHOCYTES % 13.7 % (15.0-51.0); MEAN CORPUSCULAR HEMOGLOBIN 30.4 pg (29.0-33.0); MEAN CORPUSCULAR HGB CONC 32.1 g/dl (32.0-37.0); MEAN CORPUSCULAR VOLUME 94.8 fl (82.0-101.0); MEAN PLATELET VOLUME 11.3 fl (7.4-10.4); MONOCYTES % 6.3 % (0.0-11.0); NEUTROPHIL # 12.5 10^3/ul (1.6-7.5); NEUTROPHILS % 78.8 % (39.0-77.0); PLATELET COUNT 166 10^3/UL (140-415); RED BLOOD COUNT 3.29 10^6/ul (4.20-5.40); RED CELL DISTRIBUTION WIDTH 15.7 % (11.5-14.5); WHITE BLOOD COUNT 15.9 10^3/ul (4.8-10.8)
[2016-11-09 07:06] LABS: ALBUMIN 3.2 g/dl (3.3-4.9); ALBUMIN/GLOBULIN RATIO 0.96; CALCIUM 8.5 mg/dl (8.4-10.2); CREATININE 8.13 mg/dl (0.44-1.00); MAGNESIUM 1.6 mg/dl (1.7-2.5); POTASSIUM 5.4 mmol/L (3.5-5.1); TOTAL PROTEIN 6.5 g/dl (6.1-8.1)
[2016-11-09] MEDS: INSULIN ASPART [NOVOLOG] 3 ML PEN SC SCH ×4 (08:00→21:00)
[2016-11-09] MEDS: HEPARIN 5,000 UNIT/0.5 ML VIAL SC SCH (09:30)
[2016-11-09] MEDS: METOPROLOL 25 MG TAB PO SCH ×2 (13:30→21:00)
[2016-11-09] MEDS: NIFEdipine (XL) 30 MG TAB PO SCH ×2 (13:30→21:00)
--- NOTE | 2016-11-09 14:28 | HP ---
Date/Time of Note Date/Time of Note DATE: 11/09/16 TIME: 14:07 Assessment/Plan VTE Prophylaxis VTE Prophylaxis Intervention: other (on warfarin) Lines/Catheters IV Catheter Type (from Nrs): Saline Lock Assessment/Plan Problems: (1) COPD (chronic obstructive pulmonary disease) Status: Chronic Comment: Cont. inhalers. (2) Sarcoidosis Status: Chronic Comment: Cont. steroids (3) ESRD (end stage renal disease) on dialysis Status: Chronic Comment: HD today per nephrology (4) Diabetes mellitus type 2 in obese Status: Chronic Comment: Monitor glucose and cont. linagliptin (5) Hypertension associated with chronic kidney disease due to type 2 diabetes mellitus Status: Chronic Comment: Cont. home meds for HTN (6) Fever Status: Acute Comment: Pneumonia vs. other source. Cont. vanco-cefepime. ID consult. (7) Atrial fibrillation with RVR Status: Acute Comment: Cardiology eval (8) Abnormal CT scan, neck Status: Acute Comment: neurosurgery eval. Cont. c-collar HPI/ROS Admit Date/Time Admit Date/Time Nov 08, 2016 at 18:05 Hx of Present Illness 76 y/o AA F w/ h/o T2DM, HTN, hyperlipidemia, ESRD, COPD, sarcoidosis, YOANA, CAD , LBBB, diastolic dysfunction, , diverticulosis, colonic AVM's w/ h/o bleeding , s/p recent fracture of the dens, in [facility] until 4 days ago when she developed mild cough and rhinorrhea. 2 days ago, after dialysis, began to develop fever and chills. Pt. found she could not get warm. This progressively worsened until yesterday family decided to bring her to ER. In ER pt. was also found to have several episodes of A-fib w/ RVR. In addition CXR not directly indicative of PNA but questionable. CT of neck showed persistent fracture and questionable epidural hematoma. Pt. received vanco/cefepime and was admitted. ROS Constitutional: chills, diaphoresis, febrile, improved Eyes: no complaints ENT: congestion, sore throat Respiratory: cough Cardiovascular: no complaints Gastrointestinal: no complaints Genitourinary: no complaints Musculoskeletal: no complaints Neurologic: no complaints Psychological: nl mood/affect, no complaints PMH/Family/Social Past Medical History Medical History: congestive heart failure (diastolic dysfunction), coronary artery disease, diabetes, GI bleed, high cholesterol, hypertension, renal disease, other (COPD, sarcoidosis, YOANA, LBBB, diastolic dysfunction, , diverticulosis, colonic AVM's) Past Surgical History Past Surgical Hx: other (RICH with unilateral salpingo-oophorectomy, ophthalmic surgery, placement of AV shunt for HD) Family History Significant Family History: cancer (colon), diabetes, hypertension Social History She was born in [place] and was raised there. She has a high school education with experience. 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 She is a divorcee, lives alone, but has extended family that is actively involved Alcohol Use: rarely Smoking Status: Never smoker Drug Use: none Exam/Review of Systems Vital Signs Vitals Vital Signs Date Time Temp Pulse Resp B/P Pulse Ox O2 Delivery O2 Flow Rate FiO2 11/09/16 13:35 68 11/09/16 11:49 97.9 19 97/50 97 11/08/16 22:00 Nasal Cannula 2.0 Intake and Output 11/08/16 11/08/16 11/09/16 15:00 23:00 07:00 Intake Total 500 ml Balance 500 ml Exam Constitutional: alert, frail, oriented, other (obese) Psych: nl mood/affect, no complaints Eyes: EOMI, PERRL, nl conjunctiva, nl lids, nl sclera ENMT: mucosa pink and moist, nl external ears & nose Neck: non-tender, supple, No bruits, No masses, No thyromegaly Respiratory: clear to auscultation, normal air movement Cardiovascular: nl pulses, regular rate and rhythm, No edema, No murmurs/extra sounds, No rub Gastrointestinal: bowel sounds, nl liver, spleen, non-tender, soft, No mass, No rebound or guarding Musculoskeletal: nl extremities to inspection Extremities: normal pulses, No clubbing, No cyanosis, No edema 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: PHARMACY GRAD INTERN II-XII intact, nl mental status, nl speech, nl strength Additional Comments Bedside Glucose - 72 Hours Test 11/08/16 21:35 11/09/16 09:09 11/09/16 12:22 Bedside Glucose 115mg/dL (70-220) 69mg/dL (70-220) L 116mg/dL (70-220) Labs Result Diagram: 11/09/1662711/09/16627 Medications Medications Current Medications Ondansetron HCl (Zofran Inj) 4 mg Q6H PRN IV NAUSEA AND/OR VOMITING; Start at 18:30 Acetaminophen (Tylenol Tab) 650 mg Q6H PRN PO PAIN LEVEL 1-3 OR FEVER Last administered on 11/09/16 00:55; Admin Dose 650 MG; Start 11/08/16 at 18:30 Docusate Sodium (Colace) 100 mg Q12H PRN PO CONSTIPATION; Start 11/08/16 at 18: 30 Heparin Sodium (Porcine) (Heparin (5000 Units/0.5 ml)) 5,000 unit Q12 SC Last administered on 11/09/16 09:30; Admin Dose 5,000 UNIT; Start 11/08/16 at 21:00 Diagnostic Test (Pha) 1 ea 1 ea 02 XX ; Start 11/09/16 at 02:00 Cefepime HCl (Maxipime 1gm/50 ml (Pmx)) 50 ml @ 100 mls/hr Q24H IVPB ; Start at 16:00 Miscellaneous Information 1 ea NOTE XX ; Start 11/08/16 at 19:30 Glucose (Glutose) 15 gm Q15M PRN PO DECREASED GLUCOSE; Start 11/08/16 at 19:30 Glucose (Glutose) 22.5 gm Q15M PRN PO DECREASED GLUCOSE; Start 11/08/16 at 19: 30 Dextrose (D50w Syringe) 25 ml Q15M PRN IV DECREASED GLUCOSE; Start 11/08/16 at 19:30 Dextrose (D50w Syringe) 50 ml Q15M PRN IV DECREASED GLUCOSE; Start 11/08/16 at 19:30 Glucagon (Glucagen) 1 mg Q15M PRN IM DECREASED GLUCOSE; Start 11/08/16 at 19:30 Glucose (Glutose) 15 gm Q15M PRN BUCCAL DECREASED GLUCOSE; Start 11/08/16 at 19 :30 Miscellaneous Information (*Rx Drug Level Order Reminder*) RANDOM VANCOMYCIN LEVEL 7... ONCE ONCE XX ; Start 11/10/16 at 05:00; Stop 11/10/16 at 05:01 Atorvastatin Calcium (Lipitor) 40 mg QHS PO ; Start 11/09/16 at 21:00 Famotidine (Pepcid) 40 mg HS PO ; Start 11/09/16 at 21:00 Fenofibrate (Tricor) 48 mg QAM PO ; Start 11/10/16 at 09:00 Folic Acid (Folic Acid) 2 mg DAILY PO ; Start 11/10/16 at 09:00 Gabapentin (Neurontin) 100 mg TID PO ; Start 11/09/16 at 21:00 Metoprolol Tartrate (Lopressor) 12.5 mg BID PO ; Start 11/09/16 at 13:30 Nifedipine (Procardia Xl) 30 mg BID PO ; Start 11/09/16 at 13:30 Epoetin César (Epogen (Esrd)) 10,000 units MoWeFr@17 SC ; Start 11/09/16 at 17:00 SOBEIDA ENRIQUEZ MD Nov 09, 2016 14:18
[2016-11-09] MEDS ORDERED: ALBUTEROL 18 GM INHALER INH PRN (14:30)
[2016-11-09 14:42] LABS: THYROID STIMULATING HORMONE 0.328 MIU/L (0.465-4.680)
[2016-11-09] MEDS ORDERED: CEFEPIME 1GM/50 ML (PMX) 50 ML IVPB SCH (16:00)
--- NOTE | 2016-11-09 17:16 | CONS ---
Date/Time of Note Date/Time of Note DATE: 11/09/16 TIME: 17:14 Assessment/Plan Assessment/Plan Chief Complaint/Hosp Course 76 y.o. AA woman with h/o of C2 Fx (s/p fall), s/p TAVR, CAD s/p PCI, LV diastolic dysfunction, normal LVEF, PAF on coumadin, ESRD on HD and other issues who presents with cough and fever and possible PNA. Called to see pt b/c afib. Currently, rates under control on telemetry (70-90s). (Currently cannot find ECG or rhythm strip with RVR). Agree with lower dose of metoprolol (in setting of infection) and would hold is SBP < 100 mmHg. Can give IV metoprolol 5mg prn. (Pt was on amiodarone in the past). ALso, would monitor INR levels carefully while on abx. Continue lipitor. Abx per medicine team. (Pt had a recent echo in past with normal LV fxn. - 08/31 EF 70%, mild bioprosthetic valve stenosis, normal LV pressures.) Can re-check echo tomorrow (but doubt a change so soon). Problems: Consultation Date/Type/Reason Admit Date/Time Nov 08, 2016 at 18:05 Date of Consultation: Nov 09, 2016 Type of Consultation: cardiology Reason for Consultation afib Hx of Present Illness 76 y.o. AA woman with h/o of C2 Fx (s/p fall), s/p TAVR, CAD s/p PCI, LV diastolic dysfunction, normal LVEF, PAF on coumadin, ESRD on HD and other issues who presents with cough and fever and possible PNA. Called to see pt b/c afib. Pt reported having a cough and runny nose for a couple days. She also has a temperature. She reports sob. She denies chest pain, palpitations, nausea or diaphoresis. Telemetry on floor reveals afib with HR 70-90s. She has been placed on abx. Eyes: no complaints ENT: congestion, sore throat Respiratory: cough Cardiovascular: no complaints Gastrointestinal: no complaints Genitourinary: no complaints Musculoskeletal: no complaints Neurologic: no complaints Psychological: nl mood/affect, no complaints Past Medical History S/P TAVR for COPD Sarcoid ESRD on HD DM2 afib YOANA LBBB colonic AVM (w/ bleeds) Medical History: congestive heart failure (diastolic dysfunction), coronary artery disease, diabetes, GI bleed, high cholesterol, hypertension, renal disease, other (COPD, sarcoidosis, YOANA, LBBB, diastolic dysfunction, , diverticulosis, colonic AVM's) Past Surgical History Past Surgical Hx: other (RICH with unilateral salpingo-oophorectomy, ophthalmic surgery, placement of AV shunt for HD) Social History Alcohol Use: rarely Smoking Status: Never smoker Drug Use: none Exam/Review of Systems Vital Signs Vitals Vital Signs Date Time Temp Pulse Resp B/P Pulse Ox O2 Delivery O2 Flow Rate FiO2 11/09/16 16:30 72 11/09/16 16:00 19 11/09/16 15:45 97.2 98/45 94 11/09/16 08:45 Nasal Cannula 11/08/16 22:00 2.0 Intake and Output 11/08/16 11/08/16 11/09/16 15:00 23:00 07:00 Intake Total 500 ml Balance 500 ml Exam Constitutional: alert, obese, other (fatigued but NAD, non-toxic), No distress Eyes: EOMI, No icteric Neck: other (in collar, cannot assess JVP) Respiratory: other (mostly clear anteriorly, decreased at bases) Cardiovascular: irregular rhythm, other (1/6 PAKO) Extremities: other (1+ edema, chronic venous stasis changes) Results Result Diagram: 11/09/1662711/09/16627 Results 24 hrs Laboratory Tests Test 11/08/16 18:50 11/08/16 20:20 11/08/16 21:35 11/09/16 06:28 Lactic Acid Level 1.5 1.7 Bedside Glucose 115 White Blood Count 15.9 #H Red Blood Count 3.29 L Hemoglobin 10.0 L Hematocrit 31.2 L Mean Corpuscular Volume 94.8 Mean Corpuscular Hemoglobin 30.4 Mean Corpuscular Hemoglobin Concent 32.1 Red Cell Distribution Width 15.7 H Platelet Count 166 Mean Platelet Volume 11.3 H Neutrophils % 78.8 H Lymphocytes % 13.7 L Monocytes % 6.3 Eosinophils % 0.3 Basophils % 0.4 Nucleated Red Blood Cells % 0.0 Neutrophils # 12.5 H Lymphocytes # 2.2 Monocytes # 1.0 H Eosinophils # 0.0 Basophils # 0.1 Nucleated Red Blood Cells # 0.0 Sodium Level 147 H Potassium Level 5.4 H Chloride Level 105 Carbon Dioxide Level 29 Anion Gap 18 H Blood Urea Nitrogen 56 H Creatinine 8.13 H Glucose Level 85 Calcium Level 8.5 Magnesium Level 1.6 L Total Bilirubin 0.0 L Direct Bilirubin 0.00 Indirect Bilirubin 0.0 Aspartate Amino Transf (AST/SGOT) 22 Alanine Aminotransferase (ALT/SGPT) 27 Alkaline Phosphatase 43 Total Protein 6.5 Albumin 3.2 L Globulin 3.30 H Albumin/Globulin Ratio 0.96 Thyroid Stimulating Hormone (TSH) 0.328 L Test 11/09/16 09:09 11/09/16 12:22 Bedside Glucose 69 L 116 Medications Medications Current Medications Ondansetron HCl (Zofran Inj) 4 mg Q6H PRN IV NAUSEA AND/OR VOMITING; Start at 18:30 Acetaminophen (Tylenol Tab) 650 mg Q6H PRN PO PAIN LEVEL 1-3 OR FEVER Last administered on 11/09/16t 00:55; Admin Dose 650 MG; Start 11/08/16 at 18:30 Docusate Sodium (Colace) 100 mg Q12H PRN PO CONSTIPATION; Start 11/08/16 at 18: 30 Diagnostic Test (Pha) 1 ea 1 ea 02 XX ; Start 11/09/16 at 02:00 Cefepime HCl (Maxipime 1gm/50 ml (Pmx)) 50 ml @ 100 mls/hr Q24H IVPB ; Start at 16:00 Miscellaneous Information 1 ea NOTE XX ; Start 11/08/16 at 19:30 Glucose (Glutose) 15 gm Q15M PRN PO DECREASED GLUCOSE; Start 11/08/16 at 19:30 Glucose (Glutose) 22.5 gm Q15M PRN PO DECREASED GLUCOSE; Start 11/08/16 at 19: 30 Dextrose (D50w Syringe) 25 ml Q15M PRN IV DECREASED GLUCOSE; Start 11/08/16 at 19:30 Dextrose (D50w Syringe) 50 ml Q15M PRN IV DECREASED GLUCOSE; Start 11/08/16 at 19:30 Glucagon (Glucagen) 1 mg Q15M PRN IM DECREASED GLUCOSE; Start 11/08/16 at 19:30 Glucose (Glutose) 15 gm Q15M PRN BUCCAL DECREASED GLUCOSE; Start 11/08/16 at 19 :30 Miscellaneous Information (*Rx Drug Level Order Reminder*) RANDOM VANCOMYCIN LEVEL 7... ONCE ONCE XX ; Start 11/10/16 at 05:00; Stop 11/10/16 at 05:01 Atorvastatin Calcium (Lipitor) 40 mg QHS PO ; Start 11/09/16 at 21:00 Famotidine (Pepcid) 40 mg HS PO ; Start 11/09/16 at 21:00 Fenofibrate (Tricor) 48 mg QAM PO ; Start 11/10/16 at 09:00 Folic Acid (Folic Acid) 2 mg DAILY PO ; Start 11/10/16 at 09:00 Gabapentin (Neurontin) 100 mg TID PO ; Start 11/09/16 at 21:00 Metoprolol Tartrate (Lopressor) 12.5 mg BID PO ; Start 11/09/16 at 13:30 Nifedipine (Procardia Xl) 30 mg BID PO ; Start 11/09/16 at 13:30 Epoetin César (Epogen (Esrd)) 10,000 units MoWeFr@17 SC ; Start 11/09/16 at 17:00 Albuterol (Ventolin Hfa) 2 puff Q4H PRN INH WHEEZING AND SOB; Start 11/09/16 at 14:30 Celecoxib (Celebrex) 200 mg DAILY PO ; Start 11/10/16 at 09:00 Acetaminophen/ Hydrocodone Bitart ([place] (5/325)) 1 tab Q6H PRN PO pain; Start 11/09/16 at 14:30 Linagliptin (Tradjenta) 5 mg DAILY PO ; Start 11/10/16 at 09:00 Prednisone (Prednisone) 1 mg TID PO ; Start 11/09/16 at 21:00 Salmeterol Xinafoate/ Fluticasone (Advair 250/50 Diskus) 1 inh BID INH ; Start 11/09/16 at 21:00 Warfarin Sodium (Coumadin) 4 mg DAILY@17 PO ; Start 11/10/16 at 17:00 ROM MAHMOOD Nov 09, 2016 17:15
[2016-11-09] MEDS: SEVELAMER CARBONATE 0.8 GM PKT PO SCH (17:57)
[2016-11-09] MEDS: EPOETIN 10000 UNITS/1 ML INJ (ESRD) SC SCH (19:29)
[2016-11-09] MEDS: FAMOTIDINE 20 MG TAB PO SCH (21:03)
[2016-11-09] MEDS: ATORVASTATIN 40 MG TAB PO SCH (21:03)
[2016-11-09] MEDS: GABAPENTIN 100 MG CAP PO SCH (21:03)
[2016-11-09] MEDS: SALMETEROL/FLUTICASONE 250/50 INHA INH SCH (21:03)
[2016-11-09] MEDS: predniSONE 1 MG TAB PO SCH (21:04)
[2016-11-09] MEDS: HYDROCODONE/APAP (5/325) TAB PO PRN (23:23)
[2016-11-10] VITALS (11 sets, daily range): BP systolic 110–139; BP diastolic 51–61; PULSE 83–98; RESP 16–20
[2016-11-10] MEDS: ACCU-CHEK XX SCH (02:00)
[2016-11-10] MEDS: HYDROCODONE/APAP (5/325) TAB PO PRN (06:15)
[2016-11-10 06:36] LABS: BASOPHIL # 0.1 10^3/ul (0.0-0.1); BASOPHILS % 0.6 % (0.0-2.0); EOSINOPHILS # 0.1 10^3/ul (0.0-0.5); EOSINOPHILS % 1.7 % (0.0-7.0); HEMATOCRIT 30.8 % (37.0-47.0); HEMOGLOBIN 9.6 g/dl (12.0-16.0); LYMPHOCYTES # 1.8 10^3/ul (0.8-2.9); LYMPHOCYTES % 22.6 % (15.0-51.0); MEAN CORPUSCULAR HEMOGLOBIN 29.4 pg (29.0-33.0); MEAN CORPUSCULAR HGB CONC 31.2 g/dl (32.0-37.0); MEAN CORPUSCULAR VOLUME 94.2 fl (82.0-101.0); MEAN PLATELET VOLUME 11.6 fl (7.4-10.4); MONOCYTE # 0.5 10^3/ul (0.3-0.9); MONOCYTES % 6.3 % (0.0-11.0); NEUTROPHIL # 5.5 10^3/ul (1.6-7.5); NEUTROPHILS % 68.3 % (39.0-77.0); PLATELET COUNT 151 10^3/UL (140-415); RED BLOOD COUNT 3.27 10^6/ul (4.20-5.40); WHITE BLOOD COUNT 8.1 10^3/ul (4.8-10.8)
[2016-11-10 07:00] LABS: IRON 26 ug/dl (35-150)
[2016-11-10 07:10] LABS: TOTAL IRON BINDING CAPACITY 244 ug/dl (241-421)
[2016-11-10] MEDS: INSULIN ASPART [NOVOLOG] 3 ML PEN SC SCH ×4 (08:00→21:00)
[2016-11-10] MEDS: predniSONE 1 MG TAB PO SCH ×3 (08:13→21:39)
[2016-11-10] MEDS: SEVELAMER CARBONATE 0.8 GM PKT PO SCH ×3 (08:13→17:23)
[2016-11-10] MEDS: LINAGLIPTIN 5 MG TABLET PO SCH (08:13)
[2016-11-10] MEDS: SALMETEROL/FLUTICASONE 250/50 INHA INH SCH ×2 (08:14→21:40)
[2016-11-10] MEDS: CELECOXIB 200 MG CAP PO SCH (08:14)
[2016-11-10] MEDS: NIFEdipine (XL) 30 MG TAB PO SCH ×2 (08:14→21:38)
[2016-11-10] MEDS: FOLIC ACID 1 MG TAB PO SCH (08:14)
[2016-11-10] MEDS: GABAPENTIN 100 MG CAP PO SCH ×3 (08:14→21:38)
[2016-11-10] MEDS: METOPROLOL 25 MG TAB PO SCH ×2 (08:15→21:30)
[2016-11-10] MEDS: FENOFIBRATE 48 MG TAB PO SCH (08:24)
--- NOTE | 2016-11-10 08:43 | CONS ---
Date/Time of Note Date/Time of Note DATE: 11/10/16 TIME: 08:22 Assessment/Plan Assessment/Plan Chief Complaint/Hosp Course assessment/impression - fever, chills on admission: differential diagnoses include (but not limited to ) blood stream infections, thrombosis of RUE +/- superimposed infection (septic thrombophlebitis), rhinitis, wound infection of the posterior scalp - +gram positive rods on blood culture from 11/08/2016: I called micro lab. It is not speciated yet. Possible bacillus spp - RUE pain x5 weeks: possible thrombosis of RUE +/- superimposed infection ( septic thrombophlebitis) - possible infection of skin ulcer of posterior scalp - cough, possible rhinitis - ESRD via AVF in RUE - displaced Fx of C2 spine, on neck collar - h/o AVR at [facility] for ?aortic valve stenosis - DM - COPD - sacrcoidosis - CAD, CHF - h/o diverticulosis - h/o hemorrhoids - h/o colonic AVM recommendations - +gram positive rods on blood culture from 11/08/2016: I called micro lab. The bacterium has not been speciated yet. It may be bacillus spp. I will review the final results. I ordered two sets of blood cultures x2 this morning. - RUE pain x5 weeks: Pt missed outpatient workup on this. I recommend and have ordered CT including the deltoid, and venous doppler - possible rhinitis: I ordered influenza screen. If cough restarts, will repeat CXR and obtain sputum culture - wound of posterior scalp: wound culture was collected now. Will review the result - I recommend transthoracic echo to r/o valvular vegetation (h/o AVR) - I recommend continuing empiric IV vancomycin and cefepime. management d/w Pt and her RN thank you. Problems: Consultation Date/Type/Reason Admit Date/Time Nov 08, 2016 at 18:05 Date of Consultation: Nov 10, 2016 Type of Consultation: ID Reason for Consultation fever, possible pneumonia Referring Provider: SOBEIDA WELSH MD Hx of Present Illness This is a 76 yo female with DM, ESRD on HD via AVF in her RUE, sarcoidosis, h/o AVR, and displaced fracture of C2 spine requiring a neck collar. Pt started feeling cold at the dialysis center on 11/07/2016. For the next 24hrs, she felt extreme chills, and developed cough productive of clear mucus. Pt was reportedly more lethargic and altered than usual and was brought to ER on 2016. On arrival she had temp 100.5F. CXR and neck CT on 11/08/2016 appeared similar to her previous films. Her WBC was wnl on arrival, then increased to 15.9 on 11/09/2016. She has been receiving IV vancomycin and cefepime for possible pneumonia. Today, she denies chills and cough. She has not had rhinorrhea or sore throat. She has 5 week h/o pain in her RUE, particularly on R deltoid that radiates to R arm. She was scheduled to get imaging (?CT) as outpatient. She also reports a skin ulcer on posterior scalp, that has been painful at times. She denies h/o bloodstream infections associated with HD catheter/fistula. No sick contact. The level normalized. Today one set of blood culture from 11/08/2016 started to grow gram positive rods. Dr. Welsh requested ID consultation on this Pt. Constitutional: other (chills) Eyes: no complaints ENT: No congestion, No dysphagia, No pain, No sore throat Respiratory: cough, sputum Cardiovascular: no complaints Gastrointestinal: no complaints Genitourinary: other (on HD) Musculoskeletal: no complaints Skin: skin lesions (posterior scalp. Painful at times) Neurologic: other (on neck collar due to C2 fracture) Psychological: nl mood/affect, no complaints Past Medical History Medical History: congestive heart failure (diastolic dysfunction), coronary artery disease, diabetes, GI bleed, high cholesterol, hypertension, renal disease, other (COPD, sarcoidosis, YOANA, LBBB, diastolic dysfunction, , diverticulosis, colonic AVM's) Past Surgical History Past Surgical Hx: other (RICH with unilateral salpingo-oophorectomy, ophthalmic surgery, placement of AV shunt for HD, AVR) Social History Alcohol Use: rarely Smoking Status: Never smoker Drug Use: none Exam/Review of Systems Vital Signs Vitals Vital Signs Date Time Temp Pulse Resp B/P Pulse Ox O2 Delivery O2 Flow Rate FiO2 11/10/16 08:13 98.6 98 18 139/61 92 11/09/16 21:00 Nasal Cannula 2.0 Intake and Output 11/09/16 11/09/16 11/10/16 15:00 23:00 07:00 Intake Total 1400 ml 120 ml Output Total 1600 ml Balance -200 ml 120 ml Exam Constitutional: alert, oriented, well developed Psych: nl mood/affect, no complaints Head: atraumatic, normocephalic Eyes: nl conjunctiva, nl lids ENMT: nl external ears & nose, other (1 cm x 1 cm ulcer on posterior scalp, tender on probing but non-purulent and non-erythematous) Neck: other (+neck collar) Gastrointestinal: non-tender, soft Extremities: edema (of b/l LE), other (AVF), tenderness (diffuse tenderness of RUE) Skin: other (1 cm x 1 cm ulcer on posterior scalp) Results Result Diagram: 11/10/16 0535 11/09/16 0628 Results 24 hrs Laboratory Tests Test 11/09/16 09:09 11/09/16 12:22 11/09/16 17:41 11/09/16 21:05 Bedside Glucose 69 L 116 133 144 Test 11/10/16 05:35 White Blood Count 8.1 # Red Blood Count 3.27 L Hemoglobin 9.6 L Hematocrit 30.8 L Mean Corpuscular Volume 94.2 Mean Corpuscular Hemoglobin 29.4 Mean Corpuscular Hemoglobin Concent 31.2 L Red Cell Distribution Width 16.0 H Platelet Count 151 Mean Platelet Volume 11.6 H Neutrophils % 68.3 Lymphocytes % 22.6 Monocytes % 6.3 Eosinophils % 1.7 Basophils % 0.6 Nucleated Red Blood Cells % 0.0 Neutrophils # 5.5 Lymphocytes # 1.8 Monocytes # 0.5 Eosinophils # 0.1 Basophils # 0.1 Nucleated Red Blood Cells # 0.0 Phosphorus Level 6.9 H Iron Level 26 L Total Iron Binding Capacity 244 Percent Iron Saturation 11 L Random Vancomycin Level 14.9 Medications Medications Current Medications Ondansetron HCl (Zofran Inj) 4 mg Q6H PRN IV NAUSEA AND/OR VOMITING; Start at 18:30 Acetaminophen (Tylenol Tab) 650 mg Q6H PRN PO PAIN LEVEL 1-3 OR FEVER Last administered on 11/09/16t 00:55; Admin Dose 650 MG; Start 11/08/16 at 18:30 Docusate Sodium (Colace) 100 mg Q12H PRN PO CONSTIPATION; Start 11/08/16 at 18: 30 Diagnostic Test (Pha) 1 ea 1 ea 02 XX ; Start 11/09/16 at 02:00 Cefepime HCl (Maxipime 1gm/50 ml (Pmx)) 50 ml @ 100 mls/hr Q24H IVPB Last administered on 11/09/16 17:48; Admin Dose 100 MLS/HR; Start 11/09/16 at 16:00 Miscellaneous Information 1 ea NOTE XX ; Start 11/08/16 at 19:30 Glucose (Glutose) 15 gm Q15M PRN PO DECREASED GLUCOSE; Start 11/08/16 at 19:30 Glucose (Glutose) 22.5 gm Q15M PRN PO DECREASED GLUCOSE; Start 11/08/16 at 19: 30 Dextrose (D50w Syringe) 25 ml Q15M PRN IV DECREASED GLUCOSE; Start 11/08/16 at 19:30 Dextrose (D50w Syringe) 50 ml Q15M PRN IV DECREASED GLUCOSE; Start 11/08/16 at 19:30 Glucagon (Glucagen) 1 mg Q15M PRN IM DECREASED GLUCOSE; Start 11/08/16 at 19:30 Glucose (Glutose) 15 gm Q15M PRN BUCCAL DECREASED GLUCOSE; Start 11/08/16 at 19 :30 Atorvastatin Calcium (Lipitor) 40 mg QHS PO Last administered on 11/09/16 21: 03; Admin Dose 40 MG; Start 11/09/16 at 21:00 Famotidine (Pepcid) 40 mg HS PO Last administered on 11/09/16 21:03; Admin Dose 40 MG; Start 11/09/16 at 21:00 Fenofibrate (Tricor) 48 mg QAM PO ; Start 11/10/16 at 09:00 Folic Acid (Folic Acid) 2 mg DAILY PO Last administered on 11/10/16 08:14; Admin Dose 2 MG; Start 11/10/16 at 09:00 Gabapentin (Neurontin) 100 mg TID PO Last administered on 11/10/16 08:14; Admin Dose 100 MG; Start 11/09/16 at 21:00 Metoprolol Tartrate (Lopressor) 12.5 mg BID PO Last administered on 11/10/16 08:15; Admin Dose 12.5 MG; Start 11/09/16 at 13:30 Nifedipine (Procardia Xl) 30 mg BID PO Last administered on 11/10/16 08:14; Admin Dose 30 MG; Start 11/09/16 at 13:30 Epoetin César (Epogen (Esrd)) 10,000 units MoWeFr@17 SC Last administered on 19:29; Admin Dose 10,000 UNITS; Start 11/09/16 at 17:00 Albuterol (Ventolin Hfa) 2 puff Q4H PRN INH WHEEZING AND SOB; Start 11/09/16 at 14:30 Celecoxib (Celebrex) 200 mg DAILY PO Last administered on 11/10/16 08:14; Admin Dose 200 MG; Start 11/10/16 at 09:00 Acetaminophen/ Hydrocodone Bitart ([place] (5/325)) 1 tab Q6H PRN PO pain Last administered on 11/10/16 06:15; Admin Dose 1 TAB; Start 11/09/16 at 14:30 Linagliptin (Tradjenta) 5 mg DAILY PO Last administered on 11/10/16 08:13; Admin Dose 5 MG; Start 11/10/16 at 09:00 Prednisone (Prednisone) 1 mg TID PO Last administered on 11/10/16 08:13; Admin Dose 1 MG; Start 11/09/16 at 21:00 Salmeterol Xinafoate/ Fluticasone (Advair 250/50 Diskus) 1 inh BID INH Last administered on 11/10/16 08:14; Admin Dose 1 INH; Start 11/09/16 at 21:00 Warfarin Sodium (Coumadin) 4 mg DAILY@17 PO ; Start 11/10/16 at 17:00 CAROL SETH M.D. Nov 10, 2016 08:35
--- NOTE | 2016-11-10 08:47 | CONS ---
Date/Time of Note Date/Time of Note DATE: 11/10/16 TIME: 08:42 Assessment/Plan Assessment/Plan Problems: (1) COPD (chronic obstructive pulmonary disease) Status: Chronic Comment: at baseline... no more chills... no cough or SOB... nl O2 sats on RA and 2L... CXR with NO evidence of any PNA... and WBC is normal as well (2) ESRD (end stage renal disease) on dialysis Status: Chronic Comment: for planned HD in AM mon (3) Aortic stenosis Status: Chronic Comment: asx... s/p TAVR in Apr and doing well here (4) Atrial fibrillation with RVR Status: Acute Comment: now rate controlled... on coumadin w good INR Consultation Date/Type/Reason Admit Date/Time Nov 08, 2016 at 18:05 Initial Consult Date 11/09/16 Type of Consultation: neph 24 HR Interval Summary Free Text/Dictation looks well... no current c/o.. no cough or SOB... feels at her baseline... neuro stable as well Exam/Review of Systems Vital Signs Vitals Vital Signs Date Time Temp Pulse Resp B/P Pulse Ox O2 Delivery O2 Flow Rate FiO2 11/10/16 08:13 98.6 98 18 139/61 92 11/09/16 21:00 Nasal Cannula 2.0 Intake and Output 11/09/16 11/09/16 11/10/16 15:00 23:00 07:00 Intake Total 1400 ml 120 ml Output Total 1600 ml Balance -200 ml 120 ml Exam Constitutional: alert, oriented, well developed Eyes: nl conjunctiva Respiratory: clear to auscultation Cardiovascular: irregular rhythm Gastrointestinal: nl liver, spleen, soft Extremities: normal pulses (fxn AVF in RUE) Results Result Diagram: 11/10/16 0535 11/09/16 0628 Results 24 hrs Laboratory Tests Test 11/09/16 09:09 11/09/16 12:22 11/09/16 17:41 11/09/16 21:05 Bedside Glucose 69 L 116 133 144 Test 11/10/16 05:35 11/10/16 08:16 White Blood Count 8.1 # Red Blood Count 3.27 L Hemoglobin 9.6 L Hematocrit 30.8 L Mean Corpuscular Volume 94.2 Mean Corpuscular Hemoglobin 29.4 Mean Corpuscular Hemoglobin Concent 31.2 L Red Cell Distribution Width 16.0 H Platelet Count 151 Mean Platelet Volume 11.6 H Neutrophils % 68.3 Lymphocytes % 22.6 Monocytes % 6.3 Eosinophils % 1.7 Basophils % 0.6 Nucleated Red Blood Cells % 0.0 Neutrophils # 5.5 Lymphocytes # 1.8 Monocytes # 0.5 Eosinophils # 0.1 Basophils # 0.1 Nucleated Red Blood Cells # 0.0 Phosphorus Level 6.9 H Iron Level 26 L Total Iron Binding Capacity 244 Percent Iron Saturation 11 L Random Vancomycin Level 14.9 Bedside Glucose 85 Medications Medications Current Medications Ondansetron HCl (Zofran Inj) 4 mg Q6H PRN IV NAUSEA AND/OR VOMITING; Start at 18:30 Acetaminophen (Tylenol Tab) 650 mg Q6H PRN PO PAIN LEVEL 1-3 OR FEVER Last administered on 11/09/16 00:55; Admin Dose 650 MG; Start 11/08/16 at 18:30 Docusate Sodium (Colace) 100 mg Q12H PRN PO CONSTIPATION; Start 11/08/16 at 18: 30 Diagnostic Test (Pha) 1 ea 1 ea 02 XX ; Start 11/09/16 at 02:00 Cefepime HCl (Maxipime 1gm/50 ml (Pmx)) 50 ml @ 100 mls/hr Q24H IVPB Last administered on 11/09/16 17:48; Admin Dose 100 MLS/HR; Start 11/09/16 at 16:00 Miscellaneous Information 1 ea NOTE XX ; Start 11/08/16 at 19:30 Glucose (Glutose) 15 gm Q15M PRN PO DECREASED GLUCOSE; Start 11/08/16 at 19:30 Glucose (Glutose) 22.5 gm Q15M PRN PO DECREASED GLUCOSE; Start 11/08/16 at 19: 30 Dextrose (D50w Syringe) 25 ml Q15M PRN IV DECREASED GLUCOSE; Start 11/08/16 at 19:30 Dextrose (D50w Syringe) 50 ml Q15M PRN IV DECREASED GLUCOSE; Start 11/08/16 at 19:30 Glucagon (Glucagen) 1 mg Q15M PRN IM DECREASED GLUCOSE; Start 11/08/16 at 19:30 Glucose (Glutose) 15 gm Q15M PRN BUCCAL DECREASED GLUCOSE; Start 11/08/16 at 19 :30 Atorvastatin Calcium (Lipitor) 40 mg QHS PO Last administered on 11/09/16 21: 03; Admin Dose 40 MG; Start 11/09/16 at 21:00 Famotidine (Pepcid) 40 mg HS PO Last administered on 11/09/16 21:03; Admin Dose 40 MG; Start 11/09/16 at 21:00 Fenofibrate (Tricor) 48 mg QAM PO Last administered on 11/10/16 08:24; Admin Dose 48 MG; Start 11/10/16 at 09:00 Folic Acid (Folic Acid) 2 mg DAILY PO Last administered on 11/10/16 08:14; Admin Dose 2 MG; Start 11/10/16 at 09:00 Gabapentin (Neurontin) 100 mg TID PO Last administered on 11/10/16 08:14; Admin Dose 100 MG; Start 11/09/16 at 21:00 Metoprolol Tartrate (Lopressor) 12.5 mg BID PO Last administered on 11/10/16 08:15; Admin Dose 12.5 MG; Start 11/09/16 at 13:30 Nifedipine (Procardia Xl) 30 mg BID PO Last administered on 11/10/16 08:14; Admin Dose 30 MG; Start 11/09/16 at 13:30 Epoetin César (Epogen (Esrd)) 10,000 units MoWeFr@17 SC Last administered on 19:29; Admin Dose 10,000 UNITS; Start 11/09/16 at 17:00 Albuterol (Ventolin Hfa) 2 puff Q4H PRN INH WHEEZING AND SOB; Start 11/09/16 at 14:30 Celecoxib (Celebrex) 200 mg DAILY PO Last administered on 11/10/16 08:14; Admin Dose 200 MG; Start 11/10/16 at 09:00 Acetaminophen/ Hydrocodone Bitart ([place] (5/325)) 1 tab Q6H PRN PO pain Last administered on 11/10/16 06:15; Admin Dose 1 TAB; Start 11/09/16 at 14:30 Linagliptin (Tradjenta) 5 mg DAILY PO Last administered on 11/10/16 08:13; Admin Dose 5 MG; Start 11/10/16 at 09:00 Prednisone (Prednisone) 1 mg TID PO Last administered on 11/10/16 08:13; Admin Dose 1 MG; Start 11/09/16 at 21:00 Salmeterol Xinafoate/ Fluticasone (Advair 250/50 Diskus) 1 inh BID INH Last administered on 11/10/16 08:14; Admin Dose 1 INH; Start 11/09/16 at 21:00 Warfarin Sodium (Coumadin) 4 mg DAILY@17 PO ; Start 11/10/16 at 17:00 NICO HAY MD Nov 10, 2016 08:47
[2016-11-10] MEDS ORDERED: IOHEXOL 300MG/ML 150 ML BTL ONE (08:48)
[2016-11-10] MEDS ORDERED: SOD CHLORIDE 0.9% 100 ML ONE (08:48)
--- NOTE | 2016-11-10 09:22 | RADRPT ---
PROCEDURE: US upper extremity Venous. CLINICAL INDICATION: Right arm edema , pain TECHNIQUE: Multiple sonographic images of the right upper extremity venous system was obtained uti lizing grayscale, color-flow, compressive sonography and doppler imaging with augmentation. The jalen ges were reviewed on a PACS workstation. COMPARISON: None. FINDINGS: The right internal jugular vein is thrombosed. There is a right AV fistula which is patent. There is normal compressibility and flow within the right subclavian vein, axillary vein, brachial, basilic, cephalic, radial and ulnar veins. RPTAT: AA IMPRESSION: Thrombosed right internal jugular vein. Patent right AV fistula. .Tay Matute MD, MD Date Time Electronically viewed and signed by .Tay Matute MD, on 11/10/2016 09:21 .S/
[2016-11-10 10:33] LABS: INR 2.38; PROTIME 26.3 Sec (12.2-14.2); PT RATIO 2.1
--- NOTE | 2016-11-10 11:47 | RADRPT ---
PROCEDURE: CT of the right upper extremity CLINICAL INDICATION: Right upper extremity pain and swelling, concern for abscess TECHNIQUE: Axial images through the right upper extremity with IV contrast. 100 cc Omnipaque-300 IV contrast was used. Coronal and sagittal reformats. Images were interpreted at an independent [facility] workstation. CTDI 41.39 mGy DLP 303 6.60 mGy-cm One or more of the following dose reduction techniques were used: Automated exposure control Adjustment of the mA and / or kV according to patient size Use of iterative reconstruction technique. COMPARISON: Ultrasound of the right upper extremity November 10, 2016 FINDINGS: There is a thrombus within the right internal jugular vein, as seen on the patients previously perfo rmed ultrasound. There is a right AV fistula that appears patent though as atherosclerotic disease involving less than 50% of the caliber of the fistula. There is no CT evidence of acute osseous abnormality. The bones are osteopenic. There is no eviden ce of acute fracture. There is mild subcutaneous soft tissue swelling throughout the visualized right upper extremity. Th ere is no soft tissue gas. There is no drainable fluid collection. There is a small possibly cysti c nodule just below the skin surface near the right breast and axilla (axial 208), measuring 1.8 x 1 .1 x 1.2 cm, to be correlated with breast examination and mammography as clinically warranted. There are extensive vascular calcifications. A large portion of the chest and upper abdomen is incl uded in the field of view. There is right basilar atelectasis. There is no focal consolidation. T here is cystic replacement and atrophy of the right kidney. There is sigmoid diverticulosis. There is prominent vascularity and soft tissue seen near the rectum and perianal soft tissues. There are severe multilevel degenerative changes of the spine. There is extensive calcified mediastinal lymph nodes throughout. IMPRESSION: 1. Redemonstration of right IJ thrombus as seen on the previous right upper extremity ultrasound. Patent right AV fistula. 2. Very extensive atherosclerotic calcifications throughout. 3. Mild subcutaneous soft tissue swelling throughout the right upper extremity without discrete mariama inable fluid collection or soft tissue gas. 4. Cystic replacement atrophy of the right kidney. 5. Extensive colonic diverticulosis. 6. Prominent soft tissue and vascularity near the rectum and perianal soft tissues, particular to t he left of midline, correlate with direct inspection and consider colonoscopy for further evaluation . 7. A 1.8 x 1.1 x 1.2 cm nodule just below the skin surface at the right axilla/breast, to be correl ated with direct inspection and breast examination. 8. Extensive calcified mediastinal adenopathy. 9. Severe multilevel degenerative changes throughout the spine. RPTAT: UU .Ger Dover MD, MD Date Time Electronically viewed and signed by .Ger Dover MD, on 11/10/2016 11:46 .K/
[2016-11-10] MEDS: SOD FERRIC GLUC COMPLX 125 MG in SOD CHLORIDE 0.9% 100 ML IVPB SCH (12:02)
--- NOTE | 2016-11-10 12:07 | CONS ---
DATE OF ADMISSION: 11/08/2016 DATE OF CONSULTATION: 11/09/2016 REASON FOR CONSULTATION: Cervical fracture/epidural hematoma. HISTORY OF THE PRESENT ILLNESS: The patient is a 76-year-old female with multiple medical problems, including diabetes, hypertension, hyperlipidemia, end-stage renal disease on dialysis. COPD, sarcoidosis, osteoarthritis, CAD, Atrial fibrillation, diastolic dysfunction, diverticulitis who sustained a C2 fracture two months ago. The patient was treated with a hard cervical collar and she last saw me in the office 2 weeks ago. 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ly the patient had no new complaints, and otherwise is at her baseline, but apparently she began having cough and rhinorrhea about 4 days ago with some altered mental status. For this reason the patient was brought to the ER. The patient also has a pressure sore on the back of her occipital area that has been treated. However, because of fever the patient was placed on vancomycin as outpatient. A CT scan of the neck was performed, though there was no clear indication for this, according to the patient's family. The patient does not report any new or worsening neck pain. Patient has no long-tract signs on examination. A CT scan was performed and interpreted by the radiologist to show a soft tissue density in the posterior aspect of the spinal canal at C2-3, which was more prominent on a previous study, and was felt that it could represent a epidural hematoma. In addition, probably secondary infolding of ligamentum flavum secondary to settling of fracture, with impression of the posterior aspect of spinal cord which is increased compared to the previous study. I reviewed the study as well. I believe this does not appear to be a epidural hematoma. The patient has MRI that does not suggest this finding at the time of admission, when it was there. Most likely represents infolding of ligamentum flavum. The patient does not appear to have any neurologic deficits. The patient does not appear to be symptomatic. At this point in time I would recommend continued observation and hard cervical collar. The patient should also have follow up CT scan in 6 weeks and continue to wear a hard cervical collar. On exam the patient is neurologically at her baseline that she is slightly more forgetful than usual. She was eating her meals. She moves her arms and legs grossly normal, 4+/5 strength. She is in a hard cervical collar. Should the patient neurologically change or deteriorate, then repeat images can be done and an MRI. The patient is extremely high risk for any type of surgical procedure or halo placement. Therefore, conservative treatment is strongly recommended. It should be noted that there does appear to be healing of the fracture actually progressing better than expected for the patient's age, osteopenia and renal disease. I discussed with patient's family who expressed understanding and agreement with this plan of care. E/M greater than 60 minutes spent in the hospital evaluation, including discussion, review with comparison of CT scan and MRI results and discussion. Examination and discussion with family. Dictated By: Yusef Johnson MD /latonia/jamey /Document#: [id number] JUANITA
--- NOTE | 2016-11-10 12:36 | CONS ---
Date/Time of Note Date/Time of Note DATE: 11/10/16 TIME: 12:29 Assessment/Plan Assessment/Plan Chief Complaint/Hosp Course assessment/impression - fever, chills on admission: differential diagnoses include (but not limited to ) blood stream infections, thrombosis of RUE +/- superimposed infection (septic thrombophlebitis), rhinitis, wound infection of the posterior scalp - +gram positive rods on blood culture from 11/08/2016: I called micro lab. It is not speciated yet. Possible bacillus spp - RUE pain x5 weeks: possible thrombosis of RUE +/- superimposed infection ( septic thrombophlebitis) - possible infection of skin ulcer of posterior scalp - cough, possible rhinitis - ESRD via AVF in RUE - displaced Fx of C2 spine, on neck collar - h/o AVR at [facility] for ?aortic valve stenosis - DM - COPD - sacrcoidosis - CAD, CHF - h/o diverticulosis - h/o hemorrhoids - h/o colonic AVM ADDENDUM: Pt's blood cultures grew Gram negative rods, instead of Gram positive rods recommendations - +gram positive rods on blood culture from 11/08/2016: I called micro lab. The bacterium has not been speciated yet. It may be bacillus spp. I will review the final results. I ordered two sets of blood cultures x2 this morning. - RUE pain x5 weeks: Pt missed outpatient workup on this. I recommend and have ordered CT including the deltoid, and venous doppler - possible rhinitis: I ordered influenza screen. If cough restarts, will repeat CXR and obtain sputum culture - wound of posterior scalp: wound culture was collected now. Will review the result - I recommend transthoracic echo to r/o valvular vegetation (h/o AVR) - I recommend continuing empiric IV vancomycin and cefepime. management d/w Pt and her RN ADDENDUM: Micro revised the results of Pt's blood cultures. They are now growing Gram negative rods. Pt's CT and venous doppler this morning showed thrombosis of RIJ. In the context of bacteremia, it could be suppurative (septic ) thrombophlebitis of R internal jugular vein. I recommend and have changed his cefepime to pip/tazo. I also discussed with Dr. Liya chaney her anticoagulation. CT also had incidental finding of breast mass. I informed this to Dr. Nickerson too. management d/w Pt's RN, Drs. Nickerson and Anitha. thank you. Problems: Consultation Date/Type/Reason Admit Date/Time Nov 08, 2016 at 18:05 Initial Consult Date 11/10/16 Type of Consultation: ID Referring Provider: SOBEIDA ENRIQUEZ MD Exam/Review of Systems Vital Signs Vitals Vital Signs Date Time Temp Pulse Resp B/P Pulse Ox O2 Delivery O2 Flow Rate FiO2 11/10/16 11:37 98.4 85 18 112/53 91 11/09/16 21:00 Nasal Cannula 2.0 Intake and Output 11/09/16 11/09/16 11/10/16 15:00 23:00 07:00 Intake Total 1400 ml 120 ml Output Total 1600 ml Balance -200 ml 120 ml Results Result Diagram: 11/10/16 0535 11/09/16 0628 Results 24 hrs Laboratory Tests Test 11/09/16 17:41 11/09/16 21:05 11/10/16 05:35 11/10/16 08:16 Bedside Glucose 133 144 85 White Blood Count 8.1 # Red Blood Count 3.27 L Hemoglobin 9.6 L Hematocrit 30.8 L Mean Corpuscular Volume 94.2 Mean Corpuscular Hemoglobin 29.4 Mean Corpuscular Hemoglobin Concent 31.2 L Red Cell Distribution Width 16.0 H Platelet Count 151 Mean Platelet Volume 11.6 H Neutrophils % 68.3 Lymphocytes % 22.6 Monocytes % 6.3 Eosinophils % 1.7 Basophils % 0.6 Nucleated Red Blood Cells % 0.0 Neutrophils # 5.5 Lymphocytes # 1.8 Monocytes # 0.5 Eosinophils # 0.1 Basophils # 0.1 Nucleated Red Blood Cells # 0.0 Prothrombin Time 26.3 H Prothrombin Time Ratio 2.1 INR International Normalized Ratio 2.38 Phosphorus Level 6.9 H Iron Level 26 L Total Iron Binding Capacity 244 Percent Iron Saturation 11 L Ferritin 192.0 Random Vancomycin Level 14.9 Test 11/10/16 12:10 Bedside Glucose 89 Medications Medications Current Medications Ondansetron HCl (Zofran Inj) 4 mg Q6H PRN IV NAUSEA AND/OR VOMITING; Start at 18:30 Acetaminophen (Tylenol Tab) 650 mg Q6H PRN PO PAIN LEVEL 1-3 OR FEVER Last administered on 11/09/16 00:55; Admin Dose 650 MG; Start 11/08/16 at 18:30 Docusate Sodium (Colace) 100 mg Q12H PRN PO CONSTIPATION; Start 11/08/16 at 18: 30 Diagnostic Test (Pha) (Accu-Chek) 1 ea 02 XX ; Start 11/09/16 at 02:00 Miscellaneous Information 1 ea NOTE XX ; Start 11/08/16 at 19:30 Glucose (Glutose) 15 gm Q15M PRN PO DECREASED GLUCOSE; Start 11/08/16 at 19:30 Glucose (Glutose) 22.5 gm Q15M PRN PO DECREASED GLUCOSE; Start 11/08/16 at 19: 30 Dextrose (D50w Syringe) 25 ml Q15M PRN IV DECREASED GLUCOSE; Start 11/08/16 at 19:30 Dextrose (D50w Syringe) 50 ml Q15M PRN IV DECREASED GLUCOSE; Start 11/08/16 at 19:30 Glucagon (Glucagen) 1 mg Q15M PRN IM DECREASED GLUCOSE; Start 11/08/16 at 19:30 Glucose (Glutose) 15 gm Q15M PRN BUCCAL DECREASED GLUCOSE; Start 11/08/16 at 19 :30 Atorvastatin Calcium (Lipitor) 40 mg QHS PO Last administered on 11/09/16 21: 03; Admin Dose 40 MG; Start 11/09/16 at 21:00 Famotidine (Pepcid) 40 mg HS PO Last administered on 11/09/16 21:03; Admin Dose 40 MG; Start 11/09/16 at 21:00 Fenofibrate (Tricor) 48 mg QAM PO Last administered on 11/10/16 08:24; Admin Dose 48 MG; Start 11/10/16 at 09:00 Folic Acid (Folic Acid) 2 mg DAILY PO Last administered on 11/10/16 08:14; Admin Dose 2 MG; Start 11/10/16 at 09:00 Gabapentin (Neurontin) 100 mg TID PO Last administered on 11/10/16 08:14; Admin Dose 100 MG; Start 11/09/16 at 21:00 Metoprolol Tartrate (Lopressor) 12.5 mg BID PO Last administered on 11/10/16 08:15; Admin Dose 12.5 MG; Start 11/09/16 at 13:30 Nifedipine (Procardia Xl) 30 mg BID PO Last administered on 11/10/16 08:14; Admin Dose 30 MG; Start 11/09/16 at 13:30 Epoetin César (Epogen (Esrd)) 10,000 units MoWeFr@17 SC Last administered on 19:29; Admin Dose 10,000 UNITS; Start 11/09/16 at 17:00 Albuterol (Ventolin Hfa) 2 puff Q4H PRN INH WHEEZING AND SOB; Start 11/09/16 at 14:30 Celecoxib (Celebrex) 200 mg DAILY PO Last administered on 11/10/16 08:14; Admin Dose 200 MG; Start 11/10/16 at 09:00 Acetaminophen/ Hydrocodone Bitart ([place] (5/325)) 1 tab Q6H PRN PO pain Last administered on 11/10/16 06:15; Admin Dose 1 TAB; Start 11/09/16 at 14:30 Linagliptin (Tradjenta) 5 mg DAILY PO Last administered on 11/10/16 08:13; Admin Dose 5 MG; Start 11/10/16 at 09:00 Prednisone (Prednisone) 1 mg TID PO Last administered on 11/10/16 08:13; Admin Dose 1 MG; Start 11/09/16 at 21:00 Salmeterol Xinafoate/ Fluticasone (Advair 250/50 Diskus) 1 inh BID INH Last administered on 11/10/16 08:14; Admin Dose 1 INH; Start 11/09/16 at 21:00 Warfarin Sodium 4 mg 4 mg DAILY@17 PO ; Start 11/10/16 at 17:00 Ferric Sodium Gluconate Complex 125 mg/Sodium Chloride 110 ml @ 110 mls/hr Q24H IVPB Last administered on 11/10/16 12:02; Admin Dose 110 MLS/HR; Start at 11:00; Stop 11/14/16 at 11:59 Piperacillin Sod/ Tazobactam Sod (Zosyn 2.25gm/ 50ml (Pmx)) 50 ml @ 100 mls/hr Q8 IVPB ; Start 11/10/16 at 14:00 CAROL SETH M.D. Nov 10, 2016 12:36
[2016-11-10] MEDS: PIPER-TAZO 2.25 GM (PMX) 50 ML IVPB SCH ×2 (14:45→21:38)
[2016-11-10] MEDS ORDERED: VANCOMYCIN 1 GM in NS 250 ML IVPB SCH (15:30)
[2016-11-10] MEDS ORDERED: COLLAGENASE 30 GM TUBE TOP PRN (15:30)
[2016-11-10] MEDS ORDERED: PENDING SANTYL ORDER FOR WOUND CARE XX PRN (15:30)
[2016-11-10] MEDS ORDERED: ZOLPIDEM 5 MG TAB PO PRN (15:30)
--- NOTE | 2016-11-10 15:58 | CONS ---
Date/Time of Note Date/Time of Note DATE: 11/10/16 TIME: 15:38 Assessment/Plan Assessment/Plan Chief Complaint/Hosp Course 76 yo female with R IJ thrombosis in the setting of bacteremia. Pt is currently on coumadin and appears to have developed this clot while on coumadin. # R IJ CLot -this appears more chronic than acute and is likely provoked and secondary to her c spine injury. I agree that this may be septic thrombophlebitis given her bacteremia -Given that is it relatively asymptomatic and very low likelihood of becoming a PE, I do not think anticoagulation needs to be changed at this time. Furthermore , other newer anticoagulants and LMWH are not safe in patient on dialysis. -continue current dose of coumadin for now #breast mass -this was examined on physical exam and appears to be a benign subcutaneous lesion that has been stable for many years - I do not think a bx is necessary at this time Problems: (1) Internal jugular (IJ) vein thromboembolism, chronic Qualifiers: Qualified Code: I82.C21 - Internal jugular (IJ) vein thromboembolism, chronic, right (2) COPD (chronic obstructive pulmonary disease) Status: Chronic Qualifiers: Qualified Code: J44.9 - Chronic obstructive pulmonary disease, unspecified COPD type (3) Sarcoidosis Status: Chronic (4) ESRD (end stage renal disease) on dialysis Status: Chronic (5) Diabetes mellitus type 2 in obese Status: Chronic (6) Hypertension associated with chronic kidney disease due to type 2 diabetes mellitus Status: Chronic (7) Obstructive sleep apnea Status: Chronic (8) Aortic stenosis Status: Chronic (9) Atrial fibrillation with RVR Status: Acute Consultation Date/Type/Reason Admit Date/Time Nov 08, 2016 at 18:05 Date of Consultation: Nov 10, 2016 Type of Consultation: Hematology Reason for Consultation R IJ thrombosis and breast mass Referring Provider: CAROL SETH M.D. Hx of Present Illness 76 yo female with multiple medical problems including DM, ESRD on HD via AVF in her RUE, sarcoidosis, h/o AVR, and displaced fracture of C2 spine from 2 months ago requiring a neck collar. Pt presented to [facility] after feeling chills and progressive lethargy while getting dialysis. In the ER she was found with a temp 100.5F and elevated WBC count to 15.9. Pt is currently on IV vancomycin for pneumonia and bacteremia. Pt was also noted to have a 5 week h/o pain in her RUE, particularly on R deltoid that radiates to R arm. Pt has since had a CT RUE and ultrasound which demonstrate thrombosis of RIJ. Per ID given the concern for (septic) thrombophlebitis of R internal jugular vein, antibiotics have been changed to cefepime to pip/tazo. Of note patient has been on coumadin for heart valve disease and A fib for the past several months. She developed this IF thrombus despite being on coumadin. Constitutional: other (chills) Eyes: no complaints ENT: No congestion, No dysphagia, No pain, No sore throat Respiratory: cough, sputum Cardiovascular: no complaints Gastrointestinal: no complaints Genitourinary: other (on HD) Musculoskeletal: no complaints Skin: skin lesions (posterior scalp. Painful at times) Neurologic: other (on neck collar due to C2 fracture) Psychological: nl mood/affect, no complaints Past Medical History DM, ESRD on HD via AVF in her RUE sarcoidosis h/o AVR, displaced fracture of C2 spine requiring a neck collar. Medical History: congestive heart failure (diastolic dysfunction), coronary artery disease, diabetes, GI bleed, high cholesterol, hypertension, renal disease, other (COPD, sarcoidosis, YOANA, LBBB, diastolic dysfunction, , diverticulosis, colonic AVM's) Past Surgical History RICH with unilateral salpingo-oophorectomy, ophthalmic surgery, placement of AV shunt for HD) Past Surgical Hx: other (RICH with unilateral salpingo-oophorectomy, ophthalmic surgery, placement of AV shunt for HD, AVR) Family History Significant Family History: other (She was born in [place] and was raised there. She has a high school education with experience. 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 She is a divorcee, lives alone, but has extended family that is actively involved) Social History Alcohol Use: rarely Smoking Status: Never smoker Drug Use: none Exam/Review of Systems Vital Signs Vitals Vital Signs Date Time Temp Pulse Resp B/P Pulse Ox O2 Delivery O2 Flow Rate FiO2 11/10/16 14:00 98 11/10/16 11:37 98.4 18 112/53 91 11/09/16 21:00 Nasal Cannula 2.0 Intake and Output 11/09/16 11/09/16 11/10/16 15:00 23:00 07:00 Intake Total 1400 ml 120 ml Output Total 1600 ml Balance -200 ml 120 ml Exam Constitutional: alert, frail, oriented Head: normocephalic Eyes: nl conjunctiva Neck: other (with C collar) Respiratory: clear to auscultation, normal air movement Cardiovascular: regular rate and rhythm Gastrointestinal: soft Musculoskeletal: nl extremities to inspection Extremities: normal pulses 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: PRIVATE ADVISOR II-XII intact Results Result Diagram: 11/10/16 0535 11/09/16 0628 Results 24 hrs Laboratory Tests Test 11/09/16 17:41 11/09/16 21:05 11/10/16 05:35 11/10/16 08:16 Bedside Glucose 133 144 85 White Blood Count 8.1 # Red Blood Count 3.27 L Hemoglobin 9.6 L Hematocrit 30.8 L Mean Corpuscular Volume 94.2 Mean Corpuscular Hemoglobin 29.4 Mean Corpuscular Hemoglobin Concent 31.2 L Red Cell Distribution Width 16.0 H Platelet Count 151 Mean Platelet Volume 11.6 H Neutrophils % 68.3 Lymphocytes % 22.6 Monocytes % 6.3 Eosinophils % 1.7 Basophils % 0.6 Nucleated Red Blood Cells % 0.0 Neutrophils # 5.5 Lymphocytes # 1.8 Monocytes # 0.5 Eosinophils # 0.1 Basophils # 0.1 Nucleated Red Blood Cells # 0.0 Prothrombin Time 26.3 H Prothrombin Time Ratio 2.1 INR International Normalized Ratio 2.38 Phosphorus Level 6.9 H Iron Level 26 L Total Iron Binding Capacity 244 Percent Iron Saturation 11 L Ferritin 192.0 Random Vancomycin Level 14.9 Test 11/10/16 12:10 Bedside Glucose 89 Medications Medications Current Medications Ondansetron HCl (Zofran Inj) 4 mg Q6H PRN IV NAUSEA AND/OR VOMITING; Start at 18:30 Acetaminophen (Tylenol Tab) 650 mg Q6H PRN PO PAIN LEVEL 1-3 OR FEVER Last administered on 11/09/16t 00:55; Admin Dose 650 MG; Start 11/08/16 at 18:30 Docusate Sodium (Colace) 100 mg Q12H PRN PO CONSTIPATION; Start 11/08/16 at 18: 30 Diagnostic Test (Pha) (Accu-Chek) 1 ea 02 XX ; Start 11/09/16 at 02:00 Miscellaneous Information 1 ea NOTE XX ; Start 11/08/16 at 19:30 Glucose (Glutose) 15 gm Q15M PRN PO DECREASED GLUCOSE; Start 11/08/16 at 19:30 Glucose (Glutose) 22.5 gm Q15M PRN PO DECREASED GLUCOSE; Start 11/08/16 at 19: 30 Dextrose (D50w Syringe) 25 ml Q15M PRN IV DECREASED GLUCOSE; Start 11/08/16 at 19:30 Dextrose (D50w Syringe) 50 ml Q15M PRN IV DECREASED GLUCOSE; Start 11/08/16 at 19:30 Glucagon (Glucagen) 1 mg Q15M PRN IM DECREASED GLUCOSE; Start 11/08/16 at 19:30 Glucose (Glutose) 15 gm Q15M PRN BUCCAL DECREASED GLUCOSE; Start 11/08/16 at 19 :30 Atorvastatin Calcium (Lipitor) 40 mg QHS PO Last administered on 11/09/16 21: 03; Admin Dose 40 MG; Start 11/09/16 at 21:00 Famotidine (Pepcid) 40 mg HS PO Last administered on 11/09/16 21:03; Admin Dose 40 MG; Start 11/09/16 at 21:00 Fenofibrate (Tricor) 48 mg QAM PO Last administered on 11/10/16 08:24; Admin Dose 48 MG; Start 11/10/16 at 09:00 Folic Acid (Folic Acid) 2 mg DAILY PO Last administered on 11/10/16 08:14; Admin Dose 2 MG; Start 11/10/16 at 09:00 Gabapentin (Neurontin) 100 mg TID PO Last administered on 11/10/16 14:46; Admin Dose 100 MG; Start 11/09/16 at 21:00 Metoprolol Tartrate (Lopressor) 12.5 mg BID PO Last administered on 11/10/16 08:15; Admin Dose 12.5 MG; Start 11/09/16 at 13:30 Nifedipine (Procardia Xl) 30 mg BID PO Last administered on 11/10/16 08:14; Admin Dose 30 MG; Start 11/09/16 at 13:30 Epoetin César (Epogen (Esrd)) 10,000 units MoWeFr@17 SC Last administered on 19:29; Admin Dose 10,000 UNITS; Start 11/09/16 at 17:00 Albuterol (Ventolin Hfa) 2 puff Q4H PRN INH WHEEZING AND SOB; Start 11/09/16 at 14:30 Celecoxib (Celebrex) 200 mg DAILY PO Last administered on 11/10/16 08:14; Admin Dose 200 MG; Start 11/10/16 at 09:00 Acetaminophen/ Hydrocodone Bitart ([place] (5/325)) 1 tab Q6H PRN PO pain Last administered on 11/10/16 06:15; Admin Dose 1 TAB; Start 11/09/16 at 14:30 Linagliptin (Tradjenta) 5 mg DAILY PO Last administered on 11/10/16 08:13; Admin Dose 5 MG; Start 11/10/16 at 09:00 Prednisone (Prednisone) 1 mg TID PO Last administered on 11/10/16 14:45; Admin Dose 1 MG; Start 11/09/16 at 21:00 Salmeterol Xinafoate/ Fluticasone (Advair 250/50 Diskus) 1 inh BID INH Last administered on 11/10/16 08:14; Admin Dose 1 INH; Start 11/09/16 at 21:00 Warfarin Sodium 4 mg 4 mg DAILY@17 PO ; Start 11/10/16 at 17:00 Ferric Sodium Gluconate Complex 125 mg/Sodium Chloride 110 ml @ 110 mls/hr Q24H IVPB Last administered on 11/10/16 12:02; Admin Dose 110 MLS/HR; Start at 11:00; Stop 11/14/16 at 11:59 Piperacillin Sod/ Tazobactam Sod 50 ml @ 100 mls/hr Q8 IVPB Last administered on 11/10/16 14:45; Admin Dose 100 MLS/HR; Start 11/10/16 at 14:00 Vancomycin HCl (Vancocin) 250 ml @ 125 mls/hr ONCE IVPB Last administered on 15:19; Admin Dose 125 MLS/HR; Start 11/10/16 at 15:30; Stop 11/10/16 at 21:00 Collagenase (Santyl) 1 applic DAILY TOP ; Start 11/11/16 at 09:00 Collagenase (Santyl) 1 applic DAILY PRN TOP WOUND CARE; Start 11/10/16 at 15:30 RADHA BARILLAS M.D. Nov 10, 2016 15:48
--- NOTE | 2016-11-10 16:34 | CONS ---
Date/Time of Note Date/Time of Note DATE: 11/10/16 TIME: 16:26 Assessment/Plan Assessment/Plan Chief Complaint/Hosp Course Impression: # Atrial Fibrillation- non valvular, rate controlled. 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 hematology consulting. likely chronic s/p fall/cervical fxr. # s/p TAVR- stable # s/p fall in 09/2016 with C2 cervical fracture remains in neck brace # COPD - stable. # ESRD on iHD # HTN- bp stable # CAD- stable no cp Recommendations: - lower dose metop given lower bp, though can titrate as tolerated. - cont statin - coumadin cont. goal inr 2.0 to 3.0 - fluid mgmt with iHD per renal Problems: Consultation Date/Type/Reason Admit Date/Time Nov 08, 2016 at 18:05 Initial Consult Date 11/10/16 Type of Consultation: cardiology Referring Provider: TOMER GARCIA MD 24 HR Interval Summary Free Text/Dictation no acute events. denies cp/sob. eating without neck brace, but states typically still using. no palpitations, dizziness. tele reviewed: afib, rates 80s-90s Detailed Summary Respiratory: no complaints Cardiovascular: no complaints Gastrointestinal: no complaints Exam/Review of Systems Vital Signs Vitals Vital Signs Date Time Temp Pulse Resp B/P Pulse Ox O2 Delivery O2 Flow Rate FiO2 11/10/16 15:39 98.6 84 16 125/59 90 11/09/16 21:00 Nasal Cannula 2.0 Intake and Output 11/09/16 11/09/16 11/10/16 15:00 23:00 07:00 Intake Total 1400 ml 120 ml Output Total 1600 ml Balance -200 ml 120 ml Exam Constitutional: alert, obese, other (fatigued but NAD, non-toxic), No distress Eyes: EOMI, No icteric Neck: norm jvp Respiratory: other (mostly clear anteriorly, decreased at bases) Cardiovascular: irregular rhythm, other (1/6 PAKO) Extremities: other (1-2+ edema, chronic venous stasis changes) Results Result Diagram: 11/10/16 0535 11/09/16 0628 Results 24 hrs Laboratory Tests Test 11/09/16 17:41 11/09/16 21:05 11/10/16 05:35 11/10/16 08:16 Bedside Glucose 133 144 85 White Blood Count 8.1 # Red Blood Count 3.27 L Hemoglobin 9.6 L Hematocrit 30.8 L Mean Corpuscular Volume 94.2 Mean Corpuscular Hemoglobin 29.4 Mean Corpuscular Hemoglobin Concent 31.2 L Red Cell Distribution Width 16.0 H Platelet Count 151 Mean Platelet Volume 11.6 H Neutrophils % 68.3 Lymphocytes % 22.6 Monocytes % 6.3 Eosinophils % 1.7 Basophils % 0.6 Nucleated Red Blood Cells % 0.0 Neutrophils # 5.5 Lymphocytes # 1.8 Monocytes # 0.5 Eosinophils # 0.1 Basophils # 0.1 Nucleated Red Blood Cells # 0.0 Prothrombin Time 26.3 H Prothrombin Time Ratio 2.1 INR International Normalized Ratio 2.38 Phosphorus Level 6.9 H Iron Level 26 L Total Iron Binding Capacity 244 Percent Iron Saturation 11 L Ferritin 192.0 Random Vancomycin Level 14.9 Test 11/10/16 12:10 Bedside Glucose 89 Medications Medications Current Medications Ondansetron HCl (Zofran Inj) 4 mg Q6H PRN IV NAUSEA AND/OR VOMITING; Start at 18:30 Acetaminophen (Tylenol Tab) 650 mg Q6H PRN PO PAIN LEVEL 1-3 OR FEVER Last administered on 11/09/16t 00:55; Admin Dose 650 MG; Start 11/08/16 at 18:30 Docusate Sodium (Colace) 100 mg Q12H PRN PO CONSTIPATION; Start 11/08/16 at 18: 30 Diagnostic Test (Pha) (Accu-Chek) 1 ea 02 XX ; Start 11/09/16 at 02:00 Miscellaneous Information 1 ea NOTE XX ; Start 11/08/16 at 19:30 Glucose (Glutose) 15 gm Q15M PRN PO DECREASED GLUCOSE; Start 11/08/16 at 19:30 Glucose (Glutose) 22.5 gm Q15M PRN PO DECREASED GLUCOSE; Start 11/08/16 at 19: 30 Dextrose (D50w Syringe) 25 ml Q15M PRN IV DECREASED GLUCOSE; Start 11/08/16 at 19:30 Dextrose (D50w Syringe) 50 ml Q15M PRN IV DECREASED GLUCOSE; Start 11/08/16 at 19:30 Glucagon (Glucagen) 1 mg Q15M PRN IM DECREASED GLUCOSE; Start 11/08/16 at 19:30 Glucose (Glutose) 15 gm Q15M PRN BUCCAL DECREASED GLUCOSE; Start 11/08/16 at 19 :30 Atorvastatin Calcium (Lipitor) 40 mg QHS PO Last administered on 11/09/16 21: 03; Admin Dose 40 MG; Start 11/09/16 at 21:00 Famotidine (Pepcid) 40 mg HS PO Last administered on 11/09/16 21:03; Admin Dose 40 MG; Start 11/09/16 at 21:00 Fenofibrate (Tricor) 48 mg QAM PO Last administered on 11/10/16 08:24; Admin Dose 48 MG; Start 11/10/16 at 09:00 Folic Acid (Folic Acid) 2 mg DAILY PO Last administered on 11/10/16 08:14; Admin Dose 2 MG; Start 11/10/16 at 09:00 Gabapentin (Neurontin) 100 mg TID PO Last administered on 11/10/16 14:46; Admin Dose 100 MG; Start 11/09/16 at 21:00 Metoprolol Tartrate (Lopressor) 12.5 mg BID PO Last administered on 11/10/16 08:15; Admin Dose 12.5 MG; Start 11/09/16 at 13:30 Nifedipine (Procardia Xl) 30 mg BID PO Last administered on 11/10/16 08:14; Admin Dose 30 MG; Start 11/09/16 at 13:30 Epoetin César (Epogen (Esrd)) 10,000 units MoWeFr@17 SC Last administered on 19:29; Admin Dose 10,000 UNITS; Start 11/09/16 at 17:00 Albuterol (Ventolin Hfa) 2 puff Q4H PRN INH WHEEZING AND SOB; Start 11/09/16 at 14:30 Celecoxib (Celebrex) 200 mg DAILY PO Last administered on 11/10/16 08:14; Admin Dose 200 MG; Start 11/10/16 at 09:00 Acetaminophen/ Hydrocodone Bitart ([place] (5/325)) 1 tab Q6H PRN PO pain Last administered on 11/10/16 06:15; Admin Dose 1 TAB; Start 11/09/16 at 14:30 Linagliptin (Tradjenta) 5 mg DAILY PO Last administered on 11/10/16 08:13; Admin Dose 5 MG; Start 11/10/16 at 09:00 Prednisone (Prednisone) 1 mg TID PO Last administered on 11/10/16 14:45; Admin Dose 1 MG; Start 11/09/16 at 21:00 Salmeterol Xinafoate/ Fluticasone (Advair 250/50 Diskus) 1 inh BID INH Last administered on 11/10/16 08:14; Admin Dose 1 INH; Start 11/09/16 at 21:00 Warfarin Sodium 4 mg 4 mg DAILY@17 PO ; Start 11/10/16 at 17:00 Ferric Sodium Gluconate Complex 125 mg/Sodium Chloride 110 ml @ 110 mls/hr Q24H IVPB Last administered on 11/10/16 12:02; Admin Dose 110 MLS/HR; Start at 11:00; Stop 11/14/16 at 11:59 Piperacillin Sod/ Tazobactam Sod 50 ml @ 100 mls/hr Q8 IVPB Last administered on 11/10/16 14:45; Admin Dose 100 MLS/HR; Start 11/10/16 at 14:00 Vancomycin HCl (Vancocin) 250 ml @ 125 mls/hr ONCE IVPB Last administered on 15:19; Admin Dose 125 MLS/HR; Start 11/10/16 at 15:30; Stop 11/10/16 at 21:00 Collagenase (Santyl) 1 applic DAILY TOP ; Start 11/11/16 at 09:00 Collagenase (Santyl) 1 applic DAILY PRN TOP WOUND CARE; Start 11/10/16 at 15:30 Procedures Procedures RUE venous u/s reviewed: JUSTINA thromboseEVELYN Franklin Nov 10, 2016 16:34
[2016-11-10] MEDS: WARFARIN 2 MG TAB PO SCH (17:23)
--- NOTE | 2016-11-10 19:57 | PN ---
Date/Time of Note Date/Time of Note DATE: 11/10/16 TIME: 19:48 Assessment/Plan VTE Prophylaxis VTE Prophylaxis Intervention: other (warfarin) Lines/Catheters IV [facility] Sal[place] Lock Assessment/Plan Problems: (1) Fever Status: Resolved Comment: Since starting IV abx has been afebrile. ID following (2) Bacteremia Status: Acute Comment: Per ID both cultures growing Gram (-) rods. ID and sensitivities to follow. ID changed pt. from cefepime to zosyn. (3) Internal jugular (IJ) vein thromboembolism, chronic Status: Acute Comment: Per ID, clot may be infected. Pt. on warfarin at therapeutic dose. Only intervention at this time per heme. Qualifiers: Laterality: right Qualified Code: I82.C21 - Internal jugular (IJ) vein thromboembolism, chronic, right (4) Atrial fibrillation Status: Chronic Comment: RVR resolved. Cards following. (5) Breast mass in female Status: Acute Comment: Heme/onc examined and felt no biopsy necessary at this time (6) Dens fracture Status: Chronic Comment: Neurosurgery feels no obvious healing. Cont. c-collar indefinitely and repeat CT in 6 weeks (7) COPD (chronic obstructive pulmonary disease) Status: Chronic Comment: Cont. prednisone and inhalers. Qualifiers: COPD type: unspecified COPD Qualified Code: J44.9 - Chronic obstructive pulmonary disease, unspecified COPD type (8) Sarcoidosis Status: Chronic Comment: Cont. prednisone (9) Aortic stenosis Status: Chronic Comment: s/p TAVR. Cards following (10) Atherosclerotic heart disease of [place] coronary artery without angina pectoris Status: Chronic Comment: Cards monitoring (11) Left bundle branch block (LBBB) Status: Chronic Comment: Cards following (12) Diastolic dysfunction Status: Chronic Comment: Cards following (13) Hypertension associated with chronic kidney disease due to type 2 diabetes mellitus Status: Chronic Comment: BP actually too low. Cards reducing beta viet (14) ESRD (end stage renal disease) on dialysis Status: Chronic Comment: HD per nephrology (15) Type 2 diabetes mellitus with diabetic chronic kidney disease Status: Chronic Comment: Excellent glycemic control. Cont. linagliptin Subjective 24 Hr Interval Summary Constitutional: improved, no complaints Respiratory: no complaints Cardiovascular: no complaints Gastrointestinal: no complaints Genitourinary: no complaints Neurologic: no complaints Exam/Review of Systems Vital Signs Vitals VS - Last 72 Hours, by Label Date Time Temp Pulse Resp B/P Pulse Ox O2 Delivery O2 Flow Rate FiO2 11/10/16 17:20 95 1.0 11/10/16 16:30 84 11/10/16 15:39 98.6 84 16 125/59 90 11/10/16 14:00 98 11/10/16 11:37 98.4 85 18 112/53 91 11/10/16 08:30 91 11/10/16 08:13 98.6 98 18 139/61 92 11/10/16 04:00 87 11/10/16 00:17 97.9 97 20 110/51 93 11/10/16 00:00 89 11/09/16 21:00 Nasal Cannula 2.0 11/09/16 20:06 97.7 74 18 120/54 94 11/09/16 20:00 82 11/09/16 16:30 72 11/09/16 16:00 81 11/09/16 16:00 82 19 11/09/16 15:50 79 11/09/16 15:45 97.2 78 17 98/45 94 11/09/16 15:20 81 11/09/16 14:50 82 11/09/16 14:20 82 11/09/16 13:50 81 11/09/16 13:50 80 19 11/09/16 13:35 68 11/09/16 11:49 97.9 73 19 97/50 97 11/09/16 08:45 Nasal Cannula 11/09/16 08:30 85 11/09/16 07:51 98.6 84 18 94/60 98 11/09/16 04:45 77 11/09/16 04:09 98.0 77 19 107/52 99 11/09/16 00:28 81 11/08/16 23:38 98.6 93 19 97/51 98 11/08/16 22:21 99.2 90 19 102/56 95 11/08/16 22:00 Nasal Cannula 2.0 11/08/16 21:19 90 11/08/16 19:15 99.1 91 22 94/58 97 Nasal Cannula 2.0 11/08/16 17:23 100.1 107 16 105/76 95 Room Air 11/08/16 15:49 Nasal Cannula 2 11/08/16 15:20 100.5 86 20 128/98 96 Vital Signs Date Time Temp Pulse Resp B/P Pulse Ox O2 Delivery O2 Flow Rate FiO2 11/10/16 17:20 95 1.0 11/10/16 16:30 84 11/10/16 15:39 98.6 16 125/59 11/09/16 21:00 Nasal Cannula Intake and Output 11/09/16 11/09/16 11/10/16 15:00 23:00 07:00 Intake Total 1400 ml 120 ml Output Total 1600 ml Balance -200 ml 120 ml Exam Constitutional: alert, frail, obese, oriented Neck: other (in c-collar) Respiratory: clear to auscultation, normal air movement Cardiovascular: edema (1+ BLE), nl pulses, regular rate and rhythm, No murmurs/extra sounds, No rub Gastrointestinal: bowel sounds, nl liver, spleen, non-tender, soft, No mass, No rebound or guarding Musculoskeletal: nl extremities to inspection Extremities: edema (1+ BLE), normal pulses, No clubbing, No cyanosis 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: [employer] II-XII intact, nl mental status, nl speech, nl strength Additional Comments Bedside Glucose - 72 Hours Test 11/08/16 21:35 11/09/16 09:09 11/09/16 12:22 11/09/16 17:41 Bedside Glucose 115mg/dL (70-220) 69mg/dL (70-220) L 116mg/dL (70-220) 133mg/dL (70-220) Test 11/09/16 21:05 11/10/16 08:16 11/10/16 12:10 11/10/16 17:22 Bedside Glucose 144mg/dL (70-220) 85mg/dL (70-220) 89mg/dL (70-220) 117mg/dL (70-220) Results Result Diagram: 11/10/16 0535 11/09/16 0628 Results 24 hrs Laboratory Tests Test 11/09/16 21:05 11/10/16 05:35 11/10/16 08:16 11/10/16 12:10 Bedside Glucose 144 85 89 White Blood Count 8.1 # Red Blood Count 3.27 L Hemoglobin 9.6 L Hematocrit 30.8 L Mean Corpuscular Volume 94.2 Mean Corpuscular Hemoglobin 29.4 Mean Corpuscular Hemoglobin Concent 31.2 L Red Cell Distribution Width 16.0 H Platelet Count 151 Mean Platelet Volume 11.6 H Neutrophils % 68.3 Lymphocytes % 22.6 Monocytes % 6.3 Eosinophils % 1.7 Basophils % 0.6 Nucleated Red Blood Cells % 0.0 Neutrophils # 5.5 Lymphocytes # 1.8 Monocytes # 0.5 Eosinophils # 0.1 Basophils # 0.1 Nucleated Red Blood Cells # 0.0 Prothrombin Time 26.3 H Prothrombin Time Ratio 2.1 INR International Normalized Ratio 2.38 Phosphorus Level 6.9 H Iron Level 26 L Total Iron Binding Capacity 244 Percent Iron Saturation 11 L Ferritin 192.0 Random Vancomycin Level 14.9 Test 11/10/16 17:22 Bedside Glucose 117 Medications Medications Current Medications Ondansetron HCl (Zofran Inj) 4 mg Q6H PRN IV NAUSEA AND/OR VOMITING; Start at 18:30 Acetaminophen (Tylenol Tab) 650 mg Q6H PRN PO PAIN LEVEL 1-3 OR FEVER Last administered on 11/09/16 00:55; Admin Dose 650 MG; Start 11/08/16 at 18:30 Docusate Sodium (Colace) 100 mg Q12H PRN PO CONSTIPATION; Start 11/08/16 at 18: 30 Diagnostic Test (Pha) (Accu-Chek) 1 ea 02 XX ; Start 11/09/16 at 02:00 Miscellaneous Information 1 ea NOTE XX ; Start 11/08/16 at 19:30 Glucose (Glutose) 15 gm Q15M PRN PO DECREASED GLUCOSE; Start 11/08/16 at 19:30 Glucose (Glutose) 22.5 gm Q15M PRN PO DECREASED GLUCOSE; Start 11/08/16 at 19: 30 Dextrose (D50w Syringe) 25 ml Q15M PRN IV DECREASED GLUCOSE; Start 11/08/16 at 19:30 Dextrose (D50w Syringe) 50 ml Q15M PRN IV DECREASED GLUCOSE; Start 11/08/16 at 19:30 Glucagon (Glucagen) 1 mg Q15M PRN IM DECREASED GLUCOSE; Start 11/08/16 at 19:30 Glucose (Glutose) 15 gm Q15M PRN BUCCAL DECREASED GLUCOSE; Start 11/08/16 at 19 :30 Atorvastatin Calcium (Lipitor) 40 mg QHS PO Last administered on 11/09/16 21: 03; Admin Dose 40 MG; Start 11/09/16 at 21:00 Famotidine (Pepcid) 40 mg HS PO Last administered on 11/09/16 21:03; Admin Dose 40 MG; Start 11/09/16 at 21:00 Fenofibrate (Tricor) 48 mg QAM PO Last administered on 11/10/16 08:24; Admin Dose 48 MG; Start 11/10/16 at 09:00 Folic Acid (Folic Acid) 2 mg DAILY PO Last administered on 11/10/16 08:14; Admin Dose 2 MG; Start 11/10/16 at 09:00 Gabapentin (Neurontin) 100 mg TID PO Last administered on 11/10/16 14:46; Admin Dose 100 MG; Start 11/09/16 at 21:00 Metoprolol Tartrate (Lopressor) 12.5 mg BID PO Last administered on 11/10/16 08:15; Admin Dose 12.5 MG; Start 11/09/16 at 13:30 Nifedipine (Procardia Xl) 30 mg BID PO Last administered on 11/10/16 08:14; Admin Dose 30 MG; Start 11/09/16 at 13:30 Epoetin César (Epogen (Esrd)) 10,000 units MoWeFr@17 SC Last administered on 19:29; Admin Dose 10,000 UNITS; Start 11/09/16 at 17:00 Albuterol (Ventolin Hfa) 2 puff Q4H PRN INH WHEEZING AND SOB; Start 11/09/16 at 14:30 Celecoxib (Celebrex) 200 mg DAILY PO Last administered on 11/10/16 08:14; Admin Dose 200 MG; Start 11/10/16 at 09:00 Acetaminophen/ Hydrocodone Bitart ([place] (5/325)) 1 tab Q6H PRN PO pain Last administered on 11/10/16 06:15; Admin Dose 1 TAB; Start 11/09/16 at 14:30 Linagliptin (Tradjenta) 5 mg DAILY PO Last administered on 11/10/16 08:13; Admin Dose 5 MG; Start 11/10/16 at 09:00 Prednisone (Prednisone) 1 mg TID PO Last administered on 11/10/16 14:45; Admin Dose 1 MG; Start 11/09/16 at 21:00 Salmeterol Xinafoate/ Fluticasone (Advair 250/50 Diskus) 1 inh BID INH Last administered on 11/10/16 08:14; Admin Dose 1 INH; Start 11/09/16 at 21:00 Warfarin Sodium 4 mg 4 mg DAILY@17 PO Last administered on 11/10/16 17:23; Admin Dose 4 MG; Start 11/10/16 at 17:00 Ferric Sodium Gluconate Complex 125 mg/Sodium Chloride 110 ml @ 110 mls/hr Q24H IVPB Last administered on 11/10/16 12:02; Admin Dose 110 MLS/HR; Start at 11:00; Stop 11/14/16 at 11:59 Piperacillin Sod/ Tazobactam Sod 50 ml @ 100 mls/hr Q8 IVPB Last administered on 11/10/16 14:45; Admin Dose 100 MLS/HR; Start 11/10/16 at 14:00 Vancomycin HCl (Vancocin) 250 ml @ 125 mls/hr ONCE IVPB Last administered on 15:19; Admin Dose 125 MLS/HR; Start 11/10/16 at 15:30; Stop 11/10/16 at 21:00 Collagenase (Santyl) 1 applic DAILY TOP ; Start 11/11/16 at 09:00 Collagenase (Santyl) 1 applic DAILY PRN TOP WOUND CARE; Start 11/10/16 at 15:30 SOBEIDA ENRIQUEZ MD Nov 10, 2016 19:57
[2016-11-10] MEDS: ATORVASTATIN 40 MG TAB PO SCH (21:39)
[2016-11-10] MEDS: FAMOTIDINE 20 MG TAB PO SCH (21:39)
[2016-11-11] VITALS (19 sets, daily range): BP systolic 84–141; BP diastolic 40–66; PULSE 74–90; RESP 19–20
[2016-11-11] MEDS: ACCU-CHEK XX SCH (02:00)
--- NOTE | 2016-11-11 04:04 | CONS ---
DATE OF ADMISSION: 11/08/2016 DATE OF CONSULTATION: 11/09/2016 Thank you very much for allowing me to evaluate this 76-year-old female admitted yesterday with chills and cough of approximately 1 day's duration. HISTORICAL EVENTS: As you well know, this patient was hospitalized here about a month ago and was discharged about 1 week ago when a cervical spine fracture occurred related to her "falling out of bed." She was seen in neurosurgical consultation and it was felt no surgical intervention needed. She remained on acute rehab for at least 2-3 weeks so that she could gain mobility. She was ultimately discharged and it was 1 day prior to admission that she noted a slight productive cough of "yellow mucus and" some slight shortness of breath without chest pain, and some chills. Because of this, she was ultimately brought to [facility] and admitted to the hospital. Presently, she feels a bit better. Cough is minimal at best. She has no recurrence of chills or sense of temperature. Denied any abdominal pain, chest pain, diarrhea or vomiting. PAST MEDICAL HISTORY: 1. End-stage renal disease, requiring outpatient dialysis. 2. History of diabetes. 3. History of hypertension. 4. Known obstructive sleep apnea. 5. History of sarcoidosis. 6. Atrial fibrillation. 7. History of aortic stenosis. 8. Hyperlipidemia. MEDICATION: Prior to admission include albuterol inhaler, atorvastatin 40 mg per day, Celebrex 200 mg per day, famotidine 40 mg per day, fenofibrate 48 mg per day, folic acid 2 mg per day, gabapentin 100 mg per day, Tradjenta 5 mg daily, metoprolol 12.5 mg b.i.d., nifedipine 90 mg per day, prednisone 1 mg per day, Advair 1 puff b.i.d., Renvela 800 mg per day, Coumadin 4 mg per day, Fosrenol 1000 mg per day. PHYSICAL EXAMINATION: [place] female no acute distress. VITAL SIGNS: Blood pressure 97/50, respirations were 18. She was afebrile. Heart rate was 74. HEENT: Eyes, extraocular muscles were full. Nose, mouth and throat were normal. NECK: Neck was supple. There was no jugular venous distention, thyroid enlargement or adenopathy. LUNGS: No rales, wheezes, or rhonchi. HEART: Rhythm regular. No murmur. No 3rd or 4th sound. ABDOMEN: Nontender. Liver and spleen are not palpable. No mass or tenderness were noted. EXTREMITIES: No edema. Calves nontender. NEUROLOGIC: No lateralizing motor weakness. LABORATORY AND DIAGNOSTIC STUDIES: Hematocrit 35.1 yesterday and 31.2 this morning. White count increased from 7,100 to 15,900. Chemistries unrevealing, except for a potassium of 5.4. Coags, INR was 2.15. IMPRESSION: 1. Fever and history of chills and cough raising all points to bronchitis versus pneumonia as the etiology. Cultures are pending. Antibiotics have already been provided. 2. History of chronic renal failure. We will plan on dialyzing her today. 3. History of cervical spine traumatic fracture. Will need follow up PT and OT. We will follow with you. Dictated By: Robert Poon MD /latonia/ /Document#: [id number]
[2016-11-11] MEDS: PIPER-TAZO 2.25 GM (PMX) 50 ML IVPB SCH ×3 (05:56→22:10)
[2016-11-11 07:22] LABS: BASOPHILS % 0.6 % (0.0-2.0); EOSINOPHILS # 0.1 10^3/ul (0.0-0.5); EOSINOPHILS % 1.9 % (0.0-7.0); HEMATOCRIT 30.9 % (37.0-47.0); HEMOGLOBIN 9.8 g/dl (12.0-16.0); LYMPHOCYTES # 1.6 10^3/ul (0.8-2.9); LYMPHOCYTES % 22.4 % (15.0-51.0); MEAN CORPUSCULAR HEMOGLOBIN 29.4 pg (29.0-33.0); MEAN CORPUSCULAR HGB CONC 31.7 g/dl (32.0-37.0); MEAN CORPUSCULAR VOLUME 92.8 fl (82.0-101.0); MEAN PLATELET VOLUME 11.6 fl (7.4-10.4); MONOCYTE # 0.7 10^3/ul (0.3-0.9); MONOCYTES % 9.1 % (0.0-11.0); NEUTROPHIL # 4.7 10^3/ul (1.6-7.5); NEUTROPHILS % 65.4 % (39.0-77.0); PLATELET COUNT 148 10^3/UL (140-415); RED BLOOD COUNT 3.33 10^6/ul (4.20-5.40); RED CELL DISTRIBUTION WIDTH 15.9 % (11.5-14.5); WHITE BLOOD COUNT 7.2 10^3/ul (4.8-10.8)
[2016-11-11 07:47] LABS: INR 2.44; PROTIME 26.8 Sec (12.2-14.2); PT RATIO 2.1
[2016-11-11] MEDS: INSULIN ASPART [NOVOLOG] 3 ML PEN SC SCH ×4 (08:00→20:52)
[2016-11-11] MEDS: FENOFIBRATE 48 MG TAB PO SCH (08:21)
[2016-11-11] MEDS: GABAPENTIN 100 MG CAP PO SCH ×3 (08:21→20:49)
[2016-11-11] MEDS: predniSONE 1 MG TAB PO SCH ×3 (08:21→20:50)
[2016-11-11] MEDS: LINAGLIPTIN 5 MG TABLET PO SCH (08:21)
[2016-11-11] MEDS: SEVELAMER CARBONATE 0.8 GM PKT PO SCH ×3 (08:21→17:33)
[2016-11-11] MEDS: FOLIC ACID 1 MG TAB PO SCH (08:21)
[2016-11-11] MEDS: CELECOXIB 200 MG CAP PO SCH (08:21)
[2016-11-11] MEDS: METOPROLOL 25 MG TAB PO SCH ×2 (08:21→20:52)
[2016-11-11] MEDS: COLLAGENASE 30 GM TUBE TOP SCH (08:22)
[2016-11-11] MEDS: SALMETEROL/FLUTICASONE 250/50 INHA INH SCH ×2 (08:22→20:49)
[2016-11-11] MEDS: NIFEdipine (XL) 30 MG TAB PO SCH ×2 (08:23→20:51)
[2016-11-11 08:36] LABS: CALCIUM 8.7 mg/dl (8.4-10.2); CREATININE 9.1 mg/dl (0.44-1.00)
[2016-11-11 08:38] LABS: MAGNESIUM 1.7 mg/dl (1.7-2.5); PHOSPHORUS 7.3 mg/dl (2.5-4.9)
[2016-11-11] MEDS: SOD FERRIC GLUC COMPLX 125 MG in SOD CHLORIDE 0.9% 100 ML IVPB SCH (11:16)
--- NOTE | 2016-11-11 12:19 | CONS ---
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 Nickerson - ESRD via AVF in RUE - displaced Fx of C2 spine, on neck collar - h/o AVR at [facility] for ?aortic valve stenosis - DM - COPD - sacrcoidosis - CAD, CHF - h/o diverticulosis - h/o hemorrhoids - h/o colonic AVM recommendations - pending results: speciation and sensitivity of Gram negative nancy in her blood culture, wound culture of posterior scalp, repeat two sets of blood cultures x2 from 11/10/2016 - I recommend transthoracic echo to r/o valvular vegetation (h/o AVR) - I recommend continuing empiric IV vancomycin and pip/tazo to cover bacteremia , septic thrombophlebitis and possible infection of the wound of the posterior scalp management d/w Pt Problems: Consultation Date/Type/Reason Admit Date/Time Nov 10, 2016 at 15:14 Initial Consult Date 11/10/16 Type of Consultation: ID Referring Provider: TOMER GARCIA MD 24 HR Interval Summary Constitutional: other (fatigued) Detailed Summary Eyes: no complaints ENT: other (R neck pain), pain (R neck), No dysphagia, No sore throat Respiratory: shortness of breath, No cough, No sputum Cardiovascular: no complaints Gastrointestinal: no complaints Genitourinary: other (anuric) Musculoskeletal: bone/joint pain (pain of RUE), restricted range of motion ( RUE due to pain) Skin: No rash Neurologic: other (weakness of RLE) Exam/Review of Systems Vital Signs Vitals Vital Signs Date Time Temp Pulse Resp B/P Pulse Ox O2 Delivery O2 Flow Rate FiO2 11/11/16 11:39 98.5 82 19 131/64 98 11/10/16 21:00 Nasal Cannula 2.0 Intake and Output 11/10/16 11/10/16 11/11/16 15:00 23:00 07:00 Intake Total 110 ml 1350 ml 350 ml Balance 110 ml 1350 ml 350 ml Exam Constitutional: alert, well developed Psych: no complaints Head: atraumatic, normocephalic Eyes: nl conjunctiva, nl lids ENMT: other (no thrush) Neck: other (tender R neck) Respiratory: diminished breath sounds Cardiovascular: nl pulses, regular rate and rhythm Gastrointestinal: non-tender, soft Musculoskeletal: range of motion (limited around R shoulder) Extremities: edema (non-pitting edema of b/l ankle) 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: focal weakness (RUE), lethargic Results Result Diagram: 11/11/16 0644 11/11/16 0643 Results 24 hrs Laboratory Tests Test 11/10/16 17:22 11/10/16 21:42 11/11/16 06:43 11/11/16 06:44 Bedside Glucose 117 111 Prothrombin Time 26.8 H Prothrombin Time Ratio 2.1 INR International Normalized Ratio 2.44 Sodium Level 143 Potassium Level 5.0 Chloride Level 102 Carbon Dioxide Level 23 Anion Gap 23 H Blood Urea Nitrogen 61 H Creatinine 9.10 H Glucose Level 92 Calcium Level 8.7 White Blood Count 7.2 Red Blood Count 3.33 L Hemoglobin 9.8 L Hematocrit 30.9 L Mean Corpuscular Volume 92.8 Mean Corpuscular Hemoglobin 29.4 Mean Corpuscular Hemoglobin Concent 31.7 L Red Cell Distribution Width 15.9 H Platelet Count 148 Mean Platelet Volume 11.6 H Neutrophils % 65.4 Lymphocytes % 22.4 Monocytes % 9.1 Eosinophils % 1.9 Basophils % 0.6 Nucleated Red Blood Cells % 0.0 Neutrophils # 4.7 Lymphocytes # 1.6 Monocytes # 0.7 Eosinophils # 0.1 Basophils # 0.0 Nucleated Red Blood Cells # 0.0 Phosphorus Level 7.3 H Magnesium Level 1.7 Test 11/11/16 08:19 Bedside Glucose 82 Medications Medications Current Medications Ondansetron HCl (Zofran Inj) 4 mg Q6H PRN IV NAUSEA AND/OR VOMITING; Start at 18:30 Acetaminophen (Tylenol Tab) 650 mg Q6H PRN PO PAIN LEVEL 1-3 OR FEVER Last administered on 11/09/16 00:55; Admin Dose 650 MG; Start 11/08/16 at 18:30 Docusate Sodium (Colace) 100 mg Q12H PRN PO CONSTIPATION; Start 11/08/16 at 18: 30 Diagnostic Test (Pha) (Accu-Chek) 1 ea 02 XX ; Start 11/09/16 at 02:00 Miscellaneous Information 1 ea NOTE XX ; Start 11/08/16 at 19:30 Glucose (Glutose) 15 gm Q15M PRN PO DECREASED GLUCOSE; Start 11/08/16 at 19:30 Glucose (Glutose) 22.5 gm Q15M PRN PO DECREASED GLUCOSE; Start 11/08/16 at 19: 30 Dextrose (D50w Syringe) 25 ml Q15M PRN IV DECREASED GLUCOSE; Start 11/08/16 at 19:30 Dextrose (D50w Syringe) 50 ml Q15M PRN IV DECREASED GLUCOSE; Start 11/08/16 at 19:30 Glucagon (Glucagen) 1 mg Q15M PRN IM DECREASED GLUCOSE; Start 11/08/16 at 19:30 Glucose (Glutose) 15 gm Q15M PRN BUCCAL DECREASED GLUCOSE; Start 11/08/16 at 19 :30 Atorvastatin Calcium (Lipitor) 40 mg QHS PO Last administered on 11/10/16 21: 39; Admin Dose 40 MG; Start 11/09/16 at 21:00 Famotidine (Pepcid) 40 mg HS PO Last administered on 11/10/16 21:39; Admin Dose 40 MG; Start 11/09/16 at 21:00 Fenofibrate (Tricor) 48 mg QAM PO Last administered on 11/11/16 08:21; Admin Dose 48 MG; Start 11/10/16 at 09:00 Folic Acid (Folic Acid) 2 mg DAILY PO Last administered on 11/11/16 08:21; Admin Dose 2 MG; Start 11/10/16 at 09:00 Gabapentin (Neurontin) 100 mg TID PO Last administered on 11/11/16 08:21; Admin Dose 100 MG; Start 11/09/16 at 21:00 Metoprolol Tartrate (Lopressor) 12.5 mg BID PO Last administered on 11/10/16 21:30; Admin Dose 12.5 MG; Start 11/09/16 at 13:30 Nifedipine (Procardia Xl) 30 mg BID PO Last administered on 11/10/16 21:38; Admin Dose 30 MG; Start 11/09/16 at 13:30 Epoetin César (Epogen (Esrd)) 10,000 units MoWeFr@17 SC Last administered on 19:29; Admin Dose 10,000 UNITS; Start 11/09/16 at 17:00 Albuterol (Ventolin Hfa) 2 puff Q4H PRN INH WHEEZING AND SOB; Start 11/09/16 at 14:30 Celecoxib (Celebrex) 200 mg DAILY PO Last administered on 11/11/16 08:21; Admin Dose 200 MG; Start 11/10/16 at 09:00 Acetaminophen/ Hydrocodone Bitart ([place] (5/325)) 1 tab Q6H PRN PO pain Last administered on 11/10/16 06:15; Admin Dose 1 TAB; Start 11/09/16 at 14:30 Linagliptin (Tradjenta) 5 mg DAILY PO Last administered on 11/11/16 08:21; Admin Dose 5 MG; Start 11/10/16 at 09:00 Prednisone (Prednisone) 1 mg TID PO Last administered on 11/11/16 08:21; Admin Dose 1 MG; Start 11/09/16 at 21:00 Salmeterol Xinafoate/ Fluticasone (Advair 250/50 Diskus) 1 inh BID INH Last administered on 11/11/16 08:22; Admin Dose 1 INH; Start 11/09/16 at 21:00 Warfarin Sodium 4 mg 4 mg DAILY@17 PO Last administered on 11/10/16 17:23; Admin Dose 4 MG; Start 11/10/16 at 17:00 Ferric Sodium Gluconate Complex 125 mg/Sodium Chloride 110 ml @ 110 mls/hr Q24H IVPB Last administered on 11/11/16 11:16; Admin Dose 110 MLS/HR; Start at 11:00; Stop 11/14/16 at 11:59 Piperacillin Sod/ Tazobactam Sod (Zosyn 2.25gm/ 50ml (Pmx)) 50 ml @ 100 mls/hr Q8 IVPB Last administered on 11/11/16 05:56; Admin Dose 100 MLS/HR; Start at 14:00 Collagenase (Santyl) 1 applic DAILY TOP Last administered on 11/11/16t 08:22; Admin Dose 1 APPLIC; Start 11/11/16 at 09:00 Collagenase (Santyl) 1 applic DAILY PRN TOP WOUND CARE; Start 11/10/16 at 15:30 CAROL SETH M.D. Nov 11, 2016 12:19
--- NOTE | 2016-11-11 13:36 | CONS ---
Date/Time of Note Date/Time of Note DATE: 11/11/16 TIME: 13:33 Assessment/Plan Assessment/Plan Problems: (1) Internal jugular (IJ) vein thromboembolism, chronic Status: Chronic Comment: chronic... well fxn AVF on that side Qualifiers: Laterality: right Qualified Code: I82.C21 - Internal jugular (IJ) vein thromboembolism, chronic, right (2) Bacteremia Status: Acute Comment: ?ID?.. is afeb, with no leukocytosis or any sxs (3) ESRD (end stage renal disease) on dialysis Status: Chronic Comment: on HD q MWD... stable (4) Diabetes mellitus type 2 in obese Status: Chronic Comment: stable (5) Aortic stenosis Status: Chronic Comment: s/p TAVR.... stable Consultation Date/Type/Reason Admit Date/Time Nov 10, 2016 at 15:14 Initial Consult Date 11/09/16 Type of Consultation: neph Referring Provider: TOMER GARCIA MD 24 HR Interval Summary Free Text/Dictation pt resting... NAD... currently on dialysis Exam/Review of Systems Vital Signs Vitals Vital Signs Date Time Temp Pulse Resp B/P Pulse Ox O2 Delivery O2 Flow Rate FiO2 11/11/16 12:00 74 11/11/16 11:39 98.5 19 131/64 98 11/11/16 08:20 Nasal Cannula 2.0 Intake and Output 11/10/16 11/10/16 11/11/16 15:00 23:00 07:00 Intake Total 110 ml 1350 ml 350 ml Balance 110 ml 1350 ml 350 ml Exam Constitutional: alert Psych: no complaints Respiratory: clear to auscultation Cardiovascular: irregular rhythm Gastrointestinal: soft Extremities: normal pulses (fxn AVF RUE without problems) Results Result Diagram: 11/11/16 0644 11/11/16 0643 Results 24 hrs Laboratory Tests Test 11/10/16 17:22 11/10/16 21:42 11/11/16 06:43 11/11/16 06:44 Bedside Glucose 117 111 Prothrombin Time 26.8 H Prothrombin Time Ratio 2.1 INR International Normalized Ratio 2.44 Sodium Level 143 Potassium Level 5.0 Chloride Level 102 Carbon Dioxide Level 23 Anion Gap 23 H Blood Urea Nitrogen 61 H Creatinine 9.10 H Glucose Level 92 Calcium Level 8.7 White Blood Count 7.2 Red Blood Count 3.33 L Hemoglobin 9.8 L Hematocrit 30.9 L Mean Corpuscular Volume 92.8 Mean Corpuscular Hemoglobin 29.4 Mean Corpuscular Hemoglobin Concent 31.7 L Red Cell Distribution Width 15.9 H Platelet Count 148 Mean Platelet Volume 11.6 H Neutrophils % 65.4 Lymphocytes % 22.4 Monocytes % 9.1 Eosinophils % 1.9 Basophils % 0.6 Nucleated Red Blood Cells % 0.0 Neutrophils # 4.7 Lymphocytes # 1.6 Monocytes # 0.7 Eosinophils # 0.1 Basophils # 0.0 Nucleated Red Blood Cells # 0.0 Phosphorus Level 7.3 H Magnesium Level 1.7 Test 11/11/16 08:19 11/11/16 12:23 Bedside Glucose 82 99 Medications Medications Current Medications Ondansetron HCl (Zofran Inj) 4 mg Q6H PRN IV NAUSEA AND/OR VOMITING; Start at 18:30 Acetaminophen (Tylenol Tab) 650 mg Q6H PRN PO PAIN LEVEL 1-3 OR FEVER Last administered on 11/09/16t 00:55; Admin Dose 650 MG; Start 11/08/16 at 18:30 Docusate Sodium (Colace) 100 mg Q12H PRN PO CONSTIPATION; Start 11/08/16 at 18: 30 Diagnostic Test (Pha) (Accu-Chek) 1 ea 02 XX ; Start 11/09/16 at 02:00 Miscellaneous Information 1 ea NOTE XX ; Start 11/08/16 at 19:30 Glucose (Glutose) 15 gm Q15M PRN PO DECREASED GLUCOSE; Start 11/08/16 at 19:30 Glucose (Glutose) 22.5 gm Q15M PRN PO DECREASED GLUCOSE; Start 11/08/16 at 19: 30 Dextrose (D50w Syringe) 25 ml Q15M PRN IV DECREASED GLUCOSE; Start 11/08/16 at 19:30 Dextrose (D50w Syringe) 50 ml Q15M PRN IV DECREASED GLUCOSE; Start 11/08/16 at 19:30 Glucagon (Glucagen) 1 mg Q15M PRN IM DECREASED GLUCOSE; Start 11/08/16 at 19:30 Glucose (Glutose) 15 gm Q15M PRN BUCCAL DECREASED GLUCOSE; Start 11/08/16 at 19 :30 Atorvastatin Calcium (Lipitor) 40 mg QHS PO Last administered on 11/10/16 21: 39; Admin Dose 40 MG; Start 11/09/16 at 21:00 Famotidine (Pepcid) 40 mg HS PO Last administered on 11/10/16 21:39; Admin Dose 40 MG; Start 11/09/16 at 21:00 Fenofibrate (Tricor) 48 mg QAM PO Last administered on 11/11/16 08:21; Admin Dose 48 MG; Start 11/10/16 at 09:00 Folic Acid (Folic Acid) 2 mg DAILY PO Last administered on 11/11/16 08:21; Admin Dose 2 MG; Start 11/10/16 at 09:00 Gabapentin (Neurontin) 100 mg TID PO Last administered on 11/11/16 12:24; Admin Dose 100 MG; Start 11/09/16 at 21:00 Metoprolol Tartrate (Lopressor) 12.5 mg BID PO Last administered on 11/10/16 21:30; Admin Dose 12.5 MG; Start 11/09/16 at 13:30 Nifedipine (Procardia Xl) 30 mg BID PO Last administered on 11/10/16 21:38; Admin Dose 30 MG; Start 11/09/16 at 13:30 Epoetin César (Epogen (Esrd)) 10,000 units MoWeFr@17 SC Last administered on 19:29; Admin Dose 10,000 UNITS; Start 11/09/16 at 17:00 Albuterol (Ventolin Hfa) 2 puff Q4H PRN INH WHEEZING AND SOB; Start 11/09/16 at 14:30 Celecoxib (Celebrex) 200 mg DAILY PO Last administered on 11/11/16 08:21; Admin Dose 200 MG; Start 11/10/16 at 09:00 Acetaminophen/ Hydrocodone Bitart ([place] (5/325)) 1 tab Q6H PRN PO pain Last administered on 11/10/16 06:15; Admin Dose 1 TAB; Start 11/09/16 at 14:30 Linagliptin (Tradjenta) 5 mg DAILY PO Last administered on 11/11/16 08:21; Admin Dose 5 MG; Start 11/10/16 at 09:00 Prednisone (Prednisone) 1 mg TID PO Last administered on 11/11/16 12:24; Admin Dose 1 MG; Start 11/09/16 at 21:00 Salmeterol Xinafoate/ Fluticasone (Advair 250/50 Diskus) 1 inh BID INH Last administered on 11/11/16 08:22; Admin Dose 1 INH; Start 11/09/16 at 21:00 Warfarin Sodium 4 mg 4 mg DAILY@17 PO Last administered on 11/10/16 17:23; Admin Dose 4 MG; Start 11/10/16 at 17:00 Ferric Sodium Gluconate Complex 125 mg/Sodium Chloride 110 ml @ 110 mls/hr Q24H IVPB Last administered on 11/11/16 11:16; Admin Dose 110 MLS/HR; Start at 11:00; Stop 11/14/16 at 11:59 Piperacillin Sod/ Tazobactam Sod (Zosyn 2.25gm/ 50ml (Pmx)) 50 ml @ 100 mls/hr Q8 IVPB Last administered on 11/11/16 05:56; Admin Dose 100 MLS/HR; Start at 14:00 Collagenase (Santyl) 1 applic DAILY TOP Last administered on 11/11/16 08:22; Admin Dose 1 APPLIC; Start 11/11/16 at 09:00 Collagenase (Santyl) 1 applic DAILY PRN TOP WOUND CARE; Start 11/10/16 at 15:30 NICO HAY MD Nov 11, 2016 13:36
--- NOTE | 2016-11-11 14:33 | CONS ---
Date/Time of Note Date/Time of Note DATE: 11/11/16 TIME: 14:29 Assessment/Plan Assessment/Plan Chief Complaint/Hosp Course 76 yo female with R IJ thrombosis in the setting of bacteremia. Pt is currently on Coumadin and appears to have developed this clot while on Coumadin. # R IJ CLot -this appears more chronic than acute and is likely provoked and secondary to her c spine injury. I agree that this may be septic thrombophlebitis given her bacteremia -Given that is it relatively asymptomatic and very low likelihood of becoming a PE, I do not think anticoagulation needs to be changed at this time. Furthermore , other newer anticoagulants and LMWH are not safe in patient on dialysis. -continue current dose of coumadin for now. INR 2.44 #breast mass -this was examined on physical exam and appears to be a benign subcutaneous lesion that has been stable for many years - I do not think a bx is necessary at this time Problems: (1) Internal jugular (IJ) vein thromboembolism, chronic Status: Chronic Qualifiers: Laterality: right Qualified Code: I82.C21 - Internal jugular (IJ) vein thromboembolism, chronic, right (2) ESRD (end stage renal disease) on dialysis Status: Chronic (3) Atrial fibrillation Status: Chronic (4) Aortic stenosis Status: Chronic Consultation Date/Type/Reason Admit Date/Time Nov 10, 2016 at 15:14 Initial Consult Date 11/10/16 Type of Consultation: Oncology Reason for Consultation R IJ thrombosis Referring Provider: TOMER GARCIA MD 24 HR Interval Summary Free Text/Dictation pt remains on anticoagulation. denies pain. getting hemodialysis Exam/Review of Systems Vital Signs Vitals Vital Signs Date Time Temp Pulse Resp B/P Pulse Ox O2 Delivery O2 Flow Rate FiO2 11/11/16 12:00 74 11/11/16 11:39 98.5 19 131/64 98 11/11/16 08:20 Nasal Cannula 2.0 Intake and Output 11/10/16 11/10/16 11/11/16 14:59 22:59 06:59 Intake Total 110 ml 1350 ml 350 ml Balance 110 ml 1350 ml 350 ml Exam Constitutional: alert, oriented Psych: no complaints Head: atraumatic, normocephalic Eyes: nl conjunctiva ENMT: nl external ears & nose Neck: non-tender, supple Respiratory: clear to auscultation, normal air movement Cardiovascular: regular rate and rhythm Gastrointestinal: soft Musculoskeletal: nl extremities to inspection, nl gait and stance Extremities: normal pulses Results Result Diagram: 11/11/16 0644 11/11/16 0643 Results 24 hrs Laboratory Tests Test 11/10/16 17:22 11/10/16 21:42 11/11/16 06:43 11/11/16 06:44 Bedside Glucose 117 111 Prothrombin Time 26.8 H Prothrombin Time Ratio 2.1 INR International Normalized Ratio 2.44 Sodium Level 143 Potassium Level 5.0 Chloride Level 102 Carbon Dioxide Level 23 Anion Gap 23 H Blood Urea Nitrogen 61 H Creatinine 9.10 H Glucose Level 92 Calcium Level 8.7 White Blood Count 7.2 Red Blood Count 3.33 L Hemoglobin 9.8 L Hematocrit 30.9 L Mean Corpuscular Volume 92.8 Mean Corpuscular Hemoglobin 29.4 Mean Corpuscular Hemoglobin Concent 31.7 L Red Cell Distribution Width 15.9 H Platelet Count 148 Mean Platelet Volume 11.6 H Neutrophils % 65.4 Lymphocytes % 22.4 Monocytes % 9.1 Eosinophils % 1.9 Basophils % 0.6 Nucleated Red Blood Cells % 0.0 Neutrophils # 4.7 Lymphocytes # 1.6 Monocytes # 0.7 Eosinophils # 0.1 Basophils # 0.0 Nucleated Red Blood Cells # 0.0 Phosphorus Level 7.3 H Magnesium Level 1.7 Test 11/11/16 08:19 11/11/16 12:23 Bedside Glucose 82 99 Medications Medications Current Medications Ondansetron HCl (Zofran Inj) 4 mg Q6H PRN IV NAUSEA AND/OR VOMITING; Start at 18:30 Acetaminophen (Tylenol Tab) 650 mg Q6H PRN PO PAIN LEVEL 1-3 OR FEVER Last administered on 11/09/16t 00:55; Admin Dose 650 MG; Start 11/08/16 at 18:30 Docusate Sodium (Colace) 100 mg Q12H PRN PO CONSTIPATION; Start 11/08/16 at 18: 30 Diagnostic Test (Pha) (Accu-Chek) 1 ea 02 XX ; Start 11/09/16 at 02:00 Miscellaneous Information 1 ea NOTE XX ; Start 11/08/16 at 19:30 Glucose (Glutose) 15 gm Q15M PRN PO DECREASED GLUCOSE; Start 11/08/16 at 19:30 Glucose (Glutose) 22.5 gm Q15M PRN PO DECREASED GLUCOSE; Start 11/08/16 at 19: 30 Dextrose (D50w Syringe) 25 ml Q15M PRN IV DECREASED GLUCOSE; Start 11/08/16 at 19:30 Dextrose (D50w Syringe) 50 ml Q15M PRN IV DECREASED GLUCOSE; Start 11/08/16 at 19:30 Glucagon (Glucagen) 1 mg Q15M PRN IM DECREASED GLUCOSE; Start 11/08/16 at 19:30 Glucose (Glutose) 15 gm Q15M PRN BUCCAL DECREASED GLUCOSE; Start 11/08/16 at 19 :30 Atorvastatin Calcium (Lipitor) 40 mg QHS PO Last administered on 11/10/16 21: 39; Admin Dose 40 MG; Start 11/09/16 at 21:00 Famotidine (Pepcid) 40 mg HS PO Last administered on 11/10/16 21:39; Admin Dose 40 MG; Start 11/09/16 at 21:00 Fenofibrate (Tricor) 48 mg QAM PO Last administered on 11/11/16 08:21; Admin Dose 48 MG; Start 11/10/16 at 09:00 Folic Acid (Folic Acid) 2 mg DAILY PO Last administered on 11/11/16 08:21; Admin Dose 2 MG; Start 11/10/16 at 09:00 Gabapentin (Neurontin) 100 mg TID PO Last administered on 11/11/16 12:24; Admin Dose 100 MG; Start 11/09/16 at 21:00 Metoprolol Tartrate (Lopressor) 12.5 mg BID PO Last administered on 11/10/16 21:30; Admin Dose 12.5 MG; Start 11/09/16 at 13:30 Nifedipine (Procardia Xl) 30 mg BID PO Last administered on 11/10/16 21:38; Admin Dose 30 MG; Start 11/09/16 at 13:30 Epoetin César (Epogen (Esrd)) 10,000 units MoWeFr@17 SC Last administered on 19:29; Admin Dose 10,000 UNITS; Start 11/09/16 at 17:00 Albuterol (Ventolin Hfa) 2 puff Q4H PRN INH WHEEZING AND SOB; Start 11/09/16 at 14:30 Celecoxib (Celebrex) 200 mg DAILY PO Last administered on 11/11/16 08:21; Admin Dose 200 MG; Start 11/10/16 at 09:00 Acetaminophen/ Hydrocodone Bitart ([place] (5/325)) 1 tab Q6H PRN PO pain Last administered on 11/10/16 06:15; Admin Dose 1 TAB; Start 11/09/16 at 14:30 Linagliptin (Tradjenta) 5 mg DAILY PO Last administered on 11/11/16 08:21; Admin Dose 5 MG; Start 11/10/16 at 09:00 Prednisone (Prednisone) 1 mg TID PO Last administered on 11/11/16 12:24; Admin Dose 1 MG; Start 11/09/16 at 21:00 Salmeterol Xinafoate/ Fluticasone (Advair 250/50 Diskus) 1 inh BID INH Last administered on 11/11/16 08:22; Admin Dose 1 INH; Start 11/09/16 at 21:00 Warfarin Sodium 4 mg 4 mg DAILY@17 PO Last administered on 11/10/16 17:23; Admin Dose 4 MG; Start 11/10/16 at 17:00 Ferric Sodium Gluconate Complex 125 mg/Sodium Chloride 110 ml @ 110 mls/hr Q24H IVPB Last administered on 11/11/16 11:16; Admin Dose 110 MLS/HR; Start at 11:00; Stop 11/14/16 at 11:59 Piperacillin Sod/ Tazobactam Sod (Zosyn 2.25gm/ 50ml (Pmx)) 50 ml @ 100 mls/hr Q8 IVPB Last administered on 11/11/16 05:56; Admin Dose 100 MLS/HR; Start at 14:00 Collagenase (Santyl) 1 applic DAILY TOP Last administered on 11/11/16 08:22; Admin Dose 1 APPLIC; Start 11/11/16 at 09:00 Collagenase (Santyl) 1 applic DAILY PRN TOP WOUND CARE; Start 11/10/16 at 15:30 RADHA BARILLAS M.D. Nov 11, 2016 14:32
--- NOTE | 2016-11-11 15:51 | RADRPT ---
Echocardiogram Report Patient Name: ABBIE HATFIELD Gender: Female Date: 1940 Study Date: 11-Nov-2016 [employer] Operator: Ann Langley [facility] Location: [id number] Ref. Physician: EVELYN RANKIN Quality: Adequate Procedures: Transthoracic echocardiogram with complete 2D, M-Mode, and doppler examination. Indications: bacteremia, prosthetic valve. 2D/M Mode Doppler Measurement Value Normal Ranges Measurement Value Normal Ranges LVIDd 2D 4.2 3.5 - 5.6 cm NAEEM Vmax 2.2 cm2 LVIDs 2D 2.7 2.1 - 4.1 cm NAEEM VTI 2.3 cm2 FS 2D 36.3 % AV Mean Jonny 1.6 m/sec LVPWd 2D 1.8 0.6 - 1.1 cm AV Mean PG 11.0 mmHg IVSd 2D 1.7 0.6 - 1.1 cm AV Peak Jonny 2.2 m/sec IVS/LVPW 2D 0.9 AV Peak PG 19.0 mmHg AoR Diam 2D 1.9 2.0 - 3.7 cm AV VTI 44.3 cm LA/Ao 2D 3 0 - 1 LVOT Mean Jonny 1.3 m/sec EDV 2D 74.6 cm3 LVOT Mean PG 7.0 mmHg ESV 2D 19.2 cm3 LVOT Peak Jonny 1.8 m/sec LA Dimen 2D 4.8 2.3 - 4.0 cm LVOT Peak PG 14.0 mmHg LVOT Diam 1.8 cm LVOT VTI 41.0 cm LVOT Area 2.5 cm2 MV E Peak Jonny 1.2 m/sec MV Decel Time 194 msec TR Peak Jonny 3.4 m/sec TR Peak PG 47.0 mmHg RVSP 62.0 mmHg Findings Left Ventricle: Normal left ventricular systolic function. Normal left ventricular cavity size. Normal left ventricular wall thickness. Ejection fraction is visually estimated at 65 %. Tissue Doppler/Mitral Doppler indices are consistent with restrictive physiology with markedly elevated left atrial pressure (Stage IIIIV diastolic dysfunction). Right Ventricle: Normal right ventricular size. Normal right ventricular systolic function. Left Atrium: There is severe enlargement of left atrium. Right Atrium: The right atrium is normal in size. Mitral Valve: Mild mitral leaflet calcification. Mild mitral annular calcification. Trace mitral regurgitation. Aortic Valve: Aortic Valve Bio Prosthesis. Aortic valve Max velocity 2.16 m/sec. Max PG 19.00 mmHg. Mean PG 11.00 mmHg. Trace aortic valve regurgitation. Tricuspid Valve: Normal appearance of the tricuspid valve. Estimated peak PA systolic pressure 62 mmHg. There is mild tricuspid regurgitation. Pulmonic Valve: Normal pulmonic valve appearance. There is mild pulmonic regurgitation. Pericardium: Normal pericardium with no significant pericardial effusion. Aorta: Normal aortic root. IVC: Dilated IVC without respiratory collapse consistent with elevated right atrial pressure. Conclusions 1.1. Normal left ventricular function with EF 60-65%. 2.2. Normal right ventricular size and function. 3.3. Pt is s/p a TAVR with a normally functioning bioprosthetic valve (mean gradient 11mmHg). Limited visualization of the valvular leaflets, but no vegetations seen. 4.4. No vegetations seen on the tricuspid or mitral leaflets on this study. 5.5. Severely elevated pulmonary pressures (62 mmHg). Electronically Signed By: Tommy Baker 11-Nov-2016 15:50:45 -0700 Patient Name: ABBIE HATFIELD Study Date: 11-Nov-2016 [id number]
--- NOTE | 2016-11-11 16:55 | CONS ---
Date/Time of Note Date/Time of Note DATE: 11/11/16 TIME: 16:52 Assessment/Plan Assessment/Plan Chief Complaint/Hosp Course 76 y.o. AA woman with h/o of C2 Fx (s/p fall), s/p TAVR, CAD s/p PCI, LV diastolic dysfunction, normal LVEF, PAF on coumadin, ESRD on HD and other issues who presents with cough and fever and found to have GNR bacteremia and also RIJ thrombus. Echo reveals normal LV fxn, normal prosthetic valve fxn and no vegetations seen (though limited visualization). Pt's HR is 70-80s mostly ( afib). Continue cardiac meds. Abx per medicine team. Problems: Consultation Date/Type/Reason Admit Date/Time Nov 10, 2016 at 15:14 Initial Consult Date 11/10/16 Type of Consultation: Cardiology Reason for Consultation afib Referring Provider: TOMER GARCIA MD 24 HR Interval Summary Free Text/Dictation Pt feels better. Denies f/cp or sob. Exam/Review of Systems Vital Signs Vitals Vital Signs Date Time Temp Pulse Resp B/P Pulse Ox O2 Delivery O2 Flow Rate FiO2 11/11/16 16:00 84 11/11/16 15:54 98.4 19 133/60 96 11/11/16 08:20 Nasal Cannula 2.0 Intake and Output 11/10/16 11/10/16 11/11/16 15:00 23:00 07:00 Intake Total 110 ml 1350 ml 350 ml Balance 110 ml 1350 ml 350 ml Exam Constitutional: alert, other (fatigue but non-toxic), No distress Neck: other (thick, difficult to assess JVP) Respiratory: other (mostly clear anteriorly) Cardiovascular: other (irreg irreg, 1/6 PAKO) Extremities: other (mild LE edema ) Results Result Diagram: 11/11/16 0644 11/11/16 0643 Results 24 hrs Laboratory Tests Test 11/10/16 17:22 11/10/16 21:42 11/11/16 06:43 11/11/16 06:44 Bedside Glucose 117 111 Prothrombin Time 26.8 H Prothrombin Time Ratio 2.1 INR International Normalized Ratio 2.44 Sodium Level 143 Potassium Level 5.0 Chloride Level 102 Carbon Dioxide Level 23 Anion Gap 23 H Blood Urea Nitrogen 61 H Creatinine 9.10 H Glucose Level 92 Calcium Level 8.7 White Blood Count 7.2 Red Blood Count 3.33 L Hemoglobin 9.8 L Hematocrit 30.9 L Mean Corpuscular Volume 92.8 Mean Corpuscular Hemoglobin 29.4 Mean Corpuscular Hemoglobin Concent 31.7 L Red Cell Distribution Width 15.9 H Platelet Count 148 Mean Platelet Volume 11.6 H Neutrophils % 65.4 Lymphocytes % 22.4 Monocytes % 9.1 Eosinophils % 1.9 Basophils % 0.6 Nucleated Red Blood Cells % 0.0 Neutrophils # 4.7 Lymphocytes # 1.6 Monocytes # 0.7 Eosinophils # 0.1 Basophils # 0.0 Nucleated Red Blood Cells # 0.0 Phosphorus Level 7.3 H Magnesium Level 1.7 Test 11/11/16 08:19 11/11/16 12:23 Bedside Glucose 82 99 Medications Medications Current Medications Ondansetron HCl (Zofran Inj) 4 mg Q6H PRN IV NAUSEA AND/OR VOMITING; Start at 18:30 Acetaminophen (Tylenol Tab) 650 mg Q6H PRN PO PAIN LEVEL 1-3 OR FEVER Last administered on 11/09/16t 00:55; Admin Dose 650 MG; Start 11/08/16 at 18:30 Docusate Sodium (Colace) 100 mg Q12H PRN PO CONSTIPATION; Start 11/08/16 at 18: 30 Diagnostic Test (Pha) (Accu-Chek) 1 ea 02 XX ; Start 11/09/16 at 02:00 Miscellaneous Information 1 ea NOTE XX ; Start 11/08/16 at 19:30 Glucose (Glutose) 15 gm Q15M PRN PO DECREASED GLUCOSE; Start 11/08/16 at 19:30 Glucose (Glutose) 22.5 gm Q15M PRN PO DECREASED GLUCOSE; Start 11/08/16 at 19: 30 Dextrose (D50w Syringe) 25 ml Q15M PRN IV DECREASED GLUCOSE; Start 11/08/16 at 19:30 Dextrose (D50w Syringe) 50 ml Q15M PRN IV DECREASED GLUCOSE; Start 11/08/16 at 19:30 Glucagon (Glucagen) 1 mg Q15M PRN IM DECREASED GLUCOSE; Start 11/08/16 at 19:30 Glucose (Glutose) 15 gm Q15M PRN BUCCAL DECREASED GLUCOSE; Start 11/08/16 at 19 :30 Atorvastatin Calcium (Lipitor) 40 mg QHS PO Last administered on 11/10/16 21: 39; Admin Dose 40 MG; Start 11/09/16 at 21:00 Famotidine (Pepcid) 40 mg HS PO Last administered on 11/10/16 21:39; Admin Dose 40 MG; Start 11/09/16 at 21:00 Fenofibrate (Tricor) 48 mg QAM PO Last administered on 11/11/16 08:21; Admin Dose 48 MG; Start 11/10/16 at 09:00 Folic Acid (Folic Acid) 2 mg DAILY PO Last administered on 11/11/16 08:21; Admin Dose 2 MG; Start 11/10/16 at 09:00 Gabapentin (Neurontin) 100 mg TID PO Last administered on 11/11/16 12:24; Admin Dose 100 MG; Start 11/09/16 at 21:00 Metoprolol Tartrate (Lopressor) 12.5 mg BID PO Last administered on 11/10/16 21:30; Admin Dose 12.5 MG; Start 11/09/16 at 13:30 Nifedipine (Procardia Xl) 30 mg BID PO Last administered on 11/10/16 21:38; Admin Dose 30 MG; Start 11/09/16 at 13:30 Epoetin César (Epogen (Esrd)) 10,000 units MoWeFr@17 SC Last administered on 19:29; Admin Dose 10,000 UNITS; Start 11/09/16 at 17:00 Albuterol (Ventolin Hfa) 2 puff Q4H PRN INH WHEEZING AND SOB; Start 11/09/16 at 14:30 Celecoxib (Celebrex) 200 mg DAILY PO Last administered on 11/11/16 08:21; Admin Dose 200 MG; Start 11/10/16 at 09:00 Acetaminophen/ Hydrocodone Bitart ([place] (5/325)) 1 tab Q6H PRN PO pain Last administered on 11/10/16 06:15; Admin Dose 1 TAB; Start 11/09/16 at 14:30 Linagliptin (Tradjenta) 5 mg DAILY PO Last administered on 11/11/16 08:21; Admin Dose 5 MG; Start 11/10/16 at 09:00 Prednisone (Prednisone) 1 mg TID PO Last administered on 11/11/16 12:24; Admin Dose 1 MG; Start 11/09/16 at 21:00 Salmeterol Xinafoate/ Fluticasone (Advair 250/50 Diskus) 1 inh BID INH Last administered on 11/11/16 08:22; Admin Dose 1 INH; Start 11/09/16 at 21:00 Warfarin Sodium 4 mg 4 mg DAILY@17 PO Last administered on 11/10/16 17:23; Admin Dose 4 MG; Start 11/10/16 at 17:00 Ferric Sodium Gluconate Complex 125 mg/Sodium Chloride 110 ml @ 110 mls/hr Q24H IVPB Last administered on 11/11/16 11:16; Admin Dose 110 MLS/HR; Start at 11:00; Stop 11/14/16 at 11:59 Piperacillin Sod/ Tazobactam Sod (Zosyn 2.25gm/ 50ml (Pmx)) 50 ml @ 100 mls/hr Q8 IVPB Last administered on 11/11/16 05:56; Admin Dose 100 MLS/HR; Start at 14:00 Collagenase (Santyl) 1 applic DAILY TOP Last administered on 11/11/16 08:22; Admin Dose 1 APPLIC; Start 11/11/16 at 09:00 Collagenase (Santyl) 1 applic DAILY PRN TOP WOUND CARE; Start 11/10/16 at 15:30 ROM MAHMOOD Nov 11, 2016 16:55
[2016-11-11] MEDS: WARFARIN 2 MG TAB PO SCH (17:33)
[2016-11-11] MEDS: EPOETIN 10000 UNITS/1 ML INJ (ESRD) SC SCH (17:53)
--- NOTE | 2016-11-11 17:55 | PN ---
Date/Time of Note Date/Time of Note DATE: 11/11/16 TIME: 17:48 Assessment/Plan VTE Prophylaxis VTE Prophylaxis Intervention: other (warfarin) Lines/Catheters IV [facility] Saline Lock Assessment/Plan Problems: (1) Bacteremia Status: Acute Comment: One culture identified as Bacillus sp. sensitive to both antibiotics pt. is receiving. ID following. (2) Internal jugular (IJ) vein thromboembolism, chronic Status: Chronic Comment: Possibly infected. ID and heme following but w/ therapeutic INR not much else to do at this time Qualifiers: Laterality: right Qualified Code: I82.C21 - Internal jugular (IJ) vein thromboembolism, chronic, right (3) Open scalp wound Status: Acute Comment: Wound cx P. Unlikely source of infection (4) Dens fracture Status: Chronic Comment: Not healed. Needs chronic c-collar (5) COPD (chronic obstructive pulmonary disease) Status: Chronic Comment: Cont. steroids and inhalers Qualifiers: COPD type: unspecified COPD Qualified Code: J44.9 - Chronic obstructive pulmonary disease, unspecified COPD type (6) Sarcoidosis Status: Chronic Comment: Cont. 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 Cards following (8) Aortic stenosis Status: Chronic Comment: S/p TAVR. Valve appears normal on ECHO. Cards following (9) Atherosclerotic heart disease of [place] coronary artery without angina pectoris Status: Chronic Comment: Cards monitoring (10) Left bundle branch block (LBBB) Status: Chronic Comment: Cards monitoring (11) Diastolic dysfunction Status: Chronic Comment: Cards monitoring (12) Pulmonary hypertension Status: Chronic Comment: Discovered on ECHO today. Noted to be severe. Likely multifactorial etiology. Cards following (13) Atrial fibrillation Status: Chronic Comment: Has not been in RVR since admit. Cards following (14) ESRD (end stage renal disease) on dialysis Status: Chronic Comment: Cont. HD per renal (15) Type 2 diabetes mellitus with diabetic chronic kidney disease Status: Chronic Comment: Excellent control w/ linagliptin (16) Breast mass in female Status: Acute Comment: No biopsy at this time per onc. Subjective 24 Hr Interval Summary Constitutional: improved (wants to go home), no complaints Respiratory: no complaints Cardiovascular: no complaints Gastrointestinal: no complaints Genitourinary: no complaints Musculoskeletal: no complaints Neurologic: no complaints Exam/Review of Systems Vital Signs Vitals VS - Last 72 Hours, by Label Date Time Temp Pulse Resp B/P Pulse Ox O2 Delivery O2 Flow Rate FiO2 11/11/16 16:00 84 11/11/16 15:54 98.4 109 19 133/60 96 11/11/16 14:32 85 18 11/11/16 14:30 88 11/11/16 14:00 90 11/11/16 13:30 89 11/11/16 13:00 88 11/11/16 12:30 85 11/11/16 12:00 88 11/11/16 12:00 74 11/11/16 11:39 98.5 82 19 131/64 98 11/11/16 11:30 86 18 11/11/16 11:30 83 11/11/16 08:20 Nasal Cannula 2.0 11/11/16 08:00 89 11/11/16 07:34 98.1 82 19 141/58 97 11/11/16 04:50 83 11/11/16 04:23 98.4 101 20 121/65 94 11/11/16 00:45 80 11/11/16 00:32 98.3 99 20 124/64 93 11/10/16 21:00 Nasal Cannula 2.0 11/10/16 20:42 83 11/10/16 20:00 98.2 107 20 121/60 95 11/10/16 17:20 95 1.0 11/10/16 16:30 84 11/10/16 15:39 98.6 84 16 125/59 90 11/10/16 14:00 98 11/10/16 11:37 98.4 85 18 112/53 91 11/10/16 08:30 91 11/10/16 08:13 98.6 98 18 139/61 92 11/10/16 04:00 87 11/10/16 00:17 97.9 97 20 110/51 93 11/10/16 00:00 89 11/09/16 21:00 Nasal Cannula 2.0 11/09/16 20:06 97.7 74 18 120/54 94 11/09/16 20:00 82 11/09/16 16:30 72 11/09/16 16:00 81 11/09/16 16:00 82 19 11/09/16 15:50 79 11/09/16 15:45 97.2 78 17 98/45 94 11/09/16 15:20 81 11/09/16 14:50 82 11/09/16 14:20 82 11/09/16 13:50 81 11/09/16 13:50 80 19 11/09/16 13:35 68 11/09/16 11:49 97.9 73 19 97/50 97 11/09/16 08:45 Nasal Cannula 11/09/16 08:30 85 11/09/16 07:51 98.6 84 18 94/60 98 11/09/16 04:45 77 11/09/16 04:09 98.0 77 19 107/52 99 11/09/16 00:28 81 11/08/16 23:38 98.6 93 19 97/51 98 11/08/16 22:21 99.2 90 19 102/56 95 11/08/16 22:00 Nasal Cannula 2.0 11/08/16 21:19 90 11/08/16 19:15 99.1 91 22 94/58 97 Nasal Cannula 2.0 Vital Signs Date Time Temp Pulse Resp B/P Pulse Ox O2 Delivery O2 Flow Rate FiO2 11/11/16 16:00 84 11/11/16 15:54 98.4 19 133/60 96 11/11/16 08:20 Nasal Cannula 2.0 Intake and Output 11/10/16 11/10/16 11/11/16 15:00 23:00 07:00 Intake Total 110 ml 1350 ml 350 ml Balance 110 ml 1350 ml 350 ml Exam Constitutional: alert, frail, obese, oriented Psych: nl mood/affect, no complaints Respiratory: clear to auscultation, normal air movement Cardiovascular: nl pulses, regular rate and rhythm, No edema, No murmurs/extra sounds, No rub Gastrointestinal: bowel sounds, nl liver, spleen, non-tender, soft, No mass, No rebound or guarding Musculoskeletal: nl extremities to inspection Extremities: normal pulses, No clubbing, No cyanosis, No edema 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: [employer] II-XII intact, nl mental status, nl speech, nl strength Additional Comments Bedside Glucose - 72 Hours Test 11/08/16 21:35 11/09/16 09:09 11/09/16 12:22 11/09/16 17:41 Bedside Glucose 115mg/dL (70-220) 69mg/dL (70-220) L 116mg/dL (70-220) 133mg/dL (70-220) Test 11/09/16 21:05 11/10/16 08:16 11/10/16 12:10 11/10/16 17:22 Bedside Glucose 144mg/dL (70-220) 85mg/dL (70-220) 89mg/dL (70-220) 117mg/dL (70-220) Test 11/10/16 21:42 11/11/16 08:19 11/11/16 12:23 11/11/16 17:32 Bedside Glucose 111mg/dL (70-220) 82mg/dL (70-220) 99mg/dL (70-220) 101mg/dL (70-220) Results Result Diagram: 11/11/16 0644 11/11/16 0643 Results 24 hrs Laboratory Tests Test 11/10/16 21:42 11/11/16 06:43 11/11/16 06:44 11/11/16 08:19 Bedside Glucose 111 82 Prothrombin Time 26.8 H Prothrombin Time Ratio 2.1 INR International Normalized Ratio 2.44 Sodium Level 143 Potassium Level 5.0 Chloride Level 102 Carbon Dioxide Level 23 Anion Gap 23 H Blood Urea Nitrogen 61 H Creatinine 9.10 H Glucose Level 92 Calcium Level 8.7 White Blood Count 7.2 Red Blood Count 3.33 L Hemoglobin 9.8 L Hematocrit 30.9 L Mean Corpuscular Volume 92.8 Mean Corpuscular Hemoglobin 29.4 Mean Corpuscular Hemoglobin Concent 31.7 L Red Cell Distribution Width 15.9 H Platelet Count 148 Mean Platelet Volume 11.6 H Neutrophils % 65.4 Lymphocytes % 22.4 Monocytes % 9.1 Eosinophils % 1.9 Basophils % 0.6 Nucleated Red Blood Cells % 0.0 Neutrophils # 4.7 Lymphocytes # 1.6 Monocytes # 0.7 Eosinophils # 0.1 Basophils # 0.0 Nucleated Red Blood Cells # 0.0 Phosphorus Level 7.3 H Magnesium Level 1.7 Test 11/11/16 12:23 11/11/16 17:32 Bedside Glucose 99 101 Medications Medications Current Medications Ondansetron HCl (Zofran Inj) 4 mg Q6H PRN IV NAUSEA AND/OR VOMITING; Start at 18:30 Acetaminophen (Tylenol Tab) 650 mg Q6H PRN PO PAIN LEVEL 1-3 OR FEVER Last administered on 11/09/16 00:55; Admin Dose 650 MG; Start 11/08/16 at 18:30 Docusate Sodium (Colace) 100 mg Q12H PRN PO CONSTIPATION; Start 11/08/16 at 18: 30 Diagnostic Test (Pha) (Accu-Chek) 1 ea 02 XX ; Start 11/09/16 at 02:00 Miscellaneous Information 1 ea NOTE XX ; Start 11/08/16 at 19:30 Glucose (Glutose) 15 gm Q15M PRN PO DECREASED GLUCOSE; Start 11/08/16 at 19:30 Glucose (Glutose) 22.5 gm Q15M PRN PO DECREASED GLUCOSE; Start 11/08/16 at 19: 30 Dextrose (D50w Syringe) 25 ml Q15M PRN IV DECREASED GLUCOSE; Start 11/08/16 at 19:30 Dextrose (D50w Syringe) 50 ml Q15M PRN IV DECREASED GLUCOSE; Start 11/08/16 at 19:30 Glucagon (Glucagen) 1 mg Q15M PRN IM DECREASED GLUCOSE; Start 11/08/16 at 19:30 Glucose (Glutose) 15 gm Q15M PRN BUCCAL DECREASED GLUCOSE; Start 11/08/16 at 19 :30 Atorvastatin Calcium (Lipitor) 40 mg QHS PO Last administered on 11/10/16 21: 39; Admin Dose 40 MG; Start 11/09/16 at 21:00 Famotidine (Pepcid) 40 mg HS PO Last administered on 11/10/16 21:39; Admin Dose 40 MG; Start 11/09/16 at 21:00 Fenofibrate (Tricor) 48 mg QAM PO Last administered on 11/11/16 08:21; Admin Dose 48 MG; Start 11/10/16 at 09:00 Folic Acid (Folic Acid) 2 mg DAILY PO Last administered on 11/11/16 08:21; Admin Dose 2 MG; Start 11/10/16 at 09:00 Gabapentin (Neurontin) 100 mg TID PO Last administered on 11/11/16 12:24; Admin Dose 100 MG; Start 11/09/16 at 21:00 Metoprolol Tartrate (Lopressor) 12.5 mg BID PO Last administered on 11/10/16 21:30; Admin Dose 12.5 MG; Start 11/09/16 at 13:30 Nifedipine (Procardia Xl) 30 mg BID PO Last administered on 11/10/16 21:38; Admin Dose 30 MG; Start 11/09/16 at 13:30 Epoetin César (Epogen (Esrd)) 10,000 units MoWeFr@17 SC Last administered on 19:29; Admin Dose 10,000 UNITS; Start 11/09/16 at 17:00 Albuterol (Ventolin Hfa) 2 puff Q4H PRN INH WHEEZING AND SOB; Start 11/09/16 at 14:30 Celecoxib (Celebrex) 200 mg DAILY PO Last administered on 11/11/16 08:21; Admin Dose 200 MG; Start 11/10/16 at 09:00 Acetaminophen/ Hydrocodone Bitart ([place] (5/325)) 1 tab Q6H PRN PO pain Last administered on 11/10/16 06:15; Admin Dose 1 TAB; Start 11/09/16 at 14:30 Linagliptin (Tradjenta) 5 mg DAILY PO Last administered on 11/11/16 08:21; Admin Dose 5 MG; Start 11/10/16 at 09:00 Prednisone (Prednisone) 1 mg TID PO Last administered on 11/11/16 12:24; Admin Dose 1 MG; Start 11/09/16 at 21:00 Salmeterol Xinafoate/ Fluticasone (Advair 250/50 Diskus) 1 inh BID INH Last administered on 11/11/16 08:22; Admin Dose 1 INH; Start 11/09/16 at 21:00 Warfarin Sodium 4 mg 4 mg DAILY@17 PO Last administered on 11/11/16 17:33; Admin Dose 4 MG; Start 11/10/16 at 17:00 Ferric Sodium Gluconate Complex 125 mg/Sodium Chloride 110 ml @ 110 mls/hr Q24H IVPB Last administered on 11/11/16 11:16; Admin Dose 110 MLS/HR; Start at 11:00; Stop 11/14/16 at 11:59 Piperacillin Sod/ Tazobactam Sod (Zosyn 2.25gm/ 50ml (Pmx)) 50 ml @ 100 mls/hr Q8 IVPB Last administered on 11/11/16 05:56; Admin Dose 100 MLS/HR; Start at 14:00 Collagenase (Santyl) 1 applic DAILY TOP Last administered on 11/11/16 08:22; Admin Dose 1 APPLIC; Start 11/11/16 at 09:00 Collagenase (Santyl) 1 applic DAILY PRN TOP WOUND CARE; Start 11/10/16 at 15:30 SOBEIDA ENRIQUEZ MD Nov 11, 2016 17:55
[2016-11-11] MEDS: ATORVASTATIN 40 MG TAB PO SCH (20:49)
[2016-11-11] MEDS: FAMOTIDINE 20 MG TAB PO SCH (20:50)
[2016-11-12] VITALS (14 sets, daily range): BP systolic 113–140; BP diastolic 54–96; PULSE 80–94; RESP 19–20
[2016-11-12] MEDS: ACCU-CHEK XX SCH (02:03)
[2016-11-12] MEDS: PIPER-TAZO 2.25 GM (PMX) 50 ML IVPB SCH ×2 (05:57→13:36)
[2016-11-12] MEDS: INSULIN ASPART [NOVOLOG] 3 ML PEN SC SCH ×4 (08:00→20:40)
[2016-11-12] MEDS: LINAGLIPTIN 5 MG TABLET PO SCH (08:10)
[2016-11-12] MEDS: FOLIC ACID 1 MG TAB PO SCH (08:10)
[2016-11-12] MEDS: GABAPENTIN 100 MG CAP PO SCH ×3 (08:10→20:40)
[2016-11-12] MEDS: predniSONE 1 MG TAB PO SCH ×3 (08:10→20:39)
[2016-11-12] MEDS: FENOFIBRATE 48 MG TAB PO SCH (08:10)
[2016-11-12] MEDS: SEVELAMER CARBONATE 0.8 GM PKT PO SCH ×3 (08:10→17:16)
[2016-11-12] MEDS: CELECOXIB 200 MG CAP PO SCH (08:10)
[2016-11-12] MEDS: METOPROLOL 25 MG TAB PO SCH ×2 (08:12→20:40)
[2016-11-12] MEDS: NIFEdipine (XL) 30 MG TAB PO SCH ×2 (08:12→20:40)
[2016-11-12] MEDS: SALMETEROL/FLUTICASONE 250/50 INHA INH SCH ×2 (08:13→20:39)
[2016-11-12] MEDS: COLLAGENASE 30 GM TUBE TOP SCH (08:13)
--- NOTE | 2016-11-12 09:55 | CONS ---
Date/Time of Note Date/Time of Note DATE: 11/12/16 TIME: 09:49 Assessment/Plan Assessment/Plan Problems: (1) Internal jugular (IJ) vein thromboembolism, chronic Status: Chronic Comment: old... no issue now...fxn AVF on same side, RUE, is OK Qualifiers: Laterality: right Qualified Code: I82.C21 - Internal jugular (IJ) vein thromboembolism, chronic, right (2) ESRD (end stage renal disease) on dialysis Status: Chronic Comment: s/p HD yest without issue... will get PT to get her OOB (3) Bacteremia Status: Acute Comment: afeb... nl WBC... f/u cxs appear (-) so far (4) Aortic stenosis Status: Chronic Comment: s/p TAVR, stable Consultation Date/Type/Reason Admit Date/Time Nov 10, 2016 at 15:14 Initial Consult Date 11/09/16 Type of Consultation: neph Referring Provider: TOMER GARCIA MD 24 HR Interval Summary Free Text/Dictation stable... cont afeb, controlled BP, and no leukocytosis... wants to get up and move! Exam/Review of Systems Vital Signs Vitals Vital Signs Date Time Temp Pulse Resp B/P Pulse Ox O2 Delivery O2 Flow Rate FiO2 11/12/16 08:14 86 11/12/16 08:10 Nasal Cannula 2.0 11/12/16 07:45 98.4 19 132/54 97 Intake and Output 11/11/16 11/11/16 11/12/16 15:00 23:00 07:00 Intake Total 500 ml 450 ml 250 ml Output Total 2000 ml 1500 ml Balance -1500 ml -1050 ml 250 ml Exam Constitutional: alert, oriented Neck: other (in hard collar) Respiratory: clear to auscultation Cardiovascular: irregular rhythm Gastrointestinal: soft Extremities: normal pulses (fxn AVF RUE) Results Result Diagram: 11/11/16 0644 11/11/16 0643 Results 24 hrs Laboratory Tests Test 11/11/16 12:23 11/11/16 17:32 11/11/16 20:48 11/12/16 08:11 Bedside Glucose 99 101 117 71 Medications Medications Current Medications Ondansetron HCl (Zofran Inj) 4 mg Q6H PRN IV NAUSEA AND/OR VOMITING; Start 7/ 25/17 at 18:30 Acetaminophen (Tylenol Tab) 650 mg Q6H PRN PO PAIN LEVEL 1-3 OR FEVER Last administered on 11/09/16 00:55; Admin Dose 650 MG; Start 11/08/16 at 18:30 Docusate Sodium (Colace) 100 mg Q12H PRN PO CONSTIPATION; Start 11/08/16 at 18: 30 Diagnostic Test (Pha) (Accu-Chek) 1 ea 02 XX Last administered on 11/12/16 02: 03; Admin Dose 1 EA; Start 11/09/16 at 02:00 Miscellaneous Information 1 ea NOTE XX ; Start 11/08/16 at 19:30 Glucose (Glutose) 15 gm Q15M PRN PO DECREASED GLUCOSE; Start 11/08/16 at 19:30 Glucose (Glutose) 22.5 gm Q15M PRN PO DECREASED GLUCOSE; Start 11/08/16 at 19: 30 Dextrose (D50w Syringe) 25 ml Q15M PRN IV DECREASED GLUCOSE; Start 11/08/16 at 19:30 Dextrose (D50w Syringe) 50 ml Q15M PRN IV DECREASED GLUCOSE; Start 11/08/16 at 19:30 Glucagon (Glucagen) 1 mg Q15M PRN IM DECREASED GLUCOSE; Start 11/08/16 at 19:30 Glucose (Glutose) 15 gm Q15M PRN BUCCAL DECREASED GLUCOSE; Start 11/08/16 at 19 :30 Atorvastatin Calcium (Lipitor) 40 mg QHS PO Last administered on 11/11/16 20: 49; Admin Dose 40 MG; Start 11/09/16 at 21:00 Famotidine (Pepcid) 40 mg HS PO Last administered on 11/11/16 20:50; Admin Dose 40 MG; Start 11/09/16 at 21:00 Fenofibrate (Tricor) 48 mg QAM PO Last administered on 11/12/16 08:10; Admin Dose 48 MG; Start 11/10/16 at 09:00 Folic Acid (Folic Acid) 2 mg DAILY PO Last administered on 11/12/16 08:10; Admin Dose 2 MG; Start 11/10/16 at 09:00 Gabapentin (Neurontin) 100 mg TID PO Last administered on 11/12/16 08:10; Admin Dose 100 MG; Start 11/09/16 at 21:00 Metoprolol Tartrate (Lopressor) 12.5 mg BID PO Last administered on 11/12/16 08:12; Admin Dose 12.5 MG; Start 11/09/16 at 13:30 Nifedipine (Procardia Xl) 30 mg BID PO Last administered on 11/12/16 08:12; Admin Dose 30 MG; Start 11/09/16 at 13:30 Epoetin César (Epogen (Esrd)) 10,000 units MoWeFr@17 SC Last administered on 17:53; Admin Dose 10,000 UNITS; Start 11/09/16 at 17:00 Albuterol (Ventolin Hfa) 2 puff Q4H PRN INH WHEEZING AND SOB; Start 11/09/16 at 14:30 Celecoxib (Celebrex) 200 mg DAILY PO Last administered on 11/12/16 08:10; Admin Dose 200 MG; Start 11/10/16 at 09:00 Acetaminophen/ Hydrocodone Bitart ([place] (5/325)) 1 tab Q6H PRN PO pain Last administered on 11/10/16 06:15; Admin Dose 1 TAB; Start 11/09/16 at 14:30 Linagliptin (Tradjenta) 5 mg DAILY PO Last administered on 11/12/16 08:10; Admin Dose 5 MG; Start 11/10/16 at 09:00 Prednisone (Prednisone) 1 mg TID PO Last administered on 11/12/16 08:10; Admin Dose 1 MG; Start 11/09/16 at 21:00 Salmeterol Xinafoate/ Fluticasone (Advair 250/50 Diskus) 1 inh BID INH Last administered on 11/12/16 08:13; Admin Dose 1 INH; Start 11/09/16 at 21:00 Warfarin Sodium 4 mg 4 mg DAILY@17 PO Last administered on 11/11/16 17:33; Admin Dose 4 MG; Start 11/10/16 at 17:00 Ferric Sodium Gluconate Complex 125 mg/Sodium Chloride 110 ml @ 110 mls/hr Q24H IVPB Last administered on 11/11/16 11:16; Admin Dose 110 MLS/HR; Start at 11:00; Stop 11/14/16 at 11:59 Piperacillin Sod/ Tazobactam Sod (Zosyn 2.25gm/ 50ml (Pmx)) 50 ml @ 100 mls/hr Q8 IVPB Last administered on 11/12/16 05:57; Admin Dose 100 MLS/HR; Start at 14:00 Collagenase (Santyl) 1 applic DAILY TOP Last administered on 11/12/16 08:13; Admin Dose 1 APPLIC; Start 11/11/16 at 09:00 Collagenase (Santyl) 1 applic DAILY PRN TOP WOUND CARE; Start 11/10/16 at 15:30 NICO HAY MD Nov 12, 2016 09:55
[2016-11-12] MEDS: SOD FERRIC GLUC COMPLX 125 MG in SOD CHLORIDE 0.9% 100 ML IVPB SCH (11:45)
--- NOTE | 2016-11-12 15:38 | CONS ---
Date/Time of Note Date/Time of Note DATE: 11/12/16 TIME: 15:36 Assessment/Plan Assessment/Plan Additional Assessment/Plan Impression: # Atrial Fibrillation- non valvular, rate fair controlled. 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 hematology consulting. likely chronic s/p fall/cervical fxr. # s/p TAVR- stable # s/p fall in 09/2016 with C2 cervical fracture remains in neck brace # COPD - stable. # ESRD on iHD # HTN- bp stable # CAD- stable no cp >> increase BB back to 25 BID >> continue remainder of meds >> HD per renal >> can follow as needed Consultation Date/Type/Reason Admit Date/Time Nov 10, 2016 at 15:14 Initial Consult Date 11/10/16 Type of Consultation: Cardiology Referring Provider: TOMER GARCIA MD 24 HR Interval Summary Free Text/Dictation Pt has not cardiac complaints. However is anxious and unable to sleep Exam/Review of Systems Vital Signs Vitals Vital Signs Date Time Temp Pulse Resp B/P Pulse Ox O2 Delivery O2 Flow Rate FiO2 11/12/16 12:16 80 11/12/16 11:53 98.5 19 113/62 95 11/12/16 08:10 Nasal Cannula 2.0 Intake and Output 11/11/16 11/11/16 11/12/16 15:00 23:00 07:00 Intake Total 500 ml 450 ml 250 ml Output Total 2000 ml 1500 ml Balance -1500 ml -1050 ml 250 ml Exam Constitutional: alert, oriented, well developed Psych: anxiety, no complaints Head: normocephalic Eyes: EOMI, nl conjunctiva ENMT: nl external ears & nose Neck: supple, No jvd Respiratory: diminished breath sounds, wheezing Cardiovascular: edema (1++), irregular rhythm Gastrointestinal: non-tender, soft Musculoskeletal: nl extremities to inspection Extremities: normal pulses Results Result Diagram: 11/11/16 0644 11/11/16 0643 Results 24 hrs Laboratory Tests Test 11/11/16 17:32 11/11/16 20:48 11/12/16 08:11 11/12/16 11:46 Bedside Glucose 101 117 71 73 Medications Medications Current Medications Ondansetron HCl (Zofran Inj) 4 mg Q6H PRN IV NAUSEA AND/OR VOMITING; Start at 18:30 Acetaminophen (Tylenol Tab) 650 mg Q6H PRN PO PAIN LEVEL 1-3 OR FEVER Last administered on 11/09/16 00:55; Admin Dose 650 MG; Start 11/08/16 at 18:30 Docusate Sodium (Colace) 100 mg Q12H PRN PO CONSTIPATION; Start 11/08/16 at 18: 30 Diagnostic Test (Pha) (Accu-Chek) 1 ea 02 XX Last administered on 11/12/16 02: 03; Admin Dose 1 EA; Start 11/09/16 at 02:00 Miscellaneous Information 1 ea NOTE XX ; Start 11/08/16 at 19:30 Glucose (Glutose) 15 gm Q15M PRN PO DECREASED GLUCOSE; Start 11/08/16 at 19:30 Glucose (Glutose) 22.5 gm Q15M PRN PO DECREASED GLUCOSE; Start 11/08/16 at 19: 30 Dextrose (D50w Syringe) 25 ml Q15M PRN IV DECREASED GLUCOSE; Start 11/08/16 at 19:30 Dextrose (D50w Syringe) 50 ml Q15M PRN IV DECREASED GLUCOSE; Start 11/08/16 at 19:30 Glucagon (Glucagen) 1 mg Q15M PRN IM DECREASED GLUCOSE; Start 11/08/16 at 19:30 Glucose (Glutose) 15 gm Q15M PRN BUCCAL DECREASED GLUCOSE; Start 11/08/16 at 19 :30 Atorvastatin Calcium (Lipitor) 40 mg QHS PO Last administered on 11/11/16 20: 49; Admin Dose 40 MG; Start 11/09/16 at 21:00 Famotidine (Pepcid) 40 mg HS PO Last administered on 11/11/16 20:50; Admin Dose 40 MG; Start 11/09/16 at 21:00 Fenofibrate (Tricor) 48 mg QAM PO Last administered on 11/12/16 08:10; Admin Dose 48 MG; Start 11/10/16 at 09:00 Folic Acid (Folic Acid) 2 mg DAILY PO Last administered on 11/12/16 08:10; Admin Dose 2 MG; Start 11/10/16 at 09:00 Gabapentin (Neurontin) 100 mg TID PO Last administered on 11/12/16 13:36; Admin Dose 100 MG; Start 11/09/16 at 21:00 Metoprolol Tartrate (Lopressor) 12.5 mg BID PO Last administered on 11/12/16 08:12; Admin Dose 12.5 MG; Start 11/09/16 at 13:30 Nifedipine (Procardia Xl) 30 mg BID PO Last administered on 11/12/16 08:12; Admin Dose 30 MG; Start 11/09/16 at 13:30 Epoetin César (Epogen (Esrd)) 10,000 units MoWeFr@17 SC Last administered on 17:53; Admin Dose 10,000 UNITS; Start 11/09/16 at 17:00 Albuterol (Ventolin Hfa) 2 puff Q4H PRN INH WHEEZING AND SOB; Start 11/09/16 at 14:30 Celecoxib (Celebrex) 200 mg DAILY PO Last administered on 11/12/16 08:10; Admin Dose 200 MG; Start 11/10/16 at 09:00 Acetaminophen/ Hydrocodone Bitart ([place] (5/325)) 1 tab Q6H PRN PO pain Last administered on 11/10/16 06:15; Admin Dose 1 TAB; Start 11/09/16 at 14:30 Linagliptin (Tradjenta) 5 mg DAILY PO Last administered on 11/12/16 08:10; Admin Dose 5 MG; Start 11/10/16 at 09:00 Prednisone (Prednisone) 1 mg TID PO Last administered on 11/12/16 13:36; Admin Dose 1 MG; Start 11/09/16 at 21:00 Salmeterol Xinafoate/ Fluticasone (Advair 250/50 Diskus) 1 inh BID INH Last administered on 11/12/16 08:13; Admin Dose 1 INH; Start 11/09/16 at 21:00 Warfarin Sodium 4 mg 4 mg DAILY@17 PO Last administered on 11/11/16 17:33; Admin Dose 4 MG; Start 11/10/16 at 17:00 Ferric Sodium Gluconate Complex 125 mg/Sodium Chloride 110 ml @ 110 mls/hr Q24H IVPB Last administered on 11/12/16 11:45; Admin Dose 110 MLS/HR; Start at 11:00; Stop 11/14/16 at 11:59 Piperacillin Sod/ Tazobactam Sod (Zosyn 2.25gm/ 50ml (Pmx)) 50 ml @ 100 mls/hr Q8 IVPB Last administered on 11/12/16 13:36; Admin Dose 100 MLS/HR; Start at 14:00 Collagenase (Santyl) 1 applic DAILY TOP Last administered on 11/12/16 08:13; Admin Dose 1 APPLIC; Start 11/11/16 at 09:00 Collagenase (Santyl) 1 applic DAILY PRN TOP WOUND CARE; Start 11/10/16 at 15:30 Miscellaneous Information (*Rx Drug Level Order Reminder*) RANDOM VANCOMYCIN LEVEL 7... ONCE ONCE XX ; Start 11/13/16 at 05:00; Stop 11/13/16 at 05:01 TERE VALENTINE MD Nov 12, 2016 15:38
[2016-11-12] MEDS: LORAZEPAM 2 MG INJ IV PRN (16:14)
--- NOTE | 2016-11-12 16:27 | PN ---
Date/Time of Note Date/Time of Note DATE: 11/12/16 TIME: 16:16 Assessment/Plan VTE Prophylaxis VTE Prophylaxis Intervention: other (warfarin) Lines/Catheters IV Catheter Type (from Nrsg): Saline Lock Assessment/Plan Problems: (1) Delirium Status: Acute Comment: Unknown etiology. Will add ativan. Pt. cannot be allowed to continue to remove her c-collar or O2. Will restrain. Defer to ID for infectious cause. (2) Diarrhea Status: Acute Comment: R/o c.diff. Poss. cause of delirium (3) Bacteremia Status: Acute Comment: E.coli in blood in addition to bacillus. On sensitivities, resistant to ampicillin. Possibly applies to zosyn. Will defer to ID if gram (-) coverage needs to be changed. (4) Internal jugular (IJ) vein thromboembolism, chronic Status: Chronic Comment: Therapeutic INR. Cont. warfarin Qualifiers: Laterality: right Qualified Code: I82.C21 - Internal jugular (IJ) vein thromboembolism, chronic, right (5) Dens fracture Status: Chronic Comment: Healing poorly. Cont. c-collar (6) COPD (chronic obstructive pulmonary disease) Status: Chronic Comment: Cont. prednisone and inhalers Qualifiers: COPD type: unspecified COPD Qualified Code: J44.9 - Chronic obstructive pulmonary disease, unspecified COPD type (7) Sarcoidosis Status: Chronic Comment: Cont. prednisone (8) Obstructive sleep apnea Status: Chronic Comment: Possibly CO2 retention contributing to AMS. Add CPAP during sleep to improve. (9) Aortic stenosis Status: Chronic Comment: S/p TAVR. No vegetations. Cards monitoring. (10) Diastolic dysfunction Status: Chronic Comment: Cards monitoring (11) Left bundle branch block (LBBB) Status: Chronic Comment: Cards monitoring (12) Atherosclerotic heart disease of [place] coronary artery without angina pectoris Status: Chronic Comment: Cards monitoring (13) Hypertension associated with chronic kidney disease due to type 2 diabetes mellitus Status: Chronic Comment: BP controlled. Cards monitoring (14) Atrial fibrillation Status: Chronic Comment: Appropriately anticoagulated and rate controlled (15) Pulmonary hypertension Status: Chronic Comment: Severe by ECHO. Cards monitoring (16) ESRD (end stage renal disease) on dialysis Status: Chronic Comment: Cont. HD per renal (17) Type 2 diabetes mellitus with diabetic chronic kidney disease Status: Chronic Comment: Excellent glycemic control. Cont. linagliptin (18) Breast mass in female Status: Acute Comment: No FNA at this time per onc. Subjective 24 Hr Interval Summary Constitutional: disoriented, requiring O2 Respiratory: shortness of breath Cardiovascular: no complaints Gastrointestinal: diarrhea (per RN) Genitourinary: no complaints Musculoskeletal: no complaints Neurologic: confusion Psychological: anxiety (screaming in bed, "something wrong with me, I have to sit up,"), confusion (repeatedly removing c-collar and O2) Exam/Review of Systems Vital Signs Vitals VS - Last 72 Hours, by Label Date Time Temp Pulse Resp B/P Pulse Ox O2 Delivery O2 Flow Rate FiO2 11/12/16 16:14 98.5 78 19 138/73 96 11/12/16 12:16 80 11/12/16 11:53 98.5 69 19 113/62 95 11/12/16 08:14 86 11/12/16 08:10 Nasal Cannula 2.0 11/12/16 07:45 98.4 88 19 132/54 97 11/12/16 04:24 80 11/12/16 03:52 98.0 91 20 140/62 97 11/12/16 00:21 80 11/11/16 23:52 98.3 71 20 110/55 98 11/11/16 20:22 90 11/11/16 20:00 Nasal Cannula 2.0 11/11/16 16:00 84 11/11/16 15:54 98.4 109 19 133/60 96 11/11/16 14:32 85 18 11/11/16 14:30 88 11/11/16 14:00 90 11/11/16 13:30 89 11/11/16 13:00 88 11/11/16 12:30 85 11/11/16 12:00 88 11/11/16 12:00 74 11/11/16 11:39 98.5 82 19 131/64 98 11/11/16 11:30 86 18 11/11/16 11:30 83 11/11/16 08:20 Nasal Cannula 2.0 11/11/16 08:00 89 11/11/16 07:34 98.1 82 19 141/58 97 11/11/16 04:50 83 11/11/16 04:23 98.4 101 20 121/65 94 11/11/16 00:45 80 11/11/16 00:32 98.3 99 20 124/64 93 11/10/16 21:00 Nasal Cannula 2.0 11/10/16 20:42 83 11/10/16 20:00 98.2 107 20 121/60 95 11/10/16 17:20 95 1.0 11/10/16 16:30 84 11/10/16 15:39 98.6 84 16 125/59 90 11/10/16 14:00 98 11/10/16 11:37 98.4 85 18 112/53 91 11/10/16 08:30 91 11/10/16 08:13 98.6 98 18 139/61 92 11/10/16 04:00 87 11/10/16 00:17 97.9 97 20 110/51 93 11/10/16 00:00 89 11/09/16 21:00 Nasal Cannula 2.0 11/09/16 20:06 97.7 74 18 120/54 94 11/09/16 20:00 82 11/09/16 16:30 72 VS - Last 72 Hours, by Label Date Time Temp Pulse Resp B/P Pulse Ox O2 Delivery O2 Flow Rate FiO2 11/12/16 16:14 98.5 78 19 138/73 96 11/12/16 12:16 80 11/12/16 11:53 98.5 69 19 113/62 95 11/12/16 08:14 86 11/12/16 08:10 Nasal Cannula 2.0 11/12/16 07:45 98.4 88 19 132/54 97 11/12/16 04:24 80 11/12/16 03:52 98.0 91 20 140/62 97 11/12/16 00:21 80 11/11/16 23:52 98.3 71 20 110/55 98 11/11/16 20:22 90 11/11/16 20:00 Nasal Cannula 2.0 11/11/16 16:00 84 11/11/16 15:54 98.4 109 19 133/60 96 11/11/16 14:32 85 18 11/11/16 14:30 88 11/11/16 14:00 90 11/11/16 13:30 89 11/11/16 13:00 88 11/11/16 12:30 85 11/11/16 12:00 88 11/11/16 12:00 74 11/11/16 11:39 98.5 82 19 131/64 98 11/11/16 11:30 86 18 11/11/16 11:30 83 11/11/16 08:20 Nasal Cannula 2.0 11/11/16 08:00 89 11/11/16 07:34 98.1 82 19 141/58 97 11/11/16 04:50 83 11/11/16 04:23 98.4 101 20 121/65 94 11/11/16 00:45 80 11/11/16 00:32 98.3 99 20 124/64 93 11/10/16 21:00 Nasal Cannula 2.0 11/10/16 20:42 83 11/10/16 20:00 98.2 107 20 121/60 95 11/10/16 17:20 95 1.0 11/10/16 16:30 84 11/10/16 15:39 98.6 84 16 125/59 90 11/10/16 14:00 98 11/10/16 11:37 98.4 85 18 112/53 91 11/10/16 08:30 91 11/10/16 08:13 98.6 98 18 139/61 92 11/10/16 04:00 87 11/10/16 00:17 97.9 97 20 110/51 93 11/10/16 00:00 89 11/09/16 21:00 Nasal Cannula 2.0 11/09/16 20:06 97.7 74 18 120/54 94 11/09/16 20:00 82 11/09/16 16:30 72 Vital Signs Date Time Temp Pulse Resp B/P Pulse Ox O2 Delivery O2 Flow Rate FiO2 11/12/16 16:14 98.5 78 19 138/73 96 11/12/16 08:10 Nasal Cannula 2.0 Intake and Output 11/11/16 11/11/16 11/12/16 15:00 23:00 07:00 Intake Total 500 ml 450 ml 250 ml Output Total 2000 ml 1500 ml Balance -1500 ml -1050 ml 250 ml Exam Constitutional: alert, distress, frail, obese, No oriented Psych: anxiety, confusion Respiratory: clear to auscultation, normal air movement Cardiovascular: nl pulses, regular rate and rhythm, No edema, No murmurs/extra sounds, No rub Gastrointestinal: bowel sounds, nl liver, spleen, non-tender, soft, No mass, No rebound or guarding Musculoskeletal: nl extremities to inspection Extremities: normal pulses, No clubbing, No cyanosis, No edema 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: HEADLIGHT ADJUSTER II-XII intact, nl mental status, nl speech, nl strength Additional Comments Bedside Glucose - 72 Hours Test 11/09/16 17:41 11/09/16 21:05 11/10/16 08:16 11/10/16 12:10 Bedside Glucose 133mg/dL (70-220) 144mg/dL (70-220) 85mg/dL (70-220) 89mg/dL (70-220) Test 11/10/16 17:22 11/10/16 21:42 11/11/16 08:19 11/11/16 12:23 Bedside Glucose 117mg/dL (70-220) 111mg/dL (70-220) 82mg/dL (70-220) 99mg/dL (70-220) Test 11/11/16 17:32 11/11/16 20:48 11/12/16 08:11 11/12/16 11:46 Bedside Glucose 101mg/dL (70-220) 117mg/dL (70-220) 71mg/dL (70-220) 73mg/dL (70-220) Results Result Diagram: 11/11/16 0644 11/11/16 0643 Results 24 hrs Laboratory Tests Test 11/11/16 17:32 11/11/16 20:48 11/12/16 08:11 11/12/16 11:46 Bedside Glucose 101 117 71 73 Medications Medications Current Medications Ondansetron HCl (Zofran Inj) 4 mg Q6H PRN IV NAUSEA AND/OR VOMITING; Start at 18:30 Acetaminophen (Tylenol Tab) 650 mg Q6H PRN PO PAIN LEVEL 1-3 OR FEVER Last administered on 11/09/16 00:55; Admin Dose 650 MG; Start 11/08/16 at 18:30 Docusate Sodium (Colace) 100 mg Q12H PRN PO CONSTIPATION; Start 11/08/16 at 18: 30 Diagnostic Test (Pha) (Accu-Chek) 1 ea 02 XX Last administered on 11/12/16 02: 03; Admin Dose 1 EA; Start 11/09/16 at 02:00 Miscellaneous Information 1 ea NOTE XX ; Start 11/08/16 at 19:30 Glucose (Glutose) 15 gm Q15M PRN PO DECREASED GLUCOSE; Start 11/08/16 at 19:30 Glucose (Glutose) 22.5 gm Q15M PRN PO DECREASED GLUCOSE; Start 11/08/16 at 19: 30 Dextrose (D50w Syringe) 25 ml Q15M PRN IV DECREASED GLUCOSE; Start 11/08/16 at 19:30 Dextrose (D50w Syringe) 50 ml Q15M PRN IV DECREASED GLUCOSE; Start 11/08/16 at 19:30 Glucagon (Glucagen) 1 mg Q15M PRN IM DECREASED GLUCOSE; Start 11/08/16 at 19:30 Glucose (Glutose) 15 gm Q15M PRN BUCCAL DECREASED GLUCOSE; Start 11/08/16 at 19 :30 Atorvastatin Calcium (Lipitor) 40 mg QHS PO Last administered on 11/11/16 20: 49; Admin Dose 40 MG; Start 11/09/16 at 21:00 Famotidine (Pepcid) 40 mg HS PO Last administered on 11/11/16 20:50; Admin Dose 40 MG; Start 11/09/16 at 21:00 Fenofibrate (Tricor) 48 mg QAM PO Last administered on 11/12/16 08:10; Admin Dose 48 MG; Start 11/10/16 at 09:00 Folic Acid (Folic Acid) 2 mg DAILY PO Last administered on 11/12/16 08:10; Admin Dose 2 MG; Start 11/10/16 at 09:00 Gabapentin (Neurontin) 100 mg TID PO Last administered on 11/12/16 13:36; Admin Dose 100 MG; Start 11/09/16 at 21:00 Nifedipine (Procardia Xl) 30 mg BID PO Last administered on 11/12/16 08:12; Admin Dose 30 MG; Start 11/09/16 at 13:30 Epoetin César (Epogen (Esrd)) 10,000 units MoWeFr@17 SC Last administered on 17:53; Admin Dose 10,000 UNITS; Start 11/09/16 at 17:00 Albuterol (Ventolin Hfa) 2 puff Q4H PRN INH WHEEZING AND SOB; Start 11/09/16 at 14:30 Celecoxib (Celebrex) 200 mg DAILY PO Last administered on 11/12/16 08:10; Admin Dose 200 MG; Start 11/10/16 at 09:00 Acetaminophen/ Hydrocodone Bitart ([place] (5/325)) 1 tab Q6H PRN PO pain Last administered on 11/10/16 06:15; Admin Dose 1 TAB; Start 11/09/16 at 14:30 Linagliptin (Tradjenta) 5 mg DAILY PO Last administered on 11/12/16 08:10; Admin Dose 5 MG; Start 11/10/16 at 09:00 Prednisone (Prednisone) 1 mg TID PO Last administered on 11/12/16 13:36; Admin Dose 1 MG; Start 11/09/16 at 21:00 Salmeterol Xinafoate/ Fluticasone (Advair 250/50 Diskus) 1 inh BID INH Last administered on 11/12/16 08:13; Admin Dose 1 INH; Start 11/09/16 at 21:00 Warfarin Sodium 4 mg 4 mg DAILY@17 PO Last administered on 11/11/16 17:33; Admin Dose 4 MG; Start 11/10/16 at 17:00 Ferric Sodium Gluconate Complex 125 mg/Sodium Chloride 110 ml @ 110 mls/hr Q24H IVPB Last administered on 11/12/16 11:45; Admin Dose 110 MLS/HR; Start at 11:00; Stop 11/14/16 at 11:59 Piperacillin Sod/ Tazobactam Sod (Zosyn 2.25gm/ 50ml (Pmx)) 50 ml @ 100 mls/hr Q8 IVPB Last administered on 11/12/16 13:36; Admin Dose 100 MLS/HR; Start at 14:00 Collagenase (Santyl) 1 applic DAILY TOP Last administered on 11/12/16 08:13; Admin Dose 1 APPLIC; Start 11/11/16 at 09:00 Collagenase (Santyl) 1 applic DAILY PRN TOP WOUND CARE; Start 11/10/16 at 15:30 Miscellaneous Information (*Rx Drug Level Order Reminder*) RANDOM VANCOMYCIN LEVEL 7... ONCE ONCE XX ; Start 11/13/16 at 05:00; Stop 11/13/16 at 05:01 Metoprolol Tartrate (Lopressor) 25 mg BID PO ; Start 11/12/16 at 21:00 Lorazepam (Ativan) 0.5 mg Q6H PRN IV AGITATION/ANXIETY Last administered on t 16:14; Admin Dose 0.5 MG; Start 11/12/16 at 16:00 SOBEIDA ENRIQUEZ MD Nov 12, 2016 16:27
[2016-11-12] MEDS: WARFARIN 2 MG TAB PO SCH (17:16)
--- NOTE | 2016-11-12 19:33 | CONS ---
Date/Time of Note Date/Time of Note DATE: 11/12/16 TIME: 19:24 Assessment/Plan Assessment/Plan Chief Complaint/Hosp Course assessment/impression - E. coli bacteremia (11/10/2016) - bacillus spp. blood culture from 11/08/2016, in two sets. Contaminant vs. pathogen - possible suppurative (septic) thrombophlebitis of R internal jugular vein - pain in R lateral neck and RUE x5 weeks, probably due to septic thrombophlebitis of R internal jugular vein - possible infection of skin ulcer of posterior scalp - cough, possible rhinitis prior to admission - breast mass seen on CT, evaluated by Dr. Nickerson - ESRD via AVF in RUE - displaced Fx of C2 spine, on neck collar - h/o AVR at [facility] for ?aortic valve stenosis. Transthoracic echo was negative for vegetation on 11/11/2016 - DM - COPD - sacrcoidosis - CAD, CHF - h/o diverticulosis - h/o hemorrhoids - h/o colonic AVM recommendations - pending results: wound culture of posterior scalp, repeat two sets of blood cultures x2 from 11/10/2016. Will contact the micro lab to speciate her bacillus species - Pt has not had BM to test for C diff - I recommend and have ordered: CT head, abd/pel (to look for the source of E. coli and bacillus in blood) - I recommend de-escalating IV vancomycin and pip/tazo to ceftriaxone ( sensitivity to cefotaxime predicts sensitivity to ceftriaxone) management d/w Pt's RN Problems: Consultation Date/Type/Reason Admit Date/Time Nov 10, 2016 at 15:14 Initial Consult Date 11/10/16 Type of Consultation: ID Referring Provider: TOMER GARCIA MD 24 HR Interval Summary Free Text/Dictation Pt took zolpidem, and then became agitated last night. Today, she became stable , became agitated again and was given lorazepam. Now lethargic. diarrhea x6 per Pt's RN Subjective hx not possible: other (very lethargic) Detailed Summary Respiratory: No shortness of breath Cardiovascular: No chest pain Gastrointestinal: diarrhea, No pain Genitourinary: other (anuric) Musculoskeletal: neck pain, other (RUE pain) Skin: no complaints Exam/Review of Systems Vital Signs Vitals Vital Signs Date Time Temp Pulse Resp B/P Pulse Ox O2 Delivery O2 Flow Rate FiO2 11/12/16 18:11 97 2.0 11/12/16 16:19 94 11/12/16 16:14 98.5 19 138/73 11/12/16 08:10 Nasal Cannula Intake and Output 11/11/16 11/11/16 11/12/16 15:00 23:00 07:00 Intake Total 500 ml 450 ml 250 ml Output Total 2000 ml 1500 ml Balance -1500 ml -1050 ml 250 ml Exam Constitutional: frail Psych: confusion Head: atraumatic, normocephalic Eyes: nl conjunctiva, nl sclera, other (R ptosis) ENMT: nl external ears & nose Neck: other (+brace) Respiratory: crackles/rales Cardiovascular: nl pulses, regular rate and rhythm Gastrointestinal: non-tender, soft Musculoskeletal: other (R deltoid is non tender to palpation today) Extremities: edema (RUE), normal pulses 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: confused, lethargic Skin: nl turgor Results Result Diagram: 11/11/16 0644 11/11/16 0643 Results 24 hrs Laboratory Tests Test 11/11/16 20:48 11/12/16 08:11 11/12/16 11:46 11/12/16 17:09 Bedside Glucose 117 71 73 107 Medications Medications Current Medications Ondansetron HCl (Zofran Inj) 4 mg Q6H PRN IV NAUSEA AND/OR VOMITING; Start at 18:30 Acetaminophen (Tylenol Tab) 650 mg Q6H PRN PO PAIN LEVEL 1-3 OR FEVER Last administered on 11/09/16 00:55; Admin Dose 650 MG; Start 11/08/16 at 18:30 Docusate Sodium (Colace) 100 mg Q12H PRN PO CONSTIPATION; Start 11/08/16 at 18: 30 Diagnostic Test (Pha) (Accu-Chek) 1 ea 02 XX Last administered on 11/12/16 02: 03; Admin Dose 1 EA; Start 11/09/16 at 02:00 Miscellaneous Information 1 ea NOTE XX ; Start 11/08/16 at 19:30 Glucose (Glutose) 15 gm Q15M PRN PO DECREASED GLUCOSE; Start 11/08/16 at 19:30 Glucose (Glutose) 22.5 gm Q15M PRN PO DECREASED GLUCOSE; Start 11/08/16 at 19: 30 Dextrose (D50w Syringe) 25 ml Q15M PRN IV DECREASED GLUCOSE; Start 11/08/16 at 19:30 Dextrose (D50w Syringe) 50 ml Q15M PRN IV DECREASED GLUCOSE; Start 11/08/16 at 19:30 Glucagon (Glucagen) 1 mg Q15M PRN IM DECREASED GLUCOSE; Start 11/08/16 at 19:30 Glucose (Glutose) 15 gm Q15M PRN BUCCAL DECREASED GLUCOSE; Start 11/08/16 at 19 :30 Atorvastatin Calcium (Lipitor) 40 mg QHS PO Last administered on 11/11/16 20: 49; Admin Dose 40 MG; Start 11/09/16 at 21:00 Famotidine (Pepcid) 40 mg HS PO Last administered on 11/11/16 20:50; Admin Dose 40 MG; Start 11/09/16 at 21:00 Fenofibrate (Tricor) 48 mg QAM PO Last administered on 11/12/16 08:10; Admin Dose 48 MG; Start 11/10/16 at 09:00 Folic Acid (Folic Acid) 2 mg DAILY PO Last administered on 11/12/16 08:10; Admin Dose 2 MG; Start 11/10/16 at 09:00 Gabapentin (Neurontin) 100 mg TID PO Last administered on 11/12/16 13:36; Admin Dose 100 MG; Start 11/09/16 at 21:00 Nifedipine (Procardia Xl) 30 mg BID PO Last administered on 11/12/16 08:12; Admin Dose 30 MG; Start 11/09/16 at 13:30 Epoetin César (Epogen (Esrd)) 10,000 units MoWeFr@17 SC Last administered on 17:53; Admin Dose 10,000 UNITS; Start 11/09/16 at 17:00 Albuterol (Ventolin Hfa) 2 puff Q4H PRN INH WHEEZING AND SOB; Start 11/09/16 at 14:30 Celecoxib (Celebrex) 200 mg DAILY PO Last administered on 11/12/16 08:10; Admin Dose 200 MG; Start 11/10/16 at 09:00 Acetaminophen/ Hydrocodone Bitart ([place] (5/325)) 1 tab Q6H PRN PO pain Last administered on 11/10/16 06:15; Admin Dose 1 TAB; Start 11/09/16 at 14:30 Linagliptin (Tradjenta) 5 mg DAILY PO Last administered on 11/12/16 08:10; Admin Dose 5 MG; Start 11/10/16 at 09:00 Prednisone (Prednisone) 1 mg TID PO Last administered on 11/12/16 13:36; Admin Dose 1 MG; Start 11/09/16 at 21:00 Salmeterol Xinafoate/ Fluticasone (Advair 250/50 Diskus) 1 inh BID INH Last administered on 11/12/16 08:13; Admin Dose 1 INH; Start 11/09/16 at 21:00 Warfarin Sodium 4 mg 4 mg DAILY@17 PO Last administered on 11/12/16 17:16; Admin Dose 4 MG; Start 11/10/16 at 17:00 Ferric Sodium Gluconate Complex 125 mg/Sodium Chloride 110 ml @ 110 mls/hr Q24H IVPB Last administered on 11/12/16 11:45; Admin Dose 110 MLS/HR; Start at 11:00; Stop 11/14/16 at 11:59 Piperacillin Sod/ Tazobactam Sod (Zosyn 2.25gm/ 50ml (Pmx)) 50 ml @ 100 mls/hr Q8 IVPB Last administered on 11/12/16 13:36; Admin Dose 100 MLS/HR; Start at 14:00 Collagenase (Santyl) 1 applic DAILY TOP Last administered on 11/12/16 08:13; Admin Dose 1 APPLIC; Start 11/11/16 at 09:00 Collagenase (Santyl) 1 applic DAILY PRN TOP WOUND CARE; Start 11/10/16 at 15:30 Miscellaneous Information (*Rx Drug Level Order Reminder*) RANDOM VANCOMYCIN LEVEL 7... ONCE ONCE XX ; Start 11/13/16 at 05:00; Stop 11/13/16 at 05:01 Metoprolol Tartrate (Lopressor) 25 mg BID PO ; Start 11/12/16 at 21:00 Lorazepam (Ativan) 0.5 mg Q6H PRN IV AGITATION/ANXIETY Last administered on 16:14; Admin Dose 0.5 MG; Start 11/12/16 at 16:00 CAROL SETH M.D. Nov 12, 2016 19:33
[2016-11-12] MEDS: ATORVASTATIN 40 MG TAB PO SCH (20:39)
[2016-11-12] MEDS: FAMOTIDINE 20 MG TAB PO SCH (20:40)
[2016-11-12] MEDS: CEFTRIAXONE 2 GM/50 ML (PMX) 50 ML IVPB SCH (21:16)
--- NOTE | 2016-11-12 23:09 | RADRPT ---
PROCEDURE: CT Head without. CLINICAL INDICATION: Mental status change, possible CVA. TECHNIQUE: The study was performed utilizing a multi-slice, multidetector CT scanner. Direct spira l 1 mm axial sections were obtained through the head without the use of intravenous contrast materia l. 1 or more of the following dose reduction techniques were utilized: Automated exposure control, adjustment of the mA and/or kV according to patient's size, iterative reconstruction technique. Co kei and sagittal reformations were obtained. The images were reviewed on a PACS workstation. RADIATION DOSE: CTDIvol: 44.9 mGyDLP: 720 point mGy-cm COMPARISON: 09/07/2016 FINDINGS: There is motion artifact in the skull base/inferior cranial vault of the superior cranial vault, sli ghtly limiting evaluation in these regions. There is no intracranial hemorrhage, extra-axial fluid collection, mass lesion, midline shift or hydrocephalus. There is stable mild prominence of the cer ebral sulci, lateral and third ventricles. There is stable mild periventricular and subcortical whi te matter hypodensity. There is stable mild to moderate arteriosclerotic calcification of the bre ellar internal carotid arteries. The mark[place]-white matter differentiation is preserved. The basal cis terns are patent. There is stable partial empty sella, normal variant. The midline structures are intact. There is pneumatization of the bilateral petrous apices without evidence of inflammatory ch anges, normal variant. The orbits, calvarium and extracranial soft tissues are normal in appearance. The visualized paranasal sinuses, mastoid air cells and middle ear cavities are normally aerated. IMPRESSION: 1. No acute intracranial abnormality. No intracranial hemorrhage, extra-axial fluid collection, ma ss lesion or hydrocephalous. 2. Stable mild peripheral and central cerebral volume loss. 3. Stable mild periventricular and subcortical white matter hypodensity, likely related to chronic microangiopathic changes. 4. No CT evidence of infarct at this time. If clinical concern for infarct, MRI is recommended for further evaluation. RPTAT: HGAS .Wilberto Sutton MD, MD Date Time Electronically viewed and signed by .Wilberto Sutton MD, on 11/12/2016 23:09 .SMaura
--- NOTE | 2016-11-12 23:19 | RADRPT ---
PROCEDURE: CT Abdomen and pelvis without contrast. CLINICAL INDICATION: Abdominal pain. TECHNIQUE: CT scan of the abdomen and pelvis was performed on a multi-detector high-resolution CT scanner. Contiguous axial images were obtained from the lung bases to the ischial tuberosities wit hout intravenous contrast. Coronal and sagittal reformatted images were also obtained. Images were reviewed on the PACS workstation. One or more of the following dose reduction techniques were used: - Automated exposure control. - Adjustment of the mA and/or kV according to patient size. - Use of iterative reconstruction technique. Exam CTD/vol = 21.58 mGy. Total exam DLP = 1119.45 mGy-cm. COMPARISON: 09/07/2016. FINDINGS: Evaluation of the lung bases demonstrates mild bibasilar atelectasis and small pleural effusions. T he heart is moderately enlarged with an ascending aortic stent present. Abdomen: The liver is normal in size. There is no focal mass or dilatation of the biliary tree. T he gallbladder is not distended. The spleen, pancreas and bilateral adrenal glands are within darren l limits. Bilateral kidneys are mildly atrophic with innumerable cysts measuring up to 4.0 cm. The re are renal cortical calcifications bilaterally. There is no radiopaque ureteral calculus identifi ed. There is no hydronephrosis or hydroureter. There is no retroperitoneal adenopathy. The abdomi nal aorta is of normal caliber with extensive atherosclerotic calcifications. There is no bowel obstruction or free air. A normal appendix is identified. There is colonic diver ticulosis without evidence of diverticulitis. There is no ascites. Pelvis: The bladder is unremarkable. The uterus is absent. There is a small right inguinal hernia containing fat. There is no significant pelvic adenopathy or free fluid. Evaluation of the osseous structures demonstrates no suspicious lytic or blastic lesion. There are d egenerative changes of the spine. IMPRESSION: Diffuse colonic diverticulosis without evidence of diverticulitis. Bilateral mildly atrophic and multicystic kidneys. Mild bibasilar atelectasis and small pleural effusions. Moderate cardiomegaly. Vascular calcifications reflective of atherosclerosis. Small right inguinal hernia containing fat. Degenerative changes of the spine. Otherwise no acute abnormality identified within the abdomen and pelvis. .Gaston Kimbrough MD, MD Date Time Electronically viewed and signed by .Gaston Kimbrough MD, MD on 11/12/2016 23:19 .T/
[2016-11-13] VITALS (14 sets, daily range): BP systolic 110–133; BP diastolic 57–88; PULSE 75–88; RESP 17–19
[2016-11-13] MEDS: ACCU-CHEK XX SCH (02:01)
[2016-11-13 07:38] LABS: BASOPHIL # 0.1 10^3/ul (0.0-0.1); BASOPHILS % 0.6 % (0.0-2.0); EOSINOPHILS # 0.1 10^3/ul (0.0-0.5); EOSINOPHILS % 1.4 % (0.0-7.0); HEMATOCRIT 32.7 % (37.0-47.0); HEMOGLOBIN 10.6 g/dl (12.0-16.0); LYMPHOCYTES # 2.4 10^3/ul (0.8-2.9); LYMPHOCYTES % 25.8 % (15.0-51.0); MEAN CORPUSCULAR HEMOGLOBIN 29.9 pg (29.0-33.0); MEAN CORPUSCULAR HGB CONC 32.4 g/dl (32.0-37.0); MEAN CORPUSCULAR VOLUME 92.1 fl (82.0-101.0); MEAN PLATELET VOLUME 11.6 fl (7.4-10.4); MONOCYTE # 0.7 10^3/ul (0.3-0.9); MONOCYTES % 7.3 % (0.0-11.0); NEUTROPHILS % 63.9 % (39.0-77.0); NUCLEATED RED BLOOD CELLS% 0.3 /100WBC (0.0-0.0); PLATELET COUNT 179 10^3/UL (140-415); RED BLOOD COUNT 3.55 10^6/ul (4.20-5.40); RED CELL DISTRIBUTION WIDTH 15.6 % (11.5-14.5); WHITE BLOOD COUNT 9.4 10^3/ul (4.8-10.8)
[2016-11-13 07:57] LABS: INR 4.61; PROTIME 44.4 Sec (12.2-14.2); PT RATIO 3.5
[2016-11-13] MEDS: INSULIN ASPART [NOVOLOG] 3 ML PEN SC SCH ×4 (08:00→21:00)
[2016-11-13 08:09] LABS: ALBUMIN 3.5 g/dl (3.3-4.9); CALCIUM 9.2 mg/dl (8.4-10.2); CREATININE 8.47 mg/dl (0.44-1.00); POTASSIUM 4.9 mmol/L (3.5-5.1)
[2016-11-13] MEDS: COLLAGENASE 30 GM TUBE TOP SCH (08:19)
[2016-11-13] MEDS: SALMETEROL/FLUTICASONE 250/50 INHA INH SCH ×2 (08:19→22:28)
[2016-11-13] MEDS: SEVELAMER CARBONATE 0.8 GM PKT PO SCH ×3 (08:19→17:23)
[2016-11-13] MEDS: LINAGLIPTIN 5 MG TABLET PO SCH (08:20)
[2016-11-13] MEDS: predniSONE 1 MG TAB PO SCH ×3 (08:20→22:18)
[2016-11-13] MEDS: CELECOXIB 200 MG CAP PO SCH (08:20)
[2016-11-13] MEDS: NIFEdipine (XL) 30 MG TAB PO SCH ×2 (08:20→22:25)
[2016-11-13] MEDS: GABAPENTIN 100 MG CAP PO SCH ×3 (08:20→22:16)
[2016-11-13] MEDS: FOLIC ACID 1 MG TAB PO SCH (08:20)
[2016-11-13] MEDS: FENOFIBRATE 48 MG TAB PO SCH (08:20)
[2016-11-13] MEDS: METOPROLOL 25 MG TAB PO SCH ×2 (08:21→22:21)
--- NOTE | 2016-11-13 08:48 | CONS ---
Date/Time of Note Date/Time of Note DATE: 11/13/16 TIME: 08:43 Assessment/Plan Assessment/Plan Problems: (1) Internal jugular (IJ) vein thromboembolism, chronic Status: Chronic Comment: chronic, old, asx Qualifiers: Laterality: right Qualified Code: I82.C21 - Internal jugular (IJ) vein thromboembolism, chronic, right (2) ESRD (end stage renal disease) on dialysis Status: Chronic Comment: for HD in AM Mon (3) Aortic stenosis Status: Chronic Comment: asx... s/p TAVR in Apr... s/p unremarkable Echo aside from Pulm Htn (4) Atrial fibrillation Status: Chronic Comment: rate controlled and asx... on coumadin (5) Fever Status: Resolved Comment: f/u cxs are (-)... no T... nl WBC... f/u CT (-)... resolved Consultation Date/Type/Reason Admit Date/Time Nov 10, 2016 at 15:14 Initial Consult Date 11/09/16 Type of Consultation: neph Referring Provider: TOMER GARCIA MD 24 HR Interval Summary Free Text/Dictation remains clinically stable and at baseline: no T... no chills... anxious to get OOB and walk Exam/Review of Systems Vital Signs Vitals Vital Signs Date Time Temp Pulse Resp B/P Pulse Ox O2 Delivery O2 Flow Rate FiO2 11/13/16 06:00 88 126/88 11/13/16 05:24 2.0 11/13/16 03:29 98.0 19 95 11/12/16 20:00 Nasal Cannula Intake and Output 11/12/16 11/12/16 11/13/16 15:00 23:00 07:00 Intake Total 100 ml 350 ml 180 ml Balance 100 ml 350 ml 180 ml Exam Constitutional: alert, oriented Psych: no complaints Neck: other (in hard collar) Respiratory: clear to auscultation Cardiovascular: irregular rhythm Gastrointestinal: nl liver, spleen, soft Extremities: normal pulses (fxn AVF in RUE) Results Result Diagram: 11/13/16 0710 11/13/16 0710 Results 24 hrs Laboratory Tests Test 11/12/16 11:46 11/12/16 17:09 11/12/16 20:38 11/13/16 07:10 Bedside Glucose 73 107 106 White Blood Count 9.4 # Red Blood Count 3.55 L Hemoglobin 10.6 L Hematocrit 32.7 L Mean Corpuscular Volume 92.1 Mean Corpuscular Hemoglobin 29.9 Mean Corpuscular Hemoglobin Concent 32.4 Red Cell Distribution Width 15.6 H Platelet Count 179 # Mean Platelet Volume 11.6 H Neutrophils % 63.9 Lymphocytes % 25.8 Monocytes % 7.3 Eosinophils % 1.4 Basophils % 0.6 Nucleated Red Blood Cells % 0.3 H Neutrophils # 6.0 Lymphocytes # 2.4 Monocytes # 0.7 Eosinophils # 0.1 Basophils # 0.1 Nucleated Red Blood Cells # 0.0 Prothrombin Time 44.4 #H Prothrombin Time Ratio 3.5 INR International Normalized Ratio 4.61 Sodium Level 144 Potassium Level 4.9 Chloride Level 101 Carbon Dioxide Level 24 Anion Gap 24 H Blood Urea Nitrogen 44 H Creatinine 8.47 H Glucose Level 63 L Calcium Level 9.2 Total Bilirubin 0.0 L Direct Bilirubin 0.00 Indirect Bilirubin 0.0 Aspartate Amino Transf (AST/SGOT) 17 Alanine Aminotransferase (ALT/SGPT) 22 Alkaline Phosphatase 47 Total Protein 7.0 Albumin 3.5 Globulin 3.50 H Albumin/Globulin Ratio 1.00 Test 11/13/16 08:17 Bedside Glucose 72 Medications Medications Current Medications Ondansetron HCl (Zofran Inj) 4 mg Q6H PRN IV NAUSEA AND/OR VOMITING; Start at 18:30 Acetaminophen (Tylenol Tab) 650 mg Q6H PRN PO PAIN LEVEL 1-3 OR FEVER Last administered on 11/09/16 00:55; Admin Dose 650 MG; Start 11/08/16 at 18:30 Docusate Sodium (Colace) 100 mg Q12H PRN PO CONSTIPATION; Start 11/08/16 at 18: 30 Diagnostic Test (Pha) (Accu-Chek) 1 ea 02 XX Last administered on 11/13/16 02: 01; Admin Dose 1 EA; Start 11/09/16 at 02:00 Miscellaneous Information 1 ea NOTE XX ; Start 11/08/16 at 19:30 Glucose (Glutose) 15 gm Q15M PRN PO DECREASED GLUCOSE; Start 11/08/16 at 19:30 Glucose (Glutose) 22.5 gm Q15M PRN PO DECREASED GLUCOSE; Start 11/08/16 at 19: 30 Dextrose (D50w Syringe) 25 ml Q15M PRN IV DECREASED GLUCOSE; Start 11/08/16 at 19:30 Dextrose (D50w Syringe) 50 ml Q15M PRN IV DECREASED GLUCOSE; Start 11/08/16 at 19:30 Glucagon (Glucagen) 1 mg Q15M PRN IM DECREASED GLUCOSE; Start 11/08/16 at 19:30 Glucose (Glutose) 15 gm Q15M PRN BUCCAL DECREASED GLUCOSE; Start 11/08/16 at 19 :30 Atorvastatin Calcium (Lipitor) 40 mg QHS PO Last administered on 11/12/16 20: 39; Admin Dose 40 MG; Start 11/09/16 at 21:00 Famotidine (Pepcid) 40 mg HS PO Last administered on 11/12/16 20:40; Admin Dose 40 MG; Start 11/09/16 at 21:00 Fenofibrate (Tricor) 48 mg QAM PO Last administered on 11/13/16 08:20; Admin Dose 48 MG; Start 11/10/16 at 09:00 Folic Acid (Folic Acid) 2 mg DAILY PO Last administered on 11/13/16 08:20; Admin Dose 2 MG; Start 11/10/16 at 09:00 Gabapentin (Neurontin) 100 mg TID PO Last administered on 11/13/16 08:20; Admin Dose 100 MG; Start 11/09/16 at 21:00 Nifedipine (Procardia Xl) 30 mg BID PO Last administered on 11/13/16 08:20; Admin Dose 30 MG; Start 11/09/16 at 13:30 Epoetin César (Epogen (Esrd)) 10,000 units MoWeFr@17 SC Last administered on 17:53; Admin Dose 10,000 UNITS; Start 11/09/16 at 17:00 Albuterol (Ventolin Hfa) 2 puff Q4H PRN INH WHEEZING AND SOB; Start 11/09/16 at 14:30 Celecoxib (Celebrex) 200 mg DAILY PO Last administered on 11/13/16 08:20; Admin Dose 200 MG; Start 11/10/16 at 09:00 Acetaminophen/ Hydrocodone Bitart ([place] (5/325)) 1 tab Q6H PRN PO pain Last administered on 11/10/16 06:15; Admin Dose 1 TAB; Start 11/09/16 at 14:30 Linagliptin (Tradjenta) 5 mg DAILY PO Last administered on 11/13/16 08:20; Admin Dose 5 MG; Start 11/10/16 at 09:00 Prednisone (Prednisone) 1 mg TID PO Last administered on 11/13/16 08:20; Admin Dose 1 MG; Start 11/09/16 at 21:00 Salmeterol Xinafoate/ Fluticasone (Advair 250/50 Diskus) 1 inh BID INH Last administered on 11/13/16 08:19; Admin Dose 1 INH; Start 11/09/16 at 21:00 Warfarin Sodium 4 mg 4 mg DAILY@17 PO Last administered on 11/12/16 17:16; Admin Dose 4 MG; Start 11/10/16 at 17:00; Status Future Hold Ferric Sodium Gluconate Complex/ Sodium Chloride (Ferrlecit/NS) 110 ml @ 110 mls/hr Q24H IVPB Last administered on 11/12/16 11:45; Admin Dose 110 MLS/HR; Start 11/10/16 at 11:00; Stop 11/14/16 at 11:59 Collagenase (Santyl) 1 applic DAILY TOP Last administered on 11/13/16 08:19; Admin Dose 1 APPLIC; Start 11/11/16 at 09:00 Collagenase (Santyl) 1 applic DAILY PRN TOP WOUND CARE; Start 11/10/16 at 15:30 Metoprolol Tartrate (Lopressor) 25 mg BID PO Last administered on 11/13/16 08: 21; Admin Dose 25 MG; Start 11/12/16 at 21:00 Lorazepam 0.5 mg 0.5 mg Q6H PRN IV AGITATION/ANXIETY Last administered on 16:14; Admin Dose 0.5 MG; Start 11/12/16 at 16:00 Ceftriaxone Sodium (Rocephin) 50 ml @ 100 mls/hr Q24H IVPB Last administered on 11/12/16 21:16; Admin Dose 100 MLS/HR; Start 11/12/16 at 21:00 NICO HAY MD Nov 13, 2016 08:48
--- NOTE | 2016-11-13 10:59 | PN ---
Date/Time of Note Date/Time of Note DATE: 11/13/16 TIME: 10:37 Assessment/Plan VTE Prophylaxis VTE Prophylaxis Intervention: other (warfarin) Lines/Catheters IV [facility] Saline Lock Assessment/Plan Problems: (1) Delirium Status: Acute Comment: Hesitate to say resolved. Will say inactive for now. Pt. awake and alert. Does not remember period of delirium from yesterday. Etiology sepsis vs. CO2 retention; see below. (2) Bacteremia Status: Acute Comment: Cont. IV abx. ID changed zosyn to ceftriaxone. Defer to ID for management of this. Source still unknown. As other sources are ruled out, becomes increasingly likely that source is R IJ thrombus. (3) Internal jugular (IJ) vein thromboembolism, chronic Status: Chronic Comment: Possibly source of infection. Pt. on warfarin and now supratherapeutic. Warfarin being held. No other intervention per heme. Qualifiers: Laterality: right Qualified Code: I82.C21 - Internal jugular (IJ) vein thromboembolism, chronic, right (4) Diarrhea Status: Acute Comment: Checking c.diff. (5) Dens fracture Status: Chronic Comment: Immobilize per neurosurgery. Qualifiers: Encounter type: subsequent encounter Fracture healing: with delayed healing Qualified Code: S12.100G - Dens fracture, with delayed healing, subsequent encounter (6) COPD (chronic obstructive pulmonary disease) Status: Chronic Comment: Continue steroids and inhalers Qualifiers: COPD type: unspecified COPD Qualified Code: J44.9 - Chronic obstructive pulmonary disease, unspecified COPD type (7) Sarcoidosis Status: Chronic Comment: Cont. steroids (8) Obstructive sleep apnea Status: Chronic Comment: Unable to fit CPAP mask w/ her c-collar (9) Aortic stenosis Status: Chronic Comment: s/p TAVR. Cardiology monitoring. No vegetations (10) Atherosclerotic heart disease of [place] coronary artery without angina pectoris Status: Chronic Comment: Cardiology following (11) Left bundle branch block (LBBB) Status: Chronic Comment: Cardiology following (12) Diastolic dysfunction Status: Chronic Comment: Cardiology following (13) Pulmonary hypertension Status: Chronic Comment: Per ECHO. Cardiology following (14) Atrial fibrillation Status: Chronic Comment: In A-fib now by exam. Rate controlled and anticoagulated. Supratherapeutic and warfarin on hold. 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 (16) ESRD (end stage renal disease) on dialysis Status: Chronic Comment: Cont. HD by nephrology (17) Type 2 diabetes mellitus with diabetic chronic kidney disease Status: Chronic Comment: Good control w/ linagliptin (18) Breast mass in female Status: Acute Comment: No FNA at this time per onc. Subjective 24 Hr Interval Summary Constitutional: improved (wants to go home), no complaints, No disoriented Respiratory: no complaints Cardiovascular: no complaints Gastrointestinal: no complaints Genitourinary: no complaints Musculoskeletal: no complaints Skin: skin lesions (c/o decubiti and scalp lac but being treated by nursing staff) Neurologic: no complaints Exam/Review of Systems Vital Signs Vitals VS - Last 72 Hours, by Label Date Time Temp Pulse Resp B/P Pulse Ox O2 Delivery O2 Flow Rate FiO2 11/13/16 08:51 86 11/13/16 08:45 98.0 83 18 130/59 94 11/13/16 06:00 88 126/88 11/13/16 05:24 2.0 11/13/16 04:17 84 11/13/16 03:29 98.0 84 19 133/83 95 11/13/16 02:00 82 130/82 11/13/16 00:24 75 11/12/16 23:35 98.0 88 19 129/96 11/12/16 22:00 88 128/90 11/12/16 20:19 94 11/12/16 20:00 Nasal Cannula 2.0 11/12/16 19:48 98.1 90 20 136/63 99 11/12/16 19:40 84 99 2.0 11/12/16 19:40 2.0 11/12/16 18:11 97 2.0 11/12/16 16:19 94 11/12/16 16:14 98.5 78 19 138/73 96 11/12/16 12:16 80 11/12/16 11:53 98.5 69 19 113/62 95 11/12/16 08:14 86 11/12/16 08:10 Nasal Cannula 2.0 11/12/16 07:45 98.4 88 19 132/54 97 11/12/16 04:24 80 11/12/16 03:52 98.0 91 20 140/62 97 11/12/16 00:21 80 11/11/16 23:52 98.3 71 20 110/55 98 11/11/16 20:22 90 11/11/16 20:00 Nasal Cannula 2.0 11/11/16 16:00 84 11/11/16 15:54 98.4 109 19 133/60 96 11/11/16 14:32 85 18 11/11/16 14:30 88 11/11/16 14:00 90 11/11/16 13:30 89 11/11/16 13:00 88 11/11/16 12:30 85 11/11/16 12:00 88 11/11/16 12:00 74 11/11/16 11:39 98.5 82 19 131/64 98 11/11/16 11:30 86 18 11/11/16 11:30 83 11/11/16 08:20 Nasal Cannula 2.0 11/11/16 08:00 89 11/11/16 07:34 98.1 82 19 141/58 97 11/11/16 04:50 83 11/11/16 04:23 98.4 101 20 121/65 94 11/11/16 00:45 80 11/11/16 00:32 98.3 99 20 124/64 93 11/10/16 21:00 Nasal Cannula 2.0 11/10/16 20:42 83 11/10/16 20:00 98.2 107 20 121/60 95 11/10/16 17:20 95 1.0 11/10/16 16:30 84 11/10/16 15:39 98.6 84 16 125/59 90 11/10/16 14:00 98 11/10/16 11:37 98.4 85 18 112/53 91 Vital Signs Date Time Temp Pulse Resp B/P Pulse Ox O2 Delivery O2 Flow Rate FiO2 11/13/16 08:51 86 11/13/16 08:45 98.0 18 130/59 94 11/13/16 05:24 2.0 11/12/16 20:00 Nasal Cannula Intake and Output 11/12/16 11/12/16 11/13/16 15:00 23:00 07:00 Intake Total 100 ml 350 ml 180 ml Balance 100 ml 350 ml 180 ml Exam Constitutional: alert, obese, oriented Psych: nl mood/affect, no complaints, No anxiety Respiratory: clear to auscultation, normal air movement, No crackles/rales, No labored breathing, No respirations Cardiovascular: irregular rhythm, nl pulses, No edema, No murmurs/extra sounds, No regular rate and rhythm, No rub Gastrointestinal: bowel sounds, nl liver, spleen, non-tender, soft, No mass, No rebound or guarding Musculoskeletal: nl extremities to inspection Extremities: normal pulses, No clubbing, No cyanosis, No edema 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: FACING SLITTER II-XII intact, nl mental status, nl speech, nl strength, No confused (today AMS seems resolved. Pt. reports does not remember yesterday) Additional Comments Bedside Glucose - 72 Hours Test 11/10/16 12:10 11/10/16 17:22 11/10/16 21:42 11/11/16 08:19 Bedside Glucose 89mg/dL (70-220) 117mg/dL (70-220) 111mg/dL (70-220) 82mg/dL (70-220) Test 11/11/16 12:23 11/11/16 17:32 11/11/16 20:48 11/12/16 08:11 Bedside Glucose 99mg/dL (70-220) 101mg/dL (70-220) 117mg/dL (70-220) 71mg/dL (70-220) Test 11/12/16 11:46 11/12/16 17:09 11/12/16 20:38 11/13/16 08:17 Bedside Glucose 73mg/dL (70-220) 107mg/dL (70-220) 106mg/dL (70-220) 72mg/dL (70-220) Results Result Diagram: 11/13/16 0710 11/13/16 0710 Results 24 hrs Laboratory Tests Test 11/12/16 11:46 11/12/16 17:09 11/12/16 20:38 11/13/16 07:10 Bedside Glucose 73 107 106 White Blood Count 9.4 # Red Blood Count 3.55 L Hemoglobin 10.6 L Hematocrit 32.7 L Mean Corpuscular Volume 92.1 Mean Corpuscular Hemoglobin 29.9 Mean Corpuscular Hemoglobin Concent 32.4 Red Cell Distribution Width 15.6 H Platelet Count 179 # Mean Platelet Volume 11.6 H Neutrophils % 63.9 Lymphocytes % 25.8 Monocytes % 7.3 Eosinophils % 1.4 Basophils % 0.6 Nucleated Red Blood Cells % 0.3 H Neutrophils # 6.0 Lymphocytes # 2.4 Monocytes # 0.7 Eosinophils # 0.1 Basophils # 0.1 Nucleated Red Blood Cells # 0.0 Prothrombin Time 44.4 #H Prothrombin Time Ratio 3.5 INR International Normalized Ratio 4.61 Sodium Level 144 Potassium Level 4.9 Chloride Level 101 Carbon Dioxide Level 24 Anion Gap 24 H Blood Urea Nitrogen 44 H Creatinine 8.47 H Glucose Level 63 L Calcium Level 9.2 Total Bilirubin 0.0 L Direct Bilirubin 0.00 Indirect Bilirubin 0.0 Aspartate Amino Transf (AST/SGOT) 17 Alanine Aminotransferase (ALT/SGPT) 22 Alkaline Phosphatase 47 Total Protein 7.0 Albumin 3.5 Globulin 3.50 H Albumin/Globulin Ratio 1.00 Test 11/13/16 08:17 Bedside Glucose 72 Medications Medications Current Medications Ondansetron HCl (Zofran Inj) 4 mg Q6H PRN IV NAUSEA AND/OR VOMITING; Start at 18:30 Acetaminophen (Tylenol Tab) 650 mg Q6H PRN PO PAIN LEVEL 1-3 OR FEVER Last administered on 11/09/16 00:55; Admin Dose 650 MG; Start 11/08/16 at 18:30 Docusate Sodium (Colace) 100 mg Q12H PRN PO CONSTIPATION; Start 11/08/16 at 18: 30 Diagnostic Test (Pha) (Accu-Chek) 1 ea 02 XX Last administered on 11/13/16 02: 01; Admin Dose 1 EA; Start 11/09/16 at 02:00 Miscellaneous Information 1 ea NOTE XX ; Start 11/08/16 at 19:30 Glucose (Glutose) 15 gm Q15M PRN PO DECREASED GLUCOSE; Start 11/08/16 at 19:30 Glucose (Glutose) 22.5 gm Q15M PRN PO DECREASED GLUCOSE; Start 11/08/16 at 19: 30 Dextrose (D50w Syringe) 25 ml Q15M PRN IV DECREASED GLUCOSE; Start 11/08/16 at 19:30 Dextrose (D50w Syringe) 50 ml Q15M PRN IV DECREASED GLUCOSE; Start 11/08/16 at 19:30 Glucagon (Glucagen) 1 mg Q15M PRN IM DECREASED GLUCOSE; Start 11/08/16 at 19:30 Glucose (Glutose) 15 gm Q15M PRN BUCCAL DECREASED GLUCOSE; Start 11/08/16 at 19 :30 Atorvastatin Calcium (Lipitor) 40 mg QHS PO Last administered on 11/12/16 20: 39; Admin Dose 40 MG; Start 11/09/16 at 21:00 Famotidine (Pepcid) 40 mg HS PO Last administered on 11/12/16 20:40; Admin Dose 40 MG; Start 11/09/16 at 21:00 Fenofibrate (Tricor) 48 mg QAM PO Last administered on 11/13/16 08:20; Admin Dose 48 MG; Start 11/10/16 at 09:00 Folic Acid (Folic Acid) 2 mg DAILY PO Last administered on 11/13/16 08:20; Admin Dose 2 MG; Start 11/10/16 at 09:00 Gabapentin (Neurontin) 100 mg TID PO Last administered on 11/13/16 08:20; Admin Dose 100 MG; Start 11/09/16 at 21:00 Nifedipine (Procardia Xl) 30 mg BID PO Last administered on 11/13/16 08:20; Admin Dose 30 MG; Start 11/09/16 at 13:30 Epoetin César (Epogen (Esrd)) 10,000 units MoWeFr@17 SC Last administered on 17:53; Admin Dose 10,000 UNITS; Start 11/09/16 at 17:00 Albuterol (Ventolin Hfa) 2 puff Q4H PRN INH WHEEZING AND SOB; Start 11/09/16 at 14:30 Celecoxib (Celebrex) 200 mg DAILY PO Last administered on 11/13/16 08:20; Admin Dose 200 MG; Start 11/10/16 at 09:00 Acetaminophen/ Hydrocodone Bitart ([place] (5/325)) 1 tab Q6H PRN PO pain Last administered on 11/10/16 06:15; Admin Dose 1 TAB; Start 11/09/16 at 14:30 Linagliptin (Tradjenta) 5 mg DAILY PO Last administered on 11/13/16 08:20; Admin Dose 5 MG; Start 11/10/16 at 09:00 Prednisone (Prednisone) 1 mg TID PO Last administered on 11/13/16 08:20; Admin Dose 1 MG; Start 11/09/16 at 21:00 Salmeterol Xinafoate/ Fluticasone (Advair 250/50 Diskus) 1 inh BID INH Last administered on 11/13/16 08:19; Admin Dose 1 INH; Start 11/09/16 at 21:00 Warfarin Sodium 4 mg 4 mg DAILY@17 PO Last administered on 11/12/16 17:16; Admin Dose 4 MG; Start 11/10/16 at 17:00; Status Future Hold Ferric Sodium Gluconate Complex/ Sodium Chloride (Ferrlecit/NS) 110 ml @ 110 mls/hr Q24H IVPB Last administered on 11/12/16 11:45; Admin Dose 110 MLS/HR; Start 11/10/16 at 11:00; Stop 11/14/16 at 11:59 Collagenase (Santyl) 1 applic DAILY TOP Last administered on 11/13/16 08:19; Admin Dose 1 APPLIC; Start 11/11/16 at 09:00 Collagenase (Santyl) 1 applic DAILY PRN TOP WOUND CARE; Start 11/10/16 at 15:30 Metoprolol Tartrate (Lopressor) 25 mg BID PO Last administered on 11/13/16 08: 21; Admin Dose 25 MG; Start 11/12/16 at 21:00 Lorazepam 0.5 mg 0.5 mg Q6H PRN IV AGITATION/ANXIETY Last administered on 16:14; Admin Dose 0.5 MG; Start 11/12/16 at 16:00 Ceftriaxone Sodium (Rocephin) 50 ml @ 100 mls/hr Q24H IVPB Last administered on 11/12/16 21:16; Admin Dose 100 MLS/HR; Start 11/12/16 at 21:00 SOBEIDA ENRIQUEZ MD Nov 13, 2016 10:53
[2016-11-13] MEDS: SOD FERRIC GLUC COMPLX 125 MG in SOD CHLORIDE 0.9% 100 ML IVPB SCH (11:14)
--- NOTE | 2016-11-13 12:38 | CONS ---
Date/Time of Note Date/Time of Note DATE: 11/13/16 TIME: 12:32 Assessment/Plan Assessment/Plan Chief Complaint/Hosp Course assessment/impression - E. coli bacteremia (11/10/2016) - bacillus spp. blood culture from 11/08/2016, in two sets. Contaminant vs. pathogen. Depends on the species - possible suppurative (septic) thrombophlebitis of R internal jugular vein - pain in R lateral neck and RUE x5 weeks, probably due to septic thrombophlebitis of R internal jugular vein - skin ulcer of posterior scalp, superficial swab did not grow bacteria - diarrhea, abd/pel CT did not show acute process - cough, possible rhinitis prior to admission - MS change on 11/12/2016, probably due to benzodiazepines. head CT unremarkable - breast mass seen on CT, evaluated by Dr. Nickerson - ESRD via AVF in RUE - displaced Fx of C2 spine, on neck collar - h/o AVR at [facility] for ?aortic valve stenosis. Transthoracic echo was negative for vegetation on 11/11/2016 - DM - COPD - sacrcoidosis - CAD, CHF - h/o diverticulosis - h/o hemorrhoids - h/o colonic AVM recommendations - pending results: speciation of bacillus species in her blood cultures ( requested on 11/13/2016), final wound culture of posterior scalp, blood cultures x2 from 11/10/2016, stool tests for C diff and culture - continue IV ceftriaxone (sensitivity to cefotaxime predicts sensitivity to ceftriaxone), 11/12/2016-. s/p IV vancomycin and pip/tazo for 2 days prior to that management d/w Pt and her RN Problems: Consultation Date/Type/Reason Admit Date/Time Nov 10, 2016 at 15:14 Initial Consult Date 11/10/16 Type of Consultation: ID Referring Provider: SOBEIDA ENRIQUEZ MD 24 HR Interval Summary Constitutional: improved Detailed Summary Eyes: no complaints ENT: no complaints Respiratory: no complaints Cardiovascular: no complaints Gastrointestinal: diarrhea, No nausea, No vomiting Genitourinary: other (anuric) Musculoskeletal: bone/joint pain (R shoulder-R neck) Skin: no complaints Neurologic: No headache Exam/Review of Systems Vital Signs Vitals Vital Signs Date Time Temp Pulse Resp B/P Pulse Ox O2 Delivery O2 Flow Rate FiO2 11/13/16 12:14 98.6 85 18 124/58 92 11/13/16 05:24 2.0 11/12/16 20:00 Nasal Cannula Intake and Output 11/12/16 11/12/16 11/13/16 15:00 23:00 07:00 Intake Total 100 ml 350 ml 180 ml Balance 100 ml 350 ml 180 ml Exam Constitutional: frail Psych: nl mood/affect, no complaints, No confusion Head: atraumatic, normocephalic Eyes: nl conjunctiva, nl lids ENMT: nl external ears & nose, nl nasal mucosa & septum Neck: other (+collar/brace) Respiratory: diminished breath sounds Cardiovascular: nl pulses, regular rate and rhythm Gastrointestinal: non-tender, soft Musculoskeletal: joint tenderness (R shoulder, deltoid area) Extremities: other (+AVF in RUE), No edema 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: nl mental status, nl speech, No confused, No lethargic Skin: nl turgor Results Result Diagram: 11/13/16 0710 11/13/16 0710 Results 24 hrs Laboratory Tests Test 11/12/16 17:09 11/12/16 20:38 11/13/16 07:10 11/13/16 08:17 Bedside Glucose 107 106 72 White Blood Count 9.4 # Red Blood Count 3.55 L Hemoglobin 10.6 L Hematocrit 32.7 L Mean Corpuscular Volume 92.1 Mean Corpuscular Hemoglobin 29.9 Mean Corpuscular Hemoglobin Concent 32.4 Red Cell Distribution Width 15.6 H Platelet Count 179 # Mean Platelet Volume 11.6 H Neutrophils % 63.9 Lymphocytes % 25.8 Monocytes % 7.3 Eosinophils % 1.4 Basophils % 0.6 Nucleated Red Blood Cells % 0.3 H Neutrophils # 6.0 Lymphocytes # 2.4 Monocytes # 0.7 Eosinophils # 0.1 Basophils # 0.1 Nucleated Red Blood Cells # 0.0 Prothrombin Time 44.4 #H Prothrombin Time Ratio 3.5 INR International Normalized Ratio 4.61 Sodium Level 144 Potassium Level 4.9 Chloride Level 101 Carbon Dioxide Level 24 Anion Gap 24 H Blood Urea Nitrogen 44 H Creatinine 8.47 H Glucose Level 63 L Calcium Level 9.2 Total Bilirubin 0.0 L Direct Bilirubin 0.00 Indirect Bilirubin 0.0 Aspartate Amino Transf (AST/SGOT) 17 Alanine Aminotransferase (ALT/SGPT) 22 Alkaline Phosphatase 47 Total Protein 7.0 Albumin 3.5 Globulin 3.50 H Albumin/Globulin Ratio 1.00 Medications Medications Current Medications Ondansetron HCl (Zofran Inj) 4 mg Q6H PRN IV NAUSEA AND/OR VOMITING; Start at 18:30 Acetaminophen (Tylenol Tab) 650 mg Q6H PRN PO PAIN LEVEL 1-3 OR FEVER Last administered on 11/09/16 00:55; Admin Dose 650 MG; Start 11/08/16 at 18:30 Docusate Sodium (Colace) 100 mg Q12H PRN PO CONSTIPATION; Start 11/08/16 at 18: 30 Diagnostic Test (Pha) (Accu-Chek) 1 ea 02 XX Last administered on 11/13/16 02: 01; Admin Dose 1 EA; Start 11/09/16 at 02:00 Miscellaneous Information 1 ea NOTE XX ; Start 11/08/16 at 19:30 Glucose (Glutose) 15 gm Q15M PRN PO DECREASED GLUCOSE; Start 11/08/16 at 19:30 Glucose (Glutose) 22.5 gm Q15M PRN PO DECREASED GLUCOSE; Start 11/08/16 at 19: 30 Dextrose (D50w Syringe) 25 ml Q15M PRN IV DECREASED GLUCOSE; Start 11/08/16 at 19:30 Dextrose (D50w Syringe) 50 ml Q15M PRN IV DECREASED GLUCOSE; Start 11/08/16 at 19:30 Glucagon (Glucagen) 1 mg Q15M PRN IM DECREASED GLUCOSE; Start 11/08/16 at 19:30 Glucose (Glutose) 15 gm Q15M PRN BUCCAL DECREASED GLUCOSE; Start 11/08/16 at 19 :30 Atorvastatin Calcium (Lipitor) 40 mg QHS PO Last administered on 11/12/16 20: 39; Admin Dose 40 MG; Start 11/09/16 at 21:00 Famotidine (Pepcid) 40 mg HS PO Last administered on 11/12/16 20:40; Admin Dose 40 MG; Start 11/09/16 at 21:00 Fenofibrate (Tricor) 48 mg QAM PO Last administered on 11/13/16 08:20; Admin Dose 48 MG; Start 11/10/16 at 09:00 Folic Acid (Folic Acid) 2 mg DAILY PO Last administered on 11/13/16 08:20; Admin Dose 2 MG; Start 11/10/16 at 09:00 Gabapentin (Neurontin) 100 mg TID PO Last administered on 11/13/16 12:24; Admin Dose 100 MG; Start 11/09/16 at 21:00 Nifedipine (Procardia Xl) 30 mg BID PO Last administered on 11/13/16 08:20; Admin Dose 30 MG; Start 11/09/16 at 13:30 Epoetin César (Epogen (Esrd)) 10,000 units MoWeFr@17 SC Last administered on 17:53; Admin Dose 10,000 UNITS; Start 11/09/16 at 17:00 Albuterol (Ventolin Hfa) 2 puff Q4H PRN INH WHEEZING AND SOB; Start 11/09/16 at 14:30 Celecoxib (Celebrex) 200 mg DAILY PO Last administered on 11/13/16 08:20; Admin Dose 200 MG; Start 11/10/16 at 09:00 Acetaminophen/ Hydrocodone Bitart ([place] (5/325)) 1 tab Q6H PRN PO pain Last administered on 11/10/16 06:15; Admin Dose 1 TAB; Start 11/09/16 at 14:30 Linagliptin (Tradjenta) 5 mg DAILY PO Last administered on 11/13/16 08:20; Admin Dose 5 MG; Start 11/10/16 at 09:00 Prednisone (Prednisone) 1 mg TID PO Last administered on 11/13/16 12:23; Admin Dose 1 MG; Start 11/09/16 at 21:00 Salmeterol Xinafoate/ Fluticasone (Advair 250/50 Diskus) 1 inh BID INH Last administered on 11/13/16 08:19; Admin Dose 1 INH; Start 11/09/16 at 21:00 Warfarin Sodium 4 mg 4 mg DAILY@17 PO Last administered on 11/12/16 17:16; Admin Dose 4 MG; Start 11/10/16 at 17:00; Status Future Hold Ferric Sodium Gluconate Complex/ Sodium Chloride (Ferrlecit/NS) 110 ml @ 110 mls/hr Q24H IVPB Last administered on 11/13/16 11:14; Admin Dose 110 MLS/HR; Start 11/10/16 at 11:00; Stop 11/14/16 at 11:59 Collagenase (Santyl) 1 applic DAILY TOP Last administered on 11/13/16 08:19; Admin Dose 1 APPLIC; Start 11/11/16 at 09:00 Collagenase (Santyl) 1 applic DAILY PRN TOP WOUND CARE; Start 11/10/16 at 15:30 Metoprolol Tartrate (Lopressor) 25 mg BID PO Last administered on 11/13/16 08: 21; Admin Dose 25 MG; Start 11/12/16 at 21:00 Lorazepam 0.5 mg 0.5 mg Q6H PRN IV AGITATION/ANXIETY Last administered on 16:14; Admin Dose 0.5 MG; Start 11/12/16 at 16:00 Ceftriaxone Sodium (Rocephin) 50 ml @ 100 mls/hr Q24H IVPB Last administered on 11/12/16 21:16; Admin Dose 100 MLS/HR; Start 11/12/16 at 21:00 CAROL SETH M.D. Nov 13, 2016 12:38
[2016-11-13] MEDS: ATORVASTATIN 40 MG TAB PO SCH (22:16)
[2016-11-13] MEDS: CEFTRIAXONE 2 GM/50 ML (PMX) 50 ML IVPB SCH (22:16)
[2016-11-13] MEDS: HYDROCODONE/APAP (5/325) TAB PO PRN (22:17)
[2016-11-13] MEDS: FAMOTIDINE 20 MG TAB PO SCH (22:18)
[2016-11-14] VITALS (20 sets, daily range): BP systolic 90–144; BP diastolic 26–62; PULSE 68–90; RESP 18–20
[2016-11-14] MEDS: ACCU-CHEK XX SCH (02:00)
[2016-11-14] MEDS: LORAZEPAM 2 MG INJ IV PRN (02:26)
[2016-11-14 07:33] LABS: BASOPHIL # 0.1 10^3/ul (0.0-0.1); BASOPHILS % 0.8 % (0.0-2.0); EOSINOPHILS # 0.2 10^3/ul (0.0-0.5); EOSINOPHILS % 2.1 % (0.0-7.0); HEMATOCRIT 32.9 % (37.0-47.0); HEMOGLOBIN 10.4 g/dl (12.0-16.0); LYMPHOCYTES % 24.3 % (15.0-51.0); MEAN CORPUSCULAR HEMOGLOBIN 30.9 pg (29.0-33.0); MEAN CORPUSCULAR HGB CONC 31.6 g/dl (32.0-37.0); MEAN CORPUSCULAR VOLUME 97.6 fl (82.0-101.0); MEAN PLATELET VOLUME 12.6 fl (7.4-10.4); MONOCYTE # 0.7 10^3/ul (0.3-0.9); MONOCYTES % 8.6 % (0.0-11.0); NEUTROPHIL # 5.2 10^3/ul (1.6-7.5); NEUTROPHILS % 62.9 % (39.0-77.0); NUCLEATED RED BLOOD CELLS% 0.4 /100WBC (0.0-0.0); PLATELET COUNT 149 10^3/UL (140-415); RED BLOOD COUNT 3.37 10^6/ul (4.20-5.40); RED CELL DISTRIBUTION WIDTH 16.3 % (11.5-14.5); WHITE BLOOD COUNT 8.3 10^3/ul (4.8-10.8)
[2016-11-14 07:54] LABS: CALCIUM 8.6 mg/dl (8.4-10.2); CREATININE 9.65 mg/dl (0.44-1.00); POTASSIUM 5.1 mmol/L (3.5-5.1)
--- NOTE | 2016-11-14 07:58 | CONS ---
Date/Time of Note Date/Time of Note DATE: 11/14/16 TIME: 07:55 Assessment/Plan Assessment/Plan Problems: (1) Anemia in chronic kidney disease Comment: finishing IV Fe... on EPO (2) Internal jugular (IJ) vein thromboembolism, chronic Status: Chronic Comment: old, asx Qualifiers: Laterality: right Qualified Code: I82.C21 - Internal jugular (IJ) vein thromboembolism, chronic, right (3) Diarrhea Status: Acute Comment: C Diff is (-) (4) ESRD (end stage renal disease) on dialysis Status: Chronic Comment: for HD today (5) Atrial fibrillation Status: Chronic Comment: rate controlled, asx, on coumadin Consultation Date/Type/Reason Admit Date/Time Nov 10, 2016 at 15:14 Initial Consult Date 11/09/16 Type of Consultation: neph Referring Provider: SOBEIDA ENRIQUEZ MD 24 HR Interval Summary Free Text/Dictation no clinical change: remains afeb, no leukocytosis, with f/u cxs being (-)... C Diff also (-) Exam/Review of Systems Vital Signs Vitals Vital Signs Date Time Temp Pulse Resp B/P Pulse Ox O2 Delivery O2 Flow Rate FiO2 11/14/16 04:21 73 11/14/16 03:54 98.7 18 93/44 95 11/14/16 00:35 2.0 11/13/16 21:00 Nasal Cannula Intake and Output 11/13/16 11/13/16 11/14/16 15:00 23:00 07:00 Intake Total 600 ml 700 ml Balance 600 ml 700 ml Exam Constitutional: alert Psych: no complaints Eyes: nl conjunctiva Neck: other (in hard collar) Cardiovascular: irregular rhythm Gastrointestinal: soft Extremities: normal pulses (fxn AVF RUE) Results Result Diagram: 11/14/16 0723 11/13/16 0710 Results 24 hrs Laboratory Tests Test 11/13/16 08:17 11/13/16 12:23 11/13/16 17:20 11/13/16 22:06 Bedside Glucose 72 97 89 156 Test 11/14/16 07:23 White Blood Count 8.3 Red Blood Count 3.37 L Hemoglobin 10.4 L Hematocrit 32.9 L Mean Corpuscular Volume 97.6 Mean Corpuscular Hemoglobin 30.9 Mean Corpuscular Hemoglobin Concent 31.6 L Red Cell Distribution Width 16.3 H Platelet Count 149 Mean Platelet Volume 12.6 H Neutrophils % 62.9 Lymphocytes % 24.3 Monocytes % 8.6 Eosinophils % 2.1 Basophils % 0.8 Nucleated Red Blood Cells % 0.4 H Neutrophils # 5.2 Lymphocytes # 2.0 Monocytes # 0.7 Eosinophils # 0.2 Basophils # 0.1 Nucleated Red Blood Cells # 0.0 Medications Medications Current Medications Ondansetron HCl (Zofran Inj) 4 mg Q6H PRN IV NAUSEA AND/OR VOMITING; Start at 18:30 Acetaminophen (Tylenol Tab) 650 mg Q6H PRN PO PAIN LEVEL 1-3 OR FEVER Last administered on 11/09/16 00:55; Admin Dose 650 MG; Start 11/08/16 at 18:30 Docusate Sodium (Colace) 100 mg Q12H PRN PO CONSTIPATION; Start 11/08/16 at 18: 30 Diagnostic Test (Pha) (Accu-Chek) 1 ea 02 XX Last administered on 11/13/16 02: 01; Admin Dose 1 EA; Start 11/09/16 at 02:00 Miscellaneous Information 1 ea NOTE XX ; Start 11/08/16 at 19:30 Glucose (Glutose) 15 gm Q15M PRN PO DECREASED GLUCOSE; Start 11/08/16 at 19:30 Glucose (Glutose) 22.5 gm Q15M PRN PO DECREASED GLUCOSE; Start 11/08/16 at 19: 30 Dextrose (D50w Syringe) 25 ml Q15M PRN IV DECREASED GLUCOSE; Start 11/08/16 at 19:30 Dextrose (D50w Syringe) 50 ml Q15M PRN IV DECREASED GLUCOSE; Start 11/08/16 at 19:30 Glucagon (Glucagen) 1 mg Q15M PRN IM DECREASED GLUCOSE; Start 11/08/16 at 19:30 Glucose (Glutose) 15 gm Q15M PRN BUCCAL DECREASED GLUCOSE; Start 11/08/16 at 19 :30 Atorvastatin Calcium (Lipitor) 40 mg QHS PO Last administered on 11/13/16 22: 16; Admin Dose 40 MG; Start 11/09/16 at 21:00 Famotidine (Pepcid) 40 mg HS PO Last administered on 11/13/16 22:18; Admin Dose 40 MG; Start 11/09/16 at 21:00 Fenofibrate (Tricor) 48 mg QAM PO Last administered on 11/13/16 08:20; Admin Dose 48 MG; Start 11/10/16 at 09:00 Folic Acid (Folic Acid) 2 mg DAILY PO Last administered on 11/13/16 08:20; Admin Dose 2 MG; Start 11/10/16 at 09:00 Gabapentin (Neurontin) 100 mg TID PO Last administered on 11/13/16 22:16; Admin Dose 100 MG; Start 11/09/16 at 21:00 Nifedipine (Procardia Xl) 30 mg BID PO Last administered on 11/13/16 22:25; Admin Dose 30 MG; Start 11/09/16 at 13:30 Epoetin César (Epogen (Esrd)) 10,000 units MoWeFr@17 SC Last administered on 17:53; Admin Dose 10,000 UNITS; Start 11/09/16 at 17:00 Albuterol (Ventolin Hfa) 2 puff Q4H PRN INH WHEEZING AND SOB; Start 11/09/16 at 14:30 Celecoxib (Celebrex) 200 mg DAILY PO Last administered on 11/13/16 08:20; Admin Dose 200 MG; Start 11/10/16 at 09:00 Acetaminophen/ Hydrocodone Bitart ([place] (5/325)) 1 tab Q6H PRN PO pain Last administered on 11/13/16 22:17; Admin Dose 1 TAB; Start 11/09/16 at 14:30 Linagliptin (Tradjenta) 5 mg DAILY PO Last administered on 11/13/16 08:20; Admin Dose 5 MG; Start 11/10/16 at 09:00 Prednisone (Prednisone) 1 mg TID PO Last administered on 11/13/16 22:18; Admin Dose 1 MG; Start 11/09/16 at 21:00 Salmeterol Xinafoate/ Fluticasone (Advair 250/50 Diskus) 1 inh BID INH Last administered on 11/13/16 22:28; Admin Dose 1 INH; Start 11/09/16 at 21:00 Warfarin Sodium 4 mg 4 mg DAILY@17 PO Last administered on 11/12/16 17:16; Admin Dose 4 MG; Start 11/10/16 at 17:00; Status Future Hold Ferric Sodium Gluconate Complex/ Sodium Chloride (Ferrlecit/NS) 110 ml @ 110 mls/hr Q24H IVPB Last administered on 11/13/16 11:14; Admin Dose 110 MLS/HR; Start 11/10/16 at 11:00; Stop 11/14/16 at 11:59 Collagenase (Santyl) 1 applic DAILY TOP Last administered on 11/13/16 08:19; Admin Dose 1 APPLIC; Start 11/11/16 at 09:00 Collagenase (Santyl) 1 applic DAILY PRN TOP WOUND CARE; Start 11/10/16 at 15:30 Metoprolol Tartrate (Lopressor) 25 mg BID PO Last administered on 11/13/16 22: 21; Admin Dose 25 MG; Start 11/12/16 at 21:00 Lorazepam 0.5 mg 0.5 mg Q6H PRN IV AGITATION/ANXIETY Last administered on 02:26; Admin Dose 0.5 MG; Start 11/12/16 at 16:00 Ceftriaxone Sodium (Rocephin) 50 ml @ 100 mls/hr Q24H IVPB Last administered on 11/13/16 22:16; Admin Dose 100 MLS/HR; Start 11/12/16 at 21:00 NICO HAY MD Nov 14, 2016 07:58
[2016-11-14] MEDS: INSULIN ASPART [NOVOLOG] 3 ML PEN SC SCH ×4 (08:00→22:37)
[2016-11-14 08:01] LABS: PROTIME 58.2 Sec (12.2-14.2); PT RATIO 4.5
[2016-11-14 08:21] LABS: INR 6.48
[2016-11-14] MEDS: SEVELAMER CARBONATE 0.8 GM PKT PO SCH ×3 (09:34→17:39)
[2016-11-14] MEDS: GABAPENTIN 100 MG CAP PO SCH ×3 (09:35→22:21)
[2016-11-14] MEDS: FOLIC ACID 1 MG TAB PO SCH (09:35)
[2016-11-14] MEDS: LINAGLIPTIN 5 MG TABLET PO SCH (09:35)
[2016-11-14] MEDS: predniSONE 1 MG TAB PO SCH ×3 (09:35→23:19)
[2016-11-14] MEDS: NIFEdipine (XL) 30 MG TAB PO SCH ×2 (09:35→21:00)
[2016-11-14] MEDS: METOPROLOL 25 MG TAB PO SCH ×2 (09:36→22:22)
[2016-11-14] MEDS: SALMETEROL/FLUTICASONE 250/50 INHA INH SCH ×2 (09:46→22:19)
[2016-11-14] MEDS: COLLAGENASE 30 GM TUBE TOP SCH (09:47)
[2016-11-14] MEDS: FENOFIBRATE 48 MG TAB PO SCH (09:47)
[2016-11-14] MEDS: CELECOXIB 200 MG CAP PO SCH (09:47)
[2016-11-14] MEDS: SOD FERRIC GLUC COMPLX 125 MG in SOD CHLORIDE 0.9% 100 ML IVPB SCH (13:06)
[2016-11-14] MEDS ORDERED: VANCOMYCIN IV PER PHARMACY XX SCH (13:30)
--- NOTE | 2016-11-14 13:42 | CONS ---
Date/Time of Note Date/Time of Note DATE: 11/14/16 TIME: 13:30 Assessment/Plan Assessment/Plan Chief Complaint/Hosp Course assessment/impression - bacteremia due to E. coli, anaerobic Gram positive nancy (11/10/2016) - bacillus spp. blood culture from 11/08/2016, Contaminant vs. pathogen. Depends on the species, workup in progress - possible suppurative (septic) thrombophlebitis of R internal jugular vein - pain in R lateral neck and RUE x5 weeks, possibly due to septic thrombophlebitis of R internal jugular vein - skin ulcer of posterior scalp, superficial swab did not grow bacteria - diarrhea, abd/pel CT did not show acute process. according to Pt's family, Pt has had intermittent diarrhea at baseline - possible pseudomonas enteritis - cough, possible rhinitis prior to admission - MS change on 11/12/2016, probably due to benzodiazepines. head CT unremarkable - breast mass seen on CT, evaluated by Dr. Nickerson - JULIO via AVF in RUE - displaced Fx of C2 spine, on neck collar - h/o AVR at [facility] for ?aortic valve stenosis. Transthoracic echo was negative for vegetation on 11/11/2016 - DM - COPD - sacrcoidosis - CAD, CHF - h/o diverticulosis - h/o hemorrhoids - h/o colonic AVM recommendations - pending results: speciation and sensitivity of Gram positive rods in her blood culture, speciation of bacillus species in her blood culture (requested on 11/13/2016), sensitivity of pseudomonas in stool culture - change IV ceftriaxone to cefepime, Her E. coli was sensitive to cefepime ( confirmed by [employer] tech). If her pseudomonas is sensitive to cefepime, cefepime will cover both - re-start IV vancomycin pending speciation and sensitivity of Gram positive rods in her blood culture management d/w Pt, her RN, micro techs (Adam Manzano), son and [id number]. All questions were answered. the total time I took to care for this Pt today was from 1240 to 1320 Problems: Consultation Date/Type/Reason Admit Date/Time Nov 10, 2016 at 15:14 Initial Consult Date 11/10/16 Type of Consultation: ID Referring Provider: SOBEIDA ENRIQUEZ MD 24 HR Interval Summary Free Text/Dictation took ativan and became lethargic Subjective hx not possible: pt non-verbal Exam/Review of Systems Vital Signs Vitals Vital Signs Date Time Temp Pulse Resp B/P Pulse Ox O2 Delivery O2 Flow Rate FiO2 11/14/16 12:07 75 11/14/16 11:53 98.3 20 117/56 99 11/14/16 00:35 2.0 11/13/16 21:00 Nasal Cannula Intake and Output 11/13/16 11/13/16 11/14/16 15:00 23:00 07:00 Intake Total 600 ml 700 ml Balance 600 ml 700 ml Exam Constitutional: frail, non-verbal Psych: confusion Head: atraumatic, normocephalic Eyes: nl lids ENMT: nl external ears & nose Neck: other (+collar) Respiratory: diminished breath sounds Cardiovascular: nl pulses, regular rate and rhythm Gastrointestinal: non-tender, soft Musculoskeletal: other (I palpated her R shoulder, but Pt as lethargic and the exam was limited) Extremities: edema 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: lethargic Skin: nl turgor Results Result Diagram: 11/14/1672211/14/16 0723 Results 24 hrs Laboratory Tests Test 11/13/16 17:20 11/13/16 22:06 11/14/16 07:23 11/14/16 09:16 Bedside Glucose 89 156 89 White Blood Count 8.3 Red Blood Count 3.37 L Hemoglobin 10.4 L Hematocrit 32.9 L Mean Corpuscular Volume 97.6 Mean Corpuscular Hemoglobin 30.9 Mean Corpuscular Hemoglobin Concent 31.6 L Red Cell Distribution Width 16.3 H Platelet Count 149 Mean Platelet Volume 12.6 H Neutrophils % 62.9 Lymphocytes % 24.3 Monocytes % 8.6 Eosinophils % 2.1 Basophils % 0.8 Nucleated Red Blood Cells % 0.4 H Neutrophils # 5.2 Lymphocytes # 2.0 Monocytes # 0.7 Eosinophils # 0.2 Basophils # 0.1 Nucleated Red Blood Cells # 0.0 Prothrombin Time 58.2 #H Prothrombin Time Ratio 4.5 INR International Normalized Ratio 6.48 *H Sodium Level 142 Potassium Level 5.1 Chloride Level 102 Carbon Dioxide Level 23 Anion Gap 22 H Blood Urea Nitrogen 52 H Creatinine 9.65 H Glucose Level 96 Calcium Level 8.6 Test 11/14/16 12:58 Bedside Glucose 77 Medications Medications Current Medications Ondansetron HCl (Zofran Inj) 4 mg Q6H PRN IV NAUSEA AND/OR VOMITING; Start at 18:30 Acetaminophen (Tylenol Tab) 650 mg Q6H PRN PO PAIN LEVEL 1-3 OR FEVER Last administered on 11/09/16 00:55; Admin Dose 650 MG; Start 11/08/16 at 18:30 Docusate Sodium (Colace) 100 mg Q12H PRN PO CONSTIPATION; Start 11/08/16 at 18: 30 Diagnostic Test (Pha) (Accu-Chek) 1 ea 02 XX Last administered on 11/13/16 02: 01; Admin Dose 1 EA; Start 11/09/16 at 02:00 Miscellaneous Information 1 ea NOTE XX ; Start 11/08/16 at 19:30 Glucose (Glutose) 15 gm Q15M PRN PO DECREASED GLUCOSE; Start 11/08/16 at 19:30 Glucose (Glutose) 22.5 gm Q15M PRN PO DECREASED GLUCOSE; Start 11/08/16 at 19: 30 Dextrose (D50w Syringe) 25 ml Q15M PRN IV DECREASED GLUCOSE; Start 11/08/16 at 19:30 Dextrose (D50w Syringe) 50 ml Q15M PRN IV DECREASED GLUCOSE; Start 11/08/16 at 19:30 Glucagon (Glucagen) 1 mg Q15M PRN IM DECREASED GLUCOSE; Start 11/08/16 at 19:30 Glucose (Glutose) 15 gm Q15M PRN BUCCAL DECREASED GLUCOSE; Start 11/08/16 at 19 :30 Atorvastatin Calcium (Lipitor) 40 mg QHS PO Last administered on 11/13/16 22: 16; Admin Dose 40 MG; Start 11/09/16 at 21:00 Famotidine (Pepcid) 40 mg HS PO Last administered on 11/13/16 22:18; Admin Dose 40 MG; Start 11/09/16 at 21:00 Fenofibrate (Tricor) 48 mg QAM PO Last administered on 11/14/16 09:47; Admin Dose 48 MG; Start 11/10/16 at 09:00 Folic Acid (Folic Acid) 2 mg DAILY PO Last administered on 11/14/16 09:35; Admin Dose 2 MG; Start 11/10/16 at 09:00 Gabapentin (Neurontin) 100 mg TID PO Last administered on 11/14/16 09:35; Admin Dose 100 MG; Start 11/09/16 at 21:00 Nifedipine (Procardia Xl) 30 mg BID PO Last administered on 11/14/16 09:35; Admin Dose 30 MG; Start 11/09/16 at 13:30 Epoetin César (Epogen (Esrd)) 10,000 units MoWeFr@17 SC Last administered on 17:53; Admin Dose 10,000 UNITS; Start 11/09/16 at 17:00 Albuterol (Ventolin Hfa) 2 puff Q4H PRN INH WHEEZING AND SOB; Start 11/09/16 at 14:30 Celecoxib (Celebrex) 200 mg DAILY PO Last administered on 11/14/16 09:47; Admin Dose 200 MG; Start 11/10/16 at 09:00 Acetaminophen/ Hydrocodone Bitart ([place] (5/325)) 1 tab Q6H PRN PO pain Last administered on 11/13/16 22:17; Admin Dose 1 TAB; Start 11/09/16 at 14:30 Linagliptin (Tradjenta) 5 mg DAILY PO Last administered on 11/14/16 09:35; Admin Dose 5 MG; Start 11/10/16 at 09:00 Prednisone (Prednisone) 1 mg TID PO Last administered on 11/14/16 13:00; Admin Dose 1 MG; Start 11/09/16 at 21:00 Salmeterol Xinafoate/ Fluticasone (Advair 250/50 Diskus) 1 inh BID INH Last administered on 11/14/16 09:46; Admin Dose 1 INH; Start 11/09/16 at 21:00 Warfarin Sodium (Coumadin) 4 mg DAILY@17 PO Last administered on 11/12/16 17: 16; Admin Dose 4 MG; Start 11/10/16 at 17:00; Status Future Hold Collagenase (Santyl) 1 applic DAILY TOP Last administered on 11/14/16 09:47; Admin Dose 1 APPLIC; Start 11/11/16 at 09:00 Collagenase (Santyl) 1 applic DAILY PRN TOP WOUND CARE; Start 11/10/16 at 15:30 Metoprolol Tartrate (Lopressor) 25 mg BID PO Last administered on 7/31/17at 09: 36; Admin Dose 25 MG; Start 11/12/16 at 21:00 Lorazepam 0.5 mg 0.5 mg Q6H PRN IV AGITATION/ANXIETY Last administered on 02:26; Admin Dose 0.5 MG; Start 11/12/16 at 16:00 Ceftriaxone Sodium (Rocephin) 50 ml @ 100 mls/hr Q24H IVPB Last administered on 11/13/16 22:16; Admin Dose 100 MLS/HR; Start 11/12/16 at 21:00 CAROL SETH M.D. Nov 14, 2016 13:42
--- NOTE | 2016-11-14 14:14 | CONS ---
Date/Time of Note Date/Time of Note DATE: 11/14/16 TIME: 14:04 Assessment/Plan Assessment/Plan Chief Complaint/Hosp Course assessment/impression - bacteremia due to E. coli, eggerthella (11/10/2016) - bacillus spp. blood culture from 11/08/2016, Contaminant vs. pathogen. Depends on the species, workup in progress - possible suppurative (septic) thrombophlebitis of R internal jugular vein - pain in R lateral neck and RUE x5 weeks, possibly due to septic thrombophlebitis of R internal jugular vein - skin ulcer of posterior scalp, superficial swab did not grow bacteria - diarrhea, abd/pel CT did not show acute process. according to Pt's family, Pt has had intermittent diarrhea at baseline - possible pseudomonas enteritis - cough, possible rhinitis prior to admission - MS change on 11/12/2016, probably due to benzodiazepines. head CT unremarkable - breast mass seen on CT, evaluated by Dr. Nickerson - JULIO via AVF in RUE - displaced Fx of C2 spine, on neck collar - h/o AVR at [facility] for ?aortic valve stenosis. Transthoracic echo was negative for vegetation on 11/11/2016 - DM - COPD - sacrcoidosis - CAD, CHF - h/o diverticulosis - h/o hemorrhoids - h/o colonic AVM REVISED recommendations - pending results: sensitivity of eggerthella in her blood culture (send out test, requested to Tatiana, a excavating supervisor on 11/14/2016), speciation of bacillus species in her blood culture (requested on 11/13/2016), sensitivity of pseudomonas in stool culture - change IV ceftriaxone to pip/tazo management d/w Pt, her RN, [employer] (Adam Manzano Aleli), son and daughter-in- law. All questions were answered. the total time I took to care for this Pt today was from 1240 to 1320 Problems: Consultation Date/Type/Reason Admit Date/Time Nov 10, 2016 at 15:14 Initial Consult Date 11/10/16 Type of Consultation: ID Referring Provider: SOBEIDA ENRIQUEZ MD Exam/Review of Systems Vital Signs Vitals Vital Signs Date Time Temp Pulse Resp B/P Pulse Ox O2 Delivery O2 Flow Rate FiO2 11/14/16 12:07 75 11/14/16 11:53 98.3 20 117/56 99 11/14/16 00:35 2.0 11/13/16 21:00 Nasal Cannula Intake and Output 11/13/16 11/13/16 11/14/16 15:00 23:00 07:00 Intake Total 600 ml 700 ml Balance 600 ml 700 ml Results Result Diagram: 11/14/16 0723 11/14/16 0723 Results 24 hrs Laboratory Tests Test 11/13/16 17:20 11/13/16 22:06 11/14/16 07:23 11/14/16 09:16 Bedside Glucose 89 156 89 White Blood Count 8.3 Red Blood Count 3.37 L Hemoglobin 10.4 L Hematocrit 32.9 L Mean Corpuscular Volume 97.6 Mean Corpuscular Hemoglobin 30.9 Mean Corpuscular Hemoglobin Concent 31.6 L Red Cell Distribution Width 16.3 H Platelet Count 149 Mean Platelet Volume 12.6 H Neutrophils % 62.9 Lymphocytes % 24.3 Monocytes % 8.6 Eosinophils % 2.1 Basophils % 0.8 Nucleated Red Blood Cells % 0.4 H Neutrophils # 5.2 Lymphocytes # 2.0 Monocytes # 0.7 Eosinophils # 0.2 Basophils # 0.1 Nucleated Red Blood Cells # 0.0 Prothrombin Time 58.2 #H Prothrombin Time Ratio 4.5 INR International Normalized Ratio 6.48 *H Sodium Level 142 Potassium Level 5.1 Chloride Level 102 Carbon Dioxide Level 23 Anion Gap 22 H Blood Urea Nitrogen 52 H Creatinine 9.65 H Glucose Level 96 Calcium Level 8.6 Test 11/14/16 12:58 Bedside Glucose 77 Medications Medications Current Medications Ondansetron HCl (Zofran Inj) 4 mg Q6H PRN IV NAUSEA AND/OR VOMITING; Start at 18:30 Acetaminophen (Tylenol Tab) 650 mg Q6H PRN PO PAIN LEVEL 1-3 OR FEVER Last administered on 11/09/16 00:55; Admin Dose 650 MG; Start 11/08/16 at 18:30 Docusate Sodium (Colace) 100 mg Q12H PRN PO CONSTIPATION; Start 11/08/16 at 18: 30 Diagnostic Test (Pha) (Accu-Chek) 1 ea 02 XX Last administered on 11/13/16 02: 01; Admin Dose 1 EA; Start 11/09/16 at 02:00 Miscellaneous Information 1 ea NOTE XX ; Start 11/08/16 at 19:30 Glucose (Glutose) 15 gm Q15M PRN PO DECREASED GLUCOSE; Start 11/08/16 at 19:30 Glucose (Glutose) 22.5 gm Q15M PRN PO DECREASED GLUCOSE; Start 11/08/16 at 19: 30 Dextrose (D50w Syringe) 25 ml Q15M PRN IV DECREASED GLUCOSE; Start 11/08/16 at 19:30 Dextrose (D50w Syringe) 50 ml Q15M PRN IV DECREASED GLUCOSE; Start 11/08/16 at 19:30 Glucagon (Glucagen) 1 mg Q15M PRN IM DECREASED GLUCOSE; Start 11/08/16 at 19:30 Glucose (Glutose) 15 gm Q15M PRN BUCCAL DECREASED GLUCOSE; Start 11/08/16 at 19 :30 Atorvastatin Calcium (Lipitor) 40 mg QHS PO Last administered on 11/13/16 22: 16; Admin Dose 40 MG; Start 11/09/16 at 21:00 Famotidine (Pepcid) 40 mg HS PO Last administered on 11/13/16 22:18; Admin Dose 40 MG; Start 11/09/16 at 21:00 Fenofibrate (Tricor) 48 mg QAM PO Last administered on 11/14/16 09:47; Admin Dose 48 MG; Start 11/10/16 at 09:00 Folic Acid (Folic Acid) 2 mg DAILY PO Last administered on 11/14/16 09:35; Admin Dose 2 MG; Start 11/10/16 at 09:00 Gabapentin (Neurontin) 100 mg TID PO Last administered on 11/14/16 09:35; Admin Dose 100 MG; Start 11/09/16 at 21:00 Nifedipine (Procardia Xl) 30 mg BID PO Last administered on 11/14/16 09:35; Admin Dose 30 MG; Start 11/09/16 at 13:30 Epoetin César (Epogen (Esrd)) 10,000 units MoWeFr@17 SC Last administered on 17:53; Admin Dose 10,000 UNITS; Start 11/09/16 at 17:00 Albuterol (Ventolin Hfa) 2 puff Q4H PRN INH WHEEZING AND SOB; Start 11/09/16 at 14:30 Celecoxib (Celebrex) 200 mg DAILY PO Last administered on 11/14/16 09:47; Admin Dose 200 MG; Start 11/10/16 at 09:00 Acetaminophen/ Hydrocodone Bitart ([place] (5/325)) 1 tab Q6H PRN PO pain Last administered on 11/13/16 22:17; Admin Dose 1 TAB; Start 11/09/16 at 14:30 Linagliptin (Tradjenta) 5 mg DAILY PO Last administered on 11/14/16 09:35; Admin Dose 5 MG; Start 11/10/16 at 09:00 Prednisone (Prednisone) 1 mg TID PO Last administered on 11/14/16 13:00; Admin Dose 1 MG; Start 11/09/16 at 21:00 Salmeterol Xinafoate/ Fluticasone (Advair 250/50 Diskus) 1 inh BID INH Last administered on 11/14/16 09:46; Admin Dose 1 INH; Start 11/09/16 at 21:00 Warfarin Sodium (Coumadin) 4 mg DAILY@17 PO Last administered on 11/12/16 17: 16; Admin Dose 4 MG; Start 11/10/16 at 17:00; Status Future Hold Collagenase (Santyl) 1 applic DAILY TOP Last administered on 11/14/16 09:47; Admin Dose 1 APPLIC; Start 11/11/16 at 09:00 Collagenase (Santyl) 1 applic DAILY PRN TOP WOUND CARE; Start 11/10/16 at 15:30 Metoprolol Tartrate (Lopressor) 25 mg BID PO Last administered on 11/14/16 09: 36; Admin Dose 25 MG; Start 11/12/16 at 21:00 Lorazepam 0.5 mg 0.5 mg Q6H PRN IV AGITATION/ANXIETY Last administered on 02:26; Admin Dose 0.5 MG; Start 11/12/16 at 16:00 Cefepime HCl (Maxipime 1gm/50 ml (Pmx)) 50 ml @ 100 mls/hr DAILY IVPB ; Start 11/14/16 at 14:00; Status CAROL CORRIGAN M.D. Nov 14, 2016 14:14
[2016-11-14] MEDS ORDERED: CEFEPIME 1GM/50 ML (PMX) 50 ML IVPB SCH (15:15)
[2016-11-14] MEDS: EPOETIN 10000 UNITS/1 ML INJ (ESRD) SC SCH (17:40)
--- NOTE | 2016-11-14 18:20 | PN ---
Date/Time of Note Date/Time of Note DATE: 11/14/16 TIME: 18:12 Assessment/Plan VTE Prophylaxis VTE Prophylaxis Intervention: other Lines/Catheters [facility] Saline Lock Assessment/Plan Problems: (1) Bacteremia Status: Acute Comment: Appreciate input from infectious disease who is managing the antibiotics. Please note that the right IJ thrombosis is a chronic one. In addition she had echocardiography to verify the T AVR status. We will continue to follow. (2) Internal jugular (IJ) vein thromboembolism, chronic Status: Chronic Comment: This is been known for some time and was not altered by the recent C2 dens fracture Qualifiers: Laterality: right Qualified Code: I82.C21 - Internal jugular (IJ) vein thromboembolism, chronic, right (3) Delirium Status: Acute Comment: This is acute and he has not resolved yet. If this persists we will have to do neuroimaging (4) COPD (chronic obstructive pulmonary disease) Status: Chronic Comment: Stable on treatment. Qualifiers: COPD type: unspecified COPD Qualified Code: J44.9 - Chronic obstructive pulmonary disease, unspecified COPD type (5) Sarcoidosis Status: Chronic Comment: Noted. Continue treatment with steroid (6) ESRD (end stage renal disease) on dialysis Status: Chronic Comment: Continue with dialysis including at the present time (7) Diabetes mellitus type 2 in obese Status: Chronic Comment: Adequate control. (8) Hypertension associated with chronic kidney disease due to type 2 diabetes mellitus Status: Chronic Comment: Adequate control. (9) Status post transcatheter aortic valve replacement (TAVR) using bioprosthesis Status: Acute Comment: Noted. Subjective 24 Hr Interval Summary Free Text/Dictation Patient is arousable but not terribly verbal. This is new versus 2 weeks ago Exam/Review of Systems Vital Signs Vitals Vital Signs Date Time Temp Pulse Resp B/P Pulse Ox O2 Delivery O2 Flow Rate FiO2 11/14/16 17:28 2.0 11/14/16 17:20 76 18 11/14/16 15:29 98.3 102/45 100 11/14/16 08:30 Nasal Cannula Intake and Output 11/13/16 11/13/16 11/14/16 15:00 23:00 07:00 Intake Total 600 ml 700 ml Balance 600 ml 700 ml Exam Neck: non-tender Respiratory: clear to auscultation, normal air movement Cardiovascular: irregular rhythm, nl pulses Gastrointestinal: nl liver, spleen, non-tender, soft Results Result Diagram: 11/14/16 0723 11/14/16 0723 Results 24 hrs Laboratory Tests Test 11/13/16 22:06 11/14/16 07:23 11/14/16 09:16 11/14/16 12:58 Bedside Glucose 156 89 77 White Blood Count 8.3 Red Blood Count 3.37 L Hemoglobin 10.4 L Hematocrit 32.9 L Mean Corpuscular Volume 97.6 Mean Corpuscular Hemoglobin 30.9 Mean Corpuscular Hemoglobin Concent 31.6 L Red Cell Distribution Width 16.3 H Platelet Count 149 Mean Platelet Volume 12.6 H Neutrophils % 62.9 Lymphocytes % 24.3 Monocytes % 8.6 Eosinophils % 2.1 Basophils % 0.8 Nucleated Red Blood Cells % 0.4 H Neutrophils # 5.2 Lymphocytes # 2.0 Monocytes # 0.7 Eosinophils # 0.2 Basophils # 0.1 Nucleated Red Blood Cells # 0.0 Prothrombin Time 58.2 #H Prothrombin Time Ratio 4.5 INR International Normalized Ratio 6.48 *H Sodium Level 142 Potassium Level 5.1 Chloride Level 102 Carbon Dioxide Level 23 Anion Gap 22 H Blood Urea Nitrogen 52 H Creatinine 9.65 H Glucose Level 96 Calcium Level 8.6 Test 11/14/16 17:35 Bedside Glucose 119 Medications Medications Current Medications Ondansetron HCl (Zofran Inj) 4 mg Q6H PRN IV NAUSEA AND/OR VOMITING; Start at 18:30 Acetaminophen (Tylenol Tab) 650 mg Q6H PRN PO PAIN LEVEL 1-3 OR FEVER Last administered on 11/09/16 00:55; Admin Dose 650 MG; Start 11/08/16 at 18:30 Docusate Sodium (Colace) 100 mg Q12H PRN PO CONSTIPATION; Start 11/08/16 at 18: 30 Diagnostic Test (Pha) (Accu-Chek) 1 ea 02 XX Last administered on 11/13/16 02: 01; Admin Dose 1 EA; Start 11/09/16 at 02:00 Miscellaneous Information 1 ea NOTE XX ; Start 11/08/16 at 19:30 Glucose (Glutose) 15 gm Q15M PRN PO DECREASED GLUCOSE; Start 11/08/16 at 19:30 Glucose (Glutose) 22.5 gm Q15M PRN PO DECREASED GLUCOSE; Start 11/08/16 at 19: 30 Dextrose (D50w Syringe) 25 ml Q15M PRN IV DECREASED GLUCOSE; Start 11/08/16 at 19:30 Dextrose (D50w Syringe) 50 ml Q15M PRN IV DECREASED GLUCOSE; Start 11/08/16 at 19:30 Glucagon (Glucagen) 1 mg Q15M PRN IM DECREASED GLUCOSE; Start 11/08/16 at 19:30 Glucose (Glutose) 15 gm Q15M PRN BUCCAL DECREASED GLUCOSE; Start 11/08/16 at 19 :30 Atorvastatin Calcium (Lipitor) 40 mg QHS PO Last administered on 11/13/16 22: 16; Admin Dose 40 MG; Start 11/09/16 at 21:00 Famotidine (Pepcid) 40 mg HS PO Last administered on 11/13/16 22:18; Admin Dose 40 MG; Start 11/09/16 at 21:00 Fenofibrate (Tricor) 48 mg QAM PO Last administered on 11/14/16 09:47; Admin Dose 48 MG; Start 11/10/16 at 09:00 Folic Acid (Folic Acid) 2 mg DAILY PO Last administered on 11/14/16 09:35; Admin Dose 2 MG; Start 11/10/16 at 09:00 Gabapentin (Neurontin) 100 mg TID PO Last administered on 11/14/16 09:35; Admin Dose 100 MG; Start 11/09/16 at 21:00 Nifedipine (Procardia Xl) 30 mg BID PO Last administered on 11/14/16 09:35; Admin Dose 30 MG; Start 11/09/16 at 13:30 Epoetin César (Epogen (Esrd)) 10,000 units MoWeFr@17 SC Last administered on 17:40; Admin Dose 10,000 UNITS; Start 11/09/16 at 17:00 Albuterol (Ventolin Hfa) 2 puff Q4H PRN INH WHEEZING AND SOB; Start 11/09/16 at 14:30 Celecoxib (Celebrex) 200 mg DAILY PO Last administered on 11/14/16 09:47; Admin Dose 200 MG; Start 11/10/16 at 09:00 Acetaminophen/ Hydrocodone Bitart ([place] (5/325)) 1 tab Q6H PRN PO pain Last administered on 11/13/16 22:17; Admin Dose 1 TAB; Start 11/09/16 at 14:30 Linagliptin (Tradjenta) 5 mg DAILY PO Last administered on 11/14/16 09:35; Admin Dose 5 MG; Start 11/10/16 at 09:00 Prednisone (Prednisone) 1 mg TID PO Last administered on 11/14/16 13:00; Admin Dose 1 MG; Start 11/09/16 at 21:00 Salmeterol Xinafoate/ Fluticasone (Advair 250/50 Diskus) 1 inh BID INH Last administered on 11/14/16 09:46; Admin Dose 1 INH; Start 11/09/16 at 21:00 Warfarin Sodium (Coumadin) 4 mg DAILY@17 PO Last administered on 11/12/16 17: 16; Admin Dose 4 MG; Start 11/10/16 at 17:00; Status Future Hold Collagenase (Santyl) 1 applic DAILY TOP Last administered on 11/14/16 09:47; Admin Dose 1 APPLIC; Start 11/11/16 at 09:00 Collagenase (Santyl) 1 applic DAILY PRN TOP WOUND CARE; Start 11/10/16 at 15:30 Metoprolol Tartrate (Lopressor) 25 mg BID PO Last administered on 11/14/16 09: 36; Admin Dose 25 MG; Start 11/12/16 at 21:00 Lorazepam 0.5 mg 0.5 mg Q6H PRN IV AGITATION/ANXIETY Last administered on 02:26; Admin Dose 0.5 MG; Start 11/12/16 at 16:00 Piperacillin Sod/ Tazobactam Sod (Zosyn 2.25gm/ 50ml (Pmx)) 50 ml @ 100 mls/hr Q12 IVPB ; Start 11/14/16 at 21:00 TOMER GARCIA MD Nov 14, 2016 18:20
[2016-11-14] MEDS: FAMOTIDINE 20 MG TAB PO SCH (22:21)
[2016-11-14] MEDS: ATORVASTATIN 40 MG TAB PO SCH (22:23)
[2016-11-14] MEDS: PIPER-TAZO 2.25 GM (PMX) 50 ML IVPB SCH (22:23)
[2016-11-15] VITALS (11 sets, daily range): BP systolic 100–137; BP diastolic 53–74; PULSE 70–112; RESP 16–23
[2016-11-15] MEDS: ACCU-CHEK XX SCH (02:00)
[2016-11-15] MEDS: INSULIN ASPART [NOVOLOG] 3 ML PEN SC SCH ×4 (07:55→21:00)
--- NOTE | 2016-11-15 08:10 | CONS ---
Date/Time of Note Date/Time of Note DATE: 11/15/16 TIME: 08:06 Assessment/Plan Assessment/Plan Problems: (1) Bacteremia Status: Acute Comment: cxs are (-) x 5d...?source of original (+)??... cont on Zosyn... no T... nl WBC x sev days (2) Internal jugular (IJ) vein thromboembolism, chronic Status: Chronic Comment: again, is chronic and asx... not suppurative Qualifiers: Laterality: right Qualified Code: I82.C21 - Internal jugular (IJ) vein thromboembolism, chronic, right (3) Delirium Status: Acute Comment: cleared... prob due to sedative/sleeper given (4) Anemia in chronic kidney disease Comment: finished Fe... on EPO (5) ESRD (end stage renal disease) on dialysis Status: Chronic Comment: nas HD without issue... next to be tomorrow Consultation Date/Type/Reason Admit Date/Time Nov 10, 2016 at 15:14 Initial Consult Date 11/09/16 Type of Consultation: neph Referring Provider: SOBEIDA ENRIQUEZ MD 24 HR Interval Summary Free Text/Dictation much more awake/alert... back to baseline... she is frustrated, and wants to get OOB and go home... am not sure why she not being ambulated... remains afeb, feels fine...cxs all (-) x 4-5 d Exam/Review of Systems Vital Signs Vitals Vital Signs Date Time Temp Pulse Resp B/P Pulse Ox O2 Delivery O2 Flow Rate FiO2 11/15/16 07:30 97.9 112 20 100/57 98 11/14/16 22:57 Nasal Cannula 2.0 Intake and Output 11/14/16 11/14/16 11/15/16 15:00 23:00 07:00 Intake Total 910 ml 250 ml Output Total 2500 ml Balance -1590 ml 250 ml Exam Constitutional: alert, oriented Neck: other (in hard collar) Respiratory: clear to auscultation Cardiovascular: irregular rhythm Gastrointestinal: soft Extremities: edema (tr... well fxn AVF in RUE) Results Result Diagram: 11/14/16 0723 11/14/16 0723 Results 24 hrs Laboratory Tests Test 11/14/16 09:16 11/14/16 12:58 11/14/16 17:35 11/14/16 22:36 Bedside Glucose 89 77 119 69 L Test 11/14/16 23:11 11/15/16 04:15 Bedside Glucose 106 80 Medications Medications Current Medications Ondansetron HCl (Zofran Inj) 4 mg Q6H PRN IV NAUSEA AND/OR VOMITING; Start at 18:30 Acetaminophen (Tylenol Tab) 650 mg Q6H PRN PO PAIN LEVEL 1-3 OR FEVER Last administered on 11/09/16 00:55; Admin Dose 650 MG; Start 11/08/16 at 18:30 Docusate Sodium (Colace) 100 mg Q12H PRN PO CONSTIPATION; Start 11/08/16 at 18: 30 Diagnostic Test (Pha) (Accu-Chek) 1 ea 02 XX Last administered on 11/13/16 02: 01; Admin Dose 1 EA; Start 11/09/16 at 02:00 Miscellaneous Information 1 ea NOTE XX ; Start 11/08/16 at 19:30 Glucose (Glutose) 15 gm Q15M PRN PO DECREASED GLUCOSE; Start 11/08/16 at 19:30 Glucose (Glutose) 22.5 gm Q15M PRN PO DECREASED GLUCOSE; Start 11/08/16 at 19: 30 Dextrose (D50w Syringe) 25 ml Q15M PRN IV DECREASED GLUCOSE; Start 11/08/16 at 19:30 Dextrose (D50w Syringe) 50 ml Q15M PRN IV DECREASED GLUCOSE; Start 11/08/16 at 19:30 Glucagon (Glucagen) 1 mg Q15M PRN IM DECREASED GLUCOSE; Start 11/08/16 at 19:30 Glucose (Glutose) 15 gm Q15M PRN BUCCAL DECREASED GLUCOSE; Start 11/08/16 at 19 :30 Atorvastatin Calcium (Lipitor) 40 mg QHS PO Last administered on 11/14/16 22: 23; Admin Dose 40 MG; Start 11/09/16 at 21:00 Famotidine (Pepcid) 40 mg HS PO Last administered on 11/14/16 22:21; Admin Dose 40 MG; Start 11/09/16 at 21:00 Fenofibrate (Tricor) 48 mg QAM PO Last administered on 11/14/16 09:47; Admin Dose 48 MG; Start 11/10/16 at 09:00 Folic Acid (Folic Acid) 2 mg DAILY PO Last administered on 11/14/16 09:35; Admin Dose 2 MG; Start 11/10/16 at 09:00 Gabapentin (Neurontin) 100 mg TID PO Last administered on 11/14/16 22:21; Admin Dose 100 MG; Start 11/09/16 at 21:00 Nifedipine (Procardia Xl) 30 mg BID PO Last administered on 11/14/16 09:35; Admin Dose 30 MG; Start 11/09/16 at 13:30 Epoetin César (Epogen (Esrd)) 10,000 units MoWeFr@17 SC Last administered on 17:40; Admin Dose 10,000 UNITS; Start 11/09/16 at 17:00 Albuterol (Ventolin Hfa) 2 puff Q4H PRN INH WHEEZING AND SOB Last administered on 11/14/16 23:20; Admin Dose 2 PUFF; Start 11/09/16 at 14:30 Celecoxib (Celebrex) 200 mg DAILY PO Last administered on 11/14/16 09:47; Admin Dose 200 MG; Start 11/10/16 at 09:00 Acetaminophen/ Hydrocodone Bitart ([place] (5/325)) 1 tab Q6H PRN PO pain Last administered on 11/13/16 22:17; Admin Dose 1 TAB; Start 11/09/16 at 14:30 Linagliptin (Tradjenta) 5 mg DAILY PO Last administered on 11/14/16 09:35; Admin Dose 5 MG; Start 11/10/16 at 09:00 Prednisone (Prednisone) 1 mg TID PO Last administered on 11/14/16 23:19; Admin Dose 1 MG; Start 11/09/16 at 21:00 Salmeterol Xinafoate/ Fluticasone (Advair 250/50 Diskus) 1 inh BID INH Last administered on 11/14/16 22:19; Admin Dose 1 INH; Start 11/09/16 at 21:00 Warfarin Sodium (Coumadin) 4 mg DAILY@17 PO Last administered on 11/12/16 17: 16; Admin Dose 4 MG; Start 11/10/16 at 17:00; Status Future Hold Collagenase (Santyl) 1 applic DAILY TOP Last administered on 11/14/16 09:47; Admin Dose 1 APPLIC; Start 11/11/16 at 09:00 Collagenase (Santyl) 1 applic DAILY PRN TOP WOUND CARE; Start 11/10/16 at 15:30 Metoprolol Tartrate (Lopressor) 25 mg BID PO Last administered on 11/14/16 22: 22; Admin Dose 25 MG; Start 11/12/16 at 21:00 Lorazepam 0.5 mg 0.5 mg Q6H PRN IV AGITATION/ANXIETY Last administered on 02:26; Admin Dose 0.5 MG; Start 11/12/16 at 16:00 Piperacillin Sod/ Tazobactam Sod (Zosyn 2.25gm/ 50ml (Pmx)) 50 ml @ 100 mls/hr Q12 IVPB Last administered on 11/14/16 22:23; Admin Dose 100 MLS/HR; Start at 21:00 NICO HAY MD Nov 15, 2016 08:10
[2016-11-15] MEDS: METOPROLOL 25 MG TAB PO SCH ×2 (08:24→21:27)
[2016-11-15] MEDS: NIFEdipine (XL) 30 MG TAB PO SCH ×2 (08:25→21:27)
[2016-11-15] MEDS: SEVELAMER CARBONATE 0.8 GM PKT PO SCH ×3 (08:38→17:55)
[2016-11-15] MEDS: PIPER-TAZO 2.25 GM (PMX) 50 ML IVPB SCH ×2 (08:39→21:23)
[2016-11-15] MEDS: CELECOXIB 200 MG CAP PO SCH (08:47)
[2016-11-15] MEDS: FOLIC ACID 1 MG TAB PO SCH (08:48)
[2016-11-15] MEDS: GABAPENTIN 100 MG CAP PO SCH ×3 (08:48→21:26)
[2016-11-15] MEDS: predniSONE 1 MG TAB PO SCH ×3 (08:48→21:26)
[2016-11-15] MEDS: LINAGLIPTIN 5 MG TABLET PO SCH (08:48)
[2016-11-15] MEDS: SALMETEROL/FLUTICASONE 250/50 INHA INH SCH ×2 (08:50→21:23)
--- NOTE | 2016-11-15 12:43 | CONS ---
Date/Time of Note Date/Time of Note DATE: 11/15/16 TIME: 12:35 Assessment/Plan Assessment/Plan Chief Complaint/Hosp Course assessment/impression - polymicrobial bacteremia due to E. coli, marisela, also has bacillus spp. blood culture from 11/08/2016, contaminant vs. pathogen. Depends on the species, workup in progress. Possibly due to colitis - diarrhea, abd/pel CT did not show acute process. 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 head CT unremarkable - breast mass seen on CT, evaluated by Dr. Nickerson - ESRD via AVF in RUE - displaced Fx of C2 spine, on neck collar - h/o AVR at [facility] for ?aortic valve stenosis. Transthoracic echo was negative for vegetation on 11/11/2016 - DM - COPD - sacrcoidosis - CAD, CHF - h/o diverticulosis - h/o hemorrhoids - h/o colonic AVM recommendations - pending results: sensitivity of eggerthella in her blood culture (send out test, requested to Tatiana, a shipping track supervisor on 11/14/2016), speciation of bacillus species in her blood culture (send out test, requested on 11/13/2016), sensitivity of pseudomonas in stool culture - continue pip/tazo; may adjust antibiotic based on the sensitivity results management d/w Pt, her daughter Problems: Consultation Date/Type/Reason Admit Date/Time Nov 10, 2016 at 15:14 Initial Consult Date 11/10/16 Type of Consultation: ID Referring Provider: SOBEIDA ENRIQUEZ MD 24 HR Interval Summary Constitutional: improved Detailed Summary Eyes: no complaints ENT: other (chronic pain of R neck) Respiratory: no complaints Cardiovascular: no complaints Gastrointestinal: diarrhea, passing stool, No nausea, No pain, No vomiting Genitourinary: other (anuric) Musculoskeletal: bone/joint pain (RUE, R deltoid), neck pain (R neck) Skin: no complaints Neurologic: other (does not want to take sedative) Exam/Review of Systems Vital Signs Vitals Vital Signs Date Time Temp Pulse Resp B/P Pulse Ox O2 Delivery O2 Flow Rate FiO2 11/15/16 12:25 108 11/15/16 11:01 98.2 16 116/56 97 11/14/16 22:57 Nasal Cannula 2.0 Intake and Output 11/14/16 11/14/16 11/15/16 15:00 23:00 07:00 Intake Total 910 ml 250 ml Output Total 2500 ml Balance -1590 ml 250 ml Exam Constitutional: frail, other (more awake today but not at her baseline) Psych: no complaints Head: atraumatic, normocephalic Eyes: nl conjunctiva, nl lids ENMT: nl external ears & nose, nl nasal mucosa & septum Neck: other (+brace, R side of the neck is diffusely TTP) Respiratory: diminished breath sounds Cardiovascular: nl pulses, regular rate and rhythm Gastrointestinal: non-tender, soft, No distended, No tender Musculoskeletal: joint tenderness (R deltoid is TTP) Extremities: No edema 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: confused (does not recall the events from 2-3 days ago), nl speech Skin: nl turgor Results Result Diagram: 11/14/1672211/14/16 0723 Results 24 hrs Laboratory Tests Test 11/14/16 12:58 11/14/16 17:35 11/14/16 22:36 11/14/16 23:11 Bedside Glucose 77 119 69 L 106 Test 11/15/16 04:15 11/15/16 08:20 Bedside Glucose 80 82 Medications Medications Current Medications Ondansetron HCl (Zofran Inj) 4 mg Q6H PRN IV NAUSEA AND/OR VOMITING; Start at 18:30 Acetaminophen (Tylenol Tab) 650 mg Q6H PRN PO PAIN LEVEL 1-3 OR FEVER Last administered on 11/09/16 00:55; Admin Dose 650 MG; Start 11/08/16 at 18:30 Docusate Sodium (Colace) 100 mg Q12H PRN PO CONSTIPATION; Start 11/08/16 at 18: 30 Diagnostic Test (Pha) (Accu-Chek) 1 ea 02 XX Last administered on 11/13/16 02: 01; Admin Dose 1 EA; Start 11/09/16 at 02:00 Miscellaneous Information 1 ea NOTE XX ; Start 11/08/16 at 19:30 Glucose (Glutose) 15 gm Q15M PRN PO DECREASED GLUCOSE; Start 11/08/16 at 19:30 Glucose (Glutose) 22.5 gm Q15M PRN PO DECREASED GLUCOSE; Start 11/08/16 at 19: 30 Dextrose (D50w Syringe) 25 ml Q15M PRN IV DECREASED GLUCOSE; Start 11/08/16 at 19:30 Dextrose (D50w Syringe) 50 ml Q15M PRN IV DECREASED GLUCOSE; Start 11/08/16 at 19:30 Glucagon (Glucagen) 1 mg Q15M PRN IM DECREASED GLUCOSE; Start 11/08/16 at 19:30 Glucose (Glutose) 15 gm Q15M PRN BUCCAL DECREASED GLUCOSE; Start 11/08/16 at 19 :30 Atorvastatin Calcium (Lipitor) 40 mg QHS PO Last administered on 11/14/16 22: 23; Admin Dose 40 MG; Start 11/09/16 at 21:00 Famotidine (Pepcid) 40 mg HS PO Last administered on 11/14/16 22:21; Admin Dose 40 MG; Start 11/09/16 at 21:00 Fenofibrate (Tricor) 48 mg QAM PO Last administered on 11/14/16 09:47; Admin Dose 48 MG; Start 11/10/16 at 09:00 Folic Acid (Folic Acid) 2 mg DAILY PO Last administered on 11/15/16 08:48; Admin Dose 2 MG; Start 11/10/16 at 09:00 Gabapentin (Neurontin) 100 mg TID PO Last administered on 11/15/16 08:48; Admin Dose 100 MG; Start 11/09/16 at 21:00 Nifedipine (Procardia Xl) 30 mg BID PO Last administered on 11/14/16 09:35; Admin Dose 30 MG; Start 11/09/16 at 13:30 Epoetin César (Epogen (Esrd)) 10,000 units MoWeFr@17 SC Last administered on 17:40; Admin Dose 10,000 UNITS; Start 11/09/16 at 17:00 Albuterol (Ventolin Hfa) 2 puff Q4H PRN INH WHEEZING AND SOB Last administered on 11/14/16 23:20; Admin Dose 2 PUFF; Start 11/09/16 at 14:30 Celecoxib (Celebrex) 200 mg DAILY PO Last administered on 11/15/16 08:47; Admin Dose 200 MG; Start 11/10/16 at 09:00 Acetaminophen/ Hydrocodone Bitart ([place] (5/325)) 1 tab Q6H PRN PO pain Last administered on 11/13/16 22:17; Admin Dose 1 TAB; Start 11/09/16 at 14:30 Linagliptin (Tradjenta) 5 mg DAILY PO Last administered on 11/15/16 08:48; Admin Dose 5 MG; Start 11/10/16 at 09:00 Prednisone (Prednisone) 1 mg TID PO Last administered on 11/15/16 08:48; Admin Dose 1 MG; Start 11/09/16 at 21:00 Salmeterol Xinafoate/ Fluticasone (Advair 250/50 Diskus) 1 inh BID INH Last administered on 11/15/16 08:50; Admin Dose 1 INH; Start 11/09/16 at 21:00 Warfarin Sodium (Coumadin) 4 mg DAILY@17 PO Last administered on 11/12/16 17: 16; Admin Dose 4 MG; Start 11/10/16 at 17:00; Status Future Hold Collagenase (Santyl) 1 applic DAILY TOP Last administered on 11/14/16 09:47; Admin Dose 1 APPLIC; Start 11/11/16 at 09:00 Collagenase (Santyl) 1 applic DAILY PRN TOP WOUND CARE; Start 11/10/16 at 15:30 Metoprolol Tartrate (Lopressor) 25 mg BID PO Last administered on 11/14/16 22: 22; Admin Dose 25 MG; Start 11/12/16 at 21:00 Lorazepam 0.5 mg 0.5 mg Q6H PRN IV AGITATION/ANXIETY Last administered on 02:26; Admin Dose 0.5 MG; Start 11/12/16 at 16:00 Piperacillin Sod/ Tazobactam Sod (Zosyn 2.25gm/ 50ml (Pmx)) 50 ml @ 100 mls/hr Q12 IVPB Last administered on 11/15/16 08:39; Admin Dose 100 MLS/HR; Start at 21:00 CAROL SETH M.D. Nov 15, 2016 12:43
[2016-11-15] MEDS: FENOFIBRATE 48 MG TAB PO SCH (12:44)
[2016-11-15] MEDS: COLLAGENASE 30 GM TUBE TOP SCH (12:48)
--- NOTE | 2016-11-15 17:54 | PN ---
Date/Time of Note Date/Time of Note DATE: 11/15/16 TIME: 17:51 Assessment/Plan VTE Prophylaxis VTE Prophylaxis Intervention: other Lines/Catheters IV Catheter Type (from Nrsg): Saline Lock Assessment/Plan Problems: (1) Bacteremia Status: Acute Comment: This appears to be clearing. As per infectious diseases some speciation questions persist which will help guide antibiotic management. (2) Internal jugular (IJ) vein thromboembolism, chronic Status: Chronic Comment: This is chronic and I am in agreement with nephrology about this being not suppurative Qualifiers: Laterality: right Qualified Code: I82.C21 - Internal jugular (IJ) vein thromboembolism, chronic, right (3) Delirium Status: Resolved Comment: This is resolved. Please note this patient becomes rather disoriented with usage of benzodiazepines and narcotics (4) COPD (chronic obstructive pulmonary disease) Status: Chronic Comment: Stable and breathing well compensated on current medication regimen Qualifiers: COPD type: unspecified COPD Qualified Code: J44.9 - Chronic obstructive pulmonary disease, unspecified COPD type (5) Sarcoidosis Status: Chronic Comment: Noted and stable. Continue steroids at physiologic replacement dose (6) ESRD (end stage renal disease) on dialysis Status: Chronic Comment: Due for hemodialysis tomorrow stable (7) Diabetes mellitus type 2 in obese Status: Chronic Comment: Adequate control. (8) Hypertension associated with chronic kidney disease due to type 2 diabetes mellitus Status: Chronic Comment: Adequate control on current medication regimen (9) Obstructive sleep apnea Status: Chronic Comment: Patient declines CPAP (10) Hyperlipidemia Status: Chronic Comment: Continue statin therapy Qualifiers: Hyperlipidemia type: pure hypercholesterolemia Qualified Code: E78.00 - Pure hypercholesterolemia (11) Atrial fibrillation Status: Chronic Comment: Noted and controlled Qualifiers: Atrial fibrillation type: chronic Qualified Code: I48.2 - Chronic atrial fibrillation (12) Open scalp wound Status: Acute Comment: Secondary to the collar. Wound management team is assisting Qualifiers: Encounter type: subsequent encounter Open wound type: unspecified Qualified Code: S01.00XD - Open wound of scalp, unspecified wound type, subsequent encounter Subjective 24 Hr Interval Summary Free Text/Dictation Patient much more awake and alert today fully conversant and oriented Constitutional: no complaints ENT: no complaints Respiratory: no complaints Cardiovascular: no complaints Exam/Review of Systems Vital Signs Vitals Vital Signs Date Time Temp Pulse Resp B/P Pulse Ox O2 Delivery O2 Flow Rate FiO2 8/1/17 16:43 100 11/15/16 15:12 98.4 22 125/53 97 11/14/16 22:57 Nasal Cannula 2.0 Intake and Output 11/14/16 11/14/16 11/15/16 15:00 23:00 07:00 Intake Total 910 ml 250 ml Output Total 2500 ml Balance -1590 ml 250 ml Exam Constitutional: alert, oriented Head: other (Wound on back of scalp from neck brace persists.) Neck: non-tender Respiratory: clear to auscultation, normal air movement Cardiovascular: irregular rhythm, nl pulses Gastrointestinal: nl liver, spleen, non-tender, soft Results Result Diagram: 11/14/1672211/14/16722 Results 24 hrs Laboratory Tests Test 11/14/16 22:36 11/14/16 23:11 11/15/16 04:15 11/15/16 08:20 Bedside Glucose 69 L 106 80 82 Test 11/15/16 12:41 Bedside Glucose 115 Medications Medications Current Medications Ondansetron HCl (Zofran Inj) 4 mg Q6H PRN IV NAUSEA AND/OR VOMITING; Start at 18:30 Acetaminophen (Tylenol Tab) 650 mg Q6H PRN PO PAIN LEVEL 1-3 OR FEVER Last administered on 11/09/16 00:55; Admin Dose 650 MG; Start 11/08/16 at 18:30 Docusate Sodium (Colace) 100 mg Q12H PRN PO CONSTIPATION; Start 11/08/16 at 18: 30 Diagnostic Test (Pha) (Accu-Chek) 1 ea 02 XX Last administered on 11/13/16 02: 01; Admin Dose 1 EA; Start 11/09/16 at 02:00 Miscellaneous Information 1 ea NOTE XX ; Start 11/08/16 at 19:30 Glucose (Glutose) 15 gm Q15M PRN PO DECREASED GLUCOSE; Start 11/08/16 at 19:30 Glucose (Glutose) 22.5 gm Q15M PRN PO DECREASED GLUCOSE; Start 11/08/16 at 19: 30 Dextrose (D50w Syringe) 25 ml Q15M PRN IV DECREASED GLUCOSE; Start 11/08/16 at 19:30 Dextrose (D50w Syringe) 50 ml Q15M PRN IV DECREASED GLUCOSE; Start 11/08/16 at 19:30 Glucagon (Glucagen) 1 mg Q15M PRN IM DECREASED GLUCOSE; Start 11/08/16 at 19:30 Glucose (Glutose) 15 gm Q15M PRN BUCCAL DECREASED GLUCOSE; Start 11/08/16 at 19 :30 Atorvastatin Calcium (Lipitor) 40 mg QHS PO Last administered on 11/14/16 22: 23; Admin Dose 40 MG; Start 11/09/16 at 21:00 Famotidine (Pepcid) 40 mg HS PO Last administered on 11/14/16 22:21; Admin Dose 40 MG; Start 11/09/16 at 21:00 Fenofibrate (Tricor) 48 mg QAM PO Last administered on 11/15/16 12:44; Admin Dose 48 MG; Start 11/10/16 at 09:00 Folic Acid (Folic Acid) 2 mg DAILY PO Last administered on 11/15/16 08:48; Admin Dose 2 MG; Start 11/10/16 at 09:00 Gabapentin (Neurontin) 100 mg TID PO Last administered on 11/15/16 12:43; Admin Dose 100 MG; Start 11/09/16 at 21:00 Nifedipine (Procardia Xl) 30 mg BID PO Last administered on 11/14/16 09:35; Admin Dose 30 MG; Start 11/09/16 at 13:30 Epoetin César (Epogen (Esrd)) 10,000 units MoWeFr@17 SC Last administered on 17:40; Admin Dose 10,000 UNITS; Start 11/09/16 at 17:00 Albuterol (Ventolin Hfa) 2 puff Q4H PRN INH WHEEZING AND SOB Last administered on 11/14/16 23:20; Admin Dose 2 PUFF; Start 11/09/16 at 14:30 Celecoxib (Celebrex) 200 mg DAILY PO Last administered on 11/15/16 08:47; Admin Dose 200 MG; Start 11/10/16 at 09:00 Acetaminophen/ Hydrocodone Bitart ([place] (5/325)) 1 tab Q6H PRN PO pain Last administered on 11/13/16 22:17; Admin Dose 1 TAB; Start 11/09/16 at 14:30 Linagliptin (Tradjenta) 5 mg DAILY PO Last administered on 11/15/16 08:48; Admin Dose 5 MG; Start 11/10/16 at 09:00 Prednisone (Prednisone) 1 mg TID PO Last administered on 11/15/16 12:43; Admin Dose 1 MG; Start 11/09/16 at 21:00 Salmeterol Xinafoate/ Fluticasone (Advair 250/50 Diskus) 1 inh BID INH Last administered on 11/15/16 08:50; Admin Dose 1 INH; Start 11/09/16 at 21:00 Warfarin Sodium (Coumadin) 4 mg DAILY@17 PO Last administered on 11/12/16 17: 16; Admin Dose 4 MG; Start 11/10/16 at 17:00; Status Future Hold Collagenase (Santyl) 1 applic DAILY TOP Last administered on 11/15/16 12:48; Admin Dose 1 APPLIC; Start 11/11/16 at 09:00 Collagenase (Santyl) 1 applic DAILY PRN TOP WOUND CARE; Start 11/10/16 at 15:30 Metoprolol Tartrate (Lopressor) 25 mg BID PO Last administered on 11/14/16 22: 22; Admin Dose 25 MG; Start 11/12/16 at 21:00 Lorazepam 0.5 mg 0.5 mg Q6H PRN IV AGITATION/ANXIETY Last administered on 02:26; Admin Dose 0.5 MG; Start 11/12/16 at 16:00 Piperacillin Sod/ Tazobactam Sod (Zosyn 2.25gm/ 50ml (Pmx)) 50 ml @ 100 mls/hr Q12 IVPB Last administered on 11/15/16 08:39; Admin Dose 100 MLS/HR; Start at 21:00 Phytonadione (Vitamin K) 5 mg ONCE ONCE IM ; Start 11/15/16 at 18:00; Stop at 18:01 TOMER GARCIA MD Nov 15, 2016 17:54
[2016-11-15] MEDS ORDERED: PHYTONADIONE 10 MG/ML INJ IM ONE (18:00)
[2016-11-15] MEDS: FAMOTIDINE 20 MG TAB PO SCH (21:26)
[2016-11-15] MEDS: ATORVASTATIN 40 MG TAB PO SCH (21:26)
[2016-11-16] VITALS (17 sets, daily range): BP systolic 113–145; BP diastolic 48–74; PULSE 72–92; RESP 20–23
[2016-11-16] MEDS: ACCU-CHEK XX SCH (02:00)
[2016-11-16] MEDS: SEVELAMER CARBONATE 0.8 GM PKT PO SCH ×3 (07:55→18:27)
[2016-11-16] MEDS: INSULIN ASPART [NOVOLOG] 3 ML PEN SC SCH ×4 (07:55→21:00)
[2016-11-16 08:26] LABS: BASOPHIL # 0.1 10^3/ul (0.0-0.1); BASOPHILS % 0.5 % (0.0-2.0); EOSINOPHILS # 0.3 10^3/ul (0.0-0.5); EOSINOPHILS % 2.8 % (0.0-7.0); HEMATOCRIT 32.4 % (37.0-47.0); HEMOGLOBIN 10.3 g/dl (12.0-16.0); LYMPHOCYTES # 2.4 10^3/ul (0.8-2.9); LYMPHOCYTES % 24.2 % (15.0-51.0); MEAN CORPUSCULAR HEMOGLOBIN 29.2 pg (29.0-33.0); MEAN CORPUSCULAR HGB CONC 31.8 g/dl (32.0-37.0); MEAN CORPUSCULAR VOLUME 91.8 fl (82.0-101.0); MEAN PLATELET VOLUME 11.3 fl (7.4-10.4); MONOCYTE # 0.7 10^3/ul (0.3-0.9); MONOCYTES % 7.1 % (0.0-11.0); NEUTROPHIL # 6.3 10^3/ul (1.6-7.5); NEUTROPHILS % 64.1 % (39.0-77.0); PLATELET COUNT 196 10^3/UL (140-415); RED BLOOD COUNT 3.53 10^6/ul (4.20-5.40); WHITE BLOOD COUNT 9.8 10^3/ul (4.8-10.8)
--- NOTE | 2016-11-16 09:00 | CONS ---
Date/Time of Note Date/Time of Note DATE: 11/16/16 TIME: 08:58 Assessment/Plan Assessment/Plan Additional Assessment/Plan 1. ESRD, to have HD today 2. Bacteremia, Rev Dr. Pardo's note, await final ID decision re abx 3. Recent cx spine fx, stable. 4. Anemia has been stable Consultation Date/Type/Reason Admit Date/Time Nov 10, 2016 at 15:14 Initial Consult Date 11/10/16 Type of Consultation: ID Referring Provider: SOBEIDA ENRIQUEZ MD Detailed Summary Respiratory: No cough, No shortness of breath Cardiovascular: No chest pain Gastrointestinal: no complaints Genitourinary: no complaints Musculoskeletal: neck pain (mild) Exam/Review of Systems Vital Signs Vitals Vital Signs Date Time Temp Pulse Resp B/P Pulse Ox O2 Delivery O2 Flow Rate FiO2 11/16/16 08:27 84 11/16/16 07:55 98.3 20 131/58 98 11/16/16 00:50 2.0 11/15/16 20:00 Nasal Cannula Intake and Output 11/15/16 11/15/16 11/16/16 15:00 23:00 07:00 Intake Total 200 ml 200 ml Balance 200 ml 200 ml Exam Neck: No jvd Respiratory: clear to auscultation Cardiovascular: regular rate and rhythm Gastrointestinal: soft Extremities: No tenderness (calves bilat) Results Result Diagram: 11/16/16 0745 11/14/16 0723 Results 24 hrs Laboratory Tests Test 11/15/16 12:41 11/15/16 17:53 11/15/16 21:25 11/16/16 01:57 Bedside Glucose 115 134 124 97 Test 11/16/16 07:45 11/16/16 08:31 White Blood Count 9.8 Red Blood Count 3.53 L Hemoglobin 10.3 L Hematocrit 32.4 L Mean Corpuscular Volume 91.8 Mean Corpuscular Hemoglobin 29.2 Mean Corpuscular Hemoglobin Concent 31.8 L Red Cell Distribution Width 16.0 H Platelet Count 196 # Mean Platelet Volume 11.3 H Neutrophils % 64.1 Lymphocytes % 24.2 Monocytes % 7.1 Eosinophils % 2.8 Basophils % 0.5 Nucleated Red Blood Cells % 0.0 Neutrophils # 6.3 Lymphocytes # 2.4 Monocytes # 0.7 Eosinophils # 0.3 Basophils # 0.1 Nucleated Red Blood Cells # 0.0 Bedside Glucose 87 Medications Medications Current Medications Ondansetron HCl (Zofran Inj) 4 mg Q6H PRN IV NAUSEA AND/OR VOMITING; Start at 18:30 Acetaminophen (Tylenol Tab) 650 mg Q6H PRN PO PAIN LEVEL 1-3 OR FEVER Last administered on 11/09/16 00:55; Admin Dose 650 MG; Start 11/08/16 at 18:30 Docusate Sodium (Colace) 100 mg Q12H PRN PO CONSTIPATION; Start 11/08/16 at 18: 30 Diagnostic Test (Pha) (Accu-Chek) 1 ea 02 XX Last administered on 11/13/16 02: 01; Admin Dose 1 EA; Start 11/09/16 at 02:00 Miscellaneous Information 1 ea NOTE XX ; Start 11/08/16 at 19:30 Glucose (Glutose) 15 gm Q15M PRN PO DECREASED GLUCOSE; Start 11/08/16 at 19:30 Glucose (Glutose) 22.5 gm Q15M PRN PO DECREASED GLUCOSE; Start 11/08/16 at 19: 30 Dextrose (D50w Syringe) 25 ml Q15M PRN IV DECREASED GLUCOSE; Start 11/08/16 at 19:30 Dextrose (D50w Syringe) 50 ml Q15M PRN IV DECREASED GLUCOSE; Start 11/08/16 at 19:30 Glucagon (Glucagen) 1 mg Q15M PRN IM DECREASED GLUCOSE; Start 11/08/16 at 19:30 Glucose (Glutose) 15 gm Q15M PRN BUCCAL DECREASED GLUCOSE; Start 11/08/16 at 19 :30 Atorvastatin Calcium (Lipitor) 40 mg QHS PO Last administered on 11/15/16 21:26 ; Admin Dose 40 MG; Start 11/09/16 at 21:00 Famotidine (Pepcid) 40 mg HS PO Last administered on 11/15/16 21:26; Admin Dose 40 MG; Start 11/09/16 at 21:00 Fenofibrate (Tricor) 48 mg QAM PO Last administered on 11/15/16 12:44; Admin Dose 48 MG; Start 11/10/16 at 09:00 Folic Acid (Folic Acid) 2 mg DAILY PO Last administered on 11/15/16 08:48; Admin Dose 2 MG; Start 11/10/16 at 09:00 Gabapentin (Neurontin) 100 mg TID PO Last administered on 11/15/16 21:26; Admin Dose 100 MG; Start 11/09/16 at 21:00 Nifedipine (Procardia Xl) 30 mg BID PO Last administered on 11/15/16 21:27; Admin Dose 30 MG; Start 11/09/16 at 13:30 Epoetin César (Epogen (Esrd)) 10,000 units MoWeFr@17 SC Last administered on 17:40; Admin Dose 10,000 UNITS; Start 11/09/16 at 17:00 Albuterol (Ventolin Hfa) 2 puff Q4H PRN INH WHEEZING AND SOB Last administered on 11/14/16 23:20; Admin Dose 2 PUFF; Start 11/09/16 at 14:30 Celecoxib (Celebrex) 200 mg DAILY PO Last administered on 11/15/16 08:47; Admin Dose 200 MG; Start 11/10/16 at 09:00 Acetaminophen/ Hydrocodone Bitart ([place] (5/325)) 1 tab Q6H PRN PO pain Last administered on 11/13/16 22:17; Admin Dose 1 TAB; Start 11/09/16 at 14:30 Linagliptin (Tradjenta) 5 mg DAILY PO Last administered on 11/15/16 08:48; Admin Dose 5 MG; Start 11/10/16 at 09:00 Prednisone (Prednisone) 1 mg TID PO Last administered on 11/15/16 21:26; Admin Dose 1 MG; Start 11/09/16 at 21:00 Salmeterol Xinafoate/ Fluticasone (Advair 250/50 Diskus) 1 inh BID INH Last administered on 11/15/16 21:23; Admin Dose 1 INH; Start 11/09/16 at 21:00 Warfarin Sodium (Coumadin) 4 mg DAILY@17 PO Last administered on 11/12/16 17: 16; Admin Dose 4 MG; Start 11/10/16 at 17:00; Status Future Hold Collagenase (Santyl) 1 applic DAILY TOP Last administered on 11/15/16 12:48; Admin Dose 1 APPLIC; Start 11/11/16 at 09:00 Collagenase (Santyl) 1 applic DAILY PRN TOP WOUND CARE; Start 11/10/16 at 15:30 Metoprolol Tartrate (Lopressor) 25 mg BID PO Last administered on 11/15/16 21: 27; Admin Dose 25 MG; Start 11/12/16 at 21:00 Lorazepam 0.5 mg 0.5 mg Q6H PRN IV AGITATION/ANXIETY Last administered on 02:26; Admin Dose 0.5 MG; Start 11/12/16 at 16:00 Piperacillin Sod/ Tazobactam Sod (Zosyn 2.25gm/ 50ml (Pmx)) 50 ml @ 100 mls/hr Q12 IVPB Last administered on 11/15/16 21:23; Admin Dose 100 MLS/HR; Start at 21:00 ARISTIDES WATKINS MD Nov 16, 2016 09:00
--- NOTE | 2016-11-16 09:53 | CONS ---
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 blood culture from 11/08/2016, this might be a contaminant vs. pathogen: it depends on the species; workup in progress. - diarrhea, abd/pel CT did not show acute process. 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 head CT unremarkable - breast mass seen on CT, evaluated by Dr. Nickerson - ESRD via AVF in RUE - displaced Fx of C2 spine, on neck collar - h/o AVR at [facility] for ?aortic valve stenosis. Transthoracic echo was negative for vegetation on 11/11/2016 - DM - COPD - sacrcoidosis - CAD, CHF - h/o diverticulosis - h/o hemorrhoids - h/o colonic AVM recommendations - pending results: sensitivity of eggerthella in her blood culture (send-out test, requested to Tatiana, a avionics supervisor on 11/14/2016), it is usually sensitive to beta-lactam/beta-lactamase inhibitor combination; speciation of bacillus species in her blood culture (send out test, requested on 11/13/2016); sensitivity of pseudomonas in stool culture (in process) - continue pip/tazo; may adjust antibiotic based on the sensitivity result of pseudomonas, it will become available tomorrow afternoon according to Adam at micro lab. The duration of antibiotic will be through 11/23/2016 - ordered case management consult for rehab placement - this was discussed with Dr. Welch management d/w Pt, Adam [place]rieta at [facility] lab Problems: Consultation Date/Type/Reason Admit Date/Time Nov 10, 2016 at 15:14 Initial Consult Date 11/10/16 Type of Consultation: ID Referring Provider: SOBEIDA ENRIQUEZ MD 24 HR Interval Summary Constitutional: other (no new complaints) Detailed Summary Eyes: no complaints ENT: other (R neck pain) Respiratory: no complaints Cardiovascular: no complaints Gastrointestinal: diarrhea, passing stool Genitourinary: other (anuric) Musculoskeletal: restricted range of motion (RUE) Skin: no complaints Neurologic: focal-weakness (RUE (due to pain)) Exam/Review of Systems Vital Signs Vitals Vital Signs Date Time Temp Pulse Resp B/P Pulse Ox O2 Delivery O2 Flow Rate FiO2 11/16/16 08:27 84 11/16/16 07:55 98.3 20 131/58 98 11/16/16 00:50 2.0 11/15/16 20:00 Nasal Cannula Intake and Output 11/15/16 11/15/16 11/16/16 15:00 23:00 07:00 Intake Total 200 ml 200 ml Balance 200 ml 200 ml Exam Constitutional: alert, frail Psych: nl mood/affect Head: atraumatic, normocephalic Eyes: nl lids, other (cataract), No icteric Neck: other (collar) Cardiovascular: nl pulses, regular rate and rhythm Gastrointestinal: non-tender, soft, No distended, No tender Musculoskeletal: range of motion (around shoulder, limited) Extremities: normal pulses, No edema 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: nl speech, No confused, No lethargic Skin: nl turgor Results Result Diagram: 11/16/16 0745 11/14/16 0723 Results 24 hrs Laboratory Tests Test 11/15/16 12:41 11/15/16 17:53 11/15/16 21:25 11/16/16 01:57 Bedside Glucose 115 134 124 97 Test 11/16/16 07:45 11/16/16 08:31 White Blood Count 9.8 Red Blood Count 3.53 L Hemoglobin 10.3 L Hematocrit 32.4 L Mean Corpuscular Volume 91.8 Mean Corpuscular Hemoglobin 29.2 Mean Corpuscular Hemoglobin Concent 31.8 L Red Cell Distribution Width 16.0 H Platelet Count 196 # Mean Platelet Volume 11.3 H Neutrophils % 64.1 Lymphocytes % 24.2 Monocytes % 7.1 Eosinophils % 2.8 Basophils % 0.5 Nucleated Red Blood Cells % 0.0 Neutrophils # 6.3 Lymphocytes # 2.4 Monocytes # 0.7 Eosinophils # 0.3 Basophils # 0.1 Nucleated Red Blood Cells # 0.0 Bedside Glucose 87 Medications Medications Current Medications Ondansetron HCl (Zofran Inj) 4 mg Q6H PRN IV NAUSEA AND/OR VOMITING; Start at 18:30 Acetaminophen (Tylenol Tab) 650 mg Q6H PRN PO PAIN LEVEL 1-3 OR FEVER Last administered on 11/09/16 00:55; Admin Dose 650 MG; Start 11/08/16 at 18:30 Docusate Sodium (Colace) 100 mg Q12H PRN PO CONSTIPATION; Start 11/08/16 at 18: 30 Diagnostic Test (Pha) (Accu-Chek) 1 ea 02 XX Last administered on 11/13/16 02: 01; Admin Dose 1 EA; Start 11/09/16 at 02:00 Miscellaneous Information 1 ea NOTE XX ; Start 11/08/16 at 19:30 Glucose (Glutose) 15 gm Q15M PRN PO DECREASED GLUCOSE; Start 11/08/16 at 19:30 Glucose (Glutose) 22.5 gm Q15M PRN PO DECREASED GLUCOSE; Start 11/08/16 at 19: 30 Dextrose (D50w Syringe) 25 ml Q15M PRN IV DECREASED GLUCOSE; Start 11/08/16 at 19:30 Dextrose (D50w Syringe) 50 ml Q15M PRN IV DECREASED GLUCOSE; Start 11/08/16 at 19:30 Glucagon (Glucagen) 1 mg Q15M PRN IM DECREASED GLUCOSE; Start 11/08/16 at 19:30 Glucose (Glutose) 15 gm Q15M PRN BUCCAL DECREASED GLUCOSE; Start 11/08/16 at 19 :30 Atorvastatin Calcium (Lipitor) 40 mg QHS PO Last administered on 11/15/16 21:26 ; Admin Dose 40 MG; Start 11/09/16 at 21:00 Famotidine (Pepcid) 40 mg HS PO Last administered on 11/15/16 21:26; Admin Dose 40 MG; Start 11/09/16 at 21:00 Fenofibrate (Tricor) 48 mg QAM PO Last administered on 11/15/16 12:44; Admin Dose 48 MG; Start 11/10/16 at 09:00 Folic Acid (Folic Acid) 2 mg DAILY PO Last administered on 11/15/16 08:48; Admin Dose 2 MG; Start 11/10/16 at 09:00 Gabapentin (Neurontin) 100 mg TID PO Last administered on 11/15/16 21:26; Admin Dose 100 MG; Start 11/09/16 at 21:00 Nifedipine (Procardia Xl) 30 mg BID PO Last administered on 11/15/16 21:27; Admin Dose 30 MG; Start 11/09/16 at 13:30 Epoetin César (Epogen (Esrd)) 10,000 units MoWeFr@17 SC Last administered on 17:40; Admin Dose 10,000 UNITS; Start 11/09/16 at 17:00 Albuterol (Ventolin Hfa) 2 puff Q4H PRN INH WHEEZING AND SOB Last administered on 11/14/16 23:20; Admin Dose 2 PUFF; Start 11/09/16 at 14:30 Celecoxib (Celebrex) 200 mg DAILY PO Last administered on 11/15/16 08:47; Admin Dose 200 MG; Start 11/10/16 at 09:00 Acetaminophen/ Hydrocodone Bitart ([place] (5/325)) 1 tab Q6H PRN PO pain Last administered on 11/13/16 22:17; Admin Dose 1 TAB; Start 11/09/16 at 14:30 Linagliptin (Tradjenta) 5 mg DAILY PO Last administered on 11/15/16 08:48; Admin Dose 5 MG; Start 11/10/16 at 09:00 Prednisone (Prednisone) 1 mg TID PO Last administered on 11/15/16 21:26; Admin Dose 1 MG; Start 11/09/16 at 21:00 Salmeterol Xinafoate/ Fluticasone (Advair 250/50 Diskus) 1 inh BID INH Last administered on 11/15/16 21:23; Admin Dose 1 INH; Start 11/09/16 at 21:00 Warfarin Sodium (Coumadin) 4 mg DAILY@17 PO Last administered on 11/12/16 17: 16; Admin Dose 4 MG; Start 11/10/16 at 17:00; Status Future Hold Collagenase (Santyl) 1 applic DAILY TOP Last administered on 11/15/16 12:48; Admin Dose 1 APPLIC; Start 11/11/16 at 09:00 Collagenase (Santyl) 1 applic DAILY PRN TOP WOUND CARE; Start 11/10/16 at 15:30 Metoprolol Tartrate (Lopressor) 25 mg BID PO Last administered on 11/15/16 21: 27; Admin Dose 25 MG; Start 11/12/16 at 21:00 Lorazepam 0.5 mg 0.5 mg Q6H PRN IV AGITATION/ANXIETY Last administered on 02:26; Admin Dose 0.5 MG; Start 11/12/16 at 16:00 Piperacillin Sod/ Tazobactam Sod (Zosyn 2.25gm/ 50ml (Pmx)) 50 ml @ 100 mls/hr Q12 IVPB Last administered on 11/15/16 21:23; Admin Dose 100 MLS/HR; Start at 21:00 CAROL SETH M.D. Nov 16, 2016 09:53
[2016-11-16] MEDS: CELECOXIB 200 MG CAP PO SCH (09:57)
[2016-11-16] MEDS: SALMETEROL/FLUTICASONE 250/50 INHA INH SCH ×2 (09:57→21:30)
[2016-11-16] MEDS: FOLIC ACID 1 MG TAB PO SCH (09:57)
[2016-11-16] MEDS: PIPER-TAZO 2.25 GM (PMX) 50 ML IVPB SCH ×2 (09:57→21:29)
[2016-11-16] MEDS: METOPROLOL 25 MG TAB PO SCH ×2 (09:58→21:38)
[2016-11-16] MEDS: NIFEdipine (XL) 30 MG TAB PO SCH ×2 (09:58→21:38)
[2016-11-16] MEDS: predniSONE 1 MG TAB PO SCH ×3 (09:58→21:33)
[2016-11-16] MEDS: GABAPENTIN 100 MG CAP PO SCH ×3 (09:58→21:33)
[2016-11-16] MEDS: FENOFIBRATE 48 MG TAB PO SCH (09:59)
[2016-11-16] MEDS: LINAGLIPTIN 5 MG TABLET PO SCH (09:59)
[2016-11-16] MEDS: COLLAGENASE 30 GM TUBE TOP SCH (09:59)
[2016-11-16 11:38] LABS: ALBUMIN 3.1 g/dl (3.3-4.9); ALBUMIN/GLOBULIN RATIO 0.83; CALCIUM 8.6 mg/dl (8.4-10.2); CREATININE 8.58 mg/dl (0.44-1.00); POTASSIUM 4.1 mmol/L (3.5-5.1); TOTAL PROTEIN 6.8 g/dl (6.1-8.1)
[2016-11-16 14:52] LABS: INR 1.68; PROTIME 19.9 Sec (12.2-14.2); PT RATIO 1.6
--- NOTE | 2016-11-16 18:22 | PN ---
Date/Time of Note Date/Time of Note DATE: 11/16/16 TIME: 18:16 Assessment/Plan VTE Prophylaxis VTE Prophylaxis Intervention: other Lines/Catheters IV [facility]ter [facility]from [facility] [place] [facility] Urinary Cath still in place: No Assessment/Plan Problems: (1) Bacteremia Status: Acute Comment: as per i.d., antibiotics thru 11/23/16 (2) Internal jugular (IJ) vein thromboembolism, chronic Status: Chronic Comment: noted not an active issue Qualifiers: Laterality: right Qualified Code: I82.C21 - Internal jugular (IJ) vein thromboembolism, chronic, right (3) Anemia in chronic kidney disease Status: Chronic Comment: noted and staqble (4) COPD (chronic obstructive pulmonary disease) Status: Chronic Comment: on treatment and compensated Qualifiers: COPD type: unspecified COPD Qualified Code: J44.9 - Chronic obstructive pulmonary disease, unspecified COPD type (5) Sarcoidosis Status: Chronic Comment: adjust steroids to physiologic replacemnt (6) ESRD (end stage renal disease) on dialysis Status: Chronic Comment: on chd tiw (7) Diabetes mellitus type 2 in obese Status: Chronic Comment: controlled (8) Hypertension associated with chronic kidney disease due to type 2 diabetes mellitus Status: Chronic Comment: controlled (9) Obstructive sleep apnea Status: Chronic Comment: declines cpap despite family trying to convince her (10) Diastolic dysfunction Status: Chronic Comment: noted (11) Pulmonary hypertension Status: Chronic Comment: noted (12) Atrial fibrillation Status: Chronic Comment: rate controlled Qualifiers: Atrial fibrillation type: chronic Qualified Code: I48.2 - Chronic atrial fibrillation (13) Open scalp wound Status: Acute Comment: as per wound care Qualifiers: Encounter type: subsequent encounter Open wound type: unspecified Qualified Code: S01.00XD - Open wound of scalp, unspecified wound type, subsequent encounter Subjective 24 Hr Interval Summary Free Text/Dictation patient is mopre awake and alert today but slightly less than yesterday Constitutional: no complaints Respiratory: no complaints Cardiovascular: no complaints Exam/Review of Systems Vital Signs Vitals Vital Signs Date Time Temp Pulse Resp B/P Pulse Ox O2 Delivery O2 Flow Rate FiO2 11/16/16 16:04 74 11/16/16 15:29 98.7 20 117/58 92 11/16/16 08:00 Nasal Cannula 2.0 Intake and Output 8/111/15/16 11/16/16 15:00 23:00 07:00 Intake Total 200 ml 200 ml Balance 200 ml 200 ml Exam Constitutional: alert, oriented Respiratory: clear to auscultation, normal air movement Cardiovascular: nl pulses, regular rate and rhythm Gastrointestinal: nl liver, spleen, non-tender, soft Results Result Diagram: 11/16/16 0745 11/16/16 1042 Results 24 hrs Laboratory Tests Test 11/15/16 21:25 11/16/16 01:57 11/16/16 07:45 11/16/16 08:31 Bedside Glucose 124 97 87 White Blood Count 9.8 Red Blood Count 3.53 L Hemoglobin 10.3 L Hematocrit 32.4 L Mean Corpuscular Volume 91.8 Mean Corpuscular Hemoglobin 29.2 Mean Corpuscular Hemoglobin Concent 31.8 L Red Cell Distribution Width 16.0 H Platelet Count 196 # Mean Platelet Volume 11.3 H Neutrophils % 64.1 Lymphocytes % 24.2 Monocytes % 7.1 Eosinophils % 2.8 Basophils % 0.5 Nucleated Red Blood Cells % 0.0 Neutrophils # 6.3 Lymphocytes # 2.4 Monocytes # 0.7 Eosinophils # 0.3 Basophils # 0.1 Nucleated Red Blood Cells # 0.0 Test 11/16/16 10:42 11/16/16 12:38 11/16/16 14:00 Sodium Level 140 Potassium Level 4.1 Chloride Level 97 Carbon Dioxide Level 26 Anion Gap 21 H Blood Urea Nitrogen 37 H Creatinine 8.58 H Glucose Level 134 Calcium Level 8.6 Total Bilirubin 0.0 L Direct Bilirubin 0.00 Indirect Bilirubin 0.0 Aspartate Amino Transf (AST/SGOT) 19 Alanine Aminotransferase (ALT/SGPT) 20 Alkaline Phosphatase 39 L Total Protein 6.8 Albumin 3.1 L Globulin 3.70 H Albumin/Globulin Ratio 0.83 Bedside Glucose 124 Erythrocyte Sedimentation Rate 80 H Prothrombin Time 19.9 #H Prothrombin Time Ratio 1.6 INR International Normalized Ratio 1.68 Medications Medications Current Medications Ondansetron HCl (Zofran Inj) 4 mg Q6H PRN IV NAUSEA AND/OR VOMITING; Start at 18:30 Acetaminophen (Tylenol Tab) 650 mg Q6H PRN PO PAIN LEVEL 1-3 OR FEVER Last administered on 11/09/16t 00:55; Admin Dose 650 MG; Start 11/08/16 at 18:30 Docusate Sodium (Colace) 100 mg Q12H PRN PO CONSTIPATION; Start 11/08/16 at 18: 30 Diagnostic Test (Pha) (Accu-Chek) 1 ea 02 XX Last administered on 11/13/16 02: 01; Admin Dose 1 EA; Start 11/09/16 at 02:00 Miscellaneous Information 1 ea NOTE XX ; Start 11/08/16 at 19:30 Glucose (Glutose) 15 gm Q15M PRN PO DECREASED GLUCOSE; Start 11/08/16 at 19:30 Glucose (Glutose) 22.5 gm Q15M PRN PO DECREASED GLUCOSE; Start 11/08/16 at 19: 30 Dextrose (D50w Syringe) 25 ml Q15M PRN IV DECREASED GLUCOSE; Start 11/08/16 at 19:30 Dextrose (D50w Syringe) 50 ml Q15M PRN IV DECREASED GLUCOSE; Start 11/08/16 at 19:30 Glucagon (Glucagen) 1 mg Q15M PRN IM DECREASED GLUCOSE; Start 11/08/16 at 19:30 Glucose (Glutose) 15 gm Q15M PRN BUCCAL DECREASED GLUCOSE; Start 11/08/16 at 19 :30 Atorvastatin Calcium (Lipitor) 40 mg QHS PO Last administered on 11/15/16 21:26 ; Admin Dose 40 MG; Start 11/09/16 at 21:00 Famotidine (Pepcid) 40 mg HS PO Last administered on 11/15/16 21:26; Admin Dose 40 MG; Start 11/09/16 at 21:00 Fenofibrate (Tricor) 48 mg QAM PO Last administered on 11/16/16 09:59; Admin Dose 48 MG; Start 11/10/16 at 09:00 Folic Acid (Folic Acid) 2 mg DAILY PO Last administered on 11/16/16 09:57; Admin Dose 2 MG; Start 11/10/16 at 09:00 Gabapentin (Neurontin) 100 mg TID PO Last administered on 11/16/16 14:03; Admin Dose 100 MG; Start 11/09/16 at 21:00 Nifedipine (Procardia Xl) 30 mg BID PO Last administered on 11/16/16 09:58; Admin Dose 30 MG; Start 11/09/16 at 13:30 Epoetin César (Epogen (Esrd)) 10,000 units MoWeFr@17 SC Last administered on 17:40; Admin Dose 10,000 UNITS; Start 11/09/16 at 17:00 Albuterol (Ventolin Hfa) 2 puff Q4H PRN INH WHEEZING AND SOB Last administered on 11/14/16 23:20; Admin Dose 2 PUFF; Start 11/09/16 at 14:30 Celecoxib (Celebrex) 200 mg DAILY PO Last administered on 11/16/16 09:57; Admin Dose 200 MG; Start 11/10/16 at 09:00 Acetaminophen/ Hydrocodone Bitart ([place] (5/325)) 1 tab Q6H PRN PO pain Last administered on 11/13/16 22:17; Admin Dose 1 TAB; Start 11/09/16 at 14:30 Linagliptin (Tradjenta) 5 mg DAILY PO Last administered on 11/16/16 09:59; Admin Dose 5 MG; Start 11/10/16 at 09:00 Prednisone (Prednisone) 1 mg TID PO Last administered on 11/16/16 14:03; Admin Dose 1 MG; Start 11/09/16 at 21:00 Salmeterol Xinafoate/ Fluticasone (Advair 250/50 Diskus) 1 inh BID INH Last administered on 11/16/16 09:57; Admin Dose 1 INH; Start 11/09/16 at 21:00 Collagenase (Santyl) 1 applic DAILY TOP Last administered on 11/16/16 09:59; Admin Dose 1 APPLIC; Start 11/11/16 at 09:00 Collagenase (Santyl) 1 applic DAILY PRN TOP WOUND CARE; Start 11/10/16 at 15:30 Metoprolol Tartrate (Lopressor) 25 mg BID PO Last administered on 11/16/16 09: 58; Admin Dose 25 MG; Start 11/12/16 at 21:00 Lorazepam 0.5 mg 0.5 mg Q6H PRN IV AGITATION/ANXIETY Last administered on 02:26; Admin Dose 0.5 MG; Start 11/12/16 at 16:00 Piperacillin Sod/ Tazobactam Sod (Zosyn 2.25gm/ 50ml (Pmx)) 50 ml @ 100 mls/hr Q12 IVPB Last administered on 11/16/16t 09:57; Admin Dose 100 MLS/HR; Start at 21:00; Stop 11/23/16 at 20:59 Warfarin Sodium (Coumadin) 1 mg DAILY@17 PO ; Start 11/17/16 at 17:00 TOMER GARCIA MD Nov 16, 2016 18:22
[2016-11-16] MEDS: EPOETIN 10000 UNITS/1 ML INJ (ESRD) SC SCH (18:27)
[2016-11-16] MEDS: ATORVASTATIN 40 MG TAB PO SCH (21:33)
[2016-11-16] MEDS: FAMOTIDINE 20 MG TAB PO SCH (21:33)
[2016-11-17] VITALS (12 sets, daily range): BP systolic 95–119; BP diastolic 54–67; PULSE 61–89; RESP 19–20
[2016-11-17] MEDS: ACCU-CHEK XX SCH (02:00)
[2016-11-17] MEDS: INSULIN ASPART [NOVOLOG] 3 ML PEN SC SCH ×4 (07:55→21:00)
[2016-11-17 08:14] LABS: WHITE BLOOD COUNT 7.7 10^3/ul (4.8-10.8)
[2016-11-17 08:15] LABS: BASOPHILS % 0.5 % (0.0-2.0); EOSINOPHILS # 0.3 10^3/ul (0.0-0.5); EOSINOPHILS % 3.2 % (0.0-7.0); HEMATOCRIT 33.7 % (37.0-47.0); HEMOGLOBIN 10.7 g/dl (12.0-16.0); LYMPHOCYTES # 1.7 10^3/ul (0.8-2.9); MEAN CORPUSCULAR HEMOGLOBIN 30.2 pg (29.0-33.0); MEAN CORPUSCULAR HGB CONC 31.8 g/dl (32.0-37.0); MEAN CORPUSCULAR VOLUME 95.2 fl (82.0-101.0); MEAN PLATELET VOLUME 11.1 fl (7.4-10.4); MONOCYTE # 0.5 10^3/ul (0.3-0.9); MONOCYTES % 6.7 % (0.0-11.0); NEUTROPHIL # 5.2 10^3/ul (1.6-7.5); NEUTROPHILS % 66.6 % (39.0-77.0); PLATELET COUNT 247 10^3/UL (140-415); RED BLOOD COUNT 3.54 10^6/ul (4.20-5.40); RED CELL DISTRIBUTION WIDTH 16.3 % (11.5-14.5)
[2016-11-17 08:22] LABS: INR 1.22; PROTIME 15.5 Sec (12.2-14.2); PT RATIO 1.2
[2016-11-17 08:28] LABS: CREATININE 6.74 mg/dl (0.44-1.00); POTASSIUM 3.6 mmol/L (3.5-5.1)
[2016-11-17] MEDS: NIFEdipine (XL) 30 MG TAB PO SCH ×2 (09:00→21:00)
--- NOTE | 2016-11-17 09:22 | CONS ---
Date/Time of Note Date/Time of Note DATE: 11/17/16 TIME: 09:19 Assessment/Plan Assessment/Plan Problems: (1) Bacteremia Status: Acute Comment: cxs have been (-) x many days, w no fever or leukocytosis x days (2) Delirium Status: Resolved Comment: ?.. seems fine currently (3) ESRD (end stage renal disease) on dialysis Status: Chronic Comment: for HD in am Consultation Date/Type/Reason Admit Date/Time Nov 10, 2016 at 15:14 Initial Consult Date 11/09/16 Type of Consultation: neph Referring Provider: SOBEIDA ENRIQUEZ MD 24 HR Interval Summary Free Text/Dictation seems fine... per nursing, gets confused later in day and in PM... again, no fever or leukocytosis Exam/Review of Systems Vital Signs Vitals Vital Signs Date Time Temp Pulse Resp B/P Pulse Ox O2 Delivery O2 Flow Rate FiO2 11/17/16 08:35 78 11/17/16 07:34 98.2 19 114/57 96 11/16/16 21:25 2.0 11/16/16 19:47 Nasal Cannula Intake and Output 11/16/16 11/16/16 11/17/16 15:00 23:00 07:00 Intake Total 500 ml 770 ml 300 ml Output Total 3500 ml Balance -3000 ml 770 ml 300 ml Exam Constitutional: alert, oriented Eyes: nl conjunctiva Neck: other (in hard collar) Cardiovascular: irregular rhythm Gastrointestinal: soft Extremities: normal pulses (avf rue) Results Result Diagram: 11/17/16 0706 11/17/16 0706 Results 24 hrs Laboratory Tests Test 11/16/16 10:42 11/16/16 12:38 11/16/16 14:00 11/16/16 18:28 Sodium Level 140 Potassium Level 4.1 Chloride Level 97 Carbon Dioxide Level 26 Anion Gap 21 H Blood Urea Nitrogen 37 H Creatinine 8.58 H Glucose Level 134 Calcium Level 8.6 Total Bilirubin 0.0 L Direct Bilirubin 0.00 Indirect Bilirubin 0.0 Aspartate Amino Transf (AST/SGOT) 19 Alanine Aminotransferase (ALT/SGPT) 20 Alkaline Phosphatase 39 L Total Protein 6.8 Albumin 3.1 L Globulin 3.70 H Albumin/Globulin Ratio 0.83 Bedside Glucose 124 135 Erythrocyte Sedimentation Rate 80 H Prothrombin Time 19.9 #H Prothrombin Time Ratio 1.6 INR International Normalized Ratio 1.68 Test 11/16/16 21:32 11/17/16 02:08 11/17/16 07:00 11/17/16 07:06 Bedside Glucose 115 105 Prothrombin Time 15.5 #H Prothrombin Time Ratio 1.2 INR International Normalized Ratio 1.22 White Blood Count 7.7 # Red Blood Count 3.54 L Hemoglobin 10.7 L Hematocrit 33.7 L Mean Corpuscular Volume 95.2 Mean Corpuscular Hemoglobin 30.2 Mean Corpuscular Hemoglobin Concent 31.8 L Red Cell Distribution Width 16.3 H Platelet Count 247 # Mean Platelet Volume 11.1 H Neutrophils % 66.6 Lymphocytes % 22.0 Monocytes % 6.7 Eosinophils % 3.2 Basophils % 0.5 Nucleated Red Blood Cells % 0.0 Neutrophils # 5.2 Lymphocytes # 1.7 Monocytes # 0.5 Eosinophils # 0.3 Basophils # 0.0 Nucleated Red Blood Cells # 0.0 Sodium Level 146 H Potassium Level 3.6 Chloride Level 100 Carbon Dioxide Level 29 Anion Gap 21 H Blood Urea Nitrogen 21 #H Creatinine 6.74 H Glucose Level 96 Calcium Level 9.0 Test 11/17/16 08:14 Bedside Glucose 101 Medications Medications Current Medications Ondansetron HCl (Zofran Inj) 4 mg Q6H PRN IV NAUSEA AND/OR VOMITING; Start at 18:30 Acetaminophen (Tylenol Tab) 650 mg Q6H PRN PO PAIN LEVEL 1-3 OR FEVER Last administered on 11/09/16 00:55; Admin Dose 650 MG; Start 11/08/16 at 18:30 Docusate Sodium (Colace) 100 mg Q12H PRN PO CONSTIPATION; Start 11/08/16 at 18: 30 Diagnostic Test (Pha) (Accu-Chek) 1 ea 02 XX Last administered on 11/13/16 02: 01; Admin Dose 1 EA; Start 11/09/16 at 02:00 Miscellaneous Information 1 ea NOTE XX ; Start 11/08/16 at 19:30 Glucose (Glutose) 15 gm Q15M PRN PO DECREASED GLUCOSE; Start 11/08/16 at 19:30 Glucose (Glutose) 22.5 gm Q15M PRN PO DECREASED GLUCOSE; Start 11/08/16 at 19: 30 Dextrose (D50w Syringe) 25 ml Q15M PRN IV DECREASED GLUCOSE; Start 11/08/16 at 19:30 Dextrose (D50w Syringe) 50 ml Q15M PRN IV DECREASED GLUCOSE; Start 11/08/16 at 19:30 Glucagon (Glucagen) 1 mg Q15M PRN IM DECREASED GLUCOSE; Start 11/08/16 at 19:30 Glucose (Glutose) 15 gm Q15M PRN BUCCAL DECREASED GLUCOSE; Start 11/08/16 at 19 :30 Atorvastatin Calcium (Lipitor) 40 mg QHS PO Last administered on 11/16/16 21:33 ; Admin Dose 40 MG; Start 11/09/16 at 21:00 Famotidine (Pepcid) 40 mg HS PO Last administered on 11/16/16 21:33; Admin Dose 40 MG; Start 11/09/16 at 21:00 Fenofibrate (Tricor) 48 mg QAM PO Last administered on 11/16/16 09:59; Admin Dose 48 MG; Start 11/10/16 at 09:00 Folic Acid (Folic Acid) 2 mg DAILY PO Last administered on 11/16/16 09:57; Admin Dose 2 MG; Start 11/10/16 at 09:00 Gabapentin (Neurontin) 100 mg TID PO Last administered on 11/16/16 21:33; Admin Dose 100 MG; Start 11/09/16 at 21:00 Nifedipine (Procardia Xl) 30 mg BID PO Last administered on 11/16/16 21:38; Admin Dose 30 MG; Start 11/09/16 at 13:30 Epoetin César (Epogen (Esrd)) 10,000 units MoWeFr@17 SC Last administered on 11/16 18:27; Admin Dose 10,000 UNITS; Start 11/09/16 at 17:00 Albuterol (Ventolin Hfa) 2 puff Q4H PRN INH WHEEZING AND SOB Last administered on 11/14/16 23:20; Admin Dose 2 PUFF; Start 11/09/16 at 14:30 Celecoxib (Celebrex) 200 mg DAILY PO Last administered on 11/16/16 09:57; Admin Dose 200 MG; Start 11/10/16 at 09:00 Acetaminophen/ Hydrocodone Bitart ([place] (5/325)) 1 tab Q6H PRN PO pain Last administered on 11/13/16 22:17; Admin Dose 1 TAB; Start 11/09/16 at 14:30 Linagliptin (Tradjenta) 5 mg DAILY PO Last administered on 11/16/16 09:59; Admin Dose 5 MG; Start 11/10/16 at 09:00 Salmeterol Xinafoate/ Fluticasone (Advair 250/50 Diskus) 1 inh BID INH Last administered on 11/16/16 21:30; Admin Dose 1 INH; Start 11/09/16 at 21:00 Collagenase (Santyl) 1 applic DAILY TOP Last administered on 11/16/16 09:59; Admin Dose 1 APPLIC; Start 11/11/16 at 09:00 Collagenase (Santyl) 1 applic DAILY PRN TOP WOUND CARE; Start 11/10/16 at 15:30 Metoprolol Tartrate (Lopressor) 25 mg BID PO Last administered on 11/16/16 21: 38; Admin Dose 25 MG; Start 11/12/16 at 21:00 Lorazepam 0.5 mg 0.5 mg Q6H PRN IV AGITATION/ANXIETY Last administered on 02:26; Admin Dose 0.5 MG; Start 11/12/16 at 16:00 Piperacillin Sod/ Tazobactam Sod (Zosyn 2.25gm/ 50ml (Pmx)) 50 ml @ 100 mls/hr Q12 IVPB Last administered on 11/16/16 21:29; Admin Dose 100 MLS/HR; Start at 21:00; Stop 11/23/16 at 20:59 Warfarin Sodium (Coumadin) 1 mg DAILY@17 PO ; Start 11/17/16 at 17:00 Prednisone (Prednisone) 2 mg TID PO Last administered on 11/16/16 21:33; Admin Dose 2 MG; Start 11/16/16 at 21:00 NICO HAY MD Nov 17, 2016 09:22
--- NOTE | 2016-11-17 09:32 | CONS ---
Date/Time of Note Date/Time of Note DATE: 11/17/16 TIME: 09:28 Assessment/Plan Assessment/Plan Chief Complaint/Hosp Course assessment/impression - polymicrobial bacteremia due to E. coli, eggerthella (eubacterium), probably due to colitis - Pt had bacillus spp. blood culture from 11/08/2016, this might be a contaminant vs. pathogen: it depends on the species; workup in progress. - diarrhea, abd/pel CT did not show acute process. 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 head CT unremarkable - breast mass seen on CT, evaluated by Dr. Nickerson - ESRD via AVF in RUE - displaced Fx of C2 spine, on neck collar - h/o AVR at [facility] for ?aortic valve stenosis. 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 Problems: Consultation Date/Type/Reason Admit Date/Time Nov 10, 2016 at 15:14 Initial Consult Date 11/10/16 Type of Consultation: ID Referring Provider: SOBEIDA ENRIQUEZ MD 24 HR Interval Summary Constitutional: no complaints Detailed Summary Eyes: no complaints ENT: no complaints, other (denies neck pain now), No dysphagia, No sore throat Respiratory: no complaints Cardiovascular: no complaints Gastrointestinal: no complaints, passing stool, No diarrhea Genitourinary: other (anuric) Musculoskeletal: other (no RUE pain now) Skin: no complaints Neurologic: focal-weakness (due to neck Fx) Exam/Review of Systems Vital Signs Vitals Vital Signs Date Time Temp Pulse Resp B/P Pulse Ox O2 Delivery O2 Flow Rate FiO2 11/17/16 08:35 78 11/17/16 07:34 98.2 19 114/57 96 11/16/16 21:25 2.0 11/16/16 19:47 Nasal Cannula Intake and Output 11/16/16 11/16/16 11/17/16 15:00 23:00 07:00 Intake Total 500 ml 770 ml 300 ml Output Total 3500 ml Balance -3000 ml 770 ml 300 ml Exam Constitutional: alert, frail, obese Psych: no complaints Head: normocephalic Eyes: nl conjunctiva, nl lids ENMT: nl external ears & nose, nl nasal mucosa & septum Neck: other (collar) Respiratory: diminished breath sounds Cardiovascular: nl pulses, regular rate and rhythm Gastrointestinal: non-tender, other (normoactive BS), soft Musculoskeletal: nl extremities to inspection Extremities: edema (slight edema of b/l LE) 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: No lethargic Skin: other (chronic discoloration of skin of b/l LE) Results Result Diagram: 11/17/16 0706 11/17/16 0706 Results 24 hrs Laboratory Tests Test 11/16/16 10:42 11/16/16 12:38 11/16/16 14:00 11/16/16 18:28 Sodium Level 140 Potassium Level 4.1 Chloride Level 97 Carbon Dioxide Level 26 Anion Gap 21 H Blood Urea Nitrogen 37 H Creatinine 8.58 H Glucose Level 134 Calcium Level 8.6 Total Bilirubin 0.0 L Direct Bilirubin 0.00 Indirect Bilirubin 0.0 Aspartate Amino Transf (AST/SGOT) 19 Alanine Aminotransferase (ALT/SGPT) 20 Alkaline Phosphatase 39 L Total Protein 6.8 Albumin 3.1 L Globulin 3.70 H Albumin/Globulin Ratio 0.83 Bedside Glucose 124 135 Erythrocyte Sedimentation Rate 80 H Prothrombin Time 19.9 #H Prothrombin Time Ratio 1.6 INR International Normalized Ratio 1.68 Test 11/16/16 21:32 11/17/16 02:08 11/17/16 07:00 11/17/16 07:06 Bedside Glucose 115 105 Prothrombin Time 15.5 #H Prothrombin Time Ratio 1.2 INR International Normalized Ratio 1.22 White Blood Count 7.7 # Red Blood Count 3.54 L Hemoglobin 10.7 L Hematocrit 33.7 L Mean Corpuscular Volume 95.2 Mean Corpuscular Hemoglobin 30.2 Mean Corpuscular Hemoglobin Concent 31.8 L Red Cell Distribution Width 16.3 H Platelet Count 247 # Mean Platelet Volume 11.1 H Neutrophils % 66.6 Lymphocytes % 22.0 Monocytes % 6.7 Eosinophils % 3.2 Basophils % 0.5 Nucleated Red Blood Cells % 0.0 Neutrophils # 5.2 Lymphocytes # 1.7 Monocytes # 0.5 Eosinophils # 0.3 Basophils # 0.0 Nucleated Red Blood Cells # 0.0 Sodium Level 146 H Potassium Level 3.6 Chloride Level 100 Carbon Dioxide Level 29 Anion Gap 21 H Blood Urea Nitrogen 21 #H Creatinine 6.74 H Glucose Level 96 Calcium Level 9.0 Test 11/17/16 08:14 Bedside Glucose 101 Medications Medications Current Medications Ondansetron HCl (Zofran Inj) 4 mg Q6H PRN IV NAUSEA AND/OR VOMITING; Start at 18:30 Acetaminophen (Tylenol Tab) 650 mg Q6H PRN PO PAIN LEVEL 1-3 OR FEVER Last administered on 11/09/16 00:55; Admin Dose 650 MG; Start 11/08/16 at 18:30 Docusate Sodium (Colace) 100 mg Q12H PRN PO CONSTIPATION; Start 11/08/16 at 18: 30 Diagnostic Test (Pha) (Accu-Chek) 1 ea 02 XX Last administered on 11/13/16 02: 01; Admin Dose 1 EA; Start 11/09/16 at 02:00 Miscellaneous Information 1 ea NOTE XX ; Start 11/08/16 at 19:30 Glucose (Glutose) 15 gm Q15M PRN PO DECREASED GLUCOSE; Start 11/08/16 at 19:30 Glucose (Glutose) 22.5 gm Q15M PRN PO DECREASED GLUCOSE; Start 11/08/16 at 19: 30 Dextrose (D50w Syringe) 25 ml Q15M PRN IV DECREASED GLUCOSE; Start 11/08/16 at 19:30 Dextrose (D50w Syringe) 50 ml Q15M PRN IV DECREASED GLUCOSE; Start 11/08/16 at 19:30 Glucagon (Glucagen) 1 mg Q15M PRN IM DECREASED GLUCOSE; Start 11/08/16 at 19:30 Glucose (Glutose) 15 gm Q15M PRN BUCCAL DECREASED GLUCOSE; Start 11/08/16 at 19 :30 Atorvastatin Calcium (Lipitor) 40 mg QHS PO Last administered on 11/16/16 21:33 ; Admin Dose 40 MG; Start 11/09/16 at 21:00 Famotidine (Pepcid) 40 mg HS PO Last administered on 11/16/16 21:33; Admin Dose 40 MG; Start 11/09/16 at 21:00 Fenofibrate (Tricor) 48 mg QAM PO Last administered on 11/16/16 09:59; Admin Dose 48 MG; Start 11/10/16 at 09:00 Folic Acid (Folic Acid) 2 mg DAILY PO Last administered on 11/16/16 09:57; Admin Dose 2 MG; Start 11/10/16 at 09:00 Gabapentin (Neurontin) 100 mg TID PO Last administered on 11/16/16 21:33; Admin Dose 100 MG; Start 11/09/16 at 21:00 Nifedipine (Procardia Xl) 30 mg BID PO Last administered on 11/16/16 21:38; Admin Dose 30 MG; Start 11/09/16 at 13:30 Epoetin César (Epogen (Esrd)) 10,000 units MoWeFr@17 SC Last administered on 11/16 18:27; Admin Dose 10,000 UNITS; Start 11/09/16 at 17:00 Albuterol (Ventolin Hfa) 2 puff Q4H PRN INH WHEEZING AND SOB Last administered on 11/14/16 23:20; Admin Dose 2 PUFF; Start 11/09/16 at 14:30 Celecoxib (Celebrex) 200 mg DAILY PO Last administered on 11/16/16 09:57; Admin Dose 200 MG; Start 11/10/16 at 09:00 Acetaminophen/ Hydrocodone Bitart ([place] (5/325)) 1 tab Q6H PRN PO pain Last administered on 11/13/16 22:17; Admin Dose 1 TAB; Start 11/09/16 at 14:30 Linagliptin (Tradjenta) 5 mg DAILY PO Last administered on 11/16/16 09:59; Admin Dose 5 MG; Start 11/10/16 at 09:00 Salmeterol Xinafoate/ Fluticasone (Advair 250/50 Diskus) 1 inh BID INH Last administered on 11/16/16 21:30; Admin Dose 1 INH; Start 11/09/16 at 21:00 Collagenase (Santyl) 1 applic DAILY TOP Last administered on 11/16/16 09:59; Admin Dose 1 APPLIC; Start 11/11/16 at 09:00 Collagenase (Santyl) 1 applic DAILY PRN TOP WOUND CARE; Start 11/10/16 at 15:30 Metoprolol Tartrate (Lopressor) 25 mg BID PO Last administered on 11/16/16 21: 38; Admin Dose 25 MG; Start 11/12/16 at 21:00 Lorazepam 0.5 mg 0.5 mg Q6H PRN IV AGITATION/ANXIETY Last administered on 02:26; Admin Dose 0.5 MG; Start 11/12/16 at 16:00 Piperacillin Sod/ Tazobactam Sod (Zosyn 2.25gm/ 50ml (Pmx)) 50 ml @ 100 mls/hr Q12 IVPB Last administered on 11/16/16 21:29; Admin Dose 100 MLS/HR; Start at 21:00; Stop 11/23/16 at 20:59 Warfarin Sodium (Coumadin) 1 mg DAILY@17 PO ; Start 11/17/16 at 17:00 Prednisone (Prednisone) 2 mg TID PO Last administered on 11/16/16 21:33; Admin Dose 2 MG; Start 11/16/16 at 21:00 CAROL SETH M.D. Nov 17, 2016 09:31
[2016-11-17] MEDS: SEVELAMER CARBONATE 0.8 GM PKT PO SCH ×3 (10:22→18:13)
[2016-11-17] MEDS: SALMETEROL/FLUTICASONE 250/50 INHA INH SCH ×2 (10:23→21:18)
[2016-11-17] MEDS: PIPER-TAZO 2.25 GM (PMX) 50 ML IVPB SCH ×2 (10:23→21:18)
[2016-11-17] MEDS: CELECOXIB 200 MG CAP PO SCH (10:24)
[2016-11-17] MEDS: COLLAGENASE 30 GM TUBE TOP SCH (10:24)
[2016-11-17] MEDS: FENOFIBRATE 48 MG TAB PO SCH (10:24)
[2016-11-17] MEDS: FOLIC ACID 1 MG TAB PO SCH (10:24)
[2016-11-17] MEDS: GABAPENTIN 100 MG CAP PO SCH ×3 (10:24→21:19)
[2016-11-17] MEDS: LINAGLIPTIN 5 MG TABLET PO SCH (10:24)
[2016-11-17] MEDS: predniSONE 1 MG TAB PO SCH ×3 (10:25→21:20)
[2016-11-17] MEDS: METOPROLOL 25 MG TAB PO SCH ×2 (10:27→21:21)
[2016-11-17] MEDS ORDERED: WARFARIN 1 MG TAB PO SCH (17:00)
--- NOTE | 2016-11-17 18:04 | PN ---
Date/Time of Note Date/Time of Note DATE: 11/17/16 TIME: 18:00 Assessment/Plan VTE Prophylaxis VTE Prophylaxis Intervention: other Lines/Catheters IV [facility]from [facility] Urinary Cath still in place: No Assessment/Plan Problems: (1) Open scalp wound Status: Acute Comment: This wound is from abrasion from the cervical spine collar. Wound care is working with her and it should heal nicely once she is able to be without the cervical spine collar Qualifiers: Encounter type: subsequent encounter Open wound type: unspecified Qualified Code: S01.00XD - Open wound of scalp, unspecified wound type, subsequent encounter (2) Atrial fibrillation Status: Chronic Comment: Rate is controlled no additional therapeutics indicated at this time Qualifiers: Atrial fibrillation type: chronic Qualified Code: I48.2 - Chronic atrial fibrillation (3) Diastolic dysfunction Status: Chronic Comment: Noted. The patient's on appropriate therapeutics and well tolerating and compensated (4) Atherosclerotic heart disease of [place] coronary artery without angina pectoris Status: Chronic Comment: Quiescent and inactive at this time Qualifiers: [facility] vs. transplanted heart: [place] heart Qualified Code: I25.10 - Atherosclerosis of [place] coronary artery of [place] heart without angina pectoris (5) Status post transcatheter aortic valve replacement (TAVR) using bioprosthesis Status: Acute Comment: This is operating normally. While we have not had a EMILIANA at some my agreement with the hand flesher that this is not the source of bacteremia. (6) Bacteremia Status: Acute Comment: She remains on antibiotics with the assistance and guidance from infectious disease. She will complete antibiotics in roughly 6 days (7) Internal jugular (IJ) vein thromboembolism, chronic Status: Chronic Comment: This is a chronic problem and stable. I do not believe this is a source of the bacteremia i.e. I do not believe this is a suppurative process Qualifiers: Laterality: right Qualified Code: I82.C21 - Internal jugular (IJ) vein thromboembolism, chronic, right (8) Delirium Status: Resolved Comment: This is waxed and waned. A portion of this is undoubtedly due to her sleep apnea for which she declines to have treatment for (9) Anemia in chronic kidney disease Status: Chronic Comment: Noted and stable. (10) COPD (chronic obstructive pulmonary disease) Status: Chronic Comment: Stable and controlled and compensated on current protocol Qualifiers: COPD type: unspecified COPD Qualified Code: J44.9 - Chronic obstructive pulmonary disease, unspecified COPD type (11) Sarcoidosis Status: Chronic Comment: Dosage of prednisone is adjusted. Please note is quite possible that some of her mental status was due to slightly low dosing on the prednisone. I have adjusted up to physiologic replacement dosage and she is stable (12) ESRD (end stage renal disease) on dialysis Status: Chronic Comment: Continue hemodialysis. Subjective 24 Hr Interval Summary Free Text/Dictation Patient sleeping initially arouses easily offers no specific complaints Constitutional: no complaints Respiratory: no complaints Cardiovascular: no complaints Gastrointestinal: no complaints Exam/Review of Systems Vital Signs Vitals Vital Signs Date Time Temp Pulse Resp B/P Pulse Ox O2 Delivery O2 Flow Rate FiO2 11/17/16 16:33 61 11/17/16 15:39 98.5 19 111/59 96 11/17/16 08:00 Nasal Cannula 2.0 Intake and Output 11/16/16 11/16/16 11/17/16 15:00 23:00 07:00 Intake Total 500 ml 770 ml 300 ml Output Total 3500 ml Balance -3000 ml 770 ml 300 ml Exam Constitutional: alert (Easily awakened fully alert) Respiratory: clear to auscultation, normal air movement Results Result Diagram: 11/17/16 0706 11/17/16 0706 Results 24 hrs Laboratory Tests Test 11/16/16 18:28 11/16/16 21:32 11/17/16 02:08 11/17/16 07:00 Bedside Glucose 135 115 105 Prothrombin Time 15.5 #H Prothrombin Time Ratio 1.2 INR International Normalized Ratio 1.22 Test 11/17/16 07:06 11/17/16 08:14 11/17/16 12:37 White Blood Count 7.7 # Red Blood Count 3.54 L Hemoglobin 10.7 L Hematocrit 33.7 L Mean Corpuscular Volume 95.2 Mean Corpuscular Hemoglobin 30.2 Mean Corpuscular Hemoglobin Concent 31.8 L Red Cell Distribution Width 16.3 H Platelet Count 247 # Mean Platelet Volume 11.1 H Neutrophils % 66.6 Lymphocytes % 22.0 Monocytes % 6.7 Eosinophils % 3.2 Basophils % 0.5 Nucleated Red Blood Cells % 0.0 Neutrophils # 5.2 Lymphocytes # 1.7 Monocytes # 0.5 Eosinophils # 0.3 Basophils # 0.0 Nucleated Red Blood Cells # 0.0 Sodium Level 146 H Potassium Level 3.6 Chloride Level 100 Carbon Dioxide Level 29 Anion Gap 21 H Blood Urea Nitrogen 21 #H Creatinine 6.74 H Glucose Level 96 Calcium Level 9.0 Bedside Glucose 101 102 Medications Medications Current Medications Ondansetron HCl (Zofran Inj) 4 mg Q6H PRN IV NAUSEA AND/OR VOMITING; Start at 18:30 Acetaminophen (Tylenol Tab) 650 mg Q6H PRN PO PAIN LEVEL 1-3 OR FEVER Last administered on 11/09/16 00:55; Admin Dose 650 MG; Start 11/08/16 at 18:30 Docusate Sodium (Colace) 100 mg Q12H PRN PO CONSTIPATION; Start 11/08/16 at 18: 30 Diagnostic Test (Pha) (Accu-Chek) 1 ea 02 XX Last administered on 11/13/16 02: 01; Admin Dose 1 EA; Start 11/09/16 at 02:00 Miscellaneous Information 1 ea NOTE XX ; Start 11/08/16 at 19:30 Glucose (Glutose) 15 gm Q15M PRN PO DECREASED GLUCOSE; Start 11/08/16 at 19:30 Glucose (Glutose) 22.5 gm Q15M PRN PO DECREASED GLUCOSE; Start 11/08/16 at 19: 30 Dextrose (D50w Syringe) 25 ml Q15M PRN IV DECREASED GLUCOSE; Start 11/08/16 at 19:30 Dextrose (D50w Syringe) 50 ml Q15M PRN IV DECREASED GLUCOSE; Start 11/08/16 at 19:30 Glucagon (Glucagen) 1 mg Q15M PRN IM DECREASED GLUCOSE; Start 11/08/16 at 19:30 Glucose (Glutose) 15 gm Q15M PRN BUCCAL DECREASED GLUCOSE; Start 11/08/16 at 19 :30 Atorvastatin Calcium (Lipitor) 40 mg QHS PO Last administered on 11/16/16 21:33 ; Admin Dose 40 MG; Start 11/09/16 at 21:00 Famotidine (Pepcid) 40 mg HS PO Last administered on 11/16/16 21:33; Admin Dose 40 MG; Start 11/09/16 at 21:00 Fenofibrate (Tricor) 48 mg QAM PO Last administered on 11/17/16 10:24; Admin Dose 48 MG; Start 11/10/16 at 09:00 Folic Acid (Folic Acid) 2 mg DAILY PO Last administered on 11/17/16 10:24; Admin Dose 2 MG; Start 11/10/16 at 09:00 Gabapentin (Neurontin) 100 mg TID PO Last administered on 11/17/16 12:54; Admin Dose 100 MG; Start 11/09/16 at 21:00 Nifedipine (Procardia Xl) 30 mg BID PO Last administered on 11/16/16 21:38; Admin Dose 30 MG; Start 11/09/16 at 13:30 Epoetin César (Epogen (Esrd)) 10,000 units MoWeFr@17 SC Last administered on 11/16 18:27; Admin Dose 10,000 UNITS; Start 11/09/16 at 17:00 Albuterol (Ventolin Hfa) 2 puff Q4H PRN INH WHEEZING AND SOB Last administered on 11/14/16 23:20; Admin Dose 2 PUFF; Start 11/09/16 at 14:30 Celecoxib (Celebrex) 200 mg DAILY PO Last administered on 11/17/16 10:24; Admin Dose 200 MG; Start 11/10/16 at 09:00 Acetaminophen/ Hydrocodone Bitart ([place] (5/325)) 1 tab Q6H PRN PO pain Last administered on 11/13/16 22:17; Admin Dose 1 TAB; Start 11/09/16 at 14:30 Linagliptin (Tradjenta) 5 mg DAILY PO Last administered on 11/17/16 10:24; Admin Dose 5 MG; Start 11/10/16 at 09:00 Salmeterol Xinafoate/ Fluticasone (Advair 250/50 Diskus) 1 inh BID INH Last administered on 11/17/16 10:23; Admin Dose 1 INH; Start 11/09/16 at 21:00 Collagenase (Santyl) 1 applic DAILY TOP Last administered on 11/16/16 09:59; Admin Dose 1 APPLIC; Start 11/11/16 at 09:00 Collagenase (Santyl) 1 applic DAILY PRN TOP WOUND CARE; Start 11/10/16 at 15:30 Metoprolol Tartrate (Lopressor) 25 mg BID PO Last administered on 11/17/16 10: 27; Admin Dose 25 MG; Start 11/12/16 at 21:00 Lorazepam 0.5 mg 0.5 mg Q6H PRN IV AGITATION/ANXIETY Last administered on 02:26; Admin Dose 0.5 MG; Start 11/12/16 at 16:00 Piperacillin Sod/ Tazobactam Sod (Zosyn 2.25gm/ 50ml (Pmx)) 50 ml @ 100 mls/hr Q12 IVPB Last administered on 11/17/16 10:23; Admin Dose 100 MLS/HR; Start at 21:00; Stop 11/23/16 at 20:59 Warfarin Sodium (Coumadin) 1 mg DAILY@17 PO ; Start 11/17/16 at 17:00 Prednisone (Prednisone) 2 mg TID PO Last administered on 11/17/16 12:54; Admin Dose 2 MG; Start 11/16/16 at 21:00 TOMER GARCIA MD Nov 17, 2016 18:04
[2016-11-17] MEDS: FAMOTIDINE 20 MG TAB PO SCH (21:19)
[2016-11-17] MEDS: ATORVASTATIN 40 MG TAB PO SCH (21:19)
[2016-11-18] VITALS (20 sets, daily range): BP systolic 93–144; BP diastolic 40–76; PULSE 67–104; RESP 17–19
[2016-11-18] MEDS: ACCU-CHEK XX SCH (01:45)
[2016-11-18] MEDS: INSULIN ASPART [NOVOLOG] 3 ML PEN SC SCH ×4 (07:55→21:00)
[2016-11-18] MEDS: SEVELAMER CARBONATE 0.8 GM PKT PO SCH ×3 (07:55→17:54)
[2016-11-18] MEDS: CELECOXIB 200 MG CAP PO SCH (09:00)
[2016-11-18] MEDS: predniSONE 1 MG TAB PO SCH ×3 (09:00→21:26)
[2016-11-18] MEDS: FOLIC ACID 1 MG TAB PO SCH (09:00)
[2016-11-18] MEDS: METOPROLOL 25 MG TAB PO SCH ×2 (09:00→21:26)
[2016-11-18] MEDS: FENOFIBRATE 48 MG TAB PO SCH (09:00)
[2016-11-18] MEDS: GABAPENTIN 100 MG CAP PO SCH ×3 (09:00→21:25)
[2016-11-18] MEDS: NIFEdipine (XL) 30 MG TAB PO SCH ×2 (09:00→21:26)
[2016-11-18] MEDS: SALMETEROL/FLUTICASONE 250/50 INHA INH SCH ×2 (09:00→21:19)
[2016-11-18] MEDS: COLLAGENASE 30 GM TUBE TOP SCH (09:00)
[2016-11-18] MEDS: LINAGLIPTIN 5 MG TABLET PO SCH (09:00)
--- NOTE | 2016-11-18 10:58 | CONS ---
Date/Time of Note Date/Time of Note DATE: 11/18/16 TIME: 10:56 Assessment/Plan Assessment/Plan Chief Complaint/Hosp Course assessment/impression - polymicrobial bacteremia due to E. coli, eggerthella (eubacterium), probably due to colitis - Pt had bacillus spp. blood culture from 11/08/2016, this might be a contaminant vs. pathogen: it depends on the species; workup in progress. - diarrhea, abd/pel CT did not show acute process. 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 head CT unremarkable - breast mass seen on CT, evaluated by Dr. Nickerson - ESRD via AVF in RUE - displaced Fx of C2 spine, on neck collar - h/o AVR at [facility] for ?aortic valve stenosis. Transthoracic echo was negative for vegetation on 11/11/2016 - DM - COPD - sacrcoidosis - CAD, CHF - h/o diverticulosis - h/o hemorrhoids - h/o colonic AVM recommendations - pending results: sensitivity of eggerthella (eubacterium) in her blood culture (send-out test, requested to Tatiana, a feed inspection supervisor on 11/14/2016), it is usually sensitive to beta-lactam/beta-lactamase inhibitor combination; speciation of bacillus species in her blood culture (send out test, requested on 11/13/2016) - I recommend renally dosed pip/tazo through 11/23/2016 management d/w Pt Problems: Consultation Date/Type/Reason Admit Date/Time Nov 10, 2016 at 15:14 Initial Consult Date 11/10/16 Type of Consultation: ID Referring Provider: SOBEIDA ENRIQUEZ MD 24 HR Interval Summary Constitutional: improved Detailed Summary Eyes: no complaints ENT: other (neck pain is "good") Respiratory: no complaints Cardiovascular: no complaints Gastrointestinal: passing stool, No pain Genitourinary: other (anuric) Musculoskeletal: restricted range of motion (RUE and R shoulder) Neurologic: no complaints Exam/Review of Systems Vital Signs Vitals Vital Signs Date Time Temp Pulse Resp B/P Pulse Ox O2 Delivery O2 Flow Rate FiO2 11/18/16 09:00 75 11/18/16 08:30 18 11/18/16 07:17 98.2 93/40 90 11/18/16 01:58 2.0 11/17/16 20:00 Nasal Cannula Intake and Output 11/17/16 11/17/16 11/18/16 15:00 23:00 07:00 Intake Total 350 ml 350 ml Balance 350 ml 350 ml Exam Constitutional: alert, frail Psych: No confusion Head: atraumatic, normocephalic Eyes: nl lids, other (cataract) Neck: other (collar) Respiratory: diminished breath sounds Cardiovascular: nl pulses, regular rate and rhythm Gastrointestinal: bowel sounds, non-tender, soft, No distended, No tender Musculoskeletal: nl extremities to inspection Extremities: edema 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: No lethargic Skin: nl turgor Results Result Diagram: 11/17/1670511/17/16 0706 Results 24 hrs Laboratory Tests Test 11/17/16 12:37 11/17/16 18:16 11/17/16 20:05 11/18/16 07:59 Bedside Glucose 102 109 110 121 Medications Medications Current Medications Ondansetron HCl (Zofran Inj) 4 mg Q6H PRN IV NAUSEA AND/OR VOMITING; Start at 18:30 Acetaminophen (Tylenol Tab) 650 mg Q6H PRN PO PAIN LEVEL 1-3 OR FEVER Last administered on 11/09/16 00:55; Admin Dose 650 MG; Start 11/08/16 at 18:30 Docusate Sodium (Colace) 100 mg Q12H PRN PO CONSTIPATION; Start 11/08/16 at 18: 30 Diagnostic Test (Pha) (Accu-Chek) 1 ea 02 XX Last administered on 11/13/16 02: 01; Admin Dose 1 EA; Start 11/09/16 at 02:00 Miscellaneous Information 1 ea NOTE XX ; Start 11/08/16 at 19:30 Glucose (Glutose) 15 gm Q15M PRN PO DECREASED GLUCOSE; Start 11/08/16 at 19:30 Glucose (Glutose) 22.5 gm Q15M PRN PO DECREASED GLUCOSE; Start 11/08/16 at 19: 30 Dextrose (D50w Syringe) 25 ml Q15M PRN IV DECREASED GLUCOSE; Start 11/08/16 at 19:30 Dextrose (D50w Syringe) 50 ml Q15M PRN IV DECREASED GLUCOSE; Start 11/08/16 at 19:30 Glucagon (Glucagen) 1 mg Q15M PRN IM DECREASED GLUCOSE; Start 11/08/16 at 19:30 Glucose (Glutose) 15 gm Q15M PRN BUCCAL DECREASED GLUCOSE; Start 11/08/16 at 19 :30 Atorvastatin Calcium (Lipitor) 40 mg QHS PO Last administered on 11/17/16 21:19 ; Admin Dose 40 MG; Start 11/09/16 at 21:00 Famotidine (Pepcid) 40 mg HS PO Last administered on 11/17/16 21:19; Admin Dose 40 MG; Start 11/09/16 at 21:00 Fenofibrate (Tricor) 48 mg QAM PO Last administered on 11/17/16 10:24; Admin Dose 48 MG; Start 11/10/16 at 09:00 Folic Acid (Folic Acid) 2 mg DAILY PO Last administered on 11/17/16 10:24; Admin Dose 2 MG; Start 11/10/16 at 09:00 Gabapentin (Neurontin) 100 mg TID PO Last administered on 11/17/16 21:19; Admin Dose 100 MG; Start 11/09/16 at 21:00 Nifedipine (Procardia Xl) 30 mg BID PO Last administered on 11/16/16 21:38; Admin Dose 30 MG; Start 11/09/16 at 13:30 Epoetin César (Epogen (Esrd)) 10,000 units MoWeFr@17 SC Last administered on 11/16 18:27; Admin Dose 10,000 UNITS; Start 11/09/16 at 17:00 Albuterol (Ventolin Hfa) 2 puff Q4H PRN INH WHEEZING AND SOB Last administered on 11/14/16 23:20; Admin Dose 2 PUFF; Start 11/09/16 at 14:30 Celecoxib (Celebrex) 200 mg DAILY PO Last administered on 11/17/16 10:24; Admin Dose 200 MG; Start 11/10/16 at 09:00 Acetaminophen/ Hydrocodone Bitart ([place] (5/325)) 1 tab Q6H PRN PO pain Last administered on 11/13/16 22:17; Admin Dose 1 TAB; Start 11/09/16 at 14:30 Linagliptin (Tradjenta) 5 mg DAILY PO Last administered on 11/17/16 10:24; Admin Dose 5 MG; Start 11/10/16 at 09:00 Salmeterol Xinafoate/ Fluticasone (Advair 250/50 Diskus) 1 inh BID INH Last administered on 11/17/16 21:18; Admin Dose 1 INH; Start 11/09/16 at 21:00 Collagenase (Santyl) 1 applic DAILY TOP Last administered on 11/18/16 09:00; Admin Dose 1 APPLIC; Start 11/11/16 at 09:00 Collagenase (Santyl) 1 applic DAILY PRN TOP WOUND CARE; Start 11/10/16 at 15:30 Metoprolol Tartrate (Lopressor) 25 mg BID PO Last administered on 11/17/16 21: 21; Admin Dose 25 MG; Start 11/12/16 at 21:00 Lorazepam 0.5 mg 0.5 mg Q6H PRN IV AGITATION/ANXIETY Last administered on 02:26; Admin Dose 0.5 MG; Start 11/12/16 at 16:00 Piperacillin Sod/ Tazobactam Sod (Zosyn 2.25gm/ 50ml (Pmx)) 50 ml @ 100 mls/hr Q12 IVPB Last administered on 11/17/16 21:18; Admin Dose 100 MLS/HR; Start at 21:00; Stop 11/23/16 at 20:59 Warfarin Sodium (Coumadin) 1 mg DAILY@17 PO Last administered on 11/17/16 18:13 ; Admin Dose 1 MG; Start 11/17/16 at 17:00 Prednisone (Prednisone) 2 mg TID PO Last administered on 11/17/16 21:20; Admin Dose 2 MG; Start 11/16/16 at 21:00 CAROL SETH M.D. Nov 18, 2016 10:58
[2016-11-18] MEDS: PIPER-TAZO 2.25 GM (PMX) 50 ML IVPB SCH ×2 (12:16→21:20)
--- NOTE | 2016-11-18 13:23 | CONS ---
Date/Time of Note Date/Time of Note DATE: 11/18/16 TIME: 13:18 Assessment/Plan Assessment/Plan Problems: (1) Dens fracture Comment: stable... neuro nl... still in hard collar (2) Atrial fibrillation Comment: stable... rate controlled... on coumadin (3) Bacteremia Status: Acute Comment: cx (-) x7d... afeb w nl WBC (4) Anemia in chronic kidney disease Status: Chronic Comment: finished IV Fe... on EPO (5) ESRD (end stage renal disease) on dialysis Status: Chronic Comment: nas HD today... next HD to be Mon (6) Aortic stenosis Status: Chronic Comment: s/op TAVR in Apr... stable, intact..(-) echo here Consultation Date/Type/Reason Admit Date/Time Nov 10, 2016 at 15:14 Initial Consult Date 11/09/16 Type of Consultation: neph Referring Provider: SOBEIDA ENRIQUEZ MD 24 HR Interval Summary Free Text/Dictation feels well... did get OOb yesterday... remains afeb, nl WBC, and cx (-)... on abx still Exam/Review of Systems Vital Signs Vitals Vital Signs Date Time Temp Pulse Resp B/P Pulse Ox O2 Delivery O2 Flow Rate FiO2 11/18/16 12:18 82 11/18/16 11:30 19 11/18/16 11:15 98.4 111/46 97 11/18/16 01:58 2.0 11/17/16 20:00 Nasal Cannula Intake and Output 11/17/16 11/17/16 11/18/16 15:00 23:00 07:00 Intake Total 350 ml 350 ml Balance 350 ml 350 ml Exam Constitutional: alert, oriented Eyes: nl conjunctiva Neck: other (in hard collar) Respiratory: clear to auscultation Cardiovascular: irregular rhythm Gastrointestinal: soft Extremities: normal pulses (fxn AVF in her RUE) Results Result Diagram: 11/17/16 0706 11/17/16 0706 Results 24 hrs Laboratory Tests Test 11/17/16 18:16 11/17/16 20:05 11/18/16 07:59 11/18/16 12:17 Bedside Glucose 109 110 121 150 Medications Medications Current Medications Ondansetron HCl (Zofran Inj) 4 mg Q6H PRN IV NAUSEA AND/OR VOMITING; Start at 18:30 Acetaminophen (Tylenol Tab) 650 mg Q6H PRN PO PAIN LEVEL 1-3 OR FEVER Last administered on 11/09/16 00:55; Admin Dose 650 MG; Start 11/08/16 at 18:30 Docusate Sodium (Colace) 100 mg Q12H PRN PO CONSTIPATION; Start 11/08/16 at 18: 30 Diagnostic Test (Pha) (Accu-Chek) 1 ea 02 XX Last administered on 11/13/16 02: 01; Admin Dose 1 EA; Start 11/09/16 at 02:00 Miscellaneous Information 1 ea NOTE XX ; Start 11/08/16 at 19:30 Glucose (Glutose) 15 gm Q15M PRN PO DECREASED GLUCOSE; Start 11/08/16 at 19:30 Glucose (Glutose) 22.5 gm Q15M PRN PO DECREASED GLUCOSE; Start 11/08/16 at 19: 30 Dextrose (D50w Syringe) 25 ml Q15M PRN IV DECREASED GLUCOSE; Start 11/08/16 at 19:30 Dextrose (D50w Syringe) 50 ml Q15M PRN IV DECREASED GLUCOSE; Start 11/08/16 at 19:30 Glucagon (Glucagen) 1 mg Q15M PRN IM DECREASED GLUCOSE; Start 11/08/16 at 19:30 Glucose (Glutose) 15 gm Q15M PRN BUCCAL DECREASED GLUCOSE; Start 11/08/16 at 19 :30 Atorvastatin Calcium (Lipitor) 40 mg QHS PO Last administered on 11/17/16 21:19 ; Admin Dose 40 MG; Start 11/09/16 at 21:00 Famotidine (Pepcid) 40 mg HS PO Last administered on 11/17/16 21:19; Admin Dose 40 MG; Start 11/09/16 at 21:00 Fenofibrate (Tricor) 48 mg QAM PO Last administered on 11/17/16 10:24; Admin Dose 48 MG; Start 11/10/16 at 09:00 Folic Acid (Folic Acid) 2 mg DAILY PO Last administered on 11/17/16 10:24; Admin Dose 2 MG; Start 11/10/16 at 09:00 Gabapentin (Neurontin) 100 mg TID PO Last administered on 11/17/16 21:19; Admin Dose 100 MG; Start 11/09/16 at 21:00 Nifedipine (Procardia Xl) 30 mg BID PO Last administered on 11/16/16 21:38; Admin Dose 30 MG; Start 11/09/16 at 13:30 Epoetin César (Epogen (Esrd)) 10,000 units MoWeFr@17 SC Last administered on 11/16 18:27; Admin Dose 10,000 UNITS; Start 11/09/16 at 17:00 Albuterol (Ventolin Hfa) 2 puff Q4H PRN INH WHEEZING AND SOB Last administered on 11/14/16 23:20; Admin Dose 2 PUFF; Start 11/09/16 at 14:30 Celecoxib (Celebrex) 200 mg DAILY PO Last administered on 11/17/16 10:24; Admin Dose 200 MG; Start 11/10/16 at 09:00 Acetaminophen/ Hydrocodone Bitart ([place] (5/325)) 1 tab Q6H PRN PO pain Last administered on 11/13/16 22:17; Admin Dose 1 TAB; Start 11/09/16 at 14:30 Linagliptin (Tradjenta) 5 mg DAILY PO Last administered on 11/17/16 10:24; Admin Dose 5 MG; Start 11/10/16 at 09:00 Salmeterol Xinafoate/ Fluticasone (Advair 250/50 Diskus) 1 inh BID INH Last administered on 11/17/16 21:18; Admin Dose 1 INH; Start 11/09/16 at 21:00 Collagenase (Santyl) 1 applic DAILY TOP Last administered on 11/18/16 09:00; Admin Dose 1 APPLIC; Start 11/11/16 at 09:00 Collagenase (Santyl) 1 applic DAILY PRN TOP WOUND CARE; Start 11/10/16 at 15:30 Metoprolol Tartrate (Lopressor) 25 mg BID PO Last administered on 11/17/16 21: 21; Admin Dose 25 MG; Start 11/12/16 at 21:00 Lorazepam 0.5 mg 0.5 mg Q6H PRN IV AGITATION/ANXIETY Last administered on 02:26; Admin Dose 0.5 MG; Start 11/12/16 at 16:00 Piperacillin Sod/ Tazobactam Sod (Zosyn 2.25gm/ 50ml (Pmx)) 50 ml @ 100 mls/hr Q12 IVPB Last administered on 11/17/16 21:18; Admin Dose 100 MLS/HR; Start at 21:00; Stop 11/23/16 at 20:59 Warfarin Sodium (Coumadin) 1 mg DAILY@17 PO Last administered on 11/17/16 18:13 ; Admin Dose 1 MG; Start 11/17/16 at 17:00 Prednisone (Prednisone) 2 mg TID PO Last administered on 11/17/16 21:20; Admin Dose 2 MG; Start 11/16/16 at 21:00 NICO HAY MD Nov 18, 2016 13:23
--- NOTE | 2016-11-18 14:22 | PN ---
Date/Time of Note Date/Time of Note DATE: 11/18/16 TIME: 14:19 Assessment/Plan VTE Prophylaxis VTE Prophylaxis Intervention: other Lines/Catheters IV Catheter Type (from [facility]): Saline Lock Urinary Cath still in place: No Assessment/Plan Problems: (1) Bacteremia Status: Acute Comment: Complete formalized course of IV antibiotic therapy. At this time she is ready for placement into a custodial facility as the acute rehabilitation unit has declined. I will arrange for stiff for the last few days of antibiotics and she should be able to go home with home health and home physical therapy (2) Atrial fibrillation Status: Chronic Comment: Adequate rate control. Being anticoagulated with Coumadin. Qualifiers: Atrial fibrillation type: chronic Qualified Code: I48.2 - Chronic atrial fibrillation (3) COPD (chronic obstructive pulmonary disease) Status: Chronic Comment: Well-controlled and compensated on current medication regimen. Qualifiers: COPD type: unspecified COPD Qualified Code: J44.9 - Chronic obstructive pulmonary disease, unspecified COPD type (4) ESRD (end stage renal disease) on dialysis Status: Chronic Comment: Continue hemodialysis as per schedule (5) Diabetes mellitus type 2 in obese Status: Chronic Comment: Well-controlled on current regimen. Subjective 24 Hr Interval Summary Free Text/Dictation Patient sleeping in bed arouses without difficulty, fully oriented Constitutional: no complaints Respiratory: no complaints Cardiovascular: no complaints Exam/Review of Systems Vital Signs Vitals Vital Signs Date Time Temp Pulse Resp B/P Pulse Ox O2 Delivery O2 Flow Rate FiO2 11/18/16 13:46 2.0 11/18/16 12:18 82 11/18/16 11:30 19 11/18/16 11:15 98.4 111/46 97 11/18/16 08:20 Nasal Cannula Intake and Output 11/17/16 11/17/16 11/18/16 14:59 22:59 06:59 Intake Total 350 ml 350 ml Balance 350 ml 350 ml Exam Constitutional: alert, oriented Respiratory: clear to auscultation, normal air movement Cardiovascular: nl pulses, regular rate and rhythm Results Result Diagram: 11/17/16 0706 11/17/16 0706 Results 24 hrs Laboratory Tests Test 11/17/16 18:16 11/17/16 20:05 11/18/16 07:59 11/18/16 12:17 Bedside Glucose 109 110 121 150 Medications Medications Current Medications Ondansetron HCl (Zofran Inj) 4 mg Q6H PRN IV NAUSEA AND/OR VOMITING; Start at 18:30 Acetaminophen (Tylenol Tab) 650 mg Q6H PRN PO PAIN LEVEL 1-3 OR FEVER Last administered on 11/09/16 00:55; Admin Dose 650 MG; Start 11/08/16 at 18:30 Docusate Sodium (Colace) 100 mg Q12H PRN PO CONSTIPATION; Start 11/08/16 at 18: 30 Diagnostic Test (Pha) (Accu-Chek) 1 ea 02 XX Last administered on 11/13/16 02: 01; Admin Dose 1 EA; Start 11/09/16 at 02:00 Miscellaneous Information 1 ea NOTE XX ; Start 11/08/16 at 19:30 Glucose (Glutose) 15 gm Q15M PRN PO DECREASED GLUCOSE; Start 11/08/16 at 19:30 Glucose (Glutose) 22.5 gm Q15M PRN PO DECREASED GLUCOSE; Start 11/08/16 at 19: 30 Dextrose (D50w Syringe) 25 ml Q15M PRN IV DECREASED GLUCOSE; Start 11/08/16 at 19:30 Dextrose (D50w Syringe) 50 ml Q15M PRN IV DECREASED GLUCOSE; Start 11/08/16 at 19:30 Glucagon (Glucagen) 1 mg Q15M PRN IM DECREASED GLUCOSE; Start 11/08/16 at 19:30 Glucose (Glutose) 15 gm Q15M PRN BUCCAL DECREASED GLUCOSE; Start 11/08/16 at 19 :30 Atorvastatin Calcium (Lipitor) 40 mg QHS PO Last administered on 11/17/16 21:19 ; Admin Dose 40 MG; Start 11/09/16 at 21:00 Famotidine (Pepcid) 40 mg HS PO Last administered on 11/17/16 21:19; Admin Dose 40 MG; Start 11/09/16 at 21:00 Fenofibrate (Tricor) 48 mg QAM PO Last administered on 11/17/16 10:24; Admin Dose 48 MG; Start 11/10/16 at 09:00 Folic Acid (Folic Acid) 2 mg DAILY PO Last administered on 11/17/16 10:24; Admin Dose 2 MG; Start 11/10/16 at 09:00 Gabapentin (Neurontin) 100 mg TID PO Last administered on 11/17/16 21:19; Admin Dose 100 MG; Start 11/09/16 at 21:00 Nifedipine (Procardia Xl) 30 mg BID PO Last administered on 11/16/16 21:38; Admin Dose 30 MG; Start 11/09/16 at 13:30 Epoetin César (Epogen (Esrd)) 10,000 units MoWeFr@17 SC Last administered on 11/16 18:27; Admin Dose 10,000 UNITS; Start 11/09/16 at 17:00 Albuterol (Ventolin Hfa) 2 puff Q4H PRN INH WHEEZING AND SOB Last administered on 11/14/16 23:20; Admin Dose 2 PUFF; Start 11/09/16 at 14:30 Celecoxib (Celebrex) 200 mg DAILY PO Last administered on 11/17/16 10:24; Admin Dose 200 MG; Start 11/10/16 at 09:00 Acetaminophen/ Hydrocodone Bitart ([place] (5/325)) 1 tab Q6H PRN PO pain Last administered on 11/13/16 22:17; Admin Dose 1 TAB; Start 11/09/16 at 14:30 Linagliptin (Tradjenta) 5 mg DAILY PO Last administered on 11/17/16 10:24; Admin Dose 5 MG; Start 11/10/16 at 09:00 Salmeterol Xinafoate/ Fluticasone (Advair 250/50 Diskus) 1 inh BID INH Last administered on 11/17/16 21:18; Admin Dose 1 INH; Start 11/09/16 at 21:00 Collagenase (Santyl) 1 applic DAILY TOP Last administered on 11/18/16 09:00; Admin Dose 1 APPLIC; Start 11/11/16 at 09:00 Collagenase (Santyl) 1 applic DAILY PRN TOP WOUND CARE; Start 11/10/16 at 15:30 Metoprolol Tartrate (Lopressor) 25 mg BID PO Last administered on 11/17/16 21: 21; Admin Dose 25 MG; Start 11/12/16 at 21:00 Lorazepam 0.5 mg 0.5 mg Q6H PRN IV AGITATION/ANXIETY Last administered on 02:26; Admin Dose 0.5 MG; Start 11/12/16 at 16:00 Piperacillin Sod/ Tazobactam Sod (Zosyn 2.25gm/ 50ml (Pmx)) 50 ml @ 100 mls/hr Q12 IVPB Last administered on 11/18/16 12:16; Admin Dose 100 MLS/HR; Start at 21:00; Stop 11/23/16 at 20:59 Warfarin Sodium (Coumadin) 1 mg DAILY@17 PO Last administered on 11/17/16 18:13 ; Admin Dose 1 MG; Start 11/17/16 at 17:00 Prednisone (Prednisone) 2 mg TID PO Last administered on 11/17/16 21:20; Admin Dose 2 MG; Start 11/16/16 at 21:00 TOMER GARCIA MD Nov 18, 2016 14:22
[2016-11-18] MEDS: WARFARIN 2 MG TAB PO SCH (17:54)
[2016-11-18] MEDS: EPOETIN 10000 UNITS/1 ML INJ (ESRD) SC SCH (18:10)
[2016-11-18] MEDS: FAMOTIDINE 20 MG TAB PO SCH (21:26)
[2016-11-18] MEDS: ATORVASTATIN 40 MG TAB PO SCH (21:26)
[2016-11-19] VITALS (11 sets, daily range): BP systolic 110–142; BP diastolic 56–71; PULSE 64–85; RESP 18–20
[2016-11-19] MEDS: ACCU-CHEK XX SCH (02:00)
[2016-11-19 06:55] LABS: INR 1.17; PT RATIO 1.2
[2016-11-19] MEDS: INSULIN ASPART [NOVOLOG] 3 ML PEN SC SCH ×4 (07:55→20:52)
[2016-11-19] MEDS: SEVELAMER CARBONATE 0.8 GM PKT PO SCH ×3 (08:58→17:26)
[2016-11-19] MEDS: CELECOXIB 200 MG CAP PO SCH (08:58)
[2016-11-19] MEDS: predniSONE 1 MG TAB PO SCH ×3 (08:59→20:51)
[2016-11-19] MEDS: GABAPENTIN 100 MG CAP PO SCH ×3 (08:59→20:51)
[2016-11-19] MEDS: FOLIC ACID 1 MG TAB PO SCH (08:59)
[2016-11-19] MEDS: LINAGLIPTIN 5 MG TABLET PO SCH (08:59)
[2016-11-19] MEDS: METOPROLOL 25 MG TAB PO SCH ×2 (08:59→20:52)
[2016-11-19] MEDS: NIFEdipine (XL) 30 MG TAB PO SCH ×2 (08:59→20:52)
[2016-11-19] MEDS: FENOFIBRATE 48 MG TAB PO SCH (08:59)
[2016-11-19] MEDS: SALMETEROL/FLUTICASONE 250/50 INHA INH SCH ×2 (09:00→20:50)
[2016-11-19] MEDS: PIPER-TAZO 2.25 GM (PMX) 50 ML IVPB SCH ×2 (09:00→20:51)
[2016-11-19] MEDS: COLLAGENASE 30 GM TUBE TOP SCH (09:00)
--- NOTE | 2016-11-19 09:04 | PN ---
Date/Time of Note Date/Time of Note DATE: 11/19/16 TIME: 09:00 Assessment/Plan VTE Prophylaxis VTE Prophylaxis Intervention: other (Coumadin) Lines/Catheters IV [facility]from [facility] Saline Lock Urinary Cath still in place: No Assessment/Plan Problems: (1) Bacteremia Status: Acute Comment: Completing course of IV antibiotic therapy. She is due to be treated through November 23 at which time the antibiotics and be discontinued. We are looking at discharge to ECF with intensive physical therapy versus home with physical therapy. Family is been given option and is deciding at this time (2) Anemia in chronic kidney disease Status: Chronic Comment: Noted and on Procrit and stable. (3) Atrial fibrillation Status: Chronic Comment: Going back onto anticoagulation. Please note she was significantly over anticoagulated. This is been reversed in part will get her balanced again Qualifiers: Atrial fibrillation type: chronic Qualified Code: I48.2 - Chronic atrial fibrillation (4) COPD (chronic obstructive pulmonary disease) Status: Chronic Comment: Stable and well compensated on current regimen Qualifiers: COPD type: unspecified COPD Qualified Code: J44.9 - Chronic obstructive pulmonary disease, unspecified COPD type (5) Sarcoidosis Status: Chronic Comment: On chronic steroid suppressive therapy for this. Please note she is presently at physiologic replacement dosage and doing well. Her mental status has been clear recently. 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 Expect this will easily heal when she is no longer wearing the brace is rubbing that part of her scalp Qualifiers: Encounter type: subsequent encounter Open wound type: unspecified Qualified Code: S01.00XD - Open wound of scalp, unspecified wound type, subsequent encounter Assessment/Plan Status post C2 dens fracture. The patient is stable and continues to wear the brace in recuperative care. Subjective 24 Hr Interval Summary Constitutional: no complaints (No fevers chills or sweats) Respiratory: no complaints Cardiovascular: no complaints Gastrointestinal: no complaints Exam/Review of Systems Vital Signs Vitals Vital Signs Date Time Temp Pulse Resp B/P Pulse Ox O2 Delivery O2 Flow Rate FiO2 11/19/16 08:53 98.5 85 20 142/63 92 Room Air 11/19/16 01:35 2.0 Intake and Output 11/18/16 11/18/16 11/19/16 15:00 23:00 07:00 Intake Total 600 ml 400 ml 350 ml Output Total 3600 ml Balance -3000 ml 400 ml 350 ml Exam Constitutional: alert, oriented Neck: non-tender, supple Respiratory: clear to auscultation, normal air movement Cardiovascular: irregular rhythm, nl pulses Results Result Diagram: 11/17/16 0706 11/17/16 0706 Results 24 hrs Laboratory Tests Test 11/18/16 12:17 11/18/16 17:54 11/18/16 20:49 11/19/16 05:36 Bedside Glucose 150 144 148 Prothrombin Time 15.0 H Prothrombin Time Ratio 1.2 INR International Normalized Ratio 1.17 Test 11/19/16 07:59 Bedside Glucose 85 Medications Medications Current Medications Ondansetron HCl (Zofran Inj) 4 mg Q6H PRN IV NAUSEA AND/OR VOMITING; Start at 18:30 Acetaminophen (Tylenol Tab) 650 mg Q6H PRN PO PAIN LEVEL 1-3 OR FEVER Last administered on 11/09/16 00:55; Admin Dose 650 MG; Start 11/08/16 at 18:30 Docusate Sodium (Colace) 100 mg Q12H PRN PO CONSTIPATION; Start 11/08/16 at 18: 30 Diagnostic Test (Pha) (Accu-Chek) 1 ea 02 XX Last administered on 11/13/16 02: 01; Admin Dose 1 EA; Start 11/09/16 at 02:00 Miscellaneous Information 1 ea NOTE XX ; Start 11/08/16 at 19:30 Glucose (Glutose) 15 gm Q15M PRN PO DECREASED GLUCOSE; Start 11/08/16 at 19:30 Glucose (Glutose) 22.5 gm Q15M PRN PO DECREASED GLUCOSE; Start 11/08/16 at 19: 30 Dextrose (D50w Syringe) 25 ml Q15M PRN IV DECREASED GLUCOSE; Start 11/08/16 at 19:30 Dextrose (D50w Syringe) 50 ml Q15M PRN IV DECREASED GLUCOSE; Start 11/08/16 at 19:30 Glucagon (Glucagen) 1 mg Q15M PRN IM DECREASED GLUCOSE; Start 11/08/16 at 19:30 Glucose (Glutose) 15 gm Q15M PRN BUCCAL DECREASED GLUCOSE; Start 11/08/16 at 19 :30 Atorvastatin Calcium (Lipitor) 40 mg QHS PO Last administered on 11/18/16 21:26 ; Admin Dose 40 MG; Start 11/09/16 at 21:00 Famotidine (Pepcid) 40 mg HS PO Last administered on 11/18/16 21:26; Admin Dose 40 MG; Start 11/09/16 at 21:00 Fenofibrate (Tricor) 48 mg QAM PO Last administered on 11/17/16 10:24; Admin Dose 48 MG; Start 11/10/16 at 09:00 Folic Acid (Folic Acid) 2 mg DAILY PO Last administered on 11/17/16 10:24; Admin Dose 2 MG; Start 11/10/16 at 09:00 Gabapentin (Neurontin) 100 mg TID PO Last administered on 11/18/16 21:25; Admin Dose 100 MG; Start 11/09/16 at 21:00 Nifedipine (Procardia Xl) 30 mg BID PO Last administered on 11/18/16 21:26; Admin Dose 30 MG; Start 11/09/16 at 13:30 Epoetin César (Epogen (Esrd)) 10,000 units MoWeFr@17 SC Last administered on 11/18 18:10; Admin Dose 10,000 UNITS; Start 11/09/16 at 17:00 Albuterol (Ventolin Hfa) 2 puff Q4H PRN INH WHEEZING AND SOB Last administered on 11/14/16 23:20; Admin Dose 2 PUFF; Start 11/09/16 at 14:30 Celecoxib (Celebrex) 200 mg DAILY PO Last administered on 11/17/16 10:24; Admin Dose 200 MG; Start 11/10/16 at 09:00 Acetaminophen/ Hydrocodone Bitart ([place] (5/325)) 1 tab Q6H PRN PO pain Last administered on 11/13/16 22:17; Admin Dose 1 TAB; Start 11/09/16 at 14:30 Linagliptin (Tradjenta) 5 mg DAILY PO Last administered on 11/17/16 10:24; Admin Dose 5 MG; Start 11/10/16 at 09:00 Salmeterol Xinafoate/ Fluticasone (Advair 250/50 Diskus) 1 inh BID INH Last administered on 11/18/16 21:19; Admin Dose 1 INH; Start 11/09/16 at 21:00 Collagenase (Santyl) 1 applic DAILY TOP Last administered on 11/18/16 09:00; Admin Dose 1 APPLIC; Start 11/11/16 at 09:00 Collagenase (Santyl) 1 applic DAILY PRN TOP WOUND CARE; Start 11/10/16 at 15:30 Metoprolol Tartrate (Lopressor) 25 mg BID PO Last administered on 11/18/16 21: 26; Admin Dose 25 MG; Start 11/12/16 at 21:00 Lorazepam 0.5 mg 0.5 mg Q6H PRN IV AGITATION/ANXIETY Last administered on 02:26; Admin Dose 0.5 MG; Start 11/12/16 at 16:00 Piperacillin Sod/ Tazobactam Sod (Zosyn 2.25gm/ 50ml (Pmx)) 50 ml @ 100 mls/hr Q12 IVPB Last administered on 11/18/16 21:20; Admin Dose 100 MLS/HR; Start at 21:00; Stop 11/23/16 at 20:59 Prednisone (Prednisone) 2 mg TID PO Last administered on 11/18/16 21:26; Admin Dose 2 MG; Start 11/16/16 at 21:00 Warfarin Sodium (Coumadin) 2 mg DAILY@17 PO Last administered on 11/18/16 17:54 ; Admin Dose 2 MG; Start 11/18/16 at 17:00 Warfarin Sodium (Coumadin) 4 mg ONCE@10 ONCE PO ; Start 11/19/16 at 10:00; Stop 11/19/16 at 10:01; Status TOMER MAYO MD Nov 19, 2016 09:04
[2016-11-19] MEDS ORDERED: WARFARIN 2 MG TAB PO ONE (10:00)
--- NOTE | 2016-11-19 10:06 | CONS ---
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 blood culture from 11/08/2016, this might be a contaminant vs. pathogen: it depends on the species; workup in progress. - diarrhea, abd/pel CT did not show acute process. according to Pt's daughter in law, Pt has had intermittent diarrhea at home - possible suppurative (septic) thrombophlebitis of R internal jugular vein - pain in R lateral neck and RUE x5 weeks, improved - skin ulcer of posterior scalp, superficial swab did not grow bacteria - possible pseudomonas enteritis - cough, possible rhinitis prior to admission, improved - MS change on 11/12/2016, probably due to benzodiazepines. head CT unremarkable - breast mass seen on CT, evaluated by Dr. Nickerson - ESRD via AVF in RUE - displaced Fx of C2 spine, on neck collar - h/o AVR at [facility] for ?aortic valve stenosis. Transthoracic echo was negative for vegetation on 11/11/2016 - DM - COPD - sacrcoidosis - CAD, CHF - h/o diverticulosis - h/o hemorrhoids - h/o colonic AVM recommendations - pending results: sensitivity of eggerthella (eubacterium) in her blood culture (send-out test, requested to Tatiana, a unit supervisor on 11/14/2016), it is usually sensitive to beta-lactam/beta-lactamase inhibitor combination; speciation of bacillus species in her blood culture (send-out test, requested on 11/13/2016) - I recommend renally dosed pip/tazo through 11/23/2016 management d/w Pt Problems: Consultation Date/Type/Reason Admit Date/Time Nov 10, 2016 at 15:14 Initial Consult Date 11/10/16 Type of Consultation: ID Referring Provider: SOBEIDA ENRIQUEZ MD 24 HR Interval Summary Constitutional: no complaints Detailed Summary Eyes: no complaints ENT: other (R neck pain is rated 4) Respiratory: no complaints Cardiovascular: no complaints Gastrointestinal: no complaints Genitourinary: other (anuric, on HD) Musculoskeletal: bone/joint pain (RUE pain, rated 4), restricted range of motion (RUE) Skin: no complaints Neurologic: other (on cervical collar) Exam/Review of Systems Vital Signs Vitals Vital Signs Date Time Temp Pulse Resp B/P Pulse Ox O2 Delivery O2 Flow Rate FiO2 11/19/16 08:53 98.5 85 20 142/63 92 Room Air 11/19/16 01:35 2.0 Intake and Output 11/18/16 11/18/16 11/19/16 15:00 23:00 07:00 Intake Total 600 ml 400 ml 350 ml Output Total 3600 ml Balance -3000 ml 400 ml 350 ml Exam Constitutional: alert, frail Psych: no complaints, No confusion Head: atraumatic, normocephalic Eyes: other (cataract) ENMT: nl external ears & nose Neck: other (no reproducible tenderness of R neck) Respiratory: diminished breath sounds Cardiovascular: nl pulses, regular rate and rhythm Gastrointestinal: non-tender, soft Extremities: edema (trace of LEs) 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: nl mental status, nl speech, No confused Skin: other (chronic discoloration of the skin of b/l LEs) Results Result Diagram: 11/17/16 0711/17/16 0706 Results 24 hrs Laboratory Tests Test 11/18/16 12:17 11/18/16 17:54 11/18/16 20:49 11/19/16 05:36 Bedside Glucose 150 144 148 Prothrombin Time 15.0 H Prothrombin Time Ratio 1.2 INR International Normalized Ratio 1.17 Test 11/19/16 07:59 Bedside Glucose 85 Medications Medications Current Medications Ondansetron HCl (Zofran Inj) 4 mg Q6H PRN IV NAUSEA AND/OR VOMITING; Start at 18:30 Acetaminophen (Tylenol Tab) 650 mg Q6H PRN PO PAIN LEVEL 1-3 OR FEVER Last administered on 11/09/16 00:55; Admin Dose 650 MG; Start 11/08/16 at 18:30 Docusate Sodium (Colace) 100 mg Q12H PRN PO CONSTIPATION; Start 11/08/16 at 18: 30 Diagnostic Test (Pha) (Accu-Chek) 1 ea 02 XX Last administered on 11/13/16 02: 01; Admin Dose 1 EA; Start 11/09/16 at 02:00 Miscellaneous Information 1 ea NOTE XX ; Start 11/08/16 at 19:30 Glucose (Glutose) 15 gm Q15M PRN PO DECREASED GLUCOSE; Start 11/08/16 at 19:30 Glucose (Glutose) 22.5 gm Q15M PRN PO DECREASED GLUCOSE; Start 11/08/16 at 19: 30 Dextrose (D50w Syringe) 25 ml Q15M PRN IV DECREASED GLUCOSE; Start 11/08/16 at 19:30 Dextrose (D50w Syringe) 50 ml Q15M PRN IV DECREASED GLUCOSE; Start 11/08/16 at 19:30 Glucagon (Glucagen) 1 mg Q15M PRN IM DECREASED GLUCOSE; Start 11/08/16 at 19:30 Glucose (Glutose) 15 gm Q15M PRN BUCCAL DECREASED GLUCOSE; Start 11/08/16 at 19 :30 Atorvastatin Calcium (Lipitor) 40 mg QHS PO Last administered on 11/18/16 21:26 ; Admin Dose 40 MG; Start 11/09/16 at 21:00 Famotidine (Pepcid) 40 mg HS PO Last administered on 11/18/16 21:26; Admin Dose 40 MG; Start 11/09/16 at 21:00 Fenofibrate (Tricor) 48 mg QAM PO Last administered on 11/19/16 08:59; Admin Dose 48 MG; Start 11/10/16 at 09:00 Folic Acid (Folic Acid) 2 mg DAILY PO Last administered on 11/19/16 08:59; Admin Dose 2 MG; Start 11/10/16 at 09:00 Gabapentin (Neurontin) 100 mg TID PO Last administered on 11/19/16 08:59; Admin Dose 100 MG; Start 11/09/16 at 21:00 Nifedipine (Procardia Xl) 30 mg BID PO Last administered on 11/19/16 08:59; Admin Dose 30 MG; Start 11/09/16 at 13:30 Epoetin Céasr (Epogen (Esrd)) 10,000 units MoWeFr@17 SC Last administered on 11/18 18:10; Admin Dose 10,000 UNITS; Start 11/09/16 at 17:00 Albuterol (Ventolin Hfa) 2 puff Q4H PRN INH WHEEZING AND SOB Last administered on 11/14/16 23:20; Admin Dose 2 PUFF; Start 11/09/16 at 14:30 Celecoxib (Celebrex) 200 mg DAILY PO Last administered on 11/19/16 08:58; Admin Dose 200 MG; Start 11/10/16 at 09:00 Acetaminophen/ Hydrocodone Bitart ([place] (5/325)) 1 tab Q6H PRN PO pain Last administered on 11/13/16 22:17; Admin Dose 1 TAB; Start 11/09/16 at 14:30 Linagliptin (Tradjenta) 5 mg DAILY PO Last administered on 11/19/16 08:59; Admin Dose 5 MG; Start 11/10/16 at 09:00 Salmeterol Xinafoate/ Fluticasone (Advair 250/50 Diskus) 1 inh BID INH Last administered on 11/19/16 09:00; Admin Dose 1 INH; Start 11/09/16 at 21:00 Collagenase (Santyl) 1 applic DAILY TOP Last administered on 11/19/16 09:00; Admin Dose 1 APPLIC; Start 11/11/16 at 09:00 Collagenase (Santyl) 1 applic DAILY PRN TOP WOUND CARE; Start 11/10/16 at 15:30 Metoprolol Tartrate (Lopressor) 25 mg BID PO Last administered on 11/19/16 08: 59; Admin Dose 25 MG; Start 11/12/16 at 21:00 Lorazepam 0.5 mg 0.5 mg Q6H PRN IV AGITATION/ANXIETY Last administered on 02:26; Admin Dose 0.5 MG; Start 11/12/16 at 16:00 Piperacillin Sod/ Tazobactam Sod (Zosyn 2.25gm/ 50ml (Pmx)) 50 ml @ 100 mls/hr Q12 IVPB Last administered on 11/19/16 09:00; Admin Dose 100 MLS/HR; Start at 21:00; Stop 11/23/16 at 20:59 Prednisone (Prednisone) 2 mg TID PO Last administered on 11/19/16 08:59; Admin Dose 2 MG; Start 11/16/16 at 21:00 Warfarin Sodium (Coumadin) 2 mg DAILY@17 PO Last administered on 11/18/16 17:54 ; Admin Dose 2 MG; Start 11/18/16 at 17:00 CAROL SETH M.D. Nov 19, 2016 10:06
--- NOTE | 2016-11-19 13:35 | CONS ---
Date/Time of Note Date/Time of Note DATE: 11/19/16 TIME: 13:28 Assessment/Plan Assessment/Plan Chief Complaint/Hosp Course 1. End-stage renal disease on maintenance hemodialysis Monday and Monday. Her next dialysis is due in 2 days. 2. History of cervical spine vertebral fracture after a fall. 3. Atrial fibrillation controlled rate. 4. Multi-organism bacteremia. She has been afebrile and is on appropriate antibiotics. Problems: Consultation Date/Type/Reason Admit Date/Time Nov 10, 2016 at 15:14 Initial Consult Date 11/10/16 Type of Consultation: renal Referring Provider: SOBEIDA ENRIQUEZ MD 24 HR Interval Summary Free Text/Dictation She is sitting up on the edge of the bed. She has no complaints. Constitutional: improved, no complaints Exam/Review of Systems Vital Signs Vitals Vital Signs Date Time Temp Pulse Resp B/P Pulse Ox O2 Delivery O2 Flow Rate FiO2 11/19/16 11:18 98.2 74 19 116/58 98 11/19/16 10:55 Nasal Cannula 2.0 Intake and Output 11/18/16 11/18/16 11/19/16 15:00 23:00 07:00 Intake Total 600 ml 400 ml 350 ml Output Total 3600 ml Balance -3000 ml 400 ml 350 ml Exam Constitutional: alert, frail, oriented Psych: no complaints Respiratory: clear to auscultation, normal air movement Cardiovascular: irregular rhythm Gastrointestinal: soft Extremities: edema Results Result Diagram: 11/17/16 0706 11/17/16 0706 Results 24 hrs Laboratory Tests Test 11/18/16 17:54 11/18/16 20:49 11/19/16 05:36 11/19/16 07:59 Bedside Glucose 144 148 85 Prothrombin Time 15.0 H Prothrombin Time Ratio 1.2 INR International Normalized Ratio 1.17 Test 11/19/16 11:53 Bedside Glucose 216 Medications Medications Current Medications Ondansetron HCl (Zofran Inj) 4 mg Q6H PRN IV NAUSEA AND/OR VOMITING; Start at 18:30 Acetaminophen (Tylenol Tab) 650 mg Q6H PRN PO PAIN LEVEL 1-3 OR FEVER Last administered on 11/09/16t 00:55; Admin Dose 650 MG; Start 11/08/16 at 18:30 Docusate Sodium (Colace) 100 mg Q12H PRN PO CONSTIPATION; Start 11/08/16 at 18: 30 Diagnostic Test (Pha) (Accu-Chek) 1 ea 02 XX Last administered on 11/13/16 02: 01; Admin Dose 1 EA; Start 11/09/16 at 02:00 Miscellaneous Information 1 ea NOTE XX ; Start 11/08/16 at 19:30 Glucose (Glutose) 15 gm Q15M PRN PO DECREASED GLUCOSE; Start 11/08/16 at 19:30 Glucose (Glutose) 22.5 gm Q15M PRN PO DECREASED GLUCOSE; Start 11/08/16 at 19: 30 Dextrose (D50w Syringe) 25 ml Q15M PRN IV DECREASED GLUCOSE; Start 11/08/16 at 19:30 Dextrose (D50w Syringe) 50 ml Q15M PRN IV DECREASED GLUCOSE; Start 11/08/16 at 19:30 Glucagon (Glucagen) 1 mg Q15M PRN IM DECREASED GLUCOSE; Start 11/08/16 at 19:30 Glucose (Glutose) 15 gm Q15M PRN BUCCAL DECREASED GLUCOSE; Start 11/08/16 at 19 :30 Atorvastatin Calcium (Lipitor) 40 mg QHS PO Last administered on 11/18/16 21:26 ; Admin Dose 40 MG; Start 11/09/16 at 21:00 Famotidine (Pepcid) 40 mg HS PO Last administered on 11/18/16 21:26; Admin Dose 40 MG; Start 11/09/16 at 21:00 Fenofibrate (Tricor) 48 mg QAM PO Last administered on 11/19/16 08:59; Admin Dose 48 MG; Start 11/10/16 at 09:00 Folic Acid (Folic Acid) 2 mg DAILY PO Last administered on 11/19/16 08:59; Admin Dose 2 MG; Start 11/10/16 at 09:00 Gabapentin (Neurontin) 100 mg TID PO Last administered on 11/19/16 12:09; Admin Dose 100 MG; Start 11/09/16 at 21:00 Nifedipine (Procardia Xl) 30 mg BID PO Last administered on 11/19/16 08:59; Admin Dose 30 MG; Start 11/09/16 at 13:30 Epoetin César (Epogen (Esrd)) 10,000 units MoWeFr@17 SC Last administered on 11/18 18:10; Admin Dose 10,000 UNITS; Start 11/09/16 at 17:00 Albuterol (Ventolin Hfa) 2 puff Q4H PRN INH WHEEZING AND SOB Last administered on 11/14/16 23:20; Admin Dose 2 PUFF; Start 11/09/16 at 14:30 Celecoxib (Celebrex) 200 mg DAILY PO Last administered on 11/19/16 08:58; Admin Dose 200 MG; Start 11/10/16 at 09:00 Acetaminophen/ Hydrocodone Bitart ([place] (5/325)) 1 tab Q6H PRN PO pain Last administered on 11/13/16 22:17; Admin Dose 1 TAB; Start 11/09/16 at 14:30 Linagliptin (Tradjenta) 5 mg DAILY PO Last administered on 11/19/16 08:59; Admin Dose 5 MG; Start 11/10/16 at 09:00 Salmeterol Xinafoate/ Fluticasone (Advair 250/50 Diskus) 1 inh BID INH Last administered on 11/19/16 09:00; Admin Dose 1 INH; Start 11/09/16 at 21:00 Collagenase (Santyl) 1 applic DAILY TOP Last administered on 11/19/16 09:00; Admin Dose 1 APPLIC; Start 11/11/16 at 09:00 Collagenase (Santyl) 1 applic DAILY PRN TOP WOUND CARE; Start 11/10/16 at 15:30 Metoprolol Tartrate (Lopressor) 25 mg BID PO Last administered on 11/19/16 08: 59; Admin Dose 25 MG; Start 11/12/16 at 21:00 Lorazepam 0.5 mg 0.5 mg Q6H PRN IV AGITATION/ANXIETY Last administered on 02:26; Admin Dose 0.5 MG; Start 11/12/16 at 16:00 Piperacillin Sod/ Tazobactam Sod (Zosyn 2.25gm/ 50ml (Pmx)) 50 ml @ 100 mls/hr Q12 IVPB Last administered on 11/19/16 09:00; Admin Dose 100 MLS/HR; Start at 21:00; Stop 11/23/16 at 20:59 Prednisone (Prednisone) 2 mg TID PO Last administered on 11/19/16 12:09; Admin Dose 2 MG; Start 11/16/16 at 21:00 Warfarin Sodium (Coumadin) 2 mg DAILY@17 PO Last administered on 11/18/16 17:54 ; Admin Dose 2 MG; Start 11/18/16 at 17:00 FARIDA BARRERA MD Nov 19, 2016 13:34
[2016-11-19] MEDS: WARFARIN 2 MG TAB PO SCH (17:26)
[2016-11-19] MEDS: ATORVASTATIN 40 MG TAB PO SCH (20:51)
[2016-11-19] MEDS: FAMOTIDINE 20 MG TAB PO SCH (20:51)
[2016-11-20] VITALS (8 sets, daily range): BP systolic 117–126; BP diastolic 53–64; PULSE 60–83; RESP 17–20
[2016-11-20] MEDS: ACCU-CHEK XX SCH (02:00)
[2016-11-20] MEDS: INSULIN ASPART [NOVOLOG] 3 ML PEN SC SCH ×2 (07:55→11:50)
[2016-11-20 08:08] LABS: INR 1.3; PROTIME 16.3 Sec (12.2-14.2); PT RATIO 1.3
[2016-11-20] MEDS: FENOFIBRATE 48 MG TAB PO SCH (08:45)
[2016-11-20] MEDS: SEVELAMER CARBONATE 0.8 GM PKT PO SCH ×2 (08:45→12:05)
[2016-11-20] MEDS: FOLIC ACID 1 MG TAB PO SCH (08:45)
[2016-11-20] MEDS: CELECOXIB 200 MG CAP PO SCH (08:45)
[2016-11-20] MEDS: predniSONE 1 MG TAB PO SCH ×2 (08:45→12:05)
[2016-11-20] MEDS: GABAPENTIN 100 MG CAP PO SCH ×2 (08:45→12:05)
[2016-11-20] MEDS: NIFEdipine (XL) 30 MG TAB PO SCH (08:46)
[2016-11-20] MEDS: METOPROLOL 25 MG TAB PO SCH (08:46)
[2016-11-20] MEDS: COLLAGENASE 30 GM TUBE TOP SCH (08:46)
[2016-11-20] MEDS: PIPER-TAZO 2.25 GM (PMX) 50 ML IVPB SCH (08:46)
[2016-11-20] MEDS: LINAGLIPTIN 5 MG TABLET PO SCH (08:46)
[2016-11-20] MEDS: SALMETEROL/FLUTICASONE 250/50 INHA INH SCH (08:47)
--- NOTE | 2016-11-20 10:47 | PDOCDIS ---
Discharge Instructions DIAGNOSIS Discharge Diagnosis Diabetes mellitus type 2; COPD; sarcoidosis; coronary artery disease-quiescent CONDITION Patient Condition: Fair HOME CARE INSTRUCTIONS: Special Diet: RENAL DIET ACTIVITY: Activity Restrictions: Slowly Increase Activity FOLLOW UP/APPOINTMENTS Follow-up Plan To F now. She will have hemodialysis on her routine schedule of every Monday under the care and guidance of [facility] Dr. Clifton; she is to follow-up with neurosurgery in approximately 3 weeks regarding her C2 fracture which is healing well SCHOOL/WORK RELEASE May return to School/Work with: With Restrictions TOMER GARCIA MD Nov 20, 2016 10:47
--- NOTE | 2016-11-20 10:52 | DS ---
Date/Time of Note Date/Time of Note DATE: 11/20/16 TIME: 10:49 Discharge Summary Admission/Discharge Info Admit Date/Time Nov 10, 2016 at 15:14 Discharge Date/Time 11/20/2016 Discharge Diagnosis Diabetes mellitus type 2; COPD; sarcoidosis; coronary artery disease-quiescent; E. coli and U bacterium sepsis; adrenal insufficiency Patient Condition: Fair Consults Infectious diseases-Dr. Dunlap; nephrology Dr. Ma Procedures IV antibiotic therapy Hx of Present Illness 76 y/o AA F w/ h/o T2DM, HTN, hyperlipidemia, ESRD, COPD, sarcoidosis, YOANA, CAD , LBBB, diastolic dysfunction, , diverticulosis, colonic AVM's w/ h/o bleeding , s/p recent fracture of the dens, in [facility] until 4 days ago when she developed mild cough and rhinorrhea. 2 days ago, after dialysis, began to develop fever and chills. Pt. found she could not get warm. This progressively worsened until yesterday family decided to bring her to ER. In ER pt. was also found to have several episodes of A-fib w/ RVR. In addition CXR not directly indicative of PNA but questionable. CT of neck showed persistent fracture and questionable epidural hematoma. Pt. received vanco/cefepime and was admitted. Hospital Course 1. End-stage renal disease on maintenance hemodialysis Monday and Monday. Her next dialysis is due in 2 days. 2. History of cervical spine vertebral fracture after a fall. 3. Atrial fibrillation controlled rate. 4. Multi-organism bacteremia. She has been afebrile and is on appropriate antibiotics. [facility] 76-year-old -[place] Citizen female admitted with a picture of sepsis. Her blood cultures were positive and she was seen in consultation by infectious diseases. Please note she was in the midst of rehabilitation after a fall with a C2 fracture. She is improved nicely and is able to be discharged in improved condition however due to her frailty she needs to go to an ECF for continuation of physical therapy to get her up and around. She is now being transferred to the ECF and will be followed there. She is competent for medical decisions she has fair rehabilitation potential. She has no known communicable diseases. Home Meds Reported Medications Prednisone* (Prednisone*) 1 Mg Tablet, 1 MG PO TID, TAB TAKE 4MG-QAM, 1.5MG-QPM, 1MG-QHS. 11/08/16 Warfarin Sodium* (Coumadin*) 2 Mg Tablet, 4 MG PO DAILY, TAB 11/08/16 Albuterol Sulfate* (Ventolin HFA*) 18 Gm Hfa.aer.ad, 2 PUFF INHALATION Q4H, #1 INHALER 11/08/16 Celecoxib* (Celebrex*) 200 Mg Capsule, 200 MG PO DAILY, CAP 11/08/16 Linagliptin (TRADJENTA) 5 Mg Tablet, 5 MG PO DAILY, TAB 11/08/16 Sevelamer Carbonate* (Renvela*) 800 Mg Tablet, 0.8 GM PO WITH MEALS, TAB 11/08/16 Fenofibrate Nanocrystallized* (Fenofibrate*) 48 Mg Tablet, 48 MG PO QAM, TAB 11/08/16 Hydrocodone/Acetaminophen ([place] 5-325 Tablet) 1 Each Tablet, 1 EACH PO Q6H, TAB 11/08/16 Salmeterol Xinaf/Fluticasone* (Advair*) 250-50 Diskus Inhaler, 1 INH INHALATION BID, #1 INHALER 11/08/16 Atorvastatin* (Atorvastatin*) 40 Mg Tablet, 40 MG PO QHS, #30 TAB 11/08/16 Gabapentin* (Gabapentin*) 100 Mg Capsule, 100 MG PO TID, #90 CAP 11/08/16 Famotidine* (Famotidine*) 40 Mg Tablet, 40 MG PO HS, #30 TAB 11/08/16 Lanthanum Carbonate (Fosrenol) 1,000 Mg Powd.pack, 1000 MG PO TID, #90 TAB 09/07/16 Nifedipine* (Nifedipine ER*) 90 Mg Tablet.er, 90 MG PO DAILY, TAB 09/07/16 Warfarin Sodium* (Warfarin Sodium*) 4 Mg Tablet, 4 MG PO DAILY, TAB TAKE 1TAB ALTERNATING WITH 2 TABS DAILY 09/07/16 Sitagliptin* (Januvia*) 25 Mg Tablet, 25 MG PO DAILY, #30 TAB 09/07/16 Metoprolol Tartrate* (Lopressor*) 25 Mg Tab, 12.5 MG PO BID, #60 TAB 09/07/16 Folic Acid* (Folic Acid*) 1 Mg Tablet, 2 MG PO DAILY, TAB 05/07/14 Primary Care Provider Tomer Welch MD Pending Labs Laboratory Tests Test 11/19/16 11:53 11/19/16 17:25 11/19/16 20:07 11/20/16 07:10 Bedside Glucose 216mg/dL (70-220) 131mg/dL (70-220) 115mg/dL (70-220) Prothrombin Time 16.3Sec (12.2-14.2) Prothrombin Time Ratio 1.3 INR International Normalized Ratio 1.30 Test 11/20/16 07:54 Bedside Glucose 98mg/dL (70-220) TOMER WELCH MD Nov 20, 2016 10:52
--- NOTE | 2016-11-20 13:03 | CONS ---
Date/Time of Note Date/Time of Note DATE: 11/20/16 TIME: 13:02 Assessment/Plan Assessment/Plan Chief Complaint/Hosp Course assessment/impression - polymicrobial bacteremia due to E. coli, eggerthella (eubacterium), probably due to colitis - Pt had bacillus spp. blood culture from 11/08/2016, this might be a contaminant vs. pathogen: it depends on the species; workup in progress. - diarrhea, abd/pel CT did not show acute process. according to Pt's daughter in law, Pt has had intermittent diarrhea at home - possible suppurative (septic) thrombophlebitis of R internal jugular vein - pain in R lateral neck and RUE x5 weeks, improving slowly per Pt - skin ulcer of posterior scalp, superficial swab did not grow bacteria - possible pseudomonas enteritis - cough, possible rhinitis prior to admission, improved - MS change on 11/12/2016, probably due to benzodiazepines. head CT unremarkable - breast mass seen on CT, evaluated by Dr. Nickerson - ESRD via AVF in RUE - displaced Fx of C2 spine, on neck collar - h/o AVR at [facility] for ?aortic valve stenosis. Transthoracic echo was negative for vegetation on 11/11/2016 - DM - COPD - sacrcoidosis - CAD, CHF - h/o diverticulosis - h/o hemorrhoids - h/o colonic AVM recommendations - pending results: sensitivity of eggerthella (eubacterium) in her blood culture (send-out test, requested to Tatiana, a supervisor plate forming on 11/14/2016), it is usually sensitive to beta-lactam/beta-lactamase inhibitor combination; speciation of bacillus species in her blood culture (send-out test, requested on 11/13/2016) - I recommend renally dosed pip/tazo through 11/23/2016 management d/w Pt, his son and daughter Problems: Consultation Date/Type/Reason Admit Date/Time Nov 10, 2016 at 15:14 Initial Consult Date 11/10/16 Type of Consultation: ID Referring Provider: SOBEIDA ENRIQUEZ MD 24 HR Interval Summary Constitutional: no complaints Detailed Summary Eyes: no complaints ENT: other (R neck pain is rated 6 today) Respiratory: no complaints Cardiovascular: no complaints Gastrointestinal: no complaints, No diarrhea, No nausea Genitourinary: other (anuric) Musculoskeletal: bone/joint pain (R shoulder and arm pain is rated 6 today) Skin: no complaints Neurologic: no complaints Exam/Review of Systems Vital Signs Vitals Vital Signs Date Time Temp Pulse Resp B/P Pulse Ox O2 Delivery O2 Flow Rate FiO2 11/20/16 11:28 97.9 79 17 126/64 92 11/20/16 10:52 Nasal Cannula 2.0 Intake and Output 11/19/16 11/19/16 11/20/16 15:00 23:00 07:00 Intake Total 350 ml 450 ml Balance 350 ml 450 ml Exam Constitutional: alert, oriented, well developed Psych: nl mood/affect, no complaints Head: atraumatic, normocephalic Eyes: nl conjunctiva, nl lids ENMT: nl external ears & nose, nl nasal mucosa & septum Neck: other (+collar) Respiratory: diminished breath sounds Cardiovascular: nl pulses, regular rate and rhythm Gastrointestinal: other (deferred as she was eating lunch) Musculoskeletal: joint tenderness (R deltoid and R supra-clavicular area are TTP (chronic), no induration erythema or fluctuance), nl extremities to inspection Extremities: edema 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: 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, nl mental status, nl speech Skin: other (chronic discoloration of the skin of b/l LE and ankle) Results Result Diagram: 11/17/16 0711/17/16 0706 Results 24 hrs Laboratory Tests Test 11/19/16 17:25 11/19/16 20:07 11/20/16 07:10 11/20/16 07:54 Bedside Glucose 131 115 98 Prothrombin Time 16.3 H Prothrombin Time Ratio 1.3 INR International Normalized Ratio 1.30 Test 11/20/16 12:01 Bedside Glucose 115 Medications Medications Current Medications Ondansetron HCl (Zofran Inj) 4 mg Q6H PRN IV NAUSEA AND/OR VOMITING; Start at 18:30 Acetaminophen (Tylenol Tab) 650 mg Q6H PRN PO PAIN LEVEL 1-3 OR FEVER Last administered on 11/09/16t 00:55; Admin Dose 650 MG; Start 11/08/16 at 18:30 Docusate Sodium (Colace) 100 mg Q12H PRN PO CONSTIPATION; Start 11/08/16 at 18: 30 Diagnostic Test (Pha) (Accu-Chek) 1 02 XX Last administered on 11/13/16 02: 01; Admin Dose 1 EA; Start 11/09/16 at 02:00 Miscellaneous Information 1 ea NOTE XX ; Start 11/08/16 at 19:30 Glucose (Glutose) 15 gm Q15M PRN PO DECREASED GLUCOSE; Start 11/08/16 at 19:30 Glucose (Glutose) 22.5 gm Q15M PRN PO DECREASED GLUCOSE; Start 11/08/16 at 19: 30 Dextrose (D50w Syringe) 25 ml Q15M PRN IV DECREASED GLUCOSE; Start 11/08/16 at 19:30 Dextrose (D50w Syringe) 50 ml Q15M PRN IV DECREASED GLUCOSE; Start 11/08/16 at 19:30 Glucagon (Glucagen) 1 mg Q15M PRN IM DECREASED GLUCOSE; Start 11/08/16 at 19:30 Glucose (Glutose) 15 gm Q15M PRN BUCCAL DECREASED GLUCOSE; Start 11/08/16 at 19 :30 Atorvastatin Calcium (Lipitor) 40 mg QHS PO Last administered on 11/19/16 20:51 ; Admin Dose 40 MG; Start 11/09/16 at 21:00 Famotidine (Pepcid) 40 mg HS PO Last administered on 11/19/16 20:51; Admin Dose 40 MG; Start 11/09/16 at 21:00 Fenofibrate (Tricor) 48 mg QAM PO Last administered on 11/20/16 08:45; Admin Dose 48 MG; Start 11/10/16 at 09:00 Folic Acid (Folic Acid) 2 mg DAILY PO Last administered on 11/20/16 08:45; Admin Dose 2 MG; Start 11/10/16 at 09:00 Gabapentin (Neurontin) 100 mg TID PO Last administered on 11/20/16 12:05; Admin Dose 100 MG; Start 11/09/16 at 21:00 Nifedipine (Procardia Xl) 30 mg BID PO Last administered on 11/19/16 08:59; Admin Dose 30 MG; Start 11/09/16 at 13:30 Epoetin César (Epogen (Esrd)) 10,000 units MoWeFr@17 SC Last administered on 11/18 18:10; Admin Dose 10,000 UNITS; Start 11/09/16 at 17:00 Albuterol (Ventolin Hfa) 2 puff Q4H PRN INH WHEEZING AND SOB Last administered on 11/14/16 23:20; Admin Dose 2 PUFF; Start 11/09/16 at 14:30 Celecoxib (Celebrex) 200 mg DAILY PO Last administered on 11/20/16 08:45; Admin Dose 200 MG; Start 11/10/16 at 09:00 Acetaminophen/ Hydrocodone Bitart ([place] (5/325)) 1 tab Q6H PRN PO pain Last administered on 11/13/16 22:17; Admin Dose 1 TAB; Start 11/09/16 at 14:30 Linagliptin (Tradjenta) 5 mg DAILY PO Last administered on 11/20/16 08:46; Admin Dose 5 MG; Start 11/10/16 at 09:00 Salmeterol Xinafoate/ Fluticasone (Advair 250/50 Diskus) 1 inh BID INH Last administered on 11/20/16 08:47; Admin Dose 1 INH; Start 11/09/16 at 21:00 Collagenase (Santyl) 1 applic DAILY TOP Last administered on 11/20/16 08:46; Admin Dose 1 APPLIC; Start 11/11/16 at 09:00 Collagenase (Santyl) 1 applic DAILY PRN TOP WOUND CARE; Start 11/10/16 at 15:30 Metoprolol Tartrate (Lopressor) 25 mg BID PO Last administered on 11/20/16 08: 46; Admin Dose 25 MG; Start 11/12/16 at 21:00 Lorazepam 0.5 mg 0.5 mg Q6H PRN IV AGITATION/ANXIETY Last administered on 02:26; Admin Dose 0.5 MG; Start 11/12/16 at 16:00 Piperacillin Sod/ Tazobactam Sod (Zosyn 2.25gm/ 50ml (Pmx)) 50 ml @ 100 mls/hr Q12 IVPB Last administered on 11/20/16 08:46; Admin Dose 100 MLS/HR; Start at 21:00; Stop 11/23/16 at 20:59 Prednisone (Prednisone) 2 mg TID PO Last administered on 11/20/16 12:05; Admin Dose 2 MG; Start 11/16/16 at 21:00 Warfarin Sodium (Coumadin) 2 mg DAILY@17 PO Last administered on 11/19/16t 17:26 ; Admin Dose 2 MG; Start 11/18/16 at 17:00 CAROL SETH M.D. Nov 20, 2016 13:03
--- NOTE | 2016-11-20 14:05 | CONS ---
Date/Time of Note Date/Time of Note DATE: 11/20/16 TIME: 14:02 Assessment/Plan Assessment/Plan Chief Complaint/Hosp Course 1. End-stage renal disease on maintenance hemodialysis Monday and Monday. She is being transferred today to [facility]. Arrangements have been made for her to have outpatient hemodialysis at the [facility] dialysis unit. Transportation has been arranged. We will follow her in the outpatient dialysis unit. 2. History of cervical spine vertebral fracture after a fall. 3. Atrial fibrillation controlled rate. 4. Multi-organism bacteremia. She has been afebrile and is on appropriate antibiotics. Problems: Consultation Date/Type/Reason Admit Date/Time Nov 10, 2016 at 15:14 Initial Consult Date 11/10/16 Type of Consultation: ID Referring Provider: SOBEIDA ENRIQUEZ MD 24 HR Interval Summary Free Text/Dictation She is awake and alert. She has no complaints. Constitutional: improved, no complaints Exam/Review of Systems Vital Signs Vitals Vital Signs Date Time Temp Pulse Resp B/P Pulse Ox O2 Delivery O2 Flow Rate FiO2 11/20/16 13:41 78 11/20/16 11:28 97.9 17 126/64 92 11/20/16 10:52 Nasal Cannula 2.0 Intake and Output 11/19/16 11/19/16 11/20/16 15:00 23:00 07:00 Intake Total 350 ml 450 ml Balance 350 ml 450 ml Exam Constitutional: alert, frail, obese, oriented Respiratory: clear to auscultation Cardiovascular: edema, irregular rhythm Extremities: edema Results Result Diagram: 11/17/16 0706 11/17/16 0706 Results 24 hrs Laboratory Tests Test 11/19/16 17:25 11/19/16 20:07 11/20/16 07:10 11/20/16 07:54 Bedside Glucose 131 115 98 Prothrombin Time 16.3 H Prothrombin Time Ratio 1.3 INR International Normalized Ratio 1.30 Test 11/20/16 12:01 Bedside Glucose 115 Medications Medications Current Medications Ondansetron HCl (Zofran Inj) 4 mg Q6H PRN IV NAUSEA AND/OR VOMITING; Start at 18:30 Acetaminophen (Tylenol Tab) 650 mg Q6H PRN PO PAIN LEVEL 1-3 OR FEVER Last administered on 11/09/16t 00:55; Admin Dose 650 MG; Start 11/08/16 at 18:30 Docusate Sodium (Colace) 100 mg Q12H PRN PO CONSTIPATION; Start 11/08/16 at 18: 30 Diagnostic Test (Pha) (Accu-Chek) 1 ea 02 XX Last administered on 11/13/16 02: 01; Admin Dose 1 EA; Start 11/09/16 at 02:00 Miscellaneous Information 1 ea NOTE XX ; Start 11/08/16 at 19:30 Glucose (Glutose) 15 gm Q15M PRN PO DECREASED GLUCOSE; Start 11/08/16 at 19:30 Glucose (Glutose) 22.5 gm Q15M PRN PO DECREASED GLUCOSE; Start 11/08/16 at 19: 30 Dextrose (D50w Syringe) 25 ml Q15M PRN IV DECREASED GLUCOSE; Start 11/08/16 at 19:30 Dextrose (D50w Syringe) 50 ml Q15M PRN IV DECREASED GLUCOSE; Start 11/08/16 at 19:30 Glucagon (Glucagen) 1 mg Q15M PRN IM DECREASED GLUCOSE; Start 11/08/16 at 19:30 Glucose (Glutose) 15 gm Q15M PRN BUCCAL DECREASED GLUCOSE; Start 11/08/16 at 19 :30 Atorvastatin Calcium (Lipitor) 40 mg QHS PO Last administered on 11/19/16 20:51 ; Admin Dose 40 MG; Start 11/09/16 at 21:00 Famotidine (Pepcid) 40 mg HS PO Last administered on 11/19/16 20:51; Admin Dose 40 MG; Start 11/09/16 at 21:00 Fenofibrate (Tricor) 48 mg QAM PO Last administered on 11/20/16 08:45; Admin Dose 48 MG; Start 11/10/16 at 09:00 Folic Acid (Folic Acid) 2 mg DAILY PO Last administered on 11/20/16 08:45; Admin Dose 2 MG; Start 11/10/16 at 09:00 Gabapentin (Neurontin) 100 mg TID PO Last administered on 11/20/16 12:05; Admin Dose 100 MG; Start 11/09/16 at 21:00 Nifedipine (Procardia Xl) 30 mg BID PO Last administered on 11/19/16 08:59; Admin Dose 30 MG; Start 11/09/16 at 13:30 Epoetin César (Epogen (Esrd)) 10,000 units MoWeFr@17 SC Last administered on 11/18 18:10; Admin Dose 10,000 UNITS; Start 11/09/16 at 17:00 Albuterol (Ventolin Hfa) 2 puff Q4H PRN INH WHEEZING AND SOB Last administered on 11/14/16 23:20; Admin Dose 2 PUFF; Start 11/09/16 at 14:30 Celecoxib (Celebrex) 200 mg DAILY PO Last administered on 11/20/16 08:45; Admin Dose 200 MG; Start 11/10/16 at 09:00 Acetaminophen/ Hydrocodone Bitart (Hewitt (5/325)) 1 tab Q6H PRN PO pain Last administered on 11/13/16 22:17; Admin Dose 1 TAB; Start 11/09/16 at 14:30 Linagliptin (Tradjenta) 5 mg DAILY PO Last administered on 11/20/16 08:46; Admin Dose 5 MG; Start 11/10/16 at 09:00 Salmeterol Xinafoate/ Fluticasone (Advair 250/50 Diskus) 1 inh BID INH Last administered on 11/20/16 08:47; Admin Dose 1 INH; Start 11/09/16 at 21:00 Collagenase (Santyl) 1 applic DAILY TOP Last administered on 11/20/16 08:46; Admin Dose 1 APPLIC; Start 11/11/16 at 09:00 Collagenase (Santyl) 1 applic DAILY PRN TOP WOUND CARE; Start 11/10/16 at 15:30 Metoprolol Tartrate (Lopressor) 25 mg BID PO Last administered on 11/20/16 08: 46; Admin Dose 25 MG; Start 11/12/16 at 21:00 Lorazepam 0.5 mg 0.5 mg Q6H PRN IV AGITATION/ANXIETY Last administered on 02:26; Admin Dose 0.5 MG; Start 11/12/16 at 16:00 Piperacillin Sod/ Tazobactam Sod (Zosyn 2.25gm/ 50ml (Pmx)) 50 ml @ 100 mls/hr Q12 IVPB Last administered on 11/20/16 08:46; Admin Dose 100 MLS/HR; Start at 21:00; Stop 11/23/16 at 20:59 Prednisone (Prednisone) 2 mg TID PO Last administered on 11/20/16 12:05; Admin Dose 2 MG; Start 11/16/16 at 21:00 Warfarin Sodium (Coumadin) 2 mg DAILY@17 PO Last administered on 11/19/16 17:26 ; Admin Dose 2 MG; Start 11/18/16 at 17:00 FARIDA BARRERA MD Nov 20, 2016 14:04
== END 2016-11-20 15:06 | DRG 871 ==
LOC: E/R 15:16 → MS4 18:05 → OBSVTOIN 11-10 15:14 → TEL 11-14 21:12
PROVIDERS: ADMIT Internal Medicine; ATTEND Internal Medicine
PROC: 5A1D60Z (ICD-10-PCS; principal; 2016-11-09)
DX: A41.51 Sepsis due to Escherichia coli [E. coli] (principal); J18.9 Pneumonia, unspecified organism; I13.2 Hypertensive heart and chronic kidney disease with heart failure and with stage 5 chronic kidney disease, or end stage renal disease; I48.91 Unspecified atrial fibrillation; I82.C21 Chronic embolism and thrombosis of right internal jugular vein; N18.6 End stage renal disease; I50.30 Unspecified diastolic (congestive) heart failure; J44.9 Chronic obstructive pulmonary disease, unspecified; L89.810 Pressure ulcer of head, unstageable; L89.892 Pressure ulcer of other site, stage 2; Z79.02 Long term (current) use of antithrombotics/antiplatelets; D86.9 Sarcoidosis, unspecified; E11.9 Type 2 diabetes mellitus without complications; E66.9 Obesity, unspecified; Z68.37 Body mass index [BMI] 37.0-37.9, adult; G47.33 Obstructive sleep apnea (adult) (pediatric); I25.10 Atherosclerotic heart disease of native coronary artery without angina pectoris; I44.7 Left bundle-branch block, unspecified; L98.499 Non-pressure chronic ulcer of skin of other sites with unspecified severity; Z95.2 Presence of prosthetic heart valve; L89.890 Pressure ulcer of other site, unstageable; J40 Bronchitis, not specified as acute or chronic; A41.89 Other specified sepsis; N63 Unspecified lump in breast; S12.110D Anterior displaced Type II dens fracture, subsequent encounter for fracture with routine healing; R45.1 Restlessness and agitation; K52.89 Other specified noninfective gastroenteritis and colitis; B96.5 Pseudomonas (aeruginosa) (mallei) (pseudomallei) as the cause of diseases classified elsewhere; Z99.2 Dependence on renal dialysis
CPT/HCPCS: 36415; 70450; 71010; 72125; 73200; 74176; 80048; 80053; 80202; 82728; 82962; 83540; 83605; 83735; 83880; 84100; 84145; 84443; 84484; 85025; 85610; 85651; 85730; 87040; 87045; 87070; 87075; 87400; 90935; 93005; 93306; 93971; 96374; 96375; 97110; 97116; 97161; 97530; G0378; J0692; J1644; J1815; J2060; J2543; J2916; J3370; J7030; J7512; Q4081; Q9967

== ENCOUNTER → 2016-12-29 | Outpatient (CLI) | payer MEDICARE, OTHER ==
[~2016-12-29] MED LIST changes: +ADV25050 INHALATION; +ALBU18HF INHALATION; +ATOR40TA68 PO; +CELE200C PO; +FAMO40TA52 PO; +FENO48TA4 PO; +GABA100C14 PO; +HYDR-906 PO; +LINA5TAB PO; +PRED1TAB2 PO; +SEVE800T7 PO; -SIMV40TA2 PO; +WARF2TAB PO
--- NOTE | 2016-12-30 15:44 | RADRPT ---
PROCEDURE: CT Cervical Spine without contrast. CLINICAL INDICATION: 76-year-old female with C2 fracture. TECHNIQUE: A CT of the cervical spine was performed on a [employer] V[facility] [address] scanne r utilizing thin section axial images from the skull base through the thoracic inlet. Sagittal and coronal reformatted images were made. The CTDIvol is 22.03 mGy and the DLP is 385.27 mGycm. COMPARISON: CT scan cervical spine 11/08/2016. FINDINGS: There are vascular calcifications in the distal vertebral arteries. The mastoid air cells and base o f the skull are intact. There is narrowing of the atlantoaxial joint. The C1 vertebral body is intac t. C2-3: A type 3 fracture is identified involving the odontoid process of C2 which is stable in positi on alignment when compared to 11/08/2016. There has been interval progress and healing of the fractu re line extending from the odontoid process into the left lateral mass of C2. There is a persistent but stable 2.2 mm sagittal offset at the level of the inferior endplate of C2 between the ventral an d dorsal fracture fragments. There is a 3 mm offset between the right sided dorsal fracture fragment and ventral left-sided fracture fragment. Approximately 3.4 mm of dorsal displacement of the C2 spi nous process is noted in the sagittal plane. This is unchanged. There is bony narrowing of the right nerve root canal. The left nerve root canal is unremarkable. Th ere are degenerative changes in the articular facets bilaterally. There are dorsal bridging osteophy whitney at C2-3. The AP diameter of the neural canal measures 9 mm. This is unchanged. A bony central ca nal stenosis may be present and would be better evaluated with an MRI. There are degenerative changes in the facets bilaterally. The neural canal remains patent C3-4: There is disc space narrowing. The neural canal is unremarkable. There is a bony right nerve r oot canal stenosis. The left nerve root canal is normal. There are vascular calcifications in the ri ght and left vertebral arteries at this level. There are vascular calcifications in the left carotid bulb. The C4 vertebral body is intact. C4-5: There is generalized disc space narrowing with mild ventral spondylosis. There is a bony right nerve root canal stenosis with a 3.4 mm right paracentral dorsal disc osteophyte complex. The left nerve root canal remains patent. C5 is intact. There are degenerative changes in the articular facet s. C5-6: There is mild physiologic subluxation of C5-C6 with mild disc space narrowing. No significant disk bulge or protrusion is evident. The neural canal and nerve root foramina are normal. There are ventral osteophytes off of C6. C6 is intact. C6-7: There is generalized disc space narrowing and ventral spondylosis. No significant disk bulge or protrusion is evident. The neural canal and nerve root foramina are unremarkable. There are degen erative changes in the articular facets. There are ventral osteophytes off of C7. C7 is intact. C7-T1: There is disc space narrowing with ventral spondylosis. No significant disk bulge or protrusi on is evident. The neural canal and nerve root foramina are unremarkable. T1 is intact. The other vi sible thoracic vertebra are intact. There are calcifications in the left supraclavicular area which are unchanged and benign in appearan ce. These may be the result of calcified lymph nodes. The vocal cords, trachea and visible lung smith are unremarkable. There are vascular calcifications in the aortic arch and proximal subclavian arteries. IMPRESSION: 1. Stable position and alignment with favorable progressive healing of the displaced type 3 odontoi d fracture of C2 as compared to 11/08/2016. 2. Right paracentral dorsal bridging osteophytes at C2-3 with reduced AP diameter of the neural can al measuring 9 mm at this level. An MRI can be considered for evaluation to evaluate a potential bon y central canal stenosis if clinically indicated. 3. Osteoarthritis of the cervical spine. 4. Atherosclerotic vascular disease involving the carotid bulbs. 5. Calcifications in the left supraclavicular area which may be the result of calcified lymph nodes. RPTAT:AAJJ Physician Brooke Date Time Electronically viewed and signed by Physician Brooke on 12/30/2016 15:44 REEMA/
== END | disposition home or self-care (01) ==
LOC: C/S 11:15
PROVIDERS: ATTEND Neurological Surgery
DX: S12.100D Unspecified displaced fracture of second cervical vertebra, subsequent encounter for fracture with routine healing (principal); S12.200D Unspecified displaced fracture of third cervical vertebra, subsequent encounter for fracture with routine healing; X58.XXXD Exposure to other specified factors, subsequent encounter
CPT/HCPCS: 72125

== ENCOUNTER 2017-04-02 14:32 | Emergency (ER) | payer MEDICARE, OTHER ==
[~2017-04-02] VITALS: Ht 160 cm; Wt 86.0 kg
[2017-04-02 14:34] VITALS: Ht 160 cm; Wt 86.0 kg
--- NOTE | 2017-04-02 15:00 | ERD ---
ER Documentation Chief Complaint Chief Complaint cough x 3 days HPI The patient is a 76-year-old female, presenting to the ER because of intermittent dry cough for the last 3 days, complaining of sleeping a lot for the last week. She has chronic cough but the cough is worse for the last 2 days , denies fever, chills, neck pain, chest pain, dyspnea, abdominal pain, vomiting , dysuria, diarrhea. She fell on her buttock about a week ago, denies head trauma, neck pain. She does not smoke nor drink. She is taking pain medication for her recent shingles but she does not know the name Medical history: CAD, COPD, hypertension, history of CHF, atrial fibrillation, dyslipidemia, diabetes mellitus sarcoidosis, history of adrenal insufficiency, history of cervical fracture Surgical history: Stent PCI ROS All systems reviewed and are negative except as per history of present illness. Medications Home Meds Reported Medications Simvastatin* (Zocor*) 40 Mg Tablet, 40 MG PO QHS, #30 TAB 04/02/17 Gabapentin* (Gabapentin*) 400 Mg Capsule, 800 MG PO BID, #180 CAP 04/02/17 Fenofibrate* (Fenofibrate*) 200 Mg Cap, 200 MG PO DAILY, CAP 04/02/17 Albuterol Sulfate* (Ventolin HFA*) 18 Gm Hfa.aer.ad, 2 PUFF INHALATION Q4H, #1 INHALER 11/08/16 Sitagliptin* (Januvia*) 25 Mg Tablet, 25 MG PO DAILY, #30 TAB 09/07/16 Metoprolol Tartrate* (Lopressor*) 25 Mg Tab, 12.5 MG PO BID, #60 TAB 09/07/16 Discontinued Reported Medications Prednisone* (Prednisone*) 1 Mg Tablet, 1 MG PO TID, TAB TAKE 4MG-QAM, 1.5MG-QPM, 1MG-QHS. 11/08/16 Warfarin Sodium* (Coumadin*) 2 Mg Tablet, 4 MG PO DAILY, TAB 11/08/16 Celecoxib* (Celebrex*) 200 Mg Capsule, 200 MG PO DAILY, CAP 11/08/16 Linagliptin (TRADJENTA) 5 Mg Tablet, 5 MG PO DAILY, TAB 11/08/16 Sevelamer Carbonate* (Renvela*) 800 Mg Tablet, 0.8 GM PO WITH MEALS, TAB 11/08/16 Fenofibrate Nanocrystallized* (Fenofibrate*) 48 Mg Tablet, 48 MG PO QAM, TAB 11/08/16 Hydrocodone/Acetaminophen (Badger 5-325 Tablet) 1 Each Tablet, 1 EACH PO Q6H, TAB 11/08/16 Salmeterol Xinaf/Fluticasone* (Advair*) 250-50 Diskus Inhaler, 1 INH INHALATION BID, #1 INHALER 11/08/16 Atorvastatin* (Atorvastatin*) 40 Mg Tablet, 40 MG PO QHS, #30 TAB 11/08/16 Gabapentin* (Gabapentin*) 100 Mg Capsule, 100 MG PO TID, #90 CAP 11/08/16 Famotidine* (Famotidine*) 40 Mg Tablet, 40 MG PO HS, #30 TAB 11/08/16 Lanthanum Carbonate (Fosrenol) 1,000 Mg Powd.pack, 1000 MG PO TID, #90 TAB 09/07/16 Nifedipine* (Nifedipine ER*) 90 Mg Tablet.er, 90 MG PO DAILY, TAB 09/07/16 Warfarin Sodium* (Warfarin Sodium*) 4 Mg Tablet, 4 MG PO DAILY, TAB TAKE 1TAB ALTERNATING WITH 2 TABS DAILY 09/07/16 Folic Acid* (Folic Acid*) 1 Mg Tablet, 2 MG PO DAILY, TAB 05/07/14 Allergies Allergies: Coded Allergies: No Known Allergy (Unverified , 04/02/17) pt states she has no known allergies PMhx/Soc History of Surgery: Yes (STENT) Anesthesia Reaction: No Hx 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 Disorder: No Hx Respiratory Disorders: Yes (COPD) Hx Cardiac Disorders: Yes (HTN, DIASTOLIC DYSFUNCTION, AFIB) Hx Psychiatric Problems: No Hx Miscellaneous Medical Probl: No Hx Alcohol Use: No Hx Substance Use: No Hx Tobacco Use: No Physical Exam Vitals Vital Signs Date Time Temp Pulse Resp B/P Pulse Ox O2 Delivery O2 Flow Rate FiO2 04/02/17 18:52 69 20 128/65 97 Room Air Nasal Cannula 04/02/17 18:04 77 20 98 Nasal Cannula 2.0 04/02/17 17:18 77 18 131/69 96 Nasal Cannula 2.0 04/02/17 15:16 Nasal Cannula 2 04/02/17 14:34 98.7 64 20 120/49 92 Physical Exam Const: No acute distress. Head: Atraumatic. Eyes: Normal Conjunctiva. ENT: Normal External Ears, Nose and Mouth. Neck: Full range of motion. No meningismus. Resp: Minimal expiratory wheezes bilaterally. Cardio: Irregularly irregular Abd: Soft, non distended, normal bowel sounds, non tender. Ecchymosis Skin: No petechiae or rashes. Back: No midline or flank tenderness. Ext: No cyanosis, or edema. Neur: Awake and alert. No focal deficit Psych: Normal Mood and Affect. Result Diagram: 04/02/17 1540 04/02/17 1540 Results 24 hrs Laboratory Tests Test 04/02/17 15:40 04/02/17 16:00 White Blood Count 6.710^3/ul Red Blood Count 3.0410^6/ul Hemoglobin 10.0g/dl Hematocrit 30.6% Mean Corpuscular Volume 100.7fl Mean Corpuscular Hemoglobin 32.9pg Mean Corpuscular Hemoglobin Concent 32.7g/dl Red Cell Distribution Width 19.0% Platelet Count 41696^3/UL Mean Platelet Volume 10.4fl Neutrophils % 65.4% Lymphocytes % 21.8% Monocytes % 8.8% Eosinophils % 2.7% Basophils % 0.9% Nucleated Red Blood Cells % 0.0/100WBC Neutrophils # 4.410^3/ul Lymphocytes # 1.510^3/ul Monocytes # 0.610^3/ul Eosinophils # 0.210^3/ul Basophils # 0.110^3/ul Nucleated Red Blood Cells # 0.010^3/ul Prothrombin Time 14.0Sec Prothrombin Time Ratio 1.1 INR International Normalized Ratio 1.07 Activated Partial Thromboplast Time 33.9Sec Sodium Level 138mmol/L Potassium Level 3.7mmol/L Chloride Level 96mmol/L Carbon Dioxide Level 29mmol/L Anion Gap 17 Blood Urea Nitrogen 29mg/dl Creatinine 7.49mg/dl Glucose Level 95mg/dl Calcium Level 9.1mg/dl Total Bilirubin 0.2mg/dl Direct Bilirubin 0.00mg/dl Indirect Bilirubin 0.2mg/dl Aspartate Amino Transf (AST/SGOT) 22IU/L Alanine Aminotransferase (ALT/SGPT) 25IU/L Alkaline Phosphatase 44IU/L Troponin I 0.091ng/ml Total Protein 7.1g/dl Albumin 3.1g/dl Globulin 4.00g/dl Albumin/Globulin Ratio 0.77 Lactic Acid Level 2.6mmol/L Current Medications Medications (Trade) Dose Ordered Sig/Oneyda Route PRN Reason Start Time Stop Time Status Last Admin Dose Admin Levalbuterol (Xopenex Neb) 1.25 mg ONCE ONCE HHN 04/02/17 18:00 04/02/17 18:01 DC 04/02/17 17:56 Ipratropium [place] 0.5 mg 0.5 mg ONCE ONCE HHN 04/02/17 18:00 04/02/17 18:01 DC 04/02/17 17:56 Piperacillin Sod/ Tazobactam Sod 50 ml @ 100 mls/hr ONCE ONCE IVPB 04/02/17 18:00 04/02/17 18:29 Cancel Azithromycin (Zithromax 500mg/ NS (Pmx)) 250 ml @ 250 mls/hr ONCE ONCE IVPB 04/02/17 18:00 04/02/17 18:59 Cancel Erythromycin (Erythromycin Base (Ec)) 1,000 mg ONCE ONCE PO 04/02/17 18:00 04/02/17 18:01 DC 04/02/17 18:20 Procedures/[place] [id number] Radiology Main Line: [phone] DIAGNOSTIC IMAGING REPORT Patient: ABBIE HATFIELD : 1940 Age: 76 Sex: F MR #: [id number] DOS: 04/02/17 [facility] Ordering MD: SOBEIDA JOSEPH MD Location: E/R Room/Bed: PROCEDURE: XR Chest. CLINICAL INDICATION: Sepsis . TECHNIQUE: Single frontal chest x-ray. COMPARISON: CR CHEST 04/20/2015; CR CHEST 04/12/2015; CR CHEST 05/08/2014 FINDINGS: There are low lung volumes with hilar vascular and interstitial congestion. Prominent interstitial markings are present likely chronic or senescent in nature. . Cardiomegaly with calcific atherosclerosis of the aorta is present. There has been interval placement of a transcatheter aortic valve replacement.. There are calcified supraclavicular lymph nodes bilaterally. Calcified nodes are also seen in the aortopulmonary window.. The osseous structures are intact. IMPRESSION: Cardiomegaly with hilar vascular and interstitial congestion. Interval transcatheter aortic valve replacement. Old granulomatous calcifications in the bilateral supraclavicular and aortopulmonary window regions. RPTAT: QQ .Grant Holley MD, Date Time Electronically viewed and signed by .Grant Holley MD, MD on 04/02/2017 16:09 .L/ CC: SOBEIDA JOSEPH MD [place] [id number] Radiology Main Line: [phone] DIAGNOSTIC IMAGING REPORT Patient: ABBIE HATFIELD : 1940 Age: 76 Sex: F MR #: [id number] DOS: 04/02/17 [facility] Ordering MD: SOBEIDA JOSEPH MD Location: E/R Room/Bed: PROCEDURE: CT cervical spine without contrast. CLINICAL INDICATION: Neck pain TECHNIQUE: CT of the cervical spine without contrast was performed on a multidetector CT scanner, with multiplanar reformats. One or more of the following dose reduction techniques were used: Automated exposure control, adjustment in mA and / or kV according to patient size, use of iterative reconstructive technique. CTDIvol = 22 mGy and DLP = 359 mGy-cm. DICOM images are available. COMPARISON: CT cervical spine 12/29/2016 FINDINGS: There is generalized osteopenia. There is chronic type 3 odontoid fracture deformity of C2 involving the body extending up to the base of the dens with mild chronic deformity posteriorly on the right with bridging ossification visualized. No acute fracture or dislocation is seen. Alignment is unchanged. There is levoconvex scoliosis. The rest of the vertebral bodies are maintained in height. There are anterior atlantoaxial joint degenerative changes and anterior osteophytes at C5-6 and C6-7 with mild moderate disc space narrowing at C3-4, C5-6, C6-7. Calcifications in the left supraclavicular region which may be related to calcified lymph nodes, atherosclerotic calcifications and focal calcification in the right internal jugular vein are noted. Additional findings by levels: C2-3: Chronic posterior deformity on the right with bridging osteophytes and ligamentum flavum hypertrophy. Moderate central canal stenosis. Facet arthropathy. Moderate - severe right, mild left foraminal narrowing. C3-4: Posterior disk/osteophyte. Mild to moderate central canal stenosis. Uncovertebral osteophytes and facet arthropathy with severe right foraminal narrowing. C4-5: Facet arthropathy. No central canal stenosis or foraminal narrowing identified. C5-6: Facet arthropathy. No central canal stenosis or foraminal narrowing identified. C6-7: Facet arthropathy. No central canal stenosis or foraminal narrowing identified. C7-T1: Facet arthropathy. No central canal stenosis or foraminal narrowing identified.. No significant change is visualized. IMPRESSION: 1. No acute fracture/dislocation identified. 2. 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 3. Multilevel cervical spondylosis/degenerative enthesopathy. 4. Moderate central canal stenosis at C2-3, mild to moderate central canal stenosis at C3-4. 5. Foraminal narrowing at C2-3, C3-4 detailed above. 6. Osteopenia. 7. Levoconvex cervical scoliosis. 8. No significant change. RPTAT: HESO .Edinson Mansfield MD, Date Time Electronically viewed and signed by .Edinson Mansfield MD, MD on 04/02/2017 17:11 .O/ CC: SOBEIDA JOSEPH MD [place] [address] Radiology Main Line: [phone] DIAGNOSTIC IMAGING REPORT Patient: ABBIE HATFIELD : 1940 Age: 76 Sex: F MR #: [id number] DOS: 04/02/17 [facility] Ordering MD: SOBEIDA JOSEPH MD Location: E/R Room/Bed: PROCEDURE: CT brain without contrast CLINICAL INDICATION: Altered level of consciousness TECHNIQUE: CT of the brain without contrast performed on a multidetector CT scanner. One or more of the following dose reduction techniques were used: Automated exposure control, adjustment in mA and / or kV according to patient size, use of iterative reconstructive technique. CTDIvol = 44 mGy; DLP = 720 mGy-cm. DICOM images are available. COMPARISON: CT brain 11/12/2016 FINDINGS: No acute intracranial hemorrhage is identified. No extra-axial fluid collection is seen. There is no mass effect. No midline shift is identified. The ventricles and sulci are mildly enlarged compatible with volume loss. There are mild to moderate areas of hypodensity in the periventricular - deep white matter which are nonspecific but suggestive of chronic small vessel ischemic changes. Visualized markham-white junctions appear preserved. Partly empty sella is noted. Atherosclerotic calcifications of the proximal intracranial arteries are noted. Calvarium and skull base are intact. Of the partial right mastoid air cell opacification is noted. IMPRESSION: 1. No acute intracranial pathology identified. 2. Mild generalized volume loss, with mild to moderate chronic small vessel ischemic changes. RPTAT: HESO .Edinson Mansfield MD, MD Date Time Electronically viewed and signed by .Edinson Mansfield MD, MD on 04/02/2017 16:48 .O/ CC: SOBEIDA JOSEPH MD EKG: Read by emergency physician Rate/Rhythm: Atrial Fibrillation 71 beats/min QRS, ST, T-waves: No ST elevation, no T inversion, LAD, RBBB Impression: Abnormal EKG MEDICAL MAKING DECISION: The patient is a 76-year-old female, presenting to the ER because of cough, elevated lactic acid of unclear significance. She was treated with xopenex 1.25 mg and atrovent 0.5 mg with good response. She no longer make urine and declined the cath ua. The differential diagnoses considered include but are not limited to overmedicated with pain medication, fluid overload, sepsis, asthma, COPD, pneumonia, pulmonary embolus, pleural effusion, congestive heart failure. Consultation: I discussed the patient with her physician Dr. Welch at 5:30 PM, who made aware of the lab, the treatment, the patient condition. He recommended erythromycin 1 g p.o. and discharged the patient. He would follow- up her in the office in the morning. She and family agreed with the plan Departure Diagnosis: Primary Impression: Cough Additional Impressions: Elevated lactic acid level Subtherapeutic anticoagulation Anemia in chronic kidney disease Condition: Good Comments I discussed the findings with the patient. I advised the patient to follow-up with the primary physician in the morning and return if any concern. Disclaimer: Inadvertent spelling and grammatical errors are likely due to EHR/ dictation software use and do not reflect on the overall quality of patient care. Also, please note that the electronic time recorded on this note does not necessarily reflect the actual time of the patient encounter. SOBEIDA JOSEPH MD Apr 02, 2017 15:00
[2017-04-02] MEDS ORDERED: FENO200 PO (15:27)
[2017-04-02] MEDS ORDERED: GABA400C14 PO (15:27)
[2017-04-02] MEDS ORDERED: SIMV40TA2 PO (15:28)
--- NOTE | 2017-04-02 16:09 | RADRPT ---
PROCEDURE: XR Chest. CLINICAL INDICATION: Sepsis . TECHNIQUE: Single frontal chest x-ray. COMPARISON: CR CHEST 04/20/2015; CR CHEST 04/12/2015; CR CHEST 05/08/2014 FINDINGS: There are low lung volumes with hilar vascular and interstitial congestion. Prominent interstitial m arkings are present likely chronic or senescent in nature. . Cardiomegaly with calcific atherosclero sis of the aorta is present. There has been interval placement of a transcatheter aortic valve repla cement.. There are calcified supraclavicular lymph nodes bilaterally. Calcified nodes are also seen in the aortopulmonary window.. The osseous structures are intact. IMPRESSION: Cardiomegaly with hilar vascular and interstitial congestion. Interval transcatheter aortic valve replacement. Old granulomatous calcifications in the bilateral supraclavicular and aortopulmonary window regions. RPTAT: QQ .Grant Holley MD, MD Date Time Electronically viewed and signed by .Grant Holley MD, MD on 04/02/2017 16:09 .L/
[2017-04-02 16:19] LABS: BASOPHIL # 0.1 10^3/ul (0.0-0.1); BASOPHILS % 0.9 % (0.0-2.0); EOSINOPHILS # 0.2 10^3/ul (0.0-0.5); EOSINOPHILS % 2.7 % (0.0-7.0); HEMATOCRIT 30.6 % (37.0-47.0); LYMPHOCYTES # 1.5 10^3/ul (0.8-2.9); LYMPHOCYTES % 21.8 % (15.0-51.0); MEAN CORPUSCULAR HEMOGLOBIN 32.9 pg (29.0-33.0); MEAN CORPUSCULAR HGB CONC 32.7 g/dl (32.0-37.0); MEAN CORPUSCULAR VOLUME 100.7 fl (82.0-101.0); MEAN PLATELET VOLUME 10.4 fl (7.4-10.4); MONOCYTE # 0.6 10^3/ul (0.3-0.9); MONOCYTES % 8.8 % (0.0-11.0); NEUTROPHIL # 4.4 10^3/ul (1.6-7.5); NEUTROPHILS % 65.4 % (39.0-77.0); PLATELET COUNT 266 10^3/UL (140-415); RED BLOOD COUNT 3.04 10^6/ul (4.20-5.40); WHITE BLOOD COUNT 6.7 10^3/ul (4.8-10.8)
[2017-04-02 16:28] LABS: INR 1.07; PT RATIO 1.1
[2017-04-02 16:29] LABS: PARTIAL THROMBOPLASTIN TIME 33.9 Sec (25.0-35.0)
[2017-04-02 16:33] LABS: ALBUMIN 3.1 g/dl (3.3-4.9); ALBUMIN/GLOBULIN RATIO 0.77; BILIRUBIN,INDIRECT 0.2 mg/dl (0-1.1); BILIRUBIN,TOTAL 0.2 mg/dl (0.2-1.3); CALCIUM 9.1 mg/dl (8.4-10.2); CREATININE 7.49 mg/dl (0.44-1.00); POTASSIUM 3.7 mmol/L (3.5-5.1); TOTAL PROTEIN 7.1 g/dl (6.1-8.1)
[2017-04-02 16:43] LABS: TROPONIN-I 0.091 ng/ml (0.00-0.12)
--- NOTE | 2017-04-02 16:49 | RADRPT ---
PROCEDURE: CT brain without contrast CLINICAL INDICATION: Altered level of consciousness TECHNIQUE: CT of the brain without contrast performed on a multidetector CT scanner. One or more o f the following dose reduction techniques were used: Automated exposure control, adjustment in mA an d / or kV according to patient size, use of iterative reconstructive technique. CTDIvol = 44 mGy; D LP = 720 mGy-cm. DICOM images are available. COMPARISON: CT brain 11/12/2016 FINDINGS: No acute intracranial hemorrhage is identified. No extra-axial fluid collection is seen. There is no mass effect. No midline shift is identified. The ventricles and sulci are mildly enlarged compatible with volume loss. There are mild to moderate areas of hypodensity in the periventricular - deep white matter which are nonspecific but suggestive of chronic small vessel ischemic changes. Visualized markham-white junctio ns appear preserved. Partly empty sella is noted. Atherosclerotic calcifications of the proximal intracranial arteries are noted. Calvarium and skull base are intact. Of the partial right mastoid air cell opacification is noted. IMPRESSION: 1. No acute intracranial pathology identified. 2. Mild generalized volume loss, with mild to moderate chronic small vessel ischemic changes. RPTAT: HESO .Edinson Mansfield MD, MD Date Time Electronically viewed and signed by .Edinson Mansfield MD, on 04/02/2017 16:48 .O/
--- NOTE | 2017-04-02 17:11 | RADRPT ---
PROCEDURE: CT cervical spine without contrast. CLINICAL INDICATION: Neck pain TECHNIQUE: CT of the cervical spine without contrast was performed on a multidetector CT scanner, w ith multiplanar reformats. One or more of the following dose reduction techniques were used: Automa tiffani exposure control, adjustment in mA and / or kV according to patient size, use of iterative recon structive technique. CTDIvol = 22 mGy and DLP = 359 mGy-cm. DICOM images are available. COMPARISON: CT cervical spine 12/29/2016 FINDINGS: There is generalized osteopenia. There is chronic type 3 odontoid fracture deformity of C2 involving the body extending up to the base of the dens with mild chronic deformity posteriorly on the right with bridging ossification visualized. No acute fracture or dislocation is seen. Alignment is unchan ged. There is levoconvex scoliosis. The rest of the vertebral bodies are maintained in height. There are anterior atlantoaxial joint degenerative changes and anterior osteophytes at C5-6 and C6-7 with mild moderate disc space narrowing at C3-4, C5-6, C6-7. Calcifications in the left supraclavicular region which may be related to calcified lymph nodes, atherosclerotic calcifications and focal calci fication in the right internal jugular vein are noted. Additional findings by levels: C2-3: Chronic posterior deformity on the right with bridging osteophytes and ligamentum flavum hyper trophy. Moderate central canal stenosis. Facet arthropathy. Moderate - severe right, mild left fora lakshmi narrowing. C3-4: Posterior disk/osteophyte. Mild to moderate central canal stenosis. Uncovertebral osteophytes and facet arthropathy with severe right foraminal narrowing. C4-5: Facet arthropathy. No central canal stenosis or foraminal narrowing identified. C5-6: Facet arthropathy. No central canal stenosis or foraminal narrowing identified. C6-7: Facet arthropathy. No central canal stenosis or foraminal narrowing identified. C7-T1: Facet arthropathy. No central canal stenosis or foraminal narrowing identified.. No significant change is visualized. IMPRESSION: 1. No acute fracture/dislocation identified. 2. 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 3. Multilevel cervical spondylosis/degenerative enthesopathy. 4. Moderate central canal stenosis at C2-3, mild to moderate central canal stenosis at C3-4. 5. Foraminal narrowing at C2-3, C3-4 detailed above. 6. Osteopenia. 7. Levoconvex cervical scoliosis. 8. No significant change. RPTAT: HESO .Edinson Mansfield MD, Date Time Electronically viewed and signed by .Edinson Mansfield MD, on 04/02/2017 17:11 .O/
[2017-04-02] MEDS ORDERED: PIPER-TAZO 2.25 GM (PMX) 50 ML IVPB ONE (18:00)
[2017-04-02] MEDS ORDERED: ERYTHROMYCIN BASE (EC) 500 MG TAB PO ONE (18:00)
[2017-04-02] MEDS ORDERED: AZITHROMYCIN 500MG/NS (PMX) 250 ML IVPB ONE (18:00)
[2017-04-02] MEDS ORDERED: LEVALBUTEROL (NEB) 1.25 MG/0.5 ML AMP HHN ONE (18:00)
[2017-04-02] MEDS ORDERED: IPRATROPIUM (NEB) 0.5 MG/2.5 ML AMP HHN ONE (18:00)
[2017-04-02 18:52] VITALS: BP 128/65; PULSE 69; RESP 20
== END 2017-04-02 18:55 | disposition home or self-care (01) ==
LOC: E/R 14:32
DX: R05 Cough (principal); R74.0 Nonspecific elevation of levels of transaminase and lactic acid dehydrogenase [LDH]; R79.89 Other specified abnormal findings of blood chemistry; D63.1 Anemia in chronic kidney disease; N18.9 Chronic kidney disease, unspecified; I25.10 Atherosclerotic heart disease of native coronary artery without angina pectoris; J44.9 Chronic obstructive pulmonary disease, unspecified; I12.9 Hypertensive chronic kidney disease with stage 1 through stage 4 chronic kidney disease, or unspecified chronic kidney disease; I50.9 Heart failure, unspecified; E11.22 Type 2 diabetes mellitus with diabetic chronic kidney disease; R51 Headache; Z98.61 Coronary angioplasty status; Z79.84 Long term (current) use of oral hypoglycemic drugs; Z79.01 Long term (current) use of anticoagulants
CPT/HCPCS: 70450; 71010; 72125; 80053; 83605; 84484; 85025; 85610; 85730; 87040; 93005; 94664; J2543